=== PATIENT | female | born 1965 | race Caucasian/White ===

== ENCOUNTER 2017-04-18 17:02 | Emergency (ER) | payer MEDICARE, MEDICAID ==
[~2017-04-18] VITALS: Ht 175.3 cm; Wt 122.5 kg
[~2017-04-18 17:02] MED LIST: ALBU17AE3 IH; AMIT100T2 PO; AMIT50TA3 PO; BLAC80CA PO; CEPH500C PO; CIPR-17 PO; CLOT45CR28 VG; CPR500T PO; CYCL10TA9 PO; DICL75TA2 PO; DULO30CA3 PO; FLT05NA16 NSEACH; FLUC100T PO; FURO20TA4 PO; FURO40TA4 PO; GABA-486 PO; GABA-488 PO; GBPN300C; GLIP10TA13 PO; HYDR-757 PO; HYDR1TAB PO; IBUP-30 PO; INSU100I14 SC; INSU100I14 SQ; INSU100I16 SQ; INSU100I5 SC; LEVE1U SQ; LEVO500T78 PO; LIRA0.6P SQ; LISI-596 PO; LISI10TA2; LSNP10T PO; MECL12.579 PO; MELO-195 PO; METF-380 PO; NITR100C3 PO; OMEG1CAP51 PO; PANT40TA PO; PARO20TA4 PO; PHEN100T17 PO; PHEN200T27 PO; POTA10TA36 PO; PREG50C PO; PRV20T PO; RABE20TA PO; RABE20TA27 PO; SULF-222 PO; TRAM50TA2 PO; anti-depressant
--- OUTSIDE RECORDS SUMMARY | 2017-04-18 17:08 | XMS REPORT ---
Author Author ALBIN RENAE Organization [employer] Address Unknown Phone Unavailable Care Team Providers Care President Financial Institution Name Role Phone ALBIN RENAE CP Unavailable Allergies No Known Allergies Problems Problem Type Condition ICD-9 Code Onset Dates Condition Status Problem Diabetes with neurological manifestations, type II or unspecified type , uncontrolled 250.62 Active Problem Dermatophytosis of foot 110.4 Active Problem Insomnia, unspecified 780.52 Active Problem Hypertension 401.9 Active Problem Diabetes with renal manifestations, type II or unspecified type, uncontrolled 250.42 Active Problem Type 2 diabetes mellitus with pressure callus 250.80 Active Problem Dyspepsia and other specified disorders of function of stomach 536.8 Active Problem Other malaise and fatigue 780.79 Active Problem Coronary atherosclerosis of unspecified type of vessel, [place] or graft 414.00 Active Problem Polyneuropathy in diabetes 357.2 Active Problem 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
--- OUTSIDE RECORDS SUMMARY | 2017-04-18 17:08 | XMS REPORT ---
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 Active Problem Polyneuropathy in diabetes 357.2 Active Problem Dyspepsia and other specified disorders of function of stomach 536.8 Active Problem Diabetes with renal manifestations, type II or unspecified type, uncontrolled 250.42 Active Problem Coronary atherosclerosis of unspecified type of vessel, [place] or graft 414.00 Active Problem 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
--- OUTSIDE RECORDS SUMMARY | 2017-04-18 17:08 | XMS REPORT ---
Author Author ALBIN RENAE [facility] eClinicalWorks Address Unknown Phone Unavailable Care Team Providers Care Sole Assessor Name Role Phone ALBIN RENAE CP Unavailable Allergies No Known Allergies Problems Problem Type Condition Code Onset Dates Condition Status Assessment 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 Active Assessment intermission coordinator 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 Active Problem Essential hypertension I10 Active Problem Dyspepsia R10.13 Active Problem shelter 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 Active Problem Anxiety F41.9 Active Problem 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
--- OUTSIDE RECORDS SUMMARY | 2017-04-18 17:08 | XMS REPORT ---
Author Author ALBIN RENAE [facility] eClinicalWorks Address Unknown Phone Unavailable Care Team Providers Care Universal Grinder Tool Name Role Phone ALBIN RENAE CP Unavailable Allergies, Adverse Reactions, Alerts Substance Reaction Event Type Morphine Sulfate Info Not Available Drug Allergy Dilaudid Info Not Available Drug Allergy Aspirin convulsions Drug Allergy Influenza Virus Vaccine hives Drug Allergy Amlodipine 5 Mg Tablet orthostatic hypotension. Non Drug Allergy Metformin 500 Mg Tablet,er Augusto.retention 24 Hr diarrhea Non Drug Allergy Problems Problem Type Condition Code Onset Dates Condition Status Problem Dyspepsia R10.13 Active Problem retirement 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 Active Problem Essential hypertension I10 Active Problem Foot swelling M79.89 Active Problem Stress incontinence in female N39.3 Active Problem Cough R05 Active Problem Skin infection L08.9 Active Problem Allergic rhinitis J30.9 Active Problem Non-healing skin lesion L98.9 Active Problem Type 2 diabetes mellitus with other skin ulcer E11.622 Active Assessment Type 2 diabetes mellitus with other skin ulcer E11.622 Active Assessment Anxiety F41.9 Active Assessment Essential hypertension I10 Active Assessment Cough R05 Active Problem 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 Active Problem Anxiety F41.9 Active Assessment Chronic pain G89.29 Active Problem Chronic pain G89.29 Active Assessment 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 Active Problem CAD (coronary artery disease) I25.10 Active Medications Medication Code System Code Instructions Start Date End Date Status Dosage Cyclobenzaprine HCl [facility] [address]-09 10 mg Orally Three times a day 1 tablet HydrOXYzine HCl [facility] 22421053937 50MG Orally 2 times a day prn TAKE ONE TABLET BY MOUTH TWICE DAILY NEEDED FOR ANXIETY Multi Complete [facility] 45668-[address]37 Orally not defined Lyrica [facility] [address]-49 150 MG Orally Three times a day 1 capsule Actos [facility] [address]-51 30 MG Orally Once a day 1 tablet Glimepiride [facility] 40474896836 4 MG Orally 2 times a day 1 tablet Amitriptyline HCl [facility] [address]-37 50 MG Orally Once a day at night 1 tablet NovoLog Flexpen [facility] [address]-01 100 UNIT/ML Subcutaneous 3 times a day 50 units VESIcare [facility] [address]-54 5 mg Orally Once a day Jun 26, 2016 1 tablet Omeprazole [facility] 21950534972 40 MG TAKE ONE CAPSULE BY MOUTH ONCE DAILY HydrOXYzine HCl [facility] 61612259542 50 MG TAKE ONE TABLET BY MOUTH TWICE DAILY NEEDED FOR ANXIETY Losartan Potassium [facility] [address]-78 25 MG Orally Once a day February 23, 2016 1 tablet Tramadol HCl [facility] [address]-04 50 MG Orally Once a day PRN-must last 28 days 1 tablet as needed Duloxetine HCl [facility] 74119968625 30MG Orally Once a day 1 capsule [place] [facility] [address]-77 31G X 6 MM as directed with insulin Inject Levemir Flexpen [facility] 0 100 UNIT/ML Subcutaneous 2 times a day 85units Cranberry [facility] [address]87 300 MG Orally not defined Fluticasone Propionate [facility] [address]-67 50 MCG/ACT Nasally Once a day 1 spray in each nostril Test strips NDC 0 Test Strips ICD 250.0 3 times a day test blood sugar Procedures Procedure Coding System Code Date CHEST X-RAY CPT-4 59997 February 23, 2016 LAB NOT BILLED [facility] CPT-4 NOBLL February 23, 2016 GLYCATED HEMOGLOBIN TEST CPT-4 49578 February 23, 2016 Office Visit, Est Pt., Level 5 CPT-4 78951 February 23, 2016 [facility] VISIT ESTABLISHED PATIENT CPT-4 G0467 February 23, 2016 VENIPUNCT, ROUTINE* CPT-4 68567 February 23, 2016 Vital Signs Date/Time: February 23, 2016 Cardiac Monitoring Heart Rate 78 bpm Weight 247.0 lbs Height 68 in Blood Pressure Diastolic 78 mmHg Blood Pressure Systolic 136 mmHg Results No Known Results Summary Purpose eClinicalWorks Submission
--- OUTSIDE RECORDS SUMMARY | 2017-04-18 17:08 | XMS REPORT ---
Author Author ALBNI RENAE Organization [employer] Address Unknown Phone Unavailable Care Team Providers Care Oil Field Laborer Name Role Phone ALBIN RENAE CP Unavailable Allergies No Known Allergies Problems Problem Type Condition Code Onset Dates Condition Status Problem Anxiety F41.9 Active Problem 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 Active Problem Allergic rhinitis J30.9 Active Problem [facility] 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 Active Problem Skin infection L08.9 Active Problem CAD (coronary artery disease) I25.10 Active Problem Chronic pain G89.29 Active Problem Essential hypertension I10 Active Problem Dyspepsia R10.13 Active Medications Medication Code System Code Instructions Start Date End Date Status Dosage Levemir Flexpen [facility] 0 100 UNIT/ML Subcutaneous 2 times a day 80units NovoLog Flexpen [facility] [address]-95 100 UNIT/ML Subcutaneous 3 times a day 45-50 units Results No Known Results Summary Purpose eClinicalWorks Submission
--- OUTSIDE RECORDS SUMMARY | 2017-04-18 17:08 | XMS REPORT ---
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
--- OUTSIDE RECORDS SUMMARY | 2017-04-18 17:08 | XMS REPORT ---
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 Active Assessment Allergic rhinitis J30.9 Active Assessment Anxiety F41.9 Active Problem oysterman 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 Active Problem Essential hypertension I10 Active Problem Allergic rhinitis J30.9 Active Problem Chronic pain G89.29 Active Problem Anxiety F41.9 Active Problem Dyspepsia R10.13 Active Problem CAD (coronary artery disease) I25.10 Active Medications Medication Code System Code Instructions Start Date End Date Status Dosage Lyrica [facility] [address]-50 150 MG Orally Three times a day 1 capsule Tramadol HCl [facility] [address]-43 50 MG Orally Once a day PRN-must last 28 days Jun 16, 2015 1 tablet as needed NovoLog Flexpen [facility] [address]-46 100 UNIT/ML Subcutaneous 3 times a day 44 units Fluticasone Propionate [facility] [address]-52 50 MCG/ACT Nasally Once a day Aug 18, 2015 1 spray in each nostril Levemir Flexpen [place] 0 100 UNIT/ML Subcutaneous 2 times a day 67 units Lisinopril [facility] 33209324679 10MG Orally Once a day 1 tablet Amitriptyline HCl [facility] [address]-22 25 MG Orally Once a day at night Jun 1 tablet Glimepiride [facility] [address]-94 4 MG Orally twice per day take 1 tablet Meclizine HCl [facility] 80900960971 12.5MG TAKE ONE TABLET BY MOUTH THREE TIMES DAILY NEEDED. Test strips [facility] 0 Test Strips ICD 250.0 3 times a day May 02, 2015 test blood sugar HydrOXYzine HCl [facility] 27669246429 50MG Orally 2 times a day prn TAKE ONE TABLET BY MOUTH TWICE DAILY NEEDED FOR ANXIETY Omeprazole [facility] [address]-80 40 MG Orally Once a day Apr 14, 2015 1 capsule Duloxetine HCl [facility] 69146675405 30MG Orally Once a day 1 capsule VESIcare [facility] [address]-49 5 MG Orally Once a day 1 tablet Procedures Procedure Coding System Code Date Office Visit, Est Pt., Level 3 CPT-4 16751 Aug 18, 2015 [facility] VISIT ESTABLISHED PATIENT CPT-4 G0467 Aug 18, 2015 Vital Signs Date/Time: Aug 18, 2015 Temperature 97.6 F Weight 233.1 lbs Height 68 in BMI 35.44 Index Blood Pressure Diastolic 78 mmHg Blood Pressure Systolic 124 mmHg Cardiac Monitoring Heart Rate 94 bpm Results No Known Results Summary Purpose eClinicalWorks Submission
--- OUTSIDE RECORDS SUMMARY | 2017-04-18 17:08 | XMS REPORT ---
Author Author ALBIN RENAE [facility] eClinicalWorks Address Unknown Phone Unavailable Care Team Providers Care Digital Content Marketing Manager Name Role Phone ALBIN RENAE CP Unavailable Allergies No Known Allergies Problems Problem Type Condition Code Onset Dates Condition Status Problem Skin infection L08.9 Active Problem Non-healing skin lesion L98.9 Active Problem Type 2 diabetes mellitus with other skin ulcer E11.622 Active Problem Atrial enlargement, left I51.7 Active Problem Left ventricular enlargement I51.7 Active Problem Pulmonary HTN I27.2 Active Problem Foot swelling M79.89 Active Problem Stress incontinence in female N39.3 Active Problem Ulcer of right lower leg, with unspecified severity L97.919 Active Problem Cough R05 Active Problem 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
--- OUTSIDE RECORDS SUMMARY | 2017-04-18 17:09 | XMS REPORT ---
Author Author ALBIN RENAE [facility] eClinicalWorks Address Unknown Phone Unavailable Care Team Providers Care Court Administrator Name Role Phone ALBIN RENAE CP Unavailable [...] Active Problem Chronic pain G89.29 Active Problem termite inspector 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 Active Problem CAD (coronary artery disease) I25.10 Active Problem Allergic rhinitis J30.9 Active Medications No Known Medications Results No Known Results Summary Purpose eClinicalWorks Submission
--- OUTSIDE RECORDS SUMMARY | 2017-04-18 17:09 | XMS REPORT ---
Author Author ALBIN RENAE [facility] eClinicalWorks Address Unknown Phone Unavailable Care Team Providers Care International Recruiter Name Role Phone ALBIN RENAE CP Unavailable Allergies No Known Allergies Problems Problem Type Condition Code Onset Dates Condition Status Problem Anxiety F41.9 Active Problem CAD (coronary artery disease) I25.10 Active Problem Chronic pain G89.29 Active Problem 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 Active Problem Type 2 diabetes mellitus with other skin ulcer E11.622 Active Problem Skin infection L08.9 Active Problem Non-healing skin lesion L98.9 Active Problem Essential hypertension I10 Active Problem Dyspepsia R10.13 Active Problem Allergic rhinitis J30.9 Active Problem assisted 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 Active Medications No Known Medications Results No Known Results Summary Purpose eClinicalWorks Submission
--- OUTSIDE RECORDS SUMMARY | 2017-04-18 17:09 | XMS REPORT ---
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
--- OUTSIDE RECORDS SUMMARY | 2017-04-18 17:09 | XMS REPORT ---
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
--- OUTSIDE RECORDS SUMMARY | 2017-04-18 17:09 | XMS REPORT ---
Author Author ALBIN RENAE Organization [employer]ClinicalWorks Address Unknown Phone Unavailable Care Team Providers Care Financial Secretary Name Role Phone ALBIN RENAE CP Unavailable Allergies No Known Allergies Problems Problem Type Condition ICD-9 Code Onset Dates Condition Status Problem Diabetes with neurological manifestations, type II or unspecified type , uncontrolled 250.62 Active Problem Insomnia, unspecified 780.52 Active Problem Diabetes with other specified manifestations, type II or unspecified type, not stated as uncontrolled 250.80 Active Problem Diabetes with renal manifestations, type II or unspecified type, uncontrolled 250.42 Active Problem Coronary atherosclerosis of unspecified type of vessel, [place] or graft 414.00 Active Problem Hypertension 401.9 Active Problem Other malaise and fatigue 780.79 Active Problem Dermatophytosis of foot 110.4 Active Problem Polyneuropathy in diabetes 357.2 Active Problem Dyspepsia and other specified disorders of function of stomach 536.8 Active Problem 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
--- OUTSIDE RECORDS SUMMARY | 2017-04-18 17:09 | XMS REPORT ---
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
--- OUTSIDE RECORDS SUMMARY | 2017-04-18 17:09 | XMS REPORT ---
Author Author ALBIN RENAE [facility] eClinicalWorks Address Unknown Phone Unavailable Care Team Providers Care Wellhead Pumper Name Role Phone ALBIN RENAE CP Unavailable Allergies, Adverse Reactions, Alerts Substance Reaction Event Type Morphine Sulfate Info Not Available Drug Allergy Dilaudid Info Not Available Drug Allergy Aspirin convulsions Drug Allergy Influenza Virus Vaccine hives Drug Allergy Metformin 500 Mg Tablet,er Augusto.retention 24 Hr diarrhea Non Drug Allergy Amlodipine 5 Mg Tablet orthostatic hypotension. Non Drug Allergy Problems Problem Type Condition Code Onset Dates Condition Status Assessment Left ventricular enlargement I51.7 Active Assessment Atrial enlargement, left I51.7 Active Assessment Hypoxia R09.02 Active Problem [facility] 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 Active Assessment Pulmonary HTN I27.2 Active Problem Allergic rhinitis J30.9 Active Assessment Ulcer of right lower leg, with unspecified severity L97.919 Active Problem Skin infection L08.9 Active Problem Non-healing skin lesion L98.9 Active Problem Type 2 diabetes mellitus with other skin ulcer E11.622 Active Problem Atrial enlargement, left I51.7 Active Problem Left ventricular enlargement I51.7 Active Assessment Chronic pain G89.29 Active Assessment Anxiety F41.9 Active Problem Pulmonary HTN I27.2 Active Assessment Essential hypertension I10 Active Problem Foot swelling M79.89 Active Problem Stress incontinence in female N39.3 Active Problem Ulcer of right lower leg, with unspecified severity L97.919 Active Problem Cough R05 Active Problem 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 Active Problem Anxiety F41.9 Active Assessment Type 2 diabetes mellitus with other skin ulcer E11.622 Active Assessment 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 Active Problem Dyspepsia R10.13 Active Problem Essential hypertension I10 Active Problem Chronic pain G89.29 Active Problem CAD (coronary artery disease) I25.10 Active Medications Medication Code System Code Instructions Start Date End Date Status Dosage Fluticasone Propionate [facility] [address]-99 50 MCG/ACT Nasally Once a day 1 spray in each nostril Multi Complete [facility] [address]151 Orally not defined Cranberry [facility] [address]83-[address]16 300 MG Orally not defined Levemir Flexpen ND 0 100 UNIT/ML Subcutaneous 2 times a day 85units Omeprazole [facility] 17185374878 40 MG TAKE ONE CAPSULE BY MOUTH ONCE DAILY Lyrica [facility] [address]-09 150 MG Orally Three times a day 1 capsule Duloxetine HCl [facility] 18725179274 30MG Orally Once a day 1 capsule VESIcare [facility] [address]-57 5 mg Orally Once a day Jun 26, 2016 1 tablet Pen [place] [facility] [address]-19 31G X 6 MM as directed with insulin Inject [place] [facility] [address]-61 5-325 MG Orally 3 times a day 1 tablet as needed Oxygen NDC 0 2 PRN not defined Amitriptyline HCl [facility] [address]-44 50 MG Orally Once a day at night 1 tablet Cyclobenzaprine HCl [facility] [address]-18 10 mg Orally Three times a day 1 tablet HydrOXYzine HCl [facility] 85912397611 50MG Orally 2 times a day prn TAKE ONE TABLET BY MOUTH TWICE DAILY NEEDED FOR ANXIETY Losartan Potassium [facility] [address]-14 50 MG Orally Once a day 1 tablet Actos [facility] [address]-26 30 MG Orally Once a day 1 tablet Lasix [facility] [address]-26 40 mg Orally twice a day 1 tablet Test strips NDC 0 Test Strips ICD 250.0 3 times a day test blood sugar Glimepiride [facility] 83093975505 4 MG Orally 2 times a day 1 tablet NovoLog Flexpen [facility] [address]-22 100 UNIT/ML Subcutaneous 3 times a day 50 units Procedures Procedure Coding System Code Date MEASURE BLOOD OXYGEN LEVEL CPT-4 91511 Jun 14, 2016 No Charge CPT-4 14550 Jun 14, 2016 GLYCATED HEMOGLOBIN TEST CPT-4 20348 Jun 14, 2016 [facility] VISIT ESTABLISHED PATIENT CPT-4 G0467 Jun 14, 2016 [facility] C[facility]-4 NOBLL Jun 14, 2016 VENIPUNCT, ROUTINE* CPT-4 76290 Jun 14, 2016 Office Visit, Est Pt., Level 5 CPT-4 27291 Jun 14, 2016 Vital Signs Date/Time: Jun 14, 2016 Cardiac Monitoring Heart Rate 90 bpm Weight 252 lbs Height 68 in BMI 38.31 Index Oximetry w/ oxygen:98 % Blood Pressure Diastolic 70 mmHg Blood Pressure Systolic 118 mmHg Results Name Result Date Reference Range Unit Abnormality Flag ROUTINE VENIPUNCTURE A1C (IN HOUSE) ----Exp date 05/11/201820160614 ----Previous A1c 14.0 20160614 ----Lot [id number] ----A1C IN HOUSE 11.6 20160614 4.3 - 5.6 % Summary Purpose eClinicalWorks Submission
--- OUTSIDE RECORDS SUMMARY | 2017-04-18 17:09 | XMS REPORT ---
Author Author ALBIN RENAE [facility] Address [address] [place] [address] Care Team Providers Care Neonatal Icu Coordinator Name Role Phone ALBIN RENAE Unavailable PROBLEMS Type Condition ICD9-CM Code QFA38-FP Code Onset Dates Condition Status SNOMED Code Problem detention 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 Active 764609473 Problem Skin infection L08.9 Active 868405606 Problem Allergic rhinitis J30.9 Active 28123185 Problem Ulcer of right lower leg, with unspecified severity L97.919 Active 462197962 Problem Cough R05 Active 460102143 Problem Non-healing skin lesion L98.9 Active 40277985 Problem Type 2 diabetes mellitus with other skin ulcer E11.622 Active 19923607 Problem Foot swelling M79.89 Active 112523415 Problem Stress incontinence in female N39.3 Active 45080716 Assessment 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 Apr, Active 264325350 Problem Chronic pain G89.29 Active 58532509 Problem CAD (coronary artery disease) I25.10 Active 37478187 Problem 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 Active 43289923 Problem Dyspepsia R10.13 Active 096190144 Problem Anxiety F41.9 Active 52406349 Problem Essential hypertension I10 Active 55849218 ALLERGIES Substance Reaction Event Type Date Status Morphine Sulfate Unknown Drug Allergy Apr, Active Dilaudid Unknown Drug Allergy Apr, Active Aspirin convulsions Drug Allergy Apr, Active Influenza Virus Vaccine hives Drug Allergy Apr, Active Amlodipine 5 Mg Tablet orthostatic hypotension. Non Drug Allergy Apr, Active Metformin 500 Mg Tablet,er Augusto.retention 24 Hr diarrhea Non Drug Allergy Apr, Active SOCIAL HISTORY No smoking Hx information available PLAN OF CARE VITAL SIGNS Height 68 in 2016-04-19 Weight 256.0 lbs 2016-04-19 Heart Rate 90 bpm 2016-04-19 Respiratory Rate 24 2016-04-19 BMI 38.92 kg/m2 2016-04-19 Blood pressure systolic 122 mmHg 2016-04-19 Blood pressure diastolic 70 mmHg 2016-04-19 MEDICATIONS Medication Instructions Dosage Frequency Start Date End Date Duration Status Multi Complete Active Amitriptyline HCl 50 MG Orally Once a day at night 1 tablet Active VESIcare 5 mg Orally Once a day 1 tablet 24h 15 Jun, 2016 30 days Active Cranberry 300 MG Active Fluticasone Propionate 50 MCG/ACT Nasally Once a day 1 spray in each nostril 24h 30 day(s) Active Test strips Test Strips ICD 250.0 3 times a day test blood sugar 8h Active Duloxetine HCl 30MG Orally Once a day 1 capsule 24h Active HydrOXYzine HCl 50 MG TAKE ONE TABLET BY MOUTH TWICE DAILY NEEDED FOR ANXIETY 30 Active Levemir Flexpen 100 UNIT/ML Subcutaneous 2 times a day 85units 12h Active Losartan Potassium 50 MG Orally Once a day 1 tablet 24h 30 day(s) Active Pen [place] 31G X 6 MM Inject Active Glimepiride 4 MG Orally 2 times a day 1 tablet 12h 30 Active Cyclobenzaprine HCl 10 mg Orally Three times a day 1 tablet 8h Active NovoLog Flexpen 100 UNIT/ML Subcutaneous 3 times a day 50 units 8h Active HydrOXYzine HCl 50MG Orally 2 times a day prn TAKE ONE TABLET BY MOUTH TWICE DAILY NEEDED FOR ANXIETY 30 Active [place] 5-325 MG Orally 3 times a day 1 tablet as needed 8h Active Omeprazole 40 MG TAKE ONE CAPSULE BY MOUTH ONCE DAILY 30 Active Lyrica 150 MG Orally Three times a day 1 capsule 8h Active Actos 30 MG Orally Once a day 1 tablet 24h 30 day(s) Active RESULTS Name Result Date Reference Range MICROALBUMIN, URINE (IN HOUSE) 2016-04-19 MICROALBUMIN Lot # [id number] Exp date 03/2017 Clarity cloudy Color yellow ALB 80 CRE 50 A:C (IN HOUSE) >300mg/g Control Control Lot # Exp date PROCEDURES Procedure Date Ordered Related Diagnosis Body Site MICROALBUMIN, SEMIQUANT Apr 19, 2016 [facility] VISIT ESTABLISHED PATIENT Apr 19, 2016 Office Visit, Est Pt., Level 5 Apr 19, 2016 IMMUNIZATIONS No Known Immunizations
--- OUTSIDE RECORDS SUMMARY | 2017-04-18 17:09 | XMS REPORT ---
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
--- OUTSIDE RECORDS SUMMARY | 2017-04-18 17:09 | XMS REPORT ---
Author Author ALBIN RENAE Organization eClinicalWorks Address Unknown Phone Unavailable Care Team Providers Care Credit Risk Management Director Name Role Phone ALBIN RENAE CP Unavailable [...] Coronary atherosclerosis of unspecified type of vessel, [place] or graft 414.00 Active Problem Hypertension 401.9 [...] Start Date End Date Status Dosage Lyrica [facility] [address]-89 75 MG Orally Twice a day-dx: 357.2 January 21, 2015 1 capsule Results No Known Results Summary Purpose eClinicalWorks Submission
--- OUTSIDE RECORDS SUMMARY | 2017-04-18 17:09 | XMS REPORT ---
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 Active Problem Edema 782.3 Active Problem Depressive disorder, not elsewhere classified 311 Active Assessment 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 Active Problem Diabetes with neurological manifestations, type II or unspecified type , uncontrolled 250.62 Active Medications Medication Code System Code Instructions Start Date End Date Status Dosage Lyrica [facility] [address]-33 100 MG Orally Three times a day 1 capsule Levemir Flexpen [facility] [address]-28 100 UNIT/ML Subcutaneous 2 times a day 67 units Results No Known Results Summary Purpose eClinicalWorks Submission
--- OUTSIDE RECORDS SUMMARY | 2017-04-18 17:09 | XMS REPORT ---
Author Author ALBIN RENAE Organization eClinicalWorks Address Unknown Phone Unavailable Care Team Providers Care Getter Filler Name Role Phone ALBIN RENAE CP Unavailable [...] Coronary atherosclerosis of unspecified type of vessel, [place] or graft 414.00 Active Problem Hypertension 401.9 [...] Instructions Start Date End Date Status Dosage HydrOXYzine HCl [facility] 73029273542 50MG Orally 2 times a day prn TAKE ONE TABLET BY MOUTH TWICE DAILY NEEDED FOR ANXIETY Results No Known Results Summary Purpose eClinicalWorks Submission
--- OUTSIDE RECORDS SUMMARY | 2017-04-18 17:10 | XMS REPORT ---
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 Active Problem Edema 782.3 Active Assessment Arthritis M19.90 Active Problem Depressive disorder, not elsewhere classified 311 Active Assessment Neuropathy G62.9 Active Problem Diabetes with neurological manifestations, type II or unspecified type , uncontrolled 250.62 Active Medications Medication Code System Code Instructions Start Date End Date Status Dosage Amitriptyline HCl [facility] [address]-04 25 MG Orally Once a day at night Jun 1 tablet Levemir Flexpen [facility] [address]-14 100 UNIT/ML Subcutaneous 2 times a day 67 units NovoLog Flexpen [facility] [address]-34 100 UNIT/ML Subcutaneous 3 times a day 44 units Omeprazole [facility] [address]-05 40 MG Orally Once a day Apr 14, 2015 1 capsule Tramadol HCl [facility] [address]-26 50 MG Orally Once a day PRN Jun 16, 2015 1 tablet as needed Lisinopril [facility] 20703957798 10MG Orally Once a day 1 tablet Glimepiride [facility] [address]-98 4 MG Orally twice per day take 1 tablet HydrOXYzine HCl [facility] 28905802479 50MG Orally 2 times a day prn TAKE ONE TABLET BY MOUTH TWICE DAILY NEEDED FOR ANXIETY Test strips NDC 0 Test Strips ICD 250.0 3 times a day May 02, 2015 test blood sugar Lyrica [facility] [address]-63 100 MG Orally Three times a day 1 capsule Duloxetine HCl [facility] 12949515433 30MG Orally Once a day 1 capsule Procedures Procedure Coding System Code Date [facility] VISIT ESTABLISHED PATIENT CPT-4 G0467 Jun 16, 2015 Office Visit, Est Pt., Level 4 CPT-4 41943 Jun 16, 2015 [facility] CPT-4 NOBLL Jun 16, 2015 No Charge CPT-4 22010 Jun 16, 2015 Vital Signs Date/Time: Jun 16, 2015 Temperature 97.6 F Weight 226.6 lbs Height 68 in BMI 34.45 Index Blood Pressure Diastolic 62 mmHg Blood Pressure Systolic 90 mmHg Cardiac Monitoring Heart Rate 90 bpm Results No Known Results Summary Purpose eClinicalWorks Submission
--- OUTSIDE RECORDS SUMMARY | 2017-04-18 17:10 | XMS REPORT ---
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
--- OUTSIDE RECORDS SUMMARY | 2017-04-18 17:10 | XMS REPORT ---
Author Author ALBIN RENAE [facility] eClinicalWorks Address Unknown Phone Unavailable Care Team Providers Care Hand Former Helper Name Role Phone ALBIN RENAE CP [...] Condition Code Onset Dates Condition Status Assessment Essential hypertension I10 Active Assessment 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 Active Assessment Dyspepsia R10.13 Active Problem Essential hypertension I10 Active Problem Dyspepsia R10.13 Active Problem assisted 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 Active Problem Anxiety F41.9 Active Problem 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 Active Problem CAD (coronary artery disease) I25.10 Active Problem Chronic pain G89.29 Active Assessment Anxiety F41.9 Active Assessment Chronic pain G89.29 Active Assessment Pain of left lower leg M79.662 Active Assessment CAD (coronary artery disease) I25.10 Active Assessment Dysuria R30.0 Active Assessment assisted 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 Active Medications Medication Code System Code Instructions Start Date End Date Status Dosage Test strips NDC 0 Test Strips ICD 250.0 3 times a day May 02, 2015 test blood sugar Tramadol HCl [facility] [address]-51 50 MG Orally Once a day PRN Jun 16, 2015 1 tablet as needed Levemir Flexpen [place] 0 100 UNIT/ML Subcutaneous 2 times a day 67 units Glimepiride [facility] [address]-05 4 MG Orally twice per day take 1 tablet NovoLog Flexpen [facility] [address]-36 100 UNIT/ML Subcutaneous 3 times a day 44 units Omeprazole [facility] [address]-37 40 MG Orally Once a day Apr 14, 2015 1 capsule HydrOXYzine HCl [facility] 78808992120 50MG Orally 2 times a day prn TAKE ONE TABLET BY MOUTH TWICE DAILY NEEDED FOR ANXIETY Amitriptyline HCl [facility] [address]-60 25 MG Orally Once a day at night Jun 1 tablet Lyrica [facility] [address]-92 100 MG Orally Three times a day 1 capsule Lisinopril [facility] 97537783708 10MG Orally Once a day 1 tablet Duloxetine HCl [facility] 37404707142 30MG Orally Once a day 1 capsule Procedures Procedure Coding System Code Date GLYCATED HEMOGLOBIN TEST CPT-4 54499 Jul 14, 2015 [facility] VISIT ESTABLISHED PATIENT CPT-4 G0467 Jul 14, 2015 URINALYSIS, AUTO, W/O SCOPE CPT-4 95449 Jul 14, 2015 Office Visit, Est Pt., Level 4 CPT-4 04347 Jul 14, 2015 Vital Signs Date/Time: Jul 14, 2015 Temperature 97.0 F Weight 231.9 lbs Height 68 in BMI 35.26 Index Blood Pressure Diastolic 72 mmHg Blood Pressure Systolic 128 mmHg Cardiac Monitoring Heart Rate 92 bpm Results No Known Results Summary Purpose eClinicalWorks Submission
--- OUTSIDE RECORDS SUMMARY | 2017-04-18 17:10 | XMS REPORT ---
Author Author ALBIN RENAE Organization eClinicalWorks Address Unknown Phone Unavailable Care Team Providers Care Electrician Helper Powerhouse Name Role Phone ALBIN RENAE CP Unavailable Allergies No Known Allergies Problems Problem Type Condition Code Onset Dates Condition Status Problem Anxiety F41.9 Active Problem CAD (coronary artery disease) I25.10 Active Problem Chronic pain G89.29 Active Assessment 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 Active Problem 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 Active Problem Type 2 diabetes mellitus with other skin ulcer E11.622 Active Problem Skin infection L08.9 Active Problem Non-healing skin lesion L98.9 Active Problem Essential hypertension I10 Active Problem Dyspepsia R10.13 Active Problem Allergic rhinitis J30.9 Active Problem pediatric sports medicine specialist 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
--- OUTSIDE RECORDS SUMMARY | 2017-04-18 17:10 | XMS REPORT ---
Author Author ALBIN RENAE [facility] eClinicalWorks Address Unknown Phone Unavailable Care Team Providers Care Gift Shop Assistant Name Role Phone ALBIN RENAE CP Unavailable Allergies, Adverse Reactions, Alerts Substance Reaction Event Type Morphine Sulfate Info Not Available Drug Allergy Dilaudid Info Not Available Drug Allergy Aspirin convulsions Drug Allergy Influenza Virus Vaccine hives Drug Allergy Amlodipine 5 Mg Tablet orthostatic hypotension. Non Drug Allergy Metformin 500 Mg Tablet,er Augusto.retention 24 Hr diarrhea Non Drug Allergy Problems Problem Type Condition ICD-9 Code Onset [...] Coronary atherosclerosis of unspecified type of vessel, [place] or graft 414.00 Active Problem Polyneuropathy in diabetes 357.2 Active Assessment Anxiety 300.00 Active Assessment Hypertension 401.9 Active Assessment Type 2 diabetes mellitus with pressure callus 250.80 Active Assessment GERD (gastroesophageal reflux disease) 530.81 Active Assessment Diabetes with renal manifestations, type II or unspecified type, uncontrolled 250.42 Active Problem 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 Active Assessment Polyneuropathy in diabetes 357.2 Active Problem Edema 782.3 Active Assessment Coronary atherosclerosis of unspecified type of vessel, [place] or graft 414.00 Active Problem Depressive disorder, not elsewhere classified 311 Active Medications Medication Code System Code Instructions Start Date End Date Status Dosage HydrOXYzine HCl [facility] 90595979750 50MG Orally 2 times a day prn TAKE ONE TABLET BY MOUTH TWICE DAILY NEEDED FOR ANXIETY Glimepiride [facility] [address]-20 4 MG Orally twice per day take 1 tablet Lisinopril [facility] 34305944817 10MG Orally Once a day 1 tablet Lyrica [facility] [address]-28 100 MG Orally Twice a day 1 capsule Duloxetine HCl [facility] 87345566026 30MG Orally Once a day 1 capsule Levemir Flexpen [facility] [address]-95 100 UNIT/ML Subcutaneous 2 times a day 45 units NovoLog Flexpen [facility] [address]-40 100 UNIT/ML Subcutaneous not defined Omeprazole [facility] [address]-33 40 MG Orally Once a day Apr 14, 2015 1 capsule Procedures Procedure Coding System Code Date Office Visit, Est Pt., Level 4 CPT-4 48532 Apr 14, 2015 Vital Signs Date/Time: Apr 14, 2015 Temperature 97.3 F Weight 233.7 lbs Height 68 in BMI 35.53 Index Blood Pressure Diastolic 70 mmHg Blood Pressure Systolic 126 mmHg Cardiac Monitoring Heart Rate 100 bpm Results No Known Results Summary Purpose eClinicalWorks Submission
--- OUTSIDE RECORDS SUMMARY | 2017-04-18 17:10 | XMS REPORT ---
Author Author ALBIN RENAE Organization [facility] Address [address] [place] [address] Care Team Providers Care Dishing Machine Operator Name Role Phone ALBIN RENAE Unavailable PROBLEMS Type Condition ICD9-CM Code HYY33-[id number] Code Onset Dates Condition Status SNOMED Code Problem Non-healing skin lesion L98.9 Active 32400256 Problem Foot swelling M79.89 Active 950684169 Problem Stress incontinence in female N39.3 Active 25551791 Problem Neuropathy G62.9 Active 067697671 Problem Pulmonary HTN I27.2 Active 65229748 Problem Ulcer of right lower leg, with unspecified severity L97.919 Active 660402547 Problem Cough R05 Active 424695399 Problem Atrial enlargement, left I51.7 Active 90851813050276 Problem Left ventricular enlargement I51.7 Active 290664353 Problem Chronic pain G89.29 Active 63356994 Problem CAD (coronary artery disease) I25.10 Active 83600782 Problem 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 Active 05163115 Problem Anxiety F41.9 Active 94787008 Problem 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 Active 202663421 Problem Allergic rhinitis J30.9 Active 97866435 Problem Dyspepsia R10.13 Active 679535564 Problem Skin infection L08.9 Active 612082837 Problem Essential hypertension I10 Active 41921259 Problem Type 2 diabetes mellitus with other skin ulcer E11.622 Active 24865081 ALLERGIES Unknown Allergies SOCIAL HISTORY No smoking Hx information available PLAN OF CARE VITAL SIGNS MEDICATIONS Medication Instructions Dosage Frequency Start Date End Date Duration Status Lasix 40 mg Orally twice a day 1 tablet 12h 30 days Active Pravastatin Sodium 40 mg Orally Once a day 1 tablet 24h Jun, 30 days Active RESULTS No Results PROCEDURES No Known procedures IMMUNIZATIONS No Known Immunizations
--- OUTSIDE RECORDS SUMMARY | 2017-04-18 17:10 | XMS REPORT ---
Author Author ALBIN RENAE Organization [facility] Address [address] [place] [address] Care Team Providers Care Business Banking Representative Name Role Phone ALBIN RENAE Unavailable PROBLEMS Type Condition ICD9-CM Code UHS19-BC Code Onset Dates Condition Status SNOMED Code Problem Non-healing skin lesion L98.9 Active 06652945 Problem Foot swelling M79.89 Active 002579418 Problem Stress incontinence in female N39.3 Active 43224369 Problem Neuropathy G62.9 Active 877504007 Problem Pulmonary HTN I27.2 Active 49632401 Problem Ulcer of right lower leg, with unspecified severity L97.919 Active 678642444 Problem Cough R05 Active 216394156 Problem Atrial enlargement, left I51.7 Active 47844110113075 Problem Left ventricular enlargement I51.7 Active 968835936 Problem Chronic pain G89.29 Active 01024605 Problem CAD (coronary artery disease) I25.10 Active 91113699 Problem 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 Active 88575493 Problem Anxiety F41.9 Active 56082524 Problem manager 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 Active 779992287 Problem Allergic rhinitis J30.9 Active 47175082 Problem Dyspepsia R10.13 Active 529076391 Problem Skin infection L08.9 Active 757960214 Problem Essential hypertension I10 Active 92599334 Problem Type 2 diabetes mellitus with other skin ulcer E11.622 Active 01018681 ALLERGIES Unknown Allergies SOCIAL HISTORY No smoking [...]
--- OUTSIDE RECORDS SUMMARY | 2017-04-18 17:10 | XMS REPORT ---
Author Author ALBIN RENAE [facility] eClinicalWorks Address Unknown Phone Unavailable Care Team Providers Care Diesel Fitter Mechanic Name Role Phone ALBIN RENAE CP Unavailable [...] Active Problem Allergic rhinitis J30.9 Active Problem retirement 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 Active Medications No Known Medications Results No Known Results Summary Purpose eClinicalWorks Submission
--- OUTSIDE RECORDS SUMMARY | 2017-04-18 17:11 | XMS REPORT ---
Author Author ALBIN RENAE [facility] eClinicalWorks Address Unknown Phone Unavailable Care Team Providers Care Residential Sales Name Role Phone ALBIN RENAE CP Unavailable [...] Active Problem Chronic pain G89.29 Active Problem Type 2 diabetes mellitus with other skin ulcer E11.622 Active Problem Skin infection L08.9 Active Problem Non-healing skin lesion L98.9 Active Problem Essential hypertension I10 Active Problem Dyspepsia R10.13 Active Problem Allergic rhinitis J30.9 Active Problem intermediate 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 Active Assessment Non-healing skin lesion L98.9 Active Assessment Anxiety F41.9 Active Assessment Chronic pain G89.29 Active Assessment Type 2 diabetes mellitus with other skin ulcer E11.622 Active Problem 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 Active Medications Medication Code System Code Instructions Start Date End Date Status Dosage Test strips NDC 0 Test Strips ICD 250.0 3 times a day test blood sugar Fluticasone Propionate [facility] [address]-19 50 MCG/ACT Nasally Once a day 1 spray in each nostril Actos [facility] [address]-97 30 MG Orally Once a day 1 tablet Cranberry [facility] 37345-40535 300 MG Orally not defined Tramadol HCl [facility] [address]-42 50 MG Orally Once a day PRN-must last 28 days 1 tablet as needed Lyrica [facility] [address]-67 150 MG Orally Three times a day 1 capsule HydrOXYzine HCl [facility] 63432217898 50MG Orally 2 times a day prn TAKE ONE TABLET BY MOUTH TWICE DAILY NEEDED FOR ANXIETY Glimepiride [facility] 07577851832 4 MG TAKE ONE TABLET BY MOUTH TWICE DAILY NovoLog Flexpen [facility] [address]-60 100 UNIT/ML Subcutaneous 3 times a day 45-50 units Multi Complete [facility] 39221-23567 Orally not defined Pen [place] [facility] [address]-75 31G X 6 MM as directed with insulin Inject Duloxetine HCl [facility] 62144306302 30MG Orally Once a day 1 capsule Amitriptyline HCl [facility] [address]-93 25 MG Orally Once a day at night 1 tablet VESIcare [facility] [address]-23 5 MG Orally Once a day 1 tablet Levemir Flexpen [facility] 0 100 UNIT/ML Subcutaneous 2 times a day 80units Lisinopril [facility] 97163411672 10MG Orally Once a day 1 tablet Omeprazole [facility] 52239856467 40 MG TAKE ONE CAPSULE BY MOUTH ONCE DAILY Cyclobenzaprine HCl [facility] [address]-20 10 MG Orally Three times a day 1 tablet Procedures Procedure Coding System Code Date Office Visit, Est Pt., Level 4 CPT-4 33529 December 01, 2015 [facility] VISIT ESTABLISHED PATIENT CPT-4 G0467 December 01, 2015 Vital Signs Date/Time: December 01, 2015 Temperature 97.7 F Weight 238.2 lbs Height 68 in BMI 36.21 Index Blood Pressure Diastolic 82 mmHg Blood Pressure Systolic 130 mmHg Cardiac Monitoring Heart Rate 90 bpm Results No Known Results Summary Purpose eClinicalWorks Submission
--- OUTSIDE RECORDS SUMMARY | 2017-04-18 17:11 | XMS REPORT ---
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 Active Problem Cough R05 Active Problem Foot swelling M79.89 Active Problem Ulcer of right lower leg, with unspecified severity L97.919 Active Problem Type 2 diabetes mellitus with other skin ulcer E11.622 Active Problem Skin infection L08.9 Active Problem Stress incontinence in female N39.3 Active Problem Non-healing skin lesion L98.9 Active Problem Anxiety F41.9 Active Problem Chronic pain G89.29 Active Problem CAD (coronary artery disease) I25.10 Active Problem 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 Active Problem Dyspepsia R10.13 Active Medications Medication Code System Code Instructions Start Date End Date Status Dosage [place] [facility] [address]-74 5-325 MG Orally 3 times a day prn must last 28 days 1 tablet as needed Results No Known Results Summary Purpose eClinicalWorks Submission
--- OUTSIDE RECORDS SUMMARY | 2017-04-18 17:11 | XMS REPORT ---
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
--- OUTSIDE RECORDS SUMMARY | 2017-04-18 17:11 | XMS REPORT ---
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
--- OUTSIDE RECORDS SUMMARY | 2017-04-18 17:11 | XMS REPORT ---
Author Author ALBIN RENAE [facility] eClinicalWorks Address Unknown Phone Unavailable Care Team Providers Care Agricultural Economics Teacher Name Role Phone ALBIN RENAE CP Unavailable [...] Active Problem Allergic rhinitis J30.9 Active Problem nursing home 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 Active Problem Cough R05 Active Assessment Essential hypertension I10 Active Problem Foot swelling M79.89 Active Assessment Ulcer of right lower leg, with unspecified severity L97.919 Active Problem Ulcer of right lower leg, with unspecified severity L97.919 Active Problem Type 2 diabetes mellitus with other skin ulcer E11.622 Active Problem Skin infection L08.9 Active Problem Stress incontinence in female N39.3 Active Problem Non-healing skin lesion L98.9 Active Assessment Anxiety F41.9 Active Assessment Chronic pain G89.29 Active Assessment Cough R05 Active Assessment Type 2 diabetes mellitus with other skin ulcer E11.622 Active Problem Anxiety F41.9 Active Problem Chronic pain G89.29 Active Assessment 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 Active Problem CAD (coronary artery disease) I25.10 Active Problem 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 Active Problem Dyspepsia R10.13 Active Medications Medication Code System Code Instructions Start Date End Date Status Dosage HydrOXYzine HCl [facility] 39350053012 50MG Orally 2 times a day prn TAKE ONE TABLET BY MOUTH TWICE DAILY NEEDED FOR ANXIETY [place] [facility] [address]-83 31G X 6 MM as directed with insulin Inject NovoLog Flexpen [facility] [address]-61 100 UNIT/ML Subcutaneous 3 times a day [address] [facility] 23161309574 40 MG TAKE ONE CAPSULE BY MOUTH ONCE DAILY Fluticasone Propionate [facility] [address]-18 50 MCG/ACT Nasally Once a day 1 spray in each nostril Test strips NDC 0 Test Strips ICD 250.0 3 times a day test blood sugar Cranberry [facility] [address]167 300 MG Orally not defined Losartan Potassium [facility] [address]-52 50 MG Orally Once a day February 23, [address] [facility] [address]-35 5-325 MG Orally 2 times a day Mar 22, 2016 1 tablet as needed VESIcare [facility] [address]-97 5 mg Orally Once a day Jun 26, 2016 1 tablet Amitriptyline HCl [facility] [address]-55 50 MG Orally Once a day at night 1 tablet Duloxetine HCl [facility] 77806396637 30MG Orally Once a day [address] [facility] 90316547451 4 MG Orally 2 times a day 1 tablet HydrOXYzine HCl [facility] 29579559919 50 MG TAKE ONE TABLET BY MOUTH TWICE DAILY NEEDED FOR ANXIETY Lyrica [facility] [address]-55 150 MG Orally Three times a day 1 capsule Multi Complete [facility] 56480-[address]84 Orally not defined Levemir Flexpen [place] 0 100 UNIT/ML Subcutaneous 2 times a day 85units Actos [facility] [address]-97 30 MG Orally Once a day 1 tablet Cyclobenzaprine HCl [facility] [address]-58 10 mg Orally Three times a day 1 tablet Procedures Procedure Coding System Code Date Office Visit, Est Pt., Level 4 CPT-4 89567 Mar 22, 2016 [facility] VISIT ESTABLISHED PATIENT CPT-4 G0467 Mar 22, 2016 Vital Signs Date/Time: Mar 22, 2016 Cardiac Monitoring Heart Rate 80 bpm Weight 257.0 lbs Height 68 in BMI 39.07 Index Blood Pressure Diastolic 96 mmHg Blood Pressure Systolic 156 mmHg Results No Known Results Summary Purpose eClinicalWorks Submission
--- OUTSIDE RECORDS SUMMARY | 2017-04-18 17:11 | XMS REPORT ---
Author Author ALBIN RENAE Organization [employer] Address Unknown Phone Unavailable Care Team Providers Care Silo Filler Name Role Phone ALBIN RENAE CP [...] [facility] 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 Active Medications Medication Code System Code Instructions Start Date End Date Status Dosage Levemir Flexpen [facility] 0 100 UNIT/ML Subcutaneous 2 times a day 85units NovoLog Flexpen [facility] [address]-23 100 UNIT/ML Subcutaneous 3 times a day 50 units Results No Known Results Summary Purpose eClinicalWorks Submission
--- OUTSIDE RECORDS SUMMARY | 2017-04-18 17:11 | XMS REPORT ---
Author Author ALBIN RENAE Organization [employer] Address Unknown Phone Unavailable Care Team Providers Care Healthcare Social Worker Name Role Phone ALBIN RENAE CP Unavailable Allergies No Known Allergies Problems Problem Type Condition Code Onset Dates Condition Status Problem Dyspepsia R10.13 Active Problem alf 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 Active Problem [...] E11.42 Active Problem Anxiety F41.9 Active Problem Chronic pain G89.29 Active Problem CAD (coronary artery disease) I25.10 Active Medications Medication Code System Code Instructions Start Date End Date Status Dosage Tramadol HCl [facility] [address]-10 50 MG Orally Once a day PRN-must last 28 days 1 tablet as needed Results No Known Results Summary Purpose eClinicalWorks Submission
--- NOTE | 2017-04-18 19:20 | Diagnostic Imaging Report ---
INDICATION: Patient fell 2 days ago and is having pain to the medial side of the knee. FINDINGS: The alignment is normal. There are mild degenerative changes. There is no fracture or dislocation. The soft tissues are unremarkable. IMPRESSION: Mild degenerative changes, otherwise unremarkable. Dictated by: Dictated on workstation # [id number]
[2017-04-18] MEDS ORDERED: inSUlin (REGULAR) HUMAN 1 UNIT/0.01 ML (CHARGE PER UNIT) SC STA (19:30)
--- NOTE | 2017-04-18 19:32 | ED Lower Extremity ---
General Chief Complaint: General Problems/Pain Stated Complaint: LEFT LEG INJ Nursing Triage Note: Pt reports she has had multiple falls recently due to getting lightheaded when she stands up. Pt reports falling 2 weeks ago and hurting L knee. Pt now c/o L knee pain. Nursing Sepsis Screen: No Definite Risk History of Present Illness Time seen by provider: 18:30 Initial Comments Patient reports left knee pain due to multiple falls over the last month. She reports her neuropathy has made her fall. She sees Dr. Pringle in [place]. She denies any head injuries related to her falls. Pain/Injury Location: left knee Method of Injury: fell Modifying Factors: Improves With Rest Allergies and Home Medications Allergies Coded Allergies: aspirin (Unverified Allergy, Unknown, 03/25/14) influenza virus vacc,specific (Unverified Allergy, Unknown, 07/23/14) morphine (Unverified Allergy, Unknown, 03/25/14) hydromorphone HCl (Unverified Adverse Reaction, Mild, VOMITING, 01/06/11) Home Medications Amitriptyline Hcl 100 Mg Tablet, 100 MG PO DAILY, (Reported) Cephalexin Monohydrate 500 Mg Capsule, 1 EACH PO TID, #30 Ref 0 Prescribed by: LEANN ZIMMERMAN on 03/01/152013 Clotrimazole 45 Gm Cream.appl, 0 VG HS, #1 Ref 0 1 APPLICATORFUL Prescribed by: LEANN ZIMMERMAN on 03/01/152013 Cyclobenzaprine Hcl 10 Mg Tablet, 10 MG PO Q8H PRN for MUSCLE SPASMS, (Reported) Diclofenac Sodium 75 Mg Tablet.dr, 75 MG PO BID PRN for PAIN, (Reported) Duloxetine Hcl 30 Mg Cap, 30 MG PO DAILY, (Reported) Gabapentin 100 Mg Capsule, 100 MG PO DAILY, (Reported) Hydrocodone Bit/Acetaminophen 1 Each Tablet, 1-2 TAB PO Q6H PRN for MILD PAIN, ( Reported) Insulin Aspart 100 Unit/1 Ml Insuln.pen, 50 UNITS SC AC, (Reported) Insulin Aspart 100 Unit/1 Ml Insuln.pen, 50 UNITS SQ AC, #1 Ref 0 Prescribed by: LEANN ZIMMERMAN on 03/01/152013 Insulin Determir 300 Units/3 Ml Soln, 100 UNITS SC BID, (Reported) Insulin Determir 100 U/Ml Insuln.pen, 100 UNIT SQ BID, #1 Ref 0 Prescribed by: LEANN ZIMMERMAN on 03/01/152013 Lisinopril 10 Mg Tab, 10 MG PO DAILY, #30 Ref 0 Prescribed by: DEANDRE CUEVAS on 03/26/14 1153 Phenazopyridine Hcl 200 Mg Tablet, 1 EACH PO TID PRN PRN for PAIN, #30 Ref 0 Prescribed by: LEANN ZIMMERMAN on 06/24/14 0004 Phenazopyridine Hcl 100 Mg Tablet, 1 EACH PO TID PRN PRN for PAIN, #14 Ref 1 Prescribed by: LEANN ZIMMERMAN on 03/01/152013 Pravastatin Sodium 20 Mg Tablet, 1 TAB PO DAILY, #30 Ref 0 Prescribed by: DEANDRE CUEVAS on 03/26/14 1153 Pregabalin 50 Mg Capsule, 50 MG PO TID, (Reported) Rabeprazole Sodium 20 Mg Tablet.dr, 20 MG PO DAILY, (Reported) Constitutional: no symptoms reported, see HPI Musculoskeletal: see HPI, joint pain (left knee) All Other Systems Reviewed Negative Unless Noted: Yes Past Mtjmqri-Lwggrh-Qxgsmr Hx Patient Social History Alcohol Use: Denies Use Recreational Drug Use: No Smoking Status: Current Everyday Smoker Type Used: Cigarettes 2nd Hand Smoke Exposure: Yes Recent Foreign Travel: No Contact w/Someone Who Travel: No Recent Infectious Disease Expo: No Recent Hopitalizations: Yes (2004 ) Physical Abuse: No Sexual Abuse: No Immunizations Up To Date Tetanus Booster (TDap): Less than 5yrs PED Vaccines UTD: No Date of Pneumonia Vaccine: May 12, 2012 Surgeries History of Surgeries: Yes (hysterectomy, gallbladder, appendectomy) Surgeries: Appendectomy, Gallbladder, Hysterectomy Respiratory History of Respiratory Disorde: Yes Respiratory Disorders: Asthma, Pneumonia, Chronic Bronchitis Cardiovascular History of Cardiac Disorders: Yes Cardiac Disorders: Hypertension Neurological History of Neurological Disord: Yes Neurological Disorders: Neuropathy Reproductive System Hx Reproductive Disorders: No (partial hysterectomy of R side. ) Sexually Transmitted Disease: No HIV/AIDS: No Female Reproductive Disorders: Denies Genitourinary Genitourinary Disorders: Kidney Infection, UTI-Chronic Gastrointestinal History of Gastrointestinal Di: Yes (abd pain at times) Gastrointestinal Disorders: Gastroesophageal Reflux, Pancreatitis Musculoskeletal Musculoskeletal Disorders: Arthritis Endocrine History of Endocrine Disorders: Yes Endocrine Disorders: Diabetes, Non-Insulin dep HEENT HEENT Disorders: Tinnitis Loss of Vision: Denies Hearing Impairment: Denies Cancer History of Cancer: No Psychosocial History of Psychiatric Problem: Yes Behavioral Health Disorders: Anxiety, Depression Suicide Risk Score: 0 Blood Transfusions History of Blood Disorders: No Adverse Reaction to a Blood Tr: No Reviewed Nursing Assessment Reviewed/Agree w Nursing PMH: Yes Family Medical History Significant Family History: No Pertinent Family Hx Family Medial History: Alcoholism G8 BROTHER Alzheimer's disease 19 MOTHER Arthritis 19 FATHER 19 MOTHER G8 BROTHER G8 BROTHER G8 BROTHER G8 BROTHER G8 BROTHER G8 SISTER G8 SISTER G8 SISTER G8 SISTER G8 SISTER G8 SISTER Asthma 19 FATHER 19 MOTHER G8 SISTER G8 SISTER Cancer of mouth Cardiovascular disease 19 FATHER 19 MOTHER G8 BROTHER G8 BROTHER G8 SISTER G8 SISTER Completed stroke 19 FATHER G8 SISTER G8 SISTER Dementia G8 BROTHER Diabetes mellitus 19 FATHER 19 MOTHER G8 BROTHER G8 BROTHER G8 BROTHER G8 BROTHER G8 BROTHER G8 SISTER G8 SISTER G8 SISTER G8 SISTER G8 SISTER G8 SISTER Glaucoma 19 MOTHER G8 SISTER G8 SISTER Hypercholesterolemia 19 FATHER 19 MOTHER Hypertension 19 FATHER 19 MOTHER G8 BROTHER G8 BROTHER G8 BROTHER G8 BROTHER G8 BROTHER G8 SISTER G8 SISTER G8 SISTER G8 SISTER G8 SISTER G8 SISTER Myocardial infarction 19 FATHER 19 MOTHER G8 BROTHER G8 BROTHER G8 SISTER G8 SISTER G8 SISTER Osteoporosis G8 SISTER Seizure disorder G8 BROTHER No Family History of: AIDS Abdominal aortic aneurysm [place]'s disease Aphasia Cataracts Colon cancer Congenital disease Congenital heart disease Coronary thrombosis Cystic fibrosis Deafness or hearing loss Drug abuse Dysphasia Fibrocystic disease of breast Gastroenteritis Headache disorder Infertility Kidney disease Neoplasm Parkinson's disease Prostate cancer Psychosocial problem Severe allergy Thyroid disease Tuberculosis Visual disorder Physical Exam Vital Signs Vital Sign - Last 12Hours 04/18/17 17:20 Temp 98.0 Pulse 99 Resp 18 B/P (MAP) 132/69 Pulse Ox 93 O2 Delivery Room Air Capillary Refill : Less Than 3 Seconds General Appearance: WD/WN, no apparent distress HEENT: PERRL/EOMI, normal ENT inspection, TMs normal, pharynx normal Neck: non-tender, full range of motion, supple, normal inspection Cardiovascular: normal peripheral pulses, regular rate, rhythm, no edema Respiratory: chest non-tender, lungs clear, normal breath sounds Gastrointestinal: normal bowel sounds, non tender, soft Knees: left knee normal range of motion, left knee bone tenderness (general lysed), left knee soft tissue tenderness, left knee other (no varus or valgus laxity, negative anterior and posterior drawer.) Ankles: bilateral ankle non-tender, bilateral ankle normal inspection, bilateral ankle normal range of motion, bilateral ankle no evidence of injury Neurologic/Tendon: sensory deficit (bilateral lower extremities) Neurologic/Psychiatric: no motor/sensory deficits, alert, normal mood/affect, oriented x 3 Skin: normal color, warm/dry Lymphatic: no adenopathy Progress/Results/Core Measures Results/Orders Lab Results Laboratory Tests Test 04/18/17 19:19 Range/Units Glucometer 399 H 70-110 MG/DL My Orders Orders - EDWIN ROSENBERG Knee, Left, 3 Views (04/18/17 18:43) Accucheck Stat ONCE (04/18/17 18:48) Insulin (Regular) Human (Humulin R (Per (04/18/17 19:30) Vital Signs/I&O Vital Sign - Last 12Hours 04/18/17 04/18/17 17:20 19:45 Temp 98.0 98.0 Pulse 99 99 Resp 18 18 B/P (MAP) 132/69 Pulse Ox 93 93 O2 Delivery Room Air Blood Pressure Mean: 90 Progress Note : Time: 18:30 Progress Note Initial evaluation discussed with patient recommended x-rays of the left knee and then reevaluation. Discussed importance of her using a walker at all times related to her neuropathy and risk for falls. 1920 Accu-Chek 399. Patient reports she has not had her evening dose of insulin. She reports that her blood sugars have been slightly elevated recently. Regular insulin 10 units subcutaneous. She denies any complaints at this time recommended that she recheck her blood sugar upon of returning home and eat her dinner meal and adjust her evening insulin per blood sugars. Diagnostic Imaging Diagonstic Imaging: Xray Plain Films/CT/US/NM/MRI: knee Comments NAME: MARYANNE ROCK [facility] REC#: [id number] PHYSICIAN: EDWIN ROSENBERG CC: NIALL QUAN MD; EDWIN ROSENBERG Page 1 of 1 RADIOLOGY REPORT VIA [facility]. [place], [place] CC: NIALL QUAN MD; EDWIN ROSENBERG Page 1 of 1 RADIOLOGY REPORT NAME: MARYANNE ROCK [facility] REC#: [id number] PT STATUS: REG ER : 1965 PHYSICIAN: EDWIN ROSENBERG ADMIT DATE: 04/18/17/ER Signed Date of Exam: 04/18/17 KNEE, LEFT, 3 VIEWS INDICATION: Patient fell 2 days ago and is having pain to the medial side of the knee. FINDINGS: The alignment is normal. There are mild degenerative changes. There is no fracture or dislocation. The soft tissues are unremarkable. IMPRESSION: Mild degenerative changes, otherwise unremarkable. Dictated by: Dictated on workstation # [id number] Dict: 04/18/171902 Trans: 04/18/171926 Interpreted by: NIALL QUAN MD Electronically signed by: NIALL QUAN MD 04/18/171926 Reviewed: Reviewed by Me Departure Impression Impression: Primary Impression: Knee pain, left Qualified Codes: M25.562 - Pain in left knee Additional Impressions: Hyperglycemia Fall Qualified Codes: W19.XXXA - Unspecified fall, initial encounter Disposition: 01 HOME, SELF-CARE Condition: Stable Departure-Patient Inst. Decision time for Depature: 18:50 Referrals: NO,LOCAL PHYSICIAN (PCP/Family) Primary Care Physician Patient Instructions: Hyperglycemia, Adult (DC), Knee Pain (DC), Preventing Falls Add. Discharge Instructions: Use walker or cane for stability. Follow-up with primary care provider for continued symptoms. Tylenol 650 mg every 6 hours as needed for pain. Check blood sugar 4 times daily take clogged primary care provider to adjust insulin as needed Return to emergency department for new injuries or concerns. All discharge instructions reviewed with patient and/or family. Voiced understanding. EDWIN ROSENBERG Apr 18, 2017 19:32
[2017-04-18 19:45] VITALS: BP 132/69
== END 2017-04-18 19:45 | disposition home or self-care (01) ==
LOC: EDUNIT# 17:02 → ER 17:04
DX: M25.562 Pain in left knee (principal); E11.65 Type 2 diabetes mellitus with hyperglycemia; I10 Essential (primary) hypertension; K21.9 Gastro-esophageal reflux disease without esophagitis; J45.909 Unspecified asthma, uncomplicated; E11.21 Type 2 diabetes mellitus with diabetic nephropathy; F41.9 Anxiety disorder, unspecified; F32.9 Major depressive disorder, single episode, unspecified; M19.90 Unspecified osteoarthritis, unspecified site; F17.210 Nicotine dependence, cigarettes, uncomplicated; Z90.49 Acquired absence of other specified parts of digestive tract; Z87.19 Personal history of other diseases of the digestive system; Z90.711 Acquired absence of uterus with remaining cervical stump; Z91.81 History of falling; Z79.4 Long term (current) use of insulin; W19.XXXA Unspecified fall, initial encounter
CPT/HCPCS: 73562; 82962; 96372; 99282

== ENCOUNTER 2017-06-25 16:36 | Inpatient (IN) | payer MEDICARE, MEDICAID ==
[~2017-06-25] VITALS: Ht 175.3 cm; Wt 123.5 kg
--- NOTE | 2017-06-25 17:00 | ED Neurological Problem ---
General Chief Complaint: Neuro-Stroke Like Symptoms Stated Complaint: STROKE LIKE SYMPTOMS Source: patient Exam Limitations: no limitations History of Present Illness Time seen by provider: 16:40 Initial Comments Here with 2 days of slurred speech and 2 weeks of right arm weakness. She was in the hospital and worked up for the right arm weakness at [facility]. She was at the [facility] today and apparently the slurred speech was worsening and she felt dizzy. This prompted a call to EMS for stroke concerns. Patient is on blood thinners. No recent falls. Outside the TPA window due to time. Patient is diabetic and states that her blood sugars have been quite high. Timing/Duration: increasing, other (2 days) Severity: moderate Associated Symptoms: confusion, No fever/chills, No loss of consciousness, No muscle spasms, No nausea/vomiting, slurred speech, weakness Allergies and Home Medications Allergies Coded Allergies: aspirin (Unverified Allergy, Unknown, 03/25/14) influenza virus vaccine, specific (Unverified Allergy, Unknown, 07/23/14) morphine (Unverified Allergy, Unknown, 03/25/14) hydromorphone HCl (Unverified Adverse Reaction, Mild, VOMITING, 01/06/11) Home Medications Amitriptyline HCl 50 Mg Tablet, 50 MG PO HS, (Reported) Apixaban 5 Mg Tablet, 5 MG PO BID, (Reported) Clonazepam 0.5 Mg Tablet, 0.5 MG PO TID, (Reported) Cranberry Fruit Concentrate 450 Mg Capsule, 450 MG PO DAILY, (Reported) Duloxetine HCl 30 Mg Capsule.dr, 30 MG PO DAILY, (Reported) Furosemide 40 Mg Tablet, 40 MG PO 0800,1200, (Reported) Insulin Aspart 300 Units/3 Ml Solution, 50 UNITS SQ AC, (Reported) Insulin Aspart 300 Units/3 Ml Solution, 5-15 UNITS SQ AC PRN for CORRECTION FACTOR, (Reported) USES AN EXTRA 5-15 UNITS WITH THE 50 UNITS SCHEDULED DEPENDING ON BS 250-300 +5 UNITS 300-400 +10 UNITS 400 AND ABOVE +15 UNITS Insulin Detemir 100 Unit/1 Ml Insuln.pen, 100 UNIT SQ BID, (Reported) Lidocaine 1 Each Adh..patch, 1 PATCH TD DAILY, (Reported) Losartan Potassium 50 Mg Tablet, 50 MG PO DAILY, (Reported) Multivitamin 1 Each Tablet, 1 TAB PO DAILY, (Reported) [place] 3 Polyunsat Fatty Acids 1,000 Mg Cap, 1,000 MG PO BID, (Reported) Omeprazole 40 Mg Capsule.dr, 40 MG PO DAILY, (Reported) Pregabalin 150 Mg Capsule, 150 MG PO TID, (Reported) Rosuvastatin Calcium 40 Mg Tablet, 40 MG PO HS, (Reported) Sitagliptin Phosphate 100 Mg Tablet, 100 MG PO DAILY, (Reported) Solifenacin Succinate 5 Mg Tablet, 5 MG PO DAILY, (Reported) Tramadol HCl 50 Mg Tablet, 50 MG PO Q6H PRN for PAIN-MODERATE, (Reported) Constitutional: see HPI, No chills, No fever Eyes: No Symptoms Reported, Decreased Acuity Ears, Nose, Mouth, Throat: no symptoms reported Respiratory: no symptoms reported, No short of breath, No wheezing Cardiovascular: No chest pain, No edema Gastrointestinal: no symptoms reported, No diarrhea, No nausea, No vomiting Genitourinary: no symptoms reported Musculoskeletal: no symptoms reported Skin: no symptoms reported Psychiatric/Neurological: See HPI, Denies Headache, Weakness Endocrine: No Symptoms Reported Hematologic/Lymphatic: No Symptoms Reported Past Jfhzmio-Khwycd-Jfvixf Hx Patient Social History Alcohol Use: Denies Use Recreational Drug Use: No Smoking Status: Current Everyday Smoker Type Used: Cigarettes 2nd Hand Smoke Exposure: Yes Recent Hopitalizations: Yes (2004 ) Immunizations Up To Date Tetanus Booster (TDap): Less than 5yrs PED Vaccines UTD: No Date of Pneumonia Vaccine: May 12, 2012 Surgeries History of Surgeries: Yes (hysterectomy, gallbladder, appendectomy) Surgeries: Appendectomy, Gallbladder, Hysterectomy Respiratory History of Respiratory Disorde: Yes Respiratory Disorders: Asthma, Pneumonia, Chronic Bronchitis Cardiovascular History of Cardiac Disorders: Yes Cardiac Disorders: Hypertension Neurological History of Neurological Disord: Yes Neurological Disorders: Neuropathy Reproductive System Hx Reproductive Disorders: No (partial hysterectomy of R side. ) Sexually Transmitted Disease: No HIV/AIDS: No Female Reproductive Disorders: Denies Genitourinary Genitourinary Disorders: Kidney Infection, UTI-Chronic Gastrointestinal History of Gastrointestinal Di: Yes (abd pain at times) Gastrointestinal Disorders: Gastroesophageal Reflux, Pancreatitis Musculoskeletal Musculoskeletal Disorders: Arthritis Endocrine History of Endocrine Disorders: Yes Endocrine Disorders: Diabetes, Non-Insulin dep HEENT HEENT Disorders: Tinnitis Loss of Vision: Denies Hearing Impairment: Denies Cancer History of Cancer: No Psychosocial History of Psychiatric Problem: Yes Behavioral Health Disorders: Anxiety, Depression Blood Transfusions History of Blood Disorders: No Adverse Reaction to a Blood Tr: No Reviewed Nursing Assessment Reviewed/Agree w Nursing PMH: Yes Family Medical History Significant Family History: No Pertinent Family Hx Family Medial History: Alcoholism G8 BROTHER Alzheimer's disease 19 MOTHER Arthritis 19 FATHER 19 MOTHER G8 BROTHER G8 BROTHER G8 BROTHER G8 BROTHER G8 BROTHER G8 SISTER G8 SISTER G8 SISTER G8 SISTER G8 SISTER G8 SISTER Asthma 19 FATHER 19 MOTHER G8 SISTER G8 SISTER Cancer of mouth Cardiovascular disease 19 FATHER 19 MOTHER G8 BROTHER G8 BROTHER G8 SISTER G8 SISTER Completed stroke 19 FATHER G8 SISTER G8 SISTER Dementia G8 BROTHER Diabetes mellitus 19 FATHER 19 MOTHER G8 BROTHER G8 BROTHER G8 BROTHER G8 BROTHER G8 BROTHER G8 SISTER G8 SISTER G8 SISTER G8 SISTER G8 SISTER G8 SISTER Glaucoma 19 MOTHER G8 SISTER G8 SISTER Hypercholesterolemia 19 FATHER 19 MOTHER Hypertension 19 FATHER 19 MOTHER G8 BROTHER G8 BROTHER G8 BROTHER G8 BROTHER G8 BROTHER G8 SISTER G8 SISTER G8 SISTER G8 SISTER G8 SISTER G8 SISTER Myocardial infarction 19 FATHER 19 MOTHER G8 BROTHER G8 BROTHER G8 SISTER G8 SISTER G8 SISTER Osteoporosis G8 SISTER Seizure disorder G8 BROTHER Physical Exam Vital Signs Vital Sign - Last 12Hours 06/25/17 06/25/17 16:36 18:30 Temp 98.3 Pulse 91 Resp 18 B/P (MAP) 151/78 Pulse Ox 94 O2 Delivery Nasal Cannula O2 Flow Rate 2.00 Capillary Refill : General Appearance: WD/WN, no apparent distress HEENT: PERRL/EOMI, pharynx normal Neck: full range of motion, supple Respiratory: lungs clear, normal breath sounds Cardiovascular: regular rate, rhythm, no murmur Peripheral Pulses: 2+ Dorsalis Pedis (R), 2+ Left Dors-Pedis (L), 2+ Radial Pulses (R), 2+ Radial Pulses (L) Gastrointestinal: non tender, soft Back: normal inspection, no CVA tenderness Extremities: pedal edema (bilateral to the mid to mid tibia), other (Lower extremity tenderness throughout the leg bilaterally with edema noted.) Neurologic/Psychiatric: alert, oriented x 3 Crainal Nerves: normal hearing, normal speech, PERRL Coordination/Gait: other (weak throughout) Motor/Sensory: no sensory deficit, weak motor strength RUE, weak motor strength LUE, weak motor strength RLE, weak motor strength LLE Skin: normal color, warm/dry Progress/Results/Core Measures Results/Orders Lab Results Laboratory Tests Test 06/25/17 16:40 06/25/17 16:55 Range/Units White Blood Count 15.0 H 4.3-11.0 10^3/uL Red Blood Count 5.05 4.35-5.85 10^6/uL Hemoglobin 14.4 11.5-16.0 G/DL Hematocrit 44 35-52 % Mean Corpuscular Volume 88 80-99 FL Mean Corpuscular Hemoglobin 29 25-34 PG Mean Corpuscular Hemoglobin Concent 33 32-36 G/DL Red Cell Distribution Width 14.8 H 10.0-14.5 % Platelet Count 247 130-400 10^3/uL Mean Platelet Volume 12.8 H 7.4-10.4 FL Neutrophils (%) (Auto) 70 42-75 % Lymphocytes (%) (Auto) 20 12-44 % Monocytes (%) (Auto) 7 0-12 % Eosinophils (%) (Auto) 3 0-10 % Basophils (%) (Auto) 0 0-10 % Neutrophils # (Auto) 10.5 H 1.8-7.8 X 10^3 Lymphocytes # (Auto) 3.0 1.0-4.0 X 10^3 Monocytes # (Auto) 1.1 H 0.0-1.0 X 10^3 Eosinophils # (Auto) 0.4 H 0.0-0.3 10^3/uL Basophils # (Auto) 0.1 0.0-0.1 10^3/uL Neutrophils % (Manual) 60 % Lymphocytes % (Manual) 32 % Monocytes % (Manual) 5 % Eosinophils % (Manual) 2 % Basophils % (Manual) 1 % Band Neutrophils 0 % Blood Morphology Comment NORMAL Prothrombin Time 14.7 12.2-14.7 SEC INR Comment 1.1 0.8-1.4 Activated Partial Thromboplast Time 33 24-35 SEC D-Dimer 0.30 0.00-0.49 UG/ML Sodium Level 135 135-145 MMOL/L Potassium Level 4.4 3.6-5.0 MMOL/L Chloride Level 95 L 98-107 MMOL/L Carbon Dioxide Level 27 21-32 MMOL/L Anion Gap 13 5-14 MMOL/L Blood Urea Nitrogen 18 7-18 MG/DL Creatinine 0.86 0.60-1.30 MG/DL Estimat Glomerular Filtration Rate > 60 BUN/Creatinine Ratio 21 Glucose Level 304 H 70-105 MG/DL Calcium Level 9.6 8.5-10.1 MG/DL Total Bilirubin 0.3 0.1-1.0 MG/DL Aspartate Amino Transf (AST/SGOT) 30 5-34 U/L Alanine Aminotransferase (ALT/SGPT) 26 0-55 U/L Alkaline Phosphatase 81 40-136 U/L Troponin I < 0.30 <0.30 NG/ML B-Type Natriuretic Peptide < 10.0 <100.0 PG/ML Total Protein 8.0 6.4-8.2 GM/DL Albumin 3.4 3.2-4.5 GM/DL Urine Color YELLOW Urine Clarity CLEAR Urine pH 5 5-9 Urine Specific [place] 1.010 L 1.016-1.022 Urine Protein NEGATIVE NEGATIVE Urine Glucose (UA) 4+ H NEGATIVE Urine Ketones NEGATIVE NEGATIVE Urine Nitrite NEGATIVE NEGATIVE Urine Bilirubin NEGATIVE NEGATIVE Urine Urobilinogen NORMAL NORMAL MG/DL Urine Leukocyte Esterase NEGATIVE NEGATIVE Urine RBC (Auto) NEGATIVE NEGATIVE Urine RBC NONE /HPF Urine WBC 0-2 /HPF Urine Squamous Epithelial Cells RARE /HPF Urine Crystals NONE /LPF Urine Bacteria NONE /HPF Urine Casts NONE /LPF Urine Mucus NEGATIVE /LPF Urine Culture Indicated NO My Orders Orders - DAISY MIRANDA MD Cbc With Automated Diff (06/25/17 16:46) Protime With Inr (06/25/17 16:46) Partial Thromboplastin Time (06/25/17 16:46) Comprehensive Metabolic Panel (06/25/17 16:46) Fibrin Degradation Products (06/25/17 16:46) Troponin I (06/25/17 16:46) Ua Culture If Indicated (06/25/17 16:46) Chest 1 View, Ap/Pa Only (06/25/17 16:46) Catheter(Urinary) Insert & Ass 03,15 (06/25/17 16:46) Ekg Tracing (06/25/17 16:46) Accucheck Stat ONCE (06/25/17 16:46) Saline Lock/Iv-Start (06/25/17 16:46) Vital Signs - Stroke Q15M (06/25/17 16:46) Ct Head Wo-R/O Stroke (06/25/17 16:46) O2 (06/25/17 16:46) Intake & Output 06,14,22 (06/25/17 16:46) Monitor-Rhythm Ecg Trace Only (06/25/17 16:46) Dysphagia Screening Tool (06/25/17 16:46) Manual Differential (06/25/17 16:40) Saline Lock/Iv-Start (06/25/17 17:13) Ns Iv 1000 Ml (Sodium Chloride 0.9%) (06/25/17 17:13) Ns Iv 1000 Ml (Sodium Chloride 0.9%) (06/25/17 18:12) Insulin (Regular) Human (Humulin R (Per (06/25/17 18:17) BNP (06/25/17 18:17) Insulin (Regular) Human (Humulin R (Per (06/25/17 18:10) Furosemide Injection (Lasix Injection) (06/25/17 18:28) Medications Given in ED Vital Signs/I&O Vital Sign - Last 12Hours 06/25/17 06/25/17 16:36 18:30 Temp 98.3 Pulse 91 Resp 18 B/P (MAP) 151/78 Pulse Ox 94 94 O2 Delivery Nasal Cannula O2 Flow Rate 2.00 Progress Note : Progress Note Seen and evaluated on arrival by EMS. IV, labs and EKG and chest x-ray ordered. Bertrand catheter ordered due to immobility. Blood sugars quite high. We will initiate fluid resuscitation. Monitor patient. 1809: Patient improved with the first liter of fluid. She is quite dry appearing. I did consider an additional liter normal saline but chest x-ray shows moderate pulmonary congestion consistent with heart failure. Cardiac silhouette is also quite large. We will hold on second liter of fluid. Insulin 10 units IV given. Patient's speech has improved. Initial stroke scale was 1 due to slurred speech but she would be a 0 now. She has passed her dysphagia screen. Lasix 40 mg IV initiated. We will continue with us at 20 mg IV twice a day. I discussed the case with Dr. SEPULVEDA and he accepts patient for admission, inpatient status. I have discussed the case with Dr. Hamm and he accepts patient for consult. Patient agrees to admission and plan. On O2 at 2 L to keep sats greater than 92 percent. ECG Initial ECG Impression Date: Jun 25, 2017 Initial ECG Impression Time: 17:03 Initial ECG Rate: 90 Initial ECG Rhythm: Normal Sinus Initial ECG Impression: Normal Comment Sinus rhythm with normal axis. No evidence of ST elevation NM. Interpreted by me. Similar to previous of 23 June 2014 except rate slightly improved. Diagnostic Imaging Diagonstic Imaging: CT Plain Films/CT/US/NM/MRI: head Comments NAME: MARYANNE ROCK [facility] REC#: [id number] PT STATUS: REG ER : 1965 PHYSICIAN: DAISY MIRANDA MD ADMIT DATE: 06/25/17/ER Draft Date of Exam:06/25/17 CT HEAD WO-R/O STROKE INDICATION: Stroke, right-sided weakness. COMPARISON: None. FINDINGS: Ventricles are normal in size, shape, and position. There is no midline shift or mass effect. There is no hemorrhage or evidence of acute ischemia. There is no cerebral edema. No obvious central dense vessel sign is seen. The bony calvarium, visualized paranasal sinuses, and mastoids are clear. IMPRESSION: Negative CT head. Dictated on workstation # [id number] Dict: 06/25/171747 Trans: 06/25/171751 [id number] Interpreted by: PRATEEK GARZA Electronically signed by: Diagonstic Imaging: Xray Plain Films/CT/US/NM/MRI: chest Comments [place] NAME: MARYANNE ROCK [facility] REC#: [id number] PT STATUS: REG ER : 1965 PHYSICIAN: DAISY MIRANDA MD ADMIT DATE: 06/25/17/ER Draft Date of Exam:06/25/17 CHEST 1 VIEW, AP/PA ONLY INDICATION: Headache, hyperglycemia. TECHNIQUE: Single view chest 5:14 PM. CORRELATION STUDY: 06/23/2014 FINDINGS: Heart size has increased and there is presence of pulmonary vascular congestion. Findings are changed from prior study. Lung gonzalez overall appear to be generally clear apart from likely mild central pulmonary edema. IMPRESSION: 1. Findings compatible with likely changes of congestive heart failure. Adversely changed since prior study. 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 Referrals: NO,LOCAL PHYSICIAN (PCP/Family) Primary Care Physician DAISY MIRANDA MD Jun 25, 2017 17:00
--- OUTSIDE RECORDS SUMMARY | 2017-06-25 17:03 | XMS REPORT ---
Author Author ALBIN RENAE Organization [facility] Address [address] [place] [address] Care Team Providers Care Director Of Undergraduate Admissions Name Role Phone ALBIN RENAE Unavailable PROBLEMS Type Condition ICD9-CM Code [id number] Code Onset Dates Condition Status SNOMED Code Problem Type 2 diabetes mellitus with other skin ulcer E11.622 Active 20237115 Problem Foot swelling M79.89 Active 121258918 Problem Stress incontinence in female N39.3 Active 90945799 Problem Neuropathy G62.9 Active 537067051 Problem Pulmonary HTN I27.2 Active 10973489 Problem Ulcer of right lower leg, with unspecified severity L97.919 Active 552123757 Problem Cough R05 Active 852210856 Problem Atrial enlargement, left I51.7 Active 03895498222401 Problem Left ventricular enlargement I51.7 Active 470704688 Problem CAD (coronary artery disease) I25.10 Active 83161446 Problem Anxiety F41.9 Active 91668686 Problem 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 Active 35482033 Problem Dyspepsia R10.13 Active 033575338 Problem Essential hypertension I10 Active 27441487 Problem Allergic rhinitis J30.9 Active 84598497 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 Active 771761031 Problem Skin infection L08.9 Active 515616213 Problem Chronic pain G89.29 Active 68523061 Problem Non-healing skin lesion L98.9 Active 93273072 ALLERGIES Unknown Allergies SOCIAL HISTORY No smoking Hx information available PLAN OF CARE VITAL SIGNS MEDICATIONS Medication Instructions Dosage Frequency Start Date End Date Duration Status Lasix 40 mg Orally twice a day-MUST KEEP APPT FOR REFILL 1 tablet Active Amitriptyline HCl 50 mg TAKE ONE TABLET BY MOUTH IN THE EVENING Active Duloxetine HCl 30MG Orally Once a day-MUST KEEP APPT FOR REFILLS 1 capsule Active Pravastatin Sodium 40 mg Orally Once a day-MUST KEEP APPT FOR REFILLS 1 tablet Jun, Active RESULTS No Results PROCEDURES No Known procedures IMMUNIZATIONS No Known Immunizations
--- OUTSIDE RECORDS SUMMARY | 2017-06-25 17:06 | XMS REPORT ---
Author Author ALBIN RENAE Organization [facility] Address [address] [place] [address] Care Team Providers Care Sticker Operator Name Role Phone ALBIN RENAE Unavailable PROBLEMS Type Condition ICD9-CM Code [id number] Code Onset Dates Condition Status SNOMED Code Problem Type 2 diabetes mellitus with other skin ulcer E11.622 Active 80885122 Problem Foot swelling M79.89 Active 619219356 Problem Stress incontinence in female N39.3 Active 22115747 Problem Neuropathy G62.9 Active 815688973 Problem Pulmonary HTN I27.2 Active 96829474 Problem Ulcer of right lower leg, with unspecified severity L97.919 Active 749718038 Problem Cough R05 Active 348697642 Problem Atrial enlargement, left I51.7 Active 12859176823434 Problem Left ventricular enlargement I51.7 Active 567320282 Problem CAD (coronary artery disease) I25.10 Active 45550967 Problem Anxiety F41.9 Active 12432441 Problem 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 Active 54077604 Problem Dyspepsia R10.13 Active 809990617 Problem Essential hypertension I10 Active 19691187 Problem Allergic rhinitis J30.9 Active 32476367 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 Non Drug Allergy December, Active Metformin 500 Mg Tablet,er Augusto.retention 24 Hr diarrhea Non Drug Allergy December, Active SOCIAL HISTORY Never Assessed PLAN OF CARE Activity Details Follow Up regular fu Reason: VITAL SIGNS Height 68 in 2016-12-27 Weight 271 lbs 2016-12-27 Temperature 97.3 degrees Fahrenheit 2016-12-27 Heart Rate 88 bpm 2016-12-27 Respiratory Rate 22 2016-12-27 BMI 41.20 kg/m2 2016-12-27 Blood pressure systolic 124 mmHg 2016-12-27 Blood pressure diastolic 78 mmHg 2016-12-27 MEDICATIONS Medication Instructions Dosage Frequency Start Date End Date Duration Status Actos 30 MG Orally Once a day 1 tablet 24h 30 day(s) Active Test strips Test Strips ICD 250.0 3 times a day test blood sugar 8h Active Fluticasone Propionate 50 MCG/ACT Nasally Once a day 1 spray in each nostril 24h 30 day(s) Active NovoLog Flexpen 100 UNIT/ML Subcutaneous 3 times a day 50 units 8h 90 days Active Lasix 40 mg Orally 2 times a day 1 tablet 12h 30 days Active Levemir Flexpen 100 UNIT/ML Subcutaneous 2 times a day 85units 12h 90 days Active Keflex 500 mg Orally every 12 hrs 2 capsule 12h December, December, 10 day(s) Active Losartan Potassium 50 MG Orally Once a day 1 tablet 24h 30 day(s) Active Multi Complete Active Duloxetine HCl 30MG Orally Once a day 1 capsule 24h Active Oxygen 2 Active Hydrocodone-Acetaminophen 5-325 MG Orally every 6 hrs 1 tablet as needed 6h December, Active Lyrica 150 MG Orally Three times a day 1 capsule 8h Active Lidocaine 4 % Externally Three times a day 1 application to affected area as needed 8h December, Active HydrOXYzine HCl 50MG Orally 2 times a day prn TAKE ONE TABLET BY MOUTH TWICE DAILY NEEDED FOR ANXIETY 30 Active Pravastatin Sodium 40 mg Orally Once a day-MUST KEEP APPT FOR REFILLS 1 tablet Jun, Active Pen Prosperity 31G X 6 MM Inject 90 days Active VESIcare 5 mg TAKE ONE TABLET BY MOUTH ONCE DAILY 30 Active Cranberry 300 MG Active Glimepiride 4 MG Orally 2 times a day 1 tablet 12h 30 Active Omeprazole 40 mg TAKE ONE CAPSULE BY MOUTH ONCE DAILY 30 Active Amitriptyline HCl 50 MG Orally Once a day at night 1 tablet Active Fish Oil 1000 MG Orally twice a day 2 capsules 12h Jun, 30 day( s) Active RESULTS No Results PROCEDURES Procedure Date Ordered Result Body Site [facility] VISIT ESTABLISHED PATIENT December 27, 2016 IMMUNIZATIONS No Known Immunizations MEDICAL (GENERAL) HISTORY Type Description Date Medical History type II diabetes-dx in 1995 Medical History stroke-12/2011-[facility] Medical History cardiovascular disorder-CAD Medical History hyperlipidemia Medical History hypertension Medical History Diabetes with renal manifestations, type II or unspecified type, uncontrolled Medical History Unspecified late effects of cerebrovascular disease due to cerebrovascular disease Medical History Coronary atherosclerosis of unspecified type of vessel, [place] or graft Surgical History partial hysterectomy 1991 Surgical History heart cath 2004, 2011 Hospitalization History [place] 2004 Hospitalization History [facility] for pancreatitis 11/2010 Hospitalization History [facility] for a stroke 12/2011 Hospitalization History staph infection-Shira Colby 05/2016
--- OUTSIDE RECORDS SUMMARY | 2017-06-25 17:07 | XMS REPORT ---
Author Author ALBIN RENAE Organization [facility] Address [address] [place] [address] Care Team Providers Care Biology Lecturer Name Role Phone ALBIN RENAE Unavailable PROBLEMS Type Condition ICD9-CM Code IRB02-DL Code Onset Dates Condition Status SNOMED Code Problem Type 2 diabetes mellitus with other skin ulcer E11.622 Active 66398046 Problem Foot swelling M79.89 Active 053264855 Problem Stress incontinence in female N39.3 Active 53669258 Problem Neuropathy G62.9 Active 259834026 Problem Pulmonary HTN I27.2 Active 34942696 Problem Ulcer of right lower leg, with unspecified severity L97.919 Active 280410614 Problem Cough R05 Active 616351977 Problem Atrial enlargement, left I51.7 Active 88721211857479 Problem Left ventricular enlargement I51.7 Active 585119957 Problem CAD (coronary artery disease) I25.10 Active 07767003 Problem Anxiety F41.9 Active 02992464 Problem 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 Active 19444323 Problem Dyspepsia R10.13 Active 658084230 Problem Essential hypertension I10 Active 01800947 Problem Allergic rhinitis J30.9 Active 83049037 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 Active 431006320 Problem Skin infection L08.9 Active 619255419 Problem Chronic pain G89.29 Active 02957676 Problem Non-healing skin lesion L98.9 Active 24671075 ALLERGIES No Information SOCIAL HISTORY Never Assessed PLAN OF CARE VITAL SIGNS MEDICATIONS Unknown Medications RESULTS No Results PROCEDURES No Known procedures IMMUNIZATIONS No Known Immunizations MEDICAL (GENERAL) HISTORY Type Description Date Medical History type II diabetes-dx in 1995 Medical History stroke-12/2011-[facility] Medical History cardiovascular disorder-CAD Medical History hyperlipidemia Medical History hypertension Medical History Diabetes with renal manifestations, type II or unspecified type, uncontrolled Medical History Unspecified late effects of cerebrovascular disease due to cerebrovascular disease Medical History Coronary atherosclerosis of unspecified type of vessel, unga or graft Surgical History partial hysterectomy 1991 Surgical History heart cath 2004, 2011 Hospitalization History minor [place] 2004 Hospitalization History [facility] for pancreatitis 11/[address] [facility] for a stroke 12/2011 Hospitalization History guih infection-Shira Colby 05/2016
--- OUTSIDE RECORDS SUMMARY | 2017-06-25 17:07 | XMS REPORT ---
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 Active 07773922 Problem Foot swelling M79.89 Active 881268544 Problem Stress incontinence in female N39.3 Active 56117243 Problem Neuropathy G62.9 Active 415640953 Problem Pulmonary HTN I27.2 Active 34061864 Problem Ulcer of right lower leg, with unspecified severity L97.919 Active 278442367 Problem Cough R05 Active 916327751 Problem Atrial enlargement, left I51.7 Active 68290490092179 Problem Left ventricular enlargement I51.7 Active 349124893 Problem CAD (coronary artery disease) I25.10 Active 16474579 Problem Anxiety F41.9 Active 58624853 Problem 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 Active 79933839 Problem Dyspepsia R10.13 Active 257170651 Problem Essential hypertension I10 Active 67034675 Problem Allergic rhinitis J30.9 Active 83638755 Problem long term 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 Active 102811167 Problem Skin infection L08.9 Active 725793508 Problem Chronic pain G89.29 Active 97183358 Problem Non-healing skin lesion L98.9 Active 39290103 ALLERGIES No Information SOCIAL HISTORY Never Assessed PLAN OF CARE VITAL SIGNS MEDICATIONS Medication Instructions Dosage Frequency Start Date End Date Duration Status Losartan Potassium 50 MG Orally Once a day 1 tablet 24h 30 day(s) Active VESIcare 5 mg TAKE ONE TABLET BY MOUTH ONCE DAILY 30 Active Omeprazole 40 mg TAKE ONE CAPSULE BY MOUTH ONCE DAILY 30 Active Actos 30 MG Orally Once a day 1 tablet 24h 30 day(s) Active RESULTS No Results PROCEDURES No Known [...] Coronary atherosclerosis of unspecified type of vessel, [place] or graft Surgical History partial hysterectomy 1991 Surgical History heart cath 2004, 2011 Hospitalization History minor [place] 2004 Hospitalization History [facility] for pancreatitis 11/2010 Hospitalization History [facility] for a stroke 12/2011 Hospitalization History staph infection-Shira Colby 05/2016
[2017-06-25 17:09] LABS: BILIRUBIN,URINE NEGATIVE (NEGATIVE); KETONES,URINE NEGATIVE (NEGATIVE); LEUKOCYTE ESTERASE ,URINE NEGATIVE (NEGATIVE); NITRITE,URINE NEGATIVE (NEGATIVE); PH,URINE 5 (5-9); PROTEIN,URINE NEGATIVE (NEGATIVE); UROBILINOGEN,URINE NORMAL (NORMAL)
--- OUTSIDE RECORDS SUMMARY | 2017-06-25 17:09 | XMS REPORT ---
Author Author ALBIN RENAE Organization [facility] Address [address] [place] [address] Care Team Providers Care Retreader Name Role Phone ALBIN RENAE Unavailable PROBLEMS Type Condition ICD9-CM Code [id number] Code Onset Dates Condition Status SNOMED Code Problem Type 2 diabetes mellitus with other skin ulcer E11.622 Active 05740089 Problem Foot swelling M79.89 Active 984973116 Problem Stress incontinence in female N39.3 Active 41554798 Problem Neuropathy G62.9 Active 525056484 Problem Pulmonary HTN I27.2 Active 41957616 Problem Ulcer of right lower leg, with unspecified severity L97.919 Active 483932359 Problem Cough R05 Active 894317983 Problem Atrial enlargement, left I51.7 Active 24421826134578 Problem Left ventricular enlargement I51.7 Active 663531284 Problem CAD (coronary artery disease) I25.10 Active 70719073 Problem Anxiety F41.9 Active 31616171 Problem 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 Active 74485905 Problem Dyspepsia R10.13 Active 079572865 Problem Essential hypertension I10 Active 79005122 Problem Allergic rhinitis J30.9 Active 10444050 Problem long term 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 Active 089879479 Problem Skin infection L08.9 Active 388025056 Problem Chronic pain G89.29 Active 48995344 Problem Non-healing skin lesion L98.9 Active 33466798 ALLERGIES Substance Reaction Event Type Date Status Morphine Sulfate Unknown Drug Allergy Sep, Active Dilaudid Unknown Drug Allergy Sep, Active Aspirin convulsions Drug Allergy Sep, Active Influenza Virus Vaccine hives Drug Allergy Sep, Active Amlodipine 5 Mg Tablet orthostatic hypotension. Non Drug Allergy Sep, Active Metformin 500 Mg Tablet,er Augusto.retention 24 Hr diarrhea Non Drug Allergy Sep, Active SOCIAL HISTORY Never Assessed PLAN OF CARE Activity Details Follow Up 3 Months Reason:DM/Pain VITAL SIGNS Height 68 in 2016-10-02 Weight 260.3 lbs 2016-10-02 Temperature 98.9 degrees Fahrenheit 2016-10-02 Heart Rate 86 bpm 2016-10-02 Respiratory Rate 22 2016-10-02 BMI 39.57 kg/m2 2016-10-02 Blood pressure systolic 138 mmHg 2016-10-02 Blood pressure diastolic 84 mmHg 2016-10-02 MEDICATIONS Medication Instructions Dosage Frequency Start Date End Date Duration Status Actos 30 MG Orally Once a day 1 tablet 24h 30 Active Fluticasone Propionate 50 MCG/ACT Nasally Once a day 1 spray in each nostril 24h 30 day(s) Active Actos 30 MG Orally Once a day 1 tablet 24h 30 day(s) Active Cyclobenzaprine HCl 10 mg Orally Three times a day 1 tablet 8h Active Losartan Potassium 50 MG Orally Once a day 1 tablet 24h 30 day(s) Active Pravastatin Sodium 40 mg Orally Once a day-MUST KEEP APPT FOR REFILLS 1 tablet Jun, Active Amitriptyline HCl 50 MG Orally Once a day at night 1 tablet Active Fish Oil 1000 MG Orally twice a day 2 capsules 12h Jun, 30 day( s) Active Duloxetine HCl 30MG Orally Once a day 1 capsule 24h Active Duloxetine HCl 30MG Orally Once a day-MUST KEEP APPT FOR REFILLS 1 capsule Active Cyclobenzaprine HCl 10 MG TAKE ONE TABLET BY MOUTH THREE TIMES DAILY 28 Active Omeprazole 40 MG TAKE ONE CAPSULE BY MOUTH ONCE DAILY 30 Active Multi Complete Active HydrOXYzine HCl 50MG Orally 2 times a day prn TAKE ONE TABLET BY MOUTH TWICE DAILY NEEDED FOR ANXIETY 30 Active Pen [place] 31G X 6 MM Inject Active Lyrica 150 MG Orally Three times a day 1 capsule 8h Active Amitriptyline HCl 50 mg TAKE ONE TABLET BY MOUTH IN THE EVENING Active Lasix 40 mg Orally 2 times a day 1 tablet 12h 30 days Active NovoLog Flexpen 100 UNIT/ML Subcutaneous 3 times a day 50 units 8h Active Glimepiride 4 MG Orally 2 times a day 1 tablet 12h 30 Active Azithromycin 250 MG Orally Once a day 2 tablets on the first day, then 1 tablet daily for 4 days 24h Active Test strips Test Strips ICD 250.0 3 times a day test blood sugar 8h Active Glimepiride 4 MG TAKE ONE TABLET BY MOUTH TWICE DAILY 30 Active Oxygen 2 Active Amoxicillin-Pot Clavulanate 875-125 MG Orally every 12 hrs 1 tablet 12h Active HydrOXYzine HCl 50 MG TAKE ONE TABLET BY MOUTH TWICE DAILY NEEDED FOR ANXIETY 30 Active Levemir Flexpen 100 UNIT/ML Subcutaneous 2 times a day 85units 12h Active VESIcare 5 MG TAKE ONE TABLET BY MOUTH ONCE DAILY 30 Active Cranberry 300 MG Active RESULTS Name Result Date Reference Range A1C (IN HOUSE) 2016-10-02 A1C IN HOUSE 11.1 4.3 - 5.6 % Previous A1c 11.6 Lot [id number] Exp date LIPID PANEL 2016-10-02 Cholesterol, Total 212 100-199 Triglycerides 384 0-149 HDL Cholesterol 36 >39 VLDL Cholesterol Ilia 77 5-40 LDL Cholesterol Calc 99 0-99 Comment: CMP 2016-10-02 Glucose, Serum 466 65-99 BUN 12 6-24 Creatinine, Serum 0.75 0.57-1.00 eGFR If NonAfricn Am 91 >59 eGFR If Africn Am 105 >59 BUN/Creatinine Ratio 16 9-23 Sodium, Serum 135 134-144 Potassium, Serum 4.1 3.5-5.2 Chloride, Serum 90 96-106 Carbon Dioxide, Total 25 18-29 Calcium, Serum 9.4 8.7-10.2 Protein, Total, Serum 7.6 6.0-8.5 Albumin, Serum 4.0 3.5-5.5 Globulin, Total 3.6 1.5-4.5 A/G Ratio 1.1 1.1-2.5 Bilirubin, Total 0.3 0.0-1.2 Alkaline Phosphatase, S 76 39-117 AST (SGOT) 21 0-40 ALT (SGPT) 22 0-32 PROCEDURES Procedure Date Ordered Result Body Site GLYCATED HEMOGLOBIN TEST Oct 02, 2016 [facility] Oct [facility], 2016 [facility] ESTABLISHED PATIENT Oct 02, 2016 VENIPUNCT, ROUTINE* Oct 02, 2016 IMMUNIZATIONS No Known Immunizations MEDICAL (GENERAL) [...] Coronary atherosclerosis of unspecified type of vessel, [place] or graft Surgical History partial hysterectomy 1991 Surgical History heart cath 2004, 2011 Hospitalization History minor [place] 2004 Hospitalization History [facility] for pancreatitis 11/[address] [facility] for a stroke 12/2011 Hospitalization History staph infection-Shira Colby 05/2016
[2017-06-25 17:10] LABS: BASOPHILS # (AUTO) 0.1 10^3/uL (0.0-0.1); BASOPHILS % (AUTO) 0 % (0-10); EOSINOPHILS # (AUTO) 0.4 10^3/uL (0.0-0.3); EOSINOPHILS % (AUTO) 3 % (0-10); LYMPHOCYTES % (AUTO) 20 % (12-44); MEAN CORPUSCULAR HEMOGLOBIN 29 PG (25-34); MEAN CORPUSCULAR HGB CONC 33 G/DL (32-36); MEAN CORPUSCULAR VOLUME 88 FL (80-99); MEAN PLATELET VOLUME 12.8 FL (7.4-10.4); MONOCYTES # (AUTO) 1.1 X 10^3 (0.0-1.0); MONOCYTES % (AUTO) 7 % (0-12); NEUTROPHILS # (AUTO) 10.5 X 10^3 (1.8-7.8); NEUTROPHILS % (AUTO) 70 % (42-75); PLATELET COUNT 247 10^3/uL (130-400); RED BLOOD COUNT 5.05 10^6/uL (4.35-5.85); RED CELL DISTRIBUTION WIDTH 14.8 % (10.0-14.5)
--- OUTSIDE RECORDS SUMMARY | 2017-06-25 17:10 | XMS REPORT ---
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 Active 75952365 Problem Foot swelling M79.89 Active 379534119 Problem Stress incontinence in female N39.3 Active 31923779 Problem Neuropathy G62.9 Active 535991105 Problem Pulmonary HTN I27.2 Active 25665417 Problem Ulcer of right lower leg, with unspecified severity L97.919 Active 307198060 Problem Cough R05 Active 777372050 Problem Atrial enlargement, left I51.7 Active 89177676520514 Problem Left ventricular enlargement I51.7 Active 264910532 Problem CAD (coronary artery disease) I25.10 Active 40419577 Problem Anxiety F41.9 Active 51304526 Problem 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 Active 56218048 Problem Dyspepsia R10.13 Active 206334641 Problem Essential hypertension I10 Active 23496873 Problem Allergic rhinitis J30.9 Active 00655808 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 for a stroke 12/2011 Hospitalization History guih infection-Shira Colby 05/2016
[2017-06-25] MEDS ORDERED: NS IV 1000 ML 1,000 ML IV ONE ×2 (17:13→18:12)
[2017-06-25 17:15] LABS: SQUAMOUS EPITHELIAL CELL,UR RARE /HPF; WBC,URINE 0-2 /HPF
--- OUTSIDE RECORDS SUMMARY | 2017-06-25 17:16 | XMS REPORT ---
Author Author ALBIN RENAE Organization [facility] Address [address] [place] [address] Care Team Providers Care Roller Engraver Name Role Phone ALBIN RENAE Unavailable PROBLEMS Type Condition ICD9-CM Code [id number] Code Onset Dates Condition Status SNOMED Code Problem Type 2 diabetes mellitus with other skin ulcer E11.622 Active 36524318 Problem Foot swelling M79.89 Active 898154380 Problem Stress incontinence in female N39.3 Active 29432084 Problem Neuropathy G62.9 Active 600054062 Problem Pulmonary HTN I27.2 Active 89881839 Problem Ulcer of right lower leg, with unspecified severity L97.919 Active 719687899 Problem Cough R05 Active 543348665 Problem Atrial enlargement, left I51.7 Active 29625471999340 Problem Left ventricular enlargement I51.7 Active 399976124 Problem CAD (coronary artery disease) I25.10 Active 38176249 Problem Anxiety F41.9 Active 37109999 Problem 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 Active 89030774 Problem Dyspepsia R10.13 Active 055576195 Problem Essential hypertension I10 Active 91463506 Problem Allergic rhinitis J30.9 Active 29667769 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 Active 788648486 Problem Skin infection L08.9 Active 376200180 Problem Chronic pain G89.29 Active 29815038 Problem Non-healing skin lesion L98.9 Active 42041227 ALLERGIES No Information SOCIAL HISTORY Never Assessed PLAN OF CARE VITAL SIGNS MEDICATIONS Medication Instructions Dosage Frequency Start Date End Date Duration Status Pen [place] 31G X 6 MM Inject 90 days Active NovoLog Flexpen 100 UNIT/ML Subcutaneous 3 times a day 50 units 8h 90 days Active Levemir Flexpen 100 UNIT/ML Subcutaneous 2 times a day 85units 12h 90 days Active RESULTS No Results PROCEDURES No [...] Coronary atherosclerosis of unspecified type of vessel, [place] or graft Surgical History partial hysterectomy 1991 Surgical History heart cath 2004, 2011 Hospitalization History minor [place] 2004 Hospitalization History [facility] for pancreatitis 11/2010 Hospitalization History [facility] for a stroke 12/2011 Hospitalization History staph infection-Shira Colby 05/2016
--- OUTSIDE RECORDS SUMMARY | 2017-06-25 17:19 | XMS REPORT | Continuity of Care Document ---
Author Author [facility] Address Unknown Phone Unavailable Allergies Active Description Code Type Severity Reaction Onset Reported/Identified Relationship to Patient Clinical Status Yes aspirin Drug Allergy N/A N/A 08/30/2010 Yes morphine Drug Allergy N/A N/A 08/30/2010 Yes aspirin Drug Allergy 08/30/2010 Yes morphine Drug Allergy 08/30/2010 Yes hydromorphone HCl [id number] Drug Allergy Mild VOMITING 01/06/2011 Yes Dilaudid Drug Allergy N/A N/A 03/02/2011 Yes Dilaudid Drug Allergy 03/02/2011 Yes Influenza Virus Vaccine Drug Allergy N/A N/A 11/28/2011 Yes Influenza Virus Vaccine Drug Allergy 11/28/2011 Yes amlodipine 5 mg Tablet Drug Allergy N/A N/A 03/12/2012 Yes amlodipine 5 mg Tablet Drug Allergy 03/12/2012 Yes metformin 500 mg tablet,ER myron.retention 24 hr Drug Allergy N/A N/A 12/24/2013 Yes aspirin [id number] Drug Allergy Unknown N/A 03/25/2014 Yes morphine [id number] Drug Allergy Unknown N/A 03/25/2014 Yes FLU VACCINE FLU VACCINE Unknown N/A 07/23/2014 Yes influenza virus vacc,specific [id number] Drug Allergy Unknown N/A 07/23/2014 Yes influenza virus vaccine, specific [id number] Drug Allergy Unknown N/A 07/23/2014 Medications Problems Date Dx Coded Attending Type Code Diagnosis Diagnosed By 08/30/2010 250.02 DIABETES II UNCONTROLLED 08/30/2010 401.1 ESSENTIAL HYPERTENSION BENIGN 08/30/2010 AHSAN CHANG APRN 250.02 DIABETES II UNCONTROLLED 08/30/2010 AHSAN CHANG APRN 401.1 ESSENTIAL HYPERTENSION BENIGN 08/30/2010 MALIK SANTIAGO APRN 250.02 DIABETES II UNCONTROLLED 08/30/2010 MALIK SANTIAGO APRN 401.1 ESSENTIAL HYPERTENSION BENIGN 08/30/2010 BAH DO, COCO K 250.02 DIABETES II UNCONTROLLED 08/30/2010 BAH DO, COCO K 401.1 ESSENTIAL HYPERTENSION BENIGN 08/30/2010 BAH DO, COCO K 250.02 DIABETES II UNCONTROLLED 08/30/2010 BAH DO, COCO K 401.1 ESSENTIAL HYPERTENSION BENIGN 08/30/2010 MADL CORPORATE TRAINER, ALBIN L 250.02 DIABETES II UNCONTROLLED 08/30/2010 MADL CORPORATE TRAINER, ALBIN L 401.1 ESSENTIAL HYPERTENSION BENIGN 08/30/2010 MADL CORPORATE TRAINER, ALBIN L 250.02 DIABETES II UNCONTROLLED 08/30/2010 MADL CORPORATE TRAINER, ALBIN L 401.1 ESSENTIAL HYPERTENSION BENIGN 08/30/2010 BAH DO, COCO K 250.02 DIABETES II UNCONTROLLED 08/30/2010 BAH DO, COCO K 401.1 ESSENTIAL HYPERTENSION BENIGN 08/30/2010 BAH DO, COCO K 250.02 DIABETES II UNCONTROLLED 08/30/2010 BAH DO, COCO K 401.1 ESSENTIAL HYPERTENSION BENIGN 08/30/2010 DEANDRE CUEVAS MD N 250.02 DIABETES II UNCONTROLLED 08/30/2010 DEANDRE CUEVAS MD 401.1 ESSENTIAL HYPERTENSION BENIGN 08/30/2010 BAH DO, COCO K 250.02 DIABETES II UNCONTROLLED 08/30/2010 BAH DO, COCO K 401.1 ESSENTIAL HYPERTENSION BENIGN 08/30/2010 MADL CORPORATE TRAINER, ALBIN L 250.02 DIABETES II UNCONTROLLED 08/30/2010 MADL CORPORATE TRAINER, ALBIN L 401.1 ESSENTIAL HYPERTENSION BENIGN 08/30/2010 BAH DO, COCO K 250.02 DIABETES II UNCONTROLLED 08/30/2010 BAH DO, COCO K 401.1 ESSENTIAL HYPERTENSION BENIGN 08/30/2010 DEANDRE CUEVAS MD N 250.02 DIABETES II UNCONTROLLED 08/30/2010 DEANDRE CUEVAS MD N 401.1 ESSENTIAL HYPERTENSION BENIGN 08/30/2010 MADL CORPORATE TRAINER, ALBIN L 250.02 DIABETES II UNCONTROLLED 08/30/2010 MADL CORPORATE TRAINER, ALBIN L 401.1 ESSENTIAL HYPERTENSION BENIGN 08/30/2010 MADL CORPORATE TRAINER, ALBIN L 250.02 DIABETES II UNCONTROLLED 08/30/2010 MADL CORPORATE TRAINER, ALBIN L 401.1 ESSENTIAL HYPERTENSION BENIGN 08/30/2010 BAH DO, COCO K 250.02 DIABETES II UNCONTROLLED 08/30/2010 BAH DO, COCO K 401.1 ESSENTIAL HYPERTENSION BENIGN 09/18/2010 357.9 NEUROPATHY UNSP 09/18/2010 AHSAN CHANG APRN 357.9 NEUROPATHY UNSP 09/18/2010 MALIK SANTIAGO APRN R 357.9 NEUROPATHY UNSP 09/18/2010 BAH DO, COCO K 357.9 NEUROPATHY UNSP 09/18/2010 BAH DO, COCO K 357.9 NEUROPATHY UNSP 09/18/2010 MADL CORPORATE TRAINER, ALBIN L 357.9 NEUROPATHY UNSP 09/18/2010 MADL CORPORATE TRAINER, ALBIN L 357.9 NEUROPATHY UNSP 09/18/2010 BAH DO, COCO K 357.9 NEUROPATHY UNSP 09/18/2010 BAH DO, COCO K 357.9 NEUROPATHY UNSP 09/18/2010 DEANDRE CUEVAS MD N 357.9 NEUROPATHY UNSP 09/18/2010 BAH DO, COCO K 357.9 NEUROPATHY UNSP 09/18/2010 MADAnnabelle CORPORATE TRAINER, ALBIN L 357.9 NEUROPATHY UNSP 09/18/2010 BAH DO, COCO K 357.9 NEUROPATHY UNSP 09/18/2010 DEANDRE CUEVAS MD N 357.9 NEUROPATHY UNSP 09/18/2010 MADAnnabelle CORPORATE TRAINER, ALBIN L 357.9 NEUROPATHY UNSP 09/18/2010 MADL CORPORATE TRAINER, ALBIN L 357.9 NEUROPATHY UNSP 09/18/2010 BAH DO, COCO K 357.9 NEUROPATHY UNSP 10/02/2010 112.1 CANDIDIASIS VAGINAL 10/02/2010 611.71 MASTODYNIA 10/02/2010 611.72 LUMP OR MASS IN BREAST 10/02/2010 V72.31 KEYBOARDING CLERK EXAM, ROUTINE 10/02/2010 AHSAN CHANG APRN 112.1 CANDIDIASIS VAGINAL 10/02/2010 AHSAN CHANG APRN 611.71 MASTODYNIA 10/02/2010 AHSAN CHANG APRN 611.72 LUMP OR MASS IN BREAST 10/02/2010 AHSAN CHANG APRN V72.31 KEYBOARDING CLERK EXAM, ROUTINE 10/02/2010 MALIK SANTIAGO APRN R 112.1 CANDIDIASIS VAGINAL 10/02/2010 MALIK SANTIAGO APRN R 611.71 MASTODYNIA 10/02/2010 MALIK SANTIAGO APRN R 611.72 LUMP OR MASS IN BREAST 10/02/2010 MALIK SANTIAGO APRN V72.31 KEYBOARDING CLERK EXAM, ROUTINE 10/02/2010 BAH DO, COCO K 112.1 CANDIDIASIS VAGINAL 10/02/2010 BAH DO, COCO K 611.71 MASTODYNIA 10/02/2010 BAH DO, COCO K 611.72 LUMP OR MASS IN BREAST 10/02/2010 BAH DO, COCO K V72.31 KEYBOARDING CLERK EXAM, ROUTINE 10/02/2010 BAH DO, COCO K 112.1 CANDIDIASIS VAGINAL 10/02/2010 BAH DO, COCO K 611.71 MASTODYNIA 10/02/2010 BAH DO, COCO K 611.72 LUMP OR MASS IN BREAST 10/02/2010 BAH DO, COCO K V72.31 KEYBOARDING CLERK EXAM, ROUTINE 10/02/2010 MADL CORPORATE TRAINER, ALBIN L 112.1 CANDIDIASIS VAGINAL 10/02/2010 MADL CORPORATE TRAINER, ALBIN L 611.71 MASTODYNIA 10/02/2010 MADL CORPORATE TRAINER, ALBIN L 611.72 LUMP OR MASS IN BREAST 10/02/2010 MADL CORPORATE TRAINER, ALBIN L V72.31 KEYBOARDING CLERK EXAM, ROUTINE 10/02/2010 MADL CORPORATE TRAINER, ALBIN L 112.1 CANDIDIASIS VAGINAL 10/02/2010 MADL CORPORATE TRAINER, ALBIN L 611.71 MASTODYNIA 10/02/2010 MADL CORPORATE TRAINER, ALBIN L 611.72 LUMP OR MASS IN BREAST 10/02/2010 MADL CORPORATE TRAINER, ALBIN L V72.31 KEYBOARDING CLERK EXAM, ROUTINE 10/02/2010 BAH DO, COCO K 112.1 CANDIDIASIS VAGINAL 10/02/2010 BAH DO, COCO K 611.71 MASTODYNIA 10/02/2010 BAH DO, COCO K 611.72 LUMP OR MASS IN BREAST 10/02/2010 BAH DO, COCO K V72.31 KEYBOARDING CLERK EXAM, ROUTINE 10/02/2010 BAH DO, COCO K 112.1 CANDIDIASIS VAGINAL 10/02/2010 BAH DO, COCO K 611.71 MASTODYNIA 10/02/2010 BAH DO, COCO K 611.72 LUMP OR MASS IN BREAST 10/02/2010 BAH DO, COCO K V72.31 KEYBOARDING CLERK EXAM, ROUTINE 10/02/2010 FAITH MALIN, DEANDRE N 112.1 CANDIDIASIS VAGINAL 10/02/2010 DEANDRE CUEVAS MD N 611.71 MASTODYNIA 10/02/2010 DEANDRE CUEVAS MD 611.72 LUMP OR MASS IN BREAST 10/02/2010 DEANDRE CUEVAS MD V72.31 KEYBOARDING CLERK EXAM, ROUTINE 10/02/2010 BAH DO COCO K 112.1 CANDIDIASIS VAGINAL 10/02/2010 BAH DO COCO K 611.71 MASTODYNIA 10/02/2010 BAH DO, COCO K 611.72 LUMP OR MASS IN BREAST 10/02/2010 BAH DO COCO K V72.31 KEYBOARDING CLERK EXAM, ROUTINE 10/02/2010 MADL CORPORATE TRAINER, ALBIN L 112.1 CANDIDIASIS VAGINAL 10/02/2010 MADL CORPORATE TRAINER, ALBIN L 611.71 MASTODYNIA 10/02/2010 MADL CORPORATE TRAINER, ALBIN L 611.72 LUMP OR MASS IN BREAST 10/02/2010 MADL CORPORATE TRAINER, ALBIN L V72.31 KEYBOARDING CLERK EXAM, ROUTINE 10/02/2010 NIURKA SINGH COCO K 112.1 CANDIDIASIS VAGINAL 10/02/2010 BAH DO COCO K 611.71 MASTODYNIA 10/02/2010 BAH DO, COCO K 611.72 LUMP OR MASS IN BREAST 10/02/2010 BAH DO COCO K V72.31 KEYBOARDING CLERK EXAM, ROUTINE 10/02/2010 DEANDRE CUEVAS MD N 112.1 CANDIDIASIS VAGINAL 10/02/2010 DEANDRE CUEVAS MD N 611.71 MASTODYNIA 10/02/2010 DEANDRE CUEVAS MD N 611.72 LUMP OR MASS IN BREAST 10/02/2010 DEANDRE CUEVAS MD N V72.31 KEYBOARDING CLERK EXAM, ROUTINE 10/02/2010 MADL CORPORATE TRAINER, ALBIN L 112.1 CANDIDIASIS VAGINAL 10/02/2010 MADL CORPORATE TRAINER, ALBIN L 611.71 MASTODYNIA 10/02/2010 MADL CORPORATE TRAINER, ALBIN L 611.72 LUMP OR MASS IN BREAST 10/02/2010 MADL CORPORATE TRAINER, ALBIN L V72.31 KEYBOARDING CLERK EXAM, ROUTINE 10/02/2010 MADL CORPORATE TRAINER, ALBIN L 112.1 CANDIDIASIS VAGINAL 10/02/2010 MADL CORPORATE TRAINER, ALBIN L 611.71 MASTODYNIA 10/02/2010 MADL CORPORATE TRAINER, ALBIN L 611.72 LUMP OR MASS IN BREAST 10/02/2010 MADL CORPORATE TRAINER, ALBIN L V72.31 KEYBOARDING CLERK EXAM, ROUTINE 10/02/2010 BAH DO, COCO K 112.1 CANDIDIASIS VAGINAL 10/02/2010 BAH DO, COCO K 611.71 MASTODYNIA 10/02/2010 BAH DO, COCO K 611.72 LUMP OR MASS IN BREAST 10/02/2010 BAH DO, COCO K V72.31 KEYBOARDING CLERK EXAM, ROUTINE 10/16/2010 250.00 DIABETES MELLITUS 10/16/2010 AHSAN CHANG APRN 250.00 DIABETES MELLITUS 10/16/2010 MALIK SANTIAGO APRN R 250.00 DIABETES MELLITUS 10/16/2010 BAH DO, COCO K 250.00 DIABETES MELLITUS 10/16/2010 BAH DO, COCO K 250.00 DIABETES MELLITUS 10/16/2010 [facility] CORPORATE TRAINER, ALBIN L 250.00 DIABETES MELLITUS 10/16/2010 [facility] CORPORATE TRAINER, ALBIN L 250.00 DIABETES MELLITUS 10/16/2010 BAH DO, COCO K 250.00 DIABETES MELLITUS 10/16/2010 BAH DO, COCO K 250.00 DIABETES MELLITUS 10/16/2010 DEANDRE CUEVAS MD 250.00 DIABETES MELLITUS 10/16/2010 BAH DO, COCO K 250.00 DIABETES MELLITUS 10/16/2010 [facility] CORPORATE TRAINER, ALBIN L 250.00 DIABETES MELLITUS 10/16/2010 BAH DO, COCO K 250.00 DIABETES MELLITUS 10/16/2010 DEANDRE CUEVAS MD 250.00 DIABETES MELLITUS 10/16/2010 [facility] CORPORATE TRAINER, ALBIN L 250.00 DIABETES MELLITUS 10/16/2010 [facility] CORPORATE TRAINER, ALBIN L 250.00 DIABETES MELLITUS 10/16/2010 BAH DO, COCO K 250.00 DIABETES MELLITUS 01/05/2011 786.50 chest pain or discomfort 01/05/2011 AHSAN CHANG APRN 786.50 chest pain or discomfort 01/05/2011 MALIK SANTIAGO APRN R 786.50 chest pain or discomfort 01/05/2011 BAH DO, COCO K 786.50 chest pain or discomfort 01/05/2011 BAH DO, COCO K 786.50 chest pain or discomfort 01/05/2011 MADL CORPORATE TRAINER, ALBIN L 786.50 chest pain or discomfort 01/05/2011 MADL CORPORATE TRAINER, ALBIN L 786.50 chest pain or discomfort 01/05/2011 BAH DO, COCO K 786.50 chest pain or discomfort 01/05/2011 BAH DO, COCO K 786.50 chest pain or discomfort 01/05/2011 DEANDRE CUEVAS MD 786.50 chest pain or discomfort 01/05/2011 BAH DO, COCO K 786.50 chest pain or discomfort 01/05/2011 MADL CORPORATE TRAINER, ALBIN L 786.50 chest pain or discomfort 01/05/2011 BAH DO, COCO K 786.50 chest pain or discomfort 01/05/2011 DEANDRE CUEVAS MD 786.50 chest pain or discomfort 01/05/2011 MADL CORPORATE TRAINER, ALBIN L 786.50 chest pain or discomfort 01/05/2011 MADL CORPORATE TRAINER, ALBIN L 786.50 chest pain or discomfort 01/05/2011 BAH DO, COCO K 786.50 chest pain or discomfort 01/08/2011 Ot 250.60 01/08/2011 Ot 357.2 01/08/2011 Ot 401.9 01/08/2011 Ot 414.01 01/08/2011 Ot 577.0 01/08/2011 Ot 599.0 01/08/2011 Ot 786.50 01/08/2011 Ot E932.3 01/08/2011 Ot V12.2 01/08/2011 Ot V45.82 03/02/2011 599.0 URINARY TRACT INFECTION 03/02/2011 AHSAN CHANG APRN 599.0 URINARY TRACT INFECTION 03/02/2011 MALKI SANTIAGO APRN 599.0 URINARY TRACT INFECTION 03/02/2011 BAH DO, COCO K 599.0 URINARY TRACT INFECTION 03/02/2011 BAH DO, COCO K 599.0 URINARY TRACT INFECTION 03/02/2011 MADL CORPORATE TRAINER, ALBIN L 599.0 URINARY TRACT INFECTION 03/02/2011 MADL CORPORATE TRAINER, ALBIN L 599.0 URINARY TRACT INFECTION 03/02/2011 BAH DO, COCO K 599.0 URINARY TRACT INFECTION 03/02/2011 BAH DO, COCO K 599.0 URINARY TRACT INFECTION 03/02/2011 DEANDRE CUEVAS MD N 599.0 URINARY TRACT INFECTION 03/02/2011 BAH DO, COCO K 599.0 URINARY TRACT INFECTION 03/02/2011 MADL CORPORATE TRAINER, ALBIN L 599.0 URINARY TRACT INFECTION 03/02/2011 BAH DO, COCO K 599.0 URINARY TRACT INFECTION 03/02/2011 DEANDRE CUEVAS MD 599.0 URINARY TRACT INFECTION 03/02/2011 MADL CORPORATE TRAINER, ALBIN L 599.0 URINARY TRACT INFECTION 03/02/2011 MADL CORPORATE TRAINER, ALBIN L 599.0 URINARY TRACT INFECTION 03/02/2011 BAH DO, COCO K 599.0 URINARY TRACT INFECTION 03/28/2011 274.9 GOUT 03/28/2011 AHSAN CHANG APRN 274.9 GOUT 03/28/2011 MALIK SANTIAGO APRN R 274.9 GOUT 03/28/2011 BAH DO, COCO K 274.9 GOUT 03/28/2011 BAH DO, COCO K 274.9 GOUT 03/28/2011 MADL CORPORATE TRAINER, ALBIN L 274.9 GOUT 03/28/2011 MADL CORPORATE TRAINER, ALBIN L 274.9 GOUT 03/28/2011 BAH DO, COCO K 274.9 GOUT 03/28/2011 BAH DO, COCO K 274.9 GOUT 03/28/2011 DEANDRE CUEVAS MD N 274.9 GOUT 03/28/2011 BAH DO, COCO K 274.9 GOUT 03/28/2011 MADL CORPORATE TRAINER, ALBIN L 274.9 GOUT 03/28/2011 BAH DO, COCO K 274.9 GOUT 03/28/2011 DEANDRE CUEVAS MD N 274.9 GOUT 03/28/2011 MADL CORPORATE TRAINER, ALBIN L 274.9 GOUT 03/28/2011 MADL CORPORATE TRAINER, ALBIN L 274.9 GOUT 03/28/2011 BAH DO, COCO K 274.9 GOUT 07/26/2011 272.4 HYPERLIPIDEMIA 07/26/2011 AHSAN CHANG APRN 272.4 HYPERLIPIDEMIA 07/26/2011 MALIK SANTIAGO APRN R 272.4 HYPERLIPIDEMIA 07/26/2011 BAH DO, COCO K 272.4 HYPERLIPIDEMIA 07/26/2011 BAH DO, COCO K 272.4 HYPERLIPIDEMIA 07/26/2011 MADL CORPORATE TRAINER, ALBIN L 272.4 HYPERLIPIDEMIA 07/26/2011 MADL CORPORATE TRAINER, ALBIN L 272.4 HYPERLIPIDEMIA 07/26/2011 BAH DO, COCO K 272.4 HYPERLIPIDEMIA 07/26/2011 BAH DO, COCO K 272.4 HYPERLIPIDEMIA 07/26/2011 DEANDRE CUEVAS MD 272.4 HYPERLIPIDEMIA 07/26/2011 BAH DO, COCO K 272.4 HYPERLIPIDEMIA 07/26/2011 MADL CORPORATE TRAINER, ALBIN L 272.4 HYPERLIPIDEMIA 07/26/2011 BAH DO, COCO K 272.4 HYPERLIPIDEMIA 07/26/2011 DEANDRE CUEVAS MD 272.4 HYPERLIPIDEMIA 07/26/2011 MADL CORPORATE TRAINER, ALBIN L 272.4 HYPERLIPIDEMIA 07/26/2011 MADL CORPORATE TRAINER, ALBIN L 272.4 HYPERLIPIDEMIA 07/26/2011 BAH DO, COCO K 272.4 HYPERLIPIDEMIA 08/15/2011 414.00 CAD 08/15/2011 CHARLENE CORPORATE TRAINERAHSAN [place] 414.00 CAD 08/15/2011 PAMELA CORPORATE TRAINER, MALIK R 414.00 CAD 08/15/2011 BAH DO, COCO K 414.00 CAD 08/15/2011 BAH DO, COCO K 414.00 CAD 08/15/2011 [facility] CORPORATE TRAINER, ALBIN L 414.00 CAD 08/15/2011 [facility] CORPORATE TRAINER, ALBIN L 414.00 CAD 08/15/2011 BAH DO, COCO K 414.00 CAD 08/15/2011 BAH DO, COCO K 414.00 CAD 08/15/2011 DEANDRE CUEVAS MD 414.00 CAD 08/15/2011 BAH DO, COCO K 414.00 CAD 08/15/2011 [facility] CORPORATE TRAINER, ALBIN L 414.00 CAD 08/15/2011 BAH DO, COCO K 414.00 CAD 08/15/2011 DEANDRE CUEVAS MD 414.00 CAD 08/15/2011 [facility] CORPORATE TRAINER, ALBIN L 414.00 CAD 08/15/2011 [facility] CORPORATE TRAINER, ALBIN L 414.00 CAD 08/15/2011 BAH DO, COCO K 414.00 CAD 08/27/2011 Ot 397.0 08/27/2011 Ot 401.9 08/27/2011 Ot 414.01 08/27/2011 Ot 424.0 08/27/2011 Ot 786.50 08/27/2011 Ot V45.82 09/03/2011 250.62 DIABETES W/ NEUROPATHY, TYPE 2 - UNCONTROLLED 09/03/2011 AHSAN CHANG APRN 250.62 DIABETES W/ NEUROPATHY, TYPE 2 - UNCONTROLLED 09/03/2011 MALIK SANTIAGO APRN 250.62 DIABETES W/ NEUROPATHY, TYPE 2 - UNCONTROLLED 09/03/2011 SABRINA BAH DOA K 250.62 DIABETES W/ NEUROPATHY, TYPE 2 - UNCONTROLLED 09/03/2011 NIURKA SINGH COCO K 250.62 DIABETES W/ NEUROPATHY, TYPE 2 - UNCONTROLLED 09/03/2011 ALBIN RENAE APRN L 250.62 DIABETES W/ NEUROPATHY, TYPE 2 - UNCONTROLLED 09/03/2011 AIMEE RENAE APRNA L 250.62 DIABETES W/ NEUROPATHY, TYPE 2 - UNCONTROLLED 09/03/2011 SABRINA BAH DOA K 250.62 DIABETES W/ NEUROPATHY, TYPE 2 - UNCONTROLLED 09/03/2011 SABRINA BAH DOA K 250.62 DIABETES W/ NEUROPATHY, TYPE 2 - UNCONTROLLED 09/03/2011 FAITH MALIN, DEANDRE N 250.62 DIABETES W/ NEUROPATHY, TYPE 2 - UNCONTROLLED 09/03/2011 NIURKA SINGH COCO K 250.62 DIABETES W/ NEUROPATHY, TYPE 2 - UNCONTROLLED 09/03/2011 AIMEE RENAE APRNA L 250.62 DIABETES W/ NEUROPATHY, TYPE 2 - UNCONTROLLED 09/03/2011 SABRINA BAH DOA K 250.62 DIABETES W/ NEUROPATHY, TYPE 2 - UNCONTROLLED 09/03/2011 FAITH MALIN, DEANDRE N 250.62 DIABETES W/ NEUROPATHY, TYPE 2 - UNCONTROLLED 09/03/2011 ALBIN RENAE APRN L 250.62 DIABETES W/ NEUROPATHY, TYPE 2 - UNCONTROLLED 09/03/2011 AIMEE RENAE APRNA L 250.62 DIABETES W/ NEUROPATHY, TYPE 2 - UNCONTROLLED 09/03/2011 SABRINA BAH DOA K 250.62 DIABETES W/ NEUROPATHY, TYPE 2 - UNCONTROLLED 09/12/2011 465.9 Upper Respiratory Infection 09/12/2011 AHSAN CHANG APRN 465.9 Upper Respiratory Infection 09/12/2011 PAMELA CORPORATE TRAINER, MALIK R 465.9 Upper Respiratory Infection 09/12/2011 BAH DO, COCO K 465.9 Upper Respiratory Infection 09/12/2011 BAH DO, COCO K 465.9 Upper Respiratory Infection 09/12/2011 MADL CORPORATE TRAINER, ALBIN L 465.9 Upper Respiratory Infection 09/12/2011 MADL CORPORATE TRAINER, ALBIN L 465.9 Upper Respiratory Infection 09/12/2011 BAH DO, COCO K 465.9 Upper Respiratory Infection 09/12/2011 BAH DO, COCO K 465.9 Upper Respiratory Infection 09/12/2011 DEANDRE CUEVAS MD N 465.9 Upper Respiratory Infection 09/12/2011 BAH DO, COCO K 465.9 Upper Respiratory Infection 09/12/2011 MADL CORPORATE TRAINER, ALBIN L 465.9 Upper Respiratory Infection 09/12/2011 BAH DO, COCO K 465.9 Upper Respiratory Infection 09/12/2011 DEANDRE CUEVAS MD 465.9 Upper Respiratory Infection 09/12/2011 MADL CORPORATE TRAINER, ALBIN L 465.9 Upper Respiratory Infection 09/12/2011 MADL CORPORATE TRAINER, ALBIN L 465.9 Upper Respiratory Infection 09/12/2011 BAH DO, COCO K 465.9 Upper Respiratory Infection 10/04/2011 692.9 Dermatitis Contact Unspecified 10/04/2011 AHSAN CHANG APRN 692.9 Dermatitis Contact Unspecified 10/04/2011 MALIK SANTIAGO APRN R 692.9 Dermatitis Contact Unspecified 10/04/2011 BAH DO, COCO K 692.9 Dermatitis Contact Unspecified 10/04/2011 BAH DO, COCO K 692.9 Dermatitis Contact Unspecified 10/04/2011 MADL CORPORATE TRAINER, ALBIN L 692.9 Dermatitis Contact Unspecified 10/04/2011 MADL CORPORATE TRAINER, ALBIN L 692.9 Dermatitis Contact Unspecified 10/04/2011 BAH DO, COCO K 692.9 Dermatitis Contact Unspecified 10/04/2011 BAH DO, COCO K 692.9 Dermatitis Contact Unspecified 10/04/2011 DEANDRE CUEVAS MD 692.9 Dermatitis Contact Unspecified 10/04/2011 BAH DO, COCO K 692.9 Dermatitis Contact Unspecified 10/04/2011 [facility] CORPORATE TRAINER, ALBIN L 692.9 Dermatitis Contact Unspecified 10/04/2011 BAH DO, COCO K 692.9 Dermatitis Contact Unspecified 10/04/2011 DEANDRE CUEVAS MD 692.9 Dermatitis Contact Unspecified 10/04/2011 MADL CORPORATE TRAINER, ALBIN L 692.9 Dermatitis Contact Unspecified 10/04/2011 MADL CORPORATE TRAINER, ALBIN L 692.9 Dermatitis Contact Unspecified 10/04/2011 BAH DO, COCO K 692.9 Dermatitis Contact Unspecified 10/15/2011 466.0 Acute Bronchitis 10/15/2011 AHSAN CHANG APRN 466.0 Acute Bronchitis 10/15/2011 PAMELA RIVERA, MALIK R 466.0 Acute Bronchitis 10/15/2011 BAH DO, COCO K 466.0 Acute Bronchitis 10/15/2011 BAH DO, COCO K 466.0 Acute Bronchitis 10/15/2011 MADL CORPORATE TRAINER ALBIN L 466.0 Acute Bronchitis 10/15/2011 MADL CORPORATE TRAINER, ALBIN L 466.0 Acute Bronchitis 10/15/2011 BAH DO, COCO K 466.0 Acute Bronchitis 10/15/2011 BAH DO, COCO K 466.0 Acute Bronchitis 10/15/2011 DEANDRE CUEVAS MD N 466.0 Acute Bronchitis 10/15/2011 BAH DO, COCO K 466.0 Acute Bronchitis 10/15/2011 MADL CORPORATE TRAINER, ALBIN L 466.0 Acute Bronchitis 10/15/2011 BAH DO, COCO K 466.0 Acute Bronchitis 10/15/2011 DEANDRE CUEVAS MD N 466.0 Acute Bronchitis 10/15/2011 [employer]AD[employer] CORPORATE TRAINER, ALBIN L 466.0 Acute Bronchitis 10/15/2011 MADL CORPORATE TRAINER, ALBIN L 466.0 Acute Bronchitis 10/15/2011 BAH DO, COCO K 466.0 Acute Bronchitis 11/01/2011 682.7 Cellulitis - Foot 11/01/2011 AHSAN CHANG APRN 682.7 Cellulitis - Foot 11/01/2011 PAMELA CORPORATE TRAINER, MALIK R 682.7 Cellulitis - Foot 11/01/2011 BAH DO, COCO K 682.7 Cellulitis - Foot 11/01/2011 BAH DO, COCO K 682.7 Cellulitis - Foot 11/01/2011 MADL CORPORATE TRAINER, ALBIN L 682.7 Cellulitis - Foot 11/01/2011 MADL CORPORATE TRAINER, ALBIN L 682.7 Cellulitis - Foot 11/01/2011 BAH DO, COCO K 682.7 Cellulitis - Foot 11/01/2011 BAH DO, COCO K 682.7 Cellulitis - Foot 11/01/2011 FAITH MALIN, DEANDRE N 682.7 Cellulitis - Foot 11/01/2011 BHA DO, COCO K 682.7 Cellulitis - Foot 11/01/2011 MADL CORPORATE TRAINER, ALBIN L 682.7 Cellulitis - Foot 11/01/2011 BAH DO, COCO K 682.7 Cellulitis - Foot 11/01/2011 DEANDRE CUEVAS MD N 682.7 Cellulitis - Foot 11/01/2011 MADL CORPORATE TRAINER, ALBIN L 682.7 Cellulitis - Foot 11/01/2011 MADL CORPORATE TRAINER, ALBIN L 682.7 Cellulitis - Foot 11/01/2011 BHA DO, COCO K 682.7 Cellulitis - Foot 11/28/2011 724.2 lower back pain 11/28/2011 V03.82 Need For Vaccination Pneumococcal 11/28/2011 AHSAN CHANG APRN 724.2 lower back pain 11/28/2011 AHSAN CHANG APRN V03.82 Need For Vaccination Pneumococcal 11/28/2011 MALIK SANTIAGO APRN R 724.2 lower back pain 11/28/2011 MALIK SANTIAGO APRN R V03.82 Need For Vaccination Pneumococcal 11/28/2011 SABRINA BAH DOA K 724.2 lower back pain 11/28/2011 BAH DO COCO K V03.82 Need For Vaccination Pneumococcal 11/28/2011 BAH DO, COCO K 724.2 lower back pain 11/28/2011 BAH DO, COCO K V03.82 Need For Vaccination Pneumococcal 11/28/2011 MADAnnabelle CORPORATE TRAINER, ALBIN L 724.2 lower back pain 11/28/2011 MADL CORPORATE TRAINER, ALBIN L V03.82 Need For Vaccination Pneumococcal 11/28/2011 MADAnnabelle CORPORATE TRAINER, ALBIN L 724.2 lower back pain 11/28/2011 MADL CORPORATE TRAINER, ALBIN L V03.82 Need For Vaccination Pneumococcal 11/28/2011 BAH DO, COCO K 724.2 lower back pain 11/28/2011 BAH DO COCO K V03.82 Need For Vaccination Pneumococcal 11/28/2011 BAH DO COCO K 724.2 lower back pain 11/28/2011 BAH DO, COCO K V03.82 Need For Vaccination Pneumococcal 11/28/2011 DEANDRE CUEVAS MD 724.2 lower back pain 11/28/2011 DEANDRE CUEVAS MD V03.82 Need For Vaccination Pneumococcal 11/28/2011 BAH DOSABRINAA K 724.2 lower back pain 11/28/2011 BAH DO COCO K V03.82 Need For Vaccination Pneumococcal 11/28/2011 MADL ALBIN RIVERA 724.2 lower back pain 11/28/2011 CALLIEL AIMEE RIVERAA L V03.82 Need For Vaccination Pneumococcal 11/28/2011 COCO BAH DO K 724.2 lower back pain 11/28/2011 SABRINA BAH DOA K V03.82 Need For Vaccination Pneumococcal 11/28/2011 DEANDRE CUEVAS MD N 724.2 lower back pain 11/28/2011 DEANDRE CUEVAS MD N V03.82 Need For Vaccination Pneumococcal 11/28/2011 MADL CORPORATE TRAINERAIMEE MayberryA L 724.2 lower back pain 11/28/2011 MADL TONY RIVERANYA L V03.82 Need For Vaccination Pneumococcal 11/28/2011 MADL CORPORATE TRAINERAIMEE MayberryA L 724.2 lower back pain 11/28/2011 MADL CORPORATE TRAINER, ALBIN L V03.82 Need For Vaccination Pneumococcal 11/28/2011 SABRINA BAH DOA K 724.2 lower back pain 11/28/2011 SABRINA BAH DOA K V03.82 Need For Vaccination Pneumococcal 01/09/2012 438.9 CVA LATE EFFECTS 01/09/2012 782.3 EDEMA 01/09/2012 AHSAN CHANG APRN 438.9 CVA LATE EFFECTS 01/09/2012 AHSAN CHANG APRN 782.3 EDEMA 01/09/2012 MALIK SANTIAGO APRN 438.9 CVA LATE EFFECTS 01/09/2012 MALIK SANTIAGO APRN R 782.3 EDEMA 01/09/2012 BAH DO, COCO K 438.9 CVA LATE EFFECTS 01/09/2012 BAH DO, COCO K 782.3 EDEMA 01/09/2012 BAH DO, COCO K 438.9 CVA LATE EFFECTS 01/09/2012 BAH DO, COCO K 782.3 EDEMA 01/09/2012 MADL CORPORATE TRAINER, ALBIN L 438.9 CVA LATE EFFECTS 01/09/2012 MADL CORPORATE TRAINER, ALBIN L 782.3 EDEMA 01/09/2012 MADL CORPORATE TRAINER, ALBIN L 438.9 CVA LATE EFFECTS 01/09/2012 MADL CORPORATE TRAINER, ALBIN L 782.3 EDEMA 01/09/2012 BAH DO, COCO K 438.9 CVA LATE EFFECTS 01/09/2012 BAH DO, COCO K 782.3 EDEMA 01/09/2012 BHA DO, COCO K 438.9 CVA LATE EFFECTS 01/09/2012 ABH DO, COCO K 782.3 EDEMA 01/09/2012 DEANDRE CUEVAS MD N 438.9 CVA LATE EFFECTS 01/09/2012 DEANDER CUEVAS MD N 782.3 EDEMA 01/09/2012 BAH DO, COCO K 438.9 CVA LATE EFFECTS 01/09/2012 BAH DO, COCO K 782.3 EDEMA 01/09/2012 MADL CORPORATE TRAINER, ALBIN L 438.9 CVA LATE EFFECTS 01/09/2012 MADL CORPORATE TRAINER, ALBIN L 782.3 EDEMA 01/09/2012 BAH DO, COCO K 438.9 CVA LATE EFFECTS 01/09/2012 BAH DO, COCO K 782.3 EDEMA 01/09/2012 DEANDRE CUEVAS MD N 438.9 CVA LATE EFFECTS 01/09/2012 DEANDRE CUEVAS MD N 782.3 EDEMA 01/09/2012 MADL CORPORATE TRAINER, ALBIN L 438.9 CVA LATE EFFECTS 01/09/2012 MADL CORPORATE TRAINER, ALBIN L 782.3 EDEMA 01/09/2012 MADL CORPORATE TRAINER, ALBIN L 438.9 CVA LATE EFFECTS 01/09/2012 MADL CORPORATE TRAINER, ALBIN L 782.3 EDEMA 01/09/2012 BAH DO, COCO K 438.9 CVA LATE EFFECTS 01/09/2012 NIURKA SINGH COCO K 782.3 EDEMA 02/21/2012 Ot 518.0 PULMONARY COLLAPSE 02/21/2012 Ot 847.0 SPRAIN OF NECK 02/21/2012 Ot 924.11 CONTUSION OF KNEE 02/21/2012 Ot 924.20 CONTUSION OF FOOT 02/21/2012 Ot 959.7 LOWER LEG INJURY NOS 02/21/2012 Ot E000.8 OTHER EXTERNAL CAUSE STATUS 02/21/2012 Ot E849.0 ACCIDENT IN HOME 02/21/2012 Ot E888.9 FALL NOS 02/25/2012 599.0 Urinary Tract Infection Site Not Specified 02/25/2012 845.10 Unspecified Site Of Foot Sprain 02/25/2012 AHSAN CHANG APRN 599.0 Urinary Tract Infection Site Not Specified 02/25/2012 AHSAN CHANG APRN 845.10 Unspecified Site Of Foot Sprain 02/25/2012 MALIK SANTIAGO APRN R 599.0 Urinary Tract Infection Site Not Specified 02/25/2012 AMI SANTIAGO APRNINA R 845.10 Unspecified Site Of Foot Sprain 02/25/2012 BAH DO COCO K 599.0 Urinary Tract Infection Site Not Specified 02/25/2012 NIURKA SINGH COCO K 845.10 Unspecified Site Of Foot Sprain 02/25/2012 BAH DO COCO K 599.0 Urinary Tract Infection Site Not Specified 02/25/2012 BAH DO COCO K 845.10 Unspecified Site Of Foot Sprain 02/25/2012 MADL CORPORATE TRAINER, ALBIN L 599.0 Urinary Tract Infection Site Not Specified 02/25/2012 MADL CORPORATE TRAINER, ALBIN L 845.10 Unspecified Site Of Foot Sprain 02/25/2012 MADL CORPORATE TRAINER, ALBIN L 599.0 Urinary Tract Infection Site Not Specified 02/25/2012 MADL CORPORATE TRAINER, ALBIN L 845.10 Unspecified Site Of Foot Sprain 02/25/2012 BAH DO COCO K 599.0 Urinary Tract Infection Site Not Specified 02/25/2012 BAH DO COCO K 845.10 Unspecified Site Of Foot Sprain 02/25/2012 BAH DO COCO K 599.0 Urinary Tract Infection Site Not Specified 02/25/2012 BAH DO, COCO K 845.10 Unspecified Site Of Foot Sprain 02/25/2012 DEANDRE CUEVAS MD N 599.0 Urinary Tract Infection Site Not Specified 02/25/2012 DEANDRE CUEVAS MD N 845.10 Unspecified Site Of Foot Sprain 02/25/2012 BAH DO, COCO K 599.0 Urinary Tract Infection Site Not Specified 02/25/2012 BAH DO, COCO K 845.10 Unspecified Site Of Foot Sprain 02/25/2012 MADL CORPORATE TRAINER, ALBIN L 599.0 Urinary Tract Infection Site Not Specified 02/25/2012 MADL CORPORATE TRAINER, ALBIN L 845.10 Unspecified Site Of Foot Sprain 02/25/2012 BAH DO, COCO K 599.0 Urinary Tract Infection Site Not Specified 02/25/2012 BAH DO COCO K 845.10 Unspecified Site Of Foot Sprain 02/25/2012 DEANDRE CUEVAS MD N 599.0 Urinary Tract Infection Site Not Specified 02/25/2012 DEANDRE CUEVAS MD N 845.10 Unspecified Site Of Foot Sprain 02/25/2012 MADL CORPORATE TRAINER, ALBIN L 599.0 Urinary Tract Infection Site Not Specified 02/25/2012 MADL CORPORATE TRAINER, ALBIN L 845.10 Unspecified Site Of Foot Sprain 02/25/2012 MADL CORPORATE TRAINER, ALBIN L 599.0 Urinary Tract Infection Site Not Specified 02/25/2012 MADL CORPORATE TRAINER, ALBIN L 845.10 Unspecified Site Of Foot Sprain 02/25/2012 BAH DO, COCO K 599.0 Urinary Tract Infection Site Not Specified 02/25/2012 BAH DO, COCO K 845.10 Unspecified Site Of Foot Sprain 03/12/2012 719.46 KNEE PAIN 03/12/2012 AHSAN CHANG APRN 719.46 KNEE PAIN 03/12/2012 MALIK SANTIAGO APRN 719.46 KNEE PAIN 03/12/2012 BAH DO COCO K 719.46 KNEE PAIN 03/12/2012 BAH DO COCO K 719.46 KNEE PAIN 03/12/2012 MADL CORPORATE TRAINER, ALBIN L 719.46 KNEE PAIN 03/12/2012 MADL CORPORATE TRAINER, ALBIN L 719.46 KNEE PAIN 03/12/2012 BAH DO, COCO K 719.46 KNEE PAIN 03/12/2012 BAH DO, COCO K 719.46 KNEE PAIN 03/12/2012 FAITH MALIN, DEANDRE N 719.46 KNEE PAIN 03/12/2012 BAH DO, COOC K 719.46 KNEE PAIN 03/12/2012 MADL CORPORATE TRAINER, ALBIN L 719.46 KNEE PAIN 03/12/2012 BAH DO, COCO K 719.46 KNEE PAIN 03/12/2012 FAITH MALIN, DEANDRE N 719.46 KNEE PAIN 03/12/2012 MADL CORPORATE TRAINER, ALBIN L 719.46 KNEE PAIN 03/12/2012 MADL CORPORATE TRAINER, ALBIN L 719.46 KNEE PAIN 03/12/2012 BAH DO, COCO K 719.46 KNEE PAIN 04/16/2012 780.2 SYNCOPE AND COLLAPSE 04/16/2012 786.2 COUGH 04/16/2012 AHSAN CHANG APRN 780.2 SYNCOPE AND COLLAPSE 04/16/2012 AHSAN CHANG APRN 786.2 COUGH 04/16/2012 PAMELA CORPORATE TRAINER, MALIK R 780.2 SYNCOPE AND COLLAPSE 04/16/2012 PAMELA CORPORATE TRAINER, MALIK R 786.2 COUGH 04/16/2012 BAH DO, COCO K 780.2 SYNCOPE AND COLLAPSE 04/16/2012 BAH DO, COCO K 786.2 COUGH 04/16/2012 BAH DO, COCO K 780.2 SYNCOPE AND COLLAPSE 04/16/2012 BAH DO, COCO K 786.2 COUGH 04/16/2012 MADL CORPORATE TRAINER, ALBIN L 780.2 SYNCOPE AND COLLAPSE 04/16/2012 MADL CORPORATE TRAINER, ALBIN L 786.2 COUGH 04/16/2012 MADL CORPORATE TRAINER, ALBIN L 780.2 SYNCOPE AND COLLAPSE 04/16/2012 MADL CORPORATE TRAINER, ALBIN L 786.2 COUGH 04/16/2012 BAH DO, COCO K 780.2 SYNCOPE AND COLLAPSE 04/16/2012 BAH DO, COCO K 786.2 COUGH 04/16/2012 BAH DO, COCO K 780.2 SYNCOPE AND COLLAPSE 04/16/2012 BAH DO, COCO K 786.2 COUGH 04/16/2012 DEANDRE CUEVAS MD N 780.2 SYNCOPE AND COLLAPSE 04/16/2012 DEANDRE CUEVAS MD N 786.2 COUGH 04/16/2012 BAH DO, COCO K 780.2 SYNCOPE AND COLLAPSE 04/16/2012 BAH DO, COCO K 786.2 COUGH 04/16/2012 MADL CORPORATE TRAINER, ALBIN L 780.2 SYNCOPE AND COLLAPSE 04/16/2012 MADL CORPORATE TRAINER, ALBIN L 786.2 COUGH 04/16/2012 BAH DO, COCO K 780.2 SYNCOPE AND COLLAPSE 04/16/2012 BAH DO, COCO K 786.2 COUGH 04/16/2012 DEANDRE CUEVAS MD N 780.2 SYNCOPE AND COLLAPSE 04/16/2012 DEANDRE CUEVAS MD N 786.2 COUGH 04/16/2012 MADL CORPORATE TRAINER, ALBIN L 780.2 SYNCOPE AND COLLAPSE 04/16/2012 MADL CORPORATE TRAINER, ALBIN L 786.2 COUGH 04/16/2012 MADL CORPORATE TRAINER, ALBIN L 780.2 SYNCOPE AND COLLAPSE 04/16/2012 MADL CORPORATE TRAINER, ALBIN L 786.2 COUGH 04/16/2012 BAH DO, COCO K 780.2 SYNCOPE AND COLLAPSE 04/16/2012 BAH DO, COCO K 786.2 COUGH 10/01/2013 HONEY SEPULVEDA MD Ot 724.2 LUMBAGO 10/01/2013 HONEY SEPULVEDA MD Ot 923.20 CONTUSION OF HAND(S) 10/01/2013 HONEY SEPULVEDA MD Ot 959.4 HAND INJURY NOS 10/01/2013 HONEY SEPULVEDA MD Ot E000.8 OTHER EXTERNAL CAUSE STATUS 10/01/2013 HONEY SEPULVEDA MD Ot E849.0 ACCIDENT IN HOME 10/01/2013 HONEY SEPULVEDA MD Ot E888.9 FALL NOS 12/03/2013 MALIK SANTIAGO APRN R 311 DEPRESSIVE DISORDER NOT ELSEWHERE CLASSIFIED 12/03/2013 MALIK SANTIAGO APRN 599.0 URINARY TRACT INFECTION SITE NOT SPECIFIED 12/03/2013 MALIK SANTIAGO APRN 789.07 ABDOMINAL PAIN GENERALIZED 12/03/2013 COCO BAH DO K 311 DEPRESSIVE DISORDER NOT ELSEWHERE CLASSIFIED 12/03/2013 BAH DO, COCO K 599.0 URINARY TRACT INFECTION SITE NOT SPECIFIED 12/03/2013 BAH DO, COCO K 789.07 ABDOMINAL PAIN GENERALIZED 12/03/2013 BAH DO, COCO K 311 DEPRESSIVE DISORDER NOT ELSEWHERE CLASSIFIED 12/03/2013 BAH DO, COCO K 599.0 URINARY TRACT INFECTION SITE NOT SPECIFIED 12/03/2013 BAH DO, COCO K 789.07 ABDOMINAL PAIN GENERALIZED 12/03/2013 MADL CORPORATE TRAINER, ALBIN L 311 DEPRESSIVE DISORDER NOT ELSEWHERE CLASSIFIED 12/03/2013 MADL CORPORATE TRAINER, ALBIN L 599.0 URINARY TRACT INFECTION SITE NOT SPECIFIED 12/03/2013 MADL CORPORATE TRAINER, ALBIN L 789.07 ABDOMINAL PAIN GENERALIZED 12/03/2013 MADL CORPORATE TRAINER, ALBIN L 311 DEPRESSIVE DISORDER NOT ELSEWHERE CLASSIFIED 12/03/2013 MADL CORPORATE TRAINER, ALBIN L 599.0 URINARY TRACT INFECTION SITE NOT SPECIFIED 12/03/2013 MADL CORPORATE TRAINER, ALBIN L 789.07 ABDOMINAL PAIN GENERALIZED 12/03/2013 BAH DO, COCO K 311 DEPRESSIVE DISORDER NOT ELSEWHERE CLASSIFIED 12/03/2013 BAH DO, COCO K 599.0 URINARY TRACT INFECTION SITE NOT SPECIFIED 12/03/2013 BAH DO, COCO K 789.07 ABDOMINAL PAIN GENERALIZED 12/03/2013 BAH DO, COCO K 311 DEPRESSIVE DISORDER NOT ELSEWHERE CLASSIFIED 12/03/2013 BAH DO, COCO K 599.0 URINARY TRACT INFECTION SITE NOT SPECIFIED 12/03/2013 BAH DO, COCO K 789.07 ABDOMINAL PAIN GENERALIZED 12/03/2013 DEANDRE CUEVAS MD 311 DEPRESSIVE DISORDER NOT ELSEWHERE CLASSIFIED 12/03/2013 DEANDRE CUEVAS MD 599.0 URINARY TRACT INFECTION SITE NOT SPECIFIED 12/03/2013 DEANDRE CUEVAS MD 789.07 ABDOMINAL PAIN GENERALIZED 12/03/2013 BAH DO, COCO K 311 DEPRESSIVE DISORDER NOT ELSEWHERE CLASSIFIED 12/03/2013 BAH DO, COCO K 599.0 URINARY TRACT INFECTION SITE NOT SPECIFIED 12/03/2013 BAH DO, COCO K 789.07 ABDOMINAL PAIN GENERALIZED 12/03/2013 MADL CORPORATE TRAINER, ALBIN L 311 DEPRESSIVE DISORDER NOT ELSEWHERE CLASSIFIED 12/03/2013 MADL CORPORATE TRAINER, ALBIN L 599.0 URINARY TRACT INFECTION SITE NOT SPECIFIED 12/03/2013 MADL CORPORATE TRAINER, ALBIN L 789.07 ABDOMINAL PAIN GENERALIZED 12/03/2013 BAH DO, COCO K 311 DEPRESSIVE DISORDER NOT ELSEWHERE CLASSIFIED 12/03/2013 BAH DO, COCO K 599.0 URINARY TRACT INFECTION SITE NOT SPECIFIED 12/03/2013 BAH DO, COCO K 789.07 ABDOMINAL PAIN GENERALIZED 12/03/2013 DEANDRE CUEVAS MD 311 DEPRESSIVE DISORDER NOT ELSEWHERE CLASSIFIED 12/03/2013 DEANDRE CUEVAS MD N 599.0 URINARY TRACT INFECTION SITE NOT SPECIFIED 12/03/2013 DEANDRE CUEVAS MD N 789.07 ABDOMINAL PAIN GENERALIZED 12/03/2013 MADL CORPORATE TRAINER, ALBIN L 311 DEPRESSIVE DISORDER NOT ELSEWHERE CLASSIFIED 12/03/2013 MADL CORPORATE TRAINER, ALBIN L 599.0 URINARY TRACT INFECTION SITE NOT SPECIFIED 12/03/2013 MADL CORPORATE TRAINER, ALBIN L 789.07 ABDOMINAL PAIN GENERALIZED 12/03/2013 MADL CORPORATE TRAINER, ALBIN L 311 DEPRESSIVE DISORDER NOT ELSEWHERE CLASSIFIED 12/03/2013 MADL CORPORATE TRAINER, ALBIN L 599.0 URINARY TRACT INFECTION SITE NOT SPECIFIED 12/03/2013 MADL CORPORATE TRAINER, ALBIN L 789.07 ABDOMINAL PAIN GENERALIZED 12/03/2013 BAH DO, COCO K 311 DEPRESSIVE DISORDER NOT ELSEWHERE CLASSIFIED 12/03/2013 BAH DO, COCO K 599.0 URINARY TRACT INFECTION SITE NOT SPECIFIED 12/03/2013 BAH DO, COCO K 789.07 ABDOMINAL PAIN GENERALIZED 01/28/2014 MADL CORPORATE TRAINER, ALBIN L 719.41 PAIN IN JOINT INVOLVING SHOULDER REGION 01/28/2014 MADL CORPORATE TRAINER, ALBIN L 780.52 INSOMNIA UNSPECIFIED 01/28/2014 MADL CORPORATE TRAINER, ALBIN L 788.1 DYSURIA 01/28/2014 MADL CORPORATE TRAINER, ALBIN L 719.41 PAIN IN JOINT INVOLVING SHOULDER REGION 01/28/2014 MADL CORPORATE TRAINER, ALBIN L 780.52 INSOMNIA UNSPECIFIED 01/28/2014 MADL CORPORATE TRAINER, ALBIN L 788.1 DYSURIA 01/28/2014 BAH DO, COCO K 719.41 PAIN IN JOINT INVOLVING SHOULDER REGION 01/28/2014 BAH DO, COCO K 780.52 INSOMNIA UNSPECIFIED 01/28/2014 BAH DO, COCO K 788.1 DYSURIA 01/28/2014 BAH DO, COCO K 719.41 PAIN IN JOINT INVOLVING SHOULDER REGION 01/28/2014 BAH DO, COCO K 780.52 INSOMNIA UNSPECIFIED 01/28/2014 BAH DO, COCO K 788.1 DYSURIA 01/28/2014 DEANDRE CUEVAS MD 719.41 PAIN IN JOINT INVOLVING SHOULDER REGION 01/28/2014 DEANDRE CUEVAS MD 780.52 INSOMNIA UNSPECIFIED 01/28/2014 DEANDRE CUEVAS MD 788.1 DYSURIA 01/28/2014 BAH DO, COCO K 719.41 PAIN IN JOINT INVOLVING SHOULDER REGION 01/28/2014 BAH DO, COCO K 780.52 INSOMNIA UNSPECIFIED 01/28/2014 BAH DO, COCO K 788.1 DYSURIA 01/28/2014 MADL CORPORATE TRAINER, ALBIN L 719.41 PAIN IN JOINT INVOLVING SHOULDER REGION 01/28/2014 MADL CORPORATE TRAINER, ALBIN L 780.52 INSOMNIA UNSPECIFIED 01/28/2014 MADL CORPORATE TRAINER, ALBIN L 788.1 DYSURIA 01/28/2014 BAH DO, COCO K 719.41 PAIN IN JOINT INVOLVING SHOULDER REGION 01/28/2014 BAH DO, COCO K 780.52 INSOMNIA UNSPECIFIED 01/28/2014 BAH DO, COCO K 788.1 DYSURIA 01/28/2014 DEANDRE CUEVAS MD 719.41 PAIN IN JOINT INVOLVING SHOULDER REGION 01/28/2014 DEANDRE CUEVAS MD 780.52 INSOMNIA UNSPECIFIED 01/28/2014 DEANDRE CUEVAS MD 788.1 DYSURIA 01/28/2014 MADL CORPORATE TRAINER, ALBIN L 719.41 PAIN IN JOINT INVOLVING SHOULDER REGION 01/28/2014 MADL CORPORATE TRAINER, ALBIN L 780.52 INSOMNIA UNSPECIFIED 01/28/2014 MADL CORPORATE TRAINER, ALBIN L 788.1 DYSURIA 01/28/2014 MADL CORPORATE TRAINER, ALBIN L 719.41 PAIN IN JOINT INVOLVING SHOULDER REGION 01/28/2014 MADL CORPORATE TRAINER, ALBIN L 780.52 INSOMNIA UNSPECIFIED 01/28/2014 MADL CORPORATE TRAINER, ALBIN L 788.1 DYSURIA 01/28/2014 COCO BAH DO 719.41 PAIN IN JOINT INVOLVING SHOULDER REGION 01/28/2014 COCO BAH DO K 780.52 INSOMNIA UNSPECIFIED 01/28/2014 COCO BAH DO 788.1 DYSURIA 03/26/2014 DEANDRE CUEVAS MD Ot 041.49 OTHER AND UNSPECIFIED ESCHERICHIA COLI [ 03/26/2014 DEANDRE CUEVAS MD Ot 250.02 DIAB MIKEY WO COMPL, TYPE II OR UNSPEC TY 03/26/2014 DEANDRE CUEVAS MD Ot 272.4 HYPERLIPIDEMIA NEC/NOS 03/26/2014 DEANDRE CUEVAS MD Ot 278.00 OBESITY, NOS 03/26/2014 DEANDRE CUEVAS MD Ot 305.1 TOBACCO USE DISORDER 03/26/2014 DEANDRE CUEVAS MD Ot 356.9 IDIO PERIPH NEURPTHY NOS 03/26/2014 DEANDRE CUEVAS MD Ot 401.9 HYPERTENSION NOS 03/26/2014 DEANDRE CUEVAS MD Ot 496 CHR AIRWAY OBSTRUCT NEC 03/26/2014 DEANDRE CUEVAS MD Ot 530.81 ESOPHAGEAL REFLUX 03/26/2014 DEANDRE CUEVAS MD Ot 599.0 URIN TRACT INFECTION NOS 03/26/2014 DEANDRE CUEVAS MD Ot V15.81 HX OF PAST NONCOMPLIANCE 03/26/2014 DEANDRE CUEVAS MD Ot V85.32 BODY MASS INDEX 32.0-32.9, ADULT 05/18/2014 COCO BAH DO 381.01 ACUTE SEROUS OTITIS MEDIA 05/18/2014 ALBIN RENAE APRN 381.01 ACUTE SEROUS OTITIS MEDIA 05/18/2014 COCO BAH DO 381.01 ACUTE SEROUS OTITIS MEDIA 05/18/2014 DEANDRE CUEVAS MD 381.01 ACUTE SEROUS OTITIS MEDIA 05/18/2014 ALBIN RENAE APRN 381.01 ACUTE SEROUS OTITIS MEDIA 05/18/2014 ALBIN RENAE APRN 381.01 ACUTE SEROUS OTITIS MEDIA 05/18/2014 COCO BAH DO K 381.01 ACUTE SEROUS OTITIS MEDIA 05/20/2014 COCO BAH DO K 357.2 DIABETIC PERPHERAL NEUROPATHY 05/20/2014 MADL CORPORATE TRAINER, ALBIN L 357.2 DIABETIC PERPHERAL NEUROPATHY 05/20/2014 COCO BAH DO K 357.2 DIABETIC PERPHERAL NEUROPATHY 05/20/2014 DEANDRE CUEVAS MD 357.2 DIABETIC PERPHERAL NEUROPATHY 05/20/2014 CALLIEL CORPORATE TRAINER, ALBIN L 357.2 DIABETIC PERPHERAL NEUROPATHY 05/20/2014 OC RIVERA, ALBIN L 357.2 DIABETIC PERPHERAL NEUROPATHY 05/20/2014 COCO BAH DO K 357.2 DIABETIC PERPHERAL NEUROPATHY 06/23/2014 Ot 611.72 06/24/2014 LEANN CONTRERAS L Ot 250.00 DIAB MIKEY WO COMPL, TYPE II OR UNSPEC TY 06/24/2014 LEANN CONTRERAS Ot 305.1 TOBACCO USE DISORDER 06/24/2014 LEANN CONTRERAS L Ot 308.1 STRESS REACTION, FUGUE 06/24/2014 LEANN CONTRERAS L Ot 401.9 HYPERTENSION NOS 06/24/2014 LEANN CONTRERAS Ot 599.0 URIN TRACT INFECTION NOS 06/24/2014 LEANN CONTRERAS Ot 780.4 DIZZINESS AND GIDDINESS 06/24/2014 LEANN CONTRERAS L Ot 784.0 HEADACHE 07/01/2014 OC CORPORATE TRAINER, ALBIN L 599.0 URINARY TRACT INFECTION 07/01/2014 OC CORPORATE TRAINER, ALBIN L 729.5 PAIN IN LIMB 07/01/2014 COCO BAH DO K 599.0 URINARY TRACT INFECTION 07/01/2014 COCO BAH DO K 729.5 PAIN IN LIMB 07/01/2014 DEANDRE CEUVAS MD N 599.0 URINARY TRACT INFECTION 07/01/2014 DEANDRE CUEVAS MD 729.5 PAIN IN LIMB 07/01/2014 MADL CORPORATE TRAINER, ALBIN L 599.0 URINARY TRACT INFECTION 07/01/2014 OC CORPORATE TRAINER, ALBIN L 729.5 PAIN IN LIMB 07/01/2014 MADL CORPORATE TRAINER, ALBIN L 599.0 URINARY TRACT INFECTION 07/01/2014 MADL CORPORATE TRAINER, ALBIN L 729.5 PAIN IN LIMB 07/01/2014 SABRINA BAH DOA K 599.0 URINARY TRACT INFECTION 07/01/2014 COCO BAH DO K 729.5 PAIN IN LIMB 07/23/2014 Ot 611.72 07/24/2014 DEANDRE CUEVAS MD Ot 250.62 DIAB W NEURO MANIFEST, TYPE II OR UNSPEC 07/24/2014 DEANDRE CUEVAS MD N Ot 276.1 HYPOSMOLALITY 07/24/2014 DEANDRE CUEVAS MD N Ot 305.1 TOBACCO USE DISORDER 07/24/2014 DEANDRE CUEVAS MD Ot 357.2 NEUROPATHY IN DIABETES 07/24/2014 DEANDRE CUEVAS MD N Ot 250.62 07/24/2014 DEANDRE CUEVAS MD Ot 276.1 07/24/2014 DEANDRE CUEVAS MD Ot 305.1 07/24/2014 DEANDRE CUEVAS MD Ot 357.2 08/26/2014 DEANDRE CUEVAS MD N 536.8 DYSPEPSIA AND OTHER SPECIFIED DISORDERS OF FUNCTION OF STOMACH 08/26/2014 AIMEE RENAE APRNA L 536.8 DYSPEPSIA AND OTHER SPECIFIED DISORDERS OF FUNCTION OF STOMACH 08/26/2014 ROMAN RENAE APRNWNYA L 536.8 DYSPEPSIA AND OTHER SPECIFIED DISORDERS OF FUNCTION OF STOMACH 08/26/2014 COCO BAH DO K 536.8 DYSPEPSIA AND OTHER SPECIFIED DISORDERS OF FUNCTION OF STOMACH 09/30/2014 OC RIVERA ALBIN L 110.4 DERMATOPHYTOSIS OF FOOT 09/30/2014 CALLIEL NICOLE ALBIN L 780.79 OTHER MALAISE AND FATIGUE 09/30/2014 CALLIEL ROMAN RIVERAWNYA L 110.4 DERMATOPHYTOSIS OF FOOT 09/30/2014 MADL NICOLE ALBIN L 780.79 OTHER MALAISE AND FATIGUE 09/30/2014 COCO BAH DO K 110.4 DERMATOPHYTOSIS OF FOOT 09/30/2014 COCO BAH DO K 780.79 OTHER MALAISE AND FATIGUE 10/11/2014 OC RIVERA ALBIN L 250.42 DIABETES W/ NEPHROPATHY, TYPE 2 - UNCONTROLLED 10/11/2014 ROMAN RENAE APRNWNYA L 250.42 DIABETES W/ NEPHROPATHY, TYPE 2 - UNCONTROLLED 10/11/2014 COCO BAH DO K 250.42 DIABETES W/ NEPHROPATHY, TYPE 2 - UNCONTROLLED 10/28/2014 CALLIEAnnabelle CORPORATE TRAINERALBIN [place] L 250.80 DIABETES WITH OTHER SPECIFIED MANIFESTATIONS TYPE II OR UNSPECIFIED TYPE NOT STATED UNCONTROLLED 10/28/2014 CALLIEAnnabelle CORPORATE TRAINERALBIN [place] L 250.80 DIABETES WITH OTHER SPECIFIED MANIFESTATIONS TYPE II OR UNSPECIFIED TYPE NOT STATED UNCONTROLLED 10/28/2014 COCO BAH DO 250.80 DIABETES WITH OTHER SPECIFIED MANIFESTATIONS TYPE II OR UNSPECIFIED TYPE NOT STATED UNCONTROLLED 11/12/2014 Ot 272.4 11/12/2014 Ot 305.1 11/12/2014 Ot 401.9 11/12/2014 Ot 786.50 11/17/2014 ALBIN RENAE APRN 789.00 ABDOMINAL PAIN UNSPECIFIED SITE 11/17/2014 COCO BAH DO 789.00 ABDOMINAL PAIN UNSPECIFIED SITE 12/09/2014 ALBIN RENAE POLLS OR SURVEYS INTERVIEWER Ot 571.8 12/09/2014 ALBIN RENAE POLLS OR SURVEYS INTERVIEWER Ot 592.0 03/01/2015 LEANN CONTRERAS Ot 110.4 DERMATOPHYTOSIS OF FOOT 03/01/2015 LEANN CONTRERAS Ot 250.00 DIAB MIKEY WO COMPL, TYPE II OR UNSPEC TY 03/01/2015 LEANN CONTRERAS Ot 276.50 VOLUME DEPLETION, UNSPECIFIED 03/01/2015 LEANN CONTRERAS Ot 599.0 URIN TRACT INFECTION NOS 03/01/2015 LEANN CONTRERAS Ot 789.07 ABDOMINAL PAIN, GENERALIZED 03/01/2015 LEANN CONTRERAS Ot V15.81 HX OF PAST NONCOMPLIANCE 03/01/2015 LEANN CONTRERAS Ot V58.67 LONG-TERM (CURRENT) USE OF INSULIN 03/01/2015 LEANN CNOTRERAS Ot V58.69 OTH MED,LT,CURRENT USE 04/08/2015 BERT JASON APRN Ot 611.71 07/29/2015 Ot 611.72 07/29/2015 Ot 272.4 07/29/2015 Ot 305.1 07/29/2015 Ot 401.9 07/29/2015 Ot 786.50 07/29/2015 ALBIN RENAE POLLS OR SURVEYS INTERVIEWER Ot 571.8 07/29/2015 OCALBIN POLLS OR SURVEYS INTERVIEWER Ot 592.0 07/29/2015 BERT JASON APRN Ot 611.71 08/18/2015 OCALBIN POLLS OR SURVEYS INTERVIEWER Ot M79.662 08/30/2015 OCALBIN POLLS OR SURVEYS INTERVIEWER Ot M79.662 12/09/2015 MANISHA OLIVIA MD Ot L02.32 FURUNCLE OF BUTTOCK 12/09/2015 MANISHA OLIVIA MD, Ot L97.212 NON-PRESSURE CHRONIC ULCER OF RIGHT CALF 12/09/2015 MANISHA OLIVIA MD Ot L98.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 ULCER OF BUTTOCK [place] 12/20/2015 MANISHA OLIVIA MD, Ot L02.32 FURUNCLE OF BUTTOCK 12/20/2015 MANISHA OLIVIA MD, Ot L97.212 NON-PRESSURE CHRONIC ULCER OF RIGHT CALF 12/20/2015 MANISHA OLIVIA MD, Ot L98.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 ULCER OF BUTTOCK [place] 04/18/2017 Ot 272.4 HYPERLIPIDEMIA NEC/NOS 04/18/2017 Ot 305.1 TOBACCO USE DISORDER 04/18/2017 Ot 401.9 HYPERTENSION NOS 04/18/2017 Ot 786.50 CHEST PAIN NOS 04/18/2017 OCROMANALBIN L POLLS OR SURVEYS INTERVIEWER Ot 571.8 CHRONIC LIVER DIS NEC 04/18/2017 OCALBIN POLLS OR SURVEYS INTERVIEWER Ot 592.0 CALCULUS OF KIDNEY 04/18/2017 BERT JASON APRN Ot 611.71 MASTODYNIA 04/18/2017 OC ALBIN Annabelle POLLS OR SURVEYS INTERVIEWER Ot M79.662 PAIN IN LEFT LOWER LEG 04/18/2017 EDWIN ROSENBERGP Ot E11.21 TYPE 2 DIABETES MELLITUS WITH DIABETIC N 04/18/2017 EDWIN ROSENBERGP Ot E11.65 TYPE 2 DIABETES MELLITUS WITH HYPERGLYCE 04/18/2017 EDWIN ROSENBERGP Ot F17.210 NICOTINE DEPENDENCE, CIGARETTES, UNCOMPL 04/18/2017 EDWIN ROSENBERGP Ot F32.9 MAJOR DEPRESSIVE DISORDER, SINGLE EPISOD 04/18/2017 EDWIN ROSENBERGP Ot F41.9 ANXIETY DISORDER, UNSPECIFIED 04/18/2017 EDWIN ROSENBERGP Ot I10 ESSENTIAL (PRIMARY) HYPERTENSION 04/18/2017 EDWIN ROSENBERGP Ot J45.909 UNSPECIFIED ASTHMA, UNCOMPLICATED 04/18/2017 EDWIN ROSENBERGP Ot K21.9 GASTRO-ESOPHAGEAL REFLUX DISEASE WITHOUT 04/18/2017 EDWIN ROSENBERGP Ot M19.90 UNSPECIFIED OSTEOARTHRITIS, UNSPECIFIED 04/18/2017 EDWIN ROSENBERGP Ot M25.562 PAIN IN LEFT KNEE 04/18/2017 EDWIN ROSENBERGP Ot W19.XXXA UNSPECIFIED FALL, INITIAL ENCOUNTER 04/18/2017 EDWIN ROSENBERGP Ot Z79.4 POLLS OR SURVEYS INTERVIEWER (CURRENT) USE OF INSULIN 04/18/2017 EDWIN ROSENBERGP Ot Z87.19 PERSONAL HISTORY OF OTHER DISEASES OF TH 04/18/2017 EDWIN ROSENBERGP Ot Z90.49 ACQUIRED ABSENCE OF OTHER SPECIFIED PART 04/18/2017 EDWIN ROSENBERGP Ot Z90.711 ACQUIRED ABSENCE OF UTERUS WITH REMAININ 04/18/2017 EDWIN ROSENBERGP Ot Z91.81 HISTORY OF FALLING 04/18/2017 Ot 272.4 HYPERLIPIDEMIA NEC/NOS 04/18/2017 Ot 305.1 TOBACCO USE DISORDER 04/18/2017 Ot 401.9 HYPERTENSION NOS 04/18/2017 Ot 786.50 CHEST PAIN NOS 04/18/2017 MADALBIN Alanis POLLS OR SURVEYS INTERVIEWER Ot 571.8 CHRONIC LIVER DIS NEC 04/18/2017 MADALBIN Alanis POLLS OR SURVEYS INTERVIEWER Ot 592.0 CALCULUS OF KIDNEY 04/18/2017 BERT JASON CORPORATE TRAINER Ot 611.71 MASTODYNIA 04/18/2017 ALBIN RENAE POLLS OR SURVEYS INTERVIEWER Ot M79.662 PAIN IN LEFT LOWER LEG 04/22/2017 EDWIN ROSENBERG POLLS OR SURVEYS INTERVIEWER Ot E11.21 TYPE 2 DIABETES MELLITUS WITH DIABETIC N 04/22/2017 EDWIN ROSENBERG POLLS OR SURVEYS INTERVIEWER Ot E11.65 TYPE 2 DIABETES MELLITUS WITH HYPERGLYCE 04/22/2017 EDWIN ROSENBERG POLLS OR SURVEYS INTERVIEWER Ot F17.210 NICOTINE DEPENDENCE, CIGARETTES, UNCOMPL 04/22/2017 EDWIN ROSENBERG POLLS OR SURVEYS INTERVIEWER Ot F32.9 MAJOR DEPRESSIVE DISORDER, SINGLE EPISOD 04/22/2017 EDWIN ROSENBERG POLLS OR SURVEYS INTERVIEWER Ot F41.9 ANXIETY DISORDER, UNSPECIFIED 04/22/2017 EDWIN ROSENBERGP Ot I10 ESSENTIAL (PRIMARY) HYPERTENSION 04/22/2017 EDWIN ROSENBERGP Ot J45.909 UNSPECIFIED ASTHMA, UNCOMPLICATED 04/22/2017 EDWIN ROSENBERGP Ot K21.9 GASTRO-ESOPHAGEAL REFLUX DISEASE WITHOUT 04/22/2017 CHET EDWIN GAYTAN Ot M19.90 UNSPECIFIED OSTEOARTHRITIS, UNSPECIFIED 04/22/2017 CHETEDWIN POLLS OR SURVEYS INTERVIEWER Ot M25.562 PAIN IN LEFT KNEE 04/22/2017 CHET EDWIN POLLS OR SURVEYS INTERVIEWER Ot W19.XXXA UNSPECIFIED FALL, INITIAL ENCOUNTER 04/22/2017 CHETEDWIN Ot Z79.4 POLLS OR SURVEYS INTERVIEWER (CURRENT) USE OF INSULIN 04/22/2017 CHETEDWIN POLLS OR SURVEYS INTERVIEWER Ot Z87.19 PERSONAL HISTORY OF OTHER DISEASES OF TH 04/22/2017 EDWIN ROSENBERGP Ot Z90.49 ACQUIRED ABSENCE OF OTHER SPECIFIED PART 04/22/2017 CHETEDWIN Aguiar Ot Z90.711 ACQUIRED ABSENCE OF UTERUS WITH REMAININ 04/22/2017 CHETEDWIN POLLS OR SURVEYS INTERVIEWER Ot Z91.81 HISTORY OF FALLING Procedures Code Description [place] [address] ROUTINE VENIPUNCTURE 12/03/2013 75901 UA LONG DIP 12/03 58407 CBC 12/03/2013 [id number] GFR CALC (RESULT ONLY) 12/03/2013 25115 CMP 12/03/2013 04158 A1C (RML) 2013 22597 LIPASE 2013 90687 CULTURE URINE 21203 UA W/ CULTURE IF INDICATED 12/24/2013 88276 CULTURE URINE 45145 ROUTINE VENIPUNCTURE 01/14/2014 96302 MICRO ALBUMIN-IN HOUSE 01/14/2014 2177088 GFR CALC (RESULT ONLY) 01/15/2014 17774 BMP 01/15/2014 00468 MICROALBUMIN 01/2014 01394 XRAY SHOULDER RIGHT COMP 2 VIEWS 01/28/2014 92847 XRAY ELBOW R 2 VIEWS 01/28/2014 89593 UA W/ CULTURE IF INDICATED 01/28/2014 27880 A1C (IN-HOUSE) 01334 EKG, TRACING 93453 OXIMETRY 2013 12235 ROUTINE VENIPUNCTURE 05/18/2014 76765 CBC 05/18/2014 7990493 GFR CALC (RESULT ONLY) 05/18/2014 58103 CMP 05/18/2014 11267 BNP 05/19/2014 34794 ROUTINE VENIPUNCTURE 07/01/2014 40631 XRAY FOOT RIGHT 2 VIEWS 07/01/2014 18343 CULTURE URINE 26433 A1C (IN-HOUSE) 4950 GFR CALC (RESULT ONLY) 07/01/2014 31643 [facility] 07/01/2014 99806 ROUTINE VENIPUNCTURE 08/26/20149371692 GFR CALC (RESULT ONLY) 08/26/2014 22962 [facility] 08/26/[address] ABDOMEN W/O CONTRAST 11/17/2014 Results Test Result Range Capillary blood glucose measurement by glucometer (mass/volume) - 04/18/17 19: 19 Capillary blood glucose measurement by glucometer (mass/volume) 399 mg/dL 70-110 Complete blood count (CBC) with automated white blood cell (WBC) differential - 06/25/17 16:40 Blood leukocytes automated count (number/volume) 15.0 10*3/ uL 4.3-11.0 Blood erythrocytes automated count (number/volume) 5.05 10*6 /uL 4.35-5.85 Venous blood hemoglobin measurement (mass/volume) 14.4 g/dL 11.5-16.0 Blood hematocrit (volume fraction) 44 % 35-52 Automated erythrocyte mean corpuscular volume 88 [foz_us] 80-99 Automated erythrocyte mean corpuscular hemoglobin (mass per erythrocyte) 29 pg 25-34 Automated erythrocyte mean corpuscular hemoglobin concentration measurement ( mass/volume) 33 g/dL 32-36 Automated erythrocyte distribution width ratio 14.8 % 10.0-14.5 Automated blood platelet count (count/volume) 247 10*3/uL 130-400 Automated blood platelet mean volume measurement 12.8 [foz_ us] 7.4-10.4 Automated blood neutrophils/100 leukocytes 70 % 42-75 Automated blood lymphocytes/100 leukocytes 20 % 12-44 Blood monocytes/100 leukocytes 7 % 0-12 Automated blood eosinophils/100 leukocytes 3 % 0-10 Automated blood basophils/100 leukocytes 0 % 0-10 Blood neutrophils automated count (number/volume) 10.5 10*3 1.8-7.8 Blood lymphocytes automated count (number/volume) 3.0 10*3 1.0-4.0 Blood monocytes automated count (number/volume) 1.1 10*3 0.0-1.0 Automated eosinophil count 0.4 10*3/uL 0.0-0.3 Automated blood basophil count (count/volume) 0.1 10*3/uL 0.0-0.1 Encounters ACCT No. Visit Date/Time Discharge Status Pt. Type Provider Facility Loc./Unit Complaint [id number] 11/17/2014 09:22:00 11/17/2014 23: 59:59 CLS Outpatient [facility] [id number] 10/28/2014 09:28:00 10/28/2014 23: 59:59 CLS Outpatient BAH DOCOCO [id number] 10/28/2014 09:28:00 10/28/2014 23: 59:59 CLS Outpatient [facility] [id number] 08/26/2014 14:10:00 08/26/2014 23: 59:59 CLS Outpatient DEANDRE CUEVAS MD [id number] 07/01/2014 15:01:00 07/01/2014 23: 59:59 CLS Outpatient [facility] [id number] 07/01/2014 15:01:00 07/01/2014 23: 59:59 CLS Outpatient COCO BAH DO [id number] 05/18/2014 11:12:00 05/18/2014 23: 59:59 CLS Outpatient COCO BAH DO [id number] 04/21/2014 04:04:00 04/21/2014 23: 59:59 CLS Outpatient DEANDRE CUEVAS MD [id number] 03/30/2014 14:37:00 03/30/2014 23: 59:59 CLS Outpatient COCO BAH DO [id number] 03/01/2014 10:56:00 03/01/2014 23: 59:59 CLS Outpatient [facility] [id number] 03/01/2014 10:56:00 03/01/2014 23: 59:59 CLS Outpatient COCO BAH DO [id number] 01/28/2014 11:10:00 01/28/2014 23: 59:59 CLS Outpatient [facility] [id number] 01/14/2014 14:47:00 01/14/2014 23: 59:59 CLS Outpatient COCO BAH DO [id number] 12/24/2013 10:23:00 12/24/2013 23: 59:59 CLS Outpatient COCO BAH DO [id number] 12/03/2013 10:48:00 12/03/2013 23: 59:59 CLS Outpatient MALIK SANTIAGO APRN Adelfo [id number] 04/30/2012 10:35:00 04/30/2012 23: 59:59 CLS Outpatient [id number] 04/16/2012 17:02:00 04/16/2012 23: 59:59 CLS Outpatient CHARLENE PASTORNAHSAN [id number] 04/18/2017 17:04:00 2016 19:45:00 DIS Emergency EDWIN ROSENBERG POLLS OR SURVEYS INTERVIEWER [facility] ER LEFT LEG INJ [id number] 12/09/2015 09:53:00 2015 15:00:00 DIS Outpatient MANISHA OLIVIA MD [facility] WOUNDCARE [id number] 07/29/2015 08:42:00 2014 23:59:59 CLS Outpatient CALLIEALBIN Alanis POLLS OR SURVEYS INTERVIEWER [facility] RAD PAIN IN LEFT LOWER LEG [id number] 03/23/2015 12:26:00 2014 23:59:59 CLS Outpatient ERENTIRSOBERTTANYA Luu APRN [facility] RAD MASTIDONA [id number] 03/01/2015 16:06:00 2014 20:24:00 DIS Emergency LEANN CONTRERAS [facility] ER ABD/BACK PAIN;HEADACHE [id number] 11/19/2014 12:44:00 2014 23:59:59 CLS Outpatient CALLIEALBIN Alanis POLLS OR SURVEYS INTERVIEWER [facility] RAD ABDOMINAL PAIN [id number] 07/23/2014 15:00:00 2013 11:50:00 DIS Inpatient DEANDRE CUEVAS MD [facility] 4TH UNCONTROLLED DIABETES,CHRONIC HYPONATREMIA [id number] 06/23/2014 21:06:00 2013 00:16:00 DIS Emergency LEANN CONTRERAS [facility] ER HEADACHE [id number] 03/25/2014 02:45:00 2013 14:52:00 DIS Inpatient FAITH MALIN, DEANDRE [place] [facility] CSD PYELONEPHRISTIS,UTI,CHEST PAIN [id number] 10/01/2013 12:41:00 2013 15:11:00 DIS Emergency COCO MALIN, HONEY Esposito [facility] ER FALL/BACK PAIN [id number] 06/25/2017 17:11:00 Document Registration [id number] 10/28/2014 11:16:00 Document Registration [id number] 02/20/2012 23:24:00 Document Registration [id number] 08/27/2011 07:33:00 Document Registration [id number] 01/05/2011 15:15:00 Document Registration [id number] 10/04/2010 10:07:00 Document Registration
[2017-06-25 17:24] LABS: INR 1.1 (0.8-1.4); PROTHROMBIN TIME PATIENT 14.7 SEC (12.2-14.7)
[2017-06-25 17:32] LABS: ALANINE AMINOTRANSFERASE 26 U/L (0-55); ALBUMIN 3.4 GM/DL (3.2-4.5); ANION GAP 13 MMOL/L (5-14); ASPARTATE AMINO TRANSFERASE 30 U/L (5-34); BILIRUBIN,TOTAL 0.3 MG/DL (0.1-1.0); BLOOD UREA NITROGEN 18 MG/DL (7-18); BUN/CREATININE RATIO 21; CALCIUM 9.6 MG/DL (8.5-10.1); CARBON DIOXIDE 27 MMOL/L (21-32); CHLORIDE 95 MMOL/L (98-107); CREATININE SERUM 0.86 MG/DL (0.60-1.30); GFR ESTIMATED > 60; GLUCOSE 304 MG/DL (70-105); POTASSIUM 4.4 MMOL/L (3.6-5.0); SODIUM 135 MMOL/L (135-145)
[2017-06-25 17:35] LABS: BAND NEUTROPHILS 0 %; BASOPHILS % (MANUAL) 1 %; EOSINOPHILS % (MANUAL) 2 %; LYMPHOCYTES % (MANUAL) 32 %; NEUTROPHILS % (MANUAL) 60 %
--- NOTE | 2017-06-25 17:36 | Diagnostic Imaging Report ---
INDICATION: Headache, hyperglycemia. TECHNIQUE: Single view chest 5:14 PM. CORRELATION STUDY: 06/23/2014 FINDINGS: Heart size has increased and there is presence of pulmonary vascular congestion. Findings are changed from prior study. Lung gonzalez overall appear to be generally clear apart from likely mild central pulmonary edema. IMPRESSION: 1. Findings compatible with likely changes of congestive heart failure. Adversely changed since prior study. Dictated by: Dictated on workstation # [id number]
[2017-06-25 17:38] LABS: TROPONIN I < 0.30 NG/ML (<0.30)
--- NOTE | 2017-06-25 17:53 | Diagnostic Imaging Report ---
INDICATION: Stroke, right-sided weakness. COMPARISON: None. FINDINGS: Ventricles are normal in size, shape, and position. There is no midline shift or mass effect. There is no hemorrhage or evidence of acute ischemia. There is no cerebral edema. No obvious central dense vessel sign is seen. The bony calvarium, visualized paranasal sinuses, and mastoids are clear. IMPRESSION: Negative CT head. Dictated by: Dictated on workstation # [id number]
[2017-06-25] MEDS ORDERED: inSUlin (REGULAR) HUMAN 1 UNIT/0.01 ML (CHARGE PER UNIT) ONE (18:10)
[2017-06-25] MEDS ORDERED: inSUlin (REGULAR) HUMAN 1 UNIT/0.01 ML (CHARGE PER UNIT) IV STA (18:17)
[2017-06-25] MEDS ORDERED: FUROSEMIDE 40 MG/4 ML INJ (LASIX) IV STA (18:28)
[2017-06-25 19:30] VITALS: BP 145/63
[2017-06-25] MEDS ORDERED: CATHETER FLUSH 10 ML SYR IV PRN (19:45)
[2017-06-25] MEDS: APIXABAN 5 MG (ELIQUIS) TABLET PO SCH (21:02)
[2017-06-25] MEDS: LOSARTAN 50 MG (COZAAR) TAB PO SCH (21:02)
[2017-06-25] MEDS: NS IV 1000 ML 1,000 ML IV SCH (21:02)
[2017-06-25] MEDS ORDERED: RT-ALBUTEROL/IPRATROPIUM 3 ML (DUONEB) VIAL INH PRN (22:00)
[2017-06-25] MEDS: HYDROcodone/APAP 5 MG/325 MG (LORTAB) TAB PO PRN (22:11)
[2017-06-25] MEDS: CATHETER FLUSH 10 ML SYR IV SCH (22:24)
[2017-06-26] VITALS (7 sets, daily range): BP systolic 115–150; BP diastolic 58–67
[2017-06-26] MEDS ORDERED: inSUlin (REGULAR) HUMAN 1 UNIT/0.01 ML (CHARGE PER UNIT) SC SCH (06:00)
[2017-06-26] MEDS: CATHETER FLUSH 10 ML SYR IV SCH ×3 (06:03→20:55)
[2017-06-26] MEDS: FUROSEMIDE 40 MG/4 ML INJ (LASIX) IV SCH ×2 (06:08→17:08)
[2017-06-26 06:47] LABS: RED BLOOD COUNT 4.87 10^6/uL (4.35-5.85); WHITE BLOOD COUNT 12.8 10^3/uL (4.3-11.0)
[2017-06-26 06:48] LABS: BASOPHILS # (AUTO) 0.1 10^3/uL (0.0-0.1); BASOPHILS % (AUTO) 1 % (0-10); EOSINOPHILS # (AUTO) 0.3 10^3/uL (0.0-0.3); EOSINOPHILS % (AUTO) 3 % (0-10); LYMPHOCYTES # (AUTO) 2.6 X 10^3 (1.0-4.0); LYMPHOCYTES % (AUTO) 20 % (12-44); MEAN CORPUSCULAR HEMOGLOBIN 28 PG (25-34); MEAN CORPUSCULAR HGB CONC 31 G/DL (32-36); MEAN CORPUSCULAR VOLUME 88 FL (80-99); MEAN PLATELET VOLUME 12.7 FL (7.4-10.4); MONOCYTES # (AUTO) 0.9 X 10^3 (0.0-1.0); MONOCYTES % (AUTO) 7 % (0-12); NEUTROPHILS # (AUTO) 8.9 X 10^3 (1.8-7.8); NEUTROPHILS % (AUTO) 70 % (42-75); PLATELET COUNT 230 10^3/uL (130-400); RED CELL DISTRIBUTION WIDTH 14.7 % (10.0-14.5)
[2017-06-26 07:11] LABS: ALANINE AMINOTRANSFERASE 23 U/L (0-55); ALBUMIN 3.2 GM/DL (3.2-4.5); ANION GAP 12 MMOL/L (5-14); ASPARTATE AMINO TRANSFERASE 20 U/L (5-34); BILIRUBIN,TOTAL 0.4 MG/DL (0.1-1.0); BLOOD UREA NITROGEN 16 MG/DL (7-18); BUN/CREATININE RATIO 21; CARBON DIOXIDE 27 MMOL/L (21-32); CHLORIDE 99 MMOL/L (98-107); CREATININE SERUM 0.77 MG/DL (0.60-1.30); GFR ESTIMATED > 60; GLUCOSE 327 MG/DL (70-105); POTASSIUM 3.6 MMOL/L (3.6-5.0); SODIUM 138 MMOL/L (135-145); TOTAL PROTEIN 6.6 GM/DL (6.4-8.2)
[2017-06-26] MEDS: RT-ALBUTEROL/IPRATROPIUM 3 ML (DUONEB) VIAL INH SCH ×4 (07:23→19:09)
[2017-06-26] MEDS: LOSARTAN 50 MG (COZAAR) TAB PO SCH (10:00)
[2017-06-26] MEDS: APIXABAN 5 MG (ELIQUIS) TABLET PO SCH ×2 (10:00→20:20)
[2017-06-26] MEDS ORDERED: OMEP40CA36 PO (10:54)
[2017-06-26] MEDS ORDERED: NF-SOLIF5T PO (10:54)
[2017-06-26] MEDS ORDERED: LIDO700A45 TD (10:54)
[2017-06-26] MEDS ORDERED: FURO40TA4 PO (10:54)
[2017-06-26] MEDS ORDERED: HYDR50TA76 PO (10:54)
[2017-06-26] MEDS ORDERED: LOSA50TA36 PO (10:54)
[2017-06-26] MEDS ORDERED: PREG150C PO (10:54)
[2017-06-26] MEDS ORDERED: AMIT50TA3 PO (10:54)
[2017-06-26] MEDS ORDERED: DULO30CA48 PO (10:54)
[2017-06-26] MEDS ORDERED: TRAM50TA2 PO (10:54)
[2017-06-26] MEDS ORDERED: CYCL10TA9 PO (10:54)
[2017-06-26] MEDS ORDERED: CLON0.5T3 PO (10:54)
[2017-06-26] MEDS ORDERED: ROSU40TA20 PO (10:54)
[2017-06-26] MEDS ORDERED: SITA100T12 PO (10:54)
[2017-06-26] MEDS ORDERED: APIX5TAB PO (10:54)
[2017-06-26] MEDS ORDERED: inSUlin ASPART (NovoLOG) 1 UNIT/0.01 ML (CHARGE PER UNIT) SC SCH (11:00)
[2017-06-26] MEDS ORDERED: INSU100I14 SQ (11:06)
[2017-06-26] MEDS ORDERED: INSU100I29 SQ (11:06)
[2017-06-26] MEDS ORDERED: OMG1KC PO (11:09)
[2017-06-26] MEDS ORDERED: CRAN450C PO (11:09)
[2017-06-26] MEDS ORDERED: MULT-35 PO (11:09)
--- NOTE | 2017-06-26 11:31 | Consultation-Cardiology ---
HPI-Cardiology Cardiology Consultation: Date of Consultation 06/26/17 Date of Admission Attending Physician Kyle Bailey MD Admitting Physician Nicolle,Local Physician Consulting Physician Alan HAMM MD HPI: Time Seen by Provider: 09:30 Chief Complaint: Possible stroke This is a 52-year-old lady with history of diabetes and active smoking. She presents with 2 day history of slurring of speech and weakness. She also complains of shortness of breath but denies any chest pain. Review of Systems-Cardiology Review of Systems Constitutional: No As described under HPI, No no symptoms reported, No chills, No fever, No lightheadedness, No malaise, No tiredness, No weight loss, No weight gain, No other Eyes: No As described under HPI, No no symptoms reported, No blindness, No blurred vision, No contact lenses, No drainage, No decreased acuity, No foreign body sensation, No glasses, No inflammation, No pain, No photophobia, No previous injury, No shadows, No tunnel vision, No other, No vision change Ears/Nose/Throat: No As described under HPI, No no symptoms reported, No chronic hearing loss, No epistaxis, No ear discharge, No ear pain, No loose teeth, No mouth pain, No mouth swelling, No nasal drainage, No nose pain, No recent hearing loss, No throat pain, No throat swelling, No ulcerations, No other Respiratory: shortness of breath Cardiovascular: No no symptoms reported, No As described under HPI, No chest pain, No edema, No irregular heart rate, No lightheadedness, No palpitations, No syncope, No other Gastrointestinal: No no symptoms reported, No As described under HPI, No abdomen distended, No abdominal pain, No blood streaked bowels, No constipation , No diarrhea, No difficulty swallowing, No nausea, No poor appetite, No poor fluid intake, No rectal bleeding, No vomiting, No other, No nausea/vomiting/ diarrhea, No stool coloration changes Genitourinary: No no symptoms reported, No As described under HPI, No burning, No dysuria, No discharge, No frequency, No flank pain, No hematuria, No incontinence, No pain, No urgency, No other, No urine frequency changes, No urine coloration changes Musculoskeletal: No no symptoms reported, No As describe under HPI, No back pain, No gout, No joint pain, No joint swelling, No muscle pain, No muscle stiffness, No neck pain, No other Skin: No no symptoms reported, No As described under HPI, No change in color, No change in hair/nails, No dryness, No lesions, No lumps, No rash, No other, No skin related problems, No ulcerations, No rash on exposed areas, No ulcerations on exposed areas Psychiatric/Neurological: As described under HPI, focal weakness Hematologic: No no symptoms reported, No As described under HPI, No anemia, No blood clots, No easy bleeding, No easy bruising, No swollen glands, No other, No bleeding abnormalities BKA-[id number]-Fjdrhq Hx Patient Social History Alcohol Use: Denies Use Recreational Drug Use: No Smoking Status: Current Everyday Smoker Type Used: Cigarettes 2nd Hand Smoke Exposure: Yes Recent Foreign Travel: No Recent Infectious Disease Expo: No Hospitalization with Isolation: Denies Physical Abuse Screen: No Sexual Abuse: No Immunizations Up To Date Tetanus Booster (TDap): Less than 5yrs Date of Pneumonia Vaccine: May 12, 2012 Past Medical History PMH As described under Assessment. Family Medical History Family History: Alcoholism G8 BROTHER Alzheimer's disease 19 MOTHER Arthritis 19 FATHER 19 MOTHER G8 BROTHER G8 BROTHER G8 BROTHER G8 BROTHER G8 BROTHER G8 SISTER G8 SISTER G8 SISTER G8 SISTER G8 SISTER G8 SISTER Asthma 19 FATHER 19 MOTHER G8 SISTER G8 SISTER Cancer of mouth Cardiovascular disease 19 FATHER 19 MOTHER G8 BROTHER G8 BROTHER G8 SISTER G8 SISTER Completed stroke 19 FATHER G8 SISTER G8 SISTER Dementia G8 BROTHER Diabetes mellitus 19 FATHER 19 MOTHER G8 BROTHER G8 BROTHER G8 BROTHER G8 BROTHER G8 BROTHER G8 SISTER G8 SISTER G8 SISTER G8 SISTER G8 SISTER G8 SISTER Glaucoma 19 MOTHER G8 SISTER G8 SISTER Hypercholesterolemia 19 FATHER 19 MOTHER Hypertension 19 FATHER 19 MOTHER G8 BROTHER G8 BROTHER G8 BROTHER G8 BROTHER G8 BROTHER G8 SISTER G8 SISTER G8 SISTER G8 SISTER G8 SISTER G8 SISTER Myocardial infarction 19 FATHER 19 MOTHER G8 BROTHER G8 BROTHER G8 SISTER G8 SISTER G8 SISTER Osteoporosis G8 SISTER Seizure disorder G8 BROTHER No Family History of: AIDS Abdominal aortic aneurysm Marvel's disease Aphasia Cataracts Colon cancer Congenital disease Congenital heart disease Coronary thrombosis Cystic fibrosis Deafness or hearing loss Drug abuse Dysphasia Fibrocystic disease of breast Gastroenteritis Headache disorder Infertility Kidney disease Neoplasm Parkinson's disease Prostate cancer Psychosocial problem Severe allergy Thyroid disease Tuberculosis Visual disorder Allergies and Home Medications Allergies Coded Allergies: aspirin (Unverified Allergy, Unknown, 03/25/14) influenza virus vaccine, specific (Unverified Allergy, Unknown, 07/23/14) morphine (Unverified Allergy, Unknown, 03/25/14) hydromorphone HCl (Unverified Adverse Reaction, Mild, VOMITING, 01/06/11) Home Medications Amitriptyline HCl 50 Mg Tablet, 50 MG PO HS, (Reported) Apixaban 5 Mg Tablet, 5 MG PO BID, (Reported) Clonazepam 0.5 Mg Tablet, 0.5 MG PO TID, (Reported) Cranberry Fruit Concentrate 450 Mg Capsule, 450 MG PO DAILY, (Reported) Duloxetine HCl 30 Mg Capsule.dr, 30 MG PO DAILY, (Reported) Furosemide 40 Mg Tablet, 40 MG PO 0800,1200, (Reported) Insulin Aspart 300 Units/3 Ml Solution, 50 UNITS SQ AC, (Reported) Insulin Aspart 300 Units/3 Ml Solution, 5-15 UNITS SQ AC PRN for CORRECTION FACTOR, (Reported) USES AN EXTRA 5-15 UNITS WITH THE 50 UNITS SCHEDULED DEPENDING ON BS 250-300 +5 UNITS 300-400 +10 UNITS 400 AND ABOVE +15 UNITS Insulin Detemir 100 Unit/1 Ml Insuln.pen, 100 UNIT SQ BID, (Reported) Lidocaine 1 Each Adh..patch, 1 PATCH TD DAILY, (Reported) Losartan Potassium 50 Mg Tablet, 50 MG PO DAILY, (Reported) Multivitamin 1 Each Tablet, 1 TAB PO DAILY, (Reported) [place] 3 Polyunsat Fatty Acids 1,000 Mg Cap, 1,000 MG PO BID, (Reported) Omeprazole 40 Mg Capsule.dr, 40 MG PO DAILY, (Reported) Pregabalin 150 Mg Capsule, 150 MG PO TID, (Reported) Rosuvastatin Calcium 40 Mg Tablet, 40 MG PO HS, (Reported) Sitagliptin Phosphate 100 Mg Tablet, 100 MG PO DAILY, (Reported) Solifenacin Succinate 5 Mg Tablet, 5 MG PO DAILY, (Reported) Tramadol HCl 50 Mg Tablet, 50 MG PO Q6H PRN for PAIN-MODERATE, (Reported) Physical Exam-Cardiology Physical Exam Vital Signs/I&O Vital Sign - Last 12Hours 06/26/17 06/26/17 06/26/17 06/26/17 00:00 01:00 04:00 07:23 Temp 98.0 97.0 Pulse 91 93 91 Resp 20 20 B/P (MAP) 131/58 115/58 Pulse Ox 92 94 96 O2 Delivery Nasal Cannula Nasal Cannula Nasal Cannula O2 Flow Rate 2.00 2.00 3.00 06/26/17 06/26/17 08:00 11:18 Temp 96.3 Pulse 95 Resp 18 B/P (MAP) 133/62 Pulse Ox 97 93 O2 Delivery Nasal Cannula Nasal Cannula O2 Flow Rate 3.00 3.00 Capillary Refill : Less Than 3 Seconds Constitutional: No appears stated age, No AAO x 3, No apparent distress, No PERRL, No well-developed, No well-nourished, No other HEENT: No PERRL, No normal ENT inspection, No TMs normal, No pharynx normal, No scleral icterus (R), No scleral icterus (L), No pale conjunctivae (R), No pale conjunctivae (L), No photophobia, No TM abnormal (R), No TM abnormal (L), No pharyngeal erythema, No tonsillar exudate, No other, No discharge, No EOMI, No hearing is well preserved, No hard of hearing, No oral hygience is good, No ulceration, No xanthelasmas are seen Neck: No non-tender, No full range of motion, No supple, No normal inspection, No carotid bruit, No limited range of motion, No lymphadenopathy (R), No lymphadenopathy (L), No tender lateral, No tender midline, No thyromegaly, No other, No carotid pulses are 2 + bilaterally, No with good upstrokes Respiratory: No accessory muscle use, No respiratory distress, No chest tender , No chest expansion is symmetric, No chest is bilaterally symmetric, No lungs clear to percussion, No lungs clear to auscultation, No crackles, No rhonchi, No rales, No stridor, No wheezing, No pleural rub, No other Cardiovascular: regular rate-rhythm, S1 and S2 Gastrointestinal: No tender, No soft, No round, No distended, No pulsatile mass , No organomegaly, No guarding, No rebound, No tenderness, No hernia, No mass, No audible bowel sounds, No abnormal bowel sounds, No abdominal bruits, No spleenomegaly, No other Rectal: deferred Extremities: No normal range of motion, No non-tender, No normal inspection, No pedal edema, No calf tenderness, No normal capillary refill, No pelvis stable , No calf tenderness, No inflammation, No pedal edema, No slow capillary refill , No swelling, No other, No abrasion, No clubbing, No cyanosis, No ecchymosis, No laceration, No no lower extremity edema bilateral, No significant edema, No tenderness, No wound Neurologic/Psychiatric: alert, normal mood/affect, oriented x 3 Skin: No normal color, No warm/dry, No cyanosis, No cool, No diaphoresis, No damp, No ecchymosis, No jaundice, No mottled, No pallor, No rash, No tattoos/ piercings, No ulcerations, No rash on exposed areas, No ulcerations on exposed areas, No other Data Review Labs Laboratory Tests 06/25/17 16:40: White Blood Count 15.0H, Red Blood Count 5.05, Hemoglobin 14.4, Hematocrit 44, Mean Corpuscular Volume 88, Mean Corpuscular Hemoglobin 29, Mean Corpuscular Hemoglobin Concent 33, Red Cell Distribution Width 14.8H, Platelet Count 247, Mean Platelet Volume 12.8H, Neutrophils (%) (Auto) 70, Lymphocytes (%) (Auto) 20 , Monocytes (%) (Auto) 7, Eosinophils (%) (Auto) 3, Basophils (%) (Auto) 0, Neutrophils # (Auto) 10.5H, Lymphocytes # (Auto) 3.0, Monocytes # (Auto) 1.1H, Eosinophils # (Auto) 0.4H, Basophils # (Auto) 0.1, Neutrophils % (Manual) 60, Lymphocytes % (Manual) 32, Monocytes % (Manual) 5, Eosinophils % (Manual) 2, Basophils % (Manual) 1, Band Neutrophils 0, Blood Morphology Comment NORMAL, Prothrombin Time 14.7, INR Comment 1.1, Activated Partial Thromboplast Time 33, D-Dimer 0.30, Sodium Level 135, Potassium Level 4.4, Chloride Level 95L, Carbon Dioxide Level 27, Anion Gap 13, Blood Urea Nitrogen 18, Creatinine 0.86, Estimat Glomerular Filtration Rate > 60, BUN/Creatinine Ratio 21, Glucose Level 304H, Calcium Level 9.6, Total Bilirubin 0.3, Aspartate Amino Transf (AST/SGOT) 30, Alanine Aminotransferase (ALT/SGPT) 26, Alkaline Phosphatase 81, Troponin I < 0.30, B-Type Natriuretic Peptide < 10.0, Total Protein 8.0, Albumin 3.4 06/25/17 16:55: Urine Color YELLOW, Urine Clarity CLEAR, Urine pH 5, Urine Specific [place] 1.010L, Urine Protein NEGATIVE, Urine Glucose (UA) 4+H, Urine Ketones NEGATIVE, Urine Nitrite NEGATIVE, Urine Bilirubin NEGATIVE, Urine Urobilinogen NORMAL, Urine Leukocyte Esterase NEGATIVE, Urine RBC (Auto) NEGATIVE, Urine RBC NONE, Urine WBC 0-2, Urine Squamous Epithelial Cells RARE, Urine Crystals NONE, Urine Bacteria NONE, Urine Casts NONE, Urine Mucus NEGATIVE, Urine Culture Indicated NO 06/25/17 20:31: Glucometer 194H 06/25/17 23:30: Glucometer 207H 06/26/17 05:14: Glucometer 288H 06/26/17 05:34: White Blood Count 12.8H, Red Blood Count 4.87, Hemoglobin 13.5, Hematocrit 43, Mean Corpuscular Volume 88, Mean Corpuscular Hemoglobin 28, Mean Corpuscular Hemoglobin Concent 31L, Red Cell Distribution Width 14.7H, Platelet Count 230, Mean Platelet Volume 12.7H, Neutrophils (%) (Auto) 70, Lymphocytes (%) (Auto) 20 , Monocytes (%) (Auto) 7, Eosinophils (%) (Auto) 3, Basophils (%) (Auto) 1, Neutrophils # (Auto) 8.9H, Lymphocytes # (Auto) 2.6, Monocytes # (Auto) 0.9, Eosinophils # (Auto) 0.3, Basophils # (Auto) 0.1, Sodium Level 138, Potassium Level 3.6, Chloride Level 99, Carbon Dioxide Level 27, Anion Gap 12, Blood Urea Nitrogen 16, Creatinine 0.77, Estimat Glomerular Filtration Rate > 60, BUN/ Creatinine Ratio 21, Glucose Level 327H, Hemoglobin A1c 11.0H, Calcium Level 9.0 , Total Bilirubin 0.4, Aspartate Amino Transf (AST/SGOT) 20, Alanine Aminotransferase (ALT/SGPT) 23, Alkaline Phosphatase 76, Troponin I < 0.30, Total Protein 6.6, Albumin 3.2 06/26/17 10:22: Glucometer 366H A/P-Cardiology Assessment/Admission Diagnosis 1. Subacute stroke. 2. Shortness of breath. 3. Diabetes. 4. Active smoking. Plan Will defer treatment of diabetes and subacute stroke to the primary team. Shortness of breath is likely multifactorial. On examination no significant congestive heart failure. BNP on admission was negative therefore unlikely to be significant congestive heart failure. We'll request an echocardiogram. Due to multiple coronary risk factors and shortness of breath, I will recommend pharmacological nuclear stress test tomorrow. Smoking cessation was strongly recommended. Thank you for your consultation. Please call me if you have any questions. Cliff Hamm MD, FACP, FACC, FSCAI, FHRS, CCDS Interventional Cardiology Cardiac Electrophysiology Vascular Medicine and Endovascular Interventions Clinical Quality Measures DVT/VTE Risk/Contraindication: Risk Factor Score Per Nursin RFS Level Per Nursing on Admit: 4+=Very High Alan HAMM MD Jun 26, 2017 11:31
[2017-06-26] MEDS ORDERED: RX-TRAMADOL 50 MG (ULTRAM) TAB PPK#4 PO PRN (11:45)
--- NOTE | 2017-06-26 11:49 | History & Physical-Hospitalist ---
HPI History of Present Illness: HPI/Chief Complaint CC: Slurred speech and right arm weakness HPI: This is a 52 yoWF pt from [facility] who was previously seen at [facility] ER and has had right arm weakness for 2 weeks. She began having slurred speech 2 days before admission to [facility] and was at the [facility] when slurred speech worsened. She became dizzy and EMS was dispatched. Pt was not a TPA candidate and blood sugars have been high. No fever, Vitals stable, WBC down from 15 to 12.8, Hgb 13.5, CMP normal except glucose 327, UA negative except 4+ glucose, CXR possible fluid overload, CT head negative head resident: Pt will have a stress test tomorrow Pt is on sliding scale B Patient Interview: Pt states she has been doing much better. Pt states it was her right leg that she could not move. Pt states that her leg was a little tingly for a few weeks but yesterday she was unable to move her legs. Pt's nephew states he wanted her to come in after her speech started to slur at the [facility]. Pt confirms Dr. Suarez as PCP, pt sees him twice a month. Physical exam stable. Pt is able to move her right leg and toes upon assessment. Pt confirms smoking and denies ETOH usage Pt states she lives with her nephew Pt's nephew states she was going to be set up with an orthopedic surgeon. 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 Cardiology was consulted and this was discussed. Pt confirms seeing Dr. Hamm today Pt was informed that PT will work with her as well Scribed by Joselyn Bethea under the direct supervision of Dr. Urbina. Source: patient, caregiver Exam Limitations: no limitations Date Seen 06/26/17 Time Seen by Provider: 09:30 Attending Physician Kyle Bailey MD PCP No,Local Physician Referring Physician Date of Admission Jun 25, 2017 at 18:32 Home Medications & Allergies Home Medications Reviewed patient Home Medication Reconciliation Form Allergies Allergies Coded Allergies aspirin (Unverified Allergy, Unknown, 03/25/14) influenza virus vaccine, specific (Unverified Allergy, Unknown, 07/23/14) morphine (Unverified Allergy, Unknown, 03/25/14) hydromorphone HCl (Unverified Adverse Reaction, Mild, VOMITING, 01/06/11) Past Orvgjui-Clscpv-Gavwih Hx Patient Social History Marrital Status: (2012) 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) Alcohol Use: Denies Use Recreational Drug Use: No Smoking Status: Current Everyday Smoker Type Used: Cigarettes 2nd Hand Smoke Exposure: Yes Physical Abuse Screen: No Sexual Abuse: No Recent Foreign Travel: No Contact w/other who traveled: No Recent Hopitalizations: Yes (SHINGLES) Recent Infectious Disease Expo: No Immunizations Up To Date Tetanus Booster (TDap): Less than 5yrs Pediatric: No Date of Pneumonia Vaccine: May 12, 2012 Surgeries Yes (hysterectomy, gallbladder, appendectomy) Appendectomy, Gallbladder, Hysterectomy Respiratory Yes COPD, Pneumonia Currently Using CPAP: No Currently Using BIPAP: No Cardiovascular Yes High Cholesterol, Hypertension Neurological Yes Neuropathy Reproductive System Hx Reproductive Disorders: No (partial hysterectomy of R side. ) Sexually Transmitted Disease: No HIV/AIDS: No Female Reproductive Disorders: Denies Genitourinary Yes Kidney Infection, UTI-Chronic Gastrointestinal Yes (abd pain at times) Gastroesophageal Reflux, Pancreatitis Musculoskeletal Arthritis Endocrine History of Endocrine Disorders: Yes Endocrine Disorders: Diabetes, Non-Insulin dep HEENT HEENT Disorders: Tinnitis Loss of Vision: Denies Hearing Impairment: Denies Cancer No Psychosocial History of Psychiatric Problem: Yes Behavioral Health Disorders: Anxiety, Depression Blood Transfusions History of Blood Disorders: No Adverse Reaction to a Blood Tr: No Reviewed Nursing Assessment Reviewed/Agree w Nursing PMH: Yes Family Medical History Significant Family History: No Pertinent Family Hx Family Hx: Alcoholism G8 BROTHER Alzheimer's disease 19 MOTHER Arthritis 19 FATHER 19 MOTHER G8 BROTHER G8 BROTHER G8 BROTHER G8 BROTHER G8 BROTHER G8 SISTER G8 SISTER G8 SISTER G8 SISTER G8 SISTER G8 SISTER Asthma 19 FATHER 19 MOTHER G8 SISTER G8 SISTER Cancer of mouth Cardiovascular disease 19 FATHER 19 MOTHER G8 BROTHER G8 BROTHER G8 SISTER G8 SISTER Completed stroke 19 FATHER G8 SISTER G8 SISTER Dementia G8 BROTHER Diabetes mellitus 19 FATHER 19 MOTHER G8 BROTHER G8 BROTHER G8 BROTHER G8 BROTHER G8 BROTHER G8 SISTER G8 SISTER G8 SISTER G8 SISTER G8 SISTER G8 SISTER Glaucoma 19 MOTHER G8 SISTER G8 SISTER Hypercholesterolemia 19 FATHER 19 MOTHER Hypertension 19 FATHER 19 MOTHER G8 BROTHER G8 BROTHER G8 BROTHER G8 BROTHER G8 BROTHER G8 SISTER G8 SISTER G8 SISTER G8 SISTER G8 SISTER G8 SISTER Myocardial infarction 19 FATHER 19 MOTHER G8 BROTHER G8 BROTHER G8 SISTER G8 SISTER G8 SISTER Osteoporosis G8 SISTER Seizure disorder G8 BROTHER No Family History of: AIDS Abdominal aortic aneurysm [place]'s disease Aphasia Cataracts Colon cancer Congenital disease Congenital heart disease Coronary thrombosis Cystic fibrosis Deafness or hearing loss Drug abuse Dysphasia Fibrocystic disease of breast Gastroenteritis Headache disorder Infertility Kidney disease Neoplasm Parkinson's disease Prostate cancer Psychosocial problem Severe allergy Thyroid disease Tuberculosis Visual disorder Review of Systems Constitutional: see HPI, weakness EENTM: no symptoms reported Respiratory: no symptoms reported Cardiovascular: no symptoms reported Gastrointestinal: no symptoms reported Genitourinary: no symptoms reported Musculoskeletal: joint pain Skin: no symptoms reported Psychiatric/Neurological: Depressed All Other Systems Reviewed Negative Unless Noted: Yes Physical Exam Physical Exam Vital Signs Vital Sign - Last 12Hours 06/25/17 06/25/17 06/25/17 16:36 18:30 21:53 Temp 98.3 Pulse 91 Resp 18 B/P (MAP) 151/78 Pulse Ox 94 O2 Delivery Nasal Cannula O2 Flow Rate 2.00 FiO2 24 Capillary Refill : Less Than 3 Seconds General Appearance: No Apparent Distress, WD/WN, Chronically ill, Obese Eyes: Bilateral Eye Normal Inspection, Bilateral Eye PERRL HEENT: PERRL/EOMI, Normal ENT Inspection, Pharynx Normal Neck: Full Range of Motion, Normal Inspection, Non Tender, Supple, Carotid Bruit Respiratory: Chest Non Tender, Lungs Clear, No Accessory Muscle Use, No Respiratory Distress, Decreased Breath Sounds Cardiovascular: Regular Rate, Rhythm, No Edema, No Gallop, No JVD, No Murmur, Normal Peripheral Pulses Gastrointestinal: Normal Bowel Sounds, No Organomegaly, No Pulsatile Mass, Non Tender, Soft Back: Normal Inspection, No CVA Tenderness, No Vertebral Tenderness Extremity: Normal Capillary Refill, Normal Inspection, Normal Range of Motion, Non Tender, No Calf Tenderness, No Pedal Edema Neurologic/Psychiatric: Alert, Oriented x3, No Motor/Sensory Deficits, Depressed Affect, Motor Weakness (right leg and foot 3/5 strength sensation is intact) Skin: Normal Color, Warm/Dry Lymphatic: No Adenopathy Results Results/Procedures Lab Laboratory Tests 06/25/17 16:40 06/26/17 05:34 Assessment/Plan Admission Diagnosis Assessment: Neurological deficit suspicious for CVA but not a TPA candidate so obtaining MRI brain and consulting PT/OT and IRU Severe COPD and oxygen dependent Continued active smoker Chronic back pain and knee pain Severe and chronic debility Vascular congestion on CXR but nl BNP consulting Cardiology DM OOC Assessment and Plan Plan: Cardiology consult appreciated Echo today due to volume overload on CXR and BNP nl Stress test tomorrow Reconcile home meds PT/OT MRI brain Rehab eval SHANELLE blandon HgA1c check AC/HS Accuchecks Start Levemir home dose Diagnosis/Problems Diagnosis/Problems (1) Neurological deficit due to ischemic stroke Status: Acute Assessment & Plan: Obtain MRI (2) Uncontrolled diabetes mellitus with hyperglycemia Status: Chronic Qualifiers: Qualified Codes: E11.65 - Type 2 diabetes mellitus with hyperglycemia; Z79.4 - halfway (current) use of insulin Clinical Quality Measures DVT/VTE Risk/Contraindication: Risk Factor Score Per Nursin RFS Level Per Nursing on Admit: 4+=Very High DARRELL URBINA DO Jun 26, 2017 11:49
[2017-06-26] MEDS ORDERED: NON-FORMULARY MEDICATION 1 EA EA (Insulin Aspart (Novolog Flexpen) 10 UNITS) SQ PRN (12:00)
[2017-06-26] MEDS ORDERED: FUROSEMIDE 40 MG (LASIX) TAB PO SCH (12:00)
[2017-06-26] MEDS ORDERED: LORazepam INJ 2 MG/ML (ATIVAN) VIAL IVP NR (12:30)
[2017-06-26] MEDS ORDERED: NON-FORMULARY MEDICATION 1 EA EA (Pregabalin (Lyrica) 150 MG) PO SCH (13:00)
[2017-06-26] MEDS: HYDROcodone/APAP 5 MG/325 MG (LORTAB) TAB PO PRN ×2 (14:20→20:19)
[2017-06-26] MEDS ORDERED: inSUlin ASPART (NovoLOG) 1 UNIT/0.01 ML (CHARGE PER UNIT) SC PRN (14:30)
[2017-06-26] MEDS ORDERED: LORazepam INJ 2 MG/ML (ATIVAN) VIAL IVP STA (15:37)
[2017-06-26] MEDS: clonazePAM 0.5 MG (KlonoPIN) TAB PO SCH ×2 (15:37→20:19)
[2017-06-26] MEDS: TROSPIUM 20 MG (SANCTURA) TAB PO SCH (15:37)
[2017-06-26] MEDS: PREGABALIN 75 MG (LYRICA) CAP PO SCH ×2 (15:38→20:19)
[2017-06-26] MEDS ORDERED: INSULIN ASPART 50 UNIT SQ SCH (16:00)
--- NOTE | 2017-06-26 16:12 | Physical Therapy Evaluation ---
PT Evaluation-General Medical Diagnosis Admission Date Jun 25, 2017 at 18:32 Medical Diagnosis: possible CVA Onset Date: Jun 25, 2017 Therapy Diagnosis Therapy Diagnosis: weakness; abn gait Height/Weight Height (Feet): 5 Height (Inches): 9.00 Weight (Pounds): 272 Weight (Ounces): 5.0 Precautions Precautions/Isolations: Standard Precautions Referral Physician: Rasheed Reason for Referral: Evaluation/Treatment Medical History Additional Medical History Neurological deficit suspicious for CVA but not a TPA candidate so obtaining MRI brain and consulting PT/OT and IRU Severe COPD and oxygen dependent Continued active smoker Chronic back pain and knee pain Severe and chronic debility Vascular congestion on CXR but nl BNP consulting Cardiology DM OOC Current History Neurological deficit suspicious for CVA but not a TPA candidate so obtaining MRI brain. Left sided weakness and slurred speech Reviewed History: Yes Social History Home: Single Level Current Living Status: Alone Entry Into Home: Stairs With Railing PT Steps Into Home: 2 Prior/Core FIM Prior Level of Function Functional [place] Measure 0=Not Assessed/NA 4=Minimal Assistance 1=Total Assistance 5=Supervision or Setup 2=Maximal Assistance 6=Modified [place] 3=Moderate Assistance 7=Complete [place] Bed Mobility: 6 Transfers (B,C,W/C) (FIM): 6 Gait: 6 (uses a 4WW) Pt is a community ambulator at [facility]; able to care for herself. PT Evaluation-Current Subjective Pt anxious about pending MRI, fearful due to tight space. "What are they going to find anyway?" Agrees to get out of bed with this therapist. Once standing and after taking a few steps, reports she feels "woozy". Objective Patient Orientation: Person, Place, Time, Situation Problem Solving: Fair ROM/Strength ROM Lower Extremities WFL Strength Lower Extremities Grossly 4-/5 B LE's Integumentary/Posture Integumentary Refer to nursing notes. Bowel Incontinence: Yes Bladder Incontinence: No Posture Rounded shoulders but symmetrical Neuromuscular (Tone, Coordination, Reflexes) functional Sensory Vision: Functional Hearing: Functional Hand Dominance: Right Sensation Right Lower Extremit: Intact Sensation Left Lower Extremity: Intact Transfers Functional [place] Measure 0=Not Assessed/NA 4=Minimal Assistance 1=Total Assistance 5=Supervision or Setup 2=Maximal Assistance 6=Modified [place] 3=Moderate Assistance 7=Complete [place] Transfers (B, C, W/C) (FIM): 4 Supine to/from Sit: 4 Sit to/from Stand: 4 Gait Mode of Locomotion: Walk Anticipated Mode of Locomotion: Walk Gait Assistive Device: FWW Comments/Gait Description Pt stood and took 4-5 steps forward and then began to not feel well. Pulled a chair up behind her and had her sit. No further gait at this time. Balance Sitting Static: Good Sitting Dynamic: Good Standing Static: Fair Standing Dynamic: Fair Assessment/Needs Pt presents with impaired functional mobility and ability to transfer. She was unable to walk any distance due to not feeling well. She does present with impaired mobility and would benefit from skilled PT to address strength, gait and transfer deficits. Her PLOF was community mobility so would beneift from aggressive therapy to return to home. Eval of moderate complexity: lives alone, reports limited family support, hx of left sided weakness for 2 years, exam: LE weakness, assist with transfers; impaired gait and it is evolving as she is still on an acute stay. Rehab Potential: Good PT Residential Goals Residential Goals PT Residential Goals Time Frame: Jul 10, 2017 Transfers (B,C,W/C) (FIM): 6 Gait (FIM): 6 Gait Assistive Device: FWW PT Plan Problem List Problem List: Activity Tolerance, Functional Strength, Safety, Balance, Gait, Transfer, Bed Mobility Treatment/Plan Treatment Plan: Continue Plan of Care Treatment Plan: Bed Mobility, Education, Functional Activity Cait, Functional Strength, Gait, Safety, Therapeutic Exercise, Transfers Treatment Duration: Jul 05, 2017 Frequency: 11 times per week Estimated Hrs Per Day: .5 hour per day Patient and/or Family Agrees t: Yes Safety Risks/Education Patient Education: Transfer Techniques, Safety Issues Teaching Recipient: Patient Teaching Methods: Discussion Response to Teaching: Reinforcement Needed Time/GCodes Time In: 1540 Time Out: 1400 Total Billed Treatment Time: 20 Total Billed Treatment visit EVM 20 TRACY BARBA PT Jun 26, 2017 16:12
[2017-06-26] MEDS: inSUlin ASPART (NovoLOG) 1 UNIT/0.01 ML (CHARGE PER UNIT) SC SCH (17:07)
[2017-06-26] MEDS: OMEGA 3 (FISH OIL) 1000 MG CAP PO SCH (20:19)
[2017-06-26] MEDS ORDERED: inSUlin DETERMIR 1 UNIT/0.01 ML (LEVEMIR) CHARGE PER UNIT SQ SCH (21:00)
[2017-06-26] MEDS: NS IV 1000 ML 1,000 ML IV SCH (21:00)
[2017-06-26] MEDS ORDERED: ROSUVASTATIN 20 MG (CRESTOR) TABLET PO SCH (21:00)
[2017-06-26] MEDS ORDERED: INSULIN DETEMIR 100 UNIT SQ SCH (21:00)
[2017-06-26] MEDS ORDERED: NON-FORMULARY MEDICATION 1 EA EA (Rosuvastatin Calcium 40 MG) PO SCH (21:00)
[2017-06-26] MEDS ORDERED: APIXABAN 5 MG (ELIQUIS) TABLET PO SCH (21:00)
[2017-06-26] MEDS ORDERED: AMITRIPTYLINE 50 MG (ELAVIL) TAB PO SCH (21:00)
[2017-06-26] MEDS: inSUlin DETERMIR 1 UNIT/0.01 ML (LEVEMIR) CHARGE PER UNIT SQ SCH (21:01)
[2017-06-27] MEDS: HYDROcodone/APAP 5 MG/325 MG (LORTAB) TAB PO PRN (00:04)
[2017-06-27 03:54] VITALS: BP 134/71
[2017-06-27] MEDS: FUROSEMIDE 40 MG/4 ML INJ (LASIX) IV SCH (06:08)
[2017-06-27] MEDS: TROSPIUM 20 MG (SANCTURA) TAB PO SCH (06:08)
[2017-06-27] MEDS: inSUlin ASPART (NovoLOG) 1 UNIT/0.01 ML (CHARGE PER UNIT) SC SCH ×2 (06:08→12:22)
[2017-06-27] MEDS: CATHETER FLUSH 10 ML SYR IV SCH (06:08)
[2017-06-27 06:35] LABS: BASOPHILS # (AUTO) 0.1 10^3/uL (0.0-0.1); BASOPHILS % (AUTO) 1 % (0-10); EOSINOPHILS # (AUTO) 0.4 10^3/uL (0.0-0.3); EOSINOPHILS % (AUTO) 3 % (0-10); LYMPHOCYTES # (AUTO) 2.1 X 10^3 (1.0-4.0); LYMPHOCYTES % (AUTO) 17 % (12-44); MEAN CORPUSCULAR HEMOGLOBIN 28 PG (25-34); MEAN CORPUSCULAR HGB CONC 32 G/DL (32-36); MEAN CORPUSCULAR VOLUME 89 FL (80-99); MEAN PLATELET VOLUME 12.1 FL (7.4-10.4); MONOCYTES # (AUTO) 0.9 X 10^3 (0.0-1.0); MONOCYTES % (AUTO) 7 % (0-12); NEUTROPHILS # (AUTO) 8.8 X 10^3 (1.8-7.8); NEUTROPHILS % (AUTO) 72 % (42-75); PLATELET COUNT 219 10^3/uL (130-400); RED BLOOD COUNT 4.59 10^6/uL (4.35-5.85); RED CELL DISTRIBUTION WIDTH 14.6 % (10.0-14.5); WHITE BLOOD COUNT 12.2 10^3/uL (4.3-11.0)
[2017-06-27 06:54] LABS: ALANINE AMINOTRANSFERASE 22 U/L (0-55); ALBUMIN 3.1 GM/DL (3.2-4.5); ANION GAP 10 MMOL/L (5-14); ASPARTATE AMINO TRANSFERASE 18 U/L (5-34); BILIRUBIN,TOTAL 0.4 MG/DL (0.1-1.0); BLOOD UREA NITROGEN 15 MG/DL (7-18); BUN/CREATININE RATIO 22; CALCIUM 9.1 MG/DL (8.5-10.1); CARBON DIOXIDE 28 MMOL/L (21-32); CHLORIDE 102 MMOL/L (98-107); CREATININE SERUM 0.68 MG/DL (0.60-1.30); GFR ESTIMATED > 60; GLUCOSE 285 MG/DL (70-105); POTASSIUM 3.7 MMOL/L (3.6-5.0); SODIUM 140 MMOL/L (135-145); TOTAL PROTEIN 6.8 GM/DL (6.4-8.2)
[2017-06-27] MEDS ORDERED: MULTIVIT W/MINERALS TAB (THERAGRAN M) PO SCH (07:00)
[2017-06-27] MEDS ORDERED: PANTOPRAZOLE 40 MG (PROTONIX) TAB PO SCH (07:00)
--- NOTE | 2017-06-27 07:15 | Pulmonary Consultation ---
History of Present Illness History of Present Illness Date of Consultation 06/27/17 07:10 Time Seen by Provider: 07:11 Date of Admission History of Present Illness 52yo with history of active smoking, asthma, and probable COPD presents secondary to 2 day history of slurred speech and weakness and progressive shortness of breath no chest pain. I am consulted for pulmonary management. CXR is suggestive of CHF however BNP is <10. Pt does have a leukocytosis of 12. Allergies and Home Medications Allergies Coded Allergies: aspirin (Unverified Allergy, Unknown, 03/25/14) influenza virus vaccine, specific (Unverified Allergy, Unknown, 07/23/14) morphine (Unverified Allergy, Unknown, 03/25/14) hydromorphone HCl (Unverified Adverse Reaction, Mild, VOMITING, 01/06/11) Home Medications Amitriptyline HCl 50 Mg Tablet, 50 MG PO HS, (Reported) Apixaban 5 Mg Tablet, 5 MG PO BID, (Reported) Clonazepam 0.5 Mg Tablet, 0.5 MG PO TID, (Reported) Cranberry Fruit Concentrate 450 Mg Capsule, 450 MG PO DAILY, (Reported) Duloxetine HCl 30 Mg Capsule.dr, 30 MG PO DAILY, (Reported) Furosemide 40 Mg Tablet, 40 MG PO 0800,1200, (Reported) Insulin Aspart 300 Units/3 Ml Solution, 50 UNITS SQ AC, (Reported) Insulin Aspart 300 Units/3 Ml Solution, 5-15 UNITS SQ AC PRN for CORRECTION FACTOR, (Reported) USES AN EXTRA 5-15 UNITS WITH THE 50 UNITS SCHEDULED DEPENDING ON BS 250-300 +5 UNITS 300-400 +10 UNITS 400 AND ABOVE +15 UNITS Insulin Detemir 100 Unit/1 Ml Insuln.pen, 100 UNIT SQ BID, (Reported) Lidocaine 1 Each Adh..patch, 1 PATCH TD DAILY, (Reported) Losartan Potassium 50 Mg Tablet, 50 MG PO DAILY, (Reported) Multivitamin 1 Each Tablet, 1 TAB PO DAILY, (Reported) [place] 3 Polyunsat Fatty Acids 1,000 Mg Cap, 1,000 MG PO BID, (Reported) Omeprazole 40 Mg Capsule.dr, 40 MG PO DAILY, (Reported) Pregabalin 150 Mg Capsule, 150 MG PO TID, (Reported) Rosuvastatin Calcium 40 Mg Tablet, 40 MG PO HS, (Reported) Sitagliptin Phosphate 100 Mg Tablet, 100 MG PO DAILY, (Reported) Solifenacin Succinate 5 Mg Tablet, 5 MG PO DAILY, (Reported) Tramadol HCl 50 Mg Tablet, 50 MG PO Q6H PRN for PAIN-MODERATE, (Reported) Past Mtvakhe-Bkgmqp-Xlltrf Hx Patient Social History Alcohol Use: Denies Use Recreational Drug Use: No Smoking Status: Current Everyday Smoker Type Used: Cigarettes 2nd Hand Smoke Exposure: Yes Recent Foreign Travel: No Contact w/Someone Who Travel: No Recent Infectious Disease Expo: No Recent Hopitalizations: Yes (SHINGLES) Physical Abuse: No Sexual Abuse: No Immunizations Up To Date Tetanus Booster (TDap): Less than 5yrs PED Vaccines UTD: No Date of Pneumonia Vaccine: May 12, 2012 Surgeries History of Surgeries: Yes (hysterectomy, gallbladder, appendectomy) Surgeries: Appendectomy, Gallbladder, Hysterectomy Respiratory History of Respiratory Disorde: Yes Respiratory Disorders: Asthma, Pneumonia, Chronic Bronchitis Currently Using CPAP: No Currently Using BIPAP: No Cardiovascular History of Cardiac Disorders: Yes Cardiac Disorders: High Cholesterol, Hypertension Neurological History of Neurological Disord: Yes Neurological Disorders: Neuropathy Reproductive System Hx Reproductive Disorders: No (partial hysterectomy of R side. ) Sexually Transmitted Disease: No HIV/AIDS: No Female Reproductive Disorders: Denies Genitourinary History of Genitourinary Disor: Yes Genitourinary Disorders: Kidney Infection, UTI-Chronic Gastrointestinal History of Gastrointestinal Di: Yes (abd pain at times) Gastrointestinal Disorders: Gastroesophageal Reflux, Pancreatitis Musculoskeletal Musculoskeletal Disorders: Arthritis Endocrine History of Endocrine Disorders: Yes Endocrine Disorders: Diabetes, Non-Insulin dep HEENT HEENT Disorders: Tinnitis Loss of Vision: Denies Hearing Impairment: Denies Cancer History of Cancer: No Psychosocial History of Psychiatric Problem: Yes Behavioral Health Disorders: Anxiety, Depression Suicide Risk Score: 0 Blood Transfusions History of Blood Disorders: No Adverse Reaction to a Blood Tr: No Reviewed Nursing Assessment Reviewed/Agree w Nursing PMH: Yes Family Medical History Significant Family History: No Pertinent Family Hx Family Medial History: Alcoholism G8 BROTHER Alzheimer's disease 19 MOTHER Arthritis 19 FATHER 19 MOTHER G8 BROTHER G8 BROTHER G8 BROTHER G8 BROTHER G8 BROTHER G8 SISTER G8 SISTER G8 SISTER G8 SISTER G8 SISTER G8 SISTER Asthma 19 FATHER 19 MOTHER G8 SISTER G8 SISTER Cancer of mouth Cardiovascular disease 19 FATHER 19 MOTHER G8 BROTHER G8 BROTHER G8 SISTER G8 SISTER Completed stroke 19 FATHER G8 SISTER G8 SISTER Dementia G8 BROTHER Diabetes mellitus 19 FATHER 19 MOTHER G8 BROTHER G8 BROTHER G8 BROTHER G8 BROTHER G8 BROTHER G8 SISTER G8 SISTER G8 SISTER G8 SISTER G8 SISTER G8 SISTER Glaucoma 19 MOTHER G8 SISTER G8 SISTER Hypercholesterolemia 19 FATHER 19 MOTHER Hypertension 19 FATHER 19 MOTHER G8 BROTHER G8 BROTHER G8 BROTHER G8 BROTHER G8 BROTHER G8 SISTER G8 SISTER G8 SISTER G8 SISTER G8 SISTER G8 SISTER Myocardial infarction 19 FATHER 19 MOTHER G8 BROTHER G8 BROTHER G8 SISTER G8 SISTER G8 SISTER Osteoporosis G8 SISTER Seizure disorder G8 BROTHER No Family History of: AIDS Abdominal aortic aneurysm Lole[place]'s disease Aphasia Cataracts Colon cancer Congenital disease Congenital heart disease Coronary thrombosis Cystic fibrosis Deafness or hearing loss Drug abuse Dysphasia Fibrocystic disease of breast Gastroenteritis Headache disorder Infertility Kidney disease Neoplasm Parkinson's disease Prostate cancer Psychosocial problem Severe allergy Thyroid disease Tuberculosis Visual disorder Exam Exam Vital Signs Date Time Temp Pulse Resp B/P (MAP) Pulse Ox O2 Delivery O2 Flow Rate FiO2 06/27/17 03:54 97.1 90 20 134/71 94 Nasal Cannula 3.00 06/27/17 01:00 98 06/26/17 23:24 97.7 88 18 131/62 95 Nasal Cannula 3.00 06/26/17 19:40 98 Nasal Cannula 3.00 06/26/17 19:33 97.5 97 22 150/67 98 Nasal Cannula 3.00 06/26/17 19:10 96 Nasal Cannula 3.00 06/26/17 19:00 97 06/26/17 15:34 98.0 96 22 147/65 92 Nasal Cannula 3.00 06/26/17 12:00 96.8 100 22 130/61 94 Nasal Cannula 3.00 06/26/17 11:18 93 Nasal Cannula 3.00 06/26/17 09:00 Nasal Cannula 3.00 06/26/17 08:00 96.3 95 18 133/62 97 Nasal Cannula 3.00 06/26/17 07:23 96 Nasal Cannula 3.00 General Appearance: No Apparent Distress, WD/WN, Chronically ill, Obese HEENT: PERRL/EOMI, Normal ENT Inspection, Pharynx Normal Neck: Full Range of Motion, Normal Inspection, Non Tender, Supple, Carotid Bruit Respiratory: Chest Non Tender, Lungs Clear, No Accessory Muscle Use, No Respiratory Distress, Decreased Breath Sounds Cardiovascular: Regular Rate, Rhythm, No Edema, No Gallop, No JVD, No Murmur, Normal Peripheral Pulses Capillary Refill: Less Than 3 Seconds Peripheral Pulses: 2+ Dorsalis Pedis (R), 2+ Left Dors-Pedis (L), 2+ Radial Pulses (R), 2+ Radial Pulses (L) Gastrointestinal: non tender, soft Extremity: Normal Capillary Refill, Normal Inspection, Normal Range of Motion, Non Tender, No Calf Tenderness, No Pedal Edema Neurologic/Psychiatric: Alert, Oriented x3, No Motor/Sensory Deficits, Depressed Affect, Motor Weakness (right leg and foot 3/5 strength sensation is intact) Skin: Normal Color, Warm/Dry Lymphatic: No Adenopathy Results Lab Laboratory Tests 06/25/17 16:40 06/26/17 05:34 06/27/17 06:27 Clinical Quality Measures DVT/VTE Risk/Contraindication: Risk Factor Score Per Nursin RFS Level Per Nursing on Admit: 4+=Very High STEFANIE STARKS DO Jun 27, 2017 07:15
[2017-06-27 07:48] VITALS: BP 128/71
[2017-06-27] MEDS: RT-ALBUTEROL/IPRATROPIUM 3 ML (DUONEB) VIAL INH SCH ×2 (08:05→10:23)
[2017-06-27] MEDS ORDERED: NON-FORMULARY MEDICATION 1 EA EA (Omeprazole 40 MG) PO SCH (09:00)
[2017-06-27] MEDS ORDERED: LINAGLIPTIN (TRADJENTA) 5 MG TABLET PO SCH (09:00)
[2017-06-27] MEDS ORDERED: DULoxetine 30 MG (CYMBALTA) CAP PO SCH (09:00)
[2017-06-27] MEDS ORDERED: LIDOCAINE (LIDODERM) 5% PATCH TOP SCH (09:00)
[2017-06-27] MEDS ORDERED: NON-FORMULARY MEDICATION 1 EA EA (Multivitamin (Daily Multiple Vitamin) 1 TAB) PO SCH (09:00)
[2017-06-27] MEDS ORDERED: NON-FORMULARY MEDICATION 1 EA EA (Cranberry Fruit Concentrate (Cranberry) 450 MG) PO SCH (09:00)
[2017-06-27] MEDS ORDERED: NON-FORMULARY MEDICATION 1 EA EA (Sitagliptin Phosphate (Januvia) 100 MG) PO SCH (09:00)
[2017-06-27] MEDS ORDERED: LOSARTAN 50 MG (COZAAR) TAB PO SCH (09:00)
--- NOTE | 2017-06-27 09:49 | Physical Therapy Daily Note ---
PT Daily Note-Current Subjective Patient reports she feels like she is getting better today and reports that she will be getting out the hospital today whether the doctor approves or not. She agrees to PT. Pain Numeric Pain Scale: 0-No Pain Location: No Pain Reported Appearance Patient appears healthy. She is left with nursing in the shower post tx. Mental Status Patient Orientation: Normal For Age Transfers Functional [place] Measure 0=Not Assessed/NA 4=Minimal Assistance 1=Total Assistance 5=Supervision or Setup 2=Maximal Assistance 6=Modified [place] 3=Moderate Assistance 7=Complete IndependenceIRFPAI Quality Coding Scale 6 Independent with activity with or without an assistive device 5 Patient requires set up or clean up by helper. Patient completes activity by themselves 4 Supervision or touching assist (CGA). [place] provide cues , steadying assist 3 The helper provides less than half the effort to complete the activity 2 The helper provides more than half the effort to complete the activity 1 Dependent. The helper does all the effort to complete an activity 7 Patient refused to complete or attempt activity 9 The patient did not perform the activity before the current illness or injury 88 Not attempted due to Medical conditions or safety concerns Transfers (B, C, W/C) (FIM): 5 Sit to/from Stand: 5 Patient performs sit to stand transfer with SBA from PT. Weight Bearing Right Lower Extremity: Right Full Weight Bearing Left Lower Extremity: Left Full Weight Bearing Gait Training Gait (FIM): 2 Distance (FIM): 8=[phone] ft Distance: 100' Gait Level of Assist: 5 Gait Persons Needed: 1 Gait Assistive Device: FWW Patient ambulates with slow reciprocal gait pattern. She is limited by pulmonary function. Exercises Seated Therapy Exercises: Long arc quads Seated Reps: 20 Assessment Current Status: Good Progress Patient ambulated a further distance than she was able to yesterday. She reports pain in her knees possibly due to arthritis, but it is not limiting in functional activity at this point other than pain. PT will progress intervention as she tolerates. PT Entry Tech Goals Entry Tech Goals PT Entry Tech Goals Time Frame: Jul 10, 2017 Transfers (B,C,W/C) (FIM): 6 Gait (FIM): 6 Gait Assistive Device: FWW PT Plan Problem List Problem List: Activity Tolerance, Functional Strength, Safety, Balance, Gait, Transfer Treatment/Plan Treatment Plan: Continue Plan of Care Treatment Plan: Bed Mobility, Education, Functional Activity Cait, Functional Strength, Gait, Safety, Therapeutic Exercise, Transfers Treatment Duration: Jul 05, 2017 Frequency: 11 times per week Estimated Hrs Per Day: .5 hour per day Patient and/or Family Agrees t: Yes Time/GCodes Time In: 842 Time Out: 902 Total Billed Treatment Time: 20 Total Billed Treatment 1 visit FA 20 min ROMAN KELLEY PT Jun 27, 2017 09:49
--- NOTE | 2017-06-27 10:32 | Discharge Summary-Hospitalist ---
Diagnosis/Chief Complaint Date of Admission Jun 25, 2017 at 18:32 Date of Discharge Admission Diagnosis Assessment: Neurological deficit suspicious for CVA but not a TPA candidate so obtaining MRI brain and consulting PT/OT and IRU Severe COPD and oxygen dependent Continued active smoker Chronic back pain and knee pain Severe and chronic debility Vascular congestion on CXR but nl BNP consulting Cardiology DM OOC Discharge Diagnosis Assessment: Neurological deficit suspicious for CVA but not a TPA candidate so was to obtain MRI brain but patient unwilling to obtain even after Ativan given and consulted PT/OT and IRU had accepted the admit but patient refused so going home today with caregiver and walker and PCP appt in 2 weeks Severe COPD and oxygen dependent Continued active smoker Chronic back pain and knee pain Severe and chronic debility Vascular congestion on CXR but nl BNP consulting Cardiology who will perform EST as outpt DM OOC Plan: Cardiology consult appreciated Echo today due to volume overload on CXR and BNP nl Stress test tomorrow Reconcile home meds PT/OT MRI brain Rehab eval DC jamia HgA1c check AC/HS Accuchecks Start Levemir home dose (1) Neurological deficit due to ischemic stroke Status: Acute Assessment & Plan: Obtain MRI (2) Uncontrolled diabetes mellitus with hyperglycemia Status: Chronic Discharge Summary Discharge Physical Examination Allergies: Coded Allergies: aspirin (Unverified Allergy, Unknown, 03/25/14) influenza virus vaccine, specific (Unverified Allergy, Unknown, 07/23/14) morphine (Unverified Allergy, Unknown, 03/25/14) hydromorphone HCl (Unverified Adverse Reaction, Mild, VOMITING, 01/06/11) Vitals & I&Os Vital Signs Date Time Temp Pulse Resp B/P (MAP) Pulse Ox O2 Delivery O2 Flow Rate FiO2 06/27/17 07:48 98.0 94 18 128/71 90 Nasal Cannula 3.00 06/25/17 21:53 24 Hospital Course Notes from 06/27/17 Chart Review: Could not tolerate MRI even after Ativan so will DC No fever Vitals stable WBC remains 12, which appears to be a chronic level for her CMP normal except glucose 285 Dr Hamm will do out pt stress test since pt insisted on going home today Dr. Hamm Review: Dr. Hamm is okay to have the stress test done out-pt Patient Interview: Pt states that she would like to DC Pt denies needing home health since her nephew is at home with her most of the time Pt confirms having BMs Physical exam stable Pt confirms having a walker at home. Pt states that her right leg does hurt when ambulating Pt states she is okay with having the stress test out-pt but does not want it to be on giving and on 07/08/17 she has an appointment at another facility Plan: Advance diet Out-pt stress test Scribed by Joselyn Bethea under the direct supervision of Dr. Urbina. Hospital course: patient had an uneventful hospital course. She refused to have MRI to confirm or disprove CVA causing right leg weakness and garbled speech and refused IRU admit for strengthening. She had a walker at home already and has a caregiver so she was insistent on DC home without HH and will have EST scheduled as an outpt per Dr Li and will have appt with PCP in 2 weeks as scheduled. Smoking cessation counseled. Labs (last 24 hrs) Laboratory Tests 06/26/17 14:57: Troponin I < 0.30 06/26/17 15:59: Glucometer 352H 06/26/17 20:49: Glucometer 287H 06/27/17 05:12: Glucometer 228H 06/27/17 06:27: White Blood Count 12.2H, Red Blood Count 4.59, Hemoglobin 12.9, Hematocrit 41, Mean Corpuscular Volume 89, Mean Corpuscular Hemoglobin 28, Mean Corpuscular Hemoglobin Concent 32, Red Cell Distribution Width 14.6H, Platelet Count 219, Mean Platelet Volume 12.1H, Neutrophils (%) (Auto) 72, Lymphocytes (%) (Auto) 17 , Monocytes (%) (Auto) 7, Eosinophils (%) (Auto) 3, Basophils (%) (Auto) 1, Neutrophils # (Auto) 8.8H, Lymphocytes # (Auto) 2.1, Monocytes # (Auto) 0.9, Eosinophils # (Auto) 0.4H, Basophils # (Auto) 0.1, Sodium Level 140, Potassium Level 3.7, Chloride Level 102, Carbon Dioxide Level 28, Anion Gap 10, Blood Urea Nitrogen 15, Creatinine 0.68, Estimat Glomerular Filtration Rate > 60, BUN/ Creatinine Ratio 22, Glucose Level 285H, Calcium Level 9.1, Total Bilirubin 0.4 , Aspartate Amino Transf (AST/SGOT) 18, Alanine Aminotransferase (ALT/SGPT) 22, Alkaline Phosphatase 71, Total Protein 6.8, Albumin 3.1L Pending Labs Laboratory Tests 06/27/17 05:12: Glucometer 228 06/27/17 06:27: White Blood Count 12.2, Red Blood Count 4.59, Hemoglobin 12.9, Hematocrit 41, Mean Corpuscular Volume 89, Mean Corpuscular Hemoglobin 28, Mean Corpuscular Hemoglobin Concent 32, Red Cell Distribution Width 14.6, Platelet Count 219, Mean Platelet Volume 12.1, Neutrophils (%) (Auto) 72, Lymphocytes (%) (Auto) 17 , Monocytes (%) (Auto) 7, Eosinophils (%) (Auto) 3, Basophils (%) (Auto) 1, Neutrophils # (Auto) 8.8, Lymphocytes # (Auto) 2.1, Monocytes # (Auto) 0.9, Eosinophils # (Auto) 0.4, Basophils # (Auto) 0.1, Sodium Level 140, Potassium Level 3.7, Chloride Level 102, Carbon Dioxide Level 28, Anion Gap 10, Blood Urea Nitrogen 15, Creatinine 0.68, Estimat Glomerular Filtration Rate > 60, BUN/ Creatinine Ratio 22, Glucose Level 285, Calcium Level 9.1, Total Bilirubin 0.4, Aspartate Amino Transf (AST/SGOT) 18, Alanine Aminotransferase (ALT/SGPT) 22, Alkaline Phosphatase 71, Total Protein 6.8, Albumin 3.1 Discharge Home Medications: Active Scripts Active Reported Fish Oil 1,000 mg Capsule ([place] 3 Polyunsat Fatty Acids) 1,000 Mg Cap 1,000 Mg PO BID Daily Multiple Vitamin (Multivitamin) 1 Each Tablet 1 Tab PO DAILY Cranberry (Cranberry Fruit Concentrate) 450 Mg Capsule 450 Mg PO DAILY Novolog Flexpen (Insulin Aspart) 300 Units/3 Ml Solution 5-15 Units SQ AC PRN USES AN EXTRA 5-15 UNITS WITH THE 50 UNITS SCHEDULED DEPENDING ON BS 250-300 +5 UNITS 300-400 +10 UNITS 400 AND ABOVE +15 UNITS Novolog Flexpen (Insulin Aspart) 300 Units/3 Ml Solution 50 Units SQ AC Levemir Flextouch (Insulin Detemir) 100 Unit/1 Ml Insuln.pen 100 Unit SQ BID Vesicare (Solifenacin Succinate) 5 Mg Tablet 5 Mg PO DAILY Omeprazole 40 Mg Capsule.dr 40 Mg PO DAILY Furosemide 40 Mg Tablet 40 Mg PO 0800,1200 Duloxetine HCl 30 Mg Capsule.dr 30 Mg PO DAILY Clonazepam 0.5 Mg Tablet 0.5 Mg PO TID Eliquis (Apixaban) 5 Mg Tablet 5 Mg PO BID Tramadol HCl 50 Mg Tablet 50 Mg PO Q6H PRN Januvia (Sitagliptin Phosphate) 100 Mg Tablet 100 Mg PO DAILY Rosuvastatin Calcium 40 Mg Tablet 40 Mg PO HS Amitriptyline HCl 50 Mg Tablet 50 Mg PO HS Losartan Potassium 50 Mg Tablet 50 Mg PO DAILY Lidocaine 1 Each Adh..patch 1 Patch TD DAILY Lyrica (Pregabalin) 150 Mg Capsule 150 Mg PO TID Instructions to patient/family Please see electronic discharge instructions given to patient. Clinical Quality Measures DVT/VTE Risk/Contraindication: Risk Factor Score Per Nursin RFS Level Per Nursing on Admit: 4+=Very High Problem Qualifiers (1) Uncontrolled diabetes mellitus with hyperglycemia: Diabetes mellitus type: type 2 Diabetes mellitus skilled nursing insulin use: with skilled nursing use Qualified Codes: E11.65 - Type 2 diabetes mellitus with hyperglycemia; Z79.4 - jail (current) use of insulin DARRELL URBINA DO Jun 27, 2017 10:32
[2017-06-27] MEDS: OMEGA 3 (FISH OIL) 1000 MG CAP PO SCH (10:50)
[2017-06-27] MEDS: PREGABALIN 75 MG (LYRICA) CAP PO SCH (10:50)
[2017-06-27] MEDS: clonazePAM 0.5 MG (KlonoPIN) TAB PO SCH (10:50)
[2017-06-27] MEDS: APIXABAN 5 MG (ELIQUIS) TABLET PO SCH (10:51)
[2017-06-27] MEDS: inSUlin DETERMIR 1 UNIT/0.01 ML (LEVEMIR) CHARGE PER UNIT SQ SCH (10:51)
[2017-06-27] MEDS: LOSARTAN 50 MG (COZAAR) TAB PO SCH (10:51)
--- NOTE | 2017-06-27 11:44 | Occupational Ther Daily Note ---
OT Current Status-Daily Note Appearance Patient states she is leaving today. See OT evaluation completed this am. Mental Status/Objective Functional [place] Measure 0=Not Assessed/NA 4=Minimal Assistance 1=Total Assistance 5=Supervision or Setup 2=Maximal Assistance 6=Modified [place] 3=Moderate Assistance 7=Complete [place] ADL-Treatment OT Short Term Goals Short Term Goals 1=Demonstrate adherence to instructed precautions during ADL tasks. 2=Patient will verbalize/demonstrate understanding of assistive devices/ modifications for ADL. 3=Patient will improve strength/tolerance for activity to enable patient to perform ADL's. OT Audio Visual Project Manager Goals Correction Goals 1=Demonstrate adherence to instructed precautions during ADL tasks. 2=Patient will verbalize/demonstrate understanding of assistive devices/ modifications for ADL. 3=Patient will improve strength/tolerance for activity to enable patient to perform ADL's. OT Education/Plan Treatment Plan/Plan of Care Patient would benefit from OT for education, treatment and training to promote independence in ADL's, mobility, safety and/or upper extremity function for ADL' s. Rehab Potential: EVA Trujillo OT Jun 27, 2017 11:44
--- NOTE | 2017-06-27 11:56 | Cardiology Progress Note ---
Cardiology SOAP Progress Note Subjective: improved shortness of breath Objective: I&O/Vital Signs Vital Sign - Last 12Hours 06/27/17 06/27/17 06/27/17 01:00 03:54 07:48 Temp 97.1 98.0 Pulse 98 90 94 Resp 20 18 B/P (MAP) 134/71 128/71 Pulse Ox 94 90 O2 Delivery Nasal Cannula Nasal Cannula O2 Flow Rate 3.00 3.00 Weight (Pounds): 272 Weight (Ounces): 5.0 Weight (Calculated Kilograms): 123.090297 Constitutional: No appears stated age, No AAO x 3, No apparent distress, No PERRL, No well-developed, No well-nourished, No other Respiratory: No accessory muscle use, No respiratory distress, No chest tender , No chest expansion is symmetric, No chest is bilaterally symmetric, No lungs clear to percussion, No lungs clear to auscultation, No crackles, No rhonchi, No rales, No stridor, No wheezing, No pleural rub, No other Cardiovascular: regular rate-rhythm, S1 and S2 Gastrointestional: No tender, No soft, No round, No distended, No pulsatile mass, No organomegaly, No guarding, No rebound, No tenderness, No hernia, No mass, No audible bowel sounds, No abnormal bowel sounds, No abdominal bruits, No spleenomegaly, No other Extremities: No normal range of motion, No non-tender, No normal inspection, No pedal edema, No calf tenderness, No normal capillary refill, No pelvis stable , No calf tenderness, No inflammation, No pedal edema, No slow capillary refill , No swelling, No other, No abrasion, No clubbing, No cyanosis, No ecchymosis, No laceration, No no lower extremity edema bilateral, No significant edema, No tenderness, No wound Neurologic/Psychiatric: alert, normal mood/affect, oriented x 3 Skin: No normal color, No warm/dry, No cyanosis, No cool, No diaphoresis, No damp, No ecchymosis, No jaundice, No mottled, No pallor, No rash, No tattoos/ piercings, No ulcerations, No rash on exposed areas, No ulcerations on exposed areas, No other Results/Procedures: Labs Laboratory Tests 06/26/17 14:57: Troponin I < 0.30 06/26/17 15:59: Glucometer 352H 06/26/17 20:49: Glucometer 287H 06/27/17 05:12: Glucometer 228H 06/27/17 06:27: White Blood Count 12.2H, Red Blood Count 4.59, Hemoglobin 12.9, Hematocrit 41, Mean Corpuscular Volume 89, Mean Corpuscular Hemoglobin 28, Mean Corpuscular Hemoglobin Concent 32, Red Cell Distribution Width 14.6H, Platelet Count 219, Mean Platelet Volume 12.1H, Neutrophils (%) (Auto) 72, Lymphocytes (%) (Auto) 17 , Monocytes (%) (Auto) 7, Eosinophils (%) (Auto) 3, Basophils (%) (Auto) 1, Neutrophils # (Auto) 8.8H, Lymphocytes # (Auto) 2.1, Monocytes # (Auto) 0.9, Eosinophils # (Auto) 0.4H, Basophils # (Auto) 0.1, Sodium Level 140, Potassium Level 3.7, Chloride Level 102, Carbon Dioxide Level 28, Anion Gap 10, Blood Urea Nitrogen 15, Creatinine 0.68, Estimat Glomerular Filtration Rate > 60, BUN/ Creatinine Ratio 22, Glucose Level 285H, Calcium Level 9.1, Total Bilirubin 0.4 , Aspartate Amino Transf (AST/SGOT) 18, Alanine Aminotransferase (ALT/SGPT) 22, Alkaline Phosphatase 71, Total Protein 6.8, Albumin 3.1L A/P: Assessment/Dx: 1. Subacute stroke. 2. Shortness of breath. 3. Diabetes. 4. Active smoking. Plan: Will defer treatment of diabetes and subacute stroke to the primary team. Shortness of breath is likely multifactorial. On examination no significant congestive heart failure. BNP on admission was negative therefore unlikely to be significant congestive heart failure. echocardiogram pending. Due to multiple coronary risk factors and shortness of breath, I will recommend pharmacological nuclear stress test which will be done as an outpatient on Saturday. Smoking cessation was strongly recommended. cardiology follow-up in 2-3 weeks. Thank you for your consultation. Please call me if you have any questions. Cliff Hamm MD, FACP, FACC, FSCAI, FHRS, CCDS Interventional Cardiology Cardiac Electrophysiology Vascular Medicine and Endovascular Interventions Alan HAMM MD Jun 27, 2017 11:56 am
--- NOTE | 2017-06-27 11:57 | Occupational Therapy Eval ---
OT Evaluation-General/PLF Medical Diagnosis Admission Date Jun 25, 2017 at 18:32 Medical Diagnosis: possible CVA Onset Date: Jun 25, 2017 Therapy Diagnosis Therapy Diagnosis: Possible CVA, weakness Height/Weight Height (Feet): 5 Height (Inches): 9.00 Weight (Pounds): 272 Weight (Ounces): 5.0 Precautions Precautions/Isolations: Standard Precautions Safety Interventions: None Weight Bear Status Weight Bearing Restriction: Weight Bearing/Tolerated Referral Physician: Rasheed Referral Reason: Evaluation/Treatment Medical History Pertinent Medical History: Arthritis, COPD, HTN Additional Medical History Numbness hands and feet, smoker, pneumonia, chronic UTI, anxiety, depression, high cholestrol, gallbadder surgery. Current History Patient admitted 06/25/17 following an episode of slurred speech and weakness in the right leg. She reports she had had problems with the slurred speech for several weeks. She is also reporting a history of falling at home. She uses a walker and also has a cane. The nephew, who is present during this visit, voices concern that she is not getting out of the home much. She attributes this to arthritis pain in cooler weather. Social History Home: Single Level Current Living Status: Other Family Entry Into Home: Stairs With Railing Steps Into Home: 2 Steps Inside Home: 0 ADL-Prior Level of Function ADL PLOF Comments She reports independence in all self care and IADL at home. She has a nephew who lives with her and is present most of the time. She uses a walk in shower and is considering a bath bench for home use. No other equipment is in the bathroom. Drive Self: No OT Current Status Subjective "OK come on in, I am eating late because they told me I couldn't have anything to eat until I had this test and now they aren't doing the test, so I am having soup." Appearance Seated at bedside feeding self soup. She handles all utensils appropriately with the dominant left hand. Mental Status/Objective Patient Orientation: Person, Place, Situation Attachments: IV, Oxygen Current Glasses/Contacts: Yes Hearing Aids: No Dentures/Partials: Yes Hand Dominance: Left Upper Extremity ROM WNL Upper Extremity Coordination Intact per observation and report. Upper Extremity Sensation Numbness in the hands and the feet from neuropathy. Upper Extremity Strength WNL ADL-Treatment ADL-Current She reports she is able to shower and to toilet in her bathroom independently. Functional [place] Measure 0=Not Assessed/NA 4=Minimal Assistance 1=Total Assistance 5=Supervision or Setup 2=Maximal Assistance 6=Modified [place] 3=Moderate Assistance 7=Complete IndependenceIRFPAI Quality Coding Scale 6 Independent with activity with or without an assistive device 5 Patient requires set up or clean up by helper. Patient completes activity by themselves 4 Supervision or touching assist (CGA). [place] provide cues , steadying assist 3 The helper provides less than half the effort to complete the activity 2 The helper provides more than half the effort to complete the activity 1 Dependent. The helper does all the effort to complete an activity 7 Patient refused to complete or attempt activity 9 The patient did not perform the activity before the current illness or injury 88 Not attempted due to Medical conditions or safety concerns FIM scores are not done at the time of this initial evaluation. Education OT Patient Education: Use of adapted equipment Teaching Recipient: Patient, Family Teaching Methods: Discussion Response to Teaching: Verbalize Understanding (Discussed the use of a bath bench in the shower as she has history of falling.) OT Short Term Goals Short Term Goals Time Frame: Jun 27, 2017 1=Demonstrate adherence to instructed precautions during ADL tasks. 2=Patient will verbalize/demonstrate understanding of assistive devices/ modifications for ADL. 3=Patient will improve strength/tolerance for activity to enable patient to perform ADL's. No short term goals are established as she is leaving today. OT Reproductive Endocrinologist Goals Assisted Goals Time Frame: Jun 27, 2017 1=Demonstrate adherence to instructed precautions during ADL tasks. 2=Patient will verbalize/demonstrate understanding of assistive devices/ modifications for ADL. 3=Patient will improve strength/tolerance for activity to enable patient to perform ADL's. No alf related to ADL is established due to up coming discharge. OT Education/Plan Discharge Recommendations Plan/Recommendations: Discontinue OT Equpiment Recommendations-D/C: Bath Chair Barriers to Progress None noted Target Placement Return home today. Patient/Family Goals Home with nephew Treatment Plan/Plan of Care Patient would benefit from OT for education, treatment and training to promote independence in ADL's, mobility, safety and/or upper extremity function for ADL' s. Plan of Care: OTHER Comment ADL equipment for safety. Treatment Duration: Jun 27, 2017 Frequency: 1 time per week Estimated Hrs Per Day: .5 hour per day Agreement: Yes Rehab Potential: Good Time/GCodes Start Time: 10:00 Stop Time: 10:30 Total Time Billed (hr/min): 30 Billed Treatment Time Visit, EVA Smith OT Jun 27, 2017 11:57
[2017-06-27] MEDS ORDERED: LIDODERM PATCH REMOVAL TP SCH (21:00)
== END 2017-06-27 12:15 | disposition home or self-care (01) | DRG 66 ==
LOC: EDUNIT# 16:36 → ER 16:37 → 4TH 18:32
PROVIDERS: ADMIT Internal Medicine; ATTEND Internal Medicine
DX: I63.9 Cerebral infarction, unspecified (principal); R47.81 Slurred speech; E11.65 Type 2 diabetes mellitus with hyperglycemia; R42 Dizziness and giddiness; R41.0 Disorientation, unspecified; M62.81 Muscle weakness (generalized); I10 Essential (primary) hypertension; E11.40 Type 2 diabetes mellitus with diabetic neuropathy, unspecified; J44.9 Chronic obstructive pulmonary disease, unspecified; J45.909 Unspecified asthma, uncomplicated; F17.210 Nicotine dependence, cigarettes, uncomplicated; K21.9 Gastro-esophageal reflux disease without esophagitis; M19.91 Primary osteoarthritis, unspecified site; H93.19 Tinnitus, unspecified ear; F41.9 Anxiety disorder, unspecified; F32.9 Major depressive disorder, single episode, unspecified; E78.00 Pure hypercholesterolemia, unspecified; M54.9 Dorsalgia, unspecified; G89.29 Other chronic pain; Z79.01 Long term (current) use of anticoagulants; Z79.4 Long term (current) use of insulin; Z87.440 Personal history of urinary (tract) infections; Z87.19 Personal history of other diseases of the digestive system; Z99.81 Dependence on supplemental oxygen
CPT/HCPCS: 36415; 70450; 71010; 80053; 81000; 82962; 83036; 83880; 84484; 85007; 85025; 85027; 85379; 85610; 85730; 87040; 93005; 93041; 93306; 94640; 94760; 96374; 96375

== ENCOUNTER → 2017-07-01 | Outpatient (CLI) | payer MEDICARE, MEDICAID ==
[~2017-07-01] MED LIST changes: +APIX5TAB PO; +CLON0.5T3 PO; +CRAN450C PO; +DULO30CA48 PO; +HYDR50TA76 PO; +INSU100I29 SQ; +LIDO700A45 TD; +LOSA50TA36 PO; +MULT-35 PO; +NF-SOLIF5T PO; +OMEP40CA36 PO; +OMG1KC PO; +PREG150C PO; +ROSU40TA20 PO; +SITA100T12 PO
== END ==
LOC: CARD 10:30
PROVIDERS: ATTEND Internal Medicine Interventional Cardiology
DX: I50.9 Heart failure, unspecified (principal); Z53.29 Procedure and treatment not carried out because of patient's decision for other reasons

== ENCOUNTER → 2017-10-31 | Outpatient (CLI) | payer MEDICARE, MEDICAID ==
[~2017-10-31] MED LIST changes: +CATHETER FLUSH 10 ML SYR IV PRN; +REGADENOSON 0.4 MG/5 ML SYR (LEXISCAN) IV ONE; -ROSU40TA20 PO; +ROSU40TA21 PO
[2017-10-31 09:07] VITALS: BP 133/78
--- NOTE | 2017-10-31 17:29 | Cardiology Stress Test Report ---
Stress Test Report Type of NM Stress Test: Test Type: LEXISCAN 0.4MG/5ML Date of Procedure/Referring: Date of Procedure: Oct 31, 2017 PCP Alan Hamm MD Admitting Physician Johan Teresa MD Indications: Chest pain Baseline Heart Rate: 101 Baseline Blood Pressure: Blood Pressure Systolic: 133 Blood Pressure Diastolic: 78 Baseline EKG: Baseline EKG: sinus rhythm Summary: The patient was brought to the stress lab after informed consent was taken. Lexiscan stress test was performed according to the protocol. 0.4 mg of IV Lexiscan was given. Low-grade exercise was performed. Baseline EKG showed sinus rhythm at 101 BPM. Blood pressure 133/78 mmHg. Maximum heart rate of 112 bpm and blood pressure 143/76 mmHg. Patient did not complain of any chest pain, no ST-T wave abnormalities or arrhythmias were noted. 10.65 mCi of Myoview was given for rest imaging and 29.7 mCi of Myoview was given for stress imaging. Transient ischemic dilatation score of 1.08. EF 58 percent. A fixed small apical defect was noted. There is a moderate sized intermediate intensity anterior reversible defect noted. SSS 12, SRS 4, SDS 8. Conclusion: Pharmacological stress test is negative for ischemia. Normal LV function with no wall motion abnormalities. Possible apical infarct with alina-infarct ischemia. Coronary angiography is recommended. Alan HAMM MD Oct 31, 2017 5:29 pm
== END ==
LOC: CARD 07:14
PROVIDERS: ATTEND Internal Medicine Interventional Cardiology
DX: R07.9 Chest pain, unspecified (principal); E13.9 Other specified diabetes mellitus without complications; I10 Essential (primary) hypertension; E78.2 Mixed hyperlipidemia; R06.00 Dyspnea, unspecified
CPT/HCPCS: 78452; 93017

== ENCOUNTER → 2017-11-05 | Outpatient (CLI) | payer MEDICARE, MEDICAID ==
[~2017-11-05] MED LIST changes: -CATHETER FLUSH 10 ML SYR IV PRN; +LOSA100T28 PO; +PREG100C PO; -REGADENOSON 0.4 MG/5 ML SYR (LEXISCAN) IV ONE; +RT-ALBUINH IH
== END ==
LOC: CARD 12:43
PROVIDERS: ATTEND Internal Medicine Interventional Cardiology
DX: R07.9 Chest pain, unspecified (principal); E13.9 Other specified diabetes mellitus without complications; I10 Essential (primary) hypertension; E78.2 Mixed hyperlipidemia; R06.00 Dyspnea, unspecified
CPT/HCPCS: 93306

== ENCOUNTER 2017-11-07 08:21 | Day surgery (SDC) | payer MEDICARE, MEDICAID ==
[~2017-11-07] VITALS: Ht 175.3 cm; Wt 123.5 kg
[2017-11-07] VITALS (10 sets, daily range): BP systolic 107–163; BP diastolic 64–91
[~2017-11-07 08:21] MED LIST changes: -LOSA100T28 PO; -PREG100C PO; -RT-ALBUINH IH
[2017-11-07] MEDS ORDERED: HEParin (CATH LAB) 2,000 ML IV ONE (08:29)
[2017-11-07] MEDS ORDERED: NS IV 1000 ML 1,000 ML IV SCH ×2 (08:30→11:11)
[2017-11-07] MEDS ORDERED: LIDOCAINE 1% INJ 50 ML (XYLOCAINE) VIAL ONE (08:31)
[2017-11-07 08:59] LABS: HEMOGLOBIN 14.6 G/DL (11.5-16.0); MEAN PLATELET VOLUME 12.4 FL (7.4-10.4); RED BLOOD COUNT 4.98 10^6/uL (4.35-5.85); RED CELL DISTRIBUTION WIDTH 15.1 % (10.0-14.5); WHITE BLOOD COUNT 13.7 10^3/uL (4.3-11.0)
[2017-11-07] MEDS ORDERED: LOSA100T28 PO (09:20)
[2017-11-07] MEDS ORDERED: FURO40TA4 PO (09:21)
[2017-11-07 09:22] LABS: ALBUMIN 3.6 GM/DL (3.2-4.5); BILIRUBIN,TOTAL 0.5 MG/DL (0.1-1.0); CALCIUM 9.5 MG/DL (8.5-10.1); CREATININE SERUM 0.98 MG/DL (0.60-1.30); TOTAL PROTEIN 7.4 GM/DL (6.4-8.2)
[2017-11-07] MEDS ORDERED: PREG100C PO (09:24)
[2017-11-07] MEDS ORDERED: MIDAZOLAM 5 MG/5 ML (VERSED) VIAL ONE (09:26)
[2017-11-07] MEDS ORDERED: TRAM50TA2 PO (09:26)
[2017-11-07] MEDS ORDERED: fentaNYL INJECTION 100 MCG/2 ML AMP ONE (09:27)
[2017-11-07] MEDS ORDERED: CYCL10TA9 PO (09:27)
[2017-11-07] MEDS ORDERED: HYDR50TA76 PO (09:28)
[2017-11-07] MEDS ORDERED: RT-ALBUINH IH (09:31)
[2017-11-07 09:32] LABS: PROTHROMBIN TIME PATIENT 13.5 SEC (12.2-14.7)
--- NOTE | 2017-11-07 10:34 | Cardiac Procedure Note-CS/ASA ---
Pre-Procedure Note Pre-Op Procedure Note H&P Reviewed The H&P was reviewed, patient examined and no changes noted. Date H&P Reviewed: Nov 07, 2017 Time H&P Reviewed: 10:34 Conscious Sedation Pre-Proced Time Reviewed: 10:34 ASA Class: 3 Airway Mallampati Classification: ([place] appropriate class) I. II. III, IV Lungs Heart ASA score ASA 1: a normal healthy patient ASA 2: a patient with a mild systemic disease (mid diabetes, controlled hypertension, obesity ASA 3: a patient with a severe systemic disease that limits activity (angina , COPD, prior Myocardial infarction) ASA 4: a patient with an incapacitating disease that is a constant threat to life (CHF, renal failure) ASA 5: a moribund patient not expected to survive 24 hrs. (ruptured aneurysm) ASA 6: a declared brain patient whose organs are being harvested. For emergent operations, add the letter E after the classification Grade 1 Sedation Plan: Analgesia, Amnesia, Plan communicated to team members, Discussed options with patient/fam, Discussed risks with patient/fam Note The patient is an appropriate candidate to undergo the planned procedure, sedation, and anesthesia. The patient immediately re-assessed prior to indication. Alan BAILEY MD Nov 07, 2017 10:34 am
[2017-11-07] MEDS ORDERED: PATIENT MAY USE OWN MEDS, ALL PO SCH (11:15)
--- NOTE | 2017-11-07 11:17 | Coronary Angiography Report ---
Coronary Angiography Report DATE OF PROCEDURE: 11/07/17 INDICATION: chest pain, abnormal nuclear stress test. PREOPERATIVE DIAGNOSIS: chest pain, abnormal nuclear stress test. POSTOPERATIVE DIAGNOSIS: patent epicardial coronary arteries. HISTORY: this is 52-year-old lady with history of recurrent chest pain. Nuclear stress test showed evidence of likely apical ischemia.Therefore, the patient was scheduled for coronary angiography. PROCEDURES PERFORMED: 1.Coronary angiography. 2.Left heart catheterization. 3. Aortic arch angiography. COMPLICATIONS: None. SPECIMENS: None. ESTIMATED BLOOD LOSS: 10 mL ANESTHESIA: Conscious sedation ANTICOAGULATION: none CONTRAST: 51 mL. FLUOROSCOPY: 4.1 minutes. FLOUROSCOPY DOSE: 513 mgy. PROCEDURE DETAILS: The patient is a 52 female and was brought to the bottle labeler after informed consent was taken. All the risks and complications were explained in detail; this included the risk of bleeding, vascular damage, stroke , [place] and even . The patient was draped and prepped in the usual sterile fashion. Yamil's test was abnormal therefore Access was gained in the right femoral artery with a 5 Prydeinig sheath. Coronary angiography and left heart catheterization was performed with the JR4, JL4, pigtail catheter. Arch angiography was performed with a pigtail catheter. FINDINGS: 1.Left main: patent. 2.LAD: patent. 3.Left circumflex artery: patent. 4.RCA: patent. 5.Left heart catheterization: aortic pressure 122/75 mmHg. LV pressure 133/8 mmHg. LVEDP 13 mmHg. Normal LV function with no wall motion abnormalities. No gradient across the aortic valve. 6. Aortic arch angiography: No evidence of aneurysm or dissection. Normal proximal segments of great arteries including brachiocephalic artery, left common carotid artery and left subclavian artery. CONCLUSIONS: patent epicardial coronary arteries. Normal LV function with no wall motion abnormalities. Cliff Hamm MD, FACP, FACC, [facility] Interventional Cardiology Alan HAMM MD Nov 07, 2017 11:17 am
--- NOTE | 2017-11-07 11:27 | Discharge Inst-Post CATH ---
Discharge Inst-CATH Post Cardiac Cath D/C Inst Follow Up/Plan Dr Hamm in 2-4 weeks CARDIAC CATH DISCHARGE INSTRUCTIONS *Hold Metformin for 48 hours post heart cath. ACTIVITY * Go Home directly and rest. * Limit activity of the leg (or wrist if it was used) for 7 days including aerobics, swimming, jogging, bicycling, etc. * Restrict stair-climbing for 7 days if possible, if not, climb up with your non -cath leg, then bring together on the same step. * Avoid lifting, pushing, pulling or excessive movement of the affected extremity for 7 days. * Customary sexual activity may be resumed after 2 days-use caution not to use a position that strains or causes pain to the affected extremity. * No driving for 24 hours. * NO SMOKING. * Avoid straining for bowel movements for 7 days. * Gentle walking on level ground is allowed. * Returning to work will depend on the type of procedure and the results. Your doctor will discuss this with you. CALL YOUR DOCTOR FOR ANY OF THE FOLLOWING: *If bleeding from the puncture site occurs- Apply gentle pressure to site with clean cloth and call your doctor or EMS. * If a knot or lump forms under the skin, increases in size, or causes pain. * If bruising appears to be worsening or moving further down your leg instead of disappearing. * Temperature above 101 F. CARE OF YOUR GROIN INCISION; * Bruising or purple discoloration of the skin near the puncture site is common. * You may shower only, no bathtub bathing for 5 days. Be careful to avoid slipping as your leg may feel stiff. * If a closure device was used on your femoral artery, please see the attached guide regarding care of the device and your leg. * REMOVE the dressing from your groin the next day after your procedure in the shower. CARE OF YOUR WRIST INCISION; * Bruising or purple discoloration of the skin near the puncture site is common. * You may shower. * DO NOT submerge wrist. * Remove dressing in 24 hours. Alan HAMM MD Nov 07, 2017 11:27 am
--- NOTE | 2017-11-07 11:30 | Cardiology Discharge Summary ---
Diagnosis/Chief Complaint Date of Admission 11/07/2017 Date of Discharge 11/07/2017 Admission Diagnosis recurrent chest pain, abnormal nuclear stress test Final/Discharge Diagnosis patent epicardial coronary arteries. Chief Complaint/HPI Chief Complaint/HPI this is a 52-year-old lady with history of diabetes and atrial fibrillation. She presented with recurrent chest pain. Stress test was performed which showed evidence of apical ischemia. Coronary angiography was recommended. Discharge Summary Procedures coronary angiography showed patent epicardial coronary arteries. Discharge Physical Examination normal cardiovascular examination. Normal respiratory examination. Hospital Course unremarkable Pending Labs Laboratory Tests 11/07/17 08:52: White Blood Count 13.7, Red Blood Count 4.98, Hemoglobin 14.6, Hematocrit 44, Mean Corpuscular Volume 88, Mean Corpuscular Hemoglobin 29, Mean Corpuscular Hemoglobin Concent 33, Red Cell Distribution Width 15.1, Platelet Count 244, Mean Platelet Volume 12.4, Prothrombin Time 13.5, INR Comment 1.0, Activated Partial Thromboplast Time 27, Sodium Level 134, Potassium Level 4.0, Chloride Level 93, Carbon Dioxide Level 29, Anion Gap 12, Blood Urea Nitrogen 21, Creatinine 0.98, Estimat Glomerular Filtration Rate 59, BUN/Creatinine Ratio 21 , Glucose Level 396, Calcium Level 9.5, Total Bilirubin 0.5, Aspartate Amino Transf (AST/SGOT) 21, Alanine Aminotransferase (ALT/SGPT) 27, Alkaline Phosphatase 90, Total Protein 7.4, Albumin 3.6 Discussion & Recommendations Discussion discharge instructions given to the patient. I'll follow-up in 2-4 weeks. Follow up appt.: Dr. Hamm in 2-4 weeks. Dicharge Diet: ADA Diet Activity as Tolerated: Yes Home Medications Reviewed patient Home Medication Reconciliation performed by pharmacy medication reconciliations tv technician and/or nursing. Patients Allergies have been reviewed. Discharge Home Medications: Reviewed and agree with Discharge Medication list on patient's Discharge Instruction sheet Condition at discharge stable. Instructions to patient/family Dr Hamm in 2-4 weeks Alan HAMM MD Nov 07, 2017 11:30 am
== END 2017-11-07 14:40 | disposition home or self-care (01) ==
LOC: CATH 08:21 → SURG 11:26 → CATH 14:40
PROVIDERS: ATTEND Internal Medicine Interventional Cardiology
DX: R07.9 Chest pain, unspecified (principal); R94.39 Abnormal result of other cardiovascular function study; I25.10 Atherosclerotic heart disease of native coronary artery without angina pectoris; I10 Essential (primary) hypertension; E78.2 Mixed hyperlipidemia; E11.40 Type 2 diabetes mellitus with diabetic neuropathy, unspecified; R06.02 Shortness of breath; J45.909 Unspecified asthma, uncomplicated; M19.91 Primary osteoarthritis, unspecified site; F32.9 Major depressive disorder, single episode, unspecified; F17.210 Nicotine dependence, cigarettes, uncomplicated; E66.01 Morbid (severe) obesity due to excess calories; Z68.41 Body mass index [BMI] 40.0-44.9, adult; Z86.711 Personal history of pulmonary embolism; Z86.73 Personal history of transient ischemic attack (TIA), and cerebral infarction without residual deficits; Z79.01 Long term (current) use of anticoagulants; Z79.4 Long term (current) use of insulin; Z79.899 Other long term (current) drug therapy
CPT/HCPCS: 36221; 36415; 80053; 82962; 85027; 85610; 85730; 87081; 93458

== ENCOUNTER 2018-09-22 15:04 | Inpatient (IN) | payer MEDICARE, MEDICAID ==
[~2018-09-22] VITALS: Ht 175.3 cm; Wt 102.1 kg
[~2018-09-22 15:04] MED LIST changes: +CLON0.5T13 PO; -CLON0.5T3 PO; +LOSA100T57 PO; -LOSA50TA36 PO; +LOSA50TA63 PO; +PREG100C PO; -ROSU40TA21 PO; +ROSU40TA22 PO; +RT-ALBUINH IH
--- OUTSIDE RECORDS SUMMARY | 2018-09-22 15:08 | XMS REPORT | Clinical Summary ---
Author Author [facility] Organization [facility] Address Unknown Phone Unavailable Care Team Providers Care Varnish Filterer Name Role Phone PCP Unavailable Allergies Not on File Current Medications Not on file Active Problems Not on file Social History Tobacco Use Types Packs/Day Years Used Date Never Assessed Sex Assigned at Date Recorded Not on file Last Filed Vital Signs Not on file Plan of Treatment Not on file Results Not on filefrom Last 3 Months
[2018-09-22] MEDS ORDERED: NS IV 1000 ML 1,000 ML ONE (15:11)
--- OUTSIDE RECORDS SUMMARY | 2018-09-22 15:11 | XMS REPORT ---
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 Name Role Phone ALBIN RENAE Unavailable PROBLEMS Type Condition ICD9-CM Code NXI33-CA Code Onset Dates Condition Status SNOMED Code Problem Type 2 diabetes mellitus with other skin ulcer E11.622 Active 82164642 Problem Foot swelling M79.89 Active 671377820 Problem Stress incontinence in female N39.3 Active 82748405 Problem Neuropathy G62.9 Active 695558540 Problem Pulmonary HTN I27.2 Active 47499378 Problem Ulcer of right lower leg, with unspecified severity L97.919 Active 327515596 Problem Cough R05 Active 418408386 Problem Atrial enlargement, left I51.7 Active 11548930533896 Problem Left ventricular enlargement I51.7 Active 865371723 Problem CAD (coronary artery disease) I25.10 Active 01528074 Problem Anxiety F41.9 Active 98851916 Problem 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 Active 68039323 Problem Dyspepsia R10.13 Active 596571210 Problem Essential hypertension I10 Active 64712261 Problem Allergic rhinitis J30.9 Active 84433925 Problem intermediate 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 Active 755448138 Problem Skin infection L08.9 Active 665682340 Problem Chronic pain G89.29 Active 57461500 Problem Non-healing skin lesion L98.9 Active 67130429 ALLERGIES No Information ENCOUNTERS Encounter Location Date Diagnosis [facility] [id number], [place] [address] May, [facility] [id number], [place] [address] Apr, [facility] [id number], [place] [address] 49[address] Apr, Essential hypertension I10 and 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 [facility] [address], [place] [address] Mar, [facility] [id number] [place] [address] 12498- 9930 Feb, Onychomycosis B35.1 ; Neuropathy G62.9 and 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 [facility] [address], [place] [address] Feb, [facility] [id number] [place] [address] 63989- 2908 December, [facility] [id number] [place] [address] 00400- 7244 December, Herpes zoster without complication B02.9 ; Onychia of toe of left foot L03.032 ; Ingrowing toenail with infection L60.0 and 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 [place] [address], [place] [address] December, [facility] [address], [place] [address] Nov, [facility] [address], [place] [address] 4567 Oct, 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 [facility] [address], [place] [address] 4856 Oct, Essential hypertension I10 and 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 [facility] [address], [place] [address] 14[address] Sep, 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 ; Type 2 diabetes mellitus with other skin ulcer E11.622 ; Chronic pain G89.29 ; Anxiety F41.9 ; Essential hypertension I10 ; Hypoxia R09.02 ; Atrial enlargement, left I51.7 and Left ventricular enlargement I51.7 [facility] [address], [place] [address] Sep, [facility] [id number] [place] [address] 51664- 8321 Aug, [facility] [id number] [place] [address] 88379- 4362 Jul, [facility] [id number] [place] [address] 74253- 9732 Jul, [facility] [id number] [place] [address] 01529- 1455 Jul, CAD (coronary artery disease) I25.10 ; Essential hypertension I10 ; Pulmonary HTN I27.2 ; Atrial enlargement, left I51.7 and Left ventricular enlargement I51.7 [facility] [facility] [id number] [place] [address] 60598- 2539 Jun, [facility] [id number] [place] [address] 49398- 4019 Jun, [facility] [id number] [place] [address] 15084- 0256 Jun, [facility] [address], [place] [address] 5216 Jun, [facility] [id number] [place] [address] 73918- 6555 Jun, 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 ; Type 2 diabetes mellitus with other skin ulcer E11.622 ; Chronic pain G89.29 ; Anxiety F41.9 ; Essential hypertension I10 ; Ulcer of right lower leg, with unspecified severity L97.919 ; Pulmonary HTN I27.2 ; Hypoxia R09.02 ; Atrial enlargement, left I51.7 and Left ventricular enlargement I51.7 [facility] [id number] [place] [address] 89431- 0644 May, [facility] [id number] [place] [address] 45874- 6616 08 Apr, 2016 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 ; Type 2 diabetes mellitus with other skin ulcer E11.622 ; Chronic pain G89.29 ; Anxiety F41.9 ; Cough R05 ; Essential hypertension I10 and Ulcer of right lower leg, with unspecified severity L97.[address] [address]- [address] 11 Mar, 2016 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 ; Chronic pain G89.29 ; Anxiety F41.9 ; Type 2 diabetes mellitus with other skin ulcer E11.622 ; Cough R05 ; Essential hypertension I10 and Ulcer of right lower leg, with unspecified severity L97.919 [place] [facility] [id number] [place] [address] 22410- 4889 Feb, [address] [address]- 2523 Feb, 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 ; Chronic pain G89.29 ; Anxiety F41.9 ; Type 2 diabetes mellitus with other skin ulcer E11.622 ; Cough R05 and Essential hypertension I10 [id number] [place] [address] 05988- 5984 Jan, Chronic pain G89.29 ; Anxiety F41.9 and Foot swelling M79.89 [place] [id number] [place] [address] 76408- 5051 December, Chronic pain G89.29 ; Anxiety F41.9 and Stress incontinence in female N39.[address] 7[address]79- 6902 December, [facility] [id number] [place] [address] 37231- 3363 Nov, [address] [address]- 7981 Nov, [facility] [address], [place] [address]- 1651 Nov, [facility] [id number] [place] [address] 37358- 6569 Nov, Chronic pain G89.29 ; Anxiety F41.9 ; Non-healing skin lesion L98.9 and Type 2 diabetes mellitus with other skin ulcer E11.622 [facility] [id number] [place] [address] 06666- 4543 Nov, 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 [facility] [address] [place] [address] 58157- 6276 Nov, [facility] [id number] [place] [address] 13567- 5401 Nov, [facility] [id number] [place] [address] 49745- 2240 Nov, [facility] [id number] [place] [address] 78164- 5011 Nov, [facility] [id number] [place] [address] 09947- 2099 Nov, 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 [facility] [address] [place] [address] 26220- 7131 Oct, 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 ; Essential hypertension I10 ; Chronic pain G89.29 ; Anxiety F41.9 and Skin infection L08.9 [facility] [address], [place] [address]- 6738 Oct, [facility] [id number] [place] [address] 87526- 5095 Sep, [facility] [address], [place] [address]- 3679 Sep, 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 ; Chronic pain G89.29 ; Anxiety F41.9 and Allergic rhinitis J30.9 [place] [address] [address]- 1146 Aug, 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 ; Chronic pain G89.29 ; Anxiety F41.9 and Allergic rhinitis J30.[address] 8[address]01- 4965 Jul, [place] [address] 17882- 6507 Jul, 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 ; Dyspepsia R10.13 ; Essential hypertension I10 ; intermediate 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 ; CAD (coronary artery disease) I25.10 ; Chronic pain G89.29 ; Anxiety F41.9 ; Dysuria R30.0 and Pain of left lower leg M79.662 [place] [address] 08320- 8362 Jul, [place] [address] 45982- 0724 Jun, 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 and intermediate 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 [place] [address] 89767- 7652 Jun, [place] [address] 56877- 7349 Jun, Neuropathy G62.9 ; Arthritis M19.90 ; Leg cramps R25.2 and Anxiety F41.9 [place] [address] 04505- 4184 May, [place] [address] 12798- 5642 May, [place] [address] 97767- 6853 May, 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 [facility] [address], [place] [address]- 8088 May, [facility] [address], [place] [address]- 9479 29 Apr, 2015 [facility] [address], [place] [address]- 9962 Apr, [facility] [id number] [place] [address] 75992- 4695 17 Apr, 2015 [facility] [id number] [place] [address] 04865- 9886 14 Apr, 2015 [facility] [id number] [place] [address] 52774- 8378 Apr, [facility] [id number] [place] [address] 00204- 8958 Apr, [facility] [address], [place] [address]- 4288 Apr, Diabetes with renal manifestations, type II or unspecified type, uncontrolled 250.42 ; Coronary atherosclerosis of unspecified type of vessel, [place] or graft 414.00 ; Polyneuropathy in diabetes 357.2 ; Hypertension 401.9 ; Anxiety 300.00 ; GERD (gastroesophageal reflux disease) 530.81 and Type 2 diabetes mellitus with pressure callus 250.80 [facility] [address], [place] [address]- 1576 Mar, [facility] [address], [place] [address]- 8397 Mar, [facility] [id number] [place] [address] 04461- 6161 Mar, [facility] [address], [place] [address]- 1721 Mar, [facility] [address], [place] [address]- 7673 Mar, Diabetes with renal manifestations, type II or unspecified type, uncontrolled 250.42 ; Coronary atherosclerosis of unspecified type of vessel, [place] or graft 414.00 ; Polyneuropathy in diabetes 357.2 ; Hypertension 401.9 and Anxiety 300.00 [facility] [id number], [place] [address]- 5264 Mar, Routine gynecological examination V72.31 ; Breast cancer screening V76.10 ; Recurrent urinary tract infection 599.0 ; Mastodynia 611.71 and Tobacco abuse 305.1 [facility] [id number] [place] [address] 28808- 3260 Feb, [facility] [id number] [place] [address] 12126- 2217 Jan, [facility] [id number] [place] [address] 06949- 6293 Jan, [facility] [id number] [place] [address] 55759- 2944 Jan, [facility] [id number] [place] [address] 97387- 6757 Jan, [facility] [id number] [place] [address] 73025- 0515 December, [facility] [id number] [place] [address] 47506- 4185 December, [facility] [id number] [place] [address] 87198- 8727 Nov, [facility] [id number] [place] [address] 14025- 4518 Nov, [facility] [id number] [place] [address] 13543- 8014 Nov, [facility] [id number] [place] [address] 19991450- 8705 Oct, [facility] [id number] [place] [address] 04803- 7583 19 Oct, 2014 [facility] [place] [facility] [address] [id number] [place] [address]- 6863 16 Oct, 2014 [facility] [place] [facility] [address] [id number] [place] [address]- 5380 16 Oct, 2014 [facility] [place] [facility] [address] [id number] [place] [address]- 6216 16 Oct, 2014 [facility] [place] [facility] [address] [id number] [place] [address]- 7888 16 Oct, 2014 [facility] [place] [facility] [address] [id number] [place] [address]- 3940 16 Oct, 2014 [facility] [place] [facility] [address] [id number] [place] [address]- 0489 16 Oct, 2014 [facility] [place] [facility] [address] [id number] [place] [address]- 5376 16 Oct, 2014 [facility] [place] [facility] [address] [id number] [place] [address]- 3463 16 Oct, 2014 [facility] [place] [facility] [address] [id number] [place] [address]- 0567 16 Oct, 2014 [facility] [place] [facility] [address] [id number] [place] [address]- 9420 16 Oct, 2014 [facility] [place] [facility] [address] [id number] [place] [address]- 9120 04 Oct, 2014 [facility] [place] [facility] [address] [id number] [address]- 1548 04 Oct, 2014 [facility] [place] [facility] [address] [id number] [place] [address]- 8032 03 Oct, 2014 [facility] [place] [facility] [address] [id number] [place] [address]- 8162 03 Oct, 2014 [facility] [place] [facility] [address] [id number] [place] [address]- 3289 02 Oct, 2014 [facility] [place] [facility] [address] [facility] [id number] [place] [address]- 6781 Oct, [facility] [place] [facility] [address] [id number] [place] [address]- 5031 Sep, 2014 [facility] [place] [facility] [address] [facility] [id number] [place] [address]- 2546 Sep, 2014 [facility] [place] [facility] [address] [facility] [id number] [place] [address]- 8371 Sep, 2014 [facility] [place] [facility] [address] [facility] [id number] [place] [address]- 4172 Sep, 2014 [facility] [place] [facility] [address] [facility] [id number] [place] [address]- 7592 Sep, 2014 [facility] [place] [facility] [id number] [place] [address]- 2320 Sep, 2014 [facility] [place] [facility] [id number] [place] [address]- 8015 Sep, 2014 [facility] [place] [facility] [address] [facility] [id number] [place] [address]- 4960 Sep, 2014 [facility] [place] [facility] [id number] [place] [address]- 7833 Sep, 2014 [facility] [place] [facility] [id number], [place] [address]- 8554 Sep, 2014 [facility] [place] [facility] [address] [facility] [id number], [place] [address]- 2548 Sep, 2014 [facility] [place] [facility] [address] [facility] [id number] [place] [address]- 6749 Sep, 2014 [facility] [place] [facility] [address] [facility] [id number], [place] [address]- 5988 Sep, 2014 [facility] [place] [facility] [address] [facility] [id number], [place] [address]- 2784 Sep, 2014 [facility] [place] [facility] [id number], [place] [address]- 8131 Sep, [facility] [address] [id number] [place] [address]- 8668 Aug, [facility] [place] [facility] [address] [id number] [place] [address]- 5009 Aug, [facility] [place] [facility] [address] [id number] [place] [address]- 7556 Aug, [facility] [place] [facility] [address] [id number] [place] [address]- 6386 Aug, [facility] [place] [facility] [address] [id number] [place] [address]- 7154 Aug, [facility] [place] [facility] [address] [id number] [place] [address]- 4036 Aug, [facility] [address] [id number] [place] [address]- 4912 Aug, [facility] [place] [facility] [address] [id number] [place] [address]- 8317 Aug, [facility] [place] [facility] [address] [id number] [place] [address]- 3136 Aug, [facility] [place] [facility] [address] [id number] [place] [address]- 4471 Aug, [facility] [place] [facility] [address] [id number] [place] [address]- 6994 Aug, [facility] [place] [facility] [address] [id number], [place] [address]- 1973 Aug, [facility] [place] [facility] [address] [id number] [place] [address]- 4980 Aug, [facility] [place] [facility] [address] [id number] [place] [address]- 6992 Jul, [facility] [place] [facility] [address] [id number] [place] [address]- 8474 Jul, [facility] [place] [facility] [address] [id number] [place] [address]- 2297 Jul, [facility] [place] [facility] [address] [id number] [place] [address]- 3336 Jul, [facility] [place] [facility] [address] [id number] [place] [address]- 7096 Jul, [facility] [place] [facility] [address] [id number] [place] [address]- 5765 Jul, [facility] [place] [facility] [address] [id number] [place] [address]- 7660 Jul, [facility] [place] [facility] [address] [id number] [place] [address]- 0790 Jul, [facility] [place] [facility] [address] [id number] [place] [address]- 4575 Jun, [facility] [place] [facility] [address] [id number] [place] [address]- 8809 Jun, [facility] [place] [facility] [address] [id number] [place] [address]- 3451 Jun, [facility] [place] [facility] [address] [id number] [place] [address]- 1167 Jun, [facility] [place] [facility] [address] [id number] [place] [address]- 8722 Jun, [facility] [place] [facility] [address] [id number] [place] [address]- 5154 Jun, [facility] [place] [facility] [address] [id number] [place] [address]- 0152 Jun, [facility] [place] [facility] [address] [id number] [place] [address]- 6399 Jun, [facility] [place] [facility] [address] [id number] [place] [address]- 7129 Jun, [facility] [place] [facility] [address] [id number] [place] [address]- 1382 Jun, [facility] [place] [facility] [address] [id number] [place] [address]- 2827 Jun, [facility] [place] [facility] [address] [id number] [place] [address]- 5463 14 Jun, 2014 [facility] [place] [facility] [address] [id number] [place] [address]- 6854 Jun, [facility] [place] [facility] [address] [id number] [place] [address]- 3645 Jun, [facility] [place] [facility] [address] [id number] [place] [address]- 6390 Jun, [facility] [place] [facility] [address] [id number] [place] [address]- 7433 Jun, [facility] [place] [facility] [address] [id number] [place] [address]- 6814 May, [facility] [place] [facility] [address] [id number], [place] [address]- 3820 May, [facility] [place] [facility] [address] [id number], [place] [address]- 3304 May, [facility] [place] [facility] [address] [id number], [place] [address]- 3923 May, [facility] [place] [facility] [address] [id number], [place] [address]- 6356 May, [facility] [place] [facility] [address] [id number], [place] [address]- 4604 May, [facility] [place] [facility] [address] [id number], [place] [address]- 5529 May, [facility] [place] [facility] [address] [id number], [place] [address]- 0305 May, [facility] [place] [facility] [address] [id number], [place] [address]- 6089 May, [facility] [place] [facility] [address] [id number] [place] [address]- 6310 Apr, [facility] [place] [facility] [address] [id number] [place] [address]- 1665 Apr, [facility] [place] [facility] [address] [id number] [place] [address]- 94[address] Apr, [facility] [place] [facility] [address] [id number] [place] [address] Apr, [facility] [place] [facility] [address] [id number] [place] [address] Mar, [facility] [place] [facility] [address] [id number] [place] [address] Mar, [facility] [place] [facility] [address] [id number] [place] [address] Mar, [facility] [place] [facility] [address] [id number] [place] [address] Mar, [facility] [place] [facility] [address] [id number] [place] [address] Feb, [facility] [place] [facility] [address] [id number] [place] [address] Feb, [facility] [place] [facility] [address] [id number] [place] [address] Jan, [facility] [place] [facility] [address] [id number] [place] [address] Jan, [facility] [place] [facility] [address] [id number] [place] [address] Jan, [facility] [place] [facility] [address] [id number] [place] [address] Jan, [facility] [place] [facility] [address] [id number] [place] [address] Jan, [facility] [place] [facility] [address] [id number] [place] [address] Jan, [facility] [place] [facility] [address] [id number] [place] [address] Jan, [facility] [place] [facility] [address] [id number] [place] [address] Jan, [facility] [place] [facility] [address] [id number] [place] [address] Jan, [facility] [place] [facility] [address] [id number] [place] [address] Jan, [facility] [place] [facility] [address] [id number] [place] [address] Jan, [facility] [place] [facility] [address] [id number] [place] [address] Jan, [facility] [place] [facility] [address] [id number] [place] [address] Jan, [facility] [place] [facility] [address] [id number] [place] [address] December, [facility] [place] [facility] [address] [id number] [place] [address] December, [facility] [place] [facility] [address] [id number] [place] [address] December, [facility] [place] [facility] [address] [id number] [place] [address] December, [facility] [place] [facility] [address] [id number] [place] [address] December, [facility] [place] [facility] [address] [id number] [place] [address] Nov, [facility] [place] [facility] [address] [id number] [place] [address] Nov, [facility] [place] [facility] [address] [id number] [place] [address] Nov, [facility] [place] [facility] [address] [id number] [place] [address] Nov, [facility] [place] [facility] [address] [id number] [place] [address] Nov, [facility] [place] [facility] [address] [id number] [place] [address] Nov, [facility] [place] [facility] [address] [id number] [place] [address] Nov, [facility] [place] [facility] [address] [id number] [place] [address] Nov, [facility] [place] [facility] [address] [id number] [place] [address] Nov, [facility] [place] [facility] [address] [id number] [place] [address] Nov, [facility] [place] [facility] [address] [id number] [place] [address] Jun, [facility] [place] [facility] [address] [id number] [place] [address] Jun, [facility] [place] [facility] [address] [id number] [place] [address] May, [facility] [place] [facility] [address] [id number] [place] [address] May, [facility] [place] [facility] [address] [id number], [place] [address] May, [facility] [place] [facility] [address] [id number], [place] [address] May, [facility] [place] [facility] [address] [id number] [place] [address] May, [facility] [place] [facility] [address] [id number] [place] [address] May, [facility] [place] [facility] [address] [id number] [place] [address] May, [facility] [place] [facility] [address] [id number] [place] [address] May, [facility] [address] [id number] [place] [address] May, [facility] [address] [id number] [place] [address]76 25 Apr, 2011 [facility] [address] [id number] [place] [address] 1186 25 Apr, 2011 [facility] [address] [id number] [place] [address]66 25 Apr, 2011 [facility] [address] [id number] [place] [address] 21 Apr, 2012 [facility] [address] [id number] [place] [address] 9032 20 Apr, 2012 [facility] [address] [id number] [place] [address]609 19 Apr, 2012 [facility] [place] [facility] [address] [id number] [place] [address] 05 Apr, 2012 [facility] [place] [facility] [address] [id number] [place] [address] 8[address] 04 Apr, 2012 [facility] [place] [facility] [address] [id number] [place] [address] 28 Mar, 2012 [facility] [place] [facility] [address] [id number] [place] [address] 27 Mar, 2012 [facility] [address] [id number] [place] [address] 2548 16 Mar, 2012 [facility] [address] [id number] [place] [address]136 14 Mar, 2012 [facility] [address] [id number] [place] [address]284 Mar, [facility] [address] [place] [id number] Mar [facility] [place] [facility] [address] [id number] [place] [address] Mar, [facility] [place] [facility] [address] [id number] [place] [address] Feb, [facility] [place] [facility] [address] [id number] [place] [address] 2546 Feb, [facility] [place] [facility] [address] [id number] [place] [address] 2546 Feb, [facility] [place] [facility] [address] [id number] [place] [address] 2547 Feb, [facility] [place] [facility] [address] [id number] [place] [address] 7026 Feb, [facility] [place] [facility] [address] [id number] [place] [address] 279[address] Feb, [facility] [place] [facility] [address] [id number] [place] [address] 2868 Jan, [facility] [place] [facility] [address] [id number] [place] [address]447 Jan, [facility] [place] [facility] [address] [id number] [place] [address] Jan, [facility] [place] [facility] [address] [id number] [place] [address] 1588 Jan, [facility] [place] [facility] [address] [id number] [place] [address] 0791 Jan, [facility] [place] [facility] [address] [id number] [place] [address] 2543 Jan, [facility] [place] [facility] [address] [id number] [place] [address] 7229 Jan, [facility] [place] [facility] [address] [id number] [place] [address] December, [facility] [place] [facility] [address] [id number] [place] [address] 6627 December, [facility] [address] [id number] [place] [address] 70[address] December, [facility] [place] [facility] [address] [id number] [place] [address] 5491 Nov, [facility] [place] [facility] [address] [id number] [place] [address] 5342 Nov, [facility] [place] [facility] [address] [id number] [place] [address] 8357 Nov, [facility] [place] [facility] [address] [id number] [place] [address] 0064 Nov, [facility] [place] [facility] [address] [id number] [place] [address] 8562 Nov, [facility] [place] [facility] [address] [id number] [place] [address] 3579 Nov, [facility] [place] [facility] [address] [id number] [place] [address] 5585 Nov, [facility] [place] [facility] [address] [id number] [place] [address] 2034 Nov, [facility] [place] [facility] [address] [id number] [place] [address] 5899 Oct, [facility] [place] [facility] [address] [id number], [place] [address] Oct, [facility] [place] [facility] [address] [id number], [place] [address] Oct, [facility] [place] [facility] [address] [id number] [place] [address] 3848 Oct, [facility] [place] [facility] [address] [id number] [place] [address] 1496 Sep, [facility] [place] [facility] [address] [facility] [id number] [place] [address] 2546 Sep, [facility] [place] [facility] [address] [id number] [place] [address] 2581 Sep, [facility] [address] [id number] [place] [address] 7844 Aug, [facility] [place] [facility] [address] [id number] [place] [address] 5224 Aug, [facility] [address] [id number] [place] [address]- 9084 Aug, [facility] [address] [id number] [place] [address]- 7746 Aug, [facility] [id number] [place] [address], [place] [address]- [address]808 15 Jul, 2011 [facility] [address] [id number] [place] [address] 8995 15 Jul, 2011 [facility] [address] [id number] [place] [address]- 0899 15 Jul, 2011 [facility] [address] [id number] [place] [address] 6431 30 Jun, 2011 [facility] [address] [id number] [place] [address]- 2526 22 Jun, 2011 [facility] [address] [facility] [id number] [place] [address]- 6952 15 Jun, 2011 [facility] [place] [facility] [address] [id number] [place] [address]- 6261 14 Jun, 2011 [facility] [place] [facility] [address] [id number] [place] [address]- 9768 14 Jun, 2011 [facility] [place] [facility] [address] [id number] [place] [address]- 9403 14 Jun, 2011 [facility] [place] [facility] [address] [id number] [place] [address]- 3909 31 May, 2011 [facility] [place] [facility] [address] [id number] [place] [address]- 7952 May, [facility] [address] [facility] [id number] [place] [address] 3346 May, [facility] [address] [facility] [id number], [place] [address]- [address]46 Apr, [facility] [address] [facility] [id number], [place] [address]- [address]46 Mar, [facility] [address] [facility] [id number], [place] [address] Aug, IMMUNIZATIONS No Known Immunizations SOCIAL HISTORY Never Assessed REASON FOR VISIT Refill request PLAN OF CARE VITAL SIGNS MEDICATIONS Unknown Medications RESULTS No Results PROCEDURES No Known procedures INSTRUCTIONS MEDICATIONS ADMINISTERED No Known Medications MEDICAL (GENERAL) HISTORY Type Description Date Medical History type II diabetes-dx in 1995 Medical History stroke-12/2011-[facility] Medical History cardiovascular disorder-CAD Medical History hyperlipidemia Medical History hypertension Medical History Diabetes with renal manifestations, type II or unspecified type, uncontrolled Medical History 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
--- OUTSIDE RECORDS SUMMARY | 2018-09-22 15:11 | XMS REPORT ---
Author Author ALBIN RENAE Organization [facility] Address [address] [place] [address] Care Team Providers Care Maintenance Parts Technician Name Role Phone ALBIN RENAE Unavailable PROBLEMS Type Condition ICD9-CM Code PAR66-TL Code Onset Dates Condition Status SNOMED Code Problem Type 2 diabetes mellitus with other skin ulcer E11.622 Active 23641015 Problem Foot swelling M79.89 Active 922167316 Problem Stress incontinence in female N39.3 Active 80690502 Problem Neuropathy G62.9 Active 857214166 Problem Pulmonary HTN I27.2 Active 48479368 Problem Ulcer of right lower leg, with unspecified severity L97.919 Active 148757426 Problem Cough R05 Active 480531454 Problem Atrial enlargement, left I51.7 Active [id number] Problem Left ventricular enlargement I51.7 Active 067215152 Problem CAD (coronary artery disease) I25.10 Active 38633053 Problem Anxiety F41.9 Active 78093229 Problem 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 Active 24253052 Problem Dyspepsia R10.13 Active 200050065 Problem Essential hypertension I10 Active 53915028 Problem Allergic rhinitis J30.9 Active 99796653 Problem [facility] 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 Active 828385342 Problem Skin infection L08.9 Active 894131293 Problem Chronic pain G89.29 Active 60652398 Problem Non-healing skin lesion L98.9 Active 52356606 ALLERGIES No Information ENCOUNTERS Encounter Location Date Diagnosis [facility] [id number], [place] [address] May, [facility] [id number], [place] [address] Apr, [facility] [id number], [place] [address] 1497 Apr, Essential hypertension I10 and 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 [facility] [address], [place] [address] Mar, [facility] [id number] [place] [address] 55675- 7390 Feb, Onychomycosis B35.1 ; Neuropathy G62.9 and 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 [facility] [address], [place] [address] 59[address] Feb, [facility] [id number] [place] [address] 88199- 6469 December, [facility] [id number] [place] [address] 55005- 9233 December, Herpes zoster without complication B02.9 ; Onychia of toe of left foot L03.032 ; Ingrowing toenail with infection L60.0 and 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 [address] [place] [address], [place] [address] December, [facility] [address], [place] [address] Nov, [facility] [address], [place] [address] 0638 Oct, 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 [facility] [address], [place] [address] Oct, Essential hypertension I10 and 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 [facility] [address], [place] [address] 4872 Sep, 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 ; Type 2 diabetes mellitus with other skin ulcer E11.622 ; Chronic pain G89.29 ; Anxiety F41.9 ; Essential hypertension I10 ; Hypoxia R09.02 ; Atrial enlargement, left I51.7 and Left ventricular enlargement I51.7 [facility] [address], [place] [address] 5294 Sep, [facility] [id number] [place] [address] 88675- 7138 Aug, [facility] [id number] [place] [address] 72484- 5443 Jul, [facility] [id number] [place] [address] 23568- 5667 Jul, [facility] [id number] [place] [address] 05506- 3193 Jul, CAD (coronary artery disease) I25.10 ; Essential hypertension I10 ; Pulmonary HTN I27.2 ; Atrial enlargement, left I51.7 and Left ventricular enlargement I51.7 [place] [id number] [place] [address] 57185- 0267 Jun, [facility] [id number] [place] [address] 82607- 8146 Jun, [facility] [id number] [place] [address] 71340- 7700 Jun, [facility] [address], [place] [address]- 3267 Jun, [facility] [id number] [place] [address] 75540- 0427 Jun, 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 ; Type 2 diabetes mellitus with other skin ulcer E11.622 ; Chronic pain G89.29 ; Anxiety F41.9 ; Essential hypertension I10 ; Ulcer of right lower leg, with unspecified severity L97.919 ; Pulmonary HTN I27.2 ; Hypoxia R09.02 ; Atrial enlargement, left I51.7 and Left ventricular enlargement I51.7 [facility] [id number] [place] [address] 42120- 4696 May, [place] [id number] [place] [address] 75199- 1871 08 Apr, 2016 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 ; Type 2 diabetes mellitus with other skin ulcer E11.622 ; Chronic pain G89.29 ; Anxiety F41.9 ; Cough R05 ; Essential hypertension I10 and Ulcer of right lower leg, with unspecified severity L97.[address] [address]- 4106 11 Mar, 2016 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 ; Chronic pain G89.29 ; Anxiety F41.9 ; Type 2 diabetes mellitus with other skin ulcer E11.622 ; Cough R05 ; Essential hypertension I10 and Ulcer of right lower leg, with unspecified severity L97.919 [place] [id number] [place] [address] 20462- 5534 Feb, [address] 46570- 1873 Feb, 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 ; Chronic pain G89.29 ; Anxiety F41.9 ; Type 2 diabetes mellitus with other skin ulcer E11.622 ; Cough R05 and Essential hypertension I10 [id number] [place] [address] 78252- 8419 Jan, Chronic pain G89.29 ; Anxiety F41.9 and Foot swelling M79.89 [place] [id number] [place] [address] 33787- 8455 December, Chronic pain G89.29 ; Anxiety F41.9 and Stress incontinence in female N39.[address] 80940- 5711 December, [place] [id number] [place] [address] 71756- 6251 Nov, [address] 28501- 6767 Nov, [facility] [address], [place] [address]- 4423 Nov, [facility] [id number] [place] [address] 36570- 7346 Nov, Chronic pain G89.29 ; Anxiety F41.9 ; Non-healing skin lesion L98.9 and Type 2 diabetes mellitus with other skin ulcer E11.622 [facility] [id number] [place] [address] 73484- 5411 Nov, 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 [facility] [address] [place] [address] 46822- 3292 Nov, [facility] [id number] [place] [address] 29638- 1574 Nov, [facility] [id number] [place] [address] 84567- 0370 Nov, [facility] [id number] [place] [address] 83444- 4139 Nov, [facility] [id number] [place] [address] 29113- 5228 Nov, 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 [facility] [address] [place] [address] 12330- 7597 Oct, 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 ; Essential hypertension I10 ; Chronic pain G89.29 ; Anxiety F41.9 and Skin infection L08.9 [facility] [address], [place] [address]- 0866 Oct, [facility] [id number] [place] [address] 38633- 5332 Sep, [facility] [address], [place] [address]- 7502 Sep, 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 ; Chronic pain G89.29 ; Anxiety F41.9 and Allergic rhinitis J30.9 [address] [address] [address]27- 9461 Aug, 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 ; Chronic pain G89.29 ; Anxiety F41.9 and Allergic rhinitis J30.[address] 12842- 9492 Jul, [address] [address] 03074- 9184 Jul, 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 ; Dyspepsia R10.13 ; Essential hypertension I10 ; [facility] 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 ; CAD (coronary artery disease) I25.10 ; Chronic pain G89.29 ; Anxiety F41.9 ; Dysuria R30.0 and Pain of left lower leg M79.662 [address] [address] 24197- 1793 Jul, [place] [address] 87383- 1258 Jun, 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 and [facility] 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 [address] [address] 67795- 7882 Jun, [address] [address] 42771- 2846 Jun, Neuropathy G62.9 ; Arthritis M19.90 ; Leg cramps R25.2 and Anxiety F41.9 [address] [address] 78583- 1214 May, [place] [address] 95322- 5043 May, [place] [address] 64029- 7564 May, 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 [facility] [address], [place] [address]- 8272 May, [facility] [address], [place] [address]- 1901 29 Apr, 2015 [facility] [address], [place] [address]- 4965 Apr, [facility] [id number] [place] [address] 71731- 3472 17 Apr, 2015 [facility] [id number] [place] [address] 70630- 8371 14 Apr, 2015 [facility] [id number] [place] [address] 81747- 0460 Apr, [facility] [id number] [place] [address] 11836- 5750 Apr, [facility] [address], [place] [address]- 8644 Apr, Diabetes with renal manifestations, type II or unspecified type, uncontrolled 250.42 ; Coronary atherosclerosis of unspecified type of vessel, little traverse or graft 414.00 ; Polyneuropathy in diabetes 357.2 ; Hypertension 401.9 ; Anxiety 300.00 ; GERD (gastroesophageal reflux disease) 530.81 and Type 2 diabetes mellitus with pressure callus 250.80 [facility] [address], [place] [address]- 4399 Mar, [facility] [address], [place] [address]- 4963 Mar, [facility] [id number] [place] [address] 09000- 7944 Mar, [facility] [address], [place] [address]- 0470 Mar, [facility] [address], [place] [address]- 2054 Mar, Diabetes with renal manifestations, type II or unspecified type, uncontrolled 250.42 ; Coronary atherosclerosis of unspecified type of vessel, little traverse or graft 414.00 ; Polyneuropathy in diabetes 357.2 ; Hypertension 401.9 and Anxiety 300.00 [facility] [address], [place] [address]- 0432 Mar, Routine gynecological examination V72.31 ; Breast cancer screening V76.10 ; Recurrent urinary tract infection 599.0 ; Mastodynia 611.71 and Tobacco abuse 305.1 [facility] [id number] [place] [address] 65688- 7122 Feb, [facility] [id number] [place] [address] 42086- 1584 Jan, [facility] [id number] [place] [address] 44175- 7188 Jan, [facility] [id number] [place] [address] 78979- 4789 Jan, [facility] [id number] [place] [address] 00846- 2672 Jan, [facility] [id number] [place] [address] 49164- 0887 December, [facility] [id number] [place] [address] 38088- 1111 December, [facility] [id number] [place] [address] 86817- 4424 Nov, [facility] [id number] [place] [address] 94423- 6485 Nov, [facility] [id number] [place] [address] 14902- 1847 Nov, [facility] [id number] [place] [address] 34920701- 9571 Oct, [facility] [id number] [place] [address] 98010- 6438 19 Oct, 2014 [facility] [place] [facility] [address] [id number] [place] [address]- 5259 16 Oct, 2014 [facility] [place] [facility] [address] [id number] [place] [address]- 3658 16 Oct, 2014 [facility] [place] [facility] [address] [id number] [place] [address]- 5981 16 Oct, 2014 [facility] [place] [facility] [address] [id number] [place] [address]- 6730 16 Oct, 2014 [facility] [place] [facility] [address] [id number] [place] [address]- 5945 16 Oct, 2014 [facility] [place] [facility] [address] [id number] [place] [address]- 4176 16 Oct, 2014 [facility] [place] [facility] [address] [id number] [place] [address]- 5950 16 Oct, 2014 [facility] [place] [facility] [address] [id number] [place] [address]- 6863 16 Oct, 2014 [facility] [place] [facility] [address] [id number] [place] [address]- 3874 16 Oct, 2014 [facility] [place] [facility] [address] [id number] [place] [address]- 6460 16 Oct, 2014 [facility] [place] [facility] [address] [id number] [place] [address]- 8100 04 Oct, 2014 [facility] [place] [facility] [address] [id number], [place] [address]- 4105 04 Oct, 2014 [facility] [place] [facility] [address] [id number] [place] [address]- 8987 03 Oct, 2014 [facility] [place] [facility] [address] [id number] [place] [address]- 5020 03 Oct, 2014 [facility] [place] [facility] [address] [id number] [place] [address]- 4123 02 Oct, 2014 [facility] [place] [facility] [address] [facility] [id number] [place] [address]- 5589 Oct, [facility] [place] [facility] [address] [id number] [place] [address]- 2955 Sep, 2014 [facility] [place] [facility] [address] [facility] [id number] [place] [address]- 2546 Sep, 2014 [facility] [place] [facility] [address] [facility] [id number] [place] [address]- 1015 Sep, 2014 [facility] [place] [facility] [address] [facility] [id number] [place] [address]- 2341 Sep, 2014 [facility] [place] [facility] [address] [facility] [id number] [place] [address]- 7234 Sep, 2014 [facility] [place] [facility] [id number] [address]- 0763 Sep, 2014 [facility] [place] [facility] [id number] [address]- 1386 Sep, 2014 [facility] [place] [facility] [address] [facility] [id number] [place] [address]- 6572 Sep, 2014 [facility] [place] [facility] [id number] [address]- 2811 Sep, 2014 [facility] [place] [facility] [id number], [place] [address]- 6069 Sep, 2014 [facility] [place] [facility] [address] [facility] [id number], [place] [address]- 2547 Sep, 2014 [facility] [place] [facility] [address] [facility] [id number] [place] [address]- 7712 Sep, 2014 [facility] [place] [facility] [address] [facility] [id number], [place] [address]- 7890 Sep, 2014 [facility] [place] [facility] [address] [facility] [id number], [place] [address]- 3502 Sep, 2014 [facility] [place] [facility] [id number], [place] [address]- 7780 Sep, [facility] [address] [id number] [place] [address]- 8618 Aug, [facility] [place] [facility] [address] [id number] [place] [address]- 9155 Aug, [facility] [place] [facility] [address] [id number] [place] [address]- 9459 Aug, [facility] [place] [facility] [address] [id number] [place] [address]- 2349 Aug, [facility] [place] [facility] [address] [id number] [place] [address]- 4255 Aug, [facility] [place] [facility] [address] [id number] [place] [address]- 6248 Aug, [facility] [address] [id number] [place] [address]- 9268 Aug, [facility] [place] [facility] [address] [id number] [place] [address]- 7578 Aug, [facility] [place] [facility] [address] [id number] [place] [address]- 5869 Aug, [facility] [place] [facility] [address] [id number] [place] [address]- 9100 Aug, [facility] [place] [facility] [address] [id number] [place] [address]- 8785 Aug, [facility] [place] [facility] [address] [id number], [place] [address]- 1075 Aug, [facility] [place] [facility] [address] [id number] [place] [address]- 1076 Aug, [facility] [place] [facility] [address] [id number] [place] [address]- 4398 Jul, [facility] [place] [facility] [address] [id number] [place] [address]- 4162 Jul, [facility] [place] [facility] [address] [id number] [place] [address]- 8269 Jul, [facility] [place] [facility] [address] [id number] [place] [address]- 7396 Jul, [facility] [place] [facility] [address] [id number] [place] [address]- 0976 Jul, [facility] [place] [facility] [address] [id number] [place] [address]- 3755 Jul, [facility] [place] [facility] [address] [id number] [place] [address]- 3875 Jul, [facility] [place] [facility] [address] [id number] [place] [address]- 0901 Jul, [facility] [place] [facility] [address] [id number] [place] [address]- 4823 Jun, [facility] [place] [facility] [address] [id number] [place] [address]- 2759 Jun, [facility] [place] [facility] [address] [id number] [place] [address]- 7870 Jun, [facility] [place] [facility] [address] [id number] [place] [address]- 0710 Jun, [facility] [place] [facility] [address] [id number] [place] [address]- 9476 Jun, [facility] [place] [facility] [address] [id number] [place] [address]- 5997 Jun, [facility] [place] [facility] [address] [id number] [place] [address]- 0957 Jun, [facility] [place] [facility] [address] [id number] [place] [address]- 8841 Jun, [facility] [place] [facility] [address] [id number] [place] [address]- 7769 Jun, [facility] [place] [facility] [address] [id number] [place] [address]- 8078 Jun, [facility] [place] [facility] [address] [id number] [place] [address]- 8440 Jun, [facility] [place] [facility] [address] [id number] [place] [address]- 8568 14 Jun, 2014 [facility] [place] [facility] [address] [id number] [place] [address]- 2424 Jun, [facility] [place] [facility] [address] [id number] [place] [address]- 6843 Jun, [facility] [place] [facility] [address] [id number] [place] [address]- 0503 Jun, [facility] [place] [facility] [address] [id number] [place] [address]- 1895 Jun, [facility] [place] [facility] [address] [id number] [place] [address]- 7549 May, [facility] [place] [facility] [address] [id number], [place] [address]- 1934 May, [facility] [place] [facility] [address] [id number], [place] [address]- 3502 May, [facility] [place] [facility] [address] [id number], [place] [address]- 2281 May, [facility] [place] [facility] [address] [id number], [place] [address]- 8634 May, [facility] [place] [facility] [address] [id number], [place] [address]- 5378 May, [facility] [place] [facility] [address] [id number], [place] [address]- 7005 May, [facility] [place] [facility] [address] [id number], [place] [address]- 9361 May, [facility] [place] [facility] [address] [id number], [place] [address]- 4981 May, [facility] [place] [facility] [address] [id number] [place] [address]- 7619 Apr, [facility] [place] [facility] [address] [id number] [place] [address]- 6061 Apr, [facility] [place] [facility] [address] [id number] [place] [address]- 3593 Apr, [facility] [place] [facility] [address] [id number] [place] [address]- 5386 Apr, [facility] [place] [facility] [address] [id number] [place] [address] Mar, [facility] [place] [facility] [address] [id number] [place] [address] Mar, [facility] [place] [facility] [address] [id number] [place] [address] Mar, [facility] [place] [facility] [address] [id number] [place] [address] Mar, [facility] [place] [facility] [address] [id number] [place] [address] Feb, [facility] [place] [facility] [address] [id number] [place] [address] Feb, [facility] [place] [facility] [address] [id number] [place] [address] Jan, [facility] [place] [facility] [address] [id number] [place] [address]- [address] Jan, [facility] [place] [facility] [address] [id number] [place] [address] Jan, [facility] [place] [facility] [address] [id number] [place] [address] Jan, [facility] [place] [facility] [address] [id number] [place] [address]- [address] Jan, [facility] [place] [facility] [address] [id number] [place] [address]- [address] Jan, [facility] [place] [facility] [address] [id number] [place] [address]- [address] Jan, [facility] [place] [facility] [address] [id number] [place] [address]- [address] Jan, [facility] [place] [facility] [address] [id number] [place] [address]- [address] Jan, [facility] [place] [facility] [address] [id number] [place] [address]- 7984 Jan, [facility] [place] [facility] [address] [id number] [place] [address]- [address] Jan, [facility] [place] [facility] [address] [id number] [place] [address]- [address] Jan, [facility] [place] [facility] [address] [id number] [place] [address]- [address] Jan, [facility] [place] [facility] [address] [id number] [place] [address]- [address] December, [facility] [place] [facility] [address] [id number] [place] [address]- [address] December, [facility] [place] [facility] [address] [id number] [place] [address]- [address] December, [facility] [place] [facility] [address] [id number] [place] [address]- [address] December, [facility] [place] [facility] [address] [id number] [place] [address]- [address] December, [facility] [place] [facility] [address] [id number] [place] [address]- [address] Nov, [facility] [place] [facility] [address] [id number] [place] [address]- [address] Nov, [facility] [place] [facility] [address] [id number] [place] [address]- [address] Nov, [facility] [place] [facility] [address] [id number] [place] [address]- [address] Nov, [facility] [place] [facility] [address] [id number] [place] [address]- [address] Nov, [facility] [place] [facility] [address] [id number] [place] [address]- [address] Nov, [facility] [place] [facility] [address] [id number] [place] [address]- [address] Nov, [facility] [place] [facility] [address] [id number] [place] [address] Nov, [facility] [place] [facility] [address] [id number] [place] [address]- [address] Nov, [facility] [place] [facility] [address] [id number] [place] [address]- [address] Nov, [facility] [place] [facility] [address] [id number] [place] [address]- [address] Jun, [facility] [place] [facility] [address] [id number] [place] [address]- [address] Jun, [facility] [place] [facility] [address] [id number] [place] [address]- [address] May, [facility] [place] [facility] [address] [id number] [place] [address]- [address] May, [facility] [place] [facility] [address] [id number], [place] [address]- [address] May, [facility] [place] [facility] [address] [id number], [place] [address] May, [facility] [place] [facility] [address] [id number] [place] [address]- [address] May, [facility] [place] [facility] [address] [id number] [place] [address]- [address] May, [facility] [place] [facility] [address] [id number] [place] [address]- 79[address] May, [facility] [place] [facility] [address] [id number] [place] [address] May, [facility] [address] [id number] [place] [address] May, [facility] [address] [id number] [place] [address] 25 Apr, 2011 [facility] [address] [id number] [place] [address] 25 Apr, 2011 [facility] [address] [id number] [place] [address] 25 Apr, 2011 [facility] [address] [id number] [place] [address] 21 Apr, 2012 [facility] [address] [id number] [place] [address] 20 Apr, 2012 [facility] [address] [id number] [place] [address] 19 Apr, 2012 [facility] [address] [id number] [place] [address] 05 Apr, 2012 [facility] [address] [id number] [place] [address] 04 Apr, 2012 [facility] [address] [id number] [place] [address] 28 Mar, 2012 [facility] [address] [id number] [place] [address] 27 Mar, 2012 [facility] [address] [id number] [place] [address] 16 Mar, 2012 [facility] [address] [id number] [place] [address] 14 Mar, 2012 [facility] [address] [id number] [place] [address] Mar, [facility] [address] [place] [id number] Mar [facility] [place] [facility] [address] [id number] [place] [address] Mar, [facility] [place] [facility] [address] [id number] [place] [address] Feb, [facility] [place] [facility] [address] [id number] [place] [address] Feb, [facility] [place] [facility] [address] [id number] [place] [address] 2546 Feb, [facility] [place] [facility] [address] [id number] [place] [address] Feb, [facility] [place] [facility] [address] [id number] [place] [address] Feb, [facility] [place] [facility] [address] [id number] [place] [address] Feb, [facility] [place] [facility] [address] [id number] [place] [address] 113[address] Jan, [facility] [place] [facility] [address] [id number] [place] [address] Jan, [facility] [place] [facility] [address] [id number] [place] [address] Jan, [facility] [place] [facility] [address] [id number] [place] [address] 49[address] Jan, [facility] [place] [facility] [address] [id number] [place] [address] Jan, [facility] [place] [facility] [address] [id number] [place] [address] Jan, [facility] [place] [facility] [address] [id number] [place] [address] Jan, [facility] [place] [facility] [address] [id number] [place] [address] December, [facility] [place] [facility] [address] [id number] [place] [address] December, [facility] [address] [id number] [place] [address] December, [facility] [place] [facility] [address] [id number] [place] [address] Nov, [facility] [place] [facility] [address] [id number] [place] [address] 45[address] Nov, [facility] [place] [facility] [address] [id number] [place] [address] Nov, [facility] [place] [facility] [address] [id number] [place] [address] Nov, [facility] [place] [facility] [address] [id number] [place] [address] Nov, [facility] [place] [facility] [address] [id number] [place] [address] Nov, [facility] [place] [facility] [address] [id number] [place] [address] Nov, [facility] [place] [facility] [address] [id number] [place] [address] Nov, [facility] [place] [facility] [address] [id number] [place] [address] Oct, [facility] [place] [facility] [address] [id number], [place] [address] Oct, [facility] [place] [facility] [address] [id number], [place] [address] Oct, [facility] [place] [facility] [address] [id number] [place] [address] Oct, [facility] [place] [facility] [address] [id number] [place] [address] Sep, [facility] [place] [facility] [address] [facility] [id number] [place] [address]- [address] Sep, [facility] [place] [facility] [address] [id number] [place] [address] Sep, [facility] [address] [id number] [place] [address] Aug, [facility] [place] [facility] [address] [id number] [place] [address]- 45[address] Aug, [facility] [address] [id number] [place] [address] Aug, [facility] [address] [id number] [place] [address] 160[address] Aug, [facility] [address] [id number] [place] [address], [place] [address]- [address] 15 Jul, 2011 [facility] [address] [id number] [place] [address]- 3826 15 Jul, 2011 [facility] [address] [id number] [place] [address]- 2434 15 Jul, 2011 [facility] [address] [id number] [place] [address] 1161 30 Jun, 2011 [facility] [address] [id number] [place] [address]- 6718 22 Jun, 2011 [facility] [address] [facility] [id number] [place] [address] 9295 15 Jun, 2011 [facility] [place] [facility] [address] [id number] [place] [address] 5[address] 14 Jun, 2011 [facility] [place] [facility] [address] [id number] [place] [address]- 0901 14 Jun, 2011 [facility] [place] [facility] [address] [id number] [place] [address]- 8888 14 Jun, 2011 [facility] [place] [facility] [address] [id number] [place] [address]- 2064 31 May, 2011 [facility] [place] [facility] [address] [id number] [place] [address] May, [facility] [address] [facility] [id number] [place] [address] May, [facility] [address] [facility] [id number], [place] [address] Apr, [facility] [address] [facility] [id number], [place] [address] Mar, [facility] [address] [facility] [id number], [place] [address] Aug, IMMUNIZATIONS No Known Immunizations SOCIAL HISTORY Never Assessed REASON FOR VISIT Refill request PLAN OF CARE VITAL SIGNS MEDICATIONS Unknown Medications RESULTS No Results PROCEDURES No Known procedures INSTRUCTIONS MEDICATIONS ADMINISTERED No Known Medications MEDICAL (GENERAL) HISTORY Type Description Date Medical History type II diabetes-dx in 1995 Medical History stroke-12/2011-[facility] Medical History cardiovascular disorder-CAD Medical History hyperlipidemia Medical History hypertension Medical History Diabetes with renal manifestations, type II or unspecified type, uncontrolled Medical History 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
--- OUTSIDE RECORDS SUMMARY | 2018-09-22 15:12 | XMS REPORT ---
Author Author ALBIN RENAE Organization 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 Name Role Phone ALBIN RENEA Unavailable PROBLEMS Type Condition ICD9-CM Code LYC68-WM Code Onset Dates Condition Status SNOMED Code Problem Type 2 diabetes mellitus with other skin ulcer E11.622 Active 29926357 Problem Foot swelling M79.89 Active 491781715 Problem Stress incontinence in female N39.3 Active 22369846 Problem Neuropathy G62.9 Active 506419217 Problem Pulmonary HTN I27.2 Active 83560659 Problem Ulcer of right lower leg, with unspecified severity L97.919 Active 514884243 Problem Cough R05 Active 319721386 Problem Atrial enlargement, left I51.7 Active [id number] Problem Left ventricular enlargement I51.7 Active 618898664 Problem CAD (coronary artery disease) I25.10 Active 07721282 Problem Anxiety F41.9 Active 14016641 Problem 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 Active 28941302 Problem Dyspepsia R10.13 Active 939973818 Problem Essential hypertension I10 Active 56376628 Problem Allergic rhinitis J30.9 Active 96955491 Problem long-term 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 Active 150117267 Problem Skin infection L08.9 Active 947276428 Problem Chronic pain G89.29 Active 35834324 Problem Non-healing skin lesion L98.9 Active 36628959 ALLERGIES No Information ENCOUNTERS Encounter Location Date Diagnosis [facility] [id number] [address] May, [facility] [id number] [address] Apr, [facility] [id number] [address] Apr, Essential hypertension I10 and 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 [facility] [address] [address] Mar, [facility] [id number] [place] [address]01- 6173 Feb, Onychomycosis B35.1 ; Neuropathy G62.9 and 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 [facility] [address] [address] Feb, [facility] [id number] [place] [address] 41803- 6831 December, [facility] [id number] [place] [address] 31064- 2920 December, Herpes zoster without complication B02.9 ; Onychia of toe of left foot L03.032 ; Ingrowing toenail with infection L60.0 and 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 [address], [place] [address] December, [facility] [address], [place] [address] Nov, [facility] [address] [address]- 8169 Oct, 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 [facility] [address] [address] 36[address] Oct, Essential hypertension I10 and 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 [facility] [address], [place] [address] 5060 Sep, 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 ; Type 2 diabetes mellitus with other skin ulcer E11.622 ; Chronic pain G89.29 ; Anxiety F41.9 ; Essential hypertension I10 ; Hypoxia R09.02 ; Atrial enlargement, left I51.7 and Left ventricular enlargement I51.7 [facility] [address] [address] Sep, [facility] [id number] [place] [address] 30408- 1999 Aug, [facility] [id number] [place] [address] 45810- 9389 Jul, [facility] [id number] [place] [address] 25170- 6056 Jul, [facility] [id number] [place] [address] 26030- 0133 Jul, CAD (coronary artery disease) I25.10 ; Essential hypertension I10 ; Pulmonary HTN I27.2 ; Atrial enlargement, left I51.7 and Left ventricular enlargement I51.7 [address] [id number] [place] [address] 15558- 2188 Jun, [facility] [id number] [place] [address] 58215- 0287 Jun, [facility] [id number] [place] [address] 64669- 9826 Jun, [facility] [address] [address] Jun, [facility] [id number] [place] [address] 58391- 3821 Jun, 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 ; Type 2 diabetes mellitus with other skin ulcer E11.622 ; Chronic pain G89.29 ; Anxiety F41.9 ; Essential hypertension I10 ; Ulcer of right lower leg, with unspecified severity L97.919 ; Pulmonary HTN I27.2 ; Hypoxia R09.02 ; Atrial enlargement, left I51.7 and Left ventricular enlargement I51.7 [facility] [id number] [place] [address] 66427- 9532 May, [address] [id number] [place] [address] 11398- 6926 08 Apr, 2016 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 ; Type 2 diabetes mellitus with other skin ulcer E11.622 ; Chronic pain G89.29 ; Anxiety F41.9 ; Cough R05 ; Essential hypertension I10 and Ulcer of right lower leg, with unspecified severity L97.[address] [address]- [address] 11 Mar, 2016 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 ; Chronic pain G89.29 ; Anxiety F41.9 ; Type 2 diabetes mellitus with other skin ulcer E11.622 ; Cough R05 ; Essential hypertension I10 and Ulcer of right lower leg, with unspecified severity L97.919 [address] [id number] [place] [address] 70754- 7838 Feb, [address] [address]- 1632 Feb, 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 ; Chronic pain G89.29 ; Anxiety F41.9 ; Type 2 diabetes mellitus with other skin ulcer E11.622 ; Cough R05 and Essential hypertension I10 [id number] [place] [address] 73418- 0894 Jan, Chronic pain G89.29 ; Anxiety F41.9 and Foot swelling M79.89 [id number] [place] [address] 01032- 8692 December, Chronic pain G89.29 ; Anxiety F41.9 and Stress incontinence in female N39.[address] 0[address]- 9028 December, [address] [id number] [place] [address] 88065- 6971 Nov, [address] [address]22- [address]265 Nov, [facility] [address], [place] [address]- 6819 Nov, [facility] [id number] [place] [address] 32798- 1237 Nov, Chronic pain G89.29 ; Anxiety F41.9 ; Non-healing skin lesion L98.9 and Type 2 diabetes mellitus with other skin ulcer E11.622 [facility] [id number] [place] [address] 20250- 2207 Nov, 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 [facility] [id number] [place] [address] 27536- 6781 Nov, [facility] [id number] [place] [address] 34723- 2497 Nov, [facility] [id number] [place] [address] 78851- 9923 Nov, [facility] [id number] [place] [address] 44894- 6730 Nov, [facility] [id number] [place] [address] 90148- 1156 Nov, 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 [facility] [id number] [place] [address] 92822- 0972 Oct, 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 ; Essential hypertension I10 ; Chronic pain G89.29 ; Anxiety F41.9 [address] Skin infection [address].9 [facility] [address] [address]906 Oct, [facility] [id number] [place] [address] 28417- 1328 Sep, [facility] [address], [place] [address]- 8288 Sep, 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 ; Chronic pain G89.29 ; Anxiety F41.9 and Allergic rhinitis J30.9 [address] [address] [address]- 4508 Aug, 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 ; Chronic pain G89.29 ; Anxiety F41.9 and Allergic rhinitis J30.[address] 23595- 7886 Jul, [address] [address] 33717- 7308 Jul, 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 ; Dyspepsia R10.13 ; Essential hypertension I10 ; long-term 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 ; CAD (coronary artery disease) I25.10 ; Chronic pain G89.29 ; Anxiety F41.9 ; Dysuria R30.0 and Pain of left lower leg M79.662 [address] [address] [address] 27702- 5247 Jul, [address] [address] 21858- 1524 Jun, 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 and long-term 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 [address] 84451- 9628 Jun, [address] [address] 43204- 8323 Jun, Neuropathy G62.9 ; Arthritis M19.90 ; Leg cramps R25.2 and Anxiety F41.9 [address] [address] [address] 69709- 4184 May, [address] [address] 57378- 4711 May, [address] [address] 69618- 4158 May, 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 [facility] [address] [address]- 1716 May, [facility] [address], [place] [address]- 2431 29 Apr, 2015 [facility] [address] [address]- 1003 Apr, [facility] [id number] [place] [address] 47167- 5126 17 Apr, 2015 [facility] [id number] [place] [address] 60367- 0875 14 Apr, 2015 [facility] [id number] [place] [address] 74954- 5177 Apr, [facility] [id number] [place] [address] 96614- 0632 Apr, [facility] [address] [address]- 8690 Apr, Diabetes with renal manifestations, type II or unspecified type, uncontrolled 250.42 ; Coronary atherosclerosis of unspecified type of vessel, [place] or graft 414.00 ; Polyneuropathy in diabetes 357.2 ; Hypertension 401.9 ; Anxiety 300.00 ; GERD (gastroesophageal reflux disease) 530.81 and Type 2 diabetes mellitus with pressure callus 250.80 [facility] [address], [place] [address]- 6696 Mar, [facility] [address], [place] [address]- 5991 Mar, [facility] [id number] [place] [address] 73295- 1989 Mar, [facility] [address] [address]- 1828 Mar, [facility] [address], [place] [address]- 3136 Mar, Diabetes with renal manifestations, type II or unspecified type, uncontrolled 250.42 ; Coronary atherosclerosis of unspecified type of vessel, [place] or graft 414.00 ; Polyneuropathy in diabetes 357.2 ; Hypertension 401.[address] [facility] [address] [address]- 6591 Mar, Routine gynecological examination V72.31 ; Breast cancer screening V76.10 ; Recurrent urinary tract infection 599.0 ; Mastodynia 611.71 [address] Tobacco abuse [address].1 [facility] [id number] [place] [address] 63161- 5447 Feb, [facility] [id number] [place] [address] 39644- 1620 Jan, [facility] [id number] [place] [address] 57525- 3684 Jan, [facility] [id number] [place] [address] 33860- 2506 Jan, [facility] [id number] [place] [address] 04329- 7350 Jan, [facility] [id number] [place] [address] 94902- 4682 December, [facility] [id number] [place] [address] 14794- 3876 December, [facility] [id number] [place] [address] 37204- 8541 Nov, [facility] [id number] [place] [address] 94153- 7197 Nov, [facility] [id number] [place] [address] 08144- 2475 Nov, [facility] [id number] [place] [address] 36385655- 5032 Oct, [facility] [id number] [place] [address] 16310- 4009 19 Oct, 2014 [facility] [place] [facility] [address] [id number] [place] [address]- 0023 16 Oct, 2014 [facility] [place] [facility] [address] [id number] [place] [address]- 1244 16 Oct, 2014 [facility] [place] [facility] [address] [id number] [place] [address]- 6959 16 Oct, 2014 [facility] [place] [facility] [address] [id number] [place] [address]- 6771 16 Oct, 2014 [facility] [place] [facility] [address] [id number] [place] [address]- 8857 16 Oct, 2014 [facility] [place] [facility] [address] [id number] [place] [address]- 0467 16 Oct, 2014 [facility] [place] [facility] [address] [id number] [place] [address]- 3035 16 Oct, 2014 [facility] [place] [facility] [address] [id number] [place] [address]- 1062 16 Oct, 2014 [facility] [place] [facility] [address] [id number] [place] [address]- 6955 16 Oct, 2014 [facility] [place] [facility] [address] [id number] [place] [address]- 0937 16 Oct, 2014 [facility] [place] [facility] [address] [id number] [place] [address]- 3668 04 Oct, 2014 [facility] [place] [facility] [address] [id number] [address]- 0037 04 Oct, 2014 [facility] [place] [facility] [address] [id number] [place] [address]- 7886 03 Oct, 2014 [facility] [place] [facility] [address] [id number] [place] [address]- 5229 03 Oct, 2014 [facility] [place] [facility] [address] [id number] [place] [address]- 4573 02 Oct, 2014 [facility] [place] [facility] [address] [facility] [id number] [place] [address]- 0953 Oct, [facility] [place] [facility] [address] [id number] [place] [address]- 1629 Sep, 2014 [facility] [place] [facility] [address] [facility] [id number] [place] [address]- 2546 Sep, 2014 [facility] [place] [facility] [address] [facility] [id number] [place] [address]- 8763 Sep, 2014 [facility] [place] [facility] [address] [facility] [id number] [place] [address]- 1966 Sep, 2014 [facility] [place] [facility] [address] [facility] [id number] [place] [address]- 8361 Sep, 2014 [facility] [place] [facility] [id number] [place] [address]- 7432 Sep, 2014 [facility] [place] [facility] [id number] [place] [address]- 2243 Sep, 2014 [facility] [place] [facility] [address] [facility] [id number] [place] [address]- 5331 Sep, 2014 [facility] [place] [facility] [id number] [place] [address]- 0811 Sep, 2014 [facility] [place] [facility] [id number] [address]- 9720 Sep, 2014 [facility] [place] [facility] [address] [facility] [id number] [address]- 254 Sep, 2014 [facility] [place] [facility] [address] [facility] [id number] [place] [address]- 8207 Sep, 2014 [facility] [place] [facility] [address] [facility] [id number] [address]- 0342 Sep, 2014 [facility] [place] [facility] [address] [facility] [id number] [address]- 9841 Sep, 2014 [facility] [place] [facility] [id number] [address]- 9418 Sep, [facility] [address] [id number] [place] [address]- 3921 Aug, [facility] [place] [facility] [address] [id number] [place] [address]- 9116 Aug, [facility] [place] [facility] [address] [id number] [place] [address]- 2833 Aug, [facility] [place] [facility] [address] [id number] [place] [address]- 7537 Aug, [facility] [place] [facility] [address] [id number] [place] [address]- 7621 Aug, [facility] [place] [facility] [address] [id number] [place] [address]- 2004 Aug, [facility] [address] [id number] [place] [address]- 3998 Aug, [facility] [place] [facility] [address] [id number] [place] [address]- 4334 Aug, [facility] [place] [facility] [address] [id number] [place] [address]- 2715 Aug, [facility] [place] [facility] [address] [id number] [place] [address]- 3605 Aug, [facility] [place] [facility] [address] [id number] [place] [address]- 6780 Aug, [facility] [place] [facility] [address] [id number] [address]- 0957 Aug, [facility] [place] [facility] [address] [id number] [place] [address]- 6327 Aug, [facility] [place] [facility] [address] [id number] [place] [address]- 1356 Jul, [facility] [place] [facility] [address] [id number] [place] [address]- 5830 Jul, [facility] [place] [facility] [address] [id number] [place] [address]- 7670 Jul, [facility] [place] [facility] [address] [id number] [place] [address]- 4576 Jul, [facility] [place] [facility] [address] [id number] [place] [address]- 2026 Jul, [facility] [place] [facility] [address] [id number] [place] [address]- 6287 Jul, [facility] [place] [facility] [address] [id number] [place] [address]- 1114 Jul, [facility] [place] [facility] [address] [id number] [place] [address]- 7400 Jul, [facility] [place] [facility] [address] [id number] [place] [address]- 8112 Jun, [facility] [place] [facility] [address] [id number] [place] [address]- 4700 Jun, [facility] [place] [facility] [address] [id number] [place] [address]- 5469 Jun, [facility] [place] [facility] [address] [id number] [place] [address]- 2012 Jun, [facility] [place] [facility] [address] [id number] [place] [address]- 1968 Jun, [facility] [place] [facility] [address] [id number] [place] [address]- 9814 Jun, [facility] [place] [facility] [address] [id number] [place] [address]- 5719 Jun, [facility] [place] [facility] [address] [id number] [place] [address]- 1943 Jun, [facility] [place] [facility] [address] [id number] [place] [address]- 1470 Jun, [facility] [place] [facility] [address] [id number] [place] [address]- 1014 Jun, [facility] [place] [facility] [address] [id number] [place] [address]- 7644 Jun, [facility] [place] [facility] [address] [id number] [place] [address]- 5237 14 Jun, 2014 [facility] [place] [facility] [address] [id number] [place] [address]- 9761 Jun, [facility] [place] [facility] [address] [id number] [place] [address]- 2401 Jun, [facility] [place] [facility] [address] [id number] [place] [address] Jun, [facility] [place] [facility] [address] [id number] [place] [address] Jun, [facility] [place] [facility] [address] [id number] [place] [address] May, [facility] [place] [facility] [address] [id number] [address] May, [facility] [place] [facility] [address] [id number], [place] [address] May, [facility] [place] [facility] [address] [id number][place] [address] May, [facility] [place] [facility] [address] [id number][place] [address] May, [facility] [place] [facility] [address] [id number][place] [address] May, [facility] [place] [facility] [address] [id number][place] [address] May, [facility] [place] [facility] [address] [id number][place] [address] May, [facility] [place] [facility] [address] [id number][place] [address] May, [facility] [place] [facility] [address] [id number] [place] [address] Apr, [facility] [place] [facility] [address] [id number] [place] [address] Apr, [facility] [place] [facility] [address] [id number] [place] [address] Apr, [facility] [place] [facility] [address] [id number] [place] [address] Apr, [facility] [place] [facility] [address] [id number] [place] [address] Mar, [facility] [place] [facility] [address] [id number] [place] [address] Mar, [facility] [place] [facility] [address] [id number] [place] [address] Mar, [facility] [place] [facility] [address] [id number] [place] [address] Mar, [facility] [place] [facility] [address] [id number] [place] [address] Feb, [facility] [place] [facility] [address] [id number] [place] [address] Feb, [facility] [place] [facility] [address] [id number] [place] [address] Jan, [facility] [place] [facility] [address] [id number] [place] [address] Jan, [facility] [place] [facility] [address] [id number] [place] [address] Jan, [facility] [place] [facility] [address] [id number] [place] [address] Jan, [facility] [place] [facility] [address] [id number] [place] [address] Jan, [facility] [place] [facility] [address] [id number] [place] [address] Jan, [facility] [place] [facility] [address] [id number] [place] [address] Jan, [facility] [place] [facility] [address] [id number] [place] [address] Jan, [facility] [place] [facility] [address] [id number] [place] [address] Jan, [facility] [place] [facility] [address] [id number] [place] [address] Jan, [facility] [place] [facility] [address] [id number] [place] [address] Jan, [facility] [place] [facility] [address] [id number] [place] [address] Jan, [facility] [place] [facility] [address] [id number] [place] [address] Jan, [facility] [place] [facility] [address] [id number] [place] [address] December, [facility] [place] [facility] [address] [id number] [place] [address] December, [facility] [place] [facility] [address] [id number] [place] [address] December, [facility] [place] [facility] [address] [id number] [place] [address] December, [facility] [place] [facility] [address] [id number] [place] [address] December, [facility] [place] [facility] [address] [id number] [place] [address] Nov, [facility] [place] [facility] [address] [id number] [place] [address] Nov, [facility] [place] [facility] [address] [id number] [place] [address] Nov, [facility] [place] [facility] [address] [id number] [place] [address] Nov, [facility] [place] [facility] [address] [id number] [place] [address] Nov, [facility] [place] [facility] [address] [id number] [place] [address] Nov, [facility] [place] [facility] [address] [id number] [place] [address] Nov, [facility] [place] [facility] [address] [id number] [place] [address] Nov, [facility] [place] [facility] [address] [id number] [place] [address] Nov, [facility] [place] [facility] [address] [id number] [place] [address] Nov, [facility] [place] [facility] [address] [id number] [place] [address] Jun, [facility] [place] [facility] [address] [id number] [place] [address] Jun, [facility] [place] [facility] [address] [id number] [place] [address] May, [facility] [place] [facility] [address] [id number] [place] [address] May, [facility] [place] [facility] [address] [id number] [address] May, [facility] [place] [facility] [address] [id number] [address] May, [facility] [place] [facility] [address] [id number] [place] [address] May, [facility] [place] [facility] [address] [id number] [place] [address] May, [facility] [place] [facility] [address] [id number] [place] [address] May, [facility] [place] [facility] [address] [id number] [place] [address] May, [facility] [address] [id number] [place] [address] May, [facility] [address] [id number] [place] [address] 25 Apr, 2011 [facility] [address] [id number] [place] [address] 25 Apr, 2011 [facility] [address] [id number] [place] [address] 25 Apr, 2011 [facility] [address] [id number] [place] [address] 21 Apr, 2012 [facility] [address] [id number] [place] [address] 20 Apr, 2012 [facility] [address] [id number] [place] [address]37 19 Apr, 2012 [facility] [address] [id number] [place] [address] 05 Apr, 2012 [facility] [address] [id number] [place] [address] 04 Apr, 2012 [facility] [address] [id number] [place] [address] 28 Mar, 2012 [facility] [address] [id number] [place] [address]99 27 Mar, 2012 [facility] [address] [id number] [place] [address] 2549 16 Mar, 2012 [facility] [address] [id number] [place] [address] 14 Mar, 2012 [facility] [address] [id number] [place] [address] Mar, [facility] [address] [place] [id number] Mar [facility] [place] [facility] [address] [id number] [place] [address] Mar, [facility] [place] [facility] [address] [id number] [place] [address] Feb, [facility] [place] [facility] [address] [id number] [place] [address] 2546 Feb, [facility] [place] [facility] [address] [id number] [place] [address] 2546 Feb, [facility] [place] [facility] [address] [id number] [place] [address] 2542 Feb, [facility] [place] [facility] [address] [id number] [place] [address] Feb, [facility] [place] [facility] [address] [id number] [place] [address] Feb, [facility] [place] [facility] [address] [id number] [place] [address] Jan, [facility] [place] [facility] [address] [id number] [place] [address] 67[address] Jan, [facility] [place] [facility] [address] [id number] [place] [address] Jan, [facility] [place] [facility] [address] [id number] [place] [address] 6311 Jan, [facility] [place] [facility] [address] [id number] [place] [address] 6240 Jan, [facility] [place] [facility] [address] [id number] [place] [address] 2542 Jan, [facility] [place] [facility] [address] [id number] [place] [address] Jan, [facility] [place] [facility] [address] [id number] [place] [address] December, [facility] [place] [facility] [address] [id number] [place] [address] December, [facility] [address] [id number] [place] [address] 8499 December, [facility] [place] [facility] [address] [id number] [place] [address]187 Nov, [facility] [place] [facility] [address] [id number] [place] [address] 9562 Nov, [facility] [place] [facility] [address] [id number] [place] [address] 6454 Nov, [facility] [place] [facility] [address] [id number] [place] [address] 5608 Nov, [facility] [place] [facility] [address] [id number] [place] [address]- 8824 Nov, [facility] [place] [facility] [address] [id number] [place] [address]- 3047 Nov, [facility] [place] [facility] [address] [id number] [place] [address]- 5945 Nov, [facility] [place] [facility] [address] [id number] [place] [address]- 6655 Nov, [facility] [place] [facility] [address] [id number] [place] [address]- 4911 Oct, [facility] [place] [facility] [address] [id number] [address]69 Oct, [facility] [place] [facility] [address] [id number][place] [address] Oct, [facility] [place] [facility] [address] [id number] [place] [address]- 5684 Oct, [facility] [place] [facility] [address] [id number] [place] [address]- 265[address] Sep, [facility] [place] [facility] [address] [facility] [id number] [place] [address]- 2546 Sep, [facility] [place] [facility] [address] [id number] [place] [address]- 4123 Sep, [facility] [address] [id number] [place] [address]- 8223 Aug, [facility] [place] [facility] [address] [id number] [place] [address]- 2703 Aug, [facility] [address] [id number] [place] [address]- 6662 Aug, [facility] [address] [id number] [place] [address]- 8812 Aug, [facility] [address] [id number] [place] [address], [place] [address]- 228[address] 15 Jul, 2011 [facility] [address] [id number] [place] [address]- 9213 15 Jul, 2011 [facility] [address] [id number] [place] [address]- 3414 15 Jul, 2011 [facility] [address] [id number] [place] [address]- 2321 30 Jun, 2011 [facility] [address] [id number] [place] [address]- 1783 22 Jun, 2011 [facility] [address] [facility] [id number] [place] [address]- 8204 15 Jun, 2011 [facility] [place] [facility] [address] [id number] [place] [address]- 6099 14 Jun, 2011 [facility] [place] [facility] [address] [id number] [place] [address]- 4268 14 Jun, 2011 [facility] [place] [facility] [address] [id number] [place] [address]- 8110 14 Jun, 2011 [facility] [place] [facility] [address] [id number] [place] [address]- 7372 31 May, 2011 [facility] [place] [facility] [address] [id number] [place] [address] May, [facility] [address] [facility] [id number] [address] May, [facility] [address] [facility] [id number] [address] Apr, [facility] [address] [facility] [id number] [address] Mar, [facility] [address] [facility] [id number][place] [address]46 Aug, IMMUNIZATIONS No Known Immunizations SOCIAL HISTORY Never Assessed REASON FOR VISIT Controlled Med Refill PLAN OF CARE VITAL SIGNS MEDICATIONS Medication Instructions Dosage Frequency Start Date End Date Duration Status Losartan Potassium 50 mg Orally Once a day 1 tablet 24h 30 day(s) Active Lyrica 150 MG Orally Three times a day 1 capsule 8h Active RESULTS No Results PROCEDURES No Known [...] Coronary atherosclerosis of unspecified type of vessel, [place] or graft Surgical History partial hysterectomy 1991 Surgical History heart cath 2004, 2011 Hospitalization History minor MD 2004 Hospitalization History [facility] pancreatitis 11/2010 Hospitalization History [place] [facility] for a stroke 12/2011 Hospitalization History staph infection-Shira Colby 05/2016
[2018-09-22] MEDS ORDERED: NS IV 1000 ML 1,000 ML IV SCH (15:15)
[2018-09-22] MEDS ORDERED: NS IV 500 ML 500 ML IV ONE (15:15)
--- OUTSIDE RECORDS SUMMARY | 2018-09-22 15:16 | XMS REPORT | Continuity of Care Document ---
Author Author [facility] Address Unknown Phone Unavailable Allergies Active Description Code Type Severity Reaction Onset Reported/Identified Relationship to Patient Clinical Status Yes aspirin Drug Allergy N/A N/A 08/30/2010 Yes morphine Drug Allergy N/A N/A 08/30/2010 Yes aspirin Drug Allergy 08/30/2010 Yes morphine Drug Allergy 08/30/2010 Yes hydromorphone HCl [id number] Drug Allergy Mild VOMITING 01/06/2011 Yes Dilaudid Drug Allergy N/A N/A 03/02/2011 Yes Dilaudid Drug Allergy 03/02/2011 Yes Influenza Virus Vaccine Drug Allergy N/A N/A 11/28/2011 Yes Influenza Virus Vaccine Drug Allergy 11/28/2011 Yes amlodipine 5 mg Tablet Drug Allergy N/A N/A 03/12/2012 Yes amlodipine 5 mg Tablet Drug Allergy 03/12/2012 Yes metformin 500 mg tablet,ER myron.retention 24 hr Drug Allergy N/A N/A Yes aspirin [id number] Drug Allergy Unknown N/A 03/25/2014 Yes morphine [id number] Drug Allergy Unknown N/A 03/25/2014 Yes FLU VACCINE FLU VACCINE Unknown N/A 07/23/2014 Yes influenza virus vacc,specific [id number] Drug Allergy Unknown N/A 2013 Yes influenza virus vaccine, specific [id number] Drug Allergy Unknown N/A 07/23 Medications There is no data. Problems Date Dx Coded Attending Type Code [...] K 401.1 ESSENTIAL HYPERTENSION BENIGN 08/30/2010 MADL CYBER INCIDENT RESPONDER, ALBIN L 250.02 DIABETES II UNCONTROLLED 08/30/2010 MADL CYBER INCIDENT RESPONDER, ALBIN L 401.1 ESSENTIAL HYPERTENSION BENIGN 08/30/2010 MADL CYBER INCIDENT RESPONDER, ALBIN L 250.02 DIABETES II UNCONTROLLED 08/30/2010 MADL CYBER INCIDENT RESPONDER, ALBIN L 401.1 ESSENTIAL HYPERTENSION BENIGN 08/30/2010 BAH DO, COCO K 250.02 DIABETES II UNCONTROLLED 08/30/2010 BAH DO, COCO K 401.1 ESSENTIAL HYPERTENSION BENIGN 08/30/2010 BAH DO, COCO K 250.02 DIABETES II UNCONTROLLED 08/30/2010 BAH DO, COCO K 401.1 ESSENTIAL HYPERTENSION BENIGN 08/30/2010 DEANDRE CUEVAS MD N 250.02 DIABETES II UNCONTROLLED 08/30/2010 FAITH MALIN, DEANDRE N 401.1 ESSENTIAL HYPERTENSION BENIGN 08/30/2010 BAH DO, COCO K 250.02 DIABETES II UNCONTROLLED 08/30/2010 BAH DO, COCO K 401.1 ESSENTIAL HYPERTENSION BENIGN 08/30/2010 MADL CYBER INCIDENT RESPONDER, ALBIN L 250.02 DIABETES II UNCONTROLLED 08/30/2010 MADL CYBER INCIDENT RESPONDER, ALBIN L 401.1 ESSENTIAL HYPERTENSION BENIGN 08/30/2010 BAH DO, COCO K 250.02 DIABETES II UNCONTROLLED 08/30/2010 BAH DO, COCO K 401.1 ESSENTIAL HYPERTENSION BENIGN 08/30/2010 DEANDRE CUEVAS MD N 250.02 DIABETES II UNCONTROLLED 08/30/2010 DEANDRE CEUVAS MD N 401.1 ESSENTIAL HYPERTENSION BENIGN 08/30/2010 MADL CYBER INCIDENT RESPONDER, ALBIN L 250.02 DIABETES II UNCONTROLLED 08/30/2010 MADL CYBER INCIDENT RESPONDER, ALBIN L 401.1 ESSENTIAL HYPERTENSION BENIGN 08/30/2010 MADL CYBER INCIDENT RESPONDER, ALBIN L 250.02 DIABETES II UNCONTROLLED 08/30/2010 MADL CYBER INCIDENT RESPONDER, ALBIN L 401.1 ESSENTIAL HYPERTENSION BENIGN 08/30/2010 BAH DO, COCO K 250.02 DIABETES II UNCONTROLLED 08/30/2010 BAH DO, COCO K 401.1 ESSENTIAL HYPERTENSION BENIGN 09/18/2010 357.9 NEUROPATHY UNSP 09/18/2010 AHSAN CHANG APRN 357.9 NEUROPATHY UNSP 09/18/2010 MALIK SANTIAGO APRN R 357.9 NEUROPATHY UNSP 09/18/2010 BAH DO, COCO K 357.9 NEUROPATHY UNSP 09/18/2010 BAH DO, COCO K 357.9 NEUROPATHY UNSP 09/18/2010 MADL NICOLE, ALBIN L 357.9 NEUROPATHY UNSP 09/18/2010 MADL CYBER INCIDENT RESPONDER, ALBIN L 357.9 NEUROPATHY UNSP 09/18/2010 BAH DO, COCO K 357.9 NEUROPATHY UNSP 09/18/2010 BAH DO, COCO K 357.9 NEUROPATHY UNSP 09/18/2010 DEANDER CUEVAS MD N 357.9 NEUROPATHY UNSP 09/18/2010 BAH DO, COCO K 357.9 NEUROPATHY UNSP 09/18/2010 OC RIVERA, ALBIN L 357.9 NEUROPATHY UNSP 09/18/2010 BAH DO, COCO K 357.9 NEUROPATHY UNSP 09/18/2010 DEANDRE CUEVAS MD N 357.9 NEUROPATHY UNSP 09/18/2010 OC CYBER INCIDENT RESPONDER, ALBIN L 357.9 NEUROPATHY UNSP 09/18/2010 MADL NICOLE, ALBIN L 357.9 NEUROPATHY UNSP 09/18/2010 BAH DO, COCO K 357.9 NEUROPATHY UNSP 10/02/2010 112.1 CANDIDIASIS VAGINAL 10/02/2010 611.71 MASTODYNIA 10/02/2010 611.72 LUMP OR MASS IN BREAST 10/02/2010 V72.31 RECREATIONAL THERAPIST EXAM, ROUTINE 10/02/2010 AHSAN CHANG APRN 112.1 CANDIDIASIS VAGINAL 10/02/2010 AHSAN CHANG APRN 611.71 MASTODYNIA 10/02/2010 AHSAN CHANG APRN 611.72 LUMP OR MASS IN BREAST 10/02/2010 AHSAN CHANG APRN V72.31 RECREATIONAL THERAPIST EXAM, ROUTINE 10/02/2010 MALIK SANTIAGO APRN R 112.1 CANDIDIASIS VAGINAL 10/02/2010 MALIK SANTIAGO APRN R 611.71 MASTODYNIA 10/02/2010 MALIK SANTIAGO APRN R 611.72 LUMP OR MASS IN BREAST 10/02/2010 PAMELA PASTORN, MALIK R V72.31 RECREATIONAL THERAPIST EXAM, ROUTINE 10/02/2010 BAH DO, COCO K 112.1 CANDIDIASIS VAGINAL 10/02/2010 BAH DO, COCO K 611.71 MASTODYNIA 10/02/2010 BAH DO, COCO K 611.72 LUMP OR MASS IN BREAST 10/02/2010 BAH DO, COCO K V72.31 RECREATIONAL THERAPIST EXAM, ROUTINE 10/02/2010 BAH DO, COCO K 112.1 CANDIDIASIS VAGINAL 10/02/2010 BAH DO, COCO K 611.71 MASTODYNIA 10/02/2010 BAH DO, COCO K 611.72 LUMP OR MASS IN BREAST 10/02/2010 BAH DO, COCO K V72.31 RECREATIONAL THERAPIST EXAM, ROUTINE 10/02/2010 MADL CYBER INCIDENT RESPONDER, ALBIN L 112.1 CANDIDIASIS VAGINAL 10/02/2010 MADL CYBER INCIDENT RESPONDER, ALBIN L 611.71 MASTODYNIA 10/02/2010 MADL CYBER INCIDENT RESPONDER, ALBIN L 611.72 LUMP OR MASS IN BREAST 10/02/2010 MADL CYBER INCIDENT RESPONDER, ALBIN L V72.31 RECREATIONAL THERAPIST EXAM, ROUTINE 10/02/2010 MADL CYBER INCIDENT RESPONDER, ALBIN L 112.1 CANDIDIASIS VAGINAL 10/02/2010 MADL CYBER INCIDENT RESPONDER, ALBIN L 611.71 MASTODYNIA 10/02/2010 MADL CYBER INCIDENT RESPONDER, ALBIN L 611.72 LUMP OR MASS IN BREAST 10/02/2010 MADL CYBER INCIDENT RESPONDER, ALBIN L V72.31 RECREATIONAL THERAPIST EXAM, ROUTINE 10/02/2010 BAH DO, COCO K 112.1 CANDIDIASIS VAGINAL 10/02/2010 BAH DO, COCO K 611.71 MASTODYNIA 10/02/2010 BAH DO, COCO K 611.72 LUMP OR MASS IN BREAST 10/02/2010 BAH DO, COCO K V72.31 RECREATIONAL THERAPIST EXAM, ROUTINE 10/02/2010 BAH DO, COCO K 112.1 CANDIDIASIS VAGINAL 10/02/2010 BAH DO, COCO K 611.71 MASTODYNIA 10/02/2010 BAH DO, COCO K 611.72 LUMP OR MASS IN BREAST 10/02/2010 BAH DO, COCO K V72.31 RECREATIONAL THERAPIST EXAM, ROUTINE 10/02/2010 DEANDRE CUEVAS MD N 112.1 CANDIDIASIS VAGINAL 10/02/2010 DEANDRE CUEVAS MD N 611.71 MASTODYNIA 10/02/2010 DEANDRE CUEVAS MD 611.72 LUMP OR MASS IN BREAST 10/02/2010 DEANDRE CUEVAS MD V72.31 RECREATIONAL THERAPIST EXAM, ROUTINE 10/02/2010 BAH DO, COCO K 112.1 CANDIDIASIS VAGINAL 10/02/2010 BAH DO COCO K 611.71 MASTODYNIA 10/02/2010 BAH DO, COCO K 611.72 LUMP OR MASS IN BREAST 10/02/2010 BAH DO COCO K V72.31 RECREATIONAL THERAPIST EXAM, ROUTINE 10/02/2010 MADL CYBER INCIDENT RESPONDER, ALBIN L 112.1 CANDIDIASIS VAGINAL 10/02/2010 MADL CYBER INCIDENT RESPONDER, ALBIN L 611.71 MASTODYNIA 10/02/2010 MADL CYBER INCIDENT RESPONDER, ALBIN L 611.72 LUMP OR MASS IN BREAST 10/02/2010 MADL CYBER INCIDENT RESPONDER, ALBIN L V72.31 RECREATIONAL THERAPIST EXAM, ROUTINE 10/02/2010 BAH DO, COCO K 112.1 CANDIDIASIS VAGINAL 10/02/2010 BAH DO, COCO K 611.71 MASTODYNIA 10/02/2010 BAH DO, COCO K 611.72 LUMP OR MASS IN BREAST 10/02/2010 BAH DO COCO K V72.31 RECREATIONAL THERAPIST EXAM, ROUTINE 10/02/2010 DEANDRE CUEVAS MD N 112.1 CANDIDIASIS VAGINAL 10/02/2010 DEANDRE CUEVAS MD N 611.71 MASTODYNIA 10/02/2010 DEANDRE CUEVAS MD N 611.72 LUMP OR MASS IN BREAST 10/02/2010 DEANDRE CUEVAS MD N V72.31 RECREATIONAL THERAPIST EXAM, ROUTINE 10/02/2010 MADL CYBER INCIDENT RESPONDER, ALBIN L 112.1 CANDIDIASIS VAGINAL 10/02/2010 MADL CYBER INCIDENT RESPONDER, ALBIN L 611.71 MASTODYNIA 10/02/2010 MADL CYBER INCIDENT RESPONDER, ALBIN L 611.72 LUMP OR MASS IN BREAST 10/02/2010 MADL CYBER INCIDENT RESPONDER, ALBIN L V72.31 RECREATIONAL THERAPIST EXAM, ROUTINE 10/02/2010 MADL CYBER INCIDENT RESPONDER, ALBIN L 112.1 CANDIDIASIS VAGINAL 10/02/2010 MADL CYBER INCIDENT RESPONDER, ALBIN L 611.71 MASTODYNIA 10/02/2010 MADL CYBER INCIDENT RESPONDER, ALBIN L 611.72 LUMP OR MASS IN BREAST 10/02/2010 MADL CYBER INCIDENT RESPONDER, ALBIN L V72.31 RECREATIONAL THERAPIST EXAM, ROUTINE 10/02/2010 BAH DO, COCO K 112.1 CANDIDIASIS VAGINAL 10/02/2010 BAH DO, COCO K 611.71 MASTODYNIA 10/02/2010 BAH DO, COCO K 611.72 LUMP OR MASS IN BREAST 10/02/2010 BAH DO, COCO K V72.31 RECREATIONAL THERAPIST EXAM, ROUTINE 10/16/2010 250.00 DIABETES MELLITUS 10/16/2010 AHSAN CHANG APRN 250.00 DIABETES MELLITUS 10/16/2010 MALIK SANTIAGO APRN 250.00 DIABETES MELLITUS 10/16/2010 BAH DO, COCO K 250.00 DIABETES MELLITUS 10/16/2010 BAH DO, COCO K 250.00 DIABETES MELLITUS 10/16/2010 MAD CYBER INCIDENT RESPONDER, ALBIN L 250.00 DIABETES MELLITUS 10/16/2010 MAD CYBER INCIDENT RESPONDER, ALBIN L 250.00 DIABETES MELLITUS 10/16/2010 BAH DO, COCO K 250.00 DIABETES MELLITUS 10/16/2010 BAH DO, COCO K 250.00 DIABETES MELLITUS 10/16/2010 FAITH MALIN, DEANDRE N 250.00 DIABETES MELLITUS 10/16/2010 BAH DO, COCO K 250.00 DIABETES MELLITUS 10/16/2010 MADL CYBER INCIDENT RESPONDER, ALBIN L 250.00 DIABETES MELLITUS 10/16/2010 BAH DO, COCO K 250.00 DIABETES MELLITUS 10/16/2010 FAITH MALIN, DEANDRE N 250.00 DIABETES MELLITUS 10/16/2010 MAD CYBER INCIDENT RESPONDER, ALBIN L 250.00 DIABETES MELLITUS 10/16/2010 MADL CYBER INCIDENT RESPONDER, ALBIN L 250.00 DIABETES MELLITUS 10/16/2010 BAH DO, COCO K 250.00 DIABETES MELLITUS 01/05/2011 786.50 chest pain or discomfort 01/05/2011 AHSAN CHANG APRN 786.50 chest pain or discomfort 01/05/2011 MALIK SANTIAGO APRN 786.50 chest pain or discomfort 01/05/2011 BAH DO, COCO K 786.50 chest pain or discomfort 01/05/2011 BAH DO, COCO K 786.50 chest pain or discomfort 01/05/2011 MADL CYBER INCIDENT RESPONDER, ALBIN L 786.50 chest pain or discomfort 01/05/2011 MADL CYBER INCIDENT RESPONDER, ALBIN L 786.50 chest pain or discomfort 01/05/2011 BAH DO, COCO K 786.50 chest pain or discomfort 01/05/2011 BAH DO, COCO K 786.50 chest pain or discomfort 01/05/2011 DEANDRE CUEVAS MD 786.50 chest pain or discomfort 01/05/2011 BAH DO, COCO K 786.50 chest pain or discomfort 01/05/2011 MADL CYBER INCIDENT RESPONDER, ALBIN L 786.50 chest pain or discomfort 01/05/2011 BHA DO, COCO K 786.50 chest pain or discomfort 01/05/2011 DEANDRE CUEVAS MD 786.50 chest pain or discomfort 01/05/2011 MADL CYBER INCIDENT RESPONDER, ALBIN L 786.50 chest pain or discomfort 01/05/2011 MADL CYBER INCIDENT RESPONDER, ALBIN L 786.50 chest pain or discomfort 01/05/2011 BAH DO, COCO K 786.50 chest pain or discomfort 01/08/2011 Ot 250.60 01/08/2011 Ot 357.2 01/08/2011 Ot 401.9 01/08/2011 Ot 414.01 01/08/2011 Ot 577.0 01/08/2011 Ot 599.0 01/08/2011 Ot 786.50 01/08/2011 Ot E932.3 01/08/2011 Ot V12.2 01/08/2011 Ot V45.82 03/02/2011 599.0 URINARY TRACT INFECTION 03/02/2011 AHSAN CHANG APRN 599.0 URINARY TRACT INFECTION 03/02/2011 MALIK SANTIAGO APRN 599.0 URINARY TRACT INFECTION 03/02/2011 BAH DO, COCO K 599.0 URINARY TRACT INFECTION 03/02/2011 BAH DO, COCO K 599.0 URINARY TRACT INFECTION 03/02/2011 MADL CYBER INCIDENT RESPONDER, ALBIN L 599.0 URINARY TRACT INFECTION 03/02/2011 MADL CYBER INCIDENT RESPONDER, ALBIN L 599.0 URINARY TRACT INFECTION 03/02/2011 BAH DO, COCO K 599.0 URINARY TRACT INFECTION 03/02/2011 BAH DO, COCO K 599.0 URINARY TRACT INFECTION 03/02/2011 DEANDRE CUEVAS MD 599.0 URINARY TRACT INFECTION 03/02/2011 BAH DO, COCO K 599.0 URINARY TRACT INFECTION 03/02/2011 MADL CYBER INCIDENT RESPONDER, ALBIN L 599.0 URINARY TRACT INFECTION 03/02/2011 BAH DO, COCO K 599.0 URINARY TRACT INFECTION 03/02/2011 DEANDRE CUEVAS MD 599.0 URINARY TRACT INFECTION 03/02/2011 MADL CYBER INCIDENT RESPONDER, ALBIN L 599.0 URINARY TRACT INFECTION 03/02/2011 MADL CYBER INCIDENT RESPONDER, ALBIN L 599.0 URINARY TRACT INFECTION 03/02/2011 BAH DO, COCO K 599.0 URINARY TRACT INFECTION 03/28/2011 274.9 GOUT 03/28/2011 AHSAN CHANG APRN 274.9 GOUT 03/28/2011 MALIK SANTIAGO APRN R 274.9 GOUT 03/28/2011 BAH DO, COCO K 274.9 GOUT 03/28/2011 BAH DO, COCO K 274.9 GOUT 03/28/2011 MADL CYBER INCIDENT RESPONDER, ALBIN L 274.9 GOUT 03/28/2011 MADL CYBER INCIDENT RESPONDER, ALBIN L 274.9 GOUT 03/28/2011 BAH DO, COCO K 274.9 GOUT 03/28/2011 BAH DO, COCO K 274.9 GOUT 03/28/2011 DEANDRE CUEVAS MD N 274.9 GOUT 03/28/2011 BAH DO, COCO K 274.9 GOUT 03/28/2011 MADL CYBER INCIDENT RESPONDER, ALBIN L 274.9 GOUT 03/28/2011 BAH DO, COCO K 274.9 GOUT 03/28/2011 DEANDRE CUEVAS MD N 274.9 GOUT 03/28/2011 MADL CYBER INCIDENT RESPONDER, ALBIN L 274.9 GOUT 03/28/2011 MADL CYBER INCIDENT RESPONDER, ALBIN L 274.9 GOUT 03/28/2011 BAH DO, COCO K 274.9 GOUT 07/26/2011 272.4 HYPERLIPIDEMIA 07/26/2011 AHSAN CHANG APRN 272.4 HYPERLIPIDEMIA 07/26/2011 MALIK SANTIAGO APRN R 272.4 HYPERLIPIDEMIA 07/26/2011 BAH DO, COCO K 272.4 HYPERLIPIDEMIA 07/26/2011 BAH DO, COCO K 272.4 HYPERLIPIDEMIA 07/26/2011 MADL CYBER INCIDENT RESPONDER, ALBIN L 272.4 HYPERLIPIDEMIA 07/26/2011 MADL CYBER INCIDENT RESPONDER, ALBIN L 272.4 HYPERLIPIDEMIA 07/26/2011 BAH DO, COCO K 272.4 HYPERLIPIDEMIA 07/26/2011 BAH DO, COCO K 272.4 HYPERLIPIDEMIA 07/26/2011 DEANDRE CUEVAS MD 272.4 HYPERLIPIDEMIA 07/26/2011 BAH DO, COCO K 272.4 HYPERLIPIDEMIA 07/26/2011 MADL CYBER INCIDENT RESPONDER, ALBIN L 272.4 HYPERLIPIDEMIA 07/26/2011 BAH DO, COCO K 272.4 HYPERLIPIDEMIA 07/26/2011 DEANDRE CUEVAS MD 272.4 HYPERLIPIDEMIA 07/26/2011 MADL CYBER INCIDENT RESPONDER, ALBIN L 272.4 HYPERLIPIDEMIA 07/26/2011 MADL CYBER INCIDENT RESPONDER, ALBIN L 272.4 HYPERLIPIDEMIA 07/26/2011 BAH DO, COCO K 272.4 HYPERLIPIDEMIA 08/15/2011 414.00 CAD 08/15/2011 CHARLENE CYBER INCIDENT RESPONDERAHSAN [place] T 414.00 CAD 08/15/2011 PAMELA CYBER INCIDENT RESPONDERMALIK [place] R 414.00 CAD 08/15/2011 BAH DO, COCO K 414.00 CAD 08/15/2011 BAH DO, COCO K 414.00 CAD 08/15/2011 [facility] [place] CYBER INCIDENT RESPONDER, ALBIN L 414.00 CAD 08/15/2011 MADL CYBER INCIDENT RESPONDER, ALBIN L 414.00 CAD 08/15/2011 BAH DO, COCO K 414.00 CAD 08/15/2011 BAH DO, COCO K 414.00 CAD 08/15/2011 DEANDRE CUEVAS MD 414.00 CAD 08/15/2011 BAH DO, COCO K 414.00 CAD 08/15/2011 MADL CYBER INCIDENT RESPONDER, ALBIN L 414.00 CAD 08/15/2011 BAH DO, COCO K 414.00 CAD 08/15/2011 DEANDRE CUEVAS MD 414.00 CAD 08/15/2011 MADL CYBER INCIDENT RESPONDER, ALBIN L 414.00 CAD 08/15/2011 MADL CYBER INCIDENT RESPONDER, ALBIN L 414.00 CAD 08/15/2011 BAH DO, [...] W/ NEUROPATHY, TYPE 2 - UNCONTROLLED 09/03/2011 COCO BAH DO K 250.62 DIABETES W/ NEUROPATHY, TYPE 2 [...] APRN 465.9 Upper Respiratory Infection 09/12/2011 PAMELA CYBER INCIDENT RESPONDER, MALIK R 465.9 Upper Respiratory Infection 09/12/2011 BAH DO, COCO K 465.9 Upper Respiratory Infection 09/12/2011 BAH DO, COCO K 465.9 Upper Respiratory Infection 09/12/2011 MADL CYBER INCIDENT RESPONDER, ALBIN L 465.9 Upper Respiratory Infection 09/12/2011 MADL CYBER INCIDENT RESPONDER, ALBIN L 465.9 Upper Respiratory Infection 09/12/2011 BAH DO, COCO K 465.9 Upper Respiratory Infection 09/12/2011 BAH DO, COCO K 465.9 Upper Respiratory Infection 09/12/2011 DEANDRE CUEVAS MD 465.9 Upper Respiratory Infection 09/12/2011 BAH DO, COCO K 465.9 Upper Respiratory Infection 09/12/2011 MADL CYBER INCIDENT RESPONDER, ALBIN L 465.9 Upper Respiratory Infection 09/12/2011 BAH DO, COCO K 465.9 Upper Respiratory Infection 09/12/2011 DEANDRE CUEVAS MD 465.9 Upper Respiratory Infection 09/12/2011 MADL CYBER INCIDENT RESPONDER, ALBIN L 465.9 Upper Respiratory Infection 09/12/2011 MADL CYBER INCIDENT RESPONDER, ALBIN L 465.9 Upper Respiratory Infection 09/12/2011 BAH DO, CCOO K 465.9 Upper Respiratory Infection 10/04/2011 692.9 Dermatitis Contact Unspecified 10/04/2011 AHSAN CHANG APRN 692.9 Dermatitis Contact Unspecified 10/04/2011 AMI SANTIAGO APRNINA R 692.9 Dermatitis Contact Unspecified 10/04/2011 BAH DO, COCO K 692.9 Dermatitis Contact Unspecified 10/04/2011 ABH DO, COCO K 692.9 Dermatitis Contact Unspecified 10/04/2011 OC CYBER INCIDENT RESPONDER, ALBIN L 692.9 Dermatitis Contact Unspecified 10/04/2011 MADL CYBER INCIDENT RESPONDER, ALBIN L 692.9 Dermatitis Contact Unspecified 10/04/2011 BAH DO, COCO K 692.9 Dermatitis Contact Unspecified 10/04/2011 BAH DO, COCO K 692.9 Dermatitis Contact Unspecified 10/04/2011 DEANDRE CUEVAS MD 692.9 Dermatitis Contact Unspecified 10/04/2011 BAH DO, COCO K 692.9 Dermatitis Contact Unspecified 10/04/2011 OC RIVERA ALBIN L 692.9 Dermatitis Contact Unspecified 10/04/2011 BAH DO, COCO K 692.9 Dermatitis Contact Unspecified 10/04/2011 DEANDRE CUEVAS MD 692.9 Dermatitis Contact Unspecified 10/04/2011 MADL CYBER INCIDENT RESPONDER, ALBIN L 692.9 Dermatitis Contact Unspecified 10/04/2011 MADL CYBER INCIDENT RESPONDER, ALBIN L 692.9 Dermatitis Contact Unspecified 10/04/2011 BAH DO, COCO K 692.9 Dermatitis Contact Unspecified 10/15/2011 466.0 Acute Bronchitis 10/15/2011 AHSAN CHANG APRN 466.0 Acute Bronchitis 10/15/2011 PAMELA CYBER INCIDENT RESPONDER, MALIK R 466.0 Acute Bronchitis 10/15/2011 BAH DO, COCO K 466.0 Acute Bronchitis 10/15/2011 BAH DO, COCO K 466.0 Acute Bronchitis 10/15/2011 MADL CYBER INCIDENT RESPONDER, ALBIN L 466.0 Acute Bronchitis 10/15/2011 MADL CYBER INCIDENT RESPONDER, ALBIN L 466.0 Acute Bronchitis 10/15/2011 BAH DO, COCO K 466.0 Acute Bronchitis 10/15/2011 BAH DO, COCO K 466.0 Acute Bronchitis 10/15/2011 DEANDRE CUEVAS MD N 466.0 Acute Bronchitis 10/15/2011 BAH DO, COCO K 466.0 Acute Bronchitis 10/15/2011 MADL CYBER INCIDENT RESPONDER, ALBIN L 466.0 Acute Bronchitis 10/15/2011 BAH DO, COCO K 466.0 Acute Bronchitis 10/15/2011 DEANDRE CUEVAS MD N 466.0 Acute Bronchitis 10/15/2011 MADL CYBER INCIDENT RESPONDER, ALBIN L 466.0 Acute Bronchitis 10/15/2011 MADL CYBER INCIDENT RESPONDER, ALBIN L 466.0 Acute Bronchitis 10/15/2011 BAH DO, COCO K 466.0 Acute Bronchitis 11/01/2011 682.7 Cellulitis - Foot 11/01/2011 AHSAN CHANG APRN 682.7 Cellulitis - Foot 11/01/2011 PAMELA CYBER INCIDENT RESPONDER, MALIK R 682.7 Cellulitis - Foot 11/01/2011 BAH DO, COCO K 682.7 Cellulitis - Foot 11/01/2011 BAH DO, COCO K 682.7 Cellulitis - Foot 11/01/2011 MADL CYBER INCIDENT RESPONDER, ALBIN L 682.7 Cellulitis - Foot 11/01/2011 MADL CYBER INCIDENT RESPONDER, ALBIN L 682.7 Cellulitis - Foot 11/01/2011 BAH DO, COCO K 682.7 Cellulitis - Foot 11/01/2011 BAH DO, COCO K 682.7 Cellulitis - Foot 11/01/2011 DEANDRE CUEVAS MD N 682.7 Cellulitis - Foot 11/01/2011 BAH DO, COCO K 682.7 Cellulitis - Foot 11/01/2011 MADL CYBER INCIDENT RESPONDER, ALBIN L 682.7 Cellulitis - Foot 11/01/2011 BAH DO, COCO K 682.7 Cellulitis - Foot 11/01/2011 DEANDRE CUEVAS MD N 682.7 Cellulitis - Foot 11/01/2011 MADL CYBER INCIDENT RESPONDER, ALBIN L 682.7 Cellulitis - Foot 11/01/2011 MADL CYBER INCIDENT RESPONDER, ALBIN L 682.7 Cellulitis - Foot 11/01/2011 BAH DO, COCO K 682.7 Cellulitis - Foot 11/28/2011 724.2 lower back pain 11/28/2011 V03.82 Need For Vaccination Pneumococcal 11/28/2011 AHSAN CHANG APRN 724.2 lower back pain 11/28/2011 AHSAN CHANG APRN V03.82 Need For Vaccination Pneumococcal 11/28/2011 MALIK SANTIAGO APRN R 724.2 lower back pain 11/28/2011 AMI SANTIAGO APRNINA R V03.82 Need For Vaccination Pneumococcal 11/28/2011 BAH DOSABRINAA K 724.2 lower back pain 11/28/2011 BAH DO, COCO K V03.82 Need For Vaccination Pneumococcal 11/28/2011 BAH DO, COCO K 724.2 lower back pain 11/28/2011 BAH DO, COCO K V03.82 Need For Vaccination Pneumococcal 11/28/2011 MADL CYBER INCIDENT RESPONDER, ALBIN L 724.2 lower back pain 11/28/2011 MADL CYBER INCIDENT RESPONDER, ALBIN L V03.82 Need For Vaccination Pneumococcal 11/28/2011 MADL CYBER INCIDENT RESPONDER, ALBIN L 724.2 lower back pain 11/28/2011 MADL CYBER INCIDENT RESPONDER, ALBIN L V03.82 Need For Vaccination Pneumococcal [...] N V03.82 Need For Vaccination Pneumococcal 11/28/2011 BAH DOSABRINAA K 724.2 lower back pain 11/28/2011 BAH DO COCO K V03.82 Need For Vaccination Pneumococcal 11/28/2011 MADL CYBER INCIDENT RESPONDERALBIN [place] 724.2 lower back pain 11/28/2011 MADL AIMEE RIVERAA L V03.82 Need For Vaccination Pneumococcal 11/28/2011 BAH SABRINA SINGHA K 724.2 lower back pain 11/28/2011 BAH DO COCO K V03.82 Need For Vaccination Pneumococcal 11/28/2011 DEANDRE CUEVAS MD N 724.2 lower back pain 11/28/2011 DEANDRE CUEVAS MD N V03.82 Need For Vaccination Pneumococcal 11/28/2011 MADL CYBER INCIDENT RESPONDERAIMEE [place] L 724.2 lower back pain 11/28/2011 MADL CYBER INCIDENT RESPONDERAIMEE [place] L V03.82 Need For Vaccination Pneumococcal 11/28/2011 MADL CYBER INCIDENT RESPONDERAIMEE [place] L 724.2 lower back pain 11/28/2011 MADL CYBER INCIDENT RESPONDER, ALBIN L V03.82 Need For Vaccination Pneumococcal 11/28/2011 BAH DOSABRINAA K 724.2 lower back pain 11/28/2011 BAH SABRINA SINGHA K V03.82 Need For Vaccination Pneumococcal 01/09/2012 438.9 CVA LATE EFFECTS 01/09/2012 782.3 EDEMA 01/09/2012 AHSAN CHANG APRN 438.9 CVA LATE EFFECTS 01/09/2012 AHSAN CHANG APRN 782.3 EDEMA 01/09/2012 MALIK SANTIAGO APRN 438.9 CVA LATE EFFECTS 01/09/2012 PAMELA CYBER INCIDENT RESPONDER, MALIK R 782.3 EDEMA 01/09/2012 BAH DO, COCO K 438.9 CVA LATE EFFECTS 01/09/2012 BAH DO, COCO K 782.3 EDEMA 01/09/2012 BAH DO, COCO K 438.9 CVA LATE EFFECTS 01/09/2012 BAH DO, COCO K 782.3 EDEMA 01/09/2012 MADL CYBER INCIDENT RESPONDER, ALBIN L 438.9 CVA LATE EFFECTS 01/09/2012 MADL CYBER INCIDENT RESPONDER, ALBIN L 782.3 EDEMA 01/09/2012 MADL CYBER INCIDENT RESPONDER, ALBIN L 438.9 CVA LATE EFFECTS 01/09/2012 MADL CYBER INCIDENT RESPONDER, ALBIN L 782.3 EDEMA 01/09/2012 BAH DO, COCO K 438.9 CVA LATE EFFECTS 01/09/2012 BAH DO, COCO K 782.3 EDEMA 01/09/2012 BAH DO, COCO K 438.9 CVA LATE EFFECTS 01/09/2012 BAH DO, COCO K 782.3 EDEMA 01/09/2012 DEANDRE CUEVAS MD N 438.9 CVA LATE EFFECTS 01/09/2012 DEANDRE CUEVAS MD N 782.3 EDEMA 01/09/2012 BAH DO, COCO K 438.9 CVA LATE EFFECTS 01/09/2012 BAH DO, COCO K 782.3 EDEMA 01/09/2012 MADL CYBER INCIDENT RESPONDER, ALBIN L 438.9 CVA LATE EFFECTS 01/09/2012 MADL CYBER INCIDENT RESPONDER, ALBIN L 782.3 EDEMA 01/09/2012 BAH DO, COCO K 438.9 CVA LATE EFFECTS 01/09/2012 BAH DO, COCO K 782.3 EDEMA 01/09/2012 DEANDRE CUEVAS MD N 438.9 CVA LATE EFFECTS 01/09/2012 DEANDRE CUEVAS MD N 782.3 EDEMA 01/09/2012 MADL CYBER INCIDENT RESPONDER, ALBIN L 438.9 CVA LATE EFFECTS 01/09/2012 MADL CYBER INCIDENT RESPONDER, ALBIN L 782.3 EDEMA 01/09/2012 MADL CYBER INCIDENT RESPONDER, ALBIN L 438.9 CVA LATE EFFECTS 01/09/2012 MADL CYBER INCIDENT RESPONDER, ALBIN L 782.3 EDEMA 01/09/2012 BAH DO, [...] 845.10 Unspecified Site Of Foot Sprain 02/25/2012 AMI SANTIAGO APRNINA R 599.0 Urinary Tract Infection Site Not [...] Unspecified Site Of Foot Sprain 02/25/2012 MADL CYBER INCIDENT RESPONDER, ALBIN L 599.0 Urinary Tract Infection Site Not Specified 02/25/2012 MADL CYBER INCIDENT RESPONDER, ALBIN L 845.10 Unspecified Site Of Foot Sprain 02/25/2012 MADL CYBER INCIDENT RESPONDER, ALBIN L 599.0 Urinary Tract Infection Site Not Specified 02/25/2012 MADL CYBER INCIDENT RESPONDER, ALBIN L 845.10 Unspecified Site Of Foot [...] Unspecified Site Of Foot Sprain 02/25/2012 MADL CYBER INCIDENT RESPONDER, ALBIN L 599.0 Urinary Tract Infection Site Not Specified 02/25/2012 MADL CYBER INCIDENT RESPONDER, ALBIN L 845.10 Unspecified Site Of Foot Sprain 02/25/2012 BAH DO, COCO K 599.0 Urinary Tract Infection Site Not Specified 02/25/2012 BAH DO COCO K 845.10 Unspecified Site Of Foot Sprain 02/25/2012 DEANDRE CUEVAS MD N 599.0 Urinary Tract Infection Site Not Specified 02/25/2012 DEANDRE CUEVAS MD N 845.10 Unspecified Site Of Foot Sprain 02/25/2012 MADL CYBER INCIDENT RESPONDER, ALBIN L 599.0 Urinary Tract Infection Site Not Specified 02/25/2012 MADL CYBER INCIDENT RESPONDER, ALBIN L 845.10 Unspecified Site Of Foot Sprain 02/25/2012 MADL CYBER INCIDENT RESPONDER, ALBIN L 599.0 Urinary Tract Infection Site Not Specified 02/25/2012 MADL CYBER INCIDENT RESPONDER, ALBIN L 845.10 Unspecified Site Of Foot [...] COCO K 719.46 KNEE PAIN 03/12/2012 MADL CYBER INCIDENT RESPONDER, ALBIN L 719.46 KNEE PAIN 03/12/2012 MADL CYBER INCIDENT RESPONDER, ALBIN L 719.46 KNEE PAIN 03/12/2012 BAH DO, COCO K 719.46 KNEE PAIN 03/12/2012 BAH DO, COCO K 719.46 KNEE PAIN 03/12/2012 DEANDRE CUEVAS MD N 719.46 KNEE PAIN 03/12/2012 BAH DO, COCO K 719.46 KNEE PAIN 03/12/2012 MADL CYBER INCIDENT RESPONDER, ALBIN L 719.46 KNEE PAIN 03/12/2012 BAH DO, COCO K 719.46 KNEE PAIN 03/12/2012 DEANDRE CUEVAS MD N 719.46 KNEE PAIN 03/12/2012 MADL CYBER INCIDENT RESPONDER, ALBIN L 719.46 KNEE PAIN 03/12/2012 MADL CYBER INCIDENT RESPONDER, ALBIN L 719.46 KNEE PAIN 03/12/2012 BAH DO, COCO K 719.46 KNEE PAIN 04/16/2012 780.2 SYNCOPE AND COLLAPSE 04/16/2012 786.2 COUGH 04/16/2012 CHARLENE RIEVRA, AHSAN T 780.2 SYNCOPE AND COLLAPSE 04/16/2012 AHSAN CHANG APRN 786.2 COUGH 04/16/2012 PAMELA CYBER INCIDENT RESPONDER, MALIK R 780.2 SYNCOPE AND COLLAPSE 04/16/2012 PAMELA CYBER INCIDENT RESPONDER, MALIK R 786.2 COUGH 04/16/2012 BAH DO, COCO K 780.2 SYNCOPE AND COLLAPSE 04/16/2012 BAH DO, COCO K 786.2 COUGH 04/16/2012 BAH DO, COCO K 780.2 SYNCOPE AND COLLAPSE 04/16/2012 BAH DO, COCO K 786.2 COUGH 04/16/2012 MADL CYBER INCIDENT RESPONDER, ALBIN L 780.2 SYNCOPE AND COLLAPSE 04/16/2012 MADL CYBER INCIDENT RESPONDER, ALBIN L 786.2 COUGH 04/16/2012 MADL CYBER INCIDENT RESPONDER, ALBIN L 780.2 SYNCOPE AND COLLAPSE 04/16/2012 MADL CYBER INCIDENT RESPONDER, ALBIN L 786.2 COUGH 04/16/2012 BAH DO, COCO K 780.2 SYNCOPE AND COLLAPSE 04/16/2012 BAH DO, COCO K 786.2 COUGH 04/16/2012 BAH DO, COCO K 780.2 SYNCOPE AND COLLAPSE 04/16/2012 BAH DO, COCO K 786.2 COUGH 04/16/2012 FAITH MALIN, DEANDRE N 780.2 SYNCOPE AND COLLAPSE 04/16/2012 DEANDRE CUEVAS MD N 786.2 COUGH 04/16/2012 BAH DO, COCO K 780.2 SYNCOPE AND COLLAPSE 04/16/2012 BAH DO, COCO K 786.2 COUGH 04/16/2012 MADL CYBER INCIDENT RESPONDER, ALBIN L 780.2 SYNCOPE AND COLLAPSE 04/16/2012 MADL CYBER INCIDENT RESPONDER, ALBIN L 786.2 COUGH 04/16/2012 BAH DO, COCO K 780.2 SYNCOPE AND COLLAPSE 04/16/2012 BAH DO, COCO K 786.2 COUGH 04/16/2012 DEANDRE CUEVAS MD N 780.2 SYNCOPE AND COLLAPSE 04/16/2012 DEANDRE CUEVAS MD N 786.2 COUGH 04/16/2012 MADL CYBER INCIDENT RESPONDER, ALBIN L 780.2 SYNCOPE AND COLLAPSE 04/16/2012 MADL CYBER INCIDENT RESPONDER, ALBIN L 786.2 COUGH 04/16/2012 MADL CYBER INCIDENT RESPONDER, ALBIN L 780.2 SYNCOPE AND COLLAPSE 04/16/2012 MADL CYBER INCIDENT RESPONDER, ALBIN L 786.2 COUGH 04/16/2012 BAH DO, COCO K 780.2 SYNCOPE AND COLLAPSE 04/16/2012 BAH , COCO K 786.2 COUGH 10/01/2013 HONEY SEPULVEDA MD Ot 724.2 LUMBAGO 10/01/2013 HONEY ESPULVEDA MD Ot 923.20 CONTUSION OF HAND(S) 10/01/2013 [...] SITE NOT SPECIFIED 12/03/2013 MALIK SANTIAGO APRN R 789.07 ABDOMINAL PAIN GENERALIZED 12/03/2013 COCO BAH DO 311 DEPRESSIVE DISORDER NOT ELSEWHERE CLASSIFIED 12/03/2013 BAH DO, COCO K 599.0 URINARY TRACT INFECTION SITE NOT SPECIFIED 12/03/2013 BAH DO, COCO K 789.07 ABDOMINAL PAIN GENERALIZED 12/03/2013 BAH DO, COCO K 311 DEPRESSIVE DISORDER NOT ELSEWHERE CLASSIFIED 12/03/2013 BAH DO, COCO K 599.0 URINARY TRACT INFECTION SITE NOT SPECIFIED 12/03/2013 BAH DO, COCO K 789.07 ABDOMINAL PAIN GENERALIZED 12/03/2013 MADL CYBER INCIDENT RESPONDER, ALBIN L 311 DEPRESSIVE DISORDER NOT ELSEWHERE CLASSIFIED 12/03/2013 MADL CYBER INCIDENT RESPONDER, ALBIN L 599.0 URINARY TRACT INFECTION SITE NOT SPECIFIED 12/03/2013 MADL CYBER INCIDENT RESPONDER, ALBIN L 789.07 ABDOMINAL PAIN GENERALIZED 12/03/2013 MADL CYBER INCIDENT RESPONDER, ALBIN L 311 DEPRESSIVE DISORDER NOT ELSEWHERE CLASSIFIED 12/03/2013 MADL CYBER INCIDENT RESPONDER, ALBIN L 599.0 URINARY TRACT INFECTION SITE NOT SPECIFIED 12/03/2013 MADL CYBER INCIDENT RESPONDER, ALBIN L 789.07 ABDOMINAL PAIN GENERALIZED 12/03/2013 [...] K 789.07 ABDOMINAL PAIN GENERALIZED 12/03/2013 MADL CYBER INCIDENT RESPONDER, ALBIN L 311 DEPRESSIVE DISORDER NOT ELSEWHERE CLASSIFIED 12/03/2013 MADL CYBER INCIDENT RESPONDER, ALBIN L 599.0 URINARY TRACT INFECTION SITE NOT SPECIFIED 12/03/2013 MADL CYBER INCIDENT RESPONDER, ALBIN L 789.07 ABDOMINAL PAIN GENERALIZED 12/03/2013 [...] N 789.07 ABDOMINAL PAIN GENERALIZED 12/03/2013 MADL CYBER INCIDENT RESPONDER, ALBIN L 311 DEPRESSIVE DISORDER NOT ELSEWHERE CLASSIFIED 12/03/2013 MADL CYBER INCIDENT RESPONDER, ALBIN L 599.0 URINARY TRACT INFECTION SITE NOT SPECIFIED 12/03/2013 MADL CYBER INCIDENT RESPONDER, ALBIN L 789.07 ABDOMINAL PAIN GENERALIZED 12/03/2013 MADL CYBER INCIDENT RESPONDER, ALBIN L 311 DEPRESSIVE DISORDER NOT ELSEWHERE CLASSIFIED 12/03/2013 MADL CYBER INCIDENT RESPONDER, ALBIN L 599.0 URINARY TRACT INFECTION SITE NOT SPECIFIED 12/03/2013 MADL CYBER INCIDENT RESPONDER, ALBIN L 789.07 ABDOMINAL PAIN GENERALIZED 12/03/2013 BAH DO, COCO K 311 DEPRESSIVE DISORDER NOT ELSEWHERE CLASSIFIED 12/03/2013 BAH DO, COCO K 599.0 URINARY TRACT INFECTION SITE NOT SPECIFIED 12/03/2013 BAH DO, COCO K 789.07 ABDOMINAL PAIN GENERALIZED 01/28/2014 MADL CYBER INCIDENT RESPONDER, ALBIN L 719.41 PAIN IN JOINT INVOLVING SHOULDER REGION 01/28/2014 MADL CYBER INCIDENT RESPONDER, ALBIN L 780.52 INSOMNIA UNSPECIFIED 01/28/2014 MADL CYBER INCIDENT RESPONDER, ALBIN L 788.1 DYSURIA 01/28/2014 MADL CYBER INCIDENT RESPONDER, ALBIN L 719.41 PAIN IN JOINT INVOLVING SHOULDER REGION 01/28/2014 MADL CYBER INCIDENT RESPONDER, ALBIN L 780.52 INSOMNIA UNSPECIFIED 01/28/2014 MADL CYBER INCIDENT RESPONDER, ALBIN L 788.1 DYSURIA 01/28/2014 BAH DO, [...] DO, COCO K 788.1 DYSURIA 01/28/2014 MADL CYBER INCIDENT RESPONDER, ALBIN L 719.41 PAIN IN JOINT INVOLVING SHOULDER REGION 01/28/2014 MADL CYBER INCIDENT RESPONDER, ALBIN L 780.52 INSOMNIA UNSPECIFIED 01/28/2014 MADL CYBER INCIDENT RESPONDER, ALBIN L 788.1 DYSURIA 01/28/2014 BAH DO, COCO K 719.41 PAIN IN JOINT INVOLVING SHOULDER REGION 01/28/2014 BAH DO, COCO K 780.52 INSOMNIA UNSPECIFIED 01/28/2014 BAH DO, COCO K 788.1 DYSURIA 01/28/2014 DEANDRE CUEVAS MD 719.41 PAIN IN JOINT INVOLVING SHOULDER REGION 01/28/2014 DEANDRE CUEVAS MD 780.52 INSOMNIA UNSPECIFIED 01/28/2014 DEANDRE CUEVAS MD 788.1 DYSURIA 01/28/2014 MADL CYBER INCIDENT RESPONDER, ALBIN L 719.41 PAIN IN JOINT INVOLVING SHOULDER REGION 01/28/2014 MADL CYBER INCIDENT RESPONDER, ALBIN L 780.52 INSOMNIA UNSPECIFIED 01/28/2014 MADL CYBER INCIDENT RESPONDER, ALBIN L 788.1 DYSURIA 01/28/2014 MADL CYBER INCIDENT RESPONDER, ALBIN L 719.41 PAIN IN JOINT INVOLVING SHOULDER REGION 01/28/2014 MADL CYBER INCIDENT RESPONDER, ALBIN L 780.52 INSOMNIA UNSPECIFIED 01/28/2014 MADL CYBER INCIDENT RESPONDER, ALBIN L 788.1 DYSURIA 01/28/2014 COCO BAH DO 719.41 PAIN IN JOINT INVOLVING SHOULDER REGION 01/28/2014 COCO BAH DO K 780.52 INSOMNIA UNSPECIFIED 01/28/2014 COCO BAH DO K 788.1 DYSURIA 03/26/2014 DEANDRE CUEVAS MD Ot [...] DO 381.01 ACUTE SEROUS OTITIS MEDIA 05/18/2014 MADL ALBIN RIVERA L 381.01 ACUTE SEROUS OTITIS MEDIA 05/18/2014 COCO BAH DO 381.01 ACUTE SEROUS OTITIS MEDIA 05/18/2014 DEANDRE CUEVAS MD 381.01 ACUTE SEROUS OTITIS MEDIA 05/18/2014 MADL ALBIN RIVERA L 381.01 ACUTE SEROUS OTITIS MEDIA 05/18/2014 MADL ALBIN RIVERA L 381.01 ACUTE SEROUS OTITIS MEDIA 05/18/2014 COCO BAH DO K 381.01 ACUTE SEROUS OTITIS MEDIA 05/20/2014 COCO BAH DO 357.2 DIABETIC PERPHERAL NEUROPATHY 05/20/2014 OC RIVERA, ALBIN L 357.2 DIABETIC PERPHERAL NEUROPATHY 05/20/2014 COCO BAH DO K 357.2 DIABETIC PERPHERAL NEUROPATHY 05/20/2014 DEANDRE CUEVAS MD 357.2 DIABETIC PERPHERAL NEUROPATHY 05/20/2014 CALLIEL CYBER INCIDENT RESPONDER, ALBIN L 357.2 DIABETIC PERPHERAL NEUROPATHY 05/20/2014 OC CYBER INCIDENT RESPONDER, ALBIN L 357.2 DIABETIC PERPHERAL NEUROPATHY 05/20/2014 [...] URIN TRACT INFECTION NOS 06/24/2014 LEANN CONTRERAS L Ot 780.4 DIZZINESS AND GIDDINESS 06/24/2014 LEANN CONTRERAS L Ot 784.0 HEADACHE 07/01/2014 OC RIVERA, ALBIN L 599.0 URINARY TRACT INFECTION 07/01/2014 MADAnnabelle RIVERA, ALBIN L 729.5 PAIN IN LIMB 07/01/2014 COCO BAH DO K 599.0 URINARY TRACT INFECTION 07/01/2014 COCO BAH DO K 729.5 PAIN IN LIMB 07/01/2014 DEANDRE CUEVAS MD N 599.0 URINARY TRACT INFECTION 07/01/2014 DEANDRE CUEVAS MD 729.5 PAIN IN LIMB 07/01/2014 MADL CYBER INCIDENT RESPONDER, ALBIN L 599.0 URINARY TRACT INFECTION 07/01/2014 MADAnnabelle CYBER INCIDENT RESPONDER, ALBIN L 729.5 PAIN IN LIMB 07/01/2014 MADL CYBER INCIDENT RESPONDER, ALBIN L 599.0 URINARY TRACT INFECTION 07/01/2014 MADL CYBER INCIDENT RESPONDER, ALBIN L 729.5 PAIN IN LIMB 07/01/2014 SABRINA BAH DOA K 599.0 URINARY TRACT INFECTION 07/01/2014 COCO BAH DO 729.5 PAIN IN LIMB 07/23/2014 Ot 611.72 07/24/2014 DEANDRE CUEVAS MD Ot 250.62 DIAB W NEURO MANIFEST, TYPE II OR UNSPEC 07/24/2014 DEANDRE CUEVAS MD N Ot 276.1 HYPOSMOLALITY 07/24/2014 DEANDRE CUEVAS MD N Ot 305.1 TOBACCO USE DISORDER 07/24/2014 DEANDRE CUEVAS MD N Ot 357.2 NEUROPATHY IN DIABETES 07/24/2014 DEANDRE CUEVAS MD N Ot 250.62 07/24/2014 DEANDRE CUEVAS MD N Ot 276.1 07/24/2014 DEANDRE CUEVAS MD Ot 305.1 07/24/2014 DEANDRE CUEVAS MD N Ot 357.2 08/26/2014 DEANDRE CUEVAS MD N 536.8 DYSPEPSIA AND OTHER SPECIFIED DISORDERS OF FUNCTION OF STOMACH 08/26/2014 ROMAN RENAE APRNWNYA L 536.8 DYSPEPSIA AND OTHER SPECIFIED DISORDERS OF FUNCTION OF STOMACH 08/26/2014 OC RIVERA, ALBIN L 536.8 DYSPEPSIA AND OTHER SPECIFIED DISORDERS OF FUNCTION OF STOMACH 08/26/2014 COCO BAH DO K 536.8 DYSPEPSIA AND OTHER SPECIFIED DISORDERS OF FUNCTION OF STOMACH 09/30/2014 MADAnnabelle RIVERA, ALBIN L 110.4 DERMATOPHYTOSIS OF FOOT 09/30/2014 CALLIEL CYBER INCIDENT RESPONDER, ALBIN L 780.79 OTHER MALAISE AND FATIGUE 09/30/2014 MADL CYBER INCIDENT RESPONDER, ALBIN L 110.4 DERMATOPHYTOSIS OF FOOT 09/30/2014 MADL CYBER INCIDENT RESPONDER, ALBIN L 780.79 OTHER MALAISE AND FATIGUE 09/30/2014 SABRINA BAH DOA K 110.4 DERMATOPHYTOSIS OF FOOT 09/30/2014 COCO BAH DO K 780.79 OTHER MALAISE AND FATIGUE 10/11/2014 CALLIEL NICOEL ALBIN L 250.42 DIABETES W/ NEPHROPATHY, TYPE 2 - UNCONTROLLED 10/11/2014 MADL CYBER INCIDENT RESPONDER, ALBIN L 250.42 DIABETES W/ NEPHROPATHY, TYPE 2 - UNCONTROLLED 10/11/2014 OCCO BAH DO 250.42 DIABETES W/ NEPHROPATHY, TYPE 2 - UNCONTROLLED 10/28/2014 ALBIN RENAE APRN 250.80 DIABETES WITH OTHER SPECIFIED MANIFESTATIONS TYPE II OR UNSPECIFIED TYPE NOT STATED UNCONTROLLED 10/28/2014 ALBIN RENAE APRN 250.80 DIABETES WITH OTHER SPECIFIED MANIFESTATIONS TYPE [...] ABDOMINAL PAIN UNSPECIFIED SITE 12/09/2014 ALBIN RENAE MACHINIST MATE Ot 571.8 12/09/2014 ALBIN RENAE MACHINIST MATE Ot 592.0 03/01/2015 LEANN CONTRERAS Ot 110.4 [...] LONG-TERM (CURRENT) USE OF INSULIN 03/01/2015 LEANN CONTRERAS Ot V58.69 OTH MED,LT,CURRENT USE 04/08/2015 BERT JASON APRN Ot 611.71 07/29/2015 Ot 611.72 07/29/2015 Ot 272.4 07/29/2015 Ot 305.1 07/29/2015 Ot 401.9 07/29/2015 Ot 786.50 07/29/2015 ALBIN RENAE MACHINIST MATE Ot 571.8 07/29/2015 CALLIEALBIN Alanis MACHINIST MATE Ot 592.0 07/29/2015 BERT JASON APRN Ot 611.71 08/18/2015 OCALBIN MACHINIST MATE Ot M79.662 08/30/2015 OCALBIN MACHINIST MATE Ot M79.662 12/09/2015 MANISHA OLIVIA MD Ot L02.32 FURUNCLE OF BUTTOCK 12/09/2015 MANISHA OLIVIA MD Ot L97.212 NON-PRESSURE CHRONIC ULCER OF RIGHT CALF 12/09/2015 MANISHA OLIVIA MD Ot L98.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 ULCER OF BUTTOCK [place] 12/20/2015 MANISHA OLIVIA MD, Ot L02.32 FURUNCLE OF BUTTOCK 12/20/2015 MANISHA OLIVIA MD Ot L97.212 NON-PRESSURE CHRONIC ULCER OF RIGHT CALF 12/20/2015 MANISHA OLIVIA MD Ot L98.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 ULCER OF BUTTOCK [place] 04/18/2017 Ot 272.4 HYPERLIPIDEMIA NEC/NOS 04/18/2017 Ot 305.1 TOBACCO USE DISORDER 04/18/2017 Ot 401.9 HYPERTENSION NOS 04/18/2017 Ot 786.50 CHEST PAIN NOS 04/18/2017 COALBIN MACHINIST MATE Ot 571.8 CHRONIC LIVER DIS NEC 04/18/2017 OCALBIN MACHINIST MATE Ot 592.0 CALCULUS OF KIDNEY 04/18/2017 BERT JASON APRN Ot 611.71 MASTODYNIA 04/18/2017 OCALBIN MACHINIST MATE Ot M79.662 PAIN IN LEFT LOWER LEG 04/18/2017 EDWIN ROSENBERG Ot E11.21 TYPE 2 DIABETES MELLITUS WITH DIABETIC N 04/18/2017 EDWIN ROSENBERGP Ot E11.65 TYPE 2 DIABETES MELLITUS WITH HYPERGLYCE 04/18/2017 EDWIN ROSENBERGP Ot F17.210 NICOTINE DEPENDENCE, CIGARETTES, UNCOMPL 04/18/2017 EDWIN ROSENBERGP Ot F32.9 MAJOR DEPRESSIVE DISORDER, SINGLE EPISOD 04/18/2017 EDWIN ROSENBERGP Ot F41.9 ANXIETY DISORDER, UNSPECIFIED 04/18/2017 EDWIN ROSENBERGP Ot I10 ESSENTIAL (PRIMARY) HYPERTENSION 04/18/2017 CHETEDWIN AguiarP Ot J45.909 UNSPECIFIED ASTHMA, UNCOMPLICATED 04/18/2017 CHETEDWIN AguiarP Ot K21.9 GASTRO-ESOPHAGEAL REFLUX DISEASE WITHOUT 04/18/2017 EDWIN ROSENBERGP Ot M19.90 UNSPECIFIED OSTEOARTHRITIS, UNSPECIFIED 04/18/2017 CHETEDWIN AguiarP Ot M25.562 PAIN IN LEFT KNEE 04/18/2017 CHETEDWIN AguiarP Ot W19.XXXA UNSPECIFIED FALL, INITIAL ENCOUNTER 04/18/2017 EDWIN ROSENBERGP Ot Z79.4 MCC (CURRENT) USE OF INSULIN 04/18/2017 CHETEDWIN AguiarP Ot Z87.19 PERSONAL HISTORY OF OTHER DISEASES [...] 786.50 CHEST PAIN NOS 04/18/2017 MADALBIN Alanis MACHINIST MATE Ot 571.8 CHRONIC LIVER DIS NEC 04/18/2017 ALBIN RENAE MACHINIST MATE Ot 592.0 CALCULUS OF KIDNEY 04/18/2017 ERENBERT A CYBER INCIDENT RESPONDER Ot 611.71 MASTODYNIA 04/18/2017 ALBIN RENAE MACHINIST MATE Ot M79.662 PAIN IN LEFT LOWER LEG 04/22/2017 EDWIN ROSENBERGP Ot E11.21 TYPE 2 DIABETES MELLITUS WITH DIABETIC N 04/22/2017 EDWIN ROSENBERG MACHINIST MATE Ot E11.65 TYPE 2 DIABETES MELLITUS WITH HYPERGLYCE 04/22/2017 EDWIN ROSENBERG MACHINIST MATE Ot F17.210 NICOTINE DEPENDENCE, CIGARETTES, UNCOMPL 04/22/2017 EDWIN ROSENBERG MACHINIST MATE Ot F32.9 MAJOR DEPRESSIVE DISORDER, SINGLE EPISOD 04/22/2017 EDWIN ROSENBERG MACHINIST MATE Ot F41.9 ANXIETY DISORDER, UNSPECIFIED 04/22/2017 EDWIN ROSENBERGP Ot I10 ESSENTIAL (PRIMARY) HYPERTENSION 04/22/2017 CHETEDWIN Aguiar Ot J45.909 UNSPECIFIED ASTHMA, UNCOMPLICATED 04/22/2017 CHETEDWIN Aguiar Ot K21.9 GASTRO-ESOPHAGEAL REFLUX DISEASE WITHOUT 04/22/2017 CHETEDWIN Aguiar Ot M19.90 UNSPECIFIED OSTEOARTHRITIS, UNSPECIFIED 04/22/2017 CHETEDWIN Ot M25.562 PAIN IN LEFT KNEE 04/22/2017 CHETEDWIN Ot W19.XXXA UNSPECIFIED FALL, INITIAL ENCOUNTER 04/22/2017 CHETEDWIN Aguiar Ot Z79.4 EAR SPECIALIST (CURRENT) USE OF INSULIN 04/22/2017 CHETEDWIN Ot Z87.19 PERSONAL HISTORY OF OTHER DISEASES OF TH 04/22/2017 CHET EDWIN MACHINIST MATE Ot Z90.49 ACQUIRED ABSENCE OF OTHER SPECIFIED PART 04/22/2017 CHETEDWIN Aguiar Ot Z90.711 ACQUIRED ABSENCE OF UTERUS WITH REMAININ 04/22/2017 CHETEDWIN Aguiar Ot Z91.81 HISTORY OF FALLING 06/26/2017 HONEY SEPULVEDA MD Ot E11.40 TYPE 2 DIABETES MELLITUS WITH DIABETIC N 06/26/2017 HONEY SEPULVEDA MD Ot E11.65 TYPE 2 DIABETES MELLITUS WITH HYPERGLYCE 06/26/2017 HONEY SEPULVEDA MD Ot F17.210 NICOTINE DEPENDENCE, CIGARETTES, UNCOMPL 06/26/2017 HONEY SEPULVEDA MD Ot F32.9 MAJOR DEPRESSIVE DISORDER, SINGLE EPISOD 06/26/2017 HONEY SEPULVEDA MD Ot F41.9 ANXIETY DISORDER, UNSPECIFIED 06/26/2017 HONEY SEPULVEDA MD Ot H93.19 TINNITUS, UNSPECIFIED EAR 06/26/2017 HONEY SEPULVEDA MD Ot I11.0 HYPERTENSIVE HEART DISEASE WITH HEART FA 06/26/2017 HONEY SEPULVEDA MD, Ot I50.9 HEART FAILURE, UNSPECIFIED 06/26/2017 HONEY SEPULVEDA MD, Ot J45.909 UNSPECIFIED ASTHMA, UNCOMPLICATED 06/26/2017 HONEY SEPULVEDA MD, Ot K21.9 GASTRO-ESOPHAGEAL REFLUX DISEASE WITHOUT 06/26/2017 HONEY SEPULVEDA MD Ot M19.91 PRIMARY OSTEOARTHRITIS, UNSPECIFIED SITE 06/26/2017 HONEY SEPULVEDA MD Ot M62.81 MUSCLE WEAKNESS (GENERALIZED) 06/26/2017 HONEY SEPULVEDA MD, Ot R40.0 SOMNOLENCE 06/26/2017 HONEY SEPULVEDA MD Ot R41.0 DISORIENTATION, UNSPECIFIED 06/26/2017 HONEY SEPULVEDA MD, Ot R42 DIZZINESS AND GIDDINESS 06/26/2017 HONEY SEPULVEDA MD Ot R47.81 SLURRED SPEECH 06/26/2017 HONEY SEPULVEDA MD Ot Z79.01 EAR SPECIALIST (CURRENT) USE OF ANTICOAGULANT 06/26/2017 HONEY SEPULVEDA MD Ot Z79.4 MCC (CURRENT) USE OF INSULIN 06/26/2017 HONEY SEPULVEDA MD, Ot Z87.19 PERSONAL HISTORY OF OTHER DISEASES OF TH 06/26/2017 HONEY SEPULVEDA MD, Ot Z87.440 PERSONAL HISTORY OF URINARY (TRACT) INFE 06/26/2017 HONEY SEPULVEDA MD Ot E11.40 TYPE 2 DIABETES MELLITUS WITH DIABETIC N 06/26/2017 HONEY SEPULVEDA MD Ot E11.65 TYPE 2 DIABETES MELLITUS WITH HYPERGLYCE 06/26/2017 HONEY SEPULVEDA MD Ot F17.210 NICOTINE DEPENDENCE, CIGARETTES, UNCOMPL 06/26/2017 HONEY SEPULVEDA MD Ot F32.9 MAJOR DEPRESSIVE DISORDER, SINGLE EPISOD 06/26/2017 HONEY SEPULVEDA MD Ot F41.9 ANXIETY DISORDER, UNSPECIFIED 06/26/2017 HONEY SEPULVEDA MD Ot H93.19 TINNITUS, UNSPECIFIED EAR 06/26/2017 HONEY SEPULVEDA MD Ot I11.0 HYPERTENSIVE HEART DISEASE WITH HEART FA 06/26/2017 HONEY SEPULVEDA MD Ot I50.9 HEART FAILURE, UNSPECIFIED 06/26/2017 HONEY SEPULVEDA MD Ot J45.909 UNSPECIFIED ASTHMA, UNCOMPLICATED 06/26/2017 HONEY SEPULVEDA MD Ot K21.9 GASTRO-ESOPHAGEAL REFLUX DISEASE WITHOUT 06/26/2017 HONEY SEPULVEDA MD Ot M19.91 PRIMARY OSTEOARTHRITIS, UNSPECIFIED SITE 06/26/2017 HONEY SEPULVEDA MD Ot M62.81 MUSCLE WEAKNESS (GENERALIZED) 06/26/2017 HONEY SEPULVEDA MD Ot R40.0 SOMNOLENCE 06/26/2017 HONEY SEPULVEDA MD Ot R41.0 DISORIENTATION, UNSPECIFIED 06/26/2017 HONEY SEPULVEDA MD, Ot R42 DIZZINESS AND GIDDINESS 06/26/2017 HONEY SEPULVEDA MD Ot R47.81 SLURRED SPEECH 06/26/2017 HONEY SEPULVEDA MD, Ot Z79.01 MCC (CURRENT) USE OF ANTICOAGULANT 06/26/2017 HONEY SEPULVEDA MD Ot Z79.4 MCC (CURRENT) USE OF INSULIN 06/26/2017 HONEY SEPULVEDA MD Ot Z87.19 PERSONAL HISTORY OF OTHER DISEASES OF TH 06/26/2017 HONEY SEPULVEDA MD Ot Z87.440 PERSONAL HISTORY OF URINARY (TRACT) INFE 06/26/2017 HONEY SEPULVEDA MD Ot E11.40 TYPE 2 DIABETES MELLITUS WITH DIABETIC N 06/26/2017 HONEY SEPULVEDA MD Ot E11.65 TYPE 2 DIABETES MELLITUS WITH HYPERGLYCE 06/26/2017 HONEY SEPULVEDA MD Ot F17.210 NICOTINE DEPENDENCE, CIGARETTES, UNCOMPL 06/26/2017 HONEY SEPULVEDA MD Ot F32.9 MAJOR DEPRESSIVE DISORDER, SINGLE EPISOD 06/26/2017 HONEY SEPULVEDA MD Ot F41.9 ANXIETY DISORDER, UNSPECIFIED 06/26/2017 HONEY SEPULVEDA MD Ot H93.19 TINNITUS, UNSPECIFIED EAR 06/26/2017 HONEY SEPULVEDA MD Ot I11.0 HYPERTENSIVE HEART DISEASE WITH HEART FA 06/26/2017 HONEY SEPULVEDA MD Ot I50.9 HEART FAILURE, UNSPECIFIED 06/26/2017 HONEY SEPULVEDA MD Ot J45.909 UNSPECIFIED ASTHMA, UNCOMPLICATED 06/26/2017 HONEY SEPULVEDA MD Ot K21.9 GASTRO-ESOPHAGEAL REFLUX DISEASE WITHOUT 06/26/2017 HONEY SEPULVEDA MD Ot M19.91 PRIMARY OSTEOARTHRITIS, UNSPECIFIED SITE 06/26/2017 HONEY SEPULVEDA MD Ot M62.81 MUSCLE WEAKNESS (GENERALIZED) 06/26/2017 HONEY SEPULVEDA MD Ot R40.0 SOMNOLENCE 06/26/2017 HONEY SEPULVEDA MD Ot R41.0 DISORIENTATION, UNSPECIFIED 06/26/2017 HONEY SEPULVEDA MD Ot R42 DIZZINESS AND GIDDINESS 06/26/2017 HONEY SEPULVEDA MD Ot R47.81 SLURRED SPEECH 06/26/2017 HONEY SEPULVEDA MD Ot Z79.01 MCC (CURRENT) USE OF ANTICOAGULANT 06/26/2017 HONEY SEPULVEDA MD, Ot Z79.4 MCC (CURRENT) USE OF INSULIN 06/26/2017 HONEY SEPULVEDA MD, Ot Z87.19 PERSONAL HISTORY OF OTHER DISEASES OF TH 06/26/2017 HONEY SEPULVEDA MD, Ot Z87.440 PERSONAL HISTORY OF URINARY (TRACT) INFE 06/27/2017 HONEY SEPULVEDA MD, Ot E11.40 TYPE 2 DIABETES MELLITUS WITH DIABETIC N 06/27/2017 HONEY SEPULVEDA MD, Ot E11.65 TYPE 2 DIABETES MELLITUS WITH HYPERGLYCE 06/27/2017 HONEY SEPULVEDA MD, Ot F17.210 NICOTINE DEPENDENCE, CIGARETTES, UNCOMPL 06/27/2017 HONEY SEPULVEDA MD, Ot F32.9 MAJOR DEPRESSIVE DISORDER, SINGLE EPISOD 06/27/2017 HONEY SEPULVEDA MD, Ot F41.9 ANXIETY DISORDER, UNSPECIFIED 06/27/2017 HONEY SEPULVEDA MD, Ot H93.19 TINNITUS, UNSPECIFIED EAR 06/27/2017 HONEY SEPULVEDA MD, Ot I11.0 HYPERTENSIVE HEART DISEASE WITH HEART FA 06/27/2017 HONEY SEPULVEDA MD, Ot I50.9 HEART FAILURE, UNSPECIFIED 06/27/2017 HONEY SEPULVEDA MD, Ot J45.909 UNSPECIFIED ASTHMA, UNCOMPLICATED 06/27/2017 HONEY SEPULVEDA MD, Ot K21.9 GASTRO-ESOPHAGEAL REFLUX DISEASE WITHOUT 06/27/2017 HONEY SEPULVEDA MD Ot M19.91 PRIMARY OSTEOARTHRITIS, UNSPECIFIED SITE 06/27/2017 HONEY SEPULVEDA MD Ot M62.81 MUSCLE WEAKNESS (GENERALIZED) 06/27/2017 HONEY SEPULVEDA MD, Ot R40.0 SOMNOLENCE 06/27/2017 HONEY SEPULVEDA MD, Ot R41.0 DISORIENTATION, UNSPECIFIED 06/27/2017 HONEY SEPULVEDA MD, Ot R42 DIZZINESS AND GIDDINESS 06/27/2017 HONEY SEPULVEDA MD, Ot R47.81 SLURRED SPEECH 06/27/2017 HONEY SEPULVEDA MD, Ot Z79.01 EAR SPECIALIST (CURRENT) USE OF ANTICOAGULANT 06/27/2017 HONEY SEPULVEDA MD, Ot Z79.4 MCC (CURRENT) USE OF INSULIN 06/27/2017 HONEY SEPULVEDA MD, Ot Z87.19 PERSONAL HISTORY OF OTHER DISEASES OF TH 06/27/2017 HONEY SEPULVEDA MD, Ot Z87.440 PERSONAL HISTORY OF URINARY (TRACT) INFE 06/27/2017 HONEY SEPULVEDA MD, Ot E11.40 TYPE 2 DIABETES MELLITUS WITH DIABETIC N 06/27/2017 HONEY SEPULVEDA MD, Ot E11.65 TYPE 2 DIABETES MELLITUS WITH HYPERGLYCE 06/27/2017 HONEY SEPULVEDA MD Ot E78.00 PURE HYPERCHOLESTEROLEMIA, UNSPECIFIED 06/27/2017 HONEY SEPULVEDA MD Ot F17.210 NICOTINE DEPENDENCE, CIGARETTES, UNCOMPL 06/27/2017 HONEY SEPULVEDA MD Ot F32.9 MAJOR DEPRESSIVE DISORDER, SINGLE EPISOD 06/27/2017 HONEY SEPULVEDA MD, Ot F41.9 ANXIETY DISORDER, UNSPECIFIED 06/27/2017 HONEY SEPULVEDA MD Ot G89.29 OTHER CHRONIC PAIN 06/27/2017 HONEY SEPULVEDA MD, Ot H93.19 TINNITUS, UNSPECIFIED EAR 06/27/2017 HONEY SEPULVEDA MD Ot I10 ESSENTIAL (PRIMARY) HYPERTENSION 06/27/2017 HONEY SEPULVEDA MD Ot I63.9 CEREBRAL INFARCTION, UNSPECIFIED 06/27/2017 HONEY SEPULVEDA MD, Ot J44.9 CHRONIC OBSTRUCTIVE PULMONARY DISEASE, U 06/27/2017 HONEY SEPULVEDA MD Ot J45.909 UNSPECIFIED ASTHMA, UNCOMPLICATED 06/27/2017 HONEY SEPULVEDA MD Ot K21.9 GASTRO-ESOPHAGEAL REFLUX DISEASE WITHOUT 06/27/2017 HONEY SEPULVEDA MD Ot M19.91 PRIMARY OSTEOARTHRITIS, UNSPECIFIED SITE 06/27/2017 HONEY SEPULVEDA MD Ot M54.9 DORSALGIA, UNSPECIFIED 06/27/2017 HONEY SEPULVEDA MD Ot M62.81 MUSCLE WEAKNESS (GENERALIZED) 06/27/2017 HONEY SEPULVEDA MD Ot R41.0 DISORIENTATION, UNSPECIFIED 06/27/2017 HONEY SEPULVEDA MD Ot R42 DIZZINESS AND GIDDINESS 06/27/2017 HONEY SEPULVEDA MD Ot R47.81 SLURRED SPEECH 06/27/2017 HONEY SEPULVEDA MD Ot Z79.01 MCC (CURRENT) USE OF ANTICOAGULANT 06/27/2017 HONEY SEPULVEDA MD Ot Z79.4 MCC (CURRENT) USE OF INSULIN 06/27/2017 HONEY SEPULVEDA MD, Ot Z87.19 PERSONAL HISTORY OF OTHER DISEASES OF TH 06/27/2017 HONEY SEPULVEDA MD Ot Z87.440 PERSONAL HISTORY OF URINARY (TRACT) INFE 06/27/2017 HONEY SEPULVEDA MD Ot Z99.81 DEPENDENCE ON SUPPLEMENTAL OXYGEN 07/02/2017 Alan BAILEY MD Ot I50.9 HEART FAILURE, UNSPECIFIED 07/02/2017 Alan BAILEY MD Ot Z53.29 PROC/TRTMT NOT CRD OUT BEC PT DECISION F 11/01/2017 Alan BAILEY MD Ot E13.9 OTHER SPECIFIED DIABETES MELLITUS WITHOU 11/01/2017 Alan BAILEY MD Ot E78.2 MIXED HYPERLIPIDEMIA 11/01/2017 lAan BAILEY MD Ot I10 ESSENTIAL (PRIMARY) HYPERTENSION 11/01/2017 Alan BAILEY MD Ot R06.00 DYSPNEA, UNSPECIFIED 11/01/2017 Alan BAILEY MD Ot R07.9 CHEST PAIN, UNSPECIFIED 11/05/2017 Ot 272.4 HYPERLIPIDEMIA NEC/NOS 11/05/2017 Ot 305.1 TOBACCO USE DISORDER 11/05/2017 Ot 401.9 HYPERTENSION NOS 11/05/2017 Ot 786.50 CHEST PAIN NOS 11/05/2017 MADL, ALBIN L MACHINIST MATE Ot 571.8 CHRONIC LIVER DIS NEC 11/05/2017 MADL, ALBIN L MACHINIST MATE Ot 592.0 CALCULUS OF KIDNEY 11/05/2017 BERT JASON CYBER INCIDENT RESPONDER Ot 611.71 MASTODYNIA 11/05/2017 MADL, ALBIN L MACHINIST MATE Ot M79.662 PAIN IN LEFT LOWER LEG 11/05/2017 Alan BAILEY MD Ot I50.9 HEART FAILURE, UNSPECIFIED 11/05/2017 Alan BAILEY MD Ot Z53.29 PROC/TRTMT NOT CRD OUT BEC PT DECISION F 11/05/2017 Alan BAILEY MD Ot E13.9 OTHER SPECIFIED DIABETES MELLITUS WITHOU 11/05/2017 Alan BAILEY MD Ot E78.2 MIXED HYPERLIPIDEMIA 11/05/2017 Alan BAILEY MD Ot I10 ESSENTIAL (PRIMARY) HYPERTENSION 11/05/2017 Alan BAILEY MD Ot R06.00 DYSPNEA, UNSPECIFIED 11/05/2017 Alan BAILEY MD Ot R07.9 CHEST PAIN, UNSPECIFIED 11/06/2017 Alan BAILEY MD Ot E13.9 OTHER SPECIFIED DIABETES MELLITUS WITHOU 11/06/2017 Alan BAILEY MD Ot E78.2 MIXED HYPERLIPIDEMIA 11/06/2017 Alan BAIELY MD Ot I10 ESSENTIAL (PRIMARY) HYPERTENSION 11/06/2017 Alan BAILEY MD Ot R06.00 DYSPNEA, UNSPECIFIED 11/06/2017 Alan BAILYE MD Ot R07.9 CHEST PAIN, UNSPECIFIED 11/07/2017 Alan BAILEY MD Ot E11.40 TYPE 2 DIABETES MELLITUS WITH DIABETIC N 11/07/2017 Alan BAILEY MD Ot E66.01 MORBID (SEVERE) OBESITY DUE TO EXCESS CA 11/07/2017 Alan BAILEY MD Ot E78.2 MIXED HYPERLIPIDEMIA 11/07/2017 Alan BAILEY MD Ot F17.210 NICOTINE DEPENDENCE, CIGARETTES, UNCOMPL 11/07/2017 Alan BAILEY MD Ot F32.9 MAJOR DEPRESSIVE DISORDER, SINGLE EPISOD 11/07/2017 Alan BAILEY MD Ot I10 ESSENTIAL (PRIMARY) HYPERTENSION 11/07/2017 Alan BAILEY MD Ot I25.10 ATHSCL HEART DISEASE OF [place] CORONARY 11/07/2017 Alan BAILEY MD Ot J45.909 UNSPECIFIED ASTHMA, UNCOMPLICATED 11/07/2017 Alan BAILEY MD Ot M19.91 PRIMARY OSTEOARTHRITIS, UNSPECIFIED SITE 11/07/2017 Alan BAILEY MD Ot R06.02 SHORTNESS OF BREATH 11/07/2017 Alan BAILEY MD Ot R07.9 CHEST PAIN, UNSPECIFIED 11/07/2017 Alan BAILEY MD Ot R94.39 ABNORMAL RESULT OF OTHER CARDIOVASCULAR 11/07/2017 Alan BAILEY MD Ot Z68.41 BODY MASS INDEX (BMI) 40.0-44.9, ADULT 11/07/2017 Alan BAILEY MD, Ot Z79.01 MCC (CURRENT) USE OF ANTICOAGULANT 11/07/2017 Alan BAILEY MD, Ot Z79.4 EAR SPECIALIST (CURRENT) USE OF INSULIN 11/07/2017 Alan BAILEY MD, Ot Z79.899 OTHER MCC (CURRENT) DRUG THERAPY 11/07/2017 Alan BAILEY MD, Ot Z86.711 PERSONAL HISTORY OF PULMONARY EMBOLISM 11/07/2017 Alan BAILEY MD, Ot Z86.73 PRSNL HX OF TIA (TIA), AND CEREB INFRC W 11/08/2017 Alan BAILEY MD Ot E11.40 TYPE 2 DIABETES MELLITUS WITH DIABETIC N 11/08/2017 Alan BAILEY MD, Ot E66.01 MORBID (SEVERE) OBESITY DUE TO EXCESS CA 11/08/2017 Alan BAILEY MD Ot E78.2 MIXED HYPERLIPIDEMIA 11/08/2017 Alan BAILEY MD Ot F17.210 NICOTINE DEPENDENCE, CIGARETTES, UNCOMPL 11/08/2017 Alan BAILEY MD, Ot F32.9 MAJOR DEPRESSIVE DISORDER, SINGLE EPISOD 11/08/2017 Alan BAILEY MD Ot I10 ESSENTIAL (PRIMARY) HYPERTENSION 11/08/2017 Alan BAILEY MD, Ot I25.10 ATHSCL HEART DISEASE OF [place] CORONARY 11/08/2017 Alan BAILEY MD, Ot J45.909 UNSPECIFIED ASTHMA, UNCOMPLICATED 11/08/2017 Alan BAILEY MD Ot M19.91 PRIMARY OSTEOARTHRITIS, UNSPECIFIED SITE 11/08/2017 Alan BAILEY MD Ot R06.02 SHORTNESS OF BREATH 11/08/2017 Alan BAILEY MD Ot R07.9 CHEST PAIN, UNSPECIFIED 11/08/2017 Alan BAILEY MD Ot R94.39 ABNORMAL RESULT OF OTHER CARDIOVASCULAR 11/08/2017 Alan BAILEY MD, Ot Z68.41 BODY MASS INDEX (BMI) 40.0-44.9, ADULT 11/08/2017 Alan BAILEY MD, Ot Z79.01 EAR SPECIALIST (CURRENT) USE OF ANTICOAGULANT 11/08/2017 Alan BAILEY MD, Ot Z79.4 EAR SPECIALIST (CURRENT) USE OF INSULIN 11/08/2017 Alan BAILEY MD, Ot Z79.899 OTHER EAR SPECIALIST (CURRENT) DRUG THERAPY 11/08/2017 Alan BAILEY MD, Ot Z86.711 PERSONAL HISTORY OF PULMONARY EMBOLISM 11/08/2017 Alan BAILEY MD, Ot Z86.73 PRSNL HX OF TIA (TIA), AND CEREB INFRC W 11/29/2017 Alan BAILEY MD, Ot E13.9 OTHER SPECIFIED DIABETES MELLITUS WITHOU 11/29/2017 Alan BAILEY MD, Ot E78.2 MIXED HYPERLIPIDEMIA 11/29/2017 Alan BAILEY MD, Ot I10 ESSENTIAL (PRIMARY) HYPERTENSION 11/29/2017 Alan BAILEY MD, Ot R06.00 DYSPNEA, UNSPECIFIED 11/29/2017 Alan BAILEY MD, Ot R07.9 CHEST PAIN, UNSPECIFIED Procedures Code Description [place] [address] ROUTINE VENIPUNCTURE 12/03/2013 58092 UA LONG DIP 12/03/2013 38130 CBC 12/03/2013 0450688 GFR CALC (RESULT ONLY) 12/03/2013 83675 CMP 12/03/2013 38150 A1C (RML) 12/03/2013 66417 LIPASE 12/03/2013 57288 CULTURE URINE 12/06/2013 11495 UA W/ CULTURE IF INDICATED 12/24/2013 05151 CULTURE URINE 12/29/2013 24475 ROUTINE VENIPUNCTURE 01/14/2014 75372 MICRO ALBUMIN-IN HOUSE 01/14/2014 2946392 GFR CALC (RESULT ONLY) 01/15/2014 37264 BMP 01/15/2014 90124 MICROALBUMIN 01/15/2014 10121 XRAY SHOULDER RIGHT COMP 2 VIEWS 01/28/2014 97687 XRAY ELBOW R 2 VIEWS 01/28/2014 11926 UA W/ CULTURE IF INDICATED 01/28/2014 93357 A1C (IN-HOUSE) 03/01/2014 87969 EKG, TRACING 03/30/2014 89785 OXIMETRY 03/30/2014 56620 ROUTINE VENIPUNCTURE 05/18/2014 19888 CBC 05/18/2014 [id number] GFR CALC (RESULT ONLY) 05/18/2014 66342 CMP 05/18/2014 33695 BNP 05/19/2014 51382 ROUTINE VENIPUNCTURE 07/01/2014 27865 XRAY FOOT RIGHT 2 VIEWS 07/01/2014 49456 CULTURE URINE 07/01/2014 22292 A1C (IN-HOUSE) 07/01/2014 1229878 GFR CALC (RESULT ONLY) 07/01/2014 07352 CMP 07/01/2014 37568 ROUTINE VENIPUNCTURE 08/26/2014 2010192 GFR CALC (RESULT ONLY) 08/26/2014 28867 CMP 08/26/[address] ABDOMEN W/O CONTRAST 11/17/2014 Results Test Result Range Capillary blood glucose measurement by glucometer (mass/volume) - 04/18/17 19: 19 Capillary blood glucose measurement by glucometer (mass/volume) 399 mg/dL 70-110 Complete blood count (CBC) with automated white blood cell (WBC) differential - 06/25/17 16:40 Blood leukocytes automated count (number/volume) 15.0 10*3/uL 4.3-11.0 Blood erythrocytes automated count (number/volume) 5.05 10*6/uL 4.35-5.85 Venous blood hemoglobin measurement (mass/volume) 14.4 [...] Automated blood platelet mean volume measurement 12.8 [foz_us] 7.4-10.4 Automated blood neutrophils/100 leukocytes 70 % [...] blood basophil count (count/volume) 0.1 10*3/uL 0.0-0.1 PT panel in platelet poor plasma by coagulation assay - 06/25/17 16:40 Prothrombin time (PT) in platelet poor plasma by coagulation assay 14.7 s 12.2-14.7 INR in platelet poor plasma or blood by coagulation assay 1.1 0.8-1.4 Activated partial thromboplastin time (aPTT) in platelet poor plasma bycoagulation assay - 06/25/17 16:40 Activated partial thromboplastin time (aPTT) in platelet poor plasma bycoagulation assay 33 s 24-35 Fibrin D-dimer FEU measurement in platelet poor plasma (mass/volume) - 16:40 Fibrin D-dimer FEU measurement in platelet poor plasma (mass/volume) 0.30 ug/mL 0.00-0.49 Comprehensive metabolic panel - 06/25/17 16:40 Serum or plasma sodium measurement (moles/volume) 135 mmol/L 135-145 Serum or plasma potassium measurement (moles/volume) 4.4 mmol/L 3.6-5.0 Serum or plasma chloride measurement (moles/volume) 95 mmol/L 98-107 Carbon dioxide 27 mmol/L 21-32 Serum or plasma anion gap determination (moles/volume) 13 mmol/L 5-14 Serum or plasma urea nitrogen measurement (mass/volume) 18 mg/dL 7-18 Serum or plasma creatinine measurement (mass/volume) 0.86 mg/dL 0.60-1.30 Serum or plasma urea nitrogen/creatinine mass ratio 21 NRG Serum or plasma creatinine measurement with calculation of estimated glomerular filtration rate > NRG Serum or plasma glucose measurement (mass/volume) 304 mg/dL 70-105 Serum or plasma calcium measurement (mass/volume) 9.6 mg/dL 8.5-10.1 Serum or plasma total bilirubin measurement (mass/volume) 0.3 mg/dL 0.1-1.0 Serum or plasma alkaline phosphatase measurement (enzymatic activity/volume) 81 U/L 40-136 Serum or plasma aspartate aminotransferase measurement (enzymatic activity/ volume) 30 U/L 5-34 Serum or plasma alanine aminotransferase measurement (enzymatic activity/volume ) 26 U/L 0-55 Serum or plasma protein measurement (mass/volume) 8.0 g/dL 6.4-8.2 Serum or plasma albumin measurement (mass/volume) 3.4 g/dL 3.2-4.5 Blood manual differential performed detection - 06/25/17 16:40 Blood monocytes/100 leukocytes 5 % NRG Manual blood segmented neutrophils/100 leukocytes 60 % NRG Blood band neutrophils/100 leukocytes 0 % NRG Manual blood lymphocytes/100 leukocytes 32 % NRG Manual eosinophils/100 leukocytes in nose 2 % NRG Manual blood basophils/100 leukocytes 1 % NRG Blood erythrocyte morphology finding identification NORMAL NRG Serum or plasma troponin i.cardiac measurement (mass/volume) - 06/25/17 16:40 Serum or plasma troponin i.cardiac measurement (mass/volume) < ng/ mL <0.30 Serum or plasma lithium measurement (moles/volume) - 06/25/17 16:40 BNP level < pg/mL <100.0 Complete urinalysis with reflex to culture - 06/25/17 16:55 Urine color determination YELLOW NRG Urine clarity determination CLEAR NRG Urine pH measurement by test strip 5 5-9 Specific gravity of urine by test strip 1.010 1.016- 1.022 Urine protein assay by test strip, semi-quantitative NEGATIVE NEGATIVE Urine glucose detection by automated test strip 4+ NEGATIVE Erythrocytes detection in urine sediment by light microscopy NEGATIVE NEGATIVE Urine ketones detection by automated test strip NEGATIVE NEGATIVE Urine nitrite detection by test strip NEGATIVE NEGATIVE Urine total bilirubin detection by test strip NEGATIVE NEGATIVE Urine urobilinogen measurement by automated test strip (mass/volume) NORMAL NORMAL Urine leukocyte esterase detection by dipstick NEGATIVE NEGATIVE Automated urine sediment erythrocyte count by microscopy (number/high power field) NONE NRG Automated urine sediment leukocyte count by microscopy (number/high power field ) [HPF] NRG Bacteria detection in urine sediment by light microscopy NONE NRG Squamous epithelial cells detection in urine sediment by light microscopy RARE NRG Crystals detection in urine sediment by light microscopy NONE NRG Casts detection in urine sediment by light microscopy NONE NRG Mucus detection in urine sediment by light microscopy NEGATIVE NRG Complete urinalysis with reflex to culture NO NRG Capillary blood glucose measurement by glucometer (mass/volume) - 06/25/17 20: 31 Capillary blood glucose measurement by glucometer (mass/volume) 194 mg/dL 70-110 Capillary blood glucose measurement by glucometer (mass/volume) - 06/25/17 23: 30 Capillary blood glucose measurement by glucometer (mass/volume) 207 mg/dL 70-110 Capillary blood glucose measurement by glucometer (mass/volume) - 06/26/17 05: 14 Capillary blood glucose measurement by glucometer (mass/volume) 288 mg/dL 70-110 Complete blood count (CBC) with automated white blood cell (WBC) differential - 06/26/17 05:34 Blood leukocytes automated count (number/volume) 12.8 10*3/uL 4.3-11.0 Blood erythrocytes automated count (number/volume) 4.87 10*6/uL 4.35-5.85 Venous blood hemoglobin measurement (mass/volume) 13.5 g/dL 11.5-16.0 Blood hematocrit (volume fraction) 43 % 35-52 Automated erythrocyte mean corpuscular volume 88 [foz_us] 80-99 Automated erythrocyte mean corpuscular hemoglobin (mass per erythrocyte) 28 pg 25-34 Automated erythrocyte mean corpuscular hemoglobin concentration measurement ( mass/volume) 31 g/dL 32-36 Automated erythrocyte distribution width ratio 14.7 % 10.0-14.5 Automated blood platelet count (count/volume) 230 10*3/uL 130-400 Automated blood platelet mean volume measurement 12.7 [foz_us] 7.4-10.4 Automated blood neutrophils/100 leukocytes 70 % 42-75 Automated blood lymphocytes/100 leukocytes 20 % 12-44 Blood monocytes/100 leukocytes 7 % 0-12 Automated blood eosinophils/100 leukocytes 3 % 0-10 Automated blood basophils/100 leukocytes 1 % 0-10 Blood neutrophils automated count (number/volume) 8.9 10*3 1.8-7.8 Blood lymphocytes automated count (number/volume) 2.6 10*3 1.0-4.0 Blood monocytes automated count (number/volume) 0.9 10*3 0.0-1.0 Automated eosinophil count 0.3 10*3/uL 0.0-0.3 Automated blood basophil count (count/volume) 0.1 10*3/uL 0.0-0.1 Comprehensive metabolic panel - 06/26/17 05:34 Serum or plasma sodium measurement (moles/volume) 138 mmol/L 135-145 Serum or plasma potassium measurement (moles/volume) 3.6 mmol/L 3.6-5.0 Serum or plasma chloride measurement (moles/volume) 99 mmol/L 98-107 Carbon dioxide 27 mmol/L 21-32 Serum or plasma anion gap determination (moles/volume) 12 mmol/L 5-14 Serum or plasma urea nitrogen measurement (mass/volume) 16 mg/dL 7-18 Serum or plasma creatinine measurement (mass/volume) 0.77 mg/dL 0.60-1.30 Serum or plasma urea nitrogen/creatinine mass ratio 21 NRG Serum or plasma creatinine measurement with calculation of estimated glomerular filtration rate > NRG Serum or plasma glucose measurement (mass/volume) 327 mg/dL 70-105 Serum or plasma calcium measurement (mass/volume) 9.0 mg/dL 8.5-10.1 Serum or plasma total bilirubin measurement (mass/volume) 0.4 mg/dL 0.1-1.0 Serum or plasma alkaline phosphatase measurement (enzymatic activity/volume) 76 U/L 40-136 Serum or plasma aspartate aminotransferase measurement (enzymatic activity/ volume) 20 U/L 5-34 Serum or plasma alanine aminotransferase measurement (enzymatic activity/volume ) 23 U/L 0-55 Serum or plasma protein measurement (mass/volume) 6.6 g/dL 6.4-8.2 Serum or plasma albumin measurement (mass/volume) 3.2 g/dL 3.2-4.5 Serum or plasma troponin i.cardiac measurement (mass/volume) - 06/26/17 05:34 Serum or plasma troponin i.cardiac measurement (mass/volume) < ng/ mL <0.30 Hemoglobin A1c - 06/26/17 05:34 Hemoglobin A1c 11.0 % 4.5-6.2 Capillary blood glucose measurement by glucometer (mass/volume) - 06/26/17 10: 22 Capillary blood glucose measurement by glucometer (mass/volume) 366 mg/dL 70-110 Serum or plasma troponin i.cardiac measurement (mass/volume) - 06/26/17 14:57 Serum or plasma troponin i.cardiac measurement (mass/volume) < ng/ mL <0.30 Capillary blood glucose measurement by glucometer (mass/volume) - 06/26/17 15: 59 Capillary blood glucose measurement by glucometer (mass/volume) 352 mg/dL 70-110 Capillary blood glucose measurement by glucometer (mass/volume) - 06/26/17 20: 49 Capillary blood glucose measurement by glucometer (mass/volume) 287 mg/dL 70-110 Capillary blood glucose measurement by glucometer (mass/volume) - 06/27/17 05: 12 Capillary blood glucose measurement by glucometer (mass/volume) 228 mg/dL 70-110 Complete blood count (CBC) with automated white blood cell (WBC) differential - 06/27/17 06:27 Blood leukocytes automated count (number/volume) 12.2 10*3/uL 4.3-11.0 Blood erythrocytes automated count (number/volume) 4.59 10*6/uL 4.35-5.85 Venous blood hemoglobin measurement (mass/volume) 12.9 g/dL 11.5-16.0 Blood hematocrit (volume fraction) 41 % 35-52 Automated erythrocyte mean corpuscular volume 89 [foz_us] 80-99 Automated erythrocyte mean corpuscular hemoglobin (mass per erythrocyte) 28 pg 25-34 Automated erythrocyte mean corpuscular hemoglobin concentration measurement ( mass/volume) 32 g/dL 32-36 Automated erythrocyte distribution width ratio 14.6 % 10.0-14.5 Automated blood platelet count (count/volume) 219 10*3/uL 130-400 Automated blood platelet mean volume measurement 12.1 [foz_us] 7.4-10.4 Automated blood neutrophils/100 leukocytes 72 % 42-75 Automated blood lymphocytes/100 leukocytes 17 % 12-44 Blood monocytes/100 leukocytes 7 % 0-12 Automated blood eosinophils/100 leukocytes 3 % 0-10 Automated blood basophils/100 leukocytes 1 % 0-10 Blood neutrophils automated count (number/volume) 8.8 10*3 1.8-7.8 Blood lymphocytes automated count (number/volume) 2.1 10*3 1.0-4.0 Blood monocytes automated count (number/volume) 0.9 10*3 0.0-1.0 Automated eosinophil count 0.4 10*3/uL 0.0-0.3 Automated blood basophil count (count/volume) 0.1 10*3/uL 0.0-0.1 Comprehensive metabolic panel - 06/27/17 06:27 Serum or plasma sodium measurement (moles/volume) 140 mmol/L 135-145 Serum or plasma potassium measurement (moles/volume) 3.7 mmol/L 3.6-5.0 Serum or plasma chloride measurement (moles/volume) 102 mmol/L 98-107 Carbon dioxide 28 mmol/L 21-32 Serum or plasma anion gap determination (moles/volume) 10 mmol/L 5-14 Serum or plasma urea nitrogen measurement (mass/volume) 15 mg/dL 7-18 Serum or plasma creatinine measurement (mass/volume) 0.68 mg/dL 0.60-1.30 Serum or plasma urea nitrogen/creatinine mass ratio 22 NRG Serum or plasma creatinine measurement with calculation of estimated glomerular filtration rate > NRG Serum or plasma glucose measurement (mass/volume) 285 mg/dL 70-105 Serum or plasma calcium measurement (mass/volume) 9.1 mg/dL 8.5-10.1 Serum or plasma total bilirubin measurement (mass/volume) 0.4 mg/dL 0.1-1.0 Serum or plasma alkaline phosphatase measurement (enzymatic activity/volume) 71 U/L 40-136 Serum or plasma aspartate aminotransferase measurement (enzymatic activity/ volume) 18 U/L 5-34 Serum or plasma alanine aminotransferase measurement (enzymatic activity/volume ) 22 U/L 0-55 Serum or plasma protein measurement (mass/volume) 6.8 g/dL 6.4-8.2 Serum or plasma albumin measurement (mass/volume) 3.1 g/dL 3.2-4.5 Bacterial blood culture - 06/27/17 09:15 Bacterial blood culture [facility] Bacterial blood culture - 06/27/17 09:23 Bacterial blood culture [facility] Automated blood complete blood count (hemogram) panel - 11/07/17 08:52 Blood leukocytes automated count (number/volume) 13.7 10*3/uL 4.3-11.0 Blood erythrocytes automated count (number/volume) 4.98 10*6/uL 4.35-5.85 Venous blood hemoglobin measurement (mass/volume) 14.6 g/dL 11.5-16.0 Blood hematocrit (volume fraction) 44 % 35-52 Automated erythrocyte mean corpuscular volume 88 [foz_us] 80-99 Automated erythrocyte mean corpuscular hemoglobin (mass per erythrocyte) 29 pg 25-34 Automated erythrocyte mean corpuscular hemoglobin concentration measurement ( mass/volume) 33 g/dL 32-36 Automated erythrocyte distribution width ratio 15.1 % 10.0-14.5 Automated blood platelet count (count/volume) 244 10*3/uL 130-400 Automated blood platelet mean volume measurement 12.4 [foz_us] 7.4-10.4 Comprehensive metabolic panel - 11/07/17 08:52 Serum or plasma sodium measurement (moles/volume) 134 mmol/L 135-145 Serum or plasma potassium measurement (moles/volume) 4.0 mmol/L 3.6-5.0 Serum or plasma chloride measurement (moles/volume) 93 mmol/L 98-107 Carbon dioxide 29 mmol/L 21-32 Serum or plasma anion gap determination (moles/volume) 12 mmol/L 5-14 Serum or plasma urea nitrogen measurement (mass/volume) 21 mg/dL 7-18 Serum or plasma creatinine measurement (mass/volume) 0.98 mg/dL 0.60-1.30 Serum or plasma urea nitrogen/creatinine mass ratio 21 NRG Serum or plasma creatinine measurement with calculation of estimated glomerular filtration rate 59 NRG Serum or plasma glucose measurement (mass/volume) 396 mg/dL 70-105 Serum or plasma calcium measurement (mass/volume) 9.5 mg/dL 8.5-10.1 Serum or plasma total bilirubin measurement (mass/volume) 0.5 mg/dL 0.1-1.0 Serum or plasma alkaline phosphatase measurement (enzymatic activity/volume) 90 U/L 40-136 Serum or plasma aspartate aminotransferase measurement (enzymatic activity/ volume) 21 U/L 5-34 Serum or plasma alanine aminotransferase measurement (enzymatic activity/volume ) 27 U/L 0-55 Serum or plasma protein measurement (mass/volume) 7.4 g/dL 6.4-8.2 Serum or plasma albumin measurement (mass/volume) 3.6 g/dL 3.2-4.5 PT panel in platelet poor plasma by coagulation assay - 11/07/17 08:52 Prothrombin time (PT) in platelet poor plasma by coagulation assay 13.5 s 12.2-14.7 INR in platelet poor plasma or blood by coagulation assay 1.0 0.8-1.4 Activated partial thromboplastin time (aPTT) in platelet poor plasma bycoagulation assay - 11/07/17 08:52 Activated partial thromboplastin time (aPTT) in platelet poor plasma bycoagulation assay 27 s 24-35 Methicillin resistant Staphylococcus aureus (MRSA) screening culture - 08:52 MRSA SCREEN RESULT MRSA ISOLATED NRG Capillary blood glucose measurement by glucometer (mass/volume) - 11/07/17 12: 07 Capillary blood glucose measurement by glucometer (mass/volume) 330 mg/dL 70-110 Encounters ACCT No. Visit Date/Time Discharge Status Pt. Type Provider Facility Loc./Unit Complaint [id number] 11/17/2014 09:22:00 11/17/2014 23:59:59 CLS Outpatient ALBIN RENAE APRN [id number] 10/28/2014 09:28:00 10/28/2014 23:59:59 CLS Outpatient COCO BAH DO [id number] 10/28/2014 09:28:00 10/28/2014 23:59:59 CLS Outpatient ALBIN RENAE APRN [id number] 08/26/2014 14:10:00 08/26/2014 23:59:59 CLS Outpatient DEANDRE CUEVAS MD [id number] 07/01/2014 15:01:00 07/01/2014 23:59:59 CLS Outpatient ALBIN RENAE APRN [id number] 07/01/2014 15:01:00 07/01/2014 23:59:59 CLS Outpatient COCO BAH DO [id number] 05/18/2014 11:12:00 05/18/2014 23:59:59 CLS Outpatient COCO BAH DO [id number] 04/21/2014 04:04:00 04/21/2014 23:59:59 CLS Outpatient DEANDRE CUEVAS MD [id number] 03/30/2014 14:37:00 03/30/2014 23:59:59 CLS Outpatient COCO BAH DO [id number] 03/01/2014 10:56:00 03/01/2014 23:59:59 CLS Outpatient CALLIEL ALBIN RIVERA [id number] 03/01/2014 10:56:00 03/01/2014 23:59:59 CLS Outpatient COCO BAH DO [id number] 01/28/2014 11:10:00 01/28/2014 23:59:59 CLS Outpatient ALBIN RENAE APRN [id number] 01/14/2014 14:47:00 01/14/2014 23:59:59 CLS Outpatient COCO BAH DO [id number] 12/24/2013 10:23:00 12/24/2013 23:59:59 CLS Outpatient COCO BAH DO [id number] 12/03/2013 10:48:00 12/03/2013 23:59:59 CLS Outpatient MALIK SANTIAGO APRN Adelfo [id number] 04/30/2012 10:35:00 04/30/2012 23:59:59 CLS Outpatient [id number] 04/16/2012 17:02:00 04/16/2012 23:59:59 CLS Outpatient AHSAN CHANG APRN [id number] 11/07/2017 08:21:00 11/07/2017 14:40:00 DIS Outpatient Alan BAILEY MD [facility] CATH ABN STRESS TEST [id number] 11/05/2017 12:43:00 11/05/2017 23:59:59 CLS Outpatient Alan BAILEY MD [facility] CARD R07.9 CHEST PAIN [id number] 10/31/2017 07:14:00 10/31/2017 23:59:59 CLS Outpatient Alan BAILEY MD [facility] CARD R07.9 CHEST PAIN [id number] 07/11/2017 08:00:00 07/11/2017 23:59:59 CLS Preadmit Alan BAILEY MD [facility] CARD CHF [id number] 07/01/2017 10:30:00 07/01/2017 23:59:59 CLS Outpatient Alan BAILEY MD [facility] CARD CHF [id number] 06/25/2017 18:32:00 06/27/2017 12:15:00 DIS Inpatient HONEY SEPULVEDA MD [facility] 4TH HEART FAILURE, UNCONTROLLED HYPERGLYCEMIA,AMS [id number] 04/18/2017 17:04:00 04/18/2017 19:45:00 DIS Emergency CHET, EDWIN MACHINIST MATE [facility] ER LEFT LEG INJ [id number] 12/09/2015 09:53:00 12/09/2015 15:00:00 DIS Outpatient MANISHA OLIVIA MD [facility] WOUNDCARE [id number] 07/29/2015 08:42:00 07/29/2015 23:59:59 CLS Outpatient ALBIN RENAE MACHINIST MATE [facility] RAD PAIN IN LEFT LOWER LEG [id number] 03/23/2015 12:26:00 03/23/2015 23:59:59 CLS Outpatient BERT JASON [employer] RESPONDER [facility] RAD MASTIDONA [id number] 03/01/2015 16:06:00 03/01/2015 20:24:00 DIS Emergency LEANN CONTRERAS [facility] ER ABD/BACK PAIN; HEADACHE [id number] 11/19/2014 12:44:00 11/19/2014 23:59:59 CLS Outpatient OC ALBIN Alanis MACHINIST MATE [facility] RAD ABDOMINAL PAIN [id number] 07/23/2014 15:00:00 07/24/2014 11:50:00 DIS Inpatient DEANDRE CUEVAS MD [facility] 4TH UNCONTROLLED DIABETES, CHRONIC HYPONATREMIA [id number] 06/23/2014 21:06:00 06/24/2014 00:16:00 DIS Emergency LEANN CONTRERAS [facility] ER HEADACHE [id number] 03/25/2014 02:45:00 03/26/2014 14:52:00 DIS Inpatient DEANDRE CUEVAS MD [facility] CSD PYELONEPHRISTIS,UTI, CHEST PAIN [id number] 10/01/2013 12:41:00 10/01/2013 15:11:00 DIS Emergency HONEY SEPULVEDA MD [facility] ER FALL/BACK PAIN [id number] 10/28/2014 11:16:00 Document Registration [id number] 02/20/2012 23:24:00 Document Registration [id number] 08/27/2011 07:33:00 Document Registration [id number] 01/05/2011 15:15:00 Document Registration [id number] 10/04/2010 10:07:00 Document Registration [id number] 03/23/2015 12:27:07 ACT Document Registration
--- NOTE | 2018-09-22 15:20 | ED GI ---
General Chief Complaint: Abdominal/GI Problems Stated Complaint: DEHYDRATION/N/V Nursing Triage Note: Patient has been sick x 1 week with nausea and vomiting. States she has not urinated today. Is complaining of a headache. Was supposed to see her doctor today and was so weak that she fell trying to get ready to go and called EMS. Sepsis Screen: Possible Sepsis Risk Source of Information: Patient, EMS Exam Limitations: No Limitations History of Present Illness Date Seen by Provider: Sep 22, 2018 Time Seen by Provider: 15:02 Initial Comments The patient presents to the ER by EMS from [facility] with chief complaint of nausea vomiting and diarrhea for one week. She went to the store and got some wahz-qkr-tyqvmol medications which were helping but then the last 2 days has gotten worse again. She's feeling dehydrated and having dizzy spells whenever she stands up. She had plans to go see Dr. SORIANO today her primary care provider but she just could not get out of the chair and walk so she called an ambulance instead. She doesn't history of high blood pressure, high cholesterol, diabetes with a blood sugar of 180 per EMS. She's not having any pain in her chest that she is having some epigastric and abdominal discomfort. She has a history of pancreatitis. She does not drink alcohol. Allergies and Home Medications Allergies Coded Allergies: aspirin (Unverified Allergy, Unknown, 03/25/14) influenza virus vaccine, specific (Unverified Allergy, Unknown, 07/23/14) morphine (Unverified Allergy, Unknown, 03/25/14) hydromorphone HCl (Unverified Adverse Reaction, Mild, VOMITING, 01/06/11) Home Medications Albuterol Sulfate 1 Puff Puff, 2 PUFF IH QID PRN for SHORTNESS OF BREATH, ( Reported) 1 PUFF = 90 MCG Amitriptyline HCl 50 Mg Tablet, 50 MG PO HS, (Reported) Amlodipine Besylate 2.5 Mg Tablet, 2.5 MG PO DAILY, (Reported) Apixaban 5 Mg Tablet, 5 MG PO BID, (Reported) Clonazepam 0.5 Mg Tablet, 0.5 MG PO TID, (Reported) Cranberry Fruit Concentrate 450 Mg Capsule, 450 MG PO DAILY, (Reported) Cyclobenzaprine HCl 10 Mg Tablet, 10 MG PO TID PRN for SPASMS, (Reported) Cyclobenzaprine HCl 10 Mg Tablet, 10 MG PO TID, (Reported) Dapagliflozin Propanediol 10 Mg Tablet, 10 MG PO DAILY, (Reported) Duloxetine HCl 30 Mg Capsule.dr, 30 MG PO DAILY, (Reported) Furosemide 40 Mg Tablet, 40 MG PO BID, (Reported) Hydroxyzine HCl 50 Mg Tablet, 50 MG PO BID, (Reported) Insulin Aspart 300 Units/3 Ml Solution, 50 UNITS SQ AC, (Reported) Insulin Detemir 100 Unit/1 Ml Insuln.pen, 100 UNIT SQ BID, (Reported) Losartan Potassium 100 Mg Tablet, 100 MG PO DAILY, (Reported) Multivitamin 1 Each Tablet, 1 TAB PO DAILY, (Reported) Ida 3 Polyunsat Fatty Acids 1,000 Mg Cap, 1,000 MG PO BID, (Reported) Omeprazole 40 Mg Capsule.dr, 40 MG PO DAILY, (Reported) Potassium Chloride 20 Meq Tablet.er, 20 MEQ PO DAILY, (Reported) Pregabalin 100 Mg Capsule, 150 MG PO BID, (Reported) Rosuvastatin Calcium 40 Mg Tablet, 40 MG PO HS, (Reported) Sitagliptin Phosphate 100 Mg Tablet, 100 MG PO DAILY, (Reported) Sitagliptin Phosphate 100 Mg Tablet, 100 MG PO DAILY, (Reported) Solifenacin Succinate 5 Mg Tablet, 5 MG PO DAILY, (Reported) Tramadol HCl 50 Mg Tablet, 100 MG PO Q6H PRN for PAIN-MODERATE, (Reported) Zolpidem Tartrate 5 Mg Tablet, 5 MG PO DAILY, (Reported) Patient Home Medication List Home Medication List Reviewed: Yes Review of Systems Review of Systems Constitutional: No chills, No diaphoresis EENTM: No Blurred Vision, No Double Vision Respiratory: Denies Cough, Denies Shortness of Air Cardiovascular: Denies Chest Pain, Denies Edema Gastrointestinal: Denies Abdomen Distended; Abdominal Pain (epigastric); Denies Constipated; Diarrhea, Nausea, Poor Appetite, Poor Fluid Intake; Denies Rectal Bleeding; Vomiting Genitourinary: Denies Burning, Denies Discharge, Denies Drainage Musculoskeletal: No back pain, No joint pain Skin: No pruritus, No rash Psychiatric/Neurological: Headache; Denies Numbness, Denies Paresthesia Past Mdfipqi-Hhpgmm-Dhrdfp Hx Patient Social History Alcohol Use: Denies Use Recreational Drug Use: No Smoking Status: Current Everyday Smoker Type Used: Cigarettes 2nd Hand Smoke Exposure: Yes Recent Foreign Travel: No Contact w/Someone Who Travel: No Recent Infectious Disease Expo: No Recent Hopitalizations: Yes (SHINGLES) Immunizations Up To Date Tetanus Booster (TDap): Less than 5yrs PED Vaccines UTD: No Date of Pneumonia Vaccine: May 12, 2012 Past Medical History Surgeries: Yes (hysterectomy, gallbladder, appendectomy) Appendectomy, Gallbladder, Hysterectomy Respiratory: Yes Asthma, Pneumonia, Chronic Bronchitis Currently Using CPAP: No Currently Using BIPAP: No Cardiac: Yes High Cholesterol, Hypertension Neurological: Yes Neuropathy Reproductive Disorders: No (partial hysterectomy of R side. ) Female Reproductive Disorders: Denies Sexually Transmitted Disease: No HIV/AIDS: No Genitourinary: Yes Kidney Infection, UTI-Chronic Gastrointestinal: Yes (abd pain at times) Gastroesophageal Reflux, Pancreatitis Arthritis Endocrine: Yes Diabetes, Non-Insulin dep Tinnitis Loss of Vision: Denies Hearing Impairment: Denies Cancer: No Psychosocial: Yes Anxiety, Depression Blood Disorders: No Adverse Reaction/Blood Tranf: No Family Medical History Alcoholism G8 BROTHER Alzheimer's disease 19 MOTHER Arthritis 19 FATHER 19 MOTHER G8 BROTHER G8 BROTHER G8 BROTHER G8 BROTHER G8 BROTHER G8 SISTER G8 SISTER G8 SISTER G8 SISTER G8 SISTER G8 SISTER Asthma 19 FATHER 19 MOTHER G8 SISTER G8 SISTER Cancer of mouth Cardiovascular disease 19 FATHER 19 MOTHER G8 BROTHER G8 BROTHER G8 SISTER G8 SISTER Completed stroke 19 FATHER G8 SISTER G8 SISTER Dementia G8 BROTHER Diabetes mellitus 19 FATHER 19 MOTHER G8 BROTHER G8 BROTHER G8 BROTHER G8 BROTHER G8 BROTHER G8 SISTER G8 SISTER G8 SISTER G8 SISTER G8 SISTER G8 SISTER Glaucoma 19 MOTHER G8 SISTER G8 SISTER Hypercholesterolemia 19 FATHER 19 MOTHER Hypertension 19 FATHER 19 MOTHER G8 BROTHER G8 BROTHER G8 BROTHER G8 BROTHER G8 BROTHER G8 SISTER G8 SISTER G8 SISTER G8 SISTER G8 SISTER G8 SISTER Myocardial infarction 19 FATHER 19 MOTHER G8 BROTHER G8 BROTHER G8 SISTER G8 SISTER G8 SISTER Osteoporosis G8 SISTER Seizure disorder G8 BROTHER No Family History of: AIDS Abdominal aortic aneurysm Maxwell's disease Aphasia Cataracts Colon cancer Congenital disease Congenital heart disease Coronary thrombosis Cystic fibrosis Deafness or hearing loss Drug abuse Dysphasia Fibrocystic disease of breast Gastroenteritis Headache disorder Infertility Kidney disease Neoplasm Parkinson's disease Prostate cancer Psychosocial problem Severe allergy Thyroid disease Tuberculosis Visual disorder No Pertinent Family Hx Physical Exam Vital Signs Vital Signs - First Documented 09/22/18 15:10 Temp 98.1 Pulse 100 Resp 21 B/P (MAP) 111/65 (80) Pulse Ox 99 O2 Flow Rate 3.00 Capillary Refill : Less Than 3 Seconds Height/Weight/BMI Height: 5'9.00" Weight: 235lbs. 5.0oz. [id number]; 40.2 BMI Method:Stated General Appearance: WD/WN, mild distress HEENT: PERRL/EOMI, normal ENT inspection, TMs normal, pharynx normal ( oropharynx is mildly dry) Neck: non-tender, full range of motion, supple, normal inspection Respiratory: chest non-tender, lungs clear, normal breath sounds, no respiratory distress, no accessory muscle use Cardiovascular: normal peripheral pulses, regular rate, rhythm, no JVD, no murmur Peripheral Pulses: 2+ Radial Pulses (R), 2+ Radial Pulses (L) Gastrointestinal: normal bowel sounds, soft, no organomegaly, tenderness ( epigastric region), other (negative for McBurney's point tenderness, Painter's sign psoas sign or other mesenteric signs) Extremities: non-tender, normal inspection, normal capillary refill Neurologic/Psychiatric: 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, no motor/sensory deficits, alert, normal mood/affect, oriented x 3 Skin: normal color, warm/dry, other (decreased turgor pressure) Focused Exam Lactate Level 09/22/18 15:10: Lactic Acid Level 1.60 Lactic Acid Level Laboratory Tests Test 09/22/18 15:10 Lactic Acid Level 1.60 MMOL/L (0.50-2.00) Progress/Results/Core Measures Results/Orders Lab Results Laboratory Tests Test 09/22/18 15:10 09/22/18 15:26 09/22/18 17:02 Range/Units White Blood Count 13.6 H 4.3-11.0 10^3/uL Red Blood Count 4.95 4.35-5.85 10^6/uL Hemoglobin 14.7 11.5-16.0 G/DL Hematocrit 42 35-52 % Mean Corpuscular Volume 86 80-99 FL Mean Corpuscular Hemoglobin 30 25-34 PG Mean Corpuscular Hemoglobin Concent 35 32-36 G/DL Red Cell Distribution Width 14.6 H 10.0-14.5 % Platelet Count 331 130-400 10^3/uL Mean Platelet Volume 12.4 H 7.4-10.4 FL Neutrophils (%) (Auto) 68 42-75 % Lymphocytes (%) (Auto) 20 12-44 % Monocytes (%) (Auto) 10 0-12 % Eosinophils (%) (Auto) 2 0-10 % Basophils (%) (Auto) 1 0-10 % Neutrophils # (Auto) 9.3 H 1.8-7.8 X 10^3 Lymphocytes # (Auto) 2.8 1.0-4.0 X 10^3 Monocytes # (Auto) 1.3 H 0.0-1.0 X 10^3 Eosinophils # (Auto) 0.2 0.0-0.3 10^3/uL Basophils # (Auto) 0.1 0.0-0.1 10^3/uL Sodium Level 137 135-145 MMOL/L Potassium Level 4.0 3.6-5.0 MMOL/L Chloride Level 98 98-107 MMOL/L Carbon Dioxide Level 23 21-32 MMOL/L Anion Gap 16 H 5-14 MMOL/L Blood Urea Nitrogen 17 7-18 MG/DL Creatinine 1.04 0.60-1.30 MG/DL Estimat Glomerular Filtration Rate 55 BUN/Creatinine Ratio 16 Glucose Level 263 H 70-105 MG/DL Lactic Acid Level 1.60 0.50-2.00 MMOL/L Calcium Level 10.1 8.5-10.1 MG/DL Corrected Calcium 10.6 H 8.5-10.1 MG/DL Total Bilirubin 0.2 0.1-1.0 MG/DL Aspartate Amino Transf (AST/SGOT) 25 5-34 U/L Alanine Aminotransferase (ALT/SGPT) 18 0-55 U/L Alkaline Phosphatase 82 40-136 U/L Total Protein 7.7 6.4-8.2 GM/DL Albumin 3.4 3.2-4.5 GM/DL Lipase 30 8-78 U/L Glucometer 283 H 70-110 MG/DL Urine Color YELLOW Urine Clarity SLIGHTLY CLOUDY Urine pH 5 5-9 Urine Specific Le[place]on 1.015 L 1.016-1.022 Urine Protein 2+ H NEGATIVE Urine Glucose (UA) 4+ H NEGATIVE Urine Ketones 2+ H NEGATIVE Urine Nitrite NEGATIVE NEGATIVE Urine Bilirubin NEGATIVE NEGATIVE Urine Urobilinogen NORMAL NORMAL MG/DL Urine Leukocyte Esterase 3+ H NEGATIVE Urine RBC (Auto) 3+ H NEGATIVE Urine RBC 2-5 H /HPF Urine WBC TNTC H /HPF Urine Squamous Epithelial Cells 2-5 /HPF Urine Crystals NONE /LPF Urine Bacteria LARGE H /HPF Urine Casts NONE /LPF Urine Mucus NEGATIVE /LPF Urine Yeast MODERATE H /HPF Urine Culture Indicated YES Micro Results Microbiology 09/22/18 Influenza Types A,B Antigen ([place]) - Final, Complete My Orders Orders - FEMI BRUMFIELD Saline Lock/Iv-Start (09/22/18 15:15) Ns Iv 500 Ml (Sodium Chloride 0.9%) (09/22/18 15:15) Ns Iv 1000 Ml (Sodium Chloride 0.9%) (09/22/18 15:15) Accucheck Stat ONCE (09/22/18 15:15) Influenza A And B Antigens (09/22/18 15:33) Blood Culture (09/22/18 15:33) Lactic Acid Analyzer (09/22/18 15:33) Ketorolac Injection (Toradol Injection) (09/22/18 15:45) Medications Given in ED Current Medications Medications Dose Ordered Sig/Jose Armando Route Start Time Stop Time Status Last Admin Dose Admin Ketorolac Tromethamine 30 mg ONCE ONCE IVP 09/22/18 15:45 09/22/18 15:46 DC 09/22/18 15:41 30 MG Sodium Chloride 500 ml @ 0 mls/hr Q0M ONCE IV 09/22/18 15:15 09/22/18 15:19 DC 09/22/18 15:41 999 MLS/HR Vital Signs/I&O 09/22/18 09/22/18 15:10 16:08 Temp 98.1 98.1 Pulse 100 100 Resp 21 21 B/P (MAP) 111/65 (80) 111/65 Pulse Ox 99 99 O2 Flow Rate 3.00 3.00 Blood Pressure Mean: 80 Progress Progress Note : Time: 15:38 Progress Note Based on an adjusted ideal body weight of 163 pounds we have initiated a 20 cc/ kg fluid bolus of 1500 cc. Patient does appear to be dehydrated may have some viral gastroenteritis. Not coughing or having any respiratory complaints that she has insisted on being tested for influenza which is reasonable. She did not get a flu shot this year. No fever. No tachycardia but her heart rate is in the 90s. If she has a significant elevated white count she would qualify for sepsis so we went ahead and captured some blood cultures and lactate. We will do a fluid bolus, Toradol for her headache and lipase and she's having some epigastric tenderness with history of pancreatitis. We'll obtain urinalysis as well. Departure Communication (Admissions) Time/Spoke to Admitting Phy: 17:35 Discussed lab findings with Dr. brennan and she agrees to admit the patient for sepsis and UTI. Elizabeth is agreeable. Impression Primary Impression: UTI (urinary tract infection) Qualified Codes: N30.01 - Acute cystitis with hematuria Additional Impressions: Sepsis Qualified Codes: A41.9 - Sepsis, unspecified organism Gastroenteritis and colitis, viral Disposition: ADMITTED INPATIENT Condition: Improved Admissions Decision to Admit Reason: Admit from ER (General) Decision to Admit/Date: Sep 22, 2018 Time/Decision to Admit Time: 17:28 Departure-Patient Inst. Referrals: RIGOBERTO LYNCH MD (PCP/Family) Primary Care Physician Copy Copies To 1: CABRERA SORIANO TITUS J Sep 22, 2018 15:20
[2018-09-22 15:26] LABS: BASOPHILS # (AUTO) 0.1 10^3/uL (0.0-0.1); BASOPHILS % (AUTO) 1 % (0-10); EOSINOPHILS # (AUTO) 0.2 10^3/uL (0.0-0.3); EOSINOPHILS % (AUTO) 2 % (0-10); HEMATOCRIT 42 % (35-52); HEMOGLOBIN 14.7 G/DL (11.5-16.0); LYMPHOCYTES # (AUTO) 2.8 X 10^3 (1.0-4.0); LYMPHOCYTES % (AUTO) 20 % (12-44); MEAN CORPUSCULAR HEMOGLOBIN 30 PG (25-34); MEAN CORPUSCULAR HGB CONC 35 G/DL (32-36); MEAN CORPUSCULAR VOLUME 86 FL (80-99); MEAN PLATELET VOLUME 12.4 FL (7.4-10.4); MONOCYTES # (AUTO) 1.3 X 10^3 (0.0-1.0); MONOCYTES % (AUTO) 10 % (0-12); NEUTROPHILS # (AUTO) 9.3 X 10^3 (1.8-7.8); NEUTROPHILS % (AUTO) 68 % (42-75); PLATELET COUNT 331 10^3/uL (130-400); RED CELL DISTRIBUTION WIDTH 14.6 % (10.0-14.5); WHITE BLOOD COUNT 13.6 10^3/uL (4.3-11.0)
[2018-09-22] MEDS ORDERED: KETOROLAC 30 MG/ML VIAL IVP ONE (15:45)
[2018-09-22 15:47] LABS: ALBUMIN 3.4 GM/DL (3.2-4.5); BILIRUBIN,TOTAL 0.2 MG/DL (0.1-1.0); CALCIUM 10.1 MG/DL (8.5-10.1); CREATININE SERUM 1.04 MG/DL (0.60-1.30); TOTAL PROTEIN 7.7 GM/DL (6.4-8.2)
[2018-09-22] MEDS ORDERED: POTA-51 PO (16:28)
[2018-09-22] MEDS ORDERED: SITA100T12 PO (16:28)
[2018-09-22] MEDS ORDERED: ZOLP5TAB PO (16:28)
[2018-09-22] MEDS ORDERED: CYCL10TA9 PO (16:28)
[2018-09-22] MEDS ORDERED: AMLO2.5T4 PO (16:28)
[2018-09-22] MEDS ORDERED: DAPA10TA PO (16:28)
[2018-09-22 17:12] LABS: BILIRUBIN,URINE NEGATIVE (NEGATIVE); CLARITY,URINE SLIGHTLY CLOUDY; COLOR,URINE YELLOW; GLUCOSE, URINE (UA) 4+ (NEGATIVE); KETONES,URINE 2+ (NEGATIVE); LEUKOCYTE ESTERASE ,URINE 3+ (NEGATIVE); NITRITE,URINE NEGATIVE (NEGATIVE); PH,URINE 5 (5-9); PROTEIN,URINE 2+ (NEGATIVE); UROBILINOGEN,URINE NORMAL (NORMAL)
[2018-09-22 17:22] LABS: BACTERIA,URINE LARGE /HPF; WBC,URINE TNTC /HPF; YEAST,URINE MODERATE /HPF
[2018-09-22] MEDS ORDERED: cefTRIAXone FOR IV USE 1,000 MG in WATER (STERILE) FOR INJECTION 10 ML IV ONE (18:00)
[2018-09-22] MEDS ORDERED: clonazePAM 0.5 MG (KlonoPIN) TAB PO PRN (19:00)
[2018-09-22] MEDS ORDERED: LOPERAMIDE 2 MG (IMODIUM) CAP PO PRN (19:00)
[2018-09-22] MEDS ORDERED: ZOLPIDEM 5 MG (AMBIEN) TAB PO PRN (19:00)
[2018-09-22] MEDS ORDERED: ONDANSETRON 4 MG/2 ML (SDV) Z0FRAN IV PRN (19:00)
[2018-09-22] MEDS: ACETAMINOPHEN 500 MG TAB (TYLENOL) PO PRN (20:47)
[2018-09-22] MEDS: 1/2 NS W/KCL 20 MEQ/L 1,000 ML IV SCH (20:47)
--- NOTE | 2018-09-22 21:30 | NUR ---
MARYANNE ROCK admitted to room 428-1, with an admitting diagnosis of UTI, on 09/22/18 from ED via , accompanied by STAFF.MARYANNE ROCK introduced to surroundings, call light, bed controls, phone, TV, temperature control, lights, meal times, smoking policy, visitor policy, side rail policy, bathrooms and showers. Patient Rights given to patient in the handbook. MARYANNE ROCK verbalizes understanding that [facility] is not responsible for the loss or damage to any personal effects or valuables that are kept in the patients possession during their hospitalization. PLANS OF CARE DISCUSSED AND PT VERBALIZED UNDERSTANDING. MARYANNE ROCK verbalizes understanding of Interdisciplinary Patient Education. Patient and/or family were informed about the Rapid Response Team and its purpose.
[2018-09-22] MEDS: inSUlin ASPART (NovoLOG) 1 UNIT/0.01 ML (CHARGE PER UNIT) SC SCH (21:34)
[2018-09-22] MEDS: inSUlin DETERMIR 1 UNIT/0.01 ML (LEVEMIR) CHARGE PER UNIT SQ SCH (21:34)
[2018-09-22] MEDS: AMITRIPTYLINE 50 MG (ELAVIL) TAB PO SCH (21:35)
[2018-09-22] MEDS: PREGABALIN 75 MG (LYRICA) CAP PO SCH (21:35)
[2018-09-22] MEDS: ROSUVASTATIN 20 MG (CRESTOR) TABLET PO SCH (21:35)
[2018-09-22] MEDS: APIXABAN 5 MG (ELIQUIS) TABLET PO SCH (21:35)
[2018-09-22 21:55] VITALS: BP 124/63
[2018-09-22] MEDS ORDERED: RT-ALBUTEROL SULF 2.5 MG/3 ML PRE-MIX VIAL INH PRN (22:15)
[2018-09-23] VITALS (7 sets, daily range): BP systolic 132–178; BP diastolic 64–89
[2018-09-23] MEDS: KETOROLAC 15 MG/ML VIAL IV PRN ×2 (00:32→08:06)
[2018-09-23] MEDS: 1/2 NS W/KCL 20 MEQ/L 1,000 ML IV SCH ×4 (02:18→20:21)
[2018-09-23 05:28] LABS: BASOPHILS # (AUTO) 0.1 10^3/uL (0.0-0.1); BASOPHILS % (AUTO) 1 % (0-10); EOSINOPHILS # (AUTO) 0.3 10^3/uL (0.0-0.3); EOSINOPHILS % (AUTO) 2 % (0-10); HEMATOCRIT 37 % (35-52); HEMOGLOBIN 12.2 G/DL (11.5-16.0); LYMPHOCYTES # (AUTO) 3.8 X 10^3 (1.0-4.0); LYMPHOCYTES % (AUTO) 32 % (12-44); MEAN CORPUSCULAR HEMOGLOBIN 29 PG (25-34); MEAN CORPUSCULAR HGB CONC 33 G/DL (32-36); MEAN CORPUSCULAR VOLUME 88 FL (80-99); MEAN PLATELET VOLUME 12.2 FL (7.4-10.4); MONOCYTES # (AUTO) 1.1 X 10^3 (0.0-1.0); MONOCYTES % (AUTO) 10 % (0-12); NEUTROPHILS # (AUTO) 6.7 X 10^3 (1.8-7.8); NEUTROPHILS % (AUTO) 56 % (42-75); PLATELET COUNT 259 10^3/uL (130-400); RED CELL DISTRIBUTION WIDTH 14.1 % (10.0-14.5)
[2018-09-23 05:45] LABS: CALCIUM 9.1 MG/DL (8.5-10.1); CREATININE SERUM 0.98 MG/DL (0.60-1.30); POTASSIUM 3.5 MMOL/L (3.6-5.0)
[2018-09-23] MEDS: inSUlin ASPART (NovoLOG) 1 UNIT/0.01 ML (CHARGE PER UNIT) SC SCH ×7 (05:58→20:26)
[2018-09-23] MEDS: PANTOPRAZOLE 40 MG (PROTONIX) TAB PO SCH (05:59)
[2018-09-23] MEDS ORDERED: PREG150C PO (09:06)
[2018-09-23] MEDS ORDERED: CRAN1CAP7 PO (09:06)
[2018-09-23] MEDS ORDERED: HYDR-3812 PO (09:06)
[2018-09-23] MEDS ORDERED: ZOLP5TAB7 PO (09:06)
[2018-09-23] MEDS ORDERED: FLUT16SP22 NS (09:06)
[2018-09-23] MEDS ORDERED: MULT1TAB69 PO (09:06)
--- NOTE | 2018-09-23 09:10 | NUR ---
SPOKE WITH THE PATIENT ABOUT HER MEDICATIONS. SHE HAD MOST OF HER BOTTLES WITH AND WE WENT OVER THEM WELL COMPARING WITH THE EXT MED HX. IN ADDITION TO WHAT SHE HAS BROUGHT IN WITH HER SHE TAKES: [employer] DAILY FISH OIL HS FLONASE PRN PROAIR PRN LEVEMIR NOVOLOG
--- NOTE | 2018-09-23 10:10 | History & Physical-Hospitalist ---
History of Present Illness HPI/Chief Complaint Pt is a 53yoCF with a PMH of IDDMII, HTN, perpipheral neuropathy, depression and anxiety, COPD, and history of PE who presented to the ER with a 1 week history of nausea, vomiting, and diarrhea. She states that she started to feel ill around 1 week ago and was supposed to see her doctor yesterday but when she went to stand up she got dizzy and had to sit back down. She called her niece to help her get to her appointment but her niece was unable to get her up so EMS was called and brought her to the ER for evaluation. She states she has felt similarly when she has had a UTI before and thought that may be what is going on. This morning she states she is feeling better and has had no diarrhea. She also expresses concern about her safety living at home alone due to her multiple medical problems. Source: patient Date Seen 09/23/18 Time Seen by a Provider: 10:34 Attending Physician Mayra Valdes MD PCP Johan Teresa MD Referring Physician Date of Admission Sep 22, 2018 at 17:40 Home Medications & Allergies Home Medications Reviewed patient Home Medication Reconciliation performed by pharmacy medication reconciliations fiber technician and/or nursing. Patients Allergies have been reviewed. Allergies Allergies Coded Allergies aspirin (Unverified Allergy, Unknown, 03/25/14) influenza virus vaccine, specific (Unverified Allergy, Unknown, 07/23/14) morphine (Unverified Allergy, Unknown, 03/25/14) hydromorphone HCl (Unverified Adverse Reaction, Mild, VOMITING, 01/06/11) Past Skcfcbt-Uyddvb-Baheqj Hx Past Med/Social Hx: Reviewed Nursing Past Med/Soc Hx Patient Social History Marrital Status: Alcohol Use: Denies Use Recreational Drug Use: No Smoking Status: Current Everyday Smoker Cigaretts per day: 10 Type Used: Cigarettes 2nd Hand Smoke Exposure: Yes Recent Foreign Travel: No Contact w/other who traveled: No Recent Hopitalizations: Yes (SHINGLES) Recent Infectious Disease Expo: No Immunizations Up To Date Tetanus Booster (TDap): Unknown Pediatric: No Date of Pneumonia Vaccine: May 12, 2012 Past Medical History Surgeries: Appendectomy, Gallbladder, Hysterectomy Respiratory: COPD, Pneumonia Currently Using CPAP: No Currently Using BIPAP: No Cardiac: High Cholesterol, Hypertension Neurological: Neuropathy Reproductive: No (partial hysterectomy of R side. ) Sexually Transmitted Disease: No HIV/AIDS: No Female Reproductive Disorders: Denies Genitourinary: Kidney Infection, UTI-Chronic Gastrointestinal: Gastroesophageal Reflux, Pancreatitis Musculoskeletal: Arthritis Endocrine: Diabetes, Insulin dep HEENT: Tinnitis Loss of Vision: Denies Hearing Impairment: Denies Psychosocial: Anxiety, Depression History of Blood Disorders: No Adverse Reaction to Blood Carlson: No Family History Reviewed Nursing Family Hx Alcoholism G8 BROTHER Alzheimer's disease 19 MOTHER Arthritis 19 FATHER 19 MOTHER G8 BROTHER G8 BROTHER G8 BROTHER G8 BROTHER G8 BROTHER G8 SISTER G8 SISTER G8 SISTER G8 SISTER G8 SISTER G8 SISTER Asthma 19 FATHER 19 MOTHER G8 SISTER G8 SISTER Cancer of mouth Cardiovascular disease 19 FATHER 19 MOTHER G8 BROTHER G8 BROTHER G8 SISTER G8 SISTER Completed stroke 19 FATHER G8 SISTER G8 SISTER Dementia G8 BROTHER Diabetes mellitus 19 FATHER 19 MOTHER G8 BROTHER G8 BROTHER G8 BROTHER G8 BROTHER G8 BROTHER G8 SISTER G8 SISTER G8 SISTER G8 SISTER G8 SISTER G8 SISTER Glaucoma 19 MOTHER G8 SISTER G8 SISTER Hypercholesterolemia 19 FATHER 19 MOTHER Hypertension 19 FATHER 19 MOTHER G8 BROTHER G8 BROTHER G8 BROTHER G8 BROTHER G8 BROTHER G8 SISTER G8 SISTER G8 SISTER G8 SISTER G8 SISTER G8 SISTER Myocardial infarction 19 FATHER 19 MOTHER G8 BROTHER G8 BROTHER G8 SISTER G8 SISTER G8 SISTER Osteoporosis G8 SISTER Seizure disorder G8 BROTHER No Family History of: AIDS Abdominal aortic aneurysm Rochester's disease Aphasia Cataracts Colon cancer Congenital disease Congenital heart disease Coronary thrombosis Cystic fibrosis Deafness or hearing loss Drug abuse Dysphasia Fibrocystic disease of breast Gastroenteritis Headache disorder Infertility Kidney disease Neoplasm Parkinson's disease Prostate cancer Psychosocial problem Severe allergy Thyroid disease Tuberculosis Visual disorder Review of Systems Constitutional: dizziness Respiratory: No cough, No short of breath Cardiovascular: No chest pain Gastrointestinal: abdominal pain, diarrhea; No melena; nausea, vomiting Genitourinary: No dysuria; frequency Psychiatric/Neurological: Anxiety, Depressed, Numbness (chronic) All Other Systems Reviewed Negative Unless Noted: Yes (Negative excepted noted.) Physical Exam Physical Exam Vital Signs Vital Signs - First Documented 09/22/18 09/22/18 15:10 21:55 Temp 98.1 Pulse 100 Resp 21 B/P (MAP) 111/65 (80) Pulse Ox 99 O2 Delivery Nasal Cannula O2 Flow Rate 3.00 Capillary Refill : Less Than 3 Seconds Height, Weight, BMI Height: 5'9.00" Weight: 225lbs. 3.0oz. 102.155118rk; 33.3 BMI Method:Stated General Appearance: No Apparent Distress, Obese HEENT: PERRL/EOMI, Moist Mucous Membranes; No Scleral Icterus (L), No Scleral Icterus (R) Neck: Non Tender, Supple Respiratory: Lungs Clear, No Respiratory Distress Cardiovascular: Regular Rate, Rhythm, No Murmur Gastrointestinal: Normal Bowel Sounds, Non Tender, Soft Extremity: Normal Capillary Refill, No Calf Tenderness Neurologic/Psychiatric: Alert, Oriented x3, No Motor/Sensory Deficits, Normal Mood/Affect Skin: Normal Color, Warm/Dry Results Results/Procedures Labs Laboratory Tests 09/22/18 15:10 09/23/18 05:05 Patient resulted labs reviewed. Assessment/Plan Admission Diagnosis Sepsis Admission Status: Inpatient Order (span 2 midnights) Reason for Inpatient Admission: Needs IV abx, await cultures, will take more than 2 midnights to stabilize for DC Diagnosis/Problems Diagnosis/Problems (1) Sepsis Status: Acute Assessment & Plan: From UTI Await culture Does not meet severe sepsis criteria Continue Rocephin Qualifiers: Sepsis type: sepsis due to unspecified organism Qualified Codes: A41.9 - Sepsis, unspecified organism (2) UTI (urinary tract infection) Status: Acute Assessment & Plan: Rocephin as above Qualifiers: Urinary tract infection type: acute cystitis Hematuria presence: with hematuria Qualified Codes: N30.01 - Acute cystitis with hematuria (3) Gastroenteritis and colitis, viral Status: Acute Assessment & Plan: Resolving Continue IVF and supportive care (4) Insulin dependent diabetes mellitus Status: Chronic Assessment & Plan: Continue home insulin SSI (5) Essential (primary) hypertension Status: Chronic Assessment & Plan: Elevated this AM Resume home meds (6) COPD (chronic obstructive pulmonary disease) Status: Chronic Assessment & Plan: Continue home inhalers MAT protocol Qualifiers: COPD type: unspecified COPD Qualified Codes: J44.9 - Chronic obstructive pulmonary disease, unspecified Clinical Quality Measures DVT/VTE Risk/Contraindication: Risk Factor Score Per Nursin RFS Level Per Nursing on Admit: 2=Moderate BRIGIDA,MAYRA M MD Sep 23, 2018 10:10
[2018-09-23] MEDS: PREGABALIN 75 MG (LYRICA) CAP PO SCH ×2 (10:16→20:20)
[2018-09-23] MEDS: APIXABAN 5 MG (ELIQUIS) TABLET PO SCH ×2 (10:16→20:21)
[2018-09-23] MEDS: DULoxetine 30 MG (CYMBALTA) CAP PO SCH (10:16)
[2018-09-23] MEDS: inSUlin DETERMIR 1 UNIT/0.01 ML (LEVEMIR) CHARGE PER UNIT SQ SCH ×2 (10:17→20:32)
[2018-09-23] MEDS ORDERED: FLUTICASONE NASAL SPRAY (FLONASE) 16 GM BTL NS PRN (11:00)
[2018-09-23] MEDS ORDERED: RT-ALBUTEROL SULF 2.5 MG/3 ML PRE-MIX VIAL IH PRN (11:00)
--- NOTE | 2018-09-23 12:16 | NUR ---
CM/SS met with the patient for discharge planning. DR had expressed concerns of depression and patient reporting loss of family. Patient discussed that in 2004 she lost her son and dad. Then on 09/25 lost her and in October her mother. Patient became tearful while talking about these losses. Patient also discussed that it is hard on her as she has a son that will not speak to her. She stated that she has four living children. She had been in MH Counseling previously and does feel that having someone to talk to would benefit her. Called [facility] and appointment was scheduled for 09/30 at 9am for MH intake. 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 and that if she were to need transportation then her Medical Card has transportation services available also. Will continue to follow in EMR.
[2018-09-23] MEDS: amLODIPine 2.5MG (NORVASC) TAB PO SCH (12:23)
[2018-09-23] MEDS: KCL 20 MEQ TAB (K-DUR) PO SCH (14:14)
[2018-09-23] MEDS: CYCLOBENZAPRINE 10 MG (FLEXERIL) TAB PO SCH ×2 (14:14→20:21)
[2018-09-23] MEDS: FUROSEMIDE 40 MG (LASIX) TAB PO SCH (17:16)
[2018-09-23] MEDS: cefTRIAXone 1,000 MG/SWFI 10 ML IV PUSH IV SCH ×2 (17:44)
[2018-09-23] MEDS: ACETAMINOPHEN 500 MG TAB (TYLENOL) PO PRN (18:09)
[2018-09-23] MEDS: hydrOXYzine (ATARAX) 10 MG TAB PO SCH (20:20)
[2018-09-23] MEDS: ROSUVASTATIN 20 MG (CRESTOR) TABLET PO SCH (20:21)
[2018-09-23] MEDS: HYDROcodone/APAP 5 MG/325 MG (LORTAB) TAB PO SCH (20:21)
[2018-09-23] MEDS: AMITRIPTYLINE 50 MG (ELAVIL) TAB PO SCH (20:21)
[2018-09-23] MEDS ORDERED: NON-FORMULARY MEDICATION 1 EA EA (Hydroxyzine HCl 50 MG) PO SCH (21:00)
[2018-09-23] MEDS ORDERED: NON-FORMULARY MEDICATION 1 EA EA (Hydrocodone/Acetaminophen (Hydrocodone-Acetamin 5-325 mg PO SCH (21:00)
[2018-09-24] MEDS: 1/2 NS W/KCL 20 MEQ/L 1,000 ML IV SCH ×5 (02:15→20:00)
[2018-09-24 03:33] VITALS: BP 167/77
[2018-09-24] MEDS: TROSPIUM 20 MG (SANCTURA) TAB PO SCH ×2 (06:07→15:24)
[2018-09-24] MEDS: inSUlin ASPART (NovoLOG) 1 UNIT/0.01 ML (CHARGE PER UNIT) SC SCH ×7 (06:08→21:01)
[2018-09-24] MEDS: KCL 20 MEQ TAB (K-DUR) PO SCH (06:08)
[2018-09-24] MEDS: FUROSEMIDE 40 MG (LASIX) TAB PO SCH ×2 (06:08→17:19)
[2018-09-24] MEDS: PANTOPRAZOLE 40 MG (PROTONIX) TAB PO SCH (06:08)
[2018-09-24 07:37] VITALS: BP 120/60
[2018-09-24] MEDS: PREGABALIN 75 MG (LYRICA) CAP PO SCH ×2 (08:07→21:00)
[2018-09-24] MEDS: inSUlin DETERMIR 1 UNIT/0.01 ML (LEVEMIR) CHARGE PER UNIT SQ SCH ×2 (08:07→21:01)
[2018-09-24] MEDS: hydrOXYzine (ATARAX) 10 MG TAB PO SCH ×2 (08:07→21:00)
[2018-09-24] MEDS: LOSARTAN 100 MG (COZAAR) TABLET PO SCH (08:07)
[2018-09-24] MEDS: DULoxetine 30 MG (CYMBALTA) CAP PO SCH (08:07)
[2018-09-24] MEDS: APIXABAN 5 MG (ELIQUIS) TABLET PO SCH ×2 (08:07→21:01)
[2018-09-24] MEDS: CYCLOBENZAPRINE 10 MG (FLEXERIL) TAB PO SCH ×3 (08:07→21:00)
[2018-09-24] MEDS ORDERED: NON-FORMULARY MEDICATION 1 EA EA (Potassium Chloride 20 MEQ) PO SCH (09:00)
[2018-09-24] MEDS ORDERED: SOLIFENACIN 5 MG TAB (VESICARE) NON-FORMULARY PO SCH (09:00)
--- NOTE | 2018-09-24 10:44 | Progress Note-Hospitalist ---
Subjective HPI/CC On Admission Date Seen by Provider: Sep 24, 2018 Time Seen by Provider: 10:38 Pt is a 53yoCF with a PMH of IDDMII, HTN, perpipheral neuropathy, depression and anxiety, COPD, and history of PE who presented to the ER with a 1 week history of nausea, vomiting, and diarrhea. She states that she started to feel ill around 1 week ago and was supposed to see her doctor yesterday but when she went to stand up she got dizzy and had to sit back down. She called her niece to help her get to her appointment but her niece was unable to get her up so EMS was called and brought her to the ER for evaluation. She states she has felt similarly when she has had a UTI before and thought that may be what is going on. This morning she states she is feeling better and has had no diarrhea. She also expresses concern about her safety living at home alone due to her multiple medical problems. Subjective/Events-last exam Pt reports feeling much better. Up in chair. Complaints of possible knot in her left breast. Denies pain to me but stated had some pain to nurse. Focused Exam Lactate Level 09/22/18 15:10: Lactic Acid Level 1.60 Objective Exam Vital Signs Vital Signs Date Time Temp Pulse Resp B/P (MAP) Pulse Ox O2 Delivery O2 Flow Rate FiO2 09/24/18 07:37 97.2 95 18 120/60 (80) 98 09/24/18 07:34 Nasal Cannula 3.00 Capillary Refill : Less Than 3 Seconds General Appearance: No Apparent Distress, Obese HEENT: No Scleral Icterus (L), No Scleral Icterus (R) Respiratory: Lungs Clear, No Respiratory Distress Cardiovascular: Regular Rate, Rhythm, No Murmur Gastrointestinal: Normal Bowel Sounds, Non Tender, Soft Neurologic/Psychiatric: Alert, Oriented x3 Skin: Normal Color, Warm/Dry Comments left breast exam revealed no skin changes, no discharge, no palpable masses, no tenderness Results/Procedures Lab Patient resulted labs reviewed. Assessment/Plan Assessment and Plan Assess & Plan/Chief Complaint Sepsis Diagnosis/Problems Diagnosis/Problems (1) Sepsis Status: Acute Assessment & Plan: From UTI Urine growing GNR, blood cultures NGTD Continue Rocephin, await sensitivities Qualifiers: Sepsis type: sepsis due to unspecified organism Qualified Codes: A41.9 - Sepsis, unspecified organism (2) UTI (urinary tract infection) Status: Acute Assessment & Plan: Rocephin as above Qualifiers: Urinary tract infection type: acute cystitis Hematuria presence: with hematuria Qualified Codes: N30.01 - Acute cystitis with hematuria (3) Gastroenteritis and colitis, viral Status: Acute Assessment & Plan: Resolved (4) Insulin dependent diabetes mellitus Status: Chronic Assessment & Plan: Continue home insulin SSI (5) Essential (primary) hypertension Status: Chronic Assessment & Plan: Improved with home meds (6) COPD (chronic obstructive pulmonary disease) Status: Chronic Assessment & Plan: Continue home inhalers MAT protocol Qualifiers: COPD type: unspecified COPD Qualified Codes: J44.9 - Chronic obstructive pulmonary disease, unspecified (7) Lump of breast, left Assessment & Plan: Subjective lump Non palplable on my exam Recommended close follow up with PCP for mammogram or diagnostic usg Clinical Quality Measures DVT/VTE Risk/Contraindication: Risk Factor Score Per Nursin RFS Level Per Nursing on Admit: 2=Moderate SUHAS ALLRED MD Sep 24, 2018 10:44
--- NOTE | 2018-09-24 11:43 | Physical Therapy Evaluation ---
PT Evaluation-General Medical Diagnosis Admission Date Sep 22, 2018 at 17:40 Medical Diagnosis: Sepsis, UTI Onset Date: Sep 22, 2018 Therapy Diagnosis Therapy Diagnosis: weakness, decreased mobility Height/Weight Height (Feet): 5 Height (Inches): 9.00 Weight (Pounds): 225 Weight (Ounces): 3.0 Precautions Precautions/Isolations: Standard Precautions Weight Bear Status Right Lower Extremity: Right Weight Bearing/Tolerated Left Lower Extremity: Left Weight Bearing/Tolerated Referral Physician: Dr. Valdse Reason for Referral: Evaluation/Treatment Medical History Pertinent Medical History: Arthritis, COPD, DM, GERD, HTN, Neuropathy, Smoking Additional Medical History Surgeries: Appendectomy, Gallbladder, Hysterectomy Respiratory: COPD, Pneumonia Currently Using CPAP: No Currently Using BIPAP: No Cardiac: High Cholesterol, Hypertension Neurological: Neuropathy Reproductive: No (partial hysterectomy of R side. ) Sexually Transmitted Disease: No HIV/AIDS: No Female Reproductive Disorders: Denies Genitourinary: Kidney Infection, UTI-Chronic Gastrointestinal: Gastroesophageal Reflux, Pancreatitis Musculoskeletal: Arthritis Endocrine: Diabetes, Insulin dep HEENT: Tinnitis Loss of Vision: Denies Hearing Impairment: Denies Psychosocial: Anxiety, Depression History of Blood Disorders: No Adverse Reaction to Blood [place]: No Current History Pt to ER by EMS with c/o nausea and vomiting for 1 week with a fall. Reviewed History: Yes Social History Home: Single Level Current Living Status: Alone Entry Into Home: Stairs With Railing PT Steps Into Home: 2 Prior/Core FIM Prior Level of Function Therapy Code Descriptions/Definitions Functional [place] Measure: 0=Not Assessed/NA 4=Minimal Assistance 1=Total Assistance 5=Supervision or Setup 2=Maximal Assistance 6=Modified [place] 3=Moderate Assistance 7=Complete [place] Therapy Quality Codes: 6 Independent with activity with or without an assistive device 5 Patient requires set up or clean up by helper. Patient completes activity by themselves 4 Supervision or touching assist (CGA). [place] provide cues , steadying assist 3 The helper provides less than half the effort to complete the activity 2 The helper provides more than half the effort to complete the activity 1 Dependent. The helper does all the effort to complete an activity 7 Patient refused to complete or attempt activity 9 The patient did not perform the activity before the current illness or injury 88 Not attempted due to Medical conditions or safety concerns Functional Abilities and Goals: Independent: Patient completed the activities by him/herself, with or without an assistive device, with no assistance from a helper. Needed Some Help: Patient needed partial assistance from another person to complete activities. Dependent: A helper completed the activities for the patient. Unknown: Not Applicable: Bed Mobility: 7 Transfers (B,C,W/C) (FIM): 7 Gait: 6 Stairs: 6 Indoor Mobility (Ambulation): Independent Stairs: Independent Prior Devices Use: Walker Prior Device Use: 4WW PT Evaluation-Current Subjective Pt return from restroom using no AD and agrees to PT. Pain Numeric Pain Scale: 8 Location: Right Location Body Site: Knee Pt/Family Goals Pt to return home. Objective Patient Orientation: Person, Situation ROM/Strength ROM Lower Extremities WNL Strength Lower Extremities Gross motor bilateral 3+/5 pt reports weakness is due to neuropathy pain. Integumentary/Posture Bowel Incontinence: No Bladder Incontinence: No Neuromuscular (Tone, Coordination, Reflexes) NT Sensory Hearing: Functional Sensation Right Lower Extremit: Impaired Sensation Left Lower Extremity: Impaired Transfers Therapy Code Descriptions/Definitions Functional [place] Measure: 0=Not Assessed/NA 4=Minimal Assistance 1=Total Assistance 5=Supervision or Setup 2=Maximal Assistance 6=Modified [place] 3=Moderate Assistance 7=Complete [place] Transfers (B, C, W/C) (FIM): 6 Scootin Sit to/from Stand: 6 Gait Mode of Locomotion: Walk Anticipated Mode of Locomotion: Walk Gait (FIM): 4 Distance (FIM): 3=150 ft Distance: 300' Gait Level of Assist: 4 Gait Persons Needed: 1 Gait Assistive Device: FWW Balance Sitting Static: Good Sitting Dynamic: Good Standing Static: Good Standing Dynamic: Good Assessment/Needs Pt was able to perform transfer from recliner to FWW mod indep. Pt able to amb with FWW and CGA for safety 300'. Pt returned to room, is in recliner, and has all needs met. PT to increase activity as pt can tolerate. Rehab Potential: Fair Post Rehab Potential-Barriers: co-morbidities, smoking PT Short Term Goals Short Term Goals Time Frame: Oct 01, 2018 Transfers (B,C,W/C) (FIM): 7 Gait (FIM): 6 Distance (FIM): 3=150 ft Gait Distance Comment: 500' Gait Level of Assist: 6 Gait Assistive Device: FWW PT Plan Problem List Problem List: Activity Tolerance, Functional Strength, Safety, Balance, Gait, Transfer, Bed Mobility, ROM Treatment/Plan Treatment Plan: Continue Plan of Care Treatment Plan: Bed Mobility, Education, Functional Activity Cait, Functional Strength, Gait, Safety, Therapeutic Exercise, Transfers Treatment Duration: Oct 01, 2018 Frequency: 6 times per week Estimated Hrs Per Day: .25 hour per day (15-30') Patient and/or Family Agrees t: Yes Safety Risks/Education Patient Education: Gait Training, Transfer Techniques, Correct Positioning, Safety Issues Teaching Recipient: Patient Teaching Methods: Demonstration, Discussion Response to Teaching: Reinforcement Needed Discharge Recommendations Plan Patient will perform bed mobility and transfer training, balance and endurance training, functional strengthening, stair training, gait training, and education to improve functional mobility and independence at home. Therapy D/C Recommendations: Home w/ Family Support, Home Independently Time/GCodes Time In: 1115 Time Out: 1132 Total Billed Treatment Time: 17 Total Billed Treatment 1 visit EVlowC 17 min KELLY DEVRIES PT Sep 24, 2018 11:43
[2018-09-24] MEDS: amLODIPine 2.5MG (NORVASC) TAB PO SCH (11:45)
[2018-09-24 15:07] VITALS: BP 106/53
[2018-09-24] MEDS: cefTRIAXone 1,000 MG/SWFI 10 ML IV PUSH IV SCH ×2 (17:19)
[2018-09-24] MEDS: HYDROcodone/APAP 5 MG/325 MG (LORTAB) TAB PO SCH (21:00)
[2018-09-24] MEDS: ROSUVASTATIN 20 MG (CRESTOR) TABLET PO SCH (21:00)
[2018-09-24] MEDS: AMITRIPTYLINE 50 MG (ELAVIL) TAB PO SCH (21:01)
[2018-09-25] VITALS: BP 138/75
[2018-09-25 04:00] VITALS: BP 139/67
[2018-09-25] MEDS: 1/2 NS W/KCL 20 MEQ/L 1,000 ML IV SCH ×2 (05:30→11:22)
[2018-09-25] MEDS: inSUlin ASPART (NovoLOG) 1 UNIT/0.01 ML (CHARGE PER UNIT) SC SCH ×4 (06:26→11:21)
[2018-09-25] MEDS: KCL 20 MEQ TAB (K-DUR) PO SCH (06:27)
[2018-09-25] MEDS: PANTOPRAZOLE 40 MG (PROTONIX) TAB PO SCH (06:27)
[2018-09-25] MEDS: FUROSEMIDE 40 MG (LASIX) TAB PO SCH (06:27)
[2018-09-25 08:00] VITALS: BP 112/75
[2018-09-25] MEDS: hydrOXYzine (ATARAX) 10 MG TAB PO SCH (08:03)
[2018-09-25] MEDS: inSUlin DETERMIR 1 UNIT/0.01 ML (LEVEMIR) CHARGE PER UNIT SQ SCH (08:03)
[2018-09-25] MEDS: TROSPIUM 20 MG (SANCTURA) TAB PO SCH (08:03)
[2018-09-25] MEDS: PREGABALIN 75 MG (LYRICA) CAP PO SCH (08:03)
[2018-09-25] MEDS: DULoxetine 30 MG (CYMBALTA) CAP PO SCH (08:03)
[2018-09-25] MEDS: APIXABAN 5 MG (ELIQUIS) TABLET PO SCH (08:04)
[2018-09-25] MEDS: LOSARTAN 100 MG (COZAAR) TABLET PO SCH (08:04)
[2018-09-25] MEDS: CYCLOBENZAPRINE 10 MG (FLEXERIL) TAB PO SCH ×2 (08:04→12:25)
--- NOTE | 2018-09-25 10:28 | Physical Therapy Daily Note ---
PT Daily Note-Current Subjective Agrees to PT. Reports she feels blue today because on this date 5 years ago, she buried her . Also mentions she is sad as none of her family has visited her since she has been here. Pain Numeric Pain Scale: 3 Location: No Pain Reported, Left Location Body Site: Foot Pain Description: Pressure Comment: Pain with WB but able to continue to walk Mental Status Patient Orientation: Person, Place, Time, Situation Transfers Therapy Code Descriptions/Definitions Functional [place] Measure: 0=Not Assessed/NA 4=Minimal Assistance 1=Total Assistance 5=Supervision or Setup 2=Maximal Assistance 6=Modified [place] 3=Moderate Assistance 7=Complete [place] Therapy Quality Codes: 6 Independent with activity with or without an assistive device 5 Patient requires set up or clean up by helper. Patient completes activity by themselves 4 Supervision or touching assist (CGA). [place] provide cues , steadying assist 3 The helper provides less than half the effort to complete the activity 2 The helper provides more than half the effort to complete the activity 1 Dependent. The helper does all the effort to complete an activity 7 Patient refused to complete or attempt activity 9 The patient did not perform the activity before the current illness or injury 88 Not attempted due to Medical conditions or safety concerns Pt reports she has been up ad nisha in her room and able to get to and from the bathroom on her own. Pt able to transfer sit to stand without assist. Weight Bearing Right Lower Extremity: Right Weight Bearing/Tolerated Left Lower Extremity: Left Weight Bearing/Tolerated Gait Training Gait (FIM): 7 Distance (FIM): 3=150 ft Distance: 200 ft Gait Assistive Device: None wide OMARI but steady and without LOB. Safe to walk on her own. Educated pt to walk frequently to maintain her strength and mobility while in the hospital. Treatments Gait training and education on safety with mobiltiy. Assessment Current Status: Excellent Progress Pt safe with transfers and gait; skilled PT is not indicated at this time. She is safe to walk without assist at this time. PT Short Term Goals Short Term Goals Time Frame: Oct 01, 2018 Transfers (B,C,W/C) (FIM): 7 (met) Gait (FIM): 6 (met) Distance (FIM): 3=150 ft Gait Distance Comment: 500' Gait Level of Assist: 6 Gait Assistive Device: FWW PT Plan Treatment/Plan Treatment Plan: Discontinue PT, goals met Treatment Plan: Bed Mobility, Education, Functional Activity Cait, Functional Strength, Gait, Safety, Therapeutic Exercise, Transfers Treatment Duration: Oct 01, 2018 Frequency: 6 times per week Estimated Hrs Per Day: .25 hour per day (15-30') Patient and/or Family Agrees t: Yes Safety Risks/Education Patient Education: Gait Training, Transfer Techniques, Safety Issues Teaching Recipient: Patient Teaching Methods: Discussion Response to Teaching: Verbalize Understanding, Return Demonstration Discharge Recommendations Plan DC PT; skilled intervention not indicated at this time. If her situation changes, please reconsult. Time/GCodes Time In: 1005 Time Out: 1017 Total Billed Treatment Time: 12 Total Billed Treatment visit GT 12 TRACY BARBA PT Sep 25, 2018 10:28
[2018-09-25] MEDS: amLODIPine 2.5MG (NORVASC) TAB PO SCH (11:22)
--- NOTE | 2018-09-25 12:48 | Discharge Inst-Simple/Standard ---
Discharge Inst-Standard Discharge Medications New, Converted or Re-Newed RX: Transmitted to Pharmacy Patient Instructions/Follow Up Plan of Care/Instructions/FU: Please continue to take your medications as written, even if you start to feel better. Activity as Tolerated: Yes Discharge Diet: ADA Diet Return to The Hospital For: Fever, shortness of breath, chest pain, confusion, weakness, if you feel you are getting worse. SUHAS ALLRED MD Sep 25, 2018 12:48
[2018-09-25] MEDS ORDERED: AMOX-358 PO (12:53)
[2018-09-25] MEDS ORDERED: NITR-65 PO (12:57)
--- NOTE | 2018-09-25 14:29 | NUR ---
CM/SS spoke with the patient after RNing stated she had questions about paperwork. Patient had DPOA and declaration on treatment paperwork that she was given by [facility]. Discussed how papers can be filled out and the process, she plans to read the information and then will have notary later if decides wants to fill it out.
--- NOTE | 2018-09-25 15:47 | Discharge Summary-Hospitalist ---
Diagnosis/Chief Complaint Date of Admission Sep 22, 2018 at 17:40 Date of Discharge Discharge Date: Sep 25, 2018 Admission Diagnosis Sepsis Discharge Diagnosis (1) Sepsis Status: Acute Assessment & Plan: From UTI Urine culture grew ESBl klebsiella (2) UTI (urinary tract infection) Status: Acute (3) Gastroenteritis and colitis, viral Status: Acute Assessment & Plan: Resolved (4) Insulin dependent diabetes mellitus Status: Chronic Assessment & Plan: Continue home insulin SSI (5) Essential (primary) hypertension Status: Chronic Assessment & Plan: Improved with home meds (6) COPD (chronic obstructive pulmonary disease) Status: Chronic Assessment & Plan: Continue home inhalers MAT protocol (7) Lump of breast, left Assessment & Plan: Subjective lump Non palplable on my exam Recommended close follow up with PCP for mammogram or diagnostic usg Discharge Summary Discharge Physical Exam Allergies: Coded Allergies: influenza virus vaccine, specific (Unverified Allergy, Intermediate, rash , 09/23/18) aspirin (Unverified Allergy, Unknown, convulsions, 09/23/18) metformin (Verified Adverse Reaction, Intermediate, joint pain, 09/23/18) hydromorphone HCl (Unverified Adverse Reaction, Mild, VOMITING, 01/06/11) Vitals & I&Os Vital Signs Date Time Temp Pulse Resp B/P (MAP) Pulse Ox O2 Delivery O2 Flow Rate FiO2 09/25/18 14:30 09/25/18 08:51 88 95 21 09/25/18 08:51 Room Air 09/25/18 08:00 98.0 18 09/24/18 08:00 3.00 General Appearance: No Apparent Distress, Obese HEENT: No Scleral Icterus (L), No Scleral Icterus (R) Respiratory: Lungs Clear, No Respiratory Distress Cardiovascular: Regular Rate, Rhythm, No Murmur Gastrointestinal: Normal Bowel Sounds, Non Tender, Soft Skin: Normal Color, Warm/Dry Neurologic/Psychiatric: Alert, Oriented x3 Hospital Course Pt was admitted to the hospital for treatment of sepsis caused by UTI. She has a long history of recurrent UTIs and thus was kept in the hospital until sensitivities were available. Her urine culture was positive for ESBL Klebsiella sensitive to macrobid. Blood cultures were negative. She was discharged home on Macrobid to complete course. Return precautions were discussed and she was comfortable with plan to DC home. She is to follow up with her PCP to follow up this hospital stay. Labs (last 24 hrs) Microbiology 09/22/18 Blood Culture - Preliminary, Resulted No growth 09/22/18 Influenza Types A,B Antigen ([place]) - Final, Complete 09/22/18 Urine Culture - Final, Complete Klebsiella pneumoniae Patient resulted labs reviewed. Pending Labs Discussion & Recommendations Discharge Planning: >30 minutes discharge planning She did complain of subjective left breast mass. Breast exam was unremarkable. She was informed of the importance of following up with her PCP for mammography and she verbalized understanding. Discharge Home Medications: Active Scripts Active Macrobid 100 mg Capsule (Nitrofurantoin Monohyd/M-Cryst) 100 Mg Capsule 1 Tab PO BID Reported Fluticasone Propionate 16 Gm [place].susp 2 Sprays NS DAILY PRN Hydrocodone-Acetamin 5-325 mg (Hydrocodone/Acetaminophen) 1 Each Tablet 1 Tab PO HS Lyrica (Pregabalin) 150 Mg Capsule 150 Mg PO TID Zolpidem Tartrate 5 Mg Tablet 5 Mg PO HS Multivitamins (Multivitamin) 1 Each Tablet 1 Tab PO DAILY Cranberry Plus Vitamin C Sftgl (Cranberry Conc/Ascorbic Acid) 1 Each Capsule 1 Cap PO HS Potassium Chloride 20 Meq Tablet.er 20 Meq PO DAILY Januvia (Sitagliptin Phosphate) 100 Mg Tablet 100 Mg PO DAILY Farxiga (Dapagliflozin Propanediol) 10 Mg Tablet 10 Mg PO DAILY Amlodipine Besylate 2.5 Mg Tablet 2.5 Mg PO 1200 LAST FILLED #90 10-17-18 Proair Hfa (Albuterol Sulfate) 1 Puff Puff 2 Puff IH QID PRN Hydroxyzine HCl 50 Mg Tablet 50 Mg PO BID Cyclobenzaprine HCl 10 Mg Tablet 10 Mg PO TID Tramadol HCl 50 Mg Tablet 100 Mg PO QID PRN TAKES 2 (50MG) TABLETS Furosemide 40 Mg Tablet 40 Mg PO BID Losartan Potassium 100 Mg Tablet 100 Mg PO DAILY Fish Oil 1,000 mg Capsule ([place] 3 Polyunsat Fatty Acids) 1,000 Mg Cap 1,000 Mg PO HS Novolog Flexpen (Insulin Aspart) 300 Units/3 Ml Solution 50 Units SQ TIDAC Levemir Flextouch (Insulin Detemir) 100 Unit/1 Ml Insuln.pen 100 Unit SQ BID Vesicare (Solifenacin Succinate) 5 Mg Tablet 5 Mg PO DAILY Omeprazole 40 Mg Capsule.dr 40 Mg PO DAILY Duloxetine HCl 30 Mg Capsule.dr 30 Mg PO HS Eliquis (Apixaban) 5 Mg Tablet 5 Mg PO BID Rosuvastatin Calcium 40 Mg Tablet 40 Mg PO DAILY Amitriptyline HCl 50 Mg Tablet 50 Mg PO HS Instructions to patient/family Please see electronic discharge instructions given to patient. Clinical Quality Measures DVT/VTE Risk/Contraindication: Risk Factor Score Per Nursin RFS Level Per Nursing on Admit: 2=Moderate Copy Copies To 1: CABRERA SORIANO DO Problem Qualifiers (1) Sepsis: Sepsis type: sepsis due to unspecified organism Qualified Codes: A41.9 - Sepsis, unspecified organism (2) UTI (urinary tract infection): Urinary tract infection type: acute cystitis Hematuria presence: with hematuria Qualified Codes: N30.01 - Acute cystitis with hematuria (3) COPD (chronic obstructive pulmonary disease): COPD type: unspecified COPD Qualified Codes: J44.9 - Chronic obstructive pulmonary disease, unspecified SUHAS ALLRED MD Sep 25, 2018 15:47
== END 2018-09-25 15:00 | disposition home or self-care (01) | DRG 872 ==
LOC: EDUNIT# 15:04 → ER 15:05 → 4TH 17:40
PROVIDERS: ADMIT Family Medicine; ATTEND Family Medicine
DX: A41.9 Sepsis, unspecified organism (principal); N30.01 Acute cystitis with hematuria; A08.4 Viral intestinal infection, unspecified; E11.42 Type 2 diabetes mellitus with diabetic polyneuropathy; I10 Essential (primary) hypertension; J44.9 Chronic obstructive pulmonary disease, unspecified; F41.9 Anxiety disorder, unspecified; F32.9 Major depressive disorder, single episode, unspecified; F17.210 Nicotine dependence, cigarettes, uncomplicated; E78.00 Pure hypercholesterolemia, unspecified; K21.9 Gastro-esophageal reflux disease without esophagitis; H93.19 Tinnitus, unspecified ear; M19.91 Primary osteoarthritis, unspecified site; N63.20 Unspecified lump in the left breast, unspecified quadrant; Z79.4 Long term (current) use of insulin; Z87.19 Personal history of other diseases of the digestive system; Z86.19 Personal history of other infectious and parasitic diseases; Z79.01 Long term (current) use of anticoagulants; Z86.711 Personal history of pulmonary embolism
CPT/HCPCS: 36415; 80048; 80053; 81000; 82962; 83605; 83690; 85025; 87040; 87077; 87088; 87186; 87804; 94760

== ENCOUNTER 2018-10-26 22:56 | Observation (INO) | payer MEDICARE, MEDICAID ==
[~2018-10-26] VITALS: Ht 175.3 cm; Wt 106.6 kg
[~2018-10-26 22:56] MED LIST changes: +AMLO2.5T4 PO; +AMOX-358 PO; +CRAN1CAP7 PO; +DAPA10TA PO; +FLUT16SP22 NS; +HYDR-3812 PO; +MULT1TAB69 PO; +NITR-65 PO; +POTA-51 PO; +ZOLP5TAB PO; +ZOLP5TAB7 PO
--- OUTSIDE RECORDS SUMMARY | 2018-10-26 23:05 | XMS REPORT | Clinical Summary ---
Author Author [facility] Organization [facility] Address Unknown Phone Unavailable Care Team Providers Care Senior Applications Developer Name Role Phone PCP Unavailable Allergies Not [...]
--- OUTSIDE RECORDS SUMMARY | 2018-10-26 23:12 | XMS REPORT | Continuity of Care Document ---
Author Author [facility] Address Unknown Phone Unavailable Allergies Active Description Code Type Severity Reaction Onset Reported/Identified Relationship to Patient Clinical Status Yes aspirin Drug Allergy N/A N/A 08/30/2010 Yes morphine Drug Allergy N/A N/A 08/30/2010 Yes aspirin Drug Allergy 08/30/2010 Yes morphine Drug Allergy 08/30/2010 Yes hydromorphone HCl [id number] Drug Allergy Mild VOMITING 01/06/2011 Yes Dilaudid [...] hr Drug Allergy N/A N/A Yes aspirin [id number] Drug Allergy Unknown N/A 03/25/2014 Yes morphine [id number] Drug Allergy Unknown N/A 03/25/2014 Yes FLU VACCINE FLU VACCINE Unknown N/A 07/23/2014 Yes influenza virus vacc,specific [id number] Drug Allergy Unknown N/A 2013 Yes influenza virus vaccine, specific [id number] Drug Allergy Unknown N/A 07/23 Yes influenza virus vaccine, specific [id number] Drug Allergy Moderate rash 07/2019 Yes metformin [id number] Drug Allergy Moderate joint pain 09/23/2018 Yes aspirin [id number] Drug Allergy Unknown convulsions 09/23/2018 Medications There is no data. Problems Date Dx Coded Attending Type Code Diagnosis Diagnosed By 08/30/2010 250.02 DIABETES II UNCONTROLLED 08/30/2010 401.1 ESSENTIAL HYPERTENSION BENIGN 08/30/2010 AHSAN CHANG APRN 250.02 DIABETES II UNCONTROLLED 08/30/2010 AHSAN CHANG APRN 401.1 ESSENTIAL HYPERTENSION BENIGN 08/30/2010 PAMELA LOG FEEDER, MALIK R 250.02 DIABETES II UNCONTROLLED 08/30/2010 PAMELA LOG FEEDER, MALIK R 401.1 ESSENTIAL HYPERTENSION BENIGN 08/30/2010 BAH DO, COCO K 250.02 DIABETES II UNCONTROLLED 08/30/2010 BAH DO, COCO K 401.1 ESSENTIAL HYPERTENSION BENIGN 08/30/2010 BAH DO, COCO K 250.02 DIABETES II UNCONTROLLED 08/30/2010 BAH DO, COCO K 401.1 ESSENTIAL HYPERTENSION BENIGN 08/30/2010 MADL LOG FEEDER, ALBIN L 250.02 DIABETES II UNCONTROLLED 08/30/2010 MADL LOG FEEDER, ALBIN L 401.1 ESSENTIAL HYPERTENSION BENIGN 08/30/2010 MADL LOG FEEDER, ALBIN L 250.02 DIABETES II UNCONTROLLED 08/30/2010 MADL LOG FEEDER, ALBIN L 401.1 ESSENTIAL HYPERTENSION BENIGN 08/30/2010 BAH DO, COCO K 250.02 DIABETES II UNCONTROLLED 08/30/2010 BAH DO, COCO K 401.1 ESSENTIAL HYPERTENSION BENIGN 08/30/2010 BAH DO, COCO K 250.02 DIABETES II UNCONTROLLED 08/30/2010 BAH DO, COCO K 401.1 ESSENTIAL HYPERTENSION BENIGN 08/30/2010 DEANDRE CUEVAS MD N 250.02 DIABETES II UNCONTROLLED 08/30/2010 DEANDRE CUEVAS MD N 401.1 ESSENTIAL HYPERTENSION BENIGN 08/30/2010 BAH DO, COCO K 250.02 DIABETES II UNCONTROLLED 08/30/2010 BAH DO, COCO K 401.1 ESSENTIAL HYPERTENSION BENIGN 08/30/2010 MADL LOG FEEDER, ALBIN L 250.02 DIABETES II UNCONTROLLED 08/30/2010 MADL LOG FEEDER, ALBIN L 401.1 ESSENTIAL HYPERTENSION BENIGN 08/30/2010 BAH DO, COCO K 250.02 DIABETES II UNCONTROLLED 08/30/2010 BAH DO, COCO K 401.1 ESSENTIAL HYPERTENSION BENIGN 08/30/2010 DEANDRE CUEVAS MD N 250.02 DIABETES II UNCONTROLLED 08/30/2010 DEANDRE CUEVAS MD N 401.1 ESSENTIAL HYPERTENSION BENIGN 08/30/2010 MADL LOG FEEDER, ALBIN L 250.02 DIABETES II UNCONTROLLED 08/30/2010 MADL LOG FEEDER, ALBIN L 401.1 ESSENTIAL HYPERTENSION BENIGN 08/30/2010 MADL LOG FEEDER, ALBIN L 250.02 DIABETES II UNCONTROLLED 08/30/2010 MADL LOG FEEDER, ABLIN L 401.1 ESSENTIAL HYPERTENSION BENIGN 08/30/2010 BAH DO, COCO K 250.02 DIABETES II UNCONTROLLED 08/30/2010 BAH DO, COCO K 401.1 ESSENTIAL HYPERTENSION BENIGN 09/18/2010 357.9 NEUROPATHY UNSP 09/18/2010 AHSAN CHANG APRN 357.9 NEUROPATHY UNSP 09/18/2010 MALIK SANTIAGO APRN 357.9 NEUROPATHY UNSP 09/18/2010 BAH DO, COCO K 357.9 NEUROPATHY UNSP 09/18/2010 BAH DO, COCO K 357.9 NEUROPATHY UNSP 09/18/2010 MADL LOG FEEDER, ALBIN L 357.9 NEUROPATHY UNSP 09/18/2010 MADL LOG FEEDER, ALBIN L 357.9 NEUROPATHY UNSP 09/18/2010 BAH DO, COCO K 357.9 NEUROPATHY UNSP 09/18/2010 BAH DO, COCO K 357.9 NEUROPATHY UNSP 09/18/2010 DEANDRE CUEVAS MD N 357.9 NEUROPATHY UNSP 09/18/2010 BAH DO, COCO K 357.9 NEUROPATHY UNSP 09/18/2010 MADL LOG FEEDER, ALBIN L 357.9 NEUROPATHY UNSP 09/18/2010 BAH DO, COCO K 357.9 NEUROPATHY UNSP 09/18/2010 DEANDRE CUEVAS MD N 357.9 NEUROPATHY UNSP 09/18/2010 [facility] LOG FEEDER, ALBIN L 357.9 NEUROPATHY UNSP 09/18/2010 [facility] LOG FEEDER, ALBIN L 357.9 NEUROPATHY UNSP 09/18/2010 BAH DO, COCO K 357.9 NEUROPATHY UNSP 10/02/2010 112.1 CANDIDIASIS VAGINAL 10/02/2010 611.71 MASTODYNIA 10/02/2010 611.72 LUMP OR MASS IN BREAST 10/02/2010 V72.31 HEMODIALYSIS CHARGE NURSE EXAM, ROUTINE 10/02/2010 AHSAN CHANG APRN 112.1 CANDIDIASIS VAGINAL 10/02/2010 AHSAN CHANG APRN 611.71 MASTODYNIA 10/02/2010 AHSAN CHANG APRN 611.72 LUMP OR MASS IN BREAST 10/02/2010 AHSAN CHANG APRN V72.31 HEMODIALYSIS CHARGE NURSE EXAM, ROUTINE 10/02/2010 PAMELA LOG FEEDER, MALIK R 112.1 CANDIDIASIS VAGINAL 10/02/2010 PAMELA LOG FEEDER, MALIK R 611.71 MASTODYNIA 10/02/2010 PAMELA LOG FEEDER, MALIK R 611.72 LUMP OR MASS IN BREAST 10/02/2010 PAMELA LOG FEEDER, MALIK R V72.31 HEMODIALYSIS CHARGE NURSE EXAM, ROUTINE 10/02/2010 BAH DO, COCO K 112.1 CANDIDIASIS VAGINAL 10/02/2010 BAH DO, COCO K 611.71 MASTODYNIA 10/02/2010 BAH DO, COCO K 611.72 LUMP OR MASS IN BREAST 10/02/2010 BAH DO, COCO K V72.31 HEMODIALYSIS CHARGE NURSE EXAM, ROUTINE 10/02/2010 BAH DO, COCO K 112.1 CANDIDIASIS VAGINAL 10/02/2010 BAH DO, COCO K 611.71 MASTODYNIA 10/02/2010 BAH DO, COCO K 611.72 LUMP OR MASS IN BREAST 10/02/2010 BAH DO, COCO K V72.31 HEMODIALYSIS CHARGE NURSE EXAM, ROUTINE 10/02/2010 MADL LOG FEEDER, ALBIN L 112.1 CANDIDIASIS VAGINAL 10/02/2010 MADL LOG FEEDER, ALBIN L 611.71 MASTODYNIA 10/02/2010 MADL LOG FEEDER, ALBIN L 611.72 LUMP OR MASS IN BREAST 10/02/2010 MADL LOG FEEDER, ALBIN L V72.31 HEMODIALYSIS CHARGE NURSE EXAM, ROUTINE 10/02/2010 MADL LOG FEEDER, ALBIN L 112.1 CANDIDIASIS VAGINAL 10/02/2010 MADL LOG FEEDER, ALBIN L 611.71 MASTODYNIA 10/02/2010 MADL LOG FEEDER, ALBIN L 611.72 LUMP OR MASS IN BREAST 10/02/2010 MADL LOG FEEDER, ALBIN L V72.31 HEMODIALYSIS CHARGE NURSE EXAM, ROUTINE 10/02/2010 BAH DO, COCO K 112.1 CANDIDIASIS VAGINAL 10/02/2010 BAH DO, COCO K 611.71 MASTODYNIA 10/02/2010 BAH DO, COCO K 611.72 LUMP OR MASS IN BREAST 10/02/2010 BAH DO, COCO K V72.31 HEMODIALYSIS CHARGE NURSE EXAM, ROUTINE 10/02/2010 BAH DO, COCO K 112.1 CANDIDIASIS VAGINAL 10/02/2010 BAH DO, COCO K 611.71 MASTODYNIA 10/02/2010 BAH DO COCO K 611.72 LUMP OR MASS IN BREAST 10/02/2010 NIURKA SINGH COCO K V72.31 HEMODIALYSIS CHARGE NURSE EXAM, ROUTINE 10/02/2010 DEANDRE CUEVAS MD N 112.1 CANDIDIASIS VAGINAL 10/02/2010 DEANDRE CUEVAS MD 611.71 MASTODYNIA 10/02/2010 DEANDRE CUEVAS MD 611.72 LUMP OR MASS IN BREAST 10/02/2010 DEANDRE CUEVAS MD V72.31 HEMODIALYSIS CHARGE NURSE EXAM, ROUTINE 10/02/2010 NIURKA SINGH COCO K 112.1 CANDIDIASIS VAGINAL 10/02/2010 BAH DO COCO K 611.71 MASTODYNIA 10/02/2010 BAH DO COCO K 611.72 LUMP OR MASS IN BREAST 10/02/2010 NIURKA SINGH COCO K V72.31 HEMODIALYSIS CHARGE NURSE EXAM, ROUTINE 10/02/2010 MADL LOG FEEDER, ALBIN L 112.1 CANDIDIASIS VAGINAL 10/02/2010 MADL LOG FEEDER, ALBIN L 611.71 MASTODYNIA 10/02/2010 MADL LOG FEEDER, ALBIN L 611.72 LUMP OR MASS IN BREAST 10/02/2010 MADL LOG FEEDER, ALBIN L V72.31 HEMODIALYSIS CHARGE NURSE EXAM, ROUTINE 10/02/2010 NIURKA SINGH COCO K 112.1 CANDIDIASIS VAGINAL 10/02/2010 BAH DO COCO K 611.71 MASTODYNIA 10/02/2010 BAH DO COCO K 611.72 LUMP OR MASS IN BREAST 10/02/2010 SABRINA BAH DOA K V72.31 HEMODIALYSIS CHARGE NURSE EXAM, ROUTINE 10/02/2010 DEANDRE CUEVAS MD N 112.1 CANDIDIASIS VAGINAL 10/02/2010 DEANDRE CUEVAS MD N 611.71 MASTODYNIA 10/02/2010 DEANDRE CUEVAS MD N 611.72 LUMP OR MASS IN BREAST 10/02/2010 DEANDRE CUEVAS MD V72.31 HEMODIALYSIS CHARGE NURSE EXAM, ROUTINE 10/02/2010 MADL LOG FEEDER, ALBIN L 112.1 CANDIDIASIS VAGINAL 10/02/2010 MADL LOG FEEDER, ALBIN L 611.71 MASTODYNIA 10/02/2010 MADL LOG FEEDER, ALBIN L 611.72 LUMP OR MASS IN BREAST 10/02/2010 MADL LOG FEEDER, ALBIN L V72.31 HEMODIALYSIS CHARGE NURSE EXAM, ROUTINE 10/02/2010 MADL LOG FEEDER, ALBIN L 112.1 CANDIDIASIS VAGINAL 10/02/2010 MADL LOG FEEDER, ALBIN L 611.71 MASTODYNIA 10/02/2010 MADL LOG FEEDER, ALBIN L 611.72 LUMP OR MASS IN BREAST 10/02/2010 MADL LOG FEEDER, ALBIN L V72.31 HEMODIALYSIS CHARGE NURSE EXAM, ROUTINE 10/02/2010 BAH DO, COCO K 112.1 CANDIDIASIS VAGINAL 10/02/2010 BAH DO, COCO K 611.71 MASTODYNIA 10/02/2010 BAH DO, COCO K 611.72 LUMP OR MASS IN BREAST 10/02/2010 BAH DO, COCO K V72.31 HEMODIALYSIS CHARGE NURSE EXAM, ROUTINE 10/16/2010 250.00 DIABETES MELLITUS 10/16/2010 AHSAN CHANG APRN 250.00 DIABETES MELLITUS 10/16/2010 MALIK SANTIAGO APRN 250.00 DIABETES MELLITUS 10/16/2010 BAH DO, COCO K 250.00 DIABETES MELLITUS 10/16/2010 BAH DO, COCO K 250.00 DIABETES MELLITUS 10/16/2010 [facility] LOG FEEDER, ALBIN L 250.00 DIABETES MELLITUS 10/16/2010 [facility] LOG FEEDER, ALBIN L 250.00 DIABETES MELLITUS 10/16/2010 BAH DO, COCO K 250.00 DIABETES MELLITUS 10/16/2010 BAH DO, COCO K 250.00 DIABETES MELLITUS 10/16/2010 DEANDRE CUEVAS MD 250.00 DIABETES MELLITUS 10/16/2010 BAH DO, COCO K 250.00 DIABETES MELLITUS 10/16/2010 [facility] ALBIN L 250.00 DIABETES MELLITUS 10/16/2010 BAH DO, COCO K 250.00 DIABETES MELLITUS 10/16/2010 DEANDRE CUEVAS MD 250.00 DIABETES MELLITUS 10/16/2010 MAD LOG FEEDER, ALBIN L 250.00 DIABETES MELLITUS 10/16/2010 [facility] LOG FEEDER, ALBIN L 250.00 DIABETES MELLITUS 10/16/2010 BAH DO, COCO K 250.00 DIABETES MELLITUS 01/05/2011 786.50 chest pain or discomfort 01/05/2011 AHSAN CHANG APRN 786.50 chest pain or discomfort 01/05/2011 PAMELA LOG FEEDER, MALIK R 786.50 chest pain or discomfort 01/05/2011 BAH DO, COCO K 786.50 chest pain or discomfort 01/05/2011 BAH DO, COCO K 786.50 chest pain or discomfort 01/05/2011 MADL LOG FEEDER, ALBIN L 786.50 chest pain or discomfort 01/05/2011 MADL LOG FEEDER, ALBIN L 786.50 chest pain or discomfort 01/05/2011 BAH DO, COCO K 786.50 chest pain or discomfort 01/05/2011 BAH DO, COCO K 786.50 chest pain or discomfort 01/05/2011 DEANDRE CUEVAS MD 786.50 chest pain or discomfort 01/05/2011 BAH DO, COCO K 786.50 chest pain or discomfort 01/05/2011 MADL LOG FEEDER, ALBIN L 786.50 chest pain or discomfort 01/05/2011 BAH DO, COCO K 786.50 chest pain or discomfort 01/05/2011 DEANDRE CUEVAS MD 786.50 chest pain or discomfort 01/05/2011 MADL LOG FEEDER, ALBIN L 786.50 chest pain or discomfort 01/05/2011 MADL LOG FEEDER, ALBIN L 786.50 chest pain or discomfort [...] URINARY TRACT INFECTION 03/02/2011 MALIK SANTIAGO APRN R 599.0 URINARY TRACT INFECTION 03/02/2011 BAH DO, COCO K 599.0 URINARY TRACT INFECTION 03/02/2011 BAH DO, COCO K 599.0 URINARY TRACT INFECTION 03/02/2011 MADL LOG FEEDER, ALBIN L 599.0 URINARY TRACT INFECTION 03/02/2011 MADL LOG FEEDER, ALBIN L 599.0 URINARY TRACT INFECTION 03/02/2011 BAH DO, COCO K 599.0 URINARY TRACT INFECTION 03/02/2011 BAH DO, COCO K 599.0 URINARY TRACT INFECTION 03/02/2011 DEANDRE CUEVAS MD 599.0 URINARY TRACT INFECTION 03/02/2011 BAH DO, COCO K 599.0 URINARY TRACT INFECTION 03/02/2011 MADL LOG FEEDER, ALBIN L 599.0 URINARY TRACT INFECTION 03/02/2011 BAH DO, COCO K 599.0 URINARY TRACT INFECTION 03/02/2011 DEANDRE CUEVAS MD 599.0 URINARY TRACT INFECTION 03/02/2011 MADL LOG FEEDER, ALBIN L 599.0 URINARY TRACT INFECTION 03/02/2011 MADL LOG FEEDER, ALBIN L 599.0 URINARY TRACT INFECTION 03/02/2011 BAH DO, COCO K 599.0 URINARY TRACT INFECTION 03/28/2011 274.9 GOUT 03/28/2011 CHARLENE LOG FEEDER AHSAN T 274.9 GOUT 03/28/2011 PAMELA LOG FEEDER MALIK R 274.9 GOUT 03/28/2011 BAH DO, COCO K 274.9 GOUT 03/28/2011 BAH DO, COCO K 274.9 GOUT 03/28/2011 MADL LOG FEEDER, ALBIN L 274.9 GOUT 03/28/2011 MADL LOG FEEDER, ALBIN L 274.9 GOUT 03/28/2011 BAH DO, COCO K 274.9 GOUT 03/28/2011 BAH DO, COCO K 274.9 GOUT 03/28/2011 DEANDRE CUEVAS MD N 274.9 GOUT 03/28/2011 BAH DO, COCO K 274.9 GOUT 03/28/2011 MADL LOG FEEDER, ALBIN L 274.9 GOUT 03/28/2011 BAH DO, COCO K 274.9 GOUT 03/28/2011 DEANDRE CUEVAS MD N 274.9 GOUT 03/28/2011 MADL LOG FEEDER, ALBIN L 274.9 GOUT 03/28/2011 MADL LOG FEEDER, ALBIN L 274.9 GOUT 03/28/2011 BAH DO, COCO K 274.9 GOUT 07/26/2011 272.4 HYPERLIPIDEMIA 07/26/2011 AHSAN CHANG APRN 272.4 HYPERLIPIDEMIA 07/26/2011 MALIK SANTIAGO APRN R 272.4 HYPERLIPIDEMIA 07/26/2011 BAH DO, COCO K 272.4 HYPERLIPIDEMIA 07/26/2011 BAH DO, COCO K 272.4 HYPERLIPIDEMIA 07/26/2011 MADL LOG FEEDER, ALBIN L 272.4 HYPERLIPIDEMIA 07/26/2011 MADL LOG FEEDER, ALBIN L 272.4 HYPERLIPIDEMIA 07/26/2011 BAH DO, COCO K 272.4 HYPERLIPIDEMIA 07/26/2011 BAH DO, COCO K 272.4 HYPERLIPIDEMIA 07/26/2011 DEANDRE CUEVAS MD 272.4 HYPERLIPIDEMIA 07/26/2011 BAH DO, COCO K 272.4 HYPERLIPIDEMIA 07/26/2011 MADL LOG FEEDER, ALBIN L 272.4 HYPERLIPIDEMIA 07/26/2011 BAH DO, COCO K 272.4 HYPERLIPIDEMIA 07/26/2011 DEANDRE CUEVAS MD 272.4 HYPERLIPIDEMIA 07/26/2011 MADL LOG FEEDER, ALBIN L 272.4 HYPERLIPIDEMIA 07/26/2011 MADL LOG FEEDER, ALBIN L 272.4 HYPERLIPIDEMIA 07/26/2011 BAH DO, COCO K 272.4 HYPERLIPIDEMIA 08/15/2011 414.00 CAD 08/15/2011 AHSAN CHANG APRN 414.00 CAD 08/15/2011 MALIK SANTIAGO APRN R 414.00 CAD 08/15/2011 BAH DO, COCO K 414.00 CAD 08/15/2011 BAH DO, COCO K 414.00 CAD 08/15/2011 [facility] LOG FEEDER, ALBIN L 414.00 CAD 08/15/2011 MADL LOG FEEDER, ALBIN L 414.00 CAD 08/15/2011 BAH DO, COCO K 414.00 CAD 08/15/2011 BAH DO, COCO K 414.00 CAD 08/15/2011 DEANDRE CUEVAS MD 414.00 CAD 08/15/2011 BAH DO, COCO K 414.00 CAD 08/15/2011 MADL LOG FEEDER, ALBIN L 414.00 CAD 08/15/2011 BAH DO, COCO K 414.00 CAD 08/15/2011 DEANDRE CUEVAS MD 414.00 CAD 08/15/2011 MADL LOG FEEDER, ALBIN L 414.00 CAD 08/15/2011 OC LOG FEEDER, ALBIN L 414.00 CAD 08/15/2011 COCO BAH DO K 414.00 CAD 08/27/2011 Ot 397.0 08/27/2011 Ot 401.9 08/27/2011 Ot 414.01 08/27/2011 Ot 424.0 08/27/2011 Ot 786.50 08/27/2011 Ot V45.82 09/03/2011 250.62 DIABETES W/ NEUROPATHY, TYPE 2 - UNCONTROLLED 09/03/2011 CHARLENE LOG FEEDER, AHSAN Greer 250.62 DIABETES W/ NEUROPATHY, TYPE 2 - UNCONTROLLED 09/03/2011 PAMELA LOG FEEDER, MALIK Emanuel 250.62 DIABETES W/ NEUROPATHY, TYPE 2 - UNCONTROLLED 09/03/2011 SABRINA BAH DOA K 250.62 DIABETES W/ NEUROPATHY, TYPE 2 - UNCONTROLLED 09/03/2011 SABRINA ABH DOA K 250.62 DIABETES W/ NEUROPATHY, TYPE 2 - UNCONTROLLED 09/03/2011 [facility] ALBIN L 250.62 DIABETES W/ NEUROPATHY, TYPE 2 - UNCONTROLLED 09/03/2011 OC LOG FEEDER, ALIBN L 250.62 DIABETES W/ NEUROPATHY, TYPE 2 - UNCONTROLLED 09/03/2011 SABRINA BAH DOA K 250.62 DIABETES W/ NEUROPATHY, TYPE 2 - UNCONTROLLED 09/03/2011 SABRINA BAH DOA K 250.62 DIABETES W/ NEUROPATHY, TYPE 2 - UNCONTROLLED 09/03/2011 FAITH MALIN, DEANDRE [place] 250.62 DIABETES W/ NEUROPATHY, TYPE 2 - UNCONTROLLED 09/03/2011 SABRINA BAH DOA K 250.62 DIABETES W/ NEUROPATHY, TYPE 2 - UNCONTROLLED 09/03/2011 OC LOG FEEDER, ALBIN L 250.62 DIABETES W/ NEUROPATHY, TYPE 2 - UNCONTROLLED 09/03/2011 NIURKA SINGH COCO K 250.62 DIABETES W/ NEUROPATHY, TYPE 2 - UNCONTROLLED 09/03/2011 FAITH MALIN, DEANDRE [place] 250.62 DIABETES W/ NEUROPATHY, TYPE 2 - UNCONTROLLED 09/03/2011 OC LOG FEEDER, ALBIN L 250.62 DIABETES W/ NEUROPATHY, TYPE 2 - UNCONTROLLED 09/03/2011 OC LOG FEEDER, ALIBN L 250.62 DIABETES W/ NEUROPATHY, TYPE 2 - UNCONTROLLED 09/03/2011 BAH DO, COCO K 250.62 DIABETES W/ NEUROPATHY, TYPE 2 - UNCONTROLLED 09/12/2011 465.9 Upper Respiratory Infection 09/12/2011 AHSAN CHANG APRN 465.9 Upper Respiratory Infection 09/12/2011 MALIK SANTIAGO APRN R 465.9 Upper Respiratory Infection 09/12/2011 BAH DO, COCO K 465.9 Upper Respiratory Infection 09/12/2011 BAH DO, COCO K 465.9 Upper Respiratory Infection 09/12/2011 MADL LOG FEEDER, ALBIN L 465.9 Upper Respiratory Infection 09/12/2011 MADL LOG FEEDER, ALBIN L 465.9 Upper Respiratory Infection 09/12/2011 BAH DO, COCO K 465.9 Upper Respiratory Infection 09/12/2011 BAH DO, COCO K 465.9 Upper Respiratory Infection 09/12/2011 DEANDRE CUEVAS MD N 465.9 Upper Respiratory Infection 09/12/2011 BAH DO, COCO K 465.9 Upper Respiratory Infection 09/12/2011 MADAnnabelle LOG FEEDER, ALBIN L 465.9 Upper Respiratory Infection 09/12/2011 BAH DO, COCO K 465.9 Upper Respiratory Infection 09/12/2011 DEANDRE CUEVAS MD 465.9 Upper Respiratory Infection 09/12/2011 MADAnnabelle LOG FEEDER, ALBIN L 465.9 Upper Respiratory Infection 09/12/2011 MADL LOG FEEDER, ALBIN L 465.9 Upper Respiratory Infection 09/12/2011 BAH DO, COCO K 465.9 Upper Respiratory Infection 10/04/2011 692.9 Dermatitis Contact Unspecified 10/04/2011 AHSAN CHANG APRN 692.9 Dermatitis Contact Unspecified 10/04/2011 MALIK SANTIAGO APRN R 692.9 Dermatitis Contact Unspecified 10/04/2011 BAH DO, COCO K 692.9 Dermatitis Contact Unspecified 10/04/2011 BAH DO, COCO K 692.9 Dermatitis Contact Unspecified 10/04/2011 OC LOG FEEDER, ALBIN L 692.9 Dermatitis Contact Unspecified 10/04/2011 MADL LOG FEEDER ALBIN L 692.9 Dermatitis Contact Unspecified 10/04/2011 BAH DO, COCO K 692.9 Dermatitis Contact Unspecified 10/04/2011 BAH DO, COCO K 692.9 Dermatitis Contact Unspecified 10/04/2011 DEANDRE CUEVAS MD 692.9 Dermatitis Contact Unspecified 10/04/2011 BAH DO, COCO K 692.9 Dermatitis Contact Unspecified 10/04/2011 MADL LOG FEEDER, ALBIN L 692.9 Dermatitis Contact Unspecified 10/04/2011 BAH DO, COCO K 692.9 Dermatitis Contact Unspecified 10/04/2011 DEANDRE CUEVAS MD 692.9 Dermatitis Contact Unspecified 10/04/2011 MADL LOG FEEDER, ALBIN L 692.9 Dermatitis Contact Unspecified 10/04/2011 MADL LOG FEEDER, ALBIN L 692.9 Dermatitis Contact Unspecified 10/04/2011 BAH DO, COCO K 692.9 Dermatitis Contact Unspecified 10/15/2011 466.0 Acute Bronchitis 10/15/2011 ASHAN CHANG APRN 466.0 Acute Bronchitis 10/15/2011 MALIK SANTIAGO APRN R 466.0 Acute Bronchitis 10/15/2011 BAH DO, COCO K 466.0 Acute Bronchitis 10/15/2011 BAH DO, COCO K 466.0 Acute Bronchitis 10/15/2011 MADL LOG FEEDER, ALBIN L 466.0 Acute Bronchitis 10/15/2011 MADL LOG FEEDER, ALBIN L 466.0 Acute Bronchitis 10/15/2011 BAH DO, COCO K 466.0 Acute Bronchitis 10/15/2011 BAH DO, COCO K 466.0 Acute Bronchitis 10/15/2011 DEANDRE CUEVAS MD N 466.0 Acute Bronchitis 10/15/2011 BAH DO, COCO K 466.0 Acute Bronchitis 10/15/2011 MADL LOG FEEDER, ALBIN L 466.0 Acute Bronchitis 10/15/2011 BAH DO, COCO K 466.0 Acute Bronchitis 10/15/2011 DEANDRE CUEVAS MD N 466.0 Acute Bronchitis 10/15/2011 MADL LOG FEEDER, ALBIN L 466.0 Acute Bronchitis 10/15/2011 MADL LOG FEEDER, ALBIN L 466.0 Acute Bronchitis 10/15/2011 BAH DO, COCO K 466.0 Acute Bronchitis 11/01/2011 682.7 Cellulitis - Foot 11/01/2011 AHSAN CHANG APRN 682.7 Cellulitis - Foot 11/01/2011 PAMELA LOG FEEDER, MALIK R 682.7 Cellulitis - Foot 11/01/2011 BAH DO, COCO K 682.7 Cellulitis - Foot 11/01/2011 BAH DO, COCO K 682.7 Cellulitis - Foot 11/01/2011 MADL LOG FEEDER, ALBIN L 682.7 Cellulitis - Foot 11/01/2011 MADL LOG FEEDER, ALBIN L 682.7 Cellulitis - Foot 11/01/2011 BAH DO, COCO K 682.7 Cellulitis - Foot 11/01/2011 BAH DO, COCO K 682.7 Cellulitis - Foot 11/01/2011 DEANDRE CUEVAS MD N 682.7 Cellulitis - Foot 11/01/2011 BAH DO, COCO K 682.7 Cellulitis - Foot 11/01/2011 MADL LOG FEEDER, ALBIN L 682.7 Cellulitis - Foot 11/01/2011 BAH DO, COCO K 682.7 Cellulitis - Foot 11/01/2011 DEANDRE CUEVAS MD N 682.7 Cellulitis - Foot 11/01/2011 MADL LOG FEEDER, ALBIN L 682.7 Cellulitis - Foot 11/01/2011 MADL LOG FEEDER, ALBIN L 682.7 Cellulitis - Foot 11/01/2011 [...] K 724.2 lower back pain 11/28/2011 BAH DOSABRINAA K V03.82 Need For Vaccination Pneumococcal 11/28/2011 BAH DO, COCO K 724.2 lower back pain 11/28/2011 BAH DO COCO K V03.82 Need For Vaccination Pneumococcal 11/28/2011 MADAnnabelle RIVERA, ALBIN L 724.2 lower back pain 11/28/2011 MADL LOG FEEDER, ALBIN L V03.82 Need For Vaccination Pneumococcal 11/28/2011 MADL LOG FEEDER, ALBIN L 724.2 lower back pain 11/28/2011 MADL LOG FEEDER, ALBIN L V03.82 Need For Vaccination Pneumococcal 11/28/2011 BAH SABRINA SINGHA K 724.2 lower back pain 11/28/2011 BAH SABRINA SINGHA K V03.82 Need For Vaccination Pneumococcal 11/28/2011 BAH SABRINA SINGHA K 724.2 lower back pain 11/28/2011 BAH DO COCO K V03.82 Need For Vaccination Pneumococcal 11/28/2011 DEANDRE CUEVAS MD 724.2 lower back pain 11/28/2011 DEANDRE CUEVAS MD V03.82 Need For Vaccination Pneumococcal 11/28/2011 BAH DOSABRINAA K 724.2 lower back pain 11/28/2011 SABRINA BAH DOA K V03.82 Need For Vaccination Pneumococcal 11/28/2011 MADL LOG FEEDER, ALBIN L 724.2 lower back pain 11/28/2011 MADL LOG FEEDER ALBIN L V03.82 Need For Vaccination Pneumococcal 11/28/2011 SABRINA BAH DOA K 724.2 lower back pain 11/28/2011 SABRINA BAH DOA K V03.82 Need For Vaccination Pneumococcal 11/28/2011 DEANDRE CUEVAS MD N 724.2 lower back pain 11/28/2011 DEANDRE CUEVAS MD V03.82 Need For Vaccination Pneumococcal 11/28/2011 MADL LOG FEEDER, ALBIN L 724.2 lower back pain 11/28/2011 MADL LOG FEEDER, ALBIN L V03.82 Need For Vaccination Pneumococcal 11/28/2011 MADL LOG FEEDER, ALBIN L 724.2 lower back pain 11/28/2011 MADL LOG FEEDER, ALBIN L V03.82 Need For Vaccination Pneumococcal 11/28/2011 SABRINA BAH DOA K 724.2 lower back pain 11/28/2011 SABRINA BAH DOA K V03.82 Need For Vaccination Pneumococcal 01/09/2012 438.9 CVA LATE EFFECTS 01/09/2012 782.3 EDEMA 01/09/2012 CHARLENE LOG FEEDER, AHSAN T 438.9 CVA LATE EFFECTS 01/09/2012 CHARLENE LOG FEEDERAHSAN [place] T 782.3 EDEMA 01/09/2012 PAMELA LOG FEEDER, MALIK R 438.9 CVA LATE EFFECTS 01/09/2012 PAMELA LOG FEEDER, MALIK R 782.3 EDEMA 01/09/2012 BAH DO, COCO K 438.9 CVA LATE EFFECTS 01/09/2012 BAH DO, COCO K 782.3 EDEMA 01/09/2012 BAH DO, COCO K 438.9 CVA LATE EFFECTS 01/09/2012 BAH DO, COCO K 782.3 EDEMA 01/09/2012 MADL LOG FEEDER, ALBIN L 438.9 CVA LATE EFFECTS 01/09/2012 MADL LOG FEEDER, ALBIN L 782.3 EDEMA 01/09/2012 MADL LOG FEEDER, ALBIN L 438.9 CVA LATE EFFECTS 01/09/2012 MADL LOG FEEDER, ALBIN L 782.3 EDEMA 01/09/2012 BAH DO, [...] DO, COCO K 782.3 EDEMA 01/09/2012 MADL LOG FEEDER, ALBIN L 438.9 CVA LATE EFFECTS 01/09/2012 MADL LOG FEEDER, ALBIN L 782.3 EDEMA 01/09/2012 BAH DO, COCO K 438.9 CVA LATE EFFECTS 01/09/2012 BAH DO, COCO K 782.3 EDEMA 01/09/2012 DEANDRE CUEVAS MD N 438.9 CVA LATE EFFECTS 01/09/2012 DEANDRE CUEVAS MD N 782.3 EDEMA 01/09/2012 MADL LOG FEEDER, ALBIN L 438.9 CVA LATE EFFECTS 01/09/2012 MADL LOG FEEDER, ALBIN L 782.3 EDEMA 01/09/2012 MADL LOG FEEDER, ALBIN L 438.9 CVA LATE EFFECTS 01/09/2012 MADL LOG FEEDER, ALBIN L 782.3 EDEMA 01/09/2012 BAH DO, COCO K 438.9 CVA LATE EFFECTS 01/09/2012 BAH DO, COCO K 782.3 EDEMA 02/21/2012 Ot 518.0 [...] Urinary Tract Infection Site Not Specified 02/25/2012 MALIK SANTIAGO APRN R 845.10 Unspecified Site Of Foot Sprain 02/25/2012 SABRINA BAH DOA K 599.0 Urinary Tract Infection Site Not Specified 02/25/2012 SABRINA BAH DOA K 845.10 Unspecified Site Of Foot Sprain 02/25/2012 BAH DO COCO K 599.0 Urinary Tract Infection Site Not Specified 02/25/2012 BAH DO COCO K 845.10 Unspecified Site Of Foot Sprain 02/25/2012 MADL LOG FEEDER, ALBIN L 599.0 Urinary Tract Infection Site Not Specified 02/25/2012 MADL LOG FEEDERTONYALBIN L 845.10 Unspecified Site Of Foot Sprain 02/25/2012 MADL LOG FEEDER, ALBIN L 599.0 Urinary Tract Infection Site Not Specified 02/25/2012 MADL LOG FEEDER, ALBIN L 845.10 Unspecified Site Of Foot [...] Unspecified Site Of Foot Sprain 02/25/2012 MADL LOG FEEDER, ALBIN L 599.0 Urinary Tract Infection Site Not Specified 02/25/2012 MADL LOG FEEDER, ALBIN L 845.10 Unspecified Site Of Foot Sprain 02/25/2012 BAH DO, COCO K 599.0 Urinary Tract Infection Site Not Specified 02/25/2012 BAH DO, COCO K 845.10 Unspecified Site Of Foot Sprain 02/25/2012 DEANDRE CUEVAS MD N 599.0 Urinary Tract Infection Site Not Specified 02/25/2012 DEANDRE CUEVAS MD N 845.10 Unspecified Site Of Foot Sprain 02/25/2012 MADL LOG FEEDER, ALBIN L 599.0 Urinary Tract Infection Site Not Specified 02/25/2012 MADL LOG FEEDER, ALBIN L 845.10 Unspecified Site Of Foot Sprain 02/25/2012 MADL LOG FEEDER, ALBIN L 599.0 Urinary Tract Infection Site Not Specified 02/25/2012 MADL LOG FEEDER, ALBIN L 845.10 Unspecified Site Of Foot Sprain 02/25/2012 BAH DO, COCO K 599.0 Urinary Tract Infection Site Not Specified 02/25/2012 BAH DO, COCO K 845.10 Unspecified Site Of Foot Sprain 03/12/2012 719.46 KNEE PAIN 03/12/2012 AHSAN CHANG APRN 719.46 KNEE PAIN 03/12/2012 PAMELA LOG FEEDER, MALIK R 719.46 KNEE PAIN 03/12/2012 BAH DO, COCO K 719.46 KNEE PAIN 03/12/2012 BAH DO, COCO K 719.46 KNEE PAIN 03/12/2012 MADL LOG FEEDER, ALBIN L 719.46 KNEE PAIN 03/12/2012 MADL LOG FEEDER, ALBIN L 719.46 KNEE PAIN 03/12/2012 BAH DO, COCO K 719.46 KNEE PAIN 03/12/2012 BAH DO, COCO K 719.46 KNEE PAIN 03/12/2012 FAITH MALIN, DEANDRE N 719.46 KNEE PAIN 03/12/2012 BAH DO, COCO K 719.46 KNEE PAIN 03/12/2012 MADL LOG FEEDER, ALBIN L 719.46 KNEE PAIN 03/12/2012 BAH DO, COCO K 719.46 KNEE PAIN 03/12/2012 FAITH MALIN, DEANDRE N 719.46 KNEE PAIN 03/12/2012 MADL LOG FEEDER, ALBIN L 719.46 KNEE PAIN 03/12/2012 MADL LOG FEEDER, ALBIN L 719.46 KNEE PAIN 03/12/2012 BAH DO, COCO K 719.46 KNEE PAIN 04/16/2012 780.2 SYNCOPE AND COLLAPSE 04/16/2012 786.2 COUGH 04/16/2012 AHSAN CHANG APRN 780.2 SYNCOPE AND COLLAPSE 04/16/2012 AHSAN CHANG APRN 786.2 COUGH 04/16/2012 AMI SANTIAGO APRNINA R 780.2 SYNCOPE AND COLLAPSE 04/16/2012 PAMELA RIVERA MALIK R 786.2 COUGH 04/16/2012 BAH DO, CCOO K 780.2 SYNCOPE AND COLLAPSE 04/16/2012 BAH DO, COCO K 786.2 COUGH 04/16/2012 BAH DO, COCO K 780.2 SYNCOPE AND COLLAPSE 04/16/2012 BAH DO, COCO K 786.2 COUGH 04/16/2012 MADL LOG FEEDER, ALBIN L 780.2 SYNCOPE AND COLLAPSE 04/16/2012 MADL LOG FEEDER, ALBIN L 786.2 COUGH 04/16/2012 MADL LOG FEEDER, ALBIN L 780.2 SYNCOPE AND COLLAPSE 04/16/2012 MADL LOG FEEDER, ALBIN L 786.2 COUGH 04/16/2012 BAH DO, COCO K 780.2 SYNCOPE AND COLLAPSE 04/16/2012 BAH DO, COCO K 786.2 COUGH 04/16/2012 BAH DO, COCO K 780.2 SYNCOPE AND COLLAPSE 04/16/2012 BAH DO, COCO K 786.2 COUGH 04/16/2012 DEANDRE CUEVAS MD 780.2 SYNCOPE AND COLLAPSE 04/16/2012 DEANDRE CUEVAS MD N 786.2 COUGH 04/16/2012 BAH DO, COCO K 780.2 SYNCOPE AND COLLAPSE 04/16/2012 BAH DO, COCO K 786.2 COUGH 04/16/2012 MADL LOG FEEDER, ALBIN L 780.2 SYNCOPE AND COLLAPSE 04/16/2012 MADL LOG FEEDER, ALBIN L 786.2 COUGH 04/16/2012 BAH DO, COCO K 780.2 SYNCOPE AND COLLAPSE 04/16/2012 BAH DO, COCO K 786.2 COUGH 04/16/2012 DEANDRE CUEVAS MD N 780.2 SYNCOPE AND COLLAPSE 04/16/2012 DEANDRE CUEVAS MD N 786.2 COUGH 04/16/2012 MADL LOG FEEDER, ALBIN L 780.2 SYNCOPE AND COLLAPSE 04/16/2012 MADL LOG FEEDER, ALBIN L 786.2 COUGH 04/16/2012 MADL LOG FEEDER, ALBIN L 780.2 SYNCOPE AND COLLAPSE 04/16/2012 MADL LOG FEEDER, ALBIN L 786.2 COUGH 04/16/2012 BAH DO, [...] E888.9 FALL NOS 12/03/2013 MALIK SANTIAGO APRN 311 DEPRESSIVE DISORDER NOT ELSEWHERE CLASSIFIED 12/03/2013 PAMELA LOG FEEDER, MALIK R 599.0 URINARY TRACT INFECTION SITE NOT SPECIFIED 12/03/2013 PAMELA LOG FEEDER, MALIK R 789.07 ABDOMINAL PAIN GENERALIZED 12/03/2013 BAH DO, [...] K 789.07 ABDOMINAL PAIN GENERALIZED 12/03/2013 MADL LOG FEEDER, ALBIN L 311 DEPRESSIVE DISORDER NOT ELSEWHERE CLASSIFIED 12/03/2013 MADL LOG FEEDER, ALBIN L 599.0 URINARY TRACT INFECTION SITE NOT SPECIFIED 12/03/2013 MADL LOG FEEDER, ALBIN L 789.07 ABDOMINAL PAIN GENERALIZED 12/03/2013 MADL LOG FEEDER, ALBIN L 311 DEPRESSIVE DISORDER NOT ELSEWHERE CLASSIFIED 12/03/2013 MADL LOG FEEDER, ALBIN L 599.0 URINARY TRACT INFECTION SITE NOT SPECIFIED 12/03/2013 MADL LOG FEEDER, ALBIN L 789.07 ABDOMINAL PAIN GENERALIZED 12/03/2013 [...] K 789.07 ABDOMINAL PAIN GENERALIZED 12/03/2013 MADL LOG FEEDER, ALBIN L 311 DEPRESSIVE DISORDER NOT ELSEWHERE CLASSIFIED 12/03/2013 MADL LOG FEEDER, ALBIN L 599.0 URINARY TRACT INFECTION SITE NOT SPECIFIED 12/03/2013 MADL LOG FEEDER, ALBIN L 789.07 ABDOMINAL PAIN GENERALIZED 12/03/2013 [...] N 789.07 ABDOMINAL PAIN GENERALIZED 12/03/2013 MADL LOG FEEDER, ALBIN L 311 DEPRESSIVE DISORDER NOT ELSEWHERE CLASSIFIED 12/03/2013 MADL LOG FEEDER, ALBIN L 599.0 URINARY TRACT INFECTION SITE NOT SPECIFIED 12/03/2013 MADL LOG FEEDER, ALBIN L 789.07 ABDOMINAL PAIN GENERALIZED 12/03/2013 MADL LOG FEEDER, ALBIN L 311 DEPRESSIVE DISORDER NOT ELSEWHERE CLASSIFIED 12/03/2013 MADL LOG FEEDER, ALBIN L 599.0 URINARY TRACT INFECTION SITE NOT SPECIFIED 12/03/2013 MADL LOG FEEDER, ALBIN L 789.07 ABDOMINAL PAIN GENERALIZED 12/03/2013 BAH DO, COCO K 311 DEPRESSIVE DISORDER NOT ELSEWHERE CLASSIFIED 12/03/2013 BAH DO, COCO K 599.0 URINARY TRACT INFECTION SITE NOT SPECIFIED 12/03/2013 BAH DO, COCO K 789.07 ABDOMINAL PAIN GENERALIZED 01/28/2014 MADL LOG FEEDER, ALBIN L 719.41 PAIN IN JOINT INVOLVING SHOULDER REGION 01/28/2014 MADL LOG FEEDER, ALBIN L 780.52 INSOMNIA UNSPECIFIED 01/28/2014 MADL LOG FEEDER, ALBIN L 788.1 DYSURIA 01/28/2014 MADL LOG FEEDER, ALBIN L 719.41 PAIN IN JOINT INVOLVING SHOULDER REGION 01/28/2014 MADL LOG FEEDER, ALBIN L 780.52 INSOMNIA UNSPECIFIED 01/28/2014 MADL LOG FEEDER, ALBIN L 788.1 DYSURIA 01/28/2014 BAH DO, [...] DO, COCO K 788.1 DYSURIA 01/28/2014 MADL LOG FEEDER, ALBIN L 719.41 PAIN IN JOINT INVOLVING SHOULDER REGION 01/28/2014 MADL LOG FEEDER, ALBIN L 780.52 INSOMNIA UNSPECIFIED 01/28/2014 MADL LOG FEEDER, ALBIN L 788.1 DYSURIA 01/28/2014 BAH DO, COCO K 719.41 PAIN IN JOINT INVOLVING SHOULDER REGION 01/28/2014 BAH DO, COCO K 780.52 INSOMNIA UNSPECIFIED 01/28/2014 BAH DO, COCO K 788.1 DYSURIA 01/28/2014 DEANDRE CUEVAS MD 719.41 PAIN IN JOINT INVOLVING SHOULDER REGION 01/28/2014 DEANDRE CUEVAS MD 780.52 INSOMNIA UNSPECIFIED 01/28/2014 DEANDRE CUEVAS MD N 788.1 DYSURIA 01/28/2014 MADL LOG FEEDER, ALBIN L 719.41 PAIN IN JOINT INVOLVING SHOULDER REGION 01/28/2014 MADL LOG FEEDER, ALBIN L 780.52 INSOMNIA UNSPECIFIED 01/28/2014 MADL LOG FEEDER, ALBIN L 788.1 DYSURIA 01/28/2014 ALBIN RENAE APRN L 719.41 PAIN IN JOINT INVOLVING SHOULDER REGION 01/28/2014 AIMEE RENAE APRNA L 780.52 INSOMNIA UNSPECIFIED 01/28/2014 MADAnnabelle LOG FEEDERAIMEE MayberryA L 788.1 DYSURIA 01/28/2014 SABRINA BAH DOA K 719.41 PAIN IN JOINT INVOLVING SHOULDER REGION 01/28/2014 SABRINA BAH DOA K 780.52 INSOMNIA UNSPECIFIED 01/28/2014 SABRINA BAH DOA K 788.1 DYSURIA 03/26/2014 DEANDRE CUEVAS MD [...] INDEX 32.0-32.9, ADULT 05/18/2014 COCO BAH DO K 381.01 ACUTE SEROUS OTITIS MEDIA 05/18/2014 ALBIN RENAE APRN L 381.01 ACUTE SEROUS OTITIS MEDIA 05/18/2014 COCO BAH DO K 381.01 ACUTE SEROUS OTITIS MEDIA 05/18/2014 DEANDRE CUEVAS MD 381.01 ACUTE SEROUS OTITIS MEDIA 05/18/2014 ALBIN RENAE APRN L 381.01 ACUTE SEROUS OTITIS MEDIA 05/18/2014 MADL LOG FEEDER, ALBIN L 381.01 ACUTE SEROUS OTITIS MEDIA 05/18/2014 NIURKA SINGH COCO K 381.01 ACUTE SEROUS OTITIS MEDIA 05/20/2014 NIURKA SINGH COCO K 357.2 DIABETIC PERPHERAL NEUROPATHY 05/20/2014 MADAnnabelle LOG FEEDER, ALBIN L 357.2 DIABETIC PERPHERAL NEUROPATHY 05/20/2014 NIURKA SINGH COCO K 357.2 DIABETIC PERPHERAL NEUROPATHY 05/20/2014 DEANDRE CUEVAS MD 357.2 DIABETIC PERPHERAL NEUROPATHY 05/20/2014 MADL LOG FEEDER, ALBIN L 357.2 DIABETIC PERPHERAL NEUROPATHY 05/20/2014 MADL LOG FEEDER, ALBIN L 357.2 DIABETIC PERPHERAL NEUROPATHY 05/20/2014 SABRINA BAH DOA K 357.2 DIABETIC PERPHERAL NEUROPATHY 06/23/2014 Ot 611.72 06/24/2014 LEANN CONTRERAS Ot 250.00 DIAB MIKEY WO COMPL, TYPE II OR UNSPEC TY 06/24/2014 LEANN CONTRERAS Ot 305.1 TOBACCO USE DISORDER 06/24/2014 LEANN CONTRERAS Ot 308.1 STRESS REACTION, FUGUE 06/24/2014 LEANN CONTRERAS Ot 401.9 HYPERTENSION NOS 06/24/2014 LEANN CONTRERAS Ot 599.0 URIN TRACT INFECTION NOS 06/24/2014 LEANN CONTRERAS Ot 780.4 DIZZINESS AND GIDDINESS 06/24/2014 LEANN CONTRERAS Ot 784.0 HEADACHE 07/01/2014 OC RIVERA, ALBIN L 599.0 URINARY TRACT INFECTION 07/01/2014 MADAnnabelle RIVERA, ALBIN L 729.5 PAIN IN LIMB 07/01/2014 SABRINA BAH DOA K 599.0 URINARY TRACT INFECTION 07/01/2014 SABRINA BAH DOA K 729.5 PAIN IN LIMB 07/01/2014 DEANDRE CUEVAS MD 599.0 URINARY TRACT INFECTION 07/01/2014 DEANDRE CUEVAS MD 729.5 PAIN IN LIMB 07/01/2014 MADAnnabelle LOG FEEDER, ALBIN L 599.0 URINARY TRACT INFECTION 07/01/2014 ROMAN RENAE APRNWNYA L 729.5 PAIN IN LIMB 07/01/2014 MADL LOG FEEDER, ALBIN L 599.0 URINARY TRACT INFECTION 07/01/2014 MADL LOG FEEDER, ALBIN L 729.5 PAIN IN LIMB 07/01/2014 BAH DO, COCO K 599.0 URINARY TRACT INFECTION 07/01/2014 BAH DO, COCO K 729.5 PAIN IN LIMB 07/23/2014 Ot 611.72 07/24/2014 DEANDRE CUEVAS MD N Ot 250.62 DIAB W NEURO MANIFEST, TYPE II OR UNSPEC 07/24/2014 FAITH MALIN DEANDRE N Ot 276.1 HYPOSMOLALITY 07/24/2014 DEANDRE CUEVAS MD N Ot 305.1 TOBACCO USE DISORDER 07/24/2014 DEANDRE CUEVAS MD N Ot 357.2 NEUROPATHY IN DIABETES 07/24/2014 DEANDRE CUEVAS MD N Ot 250.62 07/24/2014 DEANDRE CUEVAS MD N Ot 276.1 07/24/2014 DEANDRE CUEVAS MD N Ot 305.1 07/24/2014 DEANDRE CUEVAS MD N Ot 357.2 08/26/2014 DEANDRE CUEVAS MD N 536.8 DYSPEPSIA AND OTHER SPECIFIED DISORDERS OF FUNCTION OF STOMACH 08/26/2014 ROMAN RENAE APRNWNYA L 536.8 DYSPEPSIA AND OTHER SPECIFIED DISORDERS OF FUNCTION OF STOMACH 08/26/2014 CALLIEL NICOLE ALBIN L 536.8 DYSPEPSIA AND OTHER SPECIFIED DISORDERS OF FUNCTION OF STOMACH 08/26/2014 NIURKA SINGH COCO K 536.8 DYSPEPSIA AND OTHER SPECIFIED DISORDERS OF FUNCTION OF STOMACH 09/30/2014 MADL NICOLE ALBIN L 110.4 DERMATOPHYTOSIS OF FOOT 09/30/2014 MADL LOG FEEDER, ALBIN L 780.79 OTHER MALAISE AND FATIGUE 09/30/2014 MADL LOG FEEDER, ALBIN L 110.4 DERMATOPHYTOSIS OF FOOT 09/30/2014 MADL LOG FEEDER, ALBIN L 780.79 OTHER MALAISE AND FATIGUE 09/30/2014 BAH DO, COCO K 110.4 DERMATOPHYTOSIS OF FOOT 09/30/2014 BAH DO, COCO K 780.79 OTHER MALAISE AND FATIGUE 10/11/2014 MADAnnabelle RIVERA ALBIN L 250.42 DIABETES W/ NEPHROPATHY, TYPE 2 - UNCONTROLLED 10/11/2014 OC PASTORN, ALBIN L 250.42 DIABETES W/ NEPHROPATHY, TYPE 2 - UNCONTROLLED 10/11/2014 COCO BAH DO 250.42 DIABETES W/ NEPHROPATHY, TYPE 2 - UNCONTROLLED 10/28/2014 OC PASTORN, ALBIN L 250.80 DIABETES WITH OTHER SPECIFIED MANIFESTATIONS TYPE II OR UNSPECIFIED TYPE NOT STATED UNCONTROLLED 10/28/2014 CALLIEAnnabelle LOG FEEDER, ALBIN L 250.80 DIABETES WITH OTHER SPECIFIED MANIFESTATIONS TYPE II OR UNSPECIFIED TYPE NOT STATED UNCONTROLLED 10/28/2014 COCO BAH DO 250.80 DIABETES WITH OTHER SPECIFIED MANIFESTATIONS TYPE II OR UNSPECIFIED TYPE NOT STATED UNCONTROLLED 11/12/2014 Ot 272.4 11/12/2014 Ot 305.1 11/12/2014 Ot 401.9 11/12/2014 Ot 786.50 11/17/2014 CALLIEALBIN Alanis APRN L 789.00 ABDOMINAL PAIN UNSPECIFIED SITE 11/17/2014 COCO BAH DO 789.00 ABDOMINAL PAIN UNSPECIFIED SITE 12/09/2014 AIMEE RENAEA L RESEARCH ANTHROPOLOGIST Ot 571.8 12/09/2014 OC ALBIN L RESEARCH ANTHROPOLOGIST Ot 592.0 03/01/2015 LEANN CONTRERAS Ot 110.4 [...] 401.9 07/29/2015 Ot 786.50 07/29/2015 ALBIN RENAE RESEARCH ANTHROPOLOGIST Ot 571.8 07/29/2015 ALBIN RENAE RESEARCH ANTHROPOLOGIST Ot 592.0 07/29/2015 BERT JASON APRN Ot 611.71 08/18/2015 ALBIN RENAE RESEARCH ANTHROPOLOGIST Ot M79.662 08/30/2015 ALBIN RENAE RESEARCH ANTHROPOLOGIST Ot M79.662 12/09/2015 MANISHA OLIVIA MD Ot L02.32 FURUNCLE OF BUTTOCK 12/09/2015 MANISHA OLIVIA MD Ot L97.212 NON-PRESSURE CHRONIC ULCER OF RIGHT CALF 12/09/2015 MANISHA OLIVIA MD Ot L98.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 ULCER OF BUTTOCK [place] 12/20/2015 MANISHA OLIVIA MD Ot L02.32 FURUNCLE OF BUTTOCK 12/20/2015 MANISHA OLIVIA MD Ot L97.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-PRESSURE CHRONIC ULCER OF RIGHT CALF 12/20/2015 MANISHA OLIVIA MD Ot L98.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 ULCER OF BUTTOCK [place] 04/18/2017 Ot 272.4 HYPERLIPIDEMIA NEC/NOS 04/18/2017 Ot 305.1 TOBACCO USE DISORDER 04/18/2017 Ot 401.9 HYPERTENSION NOS 04/18/2017 Ot 786.50 CHEST PAIN NOS 04/18/2017 ALBIN RENAE RESEARCH ANTHROPOLOGIST Ot 571.8 CHRONIC LIVER DIS NEC 04/18/2017 ALBIN RENAE RESEARCH ANTHROPOLOGIST Ot 592.0 CALCULUS OF KIDNEY 04/18/2017 BERT JASON APRN Ot 611.71 MASTODYNIA 04/18/2017 ALBIN RENAE RESEARCH ANTHROPOLOGIST Ot M79.662 PAIN IN LEFT LOWER LEG 04/18/2017 EDWIN ROSENBERG Ot E11.21 TYPE 2 DIABETES MELLITUS WITH DIABETIC N 04/18/2017 EDWIN ROSENBERG Ot E11.65 TYPE 2 DIABETES MELLITUS WITH HYPERGLYCE 04/18/2017 EDWIN ROSENBERG Ot F17.210 NICOTINE DEPENDENCE, CIGARETTES, UNCOMPL 04/18/2017 CHET, EDWIN RESEARCH ANTHROPOLOGIST Ot F32.9 MAJOR DEPRESSIVE DISORDER, SINGLE EPISOD 04/18/2017 CHET, EDWIN RESEARCH ANTHROPOLOGIST Ot F41.9 ANXIETY DISORDER, UNSPECIFIED 04/18/2017 EDWIN ROSENBEGR RESEARCH ANTHROPOLOGIST Ot I10 ESSENTIAL (PRIMARY) HYPERTENSION 04/18/2017 CHET EDWIN RESEARCH ANTHROPOLOGIST Ot J45.909 UNSPECIFIED ASTHMA, UNCOMPLICATED 04/18/2017 CHET, EDWIN RESEARCH ANTHROPOLOGIST Ot K21.9 GASTRO-ESOPHAGEAL REFLUX DISEASE WITHOUT 04/18/2017 CHET, EDWIN RESEARCH ANTHROPOLOGIST Ot M19.90 UNSPECIFIED OSTEOARTHRITIS, UNSPECIFIED 04/18/2017 CHET, EDWIN RESEARCH ANTHROPOLOGIST Ot M25.562 PAIN IN LEFT KNEE 04/18/2017 EDWIN ROSENBERG RESEARCH ANTHROPOLOGIST Ot W19.XXXA UNSPECIFIED FALL, INITIAL ENCOUNTER 04/18/2017 EDWIN ROSENBERGP Ot Z79.4 BUSINESS AGENT (CURRENT) USE OF INSULIN 04/18/2017 EDWIN ROSENBERG RESEARCH ANTHROPOLOGIST Ot Z87.19 PERSONAL HISTORY OF OTHER DISEASES OF TH 04/18/2017 EDWIN ROSENBERG RESEARCH ANTHROPOLOGIST Ot Z90.49 ACQUIRED ABSENCE OF OTHER SPECIFIED PART 04/18/2017 EDWIN ROSENBERG RESEARCH ANTHROPOLOGIST Ot Z90.711 ACQUIRED ABSENCE OF UTERUS WITH REMAININ 04/18/2017 EDWIN ROSENBERG RESEARCH ANTHROPOLOGIST Ot Z91.81 HISTORY OF FALLING 04/18/2017 Ot 272.4 HYPERLIPIDEMIA NEC/NOS 04/18/2017 Ot 305.1 TOBACCO USE DISORDER 04/18/2017 Ot 401.9 HYPERTENSION NOS 04/18/2017 Ot 786.50 CHEST PAIN NOS 04/18/2017 MADLALBIN RESEARCH ANTHROPOLOGIST Ot 571.8 CHRONIC LIVER DIS NEC 04/18/2017 MADALBIN Alanis RESEARCH ANTHROPOLOGIST Ot 592.0 CALCULUS OF KIDNEY 04/18/2017 BERT JASON APRN Ot 611.71 MASTODYNIA 04/18/2017 MADALBIN Alanis RESEARCH ANTHROPOLOGIST Ot M79.662 PAIN IN LEFT LOWER LEG 04/22/2017 EDWIN ROSENBERG RESEARCH ANTHROPOLOGIST Ot E11.21 TYPE 2 DIABETES MELLITUS WITH DIABETIC N 04/22/2017 CHET EDWIN RESEARCH ANTHROPOLOGIST Ot E11.65 TYPE 2 DIABETES MELLITUS WITH HYPERGLYCE 04/22/2017 CHET EDWIN RESEARCH ANTHROPOLOGIST Ot F17.210 NICOTINE DEPENDENCE, CIGARETTES, UNCOMPL 04/22/2017 EDWIN ROSENBERG RESEARCH ANTHROPOLOGIST Ot F32.9 MAJOR DEPRESSIVE DISORDER, SINGLE EPISOD 04/22/2017 EDWIN ROSENBERGP Ot F41.9 ANXIETY DISORDER, UNSPECIFIED 04/22/2017 EDWIN ROSENBERGP Ot I10 ESSENTIAL (PRIMARY) HYPERTENSION 04/22/2017 EDWIN ROSENBERGP Ot J45.909 UNSPECIFIED ASTHMA, UNCOMPLICATED 04/22/2017 EDWIN ROSENBERGP Ot K21.9 GASTRO-ESOPHAGEAL REFLUX DISEASE WITHOUT 04/22/2017 CHETEDWINP Ot M19.90 UNSPECIFIED OSTEOARTHRITIS, UNSPECIFIED 04/22/2017 CHET EDWIN AMBROSIOP Ot M25.562 PAIN IN LEFT KNEE 04/22/2017 EDWIN ROSENBERGP Ot W19.XXXA UNSPECIFIED FALL, INITIAL ENCOUNTER 04/22/2017 CHETEDWIN RESEARCH ANTHROPOLOGIST Ot Z79.4 NURSING HOME (CURRENT) USE OF INSULIN 04/22/2017 CHETEDWIN RESEARCH ANTHROPOLOGIST Ot Z87.19 PERSONAL HISTORY OF OTHER DISEASES OF TH 04/22/2017 CHET EDWIN AMBROSIOP Ot Z90.49 ACQUIRED ABSENCE OF OTHER SPECIFIED PART 04/22/2017 CHETEDWIN Aguiar RESEARCH ANTHROPOLOGIST Ot Z90.711 ACQUIRED ABSENCE OF UTERUS WITH REMAININ 04/22/2017 CHET, EDWIN AMBROSIOP Ot Z91.81 HISTORY OF FALLING 06/26/2017 HONEY [...] GASTRO-ESOPHAGEAL REFLUX DISEASE WITHOUT 06/26/2017 HONEY SEPULVEDA MD, Ot M19.91 PRIMARY OSTEOARTHRITIS, UNSPECIFIED SITE 06/26/2017 HONEY SEPULVEDA MD, Ot M62.81 MUSCLE WEAKNESS (GENERALIZED) 06/26/2017 HONEY SEPULVEDA MD Ot R40.0 SOMNOLENCE 06/26/2017 HONEY SEPULVEDA MD Ot R41.0 DISORIENTATION, UNSPECIFIED 06/26/2017 HONEY SEPULVEDA MD Ot R42 DIZZINESS AND GIDDINESS 06/26/2017 HONEY SEPULVEDA MD Ot R47.81 SLURRED SPEECH 06/26/2017 HONEY SEPULVEDA MD, Ot Z79.01 NURSING HOME (CURRENT) USE OF ANTICOAGULANT 06/26/2017 HONEY SEPULVEDA MD, Ot Z79.4 NURSING HOME (CURRENT) USE OF INSULIN 06/26/2017 HONEY SEPULVEDA [...] Ot M62.81 MUSCLE WEAKNESS (GENERALIZED) 06/26/2017 HONEY SEPULVDEA MD, Ot R40.0 SOMNOLENCE 06/26/2017 HONEY SEPULVEDA MD, Ot R41.0 DISORIENTATION, UNSPECIFIED 06/26/2017 HONEY SEPULVEDA MD Ot R42 DIZZINESS AND GIDDINESS 06/26/2017 HONEY SEPULVEDA MD Ot R47.81 SLURRED SPEECH 06/26/2017 HONEY SEPULVEDA MD, Ot Z79.01 NURSING HOME (CURRENT) USE OF ANTICOAGULANT 06/26/2017 HONEY SEPULVEDA MD Ot Z79.4 BUSINESS AGENT (CURRENT) USE OF INSULIN 06/26/2017 HONEY SEPULVEDA [...] SPEECH 06/26/2017 HONEY SEPULVEDA MD Ot Z79.01 NURSING HOME (CURRENT) USE OF ANTICOAGULANT 06/26/2017 HONEY SEPULVEDA MD Ot Z79.4 BUSINESS AGENT (CURRENT) USE OF INSULIN 06/26/2017 HONEY SEPULVEDA MD, Ot Z87.19 PERSONAL HISTORY OF OTHER DISEASES OF TH 06/26/2017 HONEY SEPULVEDA MD Ot Z87.440 PERSONAL HISTORY OF URINARY (TRACT) INFE 06/27/2017 HONEY SEPULVEDA MD Ot E11.40 TYPE 2 DIABETES MELLITUS WITH DIABETIC N 06/27/2017 HONEY SEPULVEDA MD, Ot E11.65 TYPE 2 DIABETES MELLITUS WITH HYPERGLYCE 06/27/2017 HONEY SEPULVEDA MD Ot F17.210 NICOTINE DEPENDENCE, CIGARETTES, UNCOMPL 06/27/2017 HONEY SEPULVEDA MD Ot F32.9 MAJOR DEPRESSIVE DISORDER, SINGLE EPISOD 06/27/2017 HONEY SEPULVEDA MD Ot F41.9 ANXIETY DISORDER, UNSPECIFIED 06/27/2017 HONEY SEPULVEDA MD Ot H93.19 TINNITUS, UNSPECIFIED EAR 06/27/2017 HONEY SEPULVEDA MD Ot I11.0 HYPERTENSIVE HEART DISEASE WITH HEART FA 06/27/2017 HONEY SEPULVEDA MD Ot I50.9 HEART FAILURE, UNSPECIFIED 06/27/2017 HONEY SEPULVEDA MD Ot J45.909 UNSPECIFIED ASTHMA, UNCOMPLICATED 06/27/2017 HONEY SEPULVEDA MD Ot K21.9 GASTRO-ESOPHAGEAL REFLUX DISEASE WITHOUT 06/27/2017 HONEY SEPULVEDA MD Ot M19.91 PRIMARY OSTEOARTHRITIS, UNSPECIFIED SITE 06/27/2017 HONEY SEPULVEDA MD Ot M62.81 MUSCLE WEAKNESS (GENERALIZED) 06/27/2017 HONEY SEPULVEDA MD Ot R40.0 SOMNOLENCE 06/27/2017 HONEY SEPULVEDA MD Ot R41.0 DISORIENTATION, UNSPECIFIED 06/27/2017 HONEY SEPULVEDA MD Ot R42 DIZZINESS AND GIDDINESS 06/27/2017 HONEY SEPULVEDA MD Ot R47.81 SLURRED SPEECH 06/27/2017 HONEY SEPULVEDA MD, Ot Z79.01 BUSINESS AGENT (CURRENT) USE OF ANTICOAGULANT 06/27/2017 HONEY SEPULVEDA MD, Ot Z79.4 BUSINESS AGENT (CURRENT) USE OF INSULIN 06/27/2017 HONEY SEPULVEDA MD, Ot Z87.19 PERSONAL HISTORY OF OTHER DISEASES OF TH 06/27/2017 HONEY SEPULVEDA MD Ot Z87.440 PERSONAL HISTORY OF URINARY (TRACT) INFE 06/27/2017 HONEY SEPULVEDA MD Ot E11.40 TYPE 2 DIABETES MELLITUS WITH DIABETIC N 06/27/2017 HONEY SEPULVEDA MD, Ot E11.65 TYPE 2 DIABETES MELLITUS WITH HYPERGLYCE 06/27/2017 HONEY SEPULVEDA MD Ot E78.00 PURE HYPERCHOLESTEROLEMIA, UNSPECIFIED 06/27/2017 HONEY SEPULVEDA MD Ot F17.210 NICOTINE DEPENDENCE, CIGARETTES, UNCOMPL 06/27/2017 HONEY SEPULVEDA MD Ot F32.9 MAJOR DEPRESSIVE DISORDER, SINGLE EPISOD 06/27/2017 HONEY SEPULVEDA MD Ot F41.9 ANXIETY DISORDER, UNSPECIFIED 06/27/2017 HONEY SEPULVEDA MD Ot G89.29 OTHER CHRONIC PAIN 06/27/2017 HONEY SEPULVEDA MD Ot H93.19 TINNITUS, UNSPECIFIED EAR 06/27/2017 HONEY SEPULVEDA MD Ot I10 ESSENTIAL (PRIMARY) HYPERTENSION 06/27/2017 HONEY SEPULVEDA MD Ot I63.9 CEREBRAL INFARCTION, UNSPECIFIED 06/27/2017 HONEY SEPULVEDA MD Ot J44.9 CHRONIC OBSTRUCTIVE PULMONARY DISEASE, U 06/27/2017 HONEY SEPULVEDA MD Ot J45.909 UNSPECIFIED ASTHMA, UNCOMPLICATED 06/27/2017 HONEY SEPULVEDA MD Ot K21.9 GASTRO-ESOPHAGEAL REFLUX DISEASE WITHOUT 06/27/2017 HONEY SEPULVEDA MD Ot M19.91 PRIMARY OSTEOARTHRITIS, UNSPECIFIED SITE 06/27/2017 HONEY SEPULVEDA MD, Ot M54.9 DORSALGIA, UNSPECIFIED 06/27/2017 HONEY SEPULVEDA MD Ot M62.81 MUSCLE WEAKNESS (GENERALIZED) 06/27/2017 HONEY SEPULVEDA MD Ot R41.0 DISORIENTATION, UNSPECIFIED 06/27/2017 HONEY SEPULVEDA MD Ot R42 DIZZINESS AND GIDDINESS 06/27/2017 HONEY SEPULVEDA MD Ot R47.81 SLURRED SPEECH 06/27/2017 HONEY SEPULVEDA MD Ot Z79.01 BUSINESS AGENT (CURRENT) USE OF ANTICOAGULANT 06/27/2017 HONEY SEPULVEDA MD Ot Z79.4 NURSING HOME (CURRENT) USE OF INSULIN 06/27/2017 HONEY SEPULVEDA MD Ot Z87.19 PERSONAL HISTORY OF OTHER DISEASES OF TH 06/27/2017 HONEY SEPULVEDA MD, Ot Z87.440 PERSONAL HISTORY OF URINARY (TRACT) INFE 06/27/2017 HONEY SEPULVEDA MD Ot Z99.81 DEPENDENCE ON SUPPLEMENTAL OXYGEN 07/02/2017 Alan BAILEY MD Ot I50.9 HEART FAILURE, UNSPECIFIED 07/02/2017 Alan BAILEY MD, Ot Z53.29 PROC/TRTMT NOT CRD OUT BEC PT DECISION F 11/01/2017 Alan BAILEY MD Ot E13.9 OTHER SPECIFIED DIABETES MELLITUS WITHOU 11/01/2017 Alan BAILEY MD Ot E78.2 MIXED HYPERLIPIDEMIA 11/01/2017 Alan BAILEY MD Ot I10 ESSENTIAL (PRIMARY) HYPERTENSION 11/01/2017 Alan BAILEY MD Ot R06.00 DYSPNEA, UNSPECIFIED 11/01/2017 Alan BAILEY MD Ot R07.9 CHEST PAIN, UNSPECIFIED 11/05/2017 Ot 272.4 HYPERLIPIDEMIA NEC/NOS 11/05/2017 Ot 305.1 TOBACCO USE DISORDER 11/05/2017 Ot 401.9 HYPERTENSION NOS 11/05/2017 Ot 786.50 CHEST PAIN NOS 11/05/2017 MADL, ALBIN L RESEARCH ANTHROPOLOGIST Ot 571.8 CHRONIC LIVER DIS NEC 11/05/2017 MADL, ALBIN L RESEARCH ANTHROPOLOGIST Ot 592.0 CALCULUS OF KIDNEY 11/05/2017 BERT JASON APRN Ot 611.71 MASTODYNIA 11/05/2017 MADL, ALBIN L RESEARCH ANTHROPOLOGIST Ot M79.662 PAIN IN LEFT LOWER LEG 11/05/2017 Alan BAILEY MD Ot I50.9 HEART FAILURE, UNSPECIFIED 11/05/2017 Alan BAILEY MD, Ot Z53.29 PROC/TRTMT NOT CRD OUT BEC [...] MD Ot E78.2 MIXED HYPERLIPIDEMIA 11/06/2017 Alan BAILEY MD Ot I10 ESSENTIAL (PRIMARY) HYPERTENSION 11/06/2017 Alan BAILEY MD Ot R06.00 DYSPNEA, UNSPECIFIED 11/06/2017 Alan BAILEY MD Ot R07.9 CHEST PAIN, [...] MD Ot I25.10 ATHSCL HEART DISEASE OF [place] CORONARY 11/07/2017 Alan BAILEY MD Ot J45.909 UNSPECIFIED ASTHMA, UNCOMPLICATED 11/07/2017 Alan BAILEY MD Ot M19.91 PRIMARY OSTEOARTHRITIS, UNSPECIFIED SITE 11/07/2017 Alan BAILEY MD Ot R06.02 SHORTNESS OF BREATH 11/07/2017 Alan BAILEY MD Ot R07.9 CHEST PAIN, UNSPECIFIED 11/07/2017 Alan BAILEY MD, Ot R94.39 ABNORMAL RESULT OF OTHER CARDIOVASCULAR 11/07/2017 Alan BAILEY MD, Ot Z68.41 BODY MASS INDEX (BMI) 40.0-44.9, ADULT 11/07/2017 Alan BAILEY MD Ot Z79.01 NURSING HOME (CURRENT) USE OF ANTICOAGULANT 11/07/2017 Alan BAILEY MD, Ot Z79.4 NURSING HOME (CURRENT) USE OF INSULIN 11/07/2017 Alan BAILEY MD, Ot Z79.899 OTHER NURSING HOME (CURRENT) DRUG THERAPY 11/07/2017 Alan BAILEY MD, Ot Z86.711 PERSONAL HISTORY OF PULMONARY EMBOLISM 11/07/2017 Alan BAILEY MD, Ot Z86.73 PRSNL HX OF TIA (TIA), AND CEREB INFRC W 11/08/2017 Alan BAILEY MD Ot E11.40 TYPE 2 DIABETES MELLITUS WITH DIABETIC N 11/08/2017 Alan BAILEY MD Ot E66.01 MORBID (SEVERE) OBESITY DUE TO EXCESS CA 11/08/2017 Alan BAILEY MD Ot E78.2 MIXED HYPERLIPIDEMIA 11/08/2017 Alan BAILEY MD Ot F17.210 NICOTINE DEPENDENCE, CIGARETTES, UNCOMPL 11/08/2017 Alan BAILEY MD Ot F32.9 MAJOR DEPRESSIVE DISORDER, SINGLE EPISOD 11/08/2017 Alan BAILEY MD Ot I10 ESSENTIAL (PRIMARY) HYPERTENSION 11/08/2017 Alan BAILEY MD, Ot I25.10 ATHSCL HEART DISEASE OF [place] CORONARY 11/08/2017 Alan BAILEY MD Ot J45.909 UNSPECIFIED ASTHMA, UNCOMPLICATED 11/08/2017 Alan BAILEY MD Ot M19.91 PRIMARY OSTEOARTHRITIS, UNSPECIFIED SITE 11/08/2017 Alan BAILEY MD Ot R06.02 SHORTNESS OF BREATH 11/08/2017 Alan BAILEY MD Ot R07.9 CHEST PAIN, UNSPECIFIED 11/08/2017 Alan BAILEY MD Ot R94.39 ABNORMAL RESULT OF OTHER CARDIOVASCULAR 11/08/2017 Alan BAILEY MD Ot Z68.41 BODY MASS INDEX (BMI) 40.0-44.9, ADULT 11/08/2017 Alan BAILEY MD Ot Z79.01 NURSING HOME (CURRENT) USE OF ANTICOAGULANT 11/08/2017 Alan BAILEY MD Ot Z79.4 BUSINESS AGENT (CURRENT) USE OF INSULIN 11/08/2017 Alan BAILEY MD, Ot Z79.899 OTHER NURSING HOME (CURRENT) DRUG THERAPY 11/08/2017 Alan BAILEY MD, Ot Z86.711 PERSONAL HISTORY OF PULMONARY EMBOLISM 11/08/2017 Alan BAILEY MD, Ot Z86.73 PRSNL HX OF TIA (TIA), AND CEREB INFRC W 11/29/2017 Alan BAILEY MD Ot E13.9 OTHER SPECIFIED DIABETES MELLITUS WITHOU 11/29/2017 Alan BAILEY MD Ot E78.2 MIXED HYPERLIPIDEMIA 11/29/2017 Alan BAILEY MD Ot I10 ESSENTIAL (PRIMARY) HYPERTENSION 11/29/2017 Alan BAILEY MD Ot R06.00 DYSPNEA, UNSPECIFIED 11/29/2017 Alan BAILEY MD Ot R07.9 CHEST PAIN, UNSPECIFIED 09/22/2018 Ot 272.4 HYPERLIPIDEMIA NEC/NOS 09/22/2018 Ot 305.1 TOBACCO USE DISORDER 09/22/2018 Ot 401.9 HYPERTENSION NOS 09/22/2018 Ot 786.50 CHEST PAIN NOS 09/22/2018 MADLAIMEEA L RESEARCH ANTHROPOLOGIST Ot 571.8 CHRONIC LIVER DIS NEC 09/22/2018 AIMEE RENAEA L RESEARCH ANTHROPOLOGIST Ot 592.0 CALCULUS OF KIDNEY 09/22/2018 BERT JASON APRN Ot 611.71 MASTODYNIA 09/22/2018 AIMEE RENAEA L RESEARCH ANTHROPOLOGIST Ot M79.662 PAIN IN LEFT LOWER LEG 09/22/2018 Alan BAILEY MD Ot I50.9 HEART FAILURE, UNSPECIFIED 09/22/2018 Alan BAILEY MD Ot Z53.29 PROC/TRTMT NOT CRD OUT BEC PT DECISION F 09/22/2018 Alan BAILEY MD Ot E13.9 OTHER SPECIFIED DIABETES MELLITUS WITHOU 09/22/2018 Alan BAILEY MD Ot E78.2 MIXED HYPERLIPIDEMIA 09/22/2018 Alan BAILEY MD Ot I10 ESSENTIAL (PRIMARY) HYPERTENSION 09/22/2018 Alan BAILEY MD Ot R06.00 DYSPNEA, UNSPECIFIED 09/22/2018 Alan BAILEY MD Ot R07.9 CHEST PAIN, UNSPECIFIED 09/22/2018 Alan BAILEY MD Ot E13.9 OTHER SPECIFIED DIABETES MELLITUS WITHOU 09/22/2018 Alan BAILEY MD Ot E78.2 MIXED HYPERLIPIDEMIA 09/22/2018 Alan BAILEY MD Ot I10 ESSENTIAL (PRIMARY) HYPERTENSION 09/22/2018 Alan BAILEY MD Ot R06.00 DYSPNEA, UNSPECIFIED 09/22/2018 Alan BAILEY MD Ot R07.9 CHEST PAIN, UNSPECIFIED 09/25/2018 SUHAS ALLRED MD Ot A08.4 VIRAL INTESTINAL INFECTION, UNSPECIFIED 09/25/2018 SUHAS ALLRED MD Ot A41.9 SEPSIS, UNSPECIFIED ORGANISM 09/25/2018 SUHAS ALLRED MD Ot E11.42 TYPE 2 DIABETES MELLITUS WITH DIABETIC P 09/25/2018 SUHAS ALLRED MD Ot E78.00 PURE HYPERCHOLESTEROLEMIA, UNSPECIFIED 09/25/2018 SUHAS ALLRED MD Ot F17.210 NICOTINE DEPENDENCE, CIGARETTES, UNCOMPL 09/25/2018 SUHAS ALLRED MD Ot F32.9 MAJOR DEPRESSIVE DISORDER, SINGLE EPISOD 09/25/2018 SUHAS ALLRED MD Ot F41.9 ANXIETY DISORDER, UNSPECIFIED 09/25/2018 SUHAS ALLRED MD Ot H93.19 TINNITUS, UNSPECIFIED EAR 09/25/2018 SUHAS ALLRED MD Ot I10 ESSENTIAL (PRIMARY) HYPERTENSION 09/25/2018 SUHAS ALLRED MD, Ot J44.9 CHRONIC OBSTRUCTIVE PULMONARY DISEASE, U 09/25/2018 SUHAS ALLRED MD, Ot K21.9 GASTRO-ESOPHAGEAL REFLUX DISEASE WITHOUT 09/25/2018 SUHAS ALLRED MD, Ot M19.91 PRIMARY OSTEOARTHRITIS, UNSPECIFIED SITE 09/25/2018 SUHAS ALLRED MD, Ot N30.01 ACUTE CYSTITIS WITH HEMATURIA 09/25/2018 SUHAS ALLRED MD, Ot N63.20 UNSPECIFIED LUMP IN THE LEFT BREAST, UNS 09/25/2018 SUHAS ALLRED MD, Ot Z79.01 BUSINESS AGENT (CURRENT) USE OF ANTICOAGULANT 09/25/2018 SUHAS ALLRED MD, Ot Z79.4 BUSINESS AGENT (CURRENT) USE OF INSULIN 09/25/2018 SUHAS ALLRED MD, Ot Z86.19 PERSONAL HISTORY OF OTHER INFECTIOUS AND 09/25/2018 SUHAS ALLRED MD, Ot Z86.711 PERSONAL HISTORY OF PULMONARY EMBOLISM 09/25/2018 SUHAS ALLRED MD, Ot Z87.19 PERSONAL HISTORY OF OTHER DISEASES OF TH Procedures Code [place] [address] ROUTINE VENIPUNCTURE 12/03/2013 85436 UA LONG DIP 12/03/2013 00223 CBC 12/03/2013 3713784 GFR CALC (RESULT ONLY) 12/03/2013 50576 CMP 12/03/2013 38450 A1C (RML) 12/03/2013 81850 LIPASE 12/03/2013 85845 CULTURE URINE 12/06/2013 74408 UA W/ CULTURE IF INDICATED 12/24/2013 11733 CULTURE URINE 12/29/2013 52765 ROUTINE VENIPUNCTURE 01/14/2014 12324 MICRO ALBUMIN-IN HOUSE 01/14/2014 4166662 GFR CALC (RESULT ONLY) 01/15/2014 36258 BMP 01/15/2014 54000 MICROALBUMIN 01/15/2014 89863 XRAY SHOULDER RIGHT COMP 2 VIEWS 01/28/2014 43370 XRAY ELBOW R 2 VIEWS 01/28/2014 84451 UA W/ CULTURE IF INDICATED 01/28/2014 72288 A1C (IN-HOUSE) 03/01/2014 56350 EKG, TRACING 03/30/2014 86478 OXIMETRY 03/30/2014 10243 ROUTINE VENIPUNCTURE 05/18/2014 65790 CBC 05/18/20145612052 GFR CALC (RESULT ONLY) 05/18/2014 67263 CMP 05/18/2014 18711 BNP 05/19/2014 46226 ROUTINE VENIPUNCTURE 07/01/2014 90240 XRAY FOOT RIGHT 2 VIEWS 07/01/2014 62843 CULTURE URINE 07/01/2014 01949 A1C (IN-HOUSE) 07/01/20148190503 GFR CALC (RESULT ONLY) 07/01/2014 68497 [facility] 07/01/2014 43475 ROUTINE VENIPUNCTURE 08/26/20145585457 GFR CALC (RESULT ONLY) 08/26/2014 13195 [facility] 08/26/[address] ABDOMEN W/O CONTRAST 11/17/2014 Results Test [...] culture - 06/27/17 09:15 Bacterial blood culture [facility] Bacterial blood culture - 06/27/17 09:23 Bacterial blood culture [facility] Automated blood complete blood count (hemogram) panel [...] measurement by glucometer (mass/volume) 330 mg/dL 70-110 Complete blood count (CBC) with automated white blood cell (WBC) differential - 09/22/18 15:10 Blood leukocytes automated count (number/volume) 13.6 10*3/uL 4.3-11.0 Blood erythrocytes automated count (number/volume) 4.95 10*6/uL 4.35-5.85 Venous blood hemoglobin measurement (mass/volume) 14.7 g/dL 11.5-16.0 Blood hematocrit (volume fraction) 42 % 35-52 Automated erythrocyte mean corpuscular volume 86 [foz_us] 80-99 Automated erythrocyte mean corpuscular hemoglobin (mass per erythrocyte) 30 pg 25-34 Automated erythrocyte mean corpuscular hemoglobin concentration measurement ( mass/volume) 35 g/dL 32-36 Automated erythrocyte distribution width ratio 14.6 % 10.0-14.5 Automated blood platelet count (count/volume) 331 10*3/uL 130-400 Automated blood platelet mean volume measurement 12.4 [foz_us] 7.4-10.4 Automated blood neutrophils/100 leukocytes 68 % 42-75 Automated blood lymphocytes/100 leukocytes 20 % 12-44 Blood monocytes/100 leukocytes 10 % 0-12 Automated blood eosinophils/100 leukocytes 2 % 0-10 Automated blood basophils/100 leukocytes 1 % 0-10 Blood neutrophils automated count (number/volume) 9.3 10*3 1.8-7.8 Blood lymphocytes automated count (number/volume) 2.8 10*3 1.0-4.0 Blood monocytes automated count (number/volume) 1.3 10*3 0.0-1.0 Automated eosinophil count 0.2 10*3/uL 0.0-0.3 Automated blood basophil count (count/volume) 0.1 10*3/uL 0.0-0.1 Blood lactic acid measurement (moles/volume) - 09/22/18 15:10 Blood lactic acid measurement (moles/volume) 1.60 mmol/L 0.50-2.00 Comprehensive metabolic panel - 09/22/18 15:10 Serum or plasma sodium measurement (moles/volume) 137 mmol/L 135-145 Serum or plasma potassium measurement (moles/volume) 4.0 mmol/L 3.6-5.0 Serum or plasma chloride measurement (moles/volume) 98 mmol/L 98-107 Carbon dioxide 23 mmol/L 21-32 Serum or plasma anion gap determination (moles/volume) 16 mmol/L 5-14 Serum or plasma urea nitrogen measurement (mass/volume) 17 mg/dL 7-18 Serum or plasma creatinine measurement (mass/volume) 1.04 mg/dL 0.60-1.30 Serum or plasma urea nitrogen/creatinine mass ratio 16 NRG Serum or plasma creatinine measurement with calculation of estimated glomerular filtration rate 55 NRG Serum or plasma glucose measurement (mass/volume) 263 mg/dL 70-105 Serum or plasma calcium measurement (mass/volume) 10.1 mg/dL 8.5-10.1 Serum or plasma total bilirubin measurement (mass/volume) 0.2 mg/dL 0.1-1.0 Serum or plasma alkaline phosphatase measurement (enzymatic activity/volume) 82 U/L 40-136 Serum or plasma aspartate aminotransferase measurement (enzymatic activity/ volume) 25 U/L 5-34 Serum or plasma alanine aminotransferase measurement (enzymatic activity/volume ) 18 U/L 0-55 Serum or plasma protein measurement (mass/volume) 7.7 g/dL 6.4-8.2 Serum or plasma albumin measurement (mass/volume) 3.4 g/dL 3.2-4.5 CALCIUM CORRECTED 10.6 mg/dL 8.5-10.1 Lipase - 09/22/18 15:10 Lipase 30 U/L 8-78 Bacterial blood culture - 09/22/18 15:10 Bacterial blood culture NG [facility] Capillary blood glucose measurement by glucometer (mass/volume) - 09/22/18 15: 26 Capillary blood glucose measurement by glucometer (mass/volume) 283 mg/dL 70-110 Influenza virus A and B antigen detection - 09/22/18 15:44 FLU RESULT NEGATIVE FOR INFLUENZA A AND B ANTIGENS BY IA [facility] Bacterial blood culture - 09/22/18 15:55 Bacterial blood culture NG [facility] Complete urinalysis with reflex to culture - 09/22/18 17:02 Urine color determination YELLOW NRG Urine clarity determination SLIGHTLY CLOUDY NR Urine pH measurement by test strip 5 5-9 Specific gravity of urine by test strip 1.015 1.016- 1.022 Urine protein assay by test strip, semi-quantitative 2+ NEGATIVE Urine glucose detection by automated test strip 4+ NEGATIVE Erythrocytes detection in urine sediment by light microscopy 3+ NEGATIVE Urine ketones detection by automated test strip 2+ NEGATIVE Urine nitrite detection by test strip NEGATIVE NEGATIVE Urine total bilirubin detection by test strip NEGATIVE NEGATIVE Urine urobilinogen measurement by automated test strip (mass/volume) NORMAL NORMAL Urine leukocyte esterase detection by dipstick 3+ NEGATIVE Automated urine sediment erythrocyte count by microscopy (number/high power field) [HPF] NRG Automated urine sediment leukocyte count by microscopy (number/high power field ) TNTC NRG Bacteria detection in urine sediment by light microscopy LARGE NRG Squamous epithelial cells detection in urine sediment by light microscopy 2-5 NRG Crystals detection in urine sediment by light microscopy NONE NRG Casts detection in urine sediment by light microscopy NONE NRG Mucus detection in urine sediment by light microscopy NEGATIVE NRG Complete urinalysis with reflex to culture YES NRG Yeast detection in urine sediment by light microscopy MODERATE NRG Bacterial urine culture - 09/22/18 17:02 Bacterial urine culture [id number] NRG COLONY COUNT >100,000/ML NR FTX;REPORTABLE SUSCEPTIBILITY REPORTED 09-25-17 19 NR FREE TEXT ENTRY 2 RESISTANT ORGANISM/CONTACT PRECAUTIONS NR FREE TEXT ENTRY 3 ESBL/MDRO ORGANISM NR RML Sensitivity Panel - 09/22/18 17:02 Gentamicin susceptibility test by minimum inhibitory concentration < = NRG Trimethoprim/sulfamethoxazole susceptibility test by minimum inhibitoryconcentration > NRG Levofloxacin susceptibility test by minimum inhibitory concentration > NRG Tetracycline susceptibility test by minimum inhibitory concentration <= NRG Ampicillin susceptibility test by minimum inhibitory concentration > NRG Cefazolin susceptibility test by minimum inhibitory concentration > NRG Ceftriaxone susceptibility test by minimum inhibitory concentration > NRG Piperacillin/tazobactam susceptibility test by minimum inhibitory concentration = NRG Ciprofloxacin susceptibility test by minimum inhibitory concentration > NRG Meropenem susceptibility test by minimum inhibitory concentration < = NRG Nitrofurantoin susceptibility test by minimum inhibitory concentration 32 NRG Amikacin susceptibility test by minimum inhibitory concentration <= NRG Ertapenem susceptibility test by minimum inhibitory concentration S NRG Amoxicillin and clavulanate potassium susc RENO R NRG Imipenem susceptibility test by minimum inhibitory concentration <= NRG Capillary blood glucose measurement by glucometer (mass/volume) - 09/22/18 21: 09 Capillary blood glucose measurement by glucometer (mass/volume) 305 mg/dL 70-110 Complete blood count (CBC) with automated white blood cell (WBC) differential - 09/23/18 05:05 Blood leukocytes automated count (number/volume) 12.0 10*3/uL 4.3-11.0 Blood erythrocytes automated count (number/volume) 4.21 10*6/uL 4.35-5.85 Venous blood hemoglobin measurement (mass/volume) 12.2 g/dL 11.5-16.0 Blood hematocrit (volume fraction) 37 % 35-52 Automated erythrocyte mean corpuscular volume 88 [foz_us] 80-99 Automated erythrocyte mean corpuscular hemoglobin (mass per erythrocyte) 29 pg 25-34 Automated erythrocyte mean corpuscular hemoglobin concentration measurement ( mass/volume) 33 g/dL 32-36 Automated erythrocyte distribution width ratio 14.1 % 10.0-14.5 Automated blood platelet count (count/volume) 259 10*3/uL 130-400 Automated blood platelet mean volume measurement 12.2 [foz_us] 7.4-10.4 Automated blood neutrophils/100 leukocytes 56 % 42-75 Automated blood lymphocytes/100 leukocytes 32 % 12-44 Blood monocytes/100 leukocytes 10 % 0-12 Automated blood eosinophils/100 leukocytes 2 % 0-10 Automated blood basophils/100 leukocytes 1 % 0-10 Blood neutrophils automated count (number/volume) 6.7 10*3 1.8-7.8 Blood lymphocytes automated count (number/volume) 3.8 10*3 1.0-4.0 Blood monocytes automated count (number/volume) 1.1 10*3 0.0-1.0 Automated eosinophil count 0.3 10*3/uL 0.0-0.3 Automated blood basophil count (count/volume) 0.1 10*3/uL 0.0-0.1 Whole blood basic metabolic panel - 09/23/18 05:05 Serum or plasma sodium measurement (moles/volume) 135 mmol/L 135-145 Serum or plasma potassium measurement (moles/volume) 3.5 mmol/L 3.6-5.0 Serum or plasma chloride measurement (moles/volume) 103 mmol/L 98-107 Carbon dioxide 19 mmol/L 21-32 Serum or plasma anion gap determination (moles/volume) 13 mmol/L 5-14 Serum or plasma urea nitrogen measurement (mass/volume) 23 mg/dL 7-18 Serum or plasma creatinine measurement (mass/volume) 0.98 mg/dL 0.60-1.30 Serum or plasma urea nitrogen/creatinine mass ratio 23 NRG Serum or plasma creatinine measurement with calculation of estimated glomerular filtration rate 59 NRG Serum or plasma glucose measurement (mass/volume) 264 mg/dL 70-105 Serum or plasma calcium measurement (mass/volume) 9.1 mg/dL 8.5-10.1 Capillary blood glucose measurement by glucometer (mass/volume) - 09/23/18 05: 13 Capillary blood glucose measurement by glucometer (mass/volume) 244 mg/dL 70-110 Capillary blood glucose measurement by glucometer (mass/volume) - 09/23/18 11: 02 Capillary blood glucose measurement by glucometer (mass/volume) 90 mg/dL 70-110 Capillary blood glucose measurement by glucometer (mass/volume) - 09/23/18 15: 56 Capillary blood glucose measurement by glucometer (mass/volume) 180 mg/dL 70-110 Capillary blood glucose measurement by glucometer (mass/volume) - 09/23/18 20: 25 Capillary blood glucose measurement by glucometer (mass/volume) 174 mg/dL 70-110 Capillary blood glucose measurement by glucometer (mass/volume) - 09/24/18 04: 44 Capillary blood glucose measurement by glucometer (mass/volume) 252 mg/dL 70-110 Capillary blood glucose measurement by glucometer (mass/volume) - 09/24/18 11: 38 Capillary blood glucose measurement by glucometer (mass/volume) 248 mg/dL 70-110 Capillary blood glucose measurement by glucometer (mass/volume) - 09/24/18 15: 10 Capillary blood glucose measurement by glucometer (mass/volume) 212 mg/dL 70-110 Capillary blood glucose measurement by glucometer (mass/volume) - 09/24/18 20: 38 Capillary blood glucose measurement by glucometer (mass/volume) 257 mg/dL 70-110 Capillary blood glucose measurement by glucometer (mass/volume) - 09/25/18 06: 12 Capillary blood glucose measurement by glucometer (mass/volume) 311 mg/dL 70-110 Capillary blood glucose measurement by glucometer (mass/volume) - 09/25/18 11: 12 Capillary blood glucose measurement by glucometer (mass/volume) 269 mg/dL 70-110 Encounters ACCT No. Visit Date/Time Discharge Status Pt. Type Provider Facility Loc./Unit Complaint [id number] 11/17/2014 09:22:00 11/17/2014 23:59:59 CLS Outpatient MADL LOG FEEDER, ALBIN L [id number] 10/28/2014 09:28:00 10/28/2014 23:59:59 CLS Outpatient BAH DOSABRINAA K [id number] 10/28/2014 09:28:00 10/28/2014 23:59:59 CLS Outpatient MADL LOG FEEDER, ALBIN L [id number] 08/26/2014 14:10:00 08/26/2014 23:59:59 CLS Outpatient DEANDRE CUEVAS MD [id number] 07/01/2014 15:01:00 07/01/2014 23:59:59 CLS Outpatient MADL LOG FEEDER, ALBIN L [id number] 07/01/2014 15:01:00 07/01/2014 23:59:59 CLS Outpatient BAH DOSABRINAA K [id number] 05/18/2014 11:12:00 05/18/2014 23:59:59 CLS Outpatient BAH DOSABRINAA K [id number] 04/21/2014 04:04:00 04/21/2014 23:59:59 CLS Outpatient DEANDRE CUEVAS MD [id number] 03/30/2014 14:37:00 03/30/2014 23:59:59 CLS Outpatient BAH DOSABRINAA Cate [id number] 03/01/2014 10:56:00 03/01/2014 23:59:59 CLS Outpatient MADL LOG FEEDER, ALBIN L [id number] 03/01/2014 10:56:00 03/01/2014 23:59:59 CLS Outpatient BAH DO COCO K [id number] 01/28/2014 11:10:00 01/28/2014 23:59:59 CLS Outpatient MADL LOG FEEDER, ALBIN L [id number] 01/14/2014 14:47:00 01/14/2014 23:59:59 CLS Outpatient BAH DOSABRINAA Cate [id number] 12/24/2013 10:23:00 12/24/2013 23:59:59 CLS Outpatient BAH DO COCO K [id number] 12/03/2013 10:48:00 12/03/2013 23:59:59 CLS Outpatient PAMELA AMI RIVERAROSANA Emanuel [id number] 04/30/2012 10:35:00 04/30/2012 23:59:59 CLS Outpatient [id number] 04/16/2012 17:02:00 04/16/2012 23:59:59 CLS Outpatient AHSAN CHANG APRN [id number] 09/22/2018 17:40:00 09/25/2018 15:00:00 DIS Inpatient SUHAS ALLRED MD [facility] 4TH UTI,SEPSIS,GASTORENTRITIS ,COLITIS [id number] 11/07/2017 08:21:00 11/07/2017 14:40:00 DIS Outpatient Alan BAILEY MD [facility] ABN STRESS TEST [id number] 11/05/2017 12:43:00 11/05/2017 23:59:59 CLS Outpatient Alan BAILEY MD [facility] CARD R07.9 CHEST PAIN [id number] 10/31/2017 07:14:00 10/31/2017 23:59:59 CLS Outpatient Alan BAILEY MD [facility] CARD R07.9 CHEST PAIN [id number] 07/11/2017 08:00:00 07/11/2017 23:59:59 CLS Preadmit Alan BAILEY MD [facility] CARD CHF [id number] 07/01/2017 10:30:00 07/01/2017 23:59:59 CLS Outpatient Alan BAILEY MD [facility] CARD CHF [id number] 06/25/2017 18:32:00 06/27/2017 12:15:00 DIS Inpatient HONEY SEPULVEDA MD [facility] 4TH HEART FAILURE, UNCONTROLLED HYPERGLYCEMIA,AMS [id number] 04/18/2017 17:04:00 04/18/2017 19:45:00 DIS Emergency CHETEDWIN Aguiar RESEARCH ANTHROPOLOGIST [facility] ER LEFT LEG INJ [id number] 12/09/2015 09:53:00 12/09/2015 15:00:00 DIS Outpatient MANISHA OLIVIA MD [facility] WOUNDCARE [id number] 07/29/2015 08:42:00 07/29/2015 23:59:59 CLS Outpatient ALBIN RENAE RESEARCH ANTHROPOLOGIST [facility] RAD PAIN IN LEFT LOWER LEG [id number] 03/23/2015 12:26:00 03/23/2015 23:59:59 CLS Outpatient BERT JASON APRN [facility] RAD MASTIDONA [id number] 03/01/2015 16:06:00 03/01/2015 20:24:00 DIS Emergency LEANN CONTRERAS [facility] ER ABD/BACK PAIN; HEADACHE [id number] 11/19/2014 12:44:00 11/19/2014 23:59:59 CLS Outpatient OC ALBIN Alanis RESEARCH ANTHROPOLOGIST [facility] RAD ABDOMINAL PAIN [id number] 07/23/2014 15:00:00 07/24/2014 11:50:00 DIS Inpatient DEANDRE CUEVAS MD [facility] 4TH UNCONTROLLED DIABETES, CHRONIC HYPONATREMIA [id number] 06/23/2014 21:06:00 06/24/2014 00:16:00 DIS Emergency LEANN CONTRERAS [facility] ER HEADACHE [id number] 03/25/2014 02:45:00 03/26/2014 14:52:00 DIS Inpatient DEANDRE CUEVAS MD [facility] CSD PYELONEPHRISTIS,UTI, CHEST PAIN [id number] 10/01/2013 12:41:00 10/01/2013 15:11:00 DIS Emergency HONEY SEPULVEDA MD [facility] ER FALL/BACK PAIN [id number] 10/28/2014 11:16:00 Document Registration [id number] 02/20/2012 23:24:00 Document Registration [id number] 08/27/2011 07:33:00 Document Registration [id number] 01/05/2011 15:15:00 Document Registration [id number] 10/04/2010 10:07:00 Document Registration [id number] 03/23/2015 12:27:07 ACT Document Registration
--- NOTE | 2018-10-26 23:23 | ED General ---
General Chief Complaint: Dizziness/Syncope Stated Complaint: SYNCOPE Nursing Triage Note: pt states dizziness with falls since yesterday, has recently been treated for staff infection receiving antibiotic injections in dr office. Nursing Sepsis Screen: No Definite Risk Source of Information: Patient, EMS Exam Limitations: No Limitations History of Present Illness Date Seen by Provider: Oct 26, 2018 Time Seen by Provider: 23:19 Initial Comments Patient has been very lightheaded and dizzy since yesterday. She has fallen a few times (no injury). She denies nausea or vomiting. She complains of aching all over. Symptoms are worse with any movement. They're slightly better when she doesn't remain still. Symptoms were so severe tonight she had called the ambulance. She is uncertain if she actually lost consciousness. She denies chest pain or shortness of air. Has a history of poorly controlled diabetes. She was recently hospitalized for urosepsis. Allergies and Home Medications Allergies Coded Allergies: influenza virus vaccine, specific (Unverified Allergy, Intermediate, rash , 09/23/18) aspirin (Unverified Allergy, Unknown, convulsions, 09/23/18) metformin (Verified Adverse Reaction, Intermediate, joint pain, 09/23/18) hydromorphone HCl (Unverified Adverse Reaction, Mild, VOMITING, 01/06/11) Home Medications Albuterol Sulfate 1 Puff Puff, 2 PUFF IH QID PRN for SHORTNESS OF BREATH, ( Reported) Amitriptyline HCl 50 Mg Tablet, 50 MG PO HS, (Reported) Amlodipine Besylate 2.5 Mg Tablet, 2.5 MG PO 1200, (Reported) LAST FILLED #90 05-28-18 Apixaban 5 Mg Tablet, 5 MG PO BID, (Reported) Cranberry Conc/Ascorbic Acid 1 Each Capsule, 1 CAP PO HS, (Reported) Cyclobenzaprine HCl 10 Mg Tablet, 10 MG PO TID, (Reported) Dapagliflozin Propanediol 10 Mg Tablet, 10 MG PO DAILY, (Reported) Duloxetine HCl 30 Mg Capsule.dr, 30 MG PO HS, (Reported) Fluticasone Propionate 16 Gm [place].susp, 2 SPRAYS NS DAILY PRN for CONGESTION, ( Reported) Furosemide 40 Mg Tablet, 40 MG PO BID, (Reported) Hydrocodone/Acetaminophen 1 Each Tablet, 1 TAB PO HS, (Reported) Hydroxyzine HCl 50 Mg Tablet, 50 MG PO BID, (Reported) Insulin Aspart 300 Units/3 Ml Solution, 50 UNITS SQ TIDAC, (Reported) Insulin Detemir 100 Unit/1 Ml Insuln.pen, 100 UNIT SQ BID, (Reported) Losartan Potassium 100 Mg Tablet, 100 MG PO DAILY, (Reported) Multivitamin 1 Each Tablet, 1 TAB PO DAILY, (Reported) Nitrofurantoin Monohyd/M-Cryst 100 Mg Capsule, 1 TAB PO BID Prescribed by: SUHAS VALDES on 09/25/18 1257 [place] 3 Polyunsat Fatty Acids 1,000 Mg Cap, 1,000 MG PO HS, (Reported) Omeprazole 40 Mg Capsule.dr, 40 MG PO DAILY, (Reported) Potassium Chloride 20 Meq Tablet.er, 20 MEQ PO DAILY, (Reported) Pregabalin 150 Mg Capsule, 150 MG PO TID, (Reported) Rosuvastatin Calcium 40 Mg Tablet, 40 MG PO DAILY, (Reported) Sitagliptin Phosphate 100 Mg Tablet, 100 MG PO DAILY, (Reported) Solifenacin Succinate 5 Mg Tablet, 5 MG PO DAILY, (Reported) Tramadol HCl 50 Mg Tablet, 100 MG PO QID PRN for PAIN-MODERATE, (Reported) TAKES 2 (50MG) TABLETS Zolpidem Tartrate 5 Mg Tablet, 5 MG PO HS, (Reported) Patient Home Medication List Home Medication List Reviewed: Yes Review of Systems Review of Systems Constitutional: dizziness; No fever; malaise, weakness EENTM: blurred vision Respiratory: no symptoms reported Cardiovascular: No chest pain Gastrointestinal: No abdominal pain Skin: no symptoms reported Psychiatric/Neurological: Headache; Denies Numbness; Weakness Hematologic/Lymphatic: No Symptoms Reported All Other Systems Reviewed Negative Unless Noted: Yes Past Ihbkolt-Milnld-Zgeywh Hx Patient Social History Alcohol Use: Denies Use Recreational Drug Use: No Smoking Status: Current Someday Smoker Type Used: Cigarettes 2nd Hand Smoke Exposure: No Recent Foreign Travel: No Contact w/Someone Who Travel: No Recent Infectious Disease Expo: No Recent Hopitalizations: No Physical Abuse: No Sexual Abuse: No Mistreated: No Fear: No Immunizations Up To Date Tetanus Booster (TDap): Unknown PED Vaccines UTD: No Date of Pneumonia Vaccine: May 12, 2012 Seasonal Allergies Seasonal Allergies: No Past Medical History Surgeries: Yes Appendectomy, Gallbladder, Hysterectomy Respiratory: Yes COPD Currently Using CPAP: No Currently Using BIPAP: No Cardiac: No High Cholesterol, Hypertension Neurological: No Neuropathy Reproductive Disorders: No (partial hysterectomy of R side. ) Female Reproductive Disorders: Denies Sexually Transmitted Disease: No HIV/AIDS: No Genitourinary: No Kidney Infection, UTI-Chronic Gastrointestinal: No Gastroesophageal Reflux, Pancreatitis Musculoskeletal: No Arthritis Endocrine: No Diabetes, Insulin dep HEENT: No Tinnitis Loss of Vision: Denies Hearing Impairment: Denies Cancer: No Psychosocial: Yes Anxiety, Depression Integumentary: No Blood Disorders: No Adverse Reaction/Blood Tranf: No Family Medical History Alcoholism G8 BROTHER Alzheimer's disease 19 MOTHER Arthritis 19 FATHER 19 MOTHER G8 BROTHER G8 BROTHER G8 BROTHER G8 BROTHER G8 BROTHER G8 SISTER G8 SISTER G8 SISTER G8 SISTER G8 SISTER G8 SISTER Asthma 19 FATHER 19 MOTHER G8 SISTER G8 SISTER Cancer of mouth Cardiovascular disease 19 FATHER 19 MOTHER G8 BROTHER G8 BROTHER G8 SISTER G8 SISTER Completed stroke 19 FATHER G8 SISTER G8 SISTER Dementia G8 BROTHER Diabetes mellitus 19 FATHER 19 MOTHER G8 BROTHER G8 BROTHER G8 BROTHER G8 BROTHER G8 BROTHER G8 SISTER G8 SISTER G8 SISTER G8 SISTER G8 SISTER G8 SISTER Glaucoma 19 MOTHER G8 SISTER G8 SISTER Hypercholesterolemia 19 FATHER 19 MOTHER Hypertension 19 FATHER 19 MOTHER G8 BROTHER G8 BROTHER G8 BROTHER G8 BROTHER G8 BROTHER G8 SISTER G8 SISTER G8 SISTER G8 SISTER G8 SISTER G8 SISTER Myocardial infarction 19 FATHER 19 MOTHER G8 BROTHER G8 BROTHER G8 SISTER G8 SISTER G8 SISTER Osteoporosis G8 SISTER Seizure disorder G8 BROTHER No Family History of: AIDS Abdominal aortic aneurysm [place]'s disease Aphasia Cataracts Colon cancer Congenital disease Congenital heart disease Coronary thrombosis Cystic fibrosis Deafness or hearing loss Drug abuse Dysphasia Fibrocystic disease of breast Gastroenteritis Headache disorder Infertility Kidney disease Neoplasm Parkinson's disease Prostate cancer Psychosocial problem Severe allergy Thyroid disease Tuberculosis Visual disorder Physical Exam Vital Signs Vital Signs - First Documented 10/26/18 23:01 Temp 97.7 Pulse 84 Resp 18 B/P (MAP) 96/50 (65) Pulse Ox 96 O2 Delivery Room Air Capillary Refill : Less Than 3 Seconds Height, Weight, BMI Height: 5'9.00" Weight: 235lbs. 3.0oz. 106.793921ps; 33.3 BMI Method:Stated General Appearance: WD/WN, Mild Distress Eyes: Bilateral Eye Normal Inspection, Bilateral Eye PERRL, Bilateral Eye EOMI HEENT: PERRL/EOMI, Pharynx Normal Neck: Supple Respiratory: No Respiratory Distress, Decreased Breath Sounds Cardiovascular: Regular Rate, Rhythm, No Edema Gastrointestinal: Non Tender, Soft Extremity: Normal Inspection, Normal Range of Motion, Non Tender, No Calf Tenderness Neurologic/Psychiatric: Alert, Oriented x3, No Motor/Sensory Deficits Skin: Normal Color, Warm/Dry Focused Exam Lactate Level 10/26/18 23:27: Lactic Acid Level 1.66 Lactic Acid Level Laboratory Tests Test 10/26/18 23:27 Lactic Acid Level 1.66 MMOL/L (0.50-2.00) Progress/Results/Core Measures Suspected Sepsis Recent Fever Within 48 Hours: No Infection Criteria Present: None New/Unexplained Altered Menta: No Sepsis Screen: No Definite Risk SIRS Temperature:97.7 Pulse: 84 Respiratory Rate: 18 Laboratory Tests 10/26/18 23:27: White Blood Count 13.8H Blood Pressure 96 /50 Mean: 65 10/26/18 23:27: Lactic Acid Level 1.66 Laboratory Tests 10/26/18 23:27: Creatinine 0.99, Platelet Count 340, Total Bilirubin 0.2 Results/Orders Lab Results Laboratory Tests Test 10/26/18 23:27 Range/Units White Blood Count 13.8 H 4.3-11.0 10^3/uL Red Blood Count 4.33 L 4.35-5.85 10^6/uL Hemoglobin 12.4 11.5-16.0 G/DL Hematocrit 38 35-52 % Mean Corpuscular Volume 88 80-99 FL Mean Corpuscular Hemoglobin 29 25-34 PG Mean Corpuscular Hemoglobin Concent 33 32-36 G/DL Red Cell Distribution Width 13.7 10.0-14.5 % Platelet Count 340 130-400 10^3/uL Mean Platelet Volume 11.5 H 7.4-10.4 FL Neutrophils (%) (Auto) 64 42-75 % Lymphocytes (%) (Auto) 26 12-44 % Monocytes (%) (Auto) 8 0-12 % Eosinophils (%) (Auto) 1 0-10 % Basophils (%) (Auto) 1 0-10 % Neutrophils # (Auto) 8.9 H 1.8-7.8 X 10^3 Lymphocytes # (Auto) 3.5 1.0-4.0 X 10^3 Monocytes # (Auto) 1.1 H 0.0-1.0 X 10^3 Eosinophils # (Auto) 0.2 0.0-0.3 10^3/uL Basophils # (Auto) 0.1 0.0-0.1 10^3/uL Sodium Level 131 L 135-145 MMOL/L Potassium Level 3.9 3.6-5.0 MMOL/L Chloride Level 90 L 98-107 MMOL/L Carbon Dioxide Level 25 21-32 MMOL/L Anion Gap 16 H 5-14 MMOL/L Blood Urea Nitrogen 41 H 7-18 MG/DL Creatinine 0.99 0.60-1.30 MG/DL Estimat Glomerular Filtration Rate 58 BUN/Creatinine Ratio 41 Glucose Level 174 H 70-105 MG/DL Lactic Acid Level 1.66 0.50-2.00 MMOL/L Calcium Level 9.8 8.5-10.1 MG/DL Corrected Calcium 10.5 H 8.5-10.1 MG/DL Magnesium Level 2.4 1.8-2.4 MG/DL Total Bilirubin 0.2 0.1-1.0 MG/DL Aspartate Amino Transf (AST/SGOT) 13 5-34 U/L Alanine Aminotransferase (ALT/SGPT) 14 0-55 U/L Alkaline Phosphatase 91 40-136 U/L Troponin T 8 <=10 NG/L Total Protein 7.3 6.4-8.2 GM/DL Albumin 3.1 L 3.2-4.5 GM/DL Lipase 46 8-78 U/L My Orders Orders - DEBO MABRY MD Cbc With Automated Diff (10/26/18 23:05) Comprehensive Metabolic Panel (10/26/18 23:05) Lactic Acid Analyzer (10/26/18 23:05) Magnesium (10/26/18 23:05) Ua Culture If Indicated (10/26/18 23:05) Troponin T (10/26/18 23:05) Lipase (10/26/18 23:05) Ekg Tracing (10/26/18 23:05) Ct Head Wo (10/26/18 23:13) Chest 1 View Ap/Pa Only (10/26/18 23:13) Meclizine Tablet (Antivert Tablet) (10/27/18 00:15) Ns Iv 1000 Ml (Sodium Chloride 0.9%) (10/27/18 00:15) Scopolamine Patch (Transderm-Scop Patch) (10/27/18 00:45) Medications Given in ED Current Medications Medications Dose Ordered Sig/Jose Armando Route Start Time Stop Time Status Last Admin Dose Admin Meclizine HCl 25 mg ONCE ONCE PO 10/27/18 00:15 10/27/18 00:16 DC 10/27/18 00:19 25 MG Vital Signs/I&O 10/26/18 23:01 Temp 97.7 Pulse 84 Resp 18 B/P (MAP) 96/50 (65) Pulse Ox 96 O2 Delivery Room Air Capillary Refill : Less Than 3 Seconds Blood Pressure Mean: 65 Progress Note : Time: 00:43 Progress Note Patient was barely able to sit up and use the bathroom after antvert. She was still very dizzy. I don't believe she will be able to go home because she is such a fall risk. We will need inpatient hospitalization. I spoke with Dr. Valdes who accepted transfer to [facility] ECG Initial ECG Impression Date: Oct 26, 2018 Initial ECG Impression Time: 23:23 Initial ECG Rate: 83 Initial ECG Rhythm: Normal Sinus Initial ECG Intervals: Normal Initial ECG Impression: Nonspecific Changes Departure Communication (Admissions) Time/Spoke to Admitting Phy: 00:[address] Valdes who will admit to [facility] Impression Primary Impression: Vertigo Additional Impressions: Falls Dehydration Disposition: ADMITTED INPATIENT Condition: Stable Admissions Decision to Admit Reason: Admit from ER (General) Decision to Admit/Date: Oct 27, 2018 Time/Decision to Admit Time: 00:46 Departure-Patient Inst. Referrals: RIGOBERTO LYNCH MD (PCP/Family) Primary Care Physician DEBO MABRY MD Oct 26, 2018 23:23
[2018-10-26 23:45] LABS: BASOPHILS # (AUTO) 0.1 10^3/uL (0.0-0.1); BASOPHILS % (AUTO) 1 % (0-10); EOSINOPHILS # (AUTO) 0.2 10^3/uL (0.0-0.3); EOSINOPHILS % (AUTO) 1 % (0-10); HEMATOCRIT 38 % (35-52); HEMOGLOBIN 12.4 G/DL (11.5-16.0); LYMPHOCYTES # (AUTO) 3.5 X 10^3 (1.0-4.0); LYMPHOCYTES % (AUTO) 26 % (12-44); MEAN CORPUSCULAR HEMOGLOBIN 29 PG (25-34); MEAN CORPUSCULAR HGB CONC 33 G/DL (32-36); MEAN CORPUSCULAR VOLUME 88 FL (80-99); MEAN PLATELET VOLUME 11.5 FL (7.4-10.4); MONOCYTES # (AUTO) 1.1 X 10^3 (0.0-1.0); MONOCYTES % (AUTO) 8 % (0-12); NEUTROPHILS # (AUTO) 8.9 X 10^3 (1.8-7.8); NEUTROPHILS % (AUTO) 64 % (42-75); PLATELET COUNT 340 10^3/uL (130-400); RED CELL DISTRIBUTION WIDTH 13.7 % (10.0-14.5); WHITE BLOOD COUNT 13.8 10^3/uL (4.3-11.0)
[2018-10-27] VITALS (9 sets, daily range): BP systolic 108–147; BP diastolic 55–83
[2018-10-27] LABS: ALBUMIN 3.1 GM/DL (3.2-4.5); BILIRUBIN,TOTAL 0.2 MG/DL (0.1-1.0); CALCIUM 9.8 MG/DL (8.5-10.1); CREATININE SERUM 0.99 MG/DL (0.60-1.30); MAGNESIUM 2.4 MG/DL (1.8-2.4); POTASSIUM 3.9 MMOL/L (3.6-5.0); TOTAL PROTEIN 7.3 GM/DL (6.4-8.2)
[2018-10-27] MEDS ORDERED: NS IV 1000 ML 1,000 ML IV SCH (00:15)
[2018-10-27] MEDS ORDERED: MECLIZINE 25 MG (ANTIVERT) TAB PO ONE (00:15)
[2018-10-27] MEDS ORDERED: SCOPOLAMINE 1.5 MG (TRANSDERM-SCOP) PATCH TD ONE (00:45)
--- NOTE | 2018-10-27 07:04 | Diagnostic Imaging Report ---
INDICATION: Dizziness and falls. Single AP view of the chest is obtained with comparison made study of 06/25/2017. FINDINGS: Overall heart size and pulmonary vascularity are within normal limits. There is mild blunting of left costophrenic sulcus which could be due to pleural thickening. No pneumothorax is identified. IMPRESSION: Probable mild left pleural thickening in the basilar region without other evidence of acute abnormality or adverse change. Dictated by: Dictated on workstation # [id number]
--- NOTE | 2018-10-27 07:04 | Diagnostic Imaging Report ---
PROCEDURE: CT head without contrast. TECHNIQUE: Multiple contiguous axial images were obtained through the brain without the use of intravenous contrast. INDICATION: Dizziness and recurrent falls. Comparison is made to study of 06/25/2017. CT HEAD: Multiple contiguous axial CT images of the head were obtained. FINDINGS: Ventricles and sulci are within normal limits for size. There is no intracranial hemorrhage identified. There is no abnormal mass effect or shift of midline structures. IMPRESSION: Unremarkable CT of the head. Dictated by: Dictated on workstation # [id number]
[2018-10-27] MEDS: ACETAMINOPHEN 325 MG TABLET PO PRN ×2 (07:35→15:09)
[2018-10-27] MEDS: NS IV 1000 ML 1,000 ML IV SCH ×2 (09:56→20:05)
[2018-10-27] MEDS: inSUlin ASPART (NovoLOG) 1 UNIT/0.01 ML (CHARGE PER UNIT) SC SCH ×3 (11:31→22:04)
[2018-10-27] MEDS ORDERED: CLIN300C11 PO (11:44)
[2018-10-27] MEDS ORDERED: FLUC40SU2 PO (12:01)
--- NOTE | 2018-10-27 12:01 | NUR ---
SPOKE WITH THE PATIENT ABOUT HER MEDICATIONS. SHE STATES NOTHING HAS CHANGED WITH HER MAINTENANCE MEDS SINCE HER LAST VISIT HOWEVER SHE HAS BEEN PRESCRIBED SOME ANTIBIOTICS RECENTLY. 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 I DID NOT ADD THEM TO THE MED REC AT THIS TIME. SHE FILLED A 2 DAY SUPPLY OF THE FLUCONAZOLE ON THE AND MAEGAN HAD TO ORDER THE REMAINING SUPPLY IN FOR HER, THAT IS STILL READY AT THE PHARMACY, SHE HAS NOT PICKED UP THE REST OF IT YET. I DID ADD THIS TO THE MED REC SINCE SHE DID START IT. SHE FILLED MUPIROCIN CREAM RECENTLY FOR HER NOSE INFECTION BUT SHE STATES SHE HAS BEEN TOLD THAT IS CLEARED UP AND SHE IS NOT CURRENTLY USING IT.
--- NOTE | 2018-10-27 14:15 | NUR ---
Pastoral care visit, pt shared her reason for being admitted and also verbalized her concern that health issues will not be believed. I offered support and listening.
--- NOTE | 2018-10-27 16:17 | History & Physical-Hospitalist ---
History of Present Illness Source: patient Date Seen 10/27/18 Time Seen by a Provider: 16:12 Attending Physician Mayra Valdes MD PCP Johan Teresa MD Referring Physician The patient is a 53-year-old white female who presented to the [facility] emergency room last night with complaints of vertigo and a fall precipitated by this. She was in preparation to be discharged when she told Dr. Man the ER physician that she lived alone and feared her ability to maintain herself alone. He then arrange for her to be admitted here at [facility]. She reports that she is now much less unstable but Date of Admission Oct 27, 2018 at 01:32 Home Medications & Allergies Home Medications Reviewed patient Home Medication Reconciliation performed by pharmacy medication reconciliations two way radio technician and/or nursing. Patients Allergies have been reviewed. Allergies Allergies Coded Allergies influenza virus vaccine, specific (Unverified Allergy, Intermediate, rash, 07/30) aspirin (Unverified Allergy, Unknown, convulsions, 09/23/18) metformin (Verified Adverse Reaction, Intermediate, joint pain, 09/23/18) hydromorphone HCl (Unverified Adverse Reaction, Mild, VOMITING, 01/06/11) Past Kkdtcec-Hotynu-Ttinsg Hx Patient Social History Alcohol Use: Denies Use Recreational Drug Use: No Smoking Status: Current Someday Smoker Type Used: Cigarettes 2nd Hand Smoke Exposure: No Physical Abuse Screen: No Sexual Abuse: No Recent Foreign Travel: No Contact w/other who traveled: No Recent Hopitalizations: No Recent Infectious Disease Expo: No Immunizations Up To Date Tetanus Booster (TDap): Unknown Pediatric: No Date of Pneumonia Vaccine: May 12, 2012 Seasonal Allergies Seasonal Allergies: No Past Medical History Surgeries: Appendectomy, Gallbladder, Hysterectomy Respiratory: COPD, Pneumonia Currently Using CPAP: No Currently Using BIPAP: No Cardiac: High Cholesterol, Hypertension Neurological: Neuropathy : No Reproductive: No (partial hysterectomy of R side. ) Sexually Transmitted Disease: No HIV/AIDS: No Female Reproductive Disorders: Denies Genitourinary: Kidney Infection, UTI-Chronic Gastrointestinal: Gastroesophageal Reflux, Pancreatitis, Chronic Diarrhea Musculoskeletal: Arthritis Endocrine: Diabetes, Insulin dep Are Your Blood Sugars Over 250: Yes HEENT: Tinnitis Loss of Vision: Bilateral Hearing Impairment: Denies Psychosocial: Anxiety, Depression History of Blood Disorders: No Adverse Reaction to Blood Carlson: No Family History Alcoholism G8 BROTHER Alzheimer's disease 19 MOTHER Arthritis 19 FATHER 19 MOTHER G8 BROTHER G8 BROTHER G8 BROTHER G8 BROTHER G8 BROTHER G8 SISTER G8 SISTER G8 SISTER G8 SISTER G8 SISTER G8 SISTER Asthma 19 FATHER 19 MOTHER G8 SISTER G8 SISTER Cancer of mouth Cardiovascular disease 19 FATHER 19 MOTHER G8 BROTHER G8 BROTHER G8 SISTER G8 SISTER Completed stroke 19 FATHER G8 SISTER G8 SISTER Dementia G8 BROTHER Diabetes mellitus 19 FATHER 19 MOTHER G8 BROTHER G8 BROTHER G8 BROTHER G8 BROTHER G8 BROTHER G8 SISTER G8 SISTER G8 SISTER G8 SISTER G8 SISTER G8 SISTER Glaucoma 19 MOTHER G8 SISTER G8 SISTER Hypercholesterolemia 19 FATHER 19 MOTHER Hypertension 19 FATHER 19 MOTHER G8 BROTHER G8 BROTHER G8 BROTHER G8 BROTHER G8 BROTHER G8 SISTER G8 SISTER G8 SISTER G8 SISTER G8 SISTER G8 SISTER Myocardial infarction 19 FATHER 19 MOTHER G8 BROTHER G8 BROTHER G8 SISTER G8 SISTER G8 SISTER Osteoporosis G8 SISTER Seizure disorder G8 BROTHER No Family History of: AIDS Abdominal aortic aneurysm Marvel's disease Aphasia Cataracts Colon cancer Congenital disease Congenital heart disease Coronary thrombosis Cystic fibrosis Deafness or hearing loss Drug abuse Dysphasia Fibrocystic disease of breast Gastroenteritis Headache disorder Infertility Kidney disease Neoplasm Parkinson's disease Prostate cancer Psychosocial problem Severe allergy Thyroid disease Tuberculosis Visual disorder Review of Systems Constitutional: see HPI EENTM: blurred vision Respiratory: no symptoms reported Cardiovascular: no symptoms reported Gastrointestinal: no symptoms reported Genitourinary: no symptoms reported Musculoskeletal: other Skin: no symptoms reported Psychiatric/Neurological: No Symptoms Reported Physical Exam Physical Exam Vital Signs Vital Signs - First Documented 10/26/18 23:01 Temp 97.7 Pulse 84 Resp 18 B/P (MAP) 96/50 (65) Pulse Ox 96 O2 Delivery Room Air Capillary Refill : Less Than 3 Seconds Height, Weight, BMI Height: 5'9.00" Weight: 235lbs. 0.0oz. 106.994895nl; 34.7 BMI Method:Stated General Appearance: Mild Distress, Other (long list of complaints) HEENT: Normal ENT Inspection, Other (and no nystagmus to ocular range of motion.) Neck: Full Range of Motion, Normal Inspection, Non Tender Respiratory: Chest Non Tender, Lungs Clear, Normal Breath Sounds, No Accessory Muscle Use, No Respiratory Distress Cardiovascular: Regular Rate, Rhythm, No Edema, No Gallop, No JVD, No Murmur, Normal Peripheral Pulses Gastrointestinal: Normal Bowel Sounds, No Organomegaly Back: Normal Inspection Extremity: Normal Capillary Refill, Normal Inspection, Normal Range of Motion, Non Tender, No Calf Tenderness, No Pedal Edema Neurologic/Psychiatric: Alert, Oriented x3, No Motor/Sensory Deficits, Normal Mood/Affect Skin: Normal Color, Warm/Dry Lymphatic: No Adenopathy Results Results/Procedures Labs Laboratory Tests 10/26/18 23:27 Patient resulted labs reviewed. Assessment/Plan Admission Diagnosis Admission Status: Observation Assessment and Plan Vertigo. 2.fall at home. Plan: Meclizine and observation Clinical Quality Measures DVT/VTE Risk/Contraindication: Risk Factor Score Per Nursin RFS Level Per Nursing on Admit: 3=High HONEY SEPULVEDA MD Oct 27, 2018 16:17
[2018-10-27] MEDS ORDERED: MECL-106 PO (16:20)
[2018-10-28] MEDS: NS IV 1000 ML 1,000 ML IV SCH ×2 (02:33→06:21)
[2018-10-28 04:15] VITALS: BP 137/64
[2018-10-28] MEDS: inSUlin ASPART (NovoLOG) 1 UNIT/0.01 ML (CHARGE PER UNIT) SC SCH (05:22)
[2018-10-28 08:00] VITALS: BP 135/63
--- NOTE | 2018-10-28 10:16 | Progress Note-Hospitalist ---
Progress Note Progress Notes/Assess & Plan Date Seen 10/28/18 Time Seen by Provider: 10:14 Assessment & Plan The patient has arranged transportation for this morning. She also feels much better with less pain this morning. Physical exam: There is no SCOWLING today. Lungs are clear to auscultation. CV is regular. Impression: Vertigo resolved. Plan: Discharge see discharge sequence for medications and activities Focused Exam Lactate Level 10/26/18 23:27: Lactic Acid Level 1.66 HONEY SEPULVEDA MD Oct 28, 2018 10:16
--- NOTE | 2018-10-28 10:20 | Discharge Inst-Simple/Standard ---
Discharge Inst-Standard Discharge Medications New, Converted or Re-Newed RX: Transmitted to Pharmacy Patient Instructions/Follow Up Plan of Care/Instructions/FU: Resume usual activities and medications. Take meclizine for dizziness 3 times daily for the next couple of days. You may then taper it off as tolerated. Activity as Tolerated: Yes Discharge Diet: No Restrictions HONEY SEPULVEDA MD Oct 28, 2018 10:20
[2018-10-30] MEDS ORDERED: SCOPOLAMINE 1.5 MG (TRANSDERM-SCOP) PATCH TOP SCH
== END 2018-10-28 12:10 | disposition home or self-care (01) ==
LOC: EDUNIT# 22:56 → ER FS 23:01 → 4TH 10-27 01:32
PROVIDERS: ADMIT Family Medicine; ATTEND Family Medicine
DX: R42 Dizziness and giddiness (principal); J44.9 Chronic obstructive pulmonary disease, unspecified; E86.0 Dehydration; E78.00 Pure hypercholesterolemia, unspecified; I10 Essential (primary) hypertension; E11.40 Type 2 diabetes mellitus with diabetic neuropathy, unspecified; K21.9 Gastro-esophageal reflux disease without esophagitis; K52.9 Noninfective gastroenteritis and colitis, unspecified; M19.91 Primary osteoarthritis, unspecified site; F41.9 Anxiety disorder, unspecified; F32.9 Major depressive disorder, single episode, unspecified; F17.210 Nicotine dependence, cigarettes, uncomplicated; Z91.81 History of falling; Z79.4 Long term (current) use of insulin
CPT/HCPCS: 36415; 70450; 71045; 80053; 82962; 83605; 83690; 83735; 84484; 85025; 93005; 96360; G0378

== ENCOUNTER 2018-12-18 12:43 | Emergency (ER) | payer MEDICARE, MEDICAID ==
[~2018-12-18] VITALS: Ht 175.3 cm; Wt 115.2 kg
[~2018-12-18 12:43] MED LIST changes: +CLIN300C11 PO; +FLUC40SU2 PO; +MECL-106 PO
[2018-12-18] MEDS ORDERED: LIDOCAINE 1% INJ 20 ML 20 ML VIAL ONE (12:48)
--- NOTE | 2018-12-18 12:56 | ED Fall/Injury ---
General Stated Complaint: LT TOE LAC Source: patient Exam Limitations: no limitations History of Present Illness Date Seen by Provider: December 18, 2018 Time Seen by Provider: 12:42 Initial Comments The patient presents to ER by private conveyance with chief complaint that just prior to arrival she had a fall and hyperextended her fifth digit of the left foot causing a small laceration and some bleeding. She is on Eliquis for history of pulmonary embolisms and clotting disorder. She says she did not pass out but she did get dizzy just prior to the fall. She began getting dizzy ever since she started taking the antibiotics for her ear infection. This happened the last time she had an ear infection and use this antibiotic all of she did not fall just dizziness. She does not have a history of vertigo or dizziness. She is diabetic and she is up-to-date on her tetanus vaccine. While she did not lose consciousness she did strike the back of her head and has a small knot there that is tender. Allergies and Home Medications Allergies Coded Allergies: influenza virus vaccine, specific (Unverified Allergy, Intermediate, rash , 09/23/18) aspirin (Unverified Allergy, Unknown, convulsions, 09/23/18) metformin (Verified Adverse Reaction, Intermediate, joint pain, 09/23/18) hydromorphone HCl (Unverified Adverse Reaction, Mild, VOMITING, 01/06/11) Home Medications Albuterol Sulfate 1 Puff Puff, 2 PUFF IH QID PRN for SHORTNESS OF BREATH, ( Reported) Amitriptyline HCl 50 Mg Tablet, 50 MG PO HS, (Reported) Amlodipine Besylate 2.5 Mg Tablet, 2.5 MG PO 1200, (Reported) Apixaban 5 Mg Tablet, 5 MG PO BID, (Reported) Cranberry Conc/Ascorbic Acid 1 Each Capsule, 1 CAP PO HS, (Reported) Cyclobenzaprine HCl 10 Mg Tablet, 10 MG PO TID, (Reported) Dapagliflozin Propanediol 10 Mg Tablet, 10 MG PO DAILY, (Reported) Duloxetine HCl 30 Mg Capsule.dr, 30 MG PO HS, (Reported) Fluconazole 40 Mg/1 Ml Susp.recon, 5 ML PO QID, (Reported) 11 DAY SUPPLY FILLED 10-23-18 Fluticasone Propionate 16 Gm [place].susp, 2 SPRAYS NS DAILY PRN for CONGESTION, ( Reported) Furosemide 40 Mg Tablet, 40 MG PO BID, (Reported) Hydrocodone/Acetaminophen 1 Each Tablet, 1 TAB PO HS, (Reported) Hydroxyzine HCl 50 Mg Tablet, 50 MG PO BID, (Reported) Insulin Aspart 300 Units/3 Ml Solution, 50 UNITS SQ TIDAC, (Reported) Insulin Detemir 100 Unit/1 Ml Insuln.pen, 100 UNIT SQ BID, (Reported) Losartan Potassium 100 Mg Tablet, 100 MG PO DAILY, (Reported) Meclizine HCl 25 Mg Tablet, 25 MG PO 3 TIMES A DAY Prescribed by: HONEY SEPULVEDA on 10/27/18 1620 Multivitamin 1 Each Tablet, 1 TAB PO DAILY, (Reported) [place] 3 Polyunsat Fatty Acids 1,000 Mg Cap, 1,000 MG PO HS, (Reported) Omeprazole 40 Mg Capsule.dr, 40 MG PO DAILY, (Reported) Potassium Chloride 20 Meq Tablet.er, 20 MEQ PO DAILY, (Reported) Pregabalin 150 Mg Capsule, 150 MG PO TID, (Reported) Rosuvastatin Calcium 40 Mg Tablet, 40 MG PO DAILY, (Reported) Sitagliptin Phosphate 100 Mg Tablet, 100 MG PO DAILY, (Reported) Solifenacin Succinate 5 Mg Tablet, 5 MG PO DAILY, (Reported) Sulfamethoxazole/Trimethoprim 1 Each Tablet, 1 EACH PO BID Prescribed by: FEMI BRUMFIELD on 12/18/18 1331 Tramadol HCl 50 Mg Tablet, 100 MG PO QID PRN for PAIN-MODERATE, (Reported) TAKES 2 (50MG) TABLETS Zolpidem Tartrate 5 Mg Tablet, 5 MG PO HS, (Reported) Patient Home Medication List Home Medication List Reviewed: Yes Review of Systems Review of Systems Constitutional: No chills, No diaphoresis Eyes: Denies Blindness, Denies Blurred Vision Ears, Nose, Mouth, Throat: denies ear pain, denies ear discharge Respiratory: No cough, No short of breath Cardiovascular: No chest pain, No edema Gastrointestinal: No diarrhea, No nausea Genitourinary: No discharge, No dysuria Past Tfhijgw-Rpvtgd-Tulnlc Hx Patient Social History Alcohol Use: Denies Use Recreational Drug Use: No Smoking Status: Current Everyday Smoker Type Used: Cigarettes 2nd Hand Smoke Exposure: No Recent Hopitalizations: No Immunizations Up To Date Tetanus Booster (TDap): Unknown PED Vaccines UTD: No Date of Pneumonia Vaccine: May 12, 2012 Seasonal Allergies Seasonal Allergies: No Past Medical History Surgeries: Yes Appendectomy, Gallbladder, Hysterectomy Respiratory: Yes COPD Currently Using CPAP: No Currently Using BIPAP: No Cardiac: Yes High Cholesterol, Hypertension Neurological: No Neuropathy Reproductive Disorders: No (partial hysterectomy of R side. ) Female Reproductive Disorders: Denies Sexually Transmitted Disease: No HIV/AIDS: No Genitourinary: No Kidney Infection, UTI-Chronic Gastrointestinal: Yes Gastroesophageal Reflux, Pancreatitis, Chronic Diarrhea Musculoskeletal: No Arthritis Endocrine: No Diabetes, Insulin dep HEENT: No Tinnitis Loss of Vision: Bilateral Hearing Impairment: Denies Cancer: No Psychosocial: Yes Anxiety, Depression Integumentary: No Blood Disorders: No Adverse Reaction/Blood Tranf: No Family Medical History Alcoholism G8 BROTHER Alzheimer's disease 19 MOTHER Arthritis 19 FATHER 19 MOTHER G8 BROTHER G8 BROTHER G8 BROTHER G8 BROTHER G8 BROTHER G8 SISTER G8 SISTER G8 SISTER G8 SISTER G8 SISTER G8 SISTER Asthma 19 FATHER 19 MOTHER G8 SISTER G8 SISTER Cancer of mouth Cardiovascular disease 19 FATHER 19 MOTHER G8 BROTHER G8 BROTHER G8 SISTER G8 SISTER Completed stroke 19 FATHER G8 SISTER G8 SISTER Dementia G8 BROTHER Diabetes mellitus 19 FATHER 19 MOTHER G8 BROTHER G8 BROTHER G8 BROTHER G8 BROTHER G8 BROTHER G8 SISTER G8 SISTER G8 SISTER G8 SISTER G8 SISTER G8 SISTER Glaucoma 19 MOTHER G8 SISTER G8 SISTER Hypercholesterolemia 19 FATHER 19 MOTHER Hypertension 19 FATHER 19 MOTHER G8 BROTHER G8 BROTHER G8 BROTHER G8 BROTHER G8 BROTHER G8 SISTER G8 SISTER G8 SISTER G8 SISTER G8 SISTER G8 SISTER Myocardial infarction 19 FATHER 19 MOTHER G8 BROTHER G8 BROTHER G8 SISTER G8 SISTER G8 SISTER Osteoporosis G8 SISTER Seizure disorder G8 BROTHER No Family History of: AIDS Abdominal aortic aneurysm [place]'s disease Aphasia Cataracts Colon cancer Congenital disease Congenital heart disease Coronary thrombosis Cystic fibrosis Deafness or hearing loss Drug abuse Dysphasia Fibrocystic disease of breast Gastroenteritis Headache disorder Infertility Kidney disease Neoplasm Parkinson's disease Prostate cancer Psychosocial problem Severe allergy Thyroid disease Tuberculosis Visual disorder Physical Exam Vital Signs Vital Signs - First Documented 12/18/18 12:44 Temp 96.9 Pulse 92 Resp 20 B/P (MAP) 122/59 (80) Pulse Ox 97 O2 Delivery Room Air Capillary Refill : Height, Weight, BMI Height: 5'9.00" Weight: 235lbs. 0.0oz. 106.423102nz; 34.7 BMI Method:Stated General Appearance: WD/WN, no apparent distress, obese HEENT: PERRL/EOMI, normal ENT inspection, pharynx normal, other (negative for raccoon eyes or Wells sign) Neck: non-tender, full range of motion, normal inspection Cardiovascular: normal peripheral pulses, regular rate, rhythm Respiratory: no respiratory distress, no accessory muscle use Peripheral Pulses: 2+ Dorsalis Pedis (R), 2+ Left Dors-Pedis (L) Extremities: normal range of motion (all 5 digits move appropriately), normal capillary refill, other (2 and half centimeter laceration at the dorsal base of the left foot fifth digit) Neurologic/Psychiatric: no motor/sensory deficits, alert, normal mood/affect, oriented x 3 Skin: normal color, warm/dry Tereza Coma Score Best Eye Response: (4) Open Spontaneously Best Verbal Response: (5) Oriented Best Motor Response: (6) Obeys Commands Tereza Total: 15 Procedures/Interventions Wound Location: Lower Extremities Other Wound Location Left foot fifth toe dorsal side Wound Length (cm): 2.5 Wound's Depth, Shape: linear, sub Q Wound Explored: no foreign body removed Irrigated w/ Saline (ccs): 200 Betadine Prep?: Yes (and chlorhexidine) Anesthesia: 1% Lidocaine Volume Anesthetic (ccs): 3 Wound Debrided: minimal Suture: Ethlion (nylon) Suture Size: 4-0 Number of Sutures: 5 Progress Patient's foot and wound were thoroughly cleaned using chlorhexidine and sterile saline. We then put in a digital block at the base of the fifth digit left foot. The patient was already fairly numb from her peripheral neuropathy. We then explored the wound flushed it and gently debrided using cotton gauze but we did not get any dirt out of the wound itself. We then reapproximated the skin edges using 5 simple interrupted sutures of 4-0 nylon. Wound was hemostatic , cleaned dry and dressed. Patient tolerated the procedure well. Progress/Results/Core Measures Results/Orders Lab Results Laboratory Tests Test 12/18/18 13:01 Range/Units Glucometer 349 H 70-110 MG/DL My Orders Orders - FEMI BRUMFIELD Sulfamethoxazole/Trimet Ds Tab (Bactrim (12/18/18 13:00) Lidocaine 1% Inj 20 Ml (Xylocaine 1% Inj (12/18/18 13:00) Lidocaine 1% Inj 20 Ml (Xylocaine 1% Inj (12/18/18 12:48) Accucheck Stat ONCE (12/18/18 12:56) Ct Head/Cervical Spine Wo (12/18/18 12:56) Toe(S) (12/18/18 13:22) Medications Given in ED Current Medications Medications Dose Ordered Sig/Jose Armando Route Start Time Stop Time Status Last Admin Dose Admin Lidocaine HCl 20 ml ONCE ONCE INJ 12/18/18 13:00 12/18/18 13:01 DC 12/18/18 13:02 20 ML Trimethoprim/ Sulfamethoxazole 1 ea ONCE ONCE PO 12/18/18 13:00 12/18/18 13:01 DC 12/18/18 12:59 1 EA Vital Signs/I&O 12/18/18 12:44 Temp 96.9 Pulse 92 Resp 20 B/P (MAP) 122/59 (80) Pulse Ox 97 O2 Delivery Room Air Progress Progress Note : Time: 12:55 Progress Note Bactrim, CT of the head and Accu-Chek. Plan to stitch her toe back together and heal by primary intent after we thoroughly clean it. Patient blood sugar is 349. We explained to her that is probably elevated because of her ear infection. She has declined to continue her ear antibiotics but her ears are much improved. Plan to Put her on Bactrim and have her follow- up with primary care. We have demonstrated appropriate wound cleaning and return precautions. Diagnostic Imaging Diagonstic Imaging: CT (c/o) Plain Films/CT/US/NM/MRI: c-spine, head Comments No acute calvarial fracture nor C-spine fracture, subluxation or misalignment. No intracranial hemorrhage, mass effect, tumor or midline shift. Reviewed: Reviewed by Me Diagonstic Imaging: Xray Plain Films/CT/US/NM/MRI: other (toes) Comments No acute osseous fracture. Reviewed: Reviewed by Me Departure Impression Primary Impression: Fall Qualified Codes: W19.XXXA - Unspecified fall, initial encounter Additional Impressions: Laceration of toe of left foot without damage to nail Qualified Codes: S91.115A - Laceration without foreign body of left lesser toe (s) without damage to nail, initial encounter Traumatic hematoma of occiput Qualified Codes: S00.83XA - Contusion of other part of head, initial encounter Disposition: 01 HOME, SELF-CARE Condition: Improved Departure-Patient Inst. Decision time for Depature: 13:47 Patient Instructions: Laceration Repair With Stitches (DC) Add. Discharge Instructions: The sutures will need to come out in about 10 days. Follow-up with primary care or you may return to the ER to have them removed. Keep the wound clean with soap and water and dried thoroughly and then replaced the dressing at least daily or as often as it becomes soiled. Do not use peroxide alcohol or iodine to clean the wound. Regular soap and water is sufficient. cold rolling supervisor the Bactrim and take one tablet twice a day for the next 5 days. If you notice redness swelling discharge or fever then you should be seen by a physician that day. Tylenol and/or Motrin as necessary for pain. Elevate the foot above the level of your heart if you have swelling. You may machine pecan picker some probiotics and take one capsule twice a day while you're on antibiotics to reduce the risk of diarrhea associated with antibiotics in general. Your blood sugars may be very high because of your ear infection. Remember to use your insulin when you get home. Scripts Sulfamethoxazole/Trimethoprim (Bactrim Ds Tablet) 1 Each Tablet 1 EACH PO BID for 5 Days, #10 TAB 0 Refills Prov: FEMI BRUMFIELD 12/18/18 FEMI BRUMFIELD December 18, 2018 12:56
[2018-12-18] MEDS ORDERED: LIDOCAINE 1% INJ 20 ML 20 ML VIAL INJ ONE (13:00)
[2018-12-18] MEDS ORDERED: TRIM/SULFAMETH 160/800 (SEPTRA DS) TAB PO ONE (13:00)
[2018-12-18] MEDS ORDERED: SULF1TAB35 PO (13:31)
--- NOTE | 2018-12-18 13:48 | Diagnostic Imaging Report ---
PROCEDURE: CT head and CT cervical spine without contrast. TECHNIQUE: Multiple contiguous axial images were obtained through the brain and cervical spine without the use of intravenous contrast. Sagittal and coronal reformations through the cervical spine were then performed. Auto Exposure Controls were utilized during the CT exam to meet ALARA standards for radiation dose reduction. INDICATION: Dizziness and recent fall. COMPARISON: Correlation is made with prior head CT from 10/26/2018. CT HEAD: The ventricles and sulci are within normal limits. No sulcal effacement or midline shift is identified. No acute intra-axial or extra-axial hemorrhage is detected. Cisterns are patent. Visualized paranasal sinuses are clear. IMPRESSION: No acute intracranial process is detected. CT CERVICAL SPINE: There is straightening of the normal cervical lordotic curvature. Minimal retrolisthesis of C5 on C6 is noted. No fractures are seen. The prevertebral tissues are within normal limits. The odontoid is intact. IMPRESSION: No acute bony abnormality is detected. Dictated by: Dictated on workstation # [id number]
[2018-12-18 14:01] VITALS: BP 96/36
--- NOTE | 2018-12-18 14:22 | Diagnostic Imaging Report ---
INDICATION: Fall, pain. COMPARISON: February 21, 2012. TECHNIQUE: Three radiographs of the left toes dated December 18, 2018. FINDINGS: Mild cortical irregularity is identified associated with the lateral base of the second digit proximal phalanx. No additional fracture. No dislocation. Lisfranc joint is well aligned. Mild scattered degenerative changes. No suspicious radiopaque foreign body. IMPRESSION: Mild cortical irregularity involving the lateral base of the second digit proximal phalanx. Although this may be degenerative in nature, a nondisplaced fracture may be present. Recommend correlation for focal pain involving the base of the second toe. No additional fracture, mild scattered degenerative changes. Report given to Dr. Brennan at 2:21 p.m. 12/18/2018/cb Dictated by: Dictated on workstation # [id number]
[2018-12-22] MEDS ORDERED: TIOT4MIS2 INH (10:13)
[2018-12-22] MEDS ORDERED: AMOX-358 PO (13:34)
== END 2018-12-18 14:01 | disposition home or self-care (01) ==
LOC: EDUNIT# 12:43 → ER FS 12:44
DX: S91.115A Laceration without foreign body of left lesser toe(s) without damage to nail, initial encounter (principal); S00.03XA Contusion of scalp, initial encounter; E78.00 Pure hypercholesterolemia, unspecified; I10 Essential (primary) hypertension; J44.9 Chronic obstructive pulmonary disease, unspecified; E11.40 Type 2 diabetes mellitus with diabetic neuropathy, unspecified; K21.9 Gastro-esophageal reflux disease without esophagitis; F41.9 Anxiety disorder, unspecified; F32.9 Major depressive disorder, single episode, unspecified; D68.9 Coagulation defect, unspecified; R40.2142 Coma scale, eyes open, spontaneous, at arrival to emergency department; R40.2252 Coma scale, best verbal response, oriented, at arrival to emergency department; R40.2362 Coma scale, best motor response, obeys commands, at arrival to emergency department; F17.210 Nicotine dependence, cigarettes, uncomplicated; Z90.49 Acquired absence of other specified parts of digestive tract; Z87.19 Personal history of other diseases of the digestive system; Z82.49 Family history of ischemic heart disease and other diseases of the circulatory system; Z80.0 Family history of malignant neoplasm of digestive organs; Z87.440 Personal history of urinary (tract) infections; Z90.710 Acquired absence of both cervix and uterus; Z88.7 Allergy status to serum and vaccine; Z88.6 Allergy status to analgesic agent; Z88.8 Allergy status to other drugs, medicaments and biological substances; Z79.51 Long term (current) use of inhaled steroids; Z79.4 Long term (current) use of insulin; Z79.01 Long term (current) use of anticoagulants; Z86.711 Personal history of pulmonary embolism; W19.XXXA Unspecified fall, initial encounter; X50.1XXA Overexertion from prolonged static or awkward postures, initial encounter
CPT/HCPCS: 12001; 64450; 70450; 72125; 73660; 82962

== ENCOUNTER 2018-12-21 17:22 | Inpatient (IN) | payer MEDICARE, MEDICAID | END 2018-12-22 14:15 | disposition home or self-care (01) | LOC: ER 17:22 → ICU 20:59 ==

== ENCOUNTER → 2019-01-26 | Outpatient (CLI) | payer MEDICARE, MEDICAID ==
[~2019-01-26] MED LIST changes: +SULF1TAB35 PO; +TIOT4MIS2 INH
--- NOTE | 2019-01-26 16:50 | Diagnostic Imaging Report ---
INDICATION: Cough and wheezing. COMPARISON: 12/21/2018. FINDINGS: Bibasilar interstitial opacities have not changed. No pleural effusion or pneumothorax. Unchanged cardiomegaly. IMPRESSION: Stable exam since 12/21/2018 with cardiomegaly and basilar interstitial opacities. This may relate to chronic areas of scar or interstitial pulmonary edema in the acute setting. Dictated by: Dictated on workstation # [id number]
== END ==
LOC: RAD FS 16:27
PROVIDERS: ATTEND Nurse Practitioner Family
DX: I51.7 Cardiomegaly (principal); R05 Cough; R06.2 Wheezing
CPT/HCPCS: 71046

== ENCOUNTER 2019-03-03 10:36 | Emergency (ER) | payer MEDICARE, MEDICAID ==
[~2019-03-03] VITALS: Ht 175.3 cm; Wt 114.8 kg
--- OUTSIDE RECORDS SUMMARY | 2019-03-03 10:41 | XMS REPORT | Clinical Summary ---
Author Author [facility] Organization [facility] Address Unknown Phone Unavailable Care Team Providers Care Flow Manager Name Role Phone PCP Unavailable Allergies Not on File Medications Not on file Active Problems Not on file Social History Date Tobacco Use Types Packs/Day Years Used Never Assessed Sex Assigned at Date Recorded Not on file Industry Job Start Date Occupation Not on file Not on file Not on file Travel End Travel History Travel Start No recent travel history available. Last Filed Vital Signs Not on file Plan of Treatment Not on file Results Not on filefrom Last 3 Months
--- OUTSIDE RECORDS SUMMARY | 2019-03-03 10:42 | XMS REPORT | Encounter Summary ---
Author Author [facility] Organization [facility] Address Unknown Phone Unavailable Care Team Providers Care Riverboat Captain Name Role Phone PCP Unavailable Encounter Details Care Team Description Date Type Department Osvaldo Rao MD [address] [place] [address] [phone] Manolo Tamayo MD [address] [place] [address] [phone] Syncope and collapse 08/24/2013 [facility] Encounter [address] [place] [address] Social History Date Tobacco Use Types Packs/Day Years Used Never Assessed Sex Assigned at Date Recorded Not on file Industry Job Start Date Occupation Not on file Not on file Not on file Travel End Travel History Travel Start No recent travel history available. documented as of this encounter Discharge Summaries * Osvaldo Rao MD - 10/08/2013 3:34 PM TRUCK CRANE OPERATOR REPORT Name: MARYANNE ROCK Date of : 1965 Attending Physician: Osvaldo Rao MD Date of Admission: 08/24/2013 Date of Discharge: 08/24/2013 DISCHARGE DIAGNOSES: 1. Syncope. 2. Uncontrolled type 2 diabetes mellitus. 3. History of noncompliance with medical therapy. 4. Hypertension. 5. Weight loss reported per patient. 6. Dyslipidemia. 7. Asthma. HOSPITAL COURSE: The patient is a 48-year-old female who was admitted following a witnessed episode of syncope that probably lasted for about 1-2 minutes and then resolved. The patient did report some subjective weakness on the left side, but also states that she probably has had that for a couple of days. The patient is a very poor historian and has not been able to provide accurate information. She reports having some upper respiratory symptoms over the past 3-4 days and some hoarseness of voice. She stopped taking insulin a few months ago as she could not afford it. She has also been under a tremendous amount of emotional stress lately as her is in critical condition in ICU. She had some chest discomfort at the time of presentation, which has completely resolved. A CT scan of her head done in the emergency department did not reveal any acute abnormality. CT angiogram of her head and neck with perfusion study were also within normal limits. A venous duplex study of both lower extremities does not show any deep venous thrombosis. Influenza antigen was negative. We also performed MRI of head, which does not show any evidence of acute stroke or any acute neurological event. Her echocardiogram is within normal limits with normal LV function and no significant valvular abnormalities. Her left ventricular ejection fraction is 60%. Her TSH is 1.16, which is normal. Her lipid profile shows total cholesterol of 167, triglycerides of 477, HDL of 24 and total cholesterol to HDL ratio of 7. The patient was strongly counseled about the importance of following a diet as well as compliance with medical treatment. The patient's syncope was likely related to stress and possibly some hypovolemia from inadequate oral intake and being on a loop diuretic, which I will discontinue at this point. I have advised the patient to seek a primary care physician and pursue aggressive treatment of all her medical conditions. Please attach discharge medication list to this dictation. DISCHARGE MEDICATIONS: Electronically generated summary for 1. ALBUTEROL INHL 90 mcg Every 6 hours PRN Take 2 puffs as needed for shortness of breath 2. AMITRIPTYLINE ORAL 75 mg Bedtime 3. CYCLOBENZAPRINE ORAL 10 mg 3 times per day PRN 4. FLONASE NASL 2 spray Daily 5. GABAPENTIN ORAL 300 mg 2 times per day 6. GLIPIZIDE ORAL 5 mg 2 times per day 7. MELOXICAM ORAL 15 mg Daily 8. METFORMIN ORAL 1000 mg Take twice a day with meals 9. NYSTATIN TOP 2 times per day Apply to affected area 10. OMEGA-3 FISH OIL ORAL 1000 mg 2 times per day 11. PANTOPRAZOLE ORAL 40 mg Daily 12. PAXIL ORAL 20 mg Daily 13. PRAVASTATIN ORAL 20 mg Bedtime Osvaldo Rao MD [id number] K CRANE OPERATOR documented in this encounter H&P Notes * Osvaldo Rao MD - 10/08/2013 3:34 PM TRUCK CRANE OPERATOR REPORT Name: MARYANNE ROCK Date of : 1965 Attending Physician: Date of Admission: 08/24/2013 01:23:00 PRIMARY CARE PHYSICIAN: Shira Davenport in [place]. CHIEF COMPLAINT: Left-sided weakness, possible syncopal event. HISTORY OF PRESENT ILLNESS: Mrs. Rock is a 48-year-old female who is left-handed, who presented to [facility] Emergency Department after she had a possible syncopal event while visiting her who is currently hospitalized in the ICU with a grave illness. The patient reports that she and her and grandson all became sick the same time on Saturday. She began getting hoarse. She had a cough, nasal discharge and right ear pain. She was diagnosed with an upper respiratory infection and started on antibiotics. She has not felt well since Saturday. She reports she did have fever for a few days; however, this resolved. For the last 2 days she reports left arm and leg weakness that has been there for several days. She notes that she has chronic numbness and tingling in both her feet and hands. She reports she chronically her balance is off; however, has been worse for the last day. She also notes that she had an episode of nausea and vomiting on Saturday as well as diarrhea when her illness began on Saturday only. She was going to the bathroom yesterday evening. She urinated and when she got up from the toilet and washed her hands she did not feel well. She was walking back into the room when she told a family member that she did not feel well. They helped her sit down in a chair and that is the last thing she remembers until she was in the emergency department. She was told that she had a syncopal event. She reports that she was lightheaded. She also reports a pressure in her chest as well as slight shortness of breath. Additionally, the patient reports she has intermittent dizzy spells, for years. She has been having chest pain with walking and activity that is relieved with rest over the last week. She also has chronic dyspnea on exertion and lower extremity edema for the last 8-9 months. In the ER she was found to have an NIH of 7. She was admitted on the stroke pathway. She underwent a CT scan of her head which did not show any acute abnormality. She underwent a CT head and perfusion, CT angiogram neck, are currently pending. There was some concern if she might already have a pontine stroke on the perfusion studies. She is going for MRI today. She reports that she has history of a TIA in the past; however, no prior history of stroke. REVIEW OF SYSTEMS: Patient reports that she has lost 68 pounds in the last 4 months secondary to severe stress. She falls frequently and admits to 3 falls in the last 6 months. She attributes the falls to her neuropathy. She denies any problems with her vision. She has had a weak voice for the last 2 months and hoarseness over the last several days. She admits to a chronic cough with green sputum over the last 2 months. She denies any abdominal pain. There has been no heartburn. She reports occasional dysuria and her urine is frequently dark. She also has urinary frequency. She has chronic left shoulder and arm pain. She has significant depression and anxiety and has been under many stressful events most recently. All else negative in 11-point review of systems. PAST MEDICAL HISTORY: Includes: 1. Insulin-dependent type 2 diabetes mellitus, poorly controlled with complications of peripheral neuropathy. 2. Dyslipidemia. 3. Hypertension. 4. Depression. 5. History of TIA in 2012. 6. Rheumatoid arthritis. 7. Asthma. 8. Noncompliance. 9. CAD. No prior history of CO or heart failure. 10. Recent EGD that she reports is normal. PAST SURGICAL HISTORY: Includes: 1. Cholecystectomy and appendectomy in 1980. 2. Partial hysterectomy with left ovary and tube removal in 1991 for nonmalignant reasons. 3. Left heart catheterization in 2004, seen at [facility]. At that time, she was told she had a small occluded artery. ALLERGIES: INCLUDE PENICILLIN CAUSES NAUSEA AND VOMITING. MORPHINE: RASH, NAUSEA AND VOMITING. DILAUDID: RASH, NAUSEA AND VOMITING. ASPIRIN: SEIZURES. PERCODAN CAUSED HIVES. HOME MEDICATIONS: Include: 1. Albuterol 1 inhalation every 6 hours as needed. 2. Amitriptyline 150 mg q.p.m. 3. Cyclobenzaprine 10 mg 3 times per day. 4. Flonase 2 sprays daily. 5. Gabapentin 300 twice daily. 6. Glipizide 10 mg twice daily. 7. Hydrocodone/acetaminophen 10/325 two times per day as needed. 8. Lasix 20 mg 2 tablets in the morning, 1 in the afternoon. 9. Meloxicam 15 mg daily. 10. Metformin 1000 mg twice daily. 11. [place]-3 fish oil 1000 mg daily. 12. Pantoprazole 40 mg daily. 13. Paxil 20 mg daily. 14. Pravastatin 20 mg at bedtime. The patient notably is supposed to be taking Levemir 120 units twice daily subcutaneously as well as lispro 80 mg with meals and Victoza 1.8 mg daily. However, she has not been taking these 3 shots secondary to financial concerns for the last 8 months. SOCIAL HISTORY: , had 6 boys, one is from an accident. Lists her son Kurtis Rock as her surrogate decision-maker. She wants to be a full code. She has an advanced directive. She is disabled from her diabetes. Denies any alcohol or drugs. Continues to smoke 6 cigarettes a day for the last 34 years. 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 FAMILY HISTORY: Mother living, 84, history of Alzheimer's, stroke and CAD. Father at 84 from complications of diabetes. Six sisters, 5 brothers, all alive. Multiple medical problems amongst her siblings including diabetes, stroke, CAD, breast cancer. One son with hypertension. PHYSICAL EXAMINATION: VITAL SIGNS: Temperature 97.4, pulse 91, respiratory rate 18, blood pressure 133/73, 99% on room air. GENERAL: Lying in bed. She is a morbidly obese female who does not appear to be in acute distress. She does have a hoarse voice. However, she is not dysarthric or aphasic. She is alert and oriented x4. HEENT: Head is atraumatic, normocephalic. Sclerae icteric. Oropharynx, nasal passages are clear. NECK: Supple. LUNGS: Clear to auscultation. CARDIOVASCULAR: Regular rate and rhythm. ABDOMEN: Soft, nontender, bowel sounds present. EXTREMITIES: With trace edema. NEUROLOGIC: Alert and oriented x4, 4-/5 weakness in the left upper extremity, 3 to 4/5 weakness in the left lower extremity. Cranial nerves grossly intact. Gait not assessed as the patient could barely resist gravity lifting her left leg off the bed. MOOD: Cooperative and pleasant, at times tearful when discussing her 's illness. LABORATORY VALUES: Sodium 137, potassium 3.9, chloride 100, CO2 22, BUN 18, creatinine 0.6, glucose 248. ALT 48, AST 34, total protein 8.2, total bilirubin 0.6, alkaline phosphatase 66. White count 12.54, hemoglobin 13.5, hematocrit 39, platelets 310. Influenza A and B negative. INR 1.0. PT 12, fibrinogen 439. UDS positive for TCAs and opiates. Alcohol level less than 10. Troponin 0.01. Magnesium 1.5. Urine: Greater than 1000 glucose. EKG: Sinus tachycardia with flat T waves in aVL, V1, V2. CT head perfusion, CT angiogram neck pending ASSESSMENT: This is a 48-year-old female. 1. Left hemiparesis, rule out acute cerebrovascular accident. History of aspirin allergy. History of prior transient ischemic attacks. 2. Questionable syncopal event secondary to stress versus stroke versus less likely cardiovascular event. 3. Chest pain x1 week, appears exertional, history of coronary artery disease, rule out acute coronary syndrome. First troponin negative 4. Type 2 diabetes mellitus, uncontrolled, noncompliant. No insulin for the last 8 months. Hemoglobin A1c pending 5. Dyslipidemia, on pravastatin, acid profile pending. 6. Hypertension, off antihypertensives for 3 months secondary normal blood pressure. 7. Weight loss secondary to stress versus hyperglycemia versus other underlying disease. 8. Recent upper respiratory infection. 9. Peripheral neuropathy. 10. Diarrhea, resolved 11. Hoarseness. PLAN: 1. Stroke pathway. MRI pending, echocardiogram, neurological evaluation, hemoglobin A1c fasting profile pending, modification of risk factors. 2. Troponins x3. 3. Venous Doppler for lower extremities to rule out DVT. 4. Will place the patient on lower doses of insulin. She has passed her swallow. Will start a 75 g carbohydrate consistent diet. Await for A1c results and titrate up insulin as needed. 5. Currently on pravastatin. Fasting lipid profile pending. Will follow up on the results. 6. The patient may need antihypertensives. Will observe blood pressure for now. 7. Full code. 8. SCDs. Osvaldo Rao MD Dictated By: Crystal Aparicio RN, ANP [id number] CC: K CRANE OPERATOR documented in this encounter Consult Notes * Jovita Najera MD - 10/08/2013 3:34 PM TRUCK CRANE OPERATOR REPORT Name: MARYANNE ROCK Date of : 1965 Attending Physician: Date of Admission: 08/24/2013 Wildlife Control Operator: Jovita Najera MD Date of Consultation: 08/24/2013 REASON FOR CONSULTATION: This is for left hemiparesis. HISTORY OF PRESENT ILLNESS: This is a 48-year-old left-handed female with diabetes and known peripheral neuropathy. She is basically here visiting her who is apparently on life support and CVICU on [facility] with possible flu or H1N1. The patient saw him, she became weak. She sat down in the waiting room. She felt a little better. She went back in the room. She became generally weak again. She went to the bathroom and apparently fell backwards into her gcngaqhu-rf-zog. She seemed a little bit confused and was repeating herself. There is a question of whether she passed out or almost passed out. She was lowered to the floor by a family member. There was no seizure activity seen. She complained of some left-sided pain. The thought her speech was a little slurred. Apparently, she has had an examination; for some nurses where she seemed a little weak on the left and for other people she seemed to have no focal weakness. MEDECATIONS: Her home meds include amitriptyline, cyclobenzaprine, Flonase, gabapentin 300 b.i.d., glipizide, hydrocodone, omega-3 fish oil, pantoprazole, Paxil, pravastatin, Victoza, metformin, meloxicam, Lasix insulin. ALLERGIES: TO DILAUDID, PENICILLIN, FLU VACCINE, ASPIRIN, MORPHINE, AND PERCODAN. We have added Plavix since she has been here. PAST SURGICAL HISTORY: Cholecystectomy, appendectomy, partial hysterectomy, left ovary removal. PAST MEDICAL HISTORY: Asthma, CAD, hypertension, diabetes, dyslipidemia. Apparently, she has been diagnosed with TIAs in the past. I did not ask her about these to see if these were truly focal deficit. She has diabetic neuropathy. SOCIAL HISTORY: She is , lives with her . They live in the [facility]. She smokes 6 cigarettes per day. She has been smoking for 34 years. She does not use illicit substances or alcohol. FAMILY HISTORY: Mother had diabetes, strokes, CAD and breast cancer. LABORATORY DATA: I reviewed the MRI of the brain. This is a normal study to my eye. The official radiology read is pending. CT angiogram of the head and neck and CT perfusion shows no enlarged vessels, stenosis, occlusion or perfusion deficit. INR 1. Sodium 137, potassium 3.9, chloride 100, BUN 18, CO2 22, creatinine 0.6, glucose 248. Hemoglobin 13.5, hematocrit 39, white count 12.54, platelets 310. LDL is unable to be calculated, HDL 24, triglycerides 477, cholesterol 167. She has TCA and opiates in her urine. REVIEW OF SYSTEMS: She has exercise intolerance. She feels wobbly. She feels weak. She has right elbow pain. She has a cough. She is hoarse. She has sputum production. She says there is some greenish sputum. She has generalized weakness and headache, no chest pain, no palpitations, no change in skin lesions. No hallucinations. PHYSICAL EXAMINATION: VITAL SIGNS: Temperature 98, heart rate 93, respiratory rate 18, blood pressure 138/69, saturating 96% on room air. GENERAL: This is an overweight female in no acute distress. HEENT: She is normocephalic and atraumatic. Sclerae are anicteric. Conjunctivae are clear. Oropharynx shows very poor dentition. NECK: Supple without lymphadenopathy. HEART: Rhythm is regular with no murmur, rub or gallop. LUNGS: Clear to auscultation anteriorly. They are markedly diminished at the bases. She has no carotid bruits. ABDOMEN: Nondistended with normoactive bowel sounds. EXTREMITIES: Show no clubbing, cyanosis, or edema. NEUROLOGIC: She is awake and alert. Speech is fluent and appropriate. Pupils are equal, round, and reactive to light. Visual gonzalez are full. Extraocular movements are intact. Her face has symmetric movement. Tongue is midline. Palate elevates well. Her motor strength for me is 5/5 throughout. She has no pronator drift. She did give way a little bit in the left lower extremity, but again I think this was all give way weakness and not true loss of power. Deep tendon reflexes are symmetric. Toes are downgoing. She reported decreased sensation to light touch for the nurse on the left. For me, she reported equal sensation. Iumewb-kegk-ztlvpz shows no dysmetria nor ataxia. Toes are downgoing. I did not assess her ambulation. Rapid alternating movements are normal in both hands. Teyrqy-nnmx-ryinxe testing is normal in both hands. IMPRESSION: This is a 48-year-old female who had generalized weakness and basically went down with weakness twice upon seeing her acutely ill on life support in the ICU. I do not think that this is a neurovascular event, I would not call this a transient ischemic attack. I do not think this was stroke like either. The MRI ruled out stroke. I think that this is probably more of a non physiological stress related response. She admits to me, that she is sleep deprived. She has not been sleeping well. She has not been eating like she should. She has a lot of psychosocial stressors, mainly in the form of having custody of her grandchild as well as her again being acutely ill on life support in the ICU. I reviewed the echocardiogram report. This was a normal study. Her A1c is pending. She has several vascular risk factors. I would maximize her statin and consider addition of fish oil. This can all be done as an outpatient. She needs to be eating a low cholesterol, low-fat diet. She does not know what her hemoglobin A1c runs at home but thinks that her doctor at [place] checks it. She and her family tell me that her diabetic control was good. Certainly, I do not have a hemoglobin A1c, but her glucose was elevated when checked. She can certainly due diabetic education as an outpatient if her hemoglobin A1c comes back greater than 6.5. She has an allergy to aspirin listed and, therefore I agree with the addition of the antiplatelet therapy, Plavix. She just has not had a full evaluation by the rehabilitation team, but without a focal deficit for me and normal strength testing as well as the fact that she clearly did not have a stroke, I think that this is not necessary. The patient is requesting to be discharged and is frightened to leave against medical advice. I would let her be discharged and follow up with her primary care physician back home. Certainly, they can request laboratories, including a fasting lipid profile and the hemoglobin A1c and this can be managed as an outpatient. Thanks for the consult. Jovita Najera MD [id number] CC: K CRANE OPERATOR documented in this encounter Plan of Treatment Not on filedocumented as of this encounter Procedures Comments Procedure Name Priority Date/Time Associated Diagnosis ECHO TRANSTHORACIC Routine 08/24/2013 2:29 PM TRUCK CRANE OPERATOR GLUCOSE POC Routine 08/24/2013 11:47 AM TRUCK CRANE OPERATOR MRI HEAD WO CONTRAST Routine 08/24/2013 10:20 AM TRUCK CRANE OPERATOR TROPONIN Routine 08/24/2013 10:00 AM TRUCK CRANE OPERATOR THYROID STIMULATING Routine 08/24/2013 HORMONE 10:00 AM TRUCK CRANE OPERATOR US VENOUS DUPLEX LOWER Routine 08/24/2013 EXTREMITY BILAT 8:12 AM TRUCK CRANE OPERATOR GLUCOSE POC Routine 08/24/2013 7:47 AM TRUCK CRANE OPERATOR GLUCOSE POC Routine 08/24/2013 5:57 AM TRUCK CRANE OPERATOR ARTERIAL BLOOD GAS Routine 08/24/2013 1:40 AM TRUCK CRANE OPERATOR LIPID PANEL Routine 08/24/2013 1:15 AM TRUCK CRANE OPERATOR ALCOHOL SERUM Routine 08/24/2013 1:[address] ANGIO NECK Routine 08/24/2013 1:[address] CT ANGIO HEAD AND Routine 08/24/2013 PERFUSION P 12:59 AM TRUCK CRANE OPERATOR XR CHEST SINGLE VIEW Routine 08/24/2013 FRONTAL 12:58 AM TRUCK CRANE OPERATOR URINE NITRITE Routine 08/24/2013 12:30 AM TRUCK CRANE OPERATOR URINALYSIS (INCLUDES Routine 08/24/2013 MICROSCOPIC REVIEW, IF 12:30 AM TRUCK CRANE OPERATOR INDICATED) TOXICOLOGY SCREENING Routine 08/24/2013 PANEL 12:30 AM TRUCK CRANE OPERATOR INFLUENZA AB ANTIGEN Routine 08/24/2013 12:10 AM TRUCK CRANE OPERATOR TROPONIN Routine 08/24/2013 12:09 AM TRUCK CRANE OPERATOR PROTEIN TOTAL SERUM Routine 08/24/2013 12:09 AM TRUCK CRANE OPERATOR MAGNESIUM Routine 08/24/2013 12:09 AM TRUCK CRANE OPERATOR HEMOGLOBIN A1C Routine 08/24/2013 12:09 AM TRUCK CRANE OPERATOR COMPLETE BLOOD COUNT Routine 08/24/2013 12:09 AM TRUCK CRANE OPERATOR COAGULATION SCREEN Routine 08/24/2013 12:09 AM TRUCK CRANE OPERATOR BILIRUBIN TOTAL Routine 08/24/2013 12:09 AM TRUCK CRANE OPERATOR BASIC METABOLIC PANEL Routine 08/24/2013 12:09 AM TRUCK CRANE OPERATOR ASPARTATE Routine 08/24/2013 AMINOTRANSFERASE 12:09 AM TRUCK CRANE OPERATOR ALKALINE PHOSPHATASE Routine 08/24/2013 12:09 AM TRUCK CRANE OPERATOR ALBUMIN Routine 08/24/2013 12:09 AM TRUCK CRANE OPERATOR ALANINE AMINOTRANSFERASE Routine 08/24/2013 12:09 [address] HEAD WO CONTRAST Routine 08/23/2013 11:20 PM TRUCK CRANE OPERATOR documented in this encounter Results * ECHO TRANSTHORACIC (08/24/2013 2:29 PM TRUCK CRANE OPERATOR) Specimen Narrative Performed At [facility] RAD ECHOCARDIOGRAM REPORT [facility] Name: MARYANNE ROCK Date: 08/24/2013 14:29 Chart #: [id number] : 1965 Location: [facility] KEVEN Sono: tbinmoy Age: 48 Gender: F Referring: OSVALDO RAO Room #: NA14-1 Fellow: Indication:CVA Procedure: [id number] Complete Echo 2D/Colorflow/Doppler BP: 138 / 69 HR: 90 Ht: 67 Wt: 237 BSA: 2.3 2D ECHO MEASUREMENTS LV Diastolic Diameter Bas4.5 cm3.6-5.4LVPW Diastolic Thickness 1.3 cm0.6-1.1 LV Systolic Diameter Base3.1 cm2.3-4.0Aorta at Sinuses Diameter3 cm2.1-3.5 LA Systolic Diameter LX3.6 cm2.3-3.8Ascending Aorta Diameter 3.2 cm2.1-3.4 IVS Diastolic Thickness0.98 cm 0.6-1.1 WALL SEGMENT ANALYSIS: ROUTINE LVSI : 1%FM : 100 LAD: 1LCX : 1RCA : 1 FINDINGS LV Ejection Fraction: 60 Normal left ventricular systolic function, with an estimated ejection fraction of 60%. Normal wall thickness. Normal wall motion. Normal left ventricular dimensions. Normal right ventricular size and systolic function. Normal right and left atrial size. Mild diastolic dysfunction - normal LA pressure with mild abnormality in LV relaxation. Normal aortic valve without regurgitation. Mildly thickened mitral valve leaflets with mild regurgitation. Normal pulmonic valve with trivial regurgitation. Normal tricuspid valve with trivial regurgitation.Unable to accurately estimate pulmonary artery pressure. No pericardial effusion. IVC is not well visualized. Normal ascending aorta dimensions. No obvious intracardiac masses or thrombi. No evidence for right to left shunting, following an injection of agitated saline. CONCLUSIONS: 1. Normal left ventricular systolic function, with an estimated ejection fraction of 60%. 2. No significant valvular abnormalities. Chelsi Dior M.D.PhD. (Electronically Signed) Final Date: 24 August 2013 15:02 Procedure Note Interface, Rad Conversion - 10/20/2013 10:03 AM CDT RESULT ECHOCARDIOGRAM REPORT [facility] Name: MARYANNE ROCK Date: 08/24/2013 14:29 Chart #: [id number] : 1965 Location: [facility] Sono: tbinmoy Age: 48 Gender: F Referring: OSVALDO RAO Room #: NA14-1 Fellow: Indication:CVA Procedure: [id number] Complete Echo 2D/Colorflow/Doppler BP: 138 / 69 HR: 90 Ht: 67 Wt: 237 BSA: 2.3 2D ECHO MEASUREMENTS LV Diastolic Diameter Bas 4.5 cm 3.6-5.4 LVPW Diastolic Thickness 1.3 cm 0.6-1.1 LV Systolic Diameter Base 3.1 cm 2.3-4.0 Aorta at Sinuses Diameter 3 cm 2.1-3.5 LA Systolic Diameter LX 3.6 cm 2.3-3.8 Ascending Aorta Diameter 3.2 cm 2.1-3.4 IVS Diastolic Thickness 0.98 cm 0.6-1.1 WALL SEGMENT ANALYSIS: ROUTINE LVSI : 1 %FM : 100 LAD : 1 LCX : 1 RCA : 1 FINDINGS LV Ejection Fraction: 60 Normal left ventricular systolic function, with an estimated ejection fraction of 60%. Normal wall thickness. Normal wall motion. Normal left ventricular dimensions. Normal right ventricular size and systolic function. Normal right and left atrial size. Mild diastolic dysfunction - normal LA pressure with mild abnormality in LV relaxation. Normal aortic valve without regurgitation. Mildly thickened mitral valve leaflets with mild regurgitation. Normal pulmonic valve with trivial regurgitation. Normal tricuspid valve with trivial regurgitation. Unable to accurately estimate pulmonary artery pressure. No pericardial effusion. IVC is not well visualized. Normal ascending aorta dimensions. No obvious intracardiac masses or thrombi. No evidence for right to left shunting, following an injection of agitated saline. CONCLUSIONS: 1. Normal left ventricular systolic function, with an estimated ejection fraction of 60%. 2. No significant valvular abnormalities. Chelsi Dior M.D. PhD. (Electronically Signed) Final Date: 24 August 2013 15:02 Performing Organization Address [facility] Phone Number [facility]ARDI[facility] [place] RAD [address] [facility] [address] * GLUCOSE POC (08/24/2013 11:47 AM TRUCK CRANE OPERATOR) Only the most recent of 3 results within the time period is included. Glucose POC 235 (H) 70 - 100 MG/DL HLAB Specimen Blood Performing Organization Address City/[facility]/Zipcode Phone Number [address] [place] [address] HLAB [address] [place] [address] * MRI Head wo contrast (08/24/2013 10:20 AM TRUCK CRANE OPERATOR) Specimen Narrative Performed At [facility] Patient:MARYANNE ROCK Phone #:[place] Rec#:[id number] Sex:F :1965Corp#: [id number] Location: [facility] NA14 01 Check-in#: [id number] Procedure Requested: [id number] MRI HEAD WO CONTRAST Reason For Exam: ics Exam Ordered:08/24/2013 0800 Exam Date/Time:08/24/2013 1050 Check-in Date/Time:08/24/2013 1523 Attendin HOSPITALIST, PHYSICIAN "" Requestin ANTIONETTE VELASCO Referrin BLANCA, TOMMY GUIDRY Primary Care: BLANCA, FAMILY MRI HEAD WO CONTRAST Aug 24, 2013 10:59:32 AM Indication: Dizziness of central origin and weakness. Comparison: Same day CT of the head with perfusion. Technique:Multiplanar multipulse sequence imaging of the brain was performed without contrast. Findings: No areas of restricted diffusion to suggest acute stroke.No intra or extra-axial mass or hemorrhage is identified. There is no midline shift. The peng-white matter junction is normal. Ventricles are of normal size, shape, and morphology.The basilar cisterns are patent. The paranasal sinuses are normal. The mastoid air cells are clear.The globes and orbits are intact. No extracalvarial soft tissue abnormality. Normal flow voids are seen in the intracranial arterial and venous structures indicating patency. Impression: No acute abnormalities of the brain per nonenhanced MRI. READING SITE: [facility]. ATTESTATION STATEMENT: The Staff Radiologist has personally reviewed the images and dictated, reviewed, or edited the final report. Signed (Authenticated, Released) Date-Time: 08/24/2013 1556 Elementary Ell Teacher- VINH LANG, Staff Radiologist Dictated By- JOHNSON WATERS, Resident Staff Physician- VINH LANG, Staff Radiologist Authenticated By- VINH LANG, Staff Radiologist Procedure Note Interface, Rad Conversion - 10/09/2013 9:07 AM TRUCK CRANE OPERATOR REPORT Patient: MARYANNE ROCK Phone #: [place] Rec#: [id number] Sex: F : 1965 [facility]#: [id number] Location: [place] [address] Check-in#: [id number] Procedure Requested: [id number] MRI HEAD WO CONTRAST Reason For Exam: ics Exam Ordered: 08/24/2013 0800 Exam Date/Time: 08/24/2013 1050 Check-in Date/Time: 08/24/2013 1523 Attendin HOSPITALIST, PHYSICIAN "" Requestin ANTIONETTE VELASCO Referrin BLANCA, REFERRING Primary Care: BLANCA, FAMILY MRI HEAD WO CONTRAST Aug 24, 2013 10:59:32 AM Indication: Dizziness of central origin and weakness. Comparison: Same day CT of the head with perfusion. Technique: Multiplanar multipulse sequence imaging of the brain was performed without contrast. Findings: No areas of restricted diffusion to suggest acute stroke. No intra or extra-axial mass or hemorrhage is identified. There is no midline shift. The peng-white matter junction is normal. Ventricles are of normal size, shape, and morphology. The basilar cisterns are patent. The paranasal sinuses are normal. The mastoid air cells are clear. The globes and orbits are intact. No extracalvarial soft tissue abnormality. Normal flow voids are seen in the intracranial arterial and venous structures indicating patency. Impression: No acute abnormalities of the brain per nonenhanced MRI. READING SITE: [facility]. ATTESTATION STATEMENT: The Staff Radiologist has personally reviewed the images and dictated, reviewed, or edited the final report. Signed (Authenticated, Released) Date-Time: 08/24/2013 1556 Elementary Ell Teacher- VINH ANDERSON M.D., Staff Radiologist Dictated By- JOHNSON ASH M.D., Resident Staff Physician- VINH ANDERSON M.D., Staff Radiologist Authenticated By- VINH ANDERSON M.D., Staff Radiologist Performing Organization Address [facility] [place] Phone Number YESSI * Troponin (08/24/2013 10:00 AM TRUCK CRANE OPERATOR) Only the most recent of 2 results within the time period is included. Troponin <0.01 0.00 - 0.03 NG/ML HLAB Comment: Troponin ValueInterpretation 0.00 - 0.03 Healthy 0.04 - 0.12 Increased Cardiac Risk >0.12M yocardial Infarction Troponin may not become elevated until 6 to 8 hours after onset of symptoms. Specimen Blood Performing Organization Address [facility] Hospitalconh Phone Number [facility] [address] [place] [address] HLAB [address] [place] [address] * Thyroid Stimulating Hormone (08/24/2013 10:00 AM TRUCK CRANE OPERATOR) Thyroid 1.16 0.47 - 4.68 UIU/ML [facility]AB Stimulating Hormone Specimen Blood Performing Organization Address [facility] Phone Number [address] [place] [address] HLAB [address] [place] [address] * US Venous Duplex Lower Extremity bilat (08/24/2013 8:12 AM TRUCK CRANE OPERATOR) Specimen Narrative Performed At REPORT YESSI Patient:MARYANNE ROCK Phone #:[place] Rec#:[id number] Sex:F :1965Corp#: [id number] Location: [place] [address] Check-in#: [id number] Procedure Requested: [id number] US VENOUS DUPLEX BILAT LOWER EXT Reason For Exam: LIMB PAIN Exam Ordered:08/24/2013 0758 Exam Date/Time:08/24/2013 0842 Check-in Date/Time:08/24/2013 1138 Attendin HOSPITALIST, PHYSICIAN "" Requestin OSVALDO RAO Referrin BLANCA, REFERRING Primary Care: BLANCA, FAMILY DR SUNG VENOUS DUPLEX BILAT LOWER EXT Aug 24, 2013 08:42:41 AM Clinical Indication: LIMB PAIN Comparison: None. Technique: Ultrasound duplex examination of the bilateral lower extremity venous system was performed. Findings: All visualized segments of the common femoral, greater saphenous, superficial femoral, profunda femoris, popliteal vein are patent with good compressibility and augmentation. The calf veins are patent. Impression: No bilateral lower extremity DVT. READING SITE: [facility] ATTESTATION STATEMENT: The Staff Radiologist has personally reviewed the images and dictated, reviewed, or edited the final report. Signed (Authenticated, Released) Date-Time: 08/26/2013 1314 Elementary Ell Teacher- DIONTE VILCHIS, Staff Radiologist Dictated By- JACKIE TORRES, Resident Staff Physician- DIONTE VILCHIS, Staff Radiologist Authenticated By- DIONTE VILCHIS, Staff Radiologist Procedure Note Interface, Rad Conversion - 10/09/2013 9:04 AM TRUCK CRANE OPERATOR REPORT Patient: MARYANNE ROCK Phone #: [place] Rec#: [id number] Sex: F : 1965 [place]#: [id number] Location: [place] [address] Check-in#: [id number] Procedure Requested: [id number] US VENOUS DUPLEX BILAT LOWER EXT Reason For Exam: LIMB PAIN Exam Ordered: 08/24/2013 0758 Exam Date/Time: 08/24/2013 0842 Check-in Date/Time: 08/24/2013 1138 Attendin HOSPITALIST, PHYSICIAN "" Requestin OSVALDO RAO Referrin BLANCA, REFERRING Primary Care: BLANCA, FAMILY DR SUNG VENOUS DUPLEX BILAT LOWER EXT Aug 24, 2013 08:42:41 AM Clinical Indication: LIMB PAIN Comparison: None. Technique: Ultrasound duplex examination of the bilateral lower extremity venous system was performed. Findings: All visualized segments of the common femoral, greater saphenous, superficial femoral, profunda femoris, popliteal vein are patent with good compressibility and augmentation. The calf veins are patent. Impression: No bilateral lower extremity DVT. READING SITE: [facility] ATTESTATION STATEMENT: The Staff Radiologist has personally reviewed the images and dictated, reviewed, or edited the final report. Signed (Authenticated, Released) Date-Time: 08/26/2013 1314 Elementary Ell Teacher- DIONTE GARRETT M.D., Staff Radiologist Dictated By- JACKIE REEDER M.D., Resident Staff Physician- DIONTE GARRETT M.D., Staff Radiologist Authenticated By- DIONTE GARRETT M.D., Staff Radiologist Performing Organization Address [facility] [place] Phone Number MCKESSON * Arterial Blood Gas (08/24/2013 1:40 AM TRUCK CRANE OPERATOR) pH Arterial 7.37 7.36 - 7.44 UNITS HLAB pCO2 Arterial 39 35 - 45 MM HG HLAB PO2 Arterial 83 80 - 100 MM HG HLAB Base Excess -2.0 -3.0 - 3.0 MEQ/L HLAB Bicarbonate 22.4 19.0 - 29.0 MEQ/L HLAB Patient Temp 37.0 C HLAB Celsius Sample Site Radial right HLAB Device RA HLAB Mode SV HLAB Specimen Arterial Performing Organization Address [facility] [place] Phone Number [address] [place] [address] HLAB [address] [place] [address] * Alcohol Serum (08/24/2013 1:15 AM TRUCK CRANE OPERATOR) Alcohol Serum <10 0 - 9 MG/DL [facility] Specimen Blood Performing Organization Address [facility] [place] Phone Number [address] [place] [address] HLAB [address] [place] [address] * Lipid Panel (08/24/2013 1:15 AM TRUCK CRANE OPERATOR) Cholesterol 167 100 - 200 MG/DL HLAB Triglycerides 477 (H) 0 - 150 MG/DL HLAB HDL Cholesterol 24 (L) 40 - 110 MG/DL HLAB LDL Cholesterol Not CalcComment: Unable to 0 - 99 MG/DL HLAB calculate LDL due to Triglycerides > 400 mg/dl Cholesterol/HDL 7.0 (H) 0.0 - 4.5 HLAB Ratio Non-HDL 143 (H) 0 - 130 MG/DL HLAB Cholesterol Specimen Blood Performing Organization Address City/State/Zipcode Phone Number [address] [place] [address] HLAB [address] [place] [address] * CT Angio Neck (08/24/2013 1:00 AM TRUCK CRANE OPERATOR) Specimen Narrative [facility] Patient:MARYANNE ROCK Phone #:[place] Rec#:[id number] Sex:F :1965Corp#: [id number] Location: [place] [address] Check-in#: [id number] Procedure Requested: [id number] CT ANGIO NECK Reason For Exam: SYNCOPE Exam Ordered:08/24/2013 0047 Exam Date/Time:08/24/2013 0120 Check-in Date/Time:08/24/2013 1244 Attendin HOSPITALIST, PHYSICIAN "" Requestin ANTIONETTE VELASCO Referrin BLANCA, REFERRING Primary Care: BLANCA, FAMILY CT ANGIO NECK Aug 24, 2013 01:20:00 AM Indication:SYNCOPE Comparison:None. Technique:Multiple axial tomographic images of the head and neck were obtained without contrast.CT angiogram of neck was obtained with bolus injection of 75 mL of Omnipaque 350.The images were sent to workstation and 3D volume rendering was performed. Findings: The carotid and vertebral origins appear intact.Both carotid bifurcations show mild atherosclerotic plaque but no stenosis.Both carotid and vertebral demonstrate normal course in the neck.There is 0% stenosis of the bilateral ICAs based on NASCET criteria. The parotid, submandibular, and thyroid glands are normal. No cervical lymphadenopathy. The lung apices show biapical subpleural focal fibrosis. Dental disease seen. IMPRESSION: Normal CTA of the neck with no carotid or vertebral disease seen. ATTESTATION STATEMENT: The Staff Radiologist has personally reviewed the images and dictated, reviewed, or edited the final report. READING SITE: [facility] Signed (Authenticated, Released) Date-Time: 08/24/2013 1559 Elementary Ell Teacher- AHSAN IGLESIAS, Staff Radiologist Dictated By- CARMENZA RAY, Resident Staff Physician- AHSAN IGLESIAS, Staff Radiologist Authenticated By- AHSAN IGLESIAS, Staff Radiologist Procedure Note Interface, Rad Conversion - 10/09/2013 9:07 AM TRUCK CRANE OPERATOR REPORT Patient: MARYANNE ROCK Phone #: [place] Rec#: [id number] Sex: F : 1965 [place]#: [id number] Location: [place] [address] Check-in#: [id number] Procedure Requested: [id number] CT ANGIO NECK Reason For Exam: SYNCOPE Exam Ordered: 08/24/2013 0047 Exam Date/Time: 08/24/2013 0120 Check-in Date/Time: 08/24/2013 1244 Attendin HOSPITALIST, PHYSICIAN "" Requestin ANTIONETTE VELASCO Referrin BLANCA, TOMMY GUIDRY Primary Care: BLANCA, FAMILY CT ANGIO NECK Aug 24, 2013 01:20:00 AM Indication: SYNCOPE Comparison: None. Technique: Multiple axial tomographic images of the head and neck were obtained without contrast. CT angiogram of neck was obtained with bolus injection of 75 mL of Omnipaque 350. The images were sent to workstation and 3D volume rendering was performed. Findings: The carotid and vertebral origins appear intact. Both carotid bifurcations show mild atherosclerotic plaque but no stenosis. Both carotid and vertebral demonstrate normal course in the neck. There is 0% stenosis of the bilateral ICAs based on NASCET criteria. The parotid, submandibular, and thyroid glands are normal. No cervical lymphadenopathy. The lung apices show biapical subpleural focal fibrosis. Dental disease seen. IMPRESSION: Normal CTA of the neck with no carotid or vertebral disease seen. ATTESTATION STATEMENT: The Staff Radiologist has personally reviewed the images and dictated, reviewed, or edited the final report. READING SITE: [facility] Signed (Authenticated, Released) Date-Time: 08/24/2013 5970 [address] Ell Teacher- AHSAN AMADO M.D., Staff Radiologist Dictated By- CARMENZA VELA M.D., Resident Staff Physician- AHSAN AMDAO M.D., Staff Radiologist Authenticated By- AHSAN AMADO M.D., Staff Radiologist Performing Organization Address City/State/Zipcode Phone Number YESSI * CT Angio Head and Perfusion P (08/24/2013 12:59 AM TRUCK CRANE OPERATOR) Specimen Narrative Performed At REPORT YESSI Patient:MARYANNE ROCK Phone #:[place] Rec#:[id number] Sex:F :1965Corp#: [id number] Location: [place] [address] Check-in#: [id number] Procedure Requested: [id number] CT ANGIO HEAD W WO AND PERFUS W P Reason For Exam: LEFT FACE, ARM, AND LEG PARALYSIS Exam Ordered:08/24/2013 0046 Exam Date/Time:08/24/2013 0119 Check-in Date/Time:08/24/2013 1249 Attendin HOSPITALIST, PHYSICIAN "" Requestin ANTIONETTE VELASCO Referrin TOMMY RIOS DR Primary Care: BLANCA, FAMILY CT ANGIO HEAD AND PERFUSION DATE:Aug 24, 2013 12:47:00 AM INDICATION: LEFT FACE, ARM, AND LEG PARALYSIS. COMPARISON: None. TECHNIQUE: CT Head (without contrast), CT Angiogram and CT Perfusion Head (with contrast) were performed. Multiple axial tomographic images of the head were obtained without contrast.CT angiogram of head was obtained with bolus injection of 75 mL of Omnipaque 350.The images were sent to workstation and 3D volume rendering was performed.Axial slices for perfusion were selected and CT perfusion head was performed with bolus injection of 40 mL of Omnipaque 350.The images were sent to workstation and mean transit time (MTT), cerebral blood flow (CBF), and cerebral blood volume (CBV) were calculated. FINDINGS: Examination is mildly limited secondary to patient motion and streak artifact, particularly near the skull base. There is no midline shift. No intra or extra-axial mass or hemorrhage is identified. Question small focus of left pontine low-attenuation (series 2, image #10). Otherwise, the peng-white matter differentiation is normal. The ventricles are normal in size, shape and location. No soft tissue abnormality seen. Visible sinuses and orbits are normal. The CTA angiogram shows normal filling of both distal ICAs, anterior and middle cerebral artery branches. The basilar and posterior cerebral arteries are normal. No arterial occlusion is identified. No aneurysm is seen. The CT perfusion shows normal and symmetrical mean transit time (MTT), cerebral blood flow (CBF) and cerebral blood volume (CBV). IMPRESSION: CT HEAD: Small focus of left pontine low-attenuation which is more likely due to artifact from adjacent bone but difficult to exclude acute pontine infarct. Further evaluation with an MRI brain can be obtained. CT ANGIOGRAM: Normal CT angiogram of head. CT PERFUSION: Normal CT perfusion of head. The above results were verbally communicated to the code neuro nurse by Dr. Hutchison at 1:24 a.m. on 08/24/2013. ATTESTATION STATEMENT: The Staff Radiologist has personally reviewed the images and dictated, reviewed, or edited the final report. Signed (Authenticated, Released) Date-Time: 08/24/2013 1559 Elementary Ell Teacher- AHSAN IGLESIAS, Staff Radiologist Dictated By- CARMENZA RAY, Resident Staff Physician- AHSAN IGLESIAS, Staff Radiologist Authenticated By- AHSAN IGLESIAS, Staff Radiologist Procedure Note Interface, Rad Conversion - 10/09/2013 9:07 AM TRUCK CRANE OPERATOR REPORT Patient: MARYANNE ROCK Phone #: Med Rec#: [id number] Sex: F : 1965 [place]#: [id number] Location: [place] [address] 01 Check-in#: [id number] Procedure Requested: [id number] CT ANGIO HEAD W WO AND PERFUS W P Reason For Exam: LEFT FACE, ARM, AND LEG PARALYSIS Exam Ordered: 08/24/2013 0046 Exam Date/Time: 08/24/2013 0119 Check-in Date/Time: 08/24/2013 1249 Attendin HOSPITALIST, PHYSICIAN "" Requestin ANTIONETTE VELASCO Referrin BLANCA, REFERRING Primary Care: BLANCA, FAMILY CT ANGIO HEAD AND PERFUSION DATE: Aug 24, 2013 12:47:00 AM INDICATION: LEFT FACE, ARM, AND LEG PARALYSIS. COMPARISON: None. TECHNIQUE: CT Head (without contrast), CT Angiogram and CT Perfusion Head (with contrast) were performed. Multiple axial tomographic images of the head were obtained without contrast. CT angiogram of head was obtained with bolus injection of 75 mL of Omnipaque 350. The images were sent to workstation and 3D volume rendering was performed. Axial slices for perfusion were selected and CT perfusion head was performed with bolus injection of 40 mL of Omnipaque 350. The images were sent to workstation and mean transit time (MTT), cerebral blood flow (CBF), and cerebral blood volume (CBV) were calculated. FINDINGS: Examination is mildly limited secondary to patient motion and streak artifact, particularly near the skull base. There is no midline shift. No intra or extra-axial mass or hemorrhage is identified. Question small focus of left pontine low-attenuation (series 2, image #10). Otherwise, the peng-white matter differentiation is normal. The ventricles are normal in size, shape and location. No soft tissue abnormality seen. Visible sinuses and orbits are normal. The CTA angiogram shows normal filling of both distal ICAs, anterior and middle cerebral artery branches. The basilar and posterior cerebral arteries are normal. No arterial occlusion is identified. No aneurysm is seen. The CT perfusion shows normal and symmetrical mean transit time (MTT), cerebral blood flow (CBF) and cerebral blood volume (CBV). IMPRESSION: CT HEAD: Small focus of left pontine low-attenuation which is more likely due to artifact from adjacent bone but difficult to exclude acute pontine infarct. Further evaluation with an MRI brain can be obtained. CT ANGIOGRAM: Normal CT angiogram of head. CT PERFUSION: Normal CT perfusion of head. The above results were verbally communicated to the code neuro nurse by Dr. Hutchison at 1:24 a.m. on 08/24/2013. ATTESTATION STATEMENT: The Staff Radiologist has personally reviewed the images and dictated, reviewed, or edited the final report. Signed (Authenticated, Released) Date-Time: 08/24/2013 1559 [address] Ell Teacher- AHSAN AMADO M.D., Staff Radiologist Dictated By- CARMENZA VELA M.D., Resident Staff Physician- AHSAN AMADO M.D., Staff Radiologist Authenticated By- AHSAN AMADO M.D., Staff Radiologist Performing Organization Address City/State/[facility] Phone Number YESSI * XR Chest single view frontal (08/24/2013 12:58 AM TRUCK CRANE OPERATOR) Specimen Narrative Performed At REPORT YESSI Patient:MARYANNE ROCK Phone #:[place] Rec#:[id number] Sex:F :1965Corp#: [id number] Location: [place] [address] 01 Check-in#: [id number] Procedure Requested: [id number] DX CHEST SINGLE VIEW Reason For Exam: COUGH Exam Ordered:08/24/2013 0047 Exam Date/Time:08/24/2013 0108 Check-in Date/Time:08/24/2013 0807 Attendin HOSPITALIST, PHYSICIAN "" Requestin ANTIONETTE VELASCO Referrin BLANCA, REFERRING Primary Care: BLANCA, FAMILY DR BOYD CHEST SINGLE VIEW INDICATION: COUGH. COMPARISON STUDY: None. FINDINGS: Lungs: The lung volume is normal. No focal airspace disease. Normal pulmonary vasculature. Pleura: No pleural effusion or pneumothorax. Heart and Mediastinum: The cardiomediastinal silhouette and great vessels are stable. Bones: Osseous structures are intact. IMPRESSION:No acute cardiopulmonary process. ATTESTATION STATEMENT: The Staff Radiologist has personally reviewed the images and dictated, reviewed, or edited the final report. READING SITE: [facility]. Signed (Authenticated, Released) Date-Time: 08/24/2013 1319 Elementary Ell Teacher- YOVANI AGUILAR, Staff Radiologist Dictated By- CARMENZA RAY, Resident Staff Physician- YOVANI AGUILAR, Staff Radiologist Authenticated By- YOVANI AGUILAR, Staff Radiologist Procedure Note Interface, Rad Conversion - 10/09/2013 9:08 AM TRUCK CRANE OPERATOR REPORT Patient: MARYANNE ROCK Phone #: [place] Rec#: [id number] Sex: F : 1965 [place]#: [id number] Location: [place] [address] Check-in#: [id number] Procedure Requested: [id number] DX CHEST SINGLE VIEW Reason For Exam: COUGH Exam Ordered: 08/24/2013 0047 Exam Date/Time: 08/24/2013 0108 Check-in Date/Time: 08/24/2013 0807 Attendin HOSPITALIST, PHYSICIAN "" Requestin ANTIONETTE VELASCO Referrin NO, REFERRING Primary Care: BLANCA, FAMILY DR BOYD CHEST SINGLE VIEW INDICATION: COUGH. COMPARISON STUDY: None. FINDINGS: Lungs: The lung volume is normal. No focal airspace disease. Normal pulmonary vasculature. Pleura: No pleural effusion or pneumothorax. Heart and Mediastinum: The cardiomediastinal silhouette and great vessels are stable. Bones: Osseous structures are intact. IMPRESSION: No acute cardiopulmonary process. ATTESTATION STATEMENT: The Staff Radiologist has personally reviewed the images and dictated, reviewed, or edited the final report. READING SITE: [facility]. Signed (Authenticated, Released) Date-Time: 08/24/2013 1319 Elementary Ell Teacher- YOVANI SEO M.D., Staff Radiologist Dictated By- CARMENZA VELA M.D., Resident Staff Physician- YOVANI SEO M.D., Staff Radiologist Authenticated By- YOVANI SEO M.D., Staff Radiologist Performing Organization Address [facility] [place] Phone Number MCKESSON * Urinalysis (08/24/2013 12:30 AM TRUCK CRANE OPERATOR) Pathologist [facility] Appearance, Yellow HL[facility] Urine Specific 1.021 1.001 - 1.030 HLAB [place], UA PH Urine 5.5 5.0 - 8.0 HLAB Hemoglobin Negative Negative [facility] Urine Leukocyte Negative Negative HLAB Esterase Bilirubin Urine Negative Negative HLAB Glucose Urine >=1000 (A) Negative MG/DL [facility] Ketones Urine Negative Negative MG/DL [facility] Protein Urine Negative Negative MG/DL [facility] Qual Urobilinogen Negative Negative EU/DL [facility] Urine Specimen Urine Performing Organization Address [facility] [place] Phone Number [facility] [address] [place] [address] [facility] [address] [place] [address] * Urine Nitrite (08/24/2013 12:30 AM TRUCK CRANE OPERATOR) [facility] Nitrite Urine Negative Negative [facility] Specimen Urine Performing Organization Address [facility] [place] Phone Number [facility] [address] [place] [address] [facility] [address] [place] [address] * Toxicology Screening Panel (08/24/2013 12:30 AM TRUCK CRANE OPERATOR) [facility] Amphetamines Not Detected Not Detected [facility] Urine Comment: Due to a brick siding applicator recall, we are temporarily unable to test for acetaminophen and methadone; methamphetamine is included in the amphetamine result line. Barbiturates Not Detected Not Detected [facility] Urine Benzodiazepines Not Detected Not Detected [facility] Urine Cocaine Urine Not Detected Not Detected [facility] Opiates Urine Present (A) Not Detected [facility] Phencyclidine Not Detected Not Detected [facility] Urine Tetrahydrocanna Not Detected Not Detected [facility] binol Urine Tricyclic Present (A) Not Detected [facility] Antidepressants Comment: Toxicology cutoff values: Assay Cutoff value Assay Cutoff value Acetaminophen5 ug/mL Methadone 300 ng/mL [id number] ng/mL Opiates 300 ng/mL Dcichwvstuorvelh3593 ng/mL Phencyclidine 25 ng/mL Barbiturates 300 ng/mL THC 50 ng/mL Cdvkhopqisqxsyz634 ng/mL Tricyclic Orrjmicztsogwsf1349 ng/mL Cocaine 300 ng/mL This drug screen provides presumptive results for medical purposes only. False positive results may occur. Physicians should order confirmatory testing on this sample if the results are considered clinically significant. Specimen Urine Performing [facility] [place] Phone Number R [address] [place] [address] [facility] [address] [place] [address] * Influenza AB Antigen (08/24/2013 12:10 AM TRUCK CRANE OPERATOR) [facility] Influenza A Negative Negative [facility] Antigen Influenza B Negative Negative [facility] Antigen Specimen Specimen Performing [facility] [place] Phone Number [facility] [address] [place] [address] [facility] [address] [place] [address] * Complete Blood Count (08/24/2013 12:09 AM TRUCK CRANE OPERATOR) [facility] WBC 12.54 (H) 4.00 - 11.00 TH/UL [facility] RBC 4.42 4.00 - 5.00 MIL/UL [facility] Hemoglobin 13.5 12.0 - 15.0 G/DL [facility] Hematocrit 39 36 - 45 % [facility] MCV 89 80 - 99 FL [facility] MCH 31 27 - 34 PG [facility] MCHC 34 32 - 36 % [facility] RDW 13.2 9.0 - 14.5 % [facility] Platelet Count 310 140 - 400 TH/UL [facility] MPV 12.5 (H) 9.4 - 12.3 FL [facility] Nucleated RBCs 0 0 - 0 /100 [facility] Specimen Blood Performing [facility] [place] Phone Number R [address] [place] [address] [facility] [address] [place] [address] * Basic Metabolic Panel (08/24/2013 12:09 AM TRUCK CRANE OPERATOR) Sodium 137 133 - 147 MEQ/L [facility] Potassium 3.9 3.5 - 5.3 MEQ/L [facility] Chloride 100 96 - 112 MEQ/L [facility] Carbon Dioxide 22Comment: Carbon Dioxide 20 - 32 MEQ/L [facility] reference interval changed 08/19/13. Anion Gap 15 5 - 17 [facility] Creatinine 0.6 0.4 - 1.1 MG/DL [facility] Blood Urea 18 7 - 26 MG/DL [facility] Nitrogen Glucose 248 (H) 70 - 100 MG/DL [facility] Calcium 9.2Comment: Calcium reference 8.4 - 10.5 MG/DL [facility] interval changed 07/29/2013. eGFR Female AA 127 [facility] Comment: Chronic Kidney Disease less than 60 mL/min/1.73 sq.m Kidney failure less than 15 mL/min/1.73 sq.m eGFR Female 106 [facility] Non-AA Comment: Chronic Kidney Disease less than 60 mL/min/1.73 sq.m Kidney failure less than 15 mL/min/1.73 sq.m Specimen Blood Performing Organization Address [facility] Phone Number [facility] [address] [place] [address] [facility] [address] [place] [address] * Magnesium (08/24/2013 12:09 AM TRUCK CRANE OPERATOR) Magnesium 1.5 1.4 - 2.7 MG/DL [facility] Specimen Blood Performing Organization Address [facility] Phone Number [facility] [address] [place] [address] [facility] [address] [place] [address] * Coagulation Screen (08/24/2013 12:09 AM TRUCK CRANE OPERATOR) Protime 12.8 11.7 - 14.3 SEC [facility] INR 1.0 0.9 - 1.1 [facility] APTT 27 22 - 34 SEC [facility] Fibrinogen 439 (H) 146 - 390 MG/DL [facility] Assay Specimen Blood Performing Organization Address [facility] Phone Number [facility] [address] [place] [address] [facility] [address] [place] [address] * Alanine Aminotransferase (08/24/2013 12:09 AM TRUCK CRANE OPERATOR) Alanine 48 13 - 69 IU/L [facility] Aminotransferas e Specimen Blood Performing Organization Address [facility] Phone Number [facility] [address] [place] [address] [facility] [address] [place] [address] * Albumin (08/24/2013 12:09 AM TRUCK CRANE OPERATOR) Albumin 4.1 3.5 - 5.0 G/DL [facility] Specimen Blood Performing Organization Address [facility] Phone Number [facility] [address] [place] [address] [facility] [address] [place] [address] * Bilirubin Total (08/24/2013 12:09 AM TRUCK CRANE OPERATOR) Bilirubin Total 0.6 0.2 - 1.3 MG/DL [facility] Specimen Blood Performing Organization Address [facility] [place] Phone Number RL [address] [place] [address] [facility] [address] [place] [address] * Alkaline Phosphatase (08/24/2013 12:09 AM TRUCK CRANE OPERATOR) Alkaline 66 42 - 140 IU/L [facility] Phosphatase Specimen Blood Performing Organization Address [facility] Phone Number [facility] [address] [place] [address] [facility] [address] [place] [address] * Aspartate Aminotransferase (08/24/2013 12:09 AM TRUCK CRANE OPERATOR) Aspartate 34 15 - 46 IU/L [facility] Aminotransferas e Specimen Blood Performing Organization Address [facility] [place] Phone Number RL [address] [place] [address] [facility] [address] [place] [address] * Protein Total Serum (08/24/2013 12:09 AM TRUCK CRANE OPERATOR) Protein Total 8.2 6.0 - 8.2 G/DL [facility] Serum Specimen Blood Performing Organization Address [facility] [place] Phone Number RL [address] [place] [address] [facility] [address] [place] [address] * Hemoglobin A1C (08/24/2013 12:09 AM TRUCK CRANE OPERATOR) HEMOGLOBIN A1C 11.5 (H) 4.0 - 5.6 % [facility] Comment: Non-diabetic 4.0 - 5.6 % Prediabetes 5.7 - 6.4 % Diabetes >=6.5 % Specimen Blood Performing Organization Address City/State/Zipcode Phone Number [facility] [address] [place] [address] [facility] [address] [place] [address] * CT Head wo contrast (08/23/2013 11:20 PM TRUCK CRANE OPERATOR) Specimen Narrative Performed At [facility] Patient:MARYANNE ROCK Phone #:[place] Rec#:[id number] Sex:F :1965Corp#: [id number] Location: [place] [address] Check-in#: [id number] Procedure Requested: [id number] CT HEAD WO CONTRAST Reason For Exam: DECREASED LEVEL OF CONSCIOUSNESS Exam Ordered:08/23/2013 231 Exam Date/Time:08/23/2013 233 Check-in Date/Time:08/24/2013 1151 Attendin HOSPITALIST, PHYSICIAN "" Requestin ANTIONETTE VELASCO Referrin BLANCA, REFERRING Primary Care: BLANCA, FAMILY CT of the head w/o contrast: Aug 23, 2013 11:21:16 PM Clinical Indication: Decreased level of consciousness. Comparison: None 5 mm axial tomographic images were obtained to the head without contrast. These were viewed on brain and bone windows. Findings: Evaluation is mildly limited by motion artifact, particularly on slices 21 through 24. Mild generalized cerebral volume loss. There is no midline shift. No intra or extra-axial mass or hemorrhage is identified. The peng-white matter junction is normal. The ventricles are normal in size shape and location. No soft tissue abnormality seen. Visible sinuses and orbits are normal. No osseous destructive lesion. Impression: No acute intracranial process per unenhanced CT ATTESTATION STATEMENT: The Staff Radiologist has personally reviewed the images and dictated, reviewed, or edited the final report. READING SITE: [facility] Signed (Authenticated, Released) Date-Time: 08/24/2013 47[address] Teacher- AHSAN IGLESIAS, Staff Radiologist Dictated By- CARMENZA RAY, Resident Staff Physician- AHSAN IGLESIAS, Staff Radiologist Authenticated By- AHSAN IGLESIAS, Staff Radiologist Procedure Note Interface, Rad Conversion - 10/09/2013 9:07 AM TRUCK CRANE OPERATOR REPORT Patient: MARYANNE ROCK Phone #: [place] Rec#: [id number] Sex: F : 1965 [place]#: [id number] Location: [place] [address] Check-in#: [id number] Procedure Requested: [id number] CT HEAD WO CONTRAST Reason For Exam: DECREASED LEVEL OF CONSCIOUSNESS Exam Ordered: 08/23/2013 2316 Exam Date/Time: 08/23/20132329 Check-in Date/Time: 08/24/2013 1151 Attendin HOSPITALIST, PHYSICIAN "" Requestin ANTIONETTE VELASCO Referrin BLANCA, TOMMY GUIDRY Primary Care: BLANCA, FAMILY CT of the head w/o contrast: Aug 23, 2013 11:21:16 PM Clinical Indication: Decreased level of consciousness. Comparison: None 5 mm axial tomographic images were obtained to the head without contrast. These were viewed on brain and bone windows. Findings: Evaluation is mildly limited by motion artifact, particularly on slices 21 through 24. Mild generalized cerebral volume loss. There is no midline shift. No intra or extra-axial mass or hemorrhage is identified. The peng-white matter junction is normal. The ventricles are normal in size shape and location. No soft tissue abnormality seen. Visible sinuses and orbits are normal. No osseous destructive lesion. Impression: No acute intracranial process per unenhanced CT ATTESTATION STATEMENT: The Staff Radiologist has personally reviewed the images and dictated, reviewed, or edited the final report. READING SITE: [facility] Signed (Authenticated, Released) Date-Time: 08/24/2013 [address] Teacher- AHSAN AMADO M.D., Staff Radiologist Dictated By- CARMENZA SAETTELE M.D., Resident Staff Physician- AHSAN AMADO M.D., Staff Radiologist Authenticated By- AHSAN AMADO M.D., Staff Radiologist Performing Organization Address [facility]/State/[facility] [place] Phone Number [id number] documented in this encounter Visit Diagnoses Diagnosis Syncope and collapse documented in this encounter
--- OUTSIDE RECORDS SUMMARY | 2019-03-03 10:43 | XMS REPORT ---
Author Author [facility] Address [address] [place] [address] Care Team Providers Care Sap Technical Architect Name Role Phone [facility] Unavailable PROBLEMS Type Condition ICD9-CM Code VMZ95-TL Code Onset Dates Condition Status SNOMED Code Problem Chronic pain G89.29 Active 00688650 Problem Dyspepsia R10.13 Active 060861671 Problem Allergic rhinitis J30.9 Active 59230662 Problem Essential hypertension I10 Active 36608514 Problem Type 2 diabetes mellitus with other skin ulcer E11.622 Active 70248001 Problem Skin infection L08.9 Active 677907023 Problem Stress incontinence in female N39.3 Active 66050494 Problem 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 Active 45635623 Problem Non-healing skin lesion L98.9 Active 72024836 Problem Ulcer of right lower leg, with unspecified severity L97.919 Active 794249037 Problem Left ventricular enlargement I51.7 Active 893893120 Problem Atrial enlargement, left I51.7 Active 59001142079996 Problem Urinary incontinence R32 Active 802880984 Problem Cough R05 Active 679007200 Problem Anxiety F41.9 Active 77665365 Problem Moderate episode of recurrent major depressive disorder F33.1 Active 477265383 Problem Foot swelling M79.89 Active 174864026 Problem CAD (coronary artery disease) I25.10 Active 78273227 Problem alf 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 Active 583091603 Problem Pulmonary HTN I27.2 Active 74940399 Problem Neuropathy G62.9 Active 389229900 Problem Mixed hyperlipidemia E78.2 Active 091270986 Problem Type 2 diabetes mellitus with other circulatory complications E11.59 Active 53575226 ALLERGIES No Information ENCOUNTERS Encounter Location Date Diagnosis [address] [address] Feb, Essential hypertension I10 [address] [place] [address] Feb, 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 [facility] [place] [address] [address] Feb, Type 2 diabetes mellitus with other circulatory complications E11.59 [facility] [place] [address] [address] Feb, [facility] [place] [address] [address] Feb, Moderate episode of recurrent major depressive disorder F33.1 [facility] [place] [address] [address] Feb, Wheezing R06.2 and Cough R05 [facility] [place] [address] [address] Jan, 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 [facility] [place] [address] [address] Jan, [facility] [place] [address] [address] Jan, Wheezing R06.2 and Cough R05 [facility] [place] [address] [address] Jan, Cough R05 ; Bronchitis J40 ; Wheezing R06.2 ; Unspecified superficial injury of left lesser toe(s), subsequent encounter S90.935D and Type 2 diabetes mellitus with other circulatory complications E11.59 [facility] [place] [address] [address] Jan, [facility] [place] [address] [address] December, [facility] [place] [address] [address] December, [facility] [place] [address] [address] December, Encounter for removal of sutures Z48.02 [facility] [place] [address] [address] December, 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 [address] December, [address] [address] December, Infection of toe L08.[address] [address] December, [facility] [address] [address] December, 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 ; 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[address] [address] Nov, Breast lump N63.[address] [address] Nov, [address] [address] Nov, Mixed hyperlipidemia E78.2 ; Essential hypertension I10 and 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 [address] Nov, Essential hypertension I10 ; Breast cancer screening Z12.31 ; alf 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 ; Mixed hyperlipidemia E78.2 ; Dysuria R30.0 and Type 2 diabetes mellitus with other circulatory complications E11.59 [facility] [address] [address] 06 May, 2017 [facility] [address] [address] 13 Apr, 2017 [facility] [address] [address] 11 Apr, 2017 Essential hypertension I10 and 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 [facility] [address] [address] Mar, [facility] [id number] [address] Feb, Onychomycosis B35.1 ; Neuropathy G62.9 and 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 [facility] [address] [address] Feb, [facility] [address] [address] December, [facility] [address] [address] December, Herpes zoster without complication B02.9 ; Onychia of toe of left foot L03.032 ; Ingrowing toenail with infection L60.0 and 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 [facility] [address] [address] December, [facility] [address] [place] [id number] [address] Nov, [facility] [address] [address] Oct, 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 [facility] [id number] [address] Oct, Essential hypertension I10 and 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 [facility] [address] [place] [address] Sep, 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 ; Type 2 diabetes mellitus with other skin ulcer E11.622 ; Chronic pain G89.29 ; Anxiety F41.9 ; Essential hypertension I10 ; Hypoxia R09.02 ; Atrial enlargement, left I51.7 and Left ventricular enlargement I51.7 [place] [id number] [place] [address] Sep, [facility] [id number] [place] [address] Aug, [place] [id number] [place] [address] Jul, [place] [id number] [place] [address] Jul, [place] [id number] [place] [address] Jul, CAD (coronary artery disease) I25.10 ; Essential hypertension I10 ; Pulmonary HTN I27.2 ; Atrial enlargement, left I51.7 and Left ventricular enlargement I51.7 [place] [id number] [place] [address] 14 Jun, 2016 [place] [id number] [place] [address] Jun, [place] [id number] [place] [address] Jun, [place] [id number] [place] [address] Jun, [facility] [id number] [place] [address] Jun, 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 ; Type 2 diabetes mellitus with other skin ulcer E11.622 ; Chronic pain G89.29 ; Anxiety F41.9 ; Essential hypertension I10 ; Ulcer of right lower leg, with unspecified severity L97.919 ; Pulmonary HTN I27.2 ; Hypoxia R09.02 ; Atrial enlargement, left I51.7 and Left ventricular enlargement I51.7 [place] [address] [address] May, [place] [id number] [place] [address] 08 Apr, 2016 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 ; Type 2 diabetes mellitus with other skin ulcer E11.622 ; Chronic pain G89.29 ; Anxiety F41.9 ; Cough R05 ; Essential hypertension I10 and Ulcer of right lower leg, with unspecified severity L97.919 [place] [id number] [place] [address] Mar, 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 ; Chronic pain G89.29 ; Anxiety F41.9 ; Type 2 diabetes mellitus with other skin ulcer E11.622 ; Cough R05 ; Essential hypertension I10 and Ulcer of right lower leg, with unspecified severity L97.919 [place] [id number] [place] [address] Feb, [place] [id number] [place] [address] Feb, 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 ; Chronic pain G89.29 ; Anxiety F41.9 ; Type 2 diabetes mellitus with other skin ulcer E11.622 ; Cough R05 and Essential hypertension I10 [place] [id number] [place] [address] Jan, Chronic pain G89.29 ; Anxiety F41.9 and Foot swelling M79.89 [place] [id number] [place] [address] December, Chronic pain G89.29 ; Anxiety F41.9 and Stress incontinence in female N39.3 [place] [address] [address] December, [facility] [id number] [place] [address] Nov, [facility] [id number] [place] [address] Nov, [facility] [id number] [place] [address] Nov, [facility] [id number] [place] [address] Nov, Chronic pain G89.29 ; Anxiety F41.9 ; Non-healing skin lesion L98.9 and Type 2 diabetes mellitus with other skin ulcer E11.622 [facility] [id number] [place] [address] Nov, 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 [facility] [id number] [address] Nov, [facility] [id number] [place] [address] Nov, [facility] [id number] [place] [address] Nov, [facility] [address] [place] [address] Nov, [facility] [address] [place] [address] Nov, 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 [facility] [id number] [place] [address] Oct, 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 ; Essential hypertension I10 ; Chronic pain G89.29 ; Anxiety F41.9 and Skin infection L08.9 [facility] [id number] [place] [address] Oct, [place] [address] [place] [address] Sep, [place] [id number] [place] [address] Sep, 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 ; Chronic pain G89.29 ; Anxiety F41.9 and Allergic rhinitis J30.9 [place] [id number] [place] [address] Aug, 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 ; Chronic pain G89.29 ; Anxiety F41.9 and Allergic rhinitis J30.9 [place] [id number] [place] [address] Jul, [place] [id number] [place] [address] Jul, 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 ; Dyspepsia R10.13 ; Essential hypertension I10 ; alf 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 ; CAD (coronary artery disease) I25.10 ; Chronic pain G89.29 ; Anxiety F41.9 ; Dysuria R30.0 and Pain of left lower leg M79.662 [place] [id number] [place] [address] Jul, [place] [id number] [place] [address] Jun, 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 and 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 [place] [address] [address] Jun, [place] [id number] [place] [address] Jun, Neuropathy G62.9 ; Arthritis M19.90 ; Leg cramps R25.2 and Anxiety F41.9 [place] [address] [address] May, [facility] [id number] [place] [address] May, [facility] [address] [address] 15 May, 2015 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 [facility] [id number] [place] [address] May, [facility] [id number] [place] [address] 29 Apr, 2015 [facility] [id number] [place] [address] 21 Apr, 2015 [facility] [id number] [place] [address] 17 Apr, 2015 [facility] [id number] [place] [address] 14 Apr, 2015 [facility] [address] [place] [address] 10 Apr, 2015 [facility] [address] [address] Apr, [facility] [address] [address] 03 Apr, 2015 Diabetes with renal manifestations, type II or unspecified type, uncontrolled 250.42 ; Coronary atherosclerosis of unspecified type of vessel, [place] or graft 414.00 ; Polyneuropathy in diabetes 357.2 ; Hypertension 401.9 ; Anxiety 300.00 ; GERD (gastroesophageal reflux disease) 530.81 and Type 2 diabetes mellitus with pressure callus 250.80 [facility] [address], [place] [address] Mar, [facility] [address] [address] Mar, [facility] [address], [place] [address] Mar, [facility] [id number] [place] [address] Mar, [facility] [id number] [place] [address] Mar, Diabetes with renal manifestations, type II or unspecified type, uncontrolled 250.42 ; Coronary atherosclerosis of unspecified type of vessel, [place] or graft 414.00 ; Polyneuropathy in diabetes 357.2 ; Hypertension 401.9 and Anxiety 300.00 [facility] [id number] [place] [address] Mar, Routine gynecological examination V72.31 ; Breast cancer screening V76.10 ; Recurrent urinary tract infection 599.0 ; Mastodynia 611.71 and Tobacco abuse 305.1 [facility] [id number] [place] [address] Feb, [facility] [id number] [place] [address] Jan, [facility] [id number] [place] [address] Jan, [facility] [id number] [place] [address] Jan, [facility] [id number] [place] [address] Jan, [facility] [address] [place] [address] December, [facility] [id number] [place] [address] December, [facility] [id number] [place] [address] Nov, [facility] [id number] [place] [address] Nov, [facility] [place] [facility] [address] [id number] [place] [address] 13 Nov, 2014 [facility] [place] [facility] [address] [id number] [place] [address] 19 Oct, 2014 [facility] [place] [facility] [address] [id number] [place] [address] 19 Oct, 2014 [facility] [place] [facility] [address] [id number] [place] [address] 16 Oct, 2014 [facility] [place] [facility] [address] [id number] [place] [address] 16 Oct, 2014 [facility] [place] [facility] [address] [id number] [place] [address] 16 Oct, 2014 [facility] [place] [facility] [address] [id number] [place] [address] 16 Oct, 2014 [facility] [place] [facility] [address] [id number] [place] [address] 16 Oct, 2014 [facility] [place] [facility] [address] [id number] [place] [address] 16 Oct, 2014 [facility] [place] [facility] [address] [id number] [place] [address] 16 Oct, 2014 [facility] [place] [facility] [address] [id number] [place] [address] 16 Oct, 2014 [facility] [place] [facility] [address] [id number] [place] [address] 16 Oct, 2014 [facility] [place] [facility] [address] [id number] [place] [address] 16 Oct, 2014 [facility] [place] [facility] [address] [id number] [place] [address] 04 Oct, 2014 [facility] [place] [facility] [address] [id number] [place] [address] 04 Oct, 2014 [facility] [place] [facility] [address] [id number] [place] [address] Oct, 2014 [facility] [place] [facility] [address] [id number] [place] [address] Oct, 2014 [facility] [place] [facility] [address] [id number] [place] [address] Oct, 2014 [facility] [place] [facility] [address] [facility] [id number] [place] [address] Oct, 2014 [facility] [place] [facility] [address] [id number] [place] [address] Sep, 2014 [facility] [place] [facility] [address] [id number] [place] [address] Sep, 2014 [facility] [place] [facility] [address] [facility] [id number] [place] [address] Sep, 2014 [facility] [place] [facility] [address] [facility] [id number] [place] [address] Sep, 2014 [facility] [place] [facility] [address] [facility] [id number] [place] [address] Sep, 2014 [facility] [place] [facility] [address] [facility] [id number] [place] [address] Sep, 2014 [facility] [place] [facility] [address] [facility] [id number] [place] [address] Sep, 2014 [facility] [place] [facility] [address] [facility] [id number] [place] [address] Sep, 2014 [facility] [place] [facility] [address] [facility] [id number] [place] [address] 17 Sep, 2014 [facility] [place] [facility] [address] [facility] [id number] [place] [address] 17 Sep, 2014 [facility] [place] [facility] [address] [facility] [id number] [place] [address] 05 Sep, 2014 [facility] [place] [facility] [address] [facility] [id number] [place] [address] Sep, [facility] [place] [facility] [address] [id number] [place] [address] Sep, [facility] [place] [facility] [address] [id number] [place] [address] Sep, [facility] [place] [facility] [address] [id number] [place] [address] Sep, [facility] [place] [facility] [address] [id number] [place] [address] Aug, [facility] [place] [facility] [address] [id number] [place] [address] Aug, [facility] [place] [facility] [address] [id number] [place] [address] Aug, [facility] [place] [facility] [address] [id number] [place] [address] Aug, [facility] [place] [facility] [address] [id number] [place] [address] Aug, [facility] [place] [facility] [address] [id number] [place] [address] Aug, [facility] [place] [facility] [address] [id number] [place] [address] Aug, [facility] [place] [facility] [address] [id number] [address] Aug, [facility] [place] [facility] [address] [id number] [address] Aug, [facility] [place] [facility] [address] [id number] [place] [address] Aug, [facility] [place] [facility] [address] [id number] [place] [address] Aug, [facility] [place] [facility] [address] [id number] [place] [address] Aug, [facility] [place] [facility] [address] [id number] [place] [address] Aug, [facility] [address] [id number] [place] [address] Jul, [facility] [place] [facility] [address] [id number] [place] [address] Jul, [facility] [place] [facility] [address] [id number] [place] [address] Jul, [facility] [place] [facility] [address] [id number] [place] [address] Jul, [facility] [place] [facility] [address] [id number] [place] [address] Jul, [facility] [place] [facility] [address] [id number] [place] [address] Jul, [facility] [place] [facility] [address] [id number] [place] [address] Jul, [facility] [place] [facility] [address] [id number] [place] [address] Jul, [facility] [place] [facility] [address] [id number] [place] [address] Jun, [facility] [place] [facility] [address] [id number] [place] [address] Jun, [facility] [place] [facility] [address] [id number] [place] [address] Jun, [facility] [place] [facility] [address] [id number] [place] [address] Jun, [facility] [place] [facility] [address] [id number] [place] [address] Jun, [facility] [place] [facility] [address] [id number] [place] [address] Jun, [facility] [place] [facility] [address] [id number] [place] [address] Jun, [facility] [place] [facility] [address] [id number] [place] [address] Jun, [facility] [place] [facility] [address] [id number] [place] [address] Jun, [facility] [place] [facility] [address] [id number] [place] [address] Jun, [facility] [place] [facility] [address] [id number] [place] [address] Jun, [facility] [place] [facility] [address] [id number] [place] [address] Jun, [facility] [place] [facility] [address] [id number] [place] [address] Jun, [facility] [place] [facility] [address] [id number] [place] [address] Jun, [facility] [place] [facility] [address] [id number] [place] [address] Jun, [facility] [place] [facility] [address] [id number] [place] [address] Jun, [facility] [place] [facility] [address] [id number] [place] [address] May, [facility] [place] [facility] [address] [id number] [place] [address] May, [facility] [place] [facility] [address] [id number] [address] May, [facility] [place] [facility] [address] [id number] [place] [address] May, [facility] [place] [facility] [address] [id number], [place] [address] May, [facility] [place] [facility] [address] [id number][place] [address] May, [facility] [facility] [address] [id number] [address] May, [facility] [place] [facility] [address] [id number] [place] [address] May, [facility] [place] [facility] [address] [id number] [place] [address] May, [facility] [place] [facility] [address] [id number] [place] [address] Apr, [facility] [place] [facility] [address] [id number] [place] [address] Apr, [facility] [place] [facility] [address] [id number] [place] [address] Apr, [facility] [place] [facility] [address] [id number] [place] [address] Apr, [facility] [place] [facility] [address] [id number] [place] [address] Mar, [facility] [place] [address] [id number] [place] [address] Mar, [facility] [place] [facility] [address] [id number] [place] [address] Mar, [facility] [place] [facility] [address] [id number] [place] [address] Mar, [facility] [place] [address] [id number] [place] [address] Feb, [facility] [place] [facility] [address] [id number] [place] [address] Feb, [facility] [place] [facility] [address] [id number] [place] [address] Jan, [facility] [place] [address] [id number] [place] [address] Jan, [facility] [place] [address] [id number] [place] [address] Jan, [facility] [place] [address] [id number] [place] [address] Jan, [facility] [place] [address] [id number] [place] [address] Jan, [facility] [place] [facility] [address] [id number] [place] [address] Jan, [facility] [place] [facility] [address] [id number] [place] [address] Jan, [facility] [place] [address] [id number] [place] [address] Jan, [facility] [place] [address] [id number] [place] [address] Jan, [facility] [address] [id number] [place] [address] Jan, [facility] [address] [id number] [place] [address] Jan, [facility] [address] [id number] [place] [address] Jan, [facility] [address] [id number] [place] [address] Jan, [facility] [address] [id number] [place] [address] December, [facility] [address] [id number] [place] [address] December, [facility] [address] [id number] [place] [address] December, [facility] [place] [address] [id number] [place] [address] December, [facility] [address] [id number] [place] [address] December, [facility] [facility] [address] [id number] [place] [address] Nov, [facility] [place] [facility] [address] [id number] [place] [address] Nov, [facility] [address] [id number] [place] [address] Nov, [facility] [place] [address] [id number] [place] [address] Nov, [facility] [address] [id number] [place] [address] Nov, [facility] [address] [id number] [place] [address] Nov, [facility] [place] [facility] [address] [id number] [place] [address] Nov, [facility] [facility] [address] [id number] [place] [address] Nov, [facility] [address] [id number] [place] [address] Nov, [facility] [address] [id number] [place] [address] Nov, [facility] [address] [id number][place] [address] Jun, [facility] [address] [id number][place] [address] Jun, [facility] [address] [id number], [place] [address] May, [facility] [address] [id number] [place] [address] May, [facility] [address] [id number] [place] [address] May, [facility] [address] [id number] [place] [address] May, [facility] [address] [id number] [place] [address] May, [facility] [address] [id number] [place] [address] May, [facility] [address] [id number] [place] [address] May, [facility] [address] [id number] [place] [address] May, [facility] [address] [id number] [place] [address] May, [facility] [address] [id number] [place] [address] 25 Apr, 2012 [facility] [address] [id number] [place] [address] 25 Apr, 2011 [facility] [address] [id number] [place] [address] 25 Apr, 2011 [facility] [address] [id number] [place] [address] 21 Apr, 2011 [facility] [address] [id number] [place] [address] 20 Apr, 2012 [facility] [address] [facility] [id number] [place] [address] 19 Apr, 2011 [facility] [address] [id number] [place] [address] 05 Sep, 2011 [facility] [address] [id number] [place] [address] 04 Apr, 2012 [facility] [address] [id number] [place] [address] 28 Mar, 2012 [facility] [address] [id number] [place] [address] 27 Mar, 2012 [facility] [address] [facility] [id number] [place] [address] 16 Mar, 2012 [facility] [address] [id number] [place] [address] Mar, [facility] [address] [id number] [place] [address] Mar, [facility] [address] [facility] [id number] Mar, [facility] [address] [id number] [place] [address] Mar, [facility] [address] [id number] [place] [address] Feb, [facility] [address] [id number] [place] [address] Feb, [facility] [address] [id number] [place] [address] Feb, [facility] [address] [id number] [place] [address] Feb, [facility] [address] [id number] [place] [address] Feb, [facility] [address] [id number] [place] [address] Feb, [facility] [address] [id number] [place] [address] Jan, [facility] [address] [id number] [place] [address] Jan, [facility] [address] [id number] [place] [address] Jan, [facility] [address] [id number] [place] [address] Jan, [facility] [address] [id number] [place] [address] Jan, [facility] [address] [id number] [place] [address] Jan, [facility] [address] [id number] [place] [address] Jan, [facility] [address] [id number] [place] [address] December, [facility] [address] [id number] [place] [address] December, [facility] [address] [id number] [place] [address] December, [facility] [address] [id number] [place] [address] Nov, [facility] [address] [id number] [place] [address] Nov, [facility] [address] [id number] [place] [address] Nov, [facility] [address] [id number] [place] [address] Nov, [facility] [address] [id number] [place] [address] Nov, [facility] [address] [id number] [place] [address] 18 Nov, 2011 [facility] [address] [id number] [place] [address] 17 Nov, 2011 [facility] [address] [id number] [place] [address] 13 Nov, 2011 [facility] [address] [id number] [place] [address] Oct, [facility] [address] [id number] [place] [address] Oct, [facility] [address] [id number] [place] [address] 05 Oct, 2011 [facility] [address] [id number], [place] [address] Oct, [facility] [address] [id number] [place] [address] Sep, [facility] [address] [id number] [place] [address] Sep, [facility] [address] [id number] [place] [address] Sep, [facility] [address] [id number] [place] [address] Aug, [facility] [address] [id number] [place] [address] Aug, [facility] [address] [id number] [place] [address] Aug, [facility] [address] [facility] [id number] [place] [address] Aug, [facility] [address] [id number] [place] [address] Jul, [facility] [address] [id number] [place] [address] Jul, [facility] [address] [facility] [id number] [place] [address] Jul, [facility] [address] [id number] [place] [address] 30 Jun, 2011 [facility] [address] [id number] [place] [address] Jun, [facility] [address] [id number] [place] [address] 15 Jun, 2011 [facility] [address] [id number] [place] [address] 14 Jun, 2011 [facility] [address] [facility] [id number] [place] [address] 14 Jun, 2011 [facility] [address] [facility] [id number], [place] [address] Jun, [facility] [address] [id number] [address] May, [facility] [address] [id number] [address] May, [facility] [address] [facility] [id number], [place] [address] May, [facility] [address] [facility] [id number], [place] [address] Apr, [facility] [address] [id number] [address] Mar, [facility] [address] [facility] [id number], [place] [address] Aug, IMMUNIZATIONS No Known Immunizations SOCIAL HISTORY Never Assessed REASON FOR VISIT PLAN OF CARE VITAL SIGNS MEDICATIONS Unknown Medications RESULTS No Results PROCEDURES No Known procedures INSTRUCTIONS MEDICATIONS ADMINISTERED No Known Medications MEDICAL (GENERAL) HISTORY Type Description Date Medical History type II diabetes-dx in 1995 Medical History stroke-12/2011-[facility] History cardiovascular disorder-CAD Medical History hyperlipidemia Medical History hypertension Medical History Diabetes with renal manifestations, type II or unspecified type, uncontrolled Medical History 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 Discharged 06/27/17 06/25/17
--- OUTSIDE RECORDS SUMMARY | 2019-03-03 10:44 | XMS REPORT ---
Author Author ALBIN RENAE [facility] Address [address] [place] [address] Care Team Providers Care A P Manager Name Role Phone ALBIN RENAE Unavailable PROBLEMS Type Condition ICD9-CM Code WOR30-AO Code Onset Dates Condition Status SNOMED Code Problem Chronic pain G89.29 Active 55453818 Problem Dyspepsia R10.13 Active 511252389 Problem Allergic rhinitis J30.9 Active 72599511 Problem Essential hypertension I10 Active 38167251 Problem Type 2 diabetes mellitus with other skin ulcer E11.622 Active 05304979 Problem Skin infection L08.9 Active 414049358 Problem Stress incontinence in female N39.3 Active 18722346 Problem 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 Active 91369695 Problem Non-healing skin lesion L98.9 Active 08085982 Problem Ulcer of right lower leg, with unspecified severity L97.919 Active 126483923 Problem Left ventricular enlargement I51.7 Active 085964440 Problem Atrial enlargement, left I51.7 Active 69405133640026 Problem Urinary incontinence R32 Active 795593363 Problem Cough R05 Active 068667763 Problem Anxiety F41.9 Active 20265255 Problem Moderate episode of recurrent major depressive disorder F33.1 Active 344499471 Problem Foot swelling M79.89 Active 386113303 Problem CAD (coronary artery disease) I25.10 Active 59432363 Problem FDC 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 Active 416368395 Problem Pulmonary HTN I27.2 Active 48089454 Problem Neuropathy G62.9 Active 802642287 Problem Mixed hyperlipidemia E78.2 Active 852578881 Problem Type 2 diabetes mellitus with other circulatory complications E11.59 Active 30126866 ALLERGIES No Information ENCOUNTERS Encounter Location Date Diagnosis [address] [address] Feb, Essential hypertension I10 [address] [place] [address] Feb, 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 [facility] [address] [address] Feb, Type 2 diabetes mellitus with other circulatory complications E11.59 [facility] [address] [place] [address] Feb, [facility] [place] [address] [address] Feb, Moderate episode of recurrent major depressive disorder F33.1 [facility] [place] [address] [place] [address] Feb, Wheezing R06.2 and Cough R05 [facility] [place] [address] [address] Jan, 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 [facility] [place] [address] [place] [address] Jan, [facility] [place] [address] [address] Jan, Wheezing R06.2 and Cough R05 [facility] [place] [address] [address] Jan, Cough R05 ; Bronchitis J40 ; Wheezing R06.2 ; Unspecified superficial injury of left lesser toe(s), subsequent encounter S90.935D and Type 2 diabetes mellitus with other circulatory complications E11.59 [facility] [place] [address] [address] Jan, [facility] [place] [address] [address] December, [facility] [place] [address] [address] December, [facility] [place] [address] [address] December, Encounter for removal of sutures Z48.02 [facility] [place] [address] [address] December, 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 [facility] [address] [address] December, [address] [address] December, Infection of toe L08.[address] [address] December, [facility] [place] [address] [address] December, 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 ; 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 ; Urinary incontinence R32 and Type 2 diabetes mellitus with other circulatory complications E11.59 [facility] [place] [address], [place] [address] December, Essential hypertension I10 ; Type 2 diabetes mellitus with other circulatory complications E11.59 and Dizziness R42 [place] [address] [address] December, Dizziness R42 ; Essential hypertension I10 and Type 2 diabetes mellitus with other circulatory complications E11.[address] [address] Nov, Breast lump N63.[address] [address] Nov, Breast lump N63.[address] [address] Nov, Breast lump N63.[address] [address] Nov, [address] [address] Nov, Mixed hyperlipidemia E78.2 ; Essential hypertension I10 and [facility]DC 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 [address] Nov, Essential hypertension I10 ; Breast cancer screening Z12.31 ; [facility]DC 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 ; Mixed hyperlipidemia E78.2 ; Dysuria R30.0 and Type 2 diabetes mellitus with other circulatory complications E11.59 [facility] [place] [id number], [place] [address] 06 May, 2017 [facility] [place] [address] [address] 13 Apr, 2017 [facility] [place] [id number] [address] 11 Apr, 2017 Essential hypertension I10 and 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 [facility] [place] [address], [place] [address] Mar, [place] [address] [place] [address] Feb, Onychomycosis B35.1 ; Neuropathy G62.9 and 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 [place] [address], [place] [address] Feb, [facility] [place] [address], [place] [address] December, [facility] [place] [address], [place] [address] December, Herpes zoster without complication B02.9 ; Onychia of toe of left foot L03.032 ; Ingrowing toenail with infection L60.0 and 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 [facility] [place] [id number], [place] [address] December, [facility] [place] [id number] [address] Nov, [facility] [place] [address], [place] [address] Oct, 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 [facility] [place] [id number], [place] [address] Oct, Essential hypertension I10 and 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 [facility] [place] [id number] [place] [address] Sep, 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 ; Type 2 diabetes mellitus with other skin ulcer E11.622 ; Chronic pain G89.29 ; Anxiety F41.9 ; Essential hypertension I10 ; Hypoxia R09.02 ; Atrial enlargement, left I51.7 and Left ventricular enlargement I51.7 [place] [id number] [place] [address] Sep, [facility] [place] [id number] [place] [address] Aug, [place] [id number] [place] [address] Jul, [place] [id number] [place] [address] Jul, [facility] [place] [id number] [place] [address] Jul, CAD (coronary artery disease) I25.10 ; Essential hypertension I10 ; Pulmonary HTN I27.2 ; Atrial enlargement, left I51.7 and Left ventricular enlargement I51.7 [place] [id number] [place] [address] Jun, [facility] [place] [id number] [place] [address] Jun, [facility] [place] [address] [place] [address] Jun, [place] [id number] [place] [address] Jun, [facility] [place] [id number] [place] [address] Jun, 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 ; Type 2 diabetes mellitus with other skin ulcer E11.622 ; Chronic pain G89.29 ; Anxiety F41.9 ; Essential hypertension I10 ; Ulcer of right lower leg, with unspecified severity L97.919 ; Pulmonary HTN I27.2 ; Hypoxia R09.02 ; Atrial enlargement, left I51.7 and Left ventricular enlargement I51.7 [place] [id number] [place] [address] May, [place] [address] [address] 08 Apr, 2016 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 ; Type 2 diabetes mellitus with other skin ulcer E11.622 ; Chronic pain G89.29 ; Anxiety F41.9 ; Cough R05 ; Essential hypertension I10 and Ulcer of right lower leg, with unspecified severity L97.919 [place] [id number] [place] [address] Mar, 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 ; Chronic pain G89.29 ; Anxiety F41.9 ; Type 2 diabetes mellitus with other skin ulcer E11.622 ; Cough R05 ; Essential hypertension I10 and Ulcer of right lower leg, with unspecified severity L97.919 [place] [id number] [place] [address] Feb, [place] [id number] [place] [address] Feb, 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 ; Chronic pain G89.29 ; Anxiety F41.9 ; Type 2 diabetes mellitus with other skin ulcer E11.622 ; Cough R05 and Essential hypertension I10 [place] [id number] [place] [address] Jan, Chronic pain G89.29 ; Anxiety F41.9 and Foot swelling M79.89 [place] [id number] [place] [address] December, Chronic pain G89.29 ; Anxiety F41.9 and Stress incontinence in female N39.3 [facility] [place] [address], [place] [address] December, [facility] [place] [id number] [place] [address] Nov, [facility] [place] [id number] [place] [address] Nov, [facility] [place] [id number] [place] [address] Nov, [facility] [place] [id number] [place] [address] Nov, Chronic pain G89.29 ; Anxiety F41.9 ; Non-healing skin lesion L98.9 and Type 2 diabetes mellitus with other skin ulcer E11.622 [facility] [place] [id number] [place] [address] Nov, 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 [facility] [place] [address] [place] [address] Nov, [facility] [place] [id number] [place] [address] Nov, [facility] [place] [address] [place] [address] Nov, [facility] [place] [address], [place] [address] Nov, [facility] [place] [address] [place] [address] Nov, 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 [facility] [place] [id number] [place] [address] Oct, 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 ; Essential hypertension I10 ; Chronic pain G89.29 ; Anxiety F41.9 and Skin infection L08.9 [facility] [place] [id number] [place] [address] 10 Oct, 2015 [place] [id number] [place] [address] Sep, [place] [address] [address] Sep, 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 ; Chronic pain G89.29 ; Anxiety F41.9 and Allergic rhinitis J30.9 [place] [address] [address] Aug, 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 ; Chronic pain G89.29 ; Anxiety F41.9 and Allergic rhinitis J30.9 [place] [id number] [place] [address] Jul, [place] [address] [address] Jul, 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 ; Dyspepsia R10.13 ; Essential hypertension I10 ; 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 ; CAD (coronary artery disease) I25.10 ; Chronic pain G89.29 ; Anxiety F41.9 ; Dysuria R30.0 and Pain of left lower leg M79.662 [place] [id number] [place] [address] Jul, [place] [id number] [place] [address] Jun, 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 and 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 [place] [address] [address] Jun, [place] [id number] [place] [address] Jun, Neuropathy G62.9 ; Arthritis M19.90 ; Leg cramps R25.2 and Anxiety F41.9 [facility] [place] [id number] [place] [address] May, [facility], [place] [id number] [place] [address] May, [facility], [place] [id number] [place] [address] May, 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 [facility] [place] [address] [address] May, [facility] [place] [id number] [place] [address] 29 Apr, 2015 [facility] [place] [id number] [place] [address] 21 Apr, 2015 [facility] [place] [address] [address] 17 Apr, 2015 [facility] [place] [id number] [place] [address] 14 Apr, 2015 [facility], [place] [id number] [place] [address] Apr, [facility], [place] [id number] [place] [address] Apr, [facility], [place] [id number] [place] [address] Apr, Diabetes with renal manifestations, type II or unspecified type, uncontrolled 250.42 ; Coronary atherosclerosis of unspecified type of vessel, wrangell or graft 414.00 ; Polyneuropathy in diabetes 357.2 ; Hypertension 401.9 ; Anxiety 300.00 ; GERD (gastroesophageal reflux disease) 530.81 and Type 2 diabetes mellitus with pressure callus 250.80 [facility] [place] [id number] [place] [address] Mar, [facility], [place] [id number] [place] [address] Mar, [facility], [place] [address], [place] [address] Mar, [facility] [place] [id number] [place] [address] Mar, [facility], [place] [id number] [place] [address] Mar, Diabetes with renal manifestations, type II or unspecified type, uncontrolled 250.42 ; Coronary atherosclerosis of unspecified type of vessel, wrangell or graft 414.00 ; Polyneuropathy in diabetes 357.2 ; Hypertension 401.9 and Anxiety 300.00 [facility] [place] [id number] [place] [address] Mar, Routine gynecological examination V72.31 ; Breast cancer screening V76.10 ; Recurrent urinary tract infection 599.0 ; Mastodynia 611.71 and Tobacco abuse 305.1 [facility] [place] [id number] [place] [address] Feb, [facility] [place] [id number] [place] [address] Jan, [facility] [place] [id number] [place] [address] Jan, [facility], [place] [id number] [place] [address] Jan, [facility], [place] [id number] [place] [address] Jan, [facility] [place] [address] [place] [address] December, [facility] [place] [id number] [place] [address] December, [facility] [place] [address] [place] [address] Nov, [facility] [place] [id number] [place] [address] 14 Nov, 2014 [facility] [place] [facility] [address] [id number] [place] [address] 13 Nov, 2014 [facility] [place] [facility] [address] [id number] [place] [address] 19 Oct, 2014 [facility] [place] [facility] [address] [id number] [place] [address] 19 Oct, 2014 [facility] [place] [facility] [address] [id number] [place] [address] 16 Oct, 2014 [facility] [place] [facility] [address] [id number] [place] [address] 16 Oct, 2014 [facility] [place] [facility] [address] [id number] [place] [address] 16 Oct, 2014 [facility] [place] [facility] [address] [id number] [place] [address] 16 Oct, 2014 [facility] [place] [facility] [address] [id number] [place] [address] 16 Oct, 2014 [facility] [place] [facility] [address] [id number] [place] [address] 16 Oct, 2014 [facility] [place] [facility] [address] [id number] [place] [address] 16 Oct, 2014 [facility] [place] [facility] [address] [id number] [place] [address] 16 Oct, 2014 [facility] [place] [facility] [address] [id number] [address] 16 Oct, 2014 [facility] [place] [facility] [address] [id number] [place] [address] 16 Oct, 2014 [facility] [place] [facility] [address] [id number] [place] [address] 04 Oct, 2014 [facility] [place] [facility] [address] [id number] [place] [address] 04 Oct, 2014 [facility] [place] [facility] [address] [id number] [place] [address] Oct, 2014 [facility] [place] [facility] [address] [id number] [place] [address] Oct, 2014 [facility] [place] [facility] [address] [facility] [id number] [place] [address] Oct, 2014 [facility] [place] [facility] [address] [facility] [id number] [place] [address] Oct, 2014 [facility] [place] [facility] [address] [id number] [place] [address] Sep, 2014 [facility] [place] [facility] [address] [id number] [place] [address] Sep, 2014 [facility] [place] [facility] [address] [facility] [id number] [place] [address] Sep, 2014 [facility] [place] [facility] [address] [facility] [id number] [place] [address] Sep, 2014 [facility] [place] [facility] [address] [facility] [id number] [place] [address] Sep, 2014 [facility] [place] [facility] [address] [facility] [id number] [place] [address] Sep, 2014 [facility] [place] [facility] [address] [facility] [id number] [place] [address] Sep, 2014 [facility] [place] [facility] [address] [facility] [id number] [place] [address] Sep, 2014 [facility] [place] [facility] [address] [facility] [id number] [place] [address] 17 Sep, 2014 [facility] [place] [facility] [address] [facility] [id number] [place] [address] Sep, 2014 [facility] [place] [facility] [address] [facility] [id number] [place] [address] 05 Sep, 2014 [facility] [place] [facility] [address] [facility] [id number] [place] [address] Sep, [facility] [place] [facility] [address] [id number] [place] [address] Sep, [facility] [place] [facility] [address] [id number] [place] [address] Sep, [facility] [place] [facility] [address] [id number] [place] [address] Sep, [facility] [place] [facility] [address] [id number] [place] [address] Aug, [facility] [place] [facility] [address] [id number] [place] [address] Aug, [facility] [place] [facility] [address] [id number] [place] [address] Aug, [facility] [place] [facility] [address] [id number] [place] [address] Aug, [facility] [place] [facility] [address] [id number] [place] [address] Aug, [facility] [place] [facility] [address] [id number] [place] [address] Aug, [facility] [place] [facility] [address] [id number] [place] [address] Aug, [facility] [place] [facility] [address] [id number], [place] [address] Aug, [facility] [place] [facility] [address] [id number], [place] [address] Aug, [facility] [place] [facility] [address] [id number], [place] [address] Aug, [facility] [place] [facility] [address] [id number], [place] [address] Aug, [facility] [place] [facility] [address] [id number] [place] [address] Aug, [facility] [place] [facility] [address] [id number] [place] [address] Aug, [facility] [place] [facility] [address] [id number] [place] [address] Jul, [facility] [place] [facility] [address] [id number] [place] [address] Jul, [facility] [place] [facility] [address] [id number] [place] [address] Jul, [facility] [place] [facility] [address] [id number] [place] [address] Jul, [facility] [place] [facility] [address] [id number] [place] [address] Jul, [facility] [place] [facility] [address] [id number] [place] [address] Jul, [facility] [place] [facility] [address] [id number] [place] [address] Jul, [facility] [place] [facility] [address] [id number] [place] [address] Jul, [facility] [place] [facility] [address] [id number] [place] [address] Jun, [facility] [place] [facility] [address] [id number] [place] [address] Jun, [facility] [place] [facility] [address] [id number] [place] [address] Jun, [facility] [place] [facility] [address] [id number] [place] [address] Jun, [facility] [place] [facility] [address] [id number] [place] [address] Jun, [facility] [facility] [address] [id number] [place] [address] Jun, [facility] [place] [facility] [address] [id number] [place] [address] Jun, [facility] [place] [facility] [address] [id number] [place] [address] Jun, [facility] [place] [facility] [address] [id number] [place] [address] Jun, [facility] [place] [facility] [address] [id number] [place] [address] Jun, [facility] [place] [facility] [address] [id number] [place] [address] Jun, [facility] [place] [facility] [address] [id number] [place] [address] Jun, [facility] [place] [facility] [address] [id number] [place] [address] Jun, [facility] [place] [facility] [address] [id number] [place] [address] Jun, [facility] [place] [facility] [address] [id number], [place] [address] Jun, [facility] [place] [facility] [address] [id number] [place] [address] Jun, [facility] [place] [facility] [address] [id number], [place] [address] May, [facility] [place] [facility] [address] [id number], [place] [address] May, [facility] [facility] [address] [id number], [place] [address] May, [facility] [place] [facility] [address] [id number] [place] [address] May, [facility] [place] [facility] [address] [id number], [place] [address] May, [facility] [place] [facility] [address] [id number], [place] [address] May, [facility] [place] [facility] [address] [id number] [place] [address] 08 May, 2014 [facility] [place] [facility] [address] [id number] [place] [address] May, [facility] [place] [facility] [address] [id number] [place] [address] May, [facility] [place] [facility] [address] [id number] [place] [address] Apr, [facility] [address] [id number] [place] [address] Apr, [facility] [address] [id number] [place] [address] Apr, [facility] [place] [facility] [address] [id number] [place] [address] Apr, [facility] [facility] [address] [id number] [place] [address] Mar, [facility] [place] [facility] [address] [id number] [place] [address] Mar, [facility] [facility] [address] [id number] [place] [address] Mar, [facility] [address] [id number] [place] [address] Mar, [facility] [place] [facility] [address] [id number] [place] [address] Feb, [facility] [address] [id number] [place] [address] Feb, [facility] [address] [id number] [place] [address] Jan, [facility] [address] [id number] [place] [address] Jan, [facility] [address] [id number] [place] [address] Jan, [facility] [address] [id number] [place] [address] Jan, [facility] [address] [id number] [place] [address] Jan, [facility] [address] [id number] [place] [address] Jan, [facility] [address] [id number] [place] [address] Jan, [facility] [address] [id number] [place] [address] Jan, [facility] [address] [id number] [place] [address] Jan, [facility] [address] [id number] [place] [address] Jan, [facility] [address] [id number] [place] [address] Jan, [facility] [address] [id number] [place] [address] Jan, [facility] [address] [id number] [place] [address] Jan, [facility] [address] [id number] [place] [address] December, [facility] [address] [id number] [place] [address] December, [facility] [address] [id number] [place] [address] December, [facility] [address] [id number] [place] [address] December, [facility] [address] [id number] [place] [address] December, [facility] [address] [id number] [place] [address] Nov, [facility] [address] [id number] [place] [address] Nov, [facility] [address] [id number] [place] [address] Nov, [facility] [address] [id number] [place] [address] Nov, [facility] [address] [id number] [place] [address] Nov, [facility] [address] [id number] [place] [address] Nov, [facility] [address] [id number] [place] [address] Nov, [facility] [address] [id number] [place] [address] Nov, [facility] [address] [id number] [place] [address] Nov, [facility] [address] [id number] [place] [address] Nov, [facility] [address] [id number] [place] [address] Jun, [facility] [address] [id number], [place] [address] Jun, [facility] [address] [id number], [place] [address] May, [facility] [address] [id number] [place] [address] May, [facility] [address] [id number] [place] [address] May, [facility] [address] [id number] [place] [address] May, [facility] [address] [id number] [place] [address] May, [facility] [address] [id number] [place] [address] May, [facility] [address] [id number] [place] [address] May, [facility] [address] [id number] [place] [address] May, [facility] [address] [id number] [place] [address] May, [facility] [address] [id number] [place] [address] 25 Apr, 2012 [facility] [address] [id number] [place] [address] 25 Apr, 2011 [facility] [address] [id number] [place] [address] 25 Apr, 2012 [facility] [address] [id number] [place] [address] 21 Apr, 2012 [facility] [address] [id number] [place] [address] 20 Apr, 2012 [facility] [address] [id number] [place] [address] 19 Apr, 2012 [facility] [address] [id number] [place] [address] 05 Apr, 2012 [facility] [address] [id number] [place] [address] 04 Apr, 2012 [facility] [address] [id number] [place] [address] 28 Mar, 2012 [facility] [address] [id number] [place] [address] 27 Mar, 2012 [facility] [address] [id number] [place] [address] Mar, [facility] [address] [id number] [place] [address] Mar, [facility] [address] [id number] [place] [address] Mar, [facility] 1 [facility] [place] [facility] [id number] Mar, [facility] [address] [id number] [place] [address] Mar, [facility] [address] [id number] [place] [address] Feb, [facility] [address] [id number] [place] [address] Feb, [facility] [address] [id number] [place] [address] Feb, [facility] [address] [id number] [place] [address] Feb, [facility] [address] [id number] [place] [address] Feb, [facility] [address] [id number] [place] [address] Feb, [facility] [address] [id number] [place] [address] Jan, [facility] [address] [id number] [place] [address] Jan, [facility] [address] [id number] [place] [address] Jan, [facility] [address] [id number] [place] [address] Jan, [facility] [address] [id number] [place] [address] Jan, [facility] [address] [id number] [place] [address] Jan, [facility] [address] [id number] [place] [address] Jan, [facility] [address] [id number] [place] [address] December, [facility] [address] [id number] [place] [address] December, [facility] [address] [id number] [place] [address] December, [facility] [address] [id number] [place] [address] Nov, [facility] [facility] [address] [id number] [place] [address] Nov, [facility] [address] [id number] [place] [address] Nov, [facility] [address] [id number] [place] [address] Nov, [facility] [facility] [address] [id number] [place] [address] Nov, [facility] [facility] [address] [id number] [place] [address] Nov, [facility] [facility] [address] [id number] [place] [address] 17 Nov, 2011 [facility] [facility] [address] [id number] [place] [address] Nov, [facility] [facility] [address] [id number] [place] [address] Oct, [facility] [facility] [address] [id number] [place] [address] Oct, [facility] [place] [facility] [address] [id number] [place] [address] Oct, [facility] [address] [id number] [place] [address] Oct, [facility] [place] [facility] [address] [id number] [place] [address] Sep, [facility] [facility] [address] [id number] [place] [address] Sep, [facility] [facility] [address] [id number] [place] [address] Sep, [facility] [address] [id number] [place] [address] Aug, [facility] [facility] [address] [id number] [place] [address] Aug, [facility] [address] [id number] [place] [address] Aug, [facility] [facility] [address] [id number] [place] [address] Aug, [facility] [facility] [address] [id number] [place] [address] Jul, [facility] [place] [facility] [address] [id number] [place] [address] Jul, [facility] [place] [facility] [address] [id number] [place] [address] 15 Jul, 2011 [facility] [facility] [address] [id number] [place] [address] 30 Jun, 2011 [facility] [place] [facility] [address] [id number] [place] [address] 22 Jun, 2011 [facility] [place] [facility] [address] [id number] [place] [address] 15 Jun, 2011 [facility] [place] [facility] [address] [id number] [place] [address] 14 Jun, 2011 [facility] [place] [facility] [address] [id number] [place] [address] Jun, [facility] [place] [address] [facility] [id number], [place] [address] Jun, [facility] [place] [address] [id number], [place] [address] May, [facility] [place] [address] [id number], [place] [address] May, [facility] [place] [id number], [place] [address] May, [facility] [place] [address] [id number], [place] [address] Apr, [facility] [place] [address] [id number], [place] [address] Mar, [facility] [place] [address] [id number], [place] [address] Aug, IMMUNIZATIONS No Known Immunizations SOCIAL HISTORY Never Assessed REASON FOR VISIT PLAN OF CARE VITAL SIGNS MEDICATIONS Unknown Medications RESULTS No Results PROCEDURES No Known procedures INSTRUCTIONS MEDICATIONS ADMINISTERED No Known Medications MEDICAL (GENERAL) HISTORY Type Description Date Medical History type II diabetes-dx in 1995 Medical History stroke-12/2011-[facility] Medical History cardiovascular disorder-CAD Medical History hyperlipidemia Medical History hypertension Medical History Diabetes with renal manifestations, type II or unspecified type, uncontrolled Medical History Unspecified late effects of cerebrovascular disease due to cerebrovascular disease Medical History Coronary atherosclerosis of unspecified type of vessel, wrangell or graft Surgical History partial hysterectomy 1991 Surgical History heart cath 2004, 2011 Hospitalization History [place] 2004 Hospitalization History [facility] for pancreatitis 11/2010 Hospitalization History [facility] for a stroke 12/2011 Hospitalization History guih infection-Shira Colby 05/2016 Hospitalization History [facility]- Heart failure, uncontrolled Hyperglycemia. Discharged 06/27/17 06/25/17
--- OUTSIDE RECORDS SUMMARY | 2019-03-03 10:45 | XMS REPORT ---
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 Name Role Phone ALBIN RENAE Unavailable PROBLEMS Type Condition ICD9-CM Code RHM93-MQ Code Onset Dates Condition Status SNOMED Code Problem Chronic pain G89.29 Active 54069773 Problem Dyspepsia R10.13 Active 672582265 Problem Allergic rhinitis J30.9 Active 88079230 Problem Essential hypertension I10 Active 80134155 Problem Type 2 diabetes mellitus with other skin ulcer E11.622 Active 94423496 Problem Skin infection L08.9 Active 879625800 Problem Stress incontinence in female N39.3 Active 70836206 Problem 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 Active 86080875 Problem Non-healing skin lesion L98.9 Active 29973495 Problem Ulcer of right lower leg, with unspecified severity L97.919 Active 688663632 Problem Left ventricular enlargement I51.7 Active 300595681 Problem Atrial enlargement, left I51.7 Active 16078843080710 Problem Urinary incontinence R32 Active 957843669 Problem Cough R05 Active 182282579 Problem Anxiety F41.9 Active 26447752 Problem Moderate episode of recurrent major depressive disorder F33.1 Active 039813039 Problem Foot swelling M79.89 Active 287770272 Problem CAD (coronary artery disease) I25.10 Active 42623251 Problem nursing home 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 Active 943328476 Problem Pulmonary HTN I27.2 Active 91866370 Problem Neuropathy G62.9 Active 294587972 Problem Mixed hyperlipidemia E78.2 Active 854621720 Problem Type 2 diabetes mellitus with other circulatory complications E11.59 Active 59676882 ALLERGIES No Information ENCOUNTERS Encounter Location Date Diagnosis [address] [address] Feb, 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 [facility] [address] [place] [address] Feb, Type 2 diabetes mellitus with other circulatory complications E11.59 [facility] [address] [place] [address] Feb, [facility] [address] [address] Feb, Moderate episode of recurrent major depressive disorder F33.1 [facility] [address] [address] Feb, Wheezing R06.2 and Cough R05 [facility] [address] [address] Jan, 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 [facility] [address] [address] Jan, [facility] [address] [address] Jan, Wheezing R06.2 and Cough R05 [facility] [address] [address] Jan, Cough R05 ; Bronchitis J40 ; Wheezing R06.2 ; Unspecified superficial injury of left lesser toe(s), subsequent encounter S90.935D and Type 2 diabetes mellitus with other circulatory complications E11.59 [facility] [address] [address] Jan, [facility] [address] [address] December, [facility] [address] [address] December, [facility] [address] [address] December, Encounter for removal of sutures Z48.02 [facility] [address] [address] December, 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 [facility] [address] [address] December, [facility] [place] [address] [address] December, Infection of toe L08.[address] [address] December, [place] [address], [place] [address] December, 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 ; manager 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 ; Urinary incontinence R32 and Type 2 diabetes mellitus with other circulatory complications E11.59 [place] [address], [place] [address] December, Essential hypertension I10 ; Type 2 diabetes mellitus with other circulatory complications E11.59 and Dizziness R42 [place] [id number] [place] [address] December, Dizziness R42 ; Essential hypertension I10 and Type 2 diabetes mellitus with other circulatory complications E11.[address] [address] Nov, Breast lump N63.[address] [address] Nov, Breast lump N63.[address] [address] Nov, Breast lump N63.[address] [address] Nov, [address] [address] Nov, Mixed hyperlipidemia E78.2 ; Essential hypertension I10 and manager 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 [address] Nov, Essential hypertension I10 ; Breast cancer screening Z12.31 ; nursing home 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 ; Mixed hyperlipidemia E78.2 ; Dysuria R30.0 and Type 2 diabetes mellitus with other circulatory complications E11.59 [place] [address], [place] [address] May, [facility] [address], [place] [address] Apr, [facility] [address], [place] [address] Apr, Essential hypertension I10 and 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 [facility] [address], [place] [address] Mar, [facility] [address] [place] [id number] [place] [address] Feb, Onychomycosis B35.1 ; Neuropathy G62.9 and 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 [facility] [address], [place] [address] Feb, [place] [address], [place] [address] December, [facility] [address], [place] [address] December, Herpes zoster without complication B02.9 ; Onychia of toe of left foot L03.032 ; Ingrowing toenail with infection L60.0 and 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 [facility] [address], [place] [address] December, [facility] [address], [place] [address] Nov, [facility] [address] [place] [id number] [address] Oct, 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 [facility] [address], [place] [address] Oct, Essential hypertension I10 and 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 [facility] [address], [place] [address] Sep, 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 ; Type 2 diabetes mellitus with other skin ulcer E11.622 ; Chronic pain G89.29 ; Anxiety F41.9 ; Essential hypertension I10 ; Hypoxia R09.02 ; Atrial enlargement, left I51.7 and Left ventricular enlargement I51.7 [facility] [address], [place] [address] Sep, [facility] [address] [place] [id number] [place] [address] Aug, [facility] [address] [place] [id number] [place] [address] Jul, [facility] [address] [place] [id number] [place] [address] Jul, [facility] [address] [place] [id number] [place] [address] Jul, CAD (coronary artery disease) I25.10 ; Essential hypertension I10 ; Pulmonary HTN I27.2 ; Atrial enlargement, left I51.7 and Left ventricular enlargement I51.7 [facility] [address] [place] [id number] [place] [address] Jun, [facility] [address], [place] [address] Jun, [facility] [address], [place] [address] Jun, [facility] [address], [place] [address] Jun, [facility] [address] [place] [id number] [place] [address] Jun, 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 ; Type 2 diabetes mellitus with other skin ulcer E11.622 ; Chronic pain G89.29 ; Anxiety F41.9 ; Essential hypertension I10 ; Ulcer of right lower leg, with unspecified severity L97.919 ; Pulmonary HTN I27.2 ; Hypoxia R09.02 ; Atrial enlargement, left I51.7 and Left ventricular enlargement I51.7 [place] [address] [place] [id number] [place] [address] May, [place] [address] [place] [id number] [place] [address] 08 Apr, 2016 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 ; Type 2 diabetes mellitus with other skin ulcer E11.622 ; Chronic pain G89.29 ; Anxiety F41.9 ; Cough R05 ; Essential hypertension I10 and Ulcer of right lower leg, with unspecified severity L97.919 [place] [address] [place] [id number] [place] [address] Mar, 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 ; Chronic pain G89.29 ; Anxiety F41.9 ; Type 2 diabetes mellitus with other skin ulcer E11.622 ; Cough R05 ; Essential hypertension I10 and Ulcer of right lower leg, with unspecified severity L97.919 [place] [address] [place] [id number] [place] [address] Feb, [place] [address] [place] [id number] [place] [address] Feb, 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 ; Chronic pain G89.29 ; Anxiety F41.9 ; Type 2 diabetes mellitus with other skin ulcer E11.622 ; Cough R05 and Essential hypertension I10 [place] [address] [place] [id number] [place] [address] Jan, Chronic pain G89.29 ; Anxiety F41.9 and Foot swelling M79.89 [place] [address] [place] [id number] [place] [address] December, Chronic pain G89.29 ; Anxiety F41.9 and Stress incontinence in female N39.3 [place] [id number] [place] [address] December, [facility] [address], [place] [address] Nov, [facility] [address] [place] [id number] [place] [address] Nov, [facility] [address], [place] [address] Nov, [facility] [address] [place] [id number] [place] [address] Nov, Chronic pain G89.29 ; Anxiety F41.9 ; Non-healing skin lesion L98.9 and Type 2 diabetes mellitus with other skin ulcer E11.622 [facility] [address] [place] [id number] [place] [address] Nov, 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 [facility] [address] [place] [id number] [place] [address] Nov, [facility] [id number] [place] [address] Nov, [facility] [address] [place] [address] Nov, [facility] [address], [place] [address] Nov, [facility] [address], [place] [address] Nov, 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 [facility] [address], [place] [address] Oct, 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 ; Essential hypertension I10 ; Chronic pain G89.29 ; Anxiety F41.9 and Skin infection L08.9 [facility] [address], [place] [address] Oct, [facility] [address] [address] Sep, [place] [address] [address] Sep, 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 ; Chronic pain G89.29 ; Anxiety F41.9 and Allergic rhinitis J30.9 [place] [address] [address] Aug, 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 ; Chronic pain G89.29 ; Anxiety F41.9 and Allergic rhinitis J30.9 [place] [address] [address] Jul, [place] [address] [address] Jul, 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 ; Dyspepsia R10.13 ; Essential hypertension I10 ; manager 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 ; CAD (coronary artery disease) I25.10 ; Chronic pain G89.29 ; Anxiety F41.9 ; Dysuria R30.0 and Pain of left lower leg M79.662 [place] [address] [address] Jul, [place] [address] [address] Jun, 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 and manager 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 [place] [address] [address] Jun, [place] [address] [address] Jun, Neuropathy G62.9 ; Arthritis M19.90 ; Leg cramps R25.2 and Anxiety F41.9 [place] [address] [address] May, [facility] [address], [place] [address] May, [facility] [address] [place] [id number] [place] [address] May, 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 [facility] [address] [place] [id number] [place] [address] May, [facility] [address] [place] [id number] [place] [address] 29 Apr, 2015 [facility] [address] [place] [id number] [place] [address] Apr, [facility] [address] [place] [id number] [place] [address] 17 Apr, 2015 [facility] [address] [place] [id number] [place] [address] 14 Apr, 2015 [facility] [address] [place] [id number] [place] [address] Apr, [facility] [address] [place] [id number] [place] [address] Apr, [facility] [address] [place] [address] Apr, Diabetes with renal manifestations, type II or unspecified type, uncontrolled 250.42 ; Coronary atherosclerosis of unspecified type of vessel, [place] or graft 414.00 ; Polyneuropathy in diabetes 357.2 ; Hypertension 401.9 ; Anxiety 300.00 ; GERD (gastroesophageal reflux disease) 530.81 and Type 2 diabetes mellitus with pressure callus 250.80 [facility] [address] [place] [id number] [place] [address] Mar, [facility] [address] [place] [id number] [place] [address] Mar, [facility] [address] [place] [id number] [place] [address] Mar, [facility] [address], [place] [address] Mar, [facility] [address] [place] [id number] [place] [address] Mar, Diabetes with renal manifestations, type II or unspecified type, uncontrolled 250.42 ; Coronary atherosclerosis of unspecified type of vessel, [place] or graft 414.00 ; Polyneuropathy in diabetes 357.2 ; Hypertension 401.9 and Anxiety 300.00 [facility] [address] [place] [id number] [place] [address] Mar, Routine gynecological examination V72.31 ; Breast cancer screening V76.10 ; Recurrent urinary tract infection 599.0 ; Mastodynia 611.71 and Tobacco abuse 305.1 [facility] [address] [place] [id number] [place] [address] Feb, [facility] [address] [place] [id number] [place] [address] Jan, [facility] [address] [place] [id number] [place] [address] Jan, [facility] [address] [place] [id number] [place] [address] Jan, [facility] [address] [place] [id number] [place] [address] Jan, [facility] [address] [place] [address] December, [facility] [address] [place] [address] December, [facility] [address] [place] [id number] [place] [address] Nov, [facility] [id number] [place] [address] Nov, [facility] [address] [place] [id number] [place] [address] 13 Nov, 2014 [facility] [place] [facility] [address] [id number] [place] [address] 19 Oct, 2014 [facility] [place] [facility] [address] [id number] [place] [address] 19 Oct, 2014 [facility] [place] [facility] [address] [id number] [place] [address] 16 Oct, 2014 [facility] [place] [facility] [address] [id number] [place] [address] 16 Oct, 2014 [facility] [place] [facility] [address] [id number] [place] [address] 16 Oct, 2014 [facility] [place] [facility] [address] [id number] [place] [address] 16 Oct, 2014 [facility] [place] [facility] [address] [id number] [place] [address] 16 Oct, 2014 [facility] [place] [facility] [address] [id number] [place] [address] 16 Oct, 2014 [facility] [place] [facility] [address] [id number] [place] [address] 16 Oct, 2014 [facility] [place] [facility] [address] [id number] [place] [address] 16 Oct, 2014 [facility] [place] [facility] [address] [id number] [place] [address] 16 Oct, 2014 [facility] [place] [facility] [address] [id number], [place] [address] 16 Oct, 2014 [facility] [place] [facility] [address] [id number] [place] [address] 04 Oct, 2014 [facility] [place] [facility] [address] [id number] [place] [address] 04 Oct, 2014 [facility] [place] [facility] [address] [id number] [place] [address] 03 Oct, 2014 [facility] [place] [facility] [address] [facility] [id number] [place] [address] Oct, 2014 [facility] [place] [facility] [address] [id number] [place] [address] Oct, 2014 [facility] [place] [facility] [address] [facility] [id number] [place] [address] Oct, 2014 [facility] [place] [facility] [address] [facility] [id number] [place] [address] Sep, 2014 [facility] [place] [facility] [address] [facility] [id number] [place] [address] Sep, 2014 [facility] [place] [facility] [address] [facility] [id number] [place] [address] Sep, 2014 [facility] [place] [facility] [address] [facility] [id number] [place] [address] Sep, 2014 [facility] [place] [facility] [address] [facility] [id number] [place] [address] Sep, 2014 [facility] [place] [facility] [address] [facility] [id number] [place] [address] Sep, 2014 [facility] [place] [facility] [address] [facility] [id number] [place] [address] Sep, 2014 [facility] [place] [facility] [address] [facility] [id number] [place] [address] Sep, 2014 [facility] [place] [facility] [address] [facility] [id number], [place] [address] Sep, 2014 [facility] [place] [facility] [address] [facility] [id number] [place] [address] Sep, 2014 [facility] [place] [facility] [address] [facility] [id number] [place] [address] Sep, 2014 [facility] [place] [facility] [address] [facility] [id number] [place] [address] Sep, 2014 [facility] [place] [facility] [address] [facility] [id number], [place] [address] Sep, [facility] [place] [facility] [address] [id number] [place] [address] Sep, [facility] [place] [facility] [address] [id number] [place] [address] Sep, [facility] [place] [facility] [address] [id number] [place] [address] Aug, [facility] [place] [facility] [address] [id number] [place] [address] Aug, [facility] [place] [facility] [address] [id number] [place] [address] Aug, [facility] [place] [facility] [address] [id number] [place] [address] Aug, [facility] [place] [facility] [address] [id number], [place] [address] Aug, [facility] [place] [facility] [address] [id number] [place] [address] Aug, [facility] [place] [facility] [address] [id number] [place] [address] Aug, [facility] [place] [facility] [address] [id number] [place] [address] Aug, [facility] [place] [facility] [address] [id number], [place] [address] Aug, [facility] [place] [facility] [address] [id number], [place] [address] Aug, [facility] [place] [facility] [address] [id number], [place] [address] Aug, [facility] [place] [facility] [address] [id number], [place] [address] Aug, [facility] [place] [facility] [address] [id number], [place] [address] Aug, [facility] [place] [facility] [address] [id number] [place] [address] Jul, [facility] [place] [facility] [address] [id number] [place] [address] Jul, [facility] [place] [facility] [address] [id number] [place] [address] Jul, [facility] [place] [facility] [address] [id number] [place] [address] Jul, [facility] [place] [facility] [address] [id number] [place] [address] Jul, [facility] [place] [facility] [address] [id number] [place] [address] Jul, [facility] [place] [facility] [address] [id number] [place] [address] Jul, [facility] [place] [facility] [address] [id number] [place] [address] Jul, [facility] [place] [facility] [address] [id number] [place] [address] Jun, [facility] [place] [facility] [address] [id number] [place] [address] Jun, [facility] [place] [facility] [address] [id number] [place] [address] Jun, [facility] [place] [facility] [address] [id number] [place] [address] Jun, [facility] [place] [facility] [address] [id number] [place] [address] Jun, [facility] [place] [facility] [address] [id number] [place] [address] Jun, [facility] [place] [facility] [address] [id number] [place] [address] Jun, [facility] [place] [facility] [address] [id number] [place] [address] Jun, [facility] [place] [facility] [address] [id number] [place] [address] Jun, [facility] [place] [facility] [address] [id number] [place] [address] Jun, [facility] [place] [facility] [address] [id number] [place] [address] Jun, [facility] [place] [facility] [address] [id number] [place] [address] Jun, [facility] [place] [facility] [address] [id number] [place] [address] Jun, [facility] [place] [facility] [address] [id number] [place] [address] Jun, [facility] [place] [facility] [address] [id number] [place] [address] Jun, [facility] [place] [facility] [address] [id number] [place] [address] Jun, [facility] [place] [facility] [address] [id number] [place] [address] May, [facility] [place] [facility] [address] [id number] [place] [address] May, [facility] [place] [facility] [address] [id number], [place] [address] May, [facility] [place] [facility] [address] [id number], [place] [address] May, [facility] [place] [facility] [address] [id number], [place] [address] May, [facility] [place] [facility] [address] [id number], [place] [address] May, [facility] [place] [facility] [address] [id number], [place] [address] May, [facility] [place] [facility] [address] [id number] [place] [address] May, [facility] [place] [facility] [address] [id number] [place] [address] May, [facility] [place] [facility] [address] [id number] [place] [address] Apr, [facility] [place] [facility] [address] [id number] [place] [address] Apr, [facility] [facility] [address] [id number] [place] [address] Apr, [facility] [place] [facility] [address] [id number] [place] [address] Apr, [facility] [place] [facility] [address] [id number] [place] [address] Mar, [facility] [place] [facility] [address] [id number] [place] [address] Mar, [facility] [place] [facility] [address] [id number] [place] [address] Mar, [facility] [place] [facility] [address] [id number] [place] [address] Mar, [facility] [place] [facility] [address] [id number] [place] [address] Feb, [facility] [place] [facility] [address] [id number] [place] [address] Feb, [facility] [place] [facility] [address] [id number] [place] [address] Jan, [facility] [place] [facility] [address] [id number] [place] [address] Jan, [facility] [place] [facility] [address] [id number] [place] [address] Jan, [facility] [place] [facility] [address] [id number] [place] [address] Jan, [facility] [place] [facility] [address] [id number] [place] [address] Jan, [facility] [place] [facility] [address] [id number] [place] [address] Jan, [facility] [place] [facility] [address] [id number] [place] [address] Jan, [facility] [place] [facility] [address] [id number] [place] [address] Jan, [facility] [place] [facility] [address] [id number] [place] [address] Jan, [facility] [place] [facility] [address] [id number] [place] [address] Jan, [facility] [place] [facility] [address] [id number] [place] [address] Jan, [facility] [place] [facility] [address] [id number] [place] [address] Jan, [facility] [place] [address] [id number] [place] [address] Jan, [facility] [place] [facility] [address] [id number] [place] [address] December, [facility] [address] [id number] [place] [address] December, [facility] [address] [id number] [place] [address] December, [facility] [place] [facility] [address] [id number] [place] [address] December, [facility] [address] [id number] [place] [address] December, [facility] [address] [id number] [place] [address] Nov, [facility] [address] [id number] [place] [address] Nov, [facility] [address] [id number] [place] [address] Nov, [facility] [place] [facility] [address] [id number] [place] [address] Nov, [facility] [place] [facility] [address] [id number] [place] [address] Nov, [facility] [address] [id number] [place] [address] Nov, [facility] [address] [id number] [place] [address] Nov, [facility] [address] [id number] [place] [address] Nov, [facility] [address] [id number] [place] [address] Nov, [facility] [address] [id number] [place] [address] Nov, [facility] [address] [id number] [place] [address] Jun, [facility] [address] [id number] [place] [address] Jun, [facility] [address] [id number] [place] [address] May, [facility] [address] [id number] [place] [address] May, [facility] [address] [id number] [place] [address] May, [facility] [address] [id number] [place] [address] May, [facility] [address] [id number] [place] [address] May, [facility] [address] [id number] [place] [address] 12 May, 2012 [facility] [address] [id number] [place] [address] May, [facility] [address] [id number] [place] [address] May, [facility] [address] [id number] [place] [address] May, [facility] [address] [id number] [place] [address] 25 Apr, 2011 [facility] [address] [id number] [place] [address] 25 Apr, 2011 [facility] [address] [id number] [place] [address] 25 Apr, 2011 [facility] [address] [id number] [place] [address] 21 Apr, 2011 [facility] [address] [id number] [place] [address] 20 Apr, 2011 [facility] [address] [id number] [place] [address] 19 Apr, 2011 [facility] [address] [id number] [place] [address] 05 Apr, 2012 [facility] [address] [id number] [place] [address] 04 Apr, 2012 [facility] [address] [id number] [place] [address] 28 Mar, 2012 [facility] [address] [id number] [place] [address] 27 Mar, 2012 [facility] [address] [id number] [place] [address] 16 Mar, 2012 [facility] [address] [id number] [place] [address] Mar, [facility] [address] [id number] [place] [address] Mar, [facility] [address] [place] [id number] Mar, [facility] [address] [id number] [place] [address] Mar, [facility] [address] [id number] [place] [address] Feb, [facility] [address] [id number] [place] [address] Feb, [facility] [address] [id number] [place] [address] Feb, [facility] [address] [id number] [place] [address] Feb, [facility] [address] [id number] [place] [address] Feb, [facility] [address] [id number] [place] [address] Feb, [facility] [address] [id number] [place] [address] Jan, [facility] [address] [id number] [place] [address] Jan, [facility] [address] [id number] [place] [address] Jan, [facility] [address] [id number] [place] [address] Jan, [facility] [address] [id number] [place] [address] Jan, [facility] [address] [id number] [place] [address] Jan, [facility] [address] [id number] [place] [address] Jan, [facility] [address] [id number] [place] [address] December, [facility] [address] [id number] [place] [address] December, [facility] [address] [id number] [place] [address] December, [facility] [address] [id number] [place] [address] Nov, [facility] [address] [id number] [place] [address] Nov, [facility] [address] [id number] [place] [address] Nov, [facility] [address] [id number] [place] [address] Nov, [facility] [address] [id number] [place] [address] Nov, [facility] [address] [id number] [place] [address] 18 Nov, 2011 [facility] [address] [id number] [place] [address] Nov, [facility] [address] [id number] [place] [address] Nov, [facility] [address] [id number], [place] [address] Oct, [facility] [address] [id number] [place] [address] Oct, [facility] [address] [id number] [place] [address] Oct, [facility] [address] [id number] [place] [address] Oct, [facility] [address] [id number] [place] [address] Sep, [facility] [address] [id number] [place] [address] Sep, [facility] [address] [id number] [place] [address] Sep, [facility] [address] [id number] [place] [address] Aug, [facility] [address] [id number] [place] [address] Aug, [facility] [address] [id number] [place] [address] Aug, [facility] [address] [id number] [place] [address] Aug, [facility] [address] [id number] [place] [address] Jul, [facility] [address] [id number] [place] [address] 15 Jul, 2011 [facility] [address] [id number] [place] [address] Jul, [facility] [address] [id number] [place] [address] 30 Jun, 2011 [facility] [address] [id number] [place] [address] 22 Jun, 2011 [facility] [address] [id number] [place] [address] 15 Jun, 2011 [facility] [address] [id number] [place] [address] 14 Jun, 2011 [facility] [address] [id number] [place] [address] 14 Jun, 2011 [facility] [address] [id number] [place] [address] Jun, [facility] [address] [facility] [id number], [place] [address] May, [facility] [address] [id number], [place] [address] May, [facility] [address] [facility] [id number], [place] [address] May, [facility] [address] [id number], [place] [address] Apr, [facility] [address] [facility] [id number], [place] [address] Mar, [facility] [address] [facility] [id number], [place] [address] Aug, IMMUNIZATIONS No Known Immunizations SOCIAL HISTORY [...] Coronary atherosclerosis of unspecified type of vessel, [place] or graft Surgical History partial hysterectomy 1991 Surgical History heart cath 2004, 2011 Hospitalization History [place] 2004 Hospitalization History [facility] for pancreatitis 11/2010 Hospitalization History [place] for a stroke 12/2011 Hospitalization History [facility] 05/2016 Hospitalization History [facility]- Heart failure, uncontrolled Hyperglycemia. Discharged 06/27/17 06/25/17
--- OUTSIDE RECORDS SUMMARY | 2019-03-03 10:46 | XMS REPORT ---
Author Author ALBIN RENAE Organization [facility] Address [address] [place] [address] Care Team Providers Care Supervisor Telephone Information Name Role Phone ALBIN RENAE Unavailable PROBLEMS Type Condition ICD9-CM Code DDE28-OE Code Onset Dates Condition Status SNOMED Code Problem Chronic pain G89.29 Active 19687884 Problem Dyspepsia R10.13 Active 866532212 Problem Allergic rhinitis J30.9 Active 38135606 Problem Essential hypertension I10 Active 08053489 Problem Type 2 diabetes mellitus with other skin ulcer E11.622 Active 29302743 Problem Skin infection L08.9 Active 202417491 Problem Stress incontinence in female N39.3 Active 18837744 Problem 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 Active 25664902 Problem Non-healing skin lesion L98.9 Active 28545118 Problem Ulcer of right lower leg, with unspecified severity L97.919 Active 325316391 Problem Left ventricular enlargement I51.7 Active 528565201 Problem Atrial enlargement, left I51.7 Active 31860776263601 Problem Urinary incontinence R32 Active 107819025 Problem Cough R05 Active 155605603 Problem Anxiety F41.9 Active 60700372 Problem Moderate episode of recurrent major depressive disorder F33.1 Active 952444021 Problem Foot swelling M79.89 Active 810182385 Problem CAD (coronary artery disease) I25.10 Active 91873513 Problem care home 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 Active 035596411 Problem Pulmonary HTN I27.2 Active 06749821 Problem Neuropathy G62.9 Active 876780441 Problem Mixed hyperlipidemia E78.2 Active 012612410 Problem Type 2 diabetes mellitus with other circulatory complications E11.59 Active 46517393 ALLERGIES No Information ENCOUNTERS Encounter Location Date Diagnosis [address] [address] Feb, [address] [place] [address] Feb, [facility] [address] [address] Feb, Moderate episode of recurrent major depressive disorder F33.1 [facility] [address] [address] Feb, Wheezing R06.2 and Cough R05 [facility] [address] [address] Jan, 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 [facility] [address] [place] [address] Jan, [facility] [address] [address] Jan, Wheezing R06.2 and Cough R05 [facility] [address] [address] Jan, Cough R05 ; Bronchitis J40 ; Wheezing R06.2 ; Unspecified superficial injury of left lesser toe(s), subsequent encounter S90.935D and Type 2 diabetes mellitus with other circulatory complications E11.59 [facility] [address] [address] Jan, [facility] [address] [address] December, [facility] [place] [address] [address] December, [facility] [address] [address] December, Encounter for removal of sutures Z48.02 [facility] [address] [address] December, 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 [facility] [address] [address] December, [facility] [place] [address] [address] December, Infection of toe L08.9 [facility] [address] [address] December, [place] [address] [address] December, 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 ; 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 ; Urinary incontinence R32 and Type 2 diabetes mellitus with other circulatory complications E11.59 [place] [address] [address] December, Essential hypertension I10 ; Type 2 diabetes mellitus with other circulatory complications E11.59 and Dizziness R42 [place] [address] [address] December, Dizziness R42 ; Essential hypertension I10 and Type 2 diabetes mellitus with other circulatory complications E11.[address] [address] Nov, Breast lump N63.[address] [address] Nov, Breast lump N63.[address] [address] Nov, Breast lump N63.[address] [address] Nov, [address] [address] Nov, Mixed hyperlipidemia E78.2 ; Essential hypertension I10 and care home 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 [address] Nov, Essential hypertension I10 ; Breast cancer screening Z12.31 ; 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 ; Mixed hyperlipidemia E78.2 ; Dysuria R30.0 and Type 2 diabetes mellitus with other circulatory complications E11.59 [place] [address] [address] May, [place] [address] [address] Apr, [place] [address] [address] Apr, Essential hypertension I10 and 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 [facility] [address] [address] Mar, [facility] [address] [place] [address] Feb, Onychomycosis B35.1 ; Neuropathy G62.9 and 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 [facility] [address] [address] Feb, [facility] [address] [place] [id number] [place] [address] December, [facility] [address] [place] [address] [id number] [place] [address] December, Herpes zoster without complication B02.9 ; Onychia of toe of left foot L03.032 ; Ingrowing toenail with infection L60.0 and 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 [facility] [address] [address] December, [facility] [address] [address] Nov, [facility] [address] [address] Oct, 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 [facility] [address] [address] Oct, Essential hypertension I10 and 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 [facility] [address] [address] Sep, 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 ; Type 2 diabetes mellitus with other skin ulcer E11.622 ; Chronic pain G89.29 ; Anxiety F41.9 ; Essential hypertension I10 ; Hypoxia R09.02 ; Atrial enlargement, left I51.7 and Left ventricular enlargement I51.7 [place] [address] [place] [id number] [place] [address] Sep, [facility] [address] [place] [id number] [place] [address] Aug, [place] [address] [place] [id number] [place] [address] Jul, [facility] [address] [place] [id number] [place] [address] Jul, [place] [address] [place] [id number] [place] [address] Jul, CAD (coronary artery disease) I25.10 ; Essential hypertension I10 ; Pulmonary HTN I27.2 ; Atrial enlargement, left I51.7 and Left ventricular enlargement I51.7 [place] [address] [place] [id number] [place] [address] Jun, [place] [address] [place] [id number] [place] [address] Jun, [place] [address] [place] [id number] [place] [address] Jun, [place] [address] [place] [id number] [place] [address] Jun, [place] [address] [place] [id number] [place] [address] Jun, 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 ; Type 2 diabetes mellitus with other skin ulcer E11.622 ; Chronic pain G89.29 ; Anxiety F41.9 ; Essential hypertension I10 ; Ulcer of right lower leg, with unspecified severity L97.919 ; Pulmonary HTN I27.2 ; Hypoxia R09.02 ; Atrial enlargement, left I51.7 and Left ventricular enlargement I51.7 [place] [address] [place] [id number] [place] [address] May, [place] [address] [place] [id number] [place] [address] 08 Apr, 2016 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 ; Type 2 diabetes mellitus with other skin ulcer E11.622 ; Chronic pain G89.29 ; Anxiety F41.9 ; Cough R05 ; Essential hypertension I10 and Ulcer of right lower leg, with unspecified severity L97.919 [place] [address] [place] [place] [id number] [place] [address] Mar, 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 ; Chronic pain G89.29 ; Anxiety F41.9 ; Type 2 diabetes mellitus with other skin ulcer E11.622 ; Cough R05 ; Essential hypertension I10 and Ulcer of right lower leg, with unspecified severity L97.919 [place] [address] [place] [id number] [place] [address] Feb, [place] [address] [place] [id number] [place] [address] Feb, 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 ; Chronic pain G89.29 ; Anxiety F41.9 ; Type 2 diabetes mellitus with other skin ulcer E11.622 ; Cough R05 and Essential hypertension I10 [place] [address] [place] [id number] [place] [address] Jan, Chronic pain G89.29 ; Anxiety F41.9 and Foot swelling M79.89 [place] [address] [place] [id number] [place] [address] December, Chronic pain G89.29 ; Anxiety F41.9 and Stress incontinence in female N39.3 [place] [id number] [place] [address] December, [place] [address] [place] [id number] [place] [address] Nov, [address] [place] [address] Nov, [facility] [id number] [place] [address] Nov, [facility] [address] [place] [id number] [place] [address] Nov, Chronic pain G89.29 ; Anxiety F41.9 ; Non-healing skin lesion L98.9 and Type 2 diabetes mellitus with other skin ulcer E11.622 [facility] [address] [place] [id number] [place] [address] Nov, 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 [facility] [address] [place] [id number] [place] [address] Nov, [facility] [address] [place] [address] [id number] [place] [address] Nov, [facility] [address] [place] [id number] [place] [address] Nov, [facility] [address] [id number] [place] [address] Nov, [facility] [address] [place] [id number] [place] [address] Nov, 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 [facility] [address] [place] [id number] [place] [address] Oct, 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 ; Essential hypertension I10 ; Chronic pain G89.29 ; Anxiety F41.9 and Skin infection L08.9 [facility] [address] [place] [id number] [place] [address] Oct, [facility] [address] [place] [id number] [place] [address] Sep, [facility] [address] [place] [id number] [place] [address] Sep, 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 ; Chronic pain G89.29 ; Anxiety F41.9 and Allergic rhinitis J30.9 [place] [address] [address] Aug, 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 ; Chronic pain G89.29 ; Anxiety F41.9 and Allergic rhinitis J30.9 [place] [address] [address] Jul, [place] [address] [address] Jul, 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 ; Dyspepsia R10.13 ; Essential hypertension I10 ; 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 ; CAD (coronary artery disease) I25.10 ; Chronic pain G89.29 ; Anxiety F41.9 ; Dysuria R30.0 and Pain of left lower leg M79.662 [place] [address] [address] Jul, [place] [address] [address] Jun, 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 and care home 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 [place] [address] [address] Jun, [place] [address] [address] Jun, Neuropathy G62.9 ; Arthritis M19.90 ; Leg cramps R25.2 and Anxiety F41.9 [place] [address] [address] May, [place] [address] [address] May, [place] [address] [place] [address] May, 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 [facility] [address] [place] [id number] [place] [address] May, [facility] [address] [place] [id number] [place] [address] 29 Apr, 2015 [facility] [address] [address] Apr, [facility] [address] [place] [id number] [place] [address] 17 Apr, 2015 [facility] [address] [place] [id number] [place] [address] 14 Apr, 2015 [facility] [address] [place] [id number] [place] [address] Apr, [facility] [address] [place] [id number] [place] [address] Apr, [facility] [address] [place] [id number] [place] [address] Apr, Diabetes with renal manifestations, type II or unspecified type, uncontrolled 250.42 ; Coronary atherosclerosis of unspecified type of vessel, big [place] or graft 414.00 ; Polyneuropathy in diabetes 357.2 ; Hypertension 401.9 ; Anxiety 300.00 ; GERD (gastroesophageal reflux disease) 530.81 and Type 2 diabetes mellitus with pressure callus 250.80 [facility] [address] [place] [id number] [place] [address] Mar, [facility] [address] [place] [id number] [place] [address] Mar, [facility] [address] [place] [id number] [place] [address] Mar, [facility] [address] [place] [id number] [place] [address] Mar, [facility] [address] [address] Mar, Diabetes with renal manifestations, type II or unspecified type, uncontrolled 250.42 ; Coronary atherosclerosis of unspecified type of vessel, [place] or graft 414.00 ; Polyneuropathy in diabetes 357.2 ; Hypertension 401.9 and Anxiety 300.00 [facility] [address] [address] Mar, Routine gynecological examination V72.31 ; Breast cancer screening V76.10 ; Recurrent urinary tract infection 599.0 ; Mastodynia 611.71 and Tobacco abuse 305.1 [facility] [address] [place] [id number] [place] [address] Feb, [facility] [address] [id number] [place] [address] Jan, [facility] [address] [place] [id number] [place] [address] Jan, [facility] [address] [id number] [place] [address] Jan, [facility] [address] [place] [address] Jan, [facility] [address] [address] December, [facility] [address] [address] December, [facility] [address] [id number] [place] [address] Nov, [facility] [address] [address] Nov, [facility] [address] [place] [address] Nov, [facility] [address] [address] Oct, [facility] [address] [place] [id number] [address] 19 Oct, 2014 [facility] [place] [facility] [address] [id number] [place] [address] 16 Oct, 2014 [facility] [place] [facility] [address] [id number] [place] [address] 16 Oct, 2014 [facility] [place] [facility] [address] [id number] [place] [address] 16 Oct, 2014 [facility] [place] [facility] [address] [id number] [place] [address] 16 Oct, 2014 [facility] [place] [facility] [address] [id number] [place] [address] 16 Oct, 2014 [facility] [place] [facility] [address] [id number] [place] [address] 16 Oct, 2014 [facility] [place] [facility] [address] [id number] [place] [address] 16 Oct, 2014 [facility] [place] [facility] [address] [id number] [place] [address] 16 Oct, 2014 [facility] [place] [facility] [address] [id number] [place] [address] 16 Oct, 2014 [facility] [place] [facility] [address] [id number] [place] [address] 16 Oct, 2014 [facility] [place] [facility] [address] [id number] [place] [address] 04 Oct, 2014 [facility] [place] [facility] [address] [id number] [place] [address] 04 Oct, 2014 [facility] [place] [facility] [address] [id number] [place] [address] 03 Oct, 2014 [facility] [place] [facility] [address] [id number] [place] [address] 03 Oct, 2014 [facility] [place] [facility] [address] [id number] [place] [address] Oct, 2014 [facility] [place] [facility] [address] [facility] [id number] [place] [address] Oct, [facility] [place] [facility] [address] [facility] [id number] [place] [address] Sep, 2014 [facility] [place] [facility] [address] [facility] [id number] [place] [address] Sep, 2014 [facility] [place] [facility] [address] [facility] [id number] [place] [address] Sep, 2014 [facility] [place] [facility] [address] [facility] [id number] [place] [address] Sep, 2014 [facility] [place] [facility] [address] [facility] [id number] [place] [address] Sep, 2014 [facility] [place] [facility] [address] [facility] [id number] [place] [address] Sep, 2014 [facility] [place] [facility] [address] [facility] [id number] [place] [address] Sep, 2014 [facility] [place] [facility] [address] [facility] [id number] [place] [address] Sep, 2014 [facility] [place] [facility] [address] [facility] [id number] [place] [address] Sep, 2014 [facility] [place] [facility] [address] [facility] [id number] [place] [address] Sep, 2014 [facility] [place] [facility] [address] [facility] [id number] [place] [address] Sep, 2014 [facility] [place] [facility] [address] [facility] [id number] [place] [address] Sep, 2014 [facility] [place] [facility] [address] [facility] [id number] [place] [address] Sep, 2014 [facility] [place] [facility] [address] [address] Sep, 2014 [facility] [place] [facility] [address] [id number] [place] [address] Sep, [facility] [place] [facility] [address] [id number] [place] [address] Aug, [facility] [place] [facility] [address] [id number] [place] [address] Aug, [facility] [place] [facility] [address] [id number] [place] [address] Aug, [facility] [place] [facility] [address] [id number] [place] [address] Aug, [facility] [place] [facility] [address] [id number] [place] [address] Aug, [facility] [place] [facility] [address] [id number] [place] [address] Aug, [facility] [place] [facility] [address] [id number] [place] [address] Aug, [facility] [place] [facility] [address] [id number] [place] [address] Aug, [facility] [place] [facility] [address] [id number] [place] [address] Aug, [facility] [place] [facility] [address] [id number] [place] [address] Aug, [facility] [place] [facility] [address] [id number] [place] [address] Aug, [facility] [place] [facility] [address] [id number] [place] [address] Aug, [facility] [place] [facility] [address] [id number] [place] [address] Aug, [facility] [place] [facility] [address] [id number] [place] [address] Jul, [facility] [place] [facility] [address] [id number] [place] [address] Jul, [facility] [place] [facility] [address] [id number] [place] [address] Jul, [facility] [place] [facility] [address] [id number] [place] [address] Jul, [facility] [place] [facility] [address] [id number] [place] [address] Jul, [facility] [place] [facility] [address] [id number] [place] [address] Jul, [facility] [place] [facility] [address] [id number] [place] [address] Jul, [facility] [place] [facility] [address] [id number] [place] [address] Jul, [facility] [place] [facility] [address] [id number] [place] [address] Jun, [facility] [place] [facility] [address] [id number] [place] [address] Jun, [facility] [place] [facility] [address] [id number] [place] [address] Jun, [facility] [place] [facility] [address] [id number] [place] [address] Jun, [facility] [place] [facility] [address] [id number] [place] [address] Jun, [facility] [place] [facility] [address] [id number] [place] [address] Jun, [facility] [place] [facility] [address] [id number] [place] [address] Jun, [facility] [place] [facility] [address] [id number] [place] [address] Jun, [facility] [place] [facility] [address] [id number] [place] [address] Jun, [facility] [place] [facility] [address] [id number] [place] [address] 20 Jun, 2014 [facility] [place] [facility] [address] [id number] [place] [address] 14 Jun, 2014 [facility] [place] [facility] [address] [id number] [place] [address] 14 Jun, 2014 [facility] [place] [facility] [address] [id number] [place] [address] Jun, [facility] [place] [facility] [address] [id number] [place] [address] Jun, [facility] [place] [facility] [address] [id number] [place] [address] Jun, [facility] [place] [facility] [address] [id number] [place] [address] Jun, [facility] [place] [facility] [address] [id number] [place] [address] May, [facility] [place] [facility] [address] [id number] [place] [address] May, [facility] [place] [facility] [address] [id number] [place] [address] May, [facility] [place] [facility] [address] [id number] [place] [address] May, [facility] [place] [facility] [address] [id number] [place] [address] May, [facility] [place] [facility] [address] [id number] [place] [address] May, [facility] [place] [facility] [address] [id number] [place] [address] May, [facility] [place] [facility] [address] [id number] [place] [address] May, [facility] [place] [facility] [address] [id number] [place] [address] May, [facility] [place] [facility] [address] [id number] [place] [address] Apr, [facility] [place] [facility] [address] [id number] [place] [address] Apr, [facility] [place] [facility] [address] [id number] [place] [address] Apr, [facility] [place] [facility] [address] [id number] [place] [address] Apr, [facility] [place] [facility] [address] [id number] [place] [address] Mar, [facility] [place] [facility] [address] [id number] [place] [address] Mar, [facility] [place] [facility] [address] [id number] [place] [address] Mar, [facility] [place] [facility] [address] [id number] [place] [address] Mar, [facility] [place] [facility] [address] [id number] [place] [address] Feb, [facility] [place] [facility] [address] [id number] [place] [address] Feb, [facility] [place] [facility] [address] [id number] [place] [address] Jan, [facility] [place] [facility] [address] [id number] [place] [address] Jan, [facility] [place] [facility] [address] [id number] [place] [address] Jan, [facility] [place] [facility] [address] [id number] [place] [address] Jan, [facility] [place] [facility] [address] [id number] [place] [address] Jan, [facility] [place] [facility] [address] [id number] [place] [address] Jan, [facility] [place] [facility] [address] [id number] [place] [address] Jan, [facility] [place] [facility] [address] [id number] [place] [address] Jan, [facility] [place] [facility] [address] [id number] [place] [address] Jan, [facility] [place] [facility] [address] [id number] [place] [address] Jan, [facility] [place] [facility] [address] [id number] [place] [address] Jan, [facility] [place] [facility] [address] [id number] [place] [address] Jan, [facility] [place] [facility] [address] [id number] [place] [address] Jan, [facility] [place] [facility] [address] [id number] [place] [address] December, [facility] [place] [facility] [address] [id number] [place] [address] December, [facility] [place] [facility] [address] [id number] [place] [address] December, [facility] [place] [facility] [address] [id number] [place] [address] December, [facility] [place] [facility] [address] [id number] [place] [address] December, [facility] [place] [facility] [address] [id number] [place] [address] Nov, [facility] [place] [facility] [address] [id number] [place] [address] Nov, [facility] [place] [facility] [address] [id number] [place] [address] Nov, [facility] [place] [facility] [address] [id number] [place] [address] Nov, [facility] [place] [facility] [address] [id number] [place] [address] Nov, [facility] [place] [facility] [address] [id number] [place] [address] Nov, [facility] [place] [facility] [address] [id number] [place] [address] Nov, [facility] [place] [facility] [address] [id number] [place] [address] Nov, [facility] [place] [facility] [address] [id number] [place] [address] Nov, [facility] [place] [facility] [address] [id number] [place] [address] Nov, [facility] [place] [facility] [address] [id number] [place] [address] Jun, [facility] [place] [facility] [address] [id number] [place] [address] Jun, [facility] [place] [facility] [address] [id number] [place] [address] May, [facility] [place] [facility] [address] [id number] [place] [address] May, [facility] [place] [facility] [address] [id number] [place] [address] May, [facility] [place] [facility] [address] [id number] [place] [address] May, [facility] [place] [facility] [address] [id number] [place] [address] May, [facility] [place] [facility] [address] [id number] [place] [address] May, [facility] [place] [facility] [address] [id number] [place] [address] May, [facility] [address] [id number] [place] [address] May, [facility] [address] [id number] [place] [address] May, [facility] [address] [id number] [place] [address] Apr, [facility] [place] [facility] [address] [id number] [place] [address] Apr, [facility] [address] [id number] [place] [address] 25 Apr, 2012 [facility] [address] [id number] [place] [address] Apr, [facility] [address] [id number] [place] [address] 20 Apr, 2012 [facility] [address] [id number] [place] [address] 19 Apr, 2012 [facility] [address] [id number] [place] [address] 05 Apr, 2012 [facility] [address] [id number] [place] [address] 04 Apr, 2012 [facility] [address] [id number] [place] [address] Mar, [facility] [place] [facility] [address] [id number] [place] [address] Mar, [facility] [address] [id number] [place] [address] 16 Mar, 2012 [facility] [address] [id number] [place] [address] 14 Mar, 2012 [facility] [address] [facility] [id number] [place] [address] 07 Mar, 2012 [facility] [address] [place] [id number] Mar, [facility] [place] [facility] [address] [id number] [place] [address] Mar, [facility] [place] [facility] [address] [id number] [place] [address] Feb, [facility] [place] [facility] [address] [id number] [place] [address] Feb, [facility] [place] [facility] [address] [id number] [place] [address] Feb, [facility] [place] [facility] [address] [id number] [place] [address] Feb, [facility] [place] [facility] [address] [id number] [place] [address] Feb, [facility] [place] [facility] [address] [id number] [place] [address] Feb, [facility] [place] [facility] [address] [id number] [place] [address] Jan, [facility] [place] [facility] [address] [id number] [place] [address] Jan, [facility] [place] [facility] [address] [id number] [place] [address] Jan, [facility] [place] [facility] [address] [id number] [place] [address] Jan, [facility] [place] [facility] [address] [id number] [place] [address] Jan, [facility] [place] [facility] [address] [id number] [place] [address] Jan, [facility] [place] [facility] [address] [id number] [place] [address] Jan, [facility] [place] [facility] [address] [id number] [place] [address] December, [facility] [place] [facility] [address] [id number] [place] [address] December, [facility] [address] [id number] [place] [address] December, [facility] [address] [id number] [place] [address] 30 Nov, 2011 [facility] [address] [id number] [place] [address] 26 Nov, 2011 [facility] [address] [id number] [place] [address] Nov, [facility] [address] [id number] [place] [address] Nov, [facility] [address] [id number] [place] [address] Nov, [facility] [address] [id number] [place] [address] 18 Nov, 2011 [facility] [address] [id number] [place] [address] 17 Nov, 2011 [facility] [address] [id number] [place] [address] Nov, [facility] [address] [id number] [place] [address] Oct, [facility] [address] [id number] [place] [address] Oct, [facility] [address] [id number] [place] [address] Oct, [facility] [address] [id number] [place] [address] Oct, [facility] [address] [id number] [place] [address] Sep, [facility] [address] [id number] [place] [address] Sep, [facility] [place] [facility] [address] [id number] [place] [address] Sep, [facility] [place] [facility] [address] [id number] [place] [address] Aug, [facility] [place] [facility] [address] [id number] [place] [address] Aug, [facility] [place] [facility] [address] [id number] [place] [address] Aug, [facility] [place] [facility] [address] [id number] [place] [address] Aug, [facility] [place] [facility] [address] [id number] [place] [address] Jul, [facility] [place] [facility] [address] [id number] [place] [address] 15 Jul, 2011 [facility] [place] [facility] [address] [id number] [place] [address] 15 Jul, 2011 [facility] [place] [facility] [address] [id number] [place] [address] 30 Jun, 2011 [facility] [place] [facility] [address] [id number] [place] [address] 22 Jun, 2011 [facility] [place] [facility] [address] [id number] [place] [address] 15 Jun, 2011 [facility] [place] [facility] [address] [id number] [place] [address] 14 Jun, 2011 [facility] [place] [facility] [address] [id number] [place] [address] 14 Jun, 2011 [facility] [place] [facility] [address] [id number] [place] [address] 14 Jun, 2011 [facility] [place] [facility] [address] [id number] [place] [address] 31 May, 2011 [facility] [place] [facility] [address] [id number] [place] [address] May, [facility] [address] [facility] [id number] [place] [address] May, [facility] [address] [facility] [id number] [place] [address] Apr, [facility] [address] [facility] [id number] [place] [address] Mar, [facility] [address] [facility] [id number] [place] [address] Aug, IMMUNIZATIONS No Known Immunizations SOCIAL HISTORY Never Assessed REASON FOR VISIT PLAN OF CARE VITAL SIGNS MEDICATIONS Unknown Medications RESULTS No Results PROCEDURES No Known procedures INSTRUCTIONS MEDICATIONS ADMINISTERED No Known Medications MEDICAL (GENERAL) HISTORY Type Description Date Medical History type II diabetes-dx in 1995 Medical History stroke-12/2011-[facility] Medical History cardiovascular disorder-CAD Medical History hyperlipidemia Medical History hypertension Medical History Diabetes with renal manifestations, type II or unspecified type, uncontrolled Medical History Unspecified late effects of cerebrovascular disease due to cerebrovascular disease Medical History Coronary atherosclerosis of unspecified type of vessel, [place] or graft Surgical History partial hysterectomy 1991 Surgical History heart cath 2004, 2011 Hospitalization History [place] 2004 Hospitalization History [facility] for pancreatitis 11/2010 Hospitalization History [facility] for a stroke 12/2011 Hospitalization History guih infection-Shira Colby 05/2016 Hospitalization History [facility]- Heart failure, uncontrolled Hyperglycemia. Discharged 06/27/17 06/25/17
--- OUTSIDE RECORDS SUMMARY | 2019-03-03 10:47 | XMS REPORT ---
Author Author ALBIN RENAE Organization [facility] Address [address] [place] [address] Care Team Providers Care Is Support Analyst Name Role Phone ALBIN RENAE Unavailable PROBLEMS Type Condition ICD9-CM Code ACH67-NG Code Onset Dates Condition Status SNOMED Code Problem Chronic pain G89.29 Active 11491277 Problem Dyspepsia R10.13 Active 081119831 Problem Allergic rhinitis J30.9 Active 17558588 Problem Essential hypertension I10 Active 89069617 Problem Type 2 diabetes mellitus with other skin ulcer E11.622 Active 89007714 Problem Skin infection L08.9 Active 826293619 Problem Stress incontinence in female N39.3 Active 89256930 Problem 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 Active 74990408 Problem Non-healing skin lesion L98.9 Active 03073892 Problem Ulcer of right lower leg, with unspecified severity L97.919 Active 202892328 Problem Left ventricular enlargement I51.7 Active 105219779 Problem Atrial enlargement, left I51.7 Active 89693035840476 Problem Urinary incontinence R32 Active 175778876 Problem Cough R05 Active 605204147 Problem Anxiety F41.9 Active 02116740 Problem Moderate episode of recurrent major depressive disorder F33.1 Active 899747269 Problem Foot swelling M79.89 Active 155145137 Problem CAD (coronary artery disease) I25.10 Active 87909828 Problem FCI 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 Active 040900401 Problem Pulmonary HTN I27.2 Active 49476310 Problem Neuropathy G62.9 Active 498161288 Problem Mixed hyperlipidemia E78.2 Active 027681271 Problem Type 2 diabetes mellitus with other circulatory complications E11.59 Active 76385726 ALLERGIES No Information ENCOUNTERS Encounter Location Date Diagnosis [address] [address] Feb, Moderate episode of recurrent major depressive disorder F33.1 [facility] [address] [address] Feb, Wheezing R06.2 and Cough R05 [address] [address] Jan, 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 [address] Jan, [address] [address] Jan, Wheezing R06.2 and Cough R05 [address] [address] Jan, Cough R05 ; Bronchitis J40 ; Wheezing R06.2 ; Unspecified superficial injury of left lesser toe(s), subsequent encounter S90.935D and Type 2 diabetes mellitus with other circulatory complications E11.[address] [address] Jan, [address] [address] December, [address] [address] December, [address] [address] December, Encounter for removal of sutures Z48.[address] [address] December, 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 [address] December, [address] [address] December, Infection of toe L08.[address] [address] December, [facility] [address] 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 ; Urinary incontinence R32 and Type 2 diabetes mellitus with other circulatory complications E11.59 [facility] [address], [place] [address] December, Essential hypertension I10 ; Type 2 diabetes mellitus with other circulatory complications E11.59 and Dizziness R42 [facility] [address], [place] [address] December, Dizziness R42 ; Essential hypertension I10 and Type 2 diabetes mellitus with other circulatory complications E11.[address] [address] Nov, Breast lump N63.[address] [address] Nov, Breast lump N63.[address] [address] Nov, Breast lump N63.[address] [address] Nov, [address] [address] Nov, Mixed hyperlipidemia E78.2 ; Essential hypertension I10 and FCI 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 [address] Nov, Essential hypertension I10 ; Breast cancer screening Z12.31 ; FCI 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 ; Mixed hyperlipidemia E78.2 ; Dysuria R30.0 and Type 2 diabetes mellitus with other circulatory complications E11.59 [facility] [place] [id number], [place] [address] May, [facility] [address], [place] [address] Apr, [facility] [address], [place] [address] Apr, Essential hypertension I10 and 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 [facility] [address], [place] [address] Mar, [facility] [id number] [place] [address] Feb, Onychomycosis B35.1 ; Neuropathy G62.9 and 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 [facility] [id number] [place] [address] Feb, [facility] [id number] [place] [address] December, [facility] [id number] [place] [address] December, Herpes zoster without complication B02.9 ; Onychia of toe of left foot L03.032 ; Ingrowing toenail with infection L60.0 and 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 [facility] [id number] [place] [address] December, [facility] [id number] [place] [address] Nov, [facility] [id number] [place] [address] Oct, 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 [facility] [id number] [place] [address] Oct, Essential hypertension I10 and 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 [facility] [address] [place] [address] Sep, 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 ; Type 2 diabetes mellitus with other skin ulcer E11.622 ; Chronic pain G89.29 ; Anxiety F41.9 ; Essential hypertension I10 ; Hypoxia R09.02 ; Atrial enlargement, left I51.7 and Left ventricular enlargement I51.7 [facility] [id number] [place] [address] Sep, [facility] [address], [place] [address] Aug, [facility] [address] [place] [address] Jul, [facility] [id number] [place] [address] Jul, [facility] [id number] [place] [address] Jul, CAD (coronary artery disease) I25.10 ; Essential hypertension I10 ; Pulmonary HTN I27.2 ; Atrial enlargement, left I51.7 and Left ventricular enlargement I51.7 [facility] [id number] [place] [address] Jun, [facility] [id number] [place] [address] Jun, [facility] [id number] [place] [address] Jun, [facility] [id number] [place] [address] Jun, [facility] [address], [place] [address] Jun, 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 ; Type 2 diabetes mellitus with other skin ulcer E11.622 ; Chronic pain G89.29 ; Anxiety F41.9 ; Essential hypertension I10 ; Ulcer of right lower leg, with unspecified severity L97.919 ; Pulmonary HTN I27.2 ; Hypoxia R09.02 ; Atrial enlargement, left I51.7 and Left ventricular enlargement I51.7 [facility] [address], [place] [address] May, [facility] [address], [place] [address] Apr, 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 ; Type 2 diabetes mellitus with other skin ulcer E11.622 ; Chronic pain G89.29 ; Anxiety F41.9 ; Cough R05 ; Essential hypertension I10 and Ulcer of right lower leg, with unspecified severity L97.919 [place] [id number] [place] [address] Mar, 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 ; Chronic pain G89.29 ; Anxiety F41.9 ; Type 2 diabetes mellitus with other skin ulcer E11.622 ; Cough R05 ; Essential hypertension I10 and Ulcer of right lower leg, with unspecified severity L97.919 [facility] [place] [id number] [place] [address] Feb, [facility] [id number] [place] [address] Feb, 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 ; Chronic pain G89.29 ; Anxiety F41.9 ; Type 2 diabetes mellitus with other skin ulcer E11.622 ; Cough R05 and Essential hypertension I10 [facility] [place] [id number] [place] [address] Jan, Chronic pain G89.29 ; Anxiety F41.9 and Foot swelling M79.89 [facility] [id number] [place] [address] December, Chronic pain G89.29 ; Anxiety F41.9 and Stress incontinence in female N39.3 [facility] [id number] [place] [address] December, [facility] [id number] [place] [address] Nov, [facility] [id number] [place] [address] Nov, [facility] [id number] [place] [address] Nov, [place] [address] [place] [address] Nov, Chronic pain G89.29 ; Anxiety F41.9 ; Non-healing skin lesion L98.9 and Type 2 diabetes mellitus with other skin ulcer E11.622 [facility] [id number] [place] [address] Nov, 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 [facility] [id number] [place] [address] Nov, [facility] [id number] [place] [address] Nov, [facility] [id number] [place] [address] Nov, [facility] [id number] [place] [address] Nov, [facility] [id number] [place] [address] Nov, 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 [facility] [id number] [place] [address] Oct, 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 ; Essential hypertension I10 ; Chronic pain G89.29 ; Anxiety F41.9 and Skin infection L08.9 [facility] [id number] [place] [address] Oct, [facility] [id number] [place] [address] Sep, [facility] [id number] [place] [address] Sep, 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 ; Chronic pain G89.29 ; Anxiety F41.9 and Allergic rhinitis J30.9 [facility] [id number] [place] [address] Aug, Diabetic polyneuropathy associated with type 2 diabetes mellitus E11.42 ; Chronic pain G89.29 ; Anxiety F41.9 and Allergic rhinitis J30.9 [facility] [place] [id number] [place] [address] Jul, [facility] [address] [address] Jul, Diabetic polyneuropathy associated with type 2 diabetes mellitus E11.42 ; Dyspepsia R10.13 ; Essential hypertension I10 ; 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 ; CAD (coronary artery disease) I25.10 ; Chronic pain G89.29 ; Anxiety F41.9 ; Dysuria R30.0 and Pain of left lower leg M79.662 [place] [address] [address] Jul, [facility] [address] [address] Jun, Diabetic polyneuropathy associated with type 2 diabetes mellitus E11.42 and 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 [facility] [address] [address] Jun, [facility] [place] [address] [address] Jun, Neuropathy G62.9 ; Arthritis M19.90 ; Leg cramps R25.2 and Anxiety F41.9 [facility] [place] [id number] [place] [address] May, [facility] [place] [address] [address] May, [facility] [address] [address] May, Diabetic polyneuropathy associated with type 2 diabetes mellitus E11.42 [facility] [address] [address] May, [facility] [id number], [place] [address] Apr, [facility] [address], [place] [address] Apr, [facility] [address], [place] [address] Apr, [facility] [address] [place] [address] 14 Apr, 2015 [facility] [address], [place] [address] Apr, [facility] [address], [place] [address] Apr, [facility] [address], [place] [address] Apr, Diabetes with renal manifestations, type II or unspecified type, uncontrolled 250.42 ; Coronary atherosclerosis of unspecified type of vessel, skull valley or graft 414.00 ; Polyneuropathy in diabetes 357.2 ; Hypertension 401.9 ; Anxiety 300.00 ; GERD (gastroesophageal reflux disease) 530.81 and Type 2 diabetes mellitus with pressure callus 250.80 [facility] [address], [place] [address] Mar, [facility] [address], [place] [address] Mar, [facility] [address], [place] [address] Mar, [facility] [address], [place] [address] Mar, [facility] [address], [place] [address] Mar, Diabetes with renal manifestations, type II or unspecified type, uncontrolled 250.42 ; Coronary atherosclerosis of unspecified type of vessel, skull valley or graft 414.00 ; Polyneuropathy in diabetes 357.2 ; Hypertension 401.9 and Anxiety 300.00 [facility] [address], [place] [address] 05 Mar, 2015 Routine gynecological examination V72.31 ; Breast cancer screening V76.10 ; Recurrent urinary tract infection 599.0 ; Mastodynia 611.71 and Tobacco abuse 305.1 [facility] [id number] [place] [address] Feb, [facility] [id number] [place] [address] Jan, [facility] [id number] [place] [address] Jan, [facility] [id number] [place] [address] Jan, [facility] [id number] [place] [address] Jan, [facility] [id number] [place] [address] December, [facility] [id number] [place] [address] December, [facility] [id number], [place] [address] Nov, [facility] [id number] [place] [address] 14 Nov, 2014 [facility] [address], [place] [address] Nov, [facility] [id number] [place] [address] Oct, [facility] [id number], [place] [address] Oct, [facility] [id number] [place] [address] 16 Oct, 2014 [facility] [place] [facility] [address] [id number] [place] [address] 16 Oct, 2014 [facility] [place] [facility] [address] [id number] [place] [address] 16 Oct, 2014 [facility] [place] [facility] [address] [id number] [place] [address] 16 Oct, 2014 [facility] [place] [facility] [address] [id number] [place] [address] 16 Oct, 2014 [facility] [place] [facility] [address] [id number] [place] [address] 16 Oct, 2014 [facility] [place] [facility] [address] [id number] [place] [address] 16 Oct, 2014 [facility] [place] [facility] [address] [id number] [place] [address] 16 Oct, 2014 [facility] [place] [facility] [address] [id number] [place] [address] 16 Oct, 2014 [facility] [place] [facility] [address] [id number] [place] [address] Oct, 2014 [facility] [place] [facility] [address] [id number] [place] [address] 04 Oct, 2014 [facility] [place] [facility] [address] [id number] [place] [address] 04 Oct, 2014 [facility] [place] [facility] [address] [id number] [place] [address] Oct, 2014 [facility] [place] [facility] [address] [id number] [place] [address] Oct, 2014 [facility] [place] [facility] [address] [id number] [place] [address] Oct, 2014 [facility] [place] [facility] [address] [id number] [place] [address] Oct, 2014 [facility] [place] [facility] [address] [id number] [place] [address] Sep, 2014 [facility] [place] [facility] [address] [id number] [place] [address] Sep, 2014 [facility] [place] [facility] [address] [facility] [id number] [place] [address] 20 Sep, 2014 [facility] [place] [facility] [address] [facility] [id number] [place] [address] Sep, 2014 [facility] [place] [facility] [address] [facility] [id number] [place] [address] Sep, 2014 [facility] [place] [facility] [address] [facility] [id number] [place] [address] Sep, 2014 [facility] [place] [facility] [id number] [place] [address] Sep, 2014 [facility] [place] [facility] [id number] [place] [address] Sep, 2014 [facility] [place] [facility] [address] [facility] [id number] [place] [address] 17 Sep, 2014 [facility] [place] [facility] [id number] [place] [address] 17 Sep, 2014 [facility] [place] [facility] [id number] [place] [address] Sep, 2014 [facility] [place] [facility] [address] [facility] [id number] [place] [address] Sep, 2014 [facility] [place] [facility] [address] [facility] [id number] [place] [address] 05 Sep, 2014 [facility] [place] [facility] [address] [facility] [id number] [place] [address] Sep, 2014 [facility] [place] [facility] [address] [facility] [id number], [place] [address] 02 Sep, 2014 [facility] [place] [facility] [id number], [place] [address] Aug, [facility] [place] [facility] [address] [id number] [place] [address] Aug, [facility] [place] [facility] [address] [id number] [place] [address] Aug, [facility] [place] [facility] [address] [id number] [place] [address] Aug, [facility] [place] [facility] [address] [id number] [place] [address] Aug, [facility] [place] [facility] [address] [id number] [place] [address] Aug, [facility] [place] [facility] [address] [id number] [place] [address] Aug, [facility] [place] [facility] [address] [id number] [place] [address] Aug, [facility] [place] [facility] [address] [id number] [place] [address] Aug, [facility] [place] [facility] [address] [id number] [place] [address] Aug, [facility] [place] [facility] [address] [id number] [place] [address] Aug, [facility] [place] [facility] [address] [id number] [place] [address] Aug, [facility] [place] [facility] [address] [id number], [place] [address] Aug, [facility] [place] [facility] [address] [id number] [place] [address] Jul, [facility] [place] [facility] [address] [id number] [place] [address] Jul, [facility] [place] [facility] [address] [id number] [place] [address] Jul, [facility] [place] [facility] [address] [id number] [place] [address] Jul, [facility] [place] [facility] [address] [id number] [place] [address] Jul, [facility] [place] [facility] [address] [id number] [place] [address] Jul, [facility] [place] [facility] [address] [id number] [place] [address] Jul, [facility] [place] [facility] [address] [id number] [place] [address] Jul, [facility] [place] [facility] [address] [id number] [place] [address] Jun, [facility] [place] [facility] [address] [id number] [place] [address] Jun, [facility] [place] [facility] [address] [id number] [place] [address] Jun, [facility] [place] [facility] [address] [id number] [place] [address] Jun, [facility] [place] [facility] [address] [id number] [place] [address] Jun, [facility] [place] [facility] [address] [id number] [place] [address] Jun, [facility] [place] [facility] [address] [id number] [place] [address] Jun, [facility] [place] [facility] [address] [id number] [place] [address] Jun, [facility] [place] [facility] [address] [id number] [place] [address] Jun, [facility] [place] [facility] [address] [id number] [place] [address] Jun, [facility] [place] [facility] [address] [id number] [place] [address] Jun, [facility] [place] [facility] [address] [id number] [place] [address] 14 Jun, 2014 [facility] [place] [facility] [address] [id number] [place] [address] 13 Jun, 2014 [facility] [place] [facility] [address] [id number] [place] [address] Jun, [facility] [place] [facility] [address] [id number] [place] [address] Jun, [facility] [place] [facility] [address] [id number] [place] [address] Jun, [facility] [place] [facility] [address] [id number] [place] [address] May, [facility] [place] [facility] [address] [id number] [place] [address] May, [facility] [place] [facility] [address] [id number] [place] [address] May, [facility] [place] [facility] [address] [id number] [place] [address] May, [facility] [place] [facility] [address] [id number] [place] [address] May, [facility] [place] [facility] [address] [id number], [place] [address] May, [facility] [place] [facility] [address] [id number], [place] [address] May, [facility] [place] [facility] [address] [id number], [place] [address] May, [facility] [place] [facility] [address] [id number], [place] [address] May, [facility] [place] [facility] [address] [id number], [place] [address] Apr, [facility] [place] [facility] [address] [id number], [place] [address] Apr, [facility] [place] [facility] [address] [id number] [place] [address] Apr, [facility] [place] [facility] [address] [id number] [place] [address] Apr, [facility] [place] [facility] [address] [id number] [place] [address] Mar, [facility] [place] [facility] [address] [id number] [place] [address] Mar, [facility] [place] [facility] [address] [id number] [place] [address] Mar, [facility] [place] [facility] [address] [address] [id number] [place] [address] Mar, [facility] [place] [facility] [address] [id number] [place] [address] Feb, [facility] [place] [facility] [address] [id number] [place] [address] Feb, [facility] [place] [facility] [address] [id number] [place] [address] Jan, [facility] [place] [facility] [address] [id number] [place] [address] Jan, [facility] [place] [facility] [address] [id number] [place] [address] Jan, [facility] [place] [facility] [address] [id number] [place] [address] Jan, [facility] [place] [facility] [address] [id number] [place] [address] Jan, [facility] [place] [facility] [address] [id number] [place] [address] Jan, [facility] [place] [facility] [address] [id number] [place] [address] Jan, [facility] [place] [facility] [address] [id number] [place] [address] Jan, [facility] [place] [facility] [address] [id number] [place] [address] Jan, [facility] [place] [facility] [address] [id number] [place] [address] Jan, [facility] [place] [facility] [address] [id number] [place] [address] Jan, [facility] [place] [facility] [address] [id number] [place] [address] Jan, [facility] [place] [facility] [address] [id number] [place] [address] Jan, [facility] [place] [facility] [address] [id number] [place] [address] December, [facility] [place] [facility] [address] [id number] [place] [address] December, [facility] [place] [facility] [address] [id number] [place] [address] December, [facility] [place] [facility] [address] [id number] [place] [address] December, [facility] [place] [facility] [address] [id number] [place] [address] December, [facility] [place] [facility] [address] [id number] [place] [address] Nov, [facility] [place] [facility] [address] [id number] [place] [address] Nov, [facility] [place] [facility] [address] [id number] [place] [address] Nov, [facility] [place] [facility] [address] [id number] [place] [address] Nov, [facility] [place] [facility] [address] [id number] [place] [address] Nov, [facility] [place] [facility] [address] [id number] [place] [address] Nov, [facility] [place] [facility] [address] [id number] [place] [address] Nov, [facility] [place] [facility] [address] [id number] [place] [address] Nov, [facility] [place] [facility] [address] [id number] [place] [address] Nov, [facility] [place] [facility] [address] [id number] [place] [address] Nov, [facility] [place] [facility] [address] [id number] [place] [address] Jun, [facility] [place] [facility] [address] [id number] [place] [address] Jun, [facility] [place] [facility] [address] [id number], [place] [address] May, [facility] [place] [facility] [address] [id number] [place] [address] May, [facility] [place] [facility] [address] [id number], [place] [address] May, [facility] [place] [facility] [address] [id number], [place] [address] May, [facility] [place] [facility] [address] [id number], [place] [address] May, [facility] [place] [facility] [address] [id number] [place] [address] May, [facility] [place] [facility] [address] [id number], [place] [address] May, [facility] [place] [facility] [address] [id number] [place] [address] May, [facility] [place] [facility] [address] [id number] [place] [address] May, [facility] [address] [id number] [place] [address] 25 Apr, 2011 [facility] [address] [id number] [place] [address] 25 Apr, 2011 [facility] [address] [id number] [place] [address] 25 Apr, 2011 [facility] [address] [id number] [place] [address] 21 Apr, 2011 [facility] [address] [id number] [place] [address] 20 Apr, 2011 [facility] [address] [id number] [place] [address] 19 Apr, 2011 [facility] [address] [id number] [place] [address] 05 Apr, 2011 [facility] [address] [id number] [place] [address] 04 Apr, 2012 [facility] [address] [id number] [place] [address] 28 Mar, 2012 [facility] [address] [id number] [place] [address] 27 Mar, 2012 [facility] [address] [id number] [place] [address] 16 Mar, 2012 [facility] [address] [id number] [place] [address] 14 Mar, 2012 [facility] [address] [id number] [place] [address] Mar, [address] [id number] Mar, [facility] [address] [id number] [place] [address] Mar, [facility] [address] [id number] [place] [address] 31 Feb, 2012 [facility] [address] [id number] [place] [address] Feb, [facility] [place] [facility] [address] [id number] [place] [address] 16 Feb, 2012 [facility] [address] [id number] [place] [address] Feb, [facility] [address] [id number] [place] [address] Feb, [facility] [address] [id number] [place] [address] Feb, [facility] [address] [id number] [place] [address] Jan, [facility] [address] [id number] [place] [address] Jan, [facility] [address] [id number] [place] [address] Jan, [facility] [place] [facility] [address] [id number] [place] [address] Jan, [facility] [address] [id number] [place] [address] Jan, [facility] [place] [facility] [address] [id number] [place] [address] Jan, [facility] [place] [facility] [address] [id number] [place] [address] Jan, [facility] [place] [facility] [address] [id number] [place] [address] December, [facility] [place] [facility] [address] [id number] [place] [address] December, [facility] [place] [facility] [address] [id number] [place] [address] December, [facility] [place] [facility] [address] [id number] [place] [address] 30 Nov, 2011 [facility] [place] [facility] [address] [id number] [place] [address] Nov, [facility] [place] [facility] [address] [id number] [place] [address] Nov, [facility] [place] [facility] [address] [id number] [place] [address] Nov, [facility] [place] [facility] [address] [id number] [place] [address] Nov, [facility] [place] [facility] [address] [id number] [place] [address] Nov, [facility] [place] [facility] [address] [id number] [place] [address] Nov, [facility] [place] [facility] [address] [id number] [place] [address] Nov, [facility] [place] [facility] [address] [id number] [place] [address] Oct, [facility] [place] [facility] [address] [id number] [place] [address] Oct, [facility] [place] [facility] [address] [id number] [place] [address] Oct, [facility] [place] [facility] [address] [id number] [place] [address] Oct, [facility] [place] [facility] [address] [id number] [place] [address] Sep, [facility] [place] [facility] [address] [id number] [place] [address] Sep, [facility] [place] [facility] [address] [id number] [place] [address] Sep, [facility] [place] [facility] [address] [id number] [place] [address] Aug, [facility] [place] [facility] [address] [id number] [place] [address] Aug, [facility] [place] [facility] [address] [id number] [place] [address] Aug, [facility] [place] [facility] [address] [id number] [place] [address] Aug, [facility] [place] [facility] [address] [id number] [place] [address] 15 Jul, 2011 [facility] [place] [facility] [address] [id number] [place] [address] 15 Jul, 2011 [facility] [place] [facility] [address] [id number] [place] [address] 15 Jul, 2011 [facility] [place] [facility] [address] [id number] [place] [address] 30 Jun, 2011 [facility] [place] [facility] [address] [id number] [place] [address] 22 Jun, 2011 [facility] [place] [facility] [address] [id number] [place] [address] 15 Jun, 2011 [facility] [place] [facility] [address] [id number] [place] [address] 14 Jun, 2011 [facility] [place] [facility] [address] [id number] [place] [address] 14 Jun, 2011 [facility] [place] [facility] [address] [id number], [place] [address] 14 Jun, 2011 [facility] [place] [facility] [address] [id number] [place] [address] 31 May, 2011 [facility] [place] [facility] [address] [id number] [place] [address] 31 May, 2011 [facility] [place] [facility] [address] [id number], [place] [address] 28 May, 2011 [facility] [place] [facility] [address] [facility] [id number] [place] [address] Apr, [facility] [address] [facility] [id number] [place] [address] Mar, [facility] [address] 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 Discharged 06/27/17 06/25/17
--- OUTSIDE RECORDS SUMMARY | 2019-03-03 10:48 | XMS REPORT ---
Author Author ALBIN RENAE Organization [facility] Address [address] [place] [address] Care Team Providers Care Glass Artist Name Role Phone ALBIN RENAE Unavailable PROBLEMS Type Condition ICD9-CM Code RVB09-DS Code Onset Dates Condition Status SNOMED Code Problem Chronic pain G89.29 Active 88103335 Problem Dyspepsia R10.13 Active 515250292 Problem Allergic rhinitis J30.9 Active 34648661 Problem Essential hypertension I10 Active 31005011 Problem Type 2 diabetes mellitus with other skin ulcer E11.622 Active 83370742 Problem Skin infection L08.9 Active 522207874 Problem Stress incontinence in female N39.3 Active 86644587 Problem Diabetic polyneuropathy associated with type 2 diabetes mellitus E11.42 Active 19778284 Problem Non-healing skin lesion L98.9 Active 27528816 Problem Ulcer of right lower leg, with unspecified severity L97.919 Active 938975751 Problem Left ventricular enlargement I51.7 Active 141772719 Problem Atrial enlargement, left I51.7 Active 65930813038895 Problem Urinary incontinence R32 Active 219424663 Problem Cough R05 Active 068108829 Problem Anxiety F41.9 Active 00347563 Problem Moderate episode of recurrent major depressive disorder F33.1 Active 850454681 Problem Foot swelling M79.89 Active 475488388 Problem CAD (coronary artery disease) I25.10 Active 97122618 Problem assisted 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 Active 699164884 Problem Pulmonary HTN I27.2 Active 01016310 Problem Neuropathy G62.9 Active 181890003 Problem Mixed hyperlipidemia E78.2 Active 381798701 Problem Type 2 diabetes mellitus with other circulatory complications E11.59 Active 07466848 ALLERGIES No Information ENCOUNTERS Encounter Location Date Diagnosis [address] [address] Feb, Moderate episode of recurrent major depressive disorder F33.1 [facility] [address] [address] Feb, Wheezing R06.2 and Cough R05 [address] [address] Jan, Diabetic polyneuropathy associated with type 2 diabetes mellitus E11.[address] [address] Jan, [address] [address] Jan, Wheezing R06.2 and Cough R05 [address] [address] Jan, Cough R05 ; Bronchitis J40 ; Wheezing R06.2 ; Unspecified superficial injury of left lesser toe(s), subsequent encounter S90.935D and Type 2 diabetes mellitus with other circulatory complications E11.[address] [address] Jan, [address] [address] December, [address] [address] December, [address] [address] December, Encounter for removal of sutures Z48.[address] [address] December, Diabetic polyneuropathy associated with type 2 diabetes mellitus E11.[address] [address] December, [address] [address] December, Infection of toe L08.[address] [address] December, [facility] [address] [facility] [id number] [place] [address] December, Diabetic polyneuropathy associated with type 2 diabetes mellitus E11.42 ; 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 ; Urinary incontinence R32 and Type 2 diabetes mellitus with other circulatory complications E11.59 [facility] [address] [address] December, Essential hypertension I10 ; Type 2 diabetes mellitus with other circulatory complications E11.59 and Dizziness R42 [facility] [address] [address] December, Dizziness R42 ; Essential hypertension I10 and Type 2 diabetes mellitus with other circulatory complications E11.[address] [address] Nov, Breast lump N63.[address] [address] Nov, Breast lump N63.[address] [address] Nov, Breast lump N63.[address] [address] Nov, [address] [address] Nov, Mixed hyperlipidemia E78.2 ; Essential hypertension I10 and assisted 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 [address] Nov, Essential hypertension I10 ; Breast cancer screening Z12.31 ; assisted 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 ; Mixed hyperlipidemia E78.2 ; Dysuria R30.0 and Type 2 diabetes mellitus with other circulatory complications E11.59 [facility] [id number] [address] May, [facility] [address] [address] Apr, [facility] [address] [address] Apr, Essential hypertension I10 and Diabetic polyneuropathy associated with type 2 diabetes mellitus E11.42 [facility] [address] [address] Mar, [facility] [id number] [place] [address] Feb, Onychomycosis B35.1 ; Neuropathy G62.9 and Diabetic polyneuropathy associated with type 2 diabetes mellitus E11.42 [facility] [id number] [place] [address] Feb, [facility] [id number] [place] [address] December, [facility] [id number] [place] [address] December, Herpes zoster without complication B02.9 ; Onychia of toe of left foot L03.032 ; Ingrowing toenail with infection L60.0 and Diabetic polyneuropathy associated with type 2 diabetes mellitus E11.42 [facility] [id number] [place] [address] December, [facility] [id number] [place] [address] Nov, [facility] [id number] [place] [address] Oct, Diabetic polyneuropathy associated with type 2 diabetes mellitus E11.42 [facility] [id number] [place] [address] Oct, Essential hypertension I10 and Diabetic polyneuropathy associated with type 2 diabetes mellitus E11.42 [facility] [address] [place] [address] Sep, Diabetic polyneuropathy associated with type 2 diabetes mellitus E11.42 ; Type 2 diabetes mellitus with other skin ulcer E11.622 ; Chronic pain G89.29 ; Anxiety F41.9 ; Essential hypertension I10 ; Hypoxia R09.02 ; Atrial enlargement, left I51.7 and Left ventricular enlargement I51.7 [facility] [id number] [place] [address] Sep, [facility] [address] [address] Aug, [facility] [address] [place] [address] Jul, [facility] [id number] [place] [address] Jul, [facility] [id number] [place] [address] Jul, CAD (coronary artery disease) I25.10 ; Essential hypertension I10 ; Pulmonary HTN I27.2 ; Atrial enlargement, left I51.7 and Left ventricular enlargement I51.7 [facility] [id number] [place] [address] Jun, [facility] [id number] [place] [address] Jun, [facility] [id number] [place] [address] Jun, [facility] [id number] [place] [address] Jun, [facility] [address] [address] Jun, Diabetic polyneuropathy associated with type 2 diabetes mellitus E11.42 ; Type 2 diabetes mellitus with other skin ulcer E11.622 ; Chronic pain G89.29 ; Anxiety F41.9 ; Essential hypertension I10 ; Ulcer of right lower leg, with unspecified severity L97.919 ; Pulmonary HTN I27.2 ; Hypoxia R09.02 ; Atrial enlargement, left I51.7 and Left ventricular enlargement I51.7 [facility] [address] [address] May, [facility] [address] [address] Apr, Diabetic polyneuropathy associated with type 2 diabetes mellitus E11.42 ; Type 2 diabetes mellitus with other skin ulcer E11.622 ; Chronic pain G89.29 ; Anxiety F41.9 ; Cough R05 ; Essential hypertension I10 and Ulcer of right lower leg, with unspecified severity L97.919 [place] [id number] [place] [address] Mar, Diabetic polyneuropathy associated with type 2 diabetes mellitus E11.42 ; Chronic pain G89.29 ; Anxiety F41.9 ; Type 2 diabetes mellitus with other skin ulcer E11.622 ; Cough R05 ; Essential hypertension I10 and Ulcer of right lower leg, with unspecified severity L97.919 [facility] [id number] [place] [address] Feb, [facility] [id number] [place] [address] Feb, Diabetic polyneuropathy associated with type 2 diabetes mellitus E11.42 ; Chronic pain G89.29 ; Anxiety F41.9 ; Type 2 diabetes mellitus with other skin ulcer E11.622 ; Cough R05 and Essential hypertension I10 [facility] [id number] [place] [address] Jan, Chronic pain G89.29 ; Anxiety F41.9 and Foot swelling M79.89 [facility] [id number] [place] [address] December, Chronic pain G89.29 ; Anxiety F41.9 and Stress incontinence in female N39.3 [facility] [id number] [place] [address] December, [facility] [id number] [place] [address] Nov, [facility] [id number] [place] [address] Nov, [facility] [id number] [place] [address] Nov, [place] [address] [place] [address] Nov, Chronic pain G89.29 ; Anxiety F41.9 ; Non-healing skin lesion L98.9 and Type 2 diabetes mellitus with other skin ulcer E11.622 [facility] [id number] [place] [address] Nov, Diabetic polyneuropathy associated with type 2 diabetes mellitus E11.42 [facility] [id number] [place] [address] Nov, [facility] [id number] [place] [address] Nov, [facility] [id number] [place] [address] Nov, [facility] [id number] [place] [address] Nov, [facility] [id number] [place] [address] Nov, Diabetic polyneuropathy associated with type 2 diabetes mellitus E11.42 [facility] [id number] [place] [address] Oct, Diabetic polyneuropathy associated with type 2 diabetes mellitus E11.42 ; Essential hypertension I10 ; Chronic pain G89.29 ; Anxiety F41.9 and Skin infection L08.9 [facility] [id number] [place] [address] Oct, [facility] [id number] [place] [address] Sep, [facility] [id number] [place] [address] Sep, Diabetic polyneuropathy associated with type 2 diabetes mellitus E11.42 ; Chronic pain G89.29 ; Anxiety F41.9 and Allergic rhinitis J30.9 [facility] [id number] [place] [address] Aug, Diabetic polyneuropathy associated with type 2 diabetes mellitus E11.42 ; Chronic pain G89.29 ; Anxiety F41.9 and Allergic rhinitis J30.9 [facility] [facility] [id number] [place] [address] Jul, [place] [facility] [address] [address] Jul, Diabetic polyneuropathy associated with type 2 diabetes mellitus E11.42 ; Dyspepsia R10.13 ; Essential hypertension I10 ; 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 ; CAD (coronary artery disease) I25.10 ; Chronic pain G89.29 ; Anxiety F41.9 ; Dysuria R30.0 and Pain of left lower leg M79.662 [place] [facility] [address] [address] Jul, [place] [facility] [address] [address] Jun, Diabetic polyneuropathy associated with type 2 diabetes mellitus E11.42 and 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 [facility] [facility] [address] [address] Jun, [place] [facility] [address] [address] Jun, Neuropathy G62.9 ; Arthritis M19.90 ; Leg cramps R25.2 and Anxiety F41.9 [facility] [id number] [place] [address] May, [place] [address] [address] May, [place] [facility] [address] [address] May, Diabetic polyneuropathy associated with type 2 diabetes mellitus E11.42 [place] [facility] [address] [address] May, [facility] [id number] [address] Apr, [facility] [address] [address] Apr, [facility] [address] [address] Apr, [facility] [address] [place] [address] 14 Apr, 2015 [facility] [address] [address] Apr, [facility] [address] [address] Apr, [facility] [address] [address] Apr, Diabetes with renal manifestations, type II or unspecified type, uncontrolled 250.42 ; Coronary atherosclerosis of unspecified type of vessel, [place] or graft 414.00 ; Polyneuropathy in diabetes 357.2 ; Hypertension 401.9 ; Anxiety 300.00 ; GERD (gastroesophageal reflux disease) 530.81 and Type 2 diabetes mellitus with pressure callus 250.80 [facility] [address] [address] Mar, [facility] [address] [address] Mar, [facility] [address] [address] Mar, [facility] [address] [address] Mar, [facility] [address] [address] Mar, Diabetes with renal manifestations, type II or unspecified type, uncontrolled 250.42 ; Coronary atherosclerosis of unspecified type of vessel, [place] or graft 414.00 ; Polyneuropathy in diabetes 357.2 ; Hypertension 401.9 and Anxiety 300.00 [facility] [address] [address] 05 Mar, 2015 Routine gynecological examination V72.31 ; Breast cancer screening V76.10 ; Recurrent urinary tract infection 599.0 ; Mastodynia 611.71 and Tobacco abuse 305.1 [facility] [id number] [place] [address] Feb, [facility] [id number] [place] [address] Jan, [facility] [id number] [place] [address] Jan, [facility] [id number] [place] [address] Jan, [facility] [id number] [place] [address] Jan, [facility] [id number] [place] [address] December, [facility] [id number] [place] [address] December, [facility] [id number] [address] Nov, [facility] [id number] [place] [address] 14 Nov, 2014 [facility] [address] [address] Nov, [facility] [id number] [place] [address] Oct, [facility] [id number] [address] Oct, [facility] [id number] [place] [address] 16 Oct, 2014 [facility] [place] [facility] [address] [id number] [place] [address] 16 Oct, 2014 [facility] [place] [facility] [address] [id number] [place] [address] 16 Oct, 2014 [facility] [place] [facility] [address] [id number] [place] [address] 16 Oct, 2014 [facility] [place] [facility] [address] [id number] [place] [address] 16 Oct, 2014 [facility] [place] [facility] [address] [id number] [place] [address] 16 Oct, 2014 [facility] [place] [facility] [address] [id number] [place] [address] 16 Oct, 2014 [facility] [place] [facility] [address] [id number] [place] [address] 16 Oct, 2014 [facility] [place] [facility] [address] [id number] [place] [address] 16 Oct, 2014 [facility] [place] [facility] [address] [id number] [place] [address] Oct, 2014 [facility] [place] [facility] [address] [id number] [place] [address] 04 Oct, 2014 [facility] [place] [facility] [address] [id number] [place] [address] 04 Oct, 2014 [facility] [place] [facility] [address] [id number] [place] [address] Oct, 2014 [facility] [place] [facility] [address] [id number] [place] [address] Oct, 2014 [facility] [place] [facility] [address] [id number] [place] [address] Oct, 2014 [facility] [place] [facility] [address] [id number] [place] [address] Oct, 2014 [facility] [place] [facility] [address] [id number] [place] [address] Sep, 2014 [facility] [place] [facility] [address] [id number] [place] [address] Sep, 2014 [facility] [place] [facility] [address] [facility] [id number] [place] [address] 20 Sep, 2014 [facility] [place] [facility] [address] [facility] [id number] [place] [address] Sep, 2014 [facility] [place] [facility] [address] [facility] [id number] [place] [address] Sep, 2014 [facility] [place] [facility] [address] [facility] [id number] [place] [address] Sep, 2014 [facility] [place] [facility] [id number] [place] [address] Sep, 2014 [facility] [place] [facility] [id number] [place] [address] Sep, 2014 [facility] [place] [facility] [address] [facility] [id number] [place] [address] 17 Sep, 2014 [facility] [place] [facility] [id number] [place] [address] 17 Sep, 2014 [facility] [place] [facility] [id number] [place] [address] Sep, 2014 [facility] [place] [facility] [address] [facility] [id number] [place] [address] Sep, 2014 [facility] [place] [facility] [address] [facility] [id number] [place] [address] 05 Sep, 2014 [facility] [place] [facility] [address] [facility] [id number] [place] [address] Sep, 2014 [facility] [place] [facility] [address] [facility] [id number] [address] 02 Sep, 2014 [facility] [place] [facility] [id number] [address] Aug, [facility] [place] [facility] [address] [id number] [place] [address] Aug, [facility] [place] [facility] [address] [id number] [place] [address] Aug, [facility] [place] [facility] [address] [id number] [place] [address] Aug, [facility] [place] [facility] [address] [id number] [place] [address] Aug, [facility] [place] [facility] [address] [id number] [place] [address] Aug, [facility] [place] [facility] [address] [id number] [place] [address] Aug, [facility] [place] [facility] [address] [id number] [place] [address] Aug, [facility] [place] [facility] [address] [id number] [place] [address] Aug, [facility] [place] [facility] [address] [id number] [place] [address] Aug, [facility] [place] [facility] [address] [id number] [place] [address] Aug, [facility] [place] [facility] [address] [id number] [place] [address] Aug, [facility] [place] [facility] [address] [id number] [address] Aug, [facility] [place] [facility] [address] [id number] [place] [address] Jul, [facility] [place] [facility] [address] [id number] [place] [address] Jul, [facility] [place] [facility] [address] [id number] [place] [address] Jul, [facility] [place] [facility] [address] [id number] [place] [address] Jul, [facility] [place] [facility] [address] [id number] [place] [address] Jul, [facility] [place] [facility] [address] [id number] [place] [address] Jul, [facility] [place] [facility] [address] [id number] [place] [address] Jul, [facility] [place] [facility] [address] [id number] [place] [address] Jul, [facility] [place] [facility] [address] [id number] [place] [address] Jun, [facility] [place] [facility] [address] [id number] [place] [address] Jun, [facility] [place] [facility] [address] [id number] [place] [address] Jun, [facility] [place] [facility] [address] [id number] [place] [address] Jun, [facility] [place] [facility] [address] [id number] [place] [address] Jun, [facility] [place] [facility] [address] [id number] [place] [address] Jun, [facility] [place] [facility] [address] [id number] [place] [address] Jun, [facility] [place] [facility] [address] [id number] [place] [address] Jun, [facility] [place] [facility] [address] [id number] [place] [address] Jun, [facility] [place] [facility] [address] [id number] [place] [address] Jun, [facility] [place] [facility] [address] [id number] [place] [address] Jun, [facility] [place] [facility] [address] [id number] [place] [address] 14 Jun, 2014 [facility] [place] [facility] [address] [id number] [place] [address] 13 Jun, 2014 [facility] [place] [facility] [address] [id number] [place] [address] Jun, [facility] [place] [facility] [address] [id number] [place] [address] Jun, [facility] [place] [facility] [address] [id number] [place] [address] Jun, [facility] [place] [facility] [address] [id number] [place] [address] May, [facility] [place] [facility] [address] [id number] [place] [address] May, [facility] [place] [facility] [address] [id number] [place] [address] May, [facility] [place] [facility] [address] [id number] [place] [address] May, [facility] [place] [facility] [address] [id number] [place] [address] May, [facility] [place] [facility] [address] [id number] [address] May, [facility] [place] [facility] [address] [id number] [place] [address] May, [facility] [place] [facility] [address] [id number] [place] [address] May, [facility] [place] [facility] [address] [id number] [place] [address] May, [facility] [place] [facility] [address] [id number] [place] [address] Apr, [facility] [place] [facility] [address] [id number] [place] [address] Apr, [facility] [place] [facility] [address] [id number] [place] [address] Apr, [facility] [place] [facility] [address] [id number] [place] [address] Apr, [facility] [place] [facility] [address] [id number] [place] [address] Mar, [facility] [place] [facility] [address] [id number] [place] [address] Mar, [facility] [place] [facility] [address] [id number] [place] [address] Mar, [facility] [place] [facility] [address] [id number] [place] [address] Mar, [facility] [place] [facility] [address] [id number] [place] [address] Feb, [facility] [place] [facility] [address] [id number] [place] [address] Feb, [facility] [place] [facility] [address] [id number] [place] [address] Jan, [facility] [place] [facility] [address] [id number] [place] [address] Jan, [facility] [place] [facility] [address] [id number] [place] [address] Jan, [facility] [place] [facility] [address] [id number] [place] [address] Jan, [facility] [place] [facility] [address] [id number] [place] [address] Jan, [facility] [facility] [address] [id number] [place] [address] Jan, [facility] [place] [facility] [address] [id number] [place] [address] Jan, [facility] [place] [facility] [address] [id number] [place] [address] Jan, [facility] [place] [facility] [address] [id number] [place] [address] Jan, [facility] [place] [facility] [address] [id number] [place] [address] Jan, [facility] [place] [facility] [address] [id number] [place] [address] Jan, [facility] [place] [facility] [address] [id number] [place] [address] Jan, [facility] [place] [facility] [address] [id number] [place] [address] Jan, [facility] [address] [id number] [place] [address] December, [facility] [facility] [address] [id number] [place] [address] December, [facility] [facility] [address] [id number] [place] [address] December, [facility] [address] [id number] [place] [address] December, [facility] [address] [id number] [place] [address] December, [facility] [facility] [address] [id number] [place] [address] Nov, [facility] [place] [facility] [address] [id number] [place] [address] Nov, [facility] [place] [facility] [address] [id number] [place] [address] Nov, [facility] [address] [id number] [place] [address] Nov, [facility] [place] [facility] [address] [id number] [place] [address] Nov, [facility] [place] [facility] [address] [id number] [place] [address] Nov, [facility] [place] [address] [id number] [place] [address] Nov, [facility] [address] [id number] [place] [address] Nov, [facility] [place] [address] [id number] [place] [address] Nov, [facility] [address] [id number] [place] [address] Nov, [facility] [address] [id number] [place] [address] Jun, [facility] [address] [id number] [place] [address] Jun, [facility] [address] [id number] [place] [address] May, [facility] [address] [id number] [place] [address] May, [facility] [address] [id number] [place] [address] May, [facility] [address] [id number] [place] [address] May, [facility] [address] [id number] [place] [address] May, [facility] [address] [id number] [place] [address] May, [facility] [address] [id number] [place] [address] May, [facility] [address] [id number] [place] [address] May, [facility] [address] [id number] [place] [address] May, [facility] [address] [id number] [place] [address] 25 Apr, 2011 [facility] [address] [id number] [place] [address] 25 Apr, 2011 [facility] [address] [id number] [place] [address] 25 Apr, 2011 [facility] [address] [id number] [place] [address] 21 Apr, 2011 [facility] [address] [id number] [place] [address] 20 Apr, 2011 [facility] [address] [id number] [place] [address] 19 Apr, 2011 [facility] [address] [id number] [place] [address] 05 Apr, 2011 [facility] [address] [id number] [place] [address] 04 Apr, 2012 [facility] [address] [id number] [place] [address] 28 Mar, 2012 [facility] [address] [id number] [place] [address] 27 Mar, 2012 [facility] [address] [id number] [place] [address] 16 Mar, 2012 [facility] [address] [id number] [place] [address] 14 Mar, 2012 [facility] [address] [id number] [place] [address] Mar, [address] [id number] Mar, [facility] [address] [id number] [place] [address] Mar, [facility] [address] [id number] [place] [address] 31 Feb, 2012 [facility] [address] [id number] [place] [address] Feb, [facility] [address] [id number] [place] [address] 16 Feb, 2012 [facility] [address] [id number] [place] [address] Feb, [facility] [address] [id number] [place] [address] Feb, [facility] [address] [id number] [place] [address] Feb, [facility] [address] [id number] [place] [address] Jan, [facility] [address] [id number] [place] [address] Jan, [facility] [address] [id number] [place] [address] Jan, [facility] [address] [id number] [place] [address] Jan, [facility] [address] [id number] [place] [address] Jan, [facility] [address] [id number] [place] [address] Jan, [facility] [address] [id number] [place] [address] Jan, [facility] [address] [id number] [place] [address] December, [facility] [address] [id number] [place] [address] December, [facility] [address] [id number] [place] [address] December, [facility] [address] [id number] [place] [address] 30 Nov, 2011 [facility] [address] [id number] [place] [address] Nov, [facility] [address] [id number] [place] [address] Nov, [facility] [address] [id number] [place] [address] Nov, [facility] [address] [id number] [place] [address] Nov, [facility] [address] [id number] [place] [address] Nov, [facility] [address] [id number] [place] [address] Nov, [facility] [address] [id number] [place] [address] Nov, [facility] [address] [id number] [place] [address] Oct, [facility] [address] [id number] [place] [address] Oct, [facility] [address] [id number] [place] [address] Oct, [facility] [address] [id number] [place] [address] Oct, [facility] [address] [id number] [place] [address] Sep, [facility] [address] [id number] [place] [address] Sep, [facility] [address] [id number] [place] [address] Sep, [facility] [address] [id number] [place] [address] Aug, [facility] [address] [id number] [place] [address] Aug, [facility] [address] [id number] [place] [address] Aug, [facility] [address] [id number] [place] [address] Aug, [facility] [address] [id number] [place] [address] 15 Jul, 2011 [facility] [address] [id number] [place] [address] 15 Jul, 2011 [facility] [address] [id number] [place] [address] 15 Jul, 2011 [facility] [address] [id number] [place] [address] 30 Jun, 2011 [facility] [address] [id number] [place] [address] 22 Jun, 2011 [facility] [address] [id number] [place] [address] 15 Jun, 2011 [facility] [address] [id number] [place] [address] 14 Jun, 2011 [facility] [address] [id number] [place] [address] 14 Jun, 2011 [facility] [address] [id number] [place] [address] 14 Jun, 2011 [facility] [address] [id number] [place] [address] 31 May, 2011 [facility] [address] [id number] [place] [address] 31 May, 2011 [facility] [address] [id number] [place] [address] 28 May, 2011 [facility] [address] [facility] [id number] [place] [address] Apr, [facility] [address] [facility] [id number] [place] [address] Mar, [facility] [address] [facility] [id number] [place] [address] Aug, IMMUNIZATIONS No Known Immunizations SOCIAL HISTORY [...] Coronary atherosclerosis of unspecified type of vessel, [place] or graft Surgical History partial hysterectomy 1991 Surgical History heart cath 2004, 2011 Hospitalization History minor [place] 2004 Hospitalization History [facility] for pancreatitis 11/2010 [facility]ization History [facility] for [facility] 12/2011 Hospitalization 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 Discharged 06/27/17 06/25/17
--- OUTSIDE RECORDS SUMMARY | 2019-03-03 10:49 | XMS REPORT ---
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 Name Role Phone ALBIN RENAE Unavailable PROBLEMS Type Condition ICD9-CM Code XQO45-VE Code Onset Dates Condition Status SNOMED Code Problem Chronic pain G89.29 Active 08161282 Problem Dyspepsia R10.13 Active 259293982 Problem Allergic rhinitis J30.9 Active 49345719 Problem Essential hypertension I10 Active 30866847 Problem Type 2 diabetes mellitus with other skin ulcer E11.622 Active 22864926 Problem Skin infection L08.9 Active 023002866 Problem Stress incontinence in female N39.3 Active 73450015 Problem Diabetic polyneuropathy associated with type 2 diabetes mellitus E11.42 Active 53486794 Problem Non-healing skin lesion L98.9 Active 41638597 Problem Ulcer of right lower leg, with unspecified severity L97.919 Active 973711314 Problem Left ventricular enlargement I51.7 Active 859018899 Problem Atrial enlargement, left I51.7 Active 09517971266672 Problem Urinary incontinence R32 Active 738045731 Problem Cough R05 Active 415902989 Problem Anxiety F41.9 Active 50026870 Problem Moderate episode of recurrent major depressive disorder F33.1 Active 936744564 Problem Foot swelling M79.89 Active 094140030 Problem CAD (coronary artery disease) I25.10 Active 48411248 Problem USP 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 Active 242521392 Problem Pulmonary HTN I27.2 Active 37917677 Problem Neuropathy G62.9 Active 961264358 Problem Mixed hyperlipidemia E78.2 Active 835137776 Problem Type 2 diabetes mellitus with other circulatory complications E11.59 Active 43560523 ALLERGIES No Information ENCOUNTERS Encounter Location Date Diagnosis [address] [address] Feb, Moderate episode of recurrent major depressive disorder F33.1 [facility] [address] [address] Feb, Wheezing R06.2 and Cough R05 [address] [address] Jan, Diabetic polyneuropathy associated with type 2 diabetes mellitus E11.[address] [address] Jan, [address] [address] Jan, Wheezing R06.2 and Cough R05 [address] [address] Jan, Cough R05 ; Bronchitis J40 ; Wheezing R06.2 ; Unspecified superficial injury of left lesser toe(s), subsequent encounter S90.935D and Type 2 diabetes mellitus with other circulatory complications E11.[address] [address] Jan, [address] [address] December, [address] [address] December, [address] [address] December, Encounter for removal of sutures Z48.[address] [address] December, Diabetic polyneuropathy associated with type 2 diabetes mellitus E11.[address] [address] December, [address] [address] December, Infection of toe L08.[address] [address] December, [facility] [address] [facility] [id number] [place] [address] December, Diabetic polyneuropathy associated with type 2 diabetes mellitus E11.42 ; 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 ; Urinary incontinence R32 and Type 2 diabetes mellitus with other circulatory complications E11.59 [facility] [address] [address] December, Essential hypertension I10 ; Type 2 diabetes mellitus with other circulatory complications E11.59 and Dizziness R42 [facility] [address] [address] December, Dizziness R42 ; Essential hypertension I10 and Type 2 diabetes mellitus with other circulatory complications E11.[address] [address] Nov, Breast lump N63.[address] [address] Nov, Breast lump N63.[address] [address] Nov, Breast lump N63.[address] [address] Nov, [address] [address] Nov, Mixed hyperlipidemia E78.2 ; Essential hypertension I10 and USP 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 [address] Nov, Essential hypertension I10 ; Breast cancer screening Z12.31 ; USP 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 ; Mixed hyperlipidemia E78.2 ; Dysuria R30.0 and Type 2 diabetes mellitus with other circulatory complications E11.59 [facility] [id number] [address] May, [facility] [facility] [address] [address] Apr, [place] [facility] [address] [address] Apr, Essential hypertension I10 and Diabetic polyneuropathy associated with type 2 diabetes mellitus E11.42 [facility] [address] [address] Mar, [facility] [facility] [id number] [place] [address] Feb, Onychomycosis B35.1 ; Neuropathy G62.9 and Diabetic polyneuropathy associated with type 2 diabetes mellitus E11.42 [facility] [id number] [place] [address] Feb, [facility] [facility] [id number] [place] [address] December, [facility] [facility] [id number] [place] [address] December, Herpes zoster without complication B02.9 ; Onychia of toe of left foot L03.032 ; Ingrowing toenail with infection L60.0 and Diabetic polyneuropathy associated with type 2 diabetes mellitus E11.42 [facility] [facility] [id number] [place] [address] December, [facility] [facility] [id number] [place] [address] Nov, [facility] [facility] [id number] [place] [address] Oct, Diabetic polyneuropathy associated with type 2 diabetes mellitus E11.42 [facility] [id number] [place] [address] Oct, Essential hypertension I10 and Diabetic polyneuropathy associated with type 2 diabetes mellitus E11.42 [facility] [facility] [id number] [place] [address] Sep, Diabetic polyneuropathy associated with type 2 diabetes mellitus E11.42 ; Type 2 diabetes mellitus with other skin ulcer E11.622 ; Chronic pain G89.29 ; Anxiety F41.9 ; Essential hypertension I10 ; Hypoxia R09.02 ; Atrial enlargement, left I51.7 and Left ventricular enlargement I51.7 [facility] [facility] [id number] [place] [address] Sep, [facility] [address] [address] Aug, [facility] [id number] [place] [address] Jul, [facility] [id number] [place] [address] Jul, [facility] [id number] [place] [address] Jul, CAD (coronary artery disease) I25.10 ; Essential hypertension I10 ; Pulmonary HTN I27.2 ; Atrial enlargement, left I51.7 and Left ventricular enlargement I51.7 [facility] [id number] [place] [address] Jun, [facility] [id number] [place] [address] Jun, [facility] [id number] [place] [address] Jun, [facility] [id number] [place] [address] Jun, [facility] [address] [address] Jun, Diabetic polyneuropathy associated with type 2 diabetes mellitus E11.42 ; Type 2 diabetes mellitus with other skin ulcer E11.622 ; Chronic pain G89.29 ; Anxiety F41.9 ; Essential hypertension I10 ; Ulcer of right lower leg, with unspecified severity L97.919 ; Pulmonary HTN I27.2 ; Hypoxia R09.02 ; Atrial enlargement, left I51.7 and Left ventricular enlargement I51.7 [facility] [address] [address] May, [facility] [address] [address] Apr, Diabetic polyneuropathy associated with type 2 diabetes mellitus E11.42 ; Type 2 diabetes mellitus with other skin ulcer E11.622 ; Chronic pain G89.29 ; Anxiety F41.9 ; Cough R05 ; Essential hypertension I10 and Ulcer of right lower leg, with unspecified severity L97.919 [place] [id number] [place] [address] Mar, Diabetic polyneuropathy associated with type 2 diabetes mellitus E11.42 ; Chronic pain G89.29 ; Anxiety F41.9 ; Type 2 diabetes mellitus with other skin ulcer E11.622 ; Cough R05 ; Essential hypertension I10 and Ulcer of right lower leg, with unspecified severity L97.919 [place] [id number] [place] [address] Feb, [place] [id number] [place] [address] Feb, Diabetic polyneuropathy associated with type 2 diabetes mellitus E11.42 ; Chronic pain G89.29 ; Anxiety F41.9 ; Type 2 diabetes mellitus with other skin ulcer E11.622 ; Cough R05 and Essential hypertension I10 [facility] [facility] [id number] [place] [address] Jan, Chronic pain G89.29 ; Anxiety F41.9 and Foot swelling M79.89 [facility] [id number] [place] [address] December, Chronic pain G89.29 ; Anxiety F41.9 and Stress incontinence in female N39.3 [facility] [id number] [place] [address] December, [place] [id number] [place] [address] Nov, [place] [facility] [id number] [place] [address] Nov, [place] [id number] [place] [address] Nov, [place] [id number] [place] [address] Nov, Chronic pain G89.29 ; Anxiety F41.9 ; Non-healing skin lesion L98.9 and Type 2 diabetes mellitus with other skin ulcer E11.622 [facility] [id number] [place] [address] Nov, Diabetic polyneuropathy associated with type 2 diabetes mellitus E11.42 [facility] [id number] [place] [address] Nov, [facility] [id number] [place] [address] Nov, [facility] [id number] [place] [address] Nov, [facility] [id number] [place] [address] Nov, [facility] [id number] [place] [address] Nov, Diabetic polyneuropathy associated with type 2 diabetes mellitus E11.42 [facility] [id number] [place] [address] Oct, Diabetic polyneuropathy associated with type 2 diabetes mellitus E11.42 ; Essential hypertension I10 ; Chronic pain G89.29 ; Anxiety F41.9 and Skin infection L08.9 [facility] [id number] [place] [address] Oct, [facility] [id number] [place] [address] Sep, [facility] [id number] [place] [address] Sep, Diabetic polyneuropathy associated with type 2 diabetes mellitus E11.42 ; Chronic pain G89.29 ; Anxiety F41.9 and Allergic rhinitis J30.9 [facility] [id number] [place] [address] Aug, Diabetic polyneuropathy associated with type 2 diabetes mellitus E11.42 ; Chronic pain G89.29 ; Anxiety F41.9 and Allergic rhinitis J30.9 [place] [id number] [place] [address] Jul, [place] [address] [address] Jul, Diabetic polyneuropathy associated with type 2 diabetes mellitus E11.42 ; Dyspepsia R10.13 ; Essential hypertension I10 ; 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 ; CAD (coronary artery disease) I25.10 ; Chronic pain G89.29 ; Anxiety F41.9 ; Dysuria R30.0 and Pain of left lower leg M79.662 [place] [address] [address] Jul, [place] [address] [address] Jun, Diabetic polyneuropathy associated with type 2 diabetes mellitus E11.42 and 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 [place] [address] [address] Jun, [place] [address] [address] Jun, Neuropathy G62.9 ; Arthritis M19.90 ; Leg cramps R25.2 and Anxiety F41.9 [place] [id number] [place] [address] May, [place] [address] [address] May, [place] [address] [address] May, Diabetic polyneuropathy associated with type 2 diabetes mellitus E11.42 [place] [address] [address] May, [facility] [id number] [address] Apr, [facility] [address] [address] Apr, [facility] [address] [address] Apr, [facility] [id number] [place] [address] 14 Apr, 2015 [facility] [address] [address] Apr, [facility] [address] [address] Apr, [facility] [address] [address] Apr, Diabetes with renal manifestations, type II or unspecified type, uncontrolled 250.42 ; Coronary atherosclerosis of unspecified type of vessel, [place] or graft 414.00 ; Polyneuropathy in diabetes 357.2 ; Hypertension 401.9 ; Anxiety 300.00 ; GERD (gastroesophageal reflux disease) 530.81 and Type 2 diabetes mellitus with pressure callus 250.80 [facility] [address] [address] Mar, [facility] [address] [address] Mar, [facility] [address] [address] Mar, [facility] [address] [address] Mar, [facility] [address] [address] Mar, Diabetes with renal manifestations, type II or unspecified type, uncontrolled 250.42 ; Coronary atherosclerosis of unspecified type of vessel, [place] or graft 414.00 ; Polyneuropathy in diabetes 357.2 ; Hypertension 401.9 and Anxiety 300.00 [facility] [address] [address] 05 Mar, 2015 Routine gynecological examination V72.31 ; Breast cancer screening V76.10 ; Recurrent urinary tract infection 599.0 ; Mastodynia 611.71 and Tobacco abuse 305.1 [facility] [id number] [place] [address] Feb, [facility] [id number] [place] [address] Jan, [facility] [id number] [place] [address] Jan, [facility] [id number] [place] [address] Jan, [facility] [id number] [place] [address] Jan, [facility] [id number] [place] [address] December, [facility] [id number] [place] [address] December, [facility] [id number] [address] Nov, [facility] [id number] [place] [address] 14 Nov, 2014 [facility] [address] [address] Nov, [facility] [id number] [place] [address] Oct, [facility] [id number] [address] Oct, [facility] [id number] [place] [address] 16 Oct, 2014 [facility] [place] [facility] [address] [id number] [place] [address] 16 Oct, 2014 [facility] [place] [facility] [address] [id number] [place] [address] 16 Oct, 2014 [facility] [place] [facility] [address] [id number] [place] [address] 16 Oct, 2014 [facility] [place] [facility] [address] [id number] [place] [address] 16 Oct, 2014 [facility] [place] [facility] [address] [id number] [place] [address] 16 Oct, 2014 [facility] [place] [facility] [address] [id number] [place] [address] 16 Oct, 2014 [facility] [place] [facility] [address] [id number] [place] [address] 16 Oct, 2014 [facility] [place] [facility] [address] [id number] [place] [address] 16 Oct, 2014 [facility] [place] [facility] [address] [id number] [place] [address] Oct, 2014 [facility] [place] [facility] [address] [id number] [place] [address] 04 Oct, 2014 [facility] [place] [facility] [address] [id number] [place] [address] 04 Oct, 2014 [facility] [place] [facility] [address] [id number] [place] [address] Oct, 2014 [facility] [place] [facility] [address] [id number] [place] [address] Oct, 2014 [facility] [place] [facility] [address] [id number] [place] [address] Oct, 2014 [facility] [place] [facility] [address] [id number] [place] [address] Oct, 2014 [facility] [place] [facility] [address] [id number] [place] [address] Sep, 2014 [facility] [place] [facility] [address] [id number] [place] [address] Sep, 2014 [facility] [place] [facility] [address] [facility] [id number] [place] [address] 20 Sep, 2014 [facility] [place] [facility] [address] [facility] [id number] [place] [address] Sep, 2014 [facility] [place] [facility] [address] [facility] [id number] [place] [address] Sep, 2014 [facility] [place] [facility] [address] [facility] [id number] [place] [address] Sep, 2014 [facility] [place] [facility] [id number] [address] Sep, 2014 [facility] [place] [facility] [id number] [place] [address] Sep, 2014 [facility] [place] [facility] [address] [facility] [id number] [place] [address] 17 Sep, 2014 [facility] [place] [facility] [id number] [address] 17 Sep, 2014 [facility] [place] [facility] [id number] [address] Sep, 2014 [facility] [place] [facility] [address] [facility] [id number] [place] [address] Sep, 2014 [facility] [place] [facility] [address] [facility] [id number] [place] [address] 05 Sep, 2014 [facility] [place] [facility] [address] [facility] [id number] [place] [address] Sep, 2014 [facility] [place] [facility] [address] [facility] [id number] [address] 02 Sep, 2014 [facility] [place] [facility] [id number] [address] Aug, [facility] [place] [facility] [address] [id number] [place] [address] Aug, [facility] [place] [facility] [address] [id number] [place] [address] Aug, [facility] [place] [facility] [address] [id number] [place] [address] Aug, [facility] [place] [facility] [address] [id number] [place] [address] Aug, [facility] [place] [facility] [address] [id number] [place] [address] Aug, [facility] [place] [facility] [address] [id number] [place] [address] Aug, [facility] [place] [facility] [address] [id number] [place] [address] Aug, [facility] [place] [facility] [address] [id number] [place] [address] Aug, [facility] [place] [facility] [address] [id number] [place] [address] Aug, [facility] [place] [facility] [address] [id number] [place] [address] Aug, [facility] [place] [facility] [address] [id number] [place] [address] Aug, [facility] [place] [facility] [address] [id number] [address] Aug, [facility] [place] [facility] [address] [id number] [place] [address] Jul, [facility] [place] [facility] [address] [id number] [place] [address] Jul, [facility] [place] [facility] [address] [id number] [place] [address] Jul, [facility] [place] [facility] [address] [id number] [place] [address] Jul, [facility] [place] [facility] [address] [id number] [place] [address] Jul, [facility] [place] [facility] [address] [id number] [place] [address] Jul, [facility] [place] [facility] [address] [id number] [place] [address] Jul, [facility] [place] [facility] [address] [id number] [place] [address] Jul, [facility] [place] [facility] [address] [id number] [place] [address] Jun, [facility] [place] [facility] [address] [id number] [place] [address] Jun, [facility] [place] [facility] [address] [id number] [place] [address] Jun, [facility] [place] [facility] [address] [id number] [place] [address] Jun, [facility] [place] [facility] [address] [id number] [place] [address] Jun, [facility] [place] [facility] [address] [id number] [place] [address] Jun, [facility] [place] [facility] [address] [id number] [place] [address] Jun, [facility] [place] [facility] [address] [id number] [place] [address] Jun, [facility] [place] [facility] [address] [id number] [place] [address] Jun, [facility] [place] [facility] [address] [id number] [place] [address] Jun, [facility] [place] [facility] [address] [id number] [place] [address] Jun, [facility] [place] [facility] [address] [id number] [place] [address] 14 Jun, 2014 [facility] [place] [facility] [address] [id number] [place] [address] 13 Jun, 2014 [facility] [place] [facility] [address] [id number] [place] [address] Jun, [facility] [place] [facility] [address] [id number] [place] [address] Jun, [facility] [place] [facility] [address] [id number] [place] [address] Jun, [facility] [place] [facility] [address] [id number] [place] [address] May, [facility] [place] [facility] [address] [id number] [place] [address] May, [facility] [place] [facility] [address] [id number] [place] [address] May, [facility] [place] [facility] [address] [id number] [place] [address] May, [facility] [place] [facility] [address] [id number] [place] [address] May, [facility] [place] [facility] [address] [id number], [place] [address] May, [facility] [place] [facility] [address] [id number] [address] May, [facility] [place] [facility] [address] [id number] [address] May, [facility] [place] [facility] [address] [id number], [place] [address] May, [facility] [place] [facility] [address] [id number], [place] [address] Apr, [facility] [place] [facility] [address] [id number], [place] [address] Apr, [facility] [place] [facility] [address] [id number] [place] [address] Apr, [facility] [place] [facility] [address] [id number] [place] [address] Apr, [facility] [place] [facility] [address] [id number] [place] [address] Mar, [facility] [place] [facility] [address] [id number] [place] [address] Mar, [facility] [place] [facility] [address] [id number] [place] [address] Mar, [facility] [place] [facility] [address] [id number] [place] [address] Mar, [facility] [place] [facility] [address] [id number] [place] [address] Feb, [facility] [place] [facility] [address] [id number] [place] [address] Feb, [facility] [place] [facility] [address] [id number] [place] [address] Jan, [facility] [place] [facility] [address] [id number] [place] [address] Jan, [facility] [place] [facility] [address] [id number] [place] [address] Jan, [facility] [place] [facility] [address] [id number] [place] [address] Jan, [facility] [place] [facility] [address] [id number] [place] [address] Jan, [facility] [place] [facility] [address] [id number] [place] [address] Jan, [facility] [place] [facility] [address] [id number] [place] [address] Jan, [facility] [place] [facility] [address] [id number] [place] [address] Jan, [facility] [place] [facility] [address] [id number] [place] [address] Jan, [facility] [place] [facility] [address] [id number] [place] [address] Jan, [facility] [place] [facility] [address] [id number] [place] [address] Jan, [facility] [place] [facility] [address] [id number] [place] [address] Jan, [facility] [place] [facility] [address] [id number] [place] [address] Jan, [facility] [place] [facility] [address] [id number] [place] [address] December, [facility] [place] [facility] [address] [id number] [place] [address] December, [facility] [place] [facility] [address] [id number] [place] [address] December, [facility] [place] [facility] [address] [id number] [place] [address] December, [facility] [place] [facility] [address] [id number] [place] [address] December, [facility] [place] [facility] [address] [id number] [place] [address] Nov, [facility] [place] [facility] [address] [id number] [place] [address] Nov, [facility] [place] [facility] [address] [id number] [place] [address] Nov, [facility] [place] [facility] [address] [id number] [place] [address] Nov, [facility] [place] [facility] [address] [id number] [place] [address] Nov, [facility] [place] [facility] [address] [id number] [place] [address] Nov, [facility] [place] [facility] [address] [id number] [place] [address] Nov, [facility] [place] [facility] [address] [id number] [place] [address] Nov, [facility] [place] [facility] [address] [id number] [place] [address] Nov, [facility] [place] [facility] [address] [id number] [place] [address] Nov, [facility] [place] [facility] [address] [id number] [place] [address] Jun, [facility] [place] [facility] [address] [id number] [place] [address] Jun, [facility] [place] [facility] [address] [id number] [address] May, [facility] [place] [facility] [address] [id number] [place] [address] May, [facility] [place] [facility] [address] [id number], [place] [address] May, [facility] [place] [facility] [address] [id number], [place] [address] May, [facility] [place] [facility] [address] [id number], [place] [address] May, [facility] [place] [facility] [address] [id number] [place] [address] May, [facility] [place] [facility] [address] [id number], [place] [address] May, [facility] [place] [facility] [address] [id number] [place] [address] May, [facility] [place] [facility] [address] [id number] [place] [address] May, [facility] [address] [id number] [place] [address] 25 Apr, 2011 [facility] [address] [id number] [place] [address] 25 Apr, 2011 [facility] [address] [id number] [place] [address] 25 Apr, 2011 [facility] [address] [id number] [place] [address] 21 Apr, 2011 [facility] [address] [id number] [place] [address] 20 Apr, 2011 [facility] [address] [id number] [place] [address] 19 Apr, 2011 [facility] [address] [id number] [place] [address] 05 Apr, 2011 [facility] [address] [id number] [place] [address] 04 Apr, 2012 [facility] [address] [id number] [place] [address] 28 Mar, 2012 [facility] [address] [id number] [place] [address] 27 Mar, 2012 [facility] [address] [id number] [place] [address] 16 Mar, 2012 [facility] [address] [id number] [place] [address] 14 Mar, 2012 [facility] [address] [id number] [place] [address] Mar, [address] [id number] Mar, [facility] [address] [id number] [place] [address] Mar, [facility] [address] [id number] [place] [address] 31 Feb, 2012 [facility] [address] [id number] [place] [address] Feb, [facility] [place] [facility] [address] [id number] [place] [address] 16 Feb, 2012 [facility] [address] [id number] [place] [address] Feb, [facility] [address] [id number] [place] [address] Feb, [facility] [address] [id number] [place] [address] Feb, [facility] [address] [id number] [place] [address] Jan, [facility] [address] [id number] [place] [address] Jan, [facility] [address] [id number] [place] [address] Jan, [facility] [place] [facility] [address] [id number] [place] [address] Jan, [facility] [address] [id number] [place] [address] Jan, [facility] [place] [facility] [address] [id number] [place] [address] Jan, [facility] [place] [facility] [address] [id number] [place] [address] Jan, [facility] [place] [facility] [address] [id number] [place] [address] December, [facility] [place] [facility] [address] [id number] [place] [address] December, [facility] [place] [facility] [address] [id number] [place] [address] December, [facility] [place] [facility] [address] [id number] [place] [address] 30 Nov, 2011 [facility] [place] [facility] [address] [id number] [place] [address] Nov, [facility] [place] [facility] [address] [id number] [place] [address] Nov, [facility] [place] [facility] [address] [id number] [place] [address] Nov, [facility] [place] [facility] [address] [id number] [place] [address] Nov, [facility] [place] [facility] [address] [id number] [place] [address] Nov, [facility] [place] [facility] [address] [id number] [place] [address] Nov, [facility] [place] [facility] [address] [id number] [place] [address] Nov, [facility] [place] [facility] [address] [id number] [place] [address] Oct, [facility] [place] [facility] [address] [id number] [place] [address] Oct, [facility] [place] [facility] [address] [id number] [place] [address] Oct, [facility] [place] [facility] [address] [id number] [place] [address] Oct, [facility] [place] [facility] [address] [id number] [place] [address] Sep, [facility] [place] [facility] [address] [id number] [place] [address] Sep, [facility] [place] [facility] [address] [id number] [place] [address] Sep, [facility] [place] [facility] [address] [id number] [place] [address] Aug, [facility] [place] [facility] [address] [id number] [place] [address] Aug, [facility] [place] [facility] [address] [id number] [place] [address] Aug, [facility] [place] [facility] [address] [id number] [place] [address] Aug, [facility] [place] [facility] [address] [id number] [place] [address] 15 Jul, 2011 [facility] [place] [facility] [address] [id number] [place] [address] 15 Jul, 2011 [facility] [place] [facility] [address] [id number] [place] [address] 15 Jul, 2011 [facility] [place] [facility] [address] [id number] [place] [address] 30 Jun, 2011 [facility] [place] [facility] [address] [id number] [place] [address] 22 Jun, 2011 [facility] [place] [facility] [address] [id number] [place] [address] 15 Jun, 2011 [facility] [place] [facility] [address] [id number] [place] [address] 14 Jun, 2011 [facility] [place] [facility] [address] [id number] [place] [address] 14 Jun, 2011 [facility] [place] [facility] [address] [id number], [place] [address] 14 Jun, 2011 [facility] [place] [facility] [address] [id number] [place] [address] 31 May, 2011 [facility] [place] [facility] [address] [id number] [place] [address] 31 May, 2011 [facility] [place] [facility] [address] [id number], [place] [address] 28 May, 2011 [facility] [place] [facility] [address] [facility] [id number] [place] [address] Apr, [facility] [address] [facility] [id number] [place] [address] Mar, [facility] [address] [facility] [id number] [place] [address] Aug, IMMUNIZATIONS No Known Immunizations SOCIAL HISTORY [...] Coronary atherosclerosis of unspecified type of vessel, [place] or graft Surgical History partial hysterectomy 1991 Surgical History heart cath 2004, 2011 Hospitalization History minor [place] 2004 Hospitalization History [facility] [place] for pancreatitis 11/2010 [facility]ization History [facility] for a [facility] 12/2011 Hospitalization 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 Discharged 06/27/17 06/25/17
--- OUTSIDE RECORDS SUMMARY | 2019-03-03 10:50 | XMS REPORT ---
Author Author ALBIN RENAE Organization [facility] Address [address] [place] [address] Care Team Providers Care Social Media Strategist Name Role Phone ALBIN RENAE Unavailable PROBLEMS Type Condition ICD9-CM Code HJL90-LS Code Onset Dates Condition Status SNOMED Code Problem Chronic pain G89.29 Active 89921962 Problem Dyspepsia R10.13 Active 173280598 Problem Allergic rhinitis J30.9 Active 91820433 Problem Essential hypertension I10 Active 35038430 Problem Type 2 diabetes mellitus with other skin ulcer E11.622 Active 54915739 Problem Skin infection L08.9 Active 214084043 Problem Stress incontinence in female N39.3 Active 28711251 Problem Diabetic polyneuropathy associated with type 2 diabetes mellitus E11.42 Active 69171379 Problem Non-healing skin lesion L98.9 Active 24372661 Problem Ulcer of right lower leg, with unspecified severity L97.919 Active 803753905 Problem Left ventricular enlargement I51.7 Active 564187558 Problem Atrial enlargement, left I51.7 Active 66858348386404 Problem Urinary incontinence R32 Active 108755682 Problem Cough R05 Active 319592537 Problem Anxiety F41.9 Active 24258452 Problem Moderate episode of recurrent major depressive disorder F33.1 Active 576328887 Problem Foot swelling M79.89 Active 434235136 Problem CAD (coronary artery disease) I25.10 Active 79917617 Problem penitentiary 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 Active 197593087 Problem Pulmonary HTN I27.2 Active 91939624 Problem Neuropathy G62.9 Active 035013642 Problem Mixed hyperlipidemia E78.2 Active 340503486 Problem Type 2 diabetes mellitus with other circulatory complications E11.59 Active 14199079 ALLERGIES No Information ENCOUNTERS Encounter Location Date Diagnosis [address] [address] Feb, Moderate episode of recurrent major depressive disorder F33.1 [facility] [address] [address] Feb, Wheezing R06.2 and Cough R05 [address] [address] Jan, Diabetic polyneuropathy associated with type 2 diabetes mellitus E11.[address] [address] Jan, [address] [address] Jan, Wheezing R06.2 and Cough R05 [address] [address] Jan, Cough R05 ; Bronchitis J40 ; Wheezing R06.2 ; Unspecified superficial injury of left lesser toe(s), subsequent encounter S90.935D and Type 2 diabetes mellitus with other circulatory complications E11.[address] [address] Jan, [address] [address] December, [address] [address] December, [address] [address] December, Encounter for removal of sutures Z48.[address] [address] December, Diabetic polyneuropathy associated with type 2 diabetes mellitus E11.[address] [address] December, [address] [address] December, Infection of toe L08.[address] [address] December, [facility] [address] [facility] [id number] [place] [address] December, Diabetic polyneuropathy associated with type 2 diabetes mellitus E11.42 ; 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 ; Urinary incontinence R32 and Type 2 diabetes mellitus with other circulatory complications E11.59 [facility] [address], [place] [address] December, Essential hypertension I10 ; Type 2 diabetes mellitus with other circulatory complications E11.59 and Dizziness R42 [facility] [address], [place] [address] December, Dizziness R42 ; Essential hypertension I10 and Type 2 diabetes mellitus with other circulatory complications E11.[address] [address] Nov, Breast lump N63.[address] [address] Nov, Breast lump N63.[address] [address] Nov, Breast lump N63.[address] [address] Nov, [address] [address] Nov, Mixed hyperlipidemia E78.2 ; Essential hypertension I10 and penitentiary 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 [address] Nov, Essential hypertension I10 ; Breast cancer screening Z12.31 ; penitentiary 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 ; Mixed hyperlipidemia E78.2 ; Dysuria R30.0 and Type 2 diabetes mellitus with other circulatory complications E11.59 [facility] [id number] [address] May, [facility] [address], [place] [address] Apr, [facility] [address] [address] Apr, Essential hypertension I10 and Diabetic polyneuropathy associated with type 2 diabetes mellitus E11.42 [facility] [address], [place] [address] Mar, [facility] [address] [place] [id number] [place] [address] Feb, Onychomycosis B35.1 ; Neuropathy G62.9 and Diabetic polyneuropathy associated with type 2 diabetes mellitus E11.42 [facility] [id number] [place] [address] Feb, [facility] [id number] [place] [address] December, [facility] [id number] [place] [address] December, Herpes zoster without complication B02.9 ; Onychia of toe of left foot L03.032 ; Ingrowing toenail with infection L60.0 and Diabetic polyneuropathy associated with type 2 diabetes mellitus E11.42 [facility] [id number] [place] [address] December, [facility] [id number] [place] [address] Nov, [facility] [id number] [place] [address] Oct, Diabetic polyneuropathy associated with type 2 diabetes mellitus E11.42 [facility] [id number] [place] [address] Oct, Essential hypertension I10 and Diabetic polyneuropathy associated with type 2 diabetes mellitus E11.42 [facility] [address] [place] [address] Sep, Diabetic polyneuropathy associated with type 2 diabetes mellitus E11.42 ; Type 2 diabetes mellitus with other skin ulcer E11.622 ; Chronic pain G89.29 ; Anxiety F41.9 ; Essential hypertension I10 ; Hypoxia R09.02 ; Atrial enlargement, left I51.7 and Left ventricular enlargement I51.7 [facility] [id number] [place] [address] Sep, [facility] [address], [place] [address] Aug, [facility] [address] [place] [address] Jul, [facility] [id number] [place] [address] Jul, [facility] [id number] [place] [address] Jul, CAD (coronary artery disease) I25.10 ; Essential hypertension I10 ; Pulmonary HTN I27.2 ; Atrial enlargement, left I51.7 and Left ventricular enlargement I51.7 [facility] [id number] [place] [address] Jun, [facility] [id number] [place] [address] Jun, [facility] [id number] [place] [address] Jun, [facility] [id number] [place] [address] Jun, [facility] [address], [place] [address] Jun, Diabetic polyneuropathy associated with type 2 diabetes mellitus E11.42 ; Type 2 diabetes mellitus with other skin ulcer E11.622 ; Chronic pain G89.29 ; Anxiety F41.9 ; Essential hypertension I10 ; Ulcer of right lower leg, with unspecified severity L97.919 ; Pulmonary HTN I27.2 ; Hypoxia R09.02 ; Atrial enlargement, left I51.7 and Left ventricular enlargement I51.7 [facility] [address], [place] [address] May, [facility] [address], [place] [address] Apr, Diabetic polyneuropathy associated with type 2 diabetes mellitus E11.42 ; Type 2 diabetes mellitus with other skin ulcer E11.622 ; Chronic pain G89.29 ; Anxiety F41.9 ; Cough R05 ; Essential hypertension I10 and Ulcer of right lower leg, with unspecified severity L97.919 [facility] [facility] [id number] [place] [address] Mar, Diabetic polyneuropathy associated with type 2 diabetes mellitus E11.42 ; Chronic pain G89.29 ; Anxiety F41.9 ; Type 2 diabetes mellitus with other skin ulcer E11.622 ; Cough R05 ; Essential hypertension I10 and Ulcer of right lower leg, with unspecified severity L97.919 [facility] [id number] [place] [address] Feb, [facility] [id number] [place] [address] Feb, Diabetic polyneuropathy associated with type 2 diabetes mellitus E11.42 ; Chronic pain G89.29 ; Anxiety F41.9 ; Type 2 diabetes mellitus with other skin ulcer E11.622 ; Cough R05 and Essential hypertension I10 [facility] [id number] [place] [address] Jan, Chronic pain G89.29 ; Anxiety F41.9 and Foot swelling M79.89 [facility] [id number] [place] [address] December, Chronic pain G89.29 ; Anxiety F41.9 and Stress incontinence in female N39.3 [facility] [id number] [place] [address] December, [facility] [id number] [place] [address] Nov, [facility] [id number] [place] [address] Nov, [facility] [id number] [place] [address] Nov, [place] [address] [place] [address] Nov, Chronic pain G89.29 ; Anxiety F41.9 ; Non-healing skin lesion L98.9 and Type 2 diabetes mellitus with other skin ulcer E11.622 [facility] [id number] [place] [address] Nov, Diabetic polyneuropathy associated with type 2 diabetes mellitus E11.42 [facility] [id number] [place] [address] Nov, [facility] [id number] [place] [address] Nov, [facility] [id number] [place] [address] Nov, [facility] [id number] [place] [address] Nov, [facility] [id number] [place] [address] Nov, Diabetic polyneuropathy associated with type 2 diabetes mellitus E11.42 [facility] [id number] [place] [address] Oct, Diabetic polyneuropathy associated with type 2 diabetes mellitus E11.42 ; Essential hypertension I10 ; Chronic pain G89.29 ; Anxiety F41.9 and Skin infection L08.9 [facility] [id number] [place] [address] Oct, [facility] [id number] [place] [address] Sep, [facility] [id number] [place] [address] Sep, Diabetic polyneuropathy associated with type 2 diabetes mellitus E11.42 ; Chronic pain G89.29 ; Anxiety F41.9 and Allergic rhinitis J30.9 [facility] [id number] [place] [address] Aug, Diabetic polyneuropathy associated with type 2 diabetes mellitus E11.42 ; Chronic pain G89.29 ; Anxiety F41.9 and Allergic rhinitis J30.9 [facility] [id number] [place] [address] Jul, [facility] [address] [address] Jul, Diabetic polyneuropathy associated with type 2 diabetes mellitus E11.42 ; Dyspepsia R10.13 ; Essential hypertension I10 ; 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 ; CAD (coronary artery disease) I25.10 ; Chronic pain G89.29 ; Anxiety F41.9 ; Dysuria R30.0 and Pain of left lower leg M79.662 [facility] [address] [address] Jul, [facility] [address] [address] Jun, Diabetic polyneuropathy associated with type 2 diabetes mellitus E11.42 and 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 [facility] [address] [address] Jun, [facility] [address] [address] Jun, Neuropathy G62.9 ; Arthritis M19.90 ; Leg cramps R25.2 and Anxiety F41.9 [facility] [id number] [place] [address] May, [facility] [address] [address] May, [facility] [address] [address] May, Diabetic polyneuropathy associated with type 2 diabetes mellitus E11.42 [facility] [address] [address] May, [facility] [id number], [place] [address] Apr, [facility] [address], [place] [address] Apr, [facility] [address], [place] [address] Apr, [facility] [address] [place] [address] 14 Apr, 2015 [facility] [address], [place] [address] Apr, [facility] [address], [place] [address] Apr, [facility] [address], [place] [address] Apr, Diabetes with renal manifestations, type II or unspecified type, uncontrolled 250.42 ; Coronary atherosclerosis of unspecified type of vessel, gakona or graft 414.00 ; Polyneuropathy in diabetes 357.2 ; Hypertension 401.9 ; Anxiety 300.00 ; GERD (gastroesophageal reflux disease) 530.81 and Type 2 diabetes mellitus with pressure callus 250.80 [facility] [address], [place] [address] Mar, [facility] [address], [place] [address] Mar, [facility] [address], [place] [address] Mar, [facility] [address], [place] [address] Mar, [facility] [address], [place] [address] Mar, Diabetes with renal manifestations, type II or unspecified type, uncontrolled 250.42 ; Coronary atherosclerosis of unspecified type of vessel, gakona or graft 414.00 ; Polyneuropathy in diabetes 357.2 ; Hypertension 401.9 and Anxiety 300.00 [facility] [address], [place] [address] 05 Mar, 2015 Routine gynecological examination V72.31 ; Breast cancer screening V76.10 ; Recurrent urinary tract infection 599.0 ; Mastodynia 611.71 and Tobacco abuse 305.1 [facility] [id number] [place] [address] Feb, [facility] [id number] [place] [address] Jan, [facility] [id number] [place] [address] Jan, [facility] [id number] [place] [address] Jan, [facility] [id number] [place] [address] Jan, [facility] [id number] [place] [address] December, [facility] [id number] [place] [address] December, [facility] [id number] [address] Nov, [facility] [id number] [place] [address] 14 Nov, 2014 [facility] [address], [place] [address] Nov, [facility] [id number] [place] [address] Oct, [facility] [id number] [address] Oct, [facility] [id number] [place] [address] 16 Oct, 2014 [facility] [place] [facility] [address] [id number] [place] [address] 16 Oct, 2014 [facility] [place] [facility] [address] [id number] [place] [address] 16 Oct, 2014 [facility] [place] [facility] [address] [id number] [place] [address] 16 Oct, 2014 [facility] [place] [facility] [address] [id number] [place] [address] 16 Oct, 2014 [facility] [place] [facility] [address] [id number] [place] [address] 16 Oct, 2014 [facility] [place] [facility] [address] [id number] [place] [address] 16 Oct, 2014 [facility] [place] [facility] [address] [id number] [place] [address] 16 Oct, 2014 [facility] [place] [facility] [address] [id number] [place] [address] 16 Oct, 2014 [facility] [place] [facility] [address] [id number] [place] [address] Oct, 2014 [facility] [place] [facility] [address] [id number] [place] [address] 04 Oct, 2014 [facility] [place] [facility] [address] [id number] [place] [address] 04 Oct, 2014 [facility] [place] [facility] [address] [id number] [place] [address] Oct, 2014 [facility] [place] [facility] [address] [id number] [place] [address] Oct, 2014 [facility] [place] [facility] [address] [id number] [place] [address] Oct, 2014 [facility] [place] [facility] [address] [id number] [place] [address] Oct, 2014 [facility] [place] [facility] [address] [id number] [place] [address] Sep, 2014 [facility] [place] [facility] [address] [id number] [place] [address] Sep, 2014 [facility] [place] [facility] [address] [facility] [id number] [place] [address] 20 Sep, 2014 [facility] [place] [facility] [address] [facility] [id number] [place] [address] Sep, 2014 [facility] [place] [facility] [address] [facility] [id number] [place] [address] Sep, 2014 [facility] [place] [facility] [address] [facility] [id number] [place] [address] Sep, 2014 [facility] [place] [facility] [id number] [place] [address] Sep, 2014 [facility] [place] [facility] [id number] [place] [address] Sep, 2014 [facility] [place] [facility] [address] [facility] [id number] [place] [address] 17 Sep, 2014 [facility] [place] [facility] [id number] [place] [address] 17 Sep, 2014 [facility] [place] [facility] [id number] [place] [address] Sep, 2014 [facility] [place] [facility] [address] [facility] [id number] [place] [address] Sep, 2014 [facility] [place] [facility] [address] [facility] [id number] [place] [address] 05 Sep, 2014 [facility] [place] [facility] [address] [facility] [id number] [place] [address] Sep, 2014 [facility] [place] [facility] [address] [facility] [id number] [address] 02 Sep, 2014 [facility] [place] [facility] [id number] [address] Aug, [facility] [place] [facility] [address] [id number] [place] [address] Aug, [facility] [place] [facility] [address] [id number] [place] [address] Aug, [facility] [place] [facility] [address] [id number] [place] [address] Aug, [facility] [place] [facility] [address] [id number] [place] [address] Aug, [facility] [place] [facility] [address] [id number] [place] [address] Aug, [facility] [place] [facility] [address] [id number] [place] [address] Aug, [facility] [place] [facility] [address] [id number] [place] [address] Aug, [facility] [place] [facility] [address] [id number] [place] [address] Aug, [facility] [place] [facility] [address] [id number] [place] [address] Aug, [facility] [place] [facility] [address] [id number] [place] [address] Aug, [facility] [place] [facility] [address] [id number] [place] [address] Aug, [facility] [place] [facility] [address] [id number] [address] Aug, [facility] [place] [facility] [address] [id number] [place] [address] Jul, [facility] [place] [facility] [address] [id number] [place] [address] Jul, [facility] [place] [facility] [address] [id number] [place] [address] Jul, [facility] [place] [facility] [address] [id number] [place] [address] Jul, [facility] [place] [facility] [address] [id number] [place] [address] Jul, [facility] [place] [facility] [address] [id number] [place] [address] Jul, [facility] [place] [facility] [address] [id number] [place] [address] Jul, [facility] [place] [facility] [address] [id number] [place] [address] Jul, [facility] [place] [facility] [address] [id number] [place] [address] Jun, [facility] [place] [facility] [address] [id number] [place] [address] Jun, [facility] [place] [facility] [address] [id number] [place] [address] Jun, [facility] [place] [facility] [address] [id number] [place] [address] Jun, [facility] [place] [facility] [address] [id number] [place] [address] Jun, [facility] [place] [facility] [address] [id number] [place] [address] Jun, [facility] [place] [facility] [address] [id number] [place] [address] Jun, [facility] [place] [facility] [address] [id number] [place] [address] Jun, [facility] [place] [facility] [address] [id number] [place] [address] Jun, [facility] [place] [facility] [address] [id number] [place] [address] Jun, [facility] [place] [facility] [address] [id number] [place] [address] Jun, [facility] [place] [facility] [address] [id number] [place] [address] 14 Jun, 2014 [facility] [place] [facility] [address] [id number] [place] [address] 13 Jun, 2014 [facility] [place] [facility] [address] [id number] [place] [address] Jun, [facility] [place] [facility] [address] [id number] [place] [address] Jun, [facility] [place] [facility] [address] [id number] [place] [address] Jun, [facility] [place] [facility] [address] [id number] [place] [address] May, [facility] [place] [facility] [address] [id number] [place] [address] May, [facility] [place] [facility] [address] [id number] [place] [address] May, [facility] [place] [facility] [address] [id number] [place] [address] May, [facility] [place] [facility] [address] [id number] [place] [address] May, [facility] [place] [facility] [address] [id number], [place] [address] May, [facility] [place] [facility] [address] [id number], [place] [address] May, [facility] [place] [facility] [address] [id number], [place] [address] May, [facility] [place] [facility] [address] [id number], [place] [address] May, [facility] [place] [facility] [address] [id number], [place] [address] Apr, [facility] [place] [facility] [address] [id number], [place] [address] Apr, [facility] [place] [facility] [address] [id number] [place] [address] Apr, [facility] [place] [facility] [address] [id number] [place] [address] Apr, [facility] [place] [facility] [address] [id number] [place] [address] Mar, [facility] [place] [facility] [address] [id number] [place] [address] Mar, [facility] [place] [facility] [address] [id number] [place] [address] Mar, [facility] [place] [facility] [address] [id number] [place] [address] Mar, [facility] [place] [facility] [address] [address] [id number] [place] [address] Feb, [facility] [place] [facility] [address] [id number] [place] [address] Feb, [facility] [place] [facility] [address] [id number] [place] [address] Jan, [facility] [place] [facility] [address] [id number] [place] [address] Jan, [facility] [place] [facility] [address] [id number] [place] [address] Jan, [facility] [place] [facility] [address] [id number] [place] [address] Jan, [facility] [place] [facility] [address] [id number] [place] [address] Jan, [facility] [place] [facility] [address] [id number] [place] [address] Jan, [facility] [place] [facility] [address] [id number] [place] [address] Jan, [facility] [place] [facility] [address] [id number] [place] [address] Jan, [facility] [place] [facility] [address] [id number] [place] [address] Jan, [facility] [place] [facility] [address] [id number] [place] [address] Jan, [facility] [place] [facility] [address] [id number] [place] [address] Jan, [facility] [place] [facility] [address] [id number] [place] [address] Jan, [facility] [place] [facility] [address] [id number] [place] [address] Jan, [facility] [place] [facility] [address] [id number] [place] [address] December, [facility] [place] [facility] [address] [id number] [place] [address] December, [facility] [place] [facility] [address] [id number] [place] [address] December, [facility] [place] [facility] [address] [id number] [place] [address] December, [facility] [place] [facility] [address] [id number] [place] [address] December, [facility] [place] [facility] [address] [id number] [place] [address] Nov, [facility] [place] [facility] [address] [id number] [place] [address] Nov, [facility] [place] [facility] [address] [id number] [place] [address] Nov, [facility] [place] [facility] [address] [id number] [place] [address] Nov, [facility] [place] [facility] [address] [id number] [place] [address] Nov, [facility] [place] [facility] [address] [id number] [place] [address] Nov, [facility] [place] [facility] [address] [id number] [place] [address] Nov, [facility] [place] [facility] [address] [id number] [place] [address] Nov, [facility] [place] [facility] [address] [id number] [place] [address] Nov, [facility] [place] [facility] [address] [id number] [place] [address] Nov, [facility] [place] [facility] [address] [id number] [place] [address] Jun, [facility] [place] [facility] [address] [id number] [place] [address] Jun, [facility] [place] [facility] [address] [id number], [place] [address] May, [facility] [place] [facility] [address] [id number] [place] [address] May, [facility] [place] [facility] [address] [id number], [place] [address] May, [facility] [place] [facility] [address] [id number], [place] [address] May, [facility] [place] [facility] [address] [id number], [place] [address] May, [facility] [place] [facility] [address] [id number] [place] [address] May, [facility] [place] [facility] [address] [id number], [place] [address] May, [facility] [place] [facility] [address] [id number] [place] [address] May, [facility] [place] [facility] [address] [id number] [place] [address] May, [facility] [address] [id number] [place] [address] 25 Apr, 2011 [facility] [address] [id number] [place] [address] 25 Apr, 2011 [facility] [address] [id number] [place] [address] 25 Apr, 2011 [facility] [address] [id number] [place] [address] 21 Apr, 2011 [facility] [address] [id number] [place] [address] 20 Apr, 2011 [facility] [address] [id number] [place] [address] 19 Apr, 2011 [facility] [address] [id number] [place] [address] 05 Apr, 2011 [facility] [address] [id number] [place] [address] 04 Apr, 2012 [facility] [address] [id number] [place] [address] 28 Mar, 2012 [facility] [address] [id number] [place] [address] 27 Mar, 2012 [facility] [address] [id number] [place] [address] 16 Mar, 2012 [facility] [address] [id number] [place] [address] 14 Mar, 2012 [facility] [address] [id number] [place] [address] Mar, [address] [id number] Mar, [facility] [address] [id number] [place] [address] Mar, [facility] [address] [id number] [place] [address] 31 Feb, 2012 [facility] [address] [id number] [place] [address] Feb, [facility] [place] [facility] [address] [id number] [place] [address] 16 Feb, 2012 [facility] [address] [id number] [place] [address] Feb, [facility] [address] [id number] [place] [address] Feb, [facility] [address] [id number] [place] [address] Feb, [facility] [address] [id number] [place] [address] Jan, [facility] [address] [id number] [place] [address] Jan, [facility] [address] [id number] [place] [address] Jan, [facility] [place] [facility] [address] [id number] [place] [address] Jan, [facility] [address] [id number] [place] [address] Jan, [facility] [place] [facility] [address] [id number] [place] [address] Jan, [facility] [place] [facility] [address] [id number] [place] [address] Jan, [facility] [place] [facility] [address] [id number] [place] [address] December, [facility] [place] [facility] [address] [id number] [place] [address] December, [facility] [place] [facility] [address] [id number] [place] [address] December, [facility] [place] [facility] [address] [id number] [place] [address] 30 Nov, 2011 [facility] [place] [facility] [address] [id number] [place] [address] Nov, [facility] [place] [facility] [address] [id number] [place] [address] Nov, [facility] [place] [facility] [address] [id number] [place] [address] Nov, [facility] [place] [facility] [address] [id number] [place] [address] Nov, [facility] [place] [facility] [address] [id number] [place] [address] Nov, [facility] [place] [facility] [address] [id number] [place] [address] Nov, [facility] [place] [facility] [address] [id number] [place] [address] Nov, [facility] [place] [facility] [address] [id number] [place] [address] Oct, [facility] [place] [facility] [address] [id number] [place] [address] Oct, [facility] [place] [facility] [address] [id number] [place] [address] Oct, [facility] [place] [facility] [address] [id number] [place] [address] Oct, [facility] [place] [facility] [address] [id number] [place] [address] Sep, [facility] [place] [facility] [address] [id number] [place] [address] Sep, [facility] [place] [facility] [address] [id number] [place] [address] Sep, [facility] [place] [facility] [address] [id number] [place] [address] Aug, [facility] [place] [facility] [address] [id number] [place] [address] Aug, [facility] [place] [facility] [address] [id number] [place] [address] Aug, [facility] [place] [facility] [address] [id number] [place] [address] Aug, [facility] [place] [facility] [address] [id number] [place] [address] 15 Jul, 2011 [facility] [place] [facility] [address] [id number] [place] [address] 15 Jul, 2011 [facility] [place] [facility] [address] [id number] [place] [address] 15 Jul, 2011 [facility] [place] [facility] [address] [id number] [place] [address] 30 Jun, 2011 [facility] [place] [facility] [address] [id number] [place] [address] 22 Jun, 2011 [facility] [place] [facility] [address] [id number] [place] [address] 15 Jun, 2011 [facility] [place] [facility] [address] [id number] [place] [address] 14 Jun, 2011 [facility] [place] [facility] [address] [id number] [place] [address] 14 Jun, 2011 [facility] [place] [facility] [address] [id number], [place] [address] 14 Jun, 2011 [facility] [place] [facility] [address] [id number] [place] [address] 31 May, 2011 [facility] [place] [facility] [address] [id number] [place] [address] 31 May, 2011 [facility] [place] [facility] [address] [id number], [place] [address] 28 May, 2011 [facility] [place] [facility] [address] [facility] [id number] [place] [address] Apr, [facility] [address] [facility] [id number] [place] [address] Mar, [facility] [address] [facility] [id number] [place] [address] Aug, IMMUNIZATIONS No Known Immunizations SOCIAL HISTORY [...] Coronary atherosclerosis of unspecified type of vessel, [place] or graft Surgical History partial hysterectomy 1991 Surgical History heart cath 2004, 2011 Hospitalization History minor [place] 2004 Hospitalization History [facility] for pancreatitis 11/2010 [facility]ization History [facility] for [facility] 12/2011 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 Discharged 06/27/17 06/25/17
--- OUTSIDE RECORDS SUMMARY | 2019-03-03 10:50 | XMS REPORT ---
Author Author ALBIN RENAE Organization [facility] Address [address] [place] [address] Care Team Providers Care Hotel Manager Name Role Phone ALBIN RENAE Unavailable PROBLEMS Type Condition ICD9-CM Code NGF97-QO Code Onset Dates Condition Status SNOMED Code Problem Chronic pain G89.29 Active 31262419 Problem Dyspepsia R10.13 Active 477407837 Problem Allergic rhinitis J30.9 Active 62028451 Problem Essential hypertension I10 Active 51662563 Problem Type 2 diabetes mellitus with other skin ulcer E11.622 Active 49900166 Problem Skin infection L08.9 Active 400472016 Problem Stress incontinence in female N39.3 Active 57752633 Problem Diabetic polyneuropathy associated with type 2 diabetes mellitus E11.42 Active 52613609 Problem Non-healing skin lesion L98.9 Active 32546380 Problem Ulcer of right lower leg, with unspecified severity L97.919 Active 415260283 Problem Left ventricular enlargement I51.7 Active 845342010 Problem Atrial enlargement, left I51.7 Active 57514311854302 Problem Urinary incontinence R32 Active 014246554 Problem Cough R05 Active 154560350 Problem Anxiety F41.9 Active 26074560 Problem Moderate episode of recurrent major depressive disorder F33.1 Active 585963493 Problem Foot swelling M79.89 Active 764775402 Problem CAD (coronary artery disease) I25.10 Active 15104659 Problem retirement 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 Active 017585022 Problem Pulmonary HTN I27.2 Active 81593231 Problem Neuropathy G62.9 Active 898171503 Problem Mixed hyperlipidemia E78.2 Active 462960871 Problem Type 2 diabetes mellitus with other circulatory complications E11.59 Active 13030423 ALLERGIES No Information ENCOUNTERS Encounter Location Date Diagnosis [address] [address] Feb, Moderate episode of recurrent major depressive disorder F33.1 [facility] [address] [address] Feb, Wheezing R06.2 and Cough R05 [address] [address] Jan, Diabetic polyneuropathy associated with type 2 diabetes mellitus E11.[address] [address] Jan, [address] [address] Jan, Wheezing R06.2 and Cough R05 [address] [address] Jan, Cough R05 ; Bronchitis J40 ; Wheezing R06.2 ; Unspecified superficial injury of left lesser toe(s), subsequent encounter S90.935D and Type 2 diabetes mellitus with other circulatory complications E11.[address] [address] Jan, [address] [address] December, [address] [address] December, [address] [address] December, Encounter for removal of sutures Z48.[address] [address] December, Diabetic polyneuropathy associated with type 2 diabetes mellitus E11.[address] [address] December, [address] [address] December, Infection of toe L08.[address] [address] December, [facility] [address] 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 ; Urinary incontinence R32 and Type 2 diabetes mellitus with other circulatory complications E11.59 [facility] [address] [address] December, Essential hypertension I10 ; Type 2 diabetes mellitus with other circulatory complications E11.59 and Dizziness R42 [facility] [address], [place] [address] December, Dizziness R42 ; Essential hypertension I10 and Type 2 diabetes mellitus with other circulatory complications E11.[address] [address] Nov, Breast lump N63.[address] [address] Nov, Breast lump N63.[address] [address] Nov, Breast lump N63.[address] [address] Nov, [address] [address] Nov, Mixed hyperlipidemia E78.2 ; Essential hypertension I10 and retirement 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 [address] Nov, Essential hypertension I10 ; Breast cancer screening Z12.31 ; retirement 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 ; Mixed hyperlipidemia E78.2 ; Dysuria R30.0 and Type 2 diabetes mellitus with other circulatory complications E11.59 [facility] [id number] [address] May, [facility] [address], [place] [address] Apr, [facility] [address], [place] [address] Apr, Essential hypertension I10 and Diabetic polyneuropathy associated with type 2 diabetes mellitus E11.42 [facility] [address], [place] [address] Mar, [facility] [id number] [place] [address] Feb, Onychomycosis B35.1 ; Neuropathy G62.9 and Diabetic polyneuropathy associated with type 2 diabetes mellitus E11.42 [facility] [id number] [place] [address] Feb, [facility] [id number] [place] [address] December, [facility] [id number] [place] [address] December, Herpes zoster without complication B02.9 ; Onychia of toe of left foot L03.032 ; Ingrowing toenail with infection L60.0 and Diabetic polyneuropathy associated with type 2 diabetes mellitus E11.42 [facility] [id number] [place] [address] December, [facility] [id number] [place] [address] Nov, [facility] [id number] [place] [address] Oct, Diabetic polyneuropathy associated with type 2 diabetes mellitus E11.42 [facility] [id number] [place] [address] Oct, Essential hypertension I10 and Diabetic polyneuropathy associated with type 2 diabetes mellitus E11.42 [facility] [address] [place] [address] Sep, Diabetic polyneuropathy associated with type 2 diabetes mellitus E11.42 ; Type 2 diabetes mellitus with other skin ulcer E11.622 ; Chronic pain G89.29 ; Anxiety F41.9 ; Essential hypertension I10 ; Hypoxia R09.02 ; Atrial enlargement, left I51.7 and Left ventricular enlargement I51.7 [facility] [id number] [place] [address] Sep, [facility] [address], [place] [address] Aug, [facility] [id number] [place] [address] Jul, [facility] [id number] [place] [address] Jul, [facility] [id number] [place] [address] Jul, CAD (coronary artery disease) I25.10 ; Essential hypertension I10 ; Pulmonary HTN I27.2 ; Atrial enlargement, left I51.7 and Left ventricular enlargement I51.7 [facility] [id number] [place] [address] Jun, [facility] [id number] [place] [address] Jun, [facility] [id number] [place] [address] Jun, [facility] [id number] [place] [address] Jun, [facility] [address], [place] [address] Jun, Diabetic polyneuropathy associated with type 2 diabetes mellitus E11.42 ; Type 2 diabetes mellitus with other skin ulcer E11.622 ; Chronic pain G89.29 ; Anxiety F41.9 ; Essential hypertension I10 ; Ulcer of right lower leg, with unspecified severity L97.919 ; Pulmonary HTN I27.2 ; Hypoxia R09.02 ; Atrial enlargement, left I51.7 and Left ventricular enlargement I51.7 [facility] [address], [place] [address] May, [facility] [address], [place] [address] Apr, Diabetic polyneuropathy associated with type 2 diabetes mellitus E11.42 ; Type 2 diabetes mellitus with other skin ulcer E11.622 ; Chronic pain G89.29 ; Anxiety F41.9 ; Cough R05 ; Essential hypertension I10 and Ulcer of right lower leg, with unspecified severity L97.9[address] [facility] [id number] [place] [address] Mar, Diabetic polyneuropathy associated with type 2 diabetes mellitus E11.42 ; Chronic pain G89.29 ; Anxiety F41.9 ; Type 2 diabetes mellitus with other skin ulcer E11.622 ; Cough R05 ; Essential hypertension I10 and Ulcer of right lower leg, with unspecified severity L97.919 [facility] [id number] [place] [address] Feb, [facility] [id number] [place] [address] Feb, Diabetic polyneuropathy associated with type 2 diabetes mellitus E11.42 ; Chronic pain G89.29 ; Anxiety F41.9 ; Type 2 diabetes mellitus with other skin ulcer E11.622 ; Cough R05 and Essential hypertension I10 [facility] [id number] [place] [address] Jan, Chronic pain G89.29 ; Anxiety F41.9 and Foot swelling M79.89 [facility] [id number] [place] [address] December, Chronic pain G89.29 ; Anxiety F41.9 and Stress incontinence in female N39.3 [facility] [id number] [place] [address] December, [facility] [id number] [place] [address] Nov, [facility] [id number] [place] [address] Nov, [facility] [id number] [place] [address] Nov, [facility] [address] [place] [address] Nov, Chronic pain G89.29 ; Anxiety F41.9 ; Non-healing skin lesion L98.9 and Type 2 diabetes mellitus with other skin ulcer E11.622 [facility] [id number] [place] [address] Nov, Diabetic polyneuropathy associated with type 2 diabetes mellitus E11.42 [facility] [id number] [place] [address] Nov, [facility] [id number] [place] [address] Nov, [facility] [id number] [place] [address] Nov, [facility] [id number] [place] [address] Nov, [facility] [id number] [place] [address] Nov, Diabetic polyneuropathy associated with type 2 diabetes mellitus E11.42 [facility] [id number] [place] [address] Oct, Diabetic polyneuropathy associated with type 2 diabetes mellitus E11.42 ; Essential hypertension I10 ; Chronic pain G89.29 ; Anxiety F41.9 and Skin infection L08.9 [facility] [id number] [place] [address] Oct, [facility] [id number] [place] [address] Sep, [facility] [id number] [place] [address] Sep, Diabetic polyneuropathy associated with type 2 diabetes mellitus E11.42 ; Chronic pain G89.29 ; Anxiety F41.9 and Allergic rhinitis J30.9 [facility] [id number] [place] [address] Aug, Diabetic polyneuropathy associated with type 2 diabetes mellitus E11.42 ; Chronic pain G89.29 ; Anxiety F41.9 and Allergic rhinitis J30.9 [facility] [id number] [place] [address] Jul, [facility] [address] [address] Jul, Diabetic polyneuropathy associated with type 2 diabetes mellitus E11.42 ; Dyspepsia R10.13 ; Essential hypertension I10 ; 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 ; CAD (coronary artery disease) I25.10 ; Chronic pain G89.29 ; Anxiety F41.9 ; Dysuria R30.0 and Pain of left lower leg M79.662 [facility] [address] [address] Jul, [facility] [address] [address] Jun, Diabetic polyneuropathy associated with type 2 diabetes mellitus E11.42 and 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 [facility] [address] [address] Jun, [facility] [address] [address] Jun, Neuropathy G62.9 ; Arthritis M19.90 ; Leg cramps R25.2 and Anxiety F41.9 [facility] [id number] [place] [address] May, [facility] [address] [address] May, [facility] [address] [address] May, Diabetic polyneuropathy associated with type 2 diabetes mellitus E11.42 [facility] [address] [address] May, [facility] [id number] [address] Apr, [facility] [address], [place] [address] Apr, [facility] [address], [place] [address] Apr, [facility] [address] [place] [address] 14 Apr, 2015 [facility] [address], [place] [address] Apr, [facility] [address], [place] [address] Apr, [facility] [address], [place] [address] Apr, Diabetes with renal manifestations, type II or unspecified type, uncontrolled 250.42 ; Coronary atherosclerosis of unspecified type of vessel, [place] or graft 414.00 ; Polyneuropathy in diabetes 357.2 ; Hypertension 401.9 ; Anxiety 300.00 ; GERD (gastroesophageal reflux disease) 530.81 and Type 2 diabetes mellitus with pressure callus 250.80 [facility] [address], [place] [address] Mar, [facility] [address], [place] [address] Mar, [facility] [address], [place] [address] Mar, [facility] [address], [place] [address] Mar, [facility] [address], [place] [address] Mar, Diabetes with renal manifestations, type II or unspecified type, uncontrolled 250.42 ; Coronary atherosclerosis of unspecified type of vessel, [place] or graft 414.00 ; Polyneuropathy in diabetes 357.2 ; Hypertension 401.9 and Anxiety 300.00 [facility] [address], [place] [address] 05 Mar, 2015 Routine gynecological examination V72.31 ; Breast cancer screening V76.10 ; Recurrent urinary tract infection 599.0 ; Mastodynia 611.71 and Tobacco abuse 305.1 [facility] [id number] [place] [address] Feb, [facility] [id number] [place] [address] Jan, [facility] [id number] [place] [address] Jan, [facility] [id number] [place] [address] Jan, [facility] [id number] [place] [address] Jan, [facility] [id number] [place] [address] December, [facility] [id number] [place] [address] December, [facility] [id number] [address] Nov, [facility] [id number] [place] [address] 14 Nov, 2014 [facility] [address], [place] [address] Nov, [facility] [id number] [place] [address] Oct, [facility] [id number] [address] Oct, [facility] [id number] [place] [address] 16 Oct, 2014 [facility] [place] [facility] [address] [id number] [place] [address] 16 Oct, 2014 [facility] [place] [facility] [address] [id number] [place] [address] 16 Oct, 2014 [facility] [place] [facility] [address] [id number] [place] [address] 16 Oct, 2014 [facility] [place] [facility] [address] [id number] [place] [address] 16 Oct, 2014 [facility] [place] [facility] [address] [id number] [place] [address] 16 Oct, 2014 [facility] [place] [facility] [address] [id number] [place] [address] 16 Oct, 2014 [facility] [place] [facility] [address] [id number] [place] [address] 16 Oct, 2014 [facility] [place] [facility] [address] [id number] [place] [address] 16 Oct, 2014 [facility] [place] [facility] [address] [id number] [place] [address] Oct, 2014 [facility] [place] [facility] [address] [id number] [place] [address] 04 Oct, 2014 [facility] [place] [facility] [address] [id number] [place] [address] 04 Oct, 2014 [facility] [place] [facility] [address] [id number] [place] [address] Oct, 2014 [facility] [place] [facility] [address] [id number] [place] [address] Oct, 2014 [facility] [place] [facility] [address] [id number] [place] [address] Oct, 2014 [facility] [place] [facility] [address] [id number] [place] [address] Oct, 2014 [facility] [place] [facility] [address] [id number] [place] [address] Sep, 2014 [facility] [place] [facility] [address] [id number] [place] [address] Sep, 2014 [facility] [place] [facility] [address] [facility] [id number] [place] [address] 20 Sep, 2014 [facility] [place] [facility] [address] [facility] [id number] [place] [address] Sep, 2014 [facility] [place] [facility] [address] [facility] [id number] [place] [address] Sep, 2014 [facility] [place] [facility] [address] [facility] [id number] [place] [address] Sep, 2014 [facility] [place] [facility] [id number] [place] [address] Sep, 2014 [facility] [place] [facility] [id number] [place] [address] Sep, 2014 [facility] [place] [facility] [address] [facility] [id number] [place] [address] 17 Sep, 2014 [facility] [place] [facility] [id number] [place] [address] 17 Sep, 2014 [facility] [place] [facility] [id number] [place] [address] Sep, 2014 [facility] [place] [facility] [address] [facility] [id number] [place] [address] Sep, 2014 [facility] [place] [facility] [address] [id number] [place] [address] 05 Sep, 2014 [facility] [place] [facility] [address] [facility] [id number] [place] [address] Sep, 2014 [facility] [place] [facility] [address] [facility] [id number] [address] 02 Sep, 2014 [facility] [place] [facility] [id number], [place] [address] Aug, [facility] [place] [facility] [address] [id number] [place] [address] Aug, [facility] [place] [facility] [address] [id number] [place] [address] Aug, [facility] [place] [facility] [address] [id number] [place] [address] Aug, [facility] [place] [facility] [address] [id number] [place] [address] Aug, [facility] [place] [facility] [address] [id number] [place] [address] Aug, [facility] [place] [facility] [address] [id number] [place] [address] Aug, [facility] [place] [facility] [address] [id number] [place] [address] Aug, [facility] [place] [facility] [address] [id number] [place] [address] Aug, [facility] [place] [facility] [address] [id number] [place] [address] Aug, [facility] [place] [facility] [address] [id number] [place] [address] Aug, [facility] [place] [facility] [address] [id number] [place] [address] Aug, [facility] [place] [facility] [address] [id number] [address] Aug, [facility] [place] [facility] [address] [id number] [place] [address] Jul, [facility] [place] [facility] [address] [id number] [place] [address] Jul, [facility] [place] [facility] [address] [id number] [place] [address] Jul, [facility] [place] [facility] [address] [id number] [place] [address] Jul, [facility] [place] [facility] [address] [id number] [place] [address] Jul, [facility] [place] [facility] [address] [id number] [place] [address] Jul, [facility] [place] [facility] [address] [id number] [place] [address] Jul, [facility] [place] [facility] [address] [id number] [place] [address] Jul, [facility] [place] [facility] [address] [id number] [place] [address] Jun, [facility] [place] [facility] [address] [id number] [place] [address] Jun, [facility] [place] [facility] [address] [id number] [place] [address] Jun, [facility] [place] [facility] [address] [id number] [place] [address] Jun, [facility] [place] [facility] [address] [id number] [place] [address] Jun, [facility] [place] [facility] [address] [id number] [place] [address] Jun, [facility] [place] [facility] [address] [id number] [place] [address] Jun, [facility] [place] [facility] [address] [id number] [place] [address] Jun, [facility] [place] [facility] [address] [id number] [place] [address] Jun, [facility] [place] [facility] [address] [id number] [place] [address] Jun, [facility] [place] [facility] [address] [id number] [place] [address] Jun, [facility] [place] [facility] [address] [id number] [place] [address] 14 Jun, 2014 [facility] [place] [facility] [address] [id number] [place] [address] 13 Jun, 2014 [facility] [place] [facility] [address] [id number] [place] [address] Jun, [facility] [place] [facility] [address] [id number] [place] [address] Jun, [facility] [place] [facility] [address] [id number] [place] [address] Jun, [facility] [place] [facility] [address] [id number] [place] [address] May, [facility] [place] [facility] [address] [id number] [place] [address] May, [facility] [place] [facility] [address] [id number] [place] [address] May, [facility] [place] [facility] [address] [id number] [place] [address] May, [facility] [place] [facility] [address] [id number] [place] [address] May, [facility] [place] [facility] [address] [id number], [place] [address] May, [facility] [place] [facility] [address] [id number], [place] [address] May, [facility] [place] [facility] [address] [id number], [place] [address] May, [facility] [place] [facility] [address] [id number], [place] [address] May, [facility] [place] [facility] [address] [id number], [place] [address] Apr, [facility] [place] [facility] [address] [id number], [place] [address] Apr, [facility] [place] [facility] [address] [id number] [place] [address] Apr, [facility] [place] [facility] [address] [id number] [place] [address] Apr, [facility] [place] [facility] [address] [id number] [place] [address] Mar, [facility] [place] [facility] [address] [id number] [place] [address] Mar, [facility] [place] [facility] [address] [id number] [place] [address] Mar, [facility] [place] [facility] [address] [id number] [place] [address] Mar, [facility] [place] [facility] [address] [id number] [place] [address] Feb, [facility] [place] [facility] [address] [id number] [place] [address] Feb, [facility] [place] [facility] [address] [id number] [place] [address] Jan, [facility] [place] [facility] [address] [id number] [place] [address] Jan, [facility] [place] [facility] [address] [id number] [place] [address] Jan, [facility] [place] [facility] [address] [id number] [place] [address] Jan, [facility] [place] [facility] [address] [id number] [place] [address] Jan, [facility] [place] [facility] [address] [id number] [place] [address] Jan, [facility] [place] [facility] [address] [id number] [place] [address] Jan, [facility] [place] [facility] [address] [id number] [place] [address] Jan, [facility] [place] [facility] [address] [id number] [place] [address] Jan, [facility] [place] [facility] [address] [id number] [place] [address] Jan, [facility] [place] [facility] [address] [id number] [place] [address] Jan, [facility] [place] [facility] [address] [id number] [place] [address] Jan, [facility] [place] [facility] [address] [id number] [place] [address] Jan, [facility] [place] [facility] [address] [id number] [place] [address] December, [facility] [place] [facility] [address] [id number] [place] [address] December, [facility] [place] [facility] [address] [id number] [place] [address] December, [facility] [place] [facility] [address] [id number] [place] [address] December, [facility] [place] [facility] [address] [id number] [place] [address] December, [facility] [place] [facility] [address] [id number] [place] [address] Nov, [facility] [place] [facility] [address] [id number] [place] [address] Nov, [facility] [place] [facility] [address] [id number] [place] [address] Nov, [facility] [place] [facility] [address] [id number] [place] [address] Nov, [facility] [place] [facility] [address] [id number] [place] [address] Nov, [facility] [place] [facility] [address] [id number] [place] [address] Nov, [facility] [place] [facility] [address] [id number] [place] [address] Nov, [facility] [place] [facility] [address] [id number] [place] [address] Nov, [facility] [place] [facility] [address] [id number] [place] [address] Nov, [facility] [place] [facility] [address] [id number] [place] [address] Nov, [facility] [place] [facility] [address] [id number] [place] [address] Jun, [facility] [place] [facility] [address] [id number] [place] [address] Jun, [facility] [place] [facility] [address] [id number], [place] [address] May, [facility] [place] [facility] [address] [id number] [place] [address] May, [facility] [place] [facility] [address] [id number], [place] [address] May, [facility] [place] [facility] [address] [id number], [place] [address] May, [facility] [place] [facility] [address] [id number], [place] [address] May, [facility] [place] [facility] [address] [id number] [place] [address] May, [facility] [place] [facility] [address] [id number], [place] [address] May, [facility] [place] [facility] [address] [id number] [place] [address] May, [facility] [place] [facility] [address] [id number] [place] [address] May, [facility] [address] [id number] [place] [address] 25 Apr, 2011 [facility] [address] [id number] [place] [address] 25 Apr, 2011 [facility] [address] [id number] [place] [address] 25 Apr, 2011 [facility] [address] [id number] [place] [address] 21 Apr, 2011 [facility] [address] [id number] [place] [address] 20 Apr, 2011 [facility] [address] [id number] [place] [address] 19 Apr, 2011 [facility] [address] [id number] [place] [address] 05 Apr, 2011 [facility] [address] [id number] [place] [address] 04 Apr, 2012 [facility] [address] [id number] [place] [address] 28 Mar, 2012 [facility] [address] [id number] [place] [address] 27 Mar, 2012 [facility] [address] [id number] [place] [address] 16 Mar, 2012 [facility] [address] [id number] [place] [address] 14 Mar, 2012 [facility] [address] [id number] [place] [address] Mar, [address] [id number] Mar, [facility] [address] [id number] [place] [address] Mar, [facility] [address] [id number] [place] [address] 31 Feb, 2012 [facility] [address] [id number] [place] [address] Feb, [facility] [place] [facility] [address] [id number] [place] [address] 16 Feb, 2012 [facility] [address] [id number] [place] [address] Feb, [facility] [address] [id number] [place] [address] Feb, [facility] [address] [id number] [place] [address] Feb, [facility] [address] [id number] [place] [address] Jan, [facility] [address] [id number] [place] [address] Jan, [facility] [address] [id number] [place] [address] Jan, [facility] [place] [facility] [address] [id number] [place] [address] Jan, [facility] [address] [id number] [place] [address] Jan, [facility] [place] [facility] [address] [id number] [place] [address] Jan, [facility] [place] [facility] [address] [id number] [place] [address] Jan, [facility] [place] [facility] [address] [id number] [place] [address] December, [facility] [place] [facility] [address] [id number] [place] [address] December, [facility] [place] [facility] [address] [id number] [place] [address] December, [facility] [place] [facility] [address] [id number] [place] [address] 30 Nov, 2011 [facility] [place] [facility] [address] [id number] [place] [address] Nov, [facility] [place] [facility] [address] [id number] [place] [address] Nov, [facility] [place] [facility] [address] [id number] [place] [address] Nov, [facility] [place] [facility] [address] [id number] [place] [address] Nov, [facility] [place] [facility] [address] [id number] [place] [address] Nov, [facility] [place] [facility] [address] [id number] [place] [address] Nov, [facility] [place] [facility] [address] [id number] [place] [address] Nov, [facility] [place] [facility] [address] [id number] [place] [address] Oct, [facility] [place] [facility] [address] [id number] [place] [address] Oct, [facility] [place] [facility] [address] [id number] [place] [address] Oct, [facility] [place] [facility] [address] [id number] [place] [address] Oct, [facility] [place] [facility] [address] [id number] [place] [address] Sep, [facility] [place] [facility] [address] [id number] [place] [address] Sep, [facility] [place] [facility] [address] [id number] [place] [address] Sep, [facility] [place] [facility] [address] [id number] [place] [address] Aug, [facility] [place] [facility] [address] [id number] [place] [address] Aug, [facility] [place] [facility] [address] [id number] [place] [address] Aug, [facility] [place] [facility] [address] [id number] [place] [address] Aug, [facility] [place] [facility] [address] [id number] [place] [address] 15 Jul, 2011 [facility] [place] [facility] [address] [id number] [place] [address] 15 Jul, 2011 [facility] [place] [facility] [address] [id number] [place] [address] 15 Jul, 2011 [facility] [place] [facility] [address] [id number] [place] [address] 30 Jun, 2011 [facility] [place] [facility] [address] [id number] [place] [address] 22 Jun, 2011 [facility] [place] [facility] [address] [id number] [place] [address] 15 Jun, 2011 [facility] [place] [facility] [address] [id number] [place] [address] 14 Jun, 2011 [facility] [place] [facility] [address] [id number] [place] [address] 14 Jun, 2011 [facility] [place] [facility] [address] [id number], [place] [address] 14 Jun, 2011 [facility] [place] [facility] [address] [id number] [place] [address] 31 May, 2011 [facility] [place] [facility] [address] [id number] [place] [address] 31 May, 2011 [facility] [place] [facility] [address] [id number], [place] [address] 28 May, 2011 [facility] [place] [facility] [address] [facility] [id number] [place] [address] Apr, [facility] [address] [id number] [place] [address] Mar, [facility] 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 Discharged 06/27/17 06/25/17
--- OUTSIDE RECORDS SUMMARY | 2019-03-03 10:51 | XMS REPORT ---
Author Author FAITH DEANDRE Organization [facility] Address [address] [place] [address] Care Team Providers Care Claims Director Name Role Phone FAITHDIAZDEANDRE Unavailable PROBLEMS Type Condition ICD9-CM Code ELH56-LJ Code Onset Dates Condition Status SNOMED Code Problem Dyspepsia R10.13 Active 632958453 Problem group home 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 Active 435729717 Problem Essential hypertension I10 Active 16614984 Problem Chronic pain G89.29 Active 46935103 Problem Skin infection L08.9 Active 590140448 Problem Allergic rhinitis J30.9 Active 65863443 Problem Non-healing skin lesion L98.9 Active 05445814 Problem Type 2 diabetes mellitus with other skin ulcer E11.622 Active 71262825 Problem Cough R05 Active 383160495 Problem Ulcer of right lower leg, with unspecified severity L97.919 Active 200081090 Problem Left ventricular enlargement I51.7 Active 470569841 Problem Type 2 diabetes mellitus with other circulatory complications E11.59 Active 49504426 Problem Foot swelling M79.89 Active 037283719 Problem CAD (coronary artery disease) I25.10 Active 24221368 Problem Urinary incontinence R32 Active 402278781 Problem Stress incontinence in female N39.3 Active 97833695 Problem Diabetic polyneuropathy associated with type 2 diabetes mellitus E11.42 Active 71673188 Problem Anxiety F41.9 Active 00013352 Problem Atrial enlargement, left I51.7 Active 79766188871692 Problem Pulmonary HTN I27.2 Active 47599151 Problem Neuropathy G62.9 Active 751043243 Problem Mixed hyperlipidemia E78.2 Active 902280000 ALLERGIES No Information ENCOUNTERS Encounter Location Date Diagnosis [address] [address] Feb, Wheezing R06.2 and Cough R05 [address] [address] Jan, Diabetic polyneuropathy associated with type 2 diabetes mellitus E11.42 [facility] [address] [place] [address] Jan, [facility] [address] [address] Jan, Wheezing R06.2 and Cough R05 [facility] [address] [address] Jan, Cough R05 ; Bronchitis J40 ; Wheezing R06.2 ; Unspecified superficial injury of left lesser toe(s), subsequent encounter S90.935D and Type 2 diabetes mellitus with other circulatory complications E11.59 [facility] [place] [address] [address] Jan, [facility] [address] [address] December, [facility] [place] [address] [address] December, [address] [address] December, Encounter for removal of sutures Z48.02 [facility] [place] [address] [address] December, Diabetic polyneuropathy associated with type 2 diabetes mellitus E11.42 [facility] [address] [address] December, [address] [address] December, Infection of toe L08.9 [facility] [place] [address] [address] December, [facility] [address] [facility] [id number] [address] December, Diabetic polyneuropathy associated with type 2 diabetes mellitus E11.42 ; group home 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 ; Urinary incontinence R32 and Type 2 diabetes mellitus with other circulatory complications E11.59 [facility] [address] [facility] [id number], [place] [address] December, Essential hypertension I10 ; Type 2 diabetes mellitus with other circulatory complications E11.59 and Dizziness R42 [place] [address], [place] [address] December, Dizziness R42 ; Essential hypertension I10 and Type 2 diabetes mellitus with other circulatory complications E11.[address] [address] Nov, Breast lump N63.[address] [address] Nov, Breast lump N63.[address] [address] Nov, Breast lump N63.[address] [address] Nov, [address] [address] Nov, Mixed hyperlipidemia E78.2 ; Essential hypertension I10 and group home 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 [address] Nov, Essential hypertension I10 ; Breast cancer screening Z12.31 ; 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 ; Mixed hyperlipidemia E78.2 ; Dysuria R30.0 and Type 2 diabetes mellitus with other circulatory complications E11.59 [place] [address], [place] [address] May, [place] [address], [place] [address] Apr, [place] [address], [place] [address] Apr, Essential hypertension I10 and Diabetic polyneuropathy associated with type 2 diabetes mellitus E11.42 [place] [address], [place] [address] Mar, [place] [address], [place] [address] Feb, Onychomycosis B35.1 ; Neuropathy G62.9 and Diabetic polyneuropathy associated with type 2 diabetes mellitus E11.42 [place] [address] [place] [id number] [address] Feb, [facility] [address] [place] [id number] [place] [address] December, [facility] [address] [place] [address] [id number] [place] [address] December, Herpes zoster without complication B02.9 ; Onychia of toe of left foot L03.032 ; Ingrowing toenail with infection L60.0 and Diabetic polyneuropathy associated with type 2 diabetes mellitus E11.42 [place] [address] [place] [id number] [place] [address] December, [place] [address] [place] [id number] [place] [address] Nov, [place] [address] [place] [id number] [place] [address] Oct, Diabetic polyneuropathy associated with type 2 diabetes mellitus E11.42 [place] [address] [place] [id number] [place] [address] Oct, Essential hypertension I10 and Diabetic polyneuropathy associated with type 2 diabetes mellitus E11.42 [place] [address], [place] [address] Sep, Diabetic polyneuropathy associated with type 2 diabetes mellitus E11.42 ; Type 2 diabetes mellitus with other skin ulcer E11.622 ; Chronic pain G89.29 ; Anxiety F41.9 ; Essential hypertension I10 ; Hypoxia R09.02 ; Atrial enlargement, left I51.7 and Left ventricular enlargement I51.7 [place] [address] [place] [id number] [place] [address] Sep, [facility] [address] [id number], [place] [address] Aug, [place] [address] [place] [address] Jul, [facility] [address] [place] [address] Jul, [facility] [address], [place] [address] Jul, CAD (coronary artery disease) I25.10 ; Essential hypertension I10 ; Pulmonary HTN I27.2 ; Atrial enlargement, left I51.7 and Left ventricular enlargement I51.7 [facility] [address], [place] [address] Jun, [facility] [address] [place] [id number] [place] [address] Jun, [facility] [address] [place] [id number] [place] [address] Jun, [facility] [address] [place] [id number] [place] [address] Jun, [facility] [address], [place] [address] Jun, Diabetic polyneuropathy associated with type 2 diabetes mellitus E11.42 ; Type 2 diabetes mellitus with other skin ulcer E11.622 ; Chronic pain G89.29 ; Anxiety F41.9 ; Essential hypertension I10 ; Ulcer of right lower leg, with unspecified severity L97.919 ; Pulmonary HTN I27.2 ; Hypoxia R09.02 ; Atrial enlargement, left I51.7 and Left ventricular enlargement I51.7 [facility] [address], [place] [address] May, [facility] [address] [place] [address] Apr, Diabetic polyneuropathy associated with type 2 diabetes mellitus E11.42 ; Type 2 diabetes mellitus with other skin ulcer E11.622 ; Chronic pain G89.29 ; Anxiety F41.9 ; Cough R05 ; Essential hypertension I10 and Ulcer of right lower leg, with unspecified severity L97.919 [place] [address] [place] [id number] [place] [address] 11 Mar, 2016 Diabetic polyneuropathy associated with type 2 diabetes mellitus E11.42 ; Chronic pain G89.29 ; Anxiety F41.9 ; Type 2 diabetes mellitus with other skin ulcer E11.622 ; Cough R05 ; Essential hypertension I10 and Ulcer of right lower leg, with unspecified severity L97.919 [place] [address] [place] [id number] [place] [address] 20 Feb, 2016 [place] [address] [place] [id number] [place] [address] 14 Feb, 2016 Diabetic polyneuropathy associated with type 2 diabetes mellitus E11.42 ; Chronic pain G89.29 ; Anxiety F41.9 ; Type 2 diabetes mellitus with other skin ulcer E11.622 ; Cough R05 and Essential hypertension I10 [place] [address] [place] [id number] [place] [address] Jan, Chronic pain G89.29 ; Anxiety F41.9 and Foot swelling M79.89 [place] [address] [place] [id number] [place] [address] December, Chronic pain G89.29 ; Anxiety F41.9 and Stress incontinence in female N39.3 [place] [address] [place] [id number] [place] [address] December, [place] [address] [place] [id number] [place] [address] Nov, [place] [address] [place] [id number] [place] [address] Nov, [place] [address] [place] [id number] [place] [address] Nov, [place] [address] [place] [id number] [place] [address] Nov, Chronic pain G89.29 ; Anxiety F41.9 ; Non-healing skin lesion L98.9 and Type 2 diabetes mellitus with other skin ulcer E11.622 [facility] [address], [place] [address] Nov, Diabetic polyneuropathy associated with type 2 diabetes mellitus E11.42 [facility] [address], [place] [address] Nov, [place] [address] [place] [id number] [place] [address] Nov, [facility] [address] [place] [id number] [place] [address] Nov, [place] [address] [place] [id number] [place] [address] Nov, [place] [address] [place] [id number] [place] [address] Nov, Diabetic polyneuropathy associated with type 2 diabetes mellitus E11.42 [place] [address] [place] [id number] [place] [address] Oct, Diabetic polyneuropathy associated with type 2 diabetes mellitus E11.42 ; Essential hypertension I10 ; Chronic pain G89.29 ; Anxiety F41.9 and Skin infection L08.9 [place] [address] [place] [id number] [place] [address] Oct, [place] [address] [place] [address] Sep, [place] [address] [place] [id number] [place] [address] Sep, Diabetic polyneuropathy associated with type 2 diabetes mellitus E11.42 ; Chronic pain G89.29 ; Anxiety F41.9 and Allergic rhinitis J30.9 [place] [address] [place] [address] Aug, Diabetic polyneuropathy associated with type 2 diabetes mellitus E11.42 ; Chronic pain G89.29 ; Anxiety F41.9 and Allergic rhinitis J30.9 [place] [address] [place] [id number] [place] [address] Jul, [place] [address] [address] Jul, Diabetic polyneuropathy associated with type 2 diabetes mellitus E11.42 ; Dyspepsia R10.13 ; Essential hypertension I10 ; 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 ; CAD (coronary artery disease) I25.10 ; Chronic pain G89.29 ; Anxiety F41.9 ; Dysuria R30.0 and Pain of left lower leg M79.662 [place] [address] [address] Jul, [place] [address] [address] Jun, Diabetic polyneuropathy associated with type 2 diabetes mellitus E11.42 and group home 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 [place] [address] [address] Jun, [place] [address] [address] Jun, Neuropathy G62.9 ; Arthritis M19.90 ; Leg cramps R25.2 and Anxiety F41.9 [place] [address] [place] [id number] [place] [address] May, [place] [address] [address] May, [place] [address] [place] [id number] [place] [address] May, Diabetic polyneuropathy associated with type 2 diabetes mellitus E11.42 [place] [address] [address] May, [place] [address] [address] Apr, [place] [address] [place] [address] Apr, [facility] [address], [place] [address] 17 Apr, 2015 [facility] [address] [place] [address] 14 Apr, 2015 [facility] [address] [place] [address] Apr, [facility] [address] [place] [id number] [place] [address] Apr, [facility] [address] [place] [id number] [place] [address] Apr, Diabetes with renal manifestations, type II or unspecified type, uncontrolled 250.42 ; Coronary atherosclerosis of unspecified type of vessel, [place] or graft 414.00 ; Polyneuropathy in diabetes 357.2 ; Hypertension 401.9 ; Anxiety 300.00 ; GERD (gastroesophageal reflux disease) 530.81 and Type 2 diabetes mellitus with pressure callus 250.80 [facility] [address] [place] [address] Mar, [facility] [address] [place] [id number] [place] [address] Mar, [facility] [address], [place] [address] Mar, [facility] [address] [place] [id number] [place] [address] Mar, [facility] [address] [place] [address] Mar, Diabetes with renal manifestations, type II or unspecified type, uncontrolled 250.42 ; Coronary atherosclerosis of unspecified type of vessel, [place] or graft 414.00 ; Polyneuropathy in diabetes 357.2 ; Hypertension 401.9 and Anxiety 300.00 [facility] [address], [place] [address] Mar, Routine gynecological examination V72.31 ; Breast cancer screening V76.10 ; Recurrent urinary tract infection 599.0 ; Mastodynia 611.71 and Tobacco abuse 305.1 [facility] [address], [place] [address] Feb, [facility] [address], [place] [address] Jan, [facility] [address] [place] [id number] [place] [address] Jan, [facility] [address] [facility] [id number] [address] Jan, [facility] [address] [place] [id number] [place] [address], [place] [address] Jan, [facility] [address] [address] [address] December, [facility] [address] [place] [id number] [place] [address] December, [facility] [address], [place] [address] Nov, [facility] [address], [place] [address] Nov, [facility] [address], [place] [address] Nov, [facility] [address], [place] [address] Oct, [facility] [address] [place] [id number], [place] [address] Oct, [facility] [address], [place] [address] 16 Oct, 2014 [facility] [address] [id number], [place] [address] 16 Oct, 2014 [facility] [address], [place] [address] 16 Oct, 2014 [facility] [place] [facility] [address] [id number] [place] [address] 16 Oct, 2014 [facility] [place] [facility] [address] [id number] [place] [address] Oct, [facility] [place] [facility] [address] [id number] [place] [address] Oct, [facility] [place] [facility] [address] [id number] [place] [address] Oct, [facility] [place] [facility] [address] [id number] [place] [address] Oct, [facility] [place] [facility] [address] [id number] [place] [address] Oct, [facility] [place] [facility] [address] [id number] [place] [address] Oct, [facility] [place] [facility] [address] [id number] [place] [address] Oct, [facility] [place] [facility] [address] [id number] [place] [address] Oct, [facility] [place] [facility] [address] [id number] [place] [address] Oct, [facility] [place] [facility] [address] [id number] [place] [address] Oct, [facility] [place] [facility] [address] [id number] [place] [address] Oct, [facility] [place] [facility] [address] [id number] [place] [address] Oct, [facility] [place] [facility] [address] [id number] [place] [address] Sep, [facility] [place] [facility] [address] [id number] [place] [address] Sep, [facility] [place] [facility] [address] [id number] [place] [address] Sep, 2014 [facility] [place] [facility] [address] [id number] [place] [address] Sep, 2014 [facility] [place] [facility] [address] [id number] [place] [address] Sep, 2014 [facility] [place] [facility] [address] [id number] [place] [address] Sep, 2014 [facility] [place] [facility] [address] [id number] [place] [address] Sep, 2014 [facility] [place] [facility] [address] [id number] [place] [address] Sep, 2014 [facility] [place] [facility] [address] [facility] [id number] [place] [address] Sep, 2014 [facility] [place] [facility] [address] [facility] [id number] [place] [address] Sep, 2014 [facility] [place] [facility] [address] [facility] [id number] [place] [address] Sep, 2014 [facility] [place] [facility] [address] [facility] [id number] [place] [address] Sep, 2014 [facility] [place] [facility] [address] [facility] [id number] [place] [address] Sep, 2014 [facility] [place] [facility] [address] [facility] [id number] [address] Sep, 2014 [facility] [place] [facility] [address] [facility] [id number] [place] [address] Sep, 2014 [facility] [place] [facility] [address] [id number] [place] [address] Aug, [facility] [place] [facility] [address] [facility] [id number] [place] [address] Aug, [facility] [place] [facility] [address] [id number] [place] [address] Aug, [facility] [place] [facility] [address] [id number] [place] [address] Aug, [facility] [place] [facility] [address] [id number] [place] [address] Aug, [facility] [place] [facility] [address] [id number] [place] [address] Aug, [facility] [place] [facility] [address] [id number] [place] [address] Aug, [facility] [place] [facility] [address] [id number] [place] [address] Aug, [facility] [place] [facility] [address] [id number] [place] [address] Aug, [facility] [place] [facility] [address] [id number] [place] [address] Aug, [facility] [place] [facility] [address] [id number] [place] [address] Aug, [facility] [place] [facility] [address] [id number] [place] [address] Aug, [facility] [place] [facility] [address] [id number] [place] [address] Aug, [facility] [place] [facility] [address] [id number] [place] [address] Jul, [facility] [place] [facility] [address] [id number] [place] [address] Jul, [facility] [place] [facility] [address] [id number] [place] [address] Jul, [facility] [place] [facility] [address] [id number] [place] [address] Jul, [facility] [place] [facility] [address] [id number] [place] [address] Jul, [facility] [place] [facility] [address] [id number] [place] [address] Jul, [facility] [place] [facility] [address] [id number] [place] [address] Jul, [facility] [place] [facility] [address] [id number] [place] [address] Jul, [facility] [place] [facility] [address] [id number] [place] [address] Jun, [facility] [place] [facility] [address] [id number] [place] [address] Jun, [facility] [place] [facility] [address] [id number] [place] [address] Jun, [facility] [place] [facility] [address] [id number] [place] [address] Jun, [facility] [place] [facility] [address] [id number] [place] [address] Jun, [facility] [place] [facility] [address] [id number] [place] [address] Jun, [facility] [place] [facility] [address] [id number] [place] [address] Jun, [facility] [place] [facility] [address] [id number] [place] [address] Jun, [facility] [place] [facility] [address] [id number] [place] [address] Jun, [facility] [place] [facility] [address] [id number] [place] [address] Jun, [facility] [place] [facility] [address] [id number] [place] [address] Jun, [facility] [place] [facility] [address] [id number] [place] [address] Jun, [facility] [place] [facility] [address] [id number] [place] [address] Jun, [facility] [place] [facility] [address] [id number] [place] [address] Jun, [facility] [place] [facility] [address] [id number] [place] [address] Jun, [facility] [place] [facility] [address] [id number] [place] [address] Jun, [facility] [place] [facility] [address] [id number] [place] [address] May, [facility] [place] [facility] [address] [id number] [place] [address] May, [facility] [place] [facility] [address] [id number] [place] [address] May, [facility] [place] [facility] [address] [id number] [place] [address] May, [facility] [place] [facility] [address] [id number] [place] [address] May, [facility] [place] [facility] [address] [id number] [place] [address] May, [facility] [place] [facility] [address] [id number] [place] [address] May, [facility] [place] [facility] [address] [id number], [place] [address] May, [facility] [place] [facility] [address] [id number], [place] [address] May, [facility] [place] [facility] [address] [id number] [place] [address] Apr, [facility] [place] [facility] [address] [id number] [place] [address] Apr, [facility] [place] [facility] [address] [id number] [place] [address] Apr, [facility] [place] [facility] [address] [id number] [place] [address] Apr, [facility] [place] [facility] [address] [id number] [place] [address] Mar, [facility] [place] [facility] [address] [id number] [place] [address] Mar, [facility] [place] [facility] [address] [id number] [place] [address] Mar, [facility] [place] [facility] [address] [id number] [place] [address] Mar, [facility] [place] [facility] [address] [address] [id number] [place] [address] Feb, [facility] [place] [facility] [address] [id number] [place] [address] Feb, [facility] [place] [facility] [address] [id number] [place] [address] Jan, [facility] [place] [facility] [address] [id number] [place] [address] Jan, [facility] [place] [facility] [address] [id number] [place] [address] Jan, [facility] [place] [facility] [address] [id number] [place] [address] Jan, [facility] [place] [facility] [address] [id number] [place] [address] Jan, [facility] [place] [facility] [address] [id number] [place] [address] Jan, [facility] [place] [facility] [address] [id number] [place] [address] Jan, [facility] [place] [facility] [address] [id number] [place] [address] Jan, [facility] [place] [facility] [address] [id number] [place] [address] Jan, [facility] [place] [facility] [address] [id number] [place] [address] Jan, [facility] [place] [facility] [address] [id number] [place] [address] Jan, [facility] [place] [facility] [address] [id number] [place] [address] Jan, [facility] [place] [facility] [address] [id number] [place] [address] Jan, [facility] [place] [facility] [address] [id number] [place] [address] December, [facility] [place] [facility] [address] [id number] [place] [address] December, [facility] [place] [facility] [address] [id number] [place] [address] December, [facility] [place] [facility] [address] [id number] [place] [address] December, [facility] [place] [facility] [address] [id number] [place] [address] December, [facility] [place] [facility] [address] [id number] [place] [address] Nov, [facility] [place] [facility] [address] [id number] [place] [address] Nov, [facility] [place] [facility] [address] [id number] [place] [address] Nov, [facility] [place] [facility] [address] [id number] [place] [address] Nov, [facility] [place] [facility] [address] [id number] [place] [address] Nov, [facility] [place] [facility] [address] [id number] [place] [address] Nov, [facility] [place] [facility] [address] [id number], [place] [address] Nov, [facility] [place] [facility] [address] [id number] [place] [address] Nov, [facility] [place] [facility] [address] [id number] [place] [address] Nov, [facility] [place] [facility] [address] [id number] [place] [address] Nov, [facility] [place] [facility] [address] [id number] [place] [address] Jun, [facility] [place] [facility] [address] [id number] [place] [address] Jun, [facility] [place] [facility] [address] [id number] [place] [address] May, [facility] [place] [facility] [address] [id number] [place] [address] May, [facility] [place] [facility] [address] [id number] [place] [address] May, [facility] [place] [facility] [address] [id number] [place] [address] May, [facility] [place] [facility] [address] [facility] [id number], [place] [address] May, [facility] [place] [facility] [address] [id number], [place] [address] May, [facility] [place] [facility] [address] [id number], [place] [address] May, [facility] [place] [facility] [address] [id number], [place] [address] May, [facility] [place] [facility] [address] [facility] [id number], [place] [address] May, [facility] [place] [facility] [address] [id number] [place] [address] Apr, [facility] [place] [facility] [address] [id number] [place] [address] 25 Apr, 2011 [facility] [address] [id number] [place] [address] 25 Apr, 2011 [facility] [address] [id number] [place] [address] 21 Apr, 2011 [facility] [address] [id number] [place] [address] 20 Apr, 2011 [facility] [address] [id number] [place] [address] 19 Apr, 2011 [facility] [address] [id number] [place] [address] 05 Apr, 2011 [facility] [address] [id number] [place] [address] 04 Apr, 2012 [facility] [address] [id number] [place] [address] 28 Mar, 2012 [facility] [address] [id number] [place] [address] Mar, [facility] [address] [id number] [place] [address] 16 Mar, 2012 [facility] [address] [id number] [place] [address] 14 Mar, 2012 [facility] [address] [id number] [place] [address] Mar, [facility] [address] [place] [id number] Mar, [facility] [address] [id number] [place] [address] Mar, [facility] [address] [id number] [place] [address] Feb, [facility] [address] [id number] [place] [address] Feb, [facility] [place] [facility] [address] [id number] [place] [address] 16 Feb, 2012 [facility] [place] [facility] [address] [id number] [place] [address] Feb, [facility] [place] [facility] [address] [id number] [place] [address] Feb, [facility] [place] [facility] [address] [id number] [place] [address] Feb, [facility] [place] [facility] [address] [id number] [place] [address] Jan, [facility] [place] [facility] [address] [id number] [place] [address] Jan, [facility] [place] [facility] [address] [id number] [place] [address] Jan, [facility] [place] [facility] [address] [id number] [place] [address] Jan, [facility] [place] [facility] [address] [id number] [place] [address] Jan, [facility] [place] [facility] [address] [id number] [place] [address] Jan, [facility] [place] [facility] [address] [id number] [place] [address] Jan, [facility] [place] [facility] [address] [id number] [place] [address] December, [facility] [place] [facility] [address] [id number] [place] [address] December, [facility] [place] [facility] [address] [id number] [place] [address] December, [facility] [place] [facility] [address] [id number] [place] [address] Nov, [facility] [place] [facility] [address] [id number] [place] [address] Nov, [facility] [place] [facility] [address] [id number] [place] [address] Nov, [facility] [place] [facility] [address] [id number] [place] [address] Nov, [facility] [place] [facility] [address] [id number] [place] [address] Nov, [facility] [place] [facility] [address] [id number] [place] [address] 18 Nov, 2011 [facility] [place] [facility] [address] [id number] [place] [address] Nov, [facility] [place] [facility] [address] [id number] [place] [address] Nov, [facility] [place] [facility] [address] [id number] [place] [address] Oct, [facility] [place] [facility] [address] [id number] [place] [address] Oct, [facility] [place] [facility] [address] [id number] [place] [address] Oct, [facility] [place] [facility] [address] [id number] [place] [address] Oct, [facility] [place] [facility] [address] [id number] [place] [address] Sep, [facility] [place] [facility] [address] [id number] [place] [address] Sep, [facility] [place] [facility] [address] [id number] [place] [address] Sep, [facility] [place] [facility] [address] [id number] [place] [address] Aug, [facility] [place] [facility] [address] [id number] [place] [address] Aug, [facility] [place] [facility] [address] [id number] [place] [address] Aug, [facility] [address] [id number] [place] [address] Aug, [facility] [place] [facility] [address] [id number] [place] [address] 15 Jul, 2011 [facility] [place] [facility] [address] [id number] [place] [address] 15 Jul, 2011 [facility] [place] [facility] [address] [id number] [place] [address] 15 Jul, 2011 [facility] [place] [facility] [address] [id number] [place] [address] 30 Jun, 2011 [facility] [place] [facility] [address] [id number] [place] [address] 22 Jun, 2011 [facility] [place] [facility] [address] [id number] [place] [address] 15 Jun, 2011 [facility] [place] [facility] [address] [id number] [place] [address] 14 Jun, 2011 [facility] [place] [facility] [address] [id number] [place] [address] 14 Jun, 2011 [facility] [place] [facility] [address] [id number] [place] [address] 14 Jun, 2011 [facility] [place] [facility] [address] [id number] [place] [address] 31 May, 2011 [facility] [place] [facility] [address] [id number] [place] [address] 31 May, 2011 [facility] [place] [facility] [address] [id number] [place] [address] 28 May, 2011 [facility] [place] [facility] [address] [id number] [place] [address] Apr, [facility] [place] [facility] [address] [id number] [place] [address] Mar, [facility] [address] [facility] [id number] [place] [address] Aug, IMMUNIZATIONS No Known Immunizations SOCIAL HISTORY [...] Coronary atherosclerosis of unspecified type of vessel, [place] or graft Surgical History partial hysterectomy 1991 Surgical History heart cath 2004, 2011 Hospitalization History minor [place] 2004 Hospitalization History [facility] for pancreatitis 11/2010 [facility]ization History [facility] 12/2011 Hospitalization History guih infection-Shira Colby 05/[address] [facility]- Heart failure, uncontrolled Hyperglycemia. Discharged 06/27/17 06/25/17
--- OUTSIDE RECORDS SUMMARY | 2019-03-03 10:52 | XMS REPORT ---
Author Author COC[facility] B[facility] Address [address] [place] [address] Care Team Providers Care Senior Qa Analyst Name Role Phone C[facility]O BAH Unavailable PROBLEMS Type Condition ICD9-CM Code QZU19-VR Code Onset Dates Condition Status SNOMED Code Problem Dyspepsia R10.13 Active 442005979 Problem half-way 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 Active 755164720 Problem Essential hypertension I10 Active 46109005 Problem Chronic pain G89.29 Active 77996126 Problem Skin infection L08.9 Active 593928271 Problem Allergic rhinitis J30.9 Active 76847943 Problem Non-healing skin lesion L98.9 Active 39769178 Problem Type 2 diabetes mellitus with other skin ulcer E11.622 Active 44501091 Problem Cough R05 Active 758979454 Problem Ulcer of right lower leg, with unspecified severity L97.919 Active 580629698 Problem Left ventricular enlargement I51.7 Active 857230862 Problem Type 2 diabetes mellitus with other circulatory complications E11.59 Active 59010853 Problem Foot swelling M79.89 Active 362526010 Problem CAD (coronary artery disease) I25.10 Active 19835595 Problem Urinary incontinence R32 Active 741103151 Problem Stress incontinence in female N39.3 Active 44960360 Problem Diabetic polyneuropathy associated with type 2 diabetes mellitus E11.42 Active 89030408 Problem Anxiety F41.9 Active 35777677 Problem Atrial enlargement, left I51.7 Active 32761233605457 Problem Pulmonary HTN I27.2 Active 56311189 Problem Neuropathy G62.9 Active 737960127 Problem Mixed hyperlipidemia E78.2 Active 409250904 ALLERGIES No Information ENCOUNTERS Encounter Location Date Diagnosis [address] [address] Feb, Wheezing R06.2 and Cough R05 [address] [address] Jan, Diabetic polyneuropathy associated with type 2 diabetes mellitus E11.42 [facility] [address] [address] Jan, [facility] [address] [address] Jan, Wheezing R06.2 and Cough R05 [facility] [address] [address] Jan, Cough R05 ; Bronchitis J40 ; Wheezing R06.2 ; Unspecified superficial injury of left lesser toe(s), subsequent encounter S90.935D and Type 2 diabetes mellitus with other circulatory complications E11.59 [facility] [address] [address] Jan, [facility] [address] [address] December, [facility] [address] [address] December, [address] [address] December, Encounter for removal of sutures Z48.02 [facility] [address] [address] December, Diabetic polyneuropathy associated with type 2 diabetes mellitus E11.42 [facility] [address] [address] December, [address] [address] December, Infection of toe L08.9 [facility] [address] [address] December, [facility] [address] [facility] [id number] [address] December, Diabetic polyneuropathy associated with type 2 diabetes mellitus E11.42 ; half-way 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 ; Urinary incontinence R32 and Type 2 diabetes mellitus with other circulatory complications E11.59 [facility] [address] [facility] [id number] [place] [address] December, Essential hypertension I10 ; Type 2 diabetes mellitus with other circulatory complications E11.59 and Dizziness R42 [place] [id number] [address] December, Dizziness R42 ; Essential hypertension I10 and Type 2 diabetes mellitus with other circulatory complications E11.[address] [address] Nov, Breast lump N63.[address] [address] Nov, Breast lump N63.[address] [address] Nov, Breast lump N63.[address] [address] Nov, [address] [address] Nov, Mixed hyperlipidemia E78.2 ; Essential hypertension I10 and 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 [address] Nov, Essential hypertension I10 ; Breast cancer screening Z12.31 ; half-way 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 ; Mixed hyperlipidemia E78.2 ; Dysuria R30.0 and Type 2 diabetes mellitus with other circulatory complications E11.59 [place] [address] [address] May, [place] [address] [address] Apr, [place] [address] [address] Apr, Essential hypertension I10 and Diabetic polyneuropathy associated with type 2 diabetes mellitus E11.42 [place] [address] [address] Mar, [place] [address] [address] Feb, Onychomycosis B35.1 ; Neuropathy G62.9 and Diabetic polyneuropathy associated with type 2 diabetes mellitus E11.42 [facility] [address] [place] [id number] [address] Feb, [facility] [address] [place] [id number] [place] [address] December, [facility] [address] [place] [id number] [place] [address] December, Herpes zoster without complication B02.9 ; Onychia of toe of left foot L03.032 ; Ingrowing toenail with infection L60.0 and Diabetic polyneuropathy associated with type 2 diabetes mellitus E11.42 [place] [address] [place] [id number] [place] [address] December, [place] [address] [place] [id number] [place] [address] Nov, [facility] [address] [place] [address] [id number] [place] [address] Oct, Diabetic polyneuropathy associated with type 2 diabetes mellitus E11.42 [place] [address] [place] [id number] [place] [address] Oct, Essential hypertension I10 and Diabetic polyneuropathy associated with type 2 diabetes mellitus E11.42 [place] [address] [place] [address] [place] [address] Sep, Diabetic polyneuropathy associated with type 2 diabetes mellitus E11.42 ; Type 2 diabetes mellitus with other skin ulcer E11.622 ; Chronic pain G89.29 ; Anxiety F41.9 ; Essential hypertension I10 ; Hypoxia R09.02 ; Atrial enlargement, left I51.7 and Left ventricular enlargement I51.7 [place] [address] [place] [id number] [place] [address] Sep, [facility] [address] [place] [address] [id number] [place] [address] Aug, [facility] [address] [id number] [address] Jul, [facility] [address] [place] [address] [id number] [place] [address] Jul, [facility] [address] [place] [address] Jul, CAD (coronary artery disease) I25.10 ; Essential hypertension I10 ; Pulmonary HTN I27.2 ; Atrial enlargement, left I51.7 and Left ventricular enlargement I51.7 [facility] [address] [place] [id number] [place] [address] Jun, [facility] [address] [place] [address] [id number] [place] [address] Jun, [facility] [address] [place] [id number] [place] [address] Jun, [place] [address] [place] [id number] [place] [address] Jun, [facility] [address] [place] [address] Jun, Diabetic polyneuropathy associated with type 2 [...] I51.7 [facility] [address] [address] May, [facility] [address] [place] [address] Apr, Diabetic polyneuropathy associated with type 2 diabetes mellitus E11.42 ; Type 2 diabetes mellitus with other skin ulcer E11.622 ; Chronic pain G89.29 ; Anxiety F41.9 ; Cough R05 ; Essential hypertension I10 and Ulcer of right lower leg, with unspecified severity L97.919 [place] [address] [place] [address] [place] [address] 11 Mar, 2016 Diabetic polyneuropathy associated with type 2 diabetes mellitus E11.42 ; Chronic pain G89.29 ; Anxiety F41.9 ; Type 2 diabetes mellitus with other skin ulcer E11.622 ; Cough R05 ; Essential hypertension I10 and Ulcer of right lower leg, with unspecified severity L97.919 [place] [address] [place] [address] [place] [address] 20 Feb, 2016 [place] [address] [place] [address] [place] [address] 14 Feb, 2016 Diabetic polyneuropathy associated with type 2 diabetes mellitus E11.42 ; Chronic pain G89.29 ; Anxiety F41.9 ; Type 2 diabetes mellitus with other skin ulcer E11.622 ; Cough R05 and Essential hypertension I10 [place] [address] [place] [id number] [place] [address] Jan, Chronic pain G89.29 ; Anxiety F41.9 and Foot swelling M79.89 [place] [address] [place] [address] [place] [address] December, Chronic pain G89.29 ; Anxiety F41.9 and Stress incontinence in female N39.3 [place] [address] [place] [address] [place] [address] December, [place] [address] [place] [address] [place] [address] Nov, [place] [address] [place] [address] [place] [address] Nov, [place] [address] [place] [address] [place] [address] Nov, [place] [address] [place] [address] [place] [address] Nov, Chronic pain G89.29 ; Anxiety F41.9 ; Non-healing skin lesion L98.9 and Type 2 diabetes mellitus with other skin ulcer E11.622 [facility] [address] [address] Nov, Diabetic polyneuropathy associated with type 2 diabetes mellitus E11.42 [facility] [address] [address] Nov, [facility] [address] [place] [address] Nov, [facility] [address] [place] [address] Nov, [facility] [address] [place] [address] Nov, [facility] [address] [place] [address] Nov, Diabetic polyneuropathy associated with type 2 diabetes mellitus E11.42 [place] [address] [place] [address] Oct, Diabetic polyneuropathy associated with type 2 diabetes mellitus E11.42 ; Essential hypertension I10 ; Chronic pain G89.29 ; Anxiety F41.9 and Skin infection L08.9 [place] [address] [address] Oct, [facility] [address] [address] Sep, [facility] [address] [address] Sep, Diabetic polyneuropathy associated with type 2 diabetes mellitus E11.42 ; Chronic pain G89.29 ; Anxiety F41.9 and Allergic rhinitis J30.9 [place] [address] [address] Aug, Diabetic polyneuropathy associated with type 2 diabetes mellitus E11.42 ; Chronic pain G89.29 ; Anxiety F41.9 and Allergic rhinitis J30.9 [place] [address] [place] [address] [place] [address] Jul, [place] [address] [address] Jul, Diabetic polyneuropathy associated with type 2 diabetes mellitus E11.42 ; Dyspepsia R10.13 ; Essential hypertension I10 ; 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 ; CAD (coronary artery disease) I25.10 ; Chronic pain G89.29 ; Anxiety F41.9 ; Dysuria R30.0 and Pain of left lower leg M79.662 [place] [address] [address] Jul, [place] [address] [address] Jun, Diabetic polyneuropathy associated with type 2 diabetes mellitus E11.42 and 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 [place] [address] [address] Jun, [place] [address] [address] Jun, Neuropathy G62.9 ; Arthritis M19.90 ; Leg cramps R25.2 and Anxiety F41.9 [place] [address] [place] [address] [place] [address] May, [place] [address] [place] [address] [place] [address] May, [place] [address] [place] [address] [place] [address] May, Diabetic polyneuropathy associated with type 2 diabetes mellitus E11.42 [place] [address] [address] May, [place] [address] [place] [address] [place] [address] Apr, [place] [address] [place] [address] Apr, [facility] [address] [address] [id number] [place] [address] Apr, [facility] [address] [place] [address] 14 Apr, 2015 [facility] [address] [address] [id number] [place] [address] Apr, [facility] [address] [place] [address] [place] [address] Apr, [facility] [address] [place] [address] [place] [address] Apr, Diabetes with renal manifestations, type II or unspecified type, uncontrolled 250.42 ; Coronary atherosclerosis of unspecified type of vessel, [place] or graft 414.00 ; Polyneuropathy in diabetes 357.2 ; Hypertension 401.9 ; Anxiety 300.00 ; GERD (gastroesophageal reflux disease) 530.81 and Type 2 diabetes mellitus with pressure callus 250.80 [facility] [address] [place] [address] [place] [address] Mar, [facility] [address] [place] [address] [place] [address] Mar, [facility] [address] [place] [address] [place] [address] Mar, [facility] [address] [place] [id number] [place] [address] Mar, [facility] [address] [place] [address] Mar, Diabetes with renal manifestations, type II or unspecified type, uncontrolled 250.42 ; Coronary atherosclerosis of unspecified type of vessel, [place] or graft 414.00 ; Polyneuropathy in diabetes 357.2 ; Hypertension 401.9 and Anxiety 300.00 [facility] [address] [place] [address] Mar, Routine gynecological examination V72.31 ; Breast cancer screening V76.10 ; Recurrent urinary tract infection 599.0 ; Mastodynia 611.71 and Tobacco abuse 305.1 [facility] [address] [facility] [id number] [place] [address] Feb, [facility] [address] [facility] [id number] [address] Jan, [facility] [address] [facility] [id number] [place] [address] Jan, [facility] [address] [facility] [id number] [place] [address] Jan, [facility] [address] [place] [address] Jan, [facility] [address] [address] December, [facility] [address] [place] [address] December, [facility] [address] [place] [id number] [address] Nov, [facility] [address] [address] Nov, [facility] [address] [place] [id number] [address] Nov, [facility] [address] [address] Oct, [facility] [address] [facility] [id number] [place] [address] Oct, [facility] [address] [address] 16 Oct, 2014 [facility] [address] [facility] [id number] [place] [address] 16 Oct, 2014 [facility] [address] [id number] [address] 16 Oct, 2014 [facility] [place] [facility] [address] [id number] [place] [address] 16 Oct, 2014 [facility] [place] [facility] [address] [id number] [place] [address] 16 Oct, 2014 [facility] [place] [facility] [address] [id number] [place] [address] Oct, [facility] [place] [facility] [address] [id number] [place] [address] Oct, [facility] [place] [facility] [address] [id number] [place] [address] Oct, [facility] [place] [facility] [address] [id number] [place] [address] Oct, [facility] [place] [facility] [address] [id number] [place] [address] Oct, [facility] [place] [facility] [address] [id number] [place] [address] Oct, [facility] [place] [facility] [address] [id number] [place] [address] Oct, [facility] [place] [facility] [address] [id number] [place] [address] Oct, [facility] [place] [facility] [address] [id number] [place] [address] Oct, [facility] [place] [facility] [address] [id number] [place] [address] Oct, [facility] [place] [facility] [address] [id number] [place] [address] Oct, [facility] [place] [facility] [address] [id number] [place] [address] Sep, [facility] [place] [facility] [address] [id number] [place] [address] Sep, [facility] [place] [facility] [address] [id number] [place] [address] Sep, 2014 [facility] [place] [facility] [address] [id number] [place] [address] Sep, 2014 [facility] [place] [facility] [address] [id number] [place] [address] Sep, 2014 [facility] [place] [facility] [address] [facility] [id number] [place] [address] Sep, 2014 [facility] [place] [facility] [address] [id number] [place] [address] Sep, 2014 [facility] [place] [facility] [address] [id number] [place] [address] Sep, 2014 [facility] [place] [facility] [address] [facility] [id number] [place] [address] Sep, 2014 [facility] [place] [facility] [address] [facility] [id number] [place] [address] Sep, 2014 [facility] [place] [facility] [address] [facility] [id number] [place] [address] Sep, 2014 [facility] [place] [facility] [address] [place] [address] [id number] [place] [address] Sep, 2014 [facility] [place] [facility] [address] [id number] [address] Sep, 2014 [facility] [place] [facility] [address] [facility] [id number] [place] [address] Sep, 2014 [facility] [place] [facility] [address] [facility] [id number] [place] [address] Sep, 2014 [facility] [place] [facility] [address] [facility] [id number] [place] [address] Aug, [facility] [place] [facility] [address] [facility] [id number] [place] [address] Aug, [facility] [place] [facility] [address] [facility] [id number] [place] [address] Aug, [facility] [address] [id number] [place] [address] Aug, [facility] [place] [facility] [address] [id number] [place] [address] Aug, [facility] [place] [facility] [address] [id number] [place] [address] Aug, [facility] [place] [facility] [address] [id number] [place] [address] Aug, [facility] [place] [facility] [address] [id number] [place] [address] Aug, [facility] [place] [facility] [address] [id number] [place] [address] Aug, [facility] [address] [id number] [place] [address] Aug, [facility] [place] [facility] [address] [id number] [place] [address] Aug, [facility] [place] [facility] [address] [id number] [place] [address] Aug, [facility] [place] [facility] [address] [id number] [place] [address] Aug, [facility] [place] [facility] [address] [id number] [place] [address] Jul, [facility] [place] [facility] [address] [id number] [place] [address] Jul, [facility] [place] [facility] [address] [id number] [place] [address] Jul, [facility] [place] [facility] [address] [id number] [place] [address] Jul, [facility] [place] [facility] [address] [id number] [place] [address] Jul, [facility] [place] [facility] [address] [id number] [place] [address] Jul, [facility] [place] [facility] [address] [id number] [place] [address] Jul, [facility] [place] [facility] [address] [id number] [place] [address] Jul, [facility] [place] [facility] [address] [id number] [place] [address] Jun, [facility] [place] [facility] [address] [id number] [place] [address] Jun, [facility] [place] [facility] [address] [id number] [place] [address] Jun, [facility] [place] [facility] [address] [id number] [place] [address] Jun, [facility] [place] [facility] [address] [id number] [place] [address] Jun, [facility] [place] [facility] [address] [id number] [place] [address] Jun, [facility] [place] [facility] [address] [id number] [place] [address] Jun, [facility] [place] [facility] [address] [id number] [place] [address] Jun, [facility] [place] [facility] [address] [id number] [place] [address] Jun, [facility] [place] [facility] [address] [id number] [place] [address] Jun, [facility] [place] [facility] [address] [id number] [place] [address] Jun, [facility] [place] [facility] [address] [id number] [place] [address] Jun, [facility] [place] [facility] [address] [id number] [place] [address] Jun, [facility] [place] [facility] [address] [id number] [place] [address] Jun, [facility] [place] [facility] [address] [id number] [place] [address] Jun, [facility] [place] [facility] [address] [id number] [place] [address] Jun, [facility] [place] [facility] [address] [id number] [place] [address] May, [facility] [place] [facility] [address] [id number] [place] [address] May, [facility] [place] [facility] [address] [id number] [place] [address] May, [facility] [place] [facility] [address] [id number] [place] [address] May, [facility] [place] [facility] [address] [id number] [place] [address] May, [facility] [place] [facility] [address] [id number] [place] [address] May, [facility] [place] [facility] [address] [id number] [place] [address] May, [facility] [place] [facility] [address] [id number] [place] [address] May, [facility] [place] [facility] [address] [id number] [place] [address] May, [facility] [place] [facility] [address] [id number] [place] [address] Apr, [facility] [place] [facility] [address] [id number] [place] [address] Apr, [facility] [place] [facility] [address] [id number] [place] [address] Apr, [facility] [place] [facility] [address] [id number] [place] [address] Apr, [facility] [place] [facility] [address] [id number] [place] [address] Mar, [facility] [place] [facility] [address] [id number] [place] [address] Mar, [facility] [place] [facility] [address] [id number] [place] [address] Mar, [facility] [place] [facility] [address] [id number] [place] [address] Mar, [facility] [place] [facility] [address] [id number] [place] [address] Feb, [facility] [place] [facility] [address] [id number] [place] [address] Feb, [facility] [place] [facility] [address] [id number] [place] [address] Jan, [facility] [place] [facility] [address] [id number] [place] [address] Jan, [facility] [place] [facility] [address] [id number] [place] [address] Jan, [facility] [place] [facility] [address] [id number] [place] [address] Jan, [facility] [place] [facility] [address] [id number] [place] [address] Jan, [facility] [place] [facility] [address] [id number] [place] [address] Jan, [facility] [place] [facility] [address] [id number] [place] [address] Jan, [facility] [place] [facility] [address] [id number] [place] [address] Jan, [facility] [place] [facility] [address] [id number] [place] [address] Jan, [facility] [place] [facility] [address] [id number] [place] [address] Jan, [facility] [place] [facility] [address] [id number] [place] [address] Jan, [facility] [place] [facility] [address] [id number] [place] [address] Jan, [facility] [place] [facility] [address] [id number] [place] [address] Jan, [facility] [place] [facility] [address] [id number] [place] [address] December, [facility] [place] [facility] [address] [id number] [place] [address] December, [facility] [place] [facility] [address] [id number] [place] [address] December, [facility] [place] [facility] [address] [id number] [place] [address] December, [facility] [place] [facility] [address] [id number] [place] [address] December, [facility] [place] [facility] [address] [id number] [place] [address] Nov, [facility] [place] [facility] [address] [id number] [place] [address] Nov, [facility] [place] [facility] [address] [id number] [place] [address] Nov, [facility] [place] [facility] [address] [id number] [place] [address] Nov, [facility] [place] [facility] [address] [id number] [place] [address] Nov, [facility] [place] [facility] [address] [id number] [place] [address] Nov, [facility] [place] [facility] [address] [id number] [place] [address] Nov, [facility] [place] [facility] [address] [id number] [place] [address] Nov, [facility] [place] [facility] [address] [id number] [place] [address] Nov, [facility] [place] [facility] [address] [id number] [place] [address] Nov, [facility] [place] [facility] [address] [id number] [place] [address] Jun, [facility] [place] [facility] [address] [id number] [place] [address] Jun, [facility] [place] [facility] [address] [id number] [place] [address] May, [facility] [place] [facility] [address] [id number] [place] [address] May, [facility] [place] [facility] [address] [id number] [place] [address] May, [facility] [place] [facility] [address] [id number] [place] [address] May, [facility] [place] [facility] [address] [id number] [place] [address] May, [facility] [place] [facility] [address] [id number] [address] May, [facility] [place] [facility] [address] [id number] [place] [address] May, [facility] [place] [facility] [address] [id number] [place] [address] May, [facility] [place] [facility] [address] [id number] [place] [address] May, [facility] [place] [facility] [address] [id number] [place] [address] Apr, [facility] [place] [facility] [address] [id number] [place] [address] 25 Apr, 2011 [facility] [address] [id number] [place] [address] 25 Apr, 2011 [facility] [address] [id number] [place] [address] 21 Apr, 2011 [facility] [address] [id number] [place] [address] 20 Apr, 2011 [facility] [address] [id number] [place] [address] 19 Apr, 2011 [facility] [address] [id number] [place] [address] 05 Apr, 2012 [facility] [address] [id number] [place] [address] 04 Apr, 2012 [facility] [address] [id number] [place] [address] 28 Mar, 2012 [facility] [address] [id number] [place] [address] Mar, [facility] [address] [id number] [place] [address] 16 Mar, 2012 [facility] [address] [id number] [place] [address] 14 Mar, 2012 [facility] [address] [id number] [place] [address] Mar, [facility] [address] [place] [id number] Mar, [facility] [address] [id number] [place] [address] Mar, [facility] [address] [id number] [place] [address] Feb, [facility] [address] [id number] [place] [address] Feb, [facility] [place] [facility] [address] [id number] [place] [address] 16 Feb, 2012 [facility] [place] [facility] [address] [id number] [place] [address] Feb, [facility] [place] [facility] [address] [id number] [place] [address] Feb, [facility] [place] [facility] [address] [id number] [place] [address] Feb, [facility] [place] [facility] [address] [id number] [place] [address] Jan, [facility] [place] [facility] [address] [id number] [place] [address] Jan, [facility] [place] [facility] [address] [id number] [place] [address] Jan, [facility] [place] [facility] [address] [id number] [place] [address] Jan, [facility] [place] [facility] [address] [id number] [place] [address] Jan, [facility] [place] [facility] [address] [id number] [place] [address] Jan, [facility] [place] [facility] [address] [id number] [place] [address] Jan, [facility] [place] [facility] [address] [id number] [place] [address] December, [facility] [place] [facility] [address] [id number] [place] [address] December, [facility] [place] [facility] [address] [id number] [place] [address] December, [facility] [place] [facility] [address] [id number] [place] [address] Nov, [facility] [place] [facility] [address] [id number] [place] [address] Nov, [facility] [place] [facility] [address] [id number] [place] [address] Nov, [facility] [place] [facility] [address] [id number] [place] [address] Nov, [facility] [place] [facility] [address] [id number] [place] [address] Nov, [facility] [place] [facility] [address] [id number] [place] [address] 18 Nov, 2011 [facility] [place] [facility] [address] [id number] [place] [address] 17 Nov, 2011 [facility] [place] [facility] [address] [id number] [place] [address] Nov, [facility] [place] [facility] [address] [id number] [place] [address] Oct, [facility] [place] [facility] [address] [id number] [place] [address] Oct, [facility] [place] [facility] [address] [id number] [place] [address] Oct, [facility] [place] [facility] [address] [id number] [place] [address] Oct, [facility] [place] [facility] [address] [id number] [place] [address] Sep, [facility] [place] [facility] [address] [id number] [place] [address] Sep, [facility] [place] [facility] [address] [id number] [place] [address] Sep, [facility] [place] [facility] [address] [id number] [place] [address] Aug, [facility] [place] [facility] [address] [id number] [place] [address] Aug, [facility] [place] [facility] [address] [id number] [place] [address] Aug, [facility] [address] [id number] [place] [address] Aug, [facility] [address] [id number] [place] [address] 15 Jul, 2011 [facility] [address] [id number] [place] [address] 15 Jul, 2011 [facility] [place] [facility] [address] [id number] [place] [address] 15 Jul, 2011 [facility] [address] [id number] [place] [address], [place] [address] 30 Jun, 2011 [facility] [address] [id number] [place] [address] Jun, [facility] [address] [id number] [place] [address] 15 Jun, 2011 [facility] [address] [id number] [place] [address] 14 Jun, 2011 [facility] [place] [facility] [address] [id number] [place] [address] 14 Jun, 2011 [facility] [address] [id number] [place] [address] 14 Jun, 2011 [facility] [place] [facility] [address] [id number] [place] [address] May, [facility] [place] [facility] [address] [id number] [place] [address] May, [facility] [place] [facility] [address] [id number] [place] [address] 28 May, 2011 [facility] [place] [facility] [address] [id number] [place] [address] Apr, [facility] [place] [facility] [address] [id number] [place] [address] Mar, [facility] [address] [facility] [id number] [place] [address] Aug, IMMUNIZATIONS No Known Immunizations SOCIAL HISTORY Never Assessed REASON FOR VISIT PLAN OF CARE VITAL SIGNS MEDICATIONS Unknown Medications RESULTS No Results PROCEDURES No Known procedures INSTRUCTIONS MEDICATIONS ADMINISTERED No Known Medications MEDICAL (GENERAL) HISTORY Type Description Date Medical History type II diabetes-dx in 1995 Medical History stroke-12/2011-[facility] Medical History cardiovascular disorder-CAD Medical History hyperlipidemia Medical History hypertension Medical History Diabetes with renal manifestations, type II or unspecified type, uncontrolled Medical History 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 Discharged 06/27/17 06/25/17
--- OUTSIDE RECORDS SUMMARY | 2019-03-03 10:53 | XMS REPORT ---
Author Author ALBIN RENAE Organization [facility] Address [address] [place] [address] Care Team Providers Care Real Estate Closing Coordinator Name Role Phone ALBIN RENAE Unavailable PROBLEMS Type Condition ICD9-CM Code ITN78-XH Code Onset Dates Condition Status SNOMED Code Problem Dyspepsia R10.13 Active 153152639 Problem alf 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 Active 468440729 Problem Essential hypertension I10 Active 05613764 Problem Chronic pain G89.29 Active 96671599 Problem Skin infection L08.9 Active 820219367 Problem Allergic rhinitis J30.9 Active 01719001 Problem Non-healing skin lesion L98.9 Active 12045884 Problem Type 2 diabetes mellitus with other skin ulcer E11.622 Active 42508711 Problem Cough R05 Active 752062632 Problem Ulcer of right lower leg, with unspecified severity L97.919 Active 959935558 Problem Left ventricular enlargement I51.7 Active 810384902 Problem Type 2 diabetes mellitus with other circulatory complications E11.59 Active 38144459 Problem Foot swelling M79.89 Active 970526988 Problem CAD (coronary artery disease) I25.10 Active 19361545 Problem Urinary incontinence R32 Active 194032863 Problem Stress incontinence in female N39.3 Active 71968529 Problem Diabetic polyneuropathy associated with type 2 diabetes mellitus E11.42 Active 21910960 Problem Anxiety F41.9 Active 43899922 Problem Atrial enlargement, left I51.7 Active 40957149252297 Problem Pulmonary HTN I27.2 Active 85531743 Problem Neuropathy G62.9 Active 206986743 Problem Mixed hyperlipidemia E78.2 Active 185561839 ALLERGIES No Information ENCOUNTERS Encounter Location Date Diagnosis [address] [address] Feb, Wheezing R06.2 and Cough R05 [address] [address] Jan, Diabetic polyneuropathy associated with type 2 diabetes mellitus E11.42 [facility] [address] [address] Jan, [facility] [place] [address] [address] Jan, Wheezing R06.2 and Cough R05 [facility] [place] [address] [address] Jan, Cough R05 ; Bronchitis J40 ; Wheezing R06.2 ; Unspecified superficial injury of left lesser toe(s), subsequent encounter S90.935D and Type 2 diabetes mellitus with other circulatory complications E11.59 [facility] [place] [address] [address] Jan, [facility] [place] [address] [address] December, [facility] [place] [address] [address] December, [facility] [place] [address] [address] December, Encounter for removal of sutures Z48.02 [facility] [place] [address] [address] December, Diabetic polyneuropathy associated with type 2 diabetes mellitus E11.42 [facility] [place] [address] [address] December, [facility] [place] [address] [address] December, Infection of toe L08.9 [facility] [place] [address] [address] December, [facility] [address] [facility] [id number] [address] December, Diabetic polyneuropathy associated with type 2 diabetes mellitus E11.42 ; alf 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 ; Urinary incontinence R32 and Type 2 diabetes mellitus with other circulatory complications E11.59 [facility] [address] [facility] [id number] [place] [address] December, Essential hypertension I10 ; Type 2 diabetes mellitus with other circulatory complications E11.59 and Dizziness R42 [place] [address] [address] December, Dizziness R42 ; Essential hypertension I10 and Type 2 diabetes mellitus with other circulatory complications E11.[address] [address] Nov, Breast lump N63.[address] [address] Nov, Breast lump N63.[address] [address] Nov, Breast lump N63.[address] [address] Nov, [address] [address] Nov, Mixed hyperlipidemia E78.2 ; 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 [address] Nov, Essential hypertension I10 ; Breast cancer screening Z12.31 ; 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 ; Mixed hyperlipidemia E78.2 ; Dysuria R30.0 and Type 2 diabetes mellitus with other circulatory complications E11.59 [place] [address] [address] May, [place] [address] [address] Apr, [place] [address] [address] Apr, Essential hypertension I10 and Diabetic polyneuropathy associated with type 2 diabetes mellitus E11.42 [place] [address] [address] Mar, [place] [address] [address] Feb, Onychomycosis B35.1 ; Neuropathy G62.9 and Diabetic polyneuropathy associated with type 2 diabetes mellitus E11.42 [place] [address] [address] Feb, [facility] [address] [place] [id number] [place] [address] December, [place] [address] [place] [id number] [place] [address] December, Herpes zoster without complication B02.9 ; Onychia of toe of left foot L03.032 ; Ingrowing toenail with infection L60.0 and Diabetic polyneuropathy associated with type 2 diabetes mellitus E11.42 [place] [address] [place] [id number] [place] [address] December, [place] [id number] [place] [address] Nov, [place] [address] [place] [id number] [place] [address] Oct, Diabetic polyneuropathy associated with type 2 diabetes mellitus E11.42 [place] [address] [place] [address] Oct, Essential hypertension I10 and Diabetic polyneuropathy associated with type 2 diabetes mellitus E11.42 [place] [address] [address] Sep, Diabetic polyneuropathy associated with type 2 diabetes mellitus E11.42 ; Type 2 diabetes mellitus with other skin ulcer E11.622 ; Chronic pain G89.29 ; Anxiety F41.9 ; Essential hypertension I10 ; Hypoxia R09.02 ; Atrial enlargement, left I51.7 and Left ventricular enlargement I51.7 [place] [address] [address] Sep, [place] [address] [address] Aug, [place] [address] [place] [id number] [address] Jul, [facility] [address] [place] [address] Jul, [facility] [address] [place] [address] Jul, CAD (coronary artery disease) I25.10 ; Essential hypertension I10 ; Pulmonary HTN I27.2 ; Atrial enlargement, left I51.7 and Left ventricular enlargement I51.7 [place] [address] [address] Jun, [place] [address] [place] [id number] [place] [address] Jun, [place] [address] [place] [id number] [place] [address] Jun, [place] [address] [place] [id number] [place] [address] Jun, [facility] [address] [address] Jun, Diabetic polyneuropathy associated with type 2 diabetes mellitus E11.42 ; Type 2 diabetes mellitus with other skin ulcer E11.622 ; Chronic pain G89.29 ; Anxiety F41.9 ; Essential hypertension I10 ; Ulcer of right lower leg, with unspecified severity L97.919 ; Pulmonary HTN I27.2 ; Hypoxia R09.02 ; Atrial enlargement, left I51.7 and Left ventricular enlargement I51.7 [place] [address] [address] May, [facility] [address] [place] [address] Apr, Diabetic polyneuropathy associated with type 2 diabetes mellitus E11.42 ; Type 2 diabetes mellitus with other skin ulcer E11.622 ; Chronic pain G89.29 ; Anxiety F41.9 ; Cough R05 ; Essential hypertension I10 and Ulcer of right lower leg, with unspecified severity L97.919 [facility] [address] [place] [id number] [place] [address] 11 Mar, 2016 Diabetic polyneuropathy associated with type 2 diabetes mellitus E11.42 ; Chronic pain G89.29 ; Anxiety F41.9 ; Type 2 diabetes mellitus with other skin ulcer E11.622 ; Cough R05 ; Essential hypertension I10 and Ulcer of right lower leg, with unspecified severity L97.919 [facility] [address] [place] [id number] [place] [address] 20 Feb, 2016 [place] [address] [place] [id number] [place] [address] 14 Feb, 2016 Diabetic polyneuropathy associated with type 2 diabetes mellitus E11.42 ; Chronic pain G89.29 ; Anxiety F41.9 ; Type 2 diabetes mellitus with other skin ulcer E11.622 ; Cough R05 and Essential hypertension I10 [place] [address] [place] [id number] [place] [address] 16 Jan, 2016 Chronic pain G89.29 ; Anxiety F41.9 and Foot swelling M79.89 [place] [address] [place] [id number] [place] [address] December, Chronic pain G89.29 ; Anxiety F41.9 and Stress incontinence in female N39.3 [place] [address] [place] [id number] [place] [address] December, [facility] [address] [id number] [place] [address] Nov, [place] [address] [id number] [place] [address] Nov, [facility] [address] [address] [id number] [place] [address] Nov, [facility] [address] [address] [id number] [place] [address] Nov, Chronic pain G89.29 ; Anxiety F41.9 ; Non-healing skin lesion L98.9 and Type 2 diabetes mellitus with other skin ulcer E11.622 [facility] [address] [address] Nov, Diabetic polyneuropathy associated with type 2 diabetes mellitus E11.42 [facility] [address] [id number] [place] [address] Nov, [place] [address] [id number] [place] [address] Nov, [facility] [address] [address] [id number] [place] [address] Nov, [place] [address] [id number] [place] [address] Nov, [place] [address] [place] [id number] [place] [address] Nov, Diabetic polyneuropathy associated with type 2 diabetes mellitus E11.42 [place] [address] [place] [id number] [place] [address] Oct, Diabetic polyneuropathy associated with type 2 diabetes mellitus E11.42 ; Essential hypertension I10 ; Chronic pain G89.29 ; Anxiety F41.9 and Skin infection L08.9 [place] [address] [place] [address] Oct, [place] [address] [place] [id number] [place] [address] Sep, [place] [address] [place] [id number] [place] [address] Sep, Diabetic polyneuropathy associated with type 2 diabetes mellitus E11.42 ; Chronic pain G89.29 ; Anxiety F41.9 and Allergic rhinitis J30.9 [place] [address] [place] [address] Aug, Diabetic polyneuropathy associated with type 2 diabetes mellitus E11.42 ; Chronic pain G89.29 ; Anxiety F41.9 and Allergic rhinitis J30.9 [place] [address] [place] [id number] [place] [address] Jul, [place] [address] [address] Jul, Diabetic polyneuropathy associated with type 2 diabetes mellitus E11.42 ; Dyspepsia R10.13 ; Essential hypertension I10 ; alf 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 ; CAD (coronary artery disease) I25.10 ; Chronic pain G89.29 ; Anxiety F41.9 ; Dysuria R30.0 and Pain of left lower leg M79.662 [place] [address] [address] Jul, [place] [address] [address] Jun, Diabetic polyneuropathy associated with type 2 diabetes mellitus E11.42 and alf 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 [place] [address] [address] Jun, [place] [address] [address] Jun, Neuropathy G62.9 ; Arthritis M19.90 ; Leg cramps R25.2 and Anxiety F41.9 [place] [address] [place] [id number] [place] [address] May, [place] [address] [place] [id number] [place] [address] May, [place] [address] [place] [id number] [place] [address] May, Diabetic polyneuropathy associated with type 2 diabetes mellitus E11.42 [place] [address] [address] May, [place] [address] [place] [id number] [place] [address] Apr, [place] [address] [place] [address] [address] Apr, [facility] [address] [place] [address] Apr, [facility] [address] [place] [address] 14 Apr, 2015 [facility] [address] [place] [address] Apr, [facility] [address] [place] [id number] [place] [address] Apr, [facility] [address] [place] [id number] [place] [address] Apr, Diabetes with renal manifestations, type II or unspecified type, uncontrolled 250.42 ; Coronary atherosclerosis of unspecified type of vessel, [place] or graft 414.00 ; Polyneuropathy in diabetes 357.2 ; Hypertension 401.9 ; Anxiety 300.00 ; GERD (gastroesophageal reflux disease) 530.81 and Type 2 diabetes mellitus with pressure callus 250.80 [facility] [address] [address] Mar, [facility] [address] [place] [id number] [place] [address] Mar, [facility] [address] [address] Mar, [facility] [address] [place] [address] Mar, [facility] [address] [place] [address] Mar, Diabetes with renal manifestations, type II or unspecified type, uncontrolled 250.42 ; Coronary atherosclerosis of unspecified type of vessel, [place] or graft 414.00 ; Polyneuropathy in diabetes 357.2 ; Hypertension 401.9 and Anxiety 300.00 [facility] [address] [place] [address] Mar, Routine gynecological examination V72.31 ; Breast cancer screening V76.10 ; Recurrent urinary tract infection 599.0 ; Mastodynia 611.71 and Tobacco abuse 305.1 [facility] [address] [address] Feb, [facility] [address] [id number] [address] Jan, [facility] [address] [place] [id number] [place] [address] Jan, [facility] [address] [facility] [id number] [address] Jan, [facility] [address] [address] Jan, [facility] [address] [address] December, [facility] [address] [place] [address] December, [facility] [address] [address] Nov, [facility] [address] [address] Nov, [facility] [address] [address] Nov, [facility] [address] [address] Oct, [facility] [address] [id number] [address] Oct, [facility] [address] [address] Oct, [facility] [address] [id number] [address] Oct, [facility] [address] [address] Oct, [facility] [place] [facility] [address] [id number] [place] [address] Oct, [facility] [place] [facility] [address] [id number] [place] [address] Oct, [facility] [place] [facility] [address] [id number] [place] [address] Oct, [facility] [place] [facility] [address] [id number] [place] [address] Oct, [facility] [place] [facility] [address] [id number] [place] [address] Oct, [facility] [place] [facility] [address] [id number] [place] [address] Oct, [facility] [place] [facility] [address] [id number] [place] [address] Oct, [facility] [place] [facility] [address] [id number] [place] [address] Oct, [facility] [place] [facility] [address] [id number] [place] [address] Oct, [facility] [place] [facility] [address] [id number] [place] [address] Oct, [facility] [place] [facility] [address] [id number] [place] [address] Oct, [facility] [place] [facility] [address] [id number] [place] [address] Oct, [facility] [place] [facility] [address] [id number] [place] [address] Oct, [facility] [place] [facility] [address] [id number] [place] [address] Sep, [facility] [place] [facility] [address] [id number] [place] [address] Sep, [facility] [place] [facility] [address] [id number] [place] [address] Sep, 2014 [facility] [place] [facility] [address] [id number] [place] [address] Sep, 2014 [facility] [place] [facility] [address] [id number] [place] [address] Sep, 2014 [facility] [place] [facility] [address] [id number] [place] [address] Sep, 2014 [facility] [place] [facility] [address] [id number] [place] [address] Sep, 2014 [facility] [place] [facility] [address] [id number] [place] [address] Sep, 2014 [facility] [place] [facility] [address] [facility] [id number] [place] [address] Sep, 2014 [facility] [place] [facility] [address] [facility] [id number] [place] [address] Sep, 2014 [facility] [place] [facility] [address] [facility] [id number] [place] [address] Sep, 2014 [facility] [place] [facility] [address] [facility] [id number] [place] [address] Sep, 2014 [facility] [place] [facility] [address] [facility] [id number] [place] [address] Sep, 2014 [facility] [place] [facility] [address] [facility] [id number] [place] [address] Sep, 2014 [facility] [place] [facility] [address] [facility] [id number] [place] [address] Sep, 2014 [facility] [place] [facility] [address] [facility] [id number] [place] [address] Aug, [facility] [place] [facility] [address] [facility] [id number] [place] [address] Aug, [facility] [place] [facility] [address] [id number] [place] [address] Aug, [facility] [place] [facility] [address] [id number] [place] [address] Aug, [facility] [place] [facility] [address] [id number] [place] [address] Aug, [facility] [place] [facility] [address] [id number] [place] [address] Aug, [facility] [place] [facility] [address] [id number] [place] [address] Aug, [facility] [place] [facility] [address] [id number] [place] [address] Aug, [facility] [place] [facility] [address] [id number] [place] [address] Aug, [facility] [place] [facility] [address] [id number] [place] [address] Aug, [facility] [place] [facility] [address] [id number] [place] [address] Aug, [facility] [place] [facility] [address] [id number] [place] [address] Aug, [facility] [place] [facility] [address] [id number] [place] [address] Aug, [facility] [place] [facility] [address] [id number] [place] [address] Jul, [facility] [place] [facility] [address] [id number] [place] [address] Jul, [facility] [place] [facility] [address] [id number] [place] [address] 30 Jul, 2014 [facility] [place] [facility] [address] [id number] [place] [address] 30 Jul, 2014 [facility] [place] [facility] [address] [id number] [place] [address] Jul, [facility] [place] [facility] [address] [id number] [place] [address] Jul, [facility] [place] [facility] [address] [id number] [place] [address] Jul, [facility] [place] [facility] [address] [id number] [place] [address] Jul, [facility] [place] [facility] [address] [id number] [place] [address] Jun, [facility] [place] [facility] [address] [id number] [place] [address] Jun, [facility] [place] [facility] [address] [id number] [place] [address] Jun, [facility] [place] [facility] [address] [id number] [place] [address] Jun, [facility] [place] [facility] [address] [id number] [place] [address] Jun, [facility] [place] [facility] [address] [id number] [place] [address] Jun, [facility] [place] [facility] [address] [id number] [place] [address] Jun, [facility] [place] [facility] [address] [id number] [place] [address] Jun, [facility] [place] [facility] [address] [id number] [place] [address] Jun, [facility] [place] [facility] [address] [id number] [place] [address] Jun, [facility] [place] [facility] [address] [id number] [place] [address] Jun, [facility] [place] [facility] [address] [id number] [place] [address] Jun, [facility] [place] [facility] [address] [id number] [place] [address] Jun, [facility] [place] [facility] [address] [id number] [place] [address] Jun, [facility] [place] [facility] [address] [id number] [place] [address] Jun, [facility] [place] [facility] [address] [id number] [place] [address] Jun, [facility] [place] [facility] [address] [id number] [place] [address] May, [facility] [place] [facility] [address] [id number] [place] [address] May, [facility] [place] [facility] [address] [id number] [place] [address] May, [facility] [place] [facility] [address] [id number] [place] [address] May, [facility] [place] [facility] [address] [id number] [place] [address] May, [facility] [place] [facility] [address] [id number] [place] [address] May, [facility] [place] [facility] [address] [id number] [place] [address] May, [facility] [place] [facility] [address] [id number] [place] [address] May, [facility] [place] [facility] [address] [id number] [place] [address] May, [facility] [place] [facility] [address] [id number] [place] [address] Apr, [facility] [place] [facility] [address] [id number] [place] [address] Apr, [facility] [place] [facility] [address] [id number] [place] [address] Apr, [facility] [place] [facility] [address] [id number] [place] [address] Apr, [facility] [place] [facility] [address] [id number] [place] [address] Mar, [facility] [place] [facility] [address] [id number] [place] [address] Mar, [facility] [place] [facility] [address] [id number] [place] [address] Mar, [facility] [place] [facility] [address] [id number] [place] [address] Mar, [facility] [place] [facility] [address] [id number] [place] [address] Feb, [facility] [place] [facility] [address] [id number] [place] [address] Feb, [facility] [facility] [address] [id number] [place] [address] Jan, [facility] [place] [facility] [address] [id number] [place] [address] Jan, [facility] [place] [facility] [address] [id number] [place] [address] Jan, [facility] [place] [facility] [address] [id number] [place] [address] Jan, [facility] [place] [facility] [address] [id number] [place] [address] Jan, [facility] [place] [facility] [address] [id number] [place] [address] Jan, [facility] [place] [facility] [address] [id number] [place] [address] Jan, [facility] [place] [facility] [address] [id number] [place] [address] Jan, [facility] [place] [facility] [address] [id number] [place] [address] Jan, [facility] [place] [facility] [address] [id number] [place] [address] Jan, [facility] [place] [facility] [address] [id number] [place] [address] Jan, [facility] [place] [facility] [address] [id number] [place] [address] Jan, [facility] [place] [facility] [address] [id number] [place] [address] Jan, [facility] [place] [facility] [address] [id number] [place] [address] December, [facility] [place] [facility] [address] [id number] [place] [address] December, [facility] [place] [facility] [address] [id number] [place] [address] December, [facility] [place] [facility] [address] [id number] [place] [address] December, [facility] [place] [facility] [address] [id number] [place] [address] December, [facility] [place] [facility] [address] [id number] [place] [address] Nov, [facility] [place] [facility] [address] [id number] [place] [address] Nov, [facility] [place] [facility] [address] [id number] [place] [address] Nov, [facility] [place] [facility] [address] [id number] [place] [address] Nov, [facility] [address] [id number] [place] [address] Nov, [facility] [place] [facility] [address] [id number] [place] [address] Nov, [facility] [place] [facility] [address] [id number] [place] [address] Nov, [facility] [place] [facility] [address] [id number] [place] [address] Nov, [facility] [address] [facility] [id number] [place] [address] Nov, [facility] [facility] [address] [facility] [id number] [place] [address] Nov, [facility] [place] [facility] [address] [id number] [place] [address] Jun, [facility] [facility] [address] [facility] [id number] [place] [address], [place] [address] Jun, [facility] [address] [facility] [id number] [place] [address] May, [facility] [address] [facility] [id number] [place] [address] May, [facility] [address] [facility] [id number] [place] [address] May, [facility] [address] [facility] [id number] [place] [address] May, [facility] [facility] [address] [facility] [id number] [place] [address] May, [facility] [address] [facility] [id number] [place] [address] May, [facility] [address] [facility] [id number] [place] [address] May, [facility] [address] [facility] [id number] [place] [address] May, [facility] [address] [facility] [id number] [place] [address] May, [facility] [address] [facility] [id number] [place] [address] Apr, [facility] [address] [id number] [place] [address] 25 Apr, 2011 [facility] [address] [id number] [place] [address] 25 Apr, 2011 [facility] [address] [id number] [place] [address] 21 Apr, 2011 [facility] [address] [id number] [place] [address] 20 Apr, 2011 [facility] [address] [id number] [place] [address] 19 Apr, 2011 [facility] [address] [id number] [place] [address] 05 Apr, 2011 [facility] [address] [id number] [place] [address] 04 Apr, 2012 [facility] [address] [id number] [place] [address] 28 Mar, 2012 [facility] [address] [id number] [place] [address] Mar, [facility] [address] [id number] [place] [address] 16 Mar, 2012 [facility] [address] [id number] [place] [address] Mar, [facility] [address] [id number] [place] [address] Mar, [facility] [address] [place] [id number] Mar, [facility] [address] [id number] [place] [address] Mar, [facility] [address] [id number] [place] [address] Feb, [facility] [address] [id number] [place] [address] Feb, [facility] [address] [id number] [place] [address] 16 Feb, 2012 [facility] [address] [id number] [place] [address] Feb, [facility] [address] [id number] [place] [address] Feb, [facility] [address] [id number] [place] [address] Feb, [facility] [address] [id number] [place] [address] Jan, [facility] [address] [id number] [place] [address] Jan, [facility] [address] [id number] [place] [address] Jan, [facility] [address] [id number] [place] [address] Jan, [facility] [address] [id number] [place] [address] Jan, [facility] [address] [id number] [place] [address] Jan, [facility] [address] [id number] [place] [address] Jan, [facility] [address] [id number] [place] [address] December, [facility] [address] [id number] [place] [address] December, [facility] [address] [id number] [place] [address] December, [facility] [address] [id number] [place] [address] Nov, [facility] [address] [id number] [place] [address] Nov, [facility] [address] [id number] [place] [address] Nov, [facility] [address] [id number] [place] [address] Nov, [facility] [address] [id number] [place] [address] Nov, [facility] [address] [id number] [place] [address] Nov, [facility] [address] [id number] [place] [address] Nov, [facility] [address] [id number] [place] [address] Nov, [facility] [address] [id number] [place] [address] Oct, [facility] [address] [id number] [place] [address] Oct, [facility] [address] [id number] [place] [address] Oct, [facility] [address] [id number] [place] [address] Oct, [facility] [address] [id number] [place] [address] Sep, [facility] [address] [id number] [place] [address] Sep, [facility] [address] [id number] [place] [address] Sep, [facility] [address] [id number] [place] [address] Aug, [facility] [address] [id number] [place] [address] Aug, [facility] [address] [id number] [place] [address] Aug, [facility] [address] [id number] [place] [address] Aug, [facility] [address] [id number] [place] [address] 15 Jul, 2011 [facility] [address] [id number] [place] [address] 15 Jul, 2011 [facility] [address] [id number] [place] [address] 15 Jul, 2011 [facility] [address] [id number] [place] [address] 30 Jun, 2011 [facility] [address] [id number] [place] [address] 22 Jun, 2011 [facility] [address] [id number] [place] [address] 15 Jun, 2011 [facility] [address] [id number] [place] [address] 14 Jun, 2011 [facility] [address] [id number] [place] [address] 14 Jun, 2011 [facility] [address] [id number] [place] [address] 14 Jun, 2011 [facility] [address] [id number] [place] [address] 31 May, 2011 [facility] [address] [id number] [place] [address] 31 May, 2011 [facility] [address] [id number] [place] [address] 28 May, 2011 [facility] [address] [id number] [place] [address] Apr, [facility] [facility] [address] [id number] [place] [address] Mar, [facility] [address] [facility] [id number] [place] [address] Aug, IMMUNIZATIONS No Known Immunizations SOCIAL HISTORY Never Assessed REASON FOR VISIT PLAN OF CARE VITAL SIGNS Height 68 in 2014-10-28 Weight 240.2 lbs 2014-10-28 Temperature 98.6 degrees Fahrenheit 2014-10-28 Heart Rate 108 bpm 2014-10-28 Respiratory Rate 20 2014-10-28 Blood pressure systolic 168 mmHg 2014-10-28 Blood pressure diastolic 88 mmHg 2014-10-28 MEDICATIONS Unknown Medications RESULTS No Results PROCEDURES Procedure Date Ordered Result Body Site GLUCOSE BLOOD TEST October 28, 2014 INSTRUCTIONS MEDICATIONS ADMINISTERED No Known Medications MEDICAL (GENERAL) HISTORY Type Description Date Medical History type II diabetes-dx in 1995 Medical History stroke-12/2011-[place] Medical History cardiovascular disorder-CAD Medical History hyperlipidemia Medical History hypertension Medical History Diabetes with renal manifestations, type II or unspecified type, uncontrolled Medical History 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 Discharged 06/27/17 06/25/17
--- OUTSIDE RECORDS SUMMARY | 2019-03-03 10:53 | XMS REPORT ---
Author Author [facility]OC[facility] Address [address] [place] [address] Care Team Providers Care Reading Professor Name Role Phone C[facility] Unavailable PROBLEMS Type Condition ICD9-CM Code YQF04-LT Code Onset Dates Condition Status SNOMED Code Problem Dyspepsia R10.13 Active 158902991 Problem FPC 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 Active 828657316 Problem Essential hypertension I10 Active 02880642 Problem Chronic pain G89.29 Active 87532437 Problem Skin infection L08.9 Active 704049677 Problem Allergic rhinitis J30.9 Active 03349805 Problem Non-healing skin lesion L98.9 Active 37870316 Problem Type 2 diabetes mellitus with other skin ulcer E11.622 Active 73625204 Problem Cough R05 Active 991519228 Problem Ulcer of right lower leg, with unspecified severity L97.919 Active 618556704 Problem Left ventricular enlargement I51.7 Active 501006416 Problem Type 2 diabetes mellitus with other circulatory complications E11.59 Active 54595468 Problem Foot swelling M79.89 Active 269161145 Problem CAD (coronary artery disease) I25.10 Active 41930169 Problem Urinary incontinence R32 Active 032185807 Problem Stress incontinence in female N39.3 Active 41381512 Problem Diabetic polyneuropathy associated with type 2 diabetes mellitus E11.42 Active 69847832 Problem Anxiety F41.9 Active 18713789 Problem Atrial enlargement, left I51.7 Active 10300932249508 Problem Pulmonary HTN I27.2 Active 33118191 Problem Neuropathy G62.9 Active 693146220 Problem Mixed hyperlipidemia E78.2 Active 488067486 ALLERGIES No Information ENCOUNTERS Encounter Location Date Diagnosis [address] [address] Feb, Wheezing R06.2 and Cough R05 [address] [address] Jan, Diabetic polyneuropathy associated with type 2 diabetes mellitus E11.42 [facility] [place] [address] [address] Jan, [facility] [address] [address] Jan, Wheezing R06.2 and Cough R05 [facility] [address] [address] Jan, Cough R05 ; Bronchitis J40 ; Wheezing R06.2 ; Unspecified superficial injury of left lesser toe(s), subsequent encounter S90.935D and Type 2 diabetes mellitus with other circulatory complications E11.59 [facility] [place] [address] [address] Jan, [facility] [place] [address] [address] December, [facility] [place] [address] [address] December, [address] [address] December, Encounter for removal of sutures Z48.02 [facility] [place] [address] [address] December, Diabetic polyneuropathy associated with type 2 diabetes mellitus E11.42 [facility] [address] [address] December, [address] [address] December, Infection of toe L08.9 [facility] [place] [address] [address] December, [facility] [address] [facility] [id number], [place] [address] December, Diabetic polyneuropathy associated with type 2 diabetes mellitus E11.42 ; FPC 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 ; Urinary incontinence R32 and Type 2 diabetes mellitus with other circulatory complications E11.59 [facility] [address] [facility] [id number], [place] [address] December, Essential hypertension I10 ; Type 2 diabetes mellitus with other circulatory complications E11.59 and Dizziness R42 [place] [address], [place] [address] December, Dizziness R42 ; Essential hypertension I10 and Type 2 diabetes mellitus with other circulatory complications E11.[address] [address] Nov, Breast lump N63.[address] [address] Nov, Breast lump N63.[address] [address] Nov, Breast lump N63.[address] [address] Nov, [address] [address] Nov, Mixed hyperlipidemia E78.2 ; Essential hypertension I10 and terminal carman 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 [address] Nov, Essential hypertension I10 ; Breast cancer screening Z12.31 ; FPC 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 ; Mixed hyperlipidemia E78.2 ; Dysuria R30.0 and Type 2 diabetes mellitus with other circulatory complications E11.59 [place] [address], [place] [address] May, [place] [address], [place] [address] Apr, [place] [address], [place] [address] Apr, Essential hypertension I10 and Diabetic polyneuropathy associated with type 2 diabetes mellitus E11.42 [place] [address], [place] [address] Mar, [place] [address], [place] [address] Feb, Onychomycosis B35.1 ; Neuropathy G62.9 and Diabetic polyneuropathy associated with type 2 diabetes mellitus E11.42 [facility] [address] [id number] [address] Feb, [facility] [address] [id number] [place] [address] December, [facility] [address] [place] [id number] [place] [address] December, Herpes zoster without complication B02.9 ; Onychia of toe of left foot L03.032 ; Ingrowing toenail with infection L60.0 and Diabetic polyneuropathy associated with type 2 diabetes mellitus E11.42 [place] [address] [place] [id number] [place] [address] December, [place] [address] [place] [id number] [place] [address] Nov, [facility] [id number] [place] [address] Oct, Diabetic polyneuropathy associated with type 2 diabetes mellitus E11.42 [place] [address] [place] [address] [id number] [place] [address] Oct, Essential hypertension I10 and Diabetic polyneuropathy associated with type 2 diabetes mellitus E11.42 [place] [address] [place] [id number] [place] [address] Sep, Diabetic polyneuropathy associated with type 2 diabetes mellitus E11.42 ; Type 2 diabetes mellitus with other skin ulcer E11.622 ; Chronic pain G89.29 ; Anxiety F41.9 ; Essential hypertension I10 ; Hypoxia R09.02 ; Atrial enlargement, left I51.7 and Left ventricular enlargement I51.7 [place] [address] [place] [id number] [place] [address] Sep, [facility] [id number] [place] [address] Aug, [facility] [address] [id number], [place] [address] Jul, [facility] [address] [id number] [place] [address] Jul, [facility] [address] [place] [address] Jul, CAD (coronary artery disease) I25.10 ; Essential hypertension I10 ; Pulmonary HTN I27.2 ; Atrial enlargement, left I51.7 and Left ventricular enlargement I51.7 [facility] [address] [place] [id number] [place] [address] Jun, [facility] [address] [place] [id number] [place] [address] Jun, [facility] [address] [id number] [place] [address] Jun, [place] [address] [place] [id number] [place] [address] Jun, [facility] [address] [place] [address] Jun, Diabetic polyneuropathy associated with type 2 diabetes mellitus E11.42 ; Type 2 diabetes mellitus with other skin ulcer E11.622 ; Chronic pain G89.29 ; Anxiety F41.9 ; Essential hypertension I10 ; Ulcer of right lower leg, with unspecified severity L97.919 ; Pulmonary HTN I27.2 ; Hypoxia R09.02 ; Atrial enlargement, left I51.7 and Left ventricular enlargement I51.7 [facility] [address], [place] [address] May, [facility] [address] [place] [address] Apr, Diabetic polyneuropathy associated with type 2 diabetes mellitus E11.42 ; Type 2 diabetes mellitus with other skin ulcer E11.622 ; Chronic pain G89.29 ; Anxiety F41.9 ; Cough R05 ; Essential hypertension I10 and Ulcer of right lower leg, with unspecified severity L97.919 [place] [address] [place] [address] [id number] [place] [address] 11 Mar, 2016 Diabetic polyneuropathy associated with type 2 diabetes mellitus E11.42 ; Chronic pain G89.29 ; Anxiety F41.9 ; Type 2 diabetes mellitus with other skin ulcer E11.622 ; Cough R05 ; Essential hypertension I10 and Ulcer of right lower leg, with unspecified severity L97.919 [place] [address] [place] [address] [id number] [place] [address] 20 Feb, 2016 [place] [address] [place] [address] [id number] [place] [address] 14 Feb, 2016 Diabetic polyneuropathy associated with type 2 diabetes mellitus E11.42 ; Chronic pain G89.29 ; Anxiety F41.9 ; Type 2 diabetes mellitus with other skin ulcer E11.622 ; Cough R05 and Essential hypertension I10 [place] [address] [place] [id number] [place] [address] Jan, Chronic pain G89.29 ; Anxiety F41.9 and Foot swelling M79.89 [place] [address] [place] [address] [id number] [place] [address] December, Chronic pain G89.29 ; Anxiety F41.9 and Stress incontinence in female N39.3 [place] [address] [place] [id number] [place] [address] December, [place] [address] [place] [address] [id number] [place] [address] Nov, [place] [address] [address] [id number] [place] [address] Nov, [place] [address] [place] [address] [id number] [place] [address] Nov, [place] [address] [place] [address] [id number] [place] [address] Nov, Chronic pain G89.29 ; Anxiety F41.9 ; Non-healing skin lesion L98.9 and Type 2 diabetes mellitus with other skin ulcer E11.622 [facility] [address], [place] [address] Nov, Diabetic polyneuropathy associated with type 2 diabetes mellitus E11.42 [facility] [address], [place] [address] Nov, [facility] [address] [place] [address] Nov, [facility] [address] [place] [address] Nov, [facility] [address] [place] [address] Nov, [facility] [address] [place] [address] Nov, Diabetic polyneuropathy associated with type 2 diabetes mellitus E11.42 [place] [address] [place] [address] Oct, Diabetic polyneuropathy associated with type 2 diabetes mellitus E11.42 ; Essential hypertension I10 ; Chronic pain G89.29 ; Anxiety F41.9 and Skin infection L08.9 [place] [address], [place] [address] Oct, [facility] [address], [place] [address] Sep, [facility] [address], [place] [address] Sep, Diabetic polyneuropathy associated with type 2 diabetes mellitus E11.42 ; Chronic pain G89.29 ; Anxiety F41.9 and Allergic rhinitis J30.9 [place] [address], [place] [address] Aug, Diabetic polyneuropathy associated with type 2 diabetes mellitus E11.42 ; Chronic pain G89.29 ; Anxiety F41.9 and Allergic rhinitis J30.9 [place] [address] [place] [id number] [place] [address] Jul, [place] [address] [address] Jul, Diabetic polyneuropathy associated with type 2 diabetes mellitus E11.42 ; Dyspepsia R10.13 ; Essential hypertension I10 ; terminal carman 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 ; CAD (coronary artery disease) I25.10 ; Chronic pain G89.29 ; Anxiety F41.9 ; Dysuria R30.0 and Pain of left lower leg M79.662 [place] [address] [address] Jul, [place] [address] [address] Jun, Diabetic polyneuropathy associated with type 2 diabetes mellitus E11.42 and terminal carman 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 [place] [address] [address] Jun, [place] [address] [address] Jun, Neuropathy G62.9 ; Arthritis M19.90 ; Leg cramps R25.2 and Anxiety F41.9 [place] [address] [place] [id number] [place] [address] May, [place] [address] [place] [address] [id number] [place] [address] May, [place] [address] [place] [address] [id number] [place] [address] May, Diabetic polyneuropathy associated with type 2 diabetes mellitus E11.42 [place] [address] [address] May, [place] [address] [place] [address] [id number] [place] [address] Apr, [place] [address] [place] [address] Apr, [facility] [address] [place] [id number] [place] [address] Apr, [facility] [address] [place] [address] 14 Apr, 2015 [facility] [address] [place] [id number] [place] [address] Apr, [facility] [address] [place] [id number] [place] [address] Apr, [facility] [address] [place] [id number] [place] [address] Apr, Diabetes with renal manifestations, type II or unspecified type, uncontrolled 250.42 ; Coronary atherosclerosis of unspecified type of vessel, [place] or graft 414.00 ; Polyneuropathy in diabetes 357.2 ; Hypertension 401.9 ; Anxiety 300.00 ; GERD (gastroesophageal reflux disease) 530.81 and Type 2 diabetes mellitus with pressure callus 250.80 [facility] [address] [place] [id number] [place] [address] Mar, [facility] [address] [place] [id number] [place] [address] Mar, [facility] [address] [place] [id number] [place] [address] Mar, [facility] [id number] [place] [address] Mar, [facility] [address] [place] [address] Mar, Diabetes with renal manifestations, type II or unspecified type, uncontrolled 250.42 ; Coronary atherosclerosis of unspecified type of vessel, [place]ag[place] or graft 414.00 ; Polyneuropathy in diabetes 357.2 ; Hypertension 401.9 and Anxiety 300.00 [facility] [address] [place] [address] Mar, Routine gynecological examination V72.31 ; Breast cancer screening V76.10 ; Recurrent urinary tract infection 599.0 ; Mastodynia 611.71 and Tobacco abuse 305.1 [facility] [address] [facility] [id number], [place] [address] Feb, [facility] [address] [facility] [id number], [place] [address] Jan, [facility] [address] [facility] [id number], [place] [address] Jan, [facility] [address] [facility] [id number] [place] [address] Jan, [facility] [address] [place] [address] Jan, [facility] [address], [place] [address] December, [facility] [address] [place] [address] December, [facility] [address] [place] [id number], [place] [address] Nov, [facility] [address], [place] [address] Nov, [facility] [address] [place] [id number], [place] [address] Nov, [facility] [address], [place] [address] Oct, [facility] [address] [facility] [id number], [place] [address] Oct, [facility] [address], [place] [address] 16 Oct, 2014 [facility] [address] [facility] [id number], [place] [address] 16 Oct, 2014 [facility] [address] [id number], [place] [address] 16 Oct, 2014 [facility] [place] [facility] [address] [id number] [place] [address] 16 Oct, 2014 [facility] [place] [facility] [address] [id number] [place] [address] 16 Oct, 2014 [facility] [place] [facility] [address] [id number] [place] [address] Oct, [facility] [place] [facility] [address] [id number] [place] [address] Oct, [facility] [place] [facility] [address] [id number] [place] [address] Oct, [facility] [place] [facility] [address] [id number] [place] [address] Oct, [facility] [place] [facility] [address] [id number] [place] [address] Oct, [facility] [place] [facility] [address] [id number] [place] [address] Oct, [facility] [place] [facility] [address] [id number] [place] [address] Oct, [facility] [place] [facility] [address] [id number] [place] [address] Oct, [facility] [place] [facility] [address] [id number], [place] [address] Oct, [facility] [place] [facility] [address] [id number], [place] [address] Oct, [facility] [place] [facility] [address] [id number] [place] [address] Oct, [facility] [place] [facility] [address] [id number] [place] [address] Sep, [facility] [place] [facility] [address] [id number] [place] [address] Sep, [facility] [place] [facility] [address] [id number] [place] [address] Sep, 2014 [facility] [place] [facility] [address] [id number] [place] [address] Sep, 2014 [facility] [place] [facility] [address] [id number] [place] [address] Sep, 2014 [facility] [place] [facility] [address] [facility] [id number] [place] [address] Sep, 2014 [facility] [place] [facility] [address] [id number] [place] [address] Sep, 2014 [facility] [place] [facility] [address] [id number] [place] [address] Sep, 2014 [facility] [place] [facility] [address] [facility] [id number] [place] [address] Sep, 2014 [facility] [place] [facility] [address] [facility] [id number] [place] [address] Sep, 2014 [facility] [place] [facility] [address] [facility] [id number] [place] [address] Sep, 2014 [facility] [place] [facility] [address] [place] [id number] [address] Sep, 2014 [facility] [place] [facility] [id number], [place] [address] Sep, 2014 [facility] [place] [facility] [address] [facility] [id number], [place] [address] Sep, 2014 [facility] [place] [facility] [address] [facility] [id number] [place] [address] Sep, 2014 [facility] [place] [facility] [address] [facility] [id number], [place] [address] Aug, [facility] [place] [facility] [address] [facility] [id number], [place] [address] Aug, [facility] [place] [facility] [address] [facility] [id number], [place] [address] Aug, [facility] [address] [id number] [place] [address] Aug, [facility] [place] [facility] [address] [id number] [place] [address] Aug, [facility] [place] [facility] [address] [id number] [place] [address] Aug, [facility] [place] [facility] [address] [id number] [place] [address] Aug, [facility] [place] [facility] [address] [id number] [place] [address] Aug, [facility] [place] [facility] [address] [id number] [place] [address] Aug, [facility] [address] [id number] [place] [address] Aug, [facility] [place] [facility] [address] [id number] [place] [address] Aug, [facility] [place] [facility] [address] [id number] [place] [address] Aug, [facility] [place] [facility] [address] [id number] [place] [address] Aug, [facility] [place] [facility] [address] [id number] [place] [address] Jul, [facility] [place] [facility] [address] [id number], [place] [address] Jul, [facility] [place] [facility] [address] [id number] [place] [address] Jul, [facility] [place] [facility] [address] [id number] [place] [address] Jul, [facility] [place] [facility] [address] [id number] [place] [address] Jul, [facility] [place] [facility] [address] [id number] [place] [address] Jul, [facility] [place] [facility] [address] [id number] [place] [address] Jul, [facility] [place] [facility] [address] [id number] [place] [address] Jul, [facility] [place] [facility] [address] [id number] [place] [address] Jun, [facility] [place] [facility] [address] [id number] [place] [address] Jun, [facility] [place] [facility] [address] [id number] [place] [address] Jun, [facility] [place] [facility] [address] [id number] [place] [address] Jun, [facility] [place] [facility] [address] [id number] [place] [address] Jun, [facility] [place] [facility] [address] [id number] [place] [address] Jun, [facility] [place] [facility] [address] [id number] [place] [address] Jun, [facility] [place] [facility] [address] [id number] [place] [address] Jun, [facility] [place] [facility] [address] [id number] [place] [address] Jun, [facility] [place] [facility] [address] [id number] [place] [address] Jun, [facility] [place] [facility] [address] [id number] [place] [address] Jun, [facility] [place] [facility] [address] [id number] [place] [address] Jun, [facility] [place] [facility] [address] [id number] [place] [address] Jun, [facility] [place] [facility] [address] [id number] [place] [address] Jun, [facility] [place] [facility] [address] [id number] [place] [address] Jun, [facility] [place] [facility] [address] [id number] [place] [address] Jun, [facility] [place] [facility] [address] [id number] [place] [address] May, [facility] [place] [facility] [address] [id number] [place] [address] May, [facility] [place] [facility] [address] [id number] [place] [address] May, [facility] [place] [facility] [address] [id number] [place] [address] May, [facility] [place] [facility] [address] [id number], [place] [address] May, [facility] [place] [facility] [address] [id number] [place] [address] May, [facility] [place] [facility] [address] [id number], [place] [address] May, [facility] [place] [facility] [address] [id number], [place] [address] May, [facility] [place] [facility] [address] [id number], [place] [address] May, [facility] [place] [facility] [address] [id number] [place] [address] Apr, [facility] [place] [facility] [address] [id number], [place] [address] Apr, [facility] [place] [facility] [address] [id number], [place] [address] Apr, [facility] [place] [facility] [address] [id number] [place] [address] Apr, [facility] [place] [facility] [address] [id number] [place] [address] Mar, [facility] [place] [facility] [address] [id number] [place] [address] Mar, [facility] [place] [facility] [address] [id number] [place] [address] Mar, [facility] [place] [facility] [address] [id number] [place] [address] Mar, [facility] [place] [facility] [address] [id number] [place] [address] Feb, [facility] [place] [facility] [address] [id number] [place] [address] Feb, [facility] [place] [facility] [address] [id number] [place] [address] Jan, [facility] [place] [facility] [address] [id number] [place] [address] Jan, [facility] [place] [facility] [address] [id number] [place] [address] Jan, [facility] [place] [facility] [address] [id number] [place] [address] Jan, [facility] [place] [facility] [address] [id number] [place] [address] Jan, [facility] [place] [facility] [address] [id number] [place] [address] Jan, [facility] [place] [facility] [address] [id number] [place] [address] Jan, [facility] [place] [facility] [address] [id number] [place] [address] Jan, [facility] [place] [facility] [address] [id number] [place] [address] Jan, [facility] [place] [facility] [address] [id number] [place] [address] Jan, [facility] [place] [facility] [address] [id number] [place] [address] Jan, [facility] [place] [facility] [address] [id number] [place] [address] Jan, [facility] [place] [facility] [address] [id number] [place] [address] Jan, [facility] [place] [facility] [address] [id number] [place] [address] December, [facility] [place] [facility] [address] [id number] [place] [address] December, [facility] [place] [facility] [address] [id number] [place] [address] December, [facility] [place] [facility] [address] [id number] [place] [address] December, [facility] [place] [facility] [address] [id number] [place] [address] December, [facility] [place] [facility] [address] [id number] [place] [address] Nov, [facility] [place] [facility] [address] [id number] [place] [address] Nov, [facility] [place] [facility] [address] [id number] [place] [address] Nov, [facility] [place] [facility] [address] [id number] [place] [address] Nov, [facility] [place] [facility] [address] [id number] [place] [address] Nov, [facility] [place] [facility] [address] [id number] [place] [address] Nov, [facility] [place] [facility] [address] [id number] [place] [address] Nov, [facility] [place] [facility] [address] [id number] [place] [address] Nov, [facility] [place] [facility] [address] [id number] [place] [address] Nov, [facility] [place] [facility] [address] [id number] [place] [address] Nov, [facility] [place] [facility] [address] [id number] [place] [address] Jun, [facility] [place] [facility] [address] [id number] [place] [address] Jun, [facility] [place] [facility] [address] [id number] [place] [address] May, [facility] [place] [facility] [address] [id number] [place] [address] May, [facility] [place] [facility] [address] [id number] [place] [address] May, [facility] [place] [facility] [address] [id number] [place] [address] May, [facility] [place] [facility] [address] [id number] [place] [address] May, [facility] [place] [facility] [address] [id number], [place] [address] May, [facility] [place] [facility] [address] [id number], [place] [address] May, [facility] [place] [facility] [address] [id number] [place] [address] May, [facility] [place] [facility] [address] [id number] [place] [address] May, [facility] [place] [facility] [address] [id number] [place] [address] Apr, [facility] [place] [facility] [address] [id number] [place] [address] 25 Apr, 2011 [facility] [address] [id number] [place] [address] 25 Apr, 2011 [facility] [address] [id number] [place] [address] 21 Apr, 2011 [facility] [address] [id number] [place] [address] 20 Apr, 2011 [facility] [address] [id number] [place] [address] 19 Apr, 2011 [facility] [address] [id number] [place] [address] 05 Apr, 2012 [facility] [address] [id number] [place] [address] 04 Apr, 2012 [facility] [address] [id number] [place] [address] 28 Mar, 2012 [facility] [address] [id number] [place] [address] Mar, [facility] [address] [id number] [place] [address] 16 Mar, 2012 [facility] [address] [id number] [place] [address] 14 Mar, 2012 [facility] [address] [id number] [place] [address] Mar, [facility] [address] [place] [id number] Mar, [facility] [address] [id number] [place] [address] Mar, [facility] [address] [id number] [place] [address] Feb, [facility] [address] [id number] [place] [address] Feb, [facility] [place] [facility] [address] [id number] [place] [address] 16 Feb, 2012 [facility] [place] [facility] [address] [id number] [place] [address] Feb, [facility] [place] [facility] [address] [id number] [place] [address] Feb, [facility] [place] [facility] [address] [id number] [place] [address] Feb, [facility] [place] [facility] [address] [id number] [place] [address] Jan, [facility] [place] [facility] [address] [id number] [place] [address] Jan, [facility] [place] [facility] [address] [id number] [place] [address] Jan, [facility] [place] [facility] [address] [id number] [place] [address] Jan, [facility] [place] [facility] [address] [id number] [place] [address] Jan, [facility] [place] [facility] [address] [id number] [place] [address] Jan, [facility] [place] [facility] [address] [id number] [place] [address] Jan, [facility] [place] [facility] [address] [id number] [place] [address] December, [facility] [place] [facility] [address] [id number] [place] [address] December, [facility] [place] [facility] [address] [id number] [place] [address] December, [facility] [place] [facility] [address] [id number] [place] [address] Nov, [facility] [place] [facility] [address] [id number] [place] [address] Nov, [facility] [place] [facility] [address] [id number] [place] [address] Nov, [facility] [place] [facility] [address] [id number] [place] [address] Nov, [facility] [place] [facility] [address] [id number] [place] [address] Nov, [facility] [place] [facility] [address] [id number] [place] [address] 18 Nov, 2011 [facility] [place] [facility] [address] [id number] [place] [address] 17 Nov, 2011 [facility] [place] [facility] [address] [id number] [place] [address] Nov, [facility] [place] [facility] [address] [id number] [place] [address] Oct, [facility] [place] [facility] [address] [id number] [place] [address] Oct, [facility] [place] [facility] [address] [id number] [place] [address] Oct, [facility] [place] [facility] [address] [id number] [place] [address] Oct, [facility] [place] [facility] [address] [id number] [place] [address] Sep, [facility] [place] [facility] [address] [id number] [place] [address] Sep, [facility] [place] [facility] [address] [id number] [place] [address] Sep, [facility] [place] [facility] [address] [id number] [place] [address] Aug, [facility] [place] [facility] [address] [id number] [place] [address] Aug, [facility] [place] [facility] [address] [id number] [place] [address] Aug, [facility] [address] [id number] [place] [address] Aug, [facility] [address] [id number] [place] [address] 15 Jul, 2011 [facility] [address] [id number] [place] [address] 15 Jul, 2011 [facility] [place] [facility] [address] [id number] [place] [address] 15 Jul, 2011 [facility] [address] [id number] [place] [address], [place] [address] 30 Jun, 2011 [facility] [address] [id number] [place] [address] Jun, [facility] [address] [id number] [place] [address] 15 Jun, 2011 [facility] [address] [id number] [place] [address] 14 Jun, 2011 [facility] [place] [facility] [address] [id number] [place] [address] 14 Jun, 2011 [facility] [address] [id number] [place] [address] 14 Jun, 2011 [facility] [place] [facility] [address] [id number] [place] [address] May, [facility] [place] [facility] [address] [id number] [place] [address] May, [facility] [place] [facility] [address] [id number] [place] [address] 28 May, 2011 [facility] [place] [facility] [address] [id number] [place] [address] Apr, [facility] [place] [facility] [address] [id number] [place] [address] Mar, [facility] [address] [facility] [id number] [place] [address] Aug, IMMUNIZATIONS No Known Immunizations SOCIAL HISTORY Never Assessed REASON FOR VISIT PLAN OF CARE VITAL SIGNS MEDICATIONS Unknown Medications RESULTS No Results PROCEDURES No Known procedures INSTRUCTIONS MEDICATIONS ADMINISTERED No Known Medications MEDICAL (GENERAL) HISTORY Type Description Date Medical History type II diabetes-dx in 1995 Medical History stroke-12/2011-[facility] Medical History cardiovascular disorder-CAD Medical History hyperlipidemia Medical History hypertension Medical History Diabetes with renal manifestations, type II or unspecified type, uncontrolled Medical History 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 Discharged 06/27/17 06/25/17
--- OUTSIDE RECORDS SUMMARY | 2019-03-03 10:54 | XMS REPORT ---
Author Author ALBIN RENAE Organization [facility] [place] Address [address] [place] [address] Care Team Providers Care C Winforms Developer Name Role Phone ALBIN RENAE Unavailable PROBLEMS Type Condition ICD9-CM Code RBZ65-NJ Code Onset Dates Condition Status SNOMED Code Problem Dyspepsia R10.13 Active 543385289 Problem half-way 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 Active 436897626 Problem Essential hypertension I10 Active 37550026 Problem Chronic pain G89.29 Active 22428604 Problem Skin infection L08.9 Active 885202132 Problem Allergic rhinitis J30.9 Active 83426012 Problem Non-healing skin lesion L98.9 Active 76337338 Problem Type 2 diabetes mellitus with other skin ulcer E11.622 Active 58246832 Problem Cough R05 Active 987071789 Problem Ulcer of right lower leg, with unspecified severity L97.919 Active 030000842 Problem Left ventricular enlargement I51.7 Active 546580262 Problem Type 2 diabetes mellitus with other circulatory complications E11.59 Active 03261222 Problem Foot swelling M79.89 Active 625718165 Problem CAD (coronary artery disease) I25.10 Active 15749161 Problem Urinary incontinence R32 Active 401923297 Problem Stress incontinence in female N39.3 Active 01184971 Problem Diabetic polyneuropathy associated with type 2 diabetes mellitus E11.42 Active 48348083 Problem Anxiety F41.9 Active 84566796 Problem Atrial enlargement, left I51.7 Active 80687187163997 Problem Pulmonary HTN I27.2 Active 89028432 Problem Neuropathy G62.9 Active 317960620 Problem Mixed hyperlipidemia E78.2 Active 723575515 ALLERGIES No Information ENCOUNTERS Encounter Location Date Diagnosis [address] [address] Jan, Diabetic polyneuropathy associated with type 2 diabetes mellitus E11.[address] [address] [facility], [facility] [address] [address] Jan, Wheezing R06.2 and Cough R05 [facility] [place] [address] [address] 10 Jan, 2019 Cough R05 ; Bronchitis J40 ; Wheezing R06.2 ; Unspecified superficial injury of left lesser toe(s), subsequent encounter S90.935D and Type 2 diabetes mellitus with other circulatory complications E11.59 [facility] [place] [address] [address] Jan, [facility] [place] [address] [address] December, [facility] [place] [address] [address] December, [address] [address] December, Encounter for removal of sutures Z48.02 [facility] [place] [address] [address] December, Diabetic polyneuropathy associated with type 2 diabetes mellitus E11.42 [facility] [place] [address] [address] December, [address] [address] December, Infection of toe L08.[address] [address] December, [place] [address] [place] [address] December, Diabetic polyneuropathy associated with type 2 diabetes mellitus E11.42 ; meterman 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 ; Urinary incontinence R32 and Type 2 diabetes mellitus with other circulatory complications E11.59 [place] [address] [place] [address] December, Essential hypertension I10 ; Type 2 diabetes mellitus with other circulatory complications E11.59 and Dizziness R42 [place] [address] [place] [address] December, Dizziness R42 ; Essential hypertension I10 and Type 2 diabetes mellitus with other circulatory complications E11.[address] [address] Nov, Breast lump N63.[address] [address] Nov, Breast lump N63.[address] [address] Nov, Breast lump N63.[address] [address] Nov, [address] [address] Nov, Mixed hyperlipidemia E78.2 ; Essential hypertension I10 and meterman 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 [address] Nov, Essential hypertension I10 ; Breast cancer screening Z12.31 ; meterman 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 ; Mixed hyperlipidemia E78.2 ; Dysuria R30.0 and Type 2 diabetes mellitus with other circulatory complications E11.59 [place] [address] [address] May, [place] [address] [address] Apr, [place] [address] [address] Apr, Essential hypertension I10 and Diabetic polyneuropathy associated with type 2 diabetes mellitus E11.42 [place] [address] [address] Mar, [place] [address] [place] [id number] [place] [address] Feb, Onychomycosis B35.1 ; Neuropathy G62.9 and Diabetic polyneuropathy associated with type 2 diabetes mellitus E11.42 [place] [address] [place] [address] [address] Feb, [facility] [place] [address] [address] December, [facility] [place] [address] [place] [id number] [address] December, Herpes zoster without complication B02.9 ; Onychia of toe of left foot L03.032 ; Ingrowing toenail with infection L60.0 and Diabetic polyneuropathy associated with type 2 diabetes mellitus E11.42 [facility] [place] [address], [place] [address] December, [place] [address] [place] [id number] [place] [address] Nov, [place] [address] [place] [id number] [place] [address] Oct, Diabetic polyneuropathy associated with type 2 diabetes mellitus E11.42 [place] [address] [address] Oct, Essential hypertension I10 and Diabetic polyneuropathy associated with type 2 diabetes mellitus E11.42 [place] [address] [place] [address] Sep, Diabetic polyneuropathy associated with type 2 diabetes mellitus E11.42 ; Type 2 diabetes mellitus with other skin ulcer E11.622 ; Chronic pain G89.29 ; Anxiety F41.9 ; Essential hypertension I10 ; Hypoxia R09.02 ; Atrial enlargement, left I51.7 and Left ventricular enlargement I51.7 [facility] [place] [address] [address] Sep, [facility] [place] [address] [place] [id number] [place] [address] Aug, [facility] [place] [address] [address] Jul, [place] [address] [place] [address] [address] Jul, [facility] [place] [address] [place] [id number] [place] [address] Jul, CAD (coronary artery disease) I25.10 ; Essential hypertension I10 ; Pulmonary HTN I27.2 ; Atrial enlargement, left I51.7 and Left ventricular enlargement I51.7 [place] [address] [place] [id number] [place] [address] Jun, [facility] [place] [address] [place] [id number] [place] [address] Jun, [place] [address] [place] [id number] [place] [address] Jun, [place] [address] [place] [id number] [place] [address] Jun, [place] [address] [place] [id number] [place] [address] Jun, Diabetic polyneuropathy associated with type 2 diabetes mellitus E11.42 ; Type 2 diabetes mellitus with other skin ulcer E11.622 ; Chronic pain G89.29 ; Anxiety F41.9 ; Essential hypertension I10 ; Ulcer of right lower leg, with unspecified severity L97.919 ; Pulmonary HTN I27.2 ; Hypoxia R09.02 ; Atrial enlargement, left I51.7 and Left ventricular enlargement I51.7 [place] [address] [address] May, [place] [address], [place] [address] Apr, Diabetic polyneuropathy associated with type 2 diabetes mellitus E11.42 ; Type 2 diabetes mellitus with other skin ulcer E11.622 ; Chronic pain G89.29 ; Anxiety F41.9 ; Cough R05 ; Essential hypertension I10 and Ulcer of right lower leg, with unspecified severity L97.919 [place] [address] [address] Mar, Diabetic polyneuropathy associated with type 2 diabetes mellitus E11.42 ; Chronic pain G89.29 ; Anxiety F41.9 ; Type 2 diabetes mellitus with other skin ulcer E11.622 ; Cough R05 ; Essential hypertension I10 and Ulcer of right lower leg, with unspecified severity L97.919 [place] [address] [place] [id number] [place] [address] Feb, [place] [address] [address] Feb, Diabetic polyneuropathy associated with type 2 diabetes mellitus E11.42 ; Chronic pain G89.29 ; Anxiety F41.9 ; Type 2 diabetes mellitus with other skin ulcer E11.622 ; Cough R05 and Essential hypertension I10 [place] [address] [address] Jan, Chronic pain G89.29 ; Anxiety F41.9 and Foot swelling M79.89 [place] [address] [address] December, Chronic pain G89.29 ; Anxiety F41.9 and Stress incontinence in female N39.3 [place] [address] [address] December, [place] [address] [place] [id number] [place] [address] Nov, [place] [address] [place] [id number] [place] [address] Nov, [place] [address] [place] [id number] [place] [address] Nov, [place] [address] [address] Nov, Chronic pain G89.29 ; Anxiety F41.9 ; Non-healing skin lesion L98.9 and Type 2 diabetes mellitus with other skin ulcer E11.622 [place] [address] [address] Nov, Diabetic polyneuropathy associated with type 2 diabetes mellitus E11.42 [facility] [place] [address], [place] [address] Nov, [facility] [place] [address], [place] [address] Nov, [facility] [place] [address], [place] [address] Nov, [facility] [place] [address] [place] [id number] [place] [address] Nov, [facility] [place] [address] [place] [id number] [place] [address] Nov, Diabetic polyneuropathy associated with type 2 diabetes mellitus E11.42 [facility] [place] [address] [place] [address] Oct, Diabetic polyneuropathy associated with type 2 diabetes mellitus E11.42 ; Essential hypertension I10 ; Chronic pain G89.29 ; Anxiety F41.9 and Skin infection L08.9 [facility] [place] [address], [place] [address] Oct, [facility] [place] [address] [place] [address] Sep, [facility] [place] [address], [place] [address] Sep, Diabetic polyneuropathy associated with type 2 diabetes mellitus E11.42 ; Chronic pain G89.29 ; Anxiety F41.9 and Allergic rhinitis J30.9 [facility] [place] [address], [place] [address] Aug, Diabetic polyneuropathy associated with type 2 diabetes mellitus E11.42 ; Chronic pain G89.29 ; Anxiety F41.9 and Allergic rhinitis J30.9 [facility] [place] [address], [place] [address] Jul, [facility] [place] [address] [place] [id number] [place] [address] Jul, Diabetic polyneuropathy associated with type 2 diabetes mellitus E11.42 ; Dyspepsia R10.13 ; Essential hypertension I10 ; meterman 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 ; CAD (coronary artery disease) I25.10 ; Chronic pain G89.29 ; Anxiety F41.9 ; Dysuria R30.0 and Pain of left lower leg M79.662 [place] [address] [address] Jul, [place] [address] [address] Jun, Diabetic polyneuropathy associated with type 2 diabetes mellitus E11.42 and meterman 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 [place] [address] [address] Jun, [address] [address] Jun, Neuropathy G62.9 ; Arthritis M19.90 ; Leg cramps R25.2 and Anxiety F41.9 [place] [address] [address] May, [place] [address] [address] May, [place] [address] [address] May, Diabetic polyneuropathy associated with type 2 diabetes mellitus E11.42 [place] [address] [address] May, [place] [address] [address] Apr, [place] [address] [address] Apr, [address] [place] [address] 17 Apr, 2015 [facility] [place] [address] [place] [id number] [place] [address] 14 Apr, 2015 [facility] [place] [address] [place] [id number] [place] [address] Apr, [facility] [place] [address] [place] [id number] [place] [address] Apr, [facility] [place] [address] [place] [id number] [place] [address] Apr, Diabetes with renal manifestations, type II or unspecified type, uncontrolled 250.42 ; Coronary atherosclerosis of unspecified type of vessel, ione or graft 414.00 ; Polyneuropathy in diabetes 357.2 ; Hypertension 401.9 ; Anxiety 300.00 ; GERD (gastroesophageal reflux disease) 530.81 and Type 2 diabetes mellitus with pressure callus 250.80 [place] [address] [place] [id number] [place] [address] Mar, [facility] [place] [address] [place] [id number] [place] [address] Mar, [facility] [place] [address] [place] [id number] [place] [address] Mar, [facility] [place] [address] [place] [id number] [place] [address] Mar, [place] [address] [place] [id number] [place] [address] Mar, Diabetes with renal manifestations, type II or unspecified type, uncontrolled 250.42 ; Coronary atherosclerosis of unspecified type of vessel, ione or graft 414.00 ; Polyneuropathy in diabetes 357.2 ; Hypertension 401.9 and Anxiety 300.00 [facility] [place] [address] [place] [id number] [place] [address] Mar, Routine gynecological examination V72.31 ; Breast cancer screening V76.10 ; Recurrent urinary tract infection 599.0 ; Mastodynia 611.71 and Tobacco abuse 305.[address] [place] [address] [id number] [place] [address] Feb, [facility] [place] [facility] [address] [id number] [place] [address] Jan, [facility] [place] [facility] [address] [id number] [place] [address] Jan, [facility] [place] [facility] [address] [id number] [place] [address] Jan, [facility] [place] [facility] [address] [id number] [place] [address] Jan, [facility] [place] [facility] [address] [id number] [place] [address] December, [facility] [place] [facility] [address] [id number] [place] [address] December, [facility] [place] [facility] [address] [id number] [place] [address] Nov, [facility] [place] [facility] [address] [id number] [place] [address] Nov, [facility] [place] [facility] [address] [id number] [place] [address] Nov, [facility] [place] [facility] [address] [id number] [place] [address] Oct, [facility] [place] [facility] [address] [id number] [place] [address] 19 Oct, 2014 [facility] [place] [facility] [address] [id number] [place] [address] 16 Oct, 2014 [facility] [place] [facility] [address] [id number] [place] [address] 16 Oct, 2014 [facility] [place] [facility] [address] [id number] [place] [address] 16 Oct, 2014 [facility] [place] [facility] [address] [id number] [place] [address] 16 Oct, 2014 [facility] [place] [facility] [address] [id number] [place] [address] 16 Oct, 2014 [facility] [place] [facility] [address] [id number] [place] [address] 16 Oct, 2014 [facility] [place] [facility] [address] [id number] [place] [address] Oct, [facility] [place] [facility] [address] [id number] [place] [address] Oct, [facility] [place] [facility] [address] [id number] [place] [address] Oct, [facility] [place] [facility] [address] [id number] [place] [address] Oct, [facility] [place] [facility] [address] [id number] [place] [address] Oct, [facility] [place] [facility] [address] [id number] [place] [address] Oct, [facility] [place] [facility] [address] [id number] [place] [address] Oct, [facility] [place] [facility] [address] [id number] [place] [address] Oct, [facility] [place] [facility] [address] [id number] [place] [address] Oct, [facility] [place] [facility] [address] [id number] [place] [address] Oct, [facility] [place] [facility] [address] [id number] [place] [address] Sep, [facility] [place] [facility] [address] [id number] [place] [address] Sep, [facility] [place] [facility] [address] [id number] [place] [address] Sep, [facility] [place] [facility] [address] [id number] [place] [address] Sep, 2014 [facility] [place] [facility] [address] [id number] [place] [address] Sep, 2014 [facility] [place] [facility] [address] [id number] [place] [address] Sep, 2014 [facility] [place] [facility] [address] [id number] [place] [address] Sep, 2014 [facility] [place] [facility] [address] [id number] [place] [address] Sep, 2014 [facility] [place] [facility] [address] [id number] [place] [address] Sep, 2014 [facility] [place] [facility] [address] [facility] [id number] [place] [address] Sep, 2014 [facility] [place] [facility] [address] [id number] [place] [address] Sep, 2014 [facility] [place] [facility] [address] [id number] [place] [address] Sep, 2014 [facility] [place] [facility] [address] [facility] [id number] [place] [address] Sep, 2014 [facility] [place] [facility] [address] [facility] [id number] [place] [address] Sep, 2014 [facility] [place] [facility] [address] [facility] [id number] [place] [address] Sep, 2014 [facility] [place] [facility] [address] [id number] [place] [address] Aug, [facility] [place] [facility] [address] [id number] [place] [address] Aug, [facility] [place] [facility] [address] [facility] [id number] [place] [address] Aug, [facility] [place] [facility] [address] [facility] [id number] [place] [address] Aug, [facility] [address] [id number] [place] [address] Aug, [facility] [place] [facility] [address] [id number] [place] [address] Aug, [facility] [place] [facility] [address] [id number] [place] [address] Aug, [facility] [place] [facility] [address] [id number] [place] [address] Aug, [facility] [place] [facility] [address] [id number] [place] [address] Aug, [facility] [place] [facility] [address] [id number] [place] [address] Aug, [facility] [address] [id number] [place] [address] Aug, [facility] [place] [facility] [address] [id number] [place] [address] Aug, [facility] [place] [facility] [address] [id number] [place] [address] Aug, [facility] [place] [facility] [address] [id number] [place] [address] Jul, [facility] [place] [facility] [address] [id number] [place] [address] Jul, [facility] [place] [facility] [address] [id number] [place] [address] 30 Jul, 2014 [facility] [place] [facility] [address] [id number] [place] [address] Jul, [facility] [place] [facility] [address] [id number] [place] [address] Jul, [facility] [place] [facility] [address] [id number] [place] [address] Jul, [facility] [place] [facility] [address] [id number] [place] [address] Jul, [facility] [place] [facility] [address] [id number] [place] [address] Jul, [facility] [place] [facility] [address] [id number] [place] [address] Jun, [facility] [place] [facility] [address] [id number] [place] [address] Jun, [facility] [place] [facility] [address] [id number] [place] [address] Jun, [facility] [place] [facility] [address] [id number] [place] [address] Jun, [facility] [place] [facility] [address] [id number] [place] [address] Jun, [facility] [place] [facility] [address] [id number] [place] [address] Jun, [facility] [place] [facility] [address] [id number] [place] [address] Jun, [facility] [place] [facility] [address] [id number] [place] [address] Jun, [facility] [place] [facility] [address] [id number] [place] [address] Jun, [facility] [place] [facility] [address] [id number] [place] [address] Jun, [facility] [place] [facility] [address] [id number] [place] [address] Jun, [facility] [place] [facility] [address] [id number] [place] [address] 14 Jun, 2014 [facility] [place] [facility] [address] [id number] [place] [address] 13 Jun, 2014 [facility] [place] [facility] [address] [id number] [place] [address] Jun, [facility] [place] [facility] [address] [id number] [place] [address] Jun, [facility] [place] [facility] [address] [id number] [place] [address] Jun, [facility] [place] [facility] [address] [id number] [place] [address] May, [facility] [place] [facility] [address] [id number] [place] [address] May, [facility] [place] [facility] [address] [id number] [place] [address] May, [facility] [place] [facility] [address] [id number] [place] [address] May, [facility] [place] [facility] [address] [id number] [place] [address] May, [facility] [place] [facility] [address] [id number], [place] [address] May, [facility] [place] [facility] [address] [id number], [place] [address] May, [facility] [place] [facility] [address] [id number], [place] [address] May, [facility] [place] [facility] [address] [id number], [place] [address] May, [facility] [place] [facility] [address] [id number], [place] [address] Apr, [facility] [place] [facility] [address] [id number] [place] [address] Apr, [facility] [place] [facility] [address] [id number], [place] [address] Apr, [facility] [place] [facility] [address] [id number], [place] [address] Apr, [facility] [place] [facility] [address] [id number] [place] [address] Mar, [facility] [place] [facility] [address] [id number] [place] [address] Mar, [facility] [place] [facility] [address] [id number] [place] [address] Mar, [facility] [place] [facility] [address] [id number] [place] [address] Mar, [facility] [place] [facility] [address] [id number] [place] [address] Feb, [facility] [place] [facility] [address] [id number] [place] [address] Feb, [facility] [place] [facility] [address] [id number] [place] [address] Jan, [facility] [place] [facility] [address] [id number] [place] [address] Jan, [facility] [place] [facility] [address] [id number] [place] [address] Jan, [facility] [place] [facility] [address] [id number] [place] [address] Jan, [facility] [place] [facility] [address] [id number] [place] [address] Jan, [facility] [place] [facility] [address] [id number] [place] [address] Jan, [facility] [place] [facility] [address] [id number] [place] [address] Jan, [facility] [place] [facility] [address] [id number] [place] [address] Jan, [facility] [place] [facility] [address] [id number] [place] [address] Jan, [facility] [place] [facility] [address] [id number] [place] [address] Jan, [facility] [place] [facility] [address] [id number] [place] [address] Jan, [facility] [place] [facility] [address] [id number] [place] [address] Jan, [facility] [place] [facility] [address] [id number] [place] [address] Jan, [facility] [place] [facility] [address] [id number] [place] [address] December, [facility] [place] [facility] [address] [id number] [place] [address] December, [facility] [place] [facility] [address] [id number] [place] [address] December, [facility] [place] [facility] [address] [id number] [place] [address] December, [facility] [place] [facility] [address] [id number] [place] [address] December, [facility] [place] [facility] [address] [id number] [place] [address] Nov, [facility] [place] [facility] [address] [id number] [place] [address] Nov, [facility] [place] [facility] [address] [id number] [place] [address] Nov, [facility] [place] [facility] [address] [id number] [place] [address] Nov, [facility] [place] [facility] [address] [id number] [place] [address] Nov, [facility] [place] [facility] [address] [id number] [place] [address] Nov, [facility] [place] [facility] [address] [id number] [place] [address] Nov, [facility] [place] [facility] [address] [id number], [place] [address] Nov, [facility] [place] [facility] [address] [id number] [place] [address] Nov, [facility] [place] [facility] [address] [id number] [place] [address] Nov, [facility] [place] [facility] [address] [id number] [place] [address] Jun, [facility] [place] [facility] [address] [id number] [place] [address] Jun, [facility] [place] [facility] [address] [id number] [place] [address] May, [facility] [place] [facility] [address] [id number] [place] [address] May, [facility] [place] [facility] [address] [id number] [place] [address] May, [facility] [place] [facility] [address] [id number] [place] [address] May, [facility] [place] [facility] [address] [id number] [place] [address] May, [facility] [place] [facility] [address] [id number] [place] [address] May, [facility] [place] [facility] [address] [id number], [place] [address] May, [facility] [place] [facility] [address] [id number], [place] [address] May, [facility] [place] [facility] [address] [id number] [place] [address] May, [facility] [place] [facility] [address] [id number] [place] [address] Apr, [facility] [place] [facility] [address] [id number] [place] [address] Apr, [facility] [place] [facility] [address] [id number] [place] [address] 25 Apr, 2011 [facility] [address] [id number] [place] [address] 21 Apr, 2012 [facility] [address] [id number] [place] [address] 20 Apr, 2012 [facility] [address] [id number] [place] [address] 19 Apr, 2012 [facility] [address] [id number] [place] [address] 05 Apr, 2012 [facility] [address] [id number] [place] [address] 04 Apr, 2012 [facility] [address] [id number] [place] [address] Mar, [facility] [address] [id number] [place] [address] Mar, [facility] [address] [id number] [place] [address] Mar, [facility] [address] [id number] [place] [address] Mar, [facility] [address] [id number] [place] [address] Mar, [address] [id number] Mar, [facility] [address] [id number] [place] [address] Mar, [facility] [address] [id number] [place] [address] Feb, [facility] [address] [id number] [place] [address] Feb, [facility] [address] [id number] [place] [address] Feb, [facility] [place] [facility] [address] [id number] [place] [address] Feb, [facility] [place] [facility] [address] [id number] [place] [address] Feb, [facility] [place] [facility] [address] [id number] [place] [address] Feb, [facility] [place] [facility] [address] [id number] [place] [address] Jan, [facility] [place] [facility] [address] [id number] [place] [address] Jan, [facility] [place] [facility] [address] [id number] [place] [address] Jan, [facility] [place] [facility] [address] [id number] [place] [address] Jan, [facility] [place] [facility] [address] [id number] [place] [address] Jan, [facility] [place] [facility] [address] [id number] [place] [address] Jan, [facility] [place] [facility] [address] [id number] [place] [address] Jan, [facility] [place] [facility] [address] [id number] [place] [address] December, [facility] [place] [facility] [address] [id number] [place] [address] December, [facility] [place] [facility] [address] [id number] [place] [address] December, [facility] [place] [facility] [address] [id number] [place] [address] Nov, [facility] [place] [facility] [address] [id number] [place] [address] Nov, [facility] [place] [facility] [address] [id number] [place] [address] Nov, [facility] [place] [facility] [address] [id number] [place] [address] Nov, [facility] [place] [facility] [address] [id number] [place] [address] Nov, [facility] [place] [facility] [address] [id number] [place] [address] 18 Nov, 2011 [facility] [place] [facility] [address] [id number] [place] [address] 17 Nov, 2011 [facility] [place] [facility] [address] [id number] [place] [address] Nov, [facility] [place] [facility] [address] [id number] [place] [address] Oct, [facility] [place] [facility] [address] [id number] [place] [address] Oct, [facility] [place] [facility] [address] [id number] [place] [address] Oct, [facility] [place] [facility] [address] [id number] [place] [address] Oct, [facility] [place] [facility] [address] [id number] [place] [address] Sep, [facility] [place] [facility] [address] [id number] [place] [address] Sep, [facility] [place] [facility] [address] [id number] [place] [address] Sep, [facility] [place] [facility] [address] [id number] [place] [address] Aug, [facility] [place] [facility] [address] [id number] [place] [address] Aug, [facility] [place] [facility] [address] [id number] [place] [address] Aug, [facility] [place] [facility] [address] [id number] [place] [address] 04 Aug, 2011 [facility] [address] [id number] [place] [address] 15 Jul, 2011 [facility] [address] [id number] [place] [address] 15 Jul, 2011 [facility] [address] [id number] [place] [address] 15 Jul, 2011 [facility] [address] [id number] [place] [address] 30 Jun, 2011 [facility] [address] [id number] [place] [address], [place] [address] 22 Jun, 2011 [facility] [address] [id number] [place] [address] 15 Jun, 2011 [facility] [address] [facility] [id number] [place] [address] 14 Jun, 2011 [facility] [address] [id number] [place] [address] 14 Jun, 2011 [facility] [address] [facility] [id number] [place] [address] 14 Jun, 2011 [facility] [address] [facility] [id number] [place] [address] May, [facility] [address] [id number] [place] [address] 31 May, 2011 [facility] [address] [id number] [place] [address] May, [facility] [address] [id number] [place] [address] Apr, [facility] [address] [id number] [place] [address] Mar, [facility] [address] [id number] [place] [address] Aug, IMMUNIZATIONS No Known Immunizations SOCIAL HISTORY Never Assessed REASON FOR VISIT PLAN OF CARE VITAL SIGNS MEDICATIONS Unknown Medications RESULTS No Results PROCEDURES No Known procedures INSTRUCTIONS MEDICATIONS ADMINISTERED No Known Medications MEDICAL (GENERAL) HISTORY Type Description Date Medical History type II diabetes-dx in 1995 Medical History stroke-12/2011-[place] Medical History cardiovascular disorder-CAD Medical History hyperlipidemia Medical History hypertension Medical History Diabetes with renal manifestations, type II or unspecified type, uncontrolled Medical History 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 Discharged 06/27/17 06/25/17
--- OUTSIDE RECORDS SUMMARY | 2019-03-03 10:55 | XMS REPORT ---
Author Author ALBIN RENAE Organization [facility] Address [address] [place] [address] Care Team Providers Care Housekeeping Associate Name Role Phone ALBIN RENAE Unavailable PROBLEMS Type Condition ICD9-CM Code KJX99-MM Code Onset Dates Condition Status SNOMED Code Problem Dyspepsia R10.13 Active 540380881 Problem detention 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 Active 455468798 Problem Essential hypertension I10 Active 31927612 Problem Chronic pain G89.29 Active 30581437 Problem Skin infection L08.9 Active 333903324 Problem Allergic rhinitis J30.9 Active 90246479 Problem Non-healing skin lesion L98.9 Active 64046112 Problem Type 2 diabetes mellitus with other skin ulcer E11.622 Active 73774532 Problem Cough R05 Active 091116804 Problem Ulcer of right lower leg, with unspecified severity L97.919 Active 396367210 Problem Left ventricular enlargement I51.7 Active 414920096 Problem Type 2 diabetes mellitus with other circulatory complications E11.59 Active 74971682 Problem Foot swelling M79.89 Active 756190154 Problem CAD (coronary artery disease) I25.10 Active 66073793 Problem Urinary incontinence R32 Active 433098023 Problem Stress incontinence in female N39.3 Active 35957162 Problem Diabetic polyneuropathy associated with type 2 diabetes mellitus E11.42 Active 87425080 Problem Anxiety F41.9 Active 48290461 Problem Atrial enlargement, left I51.7 Active 28645777739028 Problem Pulmonary HTN I27.2 Active 14404600 Problem Neuropathy G62.9 Active 035423142 Problem Mixed hyperlipidemia E78.2 Active 900875218 ALLERGIES No Information ENCOUNTERS Encounter Location Date Diagnosis [address] [address] Jan, Diabetic polyneuropathy associated with type 2 diabetes mellitus E11.[address] [address] [facility] [address] [address] Jan, Wheezing R06.2 and Cough R05 [facility] [address] [address] 10 Jan, 2019 Cough R05 ; Bronchitis J40 ; Wheezing R06.2 ; Unspecified superficial injury of left lesser toe(s), subsequent encounter S90.935D and Type 2 diabetes mellitus with other circulatory complications E11.59 [facility] [place] [address] [address] Jan, [facility] [place] [address] [address] December, [facility] [place] [address] [address] December, [address] [address] December, Encounter for removal of sutures Z48.02 [facility] [place] [address] [address] December, Diabetic polyneuropathy associated with type 2 diabetes mellitus E11.42 [facility] [place] [address] [address] December, [address] [address] December, Infection of toe L08.[address] [address] December, [place] [address] [place] [address] December, Diabetic polyneuropathy associated with type 2 diabetes mellitus E11.42 ; 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 ; Urinary incontinence R32 and Type 2 diabetes mellitus with other circulatory complications E11.59 [place] [address] [place] [address] December, Essential hypertension I10 ; Type 2 diabetes mellitus with other circulatory complications E11.59 and Dizziness R42 [place] [address] [place] [address] December, Dizziness R42 ; Essential hypertension I10 and Type 2 diabetes mellitus with other circulatory complications E11.[address] [address] Nov, Breast lump N63.[address] [address] Nov, Breast lump N63.[address] [address] Nov, Breast lump N63.[address] [address] Nov, [address] [address] Nov, Mixed hyperlipidemia E78.2 ; Essential hypertension I10 and 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 [address] Nov, Essential hypertension I10 ; Breast cancer screening Z12.31 ; 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 ; Mixed hyperlipidemia E78.2 ; Dysuria R30.0 and Type 2 diabetes mellitus with other circulatory complications E11.59 [place] [address] [address] May, [place] [address] [address] Apr, [place] [address] [address] Apr, Essential hypertension I10 and Diabetic polyneuropathy associated with type 2 diabetes mellitus E11.42 [place] [address] [address] Mar, [place] [address] [place] [id number] [place] [address] Feb, Onychomycosis B35.1 ; Neuropathy G62.9 and Diabetic polyneuropathy associated with type 2 diabetes mellitus E11.42 [place] [address] [place] [address] [address] Feb, [facility] [address] [address] December, [facility] [address] [place] [address] [address] December, Herpes zoster without complication B02.9 ; Onychia of toe of left foot L03.032 ; Ingrowing toenail with infection L60.0 and Diabetic polyneuropathy associated with type 2 diabetes mellitus E11.42 [facility] [address] [address] December, [place] [address] [place] [id number] [place] [address] Nov, [place] [address] [place] [id number] [place] [address] Oct, Diabetic polyneuropathy associated with type 2 diabetes mellitus E11.42 [place] [address] [address] Oct, Essential hypertension I10 and Diabetic polyneuropathy associated with type 2 diabetes mellitus E11.42 [place] [address] [place] [address] Sep, Diabetic polyneuropathy associated with type 2 diabetes mellitus E11.42 ; Type 2 diabetes mellitus with other skin ulcer E11.622 ; Chronic pain G89.29 ; Anxiety F41.9 ; Essential hypertension I10 ; Hypoxia R09.02 ; Atrial enlargement, left I51.7 and Left ventricular enlargement I51.7 [facility] [address] [address] Sep, [facility] [address] [place] [id number] [place] [address] Aug, [facility] [address] [address] Jul, [place] [address] [place] [address] [address] Jul, [facility] [address] [place] [id number] [place] [address] Jul, CAD (coronary artery disease) I25.10 ; Essential hypertension I10 ; Pulmonary HTN I27.2 ; Atrial enlargement, left I51.7 and Left ventricular enlargement I51.7 [place] [address] [place] [id number] [place] [address] Jun, [facility] [address] [place] [id number] [place] [address] Jun, [place] [address] [place] [id number] [place] [address] Jun, [place] [address] [place] [id number] [place] [address] Jun, [place] [address] [place] [id number] [place] [address] Jun, Diabetic polyneuropathy associated with type 2 diabetes mellitus E11.42 ; Type 2 diabetes mellitus with other skin ulcer E11.622 ; Chronic pain G89.29 ; Anxiety F41.9 ; Essential hypertension I10 ; Ulcer of right lower leg, with unspecified severity L97.919 ; Pulmonary HTN I27.2 ; Hypoxia R09.02 ; Atrial enlargement, left I51.7 and Left ventricular enlargement I51.7 [place] [address] [address] May, [place] [address] [address] Apr, Diabetic polyneuropathy associated with type 2 diabetes mellitus E11.42 ; Type 2 diabetes mellitus with other skin ulcer E11.622 ; Chronic pain G89.29 ; Anxiety F41.9 ; Cough R05 ; Essential hypertension I10 and Ulcer of right lower leg, with unspecified severity L97.919 [place] [address] [address] Mar, Diabetic polyneuropathy associated with type 2 diabetes mellitus E11.42 ; Chronic pain G89.29 ; Anxiety F41.9 ; Type 2 diabetes mellitus with other skin ulcer E11.622 ; Cough R05 ; Essential hypertension I10 and Ulcer of right lower leg, with unspecified severity L97.919 [place] [address] [place] [id number] [place] [address] Feb, [place] [address] [address] Feb, Diabetic polyneuropathy associated with type 2 diabetes mellitus E11.42 ; Chronic pain G89.29 ; Anxiety F41.9 ; Type 2 diabetes mellitus with other skin ulcer E11.622 ; Cough R05 and Essential hypertension I10 [place] [address] [address] Jan, Chronic pain G89.29 ; Anxiety F41.9 and Foot swelling M79.89 [place] [address] [address] December, Chronic pain G89.29 ; Anxiety F41.9 and Stress incontinence in female N39.3 [place] [address] [address] December, [place] [address] [place] [id number] [place] [address] Nov, [place] [address] [place] [id number] [place] [address] Nov, [place] [address] [place] [id number] [place] [address] Nov, [place] [address] [address] Nov, Chronic pain G89.29 ; Anxiety F41.9 ; Non-healing skin lesion L98.9 and Type 2 diabetes mellitus with other skin ulcer E11.622 [place] [address] [address] Nov, Diabetic polyneuropathy associated with type 2 diabetes mellitus E11.42 [facility] [address] [address] Nov, [facility] [address] [address] Nov, [facility] [address], [place] [address] Nov, [facility] [address] [place] [id number] [place] [address] Nov, [facility] [address] [place] [id number] [place] [address] Nov, Diabetic polyneuropathy associated with type 2 diabetes mellitus E11.42 [facility] [address] [place] [address] Oct, Diabetic polyneuropathy associated with type 2 diabetes mellitus E11.42 ; Essential hypertension I10 ; Chronic pain G89.29 ; Anxiety F41.9 and Skin infection L08.9 [facility] [address] [address] Oct, [facility] [address] [place] [address] Sep, [facility] [address] [address] Sep, Diabetic polyneuropathy associated with type 2 diabetes mellitus E11.42 ; Chronic pain G89.29 ; Anxiety F41.9 and Allergic rhinitis J30.9 [facility] [address] [address] Aug, Diabetic polyneuropathy associated with type 2 diabetes mellitus E11.42 ; Chronic pain G89.29 ; Anxiety F41.9 and Allergic rhinitis J30.9 [facility] [address] [address] Jul, [facility] [address] [place] [id number] [place] [address] Jul, Diabetic polyneuropathy associated with type 2 diabetes mellitus E11.42 ; Dyspepsia R10.13 ; Essential hypertension I10 ; 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 ; CAD (coronary artery disease) I25.10 ; Chronic pain G89.29 ; Anxiety F41.9 ; Dysuria R30.0 and Pain of left lower leg M79.662 [place] [address] [address] Jul, [place] [address] [address] Jun, Diabetic polyneuropathy associated with type 2 diabetes mellitus E11.42 and 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 [place] [address] [address] Jun, [address] [address] Jun, Neuropathy G62.9 ; Arthritis M19.90 ; Leg cramps R25.2 and Anxiety F41.9 [place] [address] [address] May, [place] [address] [address] May, [place] [address] [address] May, Diabetic polyneuropathy associated with type 2 diabetes mellitus E11.42 [place] [address] [address] May, [place] [address] [address] Apr, [place] [address] [address] Apr, [address] [place] [address] 17 Apr, 2015 [facility] [address] [place] [id number] [place] [address] 14 Apr, 2015 [facility] [address] [place] [id number] [place] [address] Apr, [facility] [address] [place] [id number] [place] [address] Apr, [facility] [address] [place] [id number] [place] [address] Apr, Diabetes with renal manifestations, type II or unspecified type, uncontrolled 250.42 ; Coronary atherosclerosis of unspecified type of vessel, [place] or graft 414.00 ; Polyneuropathy in diabetes 357.2 ; Hypertension 401.9 ; Anxiety 300.00 ; GERD (gastroesophageal reflux disease) 530.81 and Type 2 diabetes mellitus with pressure callus 250.80 [place] [address] [place] [id number] [place] [address] Mar, [facility] [address] [place] [id number] [place] [address] Mar, [facility] [address] [place] [id number] [place] [address] Mar, [facility] [address] [place] [id number] [place] [address] Mar, [place] [address] [place] [id number] [place] [address] Mar, Diabetes with renal manifestations, type II or unspecified type, uncontrolled 250.42 ; Coronary atherosclerosis of unspecified type of vessel, [place] or graft 414.00 ; Polyneuropathy in diabetes 357.2 ; Hypertension 401.9 and Anxiety 300.00 [facility] [address] [place] [id number] [place] [address] Mar, Routine gynecological examination V72.31 ; Breast cancer screening V76.10 ; Recurrent urinary tract infection 599.0 ; Mastodynia 611.71 and Tobacco abuse 305.1 [place] [address] [id number] [place] [address] Feb, [facility] [place] [facility] [address] [id number] [place] [address] Jan, [facility] [place] [facility] [address] [id number] [place] [address] Jan, [facility] [place] [facility] [address] [id number] [place] [address] Jan, [facility] [place] [facility] [address] [id number] [place] [address] Jan, [facility] [place] [facility] [address] [id number] [place] [address] December, [facility] [place] [facility] [address] [id number] [place] [address] December, [facility] [place] [facility] [address] [id number] [place] [address] Nov, [facility] [place] [facility] [address] [id number] [place] [address] Nov, [facility] [place] [facility] [address] [id number] [place] [address] Nov, [facility] [place] [facility] [address] [id number] [place] [address] Oct, [facility] [place] [facility] [address] [id number] [place] [address] 19 Oct, 2014 [facility] [place] [facility] [address] [id number] [place] [address] 16 Oct, 2014 [facility] [place] [facility] [address] [id number] [place] [address] 16 Oct, 2014 [facility] [place] [facility] [address] [id number] [place] [address] 16 Oct, 2014 [facility] [place] [facility] [address] [id number] [place] [address] 16 Oct, 2014 [facility] [place] [facility] [address] [id number] [place] [address] 16 Oct, 2014 [facility] [place] [facility] [address] [id number] [place] [address] 16 Oct, 2014 [facility] [place] [facility] [address] [id number] [place] [address] Oct, [facility] [place] [facility] [address] [id number] [place] [address] Oct, [facility] [place] [facility] [address] [id number] [place] [address] Oct, [facility] [place] [facility] [address] [id number] [place] [address] Oct, [facility] [place] [facility] [address] [id number] [place] [address] Oct, [facility] [place] [facility] [address] [id number] [place] [address] Oct, [facility] [place] [facility] [address] [id number] [place] [address] Oct, [facility] [place] [facility] [address] [id number] [place] [address] Oct, [facility] [place] [facility] [address] [id number] [place] [address] Oct, [facility] [place] [facility] [address] [id number] [place] [address] Oct, [facility] [place] [facility] [address] [id number] [place] [address] Sep, [facility] [place] [facility] [address] [id number] [place] [address] Sep, [facility] [place] [facility] [address] [id number] [place] [address] Sep, [facility] [place] [facility] [address] [id number] [place] [address] Sep, 2014 [facility] [place] [facility] [address] [id number] [place] [address] Sep, 2014 [facility] [place] [facility] [address] [id number] [place] [address] Sep, 2014 [facility] [place] [facility] [address] [id number] [place] [address] Sep, 2014 [facility] [place] [facility] [address] [id number] [place] [address] Sep, 2014 [facility] [place] [facility] [address] [id number] [place] [address] Sep, 2014 [facility] [place] [facility] [address] [facility] [id number] [place] [address] Sep, 2014 [facility] [place] [facility] [address] [id number] [place] [address] Sep, 2014 [facility] [place] [facility] [address] [id number] [place] [address] Sep, 2014 [facility] [place] [facility] [address] [facility] [id number] [place] [address] Sep, 2014 [facility] [place] [facility] [address] [facility] [id number] [place] [address] Sep, 2014 [facility] [place] [facility] [address] [facility] [id number] [place] [address] Sep, 2014 [facility] [place] [facility] [address] [id number] [place] [address] Aug, [facility] [place] [facility] [address] [id number] [place] [address] Aug, [facility] [place] [facility] [address] [facility] [id number] [place] [address] Aug, [facility] [place] [facility] [address] [facility] [id number] [place] [address] Aug, [facility] [address] [id number] [place] [address] Aug, [facility] [place] [facility] [address] [id number] [place] [address] Aug, [facility] [place] [facility] [address] [id number] [place] [address] Aug, [facility] [place] [facility] [address] [id number] [place] [address] Aug, [facility] [place] [facility] [address] [id number] [place] [address] Aug, [facility] [place] [facility] [address] [id number] [place] [address] Aug, [facility] [address] [id number] [place] [address] Aug, [facility] [place] [facility] [address] [id number] [place] [address] Aug, [facility] [place] [facility] [address] [id number] [place] [address] Aug, [facility] [place] [facility] [address] [id number] [place] [address] Jul, [facility] [place] [facility] [address] [id number] [place] [address] Jul, [facility] [place] [facility] [address] [id number] [place] [address] 30 Jul, 2014 [facility] [place] [facility] [address] [id number] [place] [address] Jul, [facility] [place] [facility] [address] [id number] [place] [address] Jul, [facility] [place] [facility] [address] [id number] [place] [address] Jul, [facility] [place] [facility] [address] [id number] [place] [address] Jul, [facility] [place] [facility] [address] [id number] [place] [address] Jul, [facility] [place] [facility] [address] [id number] [place] [address] Jun, [facility] [place] [facility] [address] [id number] [place] [address] Jun, [facility] [place] [facility] [address] [id number] [place] [address] Jun, [facility] [place] [facility] [address] [id number] [place] [address] Jun, [facility] [place] [facility] [address] [id number] [place] [address] Jun, [facility] [place] [facility] [address] [id number] [place] [address] Jun, [facility] [place] [facility] [address] [id number] [place] [address] Jun, [facility] [place] [facility] [address] [id number] [place] [address] Jun, [facility] [place] [facility] [address] [id number] [place] [address] Jun, [facility] [place] [facility] [address] [id number] [place] [address] Jun, [facility] [place] [facility] [address] [id number] [place] [address] Jun, [facility] [place] [facility] [address] [id number] [place] [address] 14 Jun, 2014 [facility] [place] [facility] [address] [id number] [place] [address] 13 Jun, 2014 [facility] [place] [facility] [address] [id number] [place] [address] Jun, [facility] [place] [facility] [address] [id number] [place] [address] Jun, [facility] [place] [facility] [address] [id number] [place] [address] Jun, [facility] [place] [facility] [address] [id number] [place] [address] May, [facility] [place] [facility] [address] [id number] [place] [address] May, [facility] [place] [facility] [address] [id number] [place] [address] May, [facility] [place] [facility] [address] [id number] [place] [address] May, [facility] [place] [facility] [address] [id number] [place] [address] May, [facility] [place] [facility] [address] [id number], [place] [address] May, [facility] [place] [facility] [address] [id number], [place] [address] May, [facility] [place] [facility] [address] [id number], [place] [address] May, [facility] [place] [facility] [address] [id number], [place] [address] May, [facility] [place] [facility] [address] [id number], [place] [address] Apr, [facility] [place] [facility] [address] [id number] [place] [address] Apr, [facility] [place] [facility] [address] [id number], [place] [address] Apr, [facility] [place] [facility] [address] [id number], [place] [address] Apr, [facility] [place] [facility] [address] [id number] [place] [address] Mar, [facility] [place] [facility] [address] [id number] [place] [address] Mar, [facility] [place] [facility] [address] [id number] [place] [address] Mar, [facility] [place] [facility] [address] [id number] [place] [address] Mar, [facility] [place] [facility] [address] [id number] [place] [address] Feb, [facility] [place] [facility] [address] [id number] [place] [address] Feb, [facility] [place] [facility] [address] [id number] [place] [address] Jan, [facility] [place] [facility] [address] [id number] [place] [address] Jan, [facility] [place] [facility] [address] [id number] [place] [address] Jan, [facility] [place] [facility] [address] [id number] [place] [address] Jan, [facility] [place] [facility] [address] [id number] [place] [address] Jan, [facility] [place] [facility] [address] [id number] [place] [address] Jan, [facility] [place] [facility] [address] [id number] [place] [address] Jan, [facility] [place] [facility] [address] [id number] [place] [address] Jan, [facility] [place] [facility] [address] [id number] [place] [address] Jan, [facility] [place] [facility] [address] [address] [id number] [place] [address] Jan, [facility] [place] [facility] [address] [id number] [place] [address] Jan, [facility] [place] [facility] [address] [id number] [place] [address] Jan, [facility] [place] [facility] [address] [id number] [place] [address] Jan, [facility] [place] [facility] [address] [id number] [place] [address] December, [facility] [place] [facility] [address] [id number] [place] [address] December, [facility] [place] [facility] [address] [id number] [place] [address] December, [facility] [place] [facility] [address] [id number] [place] [address] December, [facility] [place] [facility] [address] [id number] [place] [address] December, [facility] [place] [facility] [address] [id number] [place] [address] Nov, [facility] [place] [facility] [address] [id number] [place] [address] Nov, [facility] [place] [facility] [address] [id number] [place] [address] Nov, [facility] [place] [facility] [address] [id number] [place] [address] Nov, [facility] [place] [facility] [address] [id number] [place] [address] Nov, [facility] [place] [facility] [address] [id number] [place] [address] Nov, [facility] [place] [facility] [address] [id number] [place] [address] Nov, [facility] [place] [facility] [address] [id number], [place] [address] Nov, [facility] [place] [facility] [address] [id number] [place] [address] Nov, [facility] [place] [facility] [address] [id number] [place] [address] Nov, [facility] [place] [facility] [address] [id number] [place] [address] Jun, [facility] [place] [facility] [address] [id number] [place] [address] Jun, [facility] [place] [facility] [address] [id number] [place] [address] May, [facility] [place] [facility] [address] [id number] [place] [address] May, [facility] [place] [facility] [address] [id number] [place] [address] May, [facility] [place] [facility] [address] [id number] [place] [address] May, [facility] [place] [facility] [address] [id number] [place] [address] May, [facility] [place] [facility] [address] [id number] [place] [address] May, [facility] [place] [facility] [address] [id number], [place] [address] May, [facility] [place] [facility] [address] [id number], [place] [address] May, [facility] [place] [facility] [address] [id number] [place] [address] May, [facility] [place] [facility] [address] [id number] [place] [address] Apr, [facility] [place] [facility] [address] [id number] [place] [address] Apr, [facility] [place] [facility] [address] [id number] [place] [address] 25 Apr, 2011 [facility] [address] [id number] [place] [address] 21 Apr, 2012 [facility] [address] [id number] [place] [address] 20 Apr, 2012 [facility] [address] [id number] [place] [address] 19 Apr, 2012 [facility] [address] [id number] [place] [address] 05 Apr, 2012 [facility] [address] [id number] [place] [address] 04 Apr, 2012 [facility] [address] [id number] [place] [address] Mar, [facility] [address] [id number] [place] [address] Mar, [facility] [address] [id number] [place] [address] Mar, [facility] [address] [id number] [place] [address] Mar, [facility] [address] [id number] [place] [address] Mar, [address] [id number] Mar, [facility] [address] [id number] [place] [address] Mar, [facility] [address] [id number] [place] [address] Feb, [facility] [address] [id number] [place] [address] Feb, [facility] [address] [id number] [place] [address] Feb, [facility] [place] [facility] [address] [id number] [place] [address] Feb, [facility] [place] [facility] [address] [id number] [place] [address] Feb, [facility] [place] [facility] [address] [id number] [place] [address] Feb, [facility] [place] [facility] [address] [id number] [place] [address] Jan, [facility] [place] [facility] [address] [id number] [place] [address] Jan, [facility] [place] [facility] [address] [id number] [place] [address] Jan, [facility] [place] [facility] [address] [id number] [place] [address] Jan, [facility] [place] [facility] [address] [id number] [place] [address] Jan, [facility] [place] [facility] [address] [id number] [place] [address] Jan, [facility] [place] [facility] [address] [id number] [place] [address] Jan, [facility] [place] [facility] [address] [id number] [place] [address] December, [facility] [place] [facility] [address] [id number] [place] [address] December, [facility] [place] [facility] [address] [id number] [place] [address] December, [facility] [place] [facility] [address] [id number] [place] [address] Nov, [facility] [place] [facility] [address] [id number] [place] [address] Nov, [facility] [place] [facility] [address] [id number] [place] [address] Nov, [facility] [place] [facility] [address] [id number] [place] [address] Nov, [facility] [place] [facility] [address] [id number] [place] [address] Nov, [facility] [place] [facility] [address] [id number] [place] [address] 18 Nov, 2011 [facility] [place] [facility] [address] [id number] [place] [address] 17 Nov, 2011 [facility] [place] [facility] [address] [id number] [place] [address] Nov, [facility] [place] [facility] [address] [id number] [place] [address] Oct, [facility] [place] [facility] [address] [id number] [place] [address] Oct, [facility] [place] [facility] [address] [id number] [place] [address] Oct, [facility] [place] [facility] [address] [id number] [place] [address] Oct, [facility] [place] [facility] [address] [id number] [place] [address] Sep, [facility] [place] [facility] [address] [id number] [place] [address] Sep, [facility] [place] [facility] [address] [id number] [place] [address] Sep, [facility] [place] [facility] [address] [id number] [place] [address] Aug, [facility] [place] [facility] [address] [id number] [place] [address] Aug, [facility] [place] [facility] [address] [id number] [place] [address] Aug, [facility] [place] [facility] [address] [id number] [place] [address] 04 Aug, 2011 [facility] [address] [id number] [place] [address] 15 Jul, 2011 [facility] [address] [id number] [place] [address] 15 Jul, 2011 [facility] [address] [id number] [place] [address] 15 Jul, 2011 [facility] [address] [id number] [place] [address] 30 Jun, 2011 [facility] [address] [id number] [place] [address], [place] [address] 22 Jun, 2011 [facility] [address] [id number] [place] [address] 15 Jun, 2011 [facility] [address] [facility] [id number] [place] [address] 14 Jun, 2011 [facility] [address] [id number] [place] [address] 14 Jun, 2011 [facility] [address] [facility] [id number] [place] [address] 14 Jun, 2011 [facility] [address] [facility] [id number] [place] [address] May, [facility] [address] [id number] [place] [address] 31 May, 2011 [facility] [address] [id number] [place] [address] May, [facility] [address] [id number] [place] [address] Apr, [facility] [address] [id number] [place] [address] Mar, [facility] [address] [id number] [place] [address] Aug, IMMUNIZATIONS No Known Immunizations SOCIAL HISTORY Never Assessed REASON FOR VISIT PLAN OF CARE VITAL SIGNS Height 68 in 2014-09-30 Weight 241.9 lbs 2014-09-30 Temperature 97.9 degrees Fahrenheit 2014-09-30 Heart Rate 120 bpm 2014-09-30 Respiratory Rate 20 2014-09-30 Blood pressure systolic 164 mmHg 2014-09-30 Blood pressure diastolic 94 mmHg 2014-09-30 MEDICATIONS Unknown Medications RESULTS No Results PROCEDURES Procedure Date Ordered Result Body Site COMPLETE CBC W/AUTO DIFF WBC Sep 30, 2014 URINE CULTURE/COLONY COUNT Sep 30, 2014 GLYCATED HEMOGLOBIN TEST Sep 30, 2014 MICROALBUMIN, QUANTITATIVE Sep 30, 2014 URINALYSIS, AUTO W/SCOPE Sep 30, 2014 COMPREHEN METABOLIC PANEL Sep 30, 2014 VENIPUNCT, ROUTINE* Sep 30, 2014 INSTRUCTIONS MEDICATIONS ADMINISTERED No Known Medications [...] Coronary atherosclerosis of unspecified type of vessel, [place] or graft Surgical History partial hysterectomy 1991 Surgical History heart cath 2004, 2011 Hospitalization History minor [place] 2004 Hospitalization History [facility] for pancreatitis 11/2010 Hospitalization History [facility] for a stroke 12/2011 Hospitalization History gui infection-Shira Colby 05/2016 Hospitalization History [facility]- Heart failure, uncontrolled Hyperglycemia. Discharged 06/27/17 06/25/17
--- OUTSIDE RECORDS SUMMARY | 2019-03-03 10:56 | XMS REPORT ---
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 Name Role Phone ALBIN RENAE Unavailable PROBLEMS Type Condition ICD9-CM Code [id number] Code Onset Dates Condition Status SNOMED Code Problem Dyspepsia R10.13 Active 620867539 Problem intermediate 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 Active 068843296 Problem Essential hypertension I10 Active 52497480 Problem Chronic pain G89.29 Active 11886670 Problem Skin infection L08.9 Active 656089999 Problem Allergic rhinitis J30.9 Active 15831392 Problem Non-healing skin lesion L98.9 Active 35968962 Problem Type 2 diabetes mellitus with other skin ulcer E11.622 Active 92282187 Problem Cough R05 Active 770600644 Problem Ulcer of right lower leg, with unspecified severity L97.919 Active 378803666 Problem Left ventricular enlargement I51.7 Active 817028182 Problem Type 2 diabetes mellitus with other circulatory complications E11.59 Active 57706516 Problem Foot swelling M79.89 Active 099416560 Problem CAD (coronary artery disease) I25.10 Active 32046676 Problem Urinary incontinence R32 Active 575069652 Problem Stress incontinence in female N39.3 Active 91453974 Problem Diabetic polyneuropathy associated with type 2 diabetes mellitus E11.42 Active 96099993 Problem Anxiety F41.9 Active 23510188 Problem Atrial enlargement, left I51.7 Active 46738785381284 Problem Pulmonary HTN I27.2 Active 18638154 Problem Neuropathy G62.9 Active 599391665 Problem Mixed hyperlipidemia E78.2 Active 078464716 ALLERGIES No Information ENCOUNTERS Encounter Location Date Diagnosis [address] [address] Jan, Diabetic polyneuropathy associated with type 2 diabetes mellitus E11.[address] [address] [facility] [address] [address] Jan, Wheezing R06.2 and Cough R05 [facility] [address] [address] 10 Jan, 2019 Cough R05 ; Bronchitis J40 ; Wheezing R06.2 ; Unspecified superficial injury of left lesser toe(s), subsequent encounter S90.935D and Type 2 diabetes mellitus with other circulatory complications E11.59 [facility] [address] [address] Jan, [facility] [address] [address] December, [facility] [place] [address] [address] December, [address] [address] December, Encounter for removal of sutures Z48.02 [facility] [place] [address] [address] December, Diabetic polyneuropathy associated with type 2 diabetes mellitus E11.42 [facility] [place] [address] [address] December, [address] [address] December, Infection of toe L08.[address] [address] December, [place] [address] [place] [address] December, Diabetic polyneuropathy associated with type 2 diabetes mellitus E11.42 ; intermission coordinator 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 ; Urinary incontinence R32 and Type 2 diabetes mellitus with other circulatory complications E11.59 [place] [address] [place] [address] December, Essential hypertension I10 ; Type 2 diabetes mellitus with other circulatory complications E11.59 and Dizziness R42 [place] [address] [place] [address] December, Dizziness R42 ; Essential hypertension I10 and Type 2 diabetes mellitus with other circulatory complications E11.[address] [address] Nov, Breast lump N63.[address] [address] Nov, Breast lump N63.[address] [address] Nov, Breast lump N63.[address] [address] Nov, [address] [address] Nov, Mixed hyperlipidemia E78.2 ; Essential hypertension I10 and intermission coordinator 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 [address] Nov, Essential hypertension I10 ; Breast cancer screening Z12.31 ; intermission coordinator 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 ; Mixed hyperlipidemia E78.2 ; Dysuria R30.0 and Type 2 diabetes mellitus with other circulatory complications E11.59 [place] [address] [address] May, [place] [address] [place] [address] Apr, [place] [address] [place] [address] Apr, Essential hypertension I10 and Diabetic polyneuropathy associated with type 2 diabetes mellitus E11.42 [place] [address] [place] [address] Mar, [place] [address] [place] [id number] [place] [address] Feb, Onychomycosis B35.1 ; Neuropathy G62.9 and Diabetic polyneuropathy associated with type 2 diabetes mellitus E11.42 [place] [address] [place] [address] [address] Feb, [facility] [address] [place] [address] December, [facility] [address] [place] [address] [address] [address] December, Herpes zoster without complication B02.9 ; Onychia of toe of left foot L03.032 ; Ingrowing toenail with infection L60.0 and Diabetic polyneuropathy associated with type 2 diabetes mellitus E11.42 [facility] [address], [place] [address] December, [place] [address] [place] [id number] [place] [address] Nov, [place] [address] [place] [id number] [place] [address] Oct, Diabetic polyneuropathy associated with type 2 diabetes mellitus E11.42 [place] [address], [place] [address] Oct, Essential hypertension I10 and Diabetic polyneuropathy associated with type 2 diabetes mellitus E11.42 [place] [address] [place] [address] Sep, Diabetic polyneuropathy associated with type 2 diabetes mellitus E11.42 ; Type 2 diabetes mellitus with other skin ulcer E11.622 ; Chronic pain G89.29 ; Anxiety F41.9 ; Essential hypertension I10 ; Hypoxia R09.02 ; Atrial enlargement, left I51.7 and Left ventricular enlargement I51.7 [facility] [address], [place] [address] Sep, [facility] [address] [place] [id number] [place] [address] Aug, [facility] [address], [place] [address] Jul, [place] [address] [place] [address] Jul, [facility] [address] [place] [id number] [place] [address] Jul, CAD (coronary artery disease) I25.10 ; Essential hypertension I10 ; Pulmonary HTN I27.2 ; Atrial enlargement, left I51.7 and Left ventricular enlargement I51.7 [place] [address] [place] [id number] [place] [address] Jun, [facility] [address] [place] [id number] [place] [address] Jun, [place] [address] [place] [id number] [place] [address] Jun, [place] [address] [place] [id number] [place] [address] Jun, [place] [address] [place] [id number] [place] [address] Jun, Diabetic polyneuropathy associated with type 2 diabetes mellitus E11.42 ; Type 2 diabetes mellitus with other skin ulcer E11.622 ; Chronic pain G89.29 ; Anxiety F41.9 ; Essential hypertension I10 ; Ulcer of right lower leg, with unspecified severity L97.919 ; Pulmonary HTN I27.2 ; Hypoxia R09.02 ; Atrial enlargement, left I51.7 and Left ventricular enlargement I51.7 [place] [address], [place] [address] May, [place] [address], [place] [address] Apr, Diabetic polyneuropathy associated with type 2 diabetes mellitus E11.42 ; Type 2 diabetes mellitus with other skin ulcer E11.622 ; Chronic pain G89.29 ; Anxiety F41.9 ; Cough R05 ; Essential hypertension I10 and Ulcer of right lower leg, with unspecified severity L97.919 [place] [address], [place] [address] Mar, Diabetic polyneuropathy associated with type 2 diabetes mellitus E11.42 ; Chronic pain G89.29 ; Anxiety F41.9 ; Type 2 diabetes mellitus with other skin ulcer E11.622 ; Cough R05 ; Essential hypertension I10 and Ulcer of right lower leg, with unspecified severity L97.919 [place] [address] [place] [id number] [place] [address] Feb, [place] [address] [address] Feb, Diabetic polyneuropathy associated with type 2 diabetes mellitus E11.42 ; Chronic pain G89.29 ; Anxiety F41.9 ; Type 2 diabetes mellitus with other skin ulcer E11.622 ; Cough R05 and Essential hypertension I10 [place] [address] [address] Jan, Chronic pain G89.29 ; Anxiety F41.9 and Foot swelling M79.89 [place] [address] [address] December, Chronic pain G89.29 ; Anxiety F41.9 and Stress incontinence in female N39.3 [place] [address] [address] December, [place] [address] [place] [id number] [place] [address] Nov, [place] [address] [place] [id number] [place] [address] Nov, [place] [address] [place] [id number] [place] [address] Nov, [place] [address] [address] Nov, Chronic pain G89.29 ; Anxiety F41.9 ; Non-healing skin lesion L98.9 and Type 2 diabetes mellitus with other skin ulcer E11.622 [place] [address] [address] Nov, Diabetic polyneuropathy associated with type 2 diabetes mellitus E11.42 [facility] [address], [place] [address] Nov, [facility] [address], [place] [address] Nov, [facility] [address], [place] [address] Nov, [facility] [address] [place] [id number] [place] [address] Nov, [facility] [address] [place] [id number] [place] [address] Nov, Diabetic polyneuropathy associated with type 2 diabetes mellitus E11.42 [facility] [address] [place] [address] Oct, Diabetic polyneuropathy associated with type 2 diabetes mellitus E11.42 ; Essential hypertension I10 ; Chronic pain G89.29 ; Anxiety F41.9 and Skin infection L08.9 [facility] [address], [place] [address] Oct, [facility] [address] [place] [address] Sep, [facility] [address], [place] [address] Sep, Diabetic polyneuropathy associated with type 2 diabetes mellitus E11.42 ; Chronic pain G89.29 ; Anxiety F41.9 and Allergic rhinitis J30.9 [facility] [address], [place] [address] Aug, Diabetic polyneuropathy associated with type 2 diabetes mellitus E11.42 ; Chronic pain G89.29 ; Anxiety F41.9 and Allergic rhinitis J30.9 [facility] [address], [place] [address] Jul, [facility] [address] [place] [id number] [place] [address] Jul, Diabetic polyneuropathy associated with type 2 diabetes mellitus E11.42 ; Dyspepsia R10.13 ; Essential hypertension I10 ; intermission coordinator 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 ; CAD (coronary artery disease) I25.10 ; Chronic pain G89.29 ; Anxiety F41.9 ; Dysuria R30.0 and Pain of left lower leg M79.662 [place] [address] [address] Jul, [place] [address] [address] Jun, Diabetic polyneuropathy associated with type 2 diabetes mellitus E11.42 and intermission coordinator 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 [place] [address] [address] Jun, [address] [address] Jun, Neuropathy G62.9 ; Arthritis M19.90 ; Leg cramps R25.2 and Anxiety F41.9 [place] [address] [address] May, [place] [address] [address] May, [place] [address] [address] May, Diabetic polyneuropathy associated with type 2 diabetes mellitus E11.42 [place] [address] [address] May, [place] [address] [address] Apr, [place] [address] [address] Apr, [address] [place] [address] 17 Apr, 2015 [facility] [address] [place] [id number] [place] [address] 14 Apr, 2015 [facility] [address] [place] [id number] [place] [address] Apr, [facility] [address] [place] [id number] [place] [address] Apr, [facility] [address] [place] [id number] [place] [address] Apr, Diabetes with renal manifestations, type II or unspecified type, uncontrolled 250.42 ; Coronary atherosclerosis of unspecified type of vessel, qagan tayagungin or graft 414.00 ; Polyneuropathy in diabetes 357.2 ; Hypertension 401.9 ; Anxiety 300.00 ; GERD (gastroesophageal reflux disease) 530.81 and Type 2 diabetes mellitus with pressure callus 250.80 [place] [address] [place] [id number] [place] [address] Mar, [facility] [address] [place] [id number] [place] [address] Mar, [facility] [address] [place] [id number] [place] [address] Mar, [facility] [address] [place] [id number] [place] [address] Mar, [place] [address] [place] [id number] [place] [address] Mar, Diabetes with renal manifestations, type II or unspecified type, uncontrolled 250.42 ; Coronary atherosclerosis of unspecified type of vessel, qagan tayagungin or graft 414.00 ; Polyneuropathy in diabetes 357.2 ; Hypertension 401.9 and Anxiety 300.00 [facility] [address] [place] [id number] [place] [address] Mar, Routine gynecological examination V72.31 ; Breast cancer screening V76.10 ; Recurrent urinary tract infection 599.0 ; Mastodynia 611.71 and Tobacco abuse 305.1 [place] [address] [id number] [place] [address] Feb, [facility] [place] [facility] [address] [id number] [place] [address] Jan, [facility] [place] [facility] [address] [id number] [place] [address] Jan, [facility] [place] [facility] [address] [id number] [place] [address] Jan, [facility] [place] [facility] [address] [id number] [place] [address] Jan, [facility] [place] [facility] [address] [id number] [place] [address] December, [facility] [place] [facility] [address] [id number] [place] [address] December, [facility] [place] [facility] [address] [id number] [place] [address] Nov, [facility] [place] [facility] [address] [id number] [place] [address] Nov, [facility] [place] [facility] [address] [id number] [place] [address] Nov, [facility] [place] [facility] [address] [id number] [place] [address] Oct, [facility] [place] [facility] [address] [id number] [place] [address] 19 Oct, 2014 [facility] [place] [facility] [address] [id number] [place] [address] 16 Oct, 2014 [facility] [place] [facility] [address] [id number] [place] [address] 16 Oct, 2014 [facility] [place] [facility] [address] [id number] [place] [address] 16 Oct, 2014 [facility] [place] [facility] [address] [id number] [place] [address] 16 Oct, 2014 [facility] [place] [facility] [address] [id number] [place] [address] 16 Oct, 2014 [facility] [place] [facility] [address] [id number] [place] [address] 16 Oct, 2014 [facility] [place] [facility] [address] [id number] [place] [address] Oct, [facility] [place] [facility] [address] [id number] [place] [address] Oct, [facility] [place] [facility] [address] [id number] [place] [address] Oct, [facility] [place] [facility] [address] [id number] [place] [address] Oct, [facility] [place] [facility] [address] [id number] [place] [address] Oct, [facility] [place] [facility] [address] [id number] [place] [address] Oct, [facility] [place] [facility] [address] [id number] [place] [address] Oct, [facility] [place] [facility] [address] [id number] [place] [address] Oct, [facility] [place] [facility] [address] [id number] [place] [address] Oct, [facility] [place] [facility] [address] [id number] [place] [address] Oct, [facility] [place] [facility] [address] [id number] [place] [address] Sep, [facility] [place] [facility] [address] [id number] [place] [address] Sep, [facility] [place] [facility] [address] [id number] [place] [address] Sep, [facility] [place] [facility] [address] [id number] [place] [address] Sep, 2014 [facility] [place] [facility] [address] [id number] [place] [address] Sep, 2014 [facility] [place] [facility] [address] [id number] [place] [address] Sep, 2014 [facility] [place] [facility] [address] [id number] [place] [address] Sep, 2014 [facility] [place] [facility] [address] [id number] [place] [address] Sep, 2014 [facility] [place] [facility] [address] [id number] [place] [address] Sep, 2014 [facility] [place] [facility] [address] [facility] [id number] [place] [address] Sep, 2014 [facility] [place] [facility] [address] [id number] [place] [address] Sep, 2014 [facility] [place] [facility] [address] [id number] [place] [address] Sep, 2014 [facility] [place] [facility] [address] [facility] [id number] [place] [address] Sep, 2014 [facility] [place] [facility] [address] [facility] [id number] [place] [address] Sep, 2014 [facility] [place] [facility] [address] [facility] [id number] [place] [address] Sep, 2014 [facility] [place] [facility] [address] [id number] [place] [address] Aug, [facility] [place] [facility] [address] [id number] [place] [address] Aug, [facility] [place] [facility] [address] [facility] [id number] [place] [address] Aug, [facility] [place] [facility] [address] [facility] [id number] [place] [address] Aug, [facility] [address] [id number] [place] [address] Aug, [facility] [place] [facility] [address] [id number] [place] [address] Aug, [facility] [place] [facility] [address] [id number] [place] [address] Aug, [facility] [place] [facility] [address] [id number] [place] [address] Aug, [facility] [place] [facility] [address] [id number] [place] [address] Aug, [facility] [place] [facility] [address] [id number] [place] [address] Aug, [facility] [address] [id number] [place] [address] Aug, [facility] [place] [facility] [address] [id number] [place] [address] Aug, [facility] [place] [facility] [address] [id number] [place] [address] Aug, [facility] [place] [facility] [address] [id number] [place] [address] Jul, [facility] [place] [facility] [address] [id number] [place] [address] Jul, [facility] [place] [facility] [address] [id number] [place] [address] 30 Jul, 2014 [facility] [place] [facility] [address] [id number] [place] [address] Jul, [facility] [place] [facility] [address] [id number] [place] [address] Jul, [facility] [place] [facility] [address] [id number] [place] [address] Jul, [facility] [place] [facility] [address] [id number] [place] [address] Jul, [facility] [place] [facility] [address] [id number] [place] [address] Jul, [facility] [place] [facility] [address] [id number] [place] [address] Jun, [facility] [place] [facility] [address] [id number] [place] [address] Jun, [facility] [place] [facility] [address] [id number] [place] [address] Jun, [facility] [place] [facility] [address] [id number] [place] [address] Jun, [facility] [place] [facility] [address] [id number] [place] [address] Jun, [facility] [place] [facility] [address] [id number] [place] [address] Jun, [facility] [place] [facility] [address] [id number] [place] [address] Jun, [facility] [place] [facility] [address] [id number] [place] [address] Jun, [facility] [place] [facility] [address] [id number] [place] [address] Jun, [facility] [place] [facility] [address] [id number] [place] [address] Jun, [facility] [place] [facility] [address] [id number] [place] [address] Jun, [facility] [place] [facility] [address] [id number] [place] [address] 14 Jun, 2014 [facility] [place] [facility] [address] [id number] [place] [address] 13 Jun, 2014 [facility] [place] [facility] [address] [id number] [place] [address] Jun, [facility] [place] [facility] [address] [id number] [place] [address] Jun, [facility] [place] [facility] [address] [id number] [place] [address] Jun, [facility] [place] [facility] [address] [id number] [place] [address] May, [facility] [place] [facility] [address] [id number] [place] [address] May, [facility] [place] [facility] [address] [id number] [place] [address] May, [facility] [place] [facility] [address] [id number] [place] [address] May, [facility] [place] [facility] [address] [id number] [place] [address] May, [facility] [place] [facility] [address] [id number], [place] [address] May, [facility] [place] [facility] [address] [id number], [place] [address] May, [facility] [place] [facility] [address] [id number], [place] [address] May, [facility] [place] [facility] [address] [id number], [place] [address] May, [facility] [place] [facility] [address] [id number], [place] [address] Apr, [facility] [place] [facility] [address] [id number] [place] [address] Apr, [facility] [place] [facility] [address] [id number], [place] [address] Apr, [facility] [place] [facility] [address] [id number], [place] [address] Apr, [facility] [place] [facility] [address] [id number] [place] [address] Mar, [facility] [place] [facility] [address] [id number] [place] [address] Mar, [facility] [place] [facility] [address] [id number] [place] [address] Mar, [facility] [place] [facility] [address] [id number] [place] [address] Mar, [facility] [place] [facility] [address] [id number] [place] [address] Feb, [facility] [place] [facility] [address] [id number] [place] [address] Feb, [facility] [place] [facility] [address] [id number] [place] [address] Jan, [facility] [place] [facility] [address] [id number] [place] [address] Jan, [facility] [place] [facility] [address] [id number] [place] [address] Jan, [facility] [place] [facility] [address] [id number] [place] [address] Jan, [facility] [place] [facility] [address] [id number] [place] [address] Jan, [facility] [place] [facility] [address] [id number] [place] [address] Jan, [facility] [place] [facility] [address] [id number] [place] [address] Jan, [facility] [place] [facility] [address] [id number] [place] [address] Jan, [facility] [place] [facility] [address] [id number] [place] [address] Jan, [facility] [place] [facility] [address] [id number] [place] [address] Jan, [facility] [place] [facility] [address] [id number] [place] [address] Jan, [facility] [place] [facility] [address] [id number] [place] [address] Jan, [facility] [place] [facility] [address] [id number] [place] [address] Jan, [facility] [place] [facility] [address] [id number] [place] [address] December, [facility] [place] [facility] [address] [id number] [place] [address] December, [facility] [place] [facility] [address] [id number] [place] [address] December, [facility] [place] [facility] [address] [id number] [place] [address] December, [facility] [place] [facility] [address] [id number] [place] [address] December, [facility] [place] [facility] [address] [id number] [place] [address] Nov, [facility] [place] [facility] [address] [id number] [place] [address] Nov, [facility] [place] [facility] [address] [id number] [place] [address] Nov, [facility] [place] [facility] [address] [id number] [place] [address] Nov, [facility] [place] [facility] [address] [id number] [place] [address] Nov, [facility] [place] [facility] [address] [id number] [place] [address] Nov, [facility] [place] [facility] [address] [id number] [place] [address] Nov, [facility] [place] [facility] [address] [id number], [place] [address] Nov, [facility] [place] [facility] [address] [id number] [place] [address] Nov, [facility] [place] [facility] [address] [id number] [place] [address] Nov, [facility] [place] [facility] [address] [id number] [place] [address] Jun, [facility] [place] [facility] [address] [id number] [place] [address] Jun, [facility] [place] [facility] [address] [id number] [place] [address] May, [facility] [place] [facility] [address] [id number] [place] [address] May, [facility] [place] [facility] [address] [id number] [place] [address] May, [facility] [place] [facility] [address] [id number] [place] [address] May, [facility] [place] [facility] [address] [id number] [place] [address] May, [facility] [place] [facility] [address] [id number] [place] [address] May, [facility] [place] [facility] [address] [id number], [place] [address] May, [facility] [place] [facility] [address] [id number], [place] [address] May, [facility] [place] [facility] [address] [id number] [place] [address] May, [facility] [place] [facility] [address] [id number] [place] [address] Apr, [facility] [place] [facility] [address] [id number] [place] [address] Apr, [facility] [place] [facility] [address] [id number] [place] [address] 25 Apr, 2011 [facility] [address] [id number] [place] [address] 21 Apr, 2012 [facility] [address] [id number] [place] [address] 20 Apr, 2012 [facility] [address] [id number] [place] [address] 19 Apr, 2012 [facility] [address] [id number] [place] [address] 05 Apr, 2012 [facility] [address] [id number] [place] [address] 04 Apr, 2012 [facility] [address] [id number] [place] [address] Mar, [facility] [address] [id number] [place] [address] Mar, [facility] [address] [id number] [place] [address] Mar, [facility] [address] [id number] [place] [address] Mar, [facility] [address] [id number] [place] [address] Mar, [address] [id number] Mar, [facility] [address] [id number] [place] [address] Mar, [facility] [address] [id number] [place] [address] Feb, [facility] [address] [id number] [place] [address] Feb, [facility] [address] [id number] [place] [address] Feb, [facility] [place] [facility] [address] [id number] [place] [address] Feb, [facility] [place] [facility] [address] [id number] [place] [address] Feb, [facility] [place] [facility] [address] [id number] [place] [address] Feb, [facility] [place] [facility] [address] [id number] [place] [address] Jan, [facility] [place] [facility] [address] [id number] [place] [address] Jan, [facility] [place] [facility] [address] [id number] [place] [address] Jan, [facility] [place] [facility] [address] [id number] [place] [address] Jan, [facility] [place] [facility] [address] [id number] [place] [address] Jan, [facility] [place] [facility] [address] [id number] [place] [address] Jan, [facility] [place] [facility] [address] [id number] [place] [address] Jan, [facility] [place] [facility] [address] [id number] [place] [address] December, [facility] [place] [facility] [address] [id number] [place] [address] December, [facility] [place] [facility] [address] [id number] [place] [address] December, [facility] [place] [facility] [address] [id number] [place] [address] Nov, [facility] [place] [facility] [address] [id number] [place] [address] Nov, [facility] [place] [facility] [address] [id number] [place] [address] Nov, [facility] [place] [facility] [address] [id number] [place] [address] Nov, [facility] [place] [facility] [address] [id number] [place] [address] Nov, [facility] [place] [facility] [address] [id number] [place] [address] 18 Nov, 2011 [facility] [place] [facility] [address] [id number] [place] [address] 17 Nov, 2011 [facility] [place] [facility] [address] [id number] [place] [address] Nov, [facility] [place] [facility] [address] [id number] [place] [address] Oct, [facility] [place] [facility] [address] [id number] [place] [address] Oct, [facility] [place] [facility] [address] [id number] [place] [address] Oct, [facility] [place] [facility] [address] [id number] [place] [address] Oct, [facility] [place] [facility] [address] [id number] [place] [address] Sep, [facility] [place] [facility] [address] [id number] [place] [address] Sep, [facility] [place] [facility] [address] [id number] [place] [address] Sep, [facility] [place] [facility] [address] [id number] [place] [address] Aug, [facility] [place] [facility] [address] [id number] [place] [address] Aug, [facility] [place] [facility] [address] [id number] [place] [address] Aug, [facility] [place] [facility] [address] [id number] [place] [address] 04 Aug, 2011 [facility] [address] [id number] [place] [address] 15 Jul, 2011 [facility] [address] [id number] [place] [address] 15 Jul, 2011 [facility] [address] [id number] [place] [address] 15 Jul, 2011 [facility] [address] [id number] [place] [address] 30 Jun, 2011 [facility] [address] [id number] [place] [address], [place] [address] 22 Jun, 2011 [facility] [address] [id number] [place] [address] 15 Jun, 2011 [facility] [address] [facility] [id number] [place] [address] 14 Jun, 2011 [facility] [address] [id number] [place] [address] 14 Jun, 2011 [facility] [address] [facility] [id number] [place] [address] 14 Jun, 2011 [facility] [address] [facility] [id number] [place] [address] May, [facility] [address] [id number] [place] [address] 31 May, 2011 [facility] [address] [id number] [place] [address] May, [facility] [address] [id number] [place] [address] Apr, [facility] [address] [id number] [place] [address] Mar, [facility] [address] [id number] [place] [address] Aug, IMMUNIZATIONS No Known Immunizations SOCIAL HISTORY Never Assessed REASON FOR VISIT PLAN OF CARE VITAL SIGNS Height 68 in 2014-08-26 Weight 227.79 lbs 2014-08-26 Temperature 98.8 degrees Fahrenheit 2014-08-26 Heart Rate 100 bpm 2014-08-26 Respiratory Rate 20 2014-08-26 Blood pressure systolic 148 mmHg 2014-08-26 Blood pressure diastolic 86 mmHg 2014-08-26 MEDICATIONS Unknown Medications RESULTS No Results PROCEDURES Procedure Date Ordered Result Body Site COMPREHEN METABOLIC PANEL Aug 26, 2014 VENIPUNCT, ROUTINE* Aug 26, 2014 INSTRUCTIONS MEDICATIONS ADMINISTERED No Known Medications MEDICAL (GENERAL) HISTORY Type Description Date Medical History type II diabetes-dx in 1995 Medical History stroke-12/2011-[facility] Medical History cardiovascular disorder-CAD Medical History hyperlipidemia Medical History hypertension Medical History Diabetes with renal manifestations, type II or unspecified type, uncontrolled Medical History 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- Heart failure, uncontrolled Hyperglycemia. Discharged 06/27/17 06/25/17
--- OUTSIDE RECORDS SUMMARY | 2019-03-03 10:57 | XMS REPORT ---
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 Active 508553638 Problem Essential hypertension I10 Active 72809357 Problem Chronic pain G89.29 Active 06573737 Problem Skin infection L08.9 Active 062171816 Problem Allergic rhinitis J30.9 Active 27367158 Problem Non-healing skin lesion L98.9 Active 25956374 Problem Type 2 diabetes mellitus with other skin ulcer E11.622 Active 39260537 Problem Cough R05 Active 416652275 Problem Ulcer of right lower leg, with unspecified severity L97.919 Active 388590426 Problem Left ventricular enlargement I51.7 Active 389818990 Problem Type 2 diabetes mellitus with other circulatory complications E11.59 Active 15854788 Problem Foot swelling M79.89 Active 960015551 Problem CAD (coronary artery disease) I25.10 Active 65387175 Problem Urinary incontinence R32 Active 206794308 Problem Stress incontinence in female N39.3 Active 07598862 Problem Diabetic polyneuropathy associated with type 2 diabetes mellitus E11.42 Active 57106577 Problem Anxiety F41.9 Active 78173485 Problem Atrial enlargement, left I51.7 Active 43858538036303 Problem Pulmonary HTN I27.2 Active 84176990 Problem Neuropathy G62.9 Active 158827785 Problem Mixed hyperlipidemia E78.2 Active 863805499 ALLERGIES Substance Reaction Event Type Date Status Influenza Virus Vaccine Unknown Drug Allergy Nov, Active Amlodipine 5 Mg Tablet orthostatic hypotension. Non Drug Allergy Nov, Active Metformin 500 Mg Tablet,er Augusto.retention 24 Hr Unknown Non Drug Allergy Nov, Active ENCOUNTERS Encounter Location Date Diagnosis [address] [address] Jan, Diabetic polyneuropathy associated with type 2 diabetes mellitus E11.42 [facility] [address] [place] [address] Jan, [facility] [place] [address] [address] Jan, Wheezing R06.2 and Cough R05 [facility] [place] [address] [address] 10 Jan, 2019 Cough R05 ; Bronchitis J40 ; Wheezing R06.2 ; Unspecified superficial injury of left lesser toe(s), subsequent encounter S90.935D and Type 2 diabetes mellitus with other circulatory complications E11.59 [facility] [place] [address] [address] Jan, [facility] [place] [address] [address] December, [facility] [place] [address] [address] December, [facility] [place] [address] [address] December, Encounter for removal of sutures Z48.02 [facility] [place] [address] [place] [address] December, Diabetic polyneuropathy associated with type 2 diabetes mellitus E11.42 [facility] [place] [address] [address] December, [facility] [place] [address] [address] December, Infection of toe L08.9 [facility] [place] [address] [address] December, [facility] [address] [facility] [id number] [address] December, Diabetic polyneuropathy associated with type 2 diabetes mellitus E11.42 ; USP 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 ; Urinary incontinence R32 and Type 2 diabetes mellitus with other circulatory complications E11.59 [facility] [address] [facility] [id number] [address] December, Essential hypertension I10 ; Type 2 diabetes mellitus with other circulatory complications E11.59 and Dizziness R42 [place] [address] [address] December, Dizziness R42 ; Essential hypertension I10 and Type 2 diabetes mellitus with other circulatory complications E11.[address] [address] Nov, Breast lump N63.[address] [address] Nov, Breast lump N63.[address] [address] Nov, Breast lump N63.[address] [address] Nov, [address] [address] Nov, Mixed hyperlipidemia E78.2 ; Essential hypertension I10 and USP 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 [address] Nov, Essential hypertension I10 ; Breast cancer screening Z12.31 ; 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 ; Mixed hyperlipidemia E78.2 ; Dysuria R30.0 and Type 2 diabetes mellitus with other circulatory complications E11.59 [place] [address] [address] May, [place] [address] [address] Apr, [place] [address] [place] [id number] [address] Apr, Essential hypertension I10 and Diabetic polyneuropathy associated with type 2 diabetes mellitus E11.42 [place] [address] [address] Mar, [place] [address] [address] Feb, Onychomycosis B35.1 ; Neuropathy G62.9 and Diabetic polyneuropathy associated with type 2 diabetes mellitus E11.42 [facility] [address] [address] Feb, [facility] [address] [place] [id number] [place] [address] December, [facility] [address] [place] [id number] [place] [address] December, Herpes zoster without complication B02.9 ; Onychia of toe of left foot L03.032 ; Ingrowing toenail with infection L60.0 and Diabetic polyneuropathy associated with type 2 diabetes mellitus E11.42 [place] [address] [place] [id number] [place] [address] December, [place] [address] [place] [id number] [place] [address] Nov, [facility] [address] [place] [id number] [place] [address] Oct, Diabetic polyneuropathy associated with type 2 diabetes mellitus E11.42 [place] [address] [place] [address] Oct, Essential hypertension I10 and Diabetic polyneuropathy associated with type 2 diabetes mellitus E11.42 [place] [address] [place] [id number] [place] [address] Sep, Diabetic polyneuropathy associated with type 2 diabetes mellitus E11.42 ; Type 2 diabetes mellitus with other skin ulcer E11.622 ; Chronic pain G89.29 ; Anxiety F41.9 ; Essential hypertension I10 ; Hypoxia R09.02 ; Atrial enlargement, left I51.7 and Left ventricular enlargement I51.7 [facility] [address] [address] Sep, [facility] [address] [place] [id number] [address] Aug, [facility] [address] [place] [id number] [place] [address] Jul, [facility] [address] [address] Jul, [place] [address] [place] [id number] [place] [address] Jul, CAD (coronary artery disease) I25.10 ; Essential hypertension I10 ; Pulmonary HTN I27.2 ; Atrial enlargement, left I51.7 and Left ventricular enlargement I51.7 [place] [address] [place] [id number] [address] Jun, [place] [address] [place] [id number] [place] [address] Jun, [place] [address] [place] [id number] [place] [address] Jun, [place] [address] [place] [address] Jun, [place] [address] [address] Jun, Diabetic polyneuropathy associated with type 2 diabetes mellitus E11.42 ; Type 2 diabetes mellitus with other skin ulcer E11.622 ; Chronic pain G89.29 ; Anxiety F41.9 ; Essential hypertension I10 ; Ulcer of right lower leg, with unspecified severity L97.919 ; Pulmonary HTN I27.2 ; Hypoxia R09.02 ; Atrial enlargement, left I51.7 and Left ventricular enlargement I51.7 [place] [address] [address] May, [facility] [address] [address] Apr, Diabetic polyneuropathy associated with type 2 diabetes mellitus E11.42 ; Type 2 diabetes mellitus with other skin ulcer E11.622 ; Chronic pain G89.29 ; Anxiety F41.9 ; Cough R05 ; Essential hypertension I10 and Ulcer of right lower leg, with unspecified severity L97.919 [place] [address] [place] [id number] [place] [address] Mar, Diabetic polyneuropathy associated with type 2 diabetes mellitus E11.42 ; Chronic pain G89.29 ; Anxiety F41.9 ; Type 2 diabetes mellitus with other skin ulcer E11.622 ; Cough R05 ; Essential hypertension I10 and Ulcer of right lower leg, with unspecified severity L97.919 [place] [address] [place] [id number] [place] [address] Feb, [place] [address] [place] [id number] [place] [address] Feb, Diabetic polyneuropathy associated with type 2 diabetes mellitus E11.42 ; Chronic pain G89.29 ; Anxiety F41.9 ; Type 2 diabetes mellitus with other skin ulcer E11.622 ; Cough R05 and Essential hypertension I10 [place] [address] [place] [id number] [place] [address] Jan, Chronic pain G89.29 ; Anxiety F41.9 and Foot swelling M79.89 [place] [address] [place] [id number] [place] [address] December, Chronic pain G89.29 ; Anxiety F41.9 and Stress incontinence in female N39.3 [place] [address] [place] [id number] [place] [address] December, [place] [address] [place] [id number] [place] [address] Nov, [place] [address] [place] [id number] [place] [address] Nov, [place] [address] [place] [id number] [place] [address] Nov, [place] [address] [place] [id number] [place] [address] Nov, Chronic pain G89.29 ; Anxiety F41.9 ; Non-healing skin lesion L98.9 and Type 2 diabetes mellitus with other skin ulcer E11.622 [place] [address] [address] Nov, Diabetic polyneuropathy associated with type 2 diabetes mellitus E11.42 [facility] [address] [place] [address] Nov, [facility] [address] [place] [address] Nov, [facility] [address] [place] [id number] [place] [address] Nov, [facility] [address] [place] [address] Nov, [facility] [address] [place] [id number] [place] [address] Nov, Diabetic polyneuropathy associated with type 2 diabetes mellitus E11.42 [place] [address] [place] [id number] [place] [address] Oct, Diabetic polyneuropathy associated with type 2 diabetes mellitus E11.42 ; Essential hypertension I10 ; Chronic pain G89.29 ; Anxiety F41.9 and Skin infection L08.9 [place] [address] [place] [address] Oct, [facility] [address] [place] [address] Sep, [facility] [address] [place] [address] Sep, Diabetic polyneuropathy associated with type 2 diabetes mellitus E11.42 ; Chronic pain G89.29 ; Anxiety F41.9 and Allergic rhinitis J30.9 [facility] [address] [place] [address] Aug, Diabetic polyneuropathy associated with type 2 diabetes mellitus E11.42 ; Chronic pain G89.29 ; Anxiety F41.9 and Allergic rhinitis J30.9 [facility] [address] [place] [address] Jul, [place] [address] [place] [id number] [place] [address] Jul, Diabetic polyneuropathy associated with type 2 diabetes mellitus E11.42 ; Dyspepsia R10.13 ; Essential hypertension I10 ; USP 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 ; CAD (coronary artery disease) I25.10 ; Chronic pain G89.29 ; Anxiety F41.9 ; Dysuria R30.0 and Pain of left lower leg M79.662 [place] [address] [place] [id number] [place] [address] Jul, [place] [id number] [place] [address] Jun, Diabetic polyneuropathy associated with type 2 diabetes mellitus E11.42 and 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 [place] [id number] [place] [address] Jun, [place] [id number] [place] [address] Jun, Neuropathy G62.9 ; Arthritis M19.90 ; Leg cramps R25.2 and Anxiety F41.9 [place] [id number] [place] [address] May, [place] [id number] [place] [address] May, [place] [id number] [place] [address] May, Diabetic polyneuropathy associated with type 2 diabetes mellitus E11.42 [place] [id number] [place] [address] May, [place] [address] [place] [id number] [place] [address] Apr, [place] [id number] [place] [address] Apr, [facility] [address] [address] Apr, [facility] [address] [place] [address] Apr, [facility] [address] [place] [address] Apr, [facility] [address] [place] [id number] [place] [address] Apr, [facility] [address] [place] [address] Apr, Diabetes with renal manifestations, type II or unspecified type, uncontrolled 250.42 ; Coronary atherosclerosis of unspecified type of vessel, [place] or graft 414.00 ; Polyneuropathy in diabetes 357.2 ; Hypertension 401.9 ; Anxiety 300.00 ; GERD (gastroesophageal reflux disease) 530.81 and Type 2 diabetes mellitus with pressure callus 250.80 [facility] [address] [address] Mar, [facility] [address] [place] [id number] [place] [address] Mar, [facility] [address] [address] Mar, [place] [address] [address] Mar, [facility] [address] [address] Mar, Diabetes with renal manifestations, type II or unspecified type, uncontrolled 250.42 ; Coronary atherosclerosis of unspecified type of vessel, [place] or graft 414.00 ; Polyneuropathy in diabetes 357.2 ; Hypertension 401.9 and Anxiety 300.00 [facility] [address] [address] Mar, Routine gynecological examination V72.31 ; Breast cancer screening V76.10 ; Recurrent urinary tract infection 599.0 ; Mastodynia 611.71 and Tobacco abuse 305.1 [facility] [address] [facility] [id number] [address] Feb, [facility] [address] [facility] [id number] [address] Jan, [facility] [address] [facility] [id number] [address] Jan, [facility] [address] [facility] [id number] [address] Jan, [facility] [address] [facility] [id number] [address] Jan, [facility] [address] [facility] [id number] [address] December, [facility] [address] [address] December, [facility] [address] [facility] [id number] [address] Nov, [facility] [address] [place] [id number] [address] Nov, [facility] [id number] [address] Nov, [facility] [address] [id number] [address] Oct, [facility] [address] [facility] [id number] [address] 19 Oct, 2014 [facility] [address] [facility] [id number] [address] 16 Oct, 2014 [facility] [address] [facility] [id number] [address] 16 Oct, 2014 [facility] [address] [id number] [address] 16 Oct, 2014 [facility] [place] [facility] [address] [id number] [place] [address] 16 Oct, 2014 [facility] [place] [facility] [address] [id number] [place] [address] Oct, [facility] [place] [facility] [address] [id number] [place] [address] Oct, [facility] [place] [facility] [address] [id number] [place] [address] Oct, [facility] [place] [facility] [address] [id number] [place] [address] Oct, [facility] [place] [facility] [address] [id number] [place] [address] Oct, [facility] [place] [facility] [address] [id number] [place] [address] Oct, [facility] [place] [facility] [address] [id number] [place] [address] Oct, [facility] [place] [facility] [address] [id number] [place] [address] Oct, [facility] [place] [facility] [address] [id number] [place] [address] Oct, [facility] [place] [facility] [address] [id number] [place] [address] Oct, [facility] [place] [facility] [address] [id number] [place] [address] Oct, [facility] [place] [facility] [address] [id number] [place] [address] Oct, [facility] [place] [facility] [address] [id number] [place] [address] Sep, [facility] [place] [facility] [address] [id number] [place] [address] Sep, [facility] [place] [facility] [address] [id number] [place] [address] Sep, 2014 [facility] [place] [facility] [address] [id number] [place] [address] Sep, 2014 [facility] [place] [facility] [address] [id number] [place] [address] Sep, 2014 [facility] [place] [facility] [address] [facility] [id number] [place] [address] Sep, 2014 [facility] [place] [facility] [address] [id number] [place] [address] Sep, 2014 [facility] [place] [facility] [address] [id number] [place] [address] Sep, 2014 [facility] [place] [facility] [address] [facility] [id number] [place] [address] Sep, 2014 [facility] [place] [facility] [address] [facility] [id number] [place] [address] Sep, 2014 [facility] [place] [facility] [address] [facility] [id number] [place] [address] Sep, 2014 [facility] [place] [facility] [address] [facility] [id number] [place] [address] Sep, 2014 [facility] [place] [facility] [address] [facility] [id number] [place] [address] Sep, 2014 [facility] [place] [facility] [address] [facility] [id number] [place] [address] Sep, 2014 [facility] [place] [facility] [address] [facility] [id number] [place] [address] Sep, 2014 [facility] [place] [facility] [address] [facility] [id number] [place] [address] Aug, [facility] [place] [facility] [address] [facility] [id number] [place] [address] Aug, [facility] [place] [facility] [address] [facility] [id number] [place] [address] Aug, [facility] [place] [facility] [address] [id number] [place] [address] Aug, [facility] [place] [facility] [address] [id number] [place] [address] Aug, [facility] [place] [facility] [address] [id number] [place] [address] Aug, [facility] [place] [facility] [address] [id number] [place] [address] Aug, [facility] [place] [facility] [address] [id number] [place] [address] Aug, [facility] [place] [facility] [address] [id number] [place] [address] Aug, [facility] [place] [facility] [address] [id number] [place] [address] Aug, [facility] [place] [facility] [address] [id number] [place] [address] Aug, [facility] [place] [facility] [address] [id number] [place] [address] Aug, [facility] [place] [facility] [address] [id number] [place] [address] Aug, [facility] [place] [facility] [address] [id number] [place] [address] Jul, [facility] [place] [facility] [address] [id number] [address] Jul, [facility] [place] [facility] [address] [id number] [place] [address] 30 Jul, 2014 [facility] [place] [facility] [address] [id number] [place] [address] 30 Jul, 2014 [facility] [place] [facility] [address] [id number] [place] [address] Jul, [facility] [place] [facility] [address] [id number] [place] [address] Jul, [facility] [place] [facility] [address] [id number] [place] [address] Jul, [facility] [place] [facility] [address] [id number] [place] [address] Jul, [facility] [place] [facility] [address] [id number] [place] [address] Jun, [facility] [place] [facility] [address] [id number] [place] [address] Jun, [facility] [place] [facility] [address] [id number] [place] [address] Jun, [facility] [place] [facility] [address] [id number] [place] [address] Jun, [facility] [place] [facility] [address] [id number] [place] [address] Jun, [facility] [place] [facility] [address] [id number] [place] [address] Jun, [facility] [place] [facility] [address] [id number] [place] [address] Jun, [facility] [place] [facility] [address] [id number] [place] [address] Jun, [facility] [place] [facility] [address] [id number] [place] [address] Jun, [facility] [place] [facility] [address] [id number] [place] [address] Jun, [facility] [place] [facility] [address] [id number] [place] [address] Jun, [facility] [place] [facility] [address] [id number] [place] [address] Jun, [facility] [place] [facility] [address] [id number] [address] Jun, [facility] [place] [facility] [address] [id number] [place] [address] Jun, [facility] [place] [facility] [address] [id number] [place] [address] Jun, [facility] [place] [facility] [address] [id number] [place] [address] Jun, [facility] [place] [facility] [address] [id number] [place] [address] May, [facility] [place] [facility] [address] [id number] [place] [address] May, [facility] [place] [facility] [address] [id number] [place] [address] May, [facility] [place] [facility] [address] [id number] [place] [address] May, [facility] [place] [facility] [address] [id number] [place] [address] May, [facility] [place] [facility] [address] [id number] [place] [address] May, [facility] [place] [facility] [address] [id number] [place] [address] May, [facility] [place] [facility] [address] [id number] [place] [address] May, [facility] [place] [facility] [address] [id number] [place] [address] May, [facility] [place] [facility] [address] [id number] [place] [address] Apr, [facility] [place] [facility] [address] [id number] [place] [address] Apr, [facility] [place] [facility] [address] [id number] [place] [address] Apr, [facility] [place] [facility] [address] [id number] [place] [address] Apr, [facility] [place] [facility] [address] [address] [id number] [place] [address] Mar, [facility] [place] [facility] [address] [id number] [place] [address] Mar, [facility] [place] [facility] [address] [id number] [place] [address] Mar, [facility] [place] [facility] [address] [id number] [place] [address] Mar, [facility] [place] [facility] [address] [id number] [place] [address] Feb, [facility] [place] [facility] [address] [id number] [place] [address] Feb, [facility] [place] [facility] [address] [id number] [place] [address] Jan, [facility] [place] [facility] [address] [id number] [place] [address] Jan, [facility] [place] [facility] [address] [id number] [place] [address] Jan, [facility] [place] [facility] [address] [id number] [place] [address] Jan, [facility] [place] [facility] [address] [id number] [address] Jan, [facility] [place] [facility] [address] [id number] [place] [address] Jan, [facility] [place] [facility] [address] [id number] [place] [address] Jan, [facility] [place] [facility] [address] [id number] [place] [address] Jan, [facility] [place] [facility] [address] [id number] [place] [address] Jan, [facility] [place] [facility] [address] [id number] [place] [address] Jan, [facility] [address] [id number] [place] [address] Jan, [facility] [place] [facility] [address] [id number] [place] [address] Jan, [facility] [address] [id number] [place] [address] Jan, [facility] [place] [facility] [address] [id number] [place] [address] December, [facility] [address] [id number] [place] [address] December, [facility] [address] [id number] [place] [address] December, [facility] [place] [facility] [address] [id number] [place] [address] December, [facility] [address] [id number] [place] [address] December, [facility] [place] [facility] [address] [id number] [place] [address] Nov, [facility] [address] [id number] [place] [address] Nov, [facility] [place] [facility] [address] [id number] [place] [address] Nov, [facility] [place] [facility] [address] [id number] [place] [address] Nov, [facility] [place] [facility] [address] [id number] [place] [address] Nov, [facility] [place] [facility] [address] [id number] [place] [address] Nov, [facility] [place] [facility] [address] [id number] [place] [address] Nov, [facility] [place] [facility] [address] [id number] [place] [address] Nov, [facility] [place] [facility] [address] [id number] [place] [address] Nov, [facility] [place] [facility] [address] [id number] [place] [address] Nov, [facility] [place] [facility] [address] [id number] [place] [address] Jun, [facility] [place] [facility] [address] [id number] [place] [address] Jun, [facility] [place] [facility] [address] [id number] [place] [address] May, [facility] [place] [facility] [address] [id number] [place] [address] May, [facility] [place] [facility] [address] [id number] [place] [address] May, [facility] [place] [facility] [address] [id number] [place] [address] May, [facility] [place] [facility] [address] [id number] [place] [address] May, [facility] [place] [facility] [address] [facility] [id number] [place] [address] May, [facility] [place] [facility] [address] [id number] [place] [address] May, [facility] [place] [facility] [address] [id number] [place] [address] May, [facility] [place] [facility] [address] [id number] [place] [address] May, [facility] [place] [facility] [address] [facility] [id number] [place] [address] Apr, [facility] [place] [facility] [address] [id number] [place] [address] 25 Apr, 2012 [facility] [address] [id number] [place] [address] 25 Apr, 2012 [facility] [address] [id number] [place] [address] 21 Apr, 2012 [facility] [address] [id number] [place] [address] 20 Apr, 2012 [facility] [address] [id number] [place] [address] 19 Apr, 2012 [facility] [address] [id number] [place] [address] 05 Apr, 2012 [facility] [address] [id number] [place] [address] 04 Apr, 2012 [facility] [address] [id number] [place] [address] 28 Mar, 2012 [facility] [address] [id number] [place] [address] Mar, [facility] [address] [id number] [place] [address] 16 Mar, 2012 [facility] [address] [id number] [place] [address] 14 Mar, 2012 [facility] [address] [id number] [place] [address] Mar, [address] [id number] Mar, [facility] [address] [id number] [place] [address] Mar, [facility] [address] [id number] [place] [address] Feb, [facility] [address] [id number] [place] [address] Feb, [facility] [address] [id number] [place] [address] 16 Feb, 2012 [facility] [place] [facility] [address] [id number] [place] [address] Feb, [facility] [place] [facility] [address] [id number] [place] [address] Feb, [facility] [place] [facility] [address] [id number] [place] [address] Feb, [facility] [place] [facility] [address] [id number] [place] [address] Jan, [facility] [place] [facility] [address] [id number] [place] [address] Jan, [facility] [place] [facility] [address] [id number] [place] [address] Jan, [facility] [place] [facility] [address] [id number] [place] [address] Jan, [facility] [place] [facility] [address] [id number] [place] [address] Jan, [facility] [place] [facility] [address] [id number] [place] [address] Jan, [facility] [place] [facility] [address] [id number] [place] [address] Jan, [facility] [place] [facility] [address] [id number] [place] [address] December, [facility] [place] [facility] [address] [id number] [place] [address] December, [facility] [place] [facility] [address] [id number] [place] [address] December, [facility] [place] [facility] [address] [id number] [place] [address] Nov, [facility] [place] [facility] [address] [id number] [place] [address] Nov, [facility] [place] [facility] [address] [id number] [place] [address] Nov, [facility] [place] [facility] [address] [id number] [place] [address] Nov, [facility] [place] [facility] [address] [id number] [place] [address] Nov, [facility] [place] [facility] [address] [id number] [place] [address] 18 Nov, 2011 [facility] [place] [facility] [address] [id number] [place] [address] 17 Nov, 2011 [facility] [place] [facility] [address] [id number] [place] [address] Nov, [facility] [place] [facility] [address] [id number] [place] [address] Oct, [facility] [place] [facility] [address] [id number] [place] [address] Oct, [facility] [place] [facility] [address] [id number] [place] [address] Oct, [facility] [place] [facility] [address] [id number] [place] [address] Oct, [facility] [place] [facility] [address] [id number] [place] [address] Sep, [facility] [place] [facility] [address] [id number] [place] [address] Sep, [facility] [place] [facility] [address] [id number] [place] [address] Sep, [facility] [place] [facility] [address] [id number] [place] [address] Aug, [facility] [place] [facility] [address] [id number] [place] [address] Aug, [facility] [place] [facility] [address] [id number] [place] [address] Aug, [facility] [place] [facility] [address] [id number] [place] [address] Aug, [facility] [place] [facility] [address] [id number] [place] [address] 15 Jul, 2011 [facility] [place] [facility] [address] [id number] [place] [address] 15 Jul, 2011 [facility] [place] [facility] [address] [id number] [place] [address] 15 Jul, 2011 [facility] [place] [facility] [address] [id number] [place] [address] 30 Jun, 2011 [facility] [place] [facility] [address] [id number] [place] [address] 22 Jun, 2011 [facility] [place] [facility] [address] [id number] [place] [address] 15 Jun, 2011 [facility] [place] [facility] [address] [id number] [place] [address] 14 Jun, 2011 [facility] [place] [facility] [address] [id number] [place] [address] 14 Jun, 2011 [facility] [place] [facility] [address] [id number] [place] [address] 14 Jun, 2011 [facility] [place] [facility] [address] [id number] [place] [address] 31 May, 2011 [facility] [place] [facility] [address] [id number] [place] [address] 31 May, 2011 [facility] [place] [facility] [address] [id number] [place] [address] 28 May, 2011 [facility] [place] [facility] [address] [id number] [place] [address] 12 Apr, 2011 [facility] [place] [facility] [address] [id number] [place] [address] 17 Mar, 2011 [facility] [place] [facility] [address] [facility] [id number] [place] [address] Aug, IMMUNIZATIONS No Known Immunizations SOCIAL HISTORY Never Assessed REASON FOR VISIT [facility] VITAL SIGNS MEDICATIONS Medication Instructions Dosage Frequency Start Date End Date Duration Status ProAir HFA 90 mcg/actuation inhale 2 puffs by inhalation route every 4-6 hours as needed Aug, Active Levemir 100 unit/mL inject 100 units by Subcutaneous route 2 times per day Jan, Active Victoza 0.6 mg/0.1 mL (18 mg/3 mL) 1.8 mg by Subcutaneous route 1 time per day Feb, Active Omnicef 300 mg 2 capsule by Oral route 1 time per day for 10 day(s) Oct, Active Bactrim DS 800-160 mg 1 tablet by Oral route 2 times per day for 7 day(s) Jun, Active Glimepiride 4 mg take 1 tablet by Oral route 2 times per day Aug, Active cyclobenzaprine 10 mg 1 tablet 1 time per day PRN KEEP SCHEDULED APPT Oct, Active Lyrica 50 mg 1 capsule by Oral route 3 times per day 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) Aug, Active NovoLog 100 unit/mL inject 50 Units by Subcutaneous route 3 times per day before meals Jan, Active amitriptyline 100 mg 1 tablet by Oral route 1 time per day Oct, Active Aciphex 20 mg 1 tablet by Oral route 1 time per day Aug, Active Keflex 500 mg 1 capsule by Oral route 4 times per day for 7 days Oct, Active Amoxicillin 500 mg take 1 capsule (500 mg) by oral route 3 times per day for 14 days Sep, Active phenazopyridine 200 mg 1 tablet by Oral route 3 times per day PRN Aug, Active Cipro 500 mg 1 tablet by Oral route every 12 hours for 10 day(s) December, Active RESULTS No Results PROCEDURES No Known procedures INSTRUCTIONS MEDICATIONS ADMINISTERED No Known Medications MEDICAL (GENERAL) HISTORY Type Description Date Medical History type II diabetes-dx in 1995 Medical History stroke-12/2011-[facility] Medical History cardiovascular disorder-CAD Medical History hyperlipidemia Medical History hypertension Medical History Diabetes with renal manifestations, type II or unspecified type, uncontrolled Medical History 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 Discharged 06/27/17 06/25/17
--- OUTSIDE RECORDS SUMMARY | 2019-03-03 10:58 | XMS REPORT ---
Author Author Migration, Doctor Organization [facility] Address Unknown Phone Unavailable Care Team Providers Care Foundation Assistant Name Role Phone Migration, Doctor Unavailable Unavailable PROBLEMS Type Condition ICD9-CM Code ZZI32-RS Code Onset Dates Condition Status SNOMED Code Problem Chronic pain G89.29 Active 82769929 Problem CAD (coronary artery disease) I25.10 Active 73938973 Problem Dyspepsia R10.13 Active 341920435 Problem Essential hypertension I10 Active 45956955 Problem Skin infection L08.9 Active 340305132 Problem Allergic rhinitis J30.9 Active 63072415 Problem Type 2 diabetes mellitus with other skin ulcer E11.622 Active 95622370 Problem Non-healing skin lesion L98.9 Active 77682001 Problem Cough R05 Active 078984419 Problem Ulcer of right lower leg, with unspecified severity L97.919 Active 029221874 Problem Left ventricular enlargement I51.7 Active 155227821 Problem Type 2 diabetes mellitus with other circulatory complications E11.59 Active 71237111 Problem Foot swelling M79.89 Active 968302103 Problem retirement 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 Active 998746150 Problem Urinary incontinence R32 Active 136706503 Problem Stress incontinence in female N39.3 Active 56357880 Problem Diabetic polyneuropathy associated with type 2 diabetes mellitus E11.42 Active 03361392 Problem Anxiety F41.9 Active 95767850 Problem Atrial enlargement, left I51.7 Active 11156026764648 Problem Pulmonary HTN I27.2 Active 31301991 Problem Neuropathy G62.9 Active 844873751 Problem Mixed hyperlipidemia E78.2 Active 168386655 ALLERGIES No Information ENCOUNTERS Encounter Location Date Diagnosis [address] [address] December, [address] [address] December, Encounter for removal of sutures Z48.[address] [address] December, Diabetic polyneuropathy associated with type 2 diabetes mellitus E11.[address] [address] December, [address] [address] December, Infection of toe L08.[address] [address] December, [address] [address] December, [facility] [address] [facility] [id number] [address] December, Diabetic polyneuropathy associated with type 2 diabetes mellitus E11.42 ; retirement 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 ; Urinary incontinence R32 and Type 2 diabetes mellitus with other circulatory complications E11.59 [facility] [address], [place] [address] December, Essential hypertension I10 ; Type 2 diabetes mellitus with other circulatory complications E11.59 and Dizziness R42 [facility] [address], [place] [address] December, Dizziness R42 ; Essential hypertension I10 and Type 2 diabetes mellitus with other circulatory complications E11.[address] [address] Nov, Breast lump N63.[address] [address] Nov, Breast lump N63.[address] [address] Nov, Breast lump N63.[address] [address] Nov, [address] [address] Nov, Mixed hyperlipidemia E78.2 ; Essential hypertension I10 and retirement 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 [address] Nov, Essential hypertension I10 ; Breast cancer screening Z12.31 ; 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 ; Mixed hyperlipidemia E78.2 ; Dysuria R30.0 and Type 2 diabetes mellitus with other circulatory complications E11.59 [facility] [address], [place] [address] May, [place] [id number] [place] [address] Apr, [facility] [id number] [place] [address] Apr, Essential hypertension I10 and Diabetic polyneuropathy associated with type 2 diabetes mellitus E11.42 [place] [id number] [place] [address] Mar, [place] [id number] [place] [address] Feb, Onychomycosis B35.1 ; Neuropathy G62.9 and Diabetic polyneuropathy associated with type 2 diabetes mellitus E11.42 [place] [address], [place] [address] Feb, [place] [id number] [place] [address] December, [place] [address], [place] [address] December, Herpes zoster without complication B02.9 ; Onychia of toe of left foot L03.032 ; Ingrowing toenail with infection L60.0 and Diabetic polyneuropathy associated with type 2 diabetes mellitus E11.42 [place] [address], [place] [address] December, [place] [address], [place] [address] Nov, [place] [address], [place] [address] Oct, Diabetic polyneuropathy associated with type 2 diabetes mellitus E11.42 [facility] [address], [place] [address] Oct, Essential hypertension I10 and Diabetic polyneuropathy associated with type 2 diabetes mellitus E11.42 [facility] [address], [place] [address] Sep, Diabetic polyneuropathy associated with type 2 diabetes mellitus E11.42 ; Type 2 diabetes mellitus with other skin ulcer E11.622 ; Chronic pain G89.29 ; Anxiety F41.9 ; Essential hypertension I10 ; Hypoxia R09.02 ; Atrial enlargement, left I51.7 and Left ventricular enlargement I51.7 [facility] [id number] [place] [address] Sep, [facility] [id number] [place] [address] Aug, [facility] [id number] [place] [address] Jul, [facility] [id number] [place] [address] Jul, [facility] [id number] [place] [address] Jul, CAD (coronary artery disease) I25.10 ; Essential hypertension I10 ; Pulmonary HTN I27.2 ; Atrial enlargement, left I51.7 and Left ventricular enlargement I51.7 [facility] [address], [place] [address] Jun, [facility] [address], [place] [address] Jun, [facility] [id number] [place] [address] Jun, [facility] [address], [place] [address] Jun, [facility] [id number] [place] [address] Jun, Diabetic polyneuropathy associated with type 2 diabetes mellitus E11.42 ; Type 2 diabetes mellitus with other skin ulcer E11.622 ; Chronic pain G89.29 ; Anxiety F41.9 ; Essential hypertension I10 ; Ulcer of right lower leg, with unspecified severity L97.919 ; Pulmonary HTN I27.2 ; Hypoxia R09.02 ; Atrial enlargement, left I51.7 and Left ventricular enlargement I51.7 [place] [id number] [place] [address] May, [place] [id number] [place] [address] Apr, Diabetic polyneuropathy associated with type 2 diabetes mellitus E11.42 ; Type 2 diabetes mellitus with other skin ulcer E11.622 ; Chronic pain G89.29 ; Anxiety F41.9 ; Cough R05 ; Essential hypertension I10 and Ulcer of right lower leg, with unspecified severity L97.919 [place] [id number] [place] [address] Mar, Diabetic polyneuropathy associated with type 2 diabetes mellitus E11.42 ; Chronic pain G89.29 ; Anxiety F41.9 ; Type 2 diabetes mellitus with other skin ulcer E11.622 ; Cough R05 ; Essential hypertension I10 and Ulcer of right lower leg, with unspecified severity L97.919 [place] [address] [place] [address] Feb, [place] [id number] [place] [address] Feb, Diabetic polyneuropathy associated with type 2 diabetes mellitus E11.42 ; Chronic pain G89.29 ; Anxiety F41.9 ; Type 2 diabetes mellitus with other skin ulcer E11.622 ; Cough R05 and Essential hypertension I10 [place] [id number] [place] [address] Jan, Chronic pain G89.29 ; Anxiety F41.9 and Foot swelling M79.89 [facility] [address], [place] [address] December, Chronic pain G89.29 ; Anxiety F41.9 and Stress incontinence in female N39.3 [facility] [address], [place] [address] December, [facility] [id number] [place] [address] Nov, [facility] [id number] [place] [address] Nov, [facility] [id number] [place] [address] Nov, [facility] [address] [place] [address] Nov, Chronic pain G89.29 ; Anxiety F41.9 ; Non-healing skin lesion L98.9 and Type 2 diabetes mellitus with other skin ulcer E11.622 [facility] [address], [place] [address] Nov, Diabetic polyneuropathy associated with type 2 diabetes mellitus E11.42 [facility] [address], [place] [address] Nov, [facility] [address], [place] [address] Nov, [facility] [address], [place] [address] Nov, [facility] [address], [place] [address] Nov, [facility] [address], [place] [address] Nov, Diabetic polyneuropathy associated with type 2 diabetes mellitus E11.42 [facility] [address], [place] [address] Oct, Diabetic polyneuropathy associated with type 2 diabetes mellitus E11.42 ; Essential hypertension I10 ; Chronic pain G89.29 ; Anxiety F41.9 and Skin infection L08.9 [place] [id number] [place] [address] Oct, [place] [id number] [place] [address] Sep, [place] [address] [address] Sep, Diabetic polyneuropathy associated with type 2 diabetes mellitus E11.42 ; Chronic pain G89.29 ; Anxiety F41.9 and Allergic rhinitis J30.9 [place] [address] [address] Aug, Diabetic polyneuropathy associated with type 2 diabetes mellitus E11.42 ; Chronic pain G89.29 ; Anxiety F41.9 and Allergic rhinitis J30.9 [place] [id number] [place] [address] Jul, [place] [address] [address] Jul, Diabetic polyneuropathy associated with type 2 diabetes mellitus E11.42 ; Dyspepsia R10.13 ; Essential hypertension I10 ; retirement 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 ; CAD (coronary artery disease) I25.10 ; Chronic pain G89.29 ; Anxiety F41.9 ; Dysuria R30.0 and Pain of left lower leg M79.662 [place] [id number] [place] [address] Jul, [place] [address] [address] Jun, Diabetic polyneuropathy associated with type 2 diabetes mellitus E11.42 and 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 [place] [id number] [place] [address] Jun, [place] [id number] [address] Jun, Neuropathy G62.9 ; Arthritis M19.90 ; Leg cramps R25.2 and Anxiety F41.9 [facility] [id number] [address] May, [facility] [id number] [place] [address] May, [facility] [id number] [place] [address] May, Diabetic polyneuropathy associated with type 2 diabetes mellitus E11.42 [place] [id number] [place] [address] May, [facility] [id number] [place] [address] 29 Apr, 2015 [facility] [id number] [place] [address] Apr, [facility] [id number] [place] [address] 17 Apr, 2015 [facility] [id number] [place] [address] 14 Apr, 2015 [facility] [id number] [place] [address] Apr, [facility] [id number] [place] [address] Apr, [facility] [id number] [place] [address] Apr, Diabetes with renal manifestations, type II or unspecified type, uncontrolled 250.42 ; Coronary atherosclerosis of unspecified type of vessel, ak chin or graft 414.00 ; Polyneuropathy in diabetes 357.2 ; Hypertension 401.9 ; Anxiety 300.00 ; GERD (gastroesophageal reflux disease) 530.81 and Type 2 diabetes mellitus with pressure callus 250.80 [facility] [id number], [place] [address] Mar, [facility] [id number] [place] [address] Mar, [facility] [address], [place] [address] Mar, [facility] [id number] [place] [address] Mar, [facility] [id number] [place] [address] Mar, Diabetes with renal manifestations, type II or unspecified type, uncontrolled 250.42 ; Coronary atherosclerosis of unspecified type of vessel, ak chin or graft 414.00 ; Polyneuropathy in diabetes 357.2 ; Hypertension 401.9 and Anxiety 300.00 [facility] [address] [place] [address] Mar, Routine gynecological examination V72.31 ; Breast cancer screening V76.10 ; Recurrent urinary tract infection 599.0 ; Mastodynia 611.71 and Tobacco abuse 305.1 [facility] [address], [place] [address] Feb, [facility] [address], [place] [address] Jan, [facility] [address], [place] [address] Jan, [facility] [address], [place] [address] Jan, [facility] [id number] [place] [address] Jan, [facility] [id number] [place] [address] December, [facility] [address], [place] [address] December, [facility] [address] [facility] [id number] [place] [address] 28 Nov, 2014 [facility] [place] [facility] [address] [id number] [place] [address] 14 Nov, 2014 [facility] [place] [facility] [address] [id number] [place] [address] 13 Nov, 2014 [facility] [place] [facility] [address] [id number] [place] [address] 19 Oct, 2014 [facility] [place] [facility] [address] [id number] [place] [address] 19 Oct, 2014 [facility] [place] [facility] [address] [id number] [place] [address] 16 Oct, 2014 [facility] [place] [facility] [address] [id number] [place] [address] 16 Oct, 2014 [facility] [place] [facility] [address] [id number] [place] [address] 16 Oct, 2014 [facility] [place] [facility] [address] [id number] [place] [address] 16 Oct, 2014 [facility] [place] [facility] [address] [id number] [place] [address] 16 Oct, 2014 [facility] [place] [facility] [address] [id number] [place] [address] 16 Oct, 2014 [facility] [place] [facility] [address] [id number] [place] [address] 16 Oct, 2014 [facility] [place] [facility] [address] [id number] [place] [address] 16 Oct, 2014 [facility] [place] [facility] [address] [id number] [place] [address] 16 Oct, 2014 [facility] [place] [facility] [address] [id number] [place] [address] 16 Oct, 2014 [facility] [place] [facility] [address] [id number] [place] [address] Oct, [facility] [place] [facility] [address] [id number] [place] [address] 04 Oct, 2014 [facility] [place] [facility] [address] [id number] [place] [address] Oct, [facility] [place] [facility] [address] [facility] [id number] [place] [address] Oct, [facility] [place] [facility] [address] [facility] [id number] [place] [address] Oct, [facility] [place] [facility] [address] [id number] [place] [address] Oct, [facility] [place] [facility] [address] [facility] [id number] [place] [address] Sep, 2014 [facility] [place] [facility] [address] [facility] [id number] [place] [address] Sep, [facility] [place] [facility] [address] [facility] [id number] [place] [address] Sep, 2014 [facility] [place] [facility] [address] [facility] [id number] [place] [address] Sep, 2014 [facility] [place] [facility] [address] [facility] [id number] [place] [address] Sep, 2014 [facility] [place] [facility] [address] [facility] [id number] [place] [address] Sep, 2014 [facility] [place] [facility] [address] [facility] [id number] [place] [address] Sep, 2014 [facility] [place] [facility] [address] [facility] [id number] [place] [address] Sep, 2014 [facility] [place] [facility] [address] [facility] [id number] [place] [address] Sep, 2014 [facility] [place] [facility] [address] [facility] [id number] [place] [address] Sep, 2014 [facility] [place] [facility] [address] [id number] [place] [address] Sep, [facility] [place] [facility] [address] [id number] [place] [address] Sep, [facility] [place] [facility] [address] [id number] [place] [address] Sep, 2014 [facility] [place] [facility] [address] [id number] [place] [address] Sep, [facility] [place] [facility] [address] [id number] [place] [address] Sep, [facility] [place] [facility] [address] [id number] [place] [address] Aug, [facility] [place] [facility] [address] [id number] [place] [address] Aug, [facility] [place] [facility] [address] [id number] [place] [address] Aug, [facility] [place] [facility] [address] [id number] [place] [address] Aug, [facility] [place] [facility] [address] [id number] [place] [address] Aug, [facility] [place] [facility] [address] [id number] [place] [address] Aug, [facility] [place] [facility] [address] [id number], [place] [address] Aug, [facility] [place] [facility] [address] [id number] [place] [address] Aug, [facility] [place] [facility] [address] [id number] [place] [address] Aug, [facility] [place] [facility] [address] [id number] [place] [address] Aug, [facility] [place] [facility] [address] [id number], [place] [address] Aug, [facility] [place] [facility] [address] [id number] [place] [address] Aug, [facility] [place] [facility] [address] [id number] [place] [address] Aug, [facility] [place] [facility] [address] [id number] [place] [address] Jul, [facility] [place] [facility] [address] [id number] [place] [address] Jul, [facility] [place] [facility] [address] [id number] [place] [address] Jul, [facility] [place] [facility] [address] [id number] [place] [address] Jul, [facility] [place] [facility] [address] [id number] [place] [address] Jul, [facility] [place] [facility] [address] [id number] [place] [address] Jul, [facility] [place] [facility] [address] [id number] [place] [address] Jul, [facility] [place] [facility] [address] [id number] [place] [address] Jul, [facility] [place] [facility] [address] [id number] [place] [address] Jun, [facility] [place] [facility] [address] [id number] [place] [address] Jun, [facility] [place] [facility] [address] [id number] [place] [address] Jun, [facility] [place] [facility] [address] [id number] [place] [address] Jun, [facility] [place] [facility] [address] [id number] [place] [address] Jun, [facility] [place] [facility] [address] [id number] [place] [address] Jun, [facility] [place] [facility] [address] [id number] [place] [address] Jun, [facility] [place] [facility] [address] [id number] [place] [address] Jun, [facility] [place] [facility] [address] [id number] [place] [address] Jun, [facility] [place] [facility] [address] [id number] [place] [address] Jun, [facility] [place] [facility] [address] [id number] [place] [address] Jun, [facility] [place] [facility] [address] [id number] [place] [address] Jun, [facility] [place] [facility] [address] [id number] [place] [address] Jun, [facility] [place] [facility] [address] [id number] [place] [address] Jun, [facility] [place] [facility] [address] [id number] [place] [address] Jun, [facility] [place] [facility] [address] [id number] [place] [address] Jun, [facility] [place] [facility] [address] [id number] [place] [address] May, [facility] [place] [facility] [address] [id number] [place] [address] May, [facility] [place] [facility] [address] [id number] [place] [address] May, [facility] [place] [facility] [address] [id number] [place] [address] May, [facility] [place] [facility] [address] [id number] [place] [address] May, [facility] [place] [facility] [address] [id number] [place] [address] May, [facility] [place] [facility] [address] [id number] [place] [address] May, [facility] [place] [facility] [address] [id number] [place] [address] May, [facility] [place] [facility] [address] [id number] [place] [address] May, [facility] [place] [facility] [address] [id number] [place] [address] Apr, [facility] [place] [facility] [address] [id number] [place] [address] Apr, [facility] [place] [facility] [address] [id number] [place] [address] Apr, [facility] [place] [facility] [address] [id number] [place] [address] Apr, [facility] [place] [facility] [address] [id number] [place] [address] Mar, [facility] [place] [facility] [address] [id number] [place] [address] Mar, [facility] [place] [facility] [address] [id number] [place] [address] Mar, [facility] [place] [facility] [address] [id number] [place] [address] Mar, [facility] [place] [facility] [address] [id number] [place] [address] Feb, [facility] [place] [facility] [address] [id number] [place] [address] Feb, [facility] [place] [facility] [address] [id number] [place] [address] Jan, [facility] [place] [facility] [address] [id number] [place] [address] Jan, [facility] [place] [facility] [address] [id number] [place] [address] Jan, [facility] [place] [facility] [address] [id number] [place] [address] Jan, [facility] [place] [facility] [address] [id number] [place] [address] Jan, [facility] [place] [facility] [address] [id number] [place] [address] Jan, [facility] [place] [facility] [address] [id number] [place] [address] Jan, [facility] [place] [facility] [address] [id number] [place] [address] Jan, [facility] [place] [facility] [address] [id number] [place] [address] Jan, [facility] [place] [facility] [address] [id number] [place] [address] Jan, [facility] [place] [facility] [address] [id number] [place] [address] Jan, [facility] [place] [facility] [address] [id number] [place] [address] Jan, [facility] [place] [facility] [address] [id number] [place] [address] Jan, [facility] [place] [facility] [address] [id number], [place] [address] December, [facility] [place] [facility] [address] [id number] [place] [address] December, [facility] [place] [facility] [address] [id number] [place] [address] December, [facility] [place] [facility] [address] [id number] [place] [address] December, [facility] [place] [facility] [address] [id number] [place] [address] December, [facility] [place] [facility] [address] [id number] [place] [address] Nov, [facility] [place] [facility] [address] [id number] [place] [address] Nov, [facility] [place] [facility] [address] [id number] [place] [address] Nov, [facility] [place] [facility] [address] [id number] [place] [address] Nov, [facility] [place] [facility] [address] [id number] [place] [address] Nov, [facility] [place] [facility] [address] [id number] [place] [address] Nov, [facility] [place] [facility] [address] [id number] [place] [address] Nov, [facility] [place] [facility] [address] [id number] [place] [address] Nov, [facility] [place] [facility] [address] [id number] [place] [address] Nov, [facility] [place] [facility] [address] [id number] [place] [address] Nov, [facility] [place] [facility] [address] [id number] [place] [address] Jun, [facility] [place] [facility] [address] [id number] [place] [address] Jun, [facility] [place] [facility] [address] [id number] [place] [address] May, [facility] [place] [facility] [address] [id number] [place] [address] May, [facility] [place] [facility] [address] [id number] [place] [address] May, 2012 [facility] [place] [facility] [address] [id number] [place] [address] 16 May, 2012 [facility] [place] [facility] [address] [id number] [place] [address] May, [facility] [place] [facility] [address] [id number] [place] [address] May, [facility] [place] [facility] [address] [id number] [place] [address] May, [facility] [place] [facility] [address] [id number] [place] [address] May, [facility] [place] [facility] [address] [id number] [place] [address] May, [facility] [place] [facility] [address] [id number] [place] [address] 25 Apr, 2012 [facility] [place] [facility] [address] [id number], [place] [address] 25 Apr, 2012 [facility] [place] [facility] [address] [id number] [place] [address] 25 Apr, 2012 [facility] [place] [facility] [address] [id number] [place] [address] 21 Apr, 2012 [facility] [place] [facility] [address] [id number], [place] [address] 20 Apr, 2011 [facility] [place] [facility] [address] [id number], [place] [address] 19 Sep, 2011 [facility] [place] [facility] [address] [id number] [place] [address] 05 Sep2011 [facility] [place] [facility] [address] [facility] [id number], [place] [address] 04 Apr, 2012 [facility] [place] [facility] [address] [id number], [place] [address] Mar, [facility] [place] [facility] [address] [id number] [place] [address] Mar, [facility] [address] [id number] [place] [address] Mar, [facility] [address] [id number] [place] [address] Mar, [facility] [address] [id number] [place] [address] Mar, [facility] [address] [place] [id number] Mar, [facility] [address] [id number] [place] [address] Mar, [facility] [address] [id number] [place] [address] Feb, [facility] [address] [id number] [place] [address] Feb, [facility] [address] [id number] [place] [address] Feb, [facility] [address] [id number] [place] [address] Feb, [facility] [address] [id number] [place] [address] Feb, [facility] [address] [id number] [place] [address] Feb, [facility] [place] [facility] [address] [id number] [place] [address] Jan, [facility] [place] [facility] [address] [id number] [place] [address] Jan, [facility] [place] [facility] [address] [id number] [place] [address] Jan, [facility] [place] [facility] [address] [id number] [place] [address] Jan, [facility] [place] [facility] [address] [id number] [place] [address] Jan, [facility] [address] [id number] [place] [address] Jan, [facility] [address] [id number] [place] [address] Jan, [facility] [address] [id number] [place] [address] December, [facility] [address] [id number] [place] [address] December, [facility] [address] [id number] [place] [address] December, [facility] [address] [id number] [place] [address] Nov, [facility] [address] [id number] [place] [address] Nov, [facility] [address] [id number] [place] [address] Nov, [facility] [address] [id number] [place] [address] Nov, [facility] [address] [id number] [place] [address] Nov, [facility] [address] [id number] [place] [address] 18 Nov, 2011 [facility] [address] [id number] [place] [address] 17 Nov, 2011 [facility] [place] [facility] [address] [id number] [place] [address] 13 Nov, 2011 [facility] [place] [facility] [address] [id number] [place] [address] Oct, [facility] [place] [facility] [address] [id number] [place] [address] Oct, [facility] [address] [id number] [place] [address] Oct, [facility] [place] [facility] [address] [id number] [place] [address] Oct, [facility] [place] [facility] [address] [id number] [place] [address] Sep, [facility] [place] [facility] [address] [id number] [place] [address] Sep, [facility] [place] [facility] [address] [id number] [place] [address] Sep, [facility] [place] [facility] [address] [id number] [place] [address] Aug, [facility] [place] [facility] [address] [id number] [place] [address] Aug, [facility] [place] [facility] [address] [id number] [place] [address] Aug, [facility] [place] [facility] [address] [id number] [place] [address] Aug, [facility] [place] [facility] [address] [id number] [place] [address] Jul, [facility] [place] [facility] [address] [id number] [place] [address] Jul, [facility] [place] [facility] [address] [id number] [place] [address] Jul, [facility] [place] [facility] [address] [id number] [place] [address] Jun, [facility] [place] [facility] [address] [id number] [place] [address] Jun, [facility] [place] [facility] [address] [id number] [place] [address] Jun, [facility] [place] [facility] [address] [facility] [id number], [place] [address] 14 Jun, 2011 [facility] [address] [id number], [place] [address] Jun, [facility] [address] [id number], [place] [address] Jun, [facility] [address] [id number], [place] [address] May, [facility] [id number], [place] [address] May, [facility] [id number], [place] [address] May, [facility] [address] [id number], [place] [address] Apr, [facility] [address] [id number], [place] [address] Mar, [facility] [address] [facility] [id number], [place] [address] Aug, IMMUNIZATIONS No Known Immunizations SOCIAL HISTORY Never Assessed REASON FOR VISIT [facility] PLAN OF CARE VITAL SIGNS MEDICATIONS Unknown [...] Coronary atherosclerosis of unspecified type of vessel, ak chin or graft Surgical History partial hysterectomy 1991 Surgical History heart cath 2004, 2011 Hospitalization History [place] 2004 Hospitalization History [facility] for pancreatitis 11/2010 Hospitalization History [facility] for a stroke 12/2011 Hospitalization History staph infection-Shira Colby 05/2016 Hospitalization History [facility]- Heart failure, uncontrolled Hyperglycemia. Discharged 06/27/17 06/25/17
--- NOTE | 2019-03-03 11:09 | ED Neurological Problem ---
General Chief Complaint: Neuro-Stroke Like Symptoms Stated Complaint: STROKE-LIKE SYMPTOMS Source: patient, EMS, RN notes reviewed, old records Exam Limitations: no limitations History of Present Illness Date Seen by Provider: Mar 03, 2019 Time Seen by Provider: 11:08 Initial Comments Patient presents c/ c/o headache since yesterday and generalized weakness of her extremities since she woke up this AM. Has extensive PMH. Has had these symptoms previously. Refers to her symptoms as spells and then as mini-strokes. Rates her KOHLI @ 05/21. States she feels her speech is affected. Describes her extremity weakness as heaviness. Timing/Duration: 24 hours Severity: severe (KOHLI (05/21)) Associated Symptoms: denies symptoms (x/ as noted. ), weakness (extremities) Allergies and Home Medications Allergies Coded Allergies: sulfamethoxazole (Verified Allergy, Severe, JOIN[place] HURT, 12/21/18) trimethoprim (Verified Allergy, Severe, JOINTS HURT, 12/21/18) influenza virus vaccine, specific (Unverified Allergy, Intermediate, rash, 09/23/18) aspirin (Unverified Allergy, Unknown, convulsions, 09/23/18) metformin (Verified Adverse Reaction, Intermediate, joint pain, 09/23/18) hydromorphone HCl (Unverified Adverse Reaction, Mild, VOMITING, 01/06/11) Home Medications Albuterol Sulfate 1 Puff Puff, 2 PUFF IH QID PRN for SHORTNESS OF BREATH, (Reported) Amitriptyline HCl 50 Mg Tablet, 50 MG PO HS, (Reported) Amoxicillin/Potassium Clav 1 Each Tablet, 1 EACH PO BID Prescribed by: SHAUNA CHAUDHARI on 12/22/18 1334 Apixaban 5 Mg Tablet, 5 MG PO BID, (Reported) Cefuroxime Axetil 250 Mg Tablet, 250 MG PO BID Prescribed by: AHSAN BAEZ on 03/03/19 1341 Cranberry Conc/Ascorbic Acid 1 Each Capsule, 1 CAP PO HS, (Reported) Cyclobenzaprine HCl 10 Mg Tablet, 10 MG PO TID, (Reported) Dapagliflozin Propanediol 10 Mg Tablet, 10 MG PO DAILY, (Reported) Duloxetine HCl 30 Mg Capsule.dr, 30 MG PO HS, (Reported) Fluticasone Propionate 16 Gm [place].susp, 2 SPRAYS NS DAILY PRN for CONGESTION, (Reported) Furosemide 40 Mg Tablet, 40 MG PO DAILY, (Reported) Hydroxyzine HCl 50 Mg Tablet, 50 MG PO BID, (Reported) Insulin Aspart 300 Units/3 Ml Solution, 50 UNITS SQ TIDAC, (Reported) Insulin Detemir 100 Unit/1 Ml Insuln.pen, 100 UNIT SQ BID, (Reported) Losartan Potassium 100 Mg Tablet, 100 MG PO DAILY, (Reported) Multivitamin 1 Each Tablet, 1 TAB PO DAILY, (Reported) Blackwell 3 Polyunsat Fatty Acids 1,000 Mg Cap, 1,000 MG PO HS, (Reported) Omeprazole 40 Mg Capsule.dr, 40 MG PO DAILY, (Reported) Potassium Chloride 20 Meq Tablet.er, 20 MEQ PO DAILY, (Reported) Pregabalin 150 Mg Capsule, 150 MG PO TID, (Reported) Rosuvastatin Calcium 40 Mg Tablet, 40 MG PO DAILY, (Reported) Sitagliptin Phosphate 100 Mg Tablet, 100 MG PO DAILY, (Reported) Solifenacin Succinate 5 Mg Tablet, 5 MG PO DAILY, (Reported) Tiotropium [place] 4 Gm Mist.inhal, 2 PUFF INH DAILY, (Reported) Tramadol HCl 50 Mg Tablet, 100 MG PO QID PRN for PAIN-MODERATE, (Reported) TAKES 2 (50MG) TABLETS Patient Home Medication List Home Medication List Reviewed: Yes Review of Systems Review of Systems Constitutional: see HPI, weakness (generalize BUE/BLE) Psychiatric/Neurological: See HPI, Headache, Weakness (generalize BUE/BLE) All Other Systems Reviewed Negative Unless Noted: Yes (Negative excepted noted.) Past Lpptdyp-Zkjufv-Lonnag Hx Patient Social History Type Used: Cigarettes 2nd Hand Smoke Exposure: No Recent Hopitalizations: No Immunizations Up To Date Tetanus Booster (TDap): Unknown PED Vaccines UTD: No Date of Pneumonia Vaccine: May 12, 2012 Seasonal Allergies Seasonal Allergies: No Past Medical History Surgeries: Yes Appendectomy, Gallbladder, Hysterectomy Respiratory: Yes COPD Currently Using CPAP: No Currently Using BIPAP: No Cardiac: Yes High Cholesterol, Hypertension Neurological: Yes Neuropathy Reproductive Disorders: No (partial hysterectomy of R side. ) Female Reproductive Disorders: Denies Sexually Transmitted Disease: No HIV/AIDS: No Genitourinary: Yes Kidney Infection, UTI-Chronic Gastrointestinal: Yes Gastroesophageal Reflux, Pancreatitis, Chronic Diarrhea Musculoskeletal: Yes Arthritis Endocrine: Yes Diabetes, Insulin dep HEENT: Yes Tinnitis Loss of Vision: Bilateral Hearing Impairment: Denies Cancer: No Psychosocial: Yes Anxiety, Depression Integumentary: No Blood Disorders: No Adverse Reaction/Blood Tranf: No Family Medical History Alcoholism G8 BROTHER Alzheimer's disease 19 MOTHER Arthritis 19 FATHER 19 MOTHER G8 BROTHER G8 BROTHER G8 BROTHER G8 BROTHER G8 BROTHER G8 SISTER G8 SISTER G8 SISTER G8 SISTER G8 SISTER G8 SISTER Asthma 19 FATHER 19 MOTHER G8 SISTER G8 SISTER Cancer of mouth Cardiovascular disease 19 FATHER 19 MOTHER G8 BROTHER G8 BROTHER G8 SISTER G8 SISTER Completed stroke 19 FATHER G8 SISTER G8 SISTER Dementia G8 BROTHER Diabetes mellitus 19 FATHER 19 MOTHER G8 BROTHER G8 BROTHER G8 BROTHER G8 BROTHER G8 BROTHER G8 SISTER G8 SISTER G8 SISTER G8 SISTER G8 SISTER G8 SISTER Glaucoma 19 MOTHER G8 SISTER G8 SISTER Hypercholesterolemia 19 FATHER 19 MOTHER Hypertension 19 FATHER 19 MOTHER G8 BROTHER G8 BROTHER G8 BROTHER G8 BROTHER G8 BROTHER G8 SISTER G8 SISTER G8 SISTER G8 SISTER G8 SISTER G8 SISTER Myocardial infarction 19 FATHER 19 MOTHER G8 BROTHER G8 BROTHER G8 SISTER G8 SISTER G8 SISTER Osteoporosis G8 SISTER Seizure disorder G8 BROTHER No Family History of: AIDS Abdominal aortic aneurysm [place]'s disease Aphasia Cataracts Colon cancer Congenital disease Congenital heart disease Coronary thrombosis Cystic fibrosis Deafness or hearing loss Drug abuse Dysphasia Fibrocystic disease of breast Gastroenteritis Headache disorder Infertility Kidney disease Neoplasm Parkinson's disease Prostate cancer Psychosocial problem Severe allergy Thyroid disease Tuberculosis Visual disorder Physical Exam Vital Signs Vital Signs - First Documented 03/03/19 10:38 Temp 98.6 Pulse 90 Resp 15 B/P (MAP) 117/61 (79) Pulse Ox 92 O2 Delivery Room Air Capillary Refill : Height, Weight, BMI Height: 5'9.00" Weight: 250lbs. 1.0oz. 113.715399oi; 36.8 BMI Method:Stated General Appearance: WD/WN, no apparent distress, obese HEENT: normal ENT inspection Neck: normal inspection Respiratory: no respiratory distress Cardiovascular: regular rate, rhythm Neurologic/Psychiatric: no motor/sensory deficits, alert, oriented x 3, depressed affect (tearful @ times) Crainal Nerves: normal hearing, normal speech, PERRL Coordination/Gait: normal finger to nose, normal gait Motor/Sensory: no pronator drift, negative Babinski's sign Skin: warm/dry Procedures/Interventions Suture Size: 4-0 Progress/Results/Core Measures Results/Orders Lab Results Laboratory Tests Test 03/03/19 10:37 03/03/19 10:42 03/03/19 11:27 03/03/19 11:34 Range/Units Lab Scanned Report Referred Lab Report [id number] White Blood Count 12.7 H 4.3-11.0 10^3/uL Red Blood Count 4.39 4.35-5.85 10^6/uL Hemoglobin 12.6 11.5-16.0 G/DL Hematocrit 39 35-52 % Mean Corpuscular Volume 90 80-99 FL Mean Corpuscular Hemoglobin 29 25-34 PG Mean Corpuscular Hemoglobin Concent 32 32-36 G/DL Red Cell Distribution Width 14.9 H 10.0-14.5 % Platelet Count 263 130-400 10^3/uL Mean Platelet Volume 12.5 H 7.4-10.4 FL Neutrophils (%) (Auto) 66 42-75 % Lymphocytes (%) (Auto) 23 12-44 % Monocytes (%) (Auto) 8 0-12 % Eosinophils (%) (Auto) 2 0-10 % Basophils (%) (Auto) 1 0-10 % Neutrophils # (Auto) 8.4 H 1.8-7.8 X 10^3 Lymphocytes # (Auto) 3.0 1.0-4.0 X 10^3 Monocytes # (Auto) 1.0 0.0-1.0 X 10^3 Eosinophils # (Auto) 0.2 0.0-0.3 10^3/uL Basophils # (Auto) 0.1 0.0-0.1 10^3/uL Prothrombin Time 14.9 H 12.2-14.7 SEC INR Comment 1.1 0.8-1.4 Activated Partial Thromboplast Time 29 24-35 SEC D-Dimer 0.24 0.00-0.49 UG/ML Sodium Level 138 135-145 MMOL/L Potassium Level 4.3 3.6-5.0 MMOL/L Chloride Level 96 L 98-107 MMOL/L Carbon Dioxide Level 26 21-32 MMOL/L Anion Gap 16 H 5-14 MMOL/L Blood Urea Nitrogen 19 H 7-18 MG/DL Creatinine 0.69 0.60-1.30 MG/DL Estimat Glomerular Filtration Rate > 60 BUN/Creatinine Ratio 28 Glucose Level 354 H 70-105 MG/DL Calcium Level 9.4 8.5-10.1 MG/DL Corrected Calcium 10.0 8.5-10.1 MG/DL Magnesium Level 1.8 1.8-2.4 MG/DL Total Bilirubin 0.2 0.1-1.0 MG/DL Aspartate Amino Transf (AST/SGOT) 20 5-34 U/L Alanine Aminotransferase (ALT/SGPT) 24 0-55 U/L Alkaline Phosphatase 65 40-136 U/L Troponin I < 0.30 <0.30 NG/ML Total Protein 6.9 6.4-8.2 GM/DL Albumin 3.3 3.2-4.5 GM/DL Glucometer 324 H 70-110 MG/DL Urine Color PALE YELLOW Urine Clarity CLOUDY Urine pH 5.5 5-9 Urine Specific [place] <=1.005 1.016-1.022 Urine Protein NEGATIVE NEGATIVE Urine Glucose (UA) 3+ H NEGATIVE Urine Ketones NEGATIVE NEGATIVE Urine Nitrite NEGATIVE NEGATIVE Urine Bilirubin NEGATIVE NEGATIVE Urine Urobilinogen 0.2 NORMAL MG/DL Urine Leukocyte Esterase 2+ H NEGATIVE Urine RBC (Auto) 1+ H NEGATIVE Urine RBC RARE /HPF Urine WBC TNTC H /HPF Urine Squamous Epithelial Cells 5-10 /HPF Urine Crystals NONE /LPF Urine Bacteria TRACE /HPF Urine Casts NONE /LPF Urine Mucus NONE /LPF Urine Culture Indicated YES Micro Results Microbiology 03/03/19 Urine Culture - Final, Complete Escherichia coli Klebsiella pneumoniae My Orders Orders - AHSAN BAEZ DO Cbc With Automated Diff (03/03/19 11:05) Protime With Inr (03/03/19 11:05) Partial Thromboplastin Time (03/03/19 11:05) Comprehensive Metabolic Panel (03/03/19 11:05) Troponin I (03/03/19 11:05) Ua Culture If Indicated (03/03/19 11:05) Chest 1 View Ap/Pa Only (03/03/19 11:05) Ekg Tracing (03/03/19 11:05) Accucheck Stat ONCE (03/03/19 11:05) Ed Iv/Invasive Line Start (03/03/19 11:05) Vital Signs Stroke Patient Q15M (03/03/19 11:05) Ct Head Wo-R/O Stroke (03/03/19 11:05) O2 (03/03/19 11:05) Monitor-Rhythm Ecg Trace Only (03/03/19 11:05) Dysphagia Screening Tool (03/03/19 11:05) Magnesium (03/03/19 11:22) Ct Angio Head/Neck (03/03/19 11:43) Urine Culture (03/03/19 11:34) Fibrin Degradation Products (03/03/19 11:56) Iohexol Injection (Omnipaque 350 Mg/Ml 1 (03/03/19 12:30) Received Contrast (Hold Metformin- Contr (03/03/19 12:30) Ns (Ivpb) (Sodium Chloride 0.9% Ivpb Bag (03/03/19 12:30) Ceftriaxone For Iv Use (Rocephin For I (03/03/19 13:45) Iv Push Derrick Boat Captain Ed (03/03/19 ) Medications Given in ED Vital Signs/I&O 03/03/19 03/03/19 10:38 13:49 Temp 98.6 98.6 Pulse 90 86 Resp 15 18 B/P (MAP) 117/61 (79) 98/48 (65) Pulse Ox 92 90 O2 Delivery Room Air Room Air Progress Progress Note : Progress Note Patient much improved @ discharge Diagnostic Imaging Diagonstic Imaging: Xray, CT Plain Films/CT/US/NM/MRI: chest (nothing acute), head (nothinig acute), other (head/neck angio- nothinig acute) Departure Impression Primary Impression: Weakness generalized Additional Impressions: UTI (urinary tract infection) Hyperglycemia without ketosis Disposition: 01 HOME, SELF-CARE Condition: Improved Departure-Patient Inst. Decision time for Depature: 13:40 Referrals: [facility] (PCP) Primary Care Physician TOBY SMALLS APRN (Family) Primary Care Physician Patient Instructions: Urinary Tract Infections in Adults, Generalized Weakness (DC), Hyperglycemia, Adult (DC) Scripts Cefuroxime Axetil (Cefuroxime) 250 Mg Tablet 250 MG PO BID for UTI for 10 Days, #20 TAB 0 Refills Prov: AHSAN BAEZ DO 03/03/19 AHSAN BAEZ DO Mar 03, 2019 11:09
[2019-03-03 11:18] LABS: HEMATOCRIT 39 % (35-52); HEMOGLOBIN 12.6 G/DL (11.5-16.0); MEAN CORPUSCULAR HEMOGLOBIN 29 PG (25-34); MEAN CORPUSCULAR HGB CONC 32 G/DL (32-36); MEAN CORPUSCULAR VOLUME 90 FL (80-99); MEAN PLATELET VOLUME 12.5 FL (7.4-10.4); PLATELET COUNT 263 10^3/uL (130-400); RED CELL DISTRIBUTION WIDTH 14.9 % (10.0-14.5); WHITE BLOOD COUNT 12.7 10^3/uL (4.3-11.0)
[2019-03-03 11:19] LABS: BASOPHILS # (AUTO) 0.1 10^3/uL (0.0-0.1); BASOPHILS % (AUTO) 1 % (0-10); EOSINOPHILS # (AUTO) 0.2 10^3/uL (0.0-0.3); EOSINOPHILS % (AUTO) 2 % (0-10); LYMPHOCYTES % (AUTO) 23 % (12-44); MONOCYTES % (AUTO) 8 % (0-12); NEUTROPHILS # (AUTO) 8.4 X 10^3 (1.8-7.8); NEUTROPHILS % (AUTO) 66 % (42-75)
[2019-03-03 11:24] LABS: INR 1.1 (0.8-1.4); PROTHROMBIN TIME PATIENT 14.9 SEC (12.2-14.7)
--- NOTE | 2019-03-03 11:24 | Diagnostic Imaging Report ---
INDICATION: Generalized weakness. Speech difficulties TECHNIQUE: Routine non contrast-enhanced axial images were obtained from the skull base to the vertex. Auto Exposure Controls were utilized during the CT exam to meet ALARA standards for radiation dose reduction COMPARISON: 12/18/2018 FINDINGS: The ventricles and cortical sulci are diffusely prominent, compatible with age-related volume loss. There are confluent areas of abnormal, low attenuation in the periventricular white matter. This is consistent with chronic small vessel ischemic changes. There is no midline shift or mass-effect. No acute intra-axial hemorrhage is seen. There are no abnormal areas of increased or decreased density to suggest acute hemorrhage or edema. No extra-axial masses or collections are present. The bony calvarium is intact. The visualized paranasal sinuses are unremarkable. The mastoid air cells are clear. IMPRESSION: 1. No acute intracranial abnormality. No CT evidence of mass, acute infarct or intracranial hemorrhage. 2. Small vessel ischemic changes in the periventricular and subcortical white matter; likely chronic. Results are discussed with the patient's ER nurse by Dr. Pruitt at 1120 hours on 03/03/2019. Dictated by: Dictated on workstation # [id number]
[2019-03-03 11:33] LABS: BUN/CREATININE RATIO 28; CARBON DIOXIDE 26 MMOL/L (21-32); CHLORIDE 96 MMOL/L (98-107); CREATININE SERUM 0.69 MG/DL (0.60-1.30); GFR ESTIMATED > 60; GLUCOSE 354 MG/DL (70-105); POTASSIUM 4.3 MMOL/L (3.6-5.0); SODIUM 138 MMOL/L (135-145)
[2019-03-03 11:34] LABS: ALANINE AMINOTRANSFERASE 24 U/L (0-55); ALKALINE PHOSPHATASE 65 U/L (40-136); BILIRUBIN,TOTAL 0.2 MG/DL (0.1-1.0); CALCIUM 9.4 MG/DL (8.5-10.1)
--- NOTE | 2019-03-03 11:34 | Diagnostic Imaging Report ---
CLINICAL INDICATION: Patient stroke like symptoms. Patient just does not fell right. EXAM: Portable chest x-ray upright view. COMPARISONS: Chest x-ray dated 01/26/2019. FINDINGS: Lungs/pleura: Stable mild discoid atelectasis or scarring in the right upper lung field. There is interval mild bibasilar atelectasis. Otherwise, lungs are clear. There is no pneumothorax. There is no pleural effusion. Mediastinum: Unremarkable. Pulmonary vasculature: Unremarkable. Heart: Unremarkable. Bones/extrathoracic soft tissue: There are small degenerative spurs involving the thoracic spine IMPRESSION: 1: There is interval mild bibasilar atelectasis. Otherwise, there is no radiographic evidence of acute cardiopulmonary process. 2: Stable mild discoid atelectasis or scarring in the right upper lobe. Dictated by: Dictated on workstation # [id number]
[2019-03-03 11:35] LABS: ALBUMIN 3.3 GM/DL (3.2-4.5); TOTAL PROTEIN 6.9 GM/DL (6.4-8.2)
[2019-03-03 11:45] LABS: BILIRUBIN,URINE NEGATIVE (NEGATIVE); CLARITY,URINE CLOUDY; COLOR,URINE PALE YELLOW; GLUCOSE, URINE (UA) 3+ (NEGATIVE); KETONES,URINE NEGATIVE (NEGATIVE); LEUKOCYTE ESTERASE ,URINE 2+ (NEGATIVE); NITRITE,URINE NEGATIVE (NEGATIVE); PH,URINE 5.5 (5-9); PROTEIN,URINE NEGATIVE (NEGATIVE); UROBILINOGEN,URINE 0.2 MG/DL (NORMAL)
[2019-03-03 11:46] LABS: BACTERIA,URINE TRACE /HPF; RBC,URINE RARE /HPF; WBC,URINE TNTC /HPF
[2019-03-03] MEDS ORDERED: IOHEXOL 350 MG/ML 100 ML (OMNIPAQUE 350) VIAL IV ONE (12:30)
[2019-03-03] MEDS ORDERED: NS 100 ML (IVPB) BAG IV ONE (12:30)
[2019-03-03] MEDS ORDERED: HOLD METFORMIN - RECEIVED CONTRAST 20 ML VIAL IV SCH (12:30)
--- NOTE | 2019-03-03 13:26 | Diagnostic Imaging Report ---
PROCEDURE: CT angiography of the head and CT angiography of the neck with and without contrast. TECHNIQUE: Contiguous noncontrast images were obtained from the skull base through the vertex. After intravenous contrast administration, helical CT angiography of the neck was performed. Source data was reformatted into 3D MIP projections. Delayed post contrast acquisition was also obtained. Auto Exposure Controls were utilized during the CT exam to meet ALARA standards for radiation dose reduction. INDICATION: Possible stroke. Patient "not feeling well." FINDINGS: CT angio neck: The vertebral arteries are patent and codominant. Branching pattern of the great vessels is unremarkable. The common carotids bilaterally are patent. On the right, the carotid bifurcation shows mixed soft and hard plaque extending into the proximal ICA stenosis of less than 50% present. On the left, more substantial mixed soft and hard plaque at the bulb and bifurcation is present extending into the proximal left ICA but also without hemodynamically significant degree of stenosis. No segmental occlusion. CT angio head: There are calcified plaques, non stenosing, eccentrically at the cavernous segments of the carotids. The A1 segments, the ACOM, and the anterior cerebral arteries are patent. Bilateral middle cerebral arteries and their primary branches are patent. The intrathecal vertebral arteries, the basilar, the PICAs, and the geological specialist are patent. There is no aneurysm, branch occlusion, vascular malformation, or other significant abnormality. IMPRESSION: 1. The carotid bulb and bifurcation plaques are without formation of hemodynamically significant stenosis, somewhat greater left than right, with widely patent posterior circulation. 2. CT angio head: Non stenosing cavernous segmental carotid calcified plaques. No large vessel occlusion, thrombus, aneurysm, or acute-appearing abnormalities. Dictated by: Dictated on workstation # [id number]
[2019-03-03] MEDS ORDERED: CEFU250T80 PO (13:41)
[2019-03-03] MEDS ORDERED: cefTRIAXone FOR IV USE 1,000 MG in WATER (STERILE) FOR INJECTION 10 ML IV ONE (13:45)
[2019-03-03 13:49] VITALS: BP 98/48
== END 2019-03-03 13:59 | disposition home or self-care (01) ==
LOC: EDUNIT# 10:36 → ER FS 10:37
DX: N39.0 Urinary tract infection, site not specified (principal); R53.1 Weakness; E11.65 Type 2 diabetes mellitus with hyperglycemia; J44.9 Chronic obstructive pulmonary disease, unspecified; I10 Essential (primary) hypertension; E78.00 Pure hypercholesterolemia, unspecified; E11.40 Type 2 diabetes mellitus with diabetic neuropathy, unspecified; K21.9 Gastro-esophageal reflux disease without esophagitis; F41.9 Anxiety disorder, unspecified; F32.9 Major depressive disorder, single episode, unspecified; Z87.440 Personal history of urinary (tract) infections; Z90.711 Acquired absence of uterus with remaining cervical stump; Z90.49 Acquired absence of other specified parts of digestive tract; Z88.2 Allergy status to sulfonamides; Z88.1 Allergy status to other antibiotic agents; Z88.7 Allergy status to serum and vaccine; Z88.5 Allergy status to narcotic agent; Z88.8 Allergy status to other drugs, medicaments and biological substances; Z79.51 Long term (current) use of inhaled steroids; Z79.4 Long term (current) use of insulin; Z82.49 Family history of ischemic heart disease and other diseases of the circulatory system
CPT/HCPCS: 36415; 70450; 70496; 70498; 71045; 80053; 81000; 82962; 83735; 84484; 85025; 85379; 85610; 85730; 87077; 87088; 87184; 87186; 93005; 93041; 96374

== ENCOUNTER 2019-06-17 11:18 | Emergency (ER) | payer MEDICARE, MEDICAID ==
[~2019-06-17] VITALS: Ht 175.2 cm; Wt 118.2 kg
[~2019-06-17 11:18] MED LIST changes: +CEFU250T80 PO; -DULO30CA48 PO; +DULO30CA49 PO; -ROSU40TA22 PO; +ROSU40TA23 PO
[2019-06-17] MEDS ORDERED: NS IV 1000 ML 1,000 ML IV SCH (12:00)
--- NOTE | 2019-06-17 12:00 | ED General ---
General Stated Complaint: FALL; LETHARGY Source of Information: Patient Exam Limitations: No Limitations History of Present Illness Date Seen by Provider: Jun 17, 2019 Time Seen by Provider: 11:56 Initial Comments Presents from primary care provider's office with complaint that she hasn't been feeling well since yesterday. States she got out of the bed yesterday morning and fell to the ground and has been feeling weak since then. Seen by PCP and noted low blood pressure so sent to the ER. Patient denies chest pain or shortness of air. Does complain that she's had a cough for several days. Denies fever or chills or swelling of extremities. Allergies and Home Medications Allergies Coded Allergies: sulfamethoxazole (Verified Allergy, Severe, JOINTS HURT, 12/21/18) trimethoprim (Verified Allergy, Severe, JOINTS HURT, 12/21/18) influenza virus vaccine, specific (Unverified Allergy, Intermediate, rash, 09/23/18) aspirin (Unverified Allergy, Unknown, convulsions, 09/23/18) metformin (Verified Adverse Reaction, Intermediate, joint pain, 09/23/18) hydromorphone HCl (Unverified Adverse Reaction, Mild, VOMITING, 01/06/11) Home Medications Albuterol Sulfate 1 Puff Puff, 2 PUFF IH QID PRN for SHORTNESS OF BREATH, (Reported) Amitriptyline HCl 50 Mg Tablet, 50 MG PO HS, (Reported) Amoxicillin/Potassium Clav 1 Each Tablet, 1 EACH PO BID Prescribed by: SHAUNA CHAUDHARI on 12/22/18 1334 Apixaban 5 Mg Tablet, 5 MG PO BID, (Reported) Cefuroxime Axetil 250 Mg Tablet, 250 MG PO BID Prescribed by: AHSAN BAEZ on 03/03/19 1341 Cranberry Conc/Ascorbic Acid 1 Each Capsule, 1 CAP PO HS, (Reported) Cyclobenzaprine HCl 10 Mg Tablet, 10 MG PO TID, (Reported) Dapagliflozin Propanediol 10 Mg Tablet, 10 MG PO DAILY, (Reported) Duloxetine HCl 30 Mg Capsule.dr, 30 MG PO HS, (Reported) Fluticasone Propionate 16 Gm [place].susp, 2 SPRAYS NS DAILY PRN for CONGESTION, ( Reported) Furosemide 40 Mg Tablet, 40 MG PO DAILY, (Reported) Hydroxyzine HCl 50 Mg Tablet, 50 MG PO BID, (Reported) Insulin Aspart 300 Units/3 Ml Solution, 50 UNITS SQ TIDAC, (Reported) Insulin Detemir 100 Unit/1 Ml Insuln.pen, 100 UNIT SQ BID, (Reported) Losartan Potassium 100 Mg Tablet, 100 MG PO DAILY, (Reported) Multivitamin 1 Each Tablet, 1 TAB PO DAILY, (Reported) [place] 3 Polyunsat Fatty Acids 1,000 Mg Cap, 1,000 MG PO HS, (Reported) Omeprazole 40 Mg Capsule.dr, 40 MG PO DAILY, (Reported) Potassium Chloride 20 Meq Tablet.er, 20 MEQ PO DAILY, (Reported) Pregabalin 150 Mg Capsule, 150 MG PO TID, (Reported) Rosuvastatin Calcium 40 Mg Tablet, 40 MG PO DAILY, (Reported) Sitagliptin Phosphate 100 Mg Tablet, 100 MG PO DAILY, (Reported) Solifenacin Succinate 5 Mg Tablet, 5 MG PO DAILY, (Reported) Tiotropium [place] 4 Gm [place].inhal, 2 PUFF INH DAILY, (Reported) Tramadol HCl 50 Mg Tablet, 100 MG PO QID PRN for PAIN-MODERATE, (Reported) TAKES 2 (50MG) TABLETS Patient Home Medication List Home Medication List Reviewed: Yes Review of Systems Review of Systems Constitutional: see HPI; No fever; malaise, weakness EENTM: no symptoms reported Respiratory: cough; No orthopnea, No phlegm, No short of breath, No wheezing Cardiovascular: No chest pain, No palpitations, No syncope Gastrointestinal: No abdominal pain, No loss of appetite, No nausea, No vomiting Skin: No change in color, No rash Psychiatric/Neurological: Denies Headache, Denies Numbness, Denies Paresthesia, Denies Tremors; Weakness Past Rsdannb-Cinsdr-Enjeib Hx Past Med/Social Hx: Reviewed Nursing Past Med/Soc Hx Patient Social History Type Used: Cigarettes 2nd Hand Smoke Exposure: No Recent Foreign Travel: No Recent Hopitalizations: No Immunizations Up To Date Tetanus Booster (TDap): Unknown PED Vaccines UTD: No Date of Pneumonia Vaccine: May 12, 2012 Seasonal Allergies Seasonal Allergies: No Past Medical History Surgeries: Yes Appendectomy, Gallbladder, Hysterectomy Respiratory: Yes COPD Currently Using CPAP: No Currently Using BIPAP: No Cardiac: Yes High Cholesterol, Hypertension Neurological: Yes Neuropathy Reproductive Disorders: No (partial hysterectomy of R side. ) Female Reproductive Disorders: Denies Sexually Transmitted Disease: No HIV/AIDS: No Genitourinary: Yes Kidney Infection, UTI-Chronic Gastrointestinal: Yes Gastroesophageal Reflux, Pancreatitis, Chronic Diarrhea Musculoskeletal: Yes Arthritis Endocrine: Yes Diabetes, Insulin dep HEENT: Yes Tinnitis Loss of Vision: Bilateral Hearing Impairment: Denies Cancer: No Psychosocial: Yes Anxiety, Depression Integumentary: No Blood Disorders: No Adverse Reaction/Blood Tranf: No Family Medical History Alcoholism G8 BROTHER Alzheimer's disease 19 MOTHER Arthritis 19 FATHER 19 MOTHER G8 BROTHER G8 BROTHER G8 BROTHER G8 BROTHER G8 BROTHER G8 SISTER G8 SISTER G8 SISTER G8 SISTER G8 SISTER G8 SISTER Asthma 19 FATHER 19 MOTHER G8 SISTER G8 SISTER Cancer of mouth Cardiovascular disease 19 FATHER 19 MOTHER G8 BROTHER G8 BROTHER G8 SISTER G8 SISTER Completed stroke 19 FATHER G8 SISTER G8 SISTER Dementia G8 BROTHER Diabetes mellitus 19 FATHER 19 MOTHER G8 BROTHER G8 BROTHER G8 BROTHER G8 BROTHER G8 BROTHER G8 SISTER G8 SISTER G8 SISTER G8 SISTER G8 SISTER G8 SISTER Glaucoma 19 MOTHER G8 SISTER G8 SISTER Hypercholesterolemia 19 FATHER 19 MOTHER Hypertension 19 FATHER 19 MOTHER G8 BROTHER G8 BROTHER G8 BROTHER G8 BROTHER G8 BROTHER G8 SISTER G8 SISTER G8 SISTER G8 SISTER G8 SISTER G8 SISTER Myocardial infarction 19 FATHER 19 MOTHER G8 BROTHER G8 BROTHER G8 SISTER G8 SISTER G8 SISTER Osteoporosis G8 SISTER Seizure disorder G8 BROTHER No Family History of: AIDS Abdominal aortic aneurysm [place]'s disease Aphasia Cataracts Colon cancer Congenital disease Congenital heart disease Coronary thrombosis Cystic fibrosis Deafness or hearing loss Drug abuse Dysphasia Fibrocystic disease of breast Gastroenteritis Headache disorder Infertility Kidney disease Neoplasm Parkinson's disease Prostate cancer Psychosocial problem Severe allergy Thyroid disease Tuberculosis Visual disorder Physical Exam Vital Signs Vital Signs - First Documented Capillary Refill : Height, Weight, BMI Height: 5'9.00" Weight: 253lbs. 1.0oz. 114.207745gk; 36.8 BMI Method:Stated General Appearance: No Apparent Distress, Other (obeses) HEENT: PERRL/EOMI, TMs Normal Neck: Full Range of Motion, Normal Inspection, Non Tender, Supple Respiratory: Chest Non Tender, Lungs Clear, Normal Breath Sounds Cardiovascular: Regular Rate, Rhythm, No Edema, No JVD, Normal Peripheral Pulses Gastrointestinal: Normal Bowel Sounds, Non Tender, Soft Back: Normal Inspection, No CVA Tenderness Extremity: Normal Capillary Refill, Non Tender, No Calf Tenderness Neurologic/Psychiatric: Alert, Oriented x3, No Motor/Sensory Deficits Focused Exam Lactate Level 06/17/19 12:00: Lactic Acid Level 1.72 Lactic Acid Level Laboratory Tests Test 06/17/19 12:00 Lactic Acid Level 1.72 MMOL/L (0.50-2.00) Procedures/Interventions Suture Size: 4-0 Progress/Results/Core Measures Suspected Sepsis SIRS Temperature: Pulse: Respiratory Rate: Laboratory Tests 06/17/19 12:00: White Blood Count 12.9H Blood Pressure / Mean: 06/17/19 12:00: Lactic Acid Level 1.72 Laboratory Tests 06/17/19 12:00: Creatinine 1.01, Platelet Count 234, Total Bilirubin 0.2 Results/Orders Lab Results Laboratory Tests Test 06/17/19 12:00 06/17/19 14:00 Range/Units White Blood Count 12.9 H 4.3-11.0 10^3/uL Red Blood Count 4.81 4.35-5.85 10^6/uL Hemoglobin 13.8 11.5-16.0 G/DL Hematocrit 43 35-52 % Mean Corpuscular Volume 89 80-99 FL Mean Corpuscular Hemoglobin 29 25-34 PG Mean Corpuscular Hemoglobin Concent 32 32-36 G/DL Red Cell Distribution Width 14.3 10.0-14.5 % Platelet Count 234 130-400 10^3/uL Mean Platelet Volume 12.4 H 7.4-10.4 FL Neutrophils (%) (Auto) 66 42-75 % Lymphocytes (%) (Auto) 25 12-44 % Monocytes (%) (Auto) 6 0-12 % Eosinophils (%) (Auto) 2 0-10 % Basophils (%) (Auto) 1 0-10 % Neutrophils # (Auto) 8.6 H 1.8-7.8 X 10^3 Lymphocytes # (Auto) 3.3 1.0-4.0 X 10^3 Monocytes # (Auto) 0.8 0.0-1.0 X 10^3 Eosinophils # (Auto) 0.2 0.0-0.3 10^3/uL Basophils # (Auto) 0.1 0.0-0.1 10^3/uL Sodium Level 132 L 135-145 MMOL/L Potassium Level 5.2 H 3.6-5.0 MMOL/L Chloride Level 91 L 98-107 MMOL/L Carbon Dioxide Level 28 21-32 MMOL/L Anion Gap 13 5-14 MMOL/L Blood Urea Nitrogen 44 H 7-18 MG/DL Creatinine 1.01 0.60-1.30 MG/DL Estimat Glomerular Filtration Rate 57 BUN/Creatinine Ratio 44 Glucose Level 328 H 70-105 MG/DL Lactic Acid Level 1.72 0.50-2.00 MMOL/L Calcium Level 9.9 8.5-10.1 MG/DL Corrected Calcium 10.2 H 8.5-10.1 MG/DL Total Bilirubin 0.2 0.1-1.0 MG/DL Aspartate Amino Transf (AST/SGOT) 16 5-34 U/L Alanine Aminotransferase (ALT/SGPT) 24 0-55 U/L Alkaline Phosphatase 94 40-136 U/L Total Protein 7.5 6.4-8.2 GM/DL Albumin 3.6 3.2-4.5 GM/DL My Orders Orders - RAYMONSTFACUNDO BERNARDO DO Ed Iv/Invasive Line Start (06/17/19 11:54) Orthostatic Vital Signs (Adult (06/17/19 11:54) Cbc With Automated Diff (06/17/19 11:54) Comprehensive Metabolic Panel (06/17/19 11:54) Lactic Acid Analyzer (06/17/19 11:54) Urinalysis (06/17/19 11:54) Chest Pa/Lat (2 View) (06/17/19 11:54) Ns Iv 1000 Ml (Sodium Chloride 0.9%) (06/17/19 12:00) Levofloxacin 750 Mg/150 Ml Iv (Levaquin (06/17/19 12:45) Blood Culture (06/17/19 12:47) Blood Culture (06/17/19 12:50) Medications Given in ED Current Medications Medications Dose Ordered Sig/Jose Armando Route Start Time Stop Time Status Last Admin Dose Admin Levofloxacin/ Dextrose 150 ml @ 100 mls/hr ONCE ONCE IV 06/17/19 12:45 06/17/19 14:14 06/17/19 13:05 100 MLS/HR Vital Signs/I&O 06/17/19 06/17/19 06/17/19 11:55 11:55 12:44 Temp 36.8 36.8 Pulse 96 96 88 96 96 Resp 13 13 B/P (MAP) 124/56 (78) 124/56 (78) 138/68 (91) 104/68 (80) 76/47 (57) Pulse Ox 94 97 O2 Delivery Room Air Room Air Capillary Refill : Progress Note : Time: 14:15 Progress Note feeling much better after fluids, "ready to go home" Doubt pneumonia, but RAD suspects atelectasis vs infiltrate and rec 14 day repeat CXR. Empiric coverage w Levaquin started. Departure Impression Primary Impression: Pneumonia Qualified Codes: J18.9 - Pneumonia, unspecified organism Additional Impression: Dehydration Disposition: 01 HOME, SELF-CARE Condition: Improved Departure-Patient Inst. Decision time for Depature: 14:00 Referrals: GEOVANNI AQUINO MD (PCP) Primary Care Physician TOBY SMALLS APRN (Family) Primary Care Physician Patient Instructions: Pneumonia in Adults, Dehydration, Adult (DC) Scripts Levofloxacin (Levofloxacin) 750 Mg Tablet 750 MG PO DAILY, #7 TAB Prov: FACUNDO CHO DO 06/17/19 FACUNDO CHO DO Jun 17, 2019 12:00 POS
[2019-06-17 12:08] LABS: HEMATOCRIT 43 % (35-52); HEMOGLOBIN 13.8 G/DL (11.5-16.0); LYMPHOCYTES % (AUTO) 25 % (12-44); MEAN CORPUSCULAR HEMOGLOBIN 29 PG (25-34); MEAN CORPUSCULAR HGB CONC 32 G/DL (32-36); MEAN CORPUSCULAR VOLUME 89 FL (80-99); MEAN PLATELET VOLUME 12.4 FL (7.4-10.4); NEUTROPHILS % (AUTO) 66 % (42-75); PLATELET COUNT 234 10^3/uL (130-400); RED CELL DISTRIBUTION WIDTH 14.3 % (10.0-14.5); WHITE BLOOD COUNT 12.9 10^3/uL (4.3-11.0)
[2019-06-17 12:09] LABS: BASOPHILS # (AUTO) 0.1 10^3/uL (0.0-0.1); BASOPHILS % (AUTO) 1 % (0-10); EOSINOPHILS # (AUTO) 0.2 10^3/uL (0.0-0.3); EOSINOPHILS % (AUTO) 2 % (0-10); LYMPHOCYTES # (AUTO) 3.3 X 10^3 (1.0-4.0); MONOCYTES # (AUTO) 0.8 X 10^3 (0.0-1.0); MONOCYTES % (AUTO) 6 % (0-12); NEUTROPHILS # (AUTO) 8.6 X 10^3 (1.8-7.8)
--- NOTE | 2019-06-17 12:21 | Diagnostic Imaging Report ---
INDICATION: Cough and congestion. COMPARISON: 03/03/2019. TECHNIQUE: 2 radiographs of the chest dated 06/17/2019. FINDINGS: The cardiac silhouette is within normal limits in size. No significant pulmonary vascular congestion. The left lung is clear. Mild right basilar opacities are present, slightly increased since the prior examination. Scarring within the right midlung. No significant pleural effusion. No pneumothorax. Mild scattered osseous degenerative changes without acute osseous abnormality. IMPRESSION: Mild right basilar infiltrate and/or atelectasis. Recommend follow-up radiographs 10-14 days after appropriate therapy to ensure resolution. Dictated by: Dictated on workstation # [id number]
[2019-06-17 12:34] LABS: ALBUMIN 3.6 GM/DL (3.2-4.5); BILIRUBIN,TOTAL 0.2 MG/DL (0.1-1.0); CALCIUM 9.9 MG/DL (8.5-10.1); CREATININE SERUM 1.01 MG/DL (0.60-1.30); POTASSIUM 5.2 MMOL/L (3.6-5.0); TOTAL PROTEIN 7.5 GM/DL (6.4-8.2)
[2019-06-17 12:44] VITALS: BP_SYST 104; BP_SYST 138; BP_SYST 76; BP_DIAS 47; BP_DIAS 68
[2019-06-17] MEDS ORDERED: LEVOFLOXACIN 750 MG/150 ML IV 150 ML IV ONE (12:45)
--- NOTE | 2019-06-17 12:45 | NUR ---
was notified about orthostatic vital signs at this time.
[2019-06-17 14:16] LABS: CLARITY,URINE CLOUDY; COLOR,URINE YELLOW
[2019-06-17 14:17] LABS: BACTERIA,URINE MODERATE /HPF; BILIRUBIN,URINE NEGATIVE (NEGATIVE); GLUCOSE, URINE (UA) 3+ (NEGATIVE); KETONES,URINE NEGATIVE (NEGATIVE); LEUKOCYTE ESTERASE ,URINE 2+ (NEGATIVE); NITRITE,URINE POSITIVE (NEGATIVE); PROTEIN,URINE NEGATIVE (NEGATIVE); WBC,URINE TNTC /HPF
[2019-06-17] MEDS ORDERED: LEVO750T39 PO (14:18)
[2019-06-17 14:40] VITALS: BP 117/93
== END 2019-06-17 14:40 | disposition home or self-care (01) ==
LOC: EDUNIT# 11:18 → ER FS 11:19
DX: J18.9 Pneumonia, unspecified organism (principal); E86.0 Dehydration; I10 Essential (primary) hypertension; E11.40 Type 2 diabetes mellitus with diabetic neuropathy, unspecified; E78.00 Pure hypercholesterolemia, unspecified; J44.9 Chronic obstructive pulmonary disease, unspecified; F41.9 Anxiety disorder, unspecified; F32.9 Major depressive disorder, single episode, unspecified; K21.9 Gastro-esophageal reflux disease without esophagitis; Z87.440 Personal history of urinary (tract) infections; Z90.49 Acquired absence of other specified parts of digestive tract; Z90.710 Acquired absence of both cervix and uterus; Z79.01 Long term (current) use of anticoagulants; Z79.51 Long term (current) use of inhaled steroids; Z79.4 Long term (current) use of insulin; Z88.2 Allergy status to sulfonamides; Z88.1 Allergy status to other antibiotic agents; Z88.7 Allergy status to serum and vaccine; Z88.6 Allergy status to analgesic agent; Z88.8 Allergy status to other drugs, medicaments and biological substances; Z82.49 Family history of ischemic heart disease and other diseases of the circulatory system; Z80.8 Family history of malignant neoplasm of other organs or systems; W19.XXXA Unspecified fall, initial encounter
CPT/HCPCS: 36415; 71046; 80053; 81000; 83605; 85025; 87040; 87077; 87088; 87186

== ENCOUNTER 2019-07-14 12:10 | Inpatient (IN) | payer MEDICARE, MEDICAID ==
[~2019-07-14] VITALS: Ht 175.2 cm; Wt 119.0 kg
[2019-07-14] VITALS (7 sets, daily range): BP systolic 138–185; BP diastolic 71–109
[~2019-07-14 12:10] MED LIST changes: -CLON0.5T13 PO; +CLON0.5T4 PO; +LEVO750T39 PO; +OMEP40CA27 PO; -OMEP40CA36 PO; +TRM50T PO
[2019-07-14] MEDS ORDERED: LACTATED RINGERS 1,000 ML IV ONE ×3 (12:19→15:25)
[2019-07-14 13:37] LABS: BILIRUBIN,URINE NEGATIVE (NEGATIVE); CLARITY,URINE CLOUDY; COLOR,URINE YELLOW; GLUCOSE, URINE (UA) 3+ (NEGATIVE); KETONES,URINE NEGATIVE (NEGATIVE); NITRITE,URINE POSITIVE (NEGATIVE); PROTEIN,URINE NEGATIVE (NEGATIVE)
[2019-07-14 13:38] LABS: BACTERIA,URINE LARGE /HPF; LEUKOCYTE ESTERASE ,URINE 2+ (NEGATIVE); RBC,URINE 0-2 /HPF; WBC,URINE >100 /HPF
[2019-07-14 14:02] LABS: CREATININE SERUM 1.16 MG/DL (0.60-1.30); POTASSIUM 4.1 MMOL/L (3.6-5.0)
[2019-07-14 14:03] LABS: ALBUMIN 3.6 GM/DL (3.2-4.5); BILIRUBIN,TOTAL 0.2 MG/DL (0.1-1.0); CALCIUM 9.6 MG/DL (8.5-10.1); MAGNESIUM 2.3 MG/DL (1.6-2.4); TOTAL PROTEIN 7.8 GM/DL (6.4-8.2)
[2019-07-14 14:04] LABS: BASOPHILS % (AUTO) 1 % (0-10); EOSINOPHILS # (AUTO) 0.2 10^3/uL (0.0-0.3); EOSINOPHILS % (AUTO) 2 % (0-10); HEMATOCRIT 42 % (35-52); HEMOGLOBIN 13.4 G/DL (11.5-16.0); LYMPHOCYTES # (AUTO) 3.1 X 10^3 (1.0-4.0); LYMPHOCYTES % (AUTO) 26 % (12-44); MEAN CORPUSCULAR HEMOGLOBIN 28 PG (25-34); MEAN CORPUSCULAR HGB CONC 32 G/DL (32-36); MEAN CORPUSCULAR VOLUME 89 FL (80-99); MEAN PLATELET VOLUME 11.8 FL (7.4-10.4); MONOCYTES # (AUTO) 0.6 X 10^3 (0.0-1.0); MONOCYTES % (AUTO) 5 % (0-12); NEUTROPHILS # (AUTO) 7.9 X 10^3 (1.8-7.8); NEUTROPHILS % (AUTO) 66 % (42-75); PLATELET COUNT 347 10^3/uL (130-400); RED CELL DISTRIBUTION WIDTH 14.4 % (10.0-14.5); WHITE BLOOD COUNT 11.9 10^3/uL (4.3-11.0)
[2019-07-14 14:05] LABS: BASOPHILS # (AUTO) 0.1 10^3/uL (0.0-0.1)
--- NOTE | 2019-07-14 14:19 | ED General ---
General Chief Complaint: Cardiac/General Problems Stated Complaint: LOW BP; HYPERGLYCEMIA Nursing Triage Note: Patient presents to the ED with c/o low blood pressure. She was sent to the ED by her home health nurse. She states that she just hasn't felt great for the past few weeks. Reports that everytime she eats her stomach gets very tight and she experiences a lot of pain. She states she is supposed to have an ultrasound at the [facility] clinic. Nursing Sepsis Screen: No Definite Risk Source of Information: Patient Exam Limitations: No Limitations History of Present Illness Date Seen by Provider: Jul 14, 2019 Time Seen by Provider: 13:05 Initial Comments Here with report of feeling weak with low blood pressure and high blood sugar. This is apparently per patient's home health nurse. She arrives with normal blood pressure and heart rate of blood sugar greater than 400. She apparently is taking insulin at home. Complains of allover abdominal pain was going to get an ultrasound at 2 PM today [facility]. Denies nausea or vomiting. She did have normal bowel movement yesterday and has had a urination today. She is still passing gas. 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 She follows with Dr. Aquino. Timing/Duration: 12-24 Hours, Other (abdominal pain is 2 weeks) Severity: Moderate Associated Systoms: No Chest Pain, No Cough, No Fever/Chills; Malaise; No N ausea/Vomiting, No Shortness of Air; Weakness Allergies and Home Medications Allergies Coded Allergies: sulfamethoxazole (Verified Allergy, Severe, JOINTS HURT, 12/21/18) trimethoprim (Verified Allergy, Severe, JOINTS HURT, 12/21/18) influenza virus vaccine, specific (Unverified Allergy, Intermediate, rash, 09/23/18) aspirin (Unverified Allergy, Unknown, convulsions, 09/23/18) metformin (Verified Adverse Reaction, Intermediate, joint pain, 09/23/18) hydromorphone HCl (Unverified Adverse Reaction, Mild, VOMITING, 01/06/11) Home Medications Albuterol Sulfate 1 Puff Puff, 2 PUFF IH QID PRN for SHORTNESS OF BREATH, (Reported) Amitriptyline HCl 50 Mg Tablet, 50 MG PO HS, (Reported) Amoxicillin/Potassium Clav 1 Each Tablet, 1 EACH PO BID Prescribed by: SHAUNA CHAUDHARI on 12/22/18 1334 Apixaban 5 Mg Tablet, 5 MG PO BID, (Reported) Cefuroxime Axetil 250 Mg Tablet, 250 MG PO BID Prescribed by: AHSAN BAEZ on 03/03/19 1341 Cranberry Conc/Ascorbic Acid 1 Each Capsule, 1 CAP PO HS, (Reported) Cyclobenzaprine HCl 10 Mg Tablet, 10 MG PO TID, (Reported) Dapagliflozin Propanediol 10 Mg Tablet, 10 MG PO DAILY, (Reported) Duloxetine HCl 30 Mg Capsule.dr, 30 MG PO HS, (Reported) Fluticasone Propionate 16 Gm Rudyard.susp, 2 SPRAYS NS DAILY PRN for CONGESTION, (Reported) Furosemide 40 Mg Tablet, 40 MG PO DAILY, (Reported) Hydroxyzine HCl 50 Mg Tablet, 50 MG PO BID, (Reported) Insulin Aspart 300 Units/3 Ml Solution, 50 UNITS SQ TIDAC, (Reported) Insulin Detemir 100 Unit/1 Ml Insuln.pen, 100 UNIT SQ BID, (Reported) Levofloxacin 750 Mg Tablet, 750 MG PO DAILY Prescribed by: FACUNDO CHO on 06/17/19 1418 Losartan Potassium 100 Mg Tablet, 100 MG PO DAILY, (Reported) Multivitamin 1 Each Tablet, 1 TAB PO DAILY, (Reported) [place] 3 Polyunsat Fatty Acids 1,000 Mg Cap, 1,000 MG PO HS, (Reported) Omeprazole 40 Mg Capsule.dr, 40 MG PO DAILY, (Reported) Potassium Chloride 20 Meq Tablet.er, 20 MEQ PO DAILY, (Reported) Pregabalin 150 Mg Capsule, 150 MG PO TID, (Reported) Rosuvastatin Calcium 40 Mg Tablet, 40 MG PO DAILY, (Reported) Sitagliptin Phosphate 100 Mg Tablet, 100 MG PO DAILY, (Reported) Solifenacin Succinate 5 Mg Tablet, 5 MG PO DAILY, (Reported) Tiotropium [place] 4 Gm Mist.inhal, 2 PUFF INH DAILY, (Reported) Tramadol HCl 50 Mg Tablet, 100 MG PO QID PRN for PAIN-MODERATE, (Reported) TAKES 2 (50MG) TABLETS Patient Home Medication List Home Medication List Reviewed: Yes Review of Systems Review of Systems Constitutional: see HPI; No chills, No fever EENTM: blurred vision; No nose congestion, No throat pain Respiratory: cough; No short of breath Cardiovascular: No chest pain, No edema Gastrointestinal: abdominal pain; No diarrhea, No nausea, No vomiting Genitourinary: decreased output; No dysuria Musculoskeletal: muscle weakness; No neck pain Skin: No change in color, No lesions All Other Systems Reviewed Negative Unless Noted: Yes Past Wmbstqx-Byvwzn-Ymnabr Hx Past Med/Social Hx: Reviewed Nursing Past Med/Soc Hx Patient Social History Alcohol Use: Denies Use Recreational Drug Use: No Smoking Status: Current Everyday Smoker Type Used: Cigarettes 2nd Hand Smoke Exposure: No Recent Foreign Travel: No Contact w/Someone Who Travel: No Recent Infectious Disease Expo: No Recent Hopitalizations: No Physical Abuse: No Sexual Abuse: No Mistreated: No Fear: No Immunizations Up To Date Tetanus Booster (TDap): Unknown PED Vaccines UTD: No Date of Pneumonia Vaccine: May 12, 2012 Seasonal Allergies Seasonal Allergies: No Past Medical History Surgeries: Yes Appendectomy, Gallbladder, Hysterectomy Respiratory: Yes COPD Currently Using CPAP: No Currently Using BIPAP: No Cardiac: Yes High Cholesterol, Hypertension Neurological: Yes Neuropathy Reproductive Disorders: No (partial hysterectomy of R side. ) Female Reproductive Disorders: Denies Sexually Transmitted Disease: No HIV/AIDS: No Genitourinary: Yes Kidney Infection, UTI-Chronic Gastrointestinal: Yes Gastroesophageal Reflux, Pancreatitis, Chronic Diarrhea Musculoskeletal: Yes Arthritis Endocrine: Yes Diabetes, Insulin dep HEENT: Yes Tinnitis Loss of Vision: Bilateral Hearing Impairment: Denies Cancer: No Psychosocial: Yes Anxiety, Depression Integumentary: No Blood Disorders: No Adverse Reaction/Blood Tranf: No Family Medical History Reviewed Nursing Family Hx Alcoholism G8 BROTHER Alzheimer's disease 19 MOTHER Arthritis 19 FATHER 19 MOTHER G8 BROTHER G8 BROTHER G8 BROTHER G8 BROTHER G8 BROTHER G8 SISTER G8 SISTER G8 SISTER G8 SISTER G8 SISTER G8 SISTER Asthma 19 FATHER 19 MOTHER G8 SISTER G8 SISTER Cancer of mouth Cardiovascular disease 19 FATHER 19 MOTHER G8 BROTHER G8 BROTHER G8 SISTER G8 SISTER Completed stroke 19 FATHER G8 SISTER G8 SISTER Dementia G8 BROTHER Diabetes mellitus 19 FATHER 19 MOTHER G8 BROTHER G8 BROTHER G8 BROTHER G8 BROTHER G8 BROTHER G8 SISTER G8 SISTER G8 SISTER G8 SISTER G8 SISTER G8 SISTER Glaucoma 19 MOTHER G8 SISTER G8 SISTER Hypercholesterolemia 19 FATHER 19 MOTHER Hypertension 19 FATHER 19 MOTHER G8 BROTHER G8 BROTHER G8 BROTHER G8 BROTHER G8 BROTHER G8 SISTER G8 SISTER G8 SISTER G8 SISTER G8 SISTER G8 SISTER Myocardial infarction 19 FATHER 19 MOTHER G8 BROTHER G8 BROTHER G8 SISTER G8 SISTER G8 SISTER Osteoporosis G8 SISTER Seizure disorder G8 BROTHER No Family History of: AIDS Abdominal aortic aneurysm Gonzales's disease Aphasia Cataracts Colon cancer Congenital disease Congenital heart disease Coronary thrombosis Cystic fibrosis Deafness or hearing loss Drug abuse Dysphasia Fibrocystic disease of breast Gastroenteritis Headache disorder Infertility Kidney disease Neoplasm Parkinson's disease Prostate cancer Psychosocial problem Severe allergy Thyroid disease Tuberculosis Visual disorder Physical Exam Vital Signs Vital Signs - First Documented 07/14/19 12:14 Temp 36.2 Pulse 87 Resp 16 B/P (MAP) 137/63 (87) Pulse Ox 93 O2 Delivery Room Air Capillary Refill : Less Than 3 Seconds Height, Weight, BMI Height: 5'9.00" Weight: 253lbs. 1.0oz. 114.223974se; 38.00 BMI Method:Stated General Appearance: Mild Distress, Obese HEENT: PERRL/EOMI, Pharynx Normal Neck: Non Tender, Supple Respiratory: Lungs Clear, Normal Breath Sounds Cardiovascular: Regular Rate, Rhythm, No Murmur Gastrointestinal: No Guarding; Tenderness (diffuse mildly greatest in the lower suprapubic region. Difficult exam due to obesity) Back: Normal Inspection, No CVA Tenderness, No Vertebral Tenderness Extremity: Normal Range of Motion, Non Tender Neurologic/Psychiatric: Alert, Oriented x3 Skin: Normal Color, Warm/Dry Focused Exam Lactate Level 07/14/19 12:20: Lactic Acid Level 2.59*H Lactic Acid Level Laboratory Tests Test 07/14/19 12:20 Lactic Acid Level 2.59 MMOL/L (0.50-2.00) *H Procedures/Interventions Suture Size: 4-0 Progress/Results/Core Measures Suspected Sepsis Recent Fever Within 48 Hours: No Infection Criteria Present: Suspected New Infection New/Unexplained Altered Menta: No Sepsis Screen: No Definite Risk SIRS Temperature: Pulse: 87 Respiratory Rate: 16 Laboratory Tests 07/14/19 12:20: White Blood Count 11.9H Blood Pressure 137 /63 Mean: 87 07/14/19 12:20: Lactic Acid Level 2.59*H Laboratory Tests 07/14/19 12:20: Creatinine 1.16, Platelet Count 347, Total Bilirubin 0.2 Results/Orders Lab Results Laboratory Tests Test 07/14/19 12:20 07/14/19 13:05 Range/Units White Blood Count 11.9 H 4.3-11.0 10^3/uL Red Blood Count 4.71 4.35-5.85 10^6/uL Hemoglobin 13.4 11.5-16.0 G/DL Hematocrit 42 35-52 % Mean Corpuscular Volume 89 80-99 FL Mean Corpuscular Hemoglobin 28 25-34 PG Mean Corpuscular Hemoglobin Concent 32 32-36 G/DL Red Cell Distribution Width 14.4 10.0-14.5 % Platelet Count 347 130-400 10^3/uL Mean Platelet Volume 11.8 H 7.4-10.4 FL Neutrophils (%) (Auto) 66 42-75 % Lymphocytes (%) (Auto) 26 12-44 % Monocytes (%) (Auto) 5 0-12 % Eosinophils (%) (Auto) 2 0-10 % Basophils (%) (Auto) 1 0-10 % Neutrophils # (Auto) 7.9 H 1.8-7.8 X 10^3 Lymphocytes # (Auto) 3.1 1.0-4.0 X 10^3 Monocytes # (Auto) 0.6 0.0-1.0 X 10^3 Eosinophils # (Auto) 0.2 0.0-0.3 10^3/uL Basophils # (Auto) 0.1 0.0-0.1 10^3/uL Sodium Level 136 135-145 MMOL/L Potassium Level 4.1 3.6-5.0 MMOL/L Chloride Level 96 L 98-107 MMOL/L Carbon Dioxide Level 26 21-32 MMOL/L Anion Gap 14 5-14 MMOL/L Blood Urea Nitrogen 27 H 7-18 MG/DL Creatinine 1.16 0.60-1.30 MG/DL Estimat Glomerular Filtration Rate 48 BUN/Creatinine Ratio 23 Glucose Level 340 H 70-105 MG/DL Lactic Acid Level 2.59 *H 0.50-2.00 MMOL/L Calcium Level 9.6 8.5-10.1 MG/DL Corrected Calcium 9.9 8.5-10.1 MG/DL Magnesium Level 2.3 1.6-2.4 MG/DL Total Bilirubin 0.2 0.1-1.0 MG/DL Aspartate Amino Transf (AST/SGOT) 30 5-34 U/L Alanine Aminotransferase (ALT/SGPT) 28 0-55 U/L Alkaline Phosphatase 145 H 40-136 U/L Total Protein 7.8 6.4-8.2 GM/DL Albumin 3.6 3.2-4.5 GM/DL Amylase Level 50 25-125 U/L Lipase 65 8-78 U/L Urine Color YELLOW Urine Clarity CLOUDY Urine pH 6.0 5-9 Urine Specific [place] <=1.005 1.016-1.022 Urine Protein NEGATIVE NEGATIVE Urine Glucose (UA) 3+ H NEGATIVE Urine Ketones NEGATIVE NEGATIVE Urine Nitrite POSITIVE H NEGATIVE Urine Bilirubin NEGATIVE NEGATIVE Urine Urobilinogen 0.2 < = 1.0 MG/DL Urine Leukocyte Esterase 2+ H NEGATIVE Urine RBC (Auto) 1+ H NEGATIVE Urine RBC 0-2 /HPF Urine WBC >100 H /HPF Urine Squamous Epithelial Cells 5-10 /HPF Urine Crystals NONE /LPF Urine Bacteria LARGE H /HPF Urine Casts NONE /LPF Urine Mucus NEGATIVE /LPF Urine Culture Indicated YES My Orders Orders - DAISY MIRANDA MD Cbc With Automated Diff (07/14/19 12:19) Comprehensive Metabolic Panel (07/14/19 12:19) Hs C Reactive Protein (07/14/19 12:19) Drug Screen Stat (Urine) (07/14/19 12:19) Magnesium (07/14/19 12:19) Ua Culture If Indicated (07/14/19 12:19) Ed Iv/Invasive Line Start (07/14/19 12:19) Lactated Ringers (Lr 1000 Ml Iv Solution (07/14/19 12:19) Amylase (07/14/19 12:35) Lipase (07/14/19 12:35) Urine Culture (07/14/19 13:05) Lactic Acid Analyzer (07/14/19 13:50) Blood Culture (07/14/19 13:50) Lactated Ringers (Lr 1000 Ml Iv Solution (07/14/19 14:19) Chest 1 View Ap/Pa Only (07/14/19 14:19) Meropenem (Merrem 500 Mg) (07/14/19 14:30) Medications Given in ED Current Medications Medications Dose Ordered Sig/Jose Armando Route Start Time Stop Time Status Last Admin Dose Admin Lactated Ringer's 1,000 ml @ 0 mls/hr Q0M ONCE IV 12/3/19 12:19 07/14/19 12:21 DC 07/14/19 12:27 1,000 MLS/HR Vital Signs/I&O 07/14/19 12:14 Temp 36.2 Pulse 87 Resp 16 B/P (MAP) 137/63 (87) Pulse Ox 93 O2 Delivery Room Air Capillary Refill : Less Than 3 Seconds Blood Pressure Mean: 87 POS Progress Note : Progress Note Seen and evaluated. IV, labs, UA, LR 1 L bolus ordered. Check a blood sugar shows that she is in the 350 range on her home unit. Monitor patient. UA is grossly positive. Rule out blood cultures and lactic acid as well as chest x- ray. 1420: Reviewed her records indicates patient is historically infected with multidrug resistant organism in the urine only sensitive to meropenem. We will initiate meropenem 500 mg IV. Patient's lactic acid is elevated at greater than 2.5. 1422: I discussed the case with Dr. Iqbal. Patient's blood pressure has been greater than 90 systolic and greater than 65 mat throughout the stay but she is borderline. We will initiate second liter of LR and patient will be admitted to the ICU initially. Patient does not require high-volume fluid resuscitation by sepsis protocol but I do believe she is dehydrated due to her uncontrolled diabetes and would benefit from aggressive hydration. After this fluid is complete we will initiate third liter of LR which will exceed the 30 mL/kg bolus for ideal body weight as her BMI is greater than 30. Findings concerns discussed with patient and she agrees to admission. Departure Communication (Admissions) Time/Spoke to Admitting Phy: 14:22 Impression Primary Impression: Severe sepsis Additional Impression: Urinary tract infection Qualified Codes: N30.00 - Acute cystitis without hematuria Disposition: ADMITTED INPATIENT Condition: Stable Admissions Decision to Admit Reason: Admit from ER (General) Decision to Admit/Date: Jul 14, 2019 Time/Decision to Admit Time: 14:22 Departure-Patient Inst. Referrals: GEOVANNI AQUINO MD (PCP) Primary Care Physician TOBY SMALLS APRN (Family) Primary Care Physician DAISY MIRANDA MD Jul 14, 2019 14:18 POS
[2019-07-14 14:27] LABS: AMPHETAMINE SCREEN, URINE NEGATIVE (NEGATIVE); BARBITURATE SCREEN URINE NEGATIVE (NEGATIVE); BENZODIAZEPINES SCREEN URINE NEGATIVE (NEGATIVE); CANNABINOID SCREEN, URINE NEGATIVE (NEGATIVE); COCAINE SCREEN URINE NEGATIVE (NEGATIVE); METHADONE STAT NEGATIVE (NEGATIVE); METHAMPHETAMINE SCREEN URINE S NEGATIVE (NEGATIVE); OPIATE SCREEN URINE NEGATIVE (NEGATIVE); OXYCODONE STAT NEGATIVE (NEGATIVE); PROPOXYPHENE STAT NEGATIVE (NEGATIVE); TRICYCLIC ANTIDEPRESSANTS SCRE POSITIVE (NEGATIVE)
[2019-07-14] MEDS ORDERED: MEROPENEM 500 MG in WATER (STERILE) FOR INJECTION 10 ML IV ONE (14:30)
--- NOTE | 2019-07-14 14:42 | Diagnostic Imaging Report ---
INDICATION: Cough and congestion. Comparison with 06/17/2019. FINDINGS: Portable chest show the lungs to be well aerated. There is no air-trapping. Heart is not enlarged. There is no pulmonary edema or hilar adenopathy. No pneumothorax or pleural effusion. No bony abnormalities. IMPRESSION: Normal portable chest. Dictated by: Dictated on workstation # [id number]
--- NOTE | 2019-07-14 16:35 | NUR ---
MARYANNE ROCK admitted to room CU9-1, with an admitting diagnosis of sepsis, on 07/14/19 from [place] via cart, accompanied by staff.MARYANNE ROCK introduced to surroundings, call light, bed controls, phone, TV, temperature control, lights, meal times, smoking policy, visitor policy, side rail policy, bathrooms and showers. Patient Rights given to patient in the handbook. MARYANNE ROCK verbalizes understanding that [facility] is not responsible for the loss or damage to any personal effects or valuables that are kept in the patients posession during their hospitalization. The following Patient Care Plans were discussed with the pt: Discharge Planning. MARYANNE ROCK verbalizes understanding of Interdisciplinary Patient Education. Patient and/or family were informed about the Rapid Response Team and its purpose.
[2019-07-14] MEDS: NOREPINEPHRINE 4 MG in NS (IVPB) 250 ML IV SCH ×2 (17:40→23:31)
[2019-07-14] MEDS ORDERED: LACTATED RINGERS 1,000 ML IV SCH (17:40)
[2019-07-14] MEDS: VASOPRESSIN INJECTION 20 UNIT in NORMAL SALINE 100 ML IV SCH (17:40)
[2019-07-14] MEDS ORDERED: ONDANSETRON 4 MG/2 ML (SDV) Z0FRAN IV PRN (17:45)
[2019-07-14] MEDS ORDERED: EPINEPHrine 1 MG INJECTION 2 MG in NS (IVPB) 250 ML IV SCH (17:45)
[2019-07-14] MEDS ORDERED: MAGNESIUM 1 GM/D5W 100 ML IVPB IV SCH (18:00)
[2019-07-14] MEDS ORDERED: IBUPROFEN TABLET 200 MG TAB PO PRN (18:00)
[2019-07-14] MEDS ORDERED: CATHETER FLUSH 10 ML SYR IV PRN (18:00)
[2019-07-14] MEDS: LACTATED RINGERS 1,000 ML IV SCH (18:01)
--- NOTE | 2019-07-14 18:24 | NUR ---
Pt has own implanted monitor on left upper arm to check glucose. Ok'd with Dr. Iqbal to use pt's glucometer.
[2019-07-14] MEDS: inSUlin ASPART (NovoLOG) 1 UNIT/0.01 ML (CHARGE PER UNIT) SC SCH (20:52)
--- NOTE | 2019-07-14 21:30 | NUR ---
THIS RN CONTACTED DR. URBINA AT THIS TIME IN REGARDS TO C/O PAIN IN LEGS D/T NEUROPATHY EXPLAINED BY PT. ORDERS RECEIVED AT THIS TIME.
--- NOTE | 2019-07-14 21:33 | History & Physical-Hospitalist ---
History of Present Illness HPI/Chief Complaint Chief complaint: Sepsis due to UTI with ESBL history History of present illness: This is a 54-year-old white female clinic patient of Dr. Burnham at [facility] who presented to the [place] ER with fever and chills found to have a UTI with sepsis and slight hypotension with a history of ESBL so she was pancultured given IV fluids and supportive care and placed on meropenem empirically. Currently she is reporting abdominal pain and urinary retention we will bladder scanner and if needed will insert Bertrand catheter. Patient denies any other significant complaints. Source: patient, RN/MD, old records Exam Limitations: no limitations Date Seen 07/14/19 Time Seen by a Provider: 18:20 Attending Physician Kendra Urbina Katrina M MD Referring Physician Date of Admission Jul 14, 2019 at 15:04 Home Medications & Allergies Home Medications Reviewed patient Home Medication Reconciliation performed by pharmacy medication reconciliations ct technician and/or nursing. Patients Allergies have been reviewed. Allergies Allergies Coded Allergies sulfamethoxazole (Verified Allergy, Severe, JOINTS HURT, 12/21/18) trimethoprim (Verified Allergy, Severe, JOINTS HURT, 12/21/18) influenza virus vaccine, specific (Unverified Allergy, Intermediate, rash, 09/23/18) aspirin (Unverified Allergy, Unknown, convulsions, 09/23/18) metformin (Verified Adverse Reaction, Intermediate, joint pain, 09/23/18) hydromorphone HCl (Unverified Adverse Reaction, Mild, VOMITING, 01/06/11) Past Bdgxplz-Okjfra-Cdsltp Hx Past Med/Social Hx: Reviewed Nursing Past Med/Soc Hx, Reviewed and Corrections made Patient Social History Marrital Status: single Employed/Student: unemployed Alcohol Use: Denies Use Recreational Drug Use: No Smoking Status: Current Everyday Smoker Type Used: Cigarettes 2nd Hand Smoke Exposure: No Recent Foreign Travel: No Contact w/other who traveled: No Recent Hopitalizations: No Recent Infectious Disease Expo: No Immunizations Up To Date Tetanus Booster (TDap): Unknown Pediatric: No Date of Pneumonia Vaccine: May 12, 2012 Seasonal Allergies Seasonal Allergies: No Past Medical History Surgeries: Appendectomy, Gallbladder, Hysterectomy Respiratory: COPD, Pneumonia Currently Using CPAP: No Currently Using BIPAP: No Cardiac: High Cholesterol, Hypertension Neurological: Neuropathy Reproductive: No (partial hysterectomy of R side. ) Sexually Transmitted Disease: No HIV/AIDS: No Female Reproductive Disorders: Denies Genitourinary: Kidney Infection, UTI-Chronic Gastrointestinal: Gastroesophageal Reflux, Pancreatitis, Chronic Diarrhea Musculoskeletal: Arthritis Endocrine: Diabetes, Insulin dep HEENT: Tinnitis Loss of Vision: Bilateral Hearing Impairment: Denies Psychosocial: Anxiety, Depression History of Blood Disorders: No Adverse Reaction to Blood Carlson: No Family History Reviewed Nursing Family Hx Alcoholism G8 BROTHER Alzheimer's disease 19 MOTHER Arthritis 19 FATHER 19 MOTHER G8 BROTHER G8 BROTHER G8 BROTHER G8 BROTHER G8 BROTHER G8 SISTER G8 SISTER G8 SISTER G8 SISTER G8 SISTER G8 SISTER Asthma 19 FATHER 19 MOTHER G8 SISTER G8 SISTER Cancer of mouth Cardiovascular disease 19 FATHER 19 MOTHER G8 BROTHER G8 BROTHER G8 SISTER G8 SISTER Completed stroke 19 FATHER G8 SISTER G8 SISTER Dementia G8 BROTHER Diabetes mellitus 19 FATHER 19 MOTHER G8 BROTHER G8 BROTHER G8 BROTHER G8 BROTHER G8 BROTHER G8 SISTER G8 SISTER G8 SISTER G8 SISTER G8 SISTER G8 SISTER Glaucoma 19 MOTHER G8 SISTER G8 SISTER Hypercholesterolemia 19 FATHER 19 MOTHER Hypertension 19 FATHER 19 MOTHER G8 BROTHER G8 BROTHER G8 BROTHER G8 BROTHER G8 BROTHER G8 SISTER G8 SISTER G8 SISTER G8 SISTER G8 SISTER G8 SISTER Myocardial infarction 19 FATHER 19 MOTHER G8 BROTHER G8 BROTHER G8 SISTER G8 SISTER G8 SISTER Osteoporosis G8 SISTER Seizure disorder G8 BROTHER No Family History of: AIDS Abdominal aortic aneurysm Marvel's disease Aphasia Cataracts Colon cancer Congenital disease Congenital heart disease Coronary thrombosis Cystic fibrosis Deafness or hearing loss Drug abuse Dysphasia Fibrocystic disease of breast Gastroenteritis Headache disorder Infertility Kidney disease Neoplasm Parkinson's disease Prostate cancer Psychosocial problem Severe allergy Thyroid disease Tuberculosis Visual disorder Review of Systems Constitutional: see HPI, fever, malaise, weakness Gastrointestinal: abdominal pain, loss of appetite, nausea Genitourinary: decreased output, hesitancy Physical Exam Physical Exam Vital Signs Vital Signs - First Documented 07/14/19 12:14 Temp 36.2 Pulse 87 Resp 16 B/P (MAP) 137/63 (87) Pulse Ox 93 O2 Delivery Room Air Capillary Refill : Less Than 3 Seconds Height, Weight, BMI Height: 5'9.00" Weight: 253lbs. 1.0oz. 114.333572qt; 38.00 BMI Method:Stated General Appearance: WD/WN, Chronically ill, Mild Distress, Obese Eyes: Right Eye Normal Inspection, Right Eye PERRL HEENT: PERRL/EOMI, Normal ENT Inspection, Pharynx Normal, Moist Mucous Membranes Neck: Full Range of Motion, Normal Inspection, Non Tender Respiratory: Chest Non Tender, Lungs Clear, Normal Breath Sounds, No Accessory Muscle Use, No Respiratory Distress Cardiovascular: Regular Rate, Rhythm, No Edema, No Gallop, No JVD, No Murmur, Normal Peripheral Pulses Gastrointestinal: Normal Bowel Sounds, No Organomegaly, No Pulsatile Mass, Non Tender, Soft Back: Normal Inspection, No CVA Tenderness, No Vertebral Tenderness Extremity: Normal Capillary Refill, Normal Inspection, Normal Range of Motion, Non Tender, No Calf Tenderness, No Pedal Edema Neurologic/Psychiatric: Alert, Oriented x3, No Motor/Sensory Deficits, Normal Mood/Affect Skin: Normal Color, Warm/Dry Lymphatic: No Adenopathy Results Results/Procedures Labs Laboratory Tests 07/14/19 12:20 Patient resulted labs reviewed. 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
[2019-07-14] MEDS: MEROPENEM 500 MG/SWFI 10 ML IV PUSH IV SCH ×2 (23:31)
[2019-07-15] VITALS (12 sets, daily range): BP systolic 121–174; BP diastolic 65–96
[2019-07-15] MEDS: VASOPRESSIN INJECTION 20 UNIT in NORMAL SALINE 100 ML IV SCH (01:58)
[2019-07-15 04:11] LABS: BASOPHILS # (AUTO) 0.1 10^3/uL (0.0-0.1); BASOPHILS % (AUTO) 1 % (0-10); EOSINOPHILS # (AUTO) 0.2 10^3/uL (0.0-0.3); EOSINOPHILS % (AUTO) 2 % (0-10); HEMATOCRIT 37 % (35-52); HEMOGLOBIN 11.7 G/DL (11.5-16.0); LYMPHOCYTES # (AUTO) 2.6 X 10^3 (1.0-4.0); LYMPHOCYTES % (AUTO) 22 % (12-44); MEAN CORPUSCULAR HEMOGLOBIN 28 PG (25-34); MEAN CORPUSCULAR HGB CONC 32 G/DL (32-36); MEAN CORPUSCULAR VOLUME 89 FL (80-99); MEAN PLATELET VOLUME 11.5 FL (7.4-10.4); MONOCYTES % (AUTO) 8 % (0-12); NEUTROPHILS # (AUTO) 8.2 X 10^3 (1.8-7.8); NEUTROPHILS % (AUTO) 68 % (42-75); PLATELET COUNT 268 10^3/uL (130-400); RED CELL DISTRIBUTION WIDTH 14.6 % (10.0-14.5); WHITE BLOOD COUNT 12.1 10^3/uL (4.3-11.0)
[2019-07-15 04:35] LABS: ALBUMIN 3.1 GM/DL (3.2-4.5); BILIRUBIN,TOTAL 0.3 MG/DL (0.1-1.0); CALCIUM 8.8 MG/DL (8.5-10.1); CREATININE SERUM 0.98 MG/DL (0.60-1.30); MAGNESIUM 2.1 MG/DL (1.6-2.4); PHOSPHORUS 4.4 MG/DL (2.3-4.7); POTASSIUM 4.1 MMOL/L (3.6-5.0); TOTAL PROTEIN 6.5 GM/DL (6.4-8.2)
[2019-07-15] MEDS: NOREPINEPHRINE 4 MG in NS (IVPB) 250 ML IV SCH (04:41)
[2019-07-15] MEDS: inSUlin ASPART (NovoLOG) 1 UNIT/0.01 ML (CHARGE PER UNIT) SC SCH ×5 (05:02→21:11)
[2019-07-15] MEDS: MEROPENEM 500 MG/SWFI 10 ML IV PUSH IV SCH ×6 (05:02→19:56)
--- NOTE | 2019-07-15 05:38 | Pulmonary Consultation ---
History of Present Illness History of Present Illness Date Seen by Provider: Jul 15, 2019 Time Seen by Provider: 05:33 Date of Admission History of Present Illness 54yo presented as directed admit from [facility] ED secondary to fever, and chills. Pt was found to have UTI and sepsis. Pt does have hx of ESBL in urine. I am consulted for pulmonary/ICU management. Allergies and Home Medications Allergies Coded Allergies: sulfamethoxazole (Verified Allergy, Severe, JOINTS HURT, 12/21/18) trimethoprim (Verified Allergy, Severe, JOINTS HURT, 12/21/18) influenza virus vaccine, specific (Unverified Allergy, Intermediate, rash, 09/23/18) aspirin (Unverified Allergy, Unknown, convulsions, 09/23/18) metformin (Verified Adverse Reaction, Intermediate, joint pain, 09/23/18) hydromorphone HCl (Unverified Adverse Reaction, Mild, VOMITING, 01/06/11) Home Medications Albuterol Sulfate 1 Puff Puff, 2 PUFF IH QID PRN for SHORTNESS OF BREATH, (Reported) Amitriptyline HCl 50 Mg Tablet, 50 MG PO HS, (Reported) Apixaban 5 Mg Tablet, 5 MG PO BID, (Reported) Cyclobenzaprine HCl 10 Mg Tablet, 10 MG PO TID, (Reported) Dapagliflozin Propanediol 10 Mg Tablet, 10 MG PO DAILY, (Reported) Duloxetine HCl 60 Mg Capsule.dr, 60 MG PO DAILY, (Reported) Fluticasone Propionate 16 Gm [place].susp, 2 SPRAYS NS DAILY PRN for CONGESTION, (Reported) Fosfomycin Tromethamine 3 Gm Pack, 3 GM PO Q48H Start on 07/20/19 (first dose given in Hospital) MIX WITH 4 OUNCES OF COLD WATER Prescribed by: DARRELL URBINA on 07/17/19 1151 Furosemide 40 Mg Tablet, 40 MG PO BID, (Reported) Glucagon,Human Recombinant 1 Mg/Kit Soln, SC UD PRN for HYPOGLYCEMIA, (Reported) Hydroxyzine HCl 50 Mg Tablet, 50 MG PO BID PRN for ANXIETY, (Reported) Insulin Aspart 300 Units/3 Ml Solution, 50 UNITS SQ TIDAC, (Reported) Insulin Detemir 100 Unit/1 Ml Insuln.pen, 80 UNIT SQ BID, (Reported) Losartan Potassium 25 Mg Tablet, 25 MG PO DAILY, (Reported) Melatonin 10 Mg Tablet, 10 MG PO HS PRN for SLEEP, (Reported) Meloxicam 15 Mg Tablet, 15 MG PO DAILY, (Reported) Walker 3 Polyunsat Fatty Acids 1,000 Mg Cap, 1,000 MG PO HS, (Reported) Pantoprazole Sodium 40 Mg Tablet.dr, 40 MG PO DAILY Prescribed by: TAMANNA CORONADO on 07/27/19 1506 Potassium Chloride 20 Meq Tab.er.prt, 20 MEQ PO DAILY, (Reported) Pregabalin 150 Mg Capsule, 150 MG PO TID, (Reported) Rosuvastatin Calcium 40 Mg Tablet, 40 MG PO DAILY, (Reported) Sitagliptin Phosphate 100 Mg Tablet, 100 MG PO DAILY, (Reported) Solifenacin Succinate 5 Mg Tablet, 5 MG PO DAILY, (Reported) Sumatriptan Succinate 50 Mg Tablet, 50 MG PO UD PRN for MIGRAINE, (Reported) TAKE 1 TAB AT ONSET OF MIGRAINE, IF SYMPTOMS PERSIST AFTER 2 HOURS TAKE AN ADDITIONAL TABLET Tiotropium [place] 4 Gm Mist.inhal, 2 PUFF INH DAILY, (Reported) LAST FILLED #1 04-23-19 Zolpidem Tartrate 5 Mg Tablet, 5 MG PO HS PRN for SLEEP, (Reported) Past Kxrjipj-Aghjwn-Wmndil Hx Past Med/Social Hx: Reviewed Nursing Past Med/Soc Hx, Reviewed and Corrections made Patient Social History Alcohol Use: Denies Use Recreational Drug Use: No Smoking Status: Current Everyday Smoker Type Used: Cigarettes 2nd Hand Smoke Exposure: No Recent Foreign Travel: No Contact w/Someone Who Travel: No Recent Infectious Disease Expo: No Recent Hopitalizations: No Physical Abuse: No Sexual Abuse: No Mistreated: No Fear: No Immunizations Up To Date Tetanus Booster (TDap): Unknown PED Vaccines UTD: No Date of Pneumonia Vaccine: May 12, 2012 Seasonal Allergies Seasonal Allergies: No Past Medical History Surgeries: Yes Appendectomy, Gallbladder, Hysterectomy Respiratory: Yes COPD Currently Using CPAP: No Currently Using BIPAP: No Cardiac: Yes High Cholesterol, Hypertension Neurological: Yes Neuropathy Reproductive Disorders: No (partial hysterectomy of R side. ) Female Reproductive Disorders: Denies Sexually Transmitted Disease: No HIV/AIDS: No Genitourinary: Yes Kidney Infection, UTI-Chronic Gastrointestinal: Yes Gastroesophageal Reflux, Pancreatitis, Chronic Diarrhea Musculoskeletal: Yes Arthritis Endocrine: Yes Diabetes, Insulin dep HEENT: Yes Tinnitis Loss of Vision: Bilateral Hearing Impairment: Denies Cancer: No Psychosocial: Yes Anxiety, Depression Integumentary: No Blood Disorders: No Adverse Reaction/Blood Tranf: No Family Medical History Reviewed Nursing Family Hx Alcoholism G8 BROTHER Alzheimer's disease 19 MOTHER Arthritis 19 FATHER 19 MOTHER G8 BROTHER G8 BROTHER G8 BROTHER G8 BROTHER G8 BROTHER G8 SISTER G8 SISTER G8 SISTER G8 SISTER G8 SISTER G8 SISTER Asthma 19 FATHER 19 MOTHER G8 SISTER G8 SISTER Cancer of mouth Cardiovascular disease 19 FATHER 19 MOTHER G8 BROTHER G8 BROTHER G8 SISTER G8 SISTER Completed stroke 19 FATHER G8 SISTER G8 SISTER Dementia G8 BROTHER Diabetes mellitus 19 FATHER 19 MOTHER G8 BROTHER G8 BROTHER G8 BROTHER G8 BROTHER G8 BROTHER G8 SISTER G8 SISTER G8 SISTER G8 SISTER G8 SISTER G8 SISTER Glaucoma 19 MOTHER G8 SISTER G8 SISTER Hypercholesterolemia 19 FATHER 19 MOTHER Hypertension 19 FATHER 19 MOTHER G8 BROTHER G8 BROTHER G8 BROTHER G8 BROTHER G8 BROTHER G8 SISTER G8 SISTER G8 SISTER G8 SISTER G8 SISTER G8 SISTER Myocardial infarction 19 FATHER 19 MOTHER G8 BROTHER G8 BROTHER G8 SISTER G8 SISTER G8 SISTER Osteoporosis G8 SISTER Seizure disorder G8 BROTHER No Family History of: AIDS Abdominal aortic aneurysm [place]'s disease Aphasia Cataracts Colon cancer Congenital disease Congenital heart disease Coronary thrombosis Cystic fibrosis Deafness or hearing loss Drug abuse Dysphasia Fibrocystic disease of breast Gastroenteritis Headache disorder Infertility Kidney disease Neoplasm Parkinson's disease Prostate cancer Psychosocial problem Severe allergy Thyroid disease Tuberculosis Visual disorder Review of Systems Time Seen by Provider: 13:24 Sepsis Event Evaluation Height, Weight, BMI Height: 5'9.00" Weight: 253lbs. 1.0oz. 114.890739gx; 38.00 BMI Method:Stated Exam Exam Vital Signs Date Time Temp Pulse Resp B/P (MAP) Pulse Ox O2 Delivery O2 Flow Rate FiO2 07/15/19 01:00 84 07/15/19 01:00 84 133/65 (87) 93 Nasal Cannula 2.00 07/15/19 00:00 94 Nasal Cannula 2.00 07/15/19 00:00 84 121/72 (88) 96 Nasal Cannula 2.00 07/14/19 23:34 Nasal Cannula 2.00 07/14/19 23:00 86 138/71 (93) 92 Room Air 07/14/19 22:00 85 157/85 (109) 93 Room Air 07/14/19 21:00 87 164/95 (118) 95 Room Air 07/14/19 20:20 36.0 07/14/19 20:00 85 175/105 (128) 95 Room Air 07/14/19 20:00 96 Room Air 07/14/19 19:00 92 07/14/19 19:00 91 185/109 (134) 94 Room Air 07/14/19 18:00 90 176/97 (123) 97 Room Air 07/14/19 17:00 87 16 178/94 (122) 96 Room Air 07/14/19 16:53 90 07/14/19 16:00 36.2 89 16 159/80 93 Room Air 07/14/19 12:14 36.2 87 16 137/63 (87) 93 Room Air I & O 07/15/19 07:00 Intake Total 4180 ml Output Total 700 ml Balance 3480 ml Height & Weight Height: 5'9.00" Weight: 253lbs. 1.0oz. 114.265674wa; 38.00 BMI Method:Stated General Appearance: WD/WN, Chronically ill, Mild Distress, Obese HEENT: PERRL/EOMI, Normal ENT Inspection, Pharynx Normal, Moist Mucous Membranes Neck: Full Range of Motion, Normal Inspection, Non Tender Respiratory: Chest Non Tender, Lungs Clear, Normal Breath Sounds, No Accessory Muscle Use, No Respiratory Distress Cardiovascular: Regular Rate, Rhythm, No Edema, No Gallop, No JVD, No Murmur, Normal Peripheral Pulses Capillary Refill: Less Than 3 Seconds Extremity: Normal Capillary Refill, Normal Inspection, Normal Range of Motion, Non Tender, No Calf Tenderness, No Pedal Edema Neurologic/Psychiatric: Alert, Oriented x3, No Motor/Sensory Deficits, Normal Mood/Affect Skin: Normal Color, Warm/Dry Lymphatic: No Adenopathy Results Lab Laboratory Tests 07/14/19 12:20 07/15/19 03:40 Assessment/Plan Assessment/Plan Severe Sepsis with UTI -Merrem -Marsh cultures pending IDDM Neuropathy RLS Chronic pain STEFANIE STARKS DO Jul 15, 2019 05:38
[2019-07-15] MEDS ORDERED: POTASSIUM CL 10MEQ/50ML IVPB 50 ML IV SCH (06:00)
[2019-07-15] MEDS ORDERED: MAGNESIUM 1 GM/100 ML IVPB 100 ML IV SCH (06:00)
[2019-07-15] MEDS ORDERED: KCL 20 MEQ TAB (K-DUR) PO SCH (06:00)
[2019-07-15] MEDS: LACTATED RINGERS 1,000 ML IV SCH ×3 (06:57→23:47)
[2019-07-15] MEDS: PREGABALIN 150 MG (LYRICA) CAPSULE PO SCH ×3 (08:31→20:37)
--- NOTE | 2019-07-15 08:46 | Progress Note - Hospitalist ---
REHAN VELASCO,MED STUDENT 07/15/19 0846: Subjective HPI/CC On Admission Date Seen by Provider: Jul 15, 2019 Time Seen by Provider: 07:54 Chief complaint: Sepsis due to UTI with ESBL history History of present illness: This is a 54-year-old white female clinic patient of Dr. Burnham at [facility] who presented to the [place] ER with fever and chills found to have a UTI with sepsis and slight hypotension with a history of ESBL so she was pancultured given IV fluids and supportive care and placed on meropenem empirically. Currently she is reporting abdominal pain and urinary retention we will bladder scanner and if needed will insert Bertrand catheter. Patient denies any other significant complaints. Subjective/Events-last exam Pt had bladder scan last night but did not require Bertrand Her urinary symptoms have improved Urine cultures still pending, empiric treatment with meropenem Her only complaints at this time are abdominal pain and constipation She has a family history of colon cancer in both parents Her last colonoscopy was 3 years ago but she states that she is supposed to have one every year Lactic acid level now normal at 1.45 Focused Exam Lactate Level 07/14/19 12:20: Lactic Acid Level 2.59*H 07/14/19 14:30: Lactic Acid Level 2.02*H 07/15/19 05:55: Lactic Acid Level 1.45 Lactic Acid Level Objective Exam Vital Signs Vital Signs Date Time Temp Pulse Resp B/P (MAP) Pulse Ox O2 Delivery O2 Flow Rate FiO2 07/15/19 08:50 36.2 85 20 174/96 (122) 95 Room Air 07/15/19 06:00 2.00 Capillary Refill : Less Than 3 Seconds General Appearance: No Apparent Distress, WD/WN HEENT: PERRL/EOMI, Pharynx Normal Neck: Full Range of Motion, Non Tender, Supple Respiratory: Chest Non Tender, Lungs Clear, Normal Breath Sounds, No Accessory Muscle Use, No Respiratory Distress Cardiovascular: Regular Rate, Rhythm, No Edema, No Murmur Gastrointestinal: Soft; No Distended; Tenderness (mildly tender in epigastric and suprapubic regions) Extremity: Non Tender, No Pedal Edema Neurologic/Psychiatric: Alert, No Motor/Sensory Deficits, Normal Mood/Affect Skin: Normal Color, Warm/Dry Lymphatic: No Adenopathy Results/Procedures Lab Laboratory Tests 07/14/19 12:20 07/15/19 03:40 Patient resulted labs reviewed. Assessment/Plan Assessment and Plan Assess & Plan/Chief Complaint Assessment: Sepsis severe UTI ESBL presumed Neuropathy RLS Chronic pain Constipation Plan: Continue IVF Meropenem Awaiting final culture results Consult general surgery for chronic constipation and family history of colon cancer, consider colonoscopy Clinical Quality Measures DVT/VTE Risk/Contraindication: Risk Factor Score Per Nursin RFS Level Per Nursing on Admit: 4+=Very High KENDRA URBINA DO 07/15/192033: Subjective Subjective/Events-last exam Had a large BM today, complete evacuation and feels much better Will consult Dr. Person for abdominal pain Has a long standing history of cancer in the family of colon and esophageal Pt wants to eat but that will be up to Dr. 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 I reviewed and verified all information documented by the medical student and made modifications to such information, when appropriate. I personally performed the physical exam and medical decision making. Kendra Urbina, Jul 15, 2019,20:34 REHAN VELASCO,MED STUDENT Jul 15, 2019 08:46 KENDRA CHURCH DO Jul 15, 2019 20:34 POS
--- NOTE | 2019-07-15 08:55 | NUR ---
Report given to KATHRYN Abreu on 4th floor.
[2019-07-15] MEDS ORDERED: MELO15TA39 PO (10:10)
[2019-07-15] MEDS ORDERED: DULA0.75 SC (10:10)
[2019-07-15] MEDS ORDERED: SOLI5TAB7 PO (10:10)
[2019-07-15] MEDS ORDERED: GLUC1KIT SC (10:10)
[2019-07-15] MEDS ORDERED: MELA10TA2 PO (10:10)
[2019-07-15] MEDS ORDERED: DULO60CA59 PO (10:10)
[2019-07-15] MEDS ORDERED: ZOLP5TAB7 PO (10:10)
[2019-07-15] MEDS ORDERED: LOSA25TA41 PO (10:10)
[2019-07-15] MEDS ORDERED: SUMA50TA2 PO (10:10)
[2019-07-15] MEDS ORDERED: POTA20TA15 PO (10:10)
--- NOTE | 2019-07-15 10:18 | NUR ---
SPOKE WITH THE PATIENT ABOUT HER MEDICATIONS. SHE STATES [facility] SETS UP ALL OF HER MEDICATIONS FOR HER IN A PILL PROGRESS MAN, THE LIST THAT IS ON HER CHART FROM [facility] SHOULD BE UP TO DATE. I VERIFIED WITH HER THAT SHE DOES HER OWN INSULIN AND INHALERS AND SHE VERIFIED THE UNITS SHE USES. I COMPARED THE LIST FROM HOME HEALTH TO THE EXT MED HX. THE LIST FROM [facility] HAS TRULICITY 0.75MG WEEKLY AND IT HAS BEEN FILLED RECENTLY, HOWEVER WHEN I ASKED THE PATIENT WHAT DAY OF THE WEEK SHE DOES THAT SHE STATES IT HAS BEEN DISCONTINUED FOR NOW SINCE LAST SATURDAY. I REMOVED IT FROM THE MED REC AT THIS TIME. THE LIST FROM [facility] SHOWS LOSARTAN 100MG DAILY, HOWEVER THE EXT MED HX SHOWS THAT THE DOSE HAS BEEN FILLED DIFFERENTLY MULTIPLE TIMES. THE PATIENT VERIFY THE DOSE IS NOW 25MG WHICH IS THE MOST RECENTLY FILLED STRENGTH, I UPDATED THE MED REC WITH THAT DOSE. 07-06-19 LOSARTAN 25MG #90 SERINA 04-23-19 LOSARTAN 50MG #30 SERINA 01-27-19 LOSARTAN 100MG #90 RUTH IN ADDITION TO THE LIST FROM [facility] THE PHARMACY HAS FILLED IMITREX UD PRN RECENTLY, I ADDED IT TO THE MED REC. ZOLPIDEM IS LISTED PRN IT HAS NOT BEEN FILLED SINCE 01-19-19 #30. SPIRIVA HAS NOT BEEN FILLED SINCE 04-23-19 - PATIENT STATES SHE DOES DO 2 PUFFS DAILY, I NOTED THE PAST DUE FILL DATE ON THE MED REC. ALBUTEROL INHALER IS LISTED ON THE LIST FROM [facility] 1 PUFF DAILY, IT HAS NOT BEEN FILLED ACCORDING TO THE EXT MED HX SINCE 01-01-19 - I LEFT IT ON MED REC PRN. CYCLOBENZAPRINE IS LISTED ON THE LIST FROM [facility] 15MG TID, HOWEVER IT DOES NOT COME IN 15MG TABS AND THE PHARMACY FILLED 10MG TABS #90 FOR 30 DAYS. I UPDATED THE MED REC TO 10MG TID. OTC MEDS: MELATONIN 10MG HS PRN FISH OIL HS
--- NOTE | 2019-07-15 14:14 | CONSULTATION REPORT ---
DATE OF SERVICE: 07/15/2019 ATTENDING PRIMARY CARE PHYSICIAN: Dr. Ariana Burnham. ADMITTING PHYSICIAN: Kendra Iqbal DO HISTORY OF PRESENT ILLNESS: The patient is a 54-year-old female who has a history of recurrent urinary tract infections and has also had urosepsis. She presented to [facility] with the same type of symptoms with hypertension and she has a known history of ESBL so that the patient was cultured and started on meropenem empirically. She was then admitted to the hospital. Since being admitted, she has improved. She did have a slight decrease in hemoglobin, however, this is most likely dilutional. Her last colonoscopy was approximately 3 years ago and she believes this to be normal. She does have a strong family history of colon cancer with both her mother and father both having the disease. She does not report any red blood per rectum nor any dark tarry stools. She does have a history of constipation. PAST MEDICAL HISTORY: Recurrent urinary tract infection with history of ESBL and urosepsis. Gastroesophageal reflux disease, history of chronic pancreatitis, insulin-dependent diabetes, tinnitus, anxiety, depression, COPD, pneumonia, neuropathy, hypercholesterolemia, hypertension. PAST SURGICAL HISTORY: Appendectomy, cholecystectomy and hysterectomy. ALLERGIES: BACTRIM, INFLUENZA VACCINE, ASPIRIN, METFORMIN, HYDROCODONE. MEDICATIONS: Albuterol 2 puffs q.i.d. p.r.n., amitriptyline 50 mg daily, Eliquis 5 mg b.i.d., cyclobenzaprine 10 mg t.i.d., Farxiga 10 mg daily, duloxetine 60 mg daily, fluticasone propionate 16 grams spray p.r.n., furosemide 40 mg b.i.d., hydroxyzine 50 mg b.i.d. p.r.n., NovoLog insulin sliding scale, insulin detemir 180 units b.i.d., losartan 25 mg daily, melatonin 10 mg daily, meloxicam 15 mg daily, omeprazole 40 mg daily, potassium chloride 20 mEq daily, pregabalin 150 mg daily, rosuvastatin 40 mg daily, sitagliptin 100 mg daily, solifenacin 5 mg daily, sumatriptan 50 mg daily, tiotropium bromide 2 puffs daily, zolpidem 5 mg daily. SOCIAL HISTORY: Positive smoke 40 pack years. Negative alcohol. FAMILY HISTORY: Brother and sister, diabetes, hypertension, myocardial infarction. Father, myocardial infarction. VITAL SIGNS: Temperature 36.0, blood pressure 174/96, pulse 88, respirations 20, pulse ox 97% on room air. REVIEW OF SYSTEMS: Well-nourished female, currently in no acute distress. She is not experiencing any shortness of breath or difficulty breathing. No chest pain, palpitations, diaphoresis. No nausea, vomiting with intermittent episodes of constipation. No lolly red blood per rectum nor any dark tarry stools. No fever, chills, no recent inadvertent weight loss. All other review of systems negative. PHYSICAL EXAMINATION: CHEST: Scattered rales and decreased breath sounds bilaterally. HEART: Regular, no murmurs. EXTREMITIES: +1/3 bilateral lower extremity edema, negative Homans sign. HEENT: No scleral icterus. NECK: No cervical lymphadenopathy. ABDOMEN: Soft, nontender, nondistended. SKIN: Warm, dry. LABORATORY DATA: WBC 12.1, hemoglobin 11.7, hematocrit 37, platelets 268. BUN 20, creatinine 0.98. Liver function enzymes are normal. Urinalysis 3+ glucose, positive nitrite, 2+ leukocyte esterase, large amount of bacteria, greater than 100 urine wbc's. ASSESSMENT AND PLAN: A 54-year-old female admitted for recurrent urinary tract infection as well as urosepsis and history of ESBL resistant urinary tract infections. She is currently stable; however, she will need a colonoscopy most likely as an outpatient. She does have a strong family history of colon cancer with both of her biologic parents having the disease. It is unsure if she has had any previous polyps. We now have her information and when she is discharged, she does need to call the office to schedule a colonoscopy within the next few weeks. Job ID: [id number] DocumentID: [id number] Dictated Date: 07/15/2019 13:51:31 Inspection Manager Date: 07/15/2019 14:13:35 Dictated By: TAMANNA CORONADO MD
[2019-07-15] MEDS ORDERED: NON-FORMULARY MEDICATION 1 EA EA (Zolpidem Tartrate 5 MG) PO PRN (14:45)
[2019-07-15] MEDS ORDERED: SUMAtriptan 50 MG (IMITREX) TAB PO PRN (14:45)
[2019-07-15] MEDS ORDERED: NON-FORMULARY MEDICATION 1 EA EA (Hydroxyzine HCl 50 MG) PO PRN (14:45)
[2019-07-15] MEDS ORDERED: RT-ALBUTEROL SULF 2.5 MG/3 ML PRE-MIX VIAL IH PRN (14:45)
[2019-07-15] MEDS ORDERED: NON-FORMULARY MEDICATION 1 EA EA (Melatonin 10 MG) PO PRN (14:45)
[2019-07-15] MEDS ORDERED: FLUTICASONE NASAL SPRAY (FLONASE) 16 GM BTL NS PRN (14:45)
[2019-07-15] MEDS ORDERED: MELATONIN 3 MG TABLET PO PRN (15:00)
[2019-07-15] MEDS ORDERED: ZOLPIDEM 5 MG (AMBIEN) TAB PO PRN (15:00)
[2019-07-15] MEDS ORDERED: hydrOXYzine (VISTARIL/ATARAX) 25 MG capsule/tablet PO PRN (15:15)
[2019-07-15] MEDS ORDERED: inSUlin ASPART (NovoLOG) 1 UNIT/0.01 ML (CHARGE PER UNIT) SC SCH ×2 (16:00)
[2019-07-15] MEDS ORDERED: INSULIN ASPART 50 UNIT SQ SCH (16:00)
[2019-07-15] MEDS: FUROSEMIDE 40 MG (LASIX) TAB PO SCH (16:05)
[2019-07-15] MEDS: ENOXAPARIN 40 MG/0.4 ML (LOVENOX) SYR SC SCH (16:05)
[2019-07-15] MEDS: TROSPIUM 20 MG (SANCTURA) TAB PO SCH (16:06)
--- NOTE | 2019-07-15 20:00 | NUR ---
PT RATING PAIN AT 10 TO ABDOMEN AND HIPS. SHE HAD NO ORDERS FOR MEDICATION FOR SEVERE PAIN. DR URBINA ORDERED FENTANYL 50 MCG IVP Q 4 HR PRN SEVERE PAIN 8-10. SHE ALSO ORDERED TO NOT ADMIN ANY OTHER PRN NARCOTIC TONIGHT.
[2019-07-15] MEDS ORDERED: fentaNYL INJECTION 100 MCG/2 ML AMP ONE (20:09)
[2019-07-15] MEDS: fentaNYL INJECTION 100 MCG/2 ML AMP IVP PRN (20:13)
[2019-07-15] MEDS: AMITRIPTYLINE 50 MG (ELAVIL) TAB PO SCH (20:37)
[2019-07-15] MEDS: CYCLOBENZAPRINE 10 MG (FLEXERIL) TAB PO SCH (20:37)
[2019-07-15] MEDS: OMEGA 3 (FISH OIL) 1000 MG CAP PO SCH (20:37)
[2019-07-15] MEDS ORDERED: INSULIN DETEMIR 80 UNIT SQ SCH (21:00)
[2019-07-16] VITALS: BP 133/70
[2019-07-16] MEDS: MEROPENEM 500 MG/SWFI 10 ML IV PUSH IV SCH ×8 (02:39→18:37)
[2019-07-16 04:42] VITALS: BP 134/68
[2019-07-16] MEDS: FUROSEMIDE 40 MG (LASIX) TAB PO SCH ×2 (06:23→17:06)
[2019-07-16] MEDS: KCL 20 MEQ TAB (K-DUR) PO SCH (06:23)
[2019-07-16] MEDS: TROSPIUM 20 MG (SANCTURA) TAB PO SCH ×2 (06:23→17:01)
[2019-07-16] MEDS: fentaNYL INJECTION 100 MCG/2 ML AMP IVP PRN (06:24)
[2019-07-16] MEDS: inSUlin ASPART (NovoLOG) 1 UNIT/0.01 ML (CHARGE PER UNIT) SC SCH ×7 (06:33→22:09)
[2019-07-16 06:39] LABS: BASOPHILS % (AUTO) 0 % (0-10); EOSINOPHILS # (AUTO) 0.2 10^3/uL (0.0-0.3); EOSINOPHILS % (AUTO) 3 % (0-10); HEMATOCRIT 38 % (35-52); HEMOGLOBIN 11.9 G/DL (11.5-16.0); LYMPHOCYTES # (AUTO) 2.7 X 10^3 (1.0-4.0); LYMPHOCYTES % (AUTO) 30 % (12-44); MEAN CORPUSCULAR HEMOGLOBIN 28 PG (25-34); MEAN CORPUSCULAR HGB CONC 31 G/DL (32-36); MEAN CORPUSCULAR VOLUME 90 FL (80-99); MONOCYTES # (AUTO) 0.8 X 10^3 (0.0-1.0); MONOCYTES % (AUTO) 9 % (0-12); NEUTROPHILS # (AUTO) 5.2 X 10^3 (1.8-7.8); NEUTROPHILS % (AUTO) 58 % (42-75); PLATELET COUNT 257 10^3/uL (130-400); RED CELL DISTRIBUTION WIDTH 14.6 % (10.0-14.5); WHITE BLOOD COUNT 8.9 10^3/uL (4.3-11.0)
--- NOTE | 2019-07-16 06:42 | Pulmonary Progress Note ---
Subjective Time Seen by a Provider: 06:42 Subjective/Events-last exam Pt appears to be doing better. Sepsis Event Evaluation Height, Weight, BMI Height: 5'9.00" Weight: 253lbs. 1.0oz. 114.863701vb; 38.00 BMI Method:Stated Focused Exam Lactate Level 07/14/19 12:20: Lactic Acid Level 2.59*H 07/14/19 14:30: Lactic Acid Level 2.02*H 07/15/19 05:55: Lactic Acid Level 1.45 Exam Exam Vital Signs Date Time Temp Pulse Resp B/P (MAP) Pulse Ox O2 Delivery O2 Flow Rate FiO2 07/16/19 06:31 36.4 20 96 Room Air 07/16/19 04:42 134/68 (90) 07/16/19 00:00 36.2 82 18 133/70 (91) 92 Room Air 07/15/19 20:49 36.6 84 18 164/78 (106) 94 Room Air 07/15/19 20:00 Room Air 07/15/19 19:10 Room Air 07/15/19 16:09 36.4 87 20 158/88 (111) 95 Room Air 07/15/19 12:00 36.0 88 20 174/96 (122) 97 Room Air 07/15/19 12:00 Room Air 07/15/19 08:50 36.2 85 20 174/96 (122) 95 Room Air 07/15/19 08:00 88 16 149/87 (107) 93 Room Air 07/15/19 07:49 Room Air 07/15/19 06:49 81 I & O 07/16/19 07:00 Intake Total 3988 ml Balance 3988 ml Height & Weight Height: 5'9.00" Weight: 253lbs. 1.0oz. 114.552630xq; 38.00 BMI Method:Stated General Appearance: No Apparent Distress, WD/WN, Chronically ill, Obese HEENT: PERRL/EOMI, Pharynx Normal Neck: Full Range of Motion, Non Tender, Supple Respiratory: Lungs Clear Cardiovascular: Regular Rate, Rhythm Capillary Refill: Less Than 3 Seconds Extremity: Non Tender, No Pedal Edema Neurologic/Psychiatric: Alert, Oriented x3, No Motor/Sensory Deficits, Normal Mood/Affect Skin: Normal Color, Warm/Dry Lymphatic: No Adenopathy Results Lab Laboratory Tests 12/3/19 12:20 07/15/19 03:40 Assessment/Plan Assessment/Plan Severe Sepsis with UTI with Klebsiella - improving -Merrem currently -CXR is improving IDDM Neuropathy RLS Chronic pain Pt appears to be doing much better and is on RA. I am going to sign off please call with any questions. STEFANIE STARKS DO Jul 16, 2019 06:42 POS
[2019-07-16 07:10] LABS: ALBUMIN 3.3 GM/DL (3.2-4.5); BILIRUBIN,TOTAL 0.3 MG/DL (0.1-1.0); CALCIUM 9.4 MG/DL (8.5-10.1); CREATININE SERUM 0.97 MG/DL (0.60-1.30); POTASSIUM 3.9 MMOL/L (3.6-5.0); TOTAL PROTEIN 6.8 GM/DL (6.4-8.2)
[2019-07-16 08:00] VITALS: BP 145/84
[2019-07-16] MEDS ORDERED: NON-FORMULARY MEDICATION 1 EA EA (Sitagliptin Phosphate (Januvia) 100 MG) PO SCH (09:00)
[2019-07-16] MEDS ORDERED: NON-FORMULARY MEDICATION 1 EA EA (Tiotropium Bromide (Spiriva Respimat 2.5MCG/ACTUATION) 2 INH SCH (09:00)
[2019-07-16] MEDS ORDERED: NON-FORMULARY MEDICATION 1 EA EA (Meloxicam 15 MG) PO SCH (09:00)
[2019-07-16] MEDS ORDERED: NON-FORMULARY MEDICATION 1 EA EA (Dapagliflozin Propanediol (Farxiga) 10 MG) PO SCH (09:00)
[2019-07-16] MEDS ORDERED: PANTOPRAZOLE 40 MG (PROTONIX) TAB PO SCH ×2 (09:00→21:00)
[2019-07-16] MEDS ORDERED: NON-FORMULARY MEDICATION 1 EA EA (Duloxetine HCl 60 MG) PO SCH (09:00)
[2019-07-16] MEDS ORDERED: NON-FORMULARY MEDICATION 1 EA EA (Omeprazole 40 MG) PO SCH (09:00)
[2019-07-16] MEDS ORDERED: NON-FORMULARY MEDICATION 1 EA EA (Rosuvastatin Calcium 40 MG) PO SCH (09:00)
[2019-07-16] MEDS ORDERED: NON-FORMULARY MEDICATION 1 EA EA (Losartan Potassium 25 MG) PO SCH (09:00)
[2019-07-16] MEDS: UMECLIDINIUM BROMIDE (INCRUSE ELLIPTA) 7'S IH SCH (09:20)
[2019-07-16] MEDS: PREGABALIN 150 MG (LYRICA) CAPSULE PO SCH ×3 (09:31→20:14)
[2019-07-16] MEDS: DULoxetine 30 MG (CYMBALTA) CAP PO SCH (09:32)
[2019-07-16] MEDS: LOSARTAN 25 MG (COZAAR) TAB PO SCH (09:32)
[2019-07-16] MEDS: MELOXICAM 7.5 MG (MOBIC) TABLET PO SCH (09:32)
[2019-07-16] MEDS: CYCLOBENZAPRINE 10 MG (FLEXERIL) TAB PO SCH ×3 (09:32→20:13)
[2019-07-16] MEDS: LINAGLIPTIN (TRADJENTA) 5 MG TABLET PO SCH (09:32)
--- NOTE | 2019-07-16 10:43 | Progress Note - Hospitalist ---
REHAN VELASCO,MED STUDENT 07/16/19 1043: Subjective HPI/CC On Admission Date Seen by Provider: Jul 16, 2019 Time Seen by Provider: 08:02 Chief complaint: Sepsis due to UTI with ESBL history History of present illness: This is a 54-year-old white female clinic patient of Dr. Burnham at [facility] who presented to the [facility] with fever and chills found to have a UTI with sepsis and slight hypotension with a history of ESBL so she was pancultured given IV fluids and supportive care and placed on meropenem empirically. Currently she is reporting abdominal pain and urinary retention we will bladder scanner and if needed will insert Bertrand catheter. Patient denies any other significant complaints. Subjective/Events-last exam Patient feeling better today Abdominal pain and dysuria improving Dr. Person planning on colonoscopy outpatient Advanced to general diet, patient tolerating well Lactic acid normalized HbA1c of 10.8, average blood glucose is 263 Focused Exam Lactate Level 07/14/19 12:20: Lactic Acid Level 2.59*H 07/14/19 14:30: Lactic Acid Level 2.02*H 07/15/19 05:55: Lactic Acid Level 1.45 Objective Exam Vital Signs Vital Signs Date Time Temp Pulse Resp B/P (MAP) Pulse Ox O2 Delivery O2 Flow Rate FiO2 07/16/19 09:17 95 Room Air 07/16/19 08:00 2.00 07/16/19 08:00 36.7 84 20 145/84 (104) Capillary Refill : Less Than 3 Seconds General Appearance: No Apparent Distress, WD/WN HEENT: PERRL/EOMI, Pharynx Normal Neck: Full Range of Motion, Non Tender, Supple Respiratory: Chest Non Tender, Lungs Clear, Normal Breath Sounds, No Accessory Muscle Use, No Respiratory Distress Cardiovascular: Regular Rate, Rhythm, No Murmur Gastrointestinal: Non Tender, Soft Extremity: Non Tender, No Calf Tenderness, No Pedal Edema Neurologic/Psychiatric: Alert, No Motor/Sensory Deficits, Normal Mood/Affect Skin: Normal Color, Warm/Dry Lymphatic: No Adenopathy Results/Procedures Lab Laboratory Tests 07/16/19 05:36 Patient resulted labs reviewed. Assessment/Plan Assessment and Plan Assess & Plan/Chief Complaint Assessment: Sepsis severe UTI ESBL presumed Neuropathy RLS Chronic pain Constipation Plan: Continue IVF Meropenem Awaiting final culture sensitivity results Colonoscopy outpatient Add Miralax BID and Metamucil Clinical Quality Measures DVT/VTE Risk/Contraindication: Risk Factor Score Per Nursin RFS Level Per Nursing on Admit: 4+=Very High KENDRA URBINA DO 07/16/199: Subjective Subjective/Events-last exam Awaiting urine culture, it is Klebsiella, will await final since that likely will be ESBL. Colonoscopy will be performed as an outpatient after she has completed antibiotic treatment. Fiber is recommended so will initiate Metamucil and MiraLax BID. Heplock IV fluid. May need swing bed. Review of Systems General: Fatigue Objective Exam General Appearance: No Apparent Distress, WD/WN Respiratory: Lungs Clear Cardiovascular: Regular Rate, Rhythm Diagnosis/Problems Diagnosis/Problems (1) Urinary tract infection Status: Acute Qualifiers: Qualified Codes: N30.00 - Acute cystitis without hematuria (2) ESBL (extended spectrum beta-lactamase) producing bacteria infection Supervisory-Addendum Brief Verification & Attestation Participated in pt care: history, MDM, physical Personally performed: exam, history, MDM, supervision of care Care discussed with: Medical Student Procedures: n/a Results interpretation: Verified all documentation Verification and Attestation of Medical Student E/M Service A medical student performed and documented this service in my presence. I reviewed and verified all information documented by the medical student and made modifications to such information, when appropriate. I personally performed the physical exam and medical decision making. Kendra Urbina, Jul 16, 2019,22:09 REHAN VELASCO,MED STUDENT Jul 16, 2019 10:43 KENDRA CHURCH DO Jul 16, 2019 22:09 POS
--- NOTE | 2019-07-16 11:07 | NUR ---
Swing Bed Note: Order to evaluate for swing bed received. Visited with Moustapha leblanc she indicates that she is up ad nisha in her room et that she walks with her daughter to the cafeteria on 1st floor. She reports that she is not having any difficulties at this time with her ADL's et reports that she is feeling much better since being here and receiving the needed abx. She will need to continue with abx et an oral option is being explored to see if it will meet her needs. Patient does not meet criteria for swing bed at this time. Notified ordering physician et primary care nurse of findings.
[2019-07-16 12:00] VITALS: BP 168/84
--- NOTE | 2019-07-16 14:00 | NUR ---
Pastoral care visit.
[2019-07-16] MEDS: ENOXAPARIN 40 MG/0.4 ML (LOVENOX) SYR SC SCH (15:22)
[2019-07-16 16:07] VITALS: BP 145/75
[2019-07-16] MEDS ORDERED: CALCIUM CARBONATE 500 MG (TUMS) TAB.CHEW PO PRN (17:00)
[2019-07-16] MEDS: LACTATED RINGERS 1,000 ML IV SCH (17:59)
[2019-07-16 19:37] VITALS: BP 139/67
[2019-07-16] MEDS: OMEGA 3 (FISH OIL) 1000 MG CAP PO SCH (20:12)
[2019-07-16] MEDS: AMITRIPTYLINE 50 MG (ELAVIL) TAB PO SCH (20:12)
[2019-07-16] MEDS: POLYETHYLENE GLYCOL 17 GM (MIRALAX) PACK PO SCH (20:18)
[2019-07-16] MEDS ORDERED: ROSUVASTATIN 20 MG (CRESTOR) TABLET PO SCH (21:00)
[2019-07-17] VITALS: BP 111/57
[2019-07-17] MEDS: MEROPENEM 500 MG/SWFI 10 ML IV PUSH IV SCH ×4 (00:54→05:29)
[2019-07-17 04:00] VITALS: BP 149/73
[2019-07-17] MEDS: TROSPIUM 20 MG (SANCTURA) TAB PO SCH (05:29)
[2019-07-17] MEDS: KCL 20 MEQ TAB (K-DUR) PO SCH (05:29)
[2019-07-17] MEDS: FUROSEMIDE 40 MG (LASIX) TAB PO SCH (05:29)
[2019-07-17] MEDS: inSUlin ASPART (NovoLOG) 1 UNIT/0.01 ML (CHARGE PER UNIT) SC SCH ×4 (05:36→11:28)
[2019-07-17 05:39] LABS: BASOPHILS # (AUTO) 0.1 10^3/uL (0.0-0.1); BASOPHILS % (AUTO) 1 % (0-10); EOSINOPHILS # (AUTO) 0.3 10^3/uL (0.0-0.3); EOSINOPHILS % (AUTO) 2 % (0-10); HEMATOCRIT 39 % (35-52); HEMOGLOBIN 12.3 G/DL (11.5-16.0); LYMPHOCYTES # (AUTO) 3.3 X 10^3 (1.0-4.0); LYMPHOCYTES % (AUTO) 28 % (12-44); MEAN CORPUSCULAR HEMOGLOBIN 28 PG (25-34); MEAN CORPUSCULAR HGB CONC 32 G/DL (32-36); MEAN CORPUSCULAR VOLUME 89 FL (80-99); MONOCYTES % (AUTO) 8 % (0-12); NEUTROPHILS # (AUTO) 7.3 X 10^3 (1.8-7.8); NEUTROPHILS % (AUTO) 62 % (42-75); PLATELET COUNT 275 10^3/uL (130-400); RED CELL DISTRIBUTION WIDTH 14.4 % (10.0-14.5); WHITE BLOOD COUNT 11.9 10^3/uL (4.3-11.0)
[2019-07-17 06:14] LABS: ALBUMIN 3.3 GM/DL (3.2-4.5); BILIRUBIN,TOTAL 0.2 MG/DL (0.1-1.0); CALCIUM 9.8 MG/DL (8.5-10.1); CREATININE SERUM 1.23 MG/DL (0.60-1.30); POTASSIUM 4.5 MMOL/L (3.6-5.0); TOTAL PROTEIN 7.1 GM/DL (6.4-8.2)
[2019-07-17] MEDS: LACTATED RINGERS 1,000 ML IV SCH (07:54)
[2019-07-17 08:00] VITALS: BP 120/59
[2019-07-17] MEDS: MELOXICAM 7.5 MG (MOBIC) TABLET PO SCH (08:00)
[2019-07-17] MEDS: PREGABALIN 150 MG (LYRICA) CAPSULE PO SCH (08:00)
[2019-07-17] MEDS: LINAGLIPTIN (TRADJENTA) 5 MG TABLET PO SCH (08:00)
[2019-07-17] MEDS: DULoxetine 30 MG (CYMBALTA) CAP PO SCH (08:00)
[2019-07-17] MEDS: LOSARTAN 25 MG (COZAAR) TAB PO SCH (08:00)
[2019-07-17] MEDS: CYCLOBENZAPRINE 10 MG (FLEXERIL) TAB PO SCH (08:00)
[2019-07-17] MEDS: POLYETHYLENE GLYCOL 17 GM (MIRALAX) PACK PO SCH (08:32)
[2019-07-17] MEDS ORDERED: PSYLLIUM POWDER (METAMUCIL) 5.8 GM PACKET PO SCH (09:00)
[2019-07-17] MEDS: UMECLIDINIUM BROMIDE (INCRUSE ELLIPTA) 7'S IH SCH (09:43)
--- NOTE | 2019-07-17 10:07 | NUR ---
CM/SS Visited pt based on needs for Discharge [facility] Plan: Pt to be discharged to home. Recommend with home care to be resumed - Pt reports being on [facility] for medication management and teaching. DME: No needs at this time Pt is sitting in bed on cell phone. She reports being ready to leave today. Pt reports being really sick when she came to hospital but is feeling better. Educated on medication and taking all of medications as directed. Pt verbalizes understanding. Pt reports being on medicaid now and being able to utilize some of the additional benefits in August 2019. Pt mood is good, and pt reports she really likes her Home Care nurse Sharri. Pt encouraged to follow doctors orders with medication and follow up. Pt verbalizes understanding.
[2019-07-17 11:15] VITALS: BP 161/84
--- NOTE | 2019-07-17 11:21 | NUR ---
Blood sugar is 488 per facility blood glucose monitor. Patient has her own that reports blood sugar is 410. Notified Dr. Iqbal
[2019-07-17] MEDS ORDERED: FOSFOMYCIN 3 GM PACK (MONUROL) PO NR (11:45)
[2019-07-17] MEDS ORDERED: NF-FOSFPKT PO (11:51)
--- NOTE | 2019-07-17 12:53 | Discharge Summary ---
REHAN VELASCO,MED STUDENT 07/17/19 1253: Diagnosis/Chief Complaint Date of Admission Jul 14, 2019 at 15:04 Date of Discharge 07/17/19 Discharge Date: Jul 17, 2019 Discharge Time: 12:43 Admission Diagnosis Assessment: Sepsis severe UTI ESBL presumed Neuropathy RLS Chronic pain Plan: IVF Bladder scan Meropenem Primary Care Valeri Hernández Certified Procedural Coder Discharge Diagnosis Sepsis resolved UTI ESBL Neuropathy RLS Chronic pain Poorly controlled type II diabetes mellitus (1) Urinary tract infection Status: Acute (2) ESBL (extended spectrum beta-lactamase) producing bacteria infection Discharge Summary Procedures/Consulations Pulmonology General Surgery Discharge Physical Exam Allergies: Coded Allergies: sulfamethoxazole (Verified Allergy, Severe, JOINTS HURT, 12/21/18) trimethoprim (Verified Allergy, Severe, JOINTS HURT, 12/21/18) influenza virus vaccine, specific (Unverified Allergy, Intermediate, rash, 09/23/18) aspirin (Unverified Allergy, Unknown, convulsions, 09/23/18) metformin (Verified Adverse Reaction, Intermediate, joint pain, 09/23/18) hydromorphone HCl (Unverified Adverse Reaction, Mild, VOMITING, 01/06/11) Vitals & I&Os Vital Signs Date Time Temp Pulse Resp B/P (MAP) Pulse Ox O2 Delivery O2 Flow Rate FiO2 07/17/19 11:15 36.6 89 18 161/84 (109) 95 Room Air 07/16/19 20:00 2.00 General Appearance: No Apparent Distress, WD/WN HEENT: PERRL/EOMI, Pharynx Normal Respiratory: Chest Non Tender, Normal Breath Sounds, No Accessory Muscle Use, No Respiratory Distress, Wheezing (mild wheezing bilaterally ) Cardiovascular: Regular Rate, Rhythm, No Edema, No Murmur Gastrointestinal: Non Tender, Soft; No Distended Extremity: Non Tender, No Pedal Edema Skin: Normal Color, Warm/Dry Neurologic/Psychiatric: Alert, No Motor/Sensory Deficits, Normal Mood/Affect Hospital Course Was the Problem List Reviewed?: Yes Patient is a 54 y/o female who presented to the ED on 07/14/19 with hypotension and low blood pressure. UA was grossly positive and she has a history of ESBL only sensitive to meropenem. She was admitted with a diagnosis of UTI presumed ESBL and severe sepsis and IV meropenem was started empirically. Pulmonology was consulted for management of COPD. General surgery consulted for abdominal pain and family history of colon cancer, and an outpatient colonoscopy is planned. Labs improving, respiratory status stable, and patient is feeling better. She would like to go home. Patient will be discharged with oral fosfomycin and [facility] health residential care for assistance at home. Labs (last 24 hrs) Laboratory Tests 07/17/19 04:45: White Blood Count 11.9H, Red Blood Count 4.33L, Hemoglobin 12.3, Hematocrit 39, Mean Corpuscular Volume 89, Mean Corpuscular Hemoglobin 28, Mean Corpuscular Hemoglobin Concent 32, Red Cell Distribution Width 14.4, Platelet Count 275, Mean Platelet Volume 12.0H, Neutrophils (%) (Auto) 62, Lymphocytes (%) (Auto) 28, Monocytes (%) (Auto) 8, Eosinophils (%) (Auto) 2, Basophils (%) (Auto) 1, Neutrophils # (Auto) 7.3, Lymphocytes # (Auto) 3.3, Monocytes # (Auto) 1.0, Eosinophils # (Auto) 0.3, Basophils # (Auto) 0.1, Sodium Level 136, Potassium Level 4.5, Chloride Level 98, Carbon Dioxide Level 24, Anion Gap 14, Blood Urea Nitrogen 19H, Creatinine 1.23, Estimat Glomerular Filtration Rate 45, BUN/Creatinine Ratio 15, Glucose Level 292H, Calcium Level 9.8, Corrected Calcium 10.4H, Total Bilirubin 0.2, Aspartate Amino Transf (AST/SGOT) 21, Alanine Aminotransferase (ALT/SGPT) 25, Alkaline Phosphatase 131, Total Protein 7.1, Albumin 3.3 07/17/19 11:17: Glucometer 488*H Microbiology 07/14/19 Blood Culture - Preliminary, Resulted No growth 07/14/19 Urine Culture - Preliminary, Resulted Klebsiella pneumoniae Klebsiella pneumoniae#2 Patient resulted labs reviewed. Pending Labs Laboratory Tests 07/17/19 04:45: White Blood Count 11.9, Red Blood Count 4.33, Hemoglobin 12.3, Hematocrit 39, Mean Corpuscular Volume 89, Mean Corpuscular Hemoglobin 28, Mean Corpuscular Hemoglobin Concent 32, Red Cell Distribution Width 14.4, Platelet Count 275, Mean Platelet Volume 12.0, Neutrophils (%) (Auto) 62, Lymphocytes (%) (Auto) 28, Monocytes (%) (Auto) 8, Eosinophils (%) (Auto) 2, Basophils (%) (Auto) 1, Neutrophils # (Auto) 7.3, Lymphocytes # (Auto) 3.3, Monocytes # (Auto) 1.0, Eosinophils # (Auto) 0.3, Basophils # (Auto) 0.1, Sodium Level 136, Potassium Level 4.5, Chloride Level 98, Carbon Dioxide Level 24, Anion Gap 14, Blood Urea Nitrogen 19, Creatinine 1.23, Estimat Glomerular Filtration Rate 45, BUN/Creatinine Ratio 15, Glucose Level 292, Calcium Level 9.8, Corrected Calcium 10.4, Total Bilirubin 0.2, Aspartate Amino Transf (AST/SGOT) 21, Alanine Aminotransferase (ALT/SGPT) 25, Alkaline Phosphatase 131, Total Protein 7.1, Albumin 3.3 07/17/19 11:17: Glucometer 488 Discharge Home Medications: Active Scripts Active Monurol (Fosfomycin Tromethamine) 3 Gm Pack 3 Gm PO Q48H Start on 07/20/19 (first dose given in Hospital) MIX WITH 4 OUNCES OF COLD WATER Reported Zolpidem Tartrate 5 Mg Tablet 5 Mg PO HS PRN Melatonin 10 Mg Tablet 10 Mg PO HS PRN Glucagon Emergency Kit (Glucagon,Human Recombinant) 1 Mg/Kit Soln SC UD PRN Meloxicam 15 Mg Tablet 15 Mg PO DAILY Solifenacin Succinate 5 Mg Tablet 5 Mg PO DAILY Potassium Chloride 20 Meq Tab.er.prt 20 Meq PO DAILY Sumatriptan Succinate 50 Mg Tablet 50 Mg PO UD PRN TAKE 1 TAB AT ONSET OF MIGRAINE, IF SYMPTOMS PERSIST AFTER 2 HOURS TAKE AN ADDITIONAL TABLET Duloxetine HCl 60 Mg Capsule.dr 60 Mg PO DAILY Losartan Potassium 25 Mg Tablet 25 Mg PO DAILY Spiriva Respimat 2.5MCG/ACTUATION (Tiotropium [place]) 4 Gm Mist.inhal 2 Puff INH DAILY LAST FILLED #1 04-23-19 Fluticasone Propionate 16 Gm [place].susp 2 Sprays NS DAILY PRN Lyrica (Pregabalin) 150 Mg Capsule 150 Mg PO TID Januvia (Sitagliptin Phosphate) 100 Mg Tablet 100 Mg PO DAILY Farxiga (Dapagliflozin Propanediol) 10 Mg Tablet 10 Mg PO DAILY Proair Hfa (Albuterol Sulfate) 1 Puff Puff 2 Puff IH QID PRN Hydroxyzine HCl 50 Mg Tablet 50 Mg PO BID PRN Cyclobenzaprine HCl 10 Mg Tablet 10 Mg PO TID Furosemide 40 Mg Tablet 40 Mg PO BID Fish Oil 1,000 mg Capsule ([place] 3 Polyunsat Fatty Acids) 1,000 Mg Cap 1,000 Mg PO HS Novolog Flexpen (Insulin Aspart) 300 Units/3 Ml Solution 50 Units SQ TIDAC Levemir Flextouch (Insulin Detemir) 100 Unit/1 Ml Insuln.pen 80 Unit SQ BID Omeprazole 40 Mg Capsule.dr 40 Mg PO DAILY Eliquis (Apixaban) 5 Mg Tablet 5 Mg PO BID Rosuvastatin Calcium 40 Mg Tablet 40 Mg PO DAILY Amitriptyline HCl 50 Mg Tablet 50 Mg PO HS Instructions to patient/family Please see electronic discharge instructions given to patient. Clinical Quality Measures DVT/VTE Risk/Contraindication: Risk Factor Score Per Nursin RFS Level Per Nursing on Admit: 4+=Very High KENDRA URBINA DO 07/18/19 0937: Discharge Summary Discharge Physical Exam Allergies: Coded Allergies: sulfamethoxazole (Verified Allergy, Severe, JOINTS HURT, 12/21/18) trimethoprim (Verified Allergy, Severe, JOINTS HURT, 12/21/18) influenza virus vaccine, specific (Unverified Allergy, Intermediate, rash, 09/23/18) aspirin (Unverified Allergy, Unknown, convulsions, 09/23/18) metformin (Verified Adverse Reaction, Intermediate, joint pain, 09/23/18) hydromorphone HCl (Unverified Adverse Reaction, Mild, VOMITING, 01/06/11) General Appearance: No Apparent Distress, WD/WN Respiratory: Chest Non Tender Cardiovascular: Regular Rate, Rhythm Neurologic/Psychiatric: Alert, Oriented x3, No Motor/Sensory Deficits, Normal Mood/Affect Hospital Course Was the Problem List Reviewed?: Yes Hospital course: Pt had an uneventful hospital course for four days, she was placed on IV antibiotics of Meropenem due to ESBL history, and was placed in the ICU for severe sepsis. She did require aggressive IV fluids and overall did very well but abdominal pain prompted consultation with Dr. Person and she will undergo an outpatient colonoscopy and EGD and she was recommended to take regular bowel regimen to prevent constipation. Discussion & Recommendations Discharge Planning: <30 minutes discharge planning Supervisory-Addendum Brief Verification & Attestation Participated in pt care: history, MDM, physical Personally performed: exam, history, MDM, supervision of care Care discussed with: Medical Student Procedures: n/a Results interpretation: Verified all documentation Verification and Attestation of Medical Student E/M Service A medical student performed and documented this service in my presence. I reviewed and verified all information documented by the medical student and made modifications to such information, when appropriate. I personally performed the physical exam and medical decision making. Kendra Urbina, Jul 18, 2019,09:38 Problem Qualifiers (1) Urinary tract infection: Urinary tract infection type: acute cystitis Hematuria presence: without hematuria Qualified Codes: N30.00 - Acute cystitis without hematuria REHAN VELASCO,MED LOUIE Jul 17, 2019 12:53 KENDRA CHURCH DO Jul 18, 2019 09:37 POS
[2019-07-27] MEDS ORDERED: PANT40TA2 PO (15:06)
[2019-09-11] MEDS ORDERED: NITR-68 PO (11:16)
[2019-09-11] MEDS ORDERED: FLUT12AE4 IH (11:16)
[2019-09-11] MEDS ORDERED: SENN-20 PO (11:16)
== END 2019-07-17 13:24 | disposition home health service (06) | DRG 872 ==
LOC: ER FS 12:11 → ICU 15:04 → 4TH 07-15 08:45
PROVIDERS: ADMIT Internal Medicine; ATTEND Internal Medicine
DX: A41.9 Sepsis, unspecified organism (principal); K86.1 Other chronic pancreatitis; N39.0 Urinary tract infection, site not specified; Z16.12 Extended spectrum beta lactamase (ESBL) resistance; F17.210 Nicotine dependence, cigarettes, uncomplicated; E78.00 Pure hypercholesterolemia, unspecified; I10 Essential (primary) hypertension; R65.20 Severe sepsis without septic shock; J44.9 Chronic obstructive pulmonary disease, unspecified; E11.40 Type 2 diabetes mellitus with diabetic neuropathy, unspecified; F41.9 Anxiety disorder, unspecified; K21.9 Gastro-esophageal reflux disease without esophagitis; K52.9 Noninfective gastroenteritis and colitis, unspecified; M19.90 Unspecified osteoarthritis, unspecified site; H54.3 Unqualified visual loss, both eyes; G25.81 Restless legs syndrome; G89.29 Other chronic pain; H93.19 Tinnitus, unspecified ear; B96.1 Klebsiella pneumoniae [K. pneumoniae] as the cause of diseases classified elsewhere; F32.9 Major depressive disorder, single episode, unspecified; Z79.4 Long term (current) use of insulin; Z87.440 Personal history of urinary (tract) infections; Z90.710 Acquired absence of both cervix and uterus
CPT/HCPCS: 36415; 71045; 80053; 80306; 81000; 82150; 82962; 83036; 83605; 83690; 83735; 84100; 85025; 86141; 87040; 87077; 87088; 87184; 87186; 94640; 94760; 96361; 96374

== ENCOUNTER 2019-07-23 14:40 | Outpatient (CLI) | payer MEDICARE, MEDICAID ==
[~2019-07-23] VITALS: Ht 175.3 cm; Wt 120.9 kg
[~2019-07-23 14:40] MED LIST changes: +CLON0.5T13 PO; -CLON0.5T4 PO; +DULA0.75 SC; +DULO60CA59 PO; +GLUC1KIT SC; +LOSA25TA41 PO; +MELA10TA2 PO; +MELO15TA39 PO; +NF-FOSFPKT PO; -OMEP40CA27 PO; +OMEP40CA36 PO; +POTA20TA15 PO; +SOLI5TAB7 PO; +SUMA50TA2 PO; -TRM50T PO
[2019-07-27] MEDS ORDERED: PANT40TA2 PO (15:06)
== END 2019-07-23 16:00 ==
LOC: PREOP 14:40
PROVIDERS: ATTEND Surgery
DX: Z01.818 Encounter for other preprocedural examination (principal)

== ENCOUNTER 2019-09-07 11:29 | Inpatient (IN) | payer MEDICARE, MEDICAID ==
[~2019-09-07] VITALS: Ht 175.2 cm; Wt 122.1 kg
[2019-09-07] VITALS (9 sets, daily range): BP systolic 117–148; BP diastolic 66–80
[~2019-09-07 11:29] MED LIST changes: -CLON0.5T13 PO; +CLON0.5T4 PO; +OMEP40CA27 PO; -OMEP40CA36 PO; +PANT40TA2 PO; +TRM50T PO
--- NOTE | 2019-09-07 11:37 | ED Dyspnea ---
General Stated Complaint: SOB Source of Information: Patient, EMS Exam Limitations: No Limitations History of Present Illness Date Seen by Provider: Sep 07, 2019 Time Seen by Provider: 11:30 Initial Comments Patient presents via EMS with complaint of shortness of air increasing over the past 5 days. Past of using her inhalers patient states she hasn't been able to find him because her medications were "moved around". Also ask about using oxygen and patient says she only uses it at night, not during the day. Denies any chest pain, but is having chest tightness with wheezes and cough. Similar symptoms in the past. Allergies and Home Medications Allergies Coded Allergies: sulfamethoxazole (Verified Allergy, Severe, JOINTS HURT, 12/21/18) trimethoprim (Verified Allergy, Severe, JOINTS HURT, 12/21/18) influenza virus vaccine, specific (Unverified Allergy, Intermediate, rash, 09/23/18) aspirin (Unverified Allergy, Unknown, convulsions, 09/23/18) metformin (Verified Adverse Reaction, Intermediate, joint pain, 09/23/18) hydromorphone HCl (Unverified Adverse Reaction, Mild, VOMITING, 01/06/11) Home Medications Albuterol Sulfate 1 Puff Puff, 2 PUFF IH QID PRN for SHORTNESS OF BREATH, (Reported) Amitriptyline HCl 50 Mg Tablet, 50 MG PO HS, (Reported) Apixaban 5 Mg Tablet, 5 MG PO BID, (Reported) Cyclobenzaprine HCl 10 Mg Tablet, 10 MG PO TID, (Reported) Dapagliflozin Propanediol 10 Mg Tablet, 10 MG PO DAILY, (Reported) Duloxetine HCl 60 Mg Capsule.dr, 60 MG PO DAILY, (Reported) Fluticasone Propionate 16 Gm [place].susp, 2 SPRAYS NS DAILY PRN for CONGESTION, (Reported) Fosfomycin Tromethamine 3 Gm Pack, 3 GM PO Q48H Start on 07/20/19 (first dose given in Hospital) MIX WITH 4 OUNCES OF COLD WATER Prescribed by: DARRELL URBINA on 07/17/19 1151 Furosemide 40 Mg Tablet, 40 MG PO BID, (Reported) Glucagon,Human Recombinant 1 Mg/Kit Soln, SC UD PRN for HYPOGLYCEMIA, (Reported) Hydroxyzine HCl 50 Mg Tablet, 50 MG PO BID PRN for ANXIETY, (Reported) Insulin Aspart 300 Units/3 Ml Solution, 50 UNITS SQ TIDAC, (Reported) Insulin Detemir 100 Unit/1 Ml Insuln.pen, 80 UNIT SQ BID, (Reported) Losartan Potassium 25 Mg Tablet, 25 MG PO DAILY, (Reported) Melatonin 10 Mg Tablet, 10 MG PO HS PRN for SLEEP, (Reported) Meloxicam 15 Mg Tablet, 15 MG PO DAILY, (Reported) [place] 3 Polyunsat Fatty Acids 1,000 Mg Cap, 1,000 MG PO HS, (Reported) Pantoprazole Sodium 40 Mg Tablet.dr, 40 MG PO DAILY Prescribed by: TAMANNA CORONADO on 07/27/19 1506 Potassium Chloride 20 Meq Tab.er.prt, 20 MEQ PO DAILY, (Reported) Pregabalin 150 Mg Capsule, 150 MG PO TID, (Reported) Rosuvastatin Calcium 40 Mg Tablet, 40 MG PO DAILY, (Reported) Sitagliptin Phosphate 100 Mg Tablet, 100 MG PO DAILY, (Reported) Solifenacin Succinate 5 Mg Tablet, 5 MG PO DAILY, (Reported) Sumatriptan Succinate 50 Mg Tablet, 50 MG PO UD PRN for MIGRAINE, (Reported) TAKE 1 TAB AT ONSET OF MIGRAINE, IF SYMPTOMS PERSIST AFTER 2 HOURS TAKE AN ADDITIONAL TABLET Tiotropium [place] 4 Gm Mist.inhal, 2 PUFF INH DAILY, (Reported) LAST FILLED #1 04-23-19 Zolpidem Tartrate 5 Mg Tablet, 5 MG PO HS PRN for SLEEP, (Reported) Patient Home Medication List Home Medication List Reviewed: Yes Review of Systems Review of Systems Constitutional: see HPI, chills; No diaphoresis; malaise EENTM: see HPI, no symptoms reported Respiratory: see HPI, cough, short of breath, wheezing Cardiovascular: no symptoms reported, see HPI; No chest pain Gastrointestinal: No abdominal pain, No diarrhea, No loss of appetite, No vomiting Genitourinary: no symptoms reported Musculoskeletal: no symptoms reported Skin: No change in color, No rash Past Ovnujuu-Aizelt-Neimjd Hx Past Med/Social Hx: Reviewed Nursing Past Med/Soc Hx Patient Social History Type Used: Cigarettes 2nd Hand Smoke Exposure: No Recent Foreign Travel: Yes Recent Hopitalizations: No Immunizations Up To Date Tetanus Booster (TDap): Unknown PED Vaccines UTD: No Date of Pneumonia Vaccine: May 12, 2012 Seasonal Allergies Seasonal Allergies: No Past Medical History Surgeries: Yes Appendectomy, Gallbladder, Hysterectomy Respiratory: Yes COPD Currently Using CPAP: No Currently Using BIPAP: No Cardiac: Yes High Cholesterol, Hypertension Neurological: Yes Neuropathy Reproductive Disorders: No (partial hysterectomy of R side. ) Female Reproductive Disorders: Denies Sexually Transmitted Disease: No HIV/AIDS: No Genitourinary: Yes Kidney Infection, UTI-Chronic Gastrointestinal: Yes Gastroesophageal Reflux, Pancreatitis, Chronic Diarrhea Musculoskeletal: Yes Arthritis Endocrine: Yes Diabetes, Insulin dep HEENT: Yes Tinnitis Loss of Vision: Bilateral Hearing Impairment: Denies Cancer: No Psychosocial: Yes Anxiety, Depression Integumentary: No Blood Disorders: No Adverse Reaction/Blood Tranf: No Family Medical History Alcoholism G8 BROTHER Alzheimer's disease 19 MOTHER Arthritis 19 FATHER 19 MOTHER G8 BROTHER G8 BROTHER G8 BROTHER G8 BROTHER G8 BROTHER G8 SISTER G8 SISTER G8 SISTER G8 SISTER G8 SISTER G8 SISTER Asthma 19 FATHER 19 MOTHER G8 SISTER G8 SISTER Cancer of mouth Cardiovascular disease 19 FATHER 19 MOTHER G8 BROTHER G8 BROTHER G8 SISTER G8 SISTER Completed stroke 19 FATHER G8 SISTER G8 SISTER Dementia G8 BROTHER Diabetes mellitus 19 FATHER 19 MOTHER G8 BROTHER G8 BROTHER G8 BROTHER G8 BROTHER G8 BROTHER G8 SISTER G8 SISTER G8 SISTER G8 SISTER G8 SISTER G8 SISTER Glaucoma 19 MOTHER G8 SISTER G8 SISTER Hypercholesterolemia 19 FATHER 19 MOTHER Hypertension 19 FATHER 19 MOTHER G8 BROTHER G8 BROTHER G8 BROTHER G8 BROTHER G8 BROTHER G8 SISTER G8 SISTER G8 SISTER G8 SISTER G8 SISTER G8 SISTER Myocardial infarction 19 FATHER 19 MOTHER G8 BROTHER G8 BROTHER G8 SISTER G8 SISTER G8 SISTER Osteoporosis G8 SISTER Seizure disorder G8 BROTHER No Family History of: AIDS Abdominal aortic aneurysm Marvel's disease Aphasia Cataracts Colon cancer Congenital disease Congenital heart disease Coronary thrombosis Cystic fibrosis Deafness or hearing loss Drug abuse Dysphasia Fibrocystic disease of breast Gastroenteritis Headache disorder Infertility Kidney disease Neoplasm Parkinson's disease Prostate cancer Psychosocial problem Severe allergy Thyroid disease Tuberculosis Visual disorder Physical Exam Vital Signs Vital Signs - First Documented 09/07/19 11:30 Temp 36.5 Pulse 88 Resp 20 B/P (MAP) 120/69 (86) Pulse Ox 95 O2 Delivery Nasal Cannula O2 Flow Rate 4.00 Capillary Refill : Height, Weight, BMI Height: 5'9.00" Weight: 253lbs. 1.0oz. 114.218743kt; 39.34 BMI Method:Stated General Appearance: No Apparent Distress, WD/WN HEENT: PERRL/EOMI, TMs Normal, Normal ENT Inspection, Pharynx Normal Neck: Normal Inspection, Non Tender, Supple Respiratory: Chest Non Tender, No Accessory Muscle Use, No Respiratory Distress, Other (diffuse expiratory rhonchi and wheezes) Cardiovascular: Regular Rate, Rhythm, No Edema, No JVD Gastrointestinal: Normal Bowel Sounds, Non Tender, Soft; No Distended, No Guarding Extremity: Normal Capillary Refill, Normal Inspection, Non Tender, No Calf Tenderness Neurologic/Psychiatric: Alert, Oriented x3, No Motor/Sensory Deficits, Normal Mood/Affect Skin: Normal Color, Warm/Dry Focused Exam Lactate Level 09/07/19 11:39: Lactic Acid Level 1.41 Lactic Acid Level Laboratory Tests Test 09/07/19 11:39 Lactic Acid Level 1.41 MMOL/L (0.50-2.00) Procedures/Interventions Suture Size: 4-0 Progress/Results/Core Measures Results/Orders Lab Results Laboratory Tests Test 09/07/19 11:39 09/07/19 11:55 09/07/19 12:25 Range/Units White Blood Count 10.0 4.3-11.0 10^3/uL Red Blood Count 4.27 L 4.35-5.85 10^6/uL Hemoglobin 12.2 11.5-16.0 G/DL Hematocrit 38 35-52 % Mean Corpuscular Volume 89 80-99 FL Mean Corpuscular Hemoglobin 29 25-34 PG Mean Corpuscular Hemoglobin Concent 32 32-36 G/DL Red Cell Distribution Width 16.1 H 10.0-14.5 % Platelet Count 191 130-400 10^3/uL Mean Platelet Volume 12.7 H 7.4-10.4 FL Neutrophils (%) (Auto) 71 42-75 % Lymphocytes (%) (Auto) 20 12-44 % Monocytes (%) (Auto) 8 0-12 % Eosinophils (%) (Auto) 0 0-10 % Basophils (%) (Auto) 0 0-10 % Neutrophils # (Auto) 7.1 1.8-7.8 X 10^3 Lymphocytes # (Auto) 2.0 1.0-4.0 X 10^3 Monocytes # (Auto) 0.8 0.0-1.0 X 10^3 Eosinophils # (Auto) 0.0 0.0-0.3 10^3/uL Basophils # (Auto) 0.0 0.0-0.1 10^3/uL Sodium Level 133 L 135-145 MMOL/L Potassium Level 4.2 3.6-5.0 MMOL/L Chloride Level 95 L 98-107 MMOL/L Carbon Dioxide Level 23 21-32 MMOL/L Anion Gap 15 H 5-14 MMOL/L Blood Urea Nitrogen 30 H 7-18 MG/DL Creatinine 0.87 0.60-1.30 MG/DL Estimat Glomerular Filtration Rate > 60 BUN/Creatinine Ratio 34 Glucose Level 302 H 70-105 MG/DL Lactic Acid Level 1.41 0.50-2.00 MMOL/L Calcium Level 9.0 8.5-10.1 MG/DL Corrected Calcium 9.5 8.5-10.1 MG/DL Total Bilirubin 0.2 0.1-1.0 MG/DL Aspartate Amino Transf (AST/SGOT) 15 5-34 U/L Alanine Aminotransferase (ALT/SGPT) 25 0-55 U/L Alkaline Phosphatase 118 40-136 U/L Pro-B-Type Natriuretic Peptide 871.8 H <75.0 PG/ML Total Protein 7.4 6.4-8.2 GM/DL Albumin 3.4 3.2-4.5 GM/DL Troponin I < 0.30 <0.30 NG/ML Urine Color YELLOW Urine Clarity CLEAR Urine pH 5.5 5-9 Urine Specific [place] 1.010 L 1.016-1.022 Urine Protein NEGATIVE NEGATIVE Urine Glucose (UA) 3+ H NEGATIVE Urine Ketones NEGATIVE NEGATIVE Urine Nitrite NEGATIVE NEGATIVE Urine Bilirubin NEGATIVE NEGATIVE Urine Urobilinogen 0.2 < = 1.0 MG/DL Urine Leukocyte Esterase 1+ H NEGATIVE Urine RBC (Auto) 2+ H NEGATIVE Urine RBC 5-10 H /HPF Urine WBC TNTC H /HPF Urine Squamous Epithelial Cells 2-5 /HPF Urine Crystals NONE /LPF Urine Bacteria FEW H /HPF Urine Casts NONE /LPF Urine Mucus NEGATIVE /LPF Urine Culture Indicated YES My Orders Orders - FACUNDO CHO DO Ed Iv/Invasive Line Start (09/07/19 11:31) Chest 1 View Ap/Pa Only (09/07/19 11:31) Cbc With Automated Diff (09/07/19 11:31) Blood Culture (09/07/19 11:31) Comprehensive Metabolic Panel (09/07/19 11:31) Lactic Acid Analyzer (09/07/19 11:31) Urinalysis (09/07/19 11:31) Methylprednisolone Sod Succ (Solu-Medrol (09/07/19 11:45) Albuterol/Ipra Inhalation Soln (Duoneb I (09/07/19 11:45) Svn Small Volume Nebulizer (09/07/19 11:31) Probnp Fs (09/07/19 12:21) Furosemide Injection (Lasix Injection) (09/07/19 12:30) Troponin I Fs (09/07/19 12:30) Urine Culture (09/07/19 12:25) Piperacillin/Tazobactam (Bulk) (Zosyn In (09/07/19 13:30) Arterial Blood Gas (09/07/19 13:50) Influenza A And B Antigens (09/07/19 13:22) Piperacillin Sodium/Tazobactam (Zosyn Vi (09/07/19 13:45) Medications Given in ED Current Medications Medications Dose Ordered Sig/Jose Armando Route Start Time Stop Time Status Last Admin Dose Admin Albuterol/ Ipratropium 3 ml ONCE ONCE INH 09/07/19 11:45 09/07/19 11:46 DC 09/07/19 11:55 3 ML Furosemide 20 mg ONCE ONCE IVP 09/07/19 12:30 09/07/19 12:38 DC 09/07/19 12:46 20 MG Methylprednisolone Sodium Succinate 125 mg ONCE ONCE IVP 09/07/19 11:45 09/07/19 11:46 DC 09/07/19 11:55 125 MG Piperacillin Sod/ Tazobactam Sod 4.5 gm/Sodium Chloride 120 ml @ 240 mls/hr ONCE ONCE IV 09/07/19 13:30 09/07/19 13:59 DC 09/07/19 14:02 240 MLS/HR Vital Signs/I&O 09/07/19 11:30 Temp 36.5 Pulse 88 Resp 20 B/P (MAP) 120/69 (86) Pulse Ox 95 O2 Delivery Nasal Cannula O2 Flow Rate 4.00 Progress Progress Note : Time: 12:21 Progress Note REview of CXR as follows: MPRESSION: 1. Progressive predominantly perihilar mixed interstitial and airspace disease with increased heart size and vessel caliber pattern raises the question of failure and edema. Superimposition of pneumonia in the appropriate scenario could not be excluded. 2. No pleural fluid or pneumothorax. Dictated on workstation # [id number] Dict: 09/07/19 1202 Trans: 09/07/19 1204 [id number] Interpreted by: MITCHELL MYERS Electronically signed by: Departure Communication (Admissions) Time/Spoke to Admitting Phy: 13:29 Discussed HPI and PMHx as well as today's labs and CXR results. Dr Urbina accepts for full admission @ 1329hrs. Impression Primary Impression: CHF (congestive heart failure) Qualified Codes: I50.9 - Heart failure, unspecified Additional Impressions: UTI (urinary tract infection) Qualified Codes: N30.00 - Acute cystitis without hematuria Influenza B Disposition: ADMITTED INPATIENT Condition: Improved Admissions Decision to Admit Reason: Admit from ER (General) Decision to Admit/Date: Sep 07, 2019 Time/Decision to Admit Time: 12:23 Departure-Patient Inst. Referrals: RAFA RAMOS MD (PCP) Primary Care Physician TOBY SMALLS APRN (Family) Primary Care Physician FACUNDO CHO DO Sep 07, 2019 11:37
[2019-09-07 11:45] LABS: HEMATOCRIT 38 % (35-52); HEMOGLOBIN 12.2 G/DL (11.5-16.0); MEAN CORPUSCULAR HEMOGLOBIN 29 PG (25-34)
[2019-09-07] MEDS ORDERED: RT-ALBUTEROL/IPRATROPIUM 3 ML (DUONEB) VIAL INH ONE (11:45)
[2019-09-07] MEDS ORDERED: methylPREDNISolone 125 MG (Solu-MEDROL) VIAL IVP ONE (11:45)
[2019-09-07 11:46] LABS: BASOPHILS % (AUTO) 0 % (0-10); EOSINOPHILS % (AUTO) 0 % (0-10); LYMPHOCYTES % (AUTO) 20 % (12-44); MEAN CORPUSCULAR HGB CONC 32 G/DL (32-36); MEAN CORPUSCULAR VOLUME 89 FL (80-99); MEAN PLATELET VOLUME 12.7 FL (7.4-10.4); MONOCYTES # (AUTO) 0.8 X 10^3 (0.0-1.0); MONOCYTES % (AUTO) 8 % (0-12); NEUTROPHILS # (AUTO) 7.1 X 10^3 (1.8-7.8); NEUTROPHILS % (AUTO) 71 % (42-75); PLATELET COUNT 191 10^3/uL (130-400); RED CELL DISTRIBUTION WIDTH 16.1 % (10.0-14.5)
--- NOTE | 2019-09-07 12:05 | Diagnostic Imaging Report ---
INDICATION: Wheezing, cough, pain. COMPARISON: 07/14/2019. FINDINGS: Five-lobe mixed interstitial and airspace opacities with a predominant perihilar distribution have worsened. Heart size has increased. There is some increased central vascular congestion. IMPRESSION: 1. Progressive predominantly perihilar mixed interstitial and airspace disease with increased heart size and vessel caliber pattern raises the question of failure and edema. Superimposition of pneumonia in the appropriate scenario could not be excluded. 2. No pleural fluid or pneumothorax. Dictated by: Dictated on workstation # [id number]
[2019-09-07 12:06] LABS: ALANINE AMINOTRANSFERASE 25 U/L (0-55); ALBUMIN 3.4 GM/DL (3.2-4.5); ALKALINE PHOSPHATASE 118 U/L (40-136); BILIRUBIN,TOTAL 0.2 MG/DL (0.1-1.0); BUN/CREATININE RATIO 34; CARBON DIOXIDE 23 MMOL/L (21-32); CHLORIDE 95 MMOL/L (98-107); CREATININE SERUM 0.87 MG/DL (0.60-1.30); GFR ESTIMATED > 60; GLUCOSE 302 MG/DL (70-105); POTASSIUM 4.2 MMOL/L (3.6-5.0); SODIUM 133 MMOL/L (135-145); TOTAL PROTEIN 7.4 GM/DL (6.4-8.2)
[2019-09-07] MEDS ORDERED: FUROSEMIDE 40 MG/4 ML INJ (LASIX) IVP ONE (12:30)
[2019-09-07 12:36] LABS: BACTERIA,URINE FEW /HPF; BILIRUBIN,URINE NEGATIVE (NEGATIVE); CLARITY,URINE CLEAR; COLOR,URINE YELLOW; GLUCOSE, URINE (UA) 3+ (NEGATIVE); KETONES,URINE NEGATIVE (NEGATIVE); LEUKOCYTE ESTERASE ,URINE 1+ (NEGATIVE); NITRITE,URINE NEGATIVE (NEGATIVE); PH,URINE 5.5 (5-9); PROTEIN,URINE NEGATIVE (NEGATIVE); WBC,URINE TNTC /HPF
[2019-09-07] MEDS ORDERED: PIPERACILLIN/TAZOBACTAM (BULK) 4.5 GM in NS (IVPB) 100 ML IV ONE (13:30)
[2019-09-07] MEDS ORDERED: PIPERACILLIN/TAZO 4.5 GM VIAL (ZOSYN) IV ONE (13:45)
[2019-09-07] MEDS ORDERED: NS (IVPB) 100 ML ONE (13:46)
[2019-09-07 14:14] LABS: ABG BASE EXCESS 0.1 MMOL/L (-2.5-2.5); ABG OXYGEN SATURATION 87 % (94-100); ABG PCO2 49 MMHG (35-45); ABG PH 7.34 (7.37-7.43); ABG PO2 57 MMHG (79-93); ABG TCO2 27.9 MMOL/L (21.0-31.0)
[2019-09-07 14:15] LABS: ALLENS TEST YES-POS; INSPIRED O2 3L; PATIENT TEMP 36.5; VENTILATOR NO
[2019-09-07] MEDS ORDERED: ACETAMINOPHEN 500 MG TAB (TYLENOL) PO PRN (14:30)
[2019-09-07] MEDS ORDERED: ONDANSETRON 4 MG (ZOFRAN) ORAL DISSOLVE TAB PO PRN (14:30)
[2019-09-07] MEDS ORDERED: ONDANSETRON 4 MG/2 ML (SDV) Z0FRAN IVP PRN (14:30)
[2019-09-07] MEDS ORDERED: diphenhydrAMINE 25 MG TAB (BENADRYL) PO PRN (14:30)
[2019-09-07] MEDS ORDERED: ALPRAZolam 0.25 MG (XANAX) TAB PO PRN (14:30)
[2019-09-07] MEDS ORDERED: MELATONIN 3 MG TABLET PO PRN (14:30)
[2019-09-07] MEDS ORDERED: DOCUSATE SODIUM 100 MG (COLACE) CAP PO PRN (14:30)
[2019-09-07] MEDS ORDERED: LOPERAMIDE 2 MG (IMODIUM) TABLET PO PRN (14:30)
[2019-09-07] MEDS ORDERED: CALCIUM CARBONATE 500 MG (TUMS) TAB.CHEW PO PRN (14:30)
[2019-09-07] MEDS ORDERED: ENOXAPARIN 40 MG/0.4 ML (LOVENOX) SYR SC SCH (14:30)
--- NOTE | 2019-09-07 15:34 | Consultation-Cardiology ---
HPI-Cardiology Cardiology Consultation: Date of Consultation 09/07/19 Date of Admission Attending Physician Kendra Urbina DO Admitting Physician Tj Solorio MD Consulting Physician Alan HAMM MD HPI: Time Seen by a Provider: 15:34 Chief Complaint: Shortness of breath This is a 54-year-old lady with morbid obesity, diabetes, paroxysmal atrial fibrillation on Eliquis, previous history of active smoking, who has been having flulike symptoms for the last few days. However she presented with acute worsening of shortness of breath to [facility]. She was found to be significantly hypoxic and wheezing. She complains of cough and shortness of breath. No significant chest pain. She denies active smoking. No significant pertinent family history. Review of Systems-Cardiology Review of Systems Constitutional: As described under HPI; No As described under HPI, No no symptoms reported, No chills, No fever, No lightheadedness Eyes: No As described under HPI, No no symptoms reported, No blindness, No blurred vision, No contact lenses, No drainage, No decreased acuity, No foreign body sensation, No pain, No vision change Ears/Nose/Throat: No As described under HPI, No no symptoms reported, No chronic hearing loss, No ear discharge, No ear pain, No nasal drainage, No ulcerations Respiratory: No no symptoms reported; As described under HPI; No As described under HPI, No cough; orthopnea; No shortness of breath, No SOB with excertion Cardiovascular: No no symptoms reported; As described under HPI; No As described under HPI, No chest pain, No edema, No irregular heart rate, No lightheadedness, No palpitations Gastrointestinal: No no symptoms reported, No As described under HPI, No abdomen distended, No abdominal pain, No blood streaked bowels, No constipation, No diarrhea, No nausea, No vomiting, No stool coloration changes Genitourinary: No As described under HPI, No burning, No dysuria, No discharge, No frequency, No flank pain, No hematuria, No urgency : Yes : No Skin: No rash, No skin related problems, No ulcerations Psychiatric/Neurological: No anxiety, No depression, No seizure, No focal weakness, No syncope Hematologic: No bleeding abnormalities [id number]-[id number]-Pmfczt Hx Patient Social History Alcohol Use: Denies Use Recreational Drug Use: No Smoking Status: Current Everyday Smoker Type Used: Cigarettes 2nd Hand Smoke Exposure: No Recent Foreign Travel: No Recent Infectious Disease Expo: No Immunizations Up To Date Tetanus Booster (TDap): Unknown Date of Pneumonia Vaccine: May 12, 2012 Past Medical History PMH As described under Assessment. Family Medical History Family History: Alcoholism G8 BROTHER Alzheimer's disease 19 MOTHER Arthritis 19 FATHER 19 MOTHER G8 BROTHER G8 BROTHER G8 BROTHER G8 BROTHER G8 BROTHER G8 SISTER G8 SISTER G8 SISTER G8 SISTER G8 SISTER G8 SISTER Asthma 19 FATHER 19 MOTHER G8 SISTER G8 SISTER Cancer of mouth Cardiovascular disease 19 FATHER 19 MOTHER G8 BROTHER G8 BROTHER G8 SISTER G8 SISTER Completed stroke 19 FATHER G8 SISTER G8 SISTER Dementia G8 BROTHER Diabetes mellitus 19 FATHER 19 MOTHER G8 BROTHER G8 BROTHER G8 BROTHER G8 BROTHER G8 BROTHER G8 SISTER G8 SISTER G8 SISTER G8 SISTER G8 SISTER G8 SISTER Glaucoma 19 MOTHER G8 SISTER G8 SISTER Hypercholesterolemia 19 FATHER 19 MOTHER Hypertension 19 FATHER 19 MOTHER G8 BROTHER G8 BROTHER G8 BROTHER G8 BROTHER G8 BROTHER G8 SISTER G8 SISTER G8 SISTER G8 SISTER G8 SISTER G8 SISTER Myocardial infarction 19 FATHER 19 MOTHER G8 BROTHER G8 BROTHER G8 SISTER G8 SISTER G8 SISTER Osteoporosis G8 SISTER Seizure disorder G8 BROTHER No Family History of: AIDS Abdominal aortic aneurysm [place]'s disease Aphasia Cataracts Colon cancer Congenital disease Congenital heart disease Coronary thrombosis Cystic fibrosis Deafness or hearing loss Drug abuse Dysphasia Fibrocystic disease of breast Gastroenteritis Headache disorder Infertility Kidney disease Neoplasm Parkinson's disease Prostate cancer Psychosocial problem Severe allergy Thyroid disease Tuberculosis Visual disorder Allergies and Home Medications Allergies Coded Allergies: sulfamethoxazole (Verified Allergy, Severe, JOINTS HURT, 12/21/18) trimethoprim (Verified Allergy, Severe, JOINTS HURT, 12/21/18) influenza virus vaccine, specific (Unverified Allergy, Intermediate, rash, 09/23/18) aspirin (Unverified Allergy, Unknown, convulsions, 09/23/18) metformin (Verified Adverse Reaction, Intermediate, joint pain, 09/23/18) hydromorphone HCl (Unverified Adverse Reaction, Mild, VOMITING, 01/06/11) Home Medications Albuterol Sulfate 1 Puff Puff, 2 PUFF IH QID PRN for SHORTNESS OF BREATH, (Reported) Amitriptyline HCl 50 Mg Tablet, 50 MG PO HS, (Reported) Apixaban 5 Mg Tablet, 5 MG PO BID, (Reported) Cyclobenzaprine HCl 10 Mg Tablet, 10 MG PO TID, (Reported) Dapagliflozin Propanediol 10 Mg Tablet, 10 MG PO DAILY, (Reported) Duloxetine HCl 60 Mg Capsule.dr, 60 MG PO DAILY, (Reported) Fluticasone Propionate 16 Gm [place].susp, 2 SPRAYS NS DAILY PRN for CONGESTION, (Reported) Fosfomycin Tromethamine 3 Gm Pack, 3 GM PO Q48H Start on 07/20/19 (first dose given in Hospital) MIX WITH 4 OUNCES OF COLD WATER Prescribed by: KENDRA URBINA on 07/17/19 1151 Furosemide 40 Mg Tablet, 40 MG PO BID, (Reported) Glucagon,Human Recombinant 1 Mg/Kit Soln, SC UD PRN for HYPOGLYCEMIA, (Reported) Hydroxyzine HCl 50 Mg Tablet, 50 MG PO BID PRN for ANXIETY, (Reported) Insulin Aspart 300 Units/3 Ml Solution, 50 UNITS SQ TIDAC, (Reported) Insulin Detemir 100 Unit/1 Ml Insuln.pen, 80 UNIT SQ BID, (Reported) Losartan Potassium 25 Mg Tablet, 25 MG PO DAILY, (Reported) Melatonin 10 Mg Tablet, 10 MG PO HS PRN for SLEEP, (Reported) Meloxicam 15 Mg Tablet, 15 MG PO DAILY, (Reported) [place] 3 Polyunsat Fatty Acids 1,000 Mg Cap, 1,000 MG PO HS, (Reported) Pantoprazole Sodium 40 Mg Tablet.dr, 40 MG PO DAILY Prescribed by: TAMANNA CORONADO on 07/27/19 1506 Potassium Chloride 20 Meq Tab.er.prt, 20 MEQ PO DAILY, (Reported) Pregabalin 150 Mg Capsule, 150 MG PO TID, (Reported) Rosuvastatin Calcium 40 Mg Tablet, 40 MG PO DAILY, (Reported) Sitagliptin Phosphate 100 Mg Tablet, 100 MG PO DAILY, (Reported) Solifenacin Succinate 5 Mg Tablet, 5 MG PO DAILY, (Reported) Sumatriptan Succinate 50 Mg Tablet, 50 MG PO UD PRN for MIGRAINE, (Reported) TAKE 1 TAB AT ONSET OF MIGRAINE, IF SYMPTOMS PERSIST AFTER 2 HOURS TAKE AN ADDITIONAL TABLET Tiotropium [place] 4 Gm Mist.inhal, 2 PUFF INH DAILY, (Reported) LAST FILLED #1 04-23-19 Zolpidem Tartrate 5 Mg Tablet, 5 MG PO HS PRN for SLEEP, (Reported) Patient Home Medication List Home Medication List Reviewed: Yes Physical Exam-Cardiology Physical Exam Vital Signs/I&O 09/07/19 09/07/19 09/07/19 11:30 14:30 15:18 Temp 36.5 36.5 Pulse 88 93 93 Resp 20 20 B/P (MAP) 120/69 (86) 115/67 (86) Pulse Ox 95 92 O2 Delivery Nasal Cannula O2 Flow Rate 4.00 3.00 Capillary Refill : Less Than 3 Seconds Constitutional: appears stated age, AAO x 3, apparent distress, well-developed, well-nourished HEENT: PERRL; No discharge; hearing is well preserved, oral hygience is good; No ulceration, No xanthelasmas are seen Neck: No carotid bruit; carotid pulses are 2 + bilaterally Respiratory: chest is bilaterally symmetric, other (course breath sounds bilaterally.) Cardiovascular: regular rate-rhythm, tachycardia, S1 and S2 Gastrointestinal: soft, distended, audible bowel sounds; No spleenomegaly Rectal: deferred Extremities: normal range of motion, non-tender, normal inspection, pedal edema; No clubbing, No cyanosis, No significant edema Neurologic/Psychiatric: no motor/sensory deficits, alert, normal mood/affect, oriented x 3, power is 5/5 both on sides Skin: normal color, warm/dry; No rash, No ulcerations Data Review Labs Laboratory Tests 09/07/19 11:39: White Blood Count 10.0, Red Blood Count 4.27L, Hemoglobin 12.2, Hematocrit 38, Mean Corpuscular Volume 89, Mean Corpuscular Hemoglobin 29, Mean Corpuscular Hemoglobin Concent 32, Red Cell Distribution Width 16.1H, Platelet Count 191, Mean Platelet Volume 12.7H, Neutrophils (%) (Auto) 71, Lymphocytes (%) (Auto) 20, Monocytes (%) (Auto) 8, Eosinophils (%) (Auto) 0, Basophils (%) (Auto) 0, Neutrophils # (Auto) 7.1, Lymphocytes # (Auto) 2.0, Monocytes # (Auto) 0.8, Eosinophils # (Auto) 0.0, Basophils # (Auto) 0.0, Sodium Level 133L, Potassium Level 4.2, Chloride Level 95L, Carbon Dioxide Level 23, Anion Gap 15H, Blood Urea Nitrogen 30H, Creatinine 0.87, Estimat Glomerular Filtration Rate > 60, BUN/Creatinine Ratio 34, Glucose Level 302H, Lactic Acid Level 1.41, Calcium Level 9.0, Corrected Calcium 9.5, Total Bilirubin 0.2, Aspartate Amino Transf (AST/SGOT) 15, Alanine Aminotransferase (ALT/SGPT) 25, Alkaline Phosphatase 118, Pro-B-Type Natriuretic Peptide 871.8H, Total Protein 7.4, Albumin 3.4 09/07/19 11:55: Troponin I < 0.30 09/07/19 12:25: Urine Color YELLOW, Urine Clarity CLEAR, Urine pH 5.5, Urine Specific [place] 1.010L, Urine Protein NEGATIVE, Urine Glucose (UA) 3+H, Urine Ketones NEGATIVE, Urine Nitrite NEGATIVE, Urine Bilirubin NEGATIVE, Urine Urobilinogen 0.2, Urine Leukocyte Esterase 1+H, Urine RBC (Auto) 2+H, Urine RBC 5-10H, Urine WBC TNTCH, Urine Squamous Epithelial Cells 2-5, Urine Crystals NONE, Urine Bacteria FEWH, Urine Casts NONE, Urine Mucus NEGATIVE, Urine Culture Indicated YES 09/07/19 13:53: Blood Gas Puncture Site RT RAD, Blood Gas Patient Temperature 36.5, Arterial Blood pH 7.34*L, Arterial Blood Partial Pressure CO2 49H, Arterial Blood Partial Pressure O2 57L, Arterial Blood HCO3 26, Arterial Blood Total CO2 27.9, Arterial Blood Oxygen Saturation 87L, Arterial Blood Base Excess 0.1, Yamil Test YES-POS, Blood Gas Ventilator Setting NO, Blood Gas Inspired Oxygen 3L Microbiology 09/07/19 Influenza Types A,B Antigen ([place]) - Final, Complete ECG Impression ECG Initial ECG Rhythm: S.Tach A/P-Cardiology Assessment/Admission Diagnosis Acute respiratory failure, Acute influenza, Acute congestive heart failure, Paroxysmal atrial fibrillation, Diabetes, Morbid obesity, Hyponatremia, Hypertension, Hyperlipidemia Plan Acute respiratory failure, likely multifactorial. Acute influenza, pneumonia, acute congestive heart failure. Defer to the primary team. Acute influenza, for to the primary team. Acute congestive heart failure, elevated BNP. However due to sepsis I would avoid Lasix for now. Echocardiogram. Paroxysmal atrial fibrillation, on Eliquis. Currently sinus tachycardia. Diabetes, continue outpatient medical therapy. Defer to the primary team. Morbid obesity, Hyponatremia, could be secondary to congestive heart failure. Hypertension, continue outpatient medical therapy. Hyperlipidemia, continue statin therapy. Thank you for your consultation. Please call me if you have any questions. Cliff Hamm MD, FACP, FACC, FSCAI, FHRS, CCDS Interventional Cardiology Cardiac Electrophysiology Vascular Medicine and Endovascular Interventions Alan HAMM MD Sep 07, 2019 15:34
[2019-09-07] MEDS ORDERED: CATHETER FLUSH 10 ML SYR IV PRN (15:45)
[2019-09-07] MEDS ORDERED: DULA0.75 SC (15:55)
[2019-09-07] MEDS ORDERED: OMEP40CA27 PO (15:55)
--- NOTE | 2019-09-07 16:12 | NUR ---
PATIENT STATES SHE IS UNSURE OF HER MEDICATIONS BUT SHE BROUGHT IN HER LIST FROM [facility]. THERE ARE SOME CORRECTIONS HAND WRITTEN ON THIS LIST. I COMPARED THE LIST FROM HOME [facility] WITH THE EXT MED HX. PATIENT WAS USING [facility] HOWEVER HAS RECENTLY SWITCHED TO [facility]. SHE STATES SHE HAS NOT FILLED MANY AT [facility] YET SHE HAS NOT RAN OUT OF HER SUPPLY THAT WAS FILLED AT [facility]. HOME HEALTH MED LIST HAS THE ZOLPIDEM MARKED OUT, IT HAS NOT BEEN FILLED SINCE JANUARY FOR 30 TABS- I REMOVED IT FROM THE MED REC AT THIS TIME. PATIENT STATES HER TRULICITY HAS BEEN RESTARTED, SHE USES IT ON SATURDAY. IN ADDITION TO THE LIST FROM [facility] SHE USES MELATONIN OTC AND IMITREX AND GLUCAGON PRN. FLEXERIL IS STILL ON THE LIST 15MG TID, IT IS FILLED 10MG TID AND THAT IS HOW I LEFT IT ON THE MED REC. LOSARTAN IS STILL ON THE INTEGRITY LIST 100MG DAILY HOWEVER 25MG WAS THE MOST RECENTLY FILLED STRENGTH. LAST TIME THE PATIENT WAS HERE SHE VERIFIED 25MG WAS THE CURRENT DOSE. SEE PREVIOUS ADMISSIONS NOTES FOR MORE DETAILS. SEVERAL OF THE CHANGES NOTED PREVIOUSLY REMAIN THE SAME FOR THIS VISIT.
--- NOTE | 2019-09-07 16:19 | History & Physical-Hospitalist ---
[facility] 09/07/19 1619: History of Present Illness HPI/Chief Complaint CC: Shortness of breath and Cough HPI: Moustapha is a 54 year old Female in mild distress with history of recurrent UTI, COPD, Asthma, Dyspnea on exertion, pancreatitis, GERD, CHF, Diabetes, HTN, Depression and anxiety that presented to the [place] ED after her nurse that sees her weekly to prepare her meds called an ambulance. Patient said she was feeling short of breath and was coughing a lot and was not feeling well. Nasal swab was positive for Influenza B and CXR shows possible heart failure, edema and pneumonia. Patient uses oxygen at night. Patient complains of headaches and blurry vision, difficultly breathing, chest pain that she attributes to her c ough, chronic constipation and diarrhea, painful urination and generalized muscle pain/weakness. Patient says she experiences chills at night. She denies night sweats, nausea, vomiting, blood in stool or urine, difficulty speaking or changes in hearing. Patient had a bowel movement yesterday in the morning. Abdomen is soft and there is tenderness in the suprapubic region. During my visit, patient became tearful when asked about her depression, she says her family does not see her and she lives alone. Patient denies smoking or recreational drugs but admits to smoking 3-4 cigarettes per day. Source: patient Date Seen 09/07/19 Time Seen by a Provider: 03:30 Attending Physician Kendra Iqbal Pankaj K MD Referring Physician Date of Admission Sep 07, 2019 at 13:50 Home Medications & Allergies Home Medications Reviewed patient Home Medication Reconciliation performed by pharmacy medication reconciliations donor center technician and/or nursing. Patients Allergies have been reviewed. Allergies Allergies Coded Allergies sulfamethoxazole (Verified Allergy, Severe, JOINTS HURT, 12/21/18) trimethoprim (Verified Allergy, Severe, JOINTS HURT, 12/21/18) influenza virus vaccine, specific (Unverified Allergy, Intermediate, rash, 09/23/18) aspirin (Unverified Allergy, Unknown, convulsions, 09/23/18) metformin (Verified Adverse Reaction, Intermediate, joint pain, 09/23/18) hydromorphone HCl (Unverified Adverse Reaction, Mild, VOMITING, 01/06/11) Past Xpqrcip-Rglbqw-Qgmbrf Hx Past Med/Social Hx: Reviewed Nursing Past Med/Soc Hx Patient Social History Alcohol Use: Denies Use Recreational Drug Use: No Smoking Status: Current Everyday Smoker (3-4 Cig per day) Type Used: Cigarettes 2nd Hand Smoke Exposure: No Recent Foreign Travel: No Contact w/other who traveled: No Recent Hopitalizations: No Recent Infectious Disease Expo: No Immunizations Up To Date Tetanus Booster (TDap): Unknown Pediatric: No Date of Pneumonia Vaccine: May 12, 2012 Seasonal Allergies Seasonal Allergies: No Past Medical History Surgeries: Appendectomy, Gallbladder, Hysterectomy Respiratory: Asthma, COPD, Pneumonia Currently Using CPAP: No Currently Using BIPAP: No Cardiac: High Cholesterol, Hypertension Neurological: Neuropathy Reproductive: No (partial hysterectomy of R side. ) Sexually Transmitted Disease: No HIV/AIDS: No Female Reproductive Disorders: Denies Genitourinary: Kidney Infection, UTI-Chronic Gastrointestinal: Gastroesophageal Reflux, Pancreatitis, Chronic Diarrhea Musculoskeletal: Arthritis Endocrine: Diabetes, Insulin dep HEENT: Tinnitis Loss of Vision: Bilateral Hearing Impairment: Denies Psychosocial: Anxiety, Depression History of Blood Disorders: No Adverse Reaction to Blood Carlson: No Family History Alcoholism G8 BROTHER Alzheimer's disease 19 MOTHER Arthritis 19 FATHER 19 MOTHER G8 BROTHER G8 BROTHER G8 BROTHER G8 BROTHER G8 BROTHER G8 SISTER G8 SISTER G8 SISTER G8 SISTER G8 SISTER G8 SISTER Asthma 19 FATHER 19 MOTHER G8 SISTER G8 SISTER Cancer of mouth Cardiovascular disease 19 FATHER 19 MOTHER G8 BROTHER G8 BROTHER G8 SISTER G8 SISTER Completed stroke 19 FATHER G8 SISTER G8 SISTER Dementia G8 BROTHER Diabetes mellitus 19 FATHER 19 MOTHER G8 BROTHER G8 BROTHER G8 BROTHER G8 BROTHER G8 BROTHER G8 SISTER G8 SISTER G8 SISTER G8 SISTER G8 SISTER G8 SISTER Glaucoma 19 MOTHER G8 SISTER G8 SISTER Hypercholesterolemia 19 FATHER 19 MOTHER Hypertension 19 FATHER 19 MOTHER G8 BROTHER G8 BROTHER G8 BROTHER G8 BROTHER G8 BROTHER G8 SISTER G8 SISTER G8 SISTER G8 SISTER G8 SISTER G8 SISTER Myocardial infarction 19 FATHER 19 MOTHER G8 BROTHER G8 BROTHER G8 SISTER G8 SISTER G8 SISTER Osteoporosis G8 SISTER Seizure disorder G8 BROTHER No Family History of: AIDS Abdominal aortic aneurysm Marvel's disease Aphasia Cataracts Colon cancer Congenital disease Congenital heart disease Coronary thrombosis Cystic fibrosis Deafness or hearing loss Drug abuse Dysphasia Fibrocystic disease of breast Gastroenteritis Headache disorder Infertility Kidney disease Neoplasm Parkinson's disease Prostate cancer Psychosocial problem Severe allergy Thyroid disease Tuberculosis Visual disorder Cancer (Father had skin cancer) Review of Systems Constitutional: chills EENTM: blurred vision Respiratory: cough, dyspnea on exertion, short of breath Cardiovascular: no symptoms reported Gastrointestinal: abdominal pain, constipation, diarrhea, heartburn; No nausea, No vomiting Genitourinary: dysuria; No hematuria Musculoskeletal: muscle pain Skin: no symptoms reported Psychiatric/Neurological: Anxiety, Depressed Physical Exam Physical Exam Vital Signs Vital Signs - First Documented 09/07/19 11:30 Temp 36.5 Pulse 88 Resp 20 B/P (MAP) 120/69 (86) Pulse Ox 95 O2 Delivery Nasal Cannula O2 Flow Rate 4.00 Capillary Refill : Less Than 3 Seconds Height, Weight, BMI Height: 5'9.00" Weight: 253lbs. 1.0oz. 114.144123ow; 39.00 BMI Method:Stated General Appearance: WD/WN, Mild Distress, Obese Neck: Tender Lateral Respiratory: Chest Non Tender, No Accessory Muscle Use, Rhonci, Wheezing Cardiovascular: Regular Rate, Rhythm, No Edema, No Murmur Gastrointestinal: Normal Bowel Sounds, Tenderness (Suprapubic) Rectal: Deferred Neurologic/Psychiatric: Alert, Oriented x3 Skin: Normal Color, Warm/Dry Results Results/Procedures Labs Laboratory Tests 09/07/19 11:39 Patient resulted labs reviewed. Assessment/Plan Assessment and Plan Assessment Acute problems Influenza B UTI Acute Respiratory Failure CHF Exacerbation Elevated BNP CXR findings of edema, HF or pneumonia Respiratory Acidosis Hyponatremia Asessment Chronic Problems COPD Asthma PAF - she is currently in Sinus Tach Hx of pancreatitis GERD s/p EGD/Colonoscopy 1 month ago Anxiety Depression Morbid Obesity HTN Poor social support Plan Oseltamivir, Vancomycin, Zosyn Home meds for depression and anxiety Cardiology Consult Respiratory Consult DVT Prophylaxis Diabetes diet smoking cessation Social work consult Clinical Quality Measures DVT/VTE Risk/Contraindication: Risk Factor Score Per Nursin RFS Level Per Nursing on Admit: 4+=Very High KENDRA IQBAL DO 09/07/194: History of Present Illness HPI/Chief Complaint CC: Dyspnea with cough HPI: This is a 54yoWF clinic patient of [facility] who is known to me from prior admit who has h/o severe COPD who presented to [place] ER with cough and wheezing and was found to have volume overload and hypoxia and dx with influenza so she was placed on Tamiflu, steroids, Lasix IV and abx for infiltrates on CXR. Past Sfiupbx-Chumar-Chsqfx Hx Past Med/Social Hx: Reviewed Nursing Past Med/Soc Hx, Reviewed and Corrections made Patient Social History Marrital Status: single Employed/Student: unemployed Alcohol Use: Denies Use Smoking Status: Current Everyday Smoker (3-4 Cig per day) Past Medical History Respiratory: Asthma, COPD, Emphysema, Pneumonia Cardiac: Cardiomyopathy, Chronic Edema/Swelling, High Cholesterol, Hypertension Family History Alcoholism G8 BROTHER Alzheimer's disease 19 MOTHER Arthritis 19 FATHER 19 MOTHER G8 BROTHER G8 BROTHER G8 BROTHER G8 BROTHER G8 BROTHER G8 SISTER G8 SISTER G8 SISTER G8 SISTER G8 SISTER G8 SISTER Asthma 19 FATHER 19 MOTHER G8 SISTER G8 SISTER Cancer of mouth Cardiovascular disease 19 FATHER 19 MOTHER G8 BROTHER G8 BROTHER G8 SISTER G8 SISTER Completed stroke 19 FATHER G8 SISTER G8 SISTER Dementia G8 BROTHER Diabetes mellitus 19 FATHER 19 MOTHER G8 BROTHER G8 BROTHER G8 BROTHER G8 BROTHER G8 BROTHER G8 SISTER G8 SISTER G8 SISTER G8 SISTER G8 SISTER G8 SISTER Glaucoma 19 MOTHER G8 SISTER G8 SISTER Hypercholesterolemia 19 FATHER 19 MOTHER Hypertension 19 FATHER 19 MOTHER G8 BROTHER G8 BROTHER G8 BROTHER G8 BROTHER G8 BROTHER G8 SISTER G8 SISTER G8 SISTER G8 SISTER G8 SISTER G8 SISTER Myocardial infarction 19 FATHER 19 MOTHER G8 BROTHER G8 BROTHER G8 SISTER G8 SISTER G8 SISTER Osteoporosis G8 SISTER Seizure disorder G8 BROTHER No Family History of: AIDS Abdominal aortic aneurysm Marvel's disease Aphasia Cataracts Colon cancer Congenital disease Congenital heart disease Coronary thrombosis Cystic fibrosis Deafness or hearing loss Drug abuse Dysphasia Fibrocystic disease of breast Gastroenteritis Headache disorder Infertility Kidney disease Neoplasm Parkinson's disease Prostate cancer Psychosocial problem Severe allergy Thyroid disease Tuberculosis Visual disorder Review of Systems Constitutional: see HPI Respiratory: cough, dyspnea on exertion, short of breath, wheezing Physical Exam Physical Exam General Appearance: Anxious, Chronically ill, Mild Distress Respiratory: Accessory Muscle Use, Crackles, Decreased Breath Sounds, Rhonci, Wheezing Cardiovascular: Regular Rate, Rhythm Assessment/Plan Admission Diagnosis Assessment: Influenza B PNA AECHF AECOPD HTN OAC Smoker DM Plan: Tamiflu Abx IV Lasix Monitor oxygen Admission Status: Inpatient Order (span 2 midnights) Reason for Inpatient Admission: AECOPD with flu and PNA and CHF Diagnosis/Problems Diagnosis/Problems (1) Influenza B Status: Acute (2) CHF (congestive heart failure) Status: Acute Qualifiers: Heart failure type: unspecified Heart failure chronicity: acute Qualified Codes: I50.9 - Heart failure, unspecified (3) UTI (urinary tract infection) Status: Acute Qualifiers: Urinary tract infection type: acute cystitis Hematuria presence: without hematuria Qualified Codes: N30.00 - Acute cystitis without hematuria (4) GERD (gastroesophageal reflux disease) (5) 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 I reviewed and verified all information documented by the medical student and made modifications to such information, when appropriate. I personally performed the physical exam and medical decision making. Kendra Iqbal, Sep 07, 2019,21:04 [facility] Sep 07, 2019 16:19 KENDRA IQBAL DO Sep 07, 2019 21:04
[2019-09-07] MEDS ORDERED: RT-ALBUTEROL/IPRATROPIUM 3 ML (DUONEB) VIAL INH PRN (17:30)
[2019-09-07] MEDS: FUROSEMIDE 40 MG/4 ML INJ (LASIX) IVP SCH (17:44)
[2019-09-07] MEDS: methylPREDNISolone 125 MG (Solu-MEDROL) VIAL IVP SCH ×2 (17:45→23:07)
[2019-09-07] MEDS: RT-ALBUTEROL/IPRATROPIUM 3 ML (DUONEB) VIAL INH SCH ×2 (18:05→21:01)
[2019-09-07] MEDS: SENNA W/DOCUSATE (SENOKOT S) TABLET PO SCH (19:42)
[2019-09-07] MEDS: inSUlin ASPART (NovoLOG) 1 UNIT/0.01 ML (CHARGE PER UNIT) SC SCH (19:42)
[2019-09-07] MEDS: PIPERACILLIN/TAZOBACTAM (BULK) 4.5 GM in NS (IVPB) 100 ML IV SCH (19:43)
[2019-09-07] MEDS ORDERED: guaiFENesin/CODEINE (ROBITUSSIN AC) 10ML UDC PO PRN (21:00)
[2019-09-07] MEDS ORDERED: SUMAtriptan 50 MG (IMITREX) TAB PO PRN (21:00)
[2019-09-07] MEDS ORDERED: INSULIN DETEMIR 80 UNIT SQ SCH (21:00)
[2019-09-07] MEDS: PREGABALIN 150 MG (LYRICA) CAPSULE PO SCH (21:14)
[2019-09-07] MEDS: APIXABAN 5 MG (ELIQUIS) TABLET PO SCH (21:15)
[2019-09-07] MEDS: AMITRIPTYLINE 50 MG (ELAVIL) TAB PO SCH (21:15)
[2019-09-07] MEDS: CYCLOBENZAPRINE 10 MG (FLEXERIL) TAB PO SCH (21:15)
[2019-09-07] MEDS: CATHETER FLUSH 10 ML SYR IV SCH (21:16)
[2019-09-07] MEDS: HYDROcodone/APAP 5 MG/325 MG (LORTAB) TAB PO PRN (21:32)
[2019-09-08] VITALS (24 sets, daily range): BP systolic 104–158; BP diastolic 58–92
[2019-09-08] MEDS: RT-ALBUTEROL/IPRATROPIUM 3 ML (DUONEB) VIAL INH SCH ×6 (01:46→21:48)
[2019-09-08] MEDS: PIPERACILLIN/TAZOBACTAM (BULK) 4.5 GM in NS (IVPB) 100 ML IV SCH ×3 (03:41→20:25)
[2019-09-08 03:56] LABS: BASOPHILS % (AUTO) 0 % (0-10); EOSINOPHILS % (AUTO) 0 % (0-10); HEMATOCRIT 37 % (35-52); HEMOGLOBIN 12.1 G/DL (11.5-16.0); LYMPHOCYTES # (AUTO) 1.1 X 10^3 (1.0-4.0); LYMPHOCYTES % (AUTO) 9 % (12-44); MEAN CORPUSCULAR HEMOGLOBIN 29 PG (25-34); MEAN CORPUSCULAR HGB CONC 33 G/DL (32-36); MEAN CORPUSCULAR VOLUME 87 FL (80-99); MONOCYTES # (AUTO) 0.6 X 10^3 (0.0-1.0); MONOCYTES % (AUTO) 5 % (0-12); NEUTROPHILS # (AUTO) 10.2 X 10^3 (1.8-7.8); NEUTROPHILS % (AUTO) 86 % (42-75); PLATELET COUNT 201 10^3/uL (130-400); RED CELL DISTRIBUTION WIDTH 15.7 % (10.0-14.5); WHITE BLOOD COUNT 11.8 10^3/uL (4.3-11.0)
[2019-09-08 04:20] LABS: ALBUMIN 3.4 GM/DL (3.2-4.5); BILIRUBIN,TOTAL 0.2 MG/DL (0.1-1.0); CALCIUM 8.9 MG/DL (8.5-10.1); CREATININE SERUM 1.23 MG/DL (0.60-1.30); POTASSIUM 4.3 MMOL/L (3.6-5.0); TOTAL PROTEIN 7.3 GM/DL (6.4-8.2)
--- NOTE | 2019-09-08 04:38 | Pulmonary Consultation ---
History of Present Illness History of Present Illness Date Seen by Provider: Sep 07, 2019 Time Seen by Provider: 16:30 Date of Admission History of Present Illness 54yo with hx of morbid obesity, DM, Afib treated with Eliquis presented to ED secondary to worsening SOB and body aches. Pt has found to have progressive hypoxia, and wheezing. Pt continues to complain of cough and SOB. I am Consulted for pulmonary management. Allergies and Home Medications Allergies Coded Allergies: sulfamethoxazole (Verified Allergy, Severe, JOINTS HURT, 12/21/18) trimethoprim (Verified Allergy, Severe, JOINTS HURT, 12/21/18) influenza virus vaccine, specific (Unverified Allergy, Intermediate, rash, 09/23/18) aspirin (Unverified Allergy, Unknown, convulsions, 09/23/18) metformin (Verified Adverse Reaction, Intermediate, joint pain, 09/23/18) hydromorphone HCl (Unverified Adverse Reaction, Mild, VOMITING, 01/06/11) Home Medications Albuterol Sulfate 1 Puff Puff, 2 PUFF IH QID PRN for SHORTNESS OF BREATH, (Reported) Amitriptyline HCl 50 Mg Tablet, 50 MG PO HS, (Reported) Apixaban 5 Mg Tablet, 5 MG PO BID, (Reported) Cyclobenzaprine HCl 10 Mg Tablet, 10 MG PO TID, (Reported) Dapagliflozin Propanediol 10 Mg Tablet, 10 MG PO DAILY, (Reported) Dulaglutide 0.75 Mg/0.5 Ml Pen.injctr, 0.75 MG SC Tu, (Reported) Duloxetine HCl 60 Mg Capsule.dr, 60 MG PO DAILY, (Reported) Fluticasone Propionate 16 Gm [place].susp, 2 SPRAYS NS DAILY PRN for CONGESTION, (Reported) Fluticasone/Salmeterol 12 Gm Hfa.aer.ad, 0 PUFF IH BID@20 Prescribed by: DARRELL URBINA on 09/11/19 1116 Furosemide 40 Mg Tablet, 40 MG PO BID, (Reported) Glucagon,Human Recombinant 1 Mg/Kit Soln, SC UD PRN for HYPOGLYCEMIA, (Reported) Hydroxyzine HCl 50 Mg Tablet, 50 MG PO BID PRN for ANXIETY, (Reported) Insulin Aspart 300 Units/3 Ml Solution, 50 UNITS SQ TIDAC, (Reported) Insulin Detemir 100 Unit/1 Ml Insuln.pen, 80 UNIT SQ BID, (Reported) LAST FILLED #48 06-22-19 Losartan Potassium 25 Mg Tablet, 25 MG PO DAILY, (Reported) Melatonin 10 Mg Tablet, 10 MG PO HS PRN for SLEEP, (Reported) Meloxicam 15 Mg Tablet, 15 MG PO DAILY, (Reported) Nitrofurantoin Macrocrystal 100 Mg Capsule, 100 MG PO BID Prescribed by: DARRELL URBINA on 09/11/19 1116 [place] 3 Polyunsat Fatty Acids 1,000 Mg Cap, 1,000 MG PO HS, (Reported) Omeprazole 40 Mg Capsule.dr, 40 MG PO DAILY, (Reported) Potassium Chloride 20 Meq Tab.er.prt, 20 MEQ PO DAILY, (Reported) Pregabalin 150 Mg Capsule, 150 MG PO TID, (Reported) Rosuvastatin Calcium 40 Mg Tablet, 40 MG PO DAILY, (Reported) Sennosides/Docusate Sodium 1 Each Tablet, 1 EACH PO BID Prescribed by: DARRELL URBINA on 09/11/19 1116 Sitagliptin Phosphate 100 Mg Tablet, 100 MG PO DAILY, (Reported) Solifenacin Succinate 5 Mg Tablet, 5 MG PO DAILY, (Reported) Sumatriptan Succinate 50 Mg Tablet, 50 MG PO UD PRN for MIGRAINE, (Reported) TAKE 1 TAB AT ONSET OF MIGRAINE, IF SYMPTOMS PERSIST AFTER 2 HOURS TAKE AN ADDITIONAL TABLET Tiotropium [place] 4 Gm Mist.inhal, 2 PUFF INH DAILY, (Reported) Past Rrkdjhs-Sgoltz-Funqyx Hx Past Med/Social Hx: Reviewed Nursing Past Med/Soc Hx, Reviewed and Corrections made Patient Social History Alcohol Use: Denies Use Recreational Drug Use: No Smoking Status: Current Everyday Smoker (3-4 Cig per day) Type Used: Cigarettes 2nd Hand Smoke Exposure: No Recent Foreign Travel: No Contact w/Someone Who Travel: No Recent Infectious Disease Expo: No Recent Hopitalizations: No Physical Abuse: No Sexual Abuse: No Mistreated: No Fear: No Immunizations Up To Date Tetanus Booster (TDap): Unknown PED Vaccines UTD: No Date of Pneumonia Vaccine: May 12, 2012 Seasonal Allergies Seasonal Allergies: No Past Medical History Surgeries: Yes Appendectomy, Gallbladder, Hysterectomy Respiratory: Yes COPD Currently Using CPAP: No Currently Using BIPAP: No Cardiac: Yes Cardiomyopathy, Chronic Edema/Swelling, High Cholesterol, Hypertension Neurological: Yes Neuropathy Reproductive Disorders: No (partial hysterectomy of R side. ) Female Reproductive Disorders: Denies Sexually Transmitted Disease: No HIV/AIDS: No Genitourinary: Yes Kidney Infection, UTI-Chronic Gastrointestinal: Yes Gastroesophageal Reflux, Pancreatitis, Chronic Diarrhea Musculoskeletal: Yes Arthritis Endocrine: Yes Diabetes, Insulin dep HEENT: Yes Tinnitis Loss of Vision: Bilateral Hearing Impairment: Denies Cancer: No Psychosocial: Yes Anxiety, Depression Integumentary: No Blood Disorders: No Adverse Reaction/Blood Tranf: No Family Medical History Alcoholism G8 BROTHER Alzheimer's disease 19 MOTHER Arthritis 19 FATHER 19 MOTHER G8 BROTHER G8 BROTHER G8 BROTHER G8 BROTHER G8 BROTHER G8 SISTER G8 SISTER G8 SISTER G8 SISTER G8 SISTER G8 SISTER Asthma 19 FATHER 19 MOTHER G8 SISTER G8 SISTER Cancer of mouth Cardiovascular disease 19 FATHER 19 MOTHER G8 BROTHER G8 BROTHER G8 SISTER G8 SISTER Completed stroke 19 FATHER G8 SISTER G8 SISTER Dementia G8 BROTHER Diabetes mellitus 19 FATHER 19 MOTHER G8 BROTHER G8 BROTHER G8 BROTHER G8 BROTHER G8 BROTHER G8 SISTER G8 SISTER G8 SISTER G8 SISTER G8 SISTER G8 SISTER Glaucoma 19 MOTHER G8 SISTER G8 SISTER Hypercholesterolemia 19 FATHER 19 MOTHER Hypertension 19 FATHER 19 MOTHER G8 BROTHER G8 BROTHER G8 BROTHER G8 BROTHER G8 BROTHER G8 SISTER G8 SISTER G8 SISTER G8 SISTER G8 SISTER G8 SISTER Myocardial infarction 19 FATHER 19 MOTHER G8 BROTHER G8 BROTHER G8 SISTER G8 SISTER G8 SISTER Osteoporosis G8 SISTER Seizure disorder G8 BROTHER No Family History of: AIDS Abdominal aortic aneurysm Marvel's disease Aphasia Cataracts Colon cancer Congenital disease Congenital heart disease Coronary thrombosis Cystic fibrosis Deafness or hearing loss Drug abuse Dysphasia Fibrocystic disease of breast Gastroenteritis Headache disorder Infertility Kidney disease Neoplasm Parkinson's disease Prostate cancer Psychosocial problem Severe allergy Thyroid disease Tuberculosis Visual disorder Cancer (Father had skin cancer) Review of Systems Time Seen by Provider: 16:00 Constitutional: Fever, Chills, Sweats, Weakness, Malaise, Other Eyes: No: Pain, Vision change, Conjunctivae inflammation, Eyelid inflammation, Other, Redness ENT: Nose congestion; No: Ear pain, Ear discharge, Nose pain, Nose discharge, Mouth pain, Mouth swelling, Throat pain, Throat swelling, Other Respiratory: Cough, Shortness of breath, SOB with excertion, Wheezing; No: Hemoptysis Cardiovascular: Palpitations, Paroxysmal Noc. Dyspnea Sepsis Event Evaluation Height, Weight, BMI Height: 5'9.00" Weight: 253lbs. 1.0oz. 114.952484yy; 39.00 BMI Method:Stated Exam Exam Vital Signs Date Time Temp Pulse Resp B/P (MAP) Pulse Ox O2 Delivery O2 Flow Rate FiO2 09/08/19 04:00 Nasal Cannula 3.00 09/08/19 03:00 83 22 124/64 (84) 94 Nasal Cannula 2.00 09/08/19 02:00 84 11 121/73 (89) 96 Nasal Cannula 2.00 09/08/19 01:47 94 Nasal Cannula 3.00 09/08/19 01:00 81 09/08/19 01:00 81 16 119/64 (82) 93 Nasal Cannula 2.00 09/08/19 00:00 83 21 117/71 (86) 93 Nasal Cannula 2.00 09/08/19 00:00 Nasal Cannula 3.00 09/07/19 23:00 85 14 117/66 (83) 94 Nasal Cannula 2.00 09/07/19 22:00 92 14 130/72 (91) 94 Nasal Cannula 2.00 09/07/19 21:01 95 Nasal Cannula 3.00 09/07/19 21:00 93 33 118/75 (89) 94 Nasal Cannula 2.00 09/07/19 20:00 Nasal Cannula 3.00 09/07/19 20:00 95 26 141/76 (97) 94 Nasal Cannula 2.00 09/07/19 19:30 36.6 09/07/19 19:30 36.6 09/07/19 19:00 100 09/07/19 19:00 100 27 148/74 (98) 95 Nasal Cannula 2.00 09/07/19 18:05 96 Nasal Cannula 3.00 09/07/19 17:23 36.5 88 95 36 09/07/19 17:03 92 Nasal Cannula 3.00 09/07/19 17:00 89 22 145/80 (101) 92 Nasal Cannula 2.00 09/07/19 16:00 36.7 89 22 122/71 (88) 92 Nasal Cannula 2.00 09/07/19 16:00 92 Nasal Cannula 3.00 09/07/19 15:30 89 7 122/71 (88) 94 Nasal Cannula 2.00 09/07/19 15:18 93 09/07/19 14:30 36.5 93 20 115/67 (86) 92 3.00 09/07/19 11:30 36.5 88 20 120/69 (86) 95 Nasal Cannula 4.00 I & O 09/08/19 07:00 Intake Total 1375 ml Output Total 4500 ml Balance -3125 ml Height & Weight Height: 5'9.00" Weight: 253lbs. 1.0oz. 114.694523dy; 39.00 BMI Method:Stated General Appearance: Anxious, Chronically ill, Mild Distress HEENT: PERRL/EOMI, TMs Normal, Normal ENT Inspection, Pharynx Normal Neck: Tender Lateral Respiratory: Accessory Muscle Use, Crackles, Decreased Breath Sounds, Rhonci, Wheezing Cardiovascular: Regular Rate, Rhythm Capillary Refill: Less Than 3 Seconds Extremity: Normal Capillary Refill, Normal Inspection, Non Tender, No Calf Tenderness Neurologic/Psychiatric: Alert, Oriented x3 Skin: Normal Color, Warm/Dry Results Lab Laboratory Tests 09/07/19 11:39 09/08/19 03:00 Assessment/Plan Assessment/Plan Acute respiratory failure -BiPAP PRN -Monitor Morbid obesity Influenza B -Tamiflu CHFAE -Lasix Hyponatremia -Monitor STEFANIE STARKS DO Sep 08, 2019 04:38
--- NOTE | 2019-09-08 04:42 | Pulmonary Progress Note ---
Subjective Date Seen by a Provider: Sep 08, 2019 Time Seen by a Provider: 06:29 Subjective/Events-last exam Pt complains of persistent SOB and cough. Sepsis Event Evaluation Height, Weight, BMI Height: 5'9.00" Weight: 253lbs. 1.0oz. 114.579316qa; 39.00 BMI Method:Stated Focused Exam Lactate Level 09/07/19 11:39: Lactic Acid Level 1.41 Exam Exam Vital Signs Date Time Temp Pulse Resp B/P (MAP) Pulse Ox O2 Delivery O2 Flow Rate FiO2 09/08/19 04:00 Nasal Cannula 3.00 09/08/19 03:00 83 22 124/64 (84) 94 Nasal Cannula 2.00 09/08/19 02:00 84 11 121/73 (89) 96 Nasal Cannula 2.00 09/08/19 01:47 94 Nasal Cannula 3.00 09/08/19 01:00 81 09/08/19 01:00 81 16 119/64 (82) 93 Nasal Cannula 2.00 09/08/19 00:00 83 21 117/71 (86) 93 Nasal Cannula 2.00 09/08/19 00:00 Nasal Cannula 3.00 09/07/19 23:00 85 14 117/66 (83) 94 Nasal Cannula 2.00 09/07/19 22:00 92 14 130/72 (91) 94 Nasal Cannula 2.00 09/07/19 21:01 95 Nasal Cannula 3.00 09/07/19 21:00 93 33 118/75 (89) 94 Nasal Cannula 2.00 09/07/19 20:00 Nasal Cannula 3.00 09/07/19 20:00 95 26 141/76 (97) 94 Nasal Cannula 2.00 09/07/19 19:30 36.6 09/07/19 19:30 36.6 09/07/19 19:00 100 09/07/19 19:00 100 27 148/74 (98) 95 Nasal Cannula 2.00 09/07/19 18:05 96 Nasal Cannula 3.00 09/07/19 17:23 36.5 88 95 36 09/07/19 17:03 92 Nasal Cannula 3.00 09/07/19 17:00 89 22 145/80 (101) 92 Nasal Cannula 2.00 09/07/19 16:00 36.7 89 22 122/71 (88) 92 Nasal Cannula 2.00 09/07/19 16:00 92 Nasal Cannula 3.00 09/07/19 15:30 89 7 122/71 (88) 94 Nasal Cannula 2.00 09/07/19 15:18 93 09/07/19 14:30 36.5 93 20 115/67 (86) 92 3.00 09/07/19 11:30 36.5 88 20 120/69 (86) 95 Nasal Cannula 4.00 I & O 09/08/19 07:00 Intake Total 1375 ml Output Total 4500 ml Balance -3125 ml Height & Weight Height: 5'9.00" Weight: 253lbs. 1.0oz. 114.494638nu; 39.00 BMI Method:Stated General Appearance: Anxious, Chronically ill, Mild Distress HEENT: PERRL/EOMI, TMs Normal, Normal ENT Inspection, Pharynx Normal Neck: Tender Lateral Respiratory: Accessory Muscle Use, Crackles, Decreased Breath Sounds, Rhonci, Wheezing Cardiovascular: Regular Rate, Rhythm Capillary Refill: Less Than 3 Seconds Extremity: Normal Capillary Refill, Normal Inspection, Non Tender, No Calf Tenderness Neurologic/Psychiatric: Alert, Oriented x3 Skin: Normal Color, Warm/Dry Results Lab Laboratory Tests 09/07/19 11:39 09/08/19 03:00 Assessment/Plan Assessment/Plan Acute on chronic respiratory failure Morbid obesity Influenza B -Tamiflu -Pt did not have her influenza vaccination this year COPDAE -Pt does have oxygen at home -Continue Solumedrol -Duonebs Q4 -Add mucinex Atelectasis -Add IS -Increase activity Current smoker -Education CHFAE -Lasix Hyponatremia -Monitor STEFANIE STARKS DO Sep 08, 2019 04:42
[2019-09-08 05:29] LABS: PHOSPHORUS 4.3 MG/DL (2.3-4.7)
[2019-09-08] MEDS ORDERED: INSULIN ASPART 50 UNIT SQ SCH (06:00)
[2019-09-08] MEDS: methylPREDNISolone 125 MG (Solu-MEDROL) VIAL IVP SCH ×4 (06:19→23:56)
[2019-09-08] MEDS: TROSPIUM 20 MG (SANCTURA) TAB PO SCH ×2 (06:19→15:52)
[2019-09-08] MEDS: inSUlin ASPART (NovoLOG) 1 UNIT/0.01 ML (CHARGE PER UNIT) SC SCH ×6 (06:19→20:26)
[2019-09-08] MEDS: CATHETER FLUSH 10 ML SYR IV SCH ×3 (06:20→23:57)
[2019-09-08] MEDS: FUROSEMIDE 40 MG/4 ML INJ (LASIX) IVP SCH ×2 (06:22→15:51)
[2019-09-08] MEDS ORDERED: RT-BUDESONIDE NEBS 0.5 MG/2ML (PULMICORT) AMP ONE (06:51)
[2019-09-08] MEDS: RT-BUDESONIDE NEBS 0.5 MG/2ML (PULMICORT) AMP INH SCH ×2 (07:00→18:56)
--- NOTE | 2019-09-08 07:19 | Diagnostic Imaging Report ---
INDICATION: Shortness of breath COMPARISON: 09/07/2019 TECHNIQUE: Single radiograph chest dated 09/08/2019 FINDINGS: Cardiac silhouette is stable. Central pulmonary vascular congestion appears slightly improved. Bilateral mixed interstitial and airspace opacities are again identified, though improved since the prior examination. No new focal pulmonary opacity. No pleural effusion. No pneumothorax. Osseous structures are stable. IMPRESSION: Improved though persisting bilateral mixed interstitial and airspace opacities. Improved though persisting minimal central pulmonary vascular congestion. Dictated by: Dictated on workstation # [id number]
[2019-09-08] MEDS ORDERED: RT-ADVAIR HFA 115/21 MCG PER PUFF IH SCH (08:00)
[2019-09-08] MEDS ORDERED: SOLIFENACIN 5 MG TAB (VESICARE) NON-FORMULARY PO SCH (09:00)
[2019-09-08] MEDS ORDERED: NON-FORMULARY MEDICATION 1 EA EA (Dapagliflozin Propanediol (Farxiga) 10 MG) PO SCH (09:00)
[2019-09-08] MEDS: PANTOPRAZOLE 40 MG (PROTONIX) TAB PO SCH (09:22)
[2019-09-08] MEDS: PREGABALIN 150 MG (LYRICA) CAPSULE PO SCH ×3 (09:22→20:26)
[2019-09-08] MEDS: DULoxetine 30 MG (CYMBALTA) CAP PO SCH (09:24)
[2019-09-08] MEDS: APIXABAN 5 MG (ELIQUIS) TABLET PO SCH ×2 (09:24→20:26)
[2019-09-08] MEDS: CYCLOBENZAPRINE 10 MG (FLEXERIL) TAB PO SCH ×3 (09:24→20:26)
[2019-09-08] MEDS: guaiFENesin (MUCINEX) 600 MG TAB PO SCH ×2 (09:24→20:26)
[2019-09-08] MEDS: OSELTAMIVIR 75 MG (TAMIFLU) CAPSULE PO SCH ×2 (09:35→20:26)
[2019-09-08] MEDS: LOSARTAN 25 MG (COZAAR) TAB PO SCH (09:35)
[2019-09-08] MEDS: KCL 20 MEQ TAB (K-DUR) PO SCH (09:35)
[2019-09-08] MEDS: SENNA W/DOCUSATE (SENOKOT S) TABLET PO SCH ×2 (09:37→20:27)
--- NOTE | 2019-09-08 09:37 | Physical Therapy Evaluation ---
PT Evaluation-General Medical Diagnosis Admission Date Sep 07, 2019 at 13:50 Medical Diagnosis: CHF Excerbation / UTI Onset Date: Sep 07, 2019 Therapy Diagnosis Therapy Diagnosis: Debility/Deconditioning Height/Weight Height (Feet): 5 Height (Inches): 9.00 Weight (Pounds): 253 Weight (Ounces): 1.0 Precautions Precautions/Isolations: Droplet Isolation, Fall Prevention, Standard Prec autions Referral Physician: Rasheed Reason for Referral: Evaluation/Treatment Medical History Pertinent Medical History: Arthritis, COPD, DM, GERD, HTN, Neuropathy, Smoking Additional Medical History Pancreatitis, Depression. Current History EMS secondary to SOA Reviewed History: Yes Social History Home: Single Level Current Living Status: Alone Prior Prior Level of Function SCALE: Activities may be completed with or without assistive devices. 5-Qndahznurp-fhmdgeg completes the activity by him/herself with no assistance from a helper. 5-Set-up or Clean-up Assistance-helper sets up or cleans up; patient completes activity. [place] assists only prior to or following the activity. 4-Supervision or Touching Assistance-helper provides verbal cues and/or touch ing/steadying and/or contact guard assistance as patient completes activity. Assistance may be provided throughout the activity or intermittently. 3-Partial/Moderate Assistance-helper does LESS THAN HALF the effort. [place] lifts, holds or supports trunk or limbs, but provides less than half the effort. 2-Substantial/Maximal Assistance-helper does MORE THAN HALF the effort. [place] lifts or holds trunk or limbs and provides more than half the effort. 8-Xrvhhijhd-eqisii does ALL the effort. Patient does none of the effort to complete the activity. Or, the assistance of 2 or more helpers is required for the patient to complete the activity. If activity was not attempted, code reason: 7-Patient Refused. 9-Not Applicable-not attempted and the patient did not perform the activity before the current illness, exacerbation or injury. 10-Not Attempted due to Environmental Limitations-(lack of equipment, weather restraints, etc.). 88-Not Attempted due to Medical Conditions or Safety Concerns. Bed Mobility: 6 Transfers (B,C,W/C): 6 Gait: 6 Indoor Mobility (Ambulation): Independent Prior Devices Use: Walker (4WW) PT Evaluation-Current Subjective Patient agreeable to therapy. Patient states that she believes she has had a bowel movement while in bed and needs to be cleaned up and sit on the commode. Patient reports having a dull achy pain all over her body. Pain Numeric Pain Scale: 10-Worst Possible Pain Location Body Site: Generalized Pain Description: Ache, Dull Objective Patient Orientation: Person, Place, Time, Situation Attachments: Oxygen, Polar Pack, IV ROM/Strength ROM Lower Extremities WFL BLE Strength Lower Extremities WFL BLE Integumentary/Posture Integumentary See nursing notes. Bowel Incontinence: Yes Bladder Incontinence: Bertrand Cath Neuromuscular (Tone, Coordination, Reflexes) Grossly intact. Sensory Vision: Functional Hearing: Functional Sensation Right Lower Extremit: Intact Sensation Left Lower Extremity: Intact Transfers Roll Left to Right (QC): 6 Lying to Sitting/Side of Bed(Q: 6 Sit to Stand (QC): 6 Toilet Transfer: 3 Patient stated she was dizzy during toilet transfer and started to panic, needed assist to get sat on the toilet. Patient DEP for toileting hygiene. Gait Does the Patient Walk?: No and Walking Goal IS indicated Wheelchair Training Does the Pt Use a Wheelchair?: No Balance Sitting Static: Good Sitting Dynamic: Good Standing Static: Fair Standing Dynamic: Fair Assessment/Needs Patient is limiting what she is willing to do based on her pain level. Patient stated being dizzy during transfer and panicked. Due to panic patient needed assistance to complete toilet transfer. Patient appeared to be able to complete the transfer until she panicked. Nursing notified of patient remaining on commode for BM. Patient appears to be self limiting. Rehab Potential: Fair PT Jail Goals Jail Goals PT Jail Goals Time Frame: Sep 15, 2019 Roll Left & Right (QC): 6 Sit to Lying (QC): 6 Lying-Sitting on Side/Bed(QC): 6 Sit to Stand (QC): 6 Chair/Fat-tr-Tbxjy Xfer(QC): 6 Toilet Transfer (QC): 6 Walk 10 feet (QC): 6 Walk 50ft with 2 Turns (QC): 6 Walk 150 ft (QC): 6 PT Plan Problem List Problem List: Activity Tolerance, Functional Strength, Safety, Balance, Gait, Transfer Treatment/Plan Treatment Plan: Continue Plan of Care Treatment Plan: Education, Functional Activity Cait, Functional Strength, Gait, Safety, Therapeutic Exercise, Transfers Treatment Duration: Sep 15, 2019 Frequency: 6 times per week Estimated Hrs Per Day: .25 hour per day Patient and/or Family Agrees t: Yes Safety Risks/Education Patient Education: Transfer Techniques Teaching Recipient: Patient Teaching Methods: Discussion Response to Teaching: Reinforcement Needed Time/GCodes Time In: 817 Time Out: 834 Total Billed Treatment Time: 17 Total Billed Treatment 1 visit EVL (17 minutes) ROMAN KELLEY PT Sep 08, 2019 09:37
[2019-09-08] MEDS: ADVAIR HFA 115/21 MCG INHALER 8 GM IH SCH ×2 (10:26→18:57)
[2019-09-08 10:44] LABS: ABG BASE EXCESS 4.8 MMOL/L (-2.5-2.5); ABG OXYGEN SATURATION 94 % (94-100); ABG PCO2 42 MMHG (35-45); ABG PH 7.45 (7.37-7.43); ABG PO2 70 MMHG (79-93); ABG TCO2 30.2 MMOL/L (21.0-31.0)
[2019-09-08 10:45] LABS: ALLENS TEST YES-POS; INSPIRED O2 3; PATIENT TEMP 36.3; VENTILATOR NO
[2019-09-08] MEDS ORDERED: hydrOXYzine (VISTARIL/ATARAX) 25 MG capsule/tablet PO PRN (10:45)
--- NOTE | 2019-09-08 10:52 | Progress Note - Hospitalist ---
[facility] 09/08/19 1052: Subjective HPI/CC On Admission Date Seen by Provider: Sep 08, 2019 Time Seen by Provider: 08:05 CC: Dyspnea with cough HPI: This is a 54yoWF clinic patient of [facility] who is known to me from prior admit who has h/o severe COPD who presented to [facility] ER with cough and wheezing and was found to have volume overload and hypoxia and dx with influenza so she was placed on Tamiflu, steroids, Lasix IV and abx for infiltrates on CXR. Subjective/Events-last exam Patients headache, respiration, and chest pain when coughing has improved. Patient is having some suprapubic abdominal pain. She reports she had a bowel movement yesterday. No family is at bedside. Cardiology and respiratory are following Focused Exam Lactate Level 09/07/19 11:39: Lactic Acid Level 1.41 Objective Exam Vital Signs Vital Signs Date Time Temp Pulse Resp B/P (MAP) Pulse Ox O2 Delivery O2 Flow Rate FiO2 09/08/19 10:00 103 23 157/77 (103) 96 Nasal Cannula 2.00 09/07/19 19:30 36.6 09/07/19 17:23 36 Capillary Refill : Less Than 3 Seconds General Appearance: No Apparent Distress, WD/WN Respiratory: No Accessory Muscle Use, Crackles, Rhonci Cardiovascular: Regular Rate, Rhythm, No Edema, No Murmur Gastrointestinal: Normal Bowel Sounds, Soft, Tenderness (suprapubic region) Rectal: Deferred Neurologic/Psychiatric: Alert Skin: Normal Color, Warm/Dry Results/Procedures Lab Laboratory Tests 09/07/19 11:39 09/08/19 03:00 Patient resulted labs reviewed. Assessment/Plan Assessment and Plan Assess & Plan/Chief Complaint Assessment Acute problems Influenza B UTI Acute Respiratory Failure CHF Exacerbation Elevated BNP CXR findings of edema, HF or pneumonia Respiratory Acidosis Hyponatremia Asessment Chronic Problems COPD Asthma PAF - she is currently in Sinus Tach Hx of pancreatitis GERD s/p EGD/Colonoscopy 1 month ago Anxiety Depression Morbid Obesity HTN Poor social support Plan Oseltamivir, Vancomycin, Zosyn MRSA screen Home meds for depression and anxiety Cardiology Consult Respiratory Consult DVT Prophylaxis Diabetes diet smoking cessation Social work consult Clinical Quality Measures DVT/VTE Risk/Contraindication: Risk Factor Score Per Nursin RFS Level Per Nursing on Admit: 4+=Very High KENDRA URBINA DO 09/08/191952: Subjective Subjective/Events-last exam Improved cough Bowels moved Abdominal pain due to the UTI Not transferring to the floor today because of her fragile lung status due to her CHF and COPD and influenza Review of Systems General: Fatigue Pulmonary: Dyspnea, Cough Objective Exam General Appearance: No Apparent Distress, WD/WN, Anxious, Chronically ill Respiratory: No Accessory Muscle Use, No Respiratory Distress, Crackles, Rales, Rhonci Assessment/Plan Assessment and Plan Assess & Plan/Chief Complaint 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 Diagnosis/Problems Diagnosis/Problems (1) Influenza B Status: Acute (2) CHF (congestive heart failure) Status: Acute Qualifiers: Qualified Codes: I50.9 - Heart failure, unspecified (3) 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 I reviewed and verified all information documented by the medical student and made modifications to such information, when appropriate. I personally performed the physical exam and medical decision making. Kendra Urbina, Sep 08, 2019,19:53 [facility] Sep 08, 2019 10:52 KENDRA URBINA DO Sep 08, 2019 19:53
[2019-09-08] MEDS: MELOXICAM 7.5 MG (MOBIC) TABLET PO SCH (10:55)
[2019-09-08] MEDS: LINAGLIPTIN (TRADJENTA) 5 MG TABLET PO SCH (10:55)
[2019-09-08] MEDS: FLUTICASONE NASAL SPRAY (FLONASE) 16 GM BTL NS PRN (17:51)
[2019-09-08] MEDS: AMITRIPTYLINE 50 MG (ELAVIL) TAB PO SCH (20:26)
[2019-09-08] MEDS: HYDROcodone/APAP 5 MG/325 MG (LORTAB) TAB PO PRN (20:27)
--- NOTE | 2019-09-08 20:59 | Cardiology Progress Note ---
Cardiology SOAP Progress Note Subjective: Improved shortness of breath Objective: I&O/Vital Signs 09/08/19 09/08/19 09/08/19 09/08/19 09:00 10:00 10:25 10:34 Pulse 96 103 Resp 14 23 B/P (MAP) 126/68 (87) 157/77 (103) Pulse Ox 94 96 93 O2 Delivery Nasal Cannula Nasal Cannula Nasal Cannula O2 Flow Rate 2.00 2.00 4.00 3.00 09/08/19 09/08/19 09/08/19 09/08/19 10:45 11:00 11:50 12:00 Temp 36.5 Pulse 94 98 Resp 19 17 B/P (MAP) 130/79 (96) 138/71 (93) Pulse Ox 94 95 O2 Delivery Nasal Cannula Nasal Cannula Nasal Cannula O2 Flow Rate 3.00 3.00 3.00 09/08/19 09/08/19 09/08/19 09/08/19 12:00 13:00 13:00 14:00 Pulse 93 96 98 Resp 11 18 B/P (MAP) 104/85 (91) 144/78 (100) Pulse Ox 93 95 O2 Delivery Nasal Cannula Nasal Cannula Nasal Cannula O2 Flow Rate 3.00 3.00 3.00 09/08/19 09/08/19 09/08/19 09/08/19 14:49 15:00 15:43 16:00 Temp 36.8 Pulse 101 Resp 16 B/P (MAP) 125/67 (86) Pulse Ox 93 92 O2 Delivery Nasal Cannula Nasal Cannula Nasal Cannula O2 Flow Rate 3.00 3.00 3.00 09/08/19 09/08/19 09/08/19 09/08/19 16:00 17:00 18:00 18:52 Pulse 95 98 90 Resp 21 40 15 B/P (MAP) 127/67 (87) 121/64 (83) 115/58 (77) Pulse Ox 94 93 91 98 O2 Delivery Nasal Cannula Nasal Cannula Nasal Cannula Nasal Cannula O2 Flow Rate 3.00 3.00 3.00 3.00 09/08/19 19:03 Pulse Ox 98 O2 Delivery Nasal Cannula O2 Flow Rate 3.00 09/08/19 00:00 Intake Total 1375 ml Output Total 4500 ml Balance -3125 ml Weight (Pounds): 253 Weight (Ounces): 1.0 Weight (Calculated Kilograms): 114.683281 Constitutional: appears stated age, AAO x 3, well-developed, well-nourished Respiratory: chest is bilaterally symmetric, other (course breath sounds bilaterally.) Cardiovascular: regular rate-rhythm, tachycardia, S1 and S2 Gastrointestional: soft, distended, audible bowel sounds; No spleenomegaly Extremities: normal range of motion, non-tender, normal inspection, pedal edema; No clubbing, No cyanosis, No significant edema Neurologic/Psychiatric: no motor/sensory deficits, alert, normal mood/affect, oriented x 3, power is 5/5 both on sides Skin: normal color, warm/dry; No rash, No ulcerations Results/Procedures: Labs Laboratory Tests 09/08/19 03:00: White Blood Count 11.8H, Red Blood Count 4.25L, Hemoglobin 12.1, Hematocrit 37, Mean Corpuscular Volume 87, Mean Corpuscular Hemoglobin 29, Mean Corpuscular Hemoglobin Concent 33, Red Cell Distribution Width 15.7H, Platelet Count 201, Mean Platelet Volume 13.0H, Neutrophils (%) (Auto) 86H, Lymphocytes (%) (Auto) 9L, Monocytes (%) (Auto) 5, Eosinophils (%) (Auto) 0, Basophils (%) (Auto) 0, Neutrophils # (Auto) 10.2H, Lymphocytes # (Auto) 1.1, Monocytes # (Auto) 0.6, Eosinophils # (Auto) 0.0, Basophils # (Auto) 0.0, Sodium Level 134L, Potassium Level 4.3, Chloride Level 96L, Carbon Dioxide Level 21, Anion Gap 17H, Blood Urea Nitrogen 32H, Creatinine 1.23, Estimat Glomerular Filtration Rate 45, BUN/Creatinine Ratio 26, Glucose Level 388H, Calcium Level 8.9, Corrected Calcium 9.4, Phosphorus Level 4.3, Magnesium Level 2.0, Total Bilirubin 0.2, Aspartate Amino Transf (AST/SGOT) 15, Alanine Aminotransferase (ALT/SGPT) 27, Alkaline Phosphatase 106, B-Type Natriuretic Peptide 49.1, Total Protein 7.3, A lbumin 3.4 09/08/19 10:37: Blood Gas Puncture Site L BRACHIAL, Blood Gas Patient Temperature 36.3, Arterial Blood pH 7.45H, Arterial Blood Partial Pressure CO2 42, Arterial Blood Partial Pressure O2 70L, Arterial Blood HCO3 29H, Arterial Blood Total CO2 30.2, Arterial Blood Oxygen Saturation 94, Arterial Blood Base Excess 4.8H, Yamil Test YES-POS, Blood Gas Ventilator Setting NO, Blood Gas Inspired Oxygen 3 09/08/19 11:08: Glucometer 437*H Microbiology 09/07/19 Influenza Types A,B Antigen ([place]) - Final, Complete 09/07/19 Urine Culture - Preliminary, Resulted Escherichia coli Klebsiella pneumoniae 09/07/19 Blood Culture - Preliminary, Resulted No growth A/P: Assessment/Dx: Acute respiratory failure, Acute influenza, Acute congestive heart failure, Paroxysmal atrial fibrillation, Diabetes, Morbid obesity, Hyponatremia, Hypertension, Hyperlipidemia Plan: Acute respiratory failure, likely multifactorial. Acute influenza, pneumonia, acute congestive heart failure. Defer to the primary team. Acute influenza, for to the primary team. Acute congestive heart failure, elevated BNP. However due to sepsis I would avoid Lasix for now. Echocardiogram. Paroxysmal atrial fibrillation, on Eliquis. Currently sinus tachycardia. Diabetes, continue outpatient medical therapy. Defer to the primary team. Morbid obesity, Hyponatremia, could be secondary to congestive heart failure. Hypertension, continue outpatient medical therapy. Hyperlipidemia, continue statin therapy. Thank you for your consultation. Please call me if you have any questions. Cliff Hamm MD, FACP, FACC, FSCAI, FHRS, CCDS Interventional Cardiology Cardiac Electrophysiology Vascular Medicine and Endovascular Interventions Focused Exam Lactate Level 09/07/19 11:39: Lactic Acid Level 1.41 Alan HAMM MD Sep 08, 2019 20:59
[2019-09-08] MEDS ORDERED: MELATONIN 3 MG TABLET PO PRN (21:00)
[2019-09-09] VITALS (12 sets, daily range): BP systolic 115–162; BP diastolic 61–86
[2019-09-09] MEDS: RT-ALBUTEROL/IPRATROPIUM 3 ML (DUONEB) VIAL INH SCH ×6 (02:45→23:08)
[2019-09-09 04:54] LABS: BASOPHILS % (AUTO) 0 % (0-10); EOSINOPHILS % (AUTO) 0 % (0-10); HEMATOCRIT 37 % (35-52); LYMPHOCYTES % (AUTO) 6 % (12-44); MEAN CORPUSCULAR HEMOGLOBIN 28 PG (25-34); MEAN CORPUSCULAR HGB CONC 33 G/DL (32-36); MEAN CORPUSCULAR VOLUME 86 FL (80-99); MEAN PLATELET VOLUME 12.1 FL (7.4-10.4); MONOCYTES # (AUTO) 0.8 X 10^3 (0.0-1.0); MONOCYTES % (AUTO) 5 % (0-12); NEUTROPHILS # (AUTO) 15.2 X 10^3 (1.8-7.8); NEUTROPHILS % (AUTO) 89 % (42-75); PLATELET COUNT 247 10^3/uL (130-400); RED CELL DISTRIBUTION WIDTH 15.8 % (10.0-14.5)
[2019-09-09] MEDS: PIPERACILLIN/TAZOBACTAM (BULK) 4.5 GM in NS (IVPB) 100 ML IV SCH ×3 (05:09→22:10)
[2019-09-09 05:17] LABS: BAND NEUTROPHILS 3 %; LYMPHOCYTES % (MANUAL) 3 %; MONOCYTES % (MANUAL) 3 %; NEUTROPHILS % (MANUAL) 91 %
[2019-09-09 05:18] LABS: CALCIUM 9.1 MG/DL (8.5-10.1); CREATININE SERUM 1.12 MG/DL (0.60-1.30); MAGNESIUM 2.2 MG/DL (1.6-2.4); PHOSPHORUS 3.5 MG/DL (2.3-4.7); POTASSIUM 4.3 MMOL/L (3.6-5.0); RBC MORPH NORMAL
[2019-09-09] MEDS: KCL 20 MEQ TAB (K-DUR) PO SCH ×2 (05:27→08:27)
[2019-09-09] MEDS: MAGNESIUM 1 GM/100 ML IVPB 100 ML IV SCH (05:27)
[2019-09-09] MEDS: POTASSIUM CL 10MEQ/50ML IVPB 50 ML IV SCH (05:27)
[2019-09-09] MEDS ORDERED: methylPREDNISolone 125 MG (Solu-MEDROL) VIAL ONE (06:00)
--- NOTE | 2019-09-09 06:00 | Pulmonary Progress Note ---
Subjective Time Seen by a Provider: 10:25 Subjective/Events-last exam No complications noted. Sepsis Event Evaluation Height, Weight, BMI Height: 5'9.00" Weight: 253lbs. 1.0oz. 114.910984ch; 39.00 BMI Method:Stated Focused Exam Lactate Level 09/07/19 11:39: Lactic Acid Level 1.41 Exam Exam Vital Signs Date Time Temp Pulse Resp B/P (MAP) Pulse Ox O2 Delivery O2 Flow Rate FiO2 09/09/19 05:00 84 25 115/76 (89) 94 Nasal Cannula 3.00 09/09/19 04:00 Nasal Cannula 3.00 09/09/19 04:00 82 19 117/64 (81) 93 Nasal Cannula 3.00 09/09/19 03:00 90 20 150/72 (98) 93 Nasal Cannula 3.00 09/09/19 02:48 95 Nasal Cannula 3.00 09/09/19 02:00 86 19 118/61 (80) 88 Nasal Cannula 3.00 09/09/19 01:00 86 22 162/80 (107) 95 Nasal Cannula 3.00 09/09/19 01:00 86 09/09/19 00:00 Nasal Cannula 3.00 09/09/19 00:00 95 14 137/65 (89) 94 Nasal Cannula 3.00 09/08/19 23:00 92 20 123/59 (80) 90 Nasal Cannula 3.00 09/08/19 22:00 94 17 109/64 (79) 94 Nasal Cannula 3.00 09/08/19 21:49 95 Nasal Cannula 3.00 09/08/19 21:00 91 23 149/92 (111) 93 Nasal Cannula 3.00 09/08/19 20:00 Nasal Cannula 3.00 09/08/19 20:00 95 27 121/64 (83) 93 Nasal Cannula 3.00 09/08/19 19:03 98 Nasal Cannula 3.00 09/08/19 19:00 101 30 158/74 (102) 98 Nasal Cannula 3.00 09/08/19 19:00 101 09/08/19 18:52 98 Nasal Cannula 3.00 09/08/19 18:00 90 15 115/58 (77) 91 Nasal Cannula 3.00 09/08/19 17:00 98 40 121/64 (83) 93 Nasal Cannula 3.00 09/08/19 16:00 95 21 127/67 (87) 94 Nasal Cannula 3.00 09/08/19 16:00 Nasal Cannula 3.00 09/08/19 15:43 36.8 09/08/19 15:00 101 16 125/67 (86) 92 Nasal Cannula 3.00 09/08/19 14:49 93 Nasal Cannula 3.00 09/08/19 14:00 98 18 144/78 (100) 95 Nasal Cannula 3.00 09/08/19 13:00 96 09/08/19 13:00 93 11 104/85 (91) 93 Nasal Cannula 3.00 09/08/19 12:00 Nasal Cannula 3.00 09/08/19 12:00 98 17 138/71 (93) 95 Nasal Cannula 3.00 09/08/19 11:50 36.5 09/08/19 11:00 94 19 130/79 (96) 94 Nasal Cannula 3.00 09/08/19 10:45 Nasal Cannula 3.00 09/08/19 10:34 3.00 09/08/19 10:25 93 Nasal Cannula 4.00 09/08/19 10:00 103 23 157/77 (103) 96 Nasal Cannula 2.00 09/08/19 09:00 96 14 126/68 (87) 94 Nasal Cannula 2.00 09/08/19 08:00 Nasal Cannula 3.00 09/08/19 08:00 36.2 09/08/19 08:00 94 23 147/79 (101) 93 Nasal Cannula 2.00 09/08/19 07:00 86 09/08/19 07:00 85 16 143/61 (88) 94 Nasal Cannula 2.00 09/08/19 06:58 94 Nasal Cannula 3.00 09/08/19 06:00 85 9 146/80 (102) 95 Nasal Cannula 2.00 I & O 09/09/19 07:00 Intake Total 2000 ml Output Total 7000 ml Balance -5000 ml Height & Weight Height: 5'9.00" Weight: 253lbs. 1.0oz. 114.343119ol; 39.00 BMI Method:Stated General Appearance: No Apparent Distress, WD/WN, Anxious, Chronically ill HEENT: PERRL/EOMI, TMs Normal, Normal ENT Inspection, Pharynx Normal Neck: Tender Lateral Respiratory: No Accessory Muscle Use, No Respiratory Distress, Crackles, Rales, Rhonci Cardiovascular: Regular Rate, Rhythm, No Edema, No Murmur Capillary Refill: Less Than 3 Seconds Extremity: Normal Capillary Refill, Normal Inspection, Non Tender, No Calf Tenderness Neurologic/Psychiatric: Alert Skin: Normal Color, Warm/Dry Results Lab Laboratory Tests 09/07/19 11:39 09/08/19 03:00 09/09/19 04:40 Assessment/Plan Assessment/Plan Acute on chronic respiratory failure Morbid obesity Influenza B -Tamiflu -Pt did not have her influenza vaccination this year COPDAE -Pt does have oxygen at home -Continue Solumedrol -Duonebs Q4 -Add mucinex Atelectasis -Add IS -Increase activity Current smoker -Education CHFAE -Lasix Hyponatremia -Monitor STEFANIE STARKS DO Sep 09, 2019 06:00
[2019-09-09] MEDS: CATHETER FLUSH 10 ML SYR IV SCH ×3 (06:06→22:10)
[2019-09-09] MEDS: TROSPIUM 20 MG (SANCTURA) TAB PO SCH ×2 (06:06→16:52)
[2019-09-09] MEDS: inSUlin ASPART (NovoLOG) 1 UNIT/0.01 ML (CHARGE PER UNIT) SC SCH ×7 (06:06→21:39)
[2019-09-09] MEDS: methylPREDNISolone 125 MG (Solu-MEDROL) VIAL IVP SCH ×3 (06:06→18:45)
[2019-09-09] MEDS: FUROSEMIDE 40 MG/4 ML INJ (LASIX) IVP SCH ×2 (06:07→16:52)
--- NOTE | 2019-09-09 07:56 | Diagnostic Imaging Report ---
EXAMINATION: Chest 1 view HISTORY: Shortness of breath COMPARISON: 09/08/2019 FINDINGS: There has been an increase in the now moderate pulmonary edema. No pleural effusion is seen. No pneumothorax. Heart size is normal. IMPRESSION: 1. Increase in the moderate pulmonary edema. Dictated by: Dictated on workstation # [id number]
[2019-09-09] MEDS: PREGABALIN 150 MG (LYRICA) CAPSULE PO SCH ×3 (08:26→21:39)
[2019-09-09] MEDS: LOSARTAN 25 MG (COZAAR) TAB PO SCH (08:27)
[2019-09-09] MEDS: OSELTAMIVIR 75 MG (TAMIFLU) CAPSULE PO SCH ×2 (08:27→21:39)
[2019-09-09] MEDS: MELOXICAM 7.5 MG (MOBIC) TABLET PO SCH (08:27)
[2019-09-09] MEDS: DULoxetine 30 MG (CYMBALTA) CAP PO SCH (08:27)
[2019-09-09] MEDS: APIXABAN 5 MG (ELIQUIS) TABLET PO SCH ×2 (08:27→22:10)
[2019-09-09] MEDS: SENNA W/DOCUSATE (SENOKOT S) TABLET PO SCH ×2 (08:27→21:39)
[2019-09-09] MEDS: PANTOPRAZOLE 40 MG (PROTONIX) TAB PO SCH (08:28)
[2019-09-09] MEDS: CYCLOBENZAPRINE 10 MG (FLEXERIL) TAB PO SCH ×3 (08:28→21:39)
[2019-09-09] MEDS: MAGIC MOUTHWASH (ADULT) PO SCH ×16 (08:28→21:40)
[2019-09-09] MEDS: guaiFENesin (MUCINEX) 600 MG TAB PO SCH ×2 (08:29→21:39)
[2019-09-09] MEDS: LINAGLIPTIN (TRADJENTA) 5 MG TABLET PO SCH (08:37)
[2019-09-09] MEDS ORDERED: MAGIC MOUTHWASH, ADULT 155 ML BOTTLE PO SCH (09:00)
--- NOTE | 2019-09-09 09:47 | Physical Therapy Daily Note ---
PT Daily Note-Current Subjective Patient in bed pre tx, agrees reluctantly to PT, is anxious about getting up, has pain in right leg from knee down 10/10 per patient report. Appearance Patient in recliner at bedside post tx with nurse call, phone, tray, all needs met. Mental Status Patient Orientation: Person, Place, Situation Attachments: Oxygen, Bertrand Catheter, IV Transfers SCALE: Activities may be completed with or without assistive devices. 9-Edguhgfqqt-ehenzqz completes the activity by him/herself with no assistance from a helper. 5-Set-up or Clean-up Assistance-helper sets up or cleans up; patient completes activity. [place] assists only prior to or following the activity. 4-Supervision or Touching Assistance-helper provides verbal cues and/or touching/steadying and/or contact guard assistance as patient completes activity. Assistance may be provided throughout the activity or intermittently. 3-Partial/Moderate Assistance-helper does LESS THAN HALF the effort. [place] lifts, holds or supports trunk or limbs, but provides less than half the effort. 2-Substantial/Maximal Assistance-helper does MORE THAN HALF the effort. [place] lifts or holds trunk or limbs and provides more than half the effort. 8-Brstayazf-gbfayv does ALL the effort. Patient does none of the effort to complete the activity. Or, the assistance of 2 or more helpers is required for the patient to complete the activity. If activity was not attempted, code reason: 7-Patient Refused. 9-Not Applicable-not attempted and the patient did not perform the activity before the current illness, exacerbation or injury. 10-Not Attempted due to Environmental Limitations-(lack of equipment, weather restraints, etc.). 88-Not Attempted due to Medical Conditions or Safety Concerns. Roll Left & Right (QC): 6 Lying to Sitting/Side of Bed(Q: 3 Sit to Stand (QC): 3 Chair/Tvl-ki-Clepv Xfer(QC): 4 Min assist for supine to sit and sit to stand but CGA for transfer, cues for hand placement and positioning. Gait Training Distance: 3' Gait Persons Needed: 1 Gait Assistive Device: FWW CGA Exercises Seated Therapy Exercises: Ankle pumps, Long arc quads Seated Reps: 20 Treatments bed mobility and transfers, ambulation, LE exercise Assessment Current Status: Fair Progress improved transfers and general mobility. O2 91% pre tx, 91% after transfer to recliner. PT Fci Goals Fci Goals PT Medication Specialist Goals Time Frame: Sep 15, 2019 Roll Left & Right (QC): 6 Sit to Lying (QC): 6 Lying-Sitting on Side/Bed(QC): 6 Sit to Stand (QC): 6 Chair/Pea-lq-Bdfxl Xfer(QC): 6 Toilet Transfer (QC): 6 Walk 10 feet (QC): 6 Walk 50ft with 2 Turns (QC): 6 Walk 150 ft (QC): 6 PT Plan Problem List Problem List: Activity Tolerance, Functional Strength, Safety, Balance, Gait, Transfer Treatment/Plan Treatment Plan: Continue Plan of Care Treatment Plan: Education, Functional Activity Cait, Functional Strength, Gait, Safety, Therapeutic Exercise, Transfers Treatment Duration: Sep 15, 2019 Frequency: 6 times per week Estimated Hrs Per Day: .25 hour per day Patient and/or Family Agrees t: Yes Safety Risks/Education Patient Education: Gait Training, Transfer Techniques, Correct Positioning, Safety Issues Teaching Recipient: Patient Teaching Methods: Demonstration, Discussion Response to Teaching: Reinforcement Needed Time/GCodes Time In: 919 Time Out: 935 Total Billed Treatment Time: 16 Total Billed Treatment 1 visit FA KELLY MORSE PT Sep 09, 2019 09:47
[2019-09-09] MEDS: UMECLIDINIUM BROMIDE (INCRUSE ELLIPTA) 7'S IH SCH (10:35)
[2019-09-09] MEDS: RT-BUDESONIDE NEBS 0.5 MG/2ML (PULMICORT) AMP INH SCH ×2 (10:35→19:14)
[2019-09-09] MEDS: ADVAIR HFA 115/21 MCG INHALER 8 GM IH SCH ×2 (10:35→23:09)
--- NOTE | 2019-09-09 10:51 | Progress Note - Hospitalist ---
IAM CABRERA [facility] 09/09/19 1051: Subjective HPI/CC On Admission Date Seen by Provider: Sep 09, 2019 Time Seen by Provider: 08:30 CC: Dyspnea with cough HPI: This is a 54yoWF clinic patient of [facility] who is known to me from prior admit who has h/o severe COPD who presented to [facility] ER with cough and wheezing and was found to have volume overload and hypoxia and dx with influenza so she was placed on Tamiflu, steroids, Lasix IV and abx for infiltrates on CXR. Subjective/Events-last exam Patient is doing much better today. She is laying comfortably in bed watching tv when I arrived. Lung sounds have improved dramatically. She will be moving down to the 4th floor today Patient denies chest pain. Has no new complaints at this time. She had a bowel movement yesterday without issue. She had eaten breakfast earlier this morning and tolerated that without any nausea or vomiting. Continue to monitor for respiratory improvement. Focused Exam Lactate Level 09/07/19 11:39: Lactic Acid Level 1.41 Objective Exam Vital Signs Vital Signs Date Time Temp Pulse Resp B/P (MAP) Pulse Ox O2 Delivery O2 Flow Rate FiO2 09/09/19 10:36 95 Nasal Cannula 3.00 09/09/19 08:00 36.3 09/09/19 06:45 90 09/09/19 06:00 135/75 (95) 09/09/19 05:00 25 09/07/19 17:23 36 Capillary Refill : Less Than 3 Seconds General Appearance: No Apparent Distress, WD/WN Respiratory: Chest Non Tender, No Accessory Muscle Use, Wheezing Cardiovascular: Regular Rate, Rhythm, No Edema, No Gallop, No Murmur Gastrointestinal: Normal Bowel Sounds, No Pulsatile Mass, Soft, Tenderness ( improvement of tenderness in suprapubic region) Rectal: Deferred Back: Normal Inspection Neurologic/Psychiatric: Alert Skin: Normal Color, Warm/Dry Results/Procedures Lab Laboratory Tests 09/09/19 04:40 Patient resulted labs reviewed. Assessment/Plan Assessment and Plan Assess & Plan/Chief Complaint Assessment Acute problems Influenza B UTI Acute Respiratory Failure CHF Exacerbation Elevated BNP CXR findings of edema, HF or pneumonia Respiratory Acidosis - resolved Hyponatremia - resolved Asessment Chronic Problems COPD Asthma PAF - she is currently in Sinus Tach Hx of pancreatitis GERD s/p EGD/Colonoscopy 1 month ago Anxiety Depression Morbid Obesity HTN Poor social support Plan Continue Abx Move to 4th floor for medical management PT/OT MRSA screen Home meds for depression and anxiety Respiratory and cardiology are following DVT Prophylaxis Diabetes diet smoking cessation Social work consult Clinical Quality Measures DVT/VTE Risk/Contraindication: Risk Factor Score Per Nursin RFS Level Per Nursing on Admit: 4+=Very High KENDRA URBINA DO 09/09/192110: Subjective Subjective/Events-last exam Pt transferring to fourth floor. White count now 17 from steroids. Cough is much improved. Overall much improved. Will discontinue catheter soon and get out of bed with PT and OT. Review of Systems General: Fatigue Pulmonary: Cough Objective Exam General Appearance: No Apparent Distress, WD/WN Respiratory: No Accessory Muscle Use, No Respiratory Distress, Decreased Breath Sounds Assessment/Plan Assessment and Plan Assess & Plan/Chief Complaint Transfer to 4th Doing better Supervisory-Addendum Brief Verification & Attestation Participated in pt care: history, MDM, physical Personally performed: exam, history, MDM, supervision of care Care discussed with: Medical Student Procedures: n/a Results interpretation: Verified all documentation Verification and Attestation of Medical Student E/M Service A medical student performed and documented this service in my presence. I reviewed and verified all information documented by the medical student and made modifications to such information, when appropriate. I personally performed the physical exam and medical decision making. Kendra Urbina, Sep 09, 2019,21:10 IAM CABRERA STUD Sep 09, 2019 10:51 KENDRA URBINA DO Sep 09, 2019 21:11
[2019-09-09] MEDS: HYDROcodone/APAP 5 MG/325 MG (LORTAB) TAB PO PRN (10:56)
--- NOTE | 2019-09-09 13:06 | Cardiology Progress Note ---
Cardiology SOAP Progress Note Subjective: Improved shortness of breath. Objective: I&O/Vital Signs 09/09/19 09/09/19 09/09/19 09/09/19 03:00 04:00 04:00 05:00 Pulse 90 82 84 Resp 20 19 25 B/P (MAP) 150/72 (98) 117/64 (81) 115/76 (89) Pulse Ox 93 93 94 O2 Delivery Nasal Cannula Nasal Cannula Nasal Cannula Nasal Cannula O2 Flow Rate 3.00 3.00 3.00 3.00 09/09/19 09/09/19 09/09/19 09/09/19 06:00 06:45 08:00 08:00 Pulse 86 90 93 Resp 28 B/P (MAP) 135/75 (95) 139/86 (103) Pulse Ox 97 93 89 O2 Delivery Nasal Cannula Nasal Cannula Nasal Cannula O2 Flow Rate 3.00 3.00 3.00 09/09/19 09/09/19 09/09/19 09/09/19 08:00 10:36 11:58 12:00 Temp 36.3 35.8 Pulse 91 B/P (MAP) 138/86 (103) Pulse Ox 95 93 O2 Delivery Nasal Cannula Nasal Cannula O2 Flow Rate 3.00 3.00 09/09/19 09/09/19 12:00 14:02 Pulse Ox 93 93 O2 Delivery Nasal Cannula Nasal Cannula O2 Flow Rate 3.00 3.00 09/08/19 23:59 Intake Total 1650 ml Output Total 5425 ml Balance -3775 ml Weight (Pounds): 253 Weight (Ounces): 1.0 Weight (Calculated Kilograms): 114.522619 Constitutional: appears stated age, AAO x 3, well-developed, well-nourished Respiratory: chest is bilaterally symmetric, other (course breath sounds bilaterally.) Cardiovascular: regular rate-rhythm, tachycardia, S1 and S2 Gastrointestional: soft, distended, audible bowel sounds; No spleenomegaly Extremities: normal range of motion, non-tender, normal inspection, pedal edema; No clubbing, No cyanosis, No significant edema Neurologic/Psychiatric: no motor/sensory deficits, alert, normal mood/affect, oriented x 3, power is 5/5 both on sides Skin: normal color, warm/dry; No rash, No ulcerations Results/Procedures: Labs Laboratory Tests 09/09/19 04:40: White Blood Count 17.0H, Red Blood Count 4.26L, Hemoglobin 12.0, Hematocrit 37, Mean Corpuscular Volume 86, Mean Corpuscular Hemoglobin 28, Mean Corpuscular Hemoglobin Concent 33, Red Cell Distribution Width 15.8H, Platelet Count 247, Mean Platelet Volume 12.1H, Neutrophils (%) (Auto) 89H, Lymphocytes (%) (Auto) 6L, Monocytes (%) (Auto) 5, Eosinophils (%) (Auto) 0, Basophils (%) (Auto) 0, Neutrophils # (Auto) 15.2H, Lymphocytes # (Auto) 1.0, Monocytes # (Auto) 0.8, Eosinophils # (Auto) 0.0, Basophils # (Auto) 0.0, Neutrophils % (Manual) 91, Lymphocytes % (Manual) 3, Monocytes % (Manual) 3, Band Neutrophils 3, Blood Morphology Comment NORMAL, Sodium Level 135, Potassium Level 4.3, Chloride Level 95L, Carbon Dioxide Level 26, Anion Gap 14, Blood Urea Nitrogen 37H, Creatinine 1.12, Estimat Glomerular Filtration Rate 50, BUN/Creatinine Ratio 33, Glucose Level 314H, Calcium Level 9.1, Phosphorus Level 3.5, Magnesium Level 2.2 09/09/19 11:24: Glucometer 479*H Microbiology 09/07/19 Influenza Types A,B Antigen ([place]) - Final, Complete 09/07/19 Urine Culture - Preliminary, Resulted Escherichia coli Klebsiella pneumoniae 09/07/19 Blood Culture - Preliminary, Resulted No growth A/P: Assessment/Dx: Acute respiratory failure, Acute influenza, Acute congestive heart failure, Paroxysmal atrial fibrillation, Diabetes, Morbid obesity, Hyponatremia, Hypertension, Hyperlipidemia Plan: Acute respiratory failure, likely multifactorial. Acute influenza, pneumonia, acute congestive heart failure. Defer to the primary team. Acute influenza, for to the primary team. Acute congestive heart failure, elevated BNP. However due to sepsis I would avoid Lasix for now. Echocardiogram. Paroxysmal atrial fibrillation, on Eliquis. Currently sinus tachycardia. Diabetes, continue outpatient medical therapy. Defer to the primary team. Morbid obesity, Hyponatremia, could be secondary to congestive heart failure. Hypertension, continue outpatient medical therapy. Hyperlipidemia, continue statin therapy. Thank you for your consultation. Please call me if you have any questions. Cliff Hamm MD, FACP, FACC, FSCAI, FHRS, CCDS Interventional Cardiology Cardiac Electrophysiology Vascular Medicine and Endovascular Interventions Focused Exam Lactate Level 09/07/19 11:39: Lactic Acid Level 1.41 Alan HAMM MD Sep 09, 2019 13:06
--- NOTE | 2019-09-09 14:13 | Occupational Therapy Eval ---
OT Evaluation-General/PLF Medical Diagnosis Admission Date Sep 07, 2019 at 13:50 Medical Diagnosis: Influenza B Onset Date: Sep 07, 2019 Therapy Diagnosis Therapy Diagnosis: Weakness, Decreased ADL skills Height/Weight Height (Feet): 5 Height (Inches): 9.00 Weight (Pounds): 253 Weight (Ounces): 1.0 Precautions Precautions/Isolations: Droplet Isolation, Fall Prevention, Standard Pre cautions Safety Interventions: None Weight Bear Status Weight Bearing Restriction: Weight Bearing/Tolerated Referral Physician: Rasheed Referral Reason: Activity Tolerance, Self Care, Evaluation/Treatment, Strengthening/ROM Medical History Pertinent Medical History: Arthritis, COPD, DM, GERD, HTN, Neuropathy, Smoking Current History Pt. in hospital from weakness from influenza B and CHF exacerbation. Reviewed History: Yes Social History Home: Single Level Current Living Status: Alone Entry Into Home: Level Entry ADL-Prior Level of Function SCALE: Activities may be completed with or without assistive devices. 7-Yyfhzynxze-cbdeesi completes the activity by him/herself with no assistance from a helper. 5-Set-up or Clean-up Assistance-helper sets up or cleans up; patient completes activity. [place] assists only prior to or following the activity. 4-Supervision or Touching Assistance-helper provides verbal cues and/or touching/steadying and/or contact guard assistance as patient completes activity. Assistance may be provided throughout the activity or intermittently. 3-Partial/Moderate Assistance-helper does LESS THAN HALF the effort. [place] lifts, holds or supports trunk or limbs, but provides less than half the effort. 2-Substantial/Maximal Assistance-helper does MORE THAN HALF the effort. [place] lifts or holds trunk or limbs and provides more than half the effort. 5-Xnwgqljvo-gnijna does ALL the effort. Patient does none of the effort to complete the activity. Or, the assistance of 2 or more helpers is required for the patient to complete the activity. If activity was not attempted, code reason: 7-Patient Refused. 9-Not Applicable-not attempted and the patient did not perform the activity before the current illness, exacerbation or injury. 10-Not Attempted due to Environmental Limitations-(lack of equipment, weather restraints, etc.). 88-Not Attempted due to Medical Conditions or Safety Concerns. ADL PLOF Comments Pt. states that she is independent in her home. Uses a walker. States that if she has to walk too long, her legs and back "collapse." Pt. states that she just feels weak. Self Care: Unknown Functional Cognition: Unknown DME/Equipment: Bath Chair, Shower Drive Self: Yes OT Current Status Subjective Pt. reports pain in her back, but states that this is "all the time." States that she has had medication. Appearance Pt. up in chair. Requesting to go back to bed. Mental Status/Objective Patient Orientation: Person, Place Current Upper Extremity ROM WFL Upper Extremity Strength OT asks pt. to squeeze OT hand. Pt. gives light squeeze bilaterally. ADL-Treatment On/Off Footwear (QC): 4 (SBA. Pt. able to bring feet up to her in sitting and doff/don slipper socks. This is a struggle.) Other Treatments Pt. stood from chair with CGA. Pt. able to take several steps with walker and transfer to bed. Pt. able to get feet into bed and position self to comfort level. All needs met. Education OT Patient Education: Correct positioning, Modified ADL techniques, Purpose of tx/functional activities, Reviewed precautions, Rehab process, Transfer techniques Teaching Recipient: Patient Teaching Methods: Demonstration, Discussion Response to Teaching: Verbalize Understanding, Return Demonstration OT Jail Goals Jail Goals Time Frame: Sep 16, 2019 Eating (QC): 6 Oral Hygiene (QC): 6 Toileting Hygiene (QC): 6 Shower/Bathe Self (QC): 5 Upper Body Dressing (QC): 6 Lower Body Dressing (QC): 6 On/Off Footwear (QC): 6 Additional Goals: 1-Demonstrate ADL Tasks, 2-Verbalize Understanding, 3- ImproveStrength/Cati 1=Demonstrate adherence to instructed precautions during ADL tasks. 2=Patient will verbalize/demonstrate understanding of assistive devices/modifications for ADL. 3=Patient will improve strength/tolerance for activity to enable patient to perform ADL's. OT Education/Plan Problem List/Assessment Assessment: Decreased Activ Tolerance, Impaired I ADL's, Impaired Self-Care Skills Discharge Recommendations Plan/Recommendations: Continue POC Treatment Plan/Plan of Care Treatment,Training & Education: Yes Patient would benefit from OT for education, treatment and training to promote independence in ADL's, mobility, safety and/or upper extremity function for ADL's. Plan of Care: ADL Retraining, Functional Mobility, UE Funct Exercise/Act Treatment Duration: Sep 16, 2019 Frequency: 5 times per week Estimated Hrs Per Day: .25 hour per day Agreement: Yes Rehab Potential: Fair Time/GCodes Start Time: 11:20 Stop Time: 11:35 Total Time Billed (hr/min): 15 Billed Treatment Time 1, RAJNI GALLEGOS OT Sep 09, 2019 14:13
--- NOTE | 2019-09-09 14:37 | NUR ---
THIS NURSE GAVE REPORT TO ZACHARY PERALTA ON FOURTH FLOOR. PT TAKEN DOWN VIA BED WITH PERSONAL BELONGINGS.
--- NOTE | 2019-09-09 14:55 | NUR ---
pt arrived to room. This RN to resume care. This RN agrees with previous nurses assessment.
[2019-09-09] MEDS: AMITRIPTYLINE 50 MG (ELAVIL) TAB PO SCH (21:39)
[2019-09-10] VITALS (7 sets, daily range): BP systolic 101–136; BP diastolic 1–73
[2019-09-10] MEDS: methylPREDNISolone 125 MG (Solu-MEDROL) VIAL IVP SCH ×4 (00:55→17:20)
[2019-09-10] MEDS: RT-ALBUTEROL/IPRATROPIUM 3 ML (DUONEB) VIAL INH SCH ×6 (02:29→22:18)
[2019-09-10] MEDS: CATHETER FLUSH 10 ML SYR IV SCH ×3 (05:15→20:11)
[2019-09-10] MEDS: PIPERACILLIN/TAZOBACTAM (BULK) 4.5 GM in NS (IVPB) 100 ML IV SCH ×2 (05:15→13:00)
[2019-09-10 05:19] LABS: BASOPHILS % (AUTO) 0 % (0-10); EOSINOPHILS % (AUTO) 0 % (0-10); HEMATOCRIT 38 % (35-52); HEMOGLOBIN 12.1 G/DL (11.5-16.0); LYMPHOCYTES % (AUTO) 6 % (12-44); MEAN CORPUSCULAR HEMOGLOBIN 28 PG (25-34); MEAN CORPUSCULAR HGB CONC 32 G/DL (32-36); MEAN CORPUSCULAR VOLUME 87 FL (80-99); MEAN PLATELET VOLUME 12.1 FL (7.4-10.4); MONOCYTES # (AUTO) 0.9 X 10^3 (0.0-1.0); MONOCYTES % (AUTO) 5 % (0-12); NEUTROPHILS # (AUTO) 15.8 X 10^3 (1.8-7.8); NEUTROPHILS % (AUTO) 89 % (42-75); PLATELET COUNT 234 10^3/uL (130-400); RED CELL DISTRIBUTION WIDTH 15.5 % (10.0-14.5); WHITE BLOOD COUNT 17.7 10^3/uL (4.3-11.0)
[2019-09-10 05:46] LABS: CALCIUM 9.1 MG/DL (8.5-10.1); MAGNESIUM 2.2 MG/DL (1.6-2.4); PHOSPHORUS 3.4 MG/DL (2.3-4.7); POTASSIUM 4.4 MMOL/L (3.6-5.0)
[2019-09-10] MEDS: KCL 20 MEQ TAB (K-DUR) PO SCH ×2 (05:52→09:05)
[2019-09-10] MEDS: POTASSIUM CL 10MEQ/50ML IVPB 50 ML IV SCH (05:52)
[2019-09-10] MEDS: MAGNESIUM 1 GM/100 ML IVPB 100 ML IV SCH (05:52)
[2019-09-10] MEDS: FUROSEMIDE 40 MG/4 ML INJ (LASIX) IVP SCH ×2 (06:39→17:20)
[2019-09-10] MEDS: TROSPIUM 20 MG (SANCTURA) TAB PO SCH ×2 (06:39→17:20)
[2019-09-10] MEDS: inSUlin ASPART (NovoLOG) 1 UNIT/0.01 ML (CHARGE PER UNIT) SC SCH ×7 (06:40→21:50)
[2019-09-10] MEDS: DULoxetine 30 MG (CYMBALTA) CAP PO SCH (09:03)
[2019-09-10] MEDS: SENNA W/DOCUSATE (SENOKOT S) TABLET PO SCH ×2 (09:04→21:49)
[2019-09-10] MEDS: OSELTAMIVIR 75 MG (TAMIFLU) CAPSULE PO SCH ×2 (09:04→21:49)
[2019-09-10] MEDS: PANTOPRAZOLE 40 MG (PROTONIX) TAB PO SCH (09:04)
[2019-09-10] MEDS: LINAGLIPTIN (TRADJENTA) 5 MG TABLET PO SCH (09:04)
[2019-09-10] MEDS: PREGABALIN 150 MG (LYRICA) CAPSULE PO SCH ×3 (09:04→21:49)
[2019-09-10] MEDS: APIXABAN 5 MG (ELIQUIS) TABLET PO SCH ×2 (09:05→21:49)
[2019-09-10] MEDS: guaiFENesin (MUCINEX) 600 MG TAB PO SCH ×2 (09:05→21:49)
[2019-09-10] MEDS: LOSARTAN 25 MG (COZAAR) TAB PO SCH (09:06)
[2019-09-10] MEDS: MELOXICAM 7.5 MG (MOBIC) TABLET PO SCH (09:06)
[2019-09-10] MEDS: MAGIC MOUTHWASH (ADULT) PO SCH ×16 (09:07→21:51)
[2019-09-10] MEDS: CYCLOBENZAPRINE 10 MG (FLEXERIL) TAB PO SCH ×3 (09:08→21:49)
[2019-09-10] MEDS: FLUTICASONE NASAL SPRAY (FLONASE) 16 GM BTL NS PRN (09:11)
--- NOTE | 2019-09-10 10:27 | Progress Note - Hospitalist ---
Subjective HPI/CC On Admission Date Seen by Provider: Sep 10, 2019 Time Seen by Provider: 09:45 CC: Dyspnea with cough HPI: This is a 54yoWF clinic patient of [facility] who is known to me from prior admit who has h/o severe COPD who presented to [facility] ER with cough and wheezing and was found to have volume overload and hypoxia and dx with influenza so she was placed on Tamiflu, steroids, Lasix IV and abx for infiltrates on CXR. Subjective/Events-last exam DC is planned for tomorrow Home O2 since she only uses it at night at home Will need home health Will DC telemetry Maintain PT and OT Review of Systems General: Fatigue Pulmonary: Dyspnea Focused Exam Lactate Level Objective Exam Vital Signs Vital Signs Date Time Temp Pulse Resp B/P (MAP) Pulse Ox O2 Delivery O2 Flow Rate FiO2 09/10/19 19:41 36.5 85 24 112/64 (80) 93 Nasal Cannula 3.00 09/07/19 17:23 36 Capillary Refill : Less Than 3 Seconds General Appearance: No Apparent Distress, WD/WN, Chronically ill Respiratory: Lungs Clear, Normal Breath Sounds Cardiovascular: Regular Rate, Rhythm Neurologic/Psychiatric: Alert, Oriented x3, No Motor/Sensory Deficits, Normal Mood/Affect Results/Procedures Lab Laboratory Tests 09/10/19 05:10 Patient resulted labs reviewed. Assessment/Plan Assessment and Plan Assess & Plan/Chief Complaint Assessment Acute problems Influenza B UTI ESBL adding Meropenem today 09/10/19 Acute Respiratory Failure CHF Exacerbation Elevated BNP CXR findings of edema, HF or pneumonia Respiratory Acidosis - resolved Hyponatremia - resolved Asessment Chronic Problems COPD Asthma PAF - she is currently in Sinus Tach Hx of pancreatitis GERD s/p EGD/Colonoscopy 1 month ago Anxiety Depression Morbid Obesity HTN Poor social support Plan Continue Abx Move to 4th floor for medical management PT/OT MRSA screen Home meds for depression and anxiety Respiratory and cardiology are following DVT Prophylaxis Diabetes diet smoking cessation Social work consult Diagnosis/Problems Diagnosis/Problems (1) Influenza B Status: Acute (2) ESBL (extended spectrum beta-lactamase) producing bacteria infection (3) CHF (congestive heart failure) Status: Acute Qualifiers: Heart failure type: unspecified Heart failure chronicity: acute Qualified Codes: I50.9 - Heart failure, unspecified (4) 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
[2019-09-10] MEDS: RT-BUDESONIDE NEBS 0.5 MG/2ML (PULMICORT) AMP INH SCH ×2 (11:05→18:39)
[2019-09-10] MEDS: ADVAIR HFA 115/21 MCG INHALER 8 GM IH SCH ×2 (11:06→18:43)
[2019-09-10] MEDS: UMECLIDINIUM BROMIDE (INCRUSE ELLIPTA) 7'S IH SCH (11:06)
--- NOTE | 2019-09-10 11:11 | Physical Therapy Daily Note ---
PT Daily Note-Current Subjective Patient agreeable to therapy at this time. Appearance Patient in recliner with bedside table and call light within reach. Patient family present. Mental Status Patient Orientation: Person, Place, Time, Situation Attachments: Oxygen (2L), Bertrand Catheter Transfers SCALE: Activities may be completed with or without assistive devices. 4-Bgddvvmiok-cjmbikb completes the activity by him/herself with no assistance from a helper. 5-Set-up or Clean-up Assistance-helper sets up or cleans up; patient completes activity. [place] assists only prior to or following the activity. 4-Supervision or Touching Assistance-helper provides verbal cues and/or touching/steadying and/or contact guard assistance as patient completes activity. Assistance may be provided throughout the activity or intermittently. 3-Partial/Moderate Assistance-helper does LESS THAN HALF the effort. [place] lifts, holds or supports trunk or limbs, but provides less than half the effort. 2-Substantial/Maximal Assistance-helper does MORE THAN HALF the effort. [place] lifts or holds trunk or limbs and provides more than half the effort. 2-Hxwesfovy-mimbad does ALL the effort. Patient does none of the effort to complete the activity. Or, the assistance of 2 or more helpers is required for the patient to complete the activity. If activity was not attempted, code reason: 7-Patient Refused. 9-Not Applicable-not attempted and the patient did not perform the activity before the current illness, exacerbation or injury. 10-Not Attempted due to Environmental Limitations-(lack of equipment, weather restraints, etc.). 88-Not Attempted due to Medical Conditions or Safety Concerns. Roll Left & Right (QC): 6 Lying to Sitting/Side of Bed(Q: 6 Sit to Stand (QC): 4 Chair/Hwt-qw-Naiqx Xfer(QC): 4 CGA for safety during transfers. Gait Training Does the Patient Walk?: Yes Distance: 150' Walk 10 feet (QC): 4 Walk 50 ft with 2 Turns(QC): 4 Walk 150 ft (QC): 4 Gait Persons Needed: 1 Gait Assistive Device: FWW CGA for safety. Wheelchair Training Does the Pt Use a Wheelchair?: No Treatments Ambulation. Transfers. Assessment Patient was stable during ambulation. Patient complained of knee pain during ambulation but it was gone when sitting down. PT Scheduler Conveyor Goals Chcf Goals PT Scheduler Conveyor Goals Time Frame: Sep 15, 2019 Roll Left & Right (QC): 6 Sit to Lying (QC): 6 Lying-Sitting on Side/Bed(QC): 6 Sit to Stand (QC): 6 Chair/Qav-gm-Dsxvk Xfer(QC): 6 Toilet Transfer (QC): 6 Walk 10 feet (QC): 6 Walk 50ft with 2 Turns (QC): 6 Walk 150 ft (QC): 6 PT Plan Problem List Problem List: Activity Tolerance, Functional Strength, Safety, Balance, Gait, Transfer, Bed Mobility, ROM Treatment/Plan Treatment Plan: Continue Plan of Care Treatment Plan: Education, Functional Activity Cait, Functional Strength, Gait, Safety, Therapeutic Exercise, Transfers Treatment Duration: Sep 15, 2019 Frequency: 6 times per week Estimated Hrs Per Day: .25 hour per day Patient and/or Family Agrees t: Yes Safety Risks/Education Patient Education: Gait Training, Transfer Techniques Teaching Recipient: Patient Teaching Methods: Discussion Response to Teaching: Reinforcement Needed Time/GCodes Time In: 1032 Time Out: 1050 Total Billed Treatment Time: 18 Total Billed Treatment 1 visit FA 18 ROMAN KELLEY PT Sep 10, 2019 11:10
--- NOTE | 2019-09-10 11:45 | Pulmonary Progress Note ---
Subjective Time Seen by a Provider: 11:45 Sepsis Event Evaluation Height, Weight, BMI Height: 5'9.00" Weight: 253lbs. 1.0oz. 114.728415sj; 39.00 BMI Method:Stated Exam Exam Vital Signs Date Time Temp Pulse Resp B/P (MAP) Pulse Ox O2 Delivery O2 Flow Rate FiO2 09/10/19 11:28 36.1 86 90 09/10/19 11:06 90 Nasal Cannula 3.00 09/10/19 09:43 93 Nasal Cannula 3.00 09/10/19 08:00 Nasal Cannula 3.00 09/10/19 08:00 36.1 84 20 136/63 (87) 90 Nasal Cannula 3.00 09/10/19 07:00 87 09/10/19 04:00 36.5 83 20 110/67 (81) 93 Nasal Cannula 3.00 09/10/19 02:29 95 Nasal Cannula 3.00 09/10/19 01:00 89 09/10/19 00:00 36.5 86 21 101/61 (74) 91 Nasal Cannula 3.00 09/10/19 00:00 36.5 86 21 101/1 (34) 91 Nasal Cannula 3.00 09/09/19 23:20 95 Nasal Cannula 3.00 09/09/19 23:11 95 Nasal Cannula 3.00 09/09/19 22:00 Nasal Cannula 3.00 09/09/19 20:41 36.5 91 20 123/70 (87) 92 Nasal Cannula 3.00 09/09/19 19:39 94 Nasal Cannula 3.00 09/09/19 19:37 94 Nasal Cannula 3.00 09/09/19 19:00 87 09/09/19 16:16 36.8 88 20 120/62 (81) 93 Nasal Cannula 3.00 09/09/19 14:56 36.8 88 20 120/62 (81) 93 Nasal Cannula 3.00 09/09/19 14:02 93 Nasal Cannula 3.00 09/09/19 12:00 93 Nasal Cannula 3.00 09/09/19 12:00 91 138/86 (103) 93 Nasal Cannula 3.00 09/09/19 11:58 35.8 I & O 09/10/19 07:00 Intake Total 3100 ml Output Total 6525 ml Balance -3425 ml Height & Weight Height: 5'9.00" Weight: 253lbs. 1.0oz. 114.946546uy; 39.00 BMI Method:Stated General Appearance: No Apparent Distress, WD/WN HEENT: PERRL/EOMI, TMs Normal, Normal ENT Inspection, Pharynx Normal Neck: Tender Lateral Respiratory: No Accessory Muscle Use, No Respiratory Distress, Decreased Breath Sounds Cardiovascular: Regular Rate, Rhythm, No Edema, No Gallop, No Murmur Capillary Refill: Less Than 3 Seconds Extremity: Normal Capillary Refill, Normal Inspection, Non Tender, No Calf Te nderness Neurologic/Psychiatric: Alert Skin: Normal Color, Warm/Dry Results Lab Laboratory Tests 09/09/19 04:40 09/10/19 05:10 Assessment/Plan Assessment/Plan Acute on chronic respiratory failure Morbid obesity Influenza B -Tamiflu -Pt did not have her influenza vaccination this year COPDAE -Pt does have oxygen at home -Continue Solumedrol -Duonebs Q4 -Add mucinex Atelectasis -Add IS -Increase activity Current smoker -Education CHFAE -Lasix Hyponatremia -Monitor STEFANIE STARKS DO Sep 10, 2019 11:45
[2019-09-10] MEDS: MEROPENEM 500 MG/SWFI 10 ML IV PUSH IV SCH ×4 (13:21→20:10)
--- NOTE | 2019-09-10 13:21 | Cardiology Progress Note ---
Cardiology SOAP Progress Note Subjective: No cardiac symptoms. Significantly improved Objective: I&O/Vital Signs 09/10/19 09/10/19 09/10/19 09/10/19 02:29 04:00 07:00 08:00 Temp 36.5 36.1 Pulse 83 87 84 Resp 20 20 B/P (MAP) 110/67 (81) 136/63 (87) Pulse Ox 95 93 90 O2 Delivery Nasal Cannula Nasal Cannula Nasal Cannula O2 Flow Rate 3.00 3.00 3.00 09/10/19 09/10/19 09/10/19 09/10/19 08:00 09:43 11:06 11:28 Temp 36.1 Pulse 86 Pulse Ox 93 90 90 O2 Delivery Nasal Cannula Nasal Cannula Nasal Cannula O2 Flow Rate 3.00 3.00 3.00 09/10/19 12:00 Temp 35.9 Pulse 93 Resp 18 B/P (MAP) 129/59 (82) Pulse Ox 90 O2 Delivery Nasal Cannula O2 Flow Rate 3.00 09/10/19 00:00 Intake Total 1760 ml Output Total 2700 ml Balance -940 ml Weight (Pounds): 253 Weight (Ounces): 1.0 Weight (Calculated Kilograms): 114.215891 Constitutional: appears stated age, AAO x 3, well-developed, well-nourished Respiratory: chest is bilaterally symmetric, other (course breath sounds bilaterally.) Cardiovascular: regular rate-rhythm, tachycardia, S1 and S2 Gastrointestional: soft, distended, audible bowel sounds; No spleenomegaly Extremities: normal range of motion, non-tender, normal inspection, pedal edema; No clubbing, No cyanosis, No significant edema Neurologic/Psychiatric: no motor/sensory deficits, alert, normal mood/affect, oriented x 3, power is 5/5 both on sides Skin: normal color, warm/dry; No rash, No ulcerations Results/Procedures: Labs Laboratory Tests 09/10/19 05:10: White Blood Count 17.7H, Red Blood Count 4.30L, Hemoglobin 12.1, Hematocrit 38, Mean Corpuscular Volume 87, Mean Corpuscular Hemoglobin 28, Mean Corpuscular Hemoglobin Concent 32, Red Cell Distribution Width 15.5H, Platelet Count 234, Mean Platelet Volume 12.1H, Neutrophils (%) (Auto) 89H, Lymphocytes (%) (Auto) 6L, Monocytes (%) (Auto) 5, Eosinophils (%) (Auto) 0, Basophils (%) (Auto) 0, Neutrophils # (Auto) 15.8H, Lymphocytes # (Auto) 1.0, Monocytes # (Auto) 0.9, Eosinophils # (Auto) 0.0, Basophils # (Auto) 0.0, Sodium Level 134L, Potassium Level 4.4, Chloride Level 95L, Carbon Dioxide Level 25, Anion Gap 14, Blood Urea Nitrogen 38H, Creatinine 1.00, Estimat Glomerular Filtration Rate 57, BUN/Creatinine Ratio 38, Glucose Level 297H, Calcium Level 9.1, Phosphorus Level 3.4, Magnesium Level 2.2 Microbiology 09/07/19 Influenza Types A,B Antigen (RENO) - Final, Complete 09/07/19 Urine Culture - Final, Complete Escherichia coli Klebsiella pneumoniae 09/07/19 Blood Culture - Preliminary, Resulted No growth A/P: Assessment/Dx: Acute respiratory failure, Acute influenza, Acute congestive heart failure, Paroxysmal atrial fibrillation, Diabetes, Morbid obesity, Hyponatremia, Hypertension, Hyperlipidemia Plan: Acute respiratory failure, likely multifactorial. Acute influenza, pneumonia, acute congestive heart failure. Resolved. Defer to the primary team. Acute influenza, for to the primary team. Acute congestive heart failure, elevated BNP. However due to sepsis I would avoid Lasix for now. Echocardiogram done recently showed normal LV function with no significant valvular heart disease. Paroxysmal atrial fibrillation, on Eliquis. Currently sinus tachycardia. Diabetes, continue outpatient medical therapy. Defer to the primary team. Morbid obesity, Hyponatremia, could be secondary to congestive heart failure. Hypertension, continue outpatient medical therapy. Hyperlipidemia, continue statin therapy. Thank you for your consultation. Please call me if you have any questions. Cliff Hamm MD, FACP, FACC, FSCAI, FHRS, CCDS Interventional Cardiology Cardiac Electrophysiology Vascular Medicine and Endovascular Interventions Alan HAMM MD Sep 10, 2019 13:21
--- NOTE | 2019-09-10 14:05 | Occupational Ther Daily Note ---
OT Current Status-Daily Note Subjective Pt sleeping in bed, woke to name. Pt agreed to discuss home environment and AE for lower body dressing, but did not want to get OOB due to R knee hurting and anxious she would fall. Mental Status/Objective Patient Orientation: Person, Place, Time, Situation ADL-Treatment Therapy Code Descriptions/Definitions Functional [place]man Measure: 0=Not Assessed/NA 4=Minimal Assistance 1=Total Assistance 5=Supervision or Setup 2=Maximal Assistance 6=Modified Bowman 3=Moderate Assistance 7=Complete IndependenceSCALE: Activities may be completed with or without assistive devices. 2-Ejmptxztrm-xhujcnq completes the activity by him/herself with no assistance from a helper. 5-Set-up or Clean-up Assistance-helper sets up or cleans up; patient completes activity. [place] assists only prior to or following the activity. 4-Supervision or Touching Assistance-helper provides verbal cues and/or touching/steadying and/or contact guard assistance as patient completes activity. Assistance may be provided throughout the activity or intermittently. 3-Partial/Moderate Assistance-helper does LESS THAN HALF the effort. [place] lifts, holds or supports trunk or limbs, but provides less than half the effort. 2-Substantial/Maximal Assistance-helper does MORE THAN HALF the effort. [place] lifts or holds trunk or limbs and provides more than half the effort. 2-Vnkjaluaq-ghohlz does ALL the effort. Patient does none of the effort to comp lete the activity. Or, the assistance of 2 or more helpers is required for the patient to complete the activity. If activity was not attempted, code reason: 7-Patient Refused. 9-Not Applicable-not attempted and the patient did not perform the activity before the current illness, exacerbation or injury. 10-Not Attempted due to Environmental Limitations-(lack of equipment, weather restraints, etc.). 88-Not Attempted due to Medical Conditions or Safety Concerns. Other Treatment Pt stated that she has nrsg come in every Saturday. Pt cried and appears upset that 3 out of 4 of her boys don't call and check on her. Pt stated that she has difficulty with donning footwear. [place] described AE for donning socks, will bring to OT session tomorrow. After therapy, pt lying in bed with call light/phone in reach. All needs met in room. OT [facility] Goals Grade Recorder Goals Time Frame: Sep 16, 2019 Eating (QC): 6 Oral Hygiene (QC): 6 Toileting Hygiene (QC): 6 Shower/Bathe Self (QC): 5 Upper Body Dressing (QC): 6 Lower Body Dressing (QC): 6 On/Off Footwear (QC): 6 Additional Goals: 1-Demonstrate ADL Tasks, 2-Verbalize Understanding, 3- ImproveStrength/Cait 1=Demonstrate adherence to instructed precautions during ADL tasks. 2=Patient will verbalize/demonstrate understanding of assistive devices/modifications for ADL. 3=Patient will improve strength/tolerance for activity to enable patient to perform ADL's. OT Education/Plan Problem List/Assessment Assessment: Decreased Activ Tolerance, Decreased UE Strength, Impaired Self- Care Skills Discharge Recommendations Plan/Recommendations: Continue POC Treatment Plan/Plan of Care Patient would benefit from OT for education, treatment and training to promote independence in ADL's, mobility, safety and/or upper extremity function for ADL's. Plan of Care: ADL Retraining, Functional Mobility, UE Funct Exercise/Act Treatment Duration: Sep 16, 2019 Frequency: 5 times per week Estimated Hrs Per Day: .25 hour per day Agreement: Yes Rehab Potential: Fair Time/GCodes Start Time: 13:30 Stop Time: 13:42 Total Time Billed (hr/min): 12 Billed Treatment Time 1 visit-FA 1 (12 min) TRACY TROY Sep 10, 2019 14:04
--- NOTE | 2019-09-10 14:38 | NUR ---
PATIENT WAS 94% ON 4 L/M PATIENT PLACED ON ROOM AIR FOR 60 MIN OXYGEN SAT 87% PLACED BACK ON OXYGEN SAT CAME UP TO 91 % RECOMMEND 3-6 LM FOR THIS PATIENT Addendum: 09/10/19 at 1439 by CAROL WOLFF RT Amended: Links added.
--- NOTE | 2019-09-10 15:13 | NUR ---
CM/SS: Visited with pt as to plan for discharge Plan: Pt to be discharged to home with [facility] resumed Summary: Pt is tearful today as she reports her children have not visited since her hospital stay. She is encouraged to focus getting better and getting back home. Pt reports still not having [place] Medicaid for in home services. Pt reports she has [facility] and would like to resume that when she leaves hospital. 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
--- NOTE | 2019-09-10 16:11 | NUR ---
Pastoral care visit.
[2019-09-10] MEDS: HYDROcodone/APAP 5 MG/325 MG (LORTAB) TAB PO PRN (17:20)
[2019-09-10] MEDS: AMITRIPTYLINE 50 MG (ELAVIL) TAB PO SCH (21:49)
[2019-09-11] VITALS: BP 137/67
[2019-09-11] MEDS: methylPREDNISolone 125 MG (Solu-MEDROL) VIAL IVP SCH ×2 (00:44→06:29)
[2019-09-11] MEDS: RT-ALBUTEROL/IPRATROPIUM 3 ML (DUONEB) VIAL INH SCH ×4 (01:52→11:10)
[2019-09-11] MEDS: MEROPENEM 500 MG/SWFI 10 ML IV PUSH IV SCH ×4 (02:05→08:29)
[2019-09-11 04:53] LABS: BASOPHILS % (AUTO) 0 % (0-10); EOSINOPHILS % (AUTO) 0 % (0-10); HEMATOCRIT 40 % (35-52); HEMOGLOBIN 12.6 G/DL (11.5-16.0); LYMPHOCYTES # (AUTO) 1.3 X 10^3 (1.0-4.0); LYMPHOCYTES % (AUTO) 9 % (12-44); MEAN CORPUSCULAR HEMOGLOBIN 27 PG (25-34); MEAN CORPUSCULAR HGB CONC 32 G/DL (32-36); MEAN CORPUSCULAR VOLUME 86 FL (80-99); MONOCYTES # (AUTO) 1.2 X 10^3 (0.0-1.0); MONOCYTES % (AUTO) 8 % (0-12); NEUTROPHILS # (AUTO) 12.5 X 10^3 (1.8-7.8); NEUTROPHILS % (AUTO) 83 % (42-75); PLATELET COUNT 244 10^3/uL (130-400); RED CELL DISTRIBUTION WIDTH 15.7 % (10.0-14.5); WHITE BLOOD COUNT 14.9 10^3/uL (4.3-11.0)
[2019-09-11 05:20] LABS: BUN/CREATININE RATIO 40; CALCIUM 9.3 MG/DL (8.5-10.1); CARBON DIOXIDE 30 MMOL/L (21-32); CHLORIDE 93 MMOL/L (98-107); CREATININE SERUM 0.89 MG/DL (0.60-1.30); GFR ESTIMATED > 60; GLUCOSE 280 MG/DL (70-105); MAGNESIUM 2.3 MG/DL (1.6-2.4); PHOSPHORUS 3.4 MG/DL (2.3-4.7); POTASSIUM 4.8 MMOL/L (3.6-5.0); SODIUM 134 MMOL/L (135-145)
--- NOTE | 2019-09-11 06:20 | Pulmonary Progress Note ---
Subjective Time Seen by a Provider: 06:15 Subjective/Events-last exam No complications noted. Sepsis Event Evaluation Height, Weight, BMI Height: 5'9.00" Weight: 253lbs. 1.0oz. 114.044742ko; 39.00 BMI Method:Stated Exam Exam Vital Signs Date Time Temp Pulse Resp B/P (MAP) Pulse Ox O2 Delivery O2 Flow Rate FiO2 09/11/19 01:52 94 Nasal Cannula 3.00 09/11/19 00:00 36.3 85 18 137/67 (90) 94 Nasal Cannula 3.00 09/10/19 22:18 94 Nasal Cannula 3.00 09/10/19 20:20 Nasal Cannula 3.00 09/10/19 19:41 36.5 85 24 112/64 (80) 93 Nasal Cannula 3.00 09/10/19 18:39 94 Nasal Cannula 3.00 09/10/19 18:39 94 Nasal Cannula 3.00 09/10/19 15:21 36.3 90 24 136/73 (94) 95 Nasal Cannula 3.00 09/10/19 14:35 4 94.00 09/10/19 12:00 35.9 93 18 129/59 (82) 90 Nasal Cannula 3.00 09/10/19 11:28 36.1 86 90 09/10/19 11:06 90 Nasal Cannula 3.00 09/10/19 09:43 93 Nasal Cannula 3.00 09/10/19 08:00 Nasal Cannula 3.00 09/10/19 08:00 36.1 84 20 136/63 (87) 90 Nasal Cannula 3.00 09/10/19 07:00 87 I & O 09/11/19 07:00 Intake Total 2790 ml Output Total 5650 ml Balance -2860 ml Height & Weight Height: 5'9.00" Weight: 253lbs. 1.0oz. 114.604838to; 39.00 BMI Method:Stated General Appearance: No Apparent Distress, WD/WN, Chronically ill HEENT: PERRL/EOMI, TMs Normal, Normal ENT Inspection, Pharynx Normal Neck: Tender Lateral Respiratory: Lungs Clear, Normal Breath Sounds Cardiovascular: Regular Rate, Rhythm Capillary Refill: Less Than 3 Seconds Extremity: Normal Capillary Refill, Normal Inspection, Non Tender, No Calf Tenderness Neurologic/Psychiatric: Alert, Oriented x3, No Motor/Sensory Deficits, Normal Mood/Affect Skin: Normal Color, Warm/Dry Results Lab Laboratory Tests 09/10/19 05:10 09/11/19 04:00 Assessment/Plan Assessment/Plan Acute on chronic respiratory failure -Repeat CXR Morbid obesity Influenza B -Tamiflu -Pt did not have her influenza vaccination this year COP[place]E -Pt does have oxygen at home - Solumedrol -- d/c -Duonebs Q4 -Add mucinex Atelectasis -Add IS -Increase activity Current smoker -Education CHFAE -Lasix --Check BNP Hyponatremia -Monitor UTI -Merrem PT is ok for discharge from pulmonary standpoint if repeat CXR appears stable. STEFANIE STARKS DO Sep 11, 2019 06:20
[2019-09-11] MEDS: TROSPIUM 20 MG (SANCTURA) TAB PO SCH (06:29)
[2019-09-11] MEDS: HYDROcodone/APAP 5 MG/325 MG (LORTAB) TAB PO PRN (06:29)
[2019-09-11] MEDS: FUROSEMIDE 40 MG/4 ML INJ (LASIX) IVP SCH (06:29)
[2019-09-11] MEDS: inSUlin ASPART (NovoLOG) 1 UNIT/0.01 ML (CHARGE PER UNIT) SC SCH ×4 (06:30→12:20)
[2019-09-11 08:00] VITALS: BP 151/68
[2019-09-11] MEDS: CATHETER FLUSH 10 ML SYR IV SCH (08:10)
[2019-09-11] MEDS: POTASSIUM CL 10MEQ/50ML IVPB 50 ML IV SCH (08:11)
[2019-09-11] MEDS: DULoxetine 30 MG (CYMBALTA) CAP PO SCH (08:29)
[2019-09-11] MEDS: APIXABAN 5 MG (ELIQUIS) TABLET PO SCH (08:30)
[2019-09-11] MEDS: CYCLOBENZAPRINE 10 MG (FLEXERIL) TAB PO SCH (08:30)
[2019-09-11] MEDS: LINAGLIPTIN (TRADJENTA) 5 MG TABLET PO SCH (08:30)
[2019-09-11] MEDS: SENNA W/DOCUSATE (SENOKOT S) TABLET PO SCH (08:30)
[2019-09-11] MEDS: MELOXICAM 7.5 MG (MOBIC) TABLET PO SCH (08:30)
[2019-09-11] MEDS: PANTOPRAZOLE 40 MG (PROTONIX) TAB PO SCH (08:30)
[2019-09-11] MEDS: LOSARTAN 25 MG (COZAAR) TAB PO SCH (08:30)
[2019-09-11] MEDS: OSELTAMIVIR 75 MG (TAMIFLU) CAPSULE PO SCH (08:30)
[2019-09-11] MEDS: KCL 20 MEQ TAB (K-DUR) PO SCH (08:31)
[2019-09-11] MEDS: MAGIC MOUTHWASH (ADULT) PO SCH ×4 (08:31)
[2019-09-11] MEDS: guaiFENesin (MUCINEX) 600 MG TAB PO SCH (09:34)
[2019-09-11] MEDS: PREGABALIN 150 MG (LYRICA) CAPSULE PO SCH (09:34)
--- NOTE | 2019-09-11 10:31 | Cardiology Progress Note ---
Cardiology SOAP Progress Note Subjective: No cardiac complaints. Improving shortness of breath. Objective: I&O/Vital Signs 09/11/19 09/11/19 09/11/19 09/11/19 00:00 01:52 08:00 08:00 Temp 36.3 35.7 Pulse 85 85 Resp 18 20 B/P (MAP) 137/67 (90) 151/68 (95) Pulse Ox 94 94 94 94 O2 Delivery Nasal Cannula Nasal Cannula High Flow N/C Nasal Cannula O2 Flow Rate 3.00 3.00 3.00 3.00 09/11/19 00:00 Intake Total 2390 ml Output Total 3450 ml Balance -1060 ml Weight (Pounds): 253 Weight (Ounces): 1.0 Weight (Calculated Kilograms): 114.108464 Constitutional: appears stated age, AAO x 3, well-developed, well-nourished Respiratory: chest is bilaterally symmetric, other (course breath sounds bilaterally.) Cardiovascular: regular rate-rhythm, tachycardia, S1 and S2 Gastrointestional: soft, distended, audible bowel sounds; No spleenomegaly Extremities: normal range of motion, non-tender, normal inspection, pedal edema; No clubbing, No cyanosis, No significant edema Neurologic/Psychiatric: no motor/sensory deficits, alert, normal mood/affect, oriented x 3, power is 5/5 both on sides Skin: normal color, warm/dry; No rash, No ulcerations Results/Procedures: Labs Laboratory Tests 09/11/19 04:00: White Blood Count 14.9H, Red Blood Count 4.60, Hemoglobin 12.6, Hematocrit 40, Mean Corpuscular Volume 86, Mean Corpuscular Hemoglobin 27, Mean Corpuscular Hemoglobin Concent 32, Red Cell Distribution Width 15.7H, Platelet Count 244, Mean Platelet Volume 12.0H, Neutrophils (%) (Auto) 83H, Lymphocytes (%) (Auto) 9L, Monocytes (%) (Auto) 8, Eosinophils (%) (Auto) 0, Basophils (%) (Auto) 0, Neutrophils # (Auto) 12.5H, Lymphocytes # (Auto) 1.3, Monocytes # (Auto) 1.2H, Eosinophils # (Auto) 0.0, Basophils # (Auto) 0.0, Sodium Level 134L, Potassium Level 4.8, Chloride Level 93L, Carbon Dioxide Level 30, Anion Gap 11, Blood Urea Nitrogen 36H, Creatinine 0.89, Estimat Glomerular Filtration Rate > 60, BUN/Creatinine Ratio 40, Glucose Level 280H, Calcium Level 9.3, Phosphorus Level 3.4, Magnesium Level 2.3, B-Type Natriuretic Peptide 15.3 Microbiology 09/07/19 Influenza Types A,B Antigen (RENO) - Final, Complete 09/07/19 Urine Culture - Final, Complete Escherichia coli Klebsiella pneumoniae 09/07/19 Blood Culture - Preliminary, Resulted No growth A/P: Assessment/Dx: Acute respiratory failure, Acute influenza, Acute congestive heart failure, Paroxysmal atrial fibrillation, Diabetes, Morbid obesity, Hyponatremia, Hypertension, Hyperlipidemia Plan: Acute respiratory failure, likely multifactorial. Acute influenza, pneumonia, acute congestive heart failure. Resolved. Defer to the primary team. Acute influenza, for to the primary team. Acute congestive heart failure, elevated BNP. However due to sepsis I would avoid Lasix for now. Echocardiogram done recently showed normal LV function with no significant valvular heart disease. Paroxysmal atrial fibrillation, on Eliquis. Currently sinus tachycardia. Diabetes, continue outpatient medical therapy. Defer to the primary team. Morbid obesity, Hyponatremia, could be secondary to congestive heart failure. Hypertension, continue outpatient medical therapy. Hyperlipidemia, continue statin therapy. Thank you for your consultation. Please call me if you have any questions. Cliff Hamm MD, FACP, FACC, FSCAI, FHRS, CCDS Interventional Cardiology Cardiac Electrophysiology Vascular Medicine and Endovascular Interventions Alan HAMM MD Sep 11, 2019 10:31
[2019-09-11] MEDS: UMECLIDINIUM BROMIDE (INCRUSE ELLIPTA) 7'S IH SCH ×2 (11:06→11:10)
[2019-09-11] MEDS: ADVAIR HFA 115/21 MCG INHALER 8 GM IH SCH ×2 (11:06→11:09)
[2019-09-11] MEDS: RT-BUDESONIDE NEBS 0.5 MG/2ML (PULMICORT) AMP INH SCH (11:09)
[2019-09-11] MEDS ORDERED: FLUT12AE4 IH (11:16)
[2019-09-11] MEDS ORDERED: NITR-68 PO (11:16)
[2019-09-11] MEDS ORDERED: SENN-20 PO (11:16)
--- NOTE | 2019-09-11 11:18 | D/C HH Face to Face Order ---
D/C Face to Face Orders Reconcile Patient Problems Problems Reviewed?: Yes Instructions for Patient Home Health Patient Instructions/FollowUp: [facility] on 09/15/19 at 10 a.m. Physician to follow Patient: [facility] Discharge Diet for Home: ADA Diet Patient Problems: COPD Diabetes mellitus Influenza B status post treatment Goals for Patient: [place] Patient Data-Allergies,Ht & Wt Patient Allergies: Coded Allergies: sulfamethoxazole (Verified Allergy, Severe, JOINTS HURT, 12/21/18) trimethoprim (Verified Allergy, Severe, JOINTS HURT, 12/21/18) influenza virus vaccine, specific (Unverified Allergy, Intermediate, rash, 09/23/18) aspirin (Unverified Allergy, Unknown, convulsions, 09/23/18) metformin (Verified Adverse Reaction, Intermediate, joint pain, 09/23/18) hydromorphone HCl (Unverified Adverse Reaction, Mild, VOMITING, 01/06/11) Height (Feet): 5 Height (Inches): 9.00 Weight (Pounds): 253 Weight (Ounces): 1.0 Home Health Need/Face to Face Date of Face to Face: Sep 11, 2019 Clinical Findings: Generalized weakness and fatigue, Shortness of breath, Unsteady gait I have seen Pt [id number]: Yes Discharged To: Home Diagnosis/Conditions: COPD Diabetes mellitus Influenza B status post treatment Patient is Homebound due to: Dariel fall risk due to instabilty, Shortness of breath/distress Homebound Status Due to the above stated illness, injury or surgical procedure (medical condition or diagnosis) and associated clinical findings, the patient is homebound because of his/her inability to leave home except with aid of a supportive device and/or person AND leaving the home requires a considerable and taxing effort or is medically contraindicated. Pt req the following assistanc: [facility] Nursing Orders Home Health Services Order: Nursing Services, Product Development Assistant-Evaluate & Treat, Physical Therapy-Evaluate & Treat Home Health Infusion Therapy Line Start Date: Sep 07, 2019 Certify Stmt I certify that this patient is under my care and that I, a nurse practitioner or a physician; a kindergarten teacher assistant working with me, had a face to face encounter that - meets the physician face to face encounter requirements with this patient as dated. DARRELL URBINA DO Sep 11, 2019 11:18
--- NOTE | 2019-09-11 11:19 | Discharge Summary ---
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 UTI was ESBL, Macrobid was placed at discharge to complete treatment after Meropenem initiated. Senna was sent in for bowel dysfunction but overall she did very well with recovering from influenza B, with supportive care, IV steroids and Nebulizer treatments. Pt was deemed stable for discharge but poor prognosis due to noncompliance noted. Labs and Pending Lab Test: Laboratory Tests 09/11/19 04:00: White Blood Count 14.9H, Red Blood Count 4.60, Hemoglobin 12.6, Hematocrit 40, Mean Corpuscular Volume 86, Mean Corpuscular Hemoglobin 27, Mean Corpuscular Hemoglobin Concent 32, Red Cell Distribution Width 15.7H, Platelet Count 244, Mean Platelet Volume 12.0H, Neutrophils (%) (Auto) 83H, Lymphocytes (%) (Auto) 9L, Monocytes (%) (Auto) 8, Eosinophils (%) (Auto) 0, Basophils (%) (Auto) 0, Neutrophils # (Auto) 12.5H, Lymphocytes # (Auto) 1.3, Monocytes # (Auto) 1.2H, Eosinophils # (Auto) 0.0, Basophils # (Auto) 0.0, Sodium Level 134L, Potassium Level 4.8, Chloride Level 93L, Carbon Dioxide Level 30, Anion Gap 11, Blood Urea Nitrogen 36H, Creatinine 0.89, Estimat Glomerular Filtration Rate > 60, BUN/Creatinine Ratio 40, Glucose Level 280H, Calcium Level 9.3, Phosphorus Level 3.4, Magnesium Level 2.3, B-Type Natriuretic Peptide 15.3 Microbiology 09/07/19 Influenza Types A,B Antigen (RENO) - Final, Complete 09/07/19 Urine Culture - Final, Complete Escherichia coli Klebsiella pneumoniae 09/07/19 Blood Culture - Preliminary, Resulted No growth Home Meds Active Macrodantin (Nitrofurantoin Macrocrystal) 100 Mg Capsule 100 Mg PO BID Senna-Time S Tablet (Sennosides/Docusate Sodium) 1 Each Tablet 1 Each PO BID Advair Hfa 115-21 Mcg Inhaler (Fluticasone/Salmeterol) 12 Gm Hfa.aer.ad 0 Puff IH BID@20 Reported Omeprazole 40 Mg Capsule.dr 40 Mg PO DAILY Trulicity (Dulaglutide) 0.75 Mg/0.5 Ml Pen.injctr 0.75 Mg SC TU Melatonin 10 Mg Tablet 10 Mg PO HS PRN Glucagon Emergency Kit (Glucagon,Human Recombinant) 1 Mg/Kit Soln SC UD PRN Meloxicam 15 Mg Tablet 15 Mg PO DAILY Solifenacin Succinate 5 Mg Tablet 5 Mg PO DAILY Potassium Chloride 20 Meq Tab.er.prt 20 Meq PO DAILY Sumatriptan Succinate 50 Mg Tablet 50 Mg PO UD PRN TAKE 1 TAB AT ONSET OF MIGRAINE, IF SYMPTOMS PERSIST AFTER 2 HOURS TAKE AN ADDITIONAL TABLET Duloxetine HCl 60 Mg Capsule.dr 60 Mg PO DAILY Losartan Potassium 25 Mg Tablet 25 Mg PO DAILY Spiriva Respimat 2.5MCG/ACTUATION (Tiotropium Energy) 4 Gm Mist.inhal 2 Puff INH DAILY Fluticasone Propionate 16 Gm Justice.susp 2 Sprays NS DAILY PRN Lyrica (Pregabalin) 150 Mg Capsule 150 Mg PO TID Januvia (Sitagliptin Phosphate) 100 Mg Tablet 100 Mg PO DAILY Farxiga (Dapagliflozin Propanediol) 10 Mg Tablet 10 Mg PO DAILY Proair Hfa (Albuterol Sulfate) 1 Puff Puff 2 Puff IH QID PRN Hydroxyzine HCl 50 Mg Tablet 50 Mg PO BID PRN Cyclobenzaprine HCl 10 Mg Tablet 10 Mg PO TID Furosemide 40 Mg Tablet 40 Mg PO BID Fish Oil 1,000 mg Capsule ([place] 3 Polyunsat Fatty Acids) 1,000 Mg Cap 1,000 Mg PO HS Novolog Flexpen (Insulin Aspart) 300 Units/3 Ml Solution 50 Units SQ TIDAC Levemir Flextouch (Insulin Detemir) 100 Unit/1 Ml Insuln.pen 80 Unit SQ BID LAST FILLED #48 06-22-19 Eliquis (Apixaban) 5 Mg Tablet 5 Mg PO BID Rosuvastatin Calcium 40 Mg Tablet 40 Mg PO DAILY Amitriptyline HCl 50 Mg Tablet 50 Mg PO HS Assessment/Pt Instructions [facility] 1 week Discharge Planning: <30 minutes discharge planning Discharge Instructions Discharge Diet: ADA Diet Pneumonia Vaccine Order Indica: Yes Discharge Physical Examination Vital Signs Vital Signs Date Time Temp Pulse Resp B/P (MAP) Pulse Ox O2 Delivery O2 Flow Rate FiO2 09/11/19 08:00 94 Nasal Cannula 3.00 09/11/19 08:00 35.7 85 20 151/68 (95) 09/07/19 17:23 36 General Appearance: No Apparent Distress, WD/WN, Chronically ill Respiratory: Lungs Clear, Normal Breath Sounds Cardiovascular: Regular Rate, Rhythm Neurologic/Psychiatric: Alert, Oriented x3, No Motor/Sensory Deficits, Normal Mood/Affect Allergies: Coded Allergies: sulfamethoxazole (Verified Allergy, Severe, JOINTS HURT, 12/21/18) trimethoprim (Verified Allergy, Severe, JOINTS HURT, 12/21/18) influenza virus vaccine, specific (Unverified Allergy, Intermediate, rash, 09/23/18) aspirin (Unverified Allergy, Unknown, convulsions, 09/23/18) metformin (Verified Adverse Reaction, Intermediate, joint pain, 09/23/18) hydromorphone HCl (Unverified Adverse Reaction, Mild, VOMITING, 01/06/11) Discharge Summary Date of Admission Sep 07, 2019 at 13:50 Date of Discharge Discharge Date: Sep 11, 2019 Admission Diagnosis Assessment: Influenza B PNA AECHF AECOPD HTN OAC Smoker DM Plan: Tamiflu Abx IV Lasix Monitor oxygen Discharge Diagnosis Assessment Acute problems Influenza B UTI ESBL adding Meropenem today 09/10/19 Acute Respiratory Failure CHF Exacerbation Elevated BNP CXR findings of edema, HF or pneumonia Respiratory Acidosis - resolved Hyponatremia - resolved Asessment Chronic Problems COPD Asthma PAF - she is currently in Sinus Tach Hx of pancreatitis GERD s/p EGD/Colonoscopy 1 month ago Anxiety Depression Morbid Obesity HTN Poor social support Plan Continue Abx Move to 4th floor for medical management PT/OT MRSA screen Home meds for depression and anxiety Respiratory and cardiology are following DVT Prophylaxis Diabetes diet smoking cessation Social work consult (1) Influenza B Status: Acute (2) ESBL (extended spectrum beta-lactamase) producing bacteria infection (3) CHF (congestive heart failure) Status: Acute Qualifiers: Qualified Codes: I50.9 - Heart failure, unspecified (4) 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
--- NOTE | 2019-09-11 11:26 | Occupational Ther Daily Note ---
OT Current Status-Daily Note Subjective Pt alert, lying in bed. Pt agrees to therapy. Stated she thinks she is going to leave today. No c/o pain at this time. Mental Status/Objective Patient Orientation: Person, Place, Time, Situation Attachments: Bertrand Catheter, IV, Oxygen ADL-Treatment Therapy Code Descriptions/Definitions Functional [place] Measure: 0=Not Assessed/NA 4=Minimal Assistance 1=Total Assistance 5=Supervision or Setup 2=Maximal Assistance 6=Modified [place] 3=Moderate Assistance 7=Complete IndependenceSCALE: Activities may be completed with or without assistive devices. 0-Reagsuyxpf-jofdfpv completes the activity by him/herself with no assistance from a helper. 5-Set-up or Clean-up Assistance-helper sets up or cleans up; patient completes activity. [place] assists only prior to or following the activity. 4-Supervision or Touching Assistance-helper provides verbal cues and/or touching/steadying and/or contact guard assistance as patient completes activity. Assistance may be provided throughout the activity or intermittently. 3-Partial/Moderate Assistance-helper does LESS THAN HALF the effort. [place] lifts, holds or supports trunk or limbs, but provides less than half the effort. 2-Substantial/Maximal Assistance-helper does MORE THAN HALF the effort. [place] lifts or holds trunk or limbs and provides more than half the effort. 0-Dwsmxlxrw-fzbjba does ALL the effort. Patient does none of the effort to com plete the activity. Or, the assistance of 2 or more helpers is required for the patient to complete the activity. If activity was not attempted, code reason: 7-Patient Refused. 9-Not Applicable-not attempted and the patient did not perform the activity before the current illness, exacerbation or injury. 10-Not Attempted due to Environmental Limitations-(lack of equipment, weather restraints, etc.). 88-Not Attempted due to Medical Conditions or Safety Concerns. Other Treatment Pt educated on sock aide and UE light resistance theraband exercises. Pt demonstrated understanding of using sock aide to don socks independently. Pt demonstrated understanding of UE theraband exercises after skilled instruction on technique. HEP and light weight theraband given with instructions for use. After therapy, pt sitting EOB with call light/phone in reach. Reported to nrsg, pt's sitting position. All needs met in room. Education OT Patient Education: Home exercise program, Use of adapted equipment Teaching Recipient: Patient Teaching Methods: Demonstration, Handout, Discussion Response to Teaching: Verbalize Understanding, Return Demonstration OT Jail Goals Pawn Shop Keeper Goals Time Frame: Sep 16, 2019 Eating (QC): 6 Oral Hygiene (QC): 6 Toileting Hygiene (QC): 6 Shower/Bathe Self (QC): 5 Upper Body Dressing (QC): 6 Lower Body Dressing (QC): 6 On/Off Footwear (QC): 6 Additional Goals: 1-Demonstrate ADL Tasks, 2-Verbalize Understanding, 3- ImproveStrength/Cait 1=Demonstrate adherence to instructed precautions during ADL tasks. 2=Patient will verbalize/demonstrate understanding of assistive devices/modifications for ADL. 3=Patient will improve strength/tolerance for activity to enable patient to perform ADL's. OT Education/Plan Problem List/Assessment Assessment: Decreased Activ Tolerance, Decreased UE Strength, Impaired Self- Care Skills Discharge Recommendations Plan/Recommendations: Continue POC Treatment Plan/Plan of Care Patient would benefit from OT for education, treatment and training to promote independence in ADL's, mobility, safety and/or upper extremity function for ADL's. Plan of Care: ADL Retraining, Functional Mobility, UE Funct Exercise/Act Treatment Duration: Sep 16, 2019 Frequency: 5 times per week Estimated Hrs Per Day: .25 hour per day Agreement: Yes Rehab Potential: Fair Time/GCodes Start Time: 09:29 Stop Time: 09:54 Total Time Billed (hr/min): 15 Billed Treatment Time 1 visit-FA 1 (15 min) TRACY TROY Sep 11, 2019 11:26
[2019-09-11 12:00] VITALS: BP 151/68
--- NOTE | 2019-09-11 12:30 | NUR ---
Patient did not want to wait for home medical services to deliver portable oxygen. Patient educated on risks of leaving without oxygen and educated on doctor's reccomendations along with respiratory therapy reccomendations on oxygen needs. Patient verbalized understanding but does not want to wait and is ready to leave. suction worker also talked to patient on this issue.
--- NOTE | 2019-09-11 12:32 | NUR ---
CM/SS: Visited with pt as to plan for discharge - - pt is ready to discharge to home and does not want to wait on oxygen to be delivered. Pt is advised on the risk in leaving based on the order to wear her oxygen. Family is instructed as well. Pt is adamant that she wants to go. KATHRYN Brooks went over discharge plan with pt so that pt could leave. Plan: Pt will discharge and Home Care with [facility] resumed Information is faxed to [facility] Care Information is faxed to [facility] in regard to the change in oxygen order.
--- NOTE | 2019-09-11 14:02 | NUR ---
RD ASSESSMENT PMHx: COPD; GERD; CHF; DM; HTN; hypercholesterolemia; pancreatitis PT INTERACTION: Pt was awake and pleasant during nutrition assessment for LOS. Pt states current appetite is pretty good and has been for some time. Note avg PO intake of 100% x3d, per chart review. Pt states trying to follow a low-CHO diet at home, and has no issues with chewing/swallowing food. Pt states no recent issues with n/v/c/d at this time. Note last BM was 09/07 and pt currently on bowel regimen of senna BID, per chart review. Pt states no recent wt changes. Note 3# wt gain x1mon, per chart review. Pt states current DM management as "trying to have good control." ABNORMAL NUTRITION-RELATED LAB VALUES LOW: Na 134; Cl 93 HIGH: BUN 36; glu 280 Est. kcal needs: 8122-2084 kcal | 15-18 kcal/kg Est. Pro needs: 98-122 g Pro | 0.8-1.0 g Pro/kg PES STATEMENT: Given pt's PO intake, no nutrition diagnosis at this time (NO-1.1) INTERVENTION: Continue with current diet order of 2000mg Sodium diet. Will continue to follow and reassess as pt needs and status change. MONITOR/EVALUATE: PO Intake; Plan of Care; Hydration Status; Weight Status; Lab Values Blaine Diaz, , RD, LD
--- NOTE | 2019-09-14 04:00 | Physician Query Clarification ---
PQ-Conflicting Diagnosis Admission/Discharge Admission Date: Sep 07, 2019 at 13:50 Discharge Date: Sep 11, 2019 at 12:35 The medical record reflects the following clinical scenario: History/Risk Factors: Influenza B, UTI, Pneumonia, Sepsis Clinical Findings:WBC 10.0, Lactic acid 1.41, Temp 36.5, Pulse 93, BP 115/67 Treatment: Inj. Meropenem 500mg, Piperacillin Sod/Tazobactam Sod 4.5gm Question: Do you agree with the impression of the Sepsis per Dr. Hamm Please document a response in Progress Note or Discharge Summary. 1. Yes, clinically valid, present on admission 2. No clinically valid, NOT present on admission 3. No, Sepsis ruled out 4. Other, with explanation of clinical findings 5. Clinically undetermined, no explanation for clinical findings. PHYSICIAN RESPONSE Do you agree w/Consulting Dx?: Yes Please remember a lack of response to the above will prompt a phone page by CDI/Coding staff. In responding to this query, please exercise your independent professional judgment. The purpose of this communication is to more accurately reflect the complexity of your patients condition. The fact that a question is asked does not imply that any particular answer is desired or expected. Thank you for your timely response to this clarification. Requestors name: [ Thania] Phone # [[phone] ] THIS PHYSICIAN QUERY FORM IS A PERMANENT PART OF THE MEDICAL RECORD THANIA MILLER Sep 14, 2019 04:00 PRANAV ISSA Sep 30, 2019 07:17 DARRELL URBINA DO Sep 30, 2019 08:46
== END 2019-09-11 12:35 | disposition home health service (06) | DRG 871 ==
LOC: EDUNIT# 11:29 → ER FS 11:30 → ICU 13:50 → 4TH 09-09 14:56
PROVIDERS: ADMIT Internal Medicine; ATTEND Internal Medicine
DX: A41.9 Sepsis, unspecified organism (principal); I11.0 Hypertensive heart disease with heart failure; J10.00 Influenza due to other identified influenza virus with unspecified type of pneumonia; J96.21 Acute and chronic respiratory failure with hypoxia; N39.0 Urinary tract infection, site not specified; E87.1 Hypo-osmolality and hyponatremia; J98.11 Atelectasis; E87.2 Acidosis; Z16.12 Extended spectrum beta lactamase (ESBL) resistance; I50.9 Heart failure, unspecified; J43.9 Emphysema, unspecified; I42.9 Cardiomyopathy, unspecified; E11.40 Type 2 diabetes mellitus with diabetic neuropathy, unspecified; K21.9 Gastro-esophageal reflux disease without esophagitis; E78.00 Pure hypercholesterolemia, unspecified; M19.90 Unspecified osteoarthritis, unspecified site; F32.9 Major depressive disorder, single episode, unspecified; F41.9 Anxiety disorder, unspecified; E66.01 Morbid (severe) obesity due to excess calories; I48.0 Paroxysmal atrial fibrillation; F17.210 Nicotine dependence, cigarettes, uncomplicated; Z68.39 Body mass index [BMI] 39.0-39.9, adult; Z99.81 Dependence on supplemental oxygen; Z91.19 Patient's noncompliance with other medical treatment and regimen; Z79.01 Long term (current) use of anticoagulants; Z79.4 Long term (current) use of insulin; B96.20 Unspecified Escherichia coli [E. coli] as the cause of diseases classified elsewhere; J10.1 Influenza due to other identified influenza virus with other respiratory manifestations
CPT/HCPCS: 36415; 36600; 71045; 80048; 80053; 81000; 82805; 82962; 83605; 83735; 83880; 84100; 84484; 85007; 85025; 85027; 87040; 87077; 87081; 87088; 87184; 87186; 87804; 93306; 94640; 94760; 94761; 96365; 96375

== ENCOUNTER 2019-10-12 10:11 | Inpatient (IN) | payer MEDICARE, MEDICAID ==
[~2019-10-12] VITALS: Ht 175.3 cm; Wt 116.4 kg
[~2019-10-12 10:11] MED LIST changes: +ACHD5005 PO; +FLUT12AE4 IH; -HYDR-3812 PO; -MECL-106 PO; +MECL-149 PO; +NITR-68 PO; +SENN-20 PO
--- NOTE | 2019-10-12 10:25 | ED Dyspnea ---
General Stated Complaint: SOB Source of Information: Patient, EMS Exam Limitations: No Limitations History of Present Illness Date Seen by Provider: Oct 12, 2019 Time Seen by Provider: 10:20 Initial Comments Patient presents via EMS with complaint of weakness and shortness of air. She called 911 for a lift assist, as she was unable to get off her couch for the last 3 days. On arrival, EMS and home health were at her house at the same time the patient was sitting on the couch in her own urine. She uses 3 L of oxygen and is still smoking. Denies chest pain or abdominal pain. Denies fever or chills. Denies swelling of extremities. Allergies and Home Medications Allergies Coded Allergies: sulfamethoxazole (Verified Allergy, Severe, JOINTS HURT, 12/21/18) trimethoprim (Verified Allergy, Severe, JOINTS HURT, 12/21/18) influenza virus vaccine, specific (Unverified Allergy, Intermediate, rash, 09/23/18) aspirin (Unverified Allergy, Unknown, convulsions, 09/23/18) metformin (Verified Adverse Reaction, Intermediate, joint pain, 09/23/18) hydromorphone HCl (Unverified Adverse Reaction, Mild, VOMITING, 01/06/11) Home Medications Albuterol Sulfate 1 Puff Puff, 2 PUFF IH QID PRN for SHORTNESS OF BREATH, (Reported) Amitriptyline HCl 50 Mg Tablet, 50 MG PO HS, (Reported) Apixaban 5 Mg Tablet, 5 MG PO BID, (Reported) Cyclobenzaprine HCl 10 Mg Tablet, 10 MG PO TID, (Reported) Dapagliflozin Propanediol 10 Mg Tablet, 10 MG PO DAILY, (Reported) Dulaglutide 0.75 Mg/0.5 Ml Pen.injctr, 0.75 MG SC Tu, (Reported) Duloxetine HCl 60 Mg Capsule.dr, 60 MG PO DAILY, (Reported) Fluticasone Propionate 16 Gm [place].susp, 2 SPRAYS NS DAILY PRN for CONGESTION, (Reported) Fluticasone/Salmeterol 12 Gm Hfa.aer.ad, 0 PUFF IH BID@,20 Prescribed by: DARRELL URBINA on 09/11/19 1116 Furosemide 40 Mg Tablet, 40 MG PO BID, (Reported) Glucagon,Human Recombinant 1 Mg/Kit Soln, SC UD PRN for HYPOGLYCEMIA, (Reported) Hydroxyzine HCl 50 Mg Tablet, 50 MG PO BID PRN for ANXIETY, (Reported) Insulin Aspart 300 Units/3 Ml Solution, 50 UNITS SQ TIDAC, (Reported) Insulin Detemir 100 Unit/1 Ml Insuln.pen, 80 UNIT SQ BID, (Reported) LAST FILLED #[id number] 06-22-19 Losartan Potassium 25 Mg Tablet, 25 MG PO DAILY, (Reported) Melatonin 10 Mg Tablet, 10 MG PO HS PRN for SLEEP, (Reported) Meloxicam 15 Mg Tablet, 15 MG PO DAILY, (Reported) Nitrofurantoin Macrocrystal 100 Mg Capsule, 100 MG PO BID Prescribed by: DARRELL URBINA on 09/11/19 1116 [place] 3 Polyunsat Fatty Acids 1,000 Mg Cap, 1,000 MG PO HS, (Reported) Omeprazole 40 Mg Capsule.dr, 40 MG PO DAILY, (Reported) Potassium Chloride 20 Meq Tab.er.prt, 20 MEQ PO DAILY, (Reported) Pregabalin 150 Mg Capsule, 150 MG PO TID, (Reported) Rosuvastatin Calcium 40 Mg Tablet, 40 MG PO DAILY, (Reported) Sennosides/Docusate Sodium 1 Each Tablet, 1 EACH PO BID Prescribed by: DARRELL URBINA on 09/11/19 111 Sitagliptin Phosphate 100 Mg Tablet, 100 MG PO DAILY, (Reported) Solifenacin Succinate 5 Mg Tablet, 5 MG PO DAILY, (Reported) Sumatriptan Succinate 50 Mg Tablet, 50 MG PO UD PRN for MIGRAINE, (Reported) TAKE 1 TAB AT ONSET OF MIGRAINE, IF SYMPTOMS PERSIST AFTER 2 HOURS TAKE AN ADDITIONAL TABLET Tiotropium [place] 4 Gm Mist.inhal, 2 PUFF INH DAILY, (Reported) Patient Home Medication List Home Medication List Reviewed: Yes Review of Systems Review of Systems Constitutional: see HPI; No fever; malaise, weakness EENTM: no symptoms reported Respiratory: cough, phlegm, short of breath; No wheezing Cardiovascular: see HPI; No chest pain, No palpitations, No syncope Gastrointestinal: No abdominal pain, No diarrhea, No loss of appetite, No nausea, No vomiting Musculoskeletal: No back pain, No joint pain Skin: No change in color, No change in hair/nails; lesions (R lower abdomen, sore (lesion)) Psychiatric/Neurological: Depressed; Denies Headache, Denies Numbness, Denies Paresthesia Past [id number]-Rbeaaa Hx Patient Social History Type Used: Cigarettes 2nd Hand Smoke Exposure: No Recent Foreign Travel: Yes Recent Hopitalizations: No Immunizations Up To Date Tetanus Booster (TDap): Unknown PED Vaccines UTD: No Date of Pneumonia Vaccine: May 12, 2012 Seasonal Allergies Seasonal Allergies: No Past Medical History Surgeries: Yes Appendectomy, Gallbladder, Hysterectomy Respiratory: Yes COPD Currently Using CPAP: No Currently Using BIPAP: No Cardiac: Yes Cardiomyopathy, Chronic Edema/Swelling, High Cholesterol, Hypertension Neurological: Yes Neuropathy Reproductive Disorders: No (partial hysterectomy of R side. ) Female Reproductive Disorders: Denies Sexually Transmitted Disease: No HIV/AIDS: No Genitourinary: Yes Kidney Infection, UTI-Chronic Gastrointestinal: Yes Gastroesophageal Reflux, Pancreatitis, Chronic Diarrhea Musculoskeletal: Yes Arthritis Endocrine: Yes Diabetes, Insulin dep HEENT: Yes Tinnitis Loss of Vision: Bilateral Hearing Impairment: Denies Cancer: No Psychosocial: Yes Anxiety, Depression Integumentary: No Blood Disorders: No Adverse Reaction/Blood Tranf: No Family Medical History Alcoholism G8 BROTHER Alzheimer's disease 19 MOTHER Arthritis 19 FATHER 19 MOTHER G8 BROTHER G8 BROTHER G8 BROTHER G8 BROTHER G8 BROTHER G8 SISTER G8 SISTER G8 SISTER G8 SISTER G8 SISTER G8 SISTER Asthma 19 FATHER 19 MOTHER G8 SISTER G8 SISTER Cancer of mouth Cardiovascular disease 19 FATHER 19 MOTHER G8 BROTHER G8 BROTHER G8 SISTER G8 SISTER Completed stroke 19 FATHER G8 SISTER G8 SISTER Dementia G8 BROTHER Diabetes mellitus 19 FATHER 19 MOTHER G8 BROTHER G8 BROTHER G8 BROTHER G8 BROTHER G8 BROTHER G8 SISTER G8 SISTER G8 SISTER G8 SISTER G8 SISTER G8 SISTER Glaucoma 19 MOTHER G8 SISTER G8 SISTER Hypercholesterolemia 19 FATHER 19 MOTHER Hypertension 19 FATHER 19 MOTHER G8 BROTHER G8 BROTHER G8 BROTHER G8 BROTHER G8 BROTHER G8 SISTER G8 SISTER G8 SISTER G8 SISTER G8 SISTER G8 SISTER Myocardial infarction 19 FATHER 19 MOTHER G8 BROTHER G8 BROTHER G8 SISTER G8 SISTER G8 SISTER Osteoporosis G8 SISTER Seizure disorder G8 BROTHER No Family History of: AIDS Abdominal aortic aneurysm [place]'s disease Aphasia Cataracts Colon cancer Congenital disease Congenital heart disease Coronary thrombosis Cystic fibrosis Deafness or hearing loss Drug abuse Dysphasia Fibrocystic disease of breast Gastroenteritis Headache disorder Infertility Kidney disease Neoplasm Parkinson's disease Prostate cancer Psychosocial problem Severe allergy Thyroid disease Tuberculosis Visual disorder Cancer Physical Exam Vital Signs Vital Signs - First Documented 10/12/19 10:35 Temp 36.2 Pulse 112 Resp 33 B/P (MAP) 124/65 (84) Pulse Ox 95 O2 Flow Rate 3.00 Capillary Refill : Height, Weight, BMI Height: 5'9.00" Weight: 253lbs. 1.0oz. 114.068201pi; 39.00 BMI Method:Stated General Appearance: No Apparent Distress, Chronically ill HEENT: Normal ENT Inspection Neck: Normal Inspection, Non Tender, Supple Respiratory: No Accessory Muscle Use, No Respiratory Distress, Rhonci Cardiovascular: Regular Rate, Rhythm, No Edema, No Gallop, No JVD Gastrointestinal: Normal Bowel Sounds, Non Tender, Soft Extremity: Normal Capillary Refill, Normal Inspection, Non Tender, No Calf Tenderness Neurologic/Psychiatric: Alert, Oriented x3, No Motor/Sensory Deficits Skin: Normal Color, Warm/Dry, Other (vessicular lesion R Lower abdomen) Focused Exam Lactate Level 10/12/19 10:31: Lactic Acid Level 1.56 Lactic Acid Level Laboratory Tests Test 10/12/19 10:31 Lactic Acid Level 1.56 MMOL/L (0.50-2.00) Procedures/Interventions Suture Size: 4-0 Progress/Results/Core Measures Results/Orders Lab Results Laboratory Tests Test 10/12/19 10:15 10/12/19 10:31 Range/Units White Blood Count 24.8 H 4.3-11.0 10^3/uL Red Blood Count 4.68 4.35-5.85 10^6/uL Hemoglobin 13.1 11.5-16.0 G/DL Hematocrit 40 35-52 % Mean Corpuscular Volume 85 80-99 FL Mean Corpuscular Hemoglobin 28 25-34 PG Mean Corpuscular Hemoglobin Concent 33 32-36 G/DL Red Cell Distribution Width 15.5 H 10.0-14.5 % Platelet Count 348 130-400 10^3/uL Mean Platelet Volume 11.8 H 7.4-10.4 FL Neutrophils (%) (Auto) 79 H 42-75 % Lymphocytes (%) (Auto) 11 L 12-44 % Monocytes (%) (Auto) 8 0-12 % Eosinophils (%) (Auto) 0 0-10 % Basophils (%) (Auto) 1 0-10 % Neutrophils # (Auto) 19.6 H 1.8-7.8 X 10^3 Lymphocytes # (Auto) 2.7 1.0-4.0 X 10^3 Monocytes # (Auto) 1.9 H 0.0-1.0 X 10^3 Eosinophils # (Auto) 0.1 0.0-0.3 10^3/uL Basophils # (Auto) 0.1 0.0-0.1 10^3/uL Neutrophils % (Manual) 71 % Lymphocytes % (Manual) 11 % Monocytes % (Manual) 8 % Eosinophils % (Manual) 0 % Basophils % (Manual) 0 % Band Neutrophils 10 % Blood Morphology Comment NORMAL Sodium Level 128 L 135-145 MMOL/L Potassium Level 4.4 3.6-5.0 MMOL/L Chloride Level 85 L 98-107 MMOL/L Carbon Dioxide Level 17 L 21-32 MMOL/L Anion Gap 26 H 5-14 MMOL/L Blood Urea Nitrogen 17 7-18 MG/DL Creatinine 0.73 0.60-1.30 MG/DL Estimat Glomerular Filtration Rate > 60 BUN/Creatinine Ratio 23 Glucose Level 314 H 70-105 MG/DL Calcium Level 9.9 8.5-10.1 MG/DL Corrected Calcium 10.8 H 8.5-10.1 MG/DL Total Bilirubin 0.2 0.1-1.0 MG/DL Aspartate Amino Transf (AST/SGOT) 7 5-34 U/L Alanine Aminotransferase (ALT/SGPT) 8 0-55 U/L Alkaline Phosphatase 141 H 40-136 U/L Troponin I < 0.30 <0.30 NG/ML Total Protein 8.1 6.4-8.2 GM/DL Albumin 2.9 L 3.2-4.5 GM/DL Lactic Acid Level 1.56 0.50-2.00 MMOL/L My Orders Orders - ROVENSTINEFACUNDO DO Ed Iv/Invasive Line Start (10/12/19 10:18) Chest 1 View Ap/Pa Only (10/12/19 10:18) Ekg Tracing (10/12/19 10:18) Troponin I Fs (10/12/19 10:18) Cbc With Automated Diff (10/12/19 10:18) Comprehensive Metabolic Panel (10/12/19 10:18) Lactic Acid Analyzer (10/12/19 10:18) Ns Iv 1000 Ml (Sodium Chloride 0.9%) (10/12/19 10:30) Methylprednisolone Sod Succ (Solu-Medrol (10/12/19 10:30) Manual Differential (10/12/19 10:15) Blood Culture (10/12/19 10:47) Levofloxacin 750 Mg/150 Ml Iv (Levaquin (10/12/19 11:00) Hydrocodone/Apap 5/325 Tablet (Lortab 5 (10/12/19 11:15) Medications Given in ED Current Medications Medications Dose Ordered Sig/Jose Armando Route Start Time Stop Time Status Last Admin Dose Admin Acetaminophen/ Hydrocodone Bitart 1 tab ONCE ONCE PO 10/12/19 11:15 10/12/19 11:16 DC 10/12/19 11:26 1 TAB Levofloxacin/ Dextrose 150 ml @ 100 mls/hr ONCE ONCE IV 10/12/19 11:00 10/12/19 12:29 DC 10/12/19 11:26 100 MLS/HR Methylprednisolone Sodium Succinate 125 mg ONCE ONCE IVP 10/12/19 10:30 10/12/19 10:31 DC 10/12/19 10:27 125 MG Vital Signs/I&O 10/12/19 10:35 Temp 36.2 Pulse 112 Resp 33 B/P (MAP) 124/65 (84) Pulse Ox 95 O2 Flow Rate 3.00 Initial ECG Impression Date: Oct 12, 2019 Initial ECG Impression Time: 10:22 Initial ECG Rhythm: Normal Sinus Initial ECG Intervals: Normal Initial ECG Impression: Normal Departure Communication (Admissions) Time/Spoke to Admitting Phy: 11:[address] Melvi Daily @ [phone], discussed HPI as well as lab/ x-ray findings w Dx of b/l pneumonia. Accepts for full admit. Notified of weakness, not getting off her couch for 3 years and for concern of stage I pressure ulcer of buttocks developing. EMS reports that she was sitting in her own urine on the couch.....was surrounded by water bottles, to stay hydrated. Likely cause of HypoNa. Impression Primary Impression: Pneumonia Qualified Codes: J18.9 - Pneumonia, unspecified organism Additional Impressions: Weakness Hyponatremia Disposition: ADMITTED INPATIENT Condition: Stable Admissions Decision to Admit Reason: Admit from ER (General) Decision to Admit/Date: Oct 12, 2019 Time/Decision to Admit Time: 10:55 Departure-Patient Inst. Referrals: RAFA RAMOS MD (PCP) Primary Care Physician TOBY SMALLS APRN (Family) Primary Care Physician FACUNDO CHO DO Oct 12, 2019 10:24
[2019-10-12] MEDS: NS IV 1000 ML 1,000 ML IV SCH ×3 (10:27→21:17)
[2019-10-12 10:29] LABS: HEMATOCRIT 40 % (35-52); HEMOGLOBIN 13.1 G/DL (11.5-16.0); MEAN CORPUSCULAR HEMOGLOBIN 28 PG (25-34); MEAN CORPUSCULAR HGB CONC 33 G/DL (32-36); MEAN CORPUSCULAR VOLUME 85 FL (80-99); PLATELET COUNT 348 10^3/uL (130-400); RED CELL DISTRIBUTION WIDTH 15.5 % (10.0-14.5); WHITE BLOOD COUNT 24.8 10^3/uL (4.3-11.0)
[2019-10-12 10:30] LABS: BASOPHILS # (AUTO) 0.1 10^3/uL (0.0-0.1); BASOPHILS % (AUTO) 1 % (0-10); EOSINOPHILS # (AUTO) 0.1 10^3/uL (0.0-0.3); EOSINOPHILS % (AUTO) 0 % (0-10); LYMPHOCYTES # (AUTO) 2.7 X 10^3 (1.0-4.0); LYMPHOCYTES % (AUTO) 11 % (12-44); MEAN PLATELET VOLUME 11.8 FL (7.4-10.4); MONOCYTES # (AUTO) 1.9 X 10^3 (0.0-1.0); MONOCYTES % (AUTO) 8 % (0-12); NEUTROPHILS # (AUTO) 19.6 X 10^3 (1.8-7.8); NEUTROPHILS % (AUTO) 79 % (42-75)
[2019-10-12] MEDS ORDERED: methylPREDNISolone 125 MG (Solu-MEDROL) VIAL IVP ONE (10:30)
--- NOTE | 2019-10-12 10:43 | Diagnostic Imaging Report ---
Indication: Chest pain and cough Portable chest 10:34 AM There are patchy alveolar infiltrates in the perihilar regions of both lungs. There is no effusion or pneumothorax. IMPRESSION: Bilateral patchy alveolar infiltrates consistent with pneumonia. Dictated by: Dictated on workstation # [id number]
[2019-10-12 10:50] LABS: BUN/CREATININE RATIO 23; CALCIUM 9.9 MG/DL (8.5-10.1); CARBON DIOXIDE 17 MMOL/L (21-32); CHLORIDE 85 MMOL/L (98-107); CREATININE SERUM 0.73 MG/DL (0.60-1.30); GFR ESTIMATED > 60; GLUCOSE 314 MG/DL (70-105); POTASSIUM 4.4 MMOL/L (3.6-5.0); SODIUM 128 MMOL/L (135-145)
[2019-10-12 10:51] LABS: ALANINE AMINOTRANSFERASE 8 U/L (0-55); ALBUMIN 2.9 GM/DL (3.2-4.5); ALKALINE PHOSPHATASE 141 U/L (40-136); BILIRUBIN,TOTAL 0.2 MG/DL (0.1-1.0); TOTAL PROTEIN 8.1 GM/DL (6.4-8.2)
[2019-10-12] MEDS ORDERED: LEVOFLOXACIN 750 MG/150 ML IV 150 ML IV ONE (11:00)
--- NOTE | 2019-10-12 11:13 | NUR ---
Patient has open areas on bilateral gluteal folds. Perineal area and abdominal folds are excoriated and reddened.
[2019-10-12] MEDS ORDERED: HYDROcodone/APAP 5 MG/325 MG (LORTAB) TAB PO ONE (11:15)
[2019-10-12 11:27] LABS: BAND NEUTROPHILS 10 %; BASOPHILS % (MANUAL) 0 %; EOSINOPHILS % (MANUAL) 0 %; LYMPHOCYTES % (MANUAL) 11 %; MONOCYTES % (MANUAL) 8 %; NEUTROPHILS % (MANUAL) 71 %; RBC MORPH NORMAL
[2019-10-12] MEDS ORDERED: cefTRIAXone FOR IV USE 1,000 MG in WATER (STERILE) FOR INJECTION 10 ML IV SCH (12:00)
--- NOTE | 2019-10-12 12:09 | NUR ---
received report from Mariela PERALTA at [facility]
[2019-10-12 13:00] VITALS: BP 134/81
--- NOTE | 2019-10-12 13:00 | NUR ---
MARYANNE ROCK admitted to room 427-1, with an admitting diagnosis of pna, on 10/12/19 from ER via stretcher (ems) from [facility] , accompanied by ems staff .MARYANNE ROCK introduced to surroundings, call light, bed controls, phone, TV, temperature control, lights, meal times, smoking policy, visitor policy, side rail policy, bathrooms and showers. Patient Rights given to patient in the handbook. MARYANNE ROCK verbalizes understanding that [facility] is not responsible for the loss or damage to any personal effects or valuables that are kept in the patients posession during their hospitalization. The following Patient Care Plans and discharge were discussed with the patient. MARYANNE ROCK verbalizes understanding of Interdisciplinary Patient Education. Patient and family were informed about the Rapid Response Team and its purpose.
[2019-10-12] MEDS: inSUlin ASPART (NovoLOG) 1 UNIT/0.01 ML (CHARGE PER UNIT) SC SCH ×4 (13:30→21:48)
[2019-10-12 13:45] VITALS: BP 124/65
[2019-10-12] MEDS ORDERED: CATHETER FLUSH 10 ML SYR IV PRN (14:00)
--- NOTE | 2019-10-12 14:48 | Physical Therapy Evaluation ---
PT Evaluation-General Medical Diagnosis Admission Date Oct 12, 2019 at 11:16 Medical Diagnosis: B/L Pneumonia/ hyponatremia/ weakness Onset Date: Oct 12, 2019 Therapy Diagnosis Therapy Diagnosis: Debility Height/Weight Height (Feet): 5 Height (Inches): 9.00 Weight (Pounds): 253 Weight (Ounces): 1.0 Precautions Precautions/Isolations: Standard Precautions Weight Bear Status Right Lower Extremity: Right Weight Bearing/Tolerated Left Lower Extremity: Left Weight Bearing/Tolerated Referral Physician: Killian Reason for Referral: Evaluation/Treatment Medical History Pertinent Medical History: Arthritis, COPD, DM, GERD, HTN, Neuropathy, Smoking Additional Medical History Pancreatitis. Current History Patient presented to ER with SOA and weakness via EMS. Patient was found on couch where she said she hadn't been able to get up from in 3 days. Reviewed History: Yes Social History Home: Single Level Current Living Status: Alone Entry Into Home: Stairs With Railing PT Steps Into Home: 2 Prior Prior Level of Function SCALE: Activities may be completed with or without assistive devices. 5-Gvqrfhnlbz-fhusqrn completes the activity by him/herself with no assistance from a helper. 5-Set-up or Clean-up Assistance-helper sets up or cleans up; patient completes activity. [place] assists only prior to or following the activity. 4-Supervision or Touching Assistance-helper provides verbal cues and/or touching/steadying and/or contact guard assistance as patient completes activity. Assistance may be provided throughout the activity or intermittently. 3-Partial/Moderate Assistance-helper does LESS THAN HALF the effort. [place] lifts, holds or supports trunk or limbs, but provides less than half the effort. 2-Substantial/Maximal Assistance-helper does MORE THAN HALF the effort. [place] lifts or holds trunk or limbs and provides more than half the effort. 8-Butuzbxri-mxhkke does ALL the effort. Patient does none of the effort to comp lete the activity. Or, the assistance of 2 or more helpers is required for the patient to complete the activity. If activity was not attempted, code reason: 7-Patient Refused. 9-Not Applicable-not attempted and the patient did not perform the activity before the current illness, exacerbation or injury. 10-Not Attempted due to Environmental Limitations-(lack of equipment, weather restraints, etc.). 88-Not Attempted due to Medical Conditions or Safety Concerns. Bed Mobility: 6 Transfers (B,C,W/C): 6 Gait: 6 Stairs: 6 Prior Devices Use: None Patient states she was getting around on her own previously and was able to get in and out of bed on her own using no assistive device. PT Evaluation-Current Subjective Patient agreeable to therapy. Pain Numeric Pain Scale: 10-Worst Possible Pain Location Body Site: Sacrum Objective Patient Orientation: Person, Place ROM/Strength ROM Lower Extremities WNL BLE Strength Lower Extremities 3 / 5 gross BLE Integumentary/Posture Integumentary See nursing notes. Neuromuscular (Tone, Coordination, Reflexes) Appears grossly intact Sensory Vision: Functional Hearing: Functional Sensation Right Lower Extremit: Impaired Sensation Left Lower Extremity: Impaired Transfers Sit to Lying (QC): 6 Lying to Sitting/Side of Bed(Q: 6 Sit to Stand (QC): 3 Gait Does the Patient Walk?: Yes Mode of Locomotion: Walk Anticipated Mode of Locomotion: Walk Distance: 5' Gait Assistive Device: FWW Comments/Gait Description Patient side stepped to the HOB. Patient CGA for safety. Wheelchair Training Does the Pt Use a Wheelchair?: No Balance Sitting Static: Good Sitting Dynamic: Good Standing Static: Fair Standing Dynamic: Fair Assessment/Needs Patient does not tolerate sitting position well due to pain. In standing patient started to get lightheaded so sat down and laid back down. Patient positioned in bed side-lying for pressure relief. Rehab Potential: Fair PT Embossograph Operator Goals Fdc Goals PT Fdc Goals Time Frame: Oct 19, 2019 Roll Left & Right (QC): 6 Sit to Lying (QC): 6 Lying-Sitting on Side/Bed(QC): 6 Sit to Stand (QC): 6 Chair/Wto-ll-Moaof Xfer(QC): 6 Does the Patient Walk: Yes Walk 10 feet (QC): 6 Walk 50ft with 2 Turns (QC): 6 Walk 150 ft (QC): 6 PT Plan Problem List Problem List: Activity Tolerance, Functional Strength, Safety, Balance, Gait, Transfer, Bed Mobility, ROM Treatment/Plan Treatment Plan: Continue Plan of Care Treatment Plan: Bed Mobility, Education, Functional Activity Cait, Functional Strength, Gait, Safety, Therapeutic Exercise, Transfers Treatment Duration: Oct 19, 2019 Frequency: 5 times per week Estimated Hrs Per Day: .25 hour per day Patient and/or Family Agrees t: Yes Time/GCodes Time In: 1345 Time Out: 1401 Total Billed Treatment Time: 16 Total Billed Treatment 1 visit EVM 16 ROMAN KELLEY PT Oct 12, 2019 14:48
[2019-10-12] MEDS ORDERED: VANCOMYCIN INJECTION 2,000 MG in NS IV 500 ML 500 ML IV ONE (14:50)
[2019-10-12] MEDS: NYSTATIN OINTMENT 30 GM TUBE TOP SCH (14:58)
[2019-10-12] MEDS ORDERED: PHARMACY TO DOSE IV SCH (15:00)
[2019-10-12] MEDS ORDERED: RT-ALBUTEROL/IPRATROPIUM 3 ML (DUONEB) VIAL INH PRN (15:00)
[2019-10-12] MEDS ORDERED: RT-ALBUTEROL/IPRATROPIUM 3 ML (DUONEB) VIAL IH SCH (15:00)
[2019-10-12] MEDS ORDERED: PIPERACILLIN/TAZOBACTAM (BULK) 4.5 GM in NS (IVPB) 100 ML IV NR (15:15)
[2019-10-12] MEDS ORDERED: OXYB-52 PO (15:19)
[2019-10-12] MEDS ORDERED: AMIT75TA2 PO (15:19)
[2019-10-12] MEDS ORDERED: UMEC62.5 IN (15:24)
--- NOTE | 2019-10-12 15:26 | NUR ---
SPOKE WITH THE PT, WENT THRU EXT MED HISTORY AND CALLED LILA AND BENY TO COMPLETE THE MED REC. PT WAS UNSURE OF HER MEDICATIONS- SHE WAS RECENTLY HERE AND WAS INTERVIEWED BY [facility] ON 09-07-2019 AND ON 07-15-2019. I WENT THRU THOSE NOTES AND COMPLIED WITH NEW MEDS ON THE EXT MED HISTORY TO COMPLETE THE MED REC. I DID REMOVE DULOXETINE 60MG THIS HAS NOT BEEN FILLED SINCE JULY 2019 FOR A 30 DAY SUPPLY. OTC MEDS: MELATONIN FISH OIL ANY OTHER QUESTIONS REFER TO THE PAST STAY NOTES- THEY WERE VERY HELPFUL
[2019-10-12] MEDS ORDERED: VANCOMYCIN INJECTION 2,250 MG in NS IV 500 ML 500 ML IV NR (15:30)
--- NOTE | 2019-10-12 15:50 | History & Physical ---
HPI History of Present Illness: 54 yo female called EMS because she had been feeling sick for about a week- cough with green sputum, intermittent chest pain, weakness and fatigue, to the point that she could not get off her couch. She was worried she was getting the flu again, states she had been out of the hospital a couple of weeks from flu/pneumonia when this started. Source: patient Date seen by provider: Oct 12, 2019 Time Seen by Provider: 13:50 Attending Physician Deandre Daily MD PCP Tj Solorio MD Consult Date of Admission Oct 12, 2019 at 11:16 Home Medications Home Medications Reviewed patient Home Medication Reconciliation performed by pharmacy medication reconciliations mobile service rv technician and/or nursing. Patients Allergies have been reviewed. Allergies Coded Allergies: sulfamethoxazole (Verified Allergy, Severe, JOINTS HURT, 12/21/18) trimethoprim (Verified Allergy, Severe, JOINTS HURT, 12/21/18) influenza virus vaccine, specific (Unverified Allergy, Intermediate, rash, 09/23/18) aspirin (Unverified Allergy, Unknown, convulsions, 09/23/18) metformin (Verified Adverse Reaction, Intermediate, joint pain, 09/23/18) hydromorphone HCl (Unverified Adverse Reaction, Mild, VOMITING, 01/06/11) SRK-Bsatkm-Njzuil Hx Patient Social History Alcohol Use: Denies Use Recreational Drug Use: No Smoking Status: Current Everyday Smoker Type Used: Cigarettes 2nd Hand Smoke Exposure: Yes Recent Foreign Travel: No Contact w/other who traveled: No Recent Hopitalizations: No Recent Infectious Disease Expo: No Physical Abuse Screen: No Sexual Abuse: No Immunizations Up To Date Tetanus Booster (TDap): Unknown Date of Pneumonia Vaccine: May 12, 2012 Past Medical History IDDM with Neuropathy HTN Supplemental oxygen dependent COPD HLD SurgHx: Appendectomy Cholecystectomy Family Medical History Significant Family History: Cancer Review of Systems ([facility]C) Constitutional: malaise, weakness EENTM: epistaxis Respiratory: cough, short of breath Cardiovascular: chest pain (intermittent, none currently) Gastrointestinal: No constipation, No diarrhea; nausea; No vomiting Genitourinary: no symptoms reported Skin: other (sores on buttocks) Reviewed Test Results Reviewed Test Results Lab Laboratory Tests Test 10/12/19 10:15 10/12/19 10:31 10/12/19 13:15 Range/Units White Blood Count 24.8 H 4.3-11.0 10^3/uL Red Blood Count 4.68 4.35-5.85 10^6/uL Hemoglobin 13.1 11.5-16.0 G/DL Hematocrit 40 35-52 % Mean Corpuscular Volume 85 80-99 FL Mean Corpuscular Hemoglobin 28 25-34 PG Mean Corpuscular Hemoglobin Concent 33 32-36 G/DL Red Cell Distribution Width 15.5 H 10.0-14.5 % Platelet Count 348 130-400 10^3/uL Mean Platelet Volume 11.8 H 7.4-10.4 FL Neutrophils (%) (Auto) 79 H 42-75 % Lymphocytes (%) (Auto) 11 L 12-44 % Monocytes (%) (Auto) 8 0-12 % Eosinophils (%) (Auto) 0 0-10 % Basophils (%) (Auto) 1 0-10 % Neutrophils # (Auto) 19.6 H 1.8-7.8 X 10^3 Lymphocytes # (Auto) 2.7 1.0-4.0 X 10^3 Monocytes # (Auto) 1.9 H 0.0-1.0 X 10^3 Eosinophils # (Auto) 0.1 0.0-0.3 10^3/uL Basophils # (Auto) 0.1 0.0-0.1 10^3/uL Neutrophils % (Manual) 71 % Lymphocytes % (Manual) 11 % Monocytes % (Manual) 8 % Eosinophils % (Manual) 0 % Basophils % (Manual) 0 % Band Neutrophils 10 % Blood Morphology Comment NORMAL Sodium Level 128 L 135-145 MMOL/L Potassium Level 4.4 3.6-5.0 MMOL/L Chloride Level 85 L 98-107 MMOL/L Carbon Dioxide Level 17 L 21-32 MMOL/L Anion Gap 26 H 5-14 MMOL/L Blood Urea Nitrogen 17 7-18 MG/DL Creatinine 0.73 0.60-1.30 MG/DL Estimat Glomerular Filtration Rate > 60 BUN/Creatinine Ratio 23 Glucose Level 314 H 70-105 MG/DL Calcium Level 9.9 8.5-10.1 MG/DL Corrected Calcium 10.8 H 8.5-10.1 MG/DL Total Bilirubin 0.2 0.1-1.0 MG/DL Aspartate Amino Transf (AST/SGOT) 7 5-34 U/L Alanine Aminotransferase (ALT/SGPT) 8 0-55 U/L Alkaline Phosphatase 141 H 40-136 U/L Troponin I < 0.30 <0.30 NG/ML Total Protein 8.1 6.4-8.2 GM/DL Albumin 2.9 L 3.2-4.5 GM/DL Lactic Acid Level 1.56 0.50-2.00 MMOL/L Glucometer 320 H 70-110 MG/DL Radiology CXR 10/11: IMPRESSION: Bilateral patchy alveolar infiltrates consistent with pneumonia. Physical Exam-([facility]) Physical Exam Vital Signs VS - Last 72 Hours, by Label 10/12/19 10/12/19 10/12/19 10/12/19 10:35 11:57 13:00 13:45 Temp 36.2 36.4 36.9 36.2 Pulse 112 108 112 112 Resp 33 30 20 B/P (MAP) 124/65 (84) 114/74 134/81 Pulse Ox 95 96 95 95 O2 Delivery Nasal Cannula O2 Flow Rate 3.00 2.00 FiO2 32 10/12/19 10/12/19 14:39 14:58 Pulse Ox 92 O2 Delivery Nasal Cannula Nasal Cannula O2 Flow Rate 2.00 2.00 Capillary Refill : Less Than 3 Seconds General Appearance: other (moaning with any movement) Respiratory: rhonchi Cardiovascular: no murmur, tachycardia Gastrointestinal: normal bowel sounds, non tender, soft Extremities: no pedal edema Neurologic/Psychiatric: alert Skin: other (erythem of both buttocks with satellite erythematous papules and ulceration of right buttock near gluteal cleft) Assessment/Plan Assessment/Plan Admission Status: Inpatient Order (span 2 midnights) Reason for Inpatient Admission: Sepsis with multiple underlying comorbidities at high risk for decompensation (1) Pneumonia Status: Acute Assessment & Plan: Will treat for healthcare associated with Zosyn and Vancomycin given recent hospitalizations here. Check influenza. Had Flu B at the end of Aug. Qualifiers: Qualified Codes: J18.9 - Pneumonia, unspecified organism (2) Hyponatremia Status: Acute Assessment & Plan: Hypovolemic vs excess free water intake due to markedly decreased mobility but with report of many empty water bottles surrounding. NS@125, monitor closely. (3) Sepsis Status: Acute Assessment & Plan: Secondary to pneumonia. Lactic acid normal, no end organ failure or hypotension. (4) Weakness Status: Acute Assessment & Plan: PT eval (5) COPD (chronic obstructive pulmonary disease) Status: Chronic Assessment & Plan: Unclear if exacerbation superimposed on pneumonia, on baseline supplemental oxygen and has no wheezing. RT, duonebs, solumedrol. (6) Insulin dependent diabetes mellitus Status: Chronic Assessment & Plan: Home insulin, diabetic diet, sliding scale insulin. (7) Essential (primary) hypertension Status: Chronic (8) Stage 1 decubitus ulcer in diabetic patient Status: Acute Assessment & Plan: Apparently developed in last week with marked debility and limited mobility. With satellite lesions will treat with antifungal as well as barrier and frequent position changes. (9) DVT prophylaxis Status: Acute Assessment & Plan: Resume home [facility] Clinical Quality Measures DVT/VTE Risk/Contraindication: Risk Factor Score Per Nursin RFS Level Per Nursing on Admit: 4+=Very High DEANDRE DAILY MD Oct 12, 2019 15:50
[2019-10-12 16:00] VITALS: BP 117/68
[2019-10-12] MEDS ORDERED: NON-FORMULARY MEDICATION 1 EA EA (Hydroxyzine HCl 50 MG) PO PRN (16:15)
[2019-10-12] MEDS ORDERED: hydrOXYzine (VISTARIL/ATARAX) 25 MG capsule/tablet PO PRN (16:30)
[2019-10-12] MEDS ORDERED: methylPREDNISolone 125 MG (Solu-MEDROL) VIAL IV SCH (18:00)
[2019-10-12] MEDS: RT-ALBUTEROL/IPRATROPIUM 3 ML (DUONEB) VIAL IH SCH ×2 (18:36→21:39)
--- NOTE | 2019-10-12 18:45 | NUR ---
twin sister brought to this nurse attention that patient was suicidal, this nurse went in room visit with sister and the patient did suicidal intervention - patient admitted to be suicidal and refused to sign no harm contract - poleyard supervisor notified - orders for one on one sitter - Dr. Daily notified
[2019-10-12 19:09] VITALS: BP 146/75
[2019-10-12] MEDS: OMEGA 3 (FISH OIL) 1000 MG CAP PO SCH (19:43)
[2019-10-12] MEDS: APIXABAN 5 MG (ELIQUIS) TABLET PO SCH (19:43)
[2019-10-12] MEDS: CYCLOBENZAPRINE 10 MG (FLEXERIL) TAB PO SCH (19:43)
[2019-10-12] MEDS: PREGABALIN 150 MG (LYRICA) CAPSULE PO SCH (19:43)
[2019-10-12] MEDS: AMITRIPTYLINE 25 MG (ELAVIL) TAB PO SCH (19:44)
[2019-10-12] MEDS: OXYBUTYNIN (DITROPAN) 5 MG TAB PO SCH (19:44)
[2019-10-12] MEDS: SENNA W/DOCUSATE (SENOKOT S) TABLET PO SCH (19:44)
--- NOTE | 2019-10-12 20:30 | NUR ---
PT'S SON AT BEDSIDE, "DEMANDING ANSWERS" REGARDING WHY HIS MOTHER IS ON SUICIDE PRECAUTIONS. SON WAS INFORMED OF WHAT THE PATIENT HAD EXPRESSED TO THE DAY SHIFT NURSE. AND WHAT THE PATIENTS SISTER (TRACY) HAD ALSO TOLD DAY SHIFT RN. REITERATED TO SON THIS RN WAS NOT HEAR WHEN THIS ALL TRANSPIRED. SON SHOWED DOCUMENTS THAT HE IS THE DPOA AND WISHES THAT THE PATIENTS SISTER (TRACY) NOT BE ALLOWED IN THE PATIENTS ROOM OR CALL HER. PASSWORD SET UP WITH PATIENT AND SON.
[2019-10-12] MEDS ORDERED: INSULIN DETEMIR 80 UNIT SQ SCH (21:00)
[2019-10-12] MEDS ORDERED: NON-FORMULARY MEDICATION 1 EA EA (Amitriptyline HCl 75 MG) PO SCH (21:00)
[2019-10-12] MEDS: PIPERACILLIN/TAZOBACTAM (BULK) 4.5 GM in NS (IVPB) 100 ML IV SCH (21:17)
--- NOTE | 2019-10-12 21:24 | NUR ---
SUICIDE EVALUATION PERFORMED ON PT AT THIS TIME. CASTILLO RN/ PRICING SUPERVISOR IN ROOM WITNESS WITH THIS RN. PT. SIGNED THE NO HARM CONTRACT. AND STATING SHE HAS NO PLAN TO HURT HERSELF. PT. CHANGED FROM 1:1 SITTER TO A TELE-SITTER.
[2019-10-12] MEDS: RT-ADVAIR HFA 115/21 MCG PER PUFF IH SCH (21:46)
[2019-10-13] VITALS (7 sets, daily range): BP systolic 108–176; BP diastolic 53–97
[2019-10-13] MEDS: RT-ALBUTEROL/IPRATROPIUM 3 ML (DUONEB) VIAL IH SCH ×6 (02:22→22:01)
[2019-10-13] MEDS: VANCOMYCIN 1,750 MG/NS 500 ML IVPB IV SCH ×4 (04:00→17:03)
[2019-10-13] MEDS: KCL 20 MEQ TAB (K-DUR) PO SCH (05:23)
[2019-10-13] MEDS: PIPERACILLIN/TAZOBACTAM (BULK) 4.5 GM in NS (IVPB) 100 ML IV SCH ×3 (05:23→21:54)
[2019-10-13 05:42] LABS: BASOPHILS # (AUTO) 0.1 10^3/uL (0.0-0.1); BASOPHILS % (AUTO) 0 % (0-10); EOSINOPHILS % (AUTO) 0 % (0-10); HEMATOCRIT 36 % (35-52); HEMOGLOBIN 12.2 G/DL (11.5-16.0); LYMPHOCYTES # (AUTO) 1.4 X 10^3 (1.0-4.0); LYMPHOCYTES % (AUTO) 6 % (12-44); MEAN CORPUSCULAR HEMOGLOBIN 28 PG (25-34); MEAN CORPUSCULAR HGB CONC 34 G/DL (32-36); MEAN CORPUSCULAR VOLUME 82 FL (80-99); MEAN PLATELET VOLUME 11.7 FL (7.4-10.4); MONOCYTES # (AUTO) 1.8 X 10^3 (0.0-1.0); MONOCYTES % (AUTO) 7 % (0-12); NEUTROPHILS # (AUTO) 20.9 X 10^3 (1.8-7.8); NEUTROPHILS % (AUTO) 87 % (42-75); PLATELET COUNT 343 10^3/uL (130-400); RED CELL DISTRIBUTION WIDTH 15.9 % (10.0-14.5); WHITE BLOOD COUNT 24.1 10^3/uL (4.3-11.0)
[2019-10-13] MEDS ORDERED: INSULIN ASPART 50 UNIT SQ SCH (06:00)
[2019-10-13 06:02] LABS: BILIRUBIN,TOTAL 0.2 MG/DL (0.1-1.0); CALCIUM 9.8 MG/DL (8.5-10.1); CREATININE SERUM 1.22 MG/DL (0.60-1.30); TOTAL PROTEIN 7.1 GM/DL (6.4-8.2)
[2019-10-13] MEDS: inSUlin ASPART (NovoLOG) 1 UNIT/0.01 ML (CHARGE PER UNIT) SC SCH ×7 (06:08→21:52)
[2019-10-13] MEDS: ROSUVASTATIN 20 MG (CRESTOR) TABLET PO SCH (08:59)
[2019-10-13] MEDS: OXYBUTYNIN (DITROPAN) 5 MG TAB PO SCH ×2 (08:59→21:48)
[2019-10-13] MEDS: MELOXICAM 7.5 MG (MOBIC) TABLET PO SCH (08:59)
[2019-10-13] MEDS: PANTOPRAZOLE 40 MG (PROTONIX) TAB PO SCH (08:59)
[2019-10-13] MEDS: CYCLOBENZAPRINE 10 MG (FLEXERIL) TAB PO SCH ×3 (08:59→21:48)
[2019-10-13] MEDS: APIXABAN 5 MG (ELIQUIS) TABLET PO SCH ×2 (09:00→21:48)
[2019-10-13] MEDS: SENNA W/DOCUSATE (SENOKOT S) TABLET PO SCH ×2 (09:00→21:48)
[2019-10-13] MEDS: FUROSEMIDE 40 MG (LASIX) TAB PO SCH (09:00)
[2019-10-13] MEDS: PREGABALIN 150 MG (LYRICA) CAPSULE PO SCH ×3 (09:00→21:48)
[2019-10-13] MEDS ORDERED: AZITHROMYCIN INJECTION 500 MG in NS (IVPB) 250 ML IV SCH (09:00)
[2019-10-13] MEDS: LOSARTAN 25 MG (COZAAR) TAB PO SCH (09:00)
[2019-10-13] MEDS ORDERED: NON-FORMULARY MEDICATION 1 EA EA (Sitagliptin Phosphate (Januvia) 100 MG) PO SCH (09:00)
[2019-10-13] MEDS ORDERED: NON-FORMULARY MEDICATION 1 EA EA (Meloxicam 15 MG) PO SCH (09:00)
[2019-10-13] MEDS ORDERED: NON-FORMULARY MEDICATION 1 EA EA (Rosuvastatin Calcium 40 MG) PO SCH (09:00)
[2019-10-13] MEDS ORDERED: OXYBUTYNIN ER 5 MG (DITROPAN XL) TAB NON-FORMULARY PO SCH (09:00)
[2019-10-13] MEDS ORDERED: NON-FORMULARY MEDICATION 1 EA EA (Dapagliflozin Propanediol (Farxiga) 10 MG) PO SCH (09:00)
[2019-10-13] MEDS ORDERED: NON-FORMULARY MEDICATION 1 EA EA (Omeprazole 40 MG) PO SCH (09:00)
[2019-10-13] MEDS: NYSTATIN OINTMENT 30 GM TUBE TOP SCH ×2 (09:02→21:57)
[2019-10-13] MEDS: LINAGLIPTIN (TRADJENTA) 5 MG TABLET PO SCH (09:14)
--- NOTE | 2019-10-13 10:17 | Progress Note ---
Subjective Subjective/Events-last exam Afebrile, has some pain in right abdomen where she had a boil like spot that popped last night. Pt's sister reported to nursing last night that pt had said she wanted to kill herself and so she was put on 1:1. This morning she says she has no plans to harm herself and is just sad that no one came to check on her at home. She also states her sister "does this". Focused Exam Lactate Level 10/12/19 10:31: Lactic Acid Level 1.56 Objective Exam Last Set of Vital Signs Vital Signs Date Time Temp Pulse Resp B/P (MAP) Pulse Ox O2 Delivery O2 Flow Rate FiO2 10/13/19 08:00 36.4 101 22 160/83 (108) 95 Nasal Cannula 2.00 10/12/19 13:45 32 Capillary Refill : Less Than 3 Seconds I&O Intake and Output 10/13/19 00:00 Intake Total 1272.5 ml Balance 1272.5 ml Intake Oral 620 ml IV Total 652.5 ml # Voids 5 Daily Weight Change No No General: Alert, Mild Distress Lungs: Clear to Auscultation, Normal Air Movement Heart: Regular Rate, No Murmurs Abdomen: Normal Bowel Sounds, Soft Skin: Other (mildly erythematous lesion on right abdominal wall about 2 cm in diameter with no drainage) Neuro: Normal Speech Results/Procedures Lab Laboratory Tests 10/12/19 10:31: Lactic Acid Level 1.56 10/12/19 13:15: Glucometer 320H 10/12/19 16:12: Glucometer 298H 10/12/19 20:33: Glucometer 321H 10/13/19 05:05: White Blood Count 24.1H, Red Blood Count 4.44, Hemoglobin 12.2, Hematocrit 36, Mean Corpuscular Volume 82, Mean Corpuscular Hemoglobin 28, Mean Corpuscular Hemoglobin Concent 34, Red Cell Distribution Width 15.9H, Platelet Count 343, Mean Platelet Volume 11.7H, Neutrophils (%) (Auto) 87H, Lymphocytes (%) (Auto) 6L, Monocytes (%) (Auto) 7, Eosinophils (%) (Auto) 0, Basophils (%) (Auto) 0, Neutrophils # (Auto) 20.9H, Lymphocytes # (Auto) 1.4, Monocytes # (Auto) 1.8H, Eosinophils # (Auto) 0.0, Basophils # (Auto) 0.1, Sodium Level 133L, Potassium Level 4.0, Chloride Level 100, Carbon Dioxide Level 18L, Anion Gap 15H, Blood Urea Nitrogen 22H, Creatinine 1.22, Estimat Glomerular Filtration Rate 46, BUN/Creatinine Ratio 18, Glucose Level 343H, Calcium Level 9.8, Corrected Calcium 10.6H, Total Bilirubin 0.2, Aspartate Amino Transf (AST/SGOT) 12, Alanine Aminotransferase (ALT/SGPT) 13, Alkaline Phosphatase 130, Total Protein 7.1, Albumin 3.0L Microbiology 10/12/19 Influenza Types A,B Antigen ([place]) - Final, Complete Radiology CXR 10/11: IMPRESSION: Bilateral patchy alveolar infiltrates consistent with pneumonia. Assessment/Plan Assessment/Plan (1) Pneumonia Status: Acute Assessment & Plan: Will treat for healthcare associated with Zosyn and Vancomycin given recent hospitalizations here. Check influenza. Had Flu B at the end of Aug. Influenza neg, continue Zosyn and Vanc. Blood cultures in process. On baseline supplemental oxygen. Qualifiers: Qualified Codes: J18.9 - Pneumonia, unspecified organism (2) Hyponatremia Status: Acute Assessment & Plan: Hypovolemic vs excess free water intake due to markedly decreased mobility but with report of many empty water bottles surrounding. NS@125, monitor closely. 10/12 improved, continue IVF. (3) Sepsis Status: Acute Assessment & Plan: Secondary to pneumonia. Lactic acid normal, no end organ failure or hypotension. (4) Weakness Status: Acute Assessment & Plan: PT eval (5) COPD (chronic obstructive pulmonary disease) Status: Chronic Assessment & Plan: Unclear if exacerbation superimposed on pneumonia, on baseline supplemental oxygen and has no wheezing. RT, duonebs, solumedrol. (6) Insulin dependent diabetes mellitus Status: Chronic Assessment & Plan: Home insulin, diabetic diet, sliding scale insulin. (7) Essential (primary) hypertension Status: Chronic (8) Stage 1 decubitus ulcer in diabetic patient Status: Acute Assessment & Plan: Apparently developed in last week with marked debility and limited mobility. With satellite lesions will treat with antifungal as well as barrier and frequent position changes. (9) DVT prophylaxis Status: Acute Assessment & Plan[facility] Clinical Quality Measures DVT/VTE Risk/Contraindication: Risk Factor Score Per Nursin RFS Level Per Nursing on Admit: 4+=Very High DEANDRE CUEVAS MD Oct 13, 2019 10:17
[2019-10-13] MEDS: RT-ADVAIR HFA 115/21 MCG PER PUFF IH SCH (11:38)
[2019-10-13] MEDS: NS IV 1000 ML 1,000 ML IV SCH (14:36)
--- NOTE | 2019-10-13 14:39 | Physical Therapy Daily Note ---
PT Daily Note-Current Subjective Patient is agreeable to therapy at this time. Pain Numeric Pain Scale: 10-Worst Possible Pain Location Body Site: Sacrum Appearance Patient did not want to sit in recliner, in bed with call light and bedside table within reach. Mental Status Patient Orientation: Person, Place, Time Attachments: IV Transfers SCALE: Activities may be completed with or without assistive devices. 3-Dqpxxdjhxf-igfbrff completes the activity by him/herself with no assistance from a helper. 5-Set-up or Clean-up Assistance-helper sets up or cleans up; patient completes activity. [place] assists only prior to or following the activity. 4-Supervision or Touching Assistance-helper provides verbal cues and/or touching/steadying and/or contact guard assistance as patient completes activi ty. Assistance may be provided throughout the activity or intermittently. 3-Partial/Moderate Assistance-helper does LESS THAN HALF the effort. [place] lifts, holds or supports trunk or limbs, but provides less than half the effort. 2-Substantial/Maximal Assistance-helper does MORE THAN HALF the effort. [place] lifts or holds trunk or limbs and provides more than half the effort. 0-Lyzvabnfq-ybfvtq does ALL the effort. Patient does none of the effort to complete the activity. Or, the assistance of 2 or more helpers is required for the patient to complete the activity. If activity was not attempted, code reason: 7-Patient Refused. 9-Not Applicable-not attempted and the patient did not perform the activity before the current illness, exacerbation or injury. 10-Not Attempted due to Environmental Limitations-(lack of equipment, weather restraints, etc.). 88-Not Attempted due to Medical Conditions or Safety Concerns. Roll Left & Right (QC): 6 Sit to Lying (QC): 6 Lying to Sitting/Side of Bed(Q: 6 Sit to Stand (QC): 4 Weight Bearing Right Lower Extremity: Right Weight Bearing/Tolerated Left Lower Extremity: Left Weight Bearing/Tolerated Gait Training Does the Patient Walk?: Yes Distance: 120' Walk 10 feet (QC): 4 Walk 50 ft with 2 Turns(QC): 4 Gait Assistive Device: FWW CGA for safety. Patient states her arms get very tired while walking. Wheelchair Training Does the Pt Use a Wheelchair?: No Exercises Seated Therapy Exercises: Ankle pumps, Long arc quads Seated Reps: 10 (BLE) Treatments BLE seated exercises, bed mobility, transfers, ambulation. Assessment Current Status: Good Progress Patient was able to tolerate a longer distance today but ceased due to her arms getting tired. Patient stood at EOB for about 2 minutes prior to sitting down for extended pressure relief. During exercises patient stated she had increased pain but at a tolerable level. PT Shelter Goals Bankruptcy Manager Goals PT Shelter Goals Time Frame: Oct 19, 2019 Roll Left & Right (QC): 6 Sit to Lying (QC): 6 Lying-Sitting on Side/Bed(QC): 6 Sit to Stand (QC): 6 Chair/Tic-bi-Krghk Xfer(QC): 6 Does the Patient Walk: Yes Walk 10 feet (QC): 6 Walk 50ft with 2 Turns (QC): 6 Walk 150 ft (QC): 6 PT Plan Problem List Problem List: Activity Tolerance, Functional Strength, Safety, Balance, Gait, Transfer, Bed Mobility, ROM Treatment/Plan Treatment Plan: Continue Plan of Care Treatment Plan: Bed Mobility, Education, Functional Activity Cait, Functional Strength, Gait, Safety, Therapeutic Exercise, Transfers Treatment Duration: Oct 19, 2019 Frequency: 5 times per week Estimated Hrs Per Day: .25 hour per day Patient and/or Family Agrees t: Yes Time/GCodes Time In: 1356 Time Out: 1413 Total Billed Treatment Time: 17 Total Billed Treatment 1 visit FA 17 ROMAN KELLEY PT Oct 13, 2019 14:39
[2019-10-13] MEDS ORDERED: NON-FORMULARY MEDICATION 1 EA EA (Dulaglutide (Trulicity) 0.75 MG) SC SCH (16:15)
[2019-10-13] MEDS: ADVAIR HFA 115/21 MCG INHALER 8 GM IH SCH (18:46)
[2019-10-13] MEDS: OMEGA 3 (FISH OIL) 1000 MG CAP PO SCH (21:48)
[2019-10-13] MEDS: AMITRIPTYLINE 25 MG (ELAVIL) TAB PO SCH (21:49)
[2019-10-14] VITALS: BP 144/65
[2019-10-14] MEDS: RT-ALBUTEROL/IPRATROPIUM 3 ML (DUONEB) VIAL IH SCH ×3 (02:19→11:05)
[2019-10-14] MEDS: NS IV 1000 ML 1,000 ML IV SCH (02:58)
[2019-10-14 04:00] VITALS: BP 136/60
[2019-10-14] MEDS: VANCOMYCIN 1,750 MG/NS 500 ML IVPB IV SCH ×2 (04:56)
[2019-10-14 05:08] LABS: HEMOGLOBIN 11.3 G/DL (11.5-16.0); MEAN PLATELET VOLUME 11.5 FL (7.4-10.4); RED CELL DISTRIBUTION WIDTH 16.3 % (10.0-14.5); WHITE BLOOD COUNT 19.1 10^3/uL (4.3-11.0)
[2019-10-14 05:40] LABS: CALCIUM 8.8 MG/DL (8.5-10.1); CREATININE SERUM 1.08 MG/DL (0.60-1.30); POTASSIUM 3.9 MMOL/L (3.6-5.0)
[2019-10-14] MEDS: PIPERACILLIN/TAZOBACTAM (BULK) 4.5 GM in NS (IVPB) 100 ML IV SCH (05:53)
[2019-10-14] MEDS: KCL 20 MEQ TAB (K-DUR) PO SCH (05:55)
[2019-10-14] MEDS: inSUlin ASPART (NovoLOG) 1 UNIT/0.01 ML (CHARGE PER UNIT) SC SCH ×4 (05:57→12:11)
[2019-10-14] MEDS: ADVAIR HFA 115/21 MCG INHALER 8 GM IH SCH (07:41)
[2019-10-14 08:00] VITALS: BP 127/69
--- NOTE | 2019-10-14 08:13 | NUR ---
CM/SS: Late entry - 10-13-2019 - Visited with pt as to her emotional state as well as need as per consult Plan: Pt desires to return home with [facility] resumed when deemed appropriate Summary: Pt is familiar to this worker. Pt is asked how she is doing emotionally in light of the recent expression of suicidal thoughts. Pt reports some issues with her twin sister and said some things that she should not have said. Pt reports telling her sister that she was going to go to her home and burn it down with her in it. Pt reports she is feeling better and that she was and is not suicidal. This worker talks with pt about if she feels like she wants to hurt or harm herself, then we want to get her some help, as we are concerned for her mental health as well as her physical health. Pt is asked about not taking her medication and sitting on sofa for a week. She reports she was too weak to do anything and that when she called family no one had time to come. This is not a new problem. This worker talks with pt as to her being able to manage at home or does she need to be placed somewhere, pt immediately says that she is going home and NOT going anywhere. Pt is encouraged to work with physical therapy and get her strength back. This worker will follow up with pt.
[2019-10-14] MEDS: OXYBUTYNIN (DITROPAN) 5 MG TAB PO SCH (08:20)
[2019-10-14] MEDS: CYCLOBENZAPRINE 10 MG (FLEXERIL) TAB PO SCH ×2 (08:20→13:01)
[2019-10-14] MEDS: APIXABAN 5 MG (ELIQUIS) TABLET PO SCH (08:20)
[2019-10-14] MEDS: PREGABALIN 150 MG (LYRICA) CAPSULE PO SCH ×2 (08:20→13:01)
[2019-10-14] MEDS: MELOXICAM 7.5 MG (MOBIC) TABLET PO SCH (08:21)
[2019-10-14] MEDS: LINAGLIPTIN (TRADJENTA) 5 MG TABLET PO SCH (08:21)
[2019-10-14] MEDS: FUROSEMIDE 40 MG (LASIX) TAB PO SCH (08:21)
[2019-10-14] MEDS: ROSUVASTATIN 20 MG (CRESTOR) TABLET PO SCH (08:21)
[2019-10-14] MEDS: LOSARTAN 25 MG (COZAAR) TAB PO SCH (08:21)
[2019-10-14] MEDS: PANTOPRAZOLE 40 MG (PROTONIX) TAB PO SCH (08:21)
[2019-10-14] MEDS: SENNA W/DOCUSATE (SENOKOT S) TABLET PO SCH (08:23)
[2019-10-14] MEDS: NYSTATIN OINTMENT 30 GM TUBE TOP SCH (08:26)
[2019-10-14] MEDS ORDERED: AZITHROMYCIN 250 MG TAB (ZITHROMAX) PO SCH (09:00)
--- NOTE | 2019-10-14 09:06 | Physical Therapy Daily Note ---
PT Daily Note-Current Subjective Patient is agreeable to therapy at this time. Pain Numeric Pain Scale: 3 Location Body Site: Sacrum Appearance Patient in recliner with call light and bedside table within reach. Mental Status Patient Orientation: Person Attachments: IV Transfers SCALE: Activities may be completed with or without assistive devices. 8-Sesckqjvdz-utfcyyv completes the activity by him/herself with no assistance from a helper. 5-Set-up or Clean-up Assistance-helper sets up or cleans up; patient completes activity. Mclean assists only prior to or following the activity. 4-Supervision or Touching Assistance-helper provides verbal cues and/or touching/steadying and/or contact guard assistance as patient completes activity. Assistance may be provided throughout the activity or intermittently. 3-Partial/Moderate Assistance-helper does LESS THAN HALF the effort. Mclean lifts, holds or supports trunk or limbs, but provides less than half the effort. 2-Substantial/Maximal Assistance-helper does MORE THAN HALF the effort. Mclean l ifts or holds trunk or limbs and provides more than half the effort. 3-Llhdwnfic-oefxzl does ALL the effort. Patient does none of the effort to complete the activity. Or, the assistance of 2 or more helpers is required for the patient to complete the activity. If activity was not attempted, code reason: 7-Patient Refused. 9-Not Applicable-not attempted and the patient did not perform the activity before the current illness, exacerbation or injury. 10-Not Attempted due to Environmental Limitations-(lack of equipment, weather restraints, etc.). 88-Not Attempted due to Medical Conditions or Safety Concerns. Sit to Stand (QC): 4 Chair/Mhn-nr-Gvsbw Xfer(QC): 4 Weight Bearing Right Lower Extremity: Right Weight Bearing/Tolerated Left Lower Extremity: Left Weight Bearing/Tolerated Gait Training Does the Patient Walk?: Yes Distance: 170' Walk 10 feet (QC): 4 Walk 50 ft with 2 Turns(QC): 4 Walk 150 ft (QC): 4 Gait Assistive Device: FWW CGA for safety. Patient needed frequent standing breaks while walking to rest hands, she stated she was having pain in her hands from neuropathy. Exercises Seated Therapy Exercises: Ankle pumps, Long arc quads, Hip flexion Seated Reps: 10 (BLE) Treatments BLE seated exercises, ambulation, transfers. Assessment Current Status: Good Progress Patient tolerates exercises well with only mildly increased pain. Patient is steady during ambulation but requires frequent standing rest breaks. PT Security Infrastructure Engineer Goals Shelter Goals PT Security Infrastructure Engineer Goals Time Frame: Oct 19, 2019 Roll Left & Right (QC): 6 Sit to Lying (QC): 6 Lying-Sitting on Side/Bed(QC): 6 Sit to Stand (QC): 6 Chair/Uux-rm-Frnej Xfer(QC): 6 Does the Patient Walk: Yes Walk 10 feet (QC): 6 Walk 50ft with 2 Turns (QC): 6 Walk 150 ft (QC): 6 PT Plan Problem List Problem List: Activity Tolerance, Functional Strength, Safety, Balance, Gait, Transfer, Bed Mobility, ROM Treatment/Plan Treatment Plan: Continue Plan of Care Treatment Plan: Bed Mobility, Education, Functional Activity Cait, Functional Strength, Gait, Safety, Therapeutic Exercise, Transfers Treatment Duration: Oct 19, 2019 Frequency: 5 times per week Estimated Hrs Per Day: .25 hour per day Patient and/or Family Agrees t: Yes Safety Risks/Education Patient Education: Gait Training, Transfer Techniques Teaching Recipient: Patient Teaching Methods: Discussion Response to Teaching: Reinforcement Needed Time/GCodes Time In: 840 Time Out: 900 Total Billed Treatment Time: 20 Total Billed Treatment 1 visit FA 18 SHYAMJOSH CPTA Oct 14, 2019 09:06
[2019-10-14] MEDS ORDERED: CEFD300C3 PO (10:52)
--- NOTE | 2019-10-14 10:56 | Discharge Summary ---
Discharge Summary Instructions for Patient Assessment/Instructions Follow up with Valeri Hernández on 10/18 at 1 pm. Physician to follow Patient: Valeri Hernández APRN Discharge Diet for Home: ADA Diet Hospital Course Date of Admission: Oct 12, 2019 at 11:16 Admission Diagnosis : Pneumonia Debility Family Physician/Provider: Valeri Hernández Aprn Date of Discharge: 10/14/19 Discharge Diagnosis: Pneumonia Debility Hospital Course: Pt was admitted due to marked debility, not able to get up off couch for several days and found to have pneumonia and stage 1 decubitus ulcer. She was treated with IV antibiotics and physical therapy and was feeling much better, but although usp was recommended, she declined and so was discharged with home health services. Labs and Pending Lab Test: Laboratory Tests 10/13/19 11:38: Glucometer 211H 10/13/19 16:17: Glucometer 334H 10/13/19 20:13: Glucometer 330H 10/14/19 04:45: White Blood Count 19.1H, Red Blood Count 4.06L, Hemoglobin 11.3L, Hematocrit 34L , Mean Corpuscular Volume 84, Mean Corpuscular Hemoglobin 28, Mean Corpuscular Hemoglobin Concent 33, Red Cell Distribution Width 16.3H, Platelet Count 320, Mean Platelet Volume 11.5H, Sodium Level 133L, Potassium Level 3.9, Chloride Level 104, Carbon Dioxide Level 17L, Anion Gap 12, Blood Urea Nitrogen 25H, Creatinine 1.08, Estimat Glomerular Filtration Rate 52, BUN/Creatinine Ratio 23, Glucose Level 319H, Calcium Level 8.8 Microbiology 10/12/19 Influenza Types A,B Antigen ([place]) - Final, Complete 10/12/19 Blood Culture - Preliminary, Resulted No growth Home Meds Active Cefdinir 300 Mg Capsule 300 Mg PO BID 7 Days Senna-Time S Tablet (Sennosides/Docusate Sodium) 1 Each Tablet 1 Each PO BID Advair Hfa 115-21 Mcg Inhaler (Fluticasone/Salmeterol) 12 Gm Hfa.aer.ad 0 Puff IH BID@ Reported Incruse Ellipta (Umeclidinium [place]) 62.5 Mcg Blst.w.dev 1 Puff IN DAILY Amitriptyline HCl 75 Mg Tablet 75 Mg PO HS Oxybutynin Chloride ER (Oxybutynin Chloride) 5 Mg Tab.er.24 5 Mg PO DAILY Omeprazole 40 Mg Capsule.dr 40 Mg PO DAILY Trulicity (Dulaglutide) 0.75 Mg/0.5 Ml Pen.injctr 0.75 Mg SC TU Melatonin 10 Mg Tablet 10 Mg PO HS PRN Glucagon Emergency Kit (Glucagon,Human Recombinant) 1 Mg/Kit Soln SC UD PRN Meloxicam 15 Mg Tablet 15 Mg PO DAILY Potassium Chloride 20 Meq Tab.er.prt 20 Meq PO DAILY Sumatriptan Succinate 50 Mg Tablet 50 Mg PO UD PRN TAKE 1 TAB AT ONSET OF MIGRAINE, IF SYMPTOMS PERSIST AFTER 2 HOURS TAKE AN ADDITIONAL TABLET Losartan Potassium 25 Mg Tablet 25 Mg PO DAILY Fluticasone Propionate 16 Gm [place].susp 2 Sprays NS DAILY PRN Lyrica (Pregabalin) 150 Mg Capsule 150 Mg PO TID Januvia (Sitagliptin Phosphate) 100 Mg Tablet 100 Mg PO DAILY Farxiga (Dapagliflozin Propanediol) 10 Mg Tablet 10 Mg PO DAILY Proair Hfa (Albuterol Sulfate) 1 Puff Puff 2 Puff IH QID PRN Hydroxyzine HCl 50 Mg Tablet 50 Mg PO BID PRN Cyclobenzaprine HCl 10 Mg Tablet 10 Mg PO TID Furosemide 40 Mg Tablet 40 Mg PO DAILY Fish Oil 1,000 mg Capsule ([place] 3 Polyunsat Fatty Acids) 1,000 Mg Cap 1,000 Mg PO HS Novolog Flexpen (Insulin Aspart) 300 Units/3 Ml Solution 50 Units SQ TIDAC Levemir Flextouch (Insulin Detemir) 100 Unit/1 Ml Insuln.pen 80 Unit SQ BID Eliquis (Apixaban) 5 Mg Tablet 5 Mg PO BID Rosuvastatin Calcium 40 Mg Tablet 40 Mg PO DAILY Patient Allergies: Coded Allergies: sulfamethoxazole (Verified Allergy, Severe, JOINTS HURT, 12/21/18) trimethoprim (Verified Allergy, Severe, JOINTS HURT, 12/21/18) influenza virus vaccine, specific (Unverified Allergy, Intermediate, rash, 09/23/18) aspirin (Unverified Allergy, Unknown, convulsions, 09/23/18) metformin (Verified Adverse Reaction, Intermediate, joint pain, 09/23/18) hydromorphone HCl (Unverified Adverse Reaction, Mild, VOMITING, 01/06/11) Height (Feet): 5 Height (Inches): 9.00 Weight (Pounds): 253 Weight (Ounces): 1.0 Home Health Need/Face to Face Date of Face to Face: Oct 14, 2019 Clinical Findings: Generalized weakness and fatigue, Instability, Muscle weakness, Shortness of breath I have seen Pt yaoj-gb-nryk: Yes Discharged To: Home Diagnosis/Conditions: Pneumonia COPD Diabetes Weakness Patient is Homebound due to: Dariel fall risk due to instabilty, Muscle weakness, Shortness of breath/distress Homebound Status Due to the above stated illness, injury or surgical procedure (medical con dition or diagnosis) and associated clinical findings, the patient is homebound because of his/her inability to leave home except with aid of a supportive device and/or person AND leaving the home requires a considerable and taxing effort or is medically contraindicated. Pt req the following assistanc: Aid of another person Home Health Nursing Orders Home Health Services Order: Nursing Services, Physical Therapy-Evaluate & Treat, Wound Care-Eval/Treat Therapy Orders Therapy Orders: Physical Therapy, PT to assess for OT Certify Stmt I certify that this patient is under my care and that I, a nurse practitioner or a physician; a studio assistant working with me, had a face to face encounter that - meets the physician face to face encounter requirements with this patient as dated. Discharge Physical Exam General: Alert, No Acute Distress Lungs: Clear to Auscultation, Normal Air Movement Heart: Regular Rate, No Murmurs Neuro: Normal Speech Psych/Mental Status: Mental Status DEANDRE OLIVER MD Oct 14, 2019 10:56
[2019-10-14 12:00] VITALS: BP 123/68
[2019-10-14 13:12] VITALS: BP 123/68
--- NOTE | 2019-10-14 16:23 | NUR ---
CM/SS: Visited with pt as to plan for discharge Plan: Pt will discharge to home with [facility] to be resumed Summary: Pt is ready to go home. Pt's son is in the room ready to take pt to [facility]. Pt is reminded that Home Care will be resumed with [facility]. She is ok with that. Pt is given this workers contact information if she would have questions as to her pending medicaid status and in home services. Pt verbalizes understanding.
== END 2019-10-14 13:13 | disposition home health service (06) | DRG 871 ==
LOC: EDUNIT# 10:11 → ER FS 10:12 → 4TH 11:16
PROVIDERS: ADMIT Family Medicine; ATTEND Family Medicine
DX: A41.9 Sepsis, unspecified organism (principal); J18.9 Pneumonia, unspecified organism; E87.1 Hypo-osmolality and hyponatremia; I42.9 Cardiomyopathy, unspecified; J44.9 Chronic obstructive pulmonary disease, unspecified; I10 Essential (primary) hypertension; F17.210 Nicotine dependence, cigarettes, uncomplicated; E11.40 Type 2 diabetes mellitus with diabetic neuropathy, unspecified; L89.311 Pressure ulcer of right buttock, stage 1; L89.321 Pressure ulcer of left buttock, stage 1; R53.1 Weakness; E78.5 Hyperlipidemia, unspecified; K21.9 Gastro-esophageal reflux disease without esophagitis; R60.9 Edema, unspecified; M19.91 Primary osteoarthritis, unspecified site; H93.19 Tinnitus, unspecified ear; F41.9 Anxiety disorder, unspecified; F32.9 Major depressive disorder, single episode, unspecified; Z79.4 Long term (current) use of insulin; Z99.81 Dependence on supplemental oxygen
CPT/HCPCS: 36415; 71045; 80048; 80053; 82962; 83605; 84484; 85007; 85025; 85027; 87040; 87804; 93005; 94640; 94664; 94760

== ENCOUNTER 2019-10-17 12:40 | Inpatient (IN) | payer MEDICARE, MEDICAID ==
[~2019-10-17] VITALS: Ht 175 cm; Wt 130.1 kg
[~2019-10-17 12:40] MED LIST changes: +AMIT75TA2 PO; +CEFD300C3 PO; +OXYB-52 PO; +UMEC62.5 IN
--- NOTE | 2019-10-17 12:50 | ED General ---
General Stated Complaint: SOA History of Present Illness Date Seen by Provider: Oct 17, 2019 Time Seen by Provider: 12:50 Initial Comments Patient is a 54-year-old female who comes to the emergency department today by ambulance after feeling short of breath at home. The patient describes that she stood up and became acutely short of breath. She normally uses 2 L of oxygen at home per nasal cannula and increases this to 3 L when she is active but she was short of breath today despite using her normal oxygen. Patient was just discharged from the hospital on October 11 when she was diagnosed with pneumonia and some skin breakdown over the coccyx. According to EMR, patient was recommended for intermediate but declined at that time. She was discharged home with by mouth antibiotics after having received vancomycin and Zosyn inpatient. Since discharge, the patient endorses being very inactive. She states she has primarily been laying in her bed and frequently incontinent of urine and stool. She does overall endorse some worsening shortness of breath with activity compared to her baseline. At baseline, however, the patient seems to have significant debility. She denies fever. She does complain of cough. She also complains of severe pain over the coccyx area where she is known to have a fungal infection and some skin breakdown. Allergies and Home Medications Allergies Coded Allergies: sulfamethoxazole (Verified Allergy, Severe, JOINTS HURT, 12/21/18) trimethoprim (Verified Allergy, Severe, JOINTS HURT, 12/21/18) influenza virus vaccine, specific (Unverified Allergy, Intermediate, rash, 09/23/18) aspirin (Unverified Allergy, Unknown, convulsions, 09/23/18) metformin (Verified Adverse Reaction, Intermediate, joint pain, 09/23/18) hydromorphone HCl (Unverified Adverse Reaction, Mild, VOMITING, 01/06/11) Home Medications Albuterol Sulfate 1 Puff Puff, 2 PUFF IH QID PRN for SHORTNESS OF BREATH, (Reported) Amitriptyline HCl 75 Mg Tablet, 75 MG PO HS, (Reported) Apixaban 5 Mg Tablet, 5 MG PO BID, (Reported) Cefdinir 300 Mg Capsule, 300 MG PO BID Prescribed by: DEANDRE CUEVAS on 10/14/19 1052 Cyclobenzaprine HCl 10 Mg Tablet, 10 MG PO TID, (Reported) Dapagliflozin Propanediol 10 Mg Tablet, 10 MG PO DAILY, (Reported) Dulaglutide 0.75 Mg/0.5 Ml Pen.injctr, 0.75 MG SC Tu, (Reported) Fluticasone Propionate 16 Gm [place].susp, 2 SPRAYS NS DAILY PRN for CONGESTION, (Reported) Fluticasone/Salmeterol 12 Gm Hfa.aer.ad, 0 PUFF IH BID@08,20 Prescribed by: DARRELL URBINA on 09/11/191115 Furosemide 40 Mg Tablet, 40 MG PO DAILY, (Reported) Glucagon,Human Recombinant 1 Mg/Kit Soln, SC UD PRN for HYPOGLYCEMIA, (Reported) Hydroxyzine HCl 50 Mg Tablet, 50 MG PO BID PRN for ANXIETY, (Reported) Insulin Aspart 300 Units/3 Ml Solution, 50 UNITS SQ TIDAC, (Reported) Insulin Detemir 100 Unit/1 Ml Insuln.pen, 80 UNIT SQ BID, (Reported) Losartan Potassium 25 Mg Tablet, 25 MG PO DAILY, (Reported) Melatonin 10 Mg Tablet, 10 MG PO HS PRN for SLEEP, (Reported) Meloxicam 15 Mg Tablet, 15 MG PO DAILY, (Reported) [place] 3 Polyunsat Fatty Acids 1,000 Mg Cap, 1,000 MG PO HS, (Reported) Omeprazole 40 Mg Capsule.dr, 40 MG PO DAILY, (Reported) Oxybutynin Chloride 5 Mg Tab.er.24, 5 MG PO DAILY, (Reported) Potassium Chloride 20 Meq Tab.er.prt, 20 MEQ PO DAILY, (Reported) Pregabalin 150 Mg Capsule, 150 MG PO TID, (Reported) Rosuvastatin Calcium 40 Mg Tablet, 40 MG PO DAILY, (Reported) Sennosides/Docusate Sodium 1 Each Tablet, 1 EACH PO BID Prescribed by: DARRELL URBINA on 09/11/191115 Sitagliptin Phosphate 100 Mg Tablet, 100 MG PO DAILY, (Reported) Sumatriptan Succinate 50 Mg Tablet, 50 MG PO UD PRN for MIGRAINE, (Reported) TAKE 1 TAB AT ONSET OF MIGRAINE, IF SYMPTOMS PERSIST AFTER 2 HOURS TAKE AN ADDITIONAL TABLET Umeclidinium [place] 62.5 Mcg Blst.w.dev, 1 PUFF IN DAILY, (Reported) Patient Home Medication List Home Medication List Reviewed: Yes Review of Systems Review of Systems Constitutional: see HPI EENTM: no symptoms reported Respiratory: see HPI Cardiovascular: see HPI Gastrointestinal: see HPI Genitourinary: see HPI Musculoskeletal: no symptoms reported Skin: see HPI All Other Systems Reviewed Negative Unless Noted: Yes Past Myvgmya-Cidcik-Gtpvzv Hx Patient Social History Type Used: Cigarettes 2nd Hand Smoke Exposure: Yes Recent Hopitalizations: No Immunizations Up To Date Tetanus Booster (TDap): Unknown PED Vaccines UTD: No Date of Pneumonia Vaccine: May 12, 2012 Seasonal Allergies Seasonal Allergies: No Past Medical History Surgeries: Yes Appendectomy, Gallbladder, Hysterectomy Respiratory: Yes COPD Currently Using CPAP: No Currently Using BIPAP: No Cardiac: Yes Cardiomyopathy, Chronic Edema/Swelling, High Cholesterol, Hypertension Neurological: Yes Neuropathy Reproductive Disorders: No (partial hysterectomy of R side. ) Female Reproductive Disorders: Denies Sexually Transmitted Disease: No HIV/AIDS: No Genitourinary: Yes Kidney Infection, UTI-Chronic Gastrointestinal: Yes Gastroesophageal Reflux, Pancreatitis, Chronic Diarrhea Musculoskeletal: Yes Arthritis Endocrine: Yes Diabetes, Insulin dep HEENT: Yes Tinnitis Loss of Vision: Bilateral Hearing Impairment: Denies Cancer: No Psychosocial: Yes Anxiety, Depression Integumentary: No Blood Disorders: No Adverse Reaction/Blood Tranf: No Family Medical History Alcoholism G8 BROTHER Alzheimer's disease 19 MOTHER Arthritis 19 FATHER 19 MOTHER G8 BROTHER G8 BROTHER G8 BROTHER G8 BROTHER G8 BROTHER G8 SISTER G8 SISTER G8 SISTER G8 SISTER G8 SISTER G8 SISTER Asthma 19 FATHER 19 MOTHER G8 SISTER G8 SISTER Cancer of mouth Cardiovascular disease 19 FATHER 19 MOTHER G8 BROTHER G8 BROTHER G8 SISTER G8 SISTER Completed stroke 19 FATHER G8 SISTER G8 SISTER Dementia G8 BROTHER Diabetes mellitus 19 FATHER 19 MOTHER G8 BROTHER G8 BROTHER G8 BROTHER G8 BROTHER G8 BROTHER G8 SISTER G8 SISTER G8 SISTER G8 SISTER G8 SISTER G8 SISTER Glaucoma 19 MOTHER G8 SISTER G8 SISTER Hypercholesterolemia 19 FATHER 19 MOTHER Hypertension 19 FATHER 19 MOTHER G8 BROTHER G8 BROTHER G8 BROTHER G8 BROTHER G8 BROTHER G8 SISTER G8 SISTER G8 SISTER G8 SISTER G8 SISTER G8 SISTER Myocardial infarction 19 FATHER 19 MOTHER G8 BROTHER G8 BROTHER G8 SISTER G8 SISTER G8 SISTER Osteoporosis G8 SISTER Seizure disorder G8 BROTHER No Family History of: AIDS Abdominal aortic aneurysm Marvel's disease Aphasia Cataracts Colon cancer Congenital disease Congenital heart disease Coronary thrombosis Cystic fibrosis Deafness or hearing loss Drug abuse Dysphasia Fibrocystic disease of breast Gastroenteritis Headache disorder Infertility Kidney disease Neoplasm Parkinson's disease Prostate cancer Psychosocial problem Severe allergy Thyroid disease Tuberculosis Visual disorder Cancer Physical Exam Vital Signs Capillary Refill : Height, Weight, BMI Height: 5'9.00" Weight: 253lbs. 1.0oz. [id number]; 37.87 BMI Method:Stated General Appearance: No Apparent Distress, WD/WN HEENT: PERRL/EOMI, Pharynx Normal Neck: Full Range of Motion, Non Tender Respiratory: Other (lung sounds are diminished and with some crackles in the bases heard bilaterally) Cardiovascular: Regular Rate, Rhythm Gastrointestinal: Non Tender, Soft Genital/Rectal: Other (patient has significant erythema of the skin over the coccyx and entire perineal area. There are outreaching satellite lesions consistent with fungal infection. She does have likely at least stage I decubitus ulcer in the area as the redness does not improve. Some of the fungal lesions do coalesce and form small areas of skin breakdown as well. The erythema extends over the labia anteriorly) Extremity: Normal Capillary Refill, No Pedal Edema Neurologic/Psychiatric: Alert, Oriented x3, No Motor/Sensory Deficits Skin: Other (as described above) Focused Exam Lactate Level 10/17/19 15:13: Lactic Acid Level 1.83 Lactic Acid Level Laboratory Tests Test 10/17/19 15:13 Lactic Acid Level 1.83 MMOL/L (0.50-2.00) Procedures/Interventions Suture Size: 4-0 Progress/Results/Core Measures Suspected Sepsis SIRS Temperature: Pulse: Respiratory Rate: Laboratory Tests 10/17/19 13:30: White Blood Count 23.7H Blood Pressure / Mean: 10/17/19 15:13: Lactic Acid Level 1.83 Laboratory Tests 10/17/19 13:30: Creatinine 0.68, Platelet Count 444H, Total Bilirubin 0.2 Results/Orders Lab Results Laboratory Tests Test 10/17/19 13:30 10/17/19 15:13 10/17/19 15:45 Range/Units White Blood Count 23.7 H 4.3-11.0 10^3/uL Red Blood Count 4.05 L 4.35-5.85 10^6/uL Hemoglobin 11.3 L 11.5-16.0 G/DL Hematocrit 35 35-52 % Mean Corpuscular Volume 86 80-99 FL Mean Corpuscular Hemoglobin 28 25-34 PG Mean Corpuscular Hemoglobin Concent 32 32-36 G/DL Red Cell Distribution Width 16.2 H 10.0-14.5 % Platelet Count 444 H 130-400 10^3/uL Mean Platelet Volume 10.9 H 7.4-10.4 FL Neutrophils (%) (Auto) 81 H 42-75 % Lymphocytes (%) (Auto) 12 12-44 % Monocytes (%) (Auto) 4 0-12 % Eosinophils (%) (Auto) 0 0-10 % Basophils (%) (Auto) 0 0-10 % Neutrophils # (Auto) 19.2 H 1.8-7.8 X 10^3 Lymphocytes # (Auto) 2.8 1.0-4.0 X 10^3 Monocytes # (Auto) 1.0 0.0-1.0 X 10^3 Eosinophils # (Auto) 0.1 0.0-0.3 10^3/uL Basophils # (Auto) 0.1 0.0-0.1 10^3/uL Neutrophils % (Manual) 69 % Lymphocytes % (Manual) 20 % Monocytes % (Manual) 3 % Eosinophils % (Manual) 0 % Basophils % (Manual) 0 % Band Neutrophils 8 % Anisocytosis SLIGHT Sodium Level 136 135-145 MMOL/L Potassium Level 3.9 3.6-5.0 MMOL/L Chloride Level 91 L 98-107 MMOL/L Carbon Dioxide Level 20 L 21-32 MMOL/L Anion Gap 25 H 5-14 MMOL/L Blood Urea Nitrogen 21 H 7-18 MG/DL Creatinine 0.68 0.60-1.30 MG/DL Estimat Glomerular Filtration Rate > 60 BUN/Creatinine Ratio 31 Glucose Level 321 H 70-105 MG/DL Calcium Level 9.1 8.5-10.1 MG/DL Total Bilirubin 0.2 0.1-1.0 MG/DL Direct Bilirubin < 0.2 0.0-0.3 MG/DL Indirect Bilirubin 0.0 MG/DL Aspartate Amino Transf (AST/SGOT) 13 5-34 U/L Alanine Aminotransferase (ALT/SGPT) 11 0-55 U/L Alkaline Phosphatase 120 40-136 U/L Troponin I < 0.30 <0.30 NG/ML Pro-B-Type Natriuretic Peptide 3498.0 H <75.0 PG/ML Total Protein 7.1 6.4-8.2 GM/DL Albumin 2.7 L 3.2-4.5 GM/DL Lactic Acid Level 1.83 0.50-2.00 MMOL/L Urine Color YELLOW Urine Clarity CLOUDY Urine pH 5.0 5-9 Urine Specific [place] 1.010 L 1.016-1.022 Urine Protein NEGATIVE NEGATIVE Urine Glucose (UA) 3+ H NEGATIVE Urine Ketones 3+ H NEGATIVE Urine Nitrite NEGATIVE NEGATIVE Urine Bilirubin NEGATIVE NEGATIVE Urine Urobilinogen 0.2 < = 1.0 MG/DL Urine Leukocyte Esterase 1+ H NEGATIVE Urine RBC (Auto) 1+ H NEGATIVE Urine RBC 2-5 H /HPF Urine WBC >100 H /HPF Urine Squamous Epithelial Cells 2-5 /HPF Urine Crystals NONE /LPF Urine Bacteria TRACE /HPF Urine Casts NONE /LPF Urine Mucus NEGATIVE /LPF Urine Yeast MODERATE H /HPF Urine Culture Indicated CULTURE PENDING My Orders Orders - QUENTIN HERRERA DO Ed Iv/Invasive Line Start (10/17/19 13:23) Cbc With Automated Diff (10/17/19 13:23) Basic Metabolic Panel (10/17/19 13:23) Troponin I Fs (10/17/19 13:23) Probnp Fs (10/17/19 13:23) Fentanyl Injection (Sublimaze Injection (10/17/19 13:30) Ekg Tracing (10/17/19 13:23) Chest 1 View Ap/Pa Only (10/17/19 13:23) Ns Iv 500 Ml (Sodium Chloride 0.9%) (10/17/19 13:30) Nystatin Cream (Mycostatin Cream) (10/17/19 21:00) Nystatin Cream (Mycostatin Cream) (10/17/19 13:21) Manual Differential (10/17/19 13:30) Ns Iv 1000 Ml (Sodium Chloride 0.9%) (10/17/19 14:30) Blood Culture (10/17/19 14:28) Lactic Acid Analyzer (10/17/19 14:28) Blood Culture (10/17/19 14:50) Liver Panel (10/17/19 14:28) Urinalysis (10/17/19 14:28) Urine Culture (10/17/19 14:28) Meropenem (Merrem 1000 Mg) (10/17/19 14:30) Vancomycin Injection (Vancomycin Injecti (10/18/19 09:00) Meropenem (Merrem 500 Mg) (10/17/19 15:30) Water (Sterile) For Injection (Sterile W (10/17/19 15:30) Fentanyl Injection (Sublimaze Injection (10/17/19 15:45) Vancomycin Injection (Vancomycin Injecti (10/17/19 15:45) Ns (Ivpb) (Sodium Chloride 0.9%) (10/17/19 15:45) Vancomycin Injection (Vancomycin Injecti (10/17/19 15:48) Meropenem (Merrem 500 Mg) (10/17/19 15:54) Medications Given in ED Current Medications Medications Dose Ordered Sig/Jose Armando Route Start Time Stop Time Status Last Admin Dose Admin Fentanyl Citrate 50 mcg ONCE ONCE IVP 10/17/19 13:30 10/17/19 13:31 DC 10/17/19 14:29 50 MCG Meropenem 1000 mg/ Sterile Water 20 ml @ 240 mls/hr ONCE ONCE IV 10/17/19 14:30 10/17/19 14:41 DC 10/17/19 16:00 240 MLS/HR Vital Signs/I&O Capillary Refill : Progress Note : Progress Note Patient is evaluated on arrival to her room. The patient is crying out in discomfort, primarily only when she is moved or manipulated as her pain is coming from the coccyx and perineal area which is very inflamed and irritated. Patient is also incontinent of urine and stool on arrival to the ER. Nursing staff are cleaning her up. Given her episode of shortness of breath, will do a troponin, EKG, basic labs and chest x-ray. ED Summary: Patient is evaluated in the emergency department with complaints listed above. In the ER, she received 1 dose of fentanyl to help with pain. Nystatin ointment was applied to the skin areas which are the source of her pain. She was found to have mildly elevated BNP but no acute fluid overload on physical exam. Chest x-ray was unrevealing for significant worsening pneumonia bilaterally. The patient had oxygen saturations in the low 90s on 2-3 L of oxygen per nasal cannula during the ED course but she did not have any acute shortness of breath. She was given some IV fluids in the ER. I spoke to Dr. Urbina regarding admission for this patient to [facility] in [place]. The patient is accepted for admission to that facility. Pancultures are collected per hospitalist request and patient is started on vancomycin and meropenem. Bertrand catheter is placed to help protect skin of the perineum. Plan is for admission to [facility]. 16:40: EMS present to transport patient. ECG Initial ECG Impression Date: Oct 17, 2019 Initial ECG Impression Time: 14:55 Initial ECG Rate: 103 Initial ECG Impression: Normal Departure Impression Primary Impression: Stage 1 decubitus ulcer in diabetic patient Additional Impressions: Tinea corporis Pneumonia Disposition: ADMITTED INPATIENT Condition: Improved Departure-Patient Inst. Referrals: RAFA RAMOS MD (PCP) Primary Care Physician TOBY SMALLS APRN (Family) Primary Care Physician QUENTIN HERRERA DO Oct 17, 2019 12:50
[2019-10-17] MEDS ORDERED: NYSTATIN CREAM (MYCOSTATIN) 30 GM TUBE TP ONE (13:21)
[2019-10-17] MEDS: NYSTATIN CREAM (MYCOSTATIN) 30 GM TUBE TP SCH (13:30)
[2019-10-17] MEDS ORDERED: fentaNYL INJECTION 100 MCG/2 ML AMP IVP ONE ×2 (13:30→15:45)
[2019-10-17 13:44] LABS: BASOPHILS # (AUTO) 0.1 10^3/uL (0.0-0.1); BASOPHILS % (AUTO) 0 % (0-10); EOSINOPHILS # (AUTO) 0.1 10^3/uL (0.0-0.3); EOSINOPHILS % (AUTO) 0 % (0-10); HEMATOCRIT 35 % (35-52); HEMOGLOBIN 11.3 G/DL (11.5-16.0); LYMPHOCYTES # (AUTO) 2.8 X 10^3 (1.0-4.0); LYMPHOCYTES % (AUTO) 12 % (12-44); MEAN CORPUSCULAR HEMOGLOBIN 28 PG (25-34); MEAN CORPUSCULAR HGB CONC 32 G/DL (32-36); MEAN CORPUSCULAR VOLUME 86 FL (80-99); MEAN PLATELET VOLUME 10.9 FL (7.4-10.4); MONOCYTES % (AUTO) 4 % (0-12); NEUTROPHILS # (AUTO) 19.2 X 10^3 (1.8-7.8); NEUTROPHILS % (AUTO) 81 % (42-75); PLATELET COUNT 444 10^3/uL (130-400); RED CELL DISTRIBUTION WIDTH 16.2 % (10.0-14.5); WHITE BLOOD COUNT 23.7 10^3/uL (4.3-11.0)
[2019-10-17 13:59] LABS: ANISOCYTOSIS SLIGHT; BAND NEUTROPHILS 8 %; BASOPHILS % (MANUAL) 0 %; EOSINOPHILS % (MANUAL) 0 %; LYMPHOCYTES % (MANUAL) 20 %; MONOCYTES % (MANUAL) 3 %; NEUTROPHILS % (MANUAL) 69 %
--- NOTE | 2019-10-17 14:00 | Diagnostic Imaging Report ---
INDICATION: Shortness of breath. COMPARISON: October 12, 2019 TECHNIQUE: Single radiograph of the chest dated October 17, 2019. FINDINGS: The cardiac silhouette is stable. Pulmonary vasculature is obscured. Extensive bilateral pulmonary infiltrates are identified, significantly increased since the prior examination. This is greatest within the right lung base. No significant pleural effusion. No pneumothorax. No acute osseous abnormality. IMPRESSION: Significantly worsening extensive bilateral pulmonary infiltrates, right greater than left. Dictated by: Dictated on workstation # [id number]
[2019-10-17 14:10] LABS: BUN/CREATININE RATIO 31; CALCIUM 9.1 MG/DL (8.5-10.1); CARBON DIOXIDE 20 MMOL/L (21-32); CHLORIDE 91 MMOL/L (98-107); CREATININE SERUM 0.68 MG/DL (0.60-1.30); GFR ESTIMATED > 60; GLUCOSE 321 MG/DL (70-105); POTASSIUM 3.9 MMOL/L (3.6-5.0); SODIUM 136 MMOL/L (135-145)
[2019-10-17] MEDS: NS IV 500 ML 500 ML IV SCH (14:29)
[2019-10-17] MEDS ORDERED: MEROPENEM 1,000 MG in WATER (STERILE) FOR INJECTION 20 ML IV ONE (14:30)
[2019-10-17] MEDS ORDERED: NS IV 1000 ML 1,000 ML IV SCH (14:30)
[2019-10-17] MEDS ORDERED: WATER (STERILE) FOR INJECTION 10 ML ONE (15:30)
[2019-10-17] MEDS ORDERED: MEROPENEM 500 MG VIAL (MERREM) IV ONE ×2 (15:30→15:54)
[2019-10-17] MEDS ORDERED: NS (IVPB) 0 ML ONE (15:45)
[2019-10-17] MEDS ORDERED: VANCOMYCIN 1000 MG/VIAL ONE ×3 (15:45→23:13)
[2019-10-17 15:48] LABS: ALANINE AMINOTRANSFERASE 11 U/L (0-55); ALBUMIN 2.7 GM/DL (3.2-4.5); ALKALINE PHOSPHATASE 120 U/L (40-136); BILIRUBIN,DIRECT < 0.2 MG/DL (0.0-0.3); BILIRUBIN,TOTAL 0.2 MG/DL (0.1-1.0); TOTAL PROTEIN 7.1 GM/DL (6.4-8.2)
[2019-10-17 15:57] LABS: BACTERIA,URINE TRACE /HPF; BILIRUBIN,URINE NEGATIVE (NEGATIVE); CLARITY,URINE CLOUDY; COLOR,URINE YELLOW; GLUCOSE, URINE (UA) 3+ (NEGATIVE); KETONES,URINE 3+ (NEGATIVE); LEUKOCYTE ESTERASE ,URINE 1+ (NEGATIVE); NITRITE,URINE NEGATIVE (NEGATIVE); PROTEIN,URINE NEGATIVE (NEGATIVE); WBC,URINE >100 /HPF
[2019-10-17 15:58] LABS: YEAST,URINE MODERATE /HPF
[2019-10-17 17:28] VITALS: BP 141/73
[2019-10-17 17:45] VITALS: BP 129/71
[2019-10-17 18:00] VITALS: BP 152/87
[2019-10-17 18:15] VITALS: BP 150/101
[2019-10-17] MEDS ORDERED: ACETAMINOPHEN 500 MG TAB (TYLENOL) PO PRN ×2 (18:30→18:45)
--- NOTE | 2019-10-17 18:30 | NUR ---
THIS NURSE NOTIFIED DR URBINA PT SCORED A 10 ON DVT ASSESSMENT. SEE ORDER HX. THIS NURSE ALSO NOTIFIED DR URBINA PT FLAGGED SEPSIS. DR URBINA TO PUT IN ORDERS. WILL CONTINUE TO MONITOR.
[2019-10-17] MEDS ORDERED: MELATONIN 3 MG TABLET PO PRN (18:45)
[2019-10-17] MEDS ORDERED: DOCUSATE SODIUM 100 MG (COLACE) CAP PO PRN (18:45)
[2019-10-17] MEDS ORDERED: CALCIUM CARBONATE 500 MG (TUMS) TAB.CHEW PO PRN (18:45)
[2019-10-17] MEDS ORDERED: NON-FORMULARY MEDICATION 1 EA EA (Melatonin 10 MG) PO PRN (18:45)
[2019-10-17] MEDS ORDERED: FLUTICASONE NASAL SPRAY (FLONASE) 16 GM BTL NS PRN (18:45)
[2019-10-17] MEDS ORDERED: ONDANSETRON 4 MG (ZOFRAN) ORAL DISSOLVE TAB PO PRN (18:45)
[2019-10-17] MEDS ORDERED: diphenhydrAMINE 25 MG TAB (BENADRYL) PO PRN (18:45)
[2019-10-17] MEDS ORDERED: ONDANSETRON 4 MG/2 ML (SDV) Z0FRAN IVP PRN (18:45)
[2019-10-17 20:00] VITALS: BP 126/61
[2019-10-17] MEDS: AMITRIPTYLINE 25 MG (ELAVIL) TAB PO SCH (20:17)
[2019-10-17] MEDS: APIXABAN 5 MG (ELIQUIS) TABLET PO SCH (20:17)
[2019-10-17] MEDS: ROSUVASTATIN 20 MG (CRESTOR) TABLET PO SCH (20:17)
[2019-10-17] MEDS: CYCLOBENZAPRINE 10 MG (FLEXERIL) TAB PO SCH (20:17)
[2019-10-17] MEDS: PREGABALIN 150 MG (LYRICA) CAPSULE PO SCH (20:17)
[2019-10-17] MEDS: SENNA W/DOCUSATE (SENOKOT S) TABLET PO SCH (20:18)
[2019-10-17] MEDS: ALPRAZolam 0.25 MG (XANAX) TAB PO PRN (20:18)
[2019-10-17] MEDS: morphine INJ 4 MG/ML 1 ML (VIAL/SYRINGE) IVP PRN (20:18)
[2019-10-17] MEDS: inSUlin ASPART (NovoLOG) 1 UNIT/0.01 ML (CHARGE PER UNIT) SQ SCH (20:19)
[2019-10-17 20:40] LABS: ABG BASE EXCESS -2.5 MMOL/L (-2.5-2.5); ABG OXYGEN SATURATION 89 % (94-100); ABG PCO2 35 MMHG (35-45); ABG PO2 62 MMHG (79-93); ABG TCO2 22.8 MMOL/L (21.0-31.0)
[2019-10-17 20:43] LABS: ALLENS TEST YES-POS; INSPIRED O2 7L; PATIENT TEMP 36.4; VENTILATOR NO
[2019-10-17] MEDS ORDERED: ENOXAPARIN 40 MG/0.4 ML (LOVENOX) SYR SC SCH (21:00)
[2019-10-17] MEDS ORDERED: SENNA W/DOCUSATE (SENOKOT S) TABLET PO SCH (21:00)
[2019-10-17] MEDS: HYDROcodone/APAP 5 MG/325 MG (LORTAB) TAB PO PRN (22:25)
[2019-10-17] MEDS ORDERED: VANCOMYCIN 750 MG/VIAL IV ONE (23:13)
[2019-10-17] MEDS: MEROPENEM 1,000 MG/SWFI 20 ML IV PUSH IV SCH ×2 (23:31)
[2019-10-18] VITALS: BP 120/49
[2019-10-18] MEDS ORDERED: VANCOMYCIN 1,750 MG/NS 500 ML IVPB IV SCH ×2
[2019-10-18] MEDS: RT-ADVAIR HFA 115/21 MCG PER PUFF IH SCH ×3 (03:40→19:49)
[2019-10-18 03:51] LABS: BASOPHILS % (AUTO) 0 % (0-10); EOSINOPHILS # (AUTO) 0.1 10^3/uL (0.0-0.3); EOSINOPHILS % (AUTO) 1 % (0-10); HEMATOCRIT 30 % (35-52); HEMOGLOBIN 9.4 G/DL (11.5-16.0); LYMPHOCYTES # (AUTO) 2.1 X 10^3 (1.0-4.0); LYMPHOCYTES % (AUTO) 12 % (12-44); MEAN CORPUSCULAR HEMOGLOBIN 27 PG (25-34); MEAN CORPUSCULAR HGB CONC 32 G/DL (32-36); MEAN CORPUSCULAR VOLUME 86 FL (80-99); MEAN PLATELET VOLUME 10.4 FL (7.4-10.4); MONOCYTES % (AUTO) 6 % (0-12); NEUTROPHILS % (AUTO) 81 % (42-75); PLATELET COUNT 371 10^3/uL (130-400); RED CELL DISTRIBUTION WIDTH 16.3 % (10.0-14.5); WHITE BLOOD COUNT 17.2 10^3/uL (4.3-11.0)
[2019-10-18 04:00] VITALS: BP 121/62
[2019-10-18 04:11] LABS: ALANINE AMINOTRANSFERASE 10 U/L (0-55); ALBUMIN 2.4 GM/DL (3.2-4.5); ALKALINE PHOSPHATASE 97 U/L (40-136); BILIRUBIN,TOTAL 0.2 MG/DL (0.1-1.0); BUN/CREATININE RATIO 19; CALCIUM 8.3 MG/DL (8.5-10.1); CARBON DIOXIDE 23 MMOL/L (21-32); CHLORIDE 101 MMOL/L (98-107); CREATININE SERUM 0.79 MG/DL (0.60-1.30); GFR ESTIMATED > 60; GLUCOSE 167 MG/DL (70-105); MAGNESIUM 1.5 MG/DL (1.6-2.4); PHOSPHORUS 2.8 MG/DL (2.3-4.7); POTASSIUM 3.1 MMOL/L (3.6-5.0); SODIUM 135 MMOL/L (135-145); TOTAL PROTEIN 5.8 GM/DL (6.4-8.2)
[2019-10-18] MEDS: POTASSIUM CL 10MEQ/50ML IVPB 50 ML IV SCH (05:56)
[2019-10-18] MEDS: KCL 20 MEQ TAB (K-DUR) PO SCH (05:57)
[2019-10-18] MEDS: MAGNESIUM 1 GM/100 ML IVPB 100 ML IV SCH ×3 (05:58→08:11)
[2019-10-18] MEDS ORDERED: NS IV 1000 ML 1,000 ML ONE (06:01)
[2019-10-18] MEDS: NS IV 500 ML 500 ML IV SCH (06:10)
[2019-10-18] MEDS: inSUlin ASPART (NovoLOG) 1 UNIT/0.01 ML (CHARGE PER UNIT) SQ SCH ×3 (06:10→16:29)
[2019-10-18] MEDS: MEROPENEM 1,000 MG/SWFI 20 ML IV PUSH IV SCH ×6 (06:11→23:17)
[2019-10-18] MEDS: PANTOPRAZOLE 40 MG (PROTONIX) TAB PO SCH (06:11)
[2019-10-18] MEDS: HYDROcodone/APAP 5 MG/325 MG (LORTAB) TAB PO PRN ×2 (06:12→11:23)
--- NOTE | 2019-10-18 06:58 | Pulmonary Consultation ---
History of Present Illness History of Present Illness Date Seen by Provider: Oct 18, 2019 Time Seen by Provider: 08:02 Date of Admission History of Present Illness 54yo with recent hospitalization was discharged 10/12/19 secondary to pneumonia and hx of oxygen dependant 2-3 liters/min COPDpresented to ED via EMS secondary to worsening SOB. PT declined jail at last hospitalization. Allergies and Home Medications Allergies Coded Allergies: sulfamethoxazole (Verified Allergy, Severe, JOINTS HURT, 12/21/18) trimethoprim (Verified Allergy, Severe, JOINTS HURT, 12/21/18) influenza virus vaccine, specific (Unverified Allergy, Intermediate, rash, 09/23/18) aspirin (Unverified Allergy, Unknown, convulsions, 09/23/18) metformin (Verified Adverse Reaction, Intermediate, joint pain, 09/23/18) hydromorphone HCl (Unverified Adverse Reaction, Mild, VOMITING, 01/06/11) Home Medications Albuterol Sulfate 1 Puff Puff, 2 PUFF IH QID PRN for SHORTNESS OF BREATH, (R eported) Amitriptyline HCl 75 Mg Tablet, 75 MG PO HS, (Reported) Apixaban 5 Mg Tablet, 5 MG PO BID, (Reported) Cefdinir 300 Mg Capsule, 300 MG PO BID Prescribed by: DEANDRE CUEVAS on 10/14/19 1052 Cyclobenzaprine HCl 10 Mg Tablet, 10 MG PO TID, (Reported) Dapagliflozin Propanediol 10 Mg Tablet, 10 MG PO DAILY, (Reported) Dulaglutide 0.75 Mg/0.5 Ml Pen.injctr, 0.75 MG SC Tu, (Reported) Fluticasone Propionate 16 Gm [place].susp, 2 SPRAYS NS DAILY PRN for CONGESTION, (Reported) Fluticasone/Salmeterol 12 Gm Hfa.aer.ad, 0 PUFF IH BID@ Prescribed by: DARRELL URBINA on 09/11/19 1116 Furosemide 40 Mg Tablet, 40 MG PO DAILY, (Reported) Glucagon,Human Recombinant 1 Mg/Kit Soln, SC UD PRN for HYPOGLYCEMIA, (Reported) Hydroxyzine HCl 50 Mg Tablet, 50 MG PO BID PRN for ANXIETY, (Reported) Insulin Aspart 300 Units/3 Ml Solution, 50 UNITS SQ TIDAC, (Reported) Insulin Detemir 100 Unit/1 Ml Insuln.pen, 80 UNIT SQ BID, (Reported) Losartan Potassium 25 Mg Tablet, 25 MG PO DAILY, (Reported) Melatonin 10 Mg Tablet, 10 MG PO HS PRN for SLEEP, (Reported) Meloxicam 15 Mg Tablet, 15 MG PO DAILY, (Reported) [place] 3 Polyunsat Fatty Acids 1,000 Mg Cap, 1,000 MG PO HS, (Reported) Omeprazole 40 Mg Capsule.dr, 40 MG PO DAILY, (Reported) Oxybutynin Chloride 5 Mg Tab.er.24, 5 MG PO DAILY, (Reported) Potassium Chloride 20 Meq Tab.er.prt, 20 MEQ PO DAILY, (Reported) Pregabalin 150 Mg Capsule, 150 MG PO TID, (Reported) Rosuvastatin Calcium 40 Mg Tablet, 40 MG PO DAILY, (Reported) Sennosides/Docusate Sodium 1 Each Tablet, 1 EACH PO BID Prescribed by: DARRELL URBINA on 09/11/19 1116 Sitagliptin Phosphate 100 Mg Tablet, 100 MG PO DAILY, (Reported) Sumatriptan Succinate 50 Mg Tablet, 50 MG PO UD PRN for MIGRAINE, (Reported) TAKE 1 TAB AT ONSET OF MIGRAINE, IF SYMPTOMS PERSIST AFTER 2 HOURS TAKE AN ADDITIONAL TABLET Umeclidinium [place] 62.5 Mcg Blst.w.dev, 1 PUFF IN DAILY, (Reported) Past Pqwauwj-Jkdsvi-Qpnbrz Hx Patient Social History Alcohol Use: Denies Use Recreational Drug Use: No Smoking Status: Current Everyday Smoker Type Used: Cigarettes 2nd Hand Smoke Exposure: Yes Recent Foreign Travel: No Contact w/Someone Who Travel: No Recent Infectious Disease Expo: No Recent Hopitalizations: No Physical Abuse: No Sexual Abuse: No Mistreated: No Fear: No Immunizations Up To Date Tetanus Booster (TDap): Unknown PED Vaccines UTD: No Date of Pneumonia Vaccine: May 12, 2012 Seasonal Allergies Seasonal Allergies: No Past Medical History Surgeries: Yes Appendectomy, Gallbladder, Hysterectomy Respiratory: Yes COPD Currently Using CPAP: No Currently Using BIPAP: No Cardiac: Yes Cardiomyopathy, Chronic Edema/Swelling, High Cholesterol, Hypertension Neurological: Yes Neuropathy : No Reproductive Disorders: No (partial hysterectomy of R side. ) Female Reproductive Disorders: Denies Sexually Transmitted Disease: No HIV/AIDS: No Genitourinary: Yes Kidney Infection, UTI-Chronic Gastrointestinal: Yes Gastroesophageal Reflux, Pancreatitis, Chronic Diarrhea Musculoskeletal: Yes Arthritis Endocrine: Yes Diabetes, Insulin dep HEENT: Yes Tinnitis Loss of Vision: Bilateral Hearing Impairment: Denies Cancer: No Psychosocial: Yes Anxiety, Depression Integumentary: No Blood Disorders: No Adverse Reaction/Blood Tranf: No Family Medical History Alcoholism G8 BROTHER Alzheimer's disease 19 MOTHER Arthritis 19 FATHER 19 MOTHER G8 BROTHER G8 BROTHER G8 BROTHER G8 BROTHER G8 BROTHER G8 SISTER G8 SISTER G8 SISTER G8 SISTER G8 SISTER G8 SISTER Asthma 19 FATHER 19 MOTHER G8 SISTER G8 SISTER Cancer of mouth Cardiovascular disease 19 FATHER 19 MOTHER G8 BROTHER G8 BROTHER G8 SISTER G8 SISTER Completed stroke 19 FATHER G8 SISTER G8 SISTER Dementia G8 BROTHER Diabetes mellitus 19 FATHER 19 MOTHER G8 BROTHER G8 BROTHER G8 BROTHER G8 BROTHER G8 BROTHER G8 SISTER G8 SISTER G8 SISTER G8 SISTER G8 SISTER G8 SISTER Glaucoma 19 MOTHER G8 SISTER G8 SISTER Hypercholesterolemia 19 FATHER 19 MOTHER Hypertension 19 FATHER 19 MOTHER G8 BROTHER G8 BROTHER G8 BROTHER G8 BROTHER G8 BROTHER G8 SISTER G8 SISTER G8 SISTER G8 SISTER G8 SISTER G8 SISTER Myocardial infarction 19 FATHER 19 MOTHER G8 BROTHER G8 BROTHER G8 SISTER G8 SISTER G8 SISTER Osteoporosis G8 SISTER Seizure disorder G8 BROTHER No Family History of: AIDS Abdominal aortic aneurysm [place]'s disease Aphasia Cataracts Colon cancer Congenital disease Congenital heart disease Coronary thrombosis Cystic fibrosis Deafness or hearing loss Drug abuse Dysphasia Fibrocystic disease of breast Gastroenteritis Headache disorder Infertility Kidney disease Neoplasm Parkinson's disease Prostate cancer Psychosocial problem Severe allergy Thyroid disease Tuberculosis Visual disorder Cancer Review of Systems Time Seen by Provider: 13:08 Constitutional: Fever, Chills, Sweats, Weakness, Malaise, Other Eyes: No: Pain, Vision change, Conjunctivae inflammation, Eyelid inflammation, Other, Redness ENT: No: Ear pain, Ear discharge, Nose pain, Nose discharge, Nose congestion, Mouth pain, Mouth swelling, Throat pain, Throat swelling, Other Respiratory: Cough, Dry, Shortness of breath, SOB with excertion, Wheezing; No: Hemoptysis Cardiovascular: Palpitations, Paroxysmal Noc. Dyspnea; No: Chest Pain, Orthopnea, Edema, Lt Headedness, Other Gastrointestinal: No: Nausea, Vomiting, Abdominal Pain, Diarrhea, Constipation, Melena, Hematochezia, Other Sepsis Event Evaluation Height, Weight, BMI Height: 5'9.00" Weight: 253lbs. 1.0oz. 114.599700yf; 38.95 BMI Method:Stated Exam Exam Vital Signs Date Time Temp Pulse Resp B/P (MAP) Pulse Ox O2 Delivery O2 Flow Rate FiO2 10/18/19 04:00 36.9 95 25 121/62 (81) 93 High Flow N/C 7.00 10/18/19 04:00 92 High Flow N/C 7.00 10/18/19 00:59 98 10/18/19 00:00 94 High Flow N/C 7.00 10/18/19 00:00 36.7 98 25 120/49 (72) 93 High Flow N/C 7.00 10/17/19 23:50 91 Nasal Cannula 7.00 10/17/19 20:00 93 High Flow N/C 7.00 10/17/19 20:00 105 19 126/61 (82) 91 High Flow N/C 9.00 10/17/19 20:00 36.4 10/17/19 19:04 105 10/17/19 18:15 108 150/101 (117) 93 High Flow N/C 9.00 10/17/19 18:00 108 152/87 (108) 96 High Flow N/C 9.00 10/17/19 17:45 105 129/71 (90) 89 High Flow N/C 9.00 10/17/19 17:40 93 High Flow N/C 9.00 10/17/19 17:28 36.4 106 22 141/73 (95) 93 High Flow N/C 9.00 10/17/19 16:30 36.5 105 24 139/46 (69) 91 Nasal Cannula 5.00 10/17/19 15:40 36.6 103 25 133/37 (69) 90 Room Air 2.00 I & O 10/18/19 07:00 Intake Total 2690 ml Output Total 2700 ml Balance -10 ml Height & Weight Height: 5'9.00" Weight: 253lbs. 1.0oz. 114.986166fh; 38.95 BMI Method:Stated General Appearance: WD/WN, Anxious, Mild Distress, Obese HEENT: PERRL/EOMI, Pharynx Normal Neck: Full Range of Motion, Non Tender Respiratory: Decreased Breath Sounds, Other (lung sounds are diminished and with some crackles in the bases heard bilaterally) Cardiovascular: Regular Rate, Rhythm Capillary Refill: Less Than 3 Seconds Extremity: Normal Capillary Refill, No Pedal Edema Neurologic/Psychiatric: Alert, Oriented x3, No Motor/Sensory Deficits Skin: Normal Color, Warm/Dry, Other (as described above) Lymphatic: No Adenopathy Results Lab Laboratory Tests 10/17/19 13:30 10/18/19 03:41 Assessment/Plan Assessment/Plan Pneumonia with sepsis and hypoxia - not severe sepsis -continue abx and oxygen -Await cultures -Give Bumex x1 -Influenza is negative Hypokalemia -Replace oxygen dependent COPD 2-3 liters/min CAD DM Stage 1 decubitus ulcer in diabetic patient STEFANIE STARKS DO Oct 18, 2019 06:57
[2019-10-18] MEDS ORDERED: BUMETANIDE 1 MG/4 ML (BUMEX) VIAL IV ONE (07:00)
[2019-10-18] MEDS ORDERED: KCL 20 MEQ TAB (K-DUR) PO ONE ×3 (07:00→11:00)
--- NOTE | 2019-10-18 07:51 | NUR ---
Vancomycin - Patient received 1750mg loading dose, will resume with 1250mg every 8 hours. Trough ordered for 10/18 @ 0700.
[2019-10-18 08:07] VITALS: BP 120/59
[2019-10-18] MEDS: MELOXICAM 7.5 MG (MOBIC) TABLET PO SCH (08:11)
[2019-10-18] MEDS: PREGABALIN 150 MG (LYRICA) CAPSULE PO SCH ×3 (08:12→20:45)
[2019-10-18] MEDS: SENNA W/DOCUSATE (SENOKOT S) TABLET PO SCH ×2 (08:12→19:51)
[2019-10-18] MEDS: OXYBUTYNIN (DITROPAN) 5 MG TAB PO SCH ×2 (08:12→20:45)
[2019-10-18] MEDS: LOSARTAN 25 MG (COZAAR) TAB PO SCH (08:12)
[2019-10-18] MEDS: APIXABAN 5 MG (ELIQUIS) TABLET PO SCH ×2 (08:12→20:45)
[2019-10-18] MEDS: LINAGLIPTIN (TRADJENTA) 5 MG TABLET PO SCH (08:13)
[2019-10-18] MEDS: CYCLOBENZAPRINE 10 MG (FLEXERIL) TAB PO SCH ×3 (08:13→20:45)
[2019-10-18] MEDS: VANCOMYCIN 1250 MG/NS 250 ML IVPB IV SCH ×4 (08:24→16:29)
[2019-10-18] MEDS ORDERED: VANCOMYCIN INJECTION 1,750 MG in NS IV 500 ML 500 ML IV SCH (09:00)
[2019-10-18] MEDS ORDERED: NON-FORMULARY MEDICATION 1 EA EA (Dapagliflozin Propanediol (Farxiga) 10 MG) PO SCH (09:00)
[2019-10-18] MEDS ORDERED: OXYBUTYNIN ER 5 MG (DITROPAN XL) TAB NON-FORMULARY PO SCH (09:00)
--- NOTE | 2019-10-18 09:45 | History & Physical-Hospitalist ---
History of Present Illness HPI/Chief Complaint CC: Recurrent PNA HPI: This is a 54yoWF clinic patient of [facility] known to me from multiple hospital stays most recent DC Saturday for PNA after she refused NH placement and went home and just sat in her recliner and had fecal and urinary incontinence because she was too weak to get up. She has since experienced periarea pain from chafing and yeast involvement and hypoxia and elevated wbc from recurrent PNA. DM will be managed along with other home meds along with Dr Parmar consultation for elevated BNP. Source: patient, RN/MD, old records Exam Limitations: no limitations Date Seen 10/18/19 Time Seen by a Provider: 09:45 Attending Physician Kendra Iqbal DO [facility] Referring Physician Date of Admission Oct 17, 2019 at 15:00 Home Medications & Allergies Home Medications Reviewed patient Home Medication Reconciliation performed by pharmacy medication reconciliations plasma center technician and/or nursing. Patients Allergies have been reviewed. Allergies Allergies Coded Allergies sulfamethoxazole (Verified Allergy, Severe, JOINTS HURT, 12/21/18) trimethoprim (Verified Allergy, Severe, JOINTS HURT, 12/21/18) influenza virus vaccine, specific (Unverified Allergy, Intermediate, rash, 09/23/18) aspirin (Unverified Allergy, Unknown, convulsions, 09/23/18) metformin (Verified Adverse Reaction, Intermediate, joint pain, 09/23/18) hydromorphone HCl (Unverified Adverse Reaction, Mild, VOMITING, 01/06/11) Past Jbfzzyn-Izknne-Kfinoq Hx Past Med/Social Hx: Reviewed Nursing Past Med/Soc Hx, Reviewed and Corrections made Patient Social History Marrital Status: single Employed/Student: unemployed Alcohol Use: Denies Use Recreational Drug Use: No Smoking Status: Current Everyday Smoker Type Used: Cigarettes 2nd Hand Smoke Exposure: Yes Recent Foreign Travel: No Contact w/other who traveled: No Recent Hopitalizations: No Recent Infectious Disease Expo: No Immunizations Up To Date Tetanus Booster (TDap): Unknown Pediatric: No Date of Pneumonia Vaccine: May 12, 2012 Seasonal Allergies Seasonal Allergies: No Past Medical History Surgeries: Appendectomy, Gallbladder, Hysterectomy Respiratory: Asthma, COPD, Emphysema, Pneumonia Currently Using CPAP: No Currently Using BIPAP: No Cardiac: Atrial Fibrillation, Cardiomyopathy, Chronic Edema/Swelling, Coronary Artery Disease, High Cholesterol, Hypertension Neurological: Neuropathy : No Reproductive: No (partial hysterectomy of R side. ) Sexually Transmitted Disease: No HIV/AIDS: No Female Reproductive Disorders: Denies Genitourinary: Kidney Infection, UTI-Chronic Gastrointestinal: Gastroesophageal Reflux, Pancreatitis, Chronic Diarrhea Musculoskeletal: Arthritis Endocrine: Diabetes, Insulin dep HEENT: Tinnitis Loss of Vision: Bilateral Hearing Impairment: Denies Psychosocial: Anxiety, Depression History of Blood Disorders: No Adverse Reaction to Blood Carlson: No Family History Alcoholism G8 BROTHER Alzheimer's disease 19 MOTHER Arthritis 19 FATHER 19 MOTHER G8 BROTHER G8 BROTHER G8 BROTHER G8 BROTHER G8 BROTHER G8 SISTER G8 SISTER G8 SISTER G8 SISTER G8 SISTER G8 SISTER Asthma 19 FATHER 19 MOTHER G8 SISTER G8 SISTER Cancer of mouth Cardiovascular disease 19 FATHER 19 MOTHER G8 BROTHER G8 BROTHER G8 SISTER G8 SISTER Completed stroke 19 FATHER G8 SISTER G8 SISTER Dementia G8 BROTHER Diabetes mellitus 19 FATHER 19 MOTHER G8 BROTHER G8 BROTHER G8 BROTHER G8 BROTHER G8 BROTHER G8 SISTER G8 SISTER G8 SISTER G8 SISTER G8 SISTER G8 SISTER Glaucoma 19 MOTHER G8 SISTER G8 SISTER Hypercholesterolemia 19 FATHER 19 MOTHER Hypertension 19 FATHER 19 MOTHER G8 BROTHER G8 BROTHER G8 BROTHER G8 BROTHER G8 BROTHER G8 SISTER G8 SISTER G8 SISTER G8 SISTER G8 SISTER G8 SISTER Myocardial infarction 19 FATHER 19 MOTHER G8 BROTHER G8 BROTHER G8 SISTER G8 SISTER G8 SISTER Osteoporosis G8 SISTER Seizure disorder G8 BROTHER No Family History of: AIDS Abdominal aortic aneurysm [place]'s disease Aphasia Cataracts Colon cancer Congenital disease Congenital heart disease Coronary thrombosis Cystic fibrosis Deafness or hearing loss Drug abuse Dysphasia Fibrocystic disease of breast Gastroenteritis Headache disorder Infertility Kidney disease Neoplasm Parkinson's disease Prostate cancer Psychosocial problem Severe allergy Thyroid disease Tuberculosis Visual disorder Cancer Review of Systems Constitutional: see HPI, dizziness, malaise, weakness Respiratory: cough, dyspnea on exertion Psychiatric/Neurological: See HPI Physical Exam Physical Exam Vital Signs Vital Signs - First Documented 10/17/19 15:40 Temp 36.6 Pulse 103 Resp 25 B/P (MAP) 133/37 (69) Pulse Ox 90 O2 Delivery Room Air O2 Flow Rate 2.00 Capillary Refill : Less Than 3 Seconds Height, Weight, BMI Height: 5'9.00" Weight: 253lbs. 1.0oz. 114.730041kv; 38.95 BMI Method:Stated General Appearance: No Apparent Distress, WD/WN, Chronically ill, Obese Eyes: Right Eye Normal Inspection, Right Eye PERRL HEENT: PERRL/EOMI, Normal ENT Inspection, Pharynx Normal, Moist Mucous Membranes Neck: Full Range of Motion, Normal Inspection, Non Tender Respiratory: Chest Non Tender, No Accessory Muscle Use, No Respiratory Distress, Crackles, Decreased Breath Sounds Cardiovascular: No Edema, No Gallop, No JVD, No Murmur, Normal Peripheral Pulses, Irregularly Irregular Gastrointestinal: Normal Bowel Sounds, No Organomegaly, No Pulsatile Mass, Non Tender, Soft Back: Normal Inspection, No CVA Tenderness, No Vertebral Tenderness Extremity: Normal Capillary Refill, Normal Inspection, Normal Range of Motion, Non Tender, No Calf Tenderness, No Pedal Edema Neurologic/Psychiatric: Alert, Oriented x3, No Motor/Sensory Deficits, Depressed Affect Skin: Normal Color, Warm/Dry Lymphatic: No Adenopathy Results Results/Procedures Labs Laboratory Tests 10/17/19 13:30 10/18/19 03:41 Patient resulted labs reviewed. 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
[2019-10-18 10:24] LABS: AMPHETAMINE SCREEN, URINE NEGATIVE (NEGATIVE); BARBITURATE SCREEN URINE NEGATIVE (NEGATIVE); BENZODIAZEPINES SCREEN URINE NEGATIVE (NEGATIVE); CANNABINOID SCREEN, URINE NEGATIVE (NEGATIVE); COCAINE SCREEN URINE NEGATIVE (NEGATIVE); METHADONE STAT NEGATIVE (NEGATIVE); METHAMPHETAMINE SCREEN URINE S NEGATIVE (NEGATIVE); OPIATE SCREEN URINE NEGATIVE (NEGATIVE); OXYCODONE STAT NEGATIVE (NEGATIVE); PROPOXYPHENE STAT NEGATIVE (NEGATIVE); TRICYCLIC ANTIDEPRESSANTS SCRE POSITIVE (NEGATIVE)
[2019-10-18] MEDS: UMECLIDINIUM BROMIDE (INCRUSE ELLIPTA) 7'S IH SCH (11:04)
[2019-10-18] MEDS: RT-ALBUTEROL/IPRATROPIUM 3 ML (DUONEB) VIAL INH SCH ×3 (11:04→19:44)
[2019-10-18] MEDS: NYSTATIN CREAM (MYCOSTATIN) 30 GM TUBE TP SCH ×4 (11:22→20:46)
--- NOTE | 2019-10-18 12:48 | Consultation-Cardiology ---
HPI-Cardiology Cardiology Consultation: Date of Consultation 10/18/19 Time Seen by a Provider: 12:10 Date of Admission Attending Physician Kendra Urbina DO Admitting Physician [place] Consulting Physician ARETHA ESCAMILLA MD, MA, FACP, FACC, [facility] [place] [facility] Physician requesting consult: Dr Urbina Primary dross skimmer: Dr Rodriguez HPI: Chief Complaint: Reason for Cardiology consultation: Elevated BNP HPI 54 yo woman, recently d/c'd from this hosp after admission of pneumonia, admitted now to Dr Urbina with increasing shortness of breath, cough productive of yellowish sputum, gen malaise and weakness and a feverish feeling. Denies cp or palp or syncope. Denies leg swelling or weakness. She states that she measured her oxygen sat prior to coming in to the hosp yesterday and found it to be in the 60s. Dr Urbina has asked us to see her because BNP was mildly elevated at admission. Review of Systems-Cardiology Review of Systems Constitutional: As described under HPI Eyes: No vision change Ears/Nose/Throat: No ear discharge, No nasal drainage, No recent hearing loss Respiratory: As described under HPI Cardiovascular: As described under HPI Gastrointestinal: No constipation, No diarrhea, No nausea, No vomiting Genitourinary: No dysuria, No hematuria, No urine frequency changes Musculoskeletal: back pain (chronic) Skin: No rash, No ulcerations Psychiatric/Neurological: No seizure, No focal weakness, No syncope Hematologic: No bleeding abnormalities All Other Systems Reviewed Negative Unless Noted: Yes KHO-Sanzlx-Hwkaxn Hx Patient Social History Alcohol Use: Denies Use Recreational Drug Use: No Smoking Status: Current Everyday Smoker Type Used: Cigarettes 2nd Hand Smoke Exposure: Yes Recent Foreign Travel: No Recent Infectious Disease Expo: No Hospitalization with Isolation: Denies Immunizations Up To Date Tetanus Booster (TDap): Unknown Date of Pneumonia Vaccine: May 12, 2012 Past Medical History PMH As described under Assessment. Family Medical History Family History: Alcoholism G8 BROTHER Alzheimer's disease 19 MOTHER Arthritis 19 FATHER 19 MOTHER G8 BROTHER G8 BROTHER G8 BROTHER G8 BROTHER G8 BROTHER G8 SISTER G8 SISTER G8 SISTER G8 SISTER G8 SISTER G8 SISTER Asthma 19 FATHER 19 MOTHER G8 SISTER G8 SISTER Cancer of mouth Cardiovascular disease 19 FATHER 19 MOTHER G8 BROTHER G8 BROTHER G8 SISTER G8 SISTER Completed stroke 19 FATHER G8 SISTER G8 SISTER Dementia G8 BROTHER Diabetes mellitus 19 FATHER 19 MOTHER G8 BROTHER G8 BROTHER G8 BROTHER G8 BROTHER G8 BROTHER G8 SISTER G8 SISTER G8 SISTER G8 SISTER G8 SISTER G8 SISTER Glaucoma 19 MOTHER G8 SISTER G8 SISTER Hypercholesterolemia 19 FATHER 19 MOTHER Hypertension 19 FATHER 19 MOTHER G8 BROTHER G8 BROTHER G8 BROTHER G8 BROTHER G8 BROTHER G8 SISTER G8 SISTER G8 SISTER G8 SISTER G8 SISTER G8 SISTER Myocardial infarction 19 FATHER 19 MOTHER G8 BROTHER G8 BROTHER G8 SISTER G8 SISTER G8 SISTER Osteoporosis G8 SISTER Seizure disorder G8 BROTHER No Family History of: AIDS Abdominal aortic aneurysm Havelock's disease Aphasia Cataracts Colon cancer Congenital disease Congenital heart disease Coronary thrombosis Cystic fibrosis Deafness or hearing loss Drug abuse Dysphasia Fibrocystic disease of breast Gastroenteritis Headache disorder Infertility Kidney disease Neoplasm Parkinson's disease Prostate cancer Psychosocial problem Severe allergy Thyroid disease Tuberculosis Visual disorder Allergies and Home Medications Allergies Coded Allergies: sulfamethoxazole (Verified Allergy, Severe, JOINTS HURT, 12/21/18) trimethoprim (Verified Allergy, Severe, JOINTS HURT, 12/21/18) influenza virus vaccine, specific (Unverified Allergy, Intermediate, rash, 09/23/18) aspirin (Unverified Allergy, Unknown, convulsions, 09/23/18) metformin (Verified Adverse Reaction, Intermediate, joint pain, 09/23/18) hydromorphone HCl (Unverified Adverse Reaction, Mild, VOMITING, 01/06/11) Home Medications Albuterol Sulfate 1 Puff Puff, 2 PUFF IH QID PRN for SHORTNESS OF BREATH, (Reported) Amitriptyline HCl 75 Mg Tablet, 75 MG PO HS, (Reported) Apixaban 5 Mg Tablet, 5 MG PO BID, (Reported) Cefdinir 300 Mg Capsule, 300 MG PO BID Prescribed by: DEANDRE CUEVAS on 10/14/19 1052 Cyclobenzaprine HCl 10 Mg Tablet, 10 MG PO TID, (Reported) Dapagliflozin Propanediol 10 Mg Tablet, 10 MG PO DAILY, (Reported) Dulaglutide 0.75 Mg/0.5 Ml Pen.injctr, 0.75 MG SC Tu, (Reported) Fluticasone Propionate 16 Gm [place].susp, 2 SPRAYS NS DAILY PRN for CONGESTION, (Reported) Fluticasone/Salmeterol 12 Gm Hfa.aer.ad, 0 PUFF IH BID@ Prescribed by: KENDRA URBINA on 09/11/191115 Furosemide 40 Mg Tablet, 40 MG PO DAILY, (Reported) Glucagon,Human Recombinant 1 Mg/Kit Soln, SC UD PRN for HYPOGLYCEMIA, (Reported) Hydroxyzine HCl 50 Mg Tablet, 50 MG PO BID PRN for ANXIETY, (Reported) Insulin Aspart 300 Units/3 Ml Solution, 50 UNITS SQ TIDAC, (Reported) Insulin Detemir 100 Unit/1 Ml Insuln.pen, 80 UNIT SQ BID, (Reported) Losartan Potassium 25 Mg Tablet, 25 MG PO DAILY, (Reported) Melatonin 10 Mg Tablet, 10 MG PO HS PRN for SLEEP, (Reported) Meloxicam 15 Mg Tablet, 15 MG PO DAILY, (Reported) [place] 3 Polyunsat Fatty Acids 1,000 Mg Cap, 1,000 MG PO HS, (Reported) Omeprazole 40 Mg Capsule.dr, 40 MG PO DAILY, (Reported) Oxybutynin Chloride 5 Mg Tab.er.24, 5 MG PO DAILY, (Reported) Potassium Chloride 20 Meq Tab.er.prt, 20 MEQ PO DAILY, (Reported) Pregabalin 150 Mg Capsule, 150 MG PO TID, (Reported) Rosuvastatin Calcium 40 Mg Tablet, 40 MG PO DAILY, (Reported) Sennosides/Docusate Sodium 1 Each Tablet, 1 EACH PO BID Prescribed by: KENDRA URBINA on 09/11/191115 Sitagliptin Phosphate 100 Mg Tablet, 100 MG PO DAILY, (Reported) Sumatriptan Succinate 50 Mg Tablet, 50 MG PO UD PRN for MIGRAINE, (Reported) TAKE 1 TAB AT ONSET OF MIGRAINE, IF SYMPTOMS PERSIST AFTER 2 HOURS TAKE AN ADDITIONAL TABLET Umeclidinium [place] 62.5 Mcg Blst.w.dev, 1 PUFF IN DAILY, (Reported) Patient Home Medication List Home Medication List Reviewed: Yes Physical Exam-Cardiology Physical Exam Vital Signs/I&O 10/18/19 10/18/19 10/18/19 10/18/19 00:59 04:00 04:00 07:14 Temp 36.9 Pulse 98 95 97 Resp 25 B/P (MAP) 121/62 (81) Pulse Ox 92 93 O2 Delivery High Flow N/C High Flow N/C O2 Flow Rate 7.00 7.00 10/18/19 10/18/19 10/18/19 10/18/19 08:00 08:07 11:09 11:15 Temp 36.2 Pulse 93 Resp 28 B/P (MAP) 120/59 (79) Pulse Ox 93 88 95 O2 Delivery High Flow N/C High Flow N/C High Flow N/C O2 Flow Rate 9.00 9.00 10.00 9.00 10/18/19 12:00 Pulse Ox 92 O2 Delivery High Flow N/C O2 Flow Rate 9.00 10/18/19 00:00 Intake Total 2470 ml Output Total 2350 ml Balance 120 ml Capillary Refill : Less Than 3 Seconds Constitutional: AAO x 3, well-developed, well-nourished HEENT: other (edentulous jaws), EOMI, hearing is well preserved Neck: carotid pulses are 2 + bilaterally, with good upstrokes Respiratory: No accessory muscle use; other (good bilat air entry, but diminished at the bases; exp wheezes; prolong exp phase) Cardiovascular: regular rate-rhythm, S1 and S2, systolic murmur (faint MARY LOU at card base) Gastrointestinal: No tender; soft; No guarding, No rebound; audible bowel sounds Extremities: No clubbing, No cyanosis, No significant edema Neurologic/Psychiatric: oriented x 3, other (moves all her limbs equally) Skin: No rash on exposed areas, No ulcerations on exposed areas Data Review Labs Laboratory Tests 10/17/19 13:30: White Blood Count 23.7H, Red Blood Count 4.05L, Hemoglobin 11.3L, Hematocrit 35, Mean Corpuscular Volume 86, Mean Corpuscular Hemoglobin 28, Mean Corpuscular Hemoglobin Concent 32, Red Cell Distribution Width 16.2H, Platelet Count 444H, Mean Platelet Volume 10.9H, Neutrophils (%) (Auto) 81H, Lymphocytes (%) (Auto) 12, Monocytes (%) (Auto) 4, Eosinophils (%) (Auto) 0, Basophils (%) (Auto) 0, Neutrophils # (Auto) 19.2H, Lymphocytes # (Auto) 2.8, Monocytes # (Auto) 1.0, Eosinophils # (Auto) 0.1, Basophils # (Auto) 0.1, Neutrophils % (Manual) 69, Lymphocytes % (Manual) 20, Monocytes % (Manual) 3, Eosinophils % (Manual) 0, Basophils % (Manual) 0, Band Neutrophils 8, Anisocytosis SLIGHT, Sodium Level 136, Potassium Level 3.9, Chloride Level 91L, Carbon Dioxide Level 20L, Anion Gap 25H, Blood Urea Nitrogen 21H, Creatinine 0.68, Estimat Glomerular Filtration Rate > 60, BUN/Creatinine Ratio 31, Glucose Level 321H, Calcium Level 9.1, Total Bilirubin 0.2, Direct Bilirubin < 0.2, Indirect Bilirubin 0.0, Aspartate Amino Transf (AST/SGOT) 13, Alanine Aminotransferase (ALT/SGPT) 11, Alkaline Phosphatase 120, Troponin I < 0.30, Pro-B-Type Natriuretic Peptide 3498.0H, To pete Protein 7.1, Albumin 2.7L 10/17/19 15:13: Lactic Acid Level 1.83 10/17/19 15:45: Urine Color YELLOW, Urine Clarity CLOUDY, Urine pH 5.0, Urine Specific [place] 1.010L, Urine Protein NEGATIVE, Urine Glucose (UA) 3+H, Urine Ketones 3+H, Urine Nitrite NEGATIVE, Urine Bilirubin NEGATIVE, Urine Urobilinogen 0.2, Urine Leukocyte Esterase 1+H, Urine RBC (Auto) 1+H, Urine RBC 2-5H, Urine WBC >100H, Urine Squamous Epithelial Cells 2-5, Urine Crystals NONE, Urine Bacteria TRACE, Urine Casts NONE, Urine Mucus NEGATIVE, Urine Yeast MODERATEH, Urine Culture Indicated CULTURE PENDING, Urine Opiates Screen NEGATIVE, Urine Oxycodone Screen NEGATIVE, Urine Methadone Screen NEGATIVE, Urine Propoxyphene Screen NEGATIVE, Urine Barbiturates Screen NEGATIVE, Ur Tricyclic Antidepressants Screen POSITIVEH, Urine Phencyclidine Screen NEGATIVE, Urine Amphetamines Screen NEGATIVE, Urine Methamphetamines Screen NEGATIVE, Urine Benzodiazepines Screen NEGATIVE, Urine Cocaine Screen NEGATIVE, Urine Cannabinoids Screen NEGATIVE 10/17/19 18:53: Troponin I < 0.028, B-Type Natriuretic Peptide 152.9H 10/17/19 20:34: Blood Gas Puncture Site RIGHT RADIAL, Blood Gas Patient Temperature 36.4, Arterial Blood pH 7.40, Arterial Blood Partial Pressure CO2 35, Arterial Blood Partial Pressure O2 62L, Arterial Blood HCO3 22L, Arterial Blood Total CO2 22.8, Arterial Blood Oxygen Saturation 89L, Arterial Blood Base Excess -2.5, Yamil Test YES-POS, Blood Gas Ventilator Setting NO, Blood Gas Inspired Oxygen 7L 10/18/19 03:41: White Blood Count 17.2H, Red Blood Count 3.46L, Hemoglobin 9.4L, Hematocrit 30L, Mean Corpuscular Volume 86, Mean Corpuscular Hemoglobin 27, Mean Corpuscular Hemoglobin Concent 32, Red Cell Distribution Width 16.3H, Platelet Count 371, Mean Platelet Volume 10.4, Neutrophils (%) (Auto) 81H, Lymphocytes (%) (Auto) 12, Monocytes (%) (Auto) 6, Eosinophils (%) (Auto) 1, Basophils (%) (Auto) 0, Neutrophils # (Auto) 14.0H, Lymphocytes # (Auto) 2.1, Monocytes # (Auto) 1.0, Eosinophils # (Auto) 0.1, Basophils # (Auto) 0.0, Sodium Level 135, Potassium Level 3.1L, Chloride Level 101, Carbon Dioxide Level 23, Anion Gap 11, Blood Urea Nitrogen 15, Creatinine 0.79, Estimat Glomerular Filtration Rate > 60, BUN/Creatinine Ratio 19, Glucose Level 167H, Calcium Level 8.3L, Corrected Calcium 9.6, Phosphorus Level 2.8, Magnesium Level 1.5L, Total Bilirubin 0.2, Aspartate Amino Transf (AST/SGOT) 11, Alanine Aminotransferase (ALT/SGPT) 10, Al kaline Phosphatase 97, B-Type Natriuretic Peptide 123.4H, Total Protein 5.8L, Albumin 2.4L 10/18/19 11:26: Glucometer 186H Laboratory Tests 10/17/19 13:30 10/18/19 03:41 A/P-Cardiology Assessment/Admission Diagnosis Mild BNP elevation, likely due to obesity-hypoventilation/pneumonia/hypoxia. No clinical evidence of acute CHF Pneumonia H/o PAF (documented in Dr Hamm's note of Aug 2019): on Eliquis Echo of 09/07/19 (Dr Hamm): LVEF 50-55%, grade 1 swartz dysfunction, mod TR, PASP 35 mmHg H/o TIA and PE in the past DM II Obesity (BMI approx 40) and obesity-hypoventilation Hypokalemia due to chronic diuretic therapy H/o hypertension and hyperlipidemia Discussion and Recomendations * Continue current regimen * Replenish K * Monitor labs * Risk factor mod reviewed with pt * Will follow with you Clinical Quality Measures DVT/VTE Risk/Contraindication: Risk Factor Score Per Nursin RFS Level Per Nursing on Admit: 4+=Very High ARETHA ESCAMILLA MD FACP FAC CCDS Oct 18, 2019 12:48
[2019-10-18] MEDS: SUMAtriptan 50 MG (IMITREX) TAB PO PRN (14:23)
[2019-10-18 16:00] VITALS: BP 103/57
[2019-10-18 20:00] VITALS: BP 106/67
[2019-10-18] MEDS: AMITRIPTYLINE 25 MG (ELAVIL) TAB PO SCH (20:45)
[2019-10-18] MEDS: ROSUVASTATIN 20 MG (CRESTOR) TABLET PO SCH (20:45)
[2019-10-19] VITALS (23 sets, daily range): BP systolic 100–148; BP diastolic 52–83
[2019-10-19] MEDS: VANCOMYCIN 1250 MG/NS 250 ML IVPB IV SCH ×6 (00:50→21:46)
--- NOTE | 2019-10-19 02:55 | NUR ---
This RN notified Dr. Iqbal of patient requiring increase in oxygen. Patient is currently 90% on 10L high flow. Orders received for ABG, CXR, Vapotherm and MAT protocol. Patient states short of breath and appears anxious. Will continue to monitor.
[2019-10-19] MEDS: RT-ALBUTEROL/IPRATROPIUM 3 ML (DUONEB) VIAL INH SCH ×7 (02:59→21:19)
[2019-10-19] MEDS: NS IV 500 ML 500 ML IV SCH ×2 (03:11→17:10)
[2019-10-19 03:23] LABS: ABG OXYGEN SATURATION 95 % (94-100); ABG PCO2 40 MMHG (35-45); ABG PH 7.41 (7.37-7.43); ABG PO2 68 MMHG (79-93); ABG TCO2 26.8 MMOL/L (21.0-31.0)
[2019-10-19 03:25] LABS: ALLENS TEST YES-POS; INSPIRED O2 70%; PATIENT TEMP 35.5; VENTILATOR NO
[2019-10-19] MEDS: hydrOXYzine (VISTARIL/ATARAX) 25 MG capsule/tablet PO PRN ×2 (03:30→09:05)
[2019-10-19] MEDS: HYDROcodone/APAP 5 MG/325 MG (LORTAB) TAB PO PRN ×3 (03:31→17:14)
[2019-10-19 04:16] LABS: BUN/CREATININE RATIO 16; CALCIUM 8.4 MG/DL (8.5-10.1); CARBON DIOXIDE 22 MMOL/L (21-32); CHLORIDE 103 MMOL/L (98-107); CREATININE SERUM 0.81 MG/DL (0.60-1.30); GFR ESTIMATED > 60; GLUCOSE 220 MG/DL (70-105); MAGNESIUM 1.8 MG/DL (1.6-2.4); PHOSPHORUS 2.4 MG/DL (2.3-4.7); POTASSIUM 4.2 MMOL/L (3.6-5.0); SODIUM 135 MMOL/L (135-145)
[2019-10-19] MEDS ORDERED: FUROSEMIDE 40 MG/4 ML INJ (LASIX) ONE (04:19)
--- NOTE | 2019-10-19 04:26 | Pulmonary Progress Note ---
Subjective Time Seen by a Provider: 04:19 Sepsis Event Evaluation Height, Weight, BMI Height: 5'9.00" Weight: 253lbs. 1.0oz. 114.358061be; 38.95 BMI Method:Stated Focused Exam Lactate Level 10/17/19 15:13: Lactic Acid Level 1.83 Exam Exam Vital Signs Date Time Temp Pulse Resp B/P (MAP) Pulse Ox O2 Delivery O2 Flow Rate FiO2 10/19/19 03:05 92 21 91 Vapotherm 40.00 70.00 10/19/19 01:00 93 10/19/19 00:55 97 14 87 High Flow N/C 8.00 10/19/19 00:00 35.8 93 25 131/65 (87) 95 High Flow N/C 6.00 10/19/19 00:00 94 High Flow N/C 6.00 10/18/19 20:00 94 High Flow N/C 6.00 10/18/19 20:00 36.4 97 18 106/67 (80) 95 High Flow N/C 6.00 10/18/19 19:50 96 25 91 High Flow N/C 6.00 10/18/19 19:44 92 High Flow N/C 6.00 10/18/19 19:00 103 10/18/19 16:08 94 High Flow N/C 6.00 10/18/19 16:00 36.0 103/57 (72) 10/18/19 15:38 95 High Flow N/C 5.00 10/18/19 13:49 89 10/18/19 12:00 92 High Flow N/C 9.00 10/18/19 11:15 36.2 10/18/19 11:09 95 High Flow N/C 10.00 10/18/19 08:07 93 28 120/59 (79) 88 High Flow N/C 9.00 9.00 10/18/19 08:00 93 High Flow N/C 9.00 10/18/19 07:14 97 I & O 10/19/19 07:00 Intake Total 2380 ml Output Total 2600 ml Balance -220 ml Height & Weight Height: 5'9.00" Weight: 253lbs. 1.0oz. 114.466847oz; 38.95 BMI Method:Stated General Appearance: No Apparent Distress, WD/WN, Chronically ill, Obese HEENT: PERRL/EOMI, Normal ENT Inspection, Pharynx Normal, Moist Mucous Membranes Neck: Full Range of Motion, Normal Inspection, Non Tender Respiratory: Chest Non Tender, No Accessory Muscle Use, No Respiratory Distress, Crackles, Decreased Breath Sounds Cardiovascular: No Edema, No Gallop, No JVD, No Murmur, Normal Peripheral Pulses, Irregularly Irregular Capillary Refill: Less Than 3 Seconds Extremity: Normal Capillary Refill, Normal Inspection, Normal Range of Motion, Non Tender, No Calf Tenderness, No Pedal Edema Neurologic/Psychiatric: Alert, Oriented x3, No Motor/Sensory Deficits, Depressed Affect Skin: Normal Color, Warm/Dry Lymphatic: No Adenopathy Results Lab Laboratory Tests 10/17/19 13:30 10/18/19 03:41 10/19/19 03:35 Assessment/Plan Assessment/Plan Acute worsening respiratory failure on chronic -Give lasix 80mg x 1 -DuoNebs q 4hr -Check BNP -Monitor close -Currently requiring Vapotherm at 80% -ABG- reviewed -Make ICU status Pneumonia with sepsis and hypoxia - not severe sepsis -Continue Vanco and Merrem hx of ESBL -Await cultures Pulmonary edema -Give Lasix 80mg IV X 1 Anemia -Monitor GI/DVT ppx -She is on Eliquis for hx of Afib and hx of PE -Protonix DM -Diabetic Diet -insulin STEFANIE STARKS DO Oct 19, 2019 04:26
[2019-10-19] MEDS ORDERED: FUROSEMIDE 40 MG/4 ML INJ (LASIX) IVP ONE (04:30)
[2019-10-19] MEDS ORDERED: MAGNESIUM 1 GM/100 ML IVPB 100 ML IV ONE (04:45)
--- NOTE | 2019-10-19 05:48 | Diagnostic Imaging Report ---
INDICATION: Dyspnea. COMPARISON: 10/17/2019 FINDINGS: Single frontal radiograph view of the chest was obtained and again demonstrates diffuse mixed interstitial and patchy alveolar opacities. There may be interval progression of alveolar opacification on the right. No large effusion or pneumothorax is seen. Cardiac silhouette is heavily obscured, but appears stable. Osseous structures show no gross acute abnormalities. IMPRESSION: 1. Persistent diffuse mixed opacities, slightly more prominent on the right compared to prior exam. Diffuse infiltrate versus pulmonary edema or ARDS is suspected. Dictated by: Dictated on workstation # [id number]
[2019-10-19] MEDS: KCL 20 MEQ TAB (K-DUR) PO SCH (06:14)
[2019-10-19] MEDS: MAGNESIUM 1 GM/100 ML IVPB 100 ML IV SCH (06:14)
[2019-10-19] MEDS: POTASSIUM CL 10MEQ/50ML IVPB 50 ML IV SCH (06:14)
[2019-10-19] MEDS ORDERED: RT-ALBUTEROL/IPRATROPIUM 3 ML (DUONEB) VIAL ONE (06:18)
[2019-10-19] MEDS: inSUlin ASPART (NovoLOG) 1 UNIT/0.01 ML (CHARGE PER UNIT) SQ SCH ×3 (06:30→17:10)
[2019-10-19] MEDS: MEROPENEM 1,000 MG/SWFI 20 ML IV PUSH IV SCH ×6 (06:31→21:46)
[2019-10-19] MEDS ORDERED: POTASSIUM PHOSPHATE INJ 30 MM in NS (IVPB) 250 ML IV NR (06:31)
[2019-10-19] MEDS: UMECLIDINIUM BROMIDE (INCRUSE ELLIPTA) 7'S IH SCH (07:07)
--- NOTE | 2019-10-19 08:19 | NUR ---
PTD VANCOMYCIN: LABS SCR 0.81 VANCOMYCIN TROUGH 34.7 PLAN: HOLD VANCOMYCIN TODAY, WILL REPEAT A LEVEL THIS EVENING AND ADJUST DOSING IF IN THERAPEUTIC RANGE. Addendum: 10/19/19 at 1123 by ROSSANA GALLAGHER [facility] REPEAT LEVEL TONIGHT AT 1800.
[2019-10-19] MEDS: OXYBUTYNIN (DITROPAN) 5 MG TAB PO SCH ×2 (09:05→21:45)
[2019-10-19] MEDS: LINAGLIPTIN (TRADJENTA) 5 MG TABLET PO SCH (09:05)
[2019-10-19] MEDS: LOSARTAN 25 MG (COZAAR) TAB PO SCH (09:05)
[2019-10-19] MEDS: ALPRAZolam 0.25 MG (XANAX) TAB PO PRN (09:06)
[2019-10-19] MEDS: CYCLOBENZAPRINE 10 MG (FLEXERIL) TAB PO SCH ×3 (09:06→21:45)
[2019-10-19] MEDS: APIXABAN 5 MG (ELIQUIS) TABLET PO SCH ×2 (09:06→21:46)
[2019-10-19] MEDS: PANTOPRAZOLE 40 MG (PROTONIX) TAB PO SCH (09:07)
[2019-10-19] MEDS: PREGABALIN 150 MG (LYRICA) CAPSULE PO SCH ×3 (09:07→21:45)
[2019-10-19] MEDS: SENNA W/DOCUSATE (SENOKOT S) TABLET PO SCH ×2 (09:11→21:45)
[2019-10-19] MEDS: MELOXICAM 7.5 MG (MOBIC) TABLET PO SCH (09:11)
[2019-10-19] MEDS: NYSTATIN CREAM (MYCOSTATIN) 30 GM TUBE TP SCH ×3 (09:14→21:47)
--- NOTE | 2019-10-19 09:36 | Cardiology Progress Note ---
Subjective Date Seen by Provider: Oct 19, 2019 Time Seen by Provider: 09:30 Subjective/Events-last exam Patient is laying down in bed, still having some shortness of breath but reporting some improvement, still wheezing. No chest pain Review of Systems General: No Chills, No Night Sweats; Fatigue, Malaise; No Appetite, No Other HEENT: No Head Aches, No Visual Changes, No Eye Pain, No Ear Pain, No Dysphasia, No Sinus Congestion, No Post Nasal Drip, No Sore Throat, No Other Pulmonary: Dyspnea, Cough; No Pleuritic Chest Pain, No Other Cardiovascular: Edema; No: Chest Pain, Palpitations, Orthopnea, Paroxysmal Noc. Dyspnea, Lt Headedness, Other Focused Exam Lactate Level 10/17/19 15:13: Lactic Acid Level 1.83 Objective-Cardiology Exam Last Set of Vital Signs Vital Signs 10/19/19 10/19/19 10/19/19 07:10 07:14 09:00 Temp 36.4 Pulse 93 Resp 26 B/P (MAP) 118/70 (86) Pulse Ox 93 O2 Delivery Vapotherm O2 Flow Rate 25.00 60.00 FiO2 60 Capillary Refill : Less Than 3 Seconds I&O Intake and Output 10/19/19 00:00 Intake Total 2650 ml Output Total 3000 ml Balance -350 ml Intake Oral 2050 ml IV Total 600 ml Output Urine Total 3000 ml General: Alert, Oriented X3, Cooperative HEENT: Atraumatic, PERRLA Neck: Supple, No JVD, No Thyromegaly Lungs: Normal Air Movement, Other (Bilateral wheezing, rhonchi) Heart: Regular Rate, Normal S1, Normal S2, No Murmurs Abdomen: Normal Bowel Sounds, Soft, No Tenderness, No Hepatosplenomegaly, No Masses Extremities: No Clubbing, No Cyanosis, Normal Pulses, No Tenderness/Swelling, Other (Trace edema) Skin: No Rashes, No Breakdown, No Significant Lesion Neuro: Normal Gait, Normal Speech, Strength at 5/5 X4 Ext, Normal Tone, Sensation Intact Psych/Mental Status: Mental Status NL, Mood NL Results Lab Laboratory Tests 10/19/19 03:35 A/P-Cardiology Admission Diagnosis Pneumonia Acute respiratory failure Coronary artery disease Hypertension Assessment/Plan Pneumonia, leukocytosis, acute respiratory insufficiency, currently on Vapotherm, managed by primary care team. History of COPD, using oxygen at home, continue to monitor Mild elevation of BNP returned to normal, had echocardiogram done in August 2019 reported ejection fraction 50-55 percent, grade 1 diastolic dysfunction, pulmonary artery pressure of 35 mmHg. Continue to monitor Coronary artery disease, reported history of angioplasty to a small artery in 2001, most recent cardiac catheterization done October 2017 revealed nonobstructive disease, continue to monitor. History of transient ischemic attack, was hospitalized in June 2017, no source of embolization was noted, fully recovered Paroxysmal atrial fibrillation, had a reported history of atrial fibrillation in August 2019, at that time she was seen by Dr. Hamm, maintained on Eliquis History of pulmonary embolism, ,maintained on Eliquis Hypertension, labile blood pressure, had history of hypotension and dizziness, c ontinue to monitor blood pressure Hyperlipidemia, continue to monitor COPD, using oxygen at home at night. Followed by Dr. Bowen BMI is 40, discussed weight loss and exercise Diabetes mellitus, followed and managed by primary care physician Peripheral neuropathy, generalized body ache. Clinical Quality Measures DVT/VTE Risk/Contraindication: Risk Factor Score Per Nursin RFS Level Per Nursing on Admit: 4+=Very High LATRICIA MIRANDA MD Oct 19, 2019 09:36
[2019-10-19] MEDS: ADVAIR HFA 115/21 MCG INHALER 8 GM IH SCH ×2 (10:47→18:50)
--- NOTE | 2019-10-19 10:49 | Progress Note - Hospitalist ---
CHEPE RIVERA,MED STUDENT 10/19/19 1049: Subjective HPI/CC On Admission Date Seen by Provider: Oct 19, 2019 Time Seen by Provider: 09:15 CC: Recurrent PNA HPI: This is a 54yoWF clinic patient of [facility] known to me from multiple hospital stays most recent DC Saturday for PNA after she refused NH placement and went h ome and just sat in her recliner and had fecal and urinary incontinence because she was too weak to get up. She has since experienced periarea pain from chafing and yeast involvement and hypoxia and elevated wbc from recurrent PNA. DM will be managed along with other home meds along with Dr Parmar consultation for elevated BNP. Subjective/Events-last exam Pt. states her breathing is slightly improved this morning on vapotherm. She is still feeling somewhat SOB and has occasional chest pain, denies pain with inspiration. Denies n/v/abdominal pain. CXR shows mixed interstitial and alveolar opacities. Per cardiology evaluation, no evidence suggesting CHF. Focused Exam Lactate Level 10/17/19 15:13: Lactic Acid Level 1.83 Objective Exam Vital Signs Vital Signs Date Time Temp Pulse Resp B/P (MAP) Pulse Ox O2 Delivery O2 Flow Rate FiO2 10/19/19 10:00 93 36 129/69 (89) 95 Vapotherm 25.00 60.00 10/19/19 08:00 70 10/19/19 07:10 36.4 Capillary Refill : Less Than 3 Seconds General Appearance: No Apparent Distress, WD/WN, Obese HEENT: PERRL/EOMI; No Pale Conjunctivae (L), No Pale Conjunctivae (R), No Scleral Icterus (L), No Scleral Icterus (R) Respiratory: Lungs Clear, No Accessory Muscle Use, No Respiratory Distress; No Stridor, No Wheezing Cardiovascular: Regular Rate, Rhythm, No Murmur, Normal Peripheral Pulses Gastrointestinal: Non Tender, Soft; No Distended, No Guarding Extremity: Normal Capillary Refill, Non Tender, No Calf Tenderness, Pedal Edema Neurologic/Psychiatric: Alert, Oriented x3, Normal Mood/Affect Skin: Normal Color, Warm/Dry Results/Procedures Lab Laboratory Tests 10/19/19 03:35 Patient resulted labs reviewed. Assessment/Plan Assessment and Plan Assess & Plan/Chief Complaint Assessment: PNA Hypoxia Leukocytosis - improving Hx of PAF Hx of PE HTN Diabetes mellitus Hx of pancreatitis GERD s/p EGD/Colonoscopy 3 months ago Anxiety Depression Morbid Obesity Hx of UTI ESBL Plan: Viral panel pending BNP returned to normal Vapotherm now at 60% Continue Vanc and meropenem Continue home DM meds Clinical Quality Measures DVT/VTE Risk/Contraindication: Risk Factor Score Per Nursin RFS Level Per Nursing on Admit: 4+=Very High KENDRA IQBAL DO 10/19/19 1519: Subjective Subjective/Events-last exam Pt doing pretty well but still SOB On BiPAP last night transitioned to Vapotherm this morning BNP much improved Overall much more stable but required ICU transfer from step down Review of Systems General: Fatigue Pulmonary: Dyspnea, Cough Objective Exam General Appearance: No Apparent Distress, WD/WN, Chronically ill, Obese Respiratory: Decreased Breath Sounds, Wheezing Cardiovascular: Regular Rate, Rhythm Neurologic/Psychiatric: Alert, Oriented x3, No Motor/Sensory Deficits, Normal Mood/Affect Assessment/Plan Assessment and Plan Assess & Plan/Chief Complaint Wean O2 Rehab evaluation PT OT Supervisory-Addendum Brief Verification & Attestation Participated in pt care: history, MDM, physical Personally performed: exam, history, MDM, supervision of care Care discussed with: Medical Student Procedures: n/a Results interpretation: Verified all documentation Verification and Attestation of Medical Student E/M Service A medical student performed and documented this service in my presence. I reviewed and verified all information documented by the medical student and made modifications to such information, when appropriate. I personally performed the physical exam and medical decision making. Kendra Iqbal, Oct 19, 2019,19:42 CHEPE RIVERA,MED STUDENT Oct 19, 2019 10:49 KENDRA IQBAL DO Oct 19, 2019 15:19
--- NOTE | 2019-10-19 11:00 | Physician Query Clarification ---
PQ-Conflicting Diagnosis Admission/Discharge Admission Date: Oct 17, 2019 at 15:00 Discharge Date: The medical record reflects the following clinical scenario: History/Risk Factors: Pneumonia Stage 1 pressure ulcer, coccyx. Clinical Findings: WBC 23.7, Bands 8, T 36.6, P 103, Resp 25, BP 133/37, Lactic acid 1.83, blood cultures-no growth. Treatment:IV Meropenem 500mg, Vancomycin HCI injections Question: Do you agree with the impression of Sepsis per Dr. Bowen. Please document a response in Progress Note or Discharge Summary. 1. Yes 2. No 3. Other, with explanation of clinical findings 4. Clinically undetermined, no explanation for clinical findings. PHYSICIAN RESPONSE Do you agree w/Consulting Dx?: Yes Please remember a lack of response to the above will prompt a phone page by CDI/Coding staff. In responding to this query, please exercise your independent professional judgment. The purpose of this communication is to more accurately reflect the complexity of your patients condition. The fact that a question is asked does not imply that any particular answer is desired or expected. Thank you for your timely response to this clarification. Requestors name: Yumiko Veronica [facility] Phone #ext [phone] or [phone] THIS PHYSICIAN QUERY FORM IS A PERMANENT PART OF THE MEDICAL RECORD YUMIKO VERONICA Oct 19, 2019 11:00 DARRELL URBINA DO Oct 19, 2019 20:02
--- NOTE | 2019-10-19 11:10 | NUR ---
Pastoral care visit, pt was asleep, will monitor.
--- NOTE | 2019-10-19 11:18 | Physician Query Clarification ---
PQ-Conflicting Diagnosis Admission/Discharge Admission Date: Oct 17, 2019 at 15:00 Discharge Date: The medical record reflects the following clinical scenario: History/Risk Factors: Pneumonia Emphysema Clinical Findings:10/18 pulse 97, pulse ox 87% on 8 Liters High Flow N/C. Treatment: Requiring Vapotherm at 80%, Lasix 80mg, DuoNebs q 4 hrs, Question: Do you agree with the impression of Acute on chronic worsening respiratory failure per Dr. Bowen's 10/18 consult? Please document a response in Progress Note or Discharge Summary. 1. Yes 2. No 3. Other, with explanation of clinical findings 4. Clinically undetermined, no explanation for clinical findings. PHYSICIAN RESPONSE Do you agree w/Consulting Dx?: Yes Please remember a lack of response to the above will prompt a phone page by CDI/Coding staff. In responding to this query, please exercise your independent professional judgment. The purpose of this communication is to more accurately reflect the complexity of your patients condition. The fact that a question is asked does not imply that any particular answer is desired or expected. Thank you for your timely response to this clarification. Requestors name: Yumiko Veronica [facility] Phone # ext [phone] or [phone] THIS PHYSICIAN QUERY FORM IS A PERMANENT PART OF THE MEDICAL RECORD YUMIKO VERONICA Oct 19, 2019 11:18 DARRELL URBINA DO Oct 19, 2019 20:03
--- NOTE | 2019-10-19 11:25 | Physician Query Clarification ---
PQ-Link Manifestation-Etiology Admission/Discharge Admission Date: Oct 17, 2019 at 15:00 Discharge Date: The medical record reflects the following clinical scenario: History/Risk Factors: Sepsis per Dr. Bowen Acute on chronic respiratory failure per Dr. Bowen. Clinical Findings: WBC 23.7, Bands 8, T 36.6, P 103, Resp 25, BP 133/37 Treatment: IV Meropenem, Vancomycin injections, DuoNebs q 4hr, Requiring Vapotherm at 80%. Question: Can you specify if the Acute on chronic respiratory failure is due to/associated with Sepsis? Please document a response in the Progress Note or Discharge Summary. 1. Yes - Acute on chronic respiratory failure is due to/associated with sepsis. 2. No - Acute on chronic respiratory failure is not due to/associated with sepsis. 3. Other, with explanation of the clinical findings. 4. Clinically undetermined, no explanation for the clinical findings. PHYSICIAN RESPONSE Manifestation due to/assoic: Yes Please remember a lack of response to the above will prompt a phone page by CDI/Coding staff. In responding to this query, please exercise your independent professional judgment. The purpose of this communication is to more accurately reflect the complexity of your patients condition. The fact that a question is asked does not imply that any particular answer is desired or expected. Thank you for your timely response to this clarification. Requestors name: [ ] Phone # [ ] THIS PHYSICIAN QUERY FORM IS A PERMANENT PART OF THE MEDICAL RECORD DIAMANTE VERONICA Oct 19, 2019 11:25 DARRELL URBINA DO Oct 19, 2019 20:03
--- NOTE | 2019-10-19 11:31 | Physician Query Clarification ---
PQ-Further Specificity Admission/Discharge Admission Date: Oct 17, 2019 at 15:00 Discharge Date: The medical record reflects the following clinical scenario: History/Risk Factors: Pneumonia Emphysema Clinical Findings:10/18 xray impression: Persistent diffuse mixed opacities, slightly more prominent on the right compared to prior exam. Diffuse infiltrate versus pulmonary edema or ARDS is suspected. Dr. Yusuf Pruitt MD. Dr. Bowen documented pulmonary edema. Treatment: IV lasix 80mg. Question: Can you further specify pulmonary edema per the clinical indicators above? Please document a response in the Progress Notes or Discharge Summary. 1. Acute pulmonary edema. 2. Chronic pulmonary edema. 3. Other, with explanation of the clinical findings. 4. Clinically undetermined, no explanation for the clinical findings. PHYSICIAN RESPONSE Can you specify per above: 1 Please remember a lack of response to the above will prompt a phone page by CDI/Coding staff. In responding to this query, please exercise your independent professional judgment. The purpose of this communication is to more accurately reflect the complexity of your patients condition. The fact that a question is asked does not imply that any particular answer is desired or expected. Thank you for your timely response to this clarification. Requestors name: Yumiko Veronica [facility] Phone # ext [phone] or [phone] THIS PHYSICIAN QUERY FORM IS A PERMANENT PART OF THE MEDICAL RECORD YUMIKO VERONICA Oct 19, 2019 11:31 DARRELL URBINA DO Oct 19, 2019 20:04
[2019-10-19] MEDS ORDERED: TROUGH ORDER-PHARMACY XX ONE (18:00)
[2019-10-19] MEDS: ROSUVASTATIN 20 MG (CRESTOR) TABLET PO SCH (21:46)
[2019-10-19] MEDS: AMITRIPTYLINE 25 MG (ELAVIL) TAB PO SCH (21:46)
[2019-10-19] MEDS: morphine INJ 4 MG/ML 1 ML (VIAL/SYRINGE) IVP PRN (23:02)
[2019-10-20] VITALS (24 sets, daily range): BP systolic 110–162; BP diastolic 56–104
[2019-10-20] MEDS: RT-ALBUTEROL/IPRATROPIUM 3 ML (DUONEB) VIAL INH SCH ×6 (02:11→22:04)
[2019-10-20 03:47] LABS: BASOPHILS % (AUTO) 0 % (0-10); EOSINOPHILS # (AUTO) 0.2 10^3/uL (0.0-0.3); EOSINOPHILS % (AUTO) 1 % (0-10); HEMATOCRIT 30 % (35-52); HEMOGLOBIN 9.6 G/DL (11.5-16.0); LYMPHOCYTES # (AUTO) 2.4 X 10^3 (1.0-4.0); LYMPHOCYTES % (AUTO) 14 % (12-44); MEAN CORPUSCULAR HEMOGLOBIN 28 PG (25-34); MEAN CORPUSCULAR HGB CONC 32 G/DL (32-36); MEAN CORPUSCULAR VOLUME 86 FL (80-99); MEAN PLATELET VOLUME 10.5 FL (7.4-10.4); MONOCYTES # (AUTO) 0.9 X 10^3 (0.0-1.0); MONOCYTES % (AUTO) 5 % (0-12); NEUTROPHILS # (AUTO) 14.1 X 10^3 (1.8-7.8); NEUTROPHILS % (AUTO) 80 % (42-75); PLATELET COUNT 362 10^3/uL (130-400); RED CELL DISTRIBUTION WIDTH 16.6 % (10.0-14.5); WHITE BLOOD COUNT 17.6 10^3/uL (4.3-11.0)
[2019-10-20 04:04] LABS: BUN/CREATININE RATIO 15; CALCIUM 8.5 MG/DL (8.5-10.1); CARBON DIOXIDE 25 MMOL/L (21-32); CHLORIDE 100 MMOL/L (98-107); CREATININE SERUM 0.75 MG/DL (0.60-1.30); GFR ESTIMATED > 60; GLUCOSE 160 MG/DL (70-105); MAGNESIUM 1.9 MG/DL (1.6-2.4); PHOSPHORUS 2.9 MG/DL (2.3-4.7); POTASSIUM 4.6 MMOL/L (3.6-5.0); SODIUM 135 MMOL/L (135-145)
--- NOTE | 2019-10-20 05:00 | Pulmonary Progress Note ---
Subjective Time Seen by a Provider: 04:55 Subjective/Events-last exam PT is doing worse respiratory jose and requiring more oxygen. BNP yesterday is low. Sepsis Event Evaluation Height, Weight, BMI Height: 5'9.00" Weight: 253lbs. 1.0oz. [id number]; 38.95 BMI Method:Stated Focused Exam Lactate Level 10/17/19 15:13: Lactic Acid Level 1.83 Exam Exam Vital Signs Date Time Temp Pulse Resp B/P (MAP) Pulse Ox O2 Delivery O2 Flow Rate FiO2 10/20/19 04:06 98 25 92 Vapotherm 20.00 60.00 10/20/19 03:00 95 26 110/73 (85) 92 Vapotherm 20.00 55.00 10/20/19 02:11 90 Vapotherm 20.00 55 10/20/19 02:00 101 33 115/65 (82) 91 Vapotherm 20.00 55.00 10/20/19 01:51 105 31 93 Vapotherm 20.00 55.00 10/20/19 01:16 36.5 Vapotherm 20.00 50.00 10/20/19 01:00 96 10/20/19 01:00 96 25 124/71 (88) 94 Vapotherm 20.00 60.00 10/20/19 00:00 101 25 136/75 (95) 93 Vapotherm 20.00 60.00 10/20/19 00:00 97 Vapotherm 20.00 60 10/19/19 23:00 101 24 117/58 (77) 92 Vapotherm 20.00 60.00 10/19/19 22:00 110 25 100/63 (75) 88 Vapotherm 20.00 60.00 10/19/19 21:50 Vapotherm 20.00 60.00 10/19/19 21:45 Vapotherm 20.00 50.00 10/19/19 21:41 36.8 10/19/19 21:19 90 Vapotherm 15.00 50 10/19/19 21:00 101 27 119/75 (90) Vapotherm 15.00 50.00 10/19/19 20:00 107 22 135/79 (97) 92 Vapotherm 15.00 50.00 10/19/19 20:00 97 Vapotherm 15.00 50 10/19/19 19:44 108 25 128/67 (87) 91 Vapotherm 15.00 50.00 10/19/19 19:00 101 10/19/19 19:00 Vapotherm 15.00 50.00 10/19/19 19:00 101 91 Vapotherm 15.00 50.00 10/19/19 18:51 Vapotherm 10/19/19 18:50 93 Vapotherm 25.00 50 10/19/19 18:00 100 23 95 Vapotherm 25.00 50.00 10/19/19 17:00 96 31 140/76 (97) 95 Vapotherm 25.00 50.00 10/19/19 16:00 92 Vapotherm 25.00 50 10/19/19 16:00 93 26 148/83 (104) 93 Vapotherm 25.00 50.00 10/19/19 15:00 97 18 138/73 (94) 95 Vapotherm 25.00 50.00 10/19/19 14:30 94 Vapotherm 25.00 50 10/19/19 14:00 99 28 114/70 (85) 94 Vapotherm 25.00 50.00 10/19/19 13:00 97 10/19/19 13:00 97 33 117/68 (84) 92 Vapotherm 25.00 50.00 10/19/19 12:45 Vapotherm 25.00 50.00 10/19/19 12:00 92 Vapotherm 25.00 50 10/19/19 12:00 95 14 110/79 (89) 92 Vapotherm 25.00 60.00 10/19/19 11:14 36.9 10/19/19 11:02 Vapotherm 10/19/19 11:00 93 32 130/70 (90) 95 Vapotherm 25.00 60.00 10/19/19 10:48 94 Vapotherm 25.00 60 10/19/19 10:00 93 36 129/69 (89) 95 Vapotherm 25.00 60.00 10/19/19 09:00 93 26 118/70 (86) 93 Vapotherm 25.00 60.00 10/19/19 08:00 97 Vapotherm 60.00 70 10/19/19 08:00 101 12 116/57 (76) 88 Vapotherm 25.00 60.00 3/9/20 07:14 Vapotherm 40.00 60 10/19/19 07:10 36.4 10/19/19 07:08 93 Vapotherm 40.00 60 10/19/19 07:00 96 10/19/19 07:00 100 21 137/77 (97) 95 Vapotherm 25.00 60.00 10/19/19 06:00 93 27 106/52 (70) 95 Vapotherm 40.00 70.00 10/19/19 05:00 94 32 131/63 (85) 93 Vapotherm 40.00 70.00 I & O 10/20/19 07:00 Intake Total 2982.5 ml Output Total 3325 ml Balance -342.5 ml Height & Weight Height: 5'9.00" Weight: 253lbs. 1.0oz. 114.304156yw; 38.95 BMI Method:Stated General Appearance: WD/WN, Chronically ill, Moderate Distress, Obese HEENT: PERRL/EOMI; No Pale Conjunctivae (L), No Pale Conjunctivae (R), No Scleral Icterus (L), No Scleral Icterus (R) Neck: Full Range of Motion, Normal Inspection, Non Tender Respiratory: Decreased Breath Sounds, Rales, Respiratory Distress, Wheezing Cardiovascular: Regular Rate, Rhythm Capillary Refill: Less Than 3 Seconds Gastrointestinal: non tender, soft Extremity: Normal Capillary Refill, Non Tender, No Calf Tenderness, Pedal Edema Neurologic/Psychiatric: Alert, Oriented x3, No Motor/Sensory Deficits, Normal Mood/Affect Skin: Normal Color, Warm/Dry Lymphatic: No Adenopathy Results Lab Laboratory Tests 10/19/19 03:35 10/20/19 03:26 Assessment/Plan Assessment/Plan Acute worsening respiratory failure on chronic with ARDS -PT requiriring more oxygen Pa02/Fi02 is 98 and she has increased WOB despite vanco and Merrem cultures are negative. Influenza is negative. RVP is pending. -I discussed with [facility] regarding testing for COVID 19 secondary to patient's worsening condition and no clear etiology pt does qualify for testing. -BNP is 36 -DuoNebs q 4hr -Check BNP -Monitor close -Currently requiring Vapotherm at 80% -I discussed with patient regarding possible need to intubation and also discussed with family members. They have not yet decided if they would be ok with intubation if needed. -ABG- reviewed -Make ICU status Pneumonia with sepsis and hypoxia - not severe sepsis -Continue Vanco and Merrem hx of ESBL -Await cultures Anemia -Monitor hx of CAD GI/DVT ppx -She is on Eliquis for hx of Afib and hx of PE -Protonix DM -Diabetic Diet -insulin Stage 1 decubitus ulcer in diabetic patient STEFANIE STARKS DO Oct 20, 2019 05:00
[2019-10-20] MEDS: PANTOPRAZOLE 40 MG (PROTONIX) TAB PO SCH (05:16)
[2019-10-20] MEDS: MEROPENEM 1,000 MG/SWFI 20 ML IV PUSH IV SCH ×6 (05:16→21:02)
[2019-10-20] MEDS: HYDROcodone/APAP 5 MG/325 MG (LORTAB) TAB PO PRN (05:16)
[2019-10-20] MEDS: POTASSIUM CL 10MEQ/50ML IVPB 50 ML IV SCH (05:17)
[2019-10-20] MEDS: MAGNESIUM 1 GM/100 ML IVPB 100 ML IV SCH (05:17)
[2019-10-20] MEDS: KCL 20 MEQ TAB (K-DUR) PO SCH (05:17)
[2019-10-20 06:19] LABS: ABG BASE EXCESS 4.6 MMOL/L (-2.5-2.5); ABG OXYGEN SATURATION 93 % (94-100); ABG PCO2 42 MMHG (35-45); ABG PH 7.44 (7.37-7.43); ABG PO2 59 MMHG (79-93); ABG TCO2 30.2 MMOL/L (21.0-31.0)
--- NOTE | 2019-10-20 06:20 | NUR ---
Dr Bowen notified of pt's increasing oxygen demand and work of breathing, Dr Bowen in to see pt and discussed options. Pt very tearful, reports her was on a "respirator and wasted away and ". Therapeutic communication attempted. Pt's son called this RN, requesting update, password set up, family updated. Family and pt verbalized understanding of situation, need reinforcement.
[2019-10-20 06:21] LABS: ALLENS TEST YES-POS; INSPIRED O2 60%; PATIENT TEMP 35.9; VENTILATOR NO
[2019-10-20] MEDS: inSUlin ASPART (NovoLOG) 1 UNIT/0.01 ML (CHARGE PER UNIT) SQ SCH ×3 (06:51→17:14)
--- NOTE | 2019-10-20 07:40 | Cardiology Progress Note ---
Subjective Date Seen by Provider: Oct 20, 2019 Time Seen by Provider: 07:38 Subjective/Events-last exam Patient is laying down in bed, complaining of fatigue and shortness of breath Review of Systems General: No Chills, No Night Sweats; Fatigue, Malaise; No Appetite, No Other HEENT: No Head Aches, No Visual Changes, No Eye Pain, No Ear Pain, No Dysphasia, No Sinus Congestion, No Post Nasal Drip, No Sore Throat, No Other Pulmonary: Dyspnea, Cough; No Pleuritic Chest Pain, No Other Cardiovascular: Edema; No: Chest Pain, Palpitations, Orthopnea, Paroxysmal Noc. Dyspnea, Lt Headedness, Other Focused Exam Lactate Level 10/17/19 15:13: Lactic Acid Level 1.83 Objective-Cardiology Exam Last Set of Vital Signs Vital Signs 10/20/19 10/20/19 10/20/19 10/20/19 01:16 06:00 07:10 07:28 Temp 36.5 Pulse 98 Resp 13 B/P (MAP) 157/80 (105) Pulse Ox 91 O2 Delivery Vapotherm O2 Flow Rate 30.00 FiO2 55 Capillary Refill : Less Than 3 Seconds I&O Intake and Output 10/20/19 00:00 Intake Total 3544.5 ml Output Total 4975 ml Balance -1430.5 ml Intake Oral 2660 ml IV Total 884.5 ml Output Urine Total 4975 ml General: Alert, Oriented X3, Cooperative HEENT: Atraumatic, PERRLA Neck: Supple, No JVD, No Thyromegaly Lungs: Normal Air Movement, Other (Bilateral wheezing, rhonchi) Heart: Regular Rate, Normal S1, Normal S2, No Murmurs Abdomen: Normal Bowel Sounds, Soft, No Tenderness, No Hepatosplenomegaly, No Masses Extremities: No Clubbing, No Cyanosis, Normal Pulses, No Tenderness/Swelling, Other (Trace edema) Skin: No Rashes, No Breakdown, No Significant Lesion Neuro: Normal Gait, Normal Speech, Strength at 5/5 X4 Ext, Normal Tone, Sensation Intact Psych/Mental Status: Mental Status NL, Mood NL Results Lab Laboratory Tests 10/20/19 03:26 A/P-Cardiology Admission Diagnosis Pneumonia Acute respiratory failure Coronary artery disease Hypertension Assessment/Plan Pneumonia, acute respiratory failure, possible ARDS, on Vapotherm. Managed by Dr. Bowen History of COPD, using oxygen at home, worsening at this time, maintained on Vapotherm Mild elevation of BNP returned to normal, had echocardiogram done in August 2019 reported ejection fraction 50-55 percent, grade 1 diastolic dysfunction, pulmonary artery pressure of 35 mmHg. Continue to monitor Coronary artery disease, reported history of angioplasty to a small artery in 2001, most recent cardiac catheterization done October 2017 revealed nonobstructive disease, continue to monitor. History of transient ischemic attack, was hospitalized in June 2017, no source of embolization was noted, fully recovered Paroxysmal atrial fibrillation, had a reported history of atrial fibrillation in August 2019, at that time she was seen by Dr. Hamm, maintained on Eliquis History of pulmonary embolism, ,maintained on Eliquis Hypertension, labile blood pressure, had history of hypotension and dizziness, continue to monitor blood pressure Hyperlipidemia, continue to monitor COPD, using oxygen at home at night. Followed by Dr. Bowen BMI is 40, discussed weight loss and exercise Diabetes mellitus, followed and managed by primary care physician Peripheral neuropathy, generalized body ache. Clinical Quality Measures DVT/VTE Risk/Contraindication: Risk Factor Score Per Nursin RFS Level Per Nursing on Admit: 4+=Very High LATRICIA MIRANDA MD Oct 20, 2019 07:40
[2019-10-20] MEDS: UMECLIDINIUM BROMIDE (INCRUSE ELLIPTA) 7'S IH SCH (07:50)
[2019-10-20] MEDS: ADVAIR HFA 115/21 MCG INHALER 8 GM IH SCH ×2 (07:51→18:49)
[2019-10-20] MEDS: LINAGLIPTIN (TRADJENTA) 5 MG TABLET PO SCH (08:15)
[2019-10-20] MEDS: APIXABAN 5 MG (ELIQUIS) TABLET PO SCH ×2 (08:15→21:01)
[2019-10-20] MEDS: CYCLOBENZAPRINE 10 MG (FLEXERIL) TAB PO SCH ×3 (08:15→21:01)
[2019-10-20] MEDS: SENNA W/DOCUSATE (SENOKOT S) TABLET PO SCH ×2 (08:15→21:00)
[2019-10-20] MEDS: MELOXICAM 7.5 MG (MOBIC) TABLET PO SCH (08:15)
[2019-10-20] MEDS: PREGABALIN 150 MG (LYRICA) CAPSULE PO SCH ×3 (08:16→21:01)
[2019-10-20] MEDS: NS IV 500 ML 500 ML IV SCH ×2 (08:16→21:02)
[2019-10-20] MEDS: OXYBUTYNIN (DITROPAN) 5 MG TAB PO SCH ×2 (08:16→21:01)
[2019-10-20] MEDS: VANCOMYCIN 1250 MG/NS 250 ML IVPB IV SCH ×4 (08:16→21:02)
[2019-10-20] MEDS: LOSARTAN 25 MG (COZAAR) TAB PO SCH (08:16)
[2019-10-20] MEDS: NYSTATIN CREAM (MYCOSTATIN) 30 GM TUBE TP SCH ×3 (08:17→21:07)
--- NOTE | 2019-10-20 09:04 | Diagnostic Imaging Report ---
EXAMINATION: Chest radiograph, portable AP view. DATE: 10/20/2019 4:31 AM hours. INDICATION: 54-year-old female, shortness of breath. COMPARISON: October 19, 2019. FINDINGS: Stable overall appearance of the cardiomediastinal silhouette. There is no identified pneumothorax. There is multifocal airspace consolidation in both lungs which is unchanged. IMPRESSION: 1. Unchanged multifocal nonspecific lung consolidation bilaterally. Dictated by: Dictated on workstation # [id number]
--- NOTE | 2019-10-20 10:14 | Physical Therapy Progress Note ---
Therapy Progress Note RN requested a Hold on this date due to patients SAO2 decreases to 70% on vapotherm with turning in bed and requiring a long recovery. Per RN, patient may be intubated, however, is declining at this time. PT will continue to monitor patient status and initiate with patient is medically stable. ROMAN KELLEY PT Oct 20, 2019 10:14
--- NOTE | 2019-10-20 11:01 | Progress Note - Hospitalist ---
CHEPE RIVERA,MED STUDENT 10/20/19 1101: Subjective HPI/CC On Admission Date Seen by Provider: Oct 20, 2019 Time Seen by Provider: 08:00 CC: Recurrent PNA HPI: This is a 54yoWF clinic patient of [facility] known to me from multiple hospital stays most recent DC Saturday for PNA after she refused NH placement and went home and just sat in her recliner and had fecal and urinary incontinence because she was too weak to get up. She has since experienced periarea pain from chafing and yeast involvement and hypoxia and elevated wbc from recurrent PNA. DM will be managed along with other home meds along with Dr Parmar consultation for elevated BNP. Subjective/Events-last exam Patient states her breathing is slightly improved this morning, and doesn't feel as SOB at time of exam. Vapotherm now at 55% and SpO2 has been 92-94%. Dr. Bowen discussed with the patient potentially placing her on vent, which she is reluctant to do, however she stated her understanding. Negative for influenza A & B, and negative for MRSA. CXR this morning shows stable bilateral nonspecific consolidations. Focused Exam Lactate Level 10/17/19 15:13: Lactic Acid Level 1.83 Objective Exam Vital Signs Vital Signs Date Time Temp Pulse Resp B/P (MAP) Pulse Ox O2 Delivery O2 Flow Rate FiO2 10/20/19 11:00 102 25 162/86 (111) 97 Vapotherm 30.00 55.00 10/20/19 08:00 55 10/20/19 01:16 36.5 Capillary Refill : Less Than 3 Seconds General Appearance: No Apparent Distress, Chronically ill, Obese HEENT: No Pale Conjunctivae (L), No Pale Conjunctivae (R), No Scleral Icterus (L), No Scleral Icterus (R) Respiratory: No Accessory Muscle Use, No Respiratory Distress, Decreased Breath Sounds, Wheezing Cardiovascular: Regular Rate, Rhythm, No Murmur Gastrointestinal: Normal Bowel Sounds, Non Tender, Soft; No Guarding Extremity: Normal Capillary Refill, Non Tender, No Calf Tenderness Neurologic/Psychiatric: Alert, Oriented x3, Normal Mood/Affect Results/Procedures Lab Laboratory Tests 10/20/19 03:26 Patient resulted labs reviewed. Assessment/Plan Assessment and Plan Assess & Plan/Chief Complaint Assessment: PNA Hypoxia Leukocytosis Hx of PAF Hx of PE HTN Diabetes mellitus Hx of pancreatitis GERD s/p EGD/Colonoscopy 3 months ago Anxiety Depression Morbid Obesity Hx of UTI ESBL Plan: Viral panel pending Blood cultures pending BNP returned to normal Vapotherm now at 55% -continue weaning as tolerated Continue meropenem, consider stopping vanc Continue home DM meds Clinical Quality Measures DVT/VTE Risk/Contraindication: Risk Factor Score Per Nursin RFS Level Per Nursing on Admit: 4+=Very High KENDRA URBINA DO 10/20/19 1436: Subjective Subjective/Events-last exam Pt still having some difficulty breathing on Vapotherm Dr. Bowen talked to her about being on the Ventilator and we did talk about that a great deal White count remains elevated at 17 MRSA was negative, still on Vanc and Meropenem Pt very complex May end up being an inpatient rehab candidate if we can stabilize her Review of Systems Pulmonary: Dyspnea Objective Exam General Appearance: No Apparent Distress, WD/WN, Chronically ill Respiratory: Accessory Muscle Use, Decreased Breath Sounds, Wheezing Cardiovascular: Regular Rate, Rhythm, No Edema, No Gallop, No JVD, No Murmur, Normal Peripheral Pulses Neurologic/Psychiatric: Alert, Oriented x3, No Motor/Sensory Deficits, Normal Mood/Affect Diagnosis/Problems Diagnosis/Problems (1) Pneumonia Status: Acute (2) Decubitus ulcer Status: Acute (3) Weakness generalized Status: Acute (4) Urinary tract infection Status: Resolved (5) Uncontrolled diabetes mellitus with hyperglycemia Status: Chronic (6) RESPIRATORY FAILURE, UNSP, UNSP W HYPOXIA OR HYPERCAPNIA Status: Resolved (7) ESBL (extended spectrum beta-lactamase) producing bacteria infection Status: Resolved Supervisory-Addendum Brief Verification & Attestation Participated in pt care: history, MDM, physical Personally performed: exam, history, MDM, supervision of care Care discussed with: Medical Student Procedures: n/a Results interpretation: Verified all documentation Verification and Attestation of Medical Student E/M Service A medical student performed and documented this service in my presence. I reviewed and verified all information documented by the medical student and made modifications to such information, when appropriate. I personally performed the physical exam and medical decision making. Kendra Urbina, Oct 20, 2019,20:02 CHEPE RIVERA,MED STUDENT Oct 20, 2019 11:01 KENDRA URBINA DO Oct 20, 2019 14:36
[2019-10-20] MEDS: SUMAtriptan 50 MG (IMITREX) TAB PO PRN (11:58)
--- NOTE | 2019-10-20 12:04 | Occ Therapy Progress Note ---
Therapy Progress Note It was reported to this therapist to hold treatment at this time on pt. Will continue to monitor and evaluate when medically appropriate. [id number] RAJNI BROWN OT Oct 20, 2019 12:03
--- NOTE | 2019-10-20 14:08 | NUR ---
CM/SS: Visited with pt as to her current status and plan when time for discharge Plan: To be determined when pt is deemed appropriate to discharge, pt has had [facility] in [place] in he past. Summary: Pt has been readmitted after only being home for a few days. Pt reports being more short of breath and needed to return to the hospital. Pt's family is in the room and are talking with her. Pt is letting them know that she does not want to be on the vent as her on the vent. Family are talking about the situation. Pt seems to not put together that spouse had some other issues going on as well at the time he was on the vent. This pt is known to this worker. This worker will check back with pt as her condition improves.
[2019-10-20 16:44] LABS: PARAINFLU 1 PCR Not Detected (Not Detected); PARAINFLU 2 PCR Not Detected (Not Detected); RSV PCR TEST Not Detected (Not Detected)
[2019-10-20] MEDS ORDERED: NON-FORMULARY MEDICATION 1 EA EA (Dulaglutide (Trulicity) 0.75 MG) SC SCH (18:45)
[2019-10-20] MEDS: ALPRAZolam 0.25 MG (XANAX) TAB PO PRN (21:00)
[2019-10-20] MEDS: AMITRIPTYLINE 25 MG (ELAVIL) TAB PO SCH (21:00)
[2019-10-20] MEDS: ROSUVASTATIN 20 MG (CRESTOR) TABLET PO SCH (21:01)
[2019-10-21] VITALS (28 sets, daily range): BP systolic 101–171; BP diastolic 56–98
--- OUTSIDE RECORDS SUMMARY | 2019-10-21 00:51 | XMS REPORT | Encounter Summary ---
Author Author [facility] Address Unknown Phone Unavailable Care Team Providers Care Regulatory Process Manager Name Role Phone PCP Unavailable Encounter Details Care Team Description Date Type Department Osvaldo Rao MD [address] [place] [address] [phone] Manolo Tamayo MD [address] [place] [address] [phone] Syncope and collapse 08/24/2013 [facility] al Encounter [address] [place], [place] [id number] Social History Date Tobacco Use Types Packs/Day Years Used Never Assessed Sex Assigned at Date Recorded Not on file Industry Job Start Date Occupation Not on file Not on file Not on file Travel End Travel History Travel Start No recent travel history available. documented as of this encounter Discharge Summaries * Osvaldo Rao MD - 10/08/2013 3:34 PM MOTORCYCLE MECHANIC APPRENTICE REPORT Name: MARYANNE ROCK Date of : [...] ORAL 20 mg Bedtime Osvaldo Rao MD [id number] RCYCLE MECHANIC APPRENTICE documented in this encounter H&P Notes * Osvaldo Rao MD - 10/08/2013 3:34 PM MOTORCYCLE MECHANIC APPRENTICE REPORT Name: MARYANNE ROCK Date of : 1965 Attending Physician: Date of Admission: 08/24/2013 01:23:00 PRIMARY CARE PHYSICIAN: Shira Davenport in [place]. CHIEF COMPLAINT: Left-sided weakness, possible syncopal event. HISTORY OF PRESENT ILLNESS: Mrs. Rock is a 48-year-old female who is left-handed, who presented to [facility] Emergency Department after she had a [...] Noncompliance. 9. CAD. No prior history of DE or heart failure. 10. Recent EGD that she reports is normal. PAST SURGICAL HISTORY: Includes: 1. Cholecystectomy and appendectomy in 1980. 2. Partial hysterectomy with left ovary and tube removal in 1991 for nonmalignant reasons. 3. Left heart catheterization in 2004, seen at [facility]. At that time, she was told she [...] 10. Metformin 1000 mg twice daily. 11. Weed-3 fish oil 1000 mg daily. 12. Pantoprazole [...] MD Dictated By: Crystal Aparicio RN, ANP [id number] CC: RCYCLE MECHANIC APPRENTICE documented in this encounter Consult Notes * Jovita Najera MD - 10/08/2013 3:34 PM MOTORCYCLE MECHANIC APPRENTICE REPORT Name: MARYANNE ROCK Date of : 1965 Attending Physician: Date of Admission: 08/24/2013 Final Assembly And Packing Supervisor: Jovita Najera MD Date of Consultation: 08/24/2013 [...] bathroom and apparently fell backwards into her ponfsswd-hx-uhx. She seemed a little bit confused and [...] with her . They live in the [facility]. She smokes 6 cigarettes per day. She [...] left. For me, she reported equal sensation. Nhdodp-pnxo-uechal shows no dysmetria nor ataxia. Toes are downgoing. I did not assess her ambulation. Rapid alternating movements are normal in both hands. Flpwsa-slsk-wsipdk testing is normal in both hands. IMPRESSION: [...] home but thinks that her doctor at [place] checks it. She and her family tell [...] Thanks for the consult. Jovita Najera MD [id number] CC: RCYCLE MECHANIC APPRENTICE documented in this encounter Plan of Treatment Not on filedocumented as of this encounter Procedures Comments Procedure Name Priority Date/Time Associated Diag nosis ECHO TRANSTHORACIC Routine 08/24/2013 2:29 PM MOTORCYCLE MECHANIC APPRENTICE GLUCOSE POC Routine 08/24/2013 11:47 AM MOTORCYCLE MECHANIC APPRENTICE MRI HEAD WO CONTRAST Routine 08/24/2013 10:20 AM MOTORCYCLE MECHANIC APPRENTICE TROPONIN Routine 08/24/2013 10:00 AM MOTORCYCLE MECHANIC APPRENTICE THYROID STIMULATING Routine 08/24/2013 HORMONE 10:00 AM MOTORCYCLE MECHANIC APPRENTICE US VENOUS DUPLEX LOWER Routine 08/24/2013 EXTREMITY BILAT 8:12 AM MOTORCYCLE MECHANIC APPRENTICE GLUCOSE POC Routine 08/24/2013 7:47 AM MOTORCYCLE MECHANIC APPRENTICE GLUCOSE POC Routine 08/24/2013 5:57 AM MOTORCYCLE MECHANIC APPRENTICE ARTERIAL BLOOD GAS Routine 08/24/2013 1:40 AM MOTORCYCLE MECHANIC APPRENTICE LIPID PANEL Routine 08/24/2013 1:15 AM MOTORCYCLE MECHANIC APPRENTICE ALCOHOL SERUM Routine 08/24/2013 1:[address]CLE [address]ANIC [address] ANGIO NECK Routine 08/24/2013 1:[address]ORCYCLE MECHANIC AP[address] CT ANGIO HEAD AND Routine 08/24/2013 PERFUSION P 12:59 AM MOTORCYCLE MECHANIC APPRENTICE XR CHEST SINGLE VIEW Routine 08/24/2013 FRONTAL 12:58 AM MOTORCYCLE MECHANIC APPRENTICE URINE NITRITE Routine 08/24/2013 12:30 AM MOTORCYCLE MECHANIC APPRENTICE URINALYSIS (INCLUDES Routine 08/24/2013 MICROSCOPIC REVIEW, IF 12:30 AM MOTORCYCLE MECHANIC APPRENTICE INDICATED) TOXICOLOGY SCREENING Routine 08/24/2013 PANEL 12:30 AM MOTORCYCLE MECHANIC APPRENTICE INFLUENZA AB ANTIGEN Routine 08/24/2013 12:10 AM MOTORCYCLE MECHANIC APPRENTICE TROPONIN Routine 08/24/2013 12:09 AM MOTORCYCLE MECHANIC APPRENTICE PROTEIN TOTAL SERUM Routine 08/24/2013 12:09 AM MOTORCYCLE MECHANIC APPRENTICE MAGNESIUM Routine 08/24/2013 12:09 AM MOTORCYCLE MECHANIC APPRENTICE HEMOGLOBIN A1C Routine 08/24/2013 12:09 AM MOTORCYCLE MECHANIC APPRENTICE COMPLETE BLOOD COUNT Routine 08/24/2013 12:09 AM MOTORCYCLE MECHANIC APPRENTICE COAGULATION SCREEN Routine 08/24/2013 12:09 AM MOTORCYCLE MECHANIC APPRENTICE BILIRUBIN TOTAL Routine 08/24/2013 12:09 AM MOTORCYCLE MECHANIC APPRENTICE BASIC METABOLIC PANEL Routine 08/24/2013 12:09 AM MOTORCYCLE MECHANIC APPRENTICE ASPARTATE Routine 08/24/2013 AMINOTRANSFERASE 12:09 AM MOTORCYCLE MECHANIC APPRENTICE ALKALINE PHOSPHATASE Routine 08/24/2013 12:09 AM MOTORCYCLE MECHANIC APPRENTICE ALBUMIN Routine 08/24/2013 12:09 AM MOTORCYCLE MECHANIC APPRENTICE ALANINE AMINOTRANSFERASE Routine 08/24/2013 12:09 AM MOTORCYCLE MECHANIC APPRENTICE CT HEAD WO CONTRAST Routine 08/23/2013 11:20 PM MOTORCYCLE MECHANIC APPRENTICE documented in this encounter Results * ECHO TRANSTHORACIC (08/24/2013 2:29 PM MOTORCYCLE MECHANIC APPRENTICE) Specimen Narrative Performed At [facility] RAD ECHOCARDIOGRAM REPORT [facility] Name: MARYANNE ROCK Date: 08/24/2013 14:29 Chart #: [id number] : 1965 Location: [facility] KEVEN Sono: [email or web address] Age: 48 Gender: F Referring: OSVALDO RAO Room #: NA14-1 Fellow: Indication:CVA Procedure: [id number] Complete Echo 2D/Color flow/Doppler BP: 138 / 69 HR: 90 Ht: [...] Ejection Fraction: 60 Normal left ventricular systolic functi on, with an estimated ejection fraction of 60%. Normal wall thickness. Normal wall motion. Normal left ventricular dimensions. Normal right ventricular size and systo lic function. Normal right and left atrial size. Mild diastolic dysfunction - normal LA pressure with mild abnormality in LV relaxation. Normal aortic valve without regurgitati on. Mildly thickened mitral valve leaflets with mild regurgitation. Normal pulmonic valve with trivial regu rgitation. Normal tricuspid valve with trivial reg urgitation. Unable to accurately estimate pulmonary artery pressure. No pericardial effusion. IVC is not well visualized. Normal ascending aorta dimensions. No obvious intracardiac masses or throm bi. No evidence for right to left shunting, following an injection of agitated saline. CONCLUSIONS: 1. Normal left ventricular systolic fun ction, with an estimated ejection fraction of 60%. 2. No significant valvular abnormalitie s. M.H. Michael Dior M.D. PhD. (Electronically Signed) Final Date: 24 August 2013 15:02 Procedure Note Interface, Rad Conversion - 10/20/2013 10:03 AM CDT RESULT ECHOCARDIOGRAM REPORT [facility] Name: MARYANNE ROCK Date: 08/24/2013 14:29 Chart #: [id number] : 1965 Location: [facility] IP Sono: [email or web address] Age: 48 Gender: F Referring: JAROCHO RAOSH Room #: NA14-1 Fellow: Indication:CVA Procedure: [id number] Complete Echo 2D/Colorflow/Doppler BP: 138 / 69 [...] saline. CONCLUSIONS: 1. Normal left ventricular systolic func tion, with an estimated ejection fraction of 60%. 2. No significant valvular abnormalities . Chelsi Dior M.D. PhD. (Electronically Signed) Final Date: 24 August 2013 15:02 Performing Organization Address [facility] one Number [facility] [address] [place] [address] * GLUCOSE POC (08/24/2013 11:47 AM MOTORCYCLE MECHANIC APPRENTICE) Only the most recent of 3 results within the time period is included. Glucose POC 235 (H) 70 - 100 MG/DL HLAB Specimen Blood Performing Organization Address [facility] one Number SLRL [address] [place], [place] [address] HLAB [address] [place] [address], [place] * MRI Head wo contrast (08/24/2013 10:20 AM MOTORCYCLE MECHANIC APPRENTICE) Specimen Narrative Performed At [facility] Patient: MARYANNE ROCK Phone #: Med Rec#: [id number] Sex: F : 1965 [place]#: [id number] Location: [place] [address] 01 Check-in#: [id number] Procedure Requested: [id number] MRI HEAD WO CONTRAST Reason For Exam: ics Exam Ordered: 08/24/2013 080 0 Exam Date/Time: 08/24/2013 1050 Check-in Date/Time: 08/24/2013 1523 Attendin HOSPITALISTJAYDE "" Requestin ANTIONETTE VELASCO Referrin BLANCA, REFERRING Primary Care: BLANCA, FAMILY MRI HEAD WO CONTRAST Aug 24, 2013 10:59:32 AM Indication: Dizziness of central origin and weakness. Comparison: Same day CT of the head wit h perfusion. Technique: Multiplanar multipulse seq uence imaging of the brain was performed without contrast. Findings: No areas of restricted diffusion to sug gest acute stroke. No intra or extra-axial mass or hemorrhage is ident ified. There is no midline shift. The peng-white matter junction is victor hugo l. Ventricles are of normal size, shape, a nd morphology. The basilar cisterns are patent. The paranasal sinuses are normal. The m astoid air cells are clear. The globes and orbits are intact. No extrac alvarial soft tissue abnormality. Normal flow voids are seen in the intra cranial arterial and venous structures indicating patency. Impression: No acute abnormalities of the brain per nonenhanced MRI. READING SITE: [facility]. ATTESTATION STATEMENT: The Staff Radiologist has personally re viewed the images and dictated, reviewed, or edited the final report. Signed (Authenticated, Released) Date-T radha: 08/24/2013 1556 Radio Frequency Technician- VINH ANDERSON M.D., Staff Radiologist Dictated By- JOHNSON ASH M.D. , Resident Staff Physician- VINH ANDERSON M.D., Staff Radiologist Authenticated By- VINH ANDERSON M.D., Staff Radiologist Procedure Note Interface, Rad Conversion - 10/09/2013 9:07 AM MOTORCYCLE MECHANIC APPRENTICE REPORT Patient: MARYANNE ROCK Phone #: [employer] Rec#: [id number] Sex: F : 1965 [place]#: [id number] Location: [place] [address] Check-in#: [id number] Procedure Requested: [id number] MRI HEAD WO CONTRAST Reason For Exam: [...] the brain per nonenhanced MRI. READING SITE: [facility]. ATTESTATION STATEMENT: The Staff Radiologist has personally reviewed the images and dictated, reviewed, or edited the final report. Signed (Authenticated, Released) Date-Time: 08/24/2013 1556 Radio Frequency Technician- VINH ANDERSON M.D., Staff Radiologist Dictated By- JOHNSON ASH M.D., Resident Staff Physician- VINH ANDERSON M.D., Staff Radiologist Authenticated By- VINH ANDERSON M.D., Staff Radiologist Performing Organization Address [facility] one Number YESSI * Troponin (08/24/2013 10:00 AM MOTORCYCLE MECHANIC APPRENTICE) Only the most recent of 2 results within the time period is included. Troponin <0.01 0.00 - 0.03 NG/ML HLAB Comment: Troponin Value Interpretation 0.00 - 0.03 Healthy 0.04 - 0.12 Increased Cardiac Risk >0.12 Myocardial Infarction Troponin may not become elevated until 6 to 8 hours after onset of symptoms. Specimen Blood Performing Organization Address [facility] one Number [address] [place] [address] HLAB [address] [place] [address], [place] * Thyroid Stimulating Hormone (08/24/2013 10:00 AM MOTORCYCLE MECHANIC APPRENTICE) Thyroid 1.16 0.47 - 4.68 UIU/ML HLAB Stimulating Hormone Specimen Blood Performing Organization Address [facility] one Number [address] [place] [address] HLAB [address] [place] [address], [place] * US Venous Duplex Lower Extremity bilat (08/24/2013 8:12 AM MOTORCYCLE MECHANIC APPRENTICE) Specimen Narrative Performed At REPORT [facility]ESSI Patient: MARYANNE ROCK Phone #: [employer] Rec#: [id number] Sex: F : 1965 [place]#: [id number] Location: [place] [address] Check-in#: [id number] Procedure Requested: [id number] US VENOUS DU PLEX BILAT LOWER EXT Reason For Exam: LIMB PAIN Exam Ordered: 08/24/2013 075 8 Exam Date/Time: 08/24/2013 0842 Check-in Date/Time: 08/24/2013 1138 Attendin HOSPITALIST, JAYDE MEADOWS "" Requestin OSVALDO RAO Referrin NO, REFERRING Primary Care: Treva RIOS, FAMILY DR SUNG VENOUS DUPLEX BILAT LOWER EXT Aug 24, 2013 08:42:41 AM Clinical Indication: LIMB PAIN Comparison: None. Technique: Ultrasound duplex examinatio n of the bilateral lower extremity venous system was performed. Findings: All visualized segments of th e common femoral, greater saphenous, superficial femoral, profund a femoris, popliteal vein are patent with good compressibility and au gmentation. The calf veins are patent. Impression: No bilateral lower extremity DVT. READING SITE: [facility] ATTESTATION STATEMENT: The Staff Radiologist has personally re viewed the images and dictated, reviewed, or edited the final report. Signed (Authenticated, Released) Date-T radha: 08/26/2013 1314 Radio Frequency Technician- DIONTE Reid, Staff Radiologist Dictated By- JACKIE REEDER M.D., Re sident Staff Physician- DIONTE Salmon, Staff Radiologist Authenticated By- DIONTE Reid, Staff Radiologist Procedure Note Interface, Rad Conversion - 10/09/2013 9:04 AM MOTORCYCLE MECHANIC APPRENTICE REPORT Patient: MARYANNE ROCK Phone #: Med Rec#: [id number] Sex: F : 1965 [place]#: [id number] Location: [place] [address] Check-in#: [id number] Procedure Requested: [id number] US VENOUS DUPLEX BILAT LOWER EXT Reason For Exam: LIMB PAIN Exam Ordered: 08/24/2013 0758 Exam Date/Time: 08/24/2013 0842 Check-in Date/Time: 08/24/2013 1138 Attendin HOSPITALIST, PHYSICIAN "" Requestin OSVALDO RAO Referrin TOMMY RIOS DR Primary Care: Treva RIOS, FAMILY DR SUNG VENOUS DUPLEX BILAT LOWER [...] No bilateral lower extremity DVT. READING SITE: [facility] ATTESTATION STATEMENT: The Staff Radiologist has personally reviewed the images and dictated, reviewed, or edited the final report. Signed (Authenticated, Released) Date-Time: 08/26/2013 6436 Radio Frequency Technician- DIONTE GARRETT M.D., Staff Radiologist Dictated By- JACKIE REEDER M.D., Resident Staff Physician- DIONTE GARRETT M.D., Staff Radiologist Authenticated By- DIONTE GARRETT M.D., Staff Radiologist Performing Organization Address [facility] Ph one Number [facility] * Arterial Blood Gas (08/24/2013 1:40 AM MOTORCYCLE MECHANIC APPRENTICE) [facility] pH Arterial 7.37 7.36 - 7.44 UNITS HLAB pCO2 Arterial 39 35 - 45 MM HG HLAB PO2 Arterial 83 80 - 100 MM HG HLAB Base Excess -2.0 -3.0 - 3.0 MEQ/L HLAB Bicarbonate 22.4 19.0 - 29.0 MEQ/L HLAB Patient Temp 37.0 C HLAB Celsius Sample Site Radial right HLAB Device RA HLAB Mode SV HLAB Specimen Arterial Performing Organization Address [facility] Ph one Number [address] [place], [place] [address] HLAB [address] [place], [place] [address] * Alcohol Serum (08/24/2013 1:15 AM MOTORCYCLE MECHANIC APPRENTICE) [facility] Alcohol Serum <10 0 - 9 MG/DL HLAB Specimen Blood Performing Organization Address [facility]/Zipcode Ph one Number [address]RL [address] [place], [place] [address] HLAB [address] [place], [place] [address], [place] * Lipid Panel (08/24/2013 1:15 AM MOTORCYCLE MECHANIC APPRENTICE) Cholesterol 167 100 - 200 MG/DL HLAB Triglycerides 477 (H) 0 - 150 MG/DL HLAB HDL Cholesterol 24 (L) 40 - 110 MG/DL HLAB LDL Cholesterol Not CalcComment: Unable to 0 - 99 MG/DL HL AB calculate LDL due to Triglycerides > 400 mg/dl Cholesterol/HDL 7.0 (H) 0.0 - 4.5 HLAB Ratio Non-HDL 143 (H) 0 - 130 MG/DL HLAB Cholesterol Specimen Blood Performing Organization Address City/State[facility] one Number [facility] [address] [place], [place] [address] HLAB [address] [place] [address], [place] * CT Angio Neck (08/24/2013 1:00 AM MOTORCYCLE MECHANIC APPRENTICE) Specimen Narrative Performed At [facility] Patient: MARYANNE ROCK Phone #: [employer] Rec#: [id number] Sex: F : 1965 [place]#: [id number] Location: [place] [address] Check-in#: [id number] Procedure Requested: [id number] CT ANGIO NEC K Reason For Exam: SYNCOPE Exam Ordered: 08/24/2013 004 7 Exam Date/Time: 08/24/2013 0120 Check-in Date/Time: 08/24/2013 1244 Attendin HOSPITALISTJAYDE "" Requestin ANTIONETTE VELASCO Referrin BLANCA, REFERRING DR Primary Care: BLANCA, FAMILY CT ANGIO NECK Aug 24, 2013 01:20:00 AM Indication: SYNCOPE Comparison: None. Technique: Multiple axial tomographic images of the head and neck were obtained without contrast. CT angiogr am of neck was obtained with bolus injection of 75 mL of Omnipaque 350. The images were sent to workstation and 3D volume rendering was performed. Findings: The carotid and vertebral origins appea r intact. Both carotid bifurcations show mild atherosclerotic plaque but no stenosis. Both carotid and vertebral demonstrate victor hugo l course in the neck. There is 0% stenosis of the bilateral ICAs based on NASCET criteria. The parotid, submandibular, and thyroid glands are normal. No cervical lymphadenopathy. The lung apices show b iapical subpleural focal fibrosis. Dental disease seen. IMPRESSION: Normal CTA of the neck with no carotid or vertebral disease seen. ATTESTATION STATEMENT: The Staff Radiologist has personally re viewed the images and dictated, reviewed, or edited the final report. READING SITE: [facility] Signed (Authenticated, Released) Date-T radha: 08/24/2013 1559 Radio Frequency Technician- AHSAN AMADO M.D., Staff Radiologist Dictated By- CARMENZA VELA M.D., Res ident Staff Physician- AHSAN Reid, Staff Radiologist Authenticated By- AHSAN AMADO M.D., Staff Radiologist Procedure Note Interface, Rad Conversion - 10/09/2013 9:07 AM MOTORCYCLE MECHANIC APPRENTICE REPORT Patient: MARYANNE ROCK Phone #: [employer] Rec#: [id number] Sex: F : 1965 [place]#: [id number] Location: [place] [address] Check-in#: [id number] Procedure Requested: [id number] CT ANGIO NECK Reason For Exam: SYNCOPE [...] or edited the final report. READING SITE: [facility] Signed (Authenticated, Released) Date-Time: 08/24/2013 8522 Radio Frequency Technician- AHSAN AMADO M.D., Staff Radiologist Dictated By- CARMENZA VELA M.D., Resident Staff Physician- AHSAN AMADO M.D., Staff Radiologist Authenticated By- AHSAN AMADO M.D., Staff Radiologist Performing Organization Address City/State/Zipcode Ph one Number YESSI * CT Angio Head and Perfusion P (08/24/2013 12:59 AM MOTORCYCLE MECHANIC APPRENTICE) Specimen Narrative Performed At REPORT [facility] Patient: MARYANNE ROCK Phone #: [employer] Rec#: [id number] Sex: F : 1965 [place]#: [id number] Location: [place] [address] Check-in#: [id number] Procedure Requested: [id number] CT ANGIO HEA D W WO AND PERFUS W P Reason For Exam: LEFT FACE, ARM, AND LEG PARALYSIS Exam Ordered: 08/24/2013 004 6 Exam Date/Time: 08/24/2013 0119 Check-in Date/Time: 08/24/2013 1249 Attendin JAYDE CHEEMA "" Requestin ANTIONETTE VELASCO Referrin BLANCA, REFERRING Primary Care: BLANCA, FAMILY CT ANGIO HEAD AND PERFUSION DATE: Aug 24, 2013 12:47:00 AM INDICATION: LEFT FACE, ARM, AND LEG PAR ALYSIS. COMPARISON: None. TECHNIQUE: CT Head (without contrast), CT Angiogram and CT Perfusion Head (with contrast) were performed. Multiple axial tomographic images of th e head were obtained without contrast. CT angiogram of head was ob tained with bolus injection of 75 mL of Omnipaque 350. The images were sent to workstation and 3D volume rendering was performed. Axial slices for perfusion were selected and CT perfusion head was performed with tyrese fran injection of 40 mL of Omnipaque 350. The images were sent t o workstation and mean transit time (MTT), cerebral blood flow (CBF), and cerebral blood volume (CBV) were calculated. FINDINGS: Examination is mildly limited secondary to patient motion and streak artifact, particularly near the skull b ase. There is no midline shift. No intra or extra-axial mass or hemorrhage is identified. Question small focus of lef t pontine low-attenuation (series 2, image #10). Otherwise, the peng-whit e matter differentiation is normal. The ventricles are normal in si ze, shape and location. No soft tissue abnormality seen. Visible sinuse s and orbits are normal. The CTA angiogram shows normal filling of both distal ICAs, anterior and middle cerebral artery branches. The ba silar and posterior cerebral arteries are normal. No arterial occlus ion is identified. No aneurysm is seen. The CT perfusion shows normal and symme trical mean transit time (MTT), cerebral blood flow (CBF) and cerebral blood volume (CBV). IMPRESSION: CT HEAD: Small focus of left pontine low-attenua tion which is more likely due to artifact from adjacent bone but difficu lt to exclude acute pontine infarct. Further evaluation with an MRI brain can be obtained. CT ANGIOGRAM: Normal CT angiogram of head. CT PERFUSION: Normal CT perfusion of head. The above results were verbally communi cated to the code neuro nurse by Dr. Hutchison at 1:24 a.m. on 08/24/2013. ATTESTATION STATEMENT: The Staff Radiologist has personally re viewed the images and dictated, reviewed, or edited the final report. Signed (Authenticated, Released) Date-T radha: 08/24/2013 1555 Radio Frequency Technician- AHSAN AMADO M.D., Staff Radiologist Dictated By- CARMENZA VELA M.D., Res ident Staff Physician- AHSAN Reid, Staff Radiologist Authenticated By- AHSAN AMADO M.D., Staff Radiologist Procedure Note Interface, Rad Conversion - 10/09/2013 9:07 AM MOTORCYCLE MECHANIC APPRENTICE REPORT Patient: MARYANNE ROCK Phone #: [employer] Rec#: [id number] Sex: F : 1965 [place]#: [id number] Location: [place] [address] Check-in#: [id number] Procedure Requested: [id number] CT ANGIO HEAD W WO AND PERFUS W P Reason For Exam: LEFT FACE, ARM, AND LEG PARALYSIS Exam Ordered: 08/24/2013 0046 Exam Date/Time: 08/24/2013 0119 Check-in Date/Time: 08/24/2013 1249 Attendin HOSPITALIST, PHYSICIAN "" Requestin ANTIONETTE VELASCO Referrin BLANCA, REFERRING DR Primary Care: BLANCA, FAMILY CT ANGIO [...] report. Signed (Authenticated, Released) Date-Time: 08/24/2013 1559 Radio Frequency Technician- AHSAN AMADO M.D., Staff Radiologist Dictated By- CARMENZA VELA M.D., Resident Staff Physician- AHSAN AMADO M.D., Staff Radiologist Authenticated By- AHSAN AMADO M.D., Staff Radiologist Performing Organization Address City/State/Zipcode Ph one Number YESSI * XR Chest single view frontal (08/24/2013 12:58 AM MOTORCYCLE MECHANIC APPRENTICE) Specimen Narrative Performed At REPORT [facility] Patient: MARYANNE ROCK Phone #: [employer] Rec#: [id number] Sex: F : 1965 [place]#: [id number] Location: [place] [address] Check-in#: [id number] Procedure Requested: [id number] DX CHEST SIN GLE VIEW Reason For Exam: COUGH Exam Ordered: 08/24/2013 004 7 Exam Date/Time: 08/24/2013107 Check-in Date/Time: 08/24/2013 0807 Attendin TRAVISISTJAYDE "" Requestin ANTIONETTE VELASCO Referrin NO, REFERRING Primary Care: NO, FAMILY DR BOYD CHEST SINGLE VIEW INDICATION: COUGH. COMPARISON STUDY: None. FINDINGS: Lungs: The lung volume is normal. No fo aundrea airspace disease. Normal pulmonary vasculature. Pleura: No pleural effusion or pneumoth orax. Heart and Mediastinum: The cardiomedias tinal silhouette and great vessels are stable. Bones: Osseous structures are intact. IMPRESSION: No acute cardiopulmonary process. ATTESTATION STATEMENT: The Staff Radiologist has personally re viewed the images and dictated, reviewed, or edited the final report. READING SITE: [facility]. Signed (Authenticated, Released) Date-T radha: 08/24/2013 1319 Radio Frequency Technician- YOVANI DIAZ M.D., Staff Radiologist Dictated By- CARMENZA VELA M.D., Res ident Staff Physician- YOVANI COOK M.D., Staff Radiologist Authenticated By- YOVANI DIAZ M.D., Staff Radiologist Procedure Note Interface, Rad Conversion - 10/09/2013 9:08 AM MOTORCYCLE MECHANIC APPRENTICE REPORT Patient: MARYANNE ROCK Phone #: Med Rec#: [id number] Sex: F : 1965 [place]#: [id number] Location: [place] [address] Check-in#: [id number] Procedure Requested: [id number] DX CHEST SINGLE VIEW Reason For Exam: COUGH Exam Ordered: 08/24/2013 0047 Exam Date/Time: 08/24/2013107 Check-in Date/Time: 08/24/2013 0807 Attendin HOSPITALIST, PHYSICIAN "" Requestin ANTIONETTE VELASCO Referrin NO, REFERRING Primary Care: NO, FAMILY DX CHEST SINGLE VIEW INDICATION: COUGH. COMPARISON STUDY: [...] or edited the final report. READING SITE: [facility]. Signed (Authenticated, Released) Date-Time: 08/24/2013 1319 Radio Frequency Technician- YOVANI SEO M.D., Staff Radiologist Dictated By- CARMENZA VELA M.D., Resident Staff Physician- YOVANI SEO M.D., Staff Radiologist Authenticated By- YOVANI SEO M.D., Staff Radiologist Performing Organization Address [facility] Ph one Number MCKESSON * Urinalysis (08/24/2013 12:30 AM MOTORCYCLE MECHANIC APPRENTICE) Appearance, Yellow [facility] Urine Specific 1.021 1.001 - 1.030 [facility] [place], UA PH Urine 5.5 5.0 - 8.0 [facility] Hemoglobin Negative Negative [facility] Urine Leukocyte Negative Negative [facility] Esterase Bilirubin Urine Negative Negative [facility] Glucose Urine >=1000 (A) Negative MG/DL [facility] Ketones Urine Negative Negative MG/DL [facility] Protein Urine Negative Negative MG/DL [facility] Qual Urobilinogen Negative Negative EU/DL [facility] Urine Specimen Urine Performing Organization Address [facility] Ph one Number [address] [place], [place] [address] [facility] [address] [place], [place] [address], [place] * Urine Nitrite (08/24/2013 12:30 AM MOTORCYCLE MECHANIC APPRENTICE) Pathologist [facility] Nitrite Urine Negative Negative [facility] Specimen Urine Performing Organization Address [facility] one Number [address] [place], [place] [address] [facility] [address] [place] [address], [place] * Toxicology Screening Panel (08/24/2013 12:30 AM MOTORCYCLE MECHANIC APPRENTICE) [facility] Amphetamines Not Detected Not Detected [facility] Urine Comment: Due to a automotive artist recall, we are temporarily unable to test [...] values: Assay Cutoff value Assay Cutoff value Acetaminophen 5 ug/mL Methadone 300 ng/mL Amphetamines 1000 ng/mL Opiates 300 ng/mL Methamphetamines 1000 ng/mL Phencyclidine 25 ng/mL Barbiturates 300 ng/mL THC 50 ng/mL Benzodiazepines 300 ng/mL Tricyclic Antidepressants 1000 ng/mL Cocaine 300 ng/mL This drug screen provides presumptive results for medical purposes only. False positive results may occur. Physicians should order confirmatory testing on this sample if the results are considered clinically significant. Specimen Urine Performing Organization Address [facility] one Number [address] [place] [phone] 11 [facility] [address] [place] [address], [place] * Influenza AB Antigen (08/24/2013 12:10 AM MOTORCYCLE MECHANIC APPRENTICE) Pathologist [facility] Influenza A Negative Negative [facility] Antigen Influenza B Negative Negative [facility] Antigen Specimen Specimen Performing Organization Address [facility] one Number [address] [place], [place] [address] [facility] [address] [place] [address], [place] * Complete Blood Count (08/24/2013 12:09 AM MOTORCYCLE MECHANIC APPRENTICE) [facility] WBC 12.54 (H) 4.00 - 11.00 TH/UL [...] - 0 /100 [facility] Specimen Blood Performing Organization Address [facility] one Number [address] [place] [address] 11 [facility] [address] [place] [address], [place] * Basic Metabolic Panel (08/24/2013 12:09 AM MOTORCYCLE MECHANIC APPRENTICE) Sodium 137 133 - 147 MEQ/L [facility] [...] mL/min/1.73 sq.m Specimen Blood Performing Organization Address [facility] one Number [address] [place] [address] [facility] [address] [place] [address], [place] * Magnesium (08/24/2013 12:09 AM MOTORCYCLE MECHANIC APPRENTICE) Magnesium 1.5 1.4 - 2.7 MG/DL [facility] Specimen Blood Performing Organization [facility] one Number [address] [place], [place] [address] [facility] [address] [place] [address], [place] * Coagulation Screen (08/24/2013 12:09 AM MOTORCYCLE MECHANIC APPRENTICE) Protime 12.8 11.7 - 14.3 SEC [facility] INR 1.0 0.9 - 1.1 [facility] APTT 27 22 - 34 SEC [facility] Fibrinogen 439 (H) 146 - 390 MG/DL [facility] Assay Specimen Blood Performing Organization [facility] one Number [address] [place] [address] 11 [facility] [address] [place] [address], [place] * Alanine Aminotransferase (08/24/2013 12:09 AM MOTORCYCLE MECHANIC APPRENTICE) Alanine 48 13 - 69 IU/L [facility] Aminotransferas e Specimen Blood Performing [facility] one Number [address] [place] [address] 11 [facility] [address] [place] [address], [place] * Albumin (08/24/2013 12:09 AM MOTORCYCLE MECHANIC APPRENTICE) Albumin 4.1 3.5 - 5.0 G/DL [facility] Specimen Blood Performing [facility] one Number [address] [place], [place] [address] [facility] [address] [place] [address], [place] * Bilirubin Total (08/24/2013 12:09 AM MOTORCYCLE MECHANIC APPRENTICE) Bilirubin Total 0.6 0.2 - 1.3 MG/DL [facility] Specimen Blood Performing Organization [facility] one Number [address] [place], [place] [address] [facility] [address] [place] [address], [place] * Alkaline Phosphatase (08/24/2013 12:09 AM MOTORCYCLE MECHANIC APPRENTICE) Alkaline 66 42 - 140 IU/L [facility] Phosphatase Specimen Blood Performing Organization [facility] one Number [address] [place], [place] [address] [facility] [address] [place] [address], [place] * Aspartate Aminotransferase (08/24/2013 12:09 AM MOTORCYCLE MECHANIC APPRENTICE) Aspartate 34 15 - 46 IU/L [facility] Aminotransferas e Specimen Blood Performing Organization Address [facility] one Number [address] [place] [address] 11 [facility] [address] [place] [address], [place] * Protein Total Serum (08/24/2013 12:09 AM MOTORCYCLE MECHANIC APPRENTICE) Protein Total 8.2 6.0 - 8.2 G/DL [facility] Serum Specimen Blood Performing Organization Address [facility] one Number [address] [place], [place] [address] [facility] [address] [place] [address], [place] * Hemoglobin A1C (08/24/2013 12:09 AM MOTORCYCLE MECHANIC APPRENTICE) HEMOGLOBIN A1C 11.5 (H) 4.0 - 5.6 % [facility] Comment: Non-diabetic 4.0 - 5.6 % Prediabetes 5.7 - 6.4 % Diabetes >= 6.5 % Specimen Blood Performing Organization Address [facility] one Number [address] [place] [address] [facility] [address] [place] [address], [place] * CT Head wo contrast (08/23/2013 11:20 PM MOTORCYCLE MECHANIC APPRENTICE) Specimen Narrative Performed At [facility] Patient: MARYANNE ROCK Phone #: [employer] Rec#: [id number] Sex: F : 1965 [place]#: [id number] Location: [place] [address] Check-in#: [id number] Procedure Requested: CT HEAD WO C ONTRAST Reason For Exam: DECREASED LEVEL OF CONSCIOUSNESS Exam Ordered: 08/23/2013 231 6 Exam Date/Time: 08/23/2013 2330 Check-in Date/Time: 08/24/2013 1151 Attendin HOSPITALISTJAYDE "" Requestin ANTIONETTE VELASCO Referrin NO, REFERRING Primary Care: BLANCA, FAMILY CT of the head w/o contrast: Aug 23, 2013 11:21:16 PM Clinical Indication: Decreased level of consciousness. Comparison: None 5 mm axial tomographic images were obta ined to the head without contrast. These were viewed on brain an d bone windows. Findings: Evaluation is mildly limited by motion artifact, particularly on slices 21 through 24. Mild generalized cerebral volume loss. There is no midline shift. No intra or extra-axial mass or hemorrhage is identified. The peng-white matter junction is normal. The ventricl es are normal in size shape and location. No soft tissue abnormality seen. Visibl e sinuses and orbits are normal. No osseous destructive lesion. Impression: No acute intracranial process per unenh anced CT ATTESTATION STATEMENT: The Staff Radiologist has personally re viewed the images and dictated, reviewed, or edited the final report. READING SITE: [facility] Signed (Authenticated, Released) Date-T radha: 08/24/2013 1559 Radio Frequency Technician- AHSAN AMADO M.D., Staff Radiologist Dictated By- CARMENZA VELA M.D., Res ident Staff Physician- AHSAN Reid, Staff Radiologist Authenticated By- AHSAN AMADO M.D., Staff Radiologist Procedure Note Interface, Rad Conversion - 10/09/2013 9:07 AM MOTORCYCLE MECHANIC APPRENTICE REPORT Patient: MARYANNE ROCK Phone #: [employer] Rec#: [id number] Sex: F : 1965 [place]#: [id number] Location: [place] [address] Check-in#: [id number] Procedure Requested: [id number] CT HEAD WO CONTRAST Reason For Exam: DECREASED LEVEL OF CONSCIOUSNESS Exam Ordered: 08/23/2013 2316 Exam Date/Time: 08/23/2013 2330 Check-in Date/Time: 08/24/2013 1151 Attendin HOSPITALIST, PHYSICIAN "" Requestin ANTIONETTE VELASCO Referrin BLANCA, TOMMY GUIDRY Primary Care: BLANCA, FAMILY CT of the head w/o contrast: Aug 23, 2013 11:21:16 PM Clinical Indication: Decreased level of consciousness. Comparison: None 5 mm axial tomographic images were obtai vicente to the head without contrast. These were [...] or edited the final report. READING SITE: [facility] Signed (Authenticated, Released) Date-Time: 08/24/2013 5407 Radio Frequency Technician- AHSAN AMADO M.D., Staff Radiologist Dictated By- CARMENZA VELA M.D., Resident Staff Physician- AHSAN AMADO M.D., Staff Radiologist Authenticated By- AHSAN AMADO M.D., Staff Radiologist Performing Organization Address City/State/[facility] Ph one Number MLNOA documented in this encounter Visit Diagnoses Diagnosis Syncope and collapse documented in this encounter
--- OUTSIDE RECORDS SUMMARY | 2019-10-21 00:51 | XMS REPORT | Clinical Summary ---
Author Author [facility] Organization [facility] Address Unknown Phone Unavailable Care Team Providers Care Insulation Cutter Name Role Phone PCP Unavailable Allergies Not [...]
--- OUTSIDE RECORDS SUMMARY | 2019-10-21 00:52 | XMS REPORT ---
Author Author Selina, Moustapha Doctor Organization [facility] Address Unknown Phone Unavailable Care Team Providers Care Foreign Language Stenographer Name Role Phone Migration, Doctor Unavailable Unavailable PROBLEMS Type Condition ICD9-CM Code AKS08-YG Code Onset Dates Condition S tatus SNOMED Code Problem Diabetic polyneuropathy associated with type 2 d iabetes mellitus E11.42 Active 70973190 Problem Anxiety F41.9 Active 33677452 Problem CAD (coronary artery disease) I25.10 Active 08314316 Problem Left ventricular enlargement I51.7 A ctive 209136753 Problem Ulcer of right lower leg, with unspecified severity L97.919 Active 459690907 Problem Allergic rhinitis J30.9 Active 61 715720 Problem Essential hypertension I10 Active 31644672 Problem Type 2 diabetes mellitus with other skin ulcer E11 .622 Active 56631108 Problem Skin infection L08.9 Active 47764 5000 Problem Stress incontinence in female N39.3 Active 67395447 Problem Non-healing skin lesion L98.9 Active 54998375 Problem Cough R05 Active 558408121 Problem Foot swelling M79.89 Active 416699 003 Problem Atrial enlargement, left I51.7 Activ e [id number] Problem Pulmonary HTN I27.2 Active 651433 07 Problem Neuropathy G62.9 Active 271210731 Problem Stress incontinence of urine N39.3 A ctive 16341388 Problem Dyspepsia R10.13 Active 588979482 Problem 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 Active 803436650 Problem FDC 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 Active 317402704 Problem Chronic pain G89.29 Active 6554879 1 Problem Mixed hyperlipidemia E78.2 Active 228976301 Problem Type 2 diabetes mellitus with other circulatory compli cations E11.59 Active 58912941 Problem Urinary incontinence R32 Active 647904048 Problem Moderate episode of recurrent major depressive disorder F33.1 Active 559623204 ALLERGIES No Information ENCOUNTERS Encounter Location Date Diagnosis [address] [place] [address] Nov, [address] [place] [address] Sep, [address] [place] [address] Sep[address] [place] [address] Aug, [address] [place] [address] Aug, [address] [place] [address] Aug, Encounter for removal of sut ures Z48.02 ; Wheezing R06.2 ; Type 2 diabetes mellitus with other circulatory complications E11.59 ; Allergic rhinitis J30.9 ; Essential hypertension I10 ; Infection of toe L08.9 and Diabetic polyneuropathy associated with type 2 diabetes mellitus E11.42 [address] [place] [address] Aug, Right knee buckling M25.361 ; Essential hypertension I10 ; Type 2 diabetes mellitus with other circulatory complications E11.59 ; Mixed hyperlipidemia E78.2 ; Shortness of breath on exertion R06.02 ; Wheezing R06.2 ; Moderate episode of recurrent major depressive disorder F33.1 and Diabetic polyneuropathy associated with type 2 diabetes mellitus E11.42 [address] [place] [address] Aug, Type 2 diabetes mellitus wit h other circulatory complications E11.[address] [place] [address] Jul, [address] [place] [address] Jul, [address] [place] [address] Jul, Essential hypertension I10 [address] [place] [address] Jul, [address] [place] [address] Jun, Stomach pain R10.9 [address] [place] [address] Jun, Type 2 diabetes mellitus wit h other circulatory complications E11.59 ; Mixed hyperlipidemia E78.2 and Essential hypertension I10 [address] [place] [address] Jun, [address] [place] [address] Jun, [address] [place] [address] Jun, Oxygen decrease R09.02 ; Ess ential hypertension I10 and Stomach pain R10.9 [address] [place] [address] Jun, Type 2 diabetes mellitus wit h other circulatory complications E11.59 [address] [place] [address] Jun, FDC current use of ins ulin Z79.4 [address] [place] [address] Jun, [address] [place] [address] Jun, [address] [place] [address] Jun, [address] [place] [address] Jun, Bronchitis J40 ; Wheezing R0 6.2 and History of falling Z91.[address] [place] [address] Jun, [address] [place] [address] May, [address] [place] [address] May, Diabetic polyneuropathy asso ciated with type 2 diabetes mellitus E11.42 [address] [place] [address] May, Diabetic polyneuropathy asso ciated with type 2 diabetes mellitus E11.42 [address] [place] [address] Apr, [address] [place] [address] Apr, Essential hypertension I10 ; Type 2 diabetes mellitus with other circulatory complications E11.59 and Mixed hyperlipidemia E78.2 [address] [place] [address] Apr, Mixed hyperlipidemia E78.2 ; Type 2 diabetes mellitus with other circulatory complications E11.59 ; Essential hypertension I10 and Pain in joints of right hand M25.541 [address] [place] [address] Apr, Immunization counseling Z71. 89 ; medical terminologist 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 ; Type 2 diabetes mellitus with other circulatory complications E11.59 ; Food insecurity Z59.4 and Low-level of literacy Z55.0 [address] [place] [address] 05 Apr, 2019 Urinary pain R30.9 ; Hematur ia, unspecified type R31.9 ; Urinary tract infection without hematuria, site unspecified N39.0 ; Stress incontinence of urine N39.3 ; Essential hypertension I10 ; Mixed hyperlipidemia E78.2 ; Type 2 diabetes mellitus with other circulatory complications E11.59 and Pain in joints of right hand M25.541 [address] [place] [address] 04 Apr, 2019 Diabetic polyneuropathy asso ciated with type 2 diabetes mellitus E11.42 [address] [place] [address] Mar, [facility] [address] [place] [address] Mar, [facility] [address] [place] [address] Mar, [facility] [address] [place] [address] Mar, [facility] [address] [place] [address] Mar, [facility] [address] [place] [address] Mar, Diabetic polyneuropathy asso ciated with type 2 diabetes mellitus E11.42 [facility] [address] [place] [address] Feb, Type 2 diabetes mellitus wit h other circulatory complications E11.59 [facility] [address] [place] [address] Feb, Essential hypertension I10 [facility] [address] [place] [address] Feb, Diabetic polyneuropathy asso ciated with type 2 diabetes mellitus E11.42 [facility] [address] [place] [address] Feb, Type 2 diabetes mellitus wit h other circulatory complications E11.59 [facility] [address] [place] [address] Feb, [facility] [address] [place] [address] Feb, Moderate episode of recurren t major depressive disorder F33.1 [facility] [address] [place] [address] Feb, Wheezing R06.2 and Cough R05 [facility] [address] [place] [address] Jan, Diabetic polyneuropathy asso ciated with type 2 diabetes mellitus E11.42 [facility] [address] [place] [address] Jan, [address] [place] [address] Jan, Wheezing R06.2 and Cough R05 [address] [place] [address] Jan, Cough R05 ; Bronchitis J40 ; Wheezing R06.2 ; Unspecified superficial injury of left lesser toe(s), subsequent encounter S90.935D and Type 2 diabetes mellitus with other circulatory complications E11 .59 [address] [place] [address] Jan, [address] [place] [address] December, [address] [place] [address] December, [address] [place] [address] December, Encounter for removal of sut ures Z48.[address] [place] [address] December, Diabetic polyneuropathy asso ciated with type 2 diabetes mellitus E11.42 [facility] [address] [place] [address] December, [address] [place] [address] December, Infection of toe L08.[address] [place] [address] December, [facility] [address] [facility] [place] [address] December, Diabetic polyneuropathy associated with type 2 diabetes mellitus E11.42 ; FDC 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 ; Urinary incontinence R32 and Type 2 diabetes mellitus with other circulatory complications E11.59 [address] [facility] [place] [address] December, Essential hypertension I10 ; Type 2 diab etes mellitus with other circulatory complications E11.59 and Dizziness R42 [address] [facility] [place] [address] December, Dizziness R42 ; Essential hypertension I 10 and Type 2 diabetes mellitus with other circulatory complications E11.[address] [place] [address] Nov, Breast lump N63.[address] [place] [address] Nov, Breast lump N63.[address] [place] [address] Nov, Breast lump N63.[address] [place] [address] Nov, [address] [place] [address] Nov, Mixed hyperlipidemia E78.2 ; Essential hypertension I10 and medical terminologist 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 [place] [address] Nov, Essential hypertension I10 ; Breast cancer screening Z12.31 ; medical terminologist 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 ; Mixed hyperlipidemia E78.2 ; Dysuria R30.0 and Type 2 diabetes mellitus with other circulatory complications E11.59 [address] [facility] [place] [address] May, [id number] [place] [address] Apr, [address] [facility] [place] [address] Apr, Essential hypertension I10 and Diabetic polyneuropathy associated with type 2 diabetes mellitus E11.42 [address] [address] Mar, [address] [address] Feb, Onychomycosis B35.1 ; Neuropathy G62.9 a nd Diabetic polyneuropathy associated with type 2 diabetes mellitus E11.42 [address] [address] Feb, [address] [address] December, [address] [address] December, Herpes zoster without complication B02.9 ; Onychia of toe of left foot L03.032 ; Ingrowing toenail with infection L60.0 and Diabetic polyneuropathy associated with type 2 diabetes mellitus E11.42 [address] [address] December, [address] [address] Nov, [address] [address] Oct, Diabetic polyneuropathy associated with type 2 diabetes mellitus E11.42 [address] [address] Oct, Essential hypertension I10 and Diabetic polyneuropathy associated with type 2 diabetes mellitus E11.42 [address] [address] Sep, Diabetic polyneuropathy associated with type 2 diabetes mellitus E11.42 ; Type 2 diabetes mellitus with other skin ulcer E11.622 ; Chronic pain G89.29 ; Anxiety F41.9 ; Essential hypertension I10 ; Hypoxia R09.02 ; Atrial enlargement, left I51.7 and Left ventricular enlargement I51.7 [address] [address] Sep, [facility] [address] [address] Aug, [facility] [address] [address] Jul, [facility] [address] [address] Jul, [facility] [address] [address] Jul, CAD (coronary artery disease) I25.10 ; E ssential hypertension I10 ; Pulmonary HTN I27.2 ; Atrial enlargement, left I51.7 and Left ventricular enlargement I51.7 [address] [address] Jun, [facility] [address] [address] Jun, [facility] [address] [address] Jun, [facility] [address] [address] Jun, [facility] [address] [address] Jun, Diabetic polyneuropathy associated with type 2 diabetes mellitus E11.42 ; Type 2 diabetes mellitus with other skin ulcer E11.622 ; Chronic pain G89.29 ; Anxiety F41.9 ; Essential hypertension I10 ; Ulcer of right lower leg, with unspecified severity L97.919 ; Pulmonary HTN I27.2 ; Hypoxia R09.02 ; Atrial enlargement, left I51.7 and Left ventricular enlargement I51.7 [facility] [address] [address] May, [facility] [address] [address] 08 Apr, 2016 Diabetic polyneuropathy associated with type 2 diabetes mellitus E11.42 ; Type 2 diabetes mellitus with other skin ulcer E11.622 ; Chronic pain G89.29 ; Anxiety F41.9 ; Cough R05 ; Essential hypertension I10 and Ulcer of right lower leg, with unspecified severity L97.919 [address] [address] Mar, Diabetic polyneuropathy associated with type 2 diabetes mellitus E11.42 ; Chronic pain G89.29 ; Anxiety F41.9 ; Type 2 diabetes mellitus with other skin ulcer E11.622 ; Cough R05 ; Essential hypertension I10 and Ulcer of right lower leg, with unspecified severity L97.919 [address] [address] Feb, [address] [address] Feb, Diabetic polyneuropathy associated with type 2 diabetes mellitus E11.42 ; Chronic pain G89.29 ; Anxiety F41.9 ; Type 2 diabetes mellitus with other skin ulcer E11.622 ; Cough R05 and Essential hypertension I10 [address] [address] Jan, Chronic pain G89.29 ; Anxiety F41.9 and Foot swelling M79.[address] [address] December, Chronic pain G89.29 ; Anxiety F41.9 and Stress incontinence in female N39.[address] [address] December, [address] [address] Nov, [address] [address] Nov, [address] [address] Nov, [address] [address] Nov, Chronic pain G89.29 ; Anxiety F41.9 ; No n-healing skin lesion L98.9 and Type 2 diabetes mellitus with other skin ulcer E11.622 [facility] [address] [address] Nov, Diabetic polyneuropathy associated with type 2 diabetes mellitus E11.42 [facility] [address] [address] Nov, [facility] [address] [address] Nov, [facility] [address] [address] Nov, [address] [address] Nov, [address] [address] Nov, Diabetic polyneuropathy associated with type 2 diabetes mellitus E11.42 [address] [address] Oct, Diabetic polyneuropathy associated with type 2 diabetes mellitus E11.42 ; Essential hypertension I10 ; Chronic pain G89.29 ; Anxiety F41.9 and Skin infection L08.9 [address] [address] Oct, [address] [address] Sep, [address] [address] Sep, Diabetic polyneuropathy associated with type 2 diabetes mellitus E11.42 ; Chronic pain G89.29 ; Anxiety F41.9 and Allergic rhinitis J30.9 [address] [address] Aug, Diabetic polyneuropathy associated with type 2 diabetes mellitus E11.42 ; Chronic pain G89.29 ; Anxiety F41.9 and Allergic rhinitis J30.9 [address] [address] Jul, [address] [address] Jul, Diabetic polyneuropathy associated with type 2 diabetes mellitus E11.42 ; Dyspepsia R10.13 ; Essential hypertension I10 ; medical terminologist 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 ; CAD (coronary artery disease) I25.10 ; Chronic pain G89.29 ; Anxiety F41.9 ; Dysuria R30.0 and Pain of left lower leg M79.662 [address] [address] Jul, [address] [address] Jun, Diabetic polyneuropathy associated with type 2 diabetes mellitus E11.42 and FDC 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 [address] Jun, [address] [address] Jun, Neuropathy G62.9 ; Arthritis M19.90 ; Le g cramps R25.2 and Anxiety F41.[address] [address] May, [address] [address] May, [address] [address] May, Diabetic polyneuropathy associated with type 2 diabetes mellitus E11.42 [address] [address] May, [address] [address] Apr, [address] [address] Apr, [address] [address] Apr, [facility] [address] [address] Apr, [facility] [address] [address] Apr, [facility] [address] [address] Apr, [facility] [address] [address] Apr, Diabetes with renal manifestations, type II or unspecified type, uncontrolled 250.42 ; Coronary atherosclerosis of unspecified type of vessel, [place] or graft 414.00 ; Polyneuropathy in diabetes 357.2 ; Hypertension 401.9 ; Anxiety 300.00 ; GERD (gastroesophageal reflux disease) 530.81 and Type 2 diabetes mellitus with pressure callus 250.80 [address] [address] Mar, [facility] [address] [address] Mar, [facility] [address] [address] Mar, [facility] [address] [address] Mar, [facility] [address] [address] Mar, Diabetes with renal manifestations, type II or unspecified type, uncontrolled 250.42 ; Coronary atherosclerosis of unspecified type of vessel, [place] or graft 414.00 ; Polyneuropathy in diabetes 357.2 ; Hypertension 401.9 and Anxiety 300.00 [facility] [address] [address] Mar, Routine gynecological examination V72.31 ; Breast cancer screening V76.10 ; Recurrent urinary tract infection 599.0 ; Mastodynia 611.71 and Tobacco abuse 305.1 [facility] [address] [address] Feb, [facility] [address] [facility] [id number] [place] [address] Jan, [facility] [address] [id number] [place] [address] Jan, [facility] [address] [id number] [place] [address] Jan, [facility] [address] [id number] [place] [address] Jan, [facility] [address] [facility] [id number] [place] [address] December, [facility] [address] [id number] [place] [address] December, [facility] [address] [id number] [place] [address] Nov, [facility] [address] [id number] [place] [address] 14 Nov, 2014 [facility] [address] [id number] [place] [address] Nov, [facility] [address] [id number] [place] [address] Oct, [facility] [address] [id number] [place] [address] 19 Oct, 2014 [facility] [address] [id number] [place] [address] 16 Oct, 2014 [facility] [address] [id number] [place] [address] 16 Oct, 2014 [facility] [address] [facility] [id number] [place] [address] 16 Oct, 2014 [facility] [address] [id number] [place] [address] 16 Oct, 2014 [facility] [address] [id number] [place] [address] 16 Oct, 2014 [facility] [address] [id number] [place] [address] 16 Oct, 2014 [facility] [address] [facility] [id number] [facility] [place] [address] 16 Oct, 2014 [facility] [address] [id number] [facility] [place] [address] 16 Oct, 2014 [facility] [address] [id number] [place] [address] 16 Oct, 2014 [facility] [address] [id number] [place] [address] Oct, 2014 [facility] [address] [facility] [id number] [facility] [place] [address] Oct, [facility] [address] [id number] [facility] [place] [address] Oct, 2014 [facility] [address] [id number] [place] [address] Oct, [facility] [address] [id number] [place] [address] Oct, 2014 [facility] [address] [id number] [place] [address] Oct, [facility] [address] [id number] [place] [address] Oct, 2014 [facility] [address] [id number] [place] [address] Sep, 2014 [facility] [address] [id number] [place] [address] Sep, 2014 [facility] [address] [id number] [place] [address] Sep, 2014 [facility] [address] [id number] [place] [address] Sep, 2014 [facility] [address] [id number] [place] [address] Sep, 2014 [facility] [address] [id number] [place] [address] Sep, 2014 [facility] [address] [id number] [place] [address] Sep, 2014 [facility] [address] [id number] [place] [address] Sep, 2014 [facility] [address] [id number] [place] [address] Sep, 2014 [facility] [address] [id number] [place] [address] Sep, 2014 [facility] [address] [id number] [place] [address] Sep, 2014 [facility] [address] [id number] [place] [address] Sep, 2014 [facility] [address] [id number] [place] [address] Sep, 2014 [facility] [address] [id number] [place] [address] Sep, 2014 [facility] [address] [id number] [place] [address] Sep, [facility] [address] [id number] [place] [address] Aug, [facility] [address] [id number] [place] [address] Aug, [facility] [address] [id number] [place] [address] Aug, [facility] [address] [id number] [place] [address] Aug, [facility] [address] [id number] [place] [address] Aug, [facility] [address] [id number] [place] [address] Aug, [facility] [address] [id number] [place] [address] Aug, [facility] [address] [id number] [place] [address] 15 Aug, 2014 [facility] [address] [id number] [place] [address] Aug, [facility] [address] [id number] [place] [address] Aug, [facility] [address] [id number] [place] [address] Aug, [facility] [address] [id number] [place] [address] Aug, [facility] [address] [id number] [place] [address] Aug, [facility] [address] [id number] [place] [address] Jul, [facility] [address] [id number] [place] [address] Jul, [facility] [address] [id number] [place] [address] Jul, [facility] [address] [id number] [place] [address] Jul, [facility] [address] [id number] [place] [address] Jul, [facility] [address] [id number] [place] [address] Jul, [facility] [address] [id number] [place] [address] Jul, [facility] [address] [id number] [place] [address] Jul, [facility] [address] [id number] [place] [address] Jun, [facility] [address] [id number] [place] [address] Jun, [facility] [address] [id number] [place] [address] Jun, [facility] [address] [id number] [place] [address] Jun, [facility] [address] [id number] [place] [address] Jun, [facility] [address] [id number] [place] [address] Jun, [facility] [address] [id number] [place] [address] Jun, [facility] [address] [id number] [place] [address] Jun, [facility] [address] [id number] [place] [address] Jun, [facility] [address] [id number] [place] [address] Jun, [facility] [address] [id number] [place] [address] Jun, [facility] [address] [id number] [place] [address] Jun, [facility] [address] [id number] [place] [address] Jun, [facility] [address] [id number] [place] [address] Jun, [facility] [address] [id number] [place] [address] Jun, [facility] [address] [id number] [place] [address] Jun, [facility] [address] [id number] [place] [address] May, [facility] [address] [id number] [place] [address] May, [facility] [address] [id number] [place] [address] May, [facility] [address] [id number] [place] [address] May, [facility] [address] [facility] [id number] [place] [address] May, 2013 [facility] [address] [facility] [id number] [place] [address] May, 2013 [facility] [address] [id number] [place] [address] May, 2013 [facility] [address] [id number] [place] [address] May, 2013 [facility] [address] [facility] [id number] [place] [address] May, [facility] [address] [id number] [place] [address] Apr, [facility] [address] [id number] [place] [address] Apr, [facility] [address] [id number] [place] [address] Apr, [facility] [address] [id number] [place] [address] Apr, [facility] [address] [id number] [place] [address] Mar, [facility] [address] [id number] [place] [address] Mar, [facility] [address] [id number] [place] [address] Mar, [facility] [address] [id number] [place] [address] Mar, [facility] [address] [id number] [place] [address] Feb, [facility] [address] [id number] [place] [address] Feb, [facility] [address] [id number] [place] [address] Jan, [facility] [address] [id number] [facility] [place] [address] Jan, [facility] [address] [id number] [facility] [place] [address] Jan, [facility] [address] [facility] [id number] [place] [address] Jan, [facility] [address] [id number] [place] [address] Jan, [facility] [address] [facility] [id number] [place] [address] Jan, [facility] [address] [facility] [id number] [facility] [place] [address] Jan, [facility] [address] [id number] [place] [address] Jan, [facility] [address] [id number] [place] [address] Jan, [facility] [address] [id number] [place] [address] Jan, [facility] [address] [facility] [id number] [place] [address] Jan, [facility] [address] [id number] [place] [address] Jan, [facility] [address] [id number] [place] [address] Jan, [facility] [address] [id number] [place] [address] December, [facility] [address] [facility] [id number] [place] [address] December, [facility] [address] [id number] [place] [address] December, [facility] [address] [id number] [place] [address] December, [facility] [address] [id number] [place] [address] December, [facility] [address] [id number] [place] [address] Nov, [facility] [address] [id number] [place] [address] Nov, [facility] [address] [id number] [place] [address] Nov, [facility] [address] [id number] [place] [address] Nov, [facility] [address] [id number] [place] [address] Nov, [facility] [address] [id number] [place] [address] Nov, [facility] [address] [id number] [place] [address] Nov, [facility] [address] [id number] [place] [address] Nov, [facility] [address] [id number] [place] [address] Nov, [facility] [address] [id number] [place] [address] Nov, [facility] [address] [id number] [place] [address] Jun, [facility] [address] [id number] [place] [address] Jun, [facility] [address] [id number] [place] [address] May, [facility] [address] [id number] [place] [address] May, [facility] [address] [id number] [place] [address] May, [facility] [address] [id number] [place] [address] May, [facility] [address] [id number] [place] [address] May, [facility] [address] [id number] [place] [address] May, [facility] [address] [id number] [place] [address] May, [facility] [address] [id number] [place] [address] May, [facility] [address] [id number] [place] [address] May, [facility] [address] [id number] [place] [address] 25 Apr, 2011 [facility] [address] [id number] [place] [address] 25 Apr, 2011 [facility] [address] [id number] [place] [address] 25 Apr, 2011 [facility] [address] [id number] [place] [address] 21 Apr, 2011 [facility] [address] [id number] [place] [address] 20 Apr, 2011 [facility] [address] [id number] [place] [address] 19 Apr, 2011 [facility] [address] [id number] [place] [address] 05 Apr, 2011 [facility] [address] [id number] [place] [address] 04 Apr, 2011 [facility] [address] [id number] [place] [address] 28 Mar, 2012 [facility] [address] [id number] [place] [address] 27 Mar, 2012 [facility] [address] [id number] [place] [address] 16 Mar, 2012 [facility] [address] [id number] [place] [address] 14 Mar, 2012 [facility] [address] [id number] [facility] [address] Mar, [facility] [address] [facility] [id number] Mar, [facility] [address] [facility] [id number] [facility] [place] [address] Mar, [facility] [address] [facility] [id number] [facility] [place] [address] Feb, [facility] [address] [facility] [id number] [facility] [place] [address] Feb, [facility] [address] [facility] [id number] [facility] [place] [address] Feb, [facility] [address] [facility] [id number] [facility] [address] Feb, [facility] [address] [id number] [facility] [address] Feb, [facility] [address] [id number] [facility] [address] Feb, [facility] [address] [facility] [id number] [place] [address] Jan, [facility] [address] [id number] [facility] [address] Jan, [facility] [address] [id number] [place] [address] Jan, [facility] [address] [id number] [place] [address] Jan, [facility] [address] [facility] [id number] [place] [address] Jan, [facility] [address] [id number] [place] [address] Jan, [facility] [address] [id number] [place] [address] Jan, [facility] [address] [id number] [place] [address] December, [facility] [address] [id number] [place] [address] December, [facility] [address] [id number] [place] [address] December, [facility] [address] [id number] [place] [address] Nov, [facility] [address] [id number] [place] [address] Nov, [facility] [address] [id number] [place] [address] Nov, [facility] [address] [id number] [place] [address] Nov, [facility] [address] [id number] [place] [address] Nov, [facility] [address] [id number] [place] [address] Nov, [facility] [address] [id number] [place] [address] Nov, [facility] [address] [id number] [place] [address] Nov, [facility] [address] [id number] [place] [address] Oct, [facility] [address] [id number] [place] [address] Oct, [facility] [address] [id number] [place] [address] Oct, [facility] [address] [id number] [place] [address] Oct, [facility] [address] [id number] [place] [address] Sep, [facility] [address] [id number] [place] [address] Sep, [facility] [address] [id number] [place] [address] Sep, [facility] [address] [id number] [place] [address] Aug, [facility] [address] [id number] [place] [address] Aug, [facility] [address] [id number] [place] [address] Aug, [facility] [address] [id number] [place] [address] Aug, [facility] [address] [id number] [place] [address] Jul, [facility] [address] [id number] [place] [address] Jul, [facility] [address] [id number] [place] [address] Jul, [facility] [address] [id number] [place] [address] 30 Jun, 2011 [facility] [address] [id number] [place] [address] Jun, [facility] [address] [id number] [place] [address] 15 Jun, 2011 [facility] [address] [id number] [place] [address] Jun, [facility] [address] [id number] [place] [address] 14 Jun, 2011 [facility] [address] [id number] [place] [address] 14 Jun, 2011 [facility] [address] [id number] [place] [address] May, [facility] [address] [id number] [place] [address] 31 May, 2011 [facility] [address] [id number] [place] [address] 28 May, 2011 [facility] [address] [id number] [place] [address] Apr, [facility] [address] [facility] [id number] [place] [address] Mar, [facility] [address] [facility] [id number] [place] [address] Aug, IMMUNIZATIONS No Known Immunizations SOCIAL HISTORY [...] History hypertension Medical History Diabetes with renal manifest ations, type II or unspecified type, uncontrolled Medical History 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 Discharged 06/27/17 06/25/17
--- OUTSIDE RECORDS SUMMARY | 2019-10-21 00:52 | XMS REPORT ---
Author Author Moustapha Goff Organization [facility] Address [address] [place] [address] Care Team Providers Care Vehicle Window Tinter Name Role Phone MALIK Goff Unavailable PROBLEMS Type Condition ICD9-CM Code XDQ28-AY Code Onset Dates Condition S tatus SNOMED Code Problem Diabetic polyneuropathy associated with type 2 d iabetes mellitus E11.42 Active 94526705 Problem Anxiety F41.9 Active 24055725 Problem CAD (coronary artery disease) I25.10 Active 42711086 Problem Left ventricular enlargement I51.7 A ctive 800812542 Problem Ulcer of right lower leg, with unspecified severity L97.919 Active 991642000 Problem Allergic rhinitis J30.9 Active 61 853488 Problem Essential hypertension I10 Active 85838321 Problem Type 2 diabetes mellitus with other skin ulcer E11 .622 Active 94722573 Problem Skin infection L08.9 Active 00780 5000 Problem Stress incontinence in female N39.3 Active 13229680 Problem Non-healing skin lesion L98.9 Active 20301493 Problem Cough R05 Active 029760104 Problem Foot swelling M79.89 Active 738506 003 Problem Atrial enlargement, left I51.7 Activ e [id number] Problem Pulmonary HTN I27.2 Active 550444 07 Problem Neuropathy G62.9 Active 841463488 Problem Stress incontinence of urine N39.3 A ctive 09406042 Problem Dyspepsia R10.13 Active 480323046 Problem 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 Active 407337638 Problem shelter 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 Active 480489112 Problem Chronic pain G89.29 Active 1771773 1 Problem Mixed hyperlipidemia E78.2 Active 482204768 Problem Type 2 diabetes mellitus with other circulatory compli cations E11.59 Active 82776866 Problem Urinary incontinence R32 Active 388892247 Problem Moderate episode of recurrent major depressive disorder F33.1 Active 536336277 ALLERGIES No Information ENCOUNTERS Encounter Location Date Diagnosis [facility] [address] [place] [address] Nov, [facility] [address] [place] [address] Sep, [address] [place] [address] Sep, [address] [place] [address] Aug, [facility] [address] [place] [address] Aug, [facility] [address] [place] [address] Aug, Encounter for removal of sut ures Z48.02 ; Wheezing R06.2 ; Type 2 diabetes mellitus with other circulatory complications E11.59 ; Allergic rhinitis J30.9 ; Essential hypertension I10 ; Infection of toe L08.9 and Diabetic polyneuropathy associated with type 2 diabetes mellitus E11.42 [facility] [address] [place] [address] Aug, Right knee buckling M25.361 ; Essential hypertension I10 ; Type 2 diabetes mellitus with other circulatory complications E11.59 ; Mixed hyperlipidemia E78.2 ; Shortness of breath on exertion R06.02 ; Wheezing R06.2 ; Moderate episode of recurrent major depressive disorder F33.1 and Diabetic polyneuropathy associated with type 2 diabetes mellitus E11.42 [facility] [address] [place] [address] 14 Aug, 2019 Type 2 diabetes mellitus wit h other circulatory complications E11.59 [facility] [address] [place] [address] Jul, [address] [place] [address] Jul, [facility] [address] [place] [address] Jul, Essential hypertension I10 [address] [place] [address] Jul, [address] [place] [address] Jun, Stomach pain R10.9 [address] [place] [address] Jun, Type 2 diabetes mellitus wit h other circulatory complications E11.59 ; Mixed hyperlipidemia E78.2 and Essential hypertension I10 [address] [place] [address] Jun, [address] [place] [address] Jun, [address] [place] [address] Jun, Oxygen decrease R09.02 ; Ess ential hypertension I10 and Stomach pain R10.[address] [place] [address] Jun, Type 2 diabetes mellitus wit h other circulatory complications E11.59 [address] [place] [address] Jun, 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.[address] [place] [address] Jun, [address] [place] [address] Jun, [address] [place] [address] Jun, [address] [place] [address] Jun, Bronchitis J40 ; Wheezing R0 6.2 and History of falling Z91.[address] [place] [address] Jun, [facility] [place] [address] [place] [address] May, [place] [address] [place] [address] May, Diabetic polyneuropathy asso ciated with type 2 diabetes mellitus E11.42 [place] [address] [place] [address] May, Diabetic polyneuropathy asso ciated with type 2 diabetes mellitus E11.42 [place] [address] [place] [address] Apr, [place] [address] [place] [address] Apr, Essential hypertension I10 ; Type 2 diabetes mellitus with other circulatory complications E11.59 and Mixed hyperlipidemia E78.2 [place] [address] [place] [address] Apr, Mixed hyperlipidemia E78.2 ; Type 2 diabetes mellitus with other circulatory complications E11.59 ; Essential hypertension I10 and Pain in joints of right hand M25.541 [place] [address] [place] [address] Apr, Immunization counseling Z71. 89 ; shelter 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 ; Type 2 diabetes mellitus with other circulatory complications E11.59 ; Food insecurity Z59.4 and Low-level of literacy Z55.0 [place] [address] [place] [address] Apr, Urinary pain R30.9 ; Hematur ia, unspecified type R31.9 ; Urinary tract infection without hematuria, site unspecified N39.0 ; Stress incontinence of urine N39.3 ; Essential hypertension I10 ; Mixed hyperlipidemia E78.2 ; Type 2 diabetes mellitus with other circulatory complications E11.59 and Pain in joints of right hand M25.541 [place] [address] [place] [address] Apr, Diabetic polyneuropathy asso ciated with type 2 diabetes mellitus E11.42 [facility] [address] [place] [address] Mar, [facility] [address] [place] [address] Mar, [facility] [address] [place] [address] Mar, [facility] [place] [address] [place] [address] Mar, [facility] [address] [place] [address] Mar, [facility] [address] [place] [address] Mar, Diabetic polyneuropathy asso ciated with type 2 diabetes mellitus E11.42 [facility] [address] [place] [address] Feb, Type 2 diabetes mellitus wit h other circulatory complications E11.59 [facility] [address] [place] [address] Feb, Essential hypertension I10 [facility] [address] [place] [address] Feb, Diabetic polyneuropathy asso ciated with type 2 diabetes mellitus E11.42 [facility] [address] [place] [address] Feb, Type 2 diabetes mellitus wit h other circulatory complications E11.59 [facility] [address] [place] [address] Feb, [facility] [address] [place] [address] Feb, Moderate episode of recurren t major depressive disorder F33.1 [facility] [address] [place] [address] Feb, Wheezing R06.2 and Cough R05 [facility] [address] [place] [address] Jan, Diabetic polyneuropathy asso ciated with type 2 diabetes mellitus E11.42 [facility] [address] [place] [address] Jan, [facility] [address] [place] [address] Jan, Wheezing R06.2 and Cough R05 [address] [place] [address] Jan, Cough R05 ; Bronchitis J40 ; Wheezing R06.2 ; Unspecified superficial injury of left lesser toe(s), subsequent encounter S90.935D and Type 2 diabetes mellitus with other circulatory complications E11 .59 [facility] [address] [place] [address] Jan, [facility] [address] [place] [address] December, [facility] [address] [place] [address] December, [address] [place] [address] December, Encounter for removal of sut ures Z48.02 [facility] [address] [place] [address] December, Diabetic polyneuropathy asso ciated with type 2 diabetes mellitus E11.42 [facility] [address] [place] [address] December, [address] [place] [address] December, Infection of toe L08.9 [facility] [address] [place] [address] December, [facility] [address] [facility] [place] [address] December, Diabetic polyneuropathy associated with type 2 diabetes mellitus E11.42 ; shelter 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 ; Urinary incontinence R32 and Type 2 diabetes mellitus with other circulatory complications E11.59 [place] [address] [place] [id number] [place] [address] December, Essential hypertension I10 ; Type 2 diab etes mellitus with other circulatory complications E11.59 and Dizziness R42 [place] [address] [place] [address] [id number] [place] [address] December, Dizziness R42 ; Essential hypertension I 10 and Type 2 diabetes mellitus with other circulatory complications E11.[address] [place] [address] Nov, Breast lump N63.[address] [place] [address] Nov, Breast lump N63.[address] [place] [address] Nov, Breast lump N63.[address] [place] [address] Nov, [address] [place] [address] Nov, Mixed hyperlipidemia E78.2 ; Essential hypertension I10 and 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 [place] [address] Nov, Essential hypertension I10 ; Breast cancer screening Z12.31 ; 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 ; Mixed hyperlipidemia E78.2 ; Dysuria R30.0 and Type 2 diabetes mellitus with other circulatory complications E11.59 [place] [address] [place] [id number] [place] [address] May, [place] [address] [place] [address] [place] [address] Apr, [place] [address] [place] [address] [place] [address] Apr, Essential hypertension I10 and Diabetic polyneuropathy associated with type 2 diabetes mellitus E11.42 [place] [address] [address] Mar, [place] [address] [address] Feb, Onychomycosis B35.1 ; Neuropathy G62.9 a nd Diabetic polyneuropathy associated with type 2 diabetes mellitus E11.42 [place] [address] [address] Feb, [place] [address] [address] December, [place] [address] [address] December, Herpes zoster without complication B02.9 ; Onychia of toe of left foot L03.032 ; Ingrowing toenail with infection L60.0 and Diabetic polyneuropathy associated with type 2 diabetes mellitus E11.42 [place] [address] [address] December, [place] [address] [address] Nov, [place] [address] [address] Oct, Diabetic polyneuropathy associated with type 2 diabetes mellitus E11.42 [place] [address] [address] Oct, Essential hypertension I10 and Diabetic polyneuropathy associated with type 2 diabetes mellitus E11.42 [place] [address] [address] Sep, Diabetic polyneuropathy associated with type 2 diabetes mellitus E11.42 ; Type 2 diabetes mellitus with other skin ulcer E11.622 ; Chronic pain G89.29 ; Anxiety F41.9 ; Essential hypertension I10 ; Hypoxia R09.02 ; Atrial enlargement, left I51.7 and Left ventricular enlargement I51.7 [facility] [address] [address] Sep, [facility] [address] [address] Aug, [facility] [address] [address] Jul, [facility] [address] [address] Jul, [facility] [address] [address] Jul, CAD (coronary artery disease) I25.10 ; E ssential hypertension I10 ; Pulmonary HTN I27.2 ; Atrial enlargement, left I51.7 and Left ventricular enlargement I51.7 [place] [address] [address] Jun, [place] [address] [address] Jun, [facility] [address] [address] Jun, [place] [address] [address] Jun, [place] [address] [address] Jun, Diabetic polyneuropathy associated with type 2 diabetes mellitus E11.42 ; Type 2 diabetes mellitus with other skin ulcer E11.622 ; Chronic pain G89.29 ; Anxiety F41.9 ; Essential hypertension I10 ; Ulcer of right lower leg, with unspecified severity L97.919 ; Pulmonary HTN I27.2 ; Hypoxia R09.02 ; Atrial enlargement, left I51.7 and Left ventricular enlargement I51.7 [facility] [address] [address] May, [facility] [address] [address] 08 Apr, 2016 Diabetic polyneuropathy associated with type 2 diabetes mellitus E11.42 ; Type 2 diabetes mellitus with other skin ulcer E11.622 ; Chronic pain G89.29 ; Anxiety F41.9 ; Cough R05 ; Essential hypertension I10 and Ulcer of right lower leg, with unspecified severity L97.919 [place] [address] [address] Mar, Diabetic polyneuropathy associated with type 2 diabetes mellitus E11.42 ; Chronic pain G89.29 ; Anxiety F41.9 ; Type 2 diabetes mellitus with other skin ulcer E11.622 ; Cough R05 ; Essential hypertension I10 and Ulcer of right lower leg, with unspecified severity L97.919 [place] [address] [address] Feb, [place] [address] [address] Feb, Diabetic polyneuropathy associated with type 2 diabetes mellitus E11.42 ; Chronic pain G89.29 ; Anxiety F41.9 ; Type 2 diabetes mellitus with other skin ulcer E11.622 ; Cough R05 and Essential hypertension I10 [place] [address] [address] Jan, Chronic pain G89.29 ; Anxiety F41.9 and Foot swelling M79.89 [place] [address] [address] December, Chronic pain G89.29 ; Anxiety F41.9 and Stress incontinence in female N39.3 [place] [address] [address] December, [place] [address] [address] Nov, [place] [address] [address] Nov, [place] [address] [address] Nov, [place] [address] [address] Nov, Chronic pain G89.29 ; Anxiety F41.9 ; No n-healing skin lesion L98.9 and Type 2 diabetes mellitus with other skin ulcer E11.622 [place] [address] [address] Nov, Diabetic polyneuropathy associated with type 2 diabetes mellitus E11.42 [facility] [address] [address] Nov, [facility] [address] [address] Nov, [place] [address] [address] Nov, [place] [address] [address] Nov, [place] [address] [address] Nov, Diabetic polyneuropathy associated with type 2 diabetes mellitus E11.42 [place] [address] [address] Oct, Diabetic polyneuropathy associated with type 2 diabetes mellitus E11.42 ; Essential hypertension I10 ; Chronic pain G89.29 ; Anxiety F41.9 and Skin infection L08.9 [place] [address] [address] Oct, [place] [address] [address] Sep, [facility] [address] [address] Sep, Diabetic polyneuropathy associated with type 2 diabetes mellitus E11.42 ; Chronic pain G89.29 ; Anxiety F41.9 and Allergic rhinitis J30.9 [facility] [address] [address] Aug, Diabetic polyneuropathy associated with type 2 diabetes mellitus E11.42 ; Chronic pain G89.29 ; Anxiety F41.9 and Allergic rhinitis J30.9 [place] [address] [address] Jul, [address] [address] Jul, Diabetic polyneuropathy associated with type 2 diabetes mellitus E11.42 ; Dyspepsia R10.13 ; Essential hypertension I10 ; 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 ; CAD (coronary artery disease) I25.10 ; Chronic pain G89.29 ; Anxiety F41.9 ; Dysuria R30.0 and Pain of left lower leg M79.[address] [address] Jul, [address] [address] Jun, Diabetic polyneuropathy associated with type 2 diabetes mellitus E11.42 and 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 [address] Jun, [address] [address] Jun, Neuropathy G62.9 ; Arthritis M19.90 ; Le g cramps R25.2 and Anxiety F41.[address] [address] May, [address] [address] May, [address] [address] May, Diabetic polyneuropathy associated with type 2 diabetes mellitus E11.[address] [address] May, [address] [address] Apr, [place] [address] Apr, [facility] [address] [address] Apr, [facility] [address] [address] Apr, [facility] [address] [address] Apr, [facility] [address] [address] Apr, [facility] [address] [address] Apr, Diabetes with renal manifestations, type II or unspecified type, uncontrolled 250.42 ; Coronary atherosclerosis of unspecified type of vessel, cocopah or graft 414.00 ; Polyneuropathy in diabetes 357.2 ; Hypertension 401.9 ; Anxiety 300.00 ; GERD (gastroesophageal reflux disease) 530.81 and Type 2 diabetes mellitus with pressure callus 250.80 [place] [address] [address] Mar, [place] [address] [address] Mar, [facility] [address] [address] Mar, [place] [address] [address] Mar, [facility] [address] [address] Mar, Diabetes with renal manifestations, type II or unspecified type, uncontrolled 250.42 ; Coronary atherosclerosis of unspecified type of vessel, cocopah or graft 414.00 ; Polyneuropathy in diabetes 357.2 ; Hypertension 401.9 and Anxiety 300.00 [facility] [address] [address] Mar, Routine gynecological examination V72.31 ; Breast cancer screening V76.10 ; Recurrent urinary tract infection 599.0 ; Mastodynia 611.71 and Tobacco abuse 305.1 [facility] [address] [id number] [place] [address] 31 Feb, 2015 [facility] [address] [id number] [place] [address] Jan, [facility] [address] [id number] [place] [address] Jan, [facility] [address] [id number] [place] [address] Jan, [facility] [address] [id number] [place] [address] Jan, [facility] [address] [id number] [place] [address] December, [facility] [address] [id number] [place] [address] December, [facility] [address] [id number] [place] [address] 28 Nov, 2014 [facility] [address] [id number] [place] [address] 14 Nov, 2014 [facility] [address] [id number] [place] [address] Nov, [facility] [address] [id number] [place] [address] 19 Oct, 2014 [facility] [address] [id number] [place] [address] 19 Oct, 2014 [facility] [address] [id number] [place] [address] 16 Oct, 2014 [facility] [address] [id number] [place] [address] 16 Oct, 2014 [facility] [address] [id number] [place] [address] 16 Oct, 2014 [facility] [address] [id number] [place] [address] 16 Oct, 2014 [facility] [address] [id number] [place] [address] 16 Oct, 2014 [facility] [address] [facility] [id number] [place] [address] 16 Oct, 2014 [facility] [address] [facility] [id number] [place] [address] 16 Oct, 2014 [facility] [address] [id number] [place] [address] 16 Oct, 2014 [facility] [address] [facility] [id number] [place] [address] 16 Oct, 2014 [facility] [address] [facility] [id number] [place] [address] 16 Oct, 2014 [facility] [address] [id number] [place] [address] Oct, 2014 [facility] [address] [id number] [place] [address] 04 Oct, 2014 [facility] [address] [id number] [place] [address] Oct, 2014 [facility] [address] [facility] [id number] [place] [address] Oct, [facility] [address] [id number] [place] [address] Oct, 2014 [facility] [address] [id number] [place] [address] Oct, [facility] [address] [id number] [place] [address] Sep, 2014 [facility] [address] [facility] [id number] [place] [address] Sep, 2014 [facility] [address] [id number] [place] [address] Sep, 2014 [facility] [address] [id number] [place] [address] Sep, 2014 [facility] [address] [id number] [place] [address] Sep, 2014 [facility] [address] [facility] [id number] [place] [address] Sep, 2014 [facility] [address] [facility] [id number] [place] [address] Sep, 2014 [facility] [address] [facility] [id number] [place] [address] Sep, 2014 [facility] [address] [id number] [place] [address] Sep, 2014 [facility] [address] [facility] [id number] [place] [address] Sep, 2014 [facility] [address] [id number] [place] [address] Sep, 2014 [facility] [address] [id number] [place] [address] Sep, 2014 [facility] [address] [id number] [place] [address] Sep, 2014 [facility] [address] [id number] [place] [address] Sep, 2014 [facility] [address] [id number] [place] [address] Sep, [facility] [address] [id number] [place] [address] Aug, [facility] [address] [id number] [place] [address] Aug, [facility] [address] [id number] [place] [address] Aug, [facility] [address] [facility] [id number] [place] [address] Aug, [facility] [address] [id number] [place] [address] Aug, [facility] [address] [id number] [place] [address] Aug, [facility] [address] [id number] [place] [address] Aug, [facility] [address] [id number] [place] [address] Aug, [facility] [address] [id number] [place] [address] Aug, [facility] [address] [id number] [place] [address] Aug, [facility] [address] [id number] [place] [address] Aug, [facility] [address] [id number] [place] [address] Aug, [facility] [address] [id number] [place] [address] Aug, [facility] [address] [id number] [place] [address] Jul, [facility] [address] [id number] [place] [address] Jul, [facility] [address] [id number] [place] [address] Jul, [facility] [address] [id number] [place] [address] Jul, [facility] [address] [id number] [place] [address] Jul, [facility] [address] [id number] [place] [address] Jul, [facility] [address] [id number] [place] [address] Jul, [facility] [address] [id number] [place] [address] Jul, [facility] [address] [id number] [place] [address] Jun, [facility] [address] [id number] [place] [address] Jun, [facility] [address] [id number] [place] [address] Jun, [facility] [address] [id number] [place] [address] Jun, [facility] [address] [id number] [place] [address] Jun, [facility] [address] [id number] [place] [address] Jun, [facility] [address] [id number] [place] [address] Jun, [facility] [address] [id number] [place] [address] Jun, [facility] [address] [id number] [place] [address] Jun, [facility] [address] [id number] [place] [address] Jun, [facility] [address] [id number] [place] [address] Jun, [facility] [address] [id number] [place] [address] Jun, [facility] [address] [id number] [place] [address] Jun, [facility] [address] [id number] [place] [address] Jun, [facility] [address] [id number] [place] [address] Jun, [facility] [address] [id number] [place] [address] Jun, [facility] [address] [id number] [place] [address] May, [facility] [address] [id number] [place] [address] May, [facility] [address] [id number] [place] [address] May, 2013 [facility] [address] [facility] [id number] [place] [address] May, 2013 [facility] [address] [facility] [id number] [place] [address] May, 2013 [facility] [address] [facility] [id number] [place] [address] May, 2013 [facility] [address] [facility] [id number] [place] [address] May, [facility] [address] [facility] [id number] [place] [address] May, [facility] [address] [facility] [id number] [place] [address] May, [facility] [address] [id number] [place] [address] Apr, [facility] [address] [id number] [place] [address] Apr, [facility] [address] [facility] [id number] [place] [address] Apr, [facility] [address] [id number] [place] [address] Apr, [facility] [address] [id number] [place] [address] Mar, [facility] [address] [id number] [place] [address] Mar, [facility] [address] [facility] [id number] [place] [address] Mar, [facility] [address] [facility] [id number] [place] [address] Mar, [facility] [address] [facility] [id number] [place] [address] Feb, [facility] [address] [id number] [place] [address] Feb, [facility] [address] [id number] [place] [address] Jan, [facility] [address] [id number] [place] [address] Jan, [facility] [address] [facility] [id number] [place] [address] Jan, [facility] [address] [id number] [place] [address] Jan, [facility] [address] [facility] [id number] [place] [address] Jan, [facility] [address] [id number] [place] [address] Jan, [facility] [address] [id number] [place] [address] Jan, [facility] [address] [id number] [place] [address] Jan, [facility] [address] [id number] [place] [address] Jan, [facility] [address] [facility] [id number] [place] [address] Jan, [facility] [address] [id number] [place] [address] Jan, [facility] [address] [id number] [place] [address] Jan, [facility] [address] [id number] [place] [address] Jan, [facility] [address] [facility] [id number] [place] [address] December, [facility] [address] [id number] [place] [address] December, [facility] [address] [id number] [place] [address] December, [facility] [address] [id number] [place] [address] December, [facility] [address] [id number] [place] [address] December, [facility] [address] [id number] [place] [address] Nov, [facility] [address] [id number] [place] [address] Nov, [facility] [address] [id number] [place] [address] Nov, [facility] [address] [id number] [place] [address] Nov, [facility] [address] [id number] [place] [address] Nov, [facility] [address] [id number] [place] [address] Nov, [facility] [address] [id number] [place] [address] Nov, [facility] [address] [id number] [place] [address] Nov, [facility] [address] [id number] [place] [address] Nov, [facility] [address] [id number] [place] [address] Nov, [facility] [address] [id number] [place] [address] Jun, [facility] [address] [id number] [place] [address] Jun, [facility] [address] [id number] [place] [address] May, [facility] [address] [id number] [place] [address] May, [facility] [address] [id number] [place] [address] May, [facility] [address] [id number] [place] [address] 16 May, 2012 [facility] [address] [id number] [place] [address] May, [facility] [address] [facility] [id number] [place] [address] May, [facility] [address] [id number] [place] [address] May, [facility] [address] [id number] [place] [address] May, [facility] [address] [facility] [id number] [place] [address] May, [facility] [address] [id number] [place] [address] 25 Apr, 2011 [facility] [address] [id number] [place] [address] 25 Apr, 2011 [facility] [address] [id number] [place] [address] 25 Apr, 2011 [facility] [address] [id number] [place] [address] 21 Apr, 2011 [facility] [address] [id number] [place] [address] 20 Apr, 2011 [facility] [address] [id number] [place] [address] 19 Apr, 2011 [facility] [address] [id number] [place] [address] 05 Sep, 2011 [facility] [address] [id number] [place] [address] 04 Apr, 2011 [facility] [address] [id number] [place] [address] 28 Mar, 2012 [facility] [address] [id number] [place] [address] 27 Mar, 2012 [facility] [address] [id number] [place] [address] Mar, [facility] [address] [id number] [place] [address] Mar, [facility] [address] [id number] [place] [address] Mar, [facility] [address] [facility] [id number] Mar, [facility] [address] [id number] [place] [address] Mar, [facility] [address] [id number] [place] [address] Feb, [facility] [address] [id number] [place] [address] Feb, [facility] [address] [id number] [place] [address] Feb, [facility] [address] [id number] [place] [address] Feb, [facility] [address] [id number] [place] [address] Feb, [facility] [address] [id number] [place] [address] Feb, [facility] [address] [id number] [place] [address] Jan, [facility] [address] [id number] [place] [address] Jan, [facility] [address] [id number] [place] [address] Jan, [facility] [address] [id number] [place] [address] Jan, [facility] [address] [id number] [place] [address] Jan, [facility] [address] [id number] [place] [address] Jan, [facility] [address] [id number] [place] [address] Jan, [facility] [address] [id number] [place] [address] December, [facility] [address] [id number] [place] [address] December, [facility] [address] [id number] [place] [address] December, [facility] [address] [id number] [place] [address] Nov, [facility] [address] [id number] [place] [address] Nov, [facility] [address] [id number] [place] [address] Nov, [facility] [address] [id number] [place] [address] Nov, [facility] [address] [id number] [place] [address] Nov, [facility] [address] [id number] [place] [address] Nov, [facility] [address] [id number] [place] [address] 17 Nov, 2011 [facility] [address] [id number] [place] [address] Nov, [facility] [address] [id number] [place] [address] Oct, [facility] [address] [id number] [place] [address] Oct, [facility] [address] [id number] [place] [address] Oct, [facility] [address] [id number] [place] [address] Oct, [facility] [address] [id number] [place] [address] Sep, [facility] [address] [id number] [place] [address] Sep, [facility] [address] [id number] [place] [address] Sep, [facility] [address] [id number] [place] [address] Aug, [facility] [address] [id number] [place] [address] Aug, [facility] [address] [id number] [place] [address] Aug, [facility] [address] [id number] [place] [address] Aug, [facility] [address] [id number] [place] [address] Jul, [facility] [address] [id number] [place] [address] 15 Jul, 2011 [facility] [id number] [place] [address] 15 Jul, 2011 [facility] [address] [id number] [place] [address] 30 Jun, 2011 [facility] [address] [id number] [place] [address] 22 Jun, 2011 [facility] [address] [id number] [place] [address] 15 Jun, 2011 [facility] [id number] [place] [address] 14 Jun, 2011 [facility] [address] [id number] [place] [address] 14 Jun, 2011 [facility] [address] [id number] [place] [address] Jun, [facility] [address] [id number] [place] [address] 31 May, 2011 [facility] [address] [id number] [place] [address] 31 May, 2011 [facility] [address] [id number] [place] [address] May, [facility] [address] [id number] [place] [address] Apr, [facility] [address] [id number] [place] [address] Mar, [facility] [address] [id number] [place] [address] Aug, IMMUNIZATIONS No Known Immunizations SOCIAL HISTORY Never Assessed REASON FOR VISIT PLAN OF CARE VITAL SIGNS Height 68 in 2013-12-24 Weight 210.8 lbs 2013-12-24 Temperature 98.5 degrees Fahrenheit 2013-12-24 Heart Rate 100 bpm 2013-12-24 Respiratory Rate 18 2013-12-24 Blood pressure systolic 158 mmHg 2013-12-24 Blood pressure diastolic 80 mmHg 2013-12-24 MEDICATIONS Unknown Medications RESULTS No Results PROCEDURES Procedure Date Ordered Result Body Site URINALYSIS, AUTO, W/O SCOPE December 24, 2013 URINE CULTURE/COLONY COUNT December 24, 2013 INSTRUCTIONS MEDICATIONS ADMINISTERED No Known Medications MEDICAL (GENERAL) HISTORY Type Description Date Medical History type II diabetes-dx in 1995 Medical History stroke-12/2011-[facility] Medical History cardiovascular disorder-CAD Medical History hyperlipidemia Medical History hypertension Medical History Diabetes with renal manifest ations, type II or unspecified type, uncontrolled Medical History 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 Discharged 06/27/17 06/25/17
--- OUTSIDE RECORDS SUMMARY | 2019-10-21 00:53 | XMS REPORT ---
Author Author Moustapha Goff Organization [facility] Address [address] [place] [address] Care Team Providers Care Swing Grinder Name Role Phone MALIK Goff Unavailable PROBLEMS Type Condition ICD9-CM Code WLF83-SC Code Onset Dates Condition S tatus SNOMED Code Problem Diabetic polyneuropathy associated with type 2 d iabetes mellitus E11.42 Active 52698609 Problem Anxiety F41.9 Active 73188101 Problem CAD (coronary artery disease) I25.10 Active 13840991 Problem Left ventricular enlargement I51.7 A ctive 647096865 Problem Ulcer of right lower leg, with unspecified severity L97.919 Active 835611903 Problem Allergic rhinitis J30.9 Active 61 326393 Problem Essential hypertension I10 Active 34834963 Problem Type 2 diabetes mellitus with other skin ulcer E11 .622 Active 30881213 Problem Skin infection L08.9 Active 13838 5000 Problem Stress incontinence in female N39.3 Active 15085522 Problem Non-healing skin lesion L98.9 Active 16376030 Problem Cough R05 Active 173358664 Problem Foot swelling M79.89 Active 180802 003 Problem Atrial enlargement, left I51.7 Activ e 23303641296470 Problem Pulmonary HTN I27.2 Active 936686 07 Problem Neuropathy G62.9 Active 556497594 Problem Stress incontinence of urine N39.3 A ctive 98243239 Problem Dyspepsia R10.13 Active 873027209 Problem 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 Active 641685029 Problem senior care 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 Active 559450197 Problem Chronic pain G89.29 Active 3037253 1 Problem Mixed hyperlipidemia E78.2 Active 673429011 Problem Type 2 diabetes mellitus with other circulatory compli cations E11.59 Active 78802377 Problem Urinary incontinence R32 Active 470247841 Problem Moderate episode of recurrent major depressive disorder F33.1 Active 950215203 ALLERGIES No Information ENCOUNTERS Encounter Location Date Diagnosis [facility] [address] [place] [address] Nov, [facility] [address] [place] [address] Aug, [facility] [address] [place] [address] Aug, [facility] [address] [place] [address] Aug, Encounter for removal of sut ures Z48.02 ; Wheezing R06.2 ; Type 2 diabetes mellitus with other circulatory complications E11.59 ; Allergic rhinitis J30.9 ; Essential hypertension I10 ; Infection of toe L08.9 and Diabetic polyneuropathy associated with type 2 diabetes mellitus E11.42 [facility] [address] [place] [address] Aug, Right knee buckling M25.361 ; Essential hypertension I10 ; Type 2 diabetes mellitus with other circulatory complications E11.59 ; Mixed hyperlipidemia E78.2 ; Shortness of breath on exertion R06.02 ; Wheezing R06.2 ; Moderate episode of recurrent major depressive disorder F33.1 and Diabetic polyneuropathy associated with type 2 diabetes mellitus E11.42 [facility] [address] [place] [address] Aug, Type 2 diabetes mellitus wit h other circulatory complications E11.59 [facility] [address] [place] [address] Jul, [address] [place] [address] Jul, [address] [place] [address] Jul, Essential hypertension I10 [address] [place] [address] Jul, [address] [place] [address] Jun, Stomach pain R10.[address] [place] [address] Jun, Type 2 diabetes mellitus wit h other circulatory complications E11.59 ; Mixed hyperlipidemia E78.2 and Essential hypertension I10 [address] [place] [address] Jun, [address] [place] [address] Jun, [address] [place] [address] Jun, Oxygen decrease R09.02 ; Ess ential hypertension I10 and Stomach pain R10.[address] [place] [address] Jun, Type 2 diabetes mellitus wit h other circulatory complications E11.59 [address] [place] [address] Jun, senior care current use of ins ulin Z79.[address] [place] [address] Jun, [address] [place] [address] Jun, [address] [place] [address] Jun, [address] [place] [address] Jun, Bronchitis J40 ; Wheezing R0 6.2 and History of falling Z91.[address] [place] [address] Jun, [address] [place] [address] May, [address] [place] [address] May, Diabetic polyneuropathy asso ciated with type 2 diabetes mellitus E11.42 [address] [place] [address] May, Diabetic polyneuropathy asso ciated with type 2 diabetes mellitus E11.[address] [place] [address] Apr, [address] [place] [address] Apr, Essential hypertension I10 ; Type 2 diabetes mellitus with other circulatory complications E11.59 and Mixed hyperlipidemia E78.2 [address] [place] [address] Apr, Mixed hyperlipidemia E78.2 ; Type 2 diabetes mellitus with other circulatory complications E11.59 ; Essential hypertension I10 and Pain in joints of right hand M25.541 [address] [place] [address] Apr, Immunization counseling Z71. 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 ; Type 2 diabetes mellitus with other circulatory complications E11.59 ; Food insecurity Z59.4 and Low-level of literacy Z55.0 [address] [place] [address] 05 Apr, 2019 Urinary pain R30.9 ; Hematur ia, unspecified type R31.9 ; Urinary tract infection without hematuria, site unspecified N39.0 ; Stress incontinence of urine N39.3 ; Essential hypertension I10 ; Mixed hyperlipidemia E78.2 ; Type 2 diabetes mellitus with other circulatory complications E11.59 and Pain in joints of right hand M25.541 [address] [place] [address] Apr, Diabetic polyneuropathy asso ciated with type 2 diabetes mellitus E11.42 [address] [place] [address] Mar, [address] [place] [address] Mar, [facility] [address] [place] [address] Mar, [facility] [address] [place] [address] Mar, [facility] [address] [place] [address] Mar, [facility] [address] [place] [address] Mar, Diabetic polyneuropathy asso ciated with type 2 diabetes mellitus E11.42 [facility] [address] [place] [address] Feb, Type 2 diabetes mellitus wit h other circulatory complications E11.59 [facility] [address] [place] [address] Feb, Essential hypertension I10 [facility] [address] [place] [address] Feb, Diabetic polyneuropathy asso ciated with type 2 diabetes mellitus E11.42 [facility] [address] [place] [address] Feb, Type 2 diabetes mellitus wit h other circulatory complications E11.59 [facility] [address] [place] [address] Feb, [facility] [address] [place] [address] Feb, Moderate episode of recurren t major depressive disorder F33.1 [facility] [address] [place] [address] Feb, Wheezing R06.2 and Cough R05 [facility] [address] [place] [address] Jan, Diabetic polyneuropathy asso ciated with type 2 diabetes mellitus E11.42 [facility] [address] [place] [address] Jan, [facility] [address] [place] [address] Jan, Wheezing R06.2 and Cough R05 [facility] [address] [place] [address] 10 Jan, 2019 Cough R05 ; Bronchitis J40 ; Wheezing R06.2 ; Unspecified superficial injury of left lesser toe(s), subsequent encounter S90.935D and Type 2 diabetes mellitus with other circulatory complications E11 .59 [facility] [address] [place] [address] Jan, [facility] [address] [place] [address] December, [facility] [address] [place] [address] December, [facility] [address] [place] [address] December, Encounter for removal of sut ures Z48.02 [facility] [address] [place] [address] December, Diabetic polyneuropathy asso ciated with type 2 diabetes mellitus E11.42 [facility] [address] [place] [address] December, [facility] [address] [place] [address] December, Infection of toe L08.9 [facility] [address] [place] [address] December, [facility] [address] [id number] [place] [address] December, Diabetic polyneuropathy associated with type 2 diabetes mellitus E11.42 ; senior care 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 ; Urinary incontinence R32 and Type 2 diabetes mellitus with other circulatory complications E11.59 [facility] [address] [id number] [place] [address] December, Essential hypertension I10 ; Type 2 diab etes mellitus with other circulatory complications E11.59 and Dizziness R42 [place] [address] [place] [place] [id number] [place] [address] December, Dizziness R42 ; Essential hypertension I 10 and Type 2 diabetes mellitus with other circulatory complications E11.[address] [place] [address] Nov, Breast lump N63.[address] [place] [address] Nov, Breast lump N63.[address] [place] [address] Nov, Breast lump N63.[address] [place] [address] Nov, [address] [place] [address] Nov, Mixed hyperlipidemia E78.2 ; Essential hypertension I10 and senior care 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 [place] [address] Nov, Essential hypertension I10 ; Breast cancer screening Z12.31 ; 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 [place] [address] May, [place] [address] [id number] [place] [address] Apr, [place] [address] [place] [id number] [place] [address] Apr, Essential hypertension I10 and Diabetic polyneuropathy associated with type 2 diabetes mellitus E11.42 [place] [address] [id number] [place] [address] Mar, [place] [address] [address] Feb, Onychomycosis B35.1 ; Neuropathy G62.9 a nd Diabetic polyneuropathy associated with type 2 diabetes mellitus E11.42 [place] [address] [address] Feb, [place] [address] [address] December, [place] [address] [address] December, Herpes zoster without complication B02.9 ; Onychia of toe of left foot L03.032 ; Ingrowing toenail with infection L60.0 and Diabetic polyneuropathy associated with type 2 diabetes mellitus E11.42 [place] [address] [address] December, [place] [address] [address] Nov, [place] [address] [address] Oct, Diabetic polyneuropathy associated with type 2 diabetes mellitus E11.42 [place] [address] [address] Oct, Essential hypertension I10 and Diabetic polyneuropathy associated with type 2 diabetes mellitus E11.42 [place] [address] [address] Sep, Diabetic polyneuropathy associated with type 2 diabetes mellitus E11.42 ; Type 2 diabetes mellitus with other skin ulcer E11.622 ; Chronic pain G89.29 ; Anxiety F41.9 ; Essential hypertension I10 ; Hypoxia R09.02 ; Atrial enlargement, left I51.7 and Left ventricular enlargement I51.7 [place] [address] [address] Sep, [place] [address] [address] Aug, [place] [address] [address] Jul, [facility] [address] [address] Jul, [facility] [address] [address] Jul, CAD (coronary artery disease) I25.10 ; E ssential hypertension I10 ; Pulmonary HTN I27.2 ; Atrial enlargement, left I51.7 and Left ventricular enlargement I51.7 [place] [address] [address] Jun, [place] [address] [address] Jun, [place] [address] [address] Jun, [place] [address] [address] Jun, [facility] [address] [address] Jun, Diabetic polyneuropathy associated with type 2 diabetes mellitus E11.42 ; Type 2 diabetes mellitus with other skin ulcer E11.622 ; Chronic pain G89.29 ; Anxiety F41.9 ; Essential hypertension I10 ; Ulcer of right lower leg, with unspecified severity L97.919 ; Pulmonary HTN I27.2 ; Hypoxia R09.02 ; Atrial enlargement, left I51.7 and Left ventricular enlargement I51.7 [place] [address] [address] May, [place] [address] [address] Apr, Diabetic polyneuropathy associated with type 2 diabetes mellitus E11.42 ; Type 2 diabetes mellitus with other skin ulcer E11.622 ; Chronic pain G89.29 ; Anxiety F41.9 ; Cough R05 ; Essential hypertension I10 and Ulcer of right lower leg, with unspecified severity L97.919 [place] [address] [address] Mar, Diabetic polyneuropathy associated with type 2 diabetes mellitus E11.42 ; Chronic pain G89.29 ; Anxiety F41.9 ; Type 2 diabetes mellitus with other skin ulcer E11.622 ; Cough R05 ; Essential hypertension I10 and Ulcer of right lower leg, with unspecified severity L97.919 [place] [address] [address] Feb, [place] [address] [address] Feb, Diabetic polyneuropathy associated with type 2 diabetes mellitus E11.42 ; Chronic pain G89.29 ; Anxiety F41.9 ; Type 2 diabetes mellitus with other skin ulcer E11.622 ; Cough R05 and Essential hypertension I10 [place] [address] [address] Jan, Chronic pain G89.29 ; Anxiety F41.9 and Foot swelling M79.89 [place] [address] [address] December, Chronic pain G89.29 ; Anxiety F41.9 and Stress incontinence in female N39.3 [place] [address] [address] December, [place] [address] [address] Nov, [place] [address] [address] Nov, [place] [address] [address] Nov, [place] [address] [address] Nov, Chronic pain G89.29 ; Anxiety F41.9 ; No n-healing skin lesion L98.9 and Type 2 diabetes mellitus with other skin ulcer E11.622 [place] [address] [address] Nov, Diabetic polyneuropathy associated with type 2 diabetes mellitus E11.42 [facility] [address] [address] Nov, [facility] [address] [address] Nov, [facility] [address] [address] Nov, [facility] [address] [address] Nov, [facility] [address] [address] Nov, Diabetic polyneuropathy associated with type 2 diabetes mellitus E11.42 [facility] [address] [address] Oct, Diabetic polyneuropathy associated with type 2 diabetes mellitus E11.42 ; Essential hypertension I10 ; Chronic pain G89.29 ; Anxiety F41.9 and Skin infection L08.9 [facility] [address] [address] Oct, [facility] [address] [address] Sep, [facility] [address] [address] Sep, Diabetic polyneuropathy associated with type 2 diabetes mellitus E11.42 ; Chronic pain G89.29 ; Anxiety F41.9 and Allergic rhinitis J30.9 [facility] [address] [address] Aug, Diabetic polyneuropathy associated with type 2 diabetes mellitus E11.42 ; Chronic pain G89.29 ; Anxiety F41.9 and Allergic rhinitis J30.9 [facility] [address] [address] Jul, [facility] [address] [address] Jul, Diabetic polyneuropathy associated with type 2 diabetes mellitus E11.42 ; Dyspepsia R10.13 ; Essential hypertension I10 ; 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 ; CAD (coronary artery disease) I25.10 ; Chronic pain G89.29 ; Anxiety F41.9 ; Dysuria R30.0 and Pain of left lower leg M79.662 [place] [address] [address] Jul, [address] [address] Jun, Diabetic polyneuropathy associated with type 2 diabetes mellitus E11.42 and 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 [address] Jun, [address] [address] Jun, Neuropathy G62.9 ; Arthritis M19.90 ; Le g cramps R25.2 and Anxiety F41.9 [place] [address] [address] May, [address] [address] May, [address] [address] May, Diabetic polyneuropathy associated with type 2 diabetes mellitus E11.42 [place] [address] [address] May, [place] [address] [address] Apr, [address] [address] Apr, [place] [address] [address] 17 Apr, [address] [address] Apr, [facility] [address] [address] Apr, [facility] [address] [address] Apr, [facility] [address] [address] Apr, Diabetes with renal manifestations, type II or unspecified type, uncontrolled 250.42 ; Coronary atherosclerosis of unspecified type of vessel, eagle or graft 414.00 ; Polyneuropathy in diabetes 357.2 ; Hypertension 401.9 ; Anxiety 300.00 ; GERD (gastroesophageal reflux disease) 530.81 and Type 2 diabetes mellitus with pressure callus 250.[address] [address] Mar, [address] [address] Mar, [address] [address] Mar, [place] [address] [address] Mar, [address] [address] Mar, Diabetes with renal manifestations, type II or unspecified type, uncontrolled 250.42 ; Coronary atherosclerosis of unspecified type of vessel, eagle or graft 414.00 ; Polyneuropathy in diabetes 357.2 ; Hypertension 401.9 and Anxiety 300.[address] [address] Mar, Routine gynecological examination V72.31 ; Breast cancer screening V76.10 ; Recurrent urinary tract infection 599.0 ; Mastodynia 611.71 and Tobacco abuse 305.[address] [address] Feb, [address] [address] Jan, [facility] [address] [facility] [id number] [place] [address] Jan, [facility] [address] [facility] [id number] [place] [address] Jan, [facility] [address] [id number] [place] [address] Jan, [facility] [address] [id number] [place] [address] December, [facility] [address] [facility] [id number] [place] [address] December, [facility] [address] [id number] [place] [address] Nov, [facility] [address] [id number] [place] [address] 14 Nov, 2014 [facility] [address] [id number] [place] [address] Nov, [facility] [address] [id number] [place] [address] 19 Oct, 2014 [facility] [address] [id number] [place] [address] 19 Oct, 2014 [facility] [address] [id number] [place] [address] 16 Oct, 2014 [facility] [address] [id number] [place] [address] 16 Oct, 2014 [facility] [address] [id number] [place] [address] 16 Oct, 2014 [facility] [address] [facility] [id number] [place] [address] 16 Oct, 2014 [facility] [address] [id number] [place] [address] 16 Oct, 2014 [facility] [address] [id number] [place] [address] 16 Oct, 2014 [facility] [address] [id number] [place] [address] 16 Oct, 2014 [facility] [address] [id number] [facility] [place] [place] [address] 16 Oct, 2014 [facility] [address] [id number] [facility] [place] [place] [address] 16 Oct, 2014 [facility] [address] [id number] [place] [address] 16 Oct, 2014 [facility] [address] [id number] [facility] [place] [place] [address] Oct, 2014 [facility] [address] [id number] [facility] [place] [address] Oct, [facility] [address] [id number] [facility] [place] [address] Oct, 2014 [facility] [address] [id number] [place] [address] Oct, [facility] [address] [id number] [place] [address] Oct, 2014 [facility] [address] [id number] [place] [address] Oct, [facility] [address] [id number] [place] [address] Sep, 2014 [facility] [address] [id number] [place] [address] Sep, 2014 [facility] [address] [id number] [place] [address] Sep, 2014 [facility] [address] [id number] [place] [address] Sep, 2014 [facility] [address] [id number] [place] [address] Sep, 2014 [facility] [address] [id number] [place] [address] Sep, 2014 [facility] [address] [id number] [place] [address] Sep2014 [facility] [address] [id number] [place] [address] Sep, 2014 [facility] [address] [id number] [place] [address] Sep, 2014 [facility] [address] [id number] [place] [address] Sep, 2014 [facility] [address] [id number] [place] [address] Sep, 2014 [facility] [address] [id number] [place] [address] Sep, 2014 [facility] [address] [id number] [place] [address] Sep, 2014 [facility] [address] [id number] [place] [address] Sep, 2014 [facility] [address] [id number] [place] [address] Sep, 2014 [facility] [address] [id number] [place] [address] Aug, [facility] [address] [id number] [place] [address] Aug, [facility] [address] [id number] [place] [address] Aug, [facility] [address] [facility] [id number] [place] [address] Aug, [facility] [address] [id number] [place] [address] Aug, [facility] [address] [id number] [place] [address] Aug, [facility] [address] [id number] [place] [address] Aug, [facility] [address] [id number] [place] [address] Aug, [facility] [address] [id number] [place] [address] Aug, [facility] [address] [id number] [place] [address] Aug, [facility] [address] [id number] [place] [address] Aug, [facility] [address] [id number] [place] [address] Aug, [facility] [address] [id number] [place] [address] Aug, [facility] [address] [id number] [place] [address] Jul, [facility] [address] [id number] [place] [address] Jul, [facility] [address] [id number] [place] [address] Jul, [facility] [address] [id number] [place] [address] Jul, [facility] [address] [id number] [place] [address] Jul, [facility] [address] [id number] [place] [address] Jul, [facility] [address] [id number] [place] [address] Jul, [facility] [address] [id number] [place] [address] Jul, [facility] [address] [id number] [place] [address] Jun, [facility] [address] [id number] [place] [address] Jun, [facility] [address] [id number] [place] [address] Jun, [facility] [address] [id number] [place] [address] Jun, [facility] [address] [id number] [place] [address] Jun, [facility] [address] [id number] [place] [address] Jun, [facility] [address] [id number] [place] [address] Jun, [facility] [address] [id number] [place] [address] Jun, [facility] [address] [id number] [place] [address] Jun, [facility] [address] [id number] [place] [address] Jun, [facility] [address] [id number] [place] [address] Jun, [facility] [address] [id number] [place] [address] Jun, [facility] [address] [id number] [place] [address] Jun, [facility] [address] [id number] [place] [address] Jun, [facility] [address] [id number] [place] [address] Jun, [facility] [address] [id number] [place] [address] Jun, [facility] [address] [id number] [place] [address] May, [facility] [address] [id number] [place] [address] May, [facility] [address] [id number] [place] [address] May, [facility] [address] [id number] [place] [address] May, [facility] [address] [id number] [place] [address] May, [facility] [address] [facility] [id number] [place] [address] May, 2013 [facility] [address] [facility] [id number] [place] [address] May, [facility] [address] [id number] [place] [address] May, [facility] [address] [id number] [place] [address] May, [facility] [address] [facility] [id number] [place] [address] Apr, [facility] [address] [id number] [place] [address] Apr, [facility] [address] [id number] [place] [address] Apr, [facility] [address] [id number] [place] [address] Apr, [facility] [address] [id number] [place] [address] Mar, [facility] [address] [id number] [place] [address] Mar, [facility] [address] [id number] [place] [address] Mar, [facility] [address] [id number] [place] [address] Mar, [facility] [address] [id number] [place] [address] Feb, [facility] [address] [id number] [place] [address] Feb, [facility] [address] [id number] [place] [address] Jan, [facility] [address] [id number] [place] [address] Jan, [facility] [address] [id number] [facility] [place] [address] Jan, [facility] [address] [facility] [id number] [facility] [place] [address] Jan, [facility] [address] [facility] [id number] [place] [address] Jan, [facility] [address] [id number] [place] [address] Jan, [facility] [address] [facility] [id number] [place] [address] Jan, [facility] [address] [facility] [id number] [place] [address] Jan, [facility] [address] [id number] [place] [address] Jan, [facility] [address] [id number] [place] [address] Jan, [facility] [address] [id number] [place] [address] Jan, [facility] [address] [id number] [place] [address] Jan, [facility] [address] [id number] [place] [address] Jan, [facility] [address] [id number] [place] [address] December, [facility] [address] [id number] [place] [address] December, [facility] [address] [facility] [id number] [place] [address] December, [facility] [address] [id number] [place] [address] December, [facility] [address] [id number] [place] [address] December, [facility] [address] [id number] [place] [address] Nov, [facility] [address] [id number] [place] [address] 28 Nov, 2013 [facility] [address] [id number] [place] [address] Nov, [facility] [address] [id number] [place] [address] Nov, [facility] [address] [id number] [place] [address] Nov, [facility] [address] [id number] [place] [address] Nov, [facility] [address] [id number] [place] [address] Nov, [facility] [address] [id number] [place] [address] Nov, [facility] [address] [id number] [place] [address] Nov, [facility] [address] [id number] [place] [address] Nov, [facility] [address] [id number] [place] [address] Jun, [facility] [address] [id number] [place] [address] Jun, [facility] [address] [id number] [place] [address] May, [facility] [address] [id number] [place] [address] May, [facility] [address] [id number] [place] [address] May, [facility] [address] [id number] [place] [address] May, [facility] [address] [id number] [place] [address] May, [facility] [address] [id number] [place] [address] May, [facility] [address] [facility] [id number] [place] [address] May, [facility] [address] [facility] [id number] [place] [address] May, [facility] [address] [id number] [place] [address] May, [facility] [address] [id number] [place] [address] Apr, [facility] [address] [facility] [id number] [place] [address] Apr, 2011 [facility] [address] [id number] [place] [address] 25 Apr, 2012 [facility] [address] [id number] [place] [address] Apr, [facility] [address] [id number] [place] [address] 20 Apr, 2012 [facility] [address] [id number] [place] [address] 19 Apr, 2012 [facility] [address] [id number] [place] [address] 05 Apr, 2012 [facility] [address] [id number] [place] [address] 04 Apr, 2012 [facility] [address] [id number] [place] [address] Mar, [facility] [address] [id number] [place] [address] 27 Mar, 2012 [facility] [address] [id number] [place] [address] 16 Mar, 2012 [facility] [address] [id number] [place] [address] 14 Mar, 2012 [facility] [address] [id number] [place] [address] 07 Mar, 2012 [address] [facility] [address] [place] [id number] Mar, [facility] [address] [facility] [id number] [place] [address] Mar, [facility] [address] [facility] [id number] [facility] [place] [address] Feb, [facility] [address] [id number] [facility] [place] [address] Feb, [facility] [address] [id number] [place] [address] Feb, [facility] [address] [facility] [id number] [facility] [place] [place] [address] Feb, [facility] [address] [id number] [place] [address] Feb, [facility] [address] [id number] [place] [address] Feb, [facility] [address] [id number] [place] [address] Jan, [facility] [address] [id number] [place] [address] Jan, [facility] [address] [id number] [place] [address] Jan, [facility] [address] [id number] [place] [address] Jan, [facility] [address] [id number] [place] [address] Jan, [facility] [address] [id number] [place] [address] Jan, [facility] [address] [id number] [place] [address] Jan, [facility] [address] [id number] [place] [address] December, [facility] [address] [id number] [place] [address] December, [facility] [address] [id number] [place] [address] 14 Dec, 2011 [facility] [address] [id number] [place] [address] 30 Nov, 2011 [facility] [address] [id number] [place] [address] Nov, [facility] [address] [id number] [place] [address] Nov, [facility] [address] [id number] [place] [address] Nov, [facility] [address] [id number] [place] [address] Nov, [facility] [address] [id number] [place] [address] Nov, [facility] [address] [id number] [place] [address] Nov, [facility] [address] [id number] [place] [address] Nov, [facility] [address] [id number] [place] [address] Oct, [facility] [address] [id number] [place] [address] Oct, [facility] [address] [id number] [place] [address] Oct, [facility] [address] [id number] [place] [address] Oct, [facility] [address] [id number] [place] [address] Sep, [facility] [address] [id number] [place] [address] Sep, [facility] [address] [id number] [place] [address] Sep, [facility] [address] [id number] [place] [address] Aug, [facility] [address] [id number] [place] [address] Aug, [facility] [address] [id number] [place] [address] Aug, [facility] [address] [id number] [place] [address] Aug, [facility] [address] [id number] [place] [address] Jul, [facility] [address] [id number] [place] [address] 15 Jul, 2011 [facility] [address] [id number] [place] [address] Jul, [facility] [address] [id number] [place] [address] 30 Jun, 2011 [facility] [id number] [place] [address] 22 Jun, 2011 [facility] [address] [id number] [place] [address] 15 Jun, 2011 [facility] [address] [id number] [place] [address] 14 Jun, 2011 [facility] [address] [id number] [place] [address] 14 Jun, 2011 [facility] [address] [id number] [place] [address] 14 Jun, 2011 [facility] [address] [id number] [place] [address] 31 May, 2011 [facility] [address] [id number] [place] [address] 31 May, 2011 [facility] [address] [id number] [place] [address] 28 May, 2011 [facility] [address] [id number] [place] [address] 12 Apr, 2011 [facility] [address] [id number] [place] [address] Mar, [facility] [address] [facility] [id number] [place] [address] Aug, IMMUNIZATIONS No Known Immunizations SOCIAL HISTORY Never Assessed REASON FOR VISIT PLAN OF CARE VITAL SIGNS Height 68 in 2013-12-03 Weight 209.5 lbs 2013-12-03 Temperature 98.7 degrees Fahrenheit 2013-12-03 Heart Rate 78 bpm 2013-12-03 Respiratory Rate 20 2013-12-03 Blood pressure systolic 144 mmHg 2013-12-03 Blood pressure diastolic 76 mmHg 2013-12-03 MEDICATIONS Unknown Medications RESULTS No Results PROCEDURES Procedure Date Ordered Result Body Site COMPLETE CBC W/AUTO DIFF WBC December 03, 2013 URINE CULTURE/COLONY COUNT December 03, 2013 ASSAY OF LIPASE December 03, 2013 GLYCATED HEMOGLOBIN TEST December 03, 2013 COMPREHEN METABOLIC PANEL December 03, 2013 URINALYSIS, AUTO, W/O SCOPE December 03, 2013 VENIPUNCT, ROUTINE* December 03, 2013 INSTRUCTIONS MEDICATIONS ADMINISTERED No Known Medications MEDICAL (GENERAL) HISTORY Type Description Date Medical History type II diabetes-dx in 1995 Medical History stroke-12/2011-[facility] Medical History cardiovascular disorder-CAD Medical History hyperlipidemia Medical History hypertension Medical History Diabetes with renal manifest ations, type II or unspecified type, uncontrolled Medical History Unspecified late effects of cerebrovascular disease due to cerebrovascular disease Medical History Coronary atherosclerosis of unspecified type of vessel, eagle or graft Surgical History partial hysterectomy 1991 Surgical History heart cath 2011 Hospitalization History [place] 2004 Hospitalization History [facility] for pancreatitis 11/2010 [facility]ization History [facility] a [facility] 12/2011 Hospitalization History farrah infection-Shira Colby 05/31 16 Hospitalization History [facility]- Heart failure , uncontrolled Hyperglycemia. Discharged 06/27/17 06/25/17
--- OUTSIDE RECORDS SUMMARY | 2019-10-21 00:53 | XMS REPORT ---
Author Author Moustapha JEWELL Organization [facility] Address Unknown Care Team Providers Care Glove Pairer Name Role Phone KOBI JEWELL Unavailable PROBLEMS Type Condition ICD9-CM Code [id number] Code Onset Dates Condition S tatus SNOMED Code Problem Diabetic polyneuropathy associated with type 2 d iabetes mellitus E11.42 Active 01905873 Problem Anxiety F41.9 Active 46552577 Problem CAD (coronary artery disease) I25.10 Active 34225690 Problem Left ventricular enlargement I51.7 A ctive 374977007 Problem Ulcer of right lower leg, with unspecified severity L97.919 Active 047611449 Problem Allergic rhinitis J30.9 Active 61 298076 Problem Essential hypertension I10 Active 85028257 Problem Type 2 diabetes mellitus with other skin ulcer E11 .622 Active 12588346 Problem Skin infection L08.9 Active 92728 5000 Problem Stress incontinence in female N39.3 Active 43522205 Problem Non-healing skin lesion L98.9 Active 20063297 Problem Cough R05 Active 882755116 Problem Foot swelling M79.89 Active 248256 003 Problem Atrial enlargement, left I51.7 Activ e [id number] Problem Pulmonary HTN I27.2 Active 014740 07 Problem Neuropathy G62.9 Active 437539418 Problem Stress incontinence of urine N39.3 A ctive 35622282 Problem Dyspepsia R10.13 Active 692451877 Problem 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 Active 154265040 Problem group home 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 Active 158310603 Problem Chronic pain G89.29 Active 2653544 1 Problem Mixed hyperlipidemia E78.2 Active 442204445 Problem Type 2 diabetes mellitus with other circulatory compli cations E11.59 Active 30305480 Problem Urinary incontinence R32 Active 306573430 Problem Moderate episode of recurrent major depressive disorder F33.1 Active 393032338 ALLERGIES No Information ENCOUNTERS Encounter Location Date Diagnosis [address] [place] [address] Nov, [address] [place] [address] Aug, [address] [place] [address] Aug, [address] [place] [address] Aug, Encounter for removal of sut ures Z48.02 ; Wheezing R06.2 ; Type 2 diabetes mellitus with other circulatory complications E11.59 ; Allergic rhinitis J30.9 ; Essential hypertension I10 ; Infection of toe L08.9 and Diabetic polyneuropathy associated with type 2 diabetes mellitus E11.42 [address] [place] [address] Aug, Right knee buckling M25.361 ; Essential hypertension I10 ; Type 2 diabetes mellitus with other circulatory complications E11.59 ; Mixed hyperlipidemia E78.2 ; Shortness of breath on exertion R06.02 ; Wheezing R06.2 ; Moderate episode of recurrent major depressive disorder F33.1 and Diabetic polyneuropathy associated with type 2 diabetes mellitus E11.42 [facility] [place] [address] [place] [address] Aug, Type 2 diabetes mellitus wit h other circulatory complications E11.59 [address] [place] [address] Jul, [facility] [address] [place] [address] Jul, [address] [place] [address] Jul, Essential hypertension I10 [address] [place] [address] Jul, [address] [place] [address] Jun, Stomach pain R10.[address] [place] [address] Jun, Type 2 diabetes mellitus wit h other circulatory complications E11.59 ; Mixed hyperlipidemia E78.2 and Essential hypertension I10 [address] [place] [address] Jun, [address] [place] [address] Jun, [address] [place] [address] Jun, Oxygen decrease R09.02 ; Ess ential hypertension I10 and Stomach pain R10.[address] [place] [address] Jun, Type 2 diabetes mellitus wit h other circulatory complications E11.59 [address] [place] [address] Jun, group home current use of ins ulin Z79.[address] [place] [address] Jun, [address] [place] [address] Jun, [address] [place] [address] Jun, [address] [place] [address] Jun, Bronchitis J40 ; Wheezing R0 6.2 and History of falling Z91.[address] [place] [address] Jun, [address] [place] [address] May, [address] [place] [address] May, Diabetic polyneuropathy asso ciated with type 2 diabetes mellitus E11.42 [address] [place] [address] May, Diabetic polyneuropathy asso ciated with type 2 diabetes mellitus E11.[address] [place] [address] Apr, [address] [place] [address] Apr, Essential hypertension I10 ; Type 2 diabetes mellitus with other circulatory complications E11.59 and Mixed hyperlipidemia E78.[address] [place] [address] Apr, Mixed hyperlipidemia E78.2 ; Type 2 diabetes mellitus with other circulatory complications E11.59 ; Essential hypertension I10 and Pain in joints of right hand M25.541 [address] [place] [address] Apr, Immunization counseling Z71. 89 ; group home 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 ; Type 2 diabetes mellitus with other circulatory complications E11.59 ; Food insecurity Z59.4 and Low-level of literacy Z55.[address] [place] [address] 05 Apr, 2019 Urinary pain R30.9 ; Hematur ia, unspecified type R31.9 ; Urinary tract infection without hematuria, site unspecified N39.0 ; Stress incontinence of urine N39.3 ; Essential hypertension I10 ; Mixed hyperlipidemia E78.2 ; Type 2 diabetes mellitus with other circulatory complications E11.59 and Pain in joints of right hand M25.541 [address] [place] [address] Apr, Diabetic polyneuropathy asso ciated with type 2 diabetes mellitus E11.[address] [place] [address] Mar, [address] [place] [address] Mar, [address] [place] [address] Mar, [facility] [place] [address] [place] [address] Mar, [facility] [place] [address] [place] [address] Mar, [address] [place] [address] Mar, Diabetic polyneuropathy asso ciated with type 2 diabetes mellitus E11.42 [facility] [place] [address] [place] [address] Feb, Type 2 diabetes mellitus wit h other circulatory complications E11.59 [facility] [place] [address] [place] [address] Feb, Essential hypertension I10 [facility] [address] [place] [address] Feb, Diabetic polyneuropathy asso ciated with type 2 diabetes mellitus E11.42 [facility] [place] [address] [place] [address] Feb, Type 2 diabetes mellitus wit h other circulatory complications E11.59 [facility] [place] [address] [place] [address] Feb, [facility] [place] [address] [place] [address] Feb, Moderate episode of recurren t major depressive disorder F33.1 [facility] [place] [address] [place] [address] Feb, Wheezing R06.2 and Cough R05 [facility] [place] [address] [place] [address] Jan, Diabetic polyneuropathy asso ciated with type 2 diabetes mellitus E11.42 [facility] [place] [address] [place] [address] Jan, [facility] [place] [address] [place] [address] 17 Jan, 2019 Wheezing R06.2 and Cough R05 [address] [place] [address] 10 Jan, 2019 Cough R05 ; Bronchitis J40 ; Wheezing R06.2 ; Unspecified superficial injury of left lesser toe(s), subsequent encounter S90.935D and Type 2 diabetes mellitus with other circulatory complications E11 .59 [address] [place] [address] Jan, [address] [place] [address] December, [address] [place] [address] December, [address] [place] [address] December, Encounter for removal of sut ures Z48.[address] [place] [address] December, Diabetic polyneuropathy asso ciated with type 2 diabetes mellitus E11.[address] [place] [address] December, [address] [place] [address] December, Infection of toe L08.[address] [place] [address] December, [facility] [address] [id number] [place] [address] December, Diabetic polyneuropathy associated with type 2 diabetes mellitus E11.42 ; group home 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 ; Urinary incontinence R32 and Type 2 diabetes mellitus with other circulatory complications E11.59 [facility] [address] [id number] [place] [address] December, Essential hypertension I10 ; Type 2 diab etes mellitus with other circulatory complications E11.59 and Dizziness R42 [address] [id number] [place] [address] December, Dizziness R42 ; Essential hypertension I 10 and Type 2 diabetes mellitus with other circulatory complications E11.[address] [place] [address] Nov, Breast lump N63.[address] [place] [address] Nov, Breast lump N63.[address] [place] [address] Nov, Breast lump N63.[address] [place] [address] Nov, [address] [place] [address] Nov, Mixed hyperlipidemia E78.2 ; Essential hypertension I10 and group home 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 [place] [address] Nov, Essential hypertension I10 ; Breast cancer screening Z12.31 ; group home 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 ; Mixed hyperlipidemia E78.2 ; Dysuria R30.0 and Type 2 diabetes mellitus with other circulatory complications E11.59 [id number] [place] [address] May, [id number] [place] [address] Apr, [id number] [place] [address] Apr, Essential hypertension I10 and Diabetic polyneuropathy associated with type 2 diabetes mellitus E11.42 [address] [id number] [place] [address] Mar, [id number] [place] [address] Feb, Onychomycosis B35.1 ; Neuropathy G62.9 a nd Diabetic polyneuropathy associated with type 2 diabetes mellitus E11.42 [address] [address] Feb, [address] [address] December, [address] [address] December, Herpes zoster without complication B02.9 ; Onychia of toe of left foot L03.032 ; Ingrowing toenail with infection L60.0 and Diabetic polyneuropathy associated with type 2 diabetes mellitus E11.42 [address] [address] December, [address] [address] Nov, [address] [address] Oct, Diabetic polyneuropathy associated with type 2 diabetes mellitus E11.42 [address] [address] Oct, Essential hypertension I10 and Diabetic polyneuropathy associated with type 2 diabetes mellitus E11.42 [address] [address] Sep, Diabetic polyneuropathy associated with type 2 diabetes mellitus E11.42 ; Type 2 diabetes mellitus with other skin ulcer E11.622 ; Chronic pain G89.29 ; Anxiety F41.9 ; Essential hypertension I10 ; Hypoxia R09.02 ; Atrial enlargement, left I51.7 and Left ventricular enlargement I51.7 [address] [address] Sep, [address] [address] Aug, [address] [address] Jul, [address] [address] Jul, [address] [address] Jul, CAD (coronary artery disease) I25.10 ; E ssential hypertension I10 ; Pulmonary HTN I27.2 ; Atrial enlargement, left I51.7 and Left ventricular enlargement I51.7 [address] [address] Jun, [address] [address] Jun, [address] [address] Jun, [address] [address] Jun, [address] [address] Jun, Diabetic polyneuropathy associated with type 2 diabetes mellitus E11.42 ; Type 2 diabetes mellitus with other skin ulcer E11.622 ; Chronic pain G89.29 ; Anxiety F41.9 ; Essential hypertension I10 ; Ulcer of right lower leg, with unspecified severity L97.919 ; Pulmonary HTN I27.2 ; Hypoxia R09.02 ; Atrial enlargement, left I51.7 and Left ventricular enlargement I51.7 [address] [address] May, [address] [address] Apr, Diabetic polyneuropathy associated with type 2 diabetes mellitus E11.42 ; Type 2 diabetes mellitus with other skin ulcer E11.622 ; Chronic pain G89.29 ; Anxiety F41.9 ; Cough R05 ; Essential hypertension I10 and Ulcer of right lower leg, with unspecified severity L97.919 [address] [address] Mar, Diabetic polyneuropathy associated with type 2 diabetes mellitus E11.42 ; Chronic pain G89.29 ; Anxiety F41.9 ; Type 2 diabetes mellitus with other skin ulcer E11.622 ; Cough R05 ; Essential hypertension I10 and Ulcer of right lower leg, with unspecified severity L97.919 [address] [address] Feb, [address] [address] Feb, Diabetic polyneuropathy associated with type 2 diabetes mellitus E11.42 ; Chronic pain G89.29 ; Anxiety F41.9 ; Type 2 diabetes mellitus with other skin ulcer E11.622 ; Cough R05 and Essential hypertension I10 [address] [address] Jan, Chronic pain G89.29 ; Anxiety F41.9 and Foot swelling M79.89 [address] [address] December, Chronic pain G89.29 ; Anxiety F41.9 and Stress incontinence in female N39.3 [address] [address] December, [address] [address] Nov, [address] [address] Nov, [address] [address] Nov, [address] [address] Nov, Chronic pain G89.29 ; Anxiety F41.9 ; No n-healing skin lesion L98.9 and Type 2 diabetes mellitus with other skin ulcer E11.622 [address] [address] Nov, Diabetic polyneuropathy associated with type 2 diabetes mellitus E11.42 [address] [address] 14 Nov, 2015 [facility] [address] [address] 08 Nov, 2015 [facility] [address] [address] Nov, [facility] [address] [address] Nov, [facility] [address] [address] Nov, Diabetic polyneuropathy associated with type 2 diabetes mellitus E11.42 [address] [address] Oct, Diabetic polyneuropathy associated with type 2 diabetes mellitus E11.42 ; Essential hypertension I10 ; Chronic pain G89.29 ; Anxiety F41.9 and Skin infection L08.9 [address] [address] Oct, [address] [address] Sep, [address] [address] Sep, Diabetic polyneuropathy associated with type 2 diabetes mellitus E11.42 ; Chronic pain G89.29 ; Anxiety F41.9 and Allergic rhinitis J30.9 [address] [address] Aug, Diabetic polyneuropathy associated with type 2 diabetes mellitus E11.42 ; Chronic pain G89.29 ; Anxiety F41.9 and Allergic rhinitis J30.9 [address] [address] Jul, [address] [address] Jul, Diabetic polyneuropathy associated with type 2 diabetes mellitus E11.42 ; Dyspepsia R10.13 ; Essential hypertension I10 ; 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 ; CAD (coronary artery disease) I25.10 ; Chronic pain G89.29 ; Anxiety F41.9 ; Dysuria R30.0 and Pain of left lower leg M79.662 [address] [address] Jul, [address] [address] Jun, Diabetic polyneuropathy associated with type 2 diabetes mellitus E11.42 and 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 [address] Jun, [address] [address] Jun, Neuropathy G62.9 ; Arthritis M19.90 ; Le g cramps R25.2 and Anxiety F41.9 [address] [address] May, [address] [address] May, [address] [address] May, Diabetic polyneuropathy associated with type 2 diabetes mellitus E11.42 [address] [address] May, [address] [address] Apr, [address] [address] Apr, [address] [address] 17 Apr, 2015 [address] [address] 14 Apr, [id number] [place] [address] Apr, [facility] [address] [address] Apr, [facility] [address] [address] Apr, Diabetes with renal manifestations, type II or unspecified type, uncontrolled 250.42 ; Coronary atherosclerosis of unspecified type of vessel, [place] or graft 414.00 ; Polyneuropathy in diabetes 357.2 ; Hypertension 401.9 ; Anxiety 300.00 ; GERD (gastroesophageal reflux disease) 530.81 and Type 2 diabetes mellitus with pressure callus 250.[address] [address] Mar, [address] [address] Mar, [address] [address] Mar, [facility] [address] [place] [address] Mar, [address] [address] Mar, Diabetes with renal manifestations, type II or unspecified type, uncontrolled 250.42 ; Coronary atherosclerosis of unspecified type of vessel, [place] or graft 414.00 ; Polyneuropathy in diabetes 357.2 ; Hypertension 401.9 and Anxiety 300.[address] [address] Mar, Routine gynecological examination V72.31 ; Breast cancer screening V76.10 ; Recurrent urinary tract infection 599.0 ; Mastodynia 611.71 and Tobacco abuse 305.[address] [address] Feb, [address] [address] Jan, [address] [address] Jan, [facility] [place] [facility] [address] [facility] [id number] [facility] [place] [address] Jan, [facility] [place] [facility] [address] [facility] [id number] [facility] [place] [address] Jan, [facility] [place] [facility] [address] [id number] [facility] [place] [address] December, [facility] [place] [facility] [address] [id number] [place] [address] December, [facility] [place] [facility] [address] [facility] [id number] [facility] [place] [address] Nov, [facility] [place] [facility] [address] [id number] [place] [address] 14 Nov, 2014 [facility] [place] [facility] [address] [id number] [place] [address] Nov, [facility] [place] [facility] [address] [id number] [place] [address] 19 Oct, 2014 [facility] [place] [facility] [address] [id number] [place] [address] 19 Oct, 2014 [facility] [place] [facility] [address] [id number] [place] [address] 16 Oct, 2014 [facility] [place] [facility] [address] [id number] [place] [address] 16 Oct, 2014 [facility] [place] [facility] [address] [id number] [place] [address] 16 Oct, 2014 [facility] [place] [facility] [address] [id number] [place] [address] 16 Oct, 2014 [facility] [place] [facility] [address] [id number] [place] [address] 16 Oct, 2014 [facility] [place] [facility] [address] [id number] [place] [address] 16 Oct, 2014 [facility] [place] [facility] [address] [id number] [place] [address] 16 Oct, 2014 [facility] [place] [facility] [address] [id number] [place] [address] 16 Oct, 2014 [facility] [place] [facility] [address] [facility] [id number] [place] [address] Oct, 2014 [facility] [place] [facility] [address] [id number] [place] [address] Oct, 2014 [facility] [place] [facility] [address] [id number] [place] [address] Oct, 2014 [facility] [place] [facility] [address] [id number] [place] [address] Oct, 2014 [facility] [place] [facility] [address] [id number] [place] [address] Oct, [facility] [place] [facility] [address] [id number] [place] [address] Oct, 2014 [facility] [place] [facility] [address] [id number] [place] [address] Oct, [facility] [place] [facility] [address] [id number] [place] [address] Oct, [facility] [place] [facility] [address] [id number] [place] [address] Sep, [facility] [place] [facility] [address] [id number] [place] [address] Sep, 2014 [facility] [place] [facility] [address] [id number] [place] [address] Sep, 2014 [facility] [place] [facility] [address] [id number] [place] [address] Sep, 2014 [facility] [place] [facility] [address] [id number] [place] [address] Sep, [facility] [place] [facility] [address] [id number] [place] [address] Sep, 2014 [facility] [place] [facility] [address] [id number] [place] [address] Sep, 2014 [facility] [place] [facility] [address] [id number] [place] [address] Sep, [facility] [place] [facility] [address] [id number] [place] [address] Sep, [facility] [place] [facility] [address] [id number] [place] [address] Sep, [facility] [place] [facility] [address] [id number] [place] [address] Sep, [facility] [place] [facility] [address] [id number] [place] [address] Sep, [facility] [place] [facility] [address] [id number] [place] [address] Sep, [facility] [place] [facility] [address] [id number] [place] [address] Sep, [facility] [place] [facility] [address] [id number] [place] [address] Sep, [facility] [place] [facility] [address] [id number] [place] [address] Aug, [facility] [place] [facility] [address] [id number] [place] [address] Aug, [facility] [address] [id number] [place] [address] Aug, [facility] [address] [id number] [place] [address] Aug, [facility] [address] [id number] [place] [address] Aug, [facility] [address] [id number] [place] [address] Aug, [facility] [address] [id number] [place] [address] Aug, [facility] [address] [id number] [place] [address] Aug, [facility] [address] [id number] [place] [address] Aug, [facility] [address] [id number] [place] [address] Aug, [facility] [address] [id number] [place] [address] Aug, [facility] [address] [id number] [place] [address] Aug, [facility] [address] [id number] [place] [address] Aug, [facility] [address] [id number] [place] [address] Jul, [facility] [address] [id number] [place] [address] Jul, [facility] [address] [id number] [place] [address] Jul, [facility] [facility] [address] [id number] [place] [address] Jul, [facility] [address] [id number] [place] [address] Jul, [facility] [address] [id number] [place] [address] Jul, [facility] [address] [id number] [place] [address] Jul, [facility] [address] [id number] [place] [address] Jul, [facility] [address] [id number] [place] [address] Jun, [facility] [address] [id number] [place] [address] Jun, [facility] [id number] [place] [address] Jun, [facility] [address] [id number] [place] [address] Jun, [facility] [address] [id number] [place] [address] Jun, [facility] [address] [id number] [place] [address] Jun, [facility] [address] [id number] [place] [address] Jun, [facility] [address] [id number] [place] [address] Jun, [facility] [address] [id number] [place] [address] Jun, [facility] [address] [facility] [id number] [place] [address] Jun, [facility] [address] [id number] [place] [address] Jun, [facility] [address] [id number] [place] [address] Jun, [facility] [address] [id number] [place] [address] Jun, [facility] [address] [id number] [place] [address] Jun, [facility] [address] [id number] [place] [address] Jun, [facility] [address] [id number] [place] [address] Jun, [facility] [address] [id number] [place] [address] May, [facility] [address] [id number] [place] [address] May, [facility] [address] [id number] [place] [address] May, [facility] [address] [id number] [place] [address] May, [facility] [address] [id number] [place] [address] May, [facility] [address] [id number] [place] [address] May, [facility] [address] [id number] [place] [address] May, [facility] [address] [facility] [id number] [place] [address] May, [facility] [address] [id number] [place] [address] May, [facility] [address] [id number] [place] [address] Apr, [facility] [address] [id number] [place] [address] Apr, [facility] [address] [id number] [place] [address] Apr, [facility] [address] [id number] [place] [address] Apr, [facility] [address] [id number] [place] [address] Mar, [facility] [address] [id number] [place] [address] Mar, [facility] [address] [id number] [place] [address] Mar, [facility] [address] [id number] [place] [address] Mar, [facility] [address] [id number] [place] [address] Feb, [facility] [address] [facility] [id number] [place] [address] Feb, [facility] [address] [id number] [place] [address] Jan, [facility] [address] [id number] [place] [address] Jan, [facility] [address] [id number] [place] [address] Jan, [facility] [address] [id number] [place] [address] Jan, [facility] [address] [id number] [place] [address] Jan, [facility] [address] [id number] [place] [address] Jan, [facility] [address] [id number] [place] [address] Jan, [facility] [address] [id number] [place] [address] Jan, [facility] [address] [id number] [place] [address] Jan, [facility] [address] [id number] [place] [address] Jan, [facility] [address] [id number] [place] [address] Jan, [facility] [address] [id number] [place] [address] Jan, [facility] [address] [id number] [place] [address] Jan, [facility] [address] [id number] [place] [address] December, [facility] [address] [id number] [place] [address] December, [facility] [address] [id number] [place] [address] December, [facility] [address] [id number] [place] [address] December, [facility] [address] [id number] [place] [address] December, [facility] [address] [id number] [place] [address] Nov, [facility] [address] [id number] [place] [address] Nov, [facility] [address] [facility] [id number] [place] [address] Nov, [facility] [address] [id number] [place] [address] Nov, [facility] [address] [id number] [place] [address] Nov, [facility] [address] [id number] [place] [address] Nov, [facility] [address] [facility] [id number] [place] [address] Nov, [facility] [address] [id number] [place] [address] Nov, [facility] [address] [id number] [place] [address] Nov, [facility] [address] [id number] [place] [address] Nov, [facility] [address] [id number] [place] [address] Jun, [facility] [address] [id number] [place] [address] Jun, [facility] [address] [id number] [place] [address] May, 2011 [facility] [address] [id number] [place] [address] May, 2011 [facility] [address] [id number] [place] [address] May, 2011 [facility] [address] [id number] [place] [address] May, 2011 [facility] [address] [id number] [place] [address] May, [facility] [address] [id number] [place] [address] May, [facility] [address] [id number] [place] [address] May, [facility] [address] [id number] [place] [address] May, [facility] [address] [facility] [id number] [place] [address] May, [facility] [address] [id number] [place] [address] Apr, [facility] [address] [id number] [place] [address] Apr, [facility] [address] [id number] [place] [address] Apr, [facility] [address] [id number] [place] [address] Apr, [facility] [address] [id number] [place] [address] 20 Apr, 2012 [facility] [address] [id number] [place] [address] 19 Apr, 2012 [facility] [address] [id number] [place] [address] 05 Apr, 2012 [facility] [address] [id number] [place] [address] 04 Apr, 2012 [facility] [address] [id number] [place] [address] Mar, [facility] [address] [id number] [place] [address] Mar, [facility] [address] [id number] [place] [address] 16 Mar, 2012 [facility] [address] [id number] [place] [address] 14 Mar, 2012 [facility] [address] [id number] [place] [address] Mar, [facility] [address] [place] [id number] Mar, [facility] [address] [id number] [place] [address] Mar, [facility] [address] [id number] [place] [address] Feb, [facility] [address] [id number] [place] [address] Feb, [facility] [address] [id number] [place] [address] Feb, [facility] [address] [id number] [place] [address] Feb, [facility] [address] [id number] [place] [address] Feb, [facility] [address] [id number] [place] [address] Feb, [facility] [address] [id number] [place] [address] Jan, [facility] [address] [id number] [place] [address] Jan, [facility] [address] [id number] [place] [address] Jan, [facility] [address] [id number] [place] [address] Jan, [facility] [address] [id number] [place] [address] Jan, [facility] [address] [id number] [place] [address] Jan, [facility] [address] [id number] [place] [address] Jan, [facility] [address] [id number] [place] [address] December, [facility] [address] [id number] [place] [address] December, [facility] [address] [id number] [place] [address] December, [facility] [address] [id number] [place] [address] 30 Nov, 2011 [facility] [address] [id number] [place] [address] Nov, [facility] [address] [id number] [place] [address] Nov, [facility] [address] [id number] [place] [address] Nov, [facility] [address] [id number] [place] [address] Nov, [facility] [address] [id number] [place] [address] 18 Nov, 2011 [facility] [address] [id number] [place] [address] Nov, [facility] [address] [id number] [place] [address] Nov, [facility] [address] [id number] [place] [address] Oct, [facility] [address] [id number] [place] [address] Oct, [facility] [address] [id number] [place] [address] Oct, [facility] [address] [id number] [place] [address] Oct, [facility] [address] [id number] [place] [address] Sep, [facility] [address] [id number] [place] [address] Sep, [facility] [address] [id number] [place] [address] Sep, [facility] [address] [id number] [place] [address] Aug, [facility] [address] [id number] [place] [address] Aug, [facility] [address] [id number] [place] [address] Aug, [facility] [address] [id number] [place] [address] Aug, [facility] [address] [id number] [place] [address] 15 Jul, 2011 [facility] [address] [id number] [place] [address] 15 Jul, 2011 [facility] [address] [id number] [place] [address] 15 Jul, 2011 [facility] [address] [id number] [place] [address] 30 Jun, 2011 [facility] [address] [id number] [place] [address] Jun, [facility] [address] [id number] [place] [address] 15 Jun, 2011 [facility] [address] [id number] [place] [address] 14 Jun, 2011 [facility] [address] [id number] [place] [address] 14 Jun, 2011 [facility] [address] [id number] [place] [address] 14 Jun, 2011 [facility] [address] [id number] [place] [address] 31 May, 2011 [facility] [address] [id number] [place] [address] 31 May, 2011 [facility] [address] [id number] [place] [address] 28 May, 2011 [facility] [address] [id number] [place] [address] 12 Apr, 2011 [facility] [address] [id number] [place] [address] Mar, [facility] [address] [facility] [id number] [place] [address] Aug, IMMUNIZATIONS No Known Immunizations SOCIAL HISTORY [...] Coronary atherosclerosis of unspecified type of vessel, [place] or graft Surgical History partial hysterectomy 1991 Surgical History heart cath 2004, 2011 Hospitalization History [place] 2004 Hospitalization History [facility] for pancreatitis 11/2010 Hospitalization History [facility] for [facility] 12/2011 Hospitalization History guih infection-[facility] 05/31 16 Hospitalization History [facility]- Heart failure , uncontrolled Hyperglycemia. Discharged 06/27/17 06/25/17
--- OUTSIDE RECORDS SUMMARY | 2019-10-21 00:54 | XMS REPORT ---
Author Author Moustapha Goff Organization [facility] Address [address] [place] [address] Care Team Providers Care [employer] Name Role Phone MALIK Goff Unavailable PROBLEMS Type Condition ICD9-CM Code BUO67-LX Code Onset Dates Condition S tatus SNOMED Code Problem Diabetic polyneuropathy associated with type 2 d iabetes mellitus E11.42 Active 62513008 Problem Anxiety F41.9 Active 77663808 Problem CAD (coronary artery disease) I25.10 Active 84453416 Problem Left ventricular enlargement I51.7 A ctive 564253294 Problem Ulcer of right lower leg, with unspecified severity L97.919 Active 728300917 Problem Allergic rhinitis J30.9 Active 61 935203 Problem Essential hypertension I10 Active 06053113 Problem Type 2 diabetes mellitus with other skin ulcer E11 .622 Active 48442407 Problem Skin infection L08.9 Active 94143 5000 Problem Stress incontinence in female N39.3 Active 70877744 Problem Non-healing skin lesion L98.9 Active 38258706 Problem Cough R05 Active 148898821 Problem Foot swelling M79.89 Active 495999 003 Problem Atrial enlargement, left I51.7 Activ e 42333532616503 Problem Pulmonary HTN I27.2 Active 381623 07 Problem Neuropathy G62.9 Active 328956901 Problem Stress incontinence of urine N39.3 A ctive 81450999 Problem Dyspepsia R10.13 Active 987657925 Problem 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 Active 298756250 Problem [facility] 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 Active 014284062 Problem Chronic pain G89.29 Active 4509985 1 Problem Mixed hyperlipidemia E78.2 Active 499918278 Problem Type 2 diabetes mellitus with other circulatory compli cations E11.59 Active 19903247 Problem Urinary incontinence R32 Active 379345030 Problem Moderate episode of recurrent major depressive disorder F33.1 Active 980603777 ALLERGIES No Information ENCOUNTERS Encounter Location Date Diagnosis [facility] [address] [place] [address] Nov, [facility] [address] [place] [address] Aug, [facility] [address] [place] [address] Aug, [facility] [address] [place] [address] Aug, Encounter for removal of sut ures Z48.02 ; Wheezing R06.2 ; Type 2 diabetes mellitus with other circulatory complications E11.59 ; Allergic rhinitis J30.9 ; Essential hypertension I10 ; Infection of toe L08.9 and Diabetic polyneuropathy associated with type 2 diabetes mellitus E11.42 [facility] [address] [place] [address] Aug, Right knee buckling M25.361 ; Essential hypertension I10 ; Type 2 diabetes mellitus with other circulatory complications E11.59 ; Mixed hyperlipidemia E78.2 ; Shortness of breath on exertion R06.02 ; Wheezing R06.2 ; Moderate episode of recurrent major depressive disorder F33.1 and Diabetic polyneuropathy associated with type 2 diabetes mellitus E11.42 [facility] [address] [place] [address] Aug, Type 2 diabetes mellitus wit h other circulatory complications E11.59 [facility] [address] [place] [address] Jul, [address] [place] [address] Jul, [address] [place] [address] Jul, Essential hypertension I10 [address] [place] [address] Jul, [address] [place] [address] Jun, Stomach pain R10.[address] [place] [address] Jun, Type 2 diabetes mellitus wit h other circulatory complications E11.59 ; Mixed hyperlipidemia E78.2 and Essential hypertension I10 [address] [place] [address] Jun, [address] [place] [address] Jun, [address] [place] [address] Jun, Oxygen decrease R09.02 ; Ess ential hypertension I10 and Stomach pain R10.9 [address] [place] [address] Jun, Type 2 diabetes mellitus wit h other circulatory complications E11.59 [address] [place] [address] Jun, [facility] current use of ins ulin Z79.4 [address] [place] [address] Jun, [address] [place] [address] Jun, [address] [place] [address] Jun, [address] [place] [address] Jun, Bronchitis J40 ; Wheezing R0 6.2 and History of falling Z91.[address] [place] [address] Jun, [address] [place] [address] May, [address] [place] [address] May, Diabetic polyneuropathy asso ciated with type 2 diabetes mellitus E11.42 [address] [place] [address] May, Diabetic polyneuropathy asso ciated with type 2 diabetes mellitus E11.42 [address] [place] [address] Apr, [address] [place] [address] Apr, Essential hypertension I10 ; Type 2 diabetes mellitus with other circulatory complications E11.59 and Mixed hyperlipidemia E78.2 [address] [address] [place] [address] Apr, Mixed hyperlipidemia E78.2 ; Type 2 diabetes mellitus with other circulatory complications E11.59 ; Essential hypertension I10 and Pain in joints of right hand M25.541 [address] [address] [place] [address] Apr, Immunization counseling Z71. 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 ; Type 2 diabetes mellitus with other circulatory complications E11.59 ; Food insecurity Z59.4 and Low-level of literacy Z55.0 [address] [place] [address] 05 Apr, 2019 Urinary pain R30.9 ; Hematur ia, unspecified type R31.9 ; Urinary tract infection without hematuria, site unspecified N39.0 ; Stress incontinence of urine N39.3 ; Essential hypertension I10 ; Mixed hyperlipidemia E78.2 ; Type 2 diabetes mellitus with other circulatory complications E11.59 and Pain in joints of right hand M25.541 [address] [place] [address] Apr, Diabetic polyneuropathy asso ciated with type 2 diabetes mellitus E11.42 [address] [place] [address] Mar, [address] [place] [address] Mar, [facility] [address] [place] [address] Mar, [facility] [address] [place] [address] Mar, [facility] [address] [place] [address] Mar, [facility] [address] [place] [address] Mar, Diabetic polyneuropathy asso ciated with type 2 diabetes mellitus E11.42 [facility] [address] [place] [address] Feb, Type 2 diabetes mellitus wit h other circulatory complications E11.59 [facility] [address] [place] [address] Feb, Essential hypertension I10 [facility] [address] [place] [address] Feb, Diabetic polyneuropathy asso ciated with type 2 diabetes mellitus E11.42 [facility] [address] [place] [address] Feb, Type 2 diabetes mellitus wit h other circulatory complications E11.59 [facility] [address] [place] [address] Feb, [facility] [address] [place] [address] Feb, Moderate episode of recurren t major depressive disorder F33.1 [facility] [address] [place] [address] Feb, Wheezing R06.2 and Cough R05 [facility] [address] [place] [address] Jan, Diabetic polyneuropathy asso ciated with type 2 diabetes mellitus E11.42 [facility] [address] [place] [address] Jan, [facility] [address] [place] [address] Jan, Wheezing R06.2 and Cough R05 [facility] [address] [place] [address] 10 Jan, 2019 Cough R05 ; Bronchitis J40 ; Wheezing R06.2 ; Unspecified superficial injury of left lesser toe(s), subsequent encounter S90.935D and Type 2 diabetes mellitus with other circulatory complications E11 .59 [facility] [address] [place] [address] Jan, [facility] [address] [place] [address] December, [facility] [address] [place] [address] December, [facility] [address] [place] [address] December, Encounter for removal of sut ures Z48.02 [facility] [address] [place] [address] December, Diabetic polyneuropathy asso ciated with type 2 diabetes mellitus E11.42 [facility] [address] [place] [address] December, [facility] [address] [place] [address] December, Infection of toe L08.9 [facility] [address] [place] [address] December, [facility] [address] [id number] [place] [address] December, Diabetic polyneuropathy associated with type 2 diabetes mellitus E11.42 ; [facility] 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 ; Urinary incontinence R32 and Type 2 diabetes mellitus with other circulatory complications E11.59 [facility] [address] [id number] [place] [address] December, Essential hypertension I10 ; Type 2 diab etes mellitus with other circulatory complications E11.59 and Dizziness R42 [place] [id number] [place] [address] December, Dizziness R42 ; Essential hypertension I 10 and Type 2 diabetes mellitus with other circulatory complications E11.[address] [place] [address] Nov, Breast lump N63.[address] [place] [address] Nov, Breast lump N63.[address] [place] [address] Nov, Breast lump N63.[address] [place] [address] Nov, [address] [place] [address] Nov, Mixed hyperlipidemia E78.2 ; Essential hypertension I10 and [facility] 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 [place] [address] Nov, Essential hypertension I10 ; Breast cancer screening Z12.31 ; 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 ; Mixed hyperlipidemia E78.2 ; Dysuria R30.0 and Type 2 diabetes mellitus with other circulatory complications E11.59 [place] [address] [id number] [place] [address] May, [place] [address] [id number] [place] [address] Apr, [place] [place] [id number] [place] [address] Apr, Essential hypertension I10 and Diabetic polyneuropathy associated with type 2 diabetes mellitus E11.42 [place] [address] [id number] [place] [address] Mar, [place] [address] [address] Feb, Onychomycosis B35.1 ; Neuropathy G62.9 a nd Diabetic polyneuropathy associated with type 2 diabetes mellitus E11.42 [place] [address] [address] Feb, [place] [address] [address] December, [place] [address] [address] December, Herpes zoster without complication B02.9 ; Onychia of toe of left foot L03.032 ; Ingrowing toenail with infection L60.0 and Diabetic polyneuropathy associated with type 2 diabetes mellitus E11.42 [place] [address] [address] December, [place] [address] [address] Nov, [place] [address] [address] Oct, Diabetic polyneuropathy associated with type 2 diabetes mellitus E11.42 [place] [address] [address] Oct, Essential hypertension I10 and Diabetic polyneuropathy associated with type 2 diabetes mellitus E11.42 [place] [address] [address] Sep, Diabetic polyneuropathy associated with type 2 diabetes mellitus E11.42 ; Type 2 diabetes mellitus with other skin ulcer E11.622 ; Chronic pain G89.29 ; Anxiety F41.9 ; Essential hypertension I10 ; Hypoxia R09.02 ; Atrial enlargement, left I51.7 and Left ventricular enlargement I51.7 [place] [address] [address] Sep, [place] [address] [address] Aug, [place] [address] [address] Jul, [facility] [address] [address] Jul, [facility] [address] [address] Jul, CAD (coronary artery disease) I25.10 ; E ssential hypertension I10 ; Pulmonary HTN I27.2 ; Atrial enlargement, left I51.7 and Left ventricular enlargement I51.7 [place] [address] [address] Jun, [place] [address] [address] Jun, [place] [address] [address] Jun, [place] [address] [address] Jun, [facility] [address] [address] Jun, Diabetic polyneuropathy associated with type 2 diabetes mellitus E11.42 ; Type 2 diabetes mellitus with other skin ulcer E11.622 ; Chronic pain G89.29 ; Anxiety F41.9 ; Essential hypertension I10 ; Ulcer of right lower leg, with unspecified severity L97.919 ; Pulmonary HTN I27.2 ; Hypoxia R09.02 ; Atrial enlargement, left I51.7 and Left ventricular enlargement I51.7 [place] [address] [address] May, [place] [address] [address] Apr, Diabetic polyneuropathy associated with type 2 diabetes mellitus E11.42 ; Type 2 diabetes mellitus with other skin ulcer E11.622 ; Chronic pain G89.29 ; Anxiety F41.9 ; Cough R05 ; Essential hypertension I10 and Ulcer of right lower leg, with unspecified severity L97.919 [place] [address] [address] Mar, Diabetic polyneuropathy associated with type 2 diabetes mellitus E11.42 ; Chronic pain G89.29 ; Anxiety F41.9 ; Type 2 diabetes mellitus with other skin ulcer E11.622 ; Cough R05 ; Essential hypertension I10 and Ulcer of right lower leg, with unspecified severity L97.919 [place] [address] [address] Feb, [place] [address] [address] Feb, Diabetic polyneuropathy associated with type 2 diabetes mellitus E11.42 ; Chronic pain G89.29 ; Anxiety F41.9 ; Type 2 diabetes mellitus with other skin ulcer E11.622 ; Cough R05 and Essential hypertension I10 [place] [address] [address] Jan, Chronic pain G89.29 ; Anxiety F41.9 and Foot swelling M79.89 [place] [address] [address] December, Chronic pain G89.29 ; Anxiety F41.9 and Stress incontinence in female N39.3 [place] [address] [address] December, [place] [address] [address] Nov, [place] [address] [address] Nov, [place] [address] [address] Nov, [place] [address] [address] Nov, Chronic pain G89.29 ; Anxiety F41.9 ; No n-healing skin lesion L98.9 and Type 2 diabetes mellitus with other skin ulcer E11.622 [place] [address] [address] Nov, Diabetic polyneuropathy associated with type 2 diabetes mellitus E11.42 [facility] [address] [address] Nov, [facility] [address] [address] Nov, [facility] [address] [address] Nov, [facility] [address] [address] Nov, [facility] [address] [address] Nov, Diabetic polyneuropathy associated with type 2 diabetes mellitus E11.42 [facility] [address] [address] Oct, Diabetic polyneuropathy associated with type 2 diabetes mellitus E11.42 ; Essential hypertension I10 ; Chronic pain G89.29 ; Anxiety F41.9 and Skin infection L08.9 [facility] [address] [address] Oct, [facility] [address] [address] Sep, [facility] [address] [address] Sep, Diabetic polyneuropathy associated with type 2 diabetes mellitus E11.42 ; Chronic pain G89.29 ; Anxiety F41.9 and Allergic rhinitis J30.9 [facility] [address] [address] Aug, Diabetic polyneuropathy associated with type 2 diabetes mellitus E11.42 ; Chronic pain G89.29 ; Anxiety F41.9 and Allergic rhinitis J30.9 [facility] [address] [address] Jul, [facility] [address] [address] Jul, Diabetic polyneuropathy associated with type 2 diabetes mellitus E11.42 ; Dyspepsia R10.13 ; Essential hypertension I10 ; 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 ; CAD (coronary artery disease) I25.10 ; Chronic pain G89.29 ; Anxiety F41.9 ; Dysuria R30.0 and Pain of left lower leg M79.662 [place] [address] [address] Jul, [address] [address] Jun, Diabetic polyneuropathy associated with type 2 diabetes mellitus E11.42 and 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 [address] Jun, [address] [address] Jun, Neuropathy G62.9 ; Arthritis M19.90 ; Le g cramps R25.2 and Anxiety F41.9 [place] [address] [address] May, [address] [address] May, [address] [address] May, Diabetic polyneuropathy associated with type 2 diabetes mellitus E11.42 [place] [address] [address] May, [place] [address] [address] Apr, [address] [address] Apr, [place] [address] [address] 17 Apr, [address] [address] Apr, [facility] [address] [address] Apr, [facility] [address] [address] Apr, [facility] [address] [address] Apr, Diabetes with renal manifestations, type II or unspecified type, uncontrolled 250.42 ; Coronary atherosclerosis of unspecified type of vessel, [place] or graft 414.00 ; Polyneuropathy in diabetes 357.2 ; Hypertension 401.9 ; Anxiety 300.00 ; GERD (gastroesophageal reflux disease) 530.81 and Type 2 diabetes mellitus with pressure callus 250.[address] [address] Mar, [address] [address] Mar, [address] [address] Mar, [place] [address] [address] Mar, [address] [address] Mar, Diabetes with renal manifestations, type II or unspecified type, uncontrolled 250.42 ; Coronary atherosclerosis of unspecified type of vessel, [place] or graft 414.00 ; Polyneuropathy in diabetes 357.2 ; Hypertension 401.9 and Anxiety 300.[address] [address] Mar, Routine gynecological examination V72.31 ; Breast cancer screening V76.10 ; Recurrent urinary tract infection 599.0 ; Mastodynia 611.71 and Tobacco abuse 305.[address] [address] Feb, [address] [address] Jan, [facility] [address] [facility] [id number] [place] [address] Jan, [facility] [address] [facility] [id number] [place] [address] Jan, [facility] [address] [id number] [place] [address] Jan, [facility] [address] [id number] [place] [address] December, [facility] [address] [facility] [id number] [place] [address] December, [facility] [address] [id number] [place] [address] Nov, [facility] [address] [id number] [place] [address] 14 Nov, 2014 [facility] [address] [id number] [place] [address] Nov, [facility] [address] [id number] [place] [address] 19 Oct, 2014 [facility] [address] [id number] [place] [address] 19 Oct, 2014 [facility] [address] [id number] [place] [address] 16 Oct, 2014 [facility] [address] [id number] [place] [address] 16 Oct, 2014 [facility] [address] [id number] [place] [address] 16 Oct, 2014 [facility] [address] [facility] [id number] [place] [address] 16 Oct, 2014 [facility] [address] [id number] [place] [address] 16 Oct, 2014 [facility] [address] [id number] [place] [address] 16 Oct, 2014 [facility] [address] [id number] [place] [address] 16 Oct, 2014 [facility] [address] [id number] [facility] [place] [address] 16 Oct, 2014 [facility] [address] [id number] [facility] [place] [address] 16 Oct, 2014 [facility] [address] [id number] [place] [address] 16 Oct, 2014 [facility] [address] [id number] [facility] [place] [address] Oct, 2014 [facility] [address] [id number] [facility] [place] [address] Oct, [facility] [address] [id number] [facility] [place] [address] Oct, 2014 [facility] [address] [id number] [place] [address] Oct, [facility] [address] [id number] [place] [address] Oct, 2014 [facility] [address] [id number] [place] [address] Oct, [facility] [address] [id number] [place] [address] Sep, 2014 [facility] [address] [id number] [place] [address] Sep, 2014 [facility] [address] [id number] [place] [address] Sep, 2014 [facility] [address] [id number] [place] [address] Sep, 2014 [facility] [address] [id number] [place] [address] Sep, 2014 [facility] [address] [id number] [place] [address] Sep, 2014 [facility] [address] [id number] [place] [address] Sep2014 [facility] [address] [id number] [place] [address] Sep, 2014 [facility] [address] [id number] [place] [address] Sep, 2014 [facility] [address] [id number] [place] [address] Sep, 2014 [facility] [address] [id number] [place] [address] Sep, 2014 [facility] [address] [id number] [place] [address] Sep, 2014 [facility] [address] [id number] [place] [address] Sep, 2014 [facility] [address] [id number] [place] [address] Sep, 2014 [facility] [address] [id number] [place] [address] Sep, 2014 [facility] [address] [id number] [place] [address] Aug, [facility] [address] [id number] [place] [address] Aug, [facility] [address] [id number] [place] [address] Aug, [facility] [address] [id number] [place] [address] Aug, [facility] [address] [id number] [place] [address] Aug, [facility] [address] [id number] [place] [address] Aug, [facility] [address] [id number] [place] [address] Aug, [facility] [address] [id number] [place] [address] Aug, [facility] [address] [id number] [place] [address] Aug, [facility] [address] [id number] [place] [address] Aug, [facility] [address] [id number] [place] [address] Aug, [facility] [address] [id number] [place] [address] Aug, [facility] [address] [id number] [place] [address] Aug, [facility] [address] [id number] [place] [address] Jul, [facility] [address] [id number] [place] [address] Jul, [facility] [address] [id number] [place] [address] Jul, [facility] [address] [id number] [place] [address] Jul, [facility] [address] [id number] [place] [address] Jul, [facility] [address] [id number] [place] [address] Jul, [facility] [address] [id number] [place] [address] Jul, [facility] [address] [id number] [place] [address] Jul, [facility] [address] [id number] [place] [address] Jun, [facility] [address] [id number] [place] [address] Jun, [facility] [address] [id number] [place] [address] Jun, [facility] [address] [id number] [place] [address] Jun, [facility] [address] [id number] [place] [address] Jun, [facility] [address] [id number] [place] [address] Jun, [facility] [address] [id number] [place] [address] Jun, [facility] [address] [id number] [place] [address] Jun, [facility] [address] [id number] [place] [address] Jun, [facility] [address] [id number] [place] [address] Jun, [facility] [address] [id number] [place] [address] Jun, [facility] [address] [id number] [place] [address] Jun, [facility] [address] [id number] [place] [address] Jun, [facility] [address] [id number] [place] [address] Jun, [facility] [address] [id number] [place] [address] Jun, [facility] [address] [id number] [place] [address] Jun, [facility] [address] [id number] [place] [address] May, [facility] [address] [id number] [place] [address] May, [facility] [address] [id number] [place] [address] May, [facility] [address] [id number] [place] [address] May, [facility] [address] [id number] [place] [address] May, [facility] [address] [facility] [id number] [place] [address] May, 2013 [facility] [address] [facility] [id number] [place] [address] May, [facility] [address] [id number] [place] [address] May, [facility] [address] [id number] [place] [address] May, [facility] [address] [facility] [id number] [place] [address] Apr, [facility] [address] [id number] [place] [address] Apr, [facility] [address] [id number] [place] [address] Apr, [facility] [address] [id number] [place] [address] Apr, [facility] [address] [id number] [place] [address] Mar, [facility] [address] [id number] [place] [address] Mar, [facility] [address] [id number] [place] [address] Mar, [facility] [address] [id number] [place] [address] Mar, [facility] [address] [id number] [place] [address] Feb, [facility] [address] [id number] [place] [address] Feb, [facility] [address] [id number] [place] [address] Jan, [facility] [address] [id number] [place] [address] Jan, [facility] [address] [id number] [facility] [place] [address] Jan, [facility] [address] [facility] [id number] [facility] [place] [address] Jan, [facility] [address] [facility] [id number] [place] [address] Jan, [facility] [address] [id number] [place] [address] Jan, [facility] [address] [facility] [id number] [place] [address] Jan, [facility] [address] [facility] [id number] [place] [address] Jan, [facility] [address] [id number] [place] [address] Jan, [facility] [address] [id number] [place] [address] Jan, [facility] [address] [id number] [place] [address] Jan, [facility] [address] [id number] [place] [address] Jan, [facility] [address] [id number] [place] [address] Jan, [facility] [address] [id number] [place] [address] December, [facility] [address] [id number] [place] [address] December, [facility] [address] [facility] [id number] [place] [address] December, [facility] [address] [id number] [place] [address] December, [facility] [address] [id number] [place] [address] December, [facility] [address] [id number] [place] [address] Nov, [facility] [address] [id number] [place] [address] 28 Nov, 2013 [facility] [address] [id number] [place] [address] Nov, [facility] [address] [id number] [place] [address] Nov, [facility] [address] [id number] [place] [address] Nov, [facility] [address] [id number] [place] [address] Nov, [facility] [address] [id number] [place] [address] Nov, [facility] [address] [id number] [place] [address] Nov, [facility] [address] [id number] [place] [address] Nov, [facility] [address] [id number] [place] [address] Nov, [facility] [address] [id number] [place] [address] Jun, [facility] [address] [id number] [place] [address] Jun, [facility] [address] [id number] [place] [address] May, [facility] [address] [id number] [place] [address] May, [facility] [address] [id number] [place] [address] May, [facility] [address] [id number] [place] [address] May, [facility] [address] [id number] [place] [address] May, [facility] [address] [id number] [place] [address] May, [facility] [address] [facility] [id number] [place] [address] May, [facility] [address] [facility] [id number] [place] [address] May, [facility] [address] [id number] [place] [address] May, [facility] [address] [id number] [place] [address] Apr, [facility] [address] [facility] [id number] [place] [address] Apr, 2011 [facility] [address] [id number] [place] [address] 25 Apr, 2012 [facility] [address] [id number] [place] [address] Apr, [facility] [address] [id number] [place] [address] 20 Apr, 2012 [facility] [address] [id number] [place] [address] 19 Apr, 2012 [facility] [address] [id number] [place] [address] 05 Apr, 2012 [facility] [address] [id number] [place] [address] 04 Apr, 2012 [facility] [address] [id number] [place] [address] Mar, [facility] [address] [id number] [place] [address] 27 Mar, 2012 [facility] [address] [id number] [place] [address] 16 Mar, 2012 [facility] [address] [id number] [place] [address] 14 Mar, 2012 [facility] [address] [id number] [place] [address] 07 Mar, 2012 [facility] [address] [place] [id number] Mar, [facility] [address] [facility] [id number] [place] [address] Mar, [facility] [address] [facility] [id number] [facility] [place] [address] Feb, [facility] [address] [id number] [facility] [place] [address] Feb, [facility] [address] [id number] [place] [address] Feb, [facility] [address] [facility] [id number] [facility] [place] [address] Feb, [facility] [address] [id number] [place] [address] Feb, [facility] [address] [id number] [place] [address] Feb, [facility] [address] [id number] [place] [address] Jan, [facility] [address] [id number] [place] [address] Jan, [facility] [address] [id number] [place] [address] Jan, [facility] [address] [id number] [place] [address] Jan, [facility] [address] [id number] [place] [address] Jan, [facility] [address] [id number] [place] [address] Jan, [facility] [address] [id number] [place] [address] Jan, [facility] [address] [id number] [place] [address] December, [facility] [address] [id number] [place] [address] December, [facility] [address] [id number] [place] [address] 14 Dec, 2011 [facility] [address] [id number] [place] [address] 30 Nov, 2011 [facility] [address] [id number] [place] [address] Nov, [facility] [address] [id number] [place] [address] Nov, [facility] [address] [id number] [place] [address] Nov, [facility] [address] [id number] [place] [address] Nov, [facility] [address] [id number] [place] [address] Nov, [facility] [address] [id number] [place] [address] Nov, [facility] [address] [id number] [place] [address] Nov, [facility] [address] [id number] [place] [address] Oct, [facility] [address] [id number] [place] [address] Oct, [facility] [address] [id number] [place] [address] Oct, [facility] [address] [id number] [place] [address] Oct, [facility] [address] [id number] [place] [address] Sep, [facility] [address] [id number] [place] [address] Sep, [facility] [address] [id number] [place] [address] Sep, [facility] [address] [id number] [place] [address] Aug, [facility] [address] [id number] [place] [address] Aug, [facility] [address] [id number] [place] [address] Aug, [facility] [address] [id number] [place] [address] Aug, [facility] [address] [id number] [place] [address] Jul, [facility] [address] [id number] [place] [address] 15 Jul, 2011 [facility] [address] [id number] [place] [address] Jul, [facility] [address] [id number] [place] [address] 30 Jun, 2011 [facility] [id number] [place] [address] 22 Jun, 2011 [facility] [address] [id number] [place] [address] 15 Jun, 2011 [facility] [address] [id number] [place] [address] 14 Jun, 2011 [facility] [address] [id number] [place] [address] 14 Jun, 2011 [facility] [address] [id number] [place] [address] 14 Jun, 2011 [facility] [address] [id number] [place] [address] 31 May, 2011 [facility] [address] [id number] [place] [address] 31 May, 2011 [facility] [address] [id number] [place] [address] 28 May, 2011 [facility] [address] [id number] [place] [address] 12 Apr, 2011 [facility] [address] [id number] [place] [address] Mar, [facility] [address] [facility] [id number] [place] [address] Aug, IMMUNIZATIONS No Known Immunizations SOCIAL HISTORY Never Assessed REASON FOR VISIT PLAN OF CARE VITAL SIGNS MEDICATIONS Unknown Medications RESULTS No Results PROCEDURES No Known procedures INSTRUCTIONS MEDICATIONS ADMINISTERED No Known Medications MEDICAL (GENERAL) HISTORY Type Description Date Medical History type II diabetes-dx in 1995 Medical History stroke-12/2011-[facility] Medical History cardiovascular disorder-CAD Medical History hyperlipidemia Medical History hypertension Medical History Diabetes with renal manifest ations, type II or unspecified type, uncontrolled Medical History Unspecified late effects of cerebrovascular disease due to cerebrovascular disease Medical History Coronary atherosclerosis of unspecified type of vessel, [place] or graft Surgical History partial hysterectomy 1991 Surgical History heart cath 2004, 2011 Hospitalization History [place] 2004 Hospitalization History [facility] for pancreatitis 11/2010 Hospitalization History [facility] for a stroke 12/2011 Hospitalization History guih infection-Shira [facility] 05/31 16 Hospitalization History [facility]- Heart failure , uncontrolled Hyperglycemia. Discharged 06/27/17 06/25/17
--- OUTSIDE RECORDS SUMMARY | 2019-10-21 00:54 | XMS REPORT ---
Author Author Moustapha RENAE Organization [facility] Address [address] [place] [address] Care Team Providers Care Head Shipper Name Role Phone ALBIN RENAE Unavailable PROBLEMS Type Condition ICD9-CM Code AVN58-NW Code Onset Dates Condition S tatus SNOMED Code Problem Diabetic polyneuropathy associated with type 2 d iabetes mellitus E11.42 Active 87421669 Problem Anxiety F41.9 Active 92779982 Problem CAD (coronary artery disease) I25.10 Active 66239988 Problem Left ventricular enlargement I51.7 A ctive 801330651 Problem Ulcer of right lower leg, with unspecified severity L97.919 Active 610012605 Problem Allergic rhinitis J30.9 Active 61 978853 Problem Essential hypertension I10 Active 06981255 Problem Type 2 diabetes mellitus with other skin ulcer E11 .622 Active 95096990 Problem Skin infection L08.9 Active 29373 5000 Problem Stress incontinence in female N39.3 Active 34805649 Problem Non-healing skin lesion L98.9 Active 14357620 Problem Cough R05 Active 439134971 Problem Foot swelling M79.89 Active 405565 003 Problem Atrial enlargement, left I51.7 Activ e [id number] Problem Pulmonary HTN I27.2 Active 833213 07 Problem Neuropathy G62.9 Active 428665691 Problem Stress incontinence of urine N39.3 A ctive 11665453 Problem Dyspepsia R10.13 Active 243495562 Problem 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 Active 248069507 Problem 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 Active 491418140 Problem Chronic pain G89.29 Active 2521330 1 Problem Mixed hyperlipidemia E78.2 Active 768137319 Problem Type 2 diabetes mellitus with other circulatory compli cations E11.59 Active 44522643 Problem Urinary incontinence R32 Active 957220387 Problem Moderate episode of recurrent major depressive disorder F33.1 Active 233275556 ALLERGIES No Information ENCOUNTERS Encounter Location Date Diagnosis [facility] [address] [place] [address] 15 Nov, [address] [place] [address] Aug, [address] [place] [address] 15 Aug, 2019 Encounter for removal of sut ures Z48.02 ; Wheezing R06.2 ; Type 2 diabetes mellitus with other circulatory complications E11.59 ; Allergic rhinitis J30.9 ; Essential hypertension I10 ; Infection of toe L08.9 and Diabetic polyneuropathy associated with type 2 diabetes mellitus E11.[address] [place] [address] 15 Aug, 2019 Right knee buckling M25.361 ; Essential hypertension I10 ; Type 2 diabetes mellitus with other circulatory complications E11.59 ; Mixed hyperlipidemia E78.2 ; Shortness of breath on exertion R06.02 ; Wheezing R06.2 ; Moderate episode of recurrent major depressive disorder F33.1 and Diabetic polyneuropathy associated with type 2 diabetes mellitus E11.42 [address] [place] [address] 14 Aug, 2019 Type 2 diabetes mellitus wit h other circulatory complications E11.59 [address] [place] [address] Jul, [address] [place] [address] Jul, [address] [place] [address] Jul, Essential hypertension I10 [address] [place] [address] Jul, [address] [place] [address] Jun, Stomach pain R10.9 [address] [place] [address] Jun, Type 2 diabetes mellitus wit h other circulatory complications E11.59 ; Mixed hyperlipidemia E78.2 and Essential hypertension I10 [address] [place] [address] Jun, [address] [place] [address] Jun, [address] [place] [address] Jun, Oxygen decrease R09.02 ; Ess ential hypertension I10 and Stomach pain R10.9 [address] [place] [address] Jun, Type 2 diabetes mellitus wit h other circulatory complications E11.59 [address] [place] [address] Jun, continuous churn buttermaker current use of ins ulin Z79.4 [address] [place] [address] Jun, [address] [place] [address] Jun, [address] [place] [address] Jun, [address] [place] [address] Jun, Bronchitis J40 ; Wheezing R0 6.2 and History of falling Z91.[address] [place] [address] Jun, [address] [place] [address] May, [address] [place] [address] May, Diabetic polyneuropathy asso ciated with type 2 diabetes mellitus E11.42 [address] [place] [address] May, Diabetic polyneuropathy asso ciated with type 2 diabetes mellitus E11.[address] [place] [address] Apr, [place] [address] [place] [address] Apr, Essential hypertension I10 ; Type 2 diabetes mellitus with other circulatory complications E11.59 and Mixed hyperlipidemia E78.2 [place] [address] [place] [address] Apr, Mixed hyperlipidemia E78.2 ; Type 2 diabetes mellitus with other circulatory complications E11.59 ; Essential hypertension I10 and Pain in joints of right hand M25.541 [place] [address] [place] [address] Apr, Immunization counseling Z71. 89 ; snf 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 ; Type 2 diabetes mellitus with other circulatory complications E11.59 ; Food insecurity Z59.4 and Low-level of literacy Z55.0 [place] [address] [place] [address] 05 Apr, 2019 Urinary pain R30.9 ; Hematur ia, unspecified type R31.9 ; Urinary tract infection without hematuria, site unspecified N39.0 ; Stress incontinence of urine N39.3 ; Essential hypertension I10 ; Mixed hyperlipidemia E78.2 ; Type 2 diabetes mellitus with other circulatory complications E11.59 and Pain in joints of right hand M25.541 [facility] [address] [place] [address] Apr, Diabetic polyneuropathy asso ciated with type 2 diabetes mellitus E11.42 [address] [place] [address] Mar, [address] [place] [address] Mar, [address] [place] [address] Mar, [facility] [address] [place] [address] Mar, [facility] [place] [address] [place] [address] Mar, [facility] [place] [address] [place] [address] Mar, Diabetic polyneuropathy asso ciated with type 2 diabetes mellitus E11.42 [facility] [address] [place] [address] Feb, Type 2 diabetes mellitus wit h other circulatory complications E11.59 [facility] [address] [place] [address] Feb, Essential hypertension I10 [facility] [address] [place] [address] Feb, Diabetic polyneuropathy asso ciated with type 2 diabetes mellitus E11.42 [facility] [address] [place] [address] Feb, Type 2 diabetes mellitus wit h other circulatory complications E11.59 [facility] [address] [place] [address] Feb, [facility] [address] [place] [address] Feb, Moderate episode of recurren t major depressive disorder F33.1 [facility] [address] [place] [address] Feb, Wheezing R06.2 and Cough R05 [facility] [address] [place] [address] Jan, Diabetic polyneuropathy asso ciated with type 2 diabetes mellitus E11.42 [facility] [address] [place] [address] Jan, [facility] [address] [place] [address] Jan, Wheezing R06.2 and Cough R05 [facility] [address] [place] [address] Jan, Cough R05 ; Bronchitis J40 ; Wheezing R06.2 ; Unspecified superficial injury of left lesser toe(s), subsequent encounter S90.935D and Type 2 diabetes mellitus with other circulatory complications E11 .59 [facility] [place] [address] [place] [address] Jan, [address] [place] [address] December, [address] [place] [address] December, [address] [place] [address] December, Encounter for removal of sut ures Z48.02 [facility] [address] [place] [address] December, Diabetic polyneuropathy asso ciated with type 2 diabetes mellitus E11.42 [facility] [address] [place] [address] December, [address] [place] [address] December, Infection of toe L08.9 [facility] [address] [place] [address] December, [place] [address] [facility] [place] [address] December, Diabetic polyneuropathy associated with type 2 diabetes mellitus E11.42 ; 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 ; Urinary incontinence R32 and Type 2 diabetes mellitus with other circulatory complications E11.59 [place] [address] [facility] [place] [address] December, Essential hypertension I10 ; Type 2 diab etes mellitus with other circulatory complications E11.59 and Dizziness R42 [place] [address] [facility] [place] [address] December, Dizziness R42 ; Essential hypertension I 10 and Type 2 diabetes mellitus with other circulatory complications E11.[address] [place] [address] Nov, Breast lump N63.[address] [place] [address] Nov, Breast lump N63.[address] [place] [address] Nov, Breast lump N63.[address] [place] [address] Nov, [address] [place] [address] Nov, Mixed hyperlipidemia E78.2 ; Essential hypertension I10 and snf 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 [place] [address] Nov, Essential hypertension I10 ; Breast cancer screening Z12.31 ; 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 ; Mixed hyperlipidemia E78.2 ; Dysuria R30.0 and Type 2 diabetes mellitus with other circulatory complications E11.59 [place] [address] [place] [id number] [place] [address] May, [place] [address] [address] Apr, [place] [address] [address] Apr, Essential hypertension I10 and Diabetic polyneuropathy associated with type 2 diabetes mellitus E11.42 [place] [address] [place] [id number] [place] [address] Mar, [place] [address] [place] [address] [address] [place] [address] Feb, Onychomycosis B35.1 ; Neuropathy G62.9 a nd Diabetic polyneuropathy associated with type 2 diabetes mellitus E11.42 [facility] [address] [address] Feb, [facility] [address] [address] December, [facility] [address] [address] December, Herpes zoster without complication B02.9 ; Onychia of toe of left foot L03.032 ; Ingrowing toenail with infection L60.0 and Diabetic polyneuropathy associated with type 2 diabetes mellitus E11.42 [place] [address] [address] December, [place] [address] [address] Nov, [place] [address] [address] Oct, Diabetic polyneuropathy associated with type 2 diabetes mellitus E11.42 [place] [address] [address] Oct, Essential hypertension I10 and Diabetic polyneuropathy associated with type 2 diabetes mellitus E11.42 [place] [address] [address] Sep, Diabetic polyneuropathy associated with type 2 diabetes mellitus E11.42 ; Type 2 diabetes mellitus with other skin ulcer E11.622 ; Chronic pain G89.29 ; Anxiety F41.9 ; Essential hypertension I10 ; Hypoxia R09.02 ; Atrial enlargement, left I51.7 and Left ventricular enlargement I51.7 [place] [address] [address] Sep, [facility] [address] [address] Aug, [facility] [address] [address] Jul, [place] [address] [address] Jul, [place] [address] [address] Jul, CAD (coronary artery disease) I25.10 ; E ssential hypertension I10 ; Pulmonary HTN I27.2 ; Atrial enlargement, left I51.7 and Left ventricular enlargement I51.7 [place] [address] [address] Jun, [place] [address] [address] Jun, [place] [address] [address] Jun, [place] [address] [address] Jun, [place] [address] [address] Jun, Diabetic polyneuropathy associated with type 2 diabetes mellitus E11.42 ; Type 2 diabetes mellitus with other skin ulcer E11.622 ; Chronic pain G89.29 ; Anxiety F41.9 ; Essential hypertension I10 ; Ulcer of right lower leg, with unspecified severity L97.919 ; Pulmonary HTN I27.2 ; Hypoxia R09.02 ; Atrial enlargement, left I51.7 and Left ventricular enlargement I51.7 [place] [address] [address] May, [place] [address] [address] Apr, Diabetic polyneuropathy associated with type 2 diabetes mellitus E11.42 ; Type 2 diabetes mellitus with other skin ulcer E11.622 ; Chronic pain G89.29 ; Anxiety F41.9 ; Cough R05 ; Essential hypertension I10 and Ulcer of right lower leg, with unspecified severity L97.919 [place] [address] [address] Mar, Diabetic polyneuropathy associated with type 2 diabetes mellitus E11.42 ; Chronic pain G89.29 ; Anxiety F41.9 ; Type 2 diabetes mellitus with other skin ulcer E11.622 ; Cough R05 ; Essential hypertension I10 and Ulcer of right lower leg, with unspecified severity L97.919 [place] [address] [address] Feb, [place] [address] [address] Feb, Diabetic polyneuropathy associated with type 2 diabetes mellitus E11.42 ; Chronic pain G89.29 ; Anxiety F41.9 ; Type 2 diabetes mellitus with other skin ulcer E11.622 ; Cough R05 and Essential hypertension I10 [place] [address] [address] Jan, Chronic pain G89.29 ; Anxiety F41.9 and Foot swelling M79.89 [place] [address] [address] December, Chronic pain G89.29 ; Anxiety F41.9 and Stress incontinence in female N39.3 [place] [address] [address] December, [place] [address] [address] Nov, [place] [address] [address] Nov, [place] [address] [address] Nov, [place] [address] [address] Nov, Chronic pain G89.29 ; Anxiety F41.9 ; No n-healing skin lesion L98.9 and Type 2 diabetes mellitus with other skin ulcer E11.622 [place] [address] [address] Nov, Diabetic polyneuropathy associated with type 2 diabetes mellitus E11.42 [place] [address] [place] [address] [id number] [place] [address] 14 Nov, 2015 [facility] [address] [address] 08 Nov, 2015 [facility] [address] [address] Nov, [facility] [address] [address] Nov, [facility] [address] [address] Nov, Diabetic polyneuropathy associated with type 2 diabetes mellitus E11.42 [place] [address] [address] Oct, Diabetic polyneuropathy associated with type 2 diabetes mellitus E11.42 ; Essential hypertension I10 ; Chronic pain G89.29 ; Anxiety F41.9 and Skin infection L08.9 [place] [address] [address] Oct, [place] [address] [address] Sep, [place] [address] [address] Sep, Diabetic polyneuropathy associated with type 2 diabetes mellitus E11.42 ; Chronic pain G89.29 ; Anxiety F41.9 and Allergic rhinitis J30.9 [place] [address] [address] Aug, Diabetic polyneuropathy associated with type 2 diabetes mellitus E11.42 ; Chronic pain G89.29 ; Anxiety F41.9 and Allergic rhinitis J30.9 [place] [address] [address] Jul, [place] [address] [address] Jul, Diabetic polyneuropathy associated with type 2 diabetes mellitus E11.42 ; Dyspepsia R10.13 ; Essential hypertension I10 ; snf 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 ; CAD (coronary artery disease) I25.10 ; Chronic pain G89.29 ; Anxiety F41.9 ; Dysuria R30.0 and Pain of left lower leg M79.662 [facility] [address] [address] Jul, [facility] [address] [address] Jun, Diabetic polyneuropathy associated with type 2 diabetes mellitus E11.42 and snf 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 [place] [address] [address] Jun, [place] [address] [address] Jun, Neuropathy G62.9 ; Arthritis M19.90 ; Le g cramps R25.2 and Anxiety F41.9 [place] [address] [address] May, [facility] [address] [address] May, [facility] [address] [address] May, Diabetic polyneuropathy associated with type 2 diabetes mellitus E11.42 [facility] [address] [address] May, [facility] [address] [address] 29 Apr, 2015 [facility] [address] [address] 21 Apr, 2015 [facility] [address] [address] 17 Apr, 2015 [facility] [address] [address] 14 Apr, 2015 [facility] [address] [address] Apr, [facility] [address] [address] Apr, [facility] [address] [address] Apr, Diabetes with renal manifestations, type II or unspecified type, uncontrolled 250.42 ; Coronary atherosclerosis of unspecified type of vessel, campo or graft 414.00 ; Polyneuropathy in diabetes 357.2 ; Hypertension 401.9 ; Anxiety 300.00 ; GERD (gastroesophageal reflux disease) 530.81 and Type 2 diabetes mellitus with pressure callus 250.80 [place] [address] [address] Mar, [address] [address] Mar, [place] [address] [address] Mar, [address] [address] Mar, [place] [address] [address] Mar, Diabetes with renal manifestations, type II or unspecified type, uncontrolled 250.42 ; Coronary atherosclerosis of unspecified type of vessel, campo or graft 414.00 ; Polyneuropathy in diabetes 357.2 ; Hypertension 401.9 and Anxiety 300.[address] [address] Mar, Routine gynecological examination V72.31 ; Breast cancer screening V76.10 ; Recurrent urinary tract infection 599.0 ; Mastodynia 611.71 and Tobacco abuse 305.1 [place] [address] [address] Feb, [place] [address] [address] Jan, [place] [address] [address] Jan, [address] [facility] [id number] [place] [address] Jan, [facility] [address] [facility] [id number] [place] [address] Jan, [facility] [address] [id number] [place] [address] December, [facility] [address] [id number] [place] [address] December, [facility] [address] [facility] [id number] [place] [address] Nov, [facility] [address] [facility] [id number] [place] [address] Nov, [facility] [address] [id number] [place] [address] Nov, [facility] [address] [id number] [place] [address] 19 Oct, 2014 [facility] [address] [id number] [place] [address] 19 Oct, 2014 [facility] [address] [id number] [place] [address] 16 Oct, 2014 [facility] [address] [id number] [place] [address] 16 Oct, 2014 [facility] [address] [id number] [place] [address] 16 Oct, 2014 [facility] [address] [id number] [place] [address] 16 Oct, 2014 [facility] [address] [facility] [id number] [place] [address] 16 Oct, 2014 [facility] [address] [id number] [place] [address] 16 Oct, 2014 [facility] [address] [id number] [place] [address] 16 Oct, 2014 [facility] [address] [id number] [place] [address] 16 Oct, 2014 [facility] [address] [facility] [id number] [place] [address] 16 Oct, 2014 [facility] [address] [facility] [id number] [place] [address] 16 Oct, 2014 [facility] [address] [id number] [place] [address] Oct, 2014 [facility] [address] [id number] [place] [address] 04 Oct, 2014 [facility] [address] [facility] [id number] [place] [address] Oct, 2014 [facility] [address] [id number] [place] [address] Oct, 2014 [facility] [address] [id number] [place] [address] Oct, [facility] [address] [id number] [place] [address] Oct, 2014 [facility] [address] [id number] [place] [address] Sep, 2014 [facility] [address] [id number] [place] [address] Sep, 2014 [facility] [address] [id number] [place] [address] Sep, 2014 [facility] [address] [id number] [place] [address] Sep, 2014 [facility] [address] [id number] [place] [address] Sep, 2014 [facility] [address] [id number] [place] [address] Sep, 2014 [facility] [address] [id number] [place] [address] Sep, 2014 [facility] [address] [id number] [place] [address] Sep, 2014 [facility] [address] [id number] [place] [address] Sep, [facility] [address] [id number] [place] [address] Sep, [facility] [address] [id number] [place] [address] Sep, [facility] [address] [id number] [place] [address] Sep, [facility] [address] [id number] [place] [address] Sep, [facility] [address] [id number] [place] [address] Sep, [facility] [address] [id number] [place] [address] Sep, [facility] [address] [id number] [place] [address] Aug, [facility] [address] [id number] [place] [address] Aug, [facility] [address] [id number] [place] [address] Aug, [facility] [address] [id number] [place] [address] Aug, [facility] [address] [id number] [place] [address] Aug, [facility] [address] [id number] [place] [address] Aug, [facility] [address] [id number] [place] [address] Aug, [facility] [address] [id number] [place] [address] Aug, [facility] [address] [id number] [place] [address] Aug, [facility] [address] [id number] [place] [address] Aug, [facility] [address] [id number] [place] [address] Aug, [facility] [address] [id number] [place] [address] Aug, [facility] [address] [id number] [place] [address] Aug, [facility] [address] [id number] [place] [address] Jul, [facility] [address] [id number] [place] [address] Jul, [facility] [address] [id number] [place] [address] Jul, [facility] [address] [id number] [place] [address] Jul, [facility] [address] [id number] [place] [address] Jul, [facility] [address] [id number] [place] [address] Jul, [facility] [address] [id number] [place] [address] Jul, [facility] [address] [id number] [place] [address] Jul, [facility] [address] [id number] [place] [address] Jun, [facility] [address] [id number] [place] [address] Jun, [facility] [address] [id number] [place] [address] Jun, [facility] [address] [id number] [place] [address] Jun, [facility] [address] [id number] [place] [address] Jun, [facility] [address] [id number] [place] [address] Jun, [facility] [address] [id number] [place] [address] Jun, [facility] [address] [id number] [place] [address] Jun, [facility] [address] [id number] [place] [address] Jun, [facility] [address] [id number] [place] [address] Jun, [facility] [address] [id number] [place] [address] Jun, [facility] [address] [id number] [place] [address] Jun, [facility] [address] [id number] [place] [address] Jun, [facility] [address] [id number] [place] [address] Jun, [facility] [address] [id number] [place] [address] Jun, [facility] [address] [id number] [place] [address] Jun, [facility] [address] [id number] [place] [address] May, [facility] [address] [id number] [place] [address] May, [facility] [address] [id number] [place] [address] May, [facility] [id number] [place] [address] May, [facility] [address] [id number] [place] [address] May, [facility] [address] [id number] [place] [address] May, [facility] [address] [facility] [id number] [place] [address] May, [facility] [address] [facility] [id number] [place] [address] May, [facility] [address] [facility] [id number] [place] [address] May, [facility] [address] [id number] [place] [address] Apr, [facility] [address] [facility] [id number] [place] [address] Apr, [facility] [address] [id number] [place] [address] Apr, [facility] [address] [id number] [place] [address] Apr, [facility] [address] [id number] [place] [address] Mar, [facility] [address] [id number] [place] [address] Mar, [facility] [address] [id number] [place] [address] Mar, [facility] [address] [id number] [place] [address] Mar, [facility] [address] [id number] [place] [address] Feb, [facility] [address] [id number] [place] [address] Feb, [facility] [address] [facility] [id number] [place] [address] Jan, [facility] [address] [id number] [place] [address] Jan, [facility] [address] [id number] [place] [address] Jan, [facility] [address] [id number] [place] [address] Jan, [facility] [address] [facility] [id number] [place] [address] Jan, [facility] [address] [facility] [id number] [place] [address] Jan, [facility] [address] [id number] [place] [address] Jan, [facility] [address] [facility] [id number] [place] [address] Jan, [facility] [address] [facility] [id number] [place] [address] Jan, [facility] [address] [id number] [place] [address] Jan, [facility] [address] [id number] [place] [address] Jan, [facility] [address] [id number] [place] [address] Jan, [facility] [address] [id number] [place] [address] Jan, [facility] [address] [id number] [place] [address] December, [facility] [address] [id number] [place] [address] December, [facility] [address] [id number] [place] [address] December, [facility] [address] [id number] [place] [address] December, [facility] [address] [id number] [place] [address] December, [facility] [address] [id number] [place] [address] Nov, [facility] [address] [id number] [place] [address] Nov, [facility] [address] [id number] [place] [address] Nov, [facility] [address] [id number] [place] [address] Nov, [facility] [address] [id number] [place] [address] Nov, [facility] [address] [id number] [place] [address] Nov, [facility] [address] [id number] [place] [address] Nov, [facility] [address] [id number] [place] [address] Nov, [facility] [address] [id number] [place] [address] Nov, [facility] [address] [id number] [place] [address] Nov, [facility] [address] [id number] [place] [address] Jun, [facility] [address] [id number] [place] [address] Jun, [facility] [address] [id number] [place] [address] May, [facility] [address] [id number] [place] [address] May, 2011 [facility] [address] [id number] [place] [address] May, [facility] [address] [id number] [place] [address] May, 2011 [facility] [id number] [place] [address] May, [facility] [address] [id number] [place] [address] May, [facility] [address] [id number] [place] [address] May, [facility] [address] [id number] [place] [address] May, [facility] [address] [id number] [place] [address] May, [facility] [address] [id number] [place] [address] Apr, [facility] [address] [id number] [place] [address] Apr, [facility] [address] [id number] [place] [address] Apr, [facility] [address] [id number] [place] [address] Apr, [facility] [address] [id number] [place] [address] Apr, [facility] [address] [id number] [place] [address] Apr, [facility] [address] [id number] [place] [address] 05 Apr, 2012 [facility] [address] [id number] [place] [address] Apr, [facility] [address] [id number] [place] [address] Mar, [facility] [address] [id number] [place] [address] Mar, [facility] [address] [id number] [place] [address] 16 Mar, 2012 [facility] [address] [id number] [place] [address] Mar, [facility] [address] [id number] [place] [address] Mar, [facility] [address] [place] [id number] Mar, [facility] [address] [id number] [place] [address] Mar, [facility] [address] [id number] [place] [address] Feb, [facility] [address] [id number] [place] [address] Feb, [facility] [address] [id number] [place] [address] Feb, [facility] [address] [id number] [place] [address] Feb, [facility] [address] [facility] [id number] [place] [address] Feb, [facility] [address] [id number] [place] [address] Feb, [facility] [address] [id number] [place] [address] Jan, [facility] [address] [id number] [place] [address] Jan, [facility] [address] [id number] [place] [address] Jan, [facility] [address] [id number] [place] [address] Jan, [facility] [address] [id number] [place] [address] Jan, [facility] [address] [id number] [place] [address] Jan, [facility] [address] [id number] [place] [address] Jan, [facility] [address] [id number] [place] [address] December, [facility] [address] [id number] [place] [address] December, [facility] [address] [id number] [place] [address] December, [facility] [address] [id number] [place] [address] 30 Nov, 2011 [facility] [address] [facility] [id number] [place] [address] 26 Nov, 2011 [facility] [address] [id number] [place] [address] Nov, [facility] [address] [id number] [place] [address] Nov, [facility] [address] [id number] [place] [address] 20 Nov, 2011 [facility] [address] [id number] [place] [address] 18 Nov, 2011 [facility] [address] [id number] [place] [address] Nov, [facility] [address] [id number] [place] [address] Nov, [facility] [address] [id number] [place] [address] Oct, [facility] [address] [id number] [place] [address] Oct, [facility] [address] [id number] [place] [address] Oct, [facility] [address] [id number] [place] [address] Oct, [facility] [address] [id number] [place] [address] Sep, [facility] [address] [id number] [place] [address] Sep, [facility] [address] [id number] [place] [address] Sep, [facility] [address] [id number] [place] [address] Aug, [facility] [address] [id number] [place] [address] Aug, [facility] [address] [id number] [place] [address] Aug, [facility] [address] [id number] [place] [address] Aug, [facility] [address] [id number] [place] [address] 15 Jul, 2011 [facility] [id number] [place] [address] 15 Jul, 2011 [facility] [address] [id number] [place] [address] 15 Jul, 2011 [facility] [address] [id number] [place] [address] 30 Jun, 2011 [facility] [address] [id number] [place] [address] Jun, [facility] [id number] [place] [address] 15 Jun, 2011 [facility] [address] [id number] [place] [address] 14 Jun, 2011 [facility] [address] [id number] [place] [address] 14 Jun, 2011 [facility] [address] [id number] [place] [address] 14 Jun, 2011 [facility] [address] [id number] [place] [address] 31 May, 2011 [facility] [address] [id number] [place] [address] 31 May, 2011 [facility] [address] [id number] [place] [address] 28 May, 2011 [facility] [id number] [place] [address] 12 Apr, 2011 [facility] [address] [id number] [place] [address] Mar, [facility] [address] [id number] [place] [address] Aug, IMMUNIZATIONS No Known Immunizations SOCIAL HISTORY Never Assessed REASON FOR VISIT PLAN OF CARE VITAL SIGNS MEDICATIONS Unknown Medications RESULTS No Results PROCEDURES No Known procedures INSTRUCTIONS MEDICATIONS ADMINISTERED No Known Medications MEDICAL (GENERAL) HISTORY Type Description Date Medical History type II diabetes-dx in 1995 Medical History stroke-12/2011-Alex's Medical History cardiovascular disorder-CAD Medical History hyperlipidemia Medical History hypertension Medical History Diabetes with renal manifest ations, type II or unspecified type, uncontrolled Medical History Unspecified late effects of cerebrovascular disease due to cerebrovascular disease Medical History Coronary atherosclerosis of unspecified type of vessel, campo or graft Surgical History partial hysterectomy 1991 Surgical History heart cath 2004, 2011 Hospitalization History minor MD 2004 Hospitalization History [facility] for pancreatitis 11/2010 Hospitalization History [facility] for a stroke 12/2011 Hospitalization History farrah infection-Shira Colby 05/31 16 Hospitalization History [facility] Krish- Heart failure , uncontrolled Hyperglycemia. Discharged 06/27/17 06/25/17
--- OUTSIDE RECORDS SUMMARY | 2019-10-21 00:55 | XMS REPORT ---
Author Author Moustapha RENAE Organization [facility] Address [address] [place] [address] Care Team Providers Care Driver Education Instructor Name Role Phone ALBIN RENAE Unavailable PROBLEMS Type Condition ICD9-CM Code ABA07-SP Code Onset Dates Condition S tatus SNOMED Code Problem Diabetic polyneuropathy associated with type 2 d iabetes mellitus E11.42 Active 73263466 Problem Anxiety F41.9 Active 02264143 Problem CAD (coronary artery disease) I25.10 Active 89573387 Problem Left ventricular enlargement I51.7 A ctive 388625898 Problem Ulcer of right lower leg, with unspecified severity L97.919 Active 547561140 Problem Allergic rhinitis J30.9 Active 61 223821 Problem Essential hypertension I10 Active 08493447 Problem Type 2 diabetes mellitus with other skin ulcer E11 .622 Active 32537845 Problem Skin infection L08.9 Active 99569 5000 Problem Stress incontinence in female N39.3 Active 56691468 Problem Non-healing skin lesion L98.9 Active 60185042 Problem Cough R05 Active 684638700 Problem Foot swelling M79.89 Active 606792 003 Problem Atrial enlargement, left I51.7 Activ e [id number] Problem Pulmonary HTN I27.2 Active 305875 07 Problem Neuropathy G62.9 Active 105452351 Problem Stress incontinence of urine N39.3 A ctive 63516793 Problem Dyspepsia R10.13 Active 673975267 Problem 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 Active 874521756 Problem 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 Active 600555848 Problem Chronic pain G89.29 Active 6825608 1 Problem Mixed hyperlipidemia E78.2 Active 623730204 Problem Type 2 diabetes mellitus with other circulatory compli cations E11.59 Active 25402671 Problem Urinary incontinence R32 Active 638173106 Problem Moderate episode of recurrent major depressive disorder F33.1 Active 084554100 ALLERGIES No Information ENCOUNTERS Encounter Location Date Diagnosis [facility] [address] [place] [address] 15 Nov, [address] [place] [address] Aug, [address] [place] [address] 15 Aug, 2019 Encounter for removal of sut ures Z48.02 ; Wheezing R06.2 ; Type 2 diabetes mellitus with other circulatory complications E11.59 ; Allergic rhinitis J30.9 ; Essential hypertension I10 ; Infection of toe L08.9 and Diabetic polyneuropathy associated with type 2 diabetes mellitus E11.[address] [place] [address] 15 Aug, 2019 Right knee buckling M25.361 ; Essential hypertension I10 ; Type 2 diabetes mellitus with other circulatory complications E11.59 ; Mixed hyperlipidemia E78.2 ; Shortness of breath on exertion R06.02 ; Wheezing R06.2 ; Moderate episode of recurrent major depressive disorder F33.1 and Diabetic polyneuropathy associated with type 2 diabetes mellitus E11.[address] [place] [address] 14 Aug, 2019 Type 2 diabetes mellitus wit h other circulatory complications E11.[address] [place] [address] Jul, [address] [place] [address] Jul, [address] [place] [address] Jul, Essential hypertension I10 [address] [place] [address] Jul, [address] [place] [address] Jun, Stomach pain R10.[address] [place] [address] Jun, Type 2 diabetes mellitus wit h other circulatory complications E11.59 ; Mixed hyperlipidemia E78.2 and Essential hypertension I10 [address] [place] [address] Jun, [address] [place] [address] Jun, [address] [place] [address] Jun, Oxygen decrease R09.02 ; Ess ential hypertension I10 and Stomach pain R10.[address] [place] [address] Jun, Type 2 diabetes mellitus wit h other circulatory complications E11.59 [address] [place] [address] Jun, ocean transportation intermediary current use of ins ulin Z79.[address] [place] [address] Jun, [address] [place] [address] Jun, [address] [place] [address] Jun, [address] [place] [address] Jun, Bronchitis J40 ; Wheezing R0 6.2 and History of falling Z91.[address] [place] [address] Jun, [address] [place] [address] May, [address] [place] [address] May, Diabetic polyneuropathy asso ciated with type 2 diabetes mellitus E11.[address] [place] [address] May, Diabetic polyneuropathy asso ciated with type 2 diabetes mellitus E11.[address] [place] [address] Apr, [address] [place] [address] Apr, Essential hypertension I10 ; Type 2 diabetes mellitus with other circulatory complications E11.59 and Mixed hyperlipidemia E78.2 [address] [place] [address] Apr, Mixed hyperlipidemia E78.2 ; Type 2 diabetes mellitus with other circulatory complications E11.59 ; Essential hypertension I10 and Pain in joints of right hand M25.541 [address] [place] [address] Apr, Immunization counseling Z71. 89 ; FCI 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 ; Type 2 diabetes mellitus with other circulatory complications E11.59 ; Food insecurity Z59.4 and Low-level of literacy Z55.0 [address] [place] [address] 05 Apr, 2019 Urinary pain R30.9 ; Hematur ia, unspecified type R31.9 ; Urinary tract infection without hematuria, site unspecified N39.0 ; Stress incontinence of urine N39.3 ; Essential hypertension I10 ; Mixed hyperlipidemia E78.2 ; Type 2 diabetes mellitus with other circulatory complications E11.59 and Pain in joints of right hand M25.541 [facility] [address] [place] [address] Apr, Diabetic polyneuropathy asso ciated with type 2 diabetes mellitus E11.42 [address] [place] [address] Mar, [address] [place] [address] Mar, [address] [place] [address] Mar, [facility] [address] [place] [address] Mar, [facility] [address] [place] [address] Mar, [facility] [address] [place] [address] Mar, Diabetic polyneuropathy asso ciated with type 2 diabetes mellitus E11.42 [facility] [address] [place] [address] Feb, Type 2 diabetes mellitus wit h other circulatory complications E11.59 [facility] [address] [place] [address] Feb, Essential hypertension I10 [facility] [address] [place] [address] Feb, Diabetic polyneuropathy asso ciated with type 2 diabetes mellitus E11.42 [facility] [address] [place] [address] Feb, Type 2 diabetes mellitus wit h other circulatory complications E11.59 [facility] [address] [place] [address] Feb, [facility] [address] [place] [address] Feb, Moderate episode of recurren t major depressive disorder F33.1 [facility] [address] [place] [address] Feb, Wheezing R06.2 and Cough R05 [facility] [address] [place] [address] Jan, Diabetic polyneuropathy asso ciated with type 2 diabetes mellitus E11.42 [facility] [address] [place] [address] Jan, [facility] [address] [place] [address] Jan, Wheezing R06.2 and Cough R05 [facility] [address] [place] [address] Jan, Cough R05 ; Bronchitis J40 ; Wheezing R06.2 ; Unspecified superficial injury of left lesser toe(s), subsequent encounter S90.935D and Type 2 diabetes mellitus with other circulatory complications E11 .59 [facility] [address] [place] [address] Jan, [address] [place] [address] December, [address] [place] [address] December, [address] [place] [address] December, Encounter for removal of sut ures Z48.02 [facility] [address] [place] [address] December, Diabetic polyneuropathy asso ciated with type 2 diabetes mellitus E11.42 [facility] [address] [place] [address] December, [address] [place] [address] December, Infection of toe L08.9 [facility] [address] [place] [address] December, [place] [address] [id number] [place] [address] December, Diabetic polyneuropathy associated with type 2 diabetes mellitus E11.42 ; 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 ; Urinary incontinence R32 and Type 2 diabetes mellitus with other circulatory complications E11.59 [place] [address] [id number] [place] [address] December, Essential hypertension I10 ; Type 2 diab etes mellitus with other circulatory complications E11.59 and Dizziness R42 [place] [address] [id number] [place] [address] December, Dizziness R42 ; Essential hypertension I 10 and Type 2 diabetes mellitus with other circulatory complications E11.[address] [place] [address] Nov, Breast lump N63.[address] [place] [address] Nov, Breast lump N63.[address] [place] [address] Nov, Breast lump N63.[address] [place] [address] Nov, [address] [place] [address] Nov, Mixed hyperlipidemia E78.2 ; Essential hypertension I10 and FCI 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 [place] [address] Nov, Essential hypertension I10 ; Breast cancer screening Z12.31 ; 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 ; Mixed hyperlipidemia E78.2 ; Dysuria R30.0 and Type 2 diabetes mellitus with other circulatory complications E11.59 [place] [address] [place] [id number] [place] [address] May, [place] [address] [address] Apr, [place] [address] [address] Apr, Essential hypertension I10 and Diabetic polyneuropathy associated with type 2 diabetes mellitus E11.42 [place] [address] [place] [id number] [place] [address] Mar, [place] [address] [place] [id number] [place] [address] Feb, Onychomycosis B35.1 ; Neuropathy G62.9 a nd Diabetic polyneuropathy associated with type 2 diabetes mellitus E11.42 [facility] [address] [address] Feb, [facility] [address] [address] December, [facility] [address] [address] December, Herpes zoster without complication B02.9 ; Onychia of toe of left foot L03.032 ; Ingrowing toenail with infection L60.0 and Diabetic polyneuropathy associated with type 2 diabetes mellitus E11.42 [place] [address] [address] December, [place] [address] [address] Nov, [place] [address] [address] Oct, Diabetic polyneuropathy associated with type 2 diabetes mellitus E11.42 [place] [address] [address] Oct, Essential hypertension I10 and Diabetic polyneuropathy associated with type 2 diabetes mellitus E11.42 [place] [address] [address] Sep, Diabetic polyneuropathy associated with type 2 diabetes mellitus E11.42 ; Type 2 diabetes mellitus with other skin ulcer E11.622 ; Chronic pain G89.29 ; Anxiety F41.9 ; Essential hypertension I10 ; Hypoxia R09.02 ; Atrial enlargement, left I51.7 and Left ventricular enlargement I51.7 [place] [address] [address] Sep, [facility] [address] [address] Aug, [facility] [address] [address] Jul, [place] [address] [address] Jul, [place] [address] [address] Jul, CAD (coronary artery disease) I25.10 ; E ssential hypertension I10 ; Pulmonary HTN I27.2 ; Atrial enlargement, left I51.7 and Left ventricular enlargement I51.7 [place] [address] [address] Jun, [place] [address] [address] Jun, [place] [address] [address] Jun, [place] [address] [address] Jun, [place] [address] [address] Jun, Diabetic polyneuropathy associated with type 2 diabetes mellitus E11.42 ; Type 2 diabetes mellitus with other skin ulcer E11.622 ; Chronic pain G89.29 ; Anxiety F41.9 ; Essential hypertension I10 ; Ulcer of right lower leg, with unspecified severity L97.919 ; Pulmonary HTN I27.2 ; Hypoxia R09.02 ; Atrial enlargement, left I51.7 and Left ventricular enlargement I51.7 [place] [address] [address] May, [place] [address] [address] Apr, Diabetic polyneuropathy associated with type 2 diabetes mellitus E11.42 ; Type 2 diabetes mellitus with other skin ulcer E11.622 ; Chronic pain G89.29 ; Anxiety F41.9 ; Cough R05 ; Essential hypertension I10 and Ulcer of right lower leg, with unspecified severity L97.919 [place] [address] [address] Mar, Diabetic polyneuropathy associated with type 2 diabetes mellitus E11.42 ; Chronic pain G89.29 ; Anxiety F41.9 ; Type 2 diabetes mellitus with other skin ulcer E11.622 ; Cough R05 ; Essential hypertension I10 and Ulcer of right lower leg, with unspecified severity L97.919 [place] [address] [address] Feb, [place] [address] [address] Feb, Diabetic polyneuropathy associated with type 2 diabetes mellitus E11.42 ; Chronic pain G89.29 ; Anxiety F41.9 ; Type 2 diabetes mellitus with other skin ulcer E11.622 ; Cough R05 and Essential hypertension I10 [place] [address] [address] Jan, Chronic pain G89.29 ; Anxiety F41.9 and Foot swelling M79.89 [place] [address] [address] December, Chronic pain G89.29 ; Anxiety F41.9 and Stress incontinence in female N39.3 [place] [address] [address] December, [place] [address] [address] Nov, [place] [address] [address] Nov, [place] [address] [address] Nov, [place] [address] [address] Nov, Chronic pain G89.29 ; Anxiety F41.9 ; No n-healing skin lesion L98.9 and Type 2 diabetes mellitus with other skin ulcer E11.622 [place] [address] [address] Nov, Diabetic polyneuropathy associated with type 2 diabetes mellitus E11.42 [place] [address] [place] [id number] [place] [address] 14 Nov, 2015 [facility] [address] [address] 08 Nov, 2015 [facility] [address] [address] Nov, [facility] [address] [address] Nov, [facility] [address] [address] Nov, Diabetic polyneuropathy associated with type 2 diabetes mellitus E11.42 [place] [address] [address] Oct, Diabetic polyneuropathy associated with type 2 diabetes mellitus E11.42 ; Essential hypertension I10 ; Chronic pain G89.29 ; Anxiety F41.9 and Skin infection L08.9 [place] [address] [address] Oct, [place] [address] [address] Sep, [place] [address] [address] Sep, Diabetic polyneuropathy associated with type 2 diabetes mellitus E11.42 ; Chronic pain G89.29 ; Anxiety F41.9 and Allergic rhinitis J30.9 [place] [address] [address] Aug, Diabetic polyneuropathy associated with type 2 diabetes mellitus E11.42 ; Chronic pain G89.29 ; Anxiety F41.9 and Allergic rhinitis J30.9 [place] [address] [address] Jul, [place] [address] [address] Jul, Diabetic polyneuropathy associated with type 2 diabetes mellitus E11.42 ; Dyspepsia R10.13 ; Essential hypertension I10 ; FCI 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 ; CAD (coronary artery disease) I25.10 ; Chronic pain G89.29 ; Anxiety F41.9 ; Dysuria R30.0 and Pain of left lower leg M79.662 [facility] [address] [address] Jul, [facility] [address] [address] Jun, Diabetic polyneuropathy associated with type 2 diabetes mellitus E11.42 and FCI 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 [place] [address] [address] Jun, [place] [address] [address] Jun, Neuropathy G62.9 ; Arthritis M19.90 ; Le g cramps R25.2 and Anxiety F41.9 [place] [address] [address] May, [facility] [address] [address] May, [facility] [address] [address] May, Diabetic polyneuropathy associated with type 2 diabetes mellitus E11.42 [facility] [address] [address] May, [facility] [address] [address] 29 Apr, 2015 [facility] [address] [address] 21 Apr, 2015 [facility] [address] [address] 17 Apr, 2015 [facility] [address] [address] 14 Apr, 2015 [facility] [address] [address] Apr, [facility] [address] [address] Apr, [facility] [address] [address] Apr, Diabetes with renal manifestations, type II or unspecified type, uncontrolled 250.42 ; Coronary atherosclerosis of unspecified type of vessel, [place] or graft 414.00 ; Polyneuropathy in diabetes 357.2 ; Hypertension 401.9 ; Anxiety 300.00 ; GERD (gastroesophageal reflux disease) 530.81 and Type 2 diabetes mellitus with pressure callus 250.80 [place] [address] [address] Mar, [address] [address] Mar, [place] [address] [address] Mar, [address] [address] Mar, [place] [address] [address] Mar, Diabetes with renal manifestations, type II or unspecified type, uncontrolled 250.42 ; Coronary atherosclerosis of unspecified type of vessel, [place] or graft 414.00 ; Polyneuropathy in diabetes 357.2 ; Hypertension 401.9 and Anxiety 300.[address] [address] Mar, Routine gynecological examination V72.31 ; Breast cancer screening V76.10 ; Recurrent urinary tract infection 599.0 ; Mastodynia 611.71 and Tobacco abuse 305.1 [place] [address] [address] Feb, [place] [address] [address] Jan, [place] [address] [address] Jan, [address] [facility] [id number] [place] [address] Jan, [facility] [address] [facility] [id number] [place] [address] Jan, [facility] [address] [id number] [place] [address] December, [facility] [address] [id number] [place] [address] December, [facility] [address] [facility] [id number] [place] [address] Nov, [facility] [address] [facility] [id number] [place] [address] Nov, [facility] [address] [id number] [place] [address] Nov, [facility] [address] [id number] [place] [address] 19 Oct, 2014 [facility] [address] [id number] [place] [address] 19 Oct, 2014 [facility] [address] [id number] [place] [address] 16 Oct, 2014 [facility] [address] [id number] [place] [address] 16 Oct, 2014 [facility] [address] [id number] [place] [address] 16 Oct, 2014 [facility] [address] [id number] [place] [address] 16 Oct, 2014 [facility] [address] [facility] [id number] [place] [address] 16 Oct, 2014 [facility] [address] [id number] [place] [address] 16 Oct, 2014 [facility] [address] [id number] [place] [address] 16 Oct, 2014 [facility] [address] [id number] [place] [address] 16 Oct, 2014 [facility] [address] [facility] [id number] [facility] [place] [address] 16 Oct, 2014 [facility] [address] [facility] [id number] [facility] [place] [address] 16 Oct, 2014 [facility] [address] [id number] [facility] [place] [address] Oct, 2014 [facility] [address] [id number] [facility] [place] [address] 04 Oct, 2014 [facility] [address] [facility] [id number] [facility] [place] [address] Oct, 2014 [facility] [address] [id number] [place] [address] Oct, 2014 [facility] [address] [id number] [place] [address] Oct, [facility] [address] [id number] [place] [address] Oct, 2014 [facility] [address] [id number] [facility] [place] [address] Sep, 2014 [facility] [address] [id number] [place] [address] Sep, 2014 [facility] [address] [id number] [place] [address] Sep, 2014 [facility] [address] [id number] [place] [address] Sep, 2014 [facility] [address] [id number] [place] [address] Sep, 2014 [facility] [address] [id number] [place] [address] Sep, 2014 [facility] [address] [id number] [place] [address] Sep, 2014 [facility] [address] [id number] [place] [address] Sep, 2014 [facility] [address] [id number] [place] [address] Sep, [facility] [address] [id number] [place] [address] Sep, [facility] [address] [id number] [place] [address] Sep, [facility] [address] [id number] [place] [address] Sep, [facility] [address] [id number] [place] [address] Sep, [facility] [address] [id number] [place] [address] Sep, [facility] [address] [id number] [place] [address] Sep, [facility] [address] [id number] [place] [address] Aug, [facility] [address] [id number] [place] [address] Aug, [facility] [address] [id number] [place] [address] Aug, [facility] [address] [id number] [place] [address] Aug, [facility] [address] [id number] [place] [address] Aug, [facility] [address] [id number] [place] [address] Aug, [facility] [address] [id number] [place] [address] Aug, [facility] [address] [id number] [place] [address] Aug, [facility] [address] [id number] [place] [address] Aug, [facility] [address] [id number] [place] [address] Aug, [facility] [address] [id number] [place] [address] Aug, [facility] [address] [id number] [place] [address] Aug, [facility] [address] [id number] [place] [address] Aug, [facility] [address] [id number] [place] [address] Jul, [facility] [address] [id number] [place] [address] Jul, [facility] [address] [id number] [place] [address] Jul, [facility] [address] [id number] [place] [address] Jul, [facility] [address] [id number] [place] [address] Jul, [facility] [address] [id number] [place] [address] Jul, [facility] [address] [id number] [place] [address] Jul, [facility] [address] [id number] [place] [address] Jul, [facility] [address] [id number] [place] [address] Jun, [facility] [address] [id number] [place] [address] Jun, [facility] [address] [id number] [place] [address] Jun, [facility] [address] [id number] [place] [address] Jun, [facility] [address] [id number] [place] [address] Jun, [facility] [address] [id number] [place] [address] Jun, [facility] [address] [id number] [place] [address] Jun, [facility] [address] [id number] [place] [address] Jun, [facility] [address] [id number] [place] [address] Jun, [facility] [address] [id number] [place] [address] Jun, [facility] [address] [id number] [place] [address] Jun, [facility] [address] [id number] [place] [address] Jun, [facility] [address] [id number] [place] [address] Jun, [facility] [address] [id number] [place] [address] Jun, [facility] [address] [id number] [place] [address] Jun, [facility] [address] [id number] [place] [address] Jun, [facility] [address] [id number] [place] [address] May, [facility] [address] [id number] [place] [address] May, [facility] [address] [id number] [place] [address] May, [facility] [id number] [place] [address] May, [facility] [address] [id number] [place] [address] May, [facility] [address] [id number] [place] [address] May, [facility] [address] [facility] [id number] [place] [address] May, [facility] [address] [facility] [id number] [place] [address] May, [facility] [address] [facility] [id number] [place] [address] May, [facility] [address] [id number] [place] [address] Apr, [facility] [address] [facility] [id number] [place] [address] Apr, [facility] [address] [id number] [place] [address] Apr, [facility] [address] [id number] [place] [address] Apr, [facility] [address] [id number] [place] [address] Mar, [facility] [address] [id number] [place] [address] Mar, [facility] [address] [id number] [place] [address] Mar, [facility] [address] [id number] [place] [address] Mar, [facility] [address] [id number] [place] [address] Feb, [facility] [address] [id number] [place] [address] Feb, [facility] [address] [facility] [id number] [place] [address] Jan, [facility] [address] [id number] [place] [address] Jan, [facility] [address] [id number] [place] [address] Jan, [facility] [address] [id number] [place] [address] Jan, [facility] [address] [facility] [id number] [facility] [place] [address] Jan, [facility] [address] [facility] [id number] [facility] [place] [address] Jan, [facility] [address] [id number] [place] [address] Jan, [facility] [address] [facility] [id number] [place] [address] Jan, [facility] [address] [facility] [id number] [facility] [place] [address] Jan, [facility] [address] [id number] [place] [address] Jan, [facility] [address] [id number] [place] [address] Jan, [facility] [address] [id number] [place] [address] Jan, [facility] [address] [id number] [place] [address] Jan, [facility] [address] [id number] [place] [address] December, [facility] [address] [id number] [place] [address] December, [facility] [address] [id number] [place] [address] December, [facility] [address] [id number] [place] [address] December, [facility] [address] [id number] [place] [address] December, [facility] [address] [id number] [place] [address] Nov, [facility] [address] [id number] [place] [address] Nov, [facility] [address] [id number] [place] [address] Nov, [facility] [address] [id number] [place] [address] Nov, [facility] [address] [id number] [place] [address] Nov, [facility] [address] [id number] [place] [address] Nov, [facility] [address] [id number] [place] [address] Nov, [facility] [address] [id number] [place] [address] Nov, [facility] [address] [id number] [place] [address] Nov, [facility] [address] [id number] [place] [address] Nov, [facility] [address] [id number] [place] [address] Jun, [facility] [address] [id number] [place] [address] Jun, [facility] [address] [id number] [place] [address] May, [facility] [address] [id number] [place] [address] May, 2011 [facility] [address] [id number] [place] [address] May, [facility] [address] [id number] [place] [address] May, 2011 [facility] [id number] [place] [address] May, [facility] [address] [id number] [place] [address] May, [facility] [address] [id number] [place] [address] May, [facility] [address] [id number] [place] [address] May, [facility] [address] [id number] [place] [address] May, [facility] [address] [id number] [place] [address] Apr, [facility] [address] [id number] [place] [address] Apr, [facility] [address] [id number] [place] [address] Apr, [facility] [address] [id number] [place] [address] Apr, [facility] [address] [id number] [place] [address] Apr, [facility] [address] [id number] [place] [address] Apr, [facility] [address] [id number] [place] [address] 05 Apr, 2012 [facility] [address] [id number] [place] [address] Apr, [facility] [address] [id number] [place] [address] Mar, [facility] [address] [id number] [place] [address] Mar, [facility] [address] [id number] [place] [address] 16 Mar, 2012 [facility] [address] [id number] [place] [address] Mar, [facility] [address] [id number] [place] [address] Mar, [facility] [address] [place] [id number] Mar, [facility] [address] [id number] [place] [address] Mar, [facility] [address] [id number] [place] [address] Feb, [facility] [address] [id number] [place] [address] Feb, [facility] [address] [id number] [place] [address] Feb, [facility] [address] [id number] [place] [address] Feb, [facility] [address] [facility] [id number] [place] [address] Feb, [facility] [address] [id number] [place] [address] Feb, [facility] [address] [id number] [place] [address] Jan, [facility] [address] [id number] [place] [address] Jan, [facility] [address] [id number] [place] [address] Jan, [facility] [address] [id number] [place] [address] Jan, [facility] [address] [id number] [place] [address] Jan, [facility] [address] [id number] [place] [address] Jan, [facility] [address] [id number] [place] [address] Jan, [facility] [address] [id number] [place] [address] December, [facility] [address] [id number] [place] [address] December, [facility] [address] [id number] [place] [address] December, [facility] [address] [id number] [place] [address] 30 Nov, 2011 [facility] [address] [facility] [id number] [facility] [place] [address] 26 Nov, 2011 [facility] [address] [id number] [place] [address] Nov, [facility] [address] [id number] [place] [address] Nov, [facility] [address] [id number] [place] [address] 20 Nov, 2011 [facility] [address] [id number] [place] [address] 18 Nov, 2011 [facility] [address] [id number] [place] [address] Nov, [facility] [address] [id number] [place] [address] Nov, [facility] [address] [id number] [place] [address] Oct, [facility] [address] [id number] [place] [address] Oct, [facility] [address] [id number] [place] [address] Oct, [facility] [address] [id number] [place] [address] Oct, [facility] [address] [id number] [place] [address] Sep, [facility] [address] [id number] [place] [address] Sep, [facility] [address] [id number] [place] [address] Sep, [facility] [address] [id number] [place] [address] Aug, [facility] [address] [id number] [place] [address] Aug, [facility] [address] [id number] [place] [address] Aug, [facility] [address] [id number] [place] [address] Aug, [facility] [address] [id number] [place] [address] 15 Jul, 2011 [facility] [id number] [place] [address] 15 Jul, 2011 [facility] [address] [id number] [place] [address] 15 Jul, 2011 [facility] [address] [id number] [place] [address] 30 Jun, 2011 [facility] [address] [id number] [place] [address] Jun, [facility] [id number] [place] [address] 15 Jun, 2011 [facility] [address] [id number] [place] [address] 14 Jun, 2011 [facility] [address] [id number] [place] [address] 14 Jun, 2011 [facility] [address] [id number] [place] [address] 14 Jun, 2011 [facility] [address] [id number] [place] [address] 31 May, 2011 [facility] [address] [id number] [place] [address] 31 May, 2011 [facility] [address] [id number] [place] [address] 28 May, 2011 [facility] [id number] [place] [address] 12 Apr, 2011 [facility] [address] [id number] [place] [address] Mar, [facility] [address] [id number] [place] [address] Aug, IMMUNIZATIONS No Known Immunizations SOCIAL HISTORY Never Assessed REASON FOR VISIT PLAN OF CARE VITAL SIGNS MEDICATIONS Unknown Medications RESULTS No Results PROCEDURES No Known procedures INSTRUCTIONS MEDICATIONS ADMINISTERED No Known Medications MEDICAL (GENERAL) HISTORY Type Description Date Medical History type II diabetes-dx in 1995 Medical History stroke-12/2011-[facility] Medical History cardiovascular disorder-CAD Medical History hyperlipidemia Medical History hypertension Medical History Diabetes with renal manifest ations, type II or unspecified type, uncontrolled Medical History 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 Discharged 06/27/17 06/25/17
--- OUTSIDE RECORDS SUMMARY | 2019-10-21 00:55 | XMS REPORT ---
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 Name Role Phone ALBIN RENAE Unavailable PROBLEMS Type Condition ICD9-CM Code XZZ44-EH Code Onset Dates Condition S tatus SNOMED Code Problem Diabetic polyneuropathy associated with type 2 d iabetes mellitus E11.42 Active 71217768 Problem Anxiety F41.9 Active 85645469 Problem penitentiary 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 Active 821541208 Problem Left ventricular enlargement I51.7 A ctive 486074215 Problem Ulcer of right lower leg, with unspecified severity L97.919 Active 369029304 Problem Allergic rhinitis J30.9 Active 61 171201 Problem Dyspepsia R10.13 Active 902332188 Problem Non-healing skin lesion L98.9 Active 47442628 Problem Skin infection L08.9 Active 43721 5000 Problem Stress incontinence in female N39.3 Active 23540504 Problem Type 2 diabetes mellitus with other skin ulcer E11 .622 Active 37153345 Problem Cough R05 Active 625292641 Problem Foot swelling M79.89 Active 446570 003 Problem Atrial enlargement, left I51.7 Activ e [id number] Problem Pulmonary HTN I27.2 Active 068271 07 Problem Neuropathy G62.9 Active 636546476 Problem Stress incontinence of urine N39.3 A ctive 80138391 Problem Chronic pain G89.29 Active 0168803 1 Problem 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 Active 744400304 Problem CAD (coronary artery disease) I25.10 Active 49537286 Problem Essential hypertension I10 Active 65671956 Problem Mixed hyperlipidemia E78.2 Active 284507615 Problem Type 2 diabetes mellitus with other circulatory compli cations E11.59 Active 99698094 Problem Urinary incontinence R32 Active 592950451 Problem Moderate episode of recurrent major depressive disorder F33.1 Active 817797193 ALLERGIES No Information ENCOUNTERS Encounter Location Date Diagnosis [facility] [address] [place] [address] 15 Nov, 2019 [facility] [address] [place] [address] Aug, [facility] [address] [place] [address] 15 Aug, 2019 Encounter for removal of sut ures Z48.02 ; Wheezing R06.2 ; Type 2 diabetes mellitus with other circulatory complications E11.59 ; Allergic rhinitis J30.9 ; Essential hypertension I10 ; Infection of toe L08.9 and Diabetic polyneuropathy associated with type 2 diabetes mellitus E11.42 [facility] [address] [place] [address] 15 Aug, 2019 Right knee buckling M25.361 [address] [place] [address] 14 Aug, 2019 Type 2 diabetes mellitus wit h other circulatory complications E11.59 [facility] [address] [place] [address] 18 Jul, 2019 [facility] [address] [place] [address] Jul, [address] [place] [address] Jul, Essential hypertension I10 [facility] [address] [place] [address] Jul, [address] [place] [address] Jun, Stomach pain R10.9 [facility] [address] [place] [address] Jun, Type 2 diabetes mellitus wit h other circulatory complications E11.59 ; Mixed hyperlipidemia E78.2 and Essential hypertension I10 [facility] [address] [place] [address] Jun, [address] [place] [address] Jun, [address] [place] [address] Jun, Oxygen decrease R09.02 ; Ess ential hypertension I10 and Stomach pain R10.[address] [place] [address] Jun, Type 2 diabetes mellitus wit h other circulatory complications E11.[address] [place] [address] Jun, penitentiary current use of ins ulin Z79.[address] [place] [address] Jun, [address] [place] [address] Jun, [address] [place] [address] Jun, [address] [place] [address] Jun, Bronchitis J40 ; Wheezing R0 6.2 and History of falling Z91.[address] [place] [address] Jun, [address] [place] [address] May, [address] [place] [address] May, Diabetic polyneuropathy asso ciated with type 2 diabetes mellitus E11.[address] [place] [address] May, Diabetic polyneuropathy asso ciated with type 2 diabetes mellitus E11.[address] [place] [address] Apr, [address] [place] [address] Apr, Essential hypertension I10 ; Type 2 diabetes mellitus with other circulatory complications E11.59 and Mixed hyperlipidemia E78.[address] [place] [address] Apr, Mixed hyperlipidemia E78.2 ; Type 2 diabetes mellitus with other circulatory complications E11.59 ; Essential hypertension I10 and Pain in joints of right hand M25.541 [address] [address] [place] [address] Apr, Immunization counseling Z71. 89 ; penitentiary 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 ; Type 2 diabetes mellitus with other circulatory complications E11.59 ; Food insecurity Z59.4 and Low-level of literacy Z55.0 [place] [address] [place] [address] 05 Apr, 2019 Urinary pain R30.9 ; Hematur ia, unspecified type R31.9 ; Urinary tract infection without hematuria, site unspecified N39.0 ; Stress incontinence of urine N39.3 ; Essential hypertension I10 ; Mixed hyperlipidemia E78.2 ; Type 2 diabetes mellitus with other circulatory complications E11.59 and Pain in joints of right hand M25.[address] [place] [address] Apr, Diabetic polyneuropathy asso ciated with type 2 diabetes mellitus E11.[address] [place] [address] Mar, [address] [place] [address] Mar, [address] [address] [place] [address] Mar, [address] [place] [address] Mar, [address] [place] [address] Mar, [address] [place] [address] Mar, Diabetic polyneuropathy asso ciated with type 2 diabetes mellitus E11.42 [facility] [address] [place] [address] Feb, Type 2 diabetes mellitus wit h other circulatory complications E11.59 [facility] [address] [place] [address] Feb, Essential hypertension I10 [address] [place] [address] Feb, Diabetic polyneuropathy asso ciated with type 2 diabetes mellitus E11.42 [address] [place] [address] Feb, Type 2 diabetes mellitus wit h other circulatory complications E11.59 [facility] [address] [place] [address] Feb, [facility] [address] [place] [address] Feb, Moderate episode of recurren t major depressive disorder F33.1 [facility] [address] [place] [address] Feb, Wheezing R06.2 and Cough R05 [facility] [address] [place] [address] Jan, Diabetic polyneuropathy asso ciated with type 2 diabetes mellitus E11.42 [facility] [address] [place] [address] Jan, [facility] [address] [place] [address] Jan, Wheezing R06.2 and Cough R05 [facility] [address] [place] [address] Jan, Cough R05 ; Bronchitis J40 ; Wheezing R06.2 ; Unspecified superficial injury of left lesser toe(s), subsequent encounter S90.935D and Type 2 diabetes mellitus with other circulatory complications E11 .59 [facility] [address] [place] [address] Jan, [address] [place] [address] December, [facility] [address] [place] [address] December, [address] [place] [address] December, Encounter for removal of sut ures Z48.02 [facility] [address] [place] [address] December, Diabetic polyneuropathy asso ciated with type 2 diabetes mellitus E11.42 [facility] [address] [place] [address] 16 Dec, 2018 [facility] [address] [place] [address] December, Infection of toe L08.9 [facility] [address] [place] [address] December, [place] [address] [address] [place] [address] December, Diabetic polyneuropathy associated with type 2 diabetes mellitus E11.42 ; roasterman 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 ; Urinary incontinence R32 and Type 2 diabetes mellitus with other circulatory complications E11.59 [place] [address] [address] December, Essential hypertension I10 ; Type 2 diab etes mellitus with other circulatory complications E11.59 and Dizziness R42 [place] [address] [address] December, Dizziness R42 ; Essential hypertension I 10 and Type 2 diabetes mellitus with other circulatory complications E11.59 [address] [place] [address] Nov, Breast lump N63.[address] [place] [address] Nov, Breast lump N63.[address] [place] [address] Nov, Breast lump N63.[address] [place] [address] Nov, [facility] [address] [place] [address] Nov, Mixed hyperlipidemia E78.2 ; Essential hypertension I10 and penitentiary current use of insulin Z79.[address] [place] [address] Nov, Essential hypertension I10 ; Breast cancer screening Z12.31 ; penitentiary current use of insulin Z79.4 ; Mixed hyperlipidemia E78.2 ; Dysuria R30.0 and Type 2 diabetes mellitus with other circulatory complications E11.59 [place] [address] [address] May, [place] [address] [address] Apr, [place] [address] [address] Apr, Essential hypertension I10 and Diabetic polyneuropathy associated with type 2 diabetes mellitus E11.42 [place] [address] [address] Mar, [place] [address] [address] Feb, Onychomycosis B35.1 ; Neuropathy G62.9 a nd Diabetic polyneuropathy associated with type 2 diabetes mellitus E11.42 [place] [address] [address] Feb, [place] [address] [address] December, [place] [address] [address] December, Herpes zoster without complication B02.9 ; Onychia of toe of left foot L03.032 ; Ingrowing toenail with infection L60.0 and Diabetic polyneuropathy associated with type 2 diabetes mellitus E11.42 [place] [address] [address] December, [place] [address] [address] Nov, [place] [address] [address] Oct, Diabetic polyneuropathy associated with type 2 diabetes mellitus E11.42 [place] [address] [address] Oct, Essential hypertension I10 and Diabetic polyneuropathy associated with type 2 diabetes mellitus E11.42 [place] [address] [address] Sep, Diabetic polyneuropathy associated with type 2 diabetes mellitus E11.42 ; Type 2 diabetes mellitus with other skin ulcer E11.622 ; Chronic pain G89.29 ; Anxiety F41.9 ; Essential hypertension I10 ; Hypoxia R09.02 ; Atrial enlargement, left I51.7 and Left ventricular enlargement I51.7 [place] [address] [address] Sep, [place] [address] [address] Aug, [place] [address] [address] Jul, [place] [address] [address] Jul, [place] [address] [address] Jul, CAD (coronary artery disease) I25.10 ; E ssential hypertension I10 ; Pulmonary HTN I27.2 ; Atrial enlargement, left I51.7 and Left ventricular enlargement I51.7 [place] [address] [address] Jun, [place] [address] [address] Jun, [place] [address] [address] Jun, [place] [address] [address] Jun, [place] [address] [address] Jun, Diabetic polyneuropathy associated with type 2 diabetes mellitus E11.42 ; Type 2 diabetes mellitus with other skin ulcer E11.622 ; Chronic pain G89.29 ; Anxiety F41.9 ; Essential hypertension I10 ; Ulcer of right lower leg, with unspecified severity L97.919 ; Pulmonary HTN I27.2 ; Hypoxia R09.02 ; Atrial enlargement, left I51.7 and Left ventricular enlargement I51.7 [place] [address] [address] May, [place] [address] [address] Apr, Diabetic polyneuropathy associated with type 2 diabetes mellitus E11.42 ; Type 2 diabetes mellitus with other skin ulcer E11.622 ; Chronic pain G89.29 ; Anxiety F41.9 ; Cough R05 ; Essential hypertension I10 and Ulcer of right lower leg, with unspecified severity L97.919 [place] [address] [address] Mar, Diabetic polyneuropathy associated with type 2 diabetes mellitus E11.42 ; Chronic pain G89.29 ; Anxiety F41.9 ; Type 2 diabetes mellitus with other skin ulcer E11.622 ; Cough R05 ; Essential hypertension I10 and Ulcer of right lower leg, with unspecified severity L97.919 [place] [address] [address] Feb, [facility] [address] [address] Feb, Diabetic polyneuropathy associated with type 2 diabetes mellitus E11.42 ; Chronic pain G89.29 ; Anxiety F41.9 ; Type 2 diabetes mellitus with other skin ulcer E11.622 ; Cough R05 and Essential hypertension I10 [facility] [address] [address] Jan, Chronic pain G89.29 ; Anxiety F41.9 and Foot swelling M79.89 [place] [address] [address] December, Chronic pain G89.29 ; Anxiety F41.9 and Stress incontinence in female N39.3 [place] [address] [address] December, [facility] [address] [address] Nov, [facility] [address] [address] Nov, [place] [address] [address] Nov, [facility] [address] [address] Nov, Chronic pain G89.29 ; Anxiety F41.9 ; No n-healing skin lesion L98.9 and Type 2 diabetes mellitus with other skin ulcer E11.622 [facility] [address] [address] Nov, Diabetic polyneuropathy associated with type 2 diabetes mellitus E11.42 [facility] [address] [address] Nov, [facility] [address] [address] Nov, [facility] [address] [address] Nov, [place] [address] [address] Nov, [place] [address] [address] Nov, Diabetic polyneuropathy associated with type 2 diabetes mellitus E11.42 [place] [address] [address] Oct, Diabetic polyneuropathy associated with type 2 diabetes mellitus E11.42 ; Essential hypertension I10 ; Chronic pain G89.29 ; Anxiety F41.9 and Skin infection L08.9 [place] [address] [address] Oct, [place] [address] [address] Sep, [place] [address] [address] Sep, Diabetic polyneuropathy associated with type 2 diabetes mellitus E11.42 ; Chronic pain G89.29 ; Anxiety F41.9 and Allergic rhinitis J30.9 [place] [address] [address] Aug, Diabetic polyneuropathy associated with type 2 diabetes mellitus E11.42 ; Chronic pain G89.29 ; Anxiety F41.9 and Allergic rhinitis J30.9 [place] [address] [address] Jul, [place] [address] [address] Jul, Diabetic polyneuropathy associated with type 2 diabetes mellitus E11.42 ; Dyspepsia R10.13 ; Essential hypertension I10 ; roasterman current use of insulin Z79.4 ; CAD (coronary artery disease) I25.10 ; Chronic pain G89.29 ; Anxiety F41.9 ; Dysuria R30.0 and Pain of left lower leg M79.662 [place] [address] [address] Jul, [facility] [address] [address] Jun, Diabetic polyneuropathy associated with type 2 diabetes mellitus E11.42 and roasterman current use of insulin Z79.4 [facility] [address] [address] Jun, [facility] [address] [address] Jun, Neuropathy G62.9 ; Arthritis M19.90 ; Le g cramps R25.2 and Anxiety F41.9 [facility] [address] [address] May, [facility] [address] [address] May, [facility] [address] [address] May, Diabetic polyneuropathy associated with type 2 diabetes mellitus E11.42 [facility] [address] [address] May, [facility] [address] [address] 29 Apr, 2015 [facility] [address] [address] Apr, [facility] [address] [address] 17 Apr, 2015 [facility] [address] [address] 14 Apr, 2015 [facility] [address] [address] 10 Apr, 2015 [facility] [address] [address] 10 Apr, 2015 [facility] [address] [address] Apr, 2015 Diabetes with renal manifestations, type II or unspecified type, uncontrolled 250.42 ; Coronary atherosclerosis of unspecified type of vessel, squaxin or graft 414.00 ; Polyneuropathy in diabetes 357.2 ; Hypertension 401.9 ; Anxiety 300.00 ; GERD (gastroesophageal reflux disease) 530.81 and Type 2 diabetes mellitus with pressure callus 250.80 [facility] [address] [address] Mar, [facility] [address] [address] Mar, [facility] [address] [address] Mar, [facility] [address] [address] Mar, [facility] [address] [address] Mar, Diabetes with renal manifestations, type II or unspecified type, uncontrolled 250.42 ; Coronary atherosclerosis of unspecified type of vessel, squaxin or graft 414.00 ; Polyneuropathy in diabetes 357.2 ; Hypertension 401.9 and Anxiety 300.00 [facility] [address] [address] Mar, Routine gynecological examination V72.31 ; Breast cancer screening V76.10 ; Recurrent urinary tract infection 599.0 ; Mastodynia 611.71 and Tobacco abuse 305.1 [facility] [address] [address] Feb, [facility] [address] [address] Jan, [facility] [address] [address] Jan, [facility] [address] [address] Jan, [facility] [address] [address] Jan, [facility] [address] [place] [address] December, [facility] [address] [facility] [id number] [place] [address] December, [facility] [address] [facility] [id number] [place] [address] 28 Nov, 2014 [facility] [address] [id number] [place] [address] 14 Nov, 2014 [facility] [address] [facility] [id number] [place] [address] 13 Nov, 2014 [facility] [address] [facility] [id number] [place] [address] 19 Oct, 2014 [facility] [address] [id number] [place] [address] 19 Oct, 2014 [facility] [address] [id number] [place] [address] 16 Oct, 2014 [facility] [address] [id number] [place] [address] 16 Oct, 2014 [facility] [address] [facility] [id number] [place] [address] 16 Oct, 2014 [facility] [address] [id number] [place] [address] 16 Oct, 2014 [facility] [address] [id number] [place] [address] 16 Oct, 2014 [facility] [address] [id number] [place] [address] 16 Oct, 2014 [facility] [address] [facility] [id number] [place] [address] 16 Oct, 2014 [facility] [address] [id number] [place] [address] 16 Oct, 2014 [facility] [address] [id number] [place] [address] 16 Oct, 2014 [facility] [address] [id number] [place] [address] 16 Oct, 2014 [facility] [address] [id number] [place] [address] Oct, 2014 [facility] [address] [id number] [place] [address] Oct, 2014 [facility] [address] [id number] [place] [address] Oct, [facility] [address] [id number] [place] [address] Oct, [facility] [address] [id number] [place] [address] Oct, [facility] [address] [id number] [place] [address] Oct, [facility] [address] [id number] [place] [address] Sep, 2014 [facility] [address] [id number] [place] [address] Sep, 2014 [facility] [address] [id number] [place] [address] Sep, 2014 [facility] [address] [id number] [place] [address] Sep, 2014 [facility] [address] [id number] [place] [address] Sep, 2014 [facility] [address] [id number] [place] [address] Sep, 2014 [facility] [address] [id number] [place] [address] Sep, 2014 [facility] [address] [id number] [place] [address] Sep, 2014 [facility] [address] [id number] [place] [address] Sep, 2014 [facility] [address] [id number] [place] [address] Sep, 2014 [facility] [address] [id number] [place] [address] Sep, 2014 [facility] [address] [id number] [place] [address] Sep, [facility] [address] [id number] [place] [address] Sep, [facility] [address] [id number] [place] [address] Sep, [facility] [address] [id number] [place] [address] Sep, [facility] [address] [id number] [place] [address] Aug, [facility] [address] [id number] [place] [address] Aug, [facility] [address] [id number] [place] [address] Aug, [facility] [address] [id number] [place] [address] Aug, [facility] [address] [id number] [place] [address] Aug, [facility] [address] [id number] [place] [address] Aug, [facility] [address] [id number] [place] [address] Aug, [facility] [address] [id number] [place] [address] Aug, [facility] [address] [id number] [place] [address] Aug, [facility] [id number] [place] [address] Aug, [facility] [address] [id number] [place] [address] Aug, [facility] [address] [id number] [place] [address] Aug, [facility] [address] [id number] [place] [address] Aug, [facility] [address] [id number] [place] [address] Jul, [facility] [address] [id number] [place] [address] Jul, [facility] [address] [id number] [place] [address] Jul, [facility] [address] [id number] [place] [address] Jul, [facility] [address] [id number] [place] [address] Jul, [facility] [address] [id number] [place] [address] Jul, [facility] [address] [id number] [place] [address] Jul, [facility] [address] [id number] [place] [address] Jul, [facility] [address] [id number] [place] [address] Jun, [facility] [address] [id number] [place] [address] Jun, [facility] [address] [id number] [place] [address] Jun, [facility] [address] [id number] [place] [address] Jun, [facility] [address] [id number] [place] [address] Jun, [facility] [address] [id number] [place] [address] Jun, [facility] [address] [id number] [place] [address] Jun, [facility] [address] [id number] [place] [address] Jun, [facility] [address] [facility] [id number] [place] [address] Jun, [facility] [address] [id number] [place] [address] Jun, [facility] [address] [id number] [place] [address] Jun, [facility] [address] [id number] [place] [address] Jun, [facility] [address] [id number] [place] [address] Jun, [facility] [address] [id number] [place] [address] Jun, [facility] [address] [id number] [place] [address] Jun, [facility] [address] [id number] [place] [address] Jun, [facility] [address] [id number] [place] [address] May, [facility] [address] [id number] [place] [address] May, [facility] [address] [id number] [place] [address] May, [facility] [address] [id number] [place] [address] May, [facility] [address] [id number] [place] [address] May, [facility] [address] [id number] [place] [address] May, [facility] [address] [id number] [place] [address] May, [facility] [address] [id number] [place] [address] May, [facility] [address] [facility] [id number] [place] [address] May, [facility] [address] [id number] [place] [address] Apr, [facility] [address] [facility] [id number] [place] [address] Apr, [facility] [address] [id number] [place] [address] Apr, [facility] [address] [facility] [id number] [place] [address] Apr, [facility] [address] [facility] [id number] [place] [address] Mar, [facility] [address] [id number] [place] [address] Mar, [facility] [address] [id number] [place] [address] Mar, [facility] [address] [id number] [place] [address] Mar, [facility] [address] [id number] [place] [address] Feb, [facility] [address] [id number] [place] [address] Feb, [facility] [address] [id number] [place] [address] Jan, [facility] [address] [id number] [place] [address] Jan, [facility] [address] [facility] [id number] [place] [address] Jan, [facility] [address] [id number] [place] [address] Jan, [facility] [address] [id number] [place] [address] Jan, [facility] [address] [id number] [place] [address] Jan, [facility] [address] [id number] [place] [address] Jan, [facility] [address] [id number] [place] [address] Jan, [facility] [address] [id number] [place] [address] Jan, [facility] [address] [id number] [place] [address] Jan, [facility] [address] [facility] [id number] [place] [address] Jan, [facility] [address] [id number] [place] [address] Jan, [facility] [address] [id number] [place] [address] Jan, [facility] [address] [id number] [place] [address] December, [facility] [address] [id number] [place] [address] December, [facility] [address] [id number] [place] [address] December, [facility] [address] [id number] [place] [address] December, [facility] [address] [id number] [place] [address] December, [facility] [address] [id number] [place] [address] Nov, [facility] [address] [id number] [place] [address] Nov, [facility] [address] [id number] [place] [address] Nov, [facility] [address] [id number] [place] [address] Nov, [facility] [address] [id number] [place] [address] Nov, [facility] [address] [facility] [id number] [place] [address] Nov, [facility] [address] [id number] [place] [address] Nov, [facility] [address] [id number] [place] [address] Nov, [facility] [address] [id number] [place] [address] Nov, [facility] [address] [id number] [place] [address] Nov, [facility] [address] [id number] [place] [address] Jun, [facility] [address] [id number] [place] [address] Jun, [facility] [address] [id number] [place] [address] May, 2011 [facility] [address] [id number] [place] [address] May, 2011 [facility] [address] [id number] [place] [address] May, 2011 [facility] [address] [id number] [place] [address] May, 2011 [facility] [address] [id number] [place] [address] May, 2011 [facility] [address] [id number] [place] [address] May, 2011 [facility] [address] [id number] [place] [address] May, 2011 [facility] [address] [id number] [place] [address] May, 2011 [facility] [address] [id number] [place] [address] May, 2011 [facility] [address] [facility] [id number] [place] [address] 25 Apr, 2011 [facility] [address] [id number] [place] [address] 25 Apr, 2011 [facility] [address] [id number] [place] [address] 25 Apr, 2012 [facility] [address] [id number] [place] [address] 21 Apr, 2011 [facility] [address] [id number] [place] [address] 20 Apr, 2011 [facility] [address] [id number] [place] [address] 19 Apr, 2012 [facility] [address] [id number] [place] [address] 05 Apr, 2012 [facility] [address] [id number] [place] [address] 04 Apr, 2012 [facility] [address] [id number] [place] [address] Mar, [facility] [address] [id number] [place] [address] Mar, [facility] [address] [id number] [place] [address] 16 Mar, 2012 [facility] [address] [id number] [place] [address] Mar, [facility] [address] [id number] [place] [address] Mar, [facility] [address] [place] [id number] Mar, [facility] [address] [id number] [place] [address] Mar, [facility] [address] [id number] [place] [address] Feb, [facility] [address] [id number] [place] [address] Feb, [facility] [address] [id number] [place] [address] Feb, [facility] [address] [id number] [place] [address] Feb, [facility] [address] [id number] [place] [address] Feb, [facility] [address] [id number] [place] [address] Feb, [facility] [address] [id number] [place] [address] Jan, [facility] [address] [id number] [place] [address] Jan, [facility] [address] [id number] [place] [address] Jan, [facility] [address] [id number] [place] [address] Jan, [facility] [address] [id number] [place] [address] Jan, [facility] [address] [id number] [place] [address] Jan, [facility] [address] [id number] [place] [address] Jan, [facility] [address] [id number] [place] [address] December, [facility] [address] [id number] [place] [address] December, [facility] [address] [id number] [place] [address] December, [facility] [address] [id number] [place] [address] Nov, [facility] [address] [id number] [place] [address] Nov, [facility] [address] [id number] [place] [address] Nov, [facility] [address] [facility] [id number] [place] [address] Nov, [facility] [address] [facility] [id number] [facility] [place] [address] Nov, [facility] [address] [id number] [place] [address] 18 Nov, 2011 [facility] [address] [id number] [place] [address] 17 Nov, 2011 [facility] [address] [facility] [id number] [place] [address] Nov, [facility] [address] [id number] [place] [address] Oct, [facility] [address] [id number] [place] [address] Oct, [facility] [address] [id number] [place] [address] Oct, [facility] [address] [id number] [place] [address] Oct, [facility] [address] [id number] [place] [address] Sep, [facility] [address] [id number] [place] [address] Sep, [facility] [address] [id number] [place] [address] Sep, [facility] [address] [id number] [place] [address] Aug, [facility] [address] [id number] [place] [address] Aug, [facility] [address] [id number] [place] [address] Aug, [facility] [address] [id number] [place] [address] Aug, [facility] [id number] [place] [address] 15 Jul, 2011 [facility] [id number] [place] [address] 15 Jul, 2011 [facility] [address] [id number] [place] [address] 15 Jul, 2011 [facility] [id number] [place] [address] Jun, [facility] [address] [id number] [place] [address] Jun, [facility] [address] [id number] [place] [address] Jun, [facility] [address] [id number] [place] [address] Jun, [facility] [address] [id number] [place] [address] Jun, [facility] [address] [address] Jun, [facility] [address] [id number] [place] [address] May, [facility] [address] [address] May, [facility] [address] [id number] [place] [address] May, [facility] [id number] [place] [address] Apr, [facility] [address] [id number] [place] [address] Mar, [facility] [address] [address] Aug, IMMUNIZATIONS No Known Immunizations SOCIAL HISTORY Never Assessed REASON FOR VISIT PLAN OF CARE VITAL SIGNS MEDICATIONS Unknown Medications RESULTS No Results PROCEDURES Procedure Date Ordered Result Body Site GLYCATED HEMOGLOBIN TEST March 01, 2014 INSTRUCTIONS MEDICATIONS ADMINISTERED No Known Medications [...] Coronary atherosclerosis of unspecified type of vessel, squaxin or graft Surgical History partial hysterectomy 1991 Surgical History heart cath 2004, 2011 Hospitalization History [place] 2004 Hospitalization History [facility] for pancreatitis 11/2010 [facility]ization History [facility] for a [facility] 12/2011 Hospitalization History farrah infection-Shira Colby 05/31 16 Hospitalization History [facility]- Heart failure , uncontrolled Hyperglycemia. Discharged 06/27/17 06/25/17
--- OUTSIDE RECORDS SUMMARY | 2019-10-21 01:09 | XMS REPORT | Continuity of Care Document ---
Author Organization Unknown Address Unknown Phone Unavailable Allergies Active Description Code Type Severity Reaction Onset Reported/Identified Relationship to Patient Clinical Status Yes aspirin Drug Allergy N/A N/A 08/30/2010 Yes morphine Drug Allergy N/A N/A 08/30/2010 Yes aspirin Drug Allergy 08/30/2010 Yes morphine Drug Allergy 08/30/2010 Yes hydromorphone HCl [id number] Drug Allergy Mild VOMITING 01/06/2011 Yes Dilaudid Drug Allergy N/A N/A 03/02/2011 Yes Dilaudid Drug Allergy 03/02/2011 Yes Influenza Virus Vaccine Drug Allergy N/A N/A 11/28/2011 Yes Influenza Virus Vaccine Drug Allergy 11/28/2011 Yes amlodipine 5 mg Tablet Drug Allergy N/A N/A 03/12/2012 Yes amlodipine 5 mg Tablet Drug Allergy 03/12/2012 Yes metformin 500 mg tablet,ER myron.retentio n 24 hr Drug Allergy N/A N/A Yes aspirin [id number] Drug Allergy Unknown N/A 03/25/2014 Yes morphine [id number] Drug Allergy Unknown N/A 03/25/2014 Yes FLU VACCINE FLU VACCINE Unknown N/A 07/23/2014 Yes influenza virus vacc,specific [id number] Drug Allergy Unknown N/A 07/23/2014 Yes influenza virus vaccine, specific [id number] Drug Allergy Unknown N/A 014 Yes influenza virus vaccine, specific [id number] Drug Allergy Moderate rash 2018 Yes metformin [id number] Drug Allergy Moderate joint pain 09/23/2018 Yes aspirin [id number] Drug Allergy Unknown convulsions 09/23/2018 Yes sulfamethoxazole [id number] Drug Allergy Severe JOINTS HURT 12/21/2018 Yes trimethoprim [id number] Drug Allergy Severe JOINTS HURT 12/21/2018 Medications There is no data. Problems Date Dx Coded Attending Type Code Diagnosis Diagnosed By 08/30/2010 250.02 ALEX BETES II UNCONTROLLED 08/30/2010 401.1 ESSE NTIAL HYPERTENSION BENIGN 08/30/2010 CHARLENE HAMMERER TAB, AHSAN T 250.02 DIABETES II UNCONTROLLED 08/30/2010 CHARLENE PASTORNAHSAN T 40 1.1 ESSENTIAL HYPERTENSION BENIGN 08/30/2010 PAMELA HAMMERER TAB, MALIK R 250.02 DIABETES II UNCONTROLLED 08/30/2010 PAMELA HAMMERER TAB, MALIK R 401.1 ESSENTIAL HYPERTENSION BENIGN 08/30/2010 BAH DO, COCO K 250.02 DIABETES II UNCONTROLLED 08/30/2010 BAH DO, COCO K 401.1 ESSENTIAL HYPERTENSION BENIGN 08/30/2010 BAH DO, COCO K 250.02 DIABETES II UNCONTROLLED 08/30/2010 BAH DO, COCO K 401.1 ESSENTIAL HYPERTENSION BENIGN 08/30/2010 MADL HAMMERER TAB, ALBIN L 250 .02 DIABETES II UNCONTROLLED 08/30/2010 MADL HAMMERER TAB, ALBIN L 401 .1 ESSENTIAL HYPERTENSION BENIGN 08/30/2010 MADL HAMMERER TAB, ALBIN L 250 .02 DIABETES II UNCONTROLLED 08/30/2010 MADL HAMMERER TAB, ALBIN L 401 .1 ESSENTIAL HYPERTENSION BENIGN 08/30/2010 BAH DO, COCO K 250.02 DIABETES II UNCONTROLLED 08/30/2010 BAH DO, COCO K 401.1 ESSENTIAL HYPERTENSION BENIGN 08/30/2010 BAH DO, COCO K 250.02 DIABETES II UNCONTROLLED 08/30/2010 BAH DO, COCO K 401.1 ESSENTIAL HYPERTENSION BENIGN 08/30/2010 FAITH MALIN, DEANDRE N 250 .02 DIABETES II UNCONTROLLED 08/30/2010 FAITH MALIN, DEANDRE N 401 .1 ESSENTIAL HYPERTENSION BENIGN 08/30/2010 BAH DO, COCO K 250.02 DIABETES II UNCONTROLLED 08/30/2010 BAH DO, COCO K 401.1 ESSENTIAL HYPERTENSION BENIGN 08/30/2010 MADL HAMMERER TAB, ALBIN L 250 .02 DIABETES II UNCONTROLLED 08/30/2010 MADL HAMMERER TAB, ALBIN L 401 .1 ESSENTIAL HYPERTENSION BENIGN 08/30/2010 BAH DO, COCO K 250.02 DIABETES II UNCONTROLLED 08/30/2010 BAH DO, COCO K 401.1 ESSENTIAL HYPERTENSION BENIGN 08/30/2010 DEANDRE CUEVAS MD N 250 .02 DIABETES II UNCONTROLLED 08/30/2010 DEANDRE CUEVAS MD N 401 .1 ESSENTIAL HYPERTENSION BENIGN 08/30/2010 MADL HAMMERER TAB, ALBIN L 250 .02 DIABETES II UNCONTROLLED 08/30/2010 MADL HAMMERER TAB, ALBIN L 401 .1 ESSENTIAL HYPERTENSION BENIGN 08/30/2010 MADL HAMMERER TAB, ALBIN L 250 .02 DIABETES II UNCONTROLLED 08/30/2010 MADL HAMMERER TAB, ALBIN L 401 .1 ESSENTIAL HYPERTENSION BENIGN 08/30/2010 BAH DO, COCO K 250.02 DIABETES II UNCONTROLLED 08/30/2010 BAH DO, COCO K 401.1 ESSENTIAL HYPERTENSION BENIGN 09/18/2010 357.9 NEUR OPATHY UNSP 09/18/2010 AHSAN CHANG APRN 35 7.9 NEUROPATHY UNSP 09/18/2010 PAMELA RIVERA MALIK R 357.9 NEUROPATHY UNSP 09/18/2010 BAH DO, COCO K 357.9 NEUROPATHY UNSP 09/18/2010 BAH DO, COCO K 357.9 NEUROPATHY UNSP 09/18/2010 [facility] AL[facility] L 357 .9 NEUROPATHY UNSP 09/18/2010 [facility] HAMMERER TABTONY MayberryNYA L 357 .9 NEUROPATHY UNSP 09/18/2010 BAH DO, COCO K 357.9 NEUROPATHY UNSP 09/18/2010 BAH DO, COCO K 357.9 NEUROPATHY UNSP 09/18/2010 DEANDRE CUEVAS MD N 357 .9 NEUROPATHY UNSP 09/18/2010 BAH DO, COCO K 357.9 NEUROPATHY UNSP 09/18/2010 MADL HAMMERER TAB, ALBIN L 357 .9 NEUROPATHY UNSP 09/18/2010 BAH DO, COCO K 357.9 NEUROPATHY UNSP 09/18/2010 DEANDRE CUEVAS MD N 357 .9 NEUROPATHY UNSP 09/18/2010 [facility] HAMMERER TAB, ALBIN L 357 .9 NEUROPATHY UNSP 09/18/2010 [facility] HAMMERER TAB, ALBIN L 357 .9 NEUROPATHY UNSP 09/18/2010 BAH DO, COCO K 357.9 NEUROPATHY UNSP 10/02/2010 112.1 CAND IDIASIS VAGINAL 10/02/2010 611.71 MAS TODYNIA 10/02/2010 611.72 LUM P OR MASS IN BREAST 10/02/2010 V72.31 SPECIAL POPULATION PARAPROFESSIONAL EXAM, ROUTINE 10/02/2010 AHSAN CHANG APRN 11 2.1 CANDIDIASIS VAGINAL 10/02/2010 AHSAN CHANG APRN 611.71 MASTODYNIA 10/02/2010 AHSAN CHANG APRN 611.72 LUMP OR MASS IN BREAST 10/02/2010 AHSAN CHANG APRN V72.31 SPECIAL POPULATION PARAPROFESSIONAL EXAM, ROUTINE 10/02/2010 PAMELA HAMMERER TAB, MALIK R 112.1 CANDIDIASIS VAGINAL 10/02/2010 PAMELA HAMMERER TAB, MALIK R 611.71 MASTODYNIA 10/02/2010 PAMELA HAMMERER TAB, MALIK R 611.72 LUMP OR MASS IN BREAST 10/02/2010 PAMELA PASTORN, MALIK R V72.31 SPECIAL POPULATION PARAPROFESSIONAL EXAM, ROUTINE 10/02/2010 BAH DO, COCO K 112.1 CANDIDIASIS VAGINAL 10/02/2010 BAH DO, COCO K 611.71 MASTODYNIA 10/02/2010 BAH DO, COCO K 611.72 LUMP OR MASS IN BREAST 10/02/2010 BAH DO, COCO K V72.31 SPECIAL POPULATION PARAPROFESSIONAL EXAM, ROUTINE 10/02/2010 BAH DO, COCO K 112.1 CANDIDIASIS VAGINAL 10/02/2010 BAH DO, COCO K 611.71 MASTODYNIA 10/02/2010 BAH DO, COCO K 611.72 LUMP OR MASS IN BREAST 10/02/2010 BAH DO, COCO K V72.31 SPECIAL POPULATION PARAPROFESSIONAL EXAM, ROUTINE 10/02/2010 MADL HAMMERER TAB, ALBIN L 112 .1 CANDIDIASIS VAGINAL 10/02/2010 MADL HAMMERER TAB, ALBIN L 611 .71 MASTODYNIA 10/02/2010 MADL HAMMERER TAB, ALBIN L 611 .72 LUMP OR MASS IN BREAST 10/02/2010 MADL HAMMERER TAB, ALBIN L V72 .31 SPECIAL POPULATION PARAPROFESSIONAL EXAM, ROUTINE 10/02/2010 MADL HAMMERER TAB, ALBIN L 112 .1 CANDIDIASIS VAGINAL 10/02/2010 MADL HAMMERER TAB, ALBIN L 611 .71 MASTODYNIA 10/02/2010 MADL HAMMERER TAB, ALBIN L 611 .72 LUMP OR MASS IN BREAST 10/02/2010 MADL HAMMERER TAB, ALBIN L V72 .31 SPECIAL POPULATION PARAPROFESSIONAL EXAM, ROUTINE 10/02/2010 BAH DO, COCO K 112.1 CANDIDIASIS VAGINAL 10/02/2010 BAH DO, COCO K 611.71 MASTODYNIA 10/02/2010 BAH DO, COCO K 611.72 LUMP OR MASS IN BREAST 10/02/2010 BAH DO, COCO K V72.31 SPECIAL POPULATION PARAPROFESSIONAL EXAM, ROUTINE 10/02/2010 BAH DO COCO K 112.1 CANDIDIASIS VAGINAL 10/02/2010 BAH DO COCO K 611.71 MASTODYNIA 10/02/2010 BAH DO COCO K 611.72 LUMP OR MASS IN BREAST 10/02/2010 BAH DO COCO K V72.31 SPECIAL POPULATION PARAPROFESSIONAL EXAM, ROUTINE 10/02/2010 DEANDRE CUEVAS MD N 112 .1 CANDIDIASIS VAGINAL 10/02/2010 DEANDRE CUEVAS MD N 611 .71 MASTODYNIA 10/02/2010 DEANDRE CUEVAS MD 611 .72 LUMP OR MASS IN BREAST 10/02/2010 DEANDRE CUEVAS MD V72 .31 SPECIAL POPULATION PARAPROFESSIONAL EXAM, ROUTINE 10/02/2010 NIURKA SINGH COCO K 112.1 CANDIDIASIS VAGINAL 10/02/2010 NIURKA SINGH COCO K 611.71 MASTODYNIA 10/02/2010 BAH DO COCO K 611.72 LUMP OR MASS IN BREAST 10/02/2010 NIURKA SINGH COCO K V72.31 SPECIAL POPULATION PARAPROFESSIONAL EXAM, ROUTINE 10/02/2010 MADL HAMMERER TAB, ALBIN L 112 .1 CANDIDIASIS VAGINAL 10/02/2010 MADL HAMMERER TAB, ALBIN L 611 .71 MASTODYNIA 10/02/2010 MADL HAMMERER TAB, ALBIN L 611 .72 LUMP OR MASS IN BREAST 10/02/2010 MADL HAMMERER TAB, ALBIN L V72 .31 SPECIAL POPULATION PARAPROFESSIONAL EXAM, ROUTINE 10/02/2010 NIURKA SINGH COCO K 112.1 CANDIDIASIS VAGINAL 10/02/2010 NIURKA SINGH COCO K 611.71 MASTODYNIA 10/02/2010 BAH DO COCO K 611.72 LUMP OR MASS IN BREAST 10/02/2010 BAH DO COCO K V72.31 SPECIAL POPULATION PARAPROFESSIONAL EXAM, ROUTINE 10/02/2010 DEANDRE CUEVAS MD N 112 .1 CANDIDIASIS VAGINAL 10/02/2010 DEANDRE CUEVAS MD N 611 .71 MASTODYNIA 10/02/2010 DEANDRE CUEVAS MD N 611 .72 LUMP OR MASS IN BREAST 10/02/2010 DEANDRE CUEVAS MD N V72 .31 SPECIAL POPULATION PARAPROFESSIONAL EXAM, ROUTINE 10/02/2010 MADL HAMMERER TAB, ALBIN L 112 .1 CANDIDIASIS VAGINAL 10/02/2010 MADL HAMMERER TAB, ALBIN L 611 .71 MASTODYNIA 10/02/2010 MADL HAMMERER TAB, ALBIN L 611 .72 LUMP OR MASS IN BREAST 10/02/2010 MADL HAMMERER TAB, ALBIN L V72 .31 SPECIAL POPULATION PARAPROFESSIONAL EXAM, ROUTINE 10/02/2010 MADL HAMMERER TAB, ALBIN L 112 .1 CANDIDIASIS VAGINAL 10/02/2010 MADL HAMMERER TAB, ALBIN L 611 .71 MASTODYNIA 10/02/2010 MADL HAMMERER TAB, ALBIN L 611 .72 LUMP OR MASS IN BREAST 10/02/2010 MADL HAMMERER TAB, ALBIN L V72 .31 SPECIAL POPULATION PARAPROFESSIONAL EXAM, ROUTINE 10/02/2010 BAH DO, COCO K 112.1 CANDIDIASIS VAGINAL 10/02/2010 BAH DO, COCO K 611.71 MASTODYNIA 10/02/2010 BAH DO, COCO K 611.72 LUMP OR MASS IN BREAST 10/02/2010 BAH DO, COCO K V72.31 SPECIAL POPULATION PARAPROFESSIONAL EXAM, ROUTINE 10/16/2010 250.00 ALEX BETES MELLITUS 10/16/2010 AHSAN CHANG APRN 250.00 DIABETES MELLITUS 10/16/2010 MALIK SANTIAGO APRN 250.00 DIABETES MELLITUS 10/16/2010 BAH DO, COCO K 250.00 DIABETES MELLITUS 10/16/2010 BAH DO, COCO K 250.00 DIABETES MELLITUS 10/16/2010 [facility] ALBIN L 250 .00 DIABETES MELLITUS 10/16/2010 [facility] HAMMERER TAB, ALBIN L 250 .00 DIABETES MELLITUS 10/16/2010 BAH DO, COCO K 250.00 DIABETES MELLITUS 10/16/2010 BAH DO, COCO K 250.00 DIABETES MELLITUS 10/16/2010 DEANDRE CUEVAS MD 250 .00 DIABETES MELLITUS 10/16/2010 BAH DO, COCO K 250.00 DIABETES MELLITUS 10/16/2010 MADL HAMMERER TAB, ALBIN L 250 .00 DIABETES MELLITUS 10/16/2010 BAH DO, COCO K 250.00 DIABETES MELLITUS 10/16/2010 DEANDRE CUEVAS MD 250 .00 DIABETES MELLITUS 10/16/2010 MAD HAMMERER TAB, ALBIN L 250 .00 DIABETES MELLITUS 10/16/2010 MADL HAMMERER TAB, ALBIN L 250 .00 DIABETES MELLITUS 10/16/2010 BAH DO, COCO K 250.00 DIABETES MELLITUS 01/05/[address] pain or discomfort 01/05/2011 AHSAN CHANG APRN 786.50 chest pain or discomfort 01/05/2011 MALIK SANTIAGO APRN 786.50 chest pain or discomfort 01/05/2011 BAH DO, COCO K 786.50 chest pain or discomfort 01/05/2011 BAH DO, COCO K 786.50 chest pain or discomfort 01/05/2011 MADL HAMMERER TAB, ALBIN L 786 .50 chest pain or discomfort 01/05/2011 MADL HAMMERER TAB, ALBIN L 786 .50 chest pain or discomfort 01/05/2011 BAH DO, COCO K 786.50 chest pain or discomfort 01/05/2011 BAH DO, COCO K 786.50 chest pain or discomfort 01/05/2011 DEANDRE CUEVAS MD 786 .50 chest pain or discomfort 01/05/2011 BAH DO, COCO K 786.50 chest pain or discomfort 01/05/2011 MADL HAMMERER TAB, ALBIN L 786 .50 chest pain or discomfort 01/05/2011 BAH DO, COCO K 786.50 chest pain or discomfort 01/05/2011 DEANDRE CUEVAS MD 786 .50 chest pain or discomfort 01/05/2011 MADL HAMMERER TAB, ALBIN L 786 .50 chest pain or discomfort 01/05/2011 MADL HAMMERER TAB, ALBIN L 786 .50 chest pain or discomfort 01/05/2011 BAH DO, COCO K 786.50 chest pain or discomfort 01/08/2011 Ot 250.60 01/08/2011 Ot 357.2 01/08/2011 Ot 401.9 01/08/2011 Ot 414.01 01/08/2011 Ot 577.0 01/08/2011 Ot 599.0 01/08/2011 Ot 786.50 01/08/2011 Ot E932.3 01/08/2011 Ot V12.2 01/08/2011 Ot V45.82 03/02/2011 599.0 URIN MILLIE TRACT INFECTION 03/02/2011 AHSAN CHANG APRN 59 9.0 URINARY TRACT INFECTION 03/02/2011 MALIK SANTIAGO APRN 599.0 URINARY TRACT INFECTION 03/02/2011 BAH DO, COCO K 599.0 URINARY TRACT INFECTION 03/02/2011 BAH DO, COCO K 599.0 URINARY TRACT INFECTION 03/02/2011 MADL HAMMERER TAB, ALBIN L 599 .0 URINARY TRACT INFECTION 03/02/2011 MADL HAMMERER TAB, ALBIN L 599 .0 URINARY TRACT INFECTION 03/02/2011 BAH DO, COCO K 599.0 URINARY TRACT INFECTION 03/02/2011 BAH DO, COCO K 599.0 URINARY TRACT INFECTION 03/02/2011 DEANDRE CUEVAS MD 599 .0 URINARY TRACT INFECTION 03/02/2011 BAH DO, COCO K 599.0 URINARY TRACT INFECTION 03/02/2011 MADL HAMMERER TAB, ALBIN L 599 .0 URINARY TRACT INFECTION 03/02/2011 BAH DO, COCO K 599.0 URINARY TRACT INFECTION 03/02/2011 DEANDRE CUEVAS MD 599 .0 URINARY TRACT INFECTION 03/02/2011 MADL HAMMERER TAB, ALBIN L 599 .0 URINARY TRACT INFECTION 03/02/2011 MADL HAMMERER TAB, ALBIN L 599 .0 URINARY TRACT INFECTION 03/02/2011 BAH DO, COCO K 599.0 URINARY TRACT INFECTION 03/28/2011 274.9 GOUT 03/28/2011 AHSAN CHANG APRN 27 4.9 GOUT 03/28/2011 MALIK SANTIAGO APRN 274.9 GOUT 03/28/2011 BAH DO, COCO K 274.9 GOUT 03/28/2011 BAH DO, COCO K 274.9 GOUT 03/28/2011 MADL HAMMERER TAB, ALBIN L 274 .9 GOUT 03/28/2011 MADL HAMMERER TAB, ALBIN L 274 .9 GOUT 03/28/2011 BAH DO, COCO K 274.9 GOUT 03/28/2011 BAH DO, COCO K 274.9 GOUT 03/28/2011 DEANDRE CUEVAS MD N 274 .9 GOUT 03/28/2011 BAH DO, COCO K 274.9 GOUT 03/28/2011 MADL HAMMERER TAB, ALBIN L 274 .9 GOUT 03/28/2011 BAH DO, COCO K 274.9 GOUT 03/28/2011 DEANDRE CUEVAS MD 274 .9 GOUT 03/28/2011 MADL HAMMERER TAB, ALBIN L 274 .9 GOUT 03/28/2011 MADL HAMMERER TAB, ALBIN L 274 .9 GOUT 03/28/2011 BAH DO, COCO K 274.9 GOUT 07/26/2011 272.4 HYPE RLIPIDEMIA 07/26/2011 AHSAN CHANG APRN 27 2.4 HYPERLIPIDEMIA 07/26/2011 PAMELA HAMMERER TABAMI MayberryINA R 272.4 HYPERLIPIDEMIA 07/26/2011 BAH DO, COCO K 272.4 HYPERLIPIDEMIA 07/26/2011 BAH DO, COCO K 272.4 HYPERLIPIDEMIA 07/26/2011 MADL HAMMERER TAB, ALBIN L 272 .4 HYPERLIPIDEMIA 07/26/2011 MADL HAMMERER TAB, ALBIN L 272 .4 HYPERLIPIDEMIA 07/26/2011 BAH DO, COCO K 272.4 HYPERLIPIDEMIA 07/26/2011 BAH DO, COCO K 272.4 HYPERLIPIDEMIA 07/26/2011 DEANDRE CUEVAS MD N 272 .4 HYPERLIPIDEMIA 07/26/2011 BAH DO, COCO K 272.4 HYPERLIPIDEMIA 07/26/2011 MADL HAMMERER TAB, ALBIN L 272 .4 HYPERLIPIDEMIA 07/26/2011 BAH DO, COCO K 272.4 HYPERLIPIDEMIA 07/26/2011 DEANDRE CUEVAS MD N 272 .4 HYPERLIPIDEMIA 07/26/2011 MADL HAMMERER TAB, ALBIN L 272 .4 HYPERLIPIDEMIA 07/26/2011 MADL HAMMERER TAB, ALBIN L 272 .4 HYPERLIPIDEMIA 07/26/2011 BAH DO, COCO K 272.4 HYPERLIPIDEMIA 08/15/2011 414.00 CAD 08/15/2011 AHSAN CHANG APRN 414.00 CAD 08/15/2011 AMI SANTIAGO APRNINA R 414.00 CAD 08/15/2011 BAH DO, COCO K 414.00 CAD 08/15/2011 BAH DO, COCO K 414.00 CAD 08/15/2011 MADL HAMMERER TAB, ALBIN L 414 .00 CAD 08/15/2011 MADL HAMMERER TAB, ALBIN L 414 .00 CAD 08/15/2011 BAH DO, COCO K 414.00 CAD 08/15/2011 BAH DO, COCO K 414.00 CAD 08/15/2011 DEANDRE CUEVAS MD N 414 .00 CAD 08/15/2011 BAH DO, COCO K 414.00 CAD 08/15/2011 OC HAMMERER TAB, ALBIN L 414 .00 CAD 08/15/2011 COCO BAH DO K 414.00 CAD 08/15/2011 DEANDRE CUEVAS MD 414 .00 CAD 08/15/2011 OC HAMMERER TAB, ALBIN L 414 .00 CAD 08/15/2011 OC HAMMERER TAB, ALBIN L 414 .00 CAD 08/15/2011 COCO BAH DO K 414.00 CAD 08/27/2011 Ot 397.0 08/27/2011 Ot 401.9 08/27/2011 Ot 414.01 08/27/2011 Ot 424.0 08/27/2011 Ot 786.50 08/27/2011 Ot V45.82 09/03/2011 250.62 ALEX BETES W/ NEUROPATHY, TYPE 2 - UNCONTROLLED 09/03/2011 AHSAN CHANG APRN 250.62 DIABETES W/ NEUROPATHY, TYPE 2 - UNCONTROLLED 09/03/2011 MALIK SANTIAGO APRN 250.62 DIABETES W/ NEUROPATHY, TYPE 2 - UNCONTROLLED 09/03/2011 COCO BAH DO K 250.62 DIABETES W/ NEUROPATHY, TYPE 2 - UNCONTROLLED 09/03/2011 COCO BAH DO K 250.62 DIABETES W/ NEUROPATHY, TYPE 2 - UNCONTROLLED 09/03/2011 ALBIN RENAE APRN L 250 .62 DIABETES W/ NEUROPATHY, TYPE 2 - UNCONTROLLED 09/03/2011 ALBIN RENAE APRN L 250 .62 DIABETES W/ NEUROPATHY, TYPE 2 - UNCONTROLLED 09/03/2011 COCO BAH DO K 250.62 DIABETES W/ NEUROPATHY, TYPE 2 - UNCONTROLLED 09/03/2011 COCO BAH DO K 250.62 DIABETES W/ NEUROPATHY, TYPE 2 - UNCONTROLLED 09/03/2011 DEANDRE CUEVAS MD 250 .62 DIABETES W/ NEUROPATHY, TYPE 2 - UNCONTROLLED 09/03/2011 COCO BAH DO K 250.62 DIABETES W/ NEUROPATHY, TYPE 2 - UNCONTROLLED 09/03/2011 ALBIN RENAE APRN L 250 .62 DIABETES W/ NEUROPATHY, TYPE 2 - UNCONTROLLED 09/03/2011 COCO BAH DO K 250.62 DIABETES W/ NEUROPATHY, TYPE 2 - UNCONTROLLED 09/03/2011 DEANDRE CUEVAS MD 250 .62 DIABETES W/ NEUROPATHY, TYPE 2 - UNCONTROLLED 09/03/2011 TONY RENAE APRNNYA L 250 .62 DIABETES W/ NEUROPATHY, TYPE 2 - UNCONTROLLED 09/03/2011 MADL HAMMERER TAB, ALBIN L 250 .62 DIABETES W/ NEUROPATHY, TYPE 2 - UNCONTROLLED 09/03/2011 BAH DO, COCO K 250.62 DIABETES W/ NEUROPATHY, TYPE 2 - UNCONTROLLED 09/12/2011 465.9 Uppe r Respiratory Infection 09/12/2011 AHSAN CHANG APRN 46 5.9 Upper Respiratory Infection 09/12/2011 MALIK SANTIAGO APRN R 465.9 Upper Respiratory Infection 09/12/2011 BAH DO, COCO K 465.9 Upper Respiratory Infection 09/12/2011 BAH DO, COCO K 465.9 Upper Respiratory Infection 09/12/2011 MADL HAMMERER TAB, ALBIN L 465 .9 Upper Respiratory Infection 09/12/2011 CALLIEL HAMMERER TABROMAN MayberryALBIN L 465 .9 Upper Respiratory Infection 09/12/2011 BAH DO, COCO K 465.9 Upper Respiratory Infection 09/12/2011 BAH DO, COCO K 465.9 Upper Respiratory Infection 09/12/2011 DEANDRE CUEVAS MD N 465 .9 Upper Respiratory Infection 09/12/2011 BAH DO, COCO K 465.9 Upper Respiratory Infection 09/12/2011 MADAnnabelle HAMMERER TAB, ALBIN L 465 .9 Upper Respiratory Infection 09/12/2011 BAH DO, COCO K 465.9 Upper Respiratory Infection 09/12/2011 DEANDRE CUEVAS MD N 465 .9 Upper Respiratory Infection 09/12/2011 MADTONY Alanis APRNNYA L 465 .9 Upper Respiratory Infection 09/12/2011 CALLIE NICOLE ALBIN L 465 .9 Upper Respiratory Infection 09/12/2011 BAH DO, COCO K 465.9 Upper Respiratory Infection 10/04/2011 692.9 Derm atitis Contact Unspecified 10/04/2011 AHSAN CHANG APRN 69 2.9 Dermatitis Contact Unspecified 10/04/2011 MALIK SANTIAGO APRN R 692.9 Dermatitis Contact Unspecified 10/04/2011 BAH DO COCO K 692.9 Dermatitis Contact Unspecified 10/04/2011 BAH DO, COCO K 692.9 Dermatitis Contact Unspecified 10/04/2011 ALBIN RENAE APRN L 692 .9 Dermatitis Contact Unspecified 10/04/2011 MADL HAMMERER TAB, ALBIN L 692 .9 Dermatitis Contact Unspecified 10/04/2011 BAH DO, COCO K 692.9 Dermatitis Contact Unspecified 10/04/2011 BAH DO, COCO K 692.9 Dermatitis Contact Unspecified 10/04/2011 DEANDRE CUEVAS MD N 692 .9 Dermatitis Contact Unspecified 10/04/2011 BAH DO, COCO K 692.9 Dermatitis Contact Unspecified 10/04/2011 MADL HAMMERER TAB, ALBIN L 692 .9 Dermatitis Contact Unspecified 10/04/2011 BAH DO, COCO K 692.9 Dermatitis Contact Unspecified 10/04/2011 DEANDRE CUEVAS MD N 692 .9 Dermatitis Contact Unspecified 10/04/2011 MADL HAMMERER TAB, ALBIN L 692 .9 Dermatitis Contact Unspecified 10/04/2011 MADL HAMMERER TAB, ALBIN L 692 .9 Dermatitis Contact Unspecified 10/04/2011 BAH DO, COCO K 692.9 Dermatitis Contact Unspecified 10/15/2011 466.0 Acut e Bronchitis 10/15/2011 AHSAN CHANG APRN 46 6.0 Acute Bronchitis 10/15/2011 PAMELA HAMMERER TABAMI MayberryINA R 466.0 Acute Bronchitis 10/15/2011 BAH DO, COCO K 466.0 Acute Bronchitis 10/15/2011 BAH DO, COCO K 466.0 Acute Bronchitis 10/15/2011 MADL HAMMERER TAB, ALBIN L 466 .0 Acute Bronchitis 10/15/2011 MAD HAMMERER TAB, ALBIN L 466 .0 Acute Bronchitis 10/15/2011 BAH DO, COCO K 466.0 Acute Bronchitis 10/15/2011 BAH DO, COCO K 466.0 Acute Bronchitis 10/15/2011 DEANDRE CUEVAS MD N 466 .0 Acute Bronchitis 10/15/2011 BAH DO, COCO K 466.0 Acute Bronchitis 10/15/2011 MADL HAMMERER TAB, ALBIN L 466 .0 Acute Bronchitis 10/15/2011 BAH DO, COCO K 466.0 Acute Bronchitis 10/15/2011 DEANDRE CUEVAS MD N 466 .0 Acute Bronchitis 10/15/2011 MADL HAMMERER TABROMANALBIN L 466 .0 Acute Bronchitis 10/15/2011 MADL HAMMERER TAB, ALBIN L 466 .0 Acute Bronchitis 10/15/2011 BAH DO, COCO K 466.0 Acute Bronchitis 11/01/2011 682.7 Cell ulitis - Foot 11/01/2011 AHSAN CHANG APRN 68 2.7 Cellulitis - Foot 11/01/2011 MALIK SANTIAGO APRN R 682.7 Cellulitis - Foot 11/01/2011 BAH DO, COCO K 682.7 Cellulitis - Foot 11/01/2011 BAH DO, COCO K 682.7 Cellulitis - Foot 11/01/2011 MADL HAMMERER TAB, ALBIN L 682 .7 Cellulitis - Foot 11/01/2011 MADL HAMMERER TAB, ALBIN L 682 .7 Cellulitis - Foot 11/01/2011 BAH DO, COCO K 682.7 Cellulitis - Foot 11/01/2011 BAH DO, COCO K 682.7 Cellulitis - Foot 11/01/2011 DEANDRE CUEVAS MD N 682 .7 Cellulitis - Foot 11/01/2011 BAH DO, COCO K 682.7 Cellulitis - Foot 11/01/2011 MADL HAMMERER TAB, ALBIN L 682 .7 Cellulitis - Foot 11/01/2011 BAH DO, COCO K 682.7 Cellulitis - Foot 11/01/2011 DEANDRE CUEVAS MD N 682 .7 Cellulitis - Foot 11/01/2011 MADL HAMMERER TAB, ALBIN L 682 .7 Cellulitis - Foot 11/01/2011 MADL HAMMERER TAB, ALBIN L 682 .7 Cellulitis - Foot 11/01/2011 BAH DO, COCO K 682.7 Cellulitis - Foot 11/28/2011 724.2 lowe r back pain 11/28/2011 V03.82 Nee d For Vaccination Pneumococcal 11/28/2011 AHSAN CHANG APRN 72 4.2 lower back pain 11/28/2011 AHSAN CHANG APRN V03.82 Need For Vaccination Pneumococcal 11/28/2011 MALIK SANTIAGO APRN 724.2 lower back pain 11/28/2011 MALIK SANTIAGO APRN V03.82 Need For Vaccination Pneumococcal 11/28/2011 COCO BAH DO K 724.2 lower back pain 11/28/2011 SABRINA BAH DOA K V03.82 Need For Vaccination Pneumococcal 11/28/2011 SABRINA BAH DOA K 724.2 lower back pain 11/28/2011 BAH SABRINA SINGHA K V03.82 Need For Vaccination Pneumococcal 11/28/2011 MADL HAMMERER TAB, ALBIN L 724 .2 lower back pain 11/28/2011 MADL HAMMERER TAB, ALBIN L V03 .82 Need For Vaccination Pneumococcal 11/28/2011 MADL HAMMERER TAB, ALBIN L 724 .2 lower back pain 11/28/2011 MADL HAMMERER TAB, ALBIN L V03 .82 Need For Vaccination Pneumococcal 11/28/2011 BAH SABRINA SINGHA K 724.2 lower back pain 11/28/2011 COCO BAH DO K V03.82 Need For Vaccination Pneumococcal 11/28/2011 COCO BAH DO K 724.2 lower back pain 11/28/2011 COCO BAH DO K V03.82 Need For Vaccination Pneumococcal 11/28/2011 DEANDRE CUEVAS MD 724 .2 lower back pain 11/28/2011 DEANDRE CUEVAS MD V03 .82 Need For Vaccination Pneumococcal 11/28/2011 SABRINA BAH DOA K 724.2 lower back pain 11/28/2011 COCO BHA DO K V03.82 Need For Vaccination Pneumococcal 11/28/2011 MADL HAMMERER TAB, ALBIN L 724 .2 lower back pain 11/28/2011 MADL HAMMERER TAB, ALBIN L V03 .82 Need For Vaccination Pneumococcal 11/28/2011 COCO BAH DO K 724.2 lower back pain 11/28/2011 COCO BAH DO K V03.82 Need For Vaccination Pneumococcal 11/28/2011 DEANDRE CUEVAS MD N 724 .2 lower back pain 11/28/2011 DEANDRE CUEVAS MD N V03 .82 Need For Vaccination Pneumococcal 11/28/2011 MADL HAMMERER TAB, ALBIN L 724 .2 lower back pain 11/28/2011 MADL HAMMERER TAB, ALBIN L V03 .82 Need For Vaccination Pneumococcal 11/28/2011 MADL HAMMERER TAB, ALBIN L 724 .2 lower back pain 11/28/2011 MADL HAMMERER TAB, ALBIN L V03 .82 Need For Vaccination Pneumococcal 11/28/2011 BAH DO, COCO K 724.2 lower back pain 11/28/2011 BAH DO, COCO K V03.82 Need For Vaccination Pneumococcal 01/09/2012 438.9 CVA LATE EFFECTS 01/09/2012 782.3 EDEMA 01/09/2012 AHSAN CHANG APRN T 43 8.9 CVA LATE EFFECTS 01/09/2012 AHSAN CHANG APRN T 78 2.3 EDEMA 01/09/2012 PAMELA HAMMERER TAB, MALIK R 438.9 CVA LATE EFFECTS 01/09/2012 PAMELA HAMMERER TAB, MALIK R 782.3 EDEMA 01/09/2012 BAH DO, COCO K 438.9 CVA LATE EFFECTS 01/09/2012 BAH DO, COCO K 782.3 EDEMA 01/09/2012 BAH DO, COCO K 438.9 CVA LATE EFFECTS 01/09/2012 BAH DO, COCO K 782.3 EDEMA 01/09/2012 MADL HAMMERER TAB, ALBIN L 438 .9 CVA LATE EFFECTS 01/09/2012 MADL HAMMERER TAB, ALBIN L 782 .3 EDEMA 01/09/2012 MADL HAMMERER TAB, ALBIN L 438 .9 CVA LATE EFFECTS 01/09/2012 MADL HAMMERER TAB, ALBIN L 782 .3 EDEMA 01/09/2012 BAH DO, COCO K 438.9 CVA LATE EFFECTS 01/09/2012 BAH DO, COCO K 782.3 EDEMA 01/09/2012 BAH DO, COCO K 438.9 CVA LATE EFFECTS 01/09/2012 BAH DO, COCO K 782.3 EDEMA 01/09/2012 DEANDRE CUEVAS MD 438 .9 CVA LATE EFFECTS 01/09/2012 DEANDRE CUEVAS MD 782 .3 EDEMA 01/09/2012 BAH DO, COCO K 438.9 CVA LATE EFFECTS 01/09/2012 BAH DO, COCO K 782.3 EDEMA 01/09/2012 MADL HAMMERER TAB, ALBIN L 438 .9 CVA LATE EFFECTS 01/09/2012 MADL HAMMERER TAB, ALBIN L 782 .3 EDEMA 01/09/2012 BAH DO, COCO K 438.9 CVA LATE EFFECTS 01/09/2012 BAH DO, COCO K 782.3 EDEMA 01/09/2012 DEANDRE CUEVAS MD N 438 .9 CVA LATE EFFECTS 01/09/2012 DEANDRE CUEVAS MD N 782 .3 EDEMA 01/09/2012 MADL HAMMERER TAB, ALBIN L 438 .9 CVA LATE EFFECTS 01/09/2012 MADL HAMMERER TAB, ALBIN L 782 .3 EDEMA 01/09/2012 MADL HAMMERER TAB, ALBIN L 438 .9 CVA LATE EFFECTS 01/09/2012 MADL HAMMERER TAB, ALBIN L 782 .3 EDEMA 01/09/2012 BAH DO, COCO K 438.9 CVA LATE EFFECTS 01/09/2012 BAH DO, COCO K 782.3 EDEMA 02/21/2012 Ot 518.0 PULM ONARY COLLAPSE 02/21/2012 Ot 847.0 SPRA IN OF NECK 02/21/2012 Ot 924.11 CON TUSION OF KNEE 02/21/2012 Ot 924.20 CON TUSION OF FOOT 02/21/2012 Ot 959.7 LOWE R LEG INJURY NOS 02/21/2012 Ot E000.8 OTH ER EXTERNAL CAUSE STATUS 02/21/2012 Ot E849.0 ACC IDENT IN HOME 02/21/2012 Ot E888.9 FAL L NOS 02/25/2012 599.0 Urin millie Tract Infection Site Not Specified 02/25/2012 845.10 Uns pecified Site Of Foot Sprain 02/25/2012 AHSAN CHANG APRN 59 9.0 Urinary Tract Infection Site Not Specified 02/25/2012 AHSAN CHANG APRN 845.10 Unspecified Site Of Foot Sprain 02/25/2012 MALIK SANTIAGO APRN 599.0 Urinary Tract Infection Site Not Specified 02/25/2012 MALIK SANTIAGO APRN 845.10 Unspecified Site Of Foot Sprain 02/25/2012 BAH DOSABRINAA K 599.0 Urinary Tract Infection Site Not Specified 02/25/2012 BAH DOSABRINAA K 845.10 Unspecified Site Of Foot Sprain 02/25/2012 BAH DO, COCO K 599.0 Urinary Tract Infection Site Not Specified 02/25/2012 BAH DO COCO K 845.10 Unspecified Site Of Foot Sprain 02/25/2012 ALBIN RENAE APRN L 599 .0 Urinary Tract Infection Site Not Specified 02/25/2012 MADL HAMMERER TAB, ALBIN L 845 .10 Unspecified Site Of Foot Sprain 02/25/2012 MADL HAMMERER TAB, ALBIN L 599 .0 Urinary Tract Infection Site Not Specified 02/25/2012 MADL HAMMERER TAB, ALBIN L 845 .10 Unspecified Site Of Foot Sprain 02/25/2012 BAH DO, COCO K 599.0 Urinary Tract Infection Site Not Specified 02/25/2012 BAH DO, COCO K 845.10 Unspecified Site Of Foot Sprain 02/25/2012 BAH DO, COCO K 599.0 Urinary Tract Infection Site Not Specified 02/25/2012 BAH DO, COCO K 845.10 Unspecified Site Of Foot Sprain 02/25/2012 DEANDRE CUEVAS MD N 599 .0 Urinary Tract Infection Site Not Specified 02/25/2012 DEANDRE CUEVAS MD N 845 .10 Unspecified Site Of Foot Sprain 02/25/2012 BAH DO, COCO K 599.0 Urinary Tract Infection Site Not Specified 02/25/2012 BAH DO, COCO K 845.10 Unspecified Site Of Foot Sprain 02/25/2012 MADL HAMMERER TAB, ALBIN L 599 .0 Urinary Tract Infection Site Not Specified 02/25/2012 MADL HAMMERER TAB, ALBIN L 845 .10 Unspecified Site Of Foot Sprain 02/25/2012 BAH DO, COCO K 599.0 Urinary Tract Infection Site Not Specified 02/25/2012 BAH DO, COCO K 845.10 Unspecified Site Of Foot Sprain 02/25/2012 DEANDRE CUEVAS MD N 599 .0 Urinary Tract Infection Site Not Specified 02/25/2012 DEANDRE CUEVAS MD N 845 .10 Unspecified Site Of Foot Sprain 02/25/2012 MADL HAMMERER TAB, ALBIN L 599 .0 Urinary Tract Infection Site Not Specified 02/25/2012 MADL HAMMERER TAB, ALBIN L 845 .10 Unspecified Site Of Foot Sprain 02/25/2012 MADL HAMMERER TAB, LABIN L 599 .0 Urinary Tract Infection Site Not Specified 02/25/2012 MADL HAMMERER TAB, ALBIN L 845 .10 Unspecified Site Of Foot Sprain 02/25/2012 BAH DO COCO K 599.0 Urinary Tract Infection Site Not Specified 02/25/2012 BAH DO COCO K 845.10 Unspecified Site Of Foot Sprain 03/12/2012 719.46 KNE E PAIN 03/12/2012 AHSAN CHANG APRN 719.46 KNEE PAIN 03/12/2012 MALIK SANTIAGO APRN R 719.46 KNEE PAIN 03/12/2012 BAH DO, COCO K 719.46 KNEE PAIN 03/12/2012 BAH DO, COCO K 719.46 KNEE PAIN 03/12/2012 MADL HAMMERER TAB, ALBIN L 719 .46 KNEE PAIN 03/12/2012 MADL HAMMERER TAB, ALBIN L 719 .46 KNEE PAIN 03/12/2012 BAH DO, COCO K 719.46 KNEE PAIN 03/12/2012 BAH DO, COCO K 719.46 KNEE PAIN 03/12/2012 DEANDRE CUEVAS MD 719 .46 KNEE PAIN 03/12/2012 BAH DO, COCO K 719.46 KNEE PAIN 03/12/2012 MADL HAMMERER TAB, ALBIN L 719 .46 KNEE PAIN 03/12/2012 BAH DO, COCO K 719.46 KNEE PAIN 03/12/2012 DEANDRE CUEVAS MD N 719 .46 KNEE PAIN 03/12/2012 MADL HAMMERER TAB, ALBIN L 719 .46 KNEE PAIN 03/12/2012 MADL HAMMERER TAB, ALBIN L 719 .46 KNEE PAIN 03/12/2012 BAH DO, COCO K 719.46 KNEE PAIN 04/16/2012 780.2 SYNC OPE AND COLLAPSE 04/16/2012 786.2 COUGH 04/16/2012 AHSAN CHANG APRN 78 0.2 SYNCOPE AND COLLAPSE 04/16/2012 AHSAN CHANG APRN 78 6.2 COUGH 04/16/2012 MALIK SANTIAGO APRN R 780.2 SYNCOPE AND COLLAPSE 04/16/2012 MALIK SANTIAGO APRN R 786.2 COUGH 04/16/2012 BAH DO COCO K 780.2 SYNCOPE AND COLLAPSE 04/16/2012 BAH DO, COCO K 786.2 COUGH 04/16/2012 BAH DO, COCO K 780.2 SYNCOPE AND COLLAPSE 04/16/2012 BAH DO, COCO K 786.2 COUGH 04/16/2012 MADL HAMMERER TAB, ALBIN L 780 .2 SYNCOPE AND COLLAPSE 04/16/2012 MADL HAMMERER TAB, ALBIN L 786 .2 COUGH 04/16/2012 MADL HAMMERER TAB, ALBIN L 780 .2 SYNCOPE AND COLLAPSE 04/16/2012 MADL HAMMERER TAB, ALBIN L 786 .2 COUGH 04/16/2012 BAH DO, COCO K 780.2 SYNCOPE AND COLLAPSE 04/16/2012 BAH DO, COCO K 786.2 COUGH 04/16/2012 BAH DO, COCO K 780.2 SYNCOPE AND COLLAPSE 04/16/2012 BAH DO, COCO K 786.2 COUGH 04/16/2012 DEANDRE CUEVAS MD N 780 .2 SYNCOPE AND COLLAPSE 04/16/2012 DEANDRE CUEVAS MD N 786 .2 COUGH 04/16/2012 BAH DO, COCO K 780.2 SYNCOPE AND COLLAPSE 04/16/2012 BAH DO, COCO K 786.2 COUGH 04/16/2012 MADL HAMMERER TAB, ALBIN L 780 .2 SYNCOPE AND COLLAPSE 04/16/2012 MADL HAMMERER TAB, ALBIN L 786 .2 COUGH 04/16/2012 BAH DO, COCO K 780.2 SYNCOPE AND COLLAPSE 04/16/2012 BAH DO, COCO K 786.2 COUGH 04/16/2012 DEANDRE CUEVAS MD N 780 .2 SYNCOPE AND COLLAPSE 04/16/2012 DEANDRE CUEVAS MD N 786 .2 COUGH 04/16/2012 MADL HAMMERER TAB, ALBIN L 780 .2 SYNCOPE AND COLLAPSE 04/16/2012 MADL HAMMERER TAB, ALBIN L 786 .2 COUGH 04/16/2012 MADL HAMMERER TAB, ALBIN L 780 .2 SYNCOPE AND COLLAPSE 04/16/2012 MADL HAMMERER TAB, ALBIN L 786 .2 COUGH 04/16/2012 BAH DO, COCO K 780.2 SYNCOPE AND COLLAPSE 04/16/2012 BAH DO, COCO K 786.2 COUGH 10/01/2013 HONEY SEPULVEDA MD Ot 724 .2 LUMBAGO 10/01/2013 HONEY SEPULVEDA MD Ot 923.20 CONTUSION OF HAND(S) 10/01/2013 HONEY SEPULVEDA MD Ot 959 .4 HAND INJURY NOS 10/01/2013 COCO MALIN, HONEY Esposito Ot E000.8 OTHER EXTERNAL CAUSE STATUS 10/01/2013 COCO MALIN, HONEY Esposito Ot E849.0 ACCIDENT IN HOME 10/01/2013 COCO MALIN, HONEY Esposito Ot E888.9 FALL NOS 12/03/2013 PAMELA HAMMERER TAB, MALIK R 3 11 DEPRESSIVE DISORDER NOT ELSEWHERE CLASSIFIED 12/03/2013 PAMELA HAMMERER TAB, MALIK R 599.0 URINARY TRACT INFECTION SITE NOT SPECIFIED 12/03/2013 PAMELA HAMMERER TAB, MALIK R 789.07 ABDOMINAL PAIN GENERALIZED 12/03/2013 [...] K 789.07 ABDOMINAL PAIN GENERALIZED 12/03/2013 MADL HAMMERER TAB, ALBIN L 311 DEPRESSIVE DISORDER NOT ELSEWHERE CLASSIFIED 12/03/2013 MADL HAMMERER TAB, ALBIN L 599 .0 URINARY TRACT INFECTION SITE NOT SPECIFIED 12/03/2013 MADL HAMMERER TAB, ALBIN L 789 .07 ABDOMINAL PAIN GENERALIZED 12/03/2013 MADL HAMMERER TAB, ALBIN L 311 DEPRESSIVE DISORDER NOT ELSEWHERE CLASSIFIED 12/03/2013 MADL HAMMERER TAB, ALBIN L 599 .0 URINARY TRACT INFECTION SITE NOT SPECIFIED 12/03/2013 MADL HAMMERER TAB, ALBIN L 789 .07 ABDOMINAL PAIN GENERALIZED 12/03/2013 BAH DO, COCO [...] COCO K 789.07 ABDOMINAL PAIN GENERALIZED 12/03/2013 FAITH MALIN, DEANDRE N 311 DEPRESSIVE DISORDER NOT ELSEWHERE CLASSIFIED 12/03/2013 DEANDRE CUEVAS MD N 599 .0 URINARY TRACT INFECTION SITE NOT SPECIFIED 12/03/2013 DEANDRE CUEVAS MD 789 .07 ABDOMINAL PAIN GENERALIZED 12/03/2013 BAH DO, COCO K 311 DEPRESSIVE DISORDER NOT ELSEWHERE CLASSIFIED 12/03/2013 BAH DO, COCO K 599.0 URINARY TRACT INFECTION SITE NOT SPECIFIED 12/03/2013 BAH DO, COCO K 789.07 ABDOMINAL PAIN GENERALIZED 12/03/2013 MADL HAMMERER TAB, ALBIN L 311 DEPRESSIVE DISORDER NOT ELSEWHERE CLASSIFIED 12/03/2013 MADL HAMMERER TAB, ALBIN L 599 .0 URINARY TRACT INFECTION SITE NOT SPECIFIED 12/03/2013 MADL HAMMERER TAB, ALBIN L 789 .07 ABDOMINAL PAIN GENERALIZED 12/03/2013 BAH DO, COCO K 311 DEPRESSIVE DISORDER NOT ELSEWHERE CLASSIFIED 12/03/2013 BAH DO, COCO K 599.0 URINARY TRACT INFECTION SITE NOT SPECIFIED 12/03/2013 BAH DO, COCO K 789.07 ABDOMINAL PAIN GENERALIZED 12/03/2013 DEANDRE CUEVAS MD N 311 DEPRESSIVE DISORDER NOT ELSEWHERE CLASSIFIED 12/03/2013 DEANDRE CUEVAS MD 599 .0 URINARY TRACT INFECTION SITE NOT SPECIFIED 12/03/2013 DEANDRE CUEVAS MD 789 .07 ABDOMINAL PAIN GENERALIZED 12/03/2013 MADL HAMMERER TAB, ALBIN L 311 DEPRESSIVE DISORDER NOT ELSEWHERE CLASSIFIED 12/03/2013 MADL HAMMERER TAB, ALBIN L 599 .0 URINARY TRACT INFECTION SITE NOT SPECIFIED 12/03/2013 MADL HAMMERER TAB, ALBIN L 789 .07 ABDOMINAL PAIN GENERALIZED 12/03/2013 MADL HAMMERER TAB, ALBIN L 311 DEPRESSIVE DISORDER NOT ELSEWHERE CLASSIFIED 12/03/2013 MADL HAMMERER TAB, ALBIN L 599 .0 URINARY TRACT INFECTION SITE NOT SPECIFIED 12/03/2013 MADL HAMMERER TAB, ALBIN L 789 .07 ABDOMINAL PAIN GENERALIZED 12/03/2013 BAH DO, COCO K 311 DEPRESSIVE DISORDER NOT ELSEWHERE CLASSIFIED 12/03/2013 BAH DO, COCO K 599.0 URINARY TRACT INFECTION SITE NOT SPECIFIED 12/03/2013 BAH DO, COCO K 789.07 ABDOMINAL PAIN GENERALIZED 01/28/2014 MADL HAMMERER TAB, ALBIN L 719 .41 PAIN IN JOINT INVOLVING SHOULDER REGION 01/28/2014 MADL HAMMERER TAB, ALBIN L 780 .52 INSOMNIA UNSPECIFIED 01/28/2014 MADL HAMMERER TAB, ALBIN L 788 .1 DYSURIA 01/28/2014 MADL HAMMERER TAB ALBIN L 719 .41 PAIN IN JOINT INVOLVING SHOULDER REGION 01/28/2014 MADL HAMMERER TAB ALBIN L 780 .52 INSOMNIA UNSPECIFIED 01/28/2014 MADL HAMMERER TAB ALBIN L 788 .1 DYSURIA 01/28/2014 BAH DO, COCO K 719.41 PAIN IN JOINT INVOLVING SHOULDER REGION 01/28/2014 BAH DO, COCO K 780.52 INSOMNIA UNSPECIFIED 01/28/2014 BAH DO, COCO K 788.1 DYSURIA 01/28/2014 BAH DO, COCO K 719.41 PAIN IN JOINT INVOLVING SHOULDER REGION 01/28/2014 BAH DO, COCO K 780.52 INSOMNIA UNSPECIFIED 01/28/2014 BAH DO, COCO K 788.1 DYSURIA 01/28/2014 DEANDRE CUEVAS MD 719 .41 PAIN IN JOINT INVOLVING SHOULDER REGION 01/28/2014 DEANDRE CUEVAS MD 780 .52 INSOMNIA UNSPECIFIED 01/28/2014 DEANDRE CUEVAS MD 788 .1 DYSURIA 01/28/2014 BAH DO, COCO K 719.41 PAIN IN JOINT INVOLVING SHOULDER REGION 01/28/2014 BAH DO, COCO K 780.52 INSOMNIA UNSPECIFIED 01/28/2014 BAH DO, COCO K 788.1 DYSURIA 01/28/2014 MADL HAMMERER TABROMANALBIN L 719 .41 PAIN IN JOINT INVOLVING SHOULDER REGION 01/28/2014 MADL HAMMERER TAB ALBIN L 780 .52 INSOMNIA UNSPECIFIED 01/28/2014 MADL HAMMERER TAB, ALBIN L 788 .1 DYSURIA 01/28/2014 BAH DO, COCO K 719.41 PAIN IN JOINT INVOLVING SHOULDER REGION 01/28/2014 BAH DO, COCO K 780.52 INSOMNIA UNSPECIFIED 01/28/2014 BAH DO, COCO K 788.1 DYSURIA 01/28/2014 DEANDRE CUEVAS MD 719 .41 PAIN IN JOINT INVOLVING SHOULDER REGION 01/28/2014 FAITH MD, DEANDRE N 780 .52 INSOMNIA UNSPECIFIED 01/28/2014 DEANDRE CUEVAS MD N 788 .1 DYSURIA 01/28/2014 MADL HAMMERER TAB, ALBIN L 719 .41 PAIN IN JOINT INVOLVING SHOULDER REGION 01/28/2014 MADL HAMMERER TAB, ALBIN L 780 .52 INSOMNIA UNSPECIFIED 01/28/2014 MADL HAMMERER TAB, ALBIN L 788 .1 DYSURIA 01/28/2014 MADL HAMMERER TAB, ALBIN L 719 .41 PAIN IN JOINT INVOLVING SHOULDER REGION 01/28/2014 MADL HAMMERER TAB, ALBIN L 780 .52 INSOMNIA UNSPECIFIED 01/28/2014 MADL HAMMERER TAB, ALBIN L 788 .1 DYSURIA 01/28/2014 SABRINA BAH DOA K 719.41 PAIN IN JOINT INVOLVING SHOULDER REGION 01/28/2014 COCO BAH DO K 780.52 INSOMNIA UNSPECIFIED 01/28/2014 SABRINA BAH DOA K 788.1 DYSURIA 03/26/2014 DEANDRE CUEVAS MD Ot 041.49 OTHER AND UNSPECIFIED ESCHERICHIA COLI [ 03/26/2014 DEANDRE CUEVAS MD Ot 250.02 DIAB MIKEY WO COMPL, TYPE II OR UNSPEC TY 03/26/2014 DEANDRE CUEVAS MD Ot 272 .4 HYPERLIPIDEMIA NEC/NOS 03/26/2014 DEANDRE CUEVAS MD Ot 278.00 OBESITY, NOS 03/26/2014 DEANDRE CUEVAS MD Ot 305 .1 TOBACCO USE DISORDER 03/26/2014 DEANDRE CUEVAS MD Ot 356 .9 IDIO PERIPH NEURPTHY NOS 03/26/2014 DEANDRE CUEVAS MD Ot 401 .9 HYPERTENSION NOS 03/26/2014 DEANDRE CUEVAS MD Ot 496 CHR AIRWAY OBSTRUCT NEC 03/26/2014 DEANDRE CUEVAS MD Ot 530.81 ESOPHAGEAL REFLUX 03/26/2014 DEANDRE CUEVAS MD Ot 599 .0 URIN TRACT INFECTION NOS 03/26/2014 DEANDRE CUEVAS MD Ot V15.81 HX OF PAST NONCOMPLIANCE 03/26/2014 DEANDRE CUEVAS MD Ot V85.32 BODY MASS INDEX 32.0-32.9, ADULT 05/18/2014 BAH DO, COCO K 381.01 ACUTE SEROUS OTITIS MEDIA 05/18/2014 OC HAMMERER TAB, ALBIN L 381 .01 ACUTE SEROUS OTITIS MEDIA 05/18/2014 SABRINA BAH DOA K 381.01 ACUTE SEROUS OTITIS MEDIA 05/18/2014 DEANDRE CUEVAS MD 381 .01 ACUTE SEROUS OTITIS MEDIA 05/18/2014 MADL HAMMERER TAB, ALBIN L 381 .01 ACUTE SEROUS OTITIS MEDIA 05/18/2014 MADL HAMMERER TAB, ALBIN L 381 .01 ACUTE SEROUS OTITIS MEDIA 05/18/2014 SABRINA BAH DOA K 381.01 ACUTE SEROUS OTITIS MEDIA 05/20/2014 SABRINA BAH DOA K 357.2 DIABETIC PERPHERAL NEUROPATHY 05/20/2014 OC HAMMERER TAB, ALBIN L 357 .2 DIABETIC PERPHERAL NEUROPATHY 05/20/2014 SABRINA BAH DOA K 357.2 DIABETIC PERPHERAL NEUROPATHY 05/20/2014 DEANDRE CUEVAS MD 357 .2 DIABETIC PERPHERAL NEUROPATHY 05/20/2014 OC HAMMERER TAB, ALBIN L 357 .2 DIABETIC PERPHERAL NEUROPATHY 05/20/2014 OC HAMMERER TAB, ALBIN L 357 .2 DIABETIC PERPHERAL NEUROPATHY 05/20/2014 COCO BAH DO [...] 784.0 HEADACHE 07/01/2014 OC RIVERA, ALBIN L 599 .0 URINARY TRACT INFECTION 07/01/2014 MADL HAMMERER TAB, ALBIN L 729 .5 PAIN IN LIMB 07/01/2014 SABRINA BAH DOA K 599.0 URINARY TRACT INFECTION 07/01/2014 BAH DO, COCO K 729.5 PAIN IN LIMB 07/01/2014 DEANDRE CUEVAS MD N 599 .0 URINARY TRACT INFECTION 07/01/2014 DEANDRE CUEVAS MD 729 .5 PAIN IN LIMB 07/01/2014 MADL HAMMERER TAB, ALBIN L 599 .0 URINARY TRACT INFECTION 07/01/2014 MADL HAMMERER TAB, ALBIN L 729 .5 PAIN IN LIMB 07/01/2014 MADL HAMMERER TAB, ALBIN L 599 .0 URINARY TRACT INFECTION 07/01/2014 MADL HAMMERER TAB, ALBIN L 729 .5 PAIN IN LIMB 07/01/2014 BAH DO COCO K 599.0 URINARY TRACT INFECTION 07/01/2014 SABRINA BAH DOA K 729.5 PAIN IN LIMB 07/23/2014 Ot 611.72 07/24/2014 DEANDRE CUEVAS MD Ot 250.62 DIAB W NEURO MANIFEST, TYPE II OR UNSPEC 07/24/2014 DEANDRE CUEVAS MD Ot 276 .1 HYPOSMOLALITY 07/24/2014 DEANDRE CUEVAS MD Ot 305 .1 TOBACCO USE DISORDER 07/24/2014 DEANDRE CUEVAS MD Ot 357 .2 NEUROPATHY IN DIABETES 07/24/2014 DEANDRE CUEVAS MD Ot 250.62 07/24/2014 DEANDRE CUEVAS MD Ot 276 .1 07/24/2014 DEANDRE CUEVAS MD Ot 305 .1 07/24/2014 DEANDRE CUEVAS MD Ot 357 .2 08/26/2014 DEANDRE CUEVAS MD N 536 .8 DYSPEPSIA AND OTHER SPECIFIED DISORDERS OF FUNCTION OF STOMACH 08/26/2014 TONY RENAE APRNNYA L 536 .8 DYSPEPSIA AND OTHER SPECIFIED DISORDERS OF FUNCTION OF STOMACH 08/26/2014 AIMEE RENAE APRNA L 536 .8 DYSPEPSIA AND OTHER SPECIFIED DISORDERS OF FUNCTION OF STOMACH 08/26/2014 NIURKA SINGH COCO K 536.8 DYSPEPSIA AND OTHER SPECIFIED DISORDERS OF FUNCTION OF STOMACH 09/30/2014 MADTONY Alanis APRNNYA L 110 .4 DERMATOPHYTOSIS OF FOOT 09/30/2014 ROMAN RENAE APRNWNYA L 780 .79 OTHER MALAISE AND FATIGUE 09/30/2014 OC PASTORN, ALBIN L 110 .4 DERMATOPHYTOSIS OF FOOT 09/30/2014 OC PASTORN, ALBIN L 780 .79 OTHER MALAISE AND FATIGUE 09/30/2014 BAH DO COCO K 110.4 DERMATOPHYTOSIS OF FOOT 09/30/2014 BAH DO COCO K 780.79 OTHER MALAISE AND FATIGUE 10/11/2014 OC PASTORN, ALBIN L 250 .42 DIABETES W/ NEPHROPATHY, TYPE 2 - UNCONTROLLED 10/11/2014 CALLIEL HAMMERER TAB, ALBIN L 250 .42 DIABETES W/ NEPHROPATHY, TYPE 2 - UNCONTROLLED 10/11/2014 BAH DO COCO K 250.42 DIABETES W/ NEPHROPATHY, TYPE 2 - UNCONTROLLED 10/28/2014 CALILEL HAMMERER TAB, ALBIN L 250 .80 DIABETES WITH OTHER SPECIFIED MANIFESTATIONS TYPE II OR UNSPECIFIED TYPE NOT STATED UNCONTROLLED 10/28/2014 OC PASTORJefe ALBIN L 250 .80 DIABETES WITH OTHER SPECIFIED MANIFESTATIONS TYPE II OR UNSPECIFIED TYPE NOT STATED UNCONTROLLED 10/28/2014 BAH DO COCO K 250.80 DIABETES WITH OTHER SPECIFIED MANIFESTATIONS TYPE II OR UNSPECIFIED TYPE NOT STATED UNCONTROLLED 11/12/2014 Ot 272.4 11/12/2014 Ot 305.1 11/12/2014 Ot 401.9 11/12/2014 Ot 786.50 11/17/2014 OC PASTORJefe ALBIN L 789 .00 ABDOMINAL PAIN UNSPECIFIED SITE 11/17/2014 BAH DO COCO K 789.00 ABDOMINAL PAIN UNSPECIFIED SITE 12/09/2014 CALLIEAnnabelle ALBIN L PLANT CLERK Ot 571 .8 12/09/2014 MADAnnabelle, ALBIN L PLANT CLERK Ot 592 .0 03/01/2015 LEANN CONTRERAS Ot 110.4 DERMATOPHYTOSIS OF [...] V58.69 OTH MED,LT,CURRENT USE 04/08/2015 BERT JASON HAMMERER TAB Ot 611.71 07/29/2015 Ot 611.72 07/29/2015 Ot 272.4 07/29/2015 Ot 305.1 07/29/2015 Ot 401.9 07/29/2015 Ot 786.50 07/29/2015 ALBIN RENAE PLANT CLERK Ot 571 .8 07/29/2015 ALBIN RENAE PLANT CLERK Ot 592 .0 07/29/2015 BERT JASON APRN Ot 611.71 08/18/2015 ALBIN RENAE PLANT CLERK Ot M79.662 08/30/2015 ALBIN RENAE PLANT CLERK Ot M79.662 12/09/2015 MANISHA OLIVIA MD Ot [...] ULCER OF BUTTOCK [place] 04/18/2017 Ot 272.4 HYPE RLIPIDEMIA NEC/NOS 04/18/2017 Ot 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 04/18/2017 Ot 401.9 HYPE RTENSION NOS 04/18/[address] PAIN NOS 04/18/2017 ALBIN RENAE PLANT CLERK Ot 571 .8 CHRONIC LIVER DIS NEC 04/18/2017 ALBIN RENAE PLANT CLERK Ot 592 .0 CALCULUS OF KIDNEY 04/18/2017 BERT JASON HAMMERER TAB Ot 611.71 MASTODYNIA 04/18/2017 MADROMAN AlanisALBIN Annabelle PLANT CLERK Ot M79.662 PAIN IN LEFT LOWER LEG 04/18/2017 CHETEDWIN Aguiar PLANT CLERK Ot E11.21 TYPE 2 DIABETES MELLITUS WITH DIABETIC N 04/18/2017 CHET, EDWIN PLANT CLERK Ot E11.65 TYPE 2 DIABETES MELLITUS WITH HYPERGLYCE 04/18/2017 CHET, EDWIN PLANT CLERK Ot F17.210 NICOTINE DEPENDENCE, CIGARETTES, UNCOMPL 04/18/2017 CHET, EDWIN PLANT CLERK Ot F32.9 MAJOR DEPRESSIVE DISORDER, SINGLE EPISOD 04/18/2017 CHET, EDWIN PLANT CLERK Ot F41.9 ANXIETY DISORDER, UNSPECIFIED 04/18/2017 CHET, EDWIN PLANT CLERK Ot I10 ESSENTIAL (PRIMARY) HYPERTENSION 04/18/2017 CHET, EDWIN PLANT CLERK Ot J45.909 UNSPECIFIED ASTHMA, UNCOMPLICATED 04/18/2017 CHET, EDWIN PLANT CLERK Ot K21.9 GASTRO-ESOPHAGEAL REFLUX DISEASE WITHOUT 04/18/2017 CHET, EDWIN PLANT CLERK Ot M19.90 UNSPECIFIED OSTEOARTHRITIS, UNSPECIFIED 04/18/2017 CHET, EDWIN PLANT CLERK Ot M25.562 PAIN IN LEFT KNEE 04/18/2017 CHETEDWIN Aguiar PLANT CLERK Ot W19.XXXA UNSPECIFIED FALL, INITIAL ENCOUNTER 04/18/2017 EDWIN ROSENBERG PLANT CLERK Ot Z79.4 PIGMENT AND LACQUER MIXER (CURRENT) USE OF INSULIN 04/18/2017 CHET, EDWIN PLANT CLERK Ot Z87.19 PERSONAL HISTORY OF OTHER DISEASES OF TH 04/18/2017 CHET, EDWIN PLANT CLERK Ot Z90.49 ACQUIRED ABSENCE OF OTHER SPECIFIED PART 04/18/2017 CHETEDWIN Aguiar PLANT CLERK Ot Z90.711 ACQUIRED ABSENCE OF UTERUS WITH REMAININ 04/18/2017 CHET, EDWIN PLANT CLERK Ot Z91.81 HISTORY OF FALLING 04/18/2017 Ot 272.4 HYPE RLIPIDEMIA NEC/NOS 04/18/2017 Ot 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 04/18/2017 Ot 401.9 HYPE RTENSION NOS 04/18/[address] PAIN NOS 04/18/2017 MADALBIN Alanis PLANT CLERK Ot 571 .8 CHRONIC LIVER DIS NEC 04/18/2017 ALBIN RENAE PLANT CLERK Ot 592 .0 CALCULUS OF KIDNEY 04/18/2017 BERT JASON APRN Ot 611.71 MASTODYNIA 04/18/2017 ALBIN RENAE PLANT CLERK Ot M79.662 PAIN IN LEFT LOWER LEG 04/22/2017 EDWIN ROSENBERGP Ot E11.21 TYPE 2 DIABETES MELLITUS WITH DIABETIC N 04/22/2017 CHETEDWIN Aguiar PLANT CLERK Ot E11.65 TYPE 2 DIABETES MELLITUS WITH HYPERGLYCE 04/22/2017 CHETEDWIN Aguiar PLANT CLERK Ot F17.210 NICOTINE DEPENDENCE, CIGARETTES, UNCOMPL 04/22/2017 CHETEDWIN Aguiar PLANT CLERK Ot F32.9 MAJOR DEPRESSIVE DISORDER, SINGLE EPISOD 04/22/2017 CHET, EDWIN PLANT CLERK Ot F41.9 ANXIETY DISORDER, UNSPECIFIED 04/22/2017 CHETEDWIN AguiarP Ot I10 ESSENTIAL (PRIMARY) HYPERTENSION 04/22/2017 EDWIN ROSENBERGP Ot J45.909 UNSPECIFIED ASTHMA, UNCOMPLICATED 04/22/2017 CHETEDWIN AguiarP Ot K21.9 GASTRO-ESOPHAGEAL REFLUX DISEASE WITHOUT 04/22/2017 CHET, EDWIN PLANT CLERK Ot M19.90 UNSPECIFIED OSTEOARTHRITIS, UNSPECIFIED 04/22/2017 CHETEDWIN Aguiar PLANT CLERK Ot M25.562 PAIN IN LEFT KNEE 04/22/2017 CHETEDWIN Aguiar PLANT CLERK Ot W19.XXXA UNSPECIFIED FALL, INITIAL ENCOUNTER 04/22/2017 EDWIN ROSENBERGP Ot Z79.4 PIGMENT AND LACQUER MIXER (CURRENT) USE OF INSULIN 04/22/2017 EDWIN ROSENBERG PLANT CLERK Ot Z87.19 PERSONAL HISTORY OF OTHER DISEASES OF TH 04/22/2017 EDWIN ROSENBERG PLANT CLERK Ot Z90.49 ACQUIRED ABSENCE OF OTHER SPECIFIED PART 04/22/2017 EDWIN ROSENBERG PLANT CLERK Ot Z90.711 ACQUIRED ABSENCE OF UTERUS WITH REMAININ 04/22/2017 CHET EDWIN PLANT CLERK Ot Z91.81 HISTORY OF FALLING 06/26/2017 HONEY SEPULVEDA MD Ot E11.40 TYPE 2 DIABETES MELLITUS WITH DIABETIC N 06/26/2017 HONEY SEPULVEDA MD Ot E11.65 TYPE 2 DIABETES MELLITUS WITH HYPERGLYCE 06/26/2017 HONEY SEPULVEDA MD Ot F17.210 NICOTINE DEPENDENCE, CIGARETTES, UNCOMPL 06/26/2017 HONEY SEPULVEDA MD Ot F32 .9 MAJOR DEPRESSIVE DISORDER, SINGLE EPISOD 06/26/2017 HONEY SEPULVEDA MD Ot F41 .9 ANXIETY DISORDER, UNSPECIFIED 06/26/2017 HONEY SEPULVEDA MD Ot H93.19 TINNITUS, UNSPECIFIED EAR 06/26/2017 HONEY SEPULVEDA MD Ot I11 .0 HYPERTENSIVE HEART DISEASE WITH HEART FA 06/26/2017 HONEY SEPULVEDA MD Ot I50 .9 HEART FAILURE, UNSPECIFIED 06/26/2017 HONEY SEPULVEDA MD Ot J45.909 UNSPECIFIED ASTHMA, UNCOMPLICATED 06/26/2017 HONEY SEPULVEDA MD, Ot K21 .9 GASTRO-ESOPHAGEAL REFLUX DISEASE WITHOUT 06/26/2017 HONEY SEPULVEDA MD Ot M19.91 PRIMARY OSTEOARTHRITIS, UNSPECIFIED SITE 06/26/2017 HONEY SEPULVEDA MD Ot M62.81 MUSCLE WEAKNESS (GENERALIZED) 06/26/2017 HONEY SEPULVEDA MD Ot R40 .0 SOMNOLENCE 06/26/2017 HONEY SEPULVEDA MD Ot R41 .0 DISORIENTATION, UNSPECIFIED 06/26/2017 HONEY SEPULVEDA MD Ot R42 DIZZINESS AND GIDDINESS 06/26/2017 HONEY SEPULVEDA MD Ot R47.81 SLURRED SPEECH 06/26/2017 HONEY SEPULVEDA MD Ot Z79.01 PIGMENT AND LACQUER MIXER (CURRENT) USE OF ANTICOAGULANT 06/26/2017 HONEY SEPULVEDA MD Ot Z79 .4 PIGMENT AND LACQUER MIXER (CURRENT) USE OF INSULIN 06/26/2017 HONEY SEPULVEDA [...] CIGARETTES, UNCOMPL 06/26/2017 HONEY SEPULVEDA MD Ot F32 .9 MAJOR DEPRESSIVE DISORDER, SINGLE EPISOD 06/26/2017 HONEY SEPULVEDA MD Ot F41 .9 ANXIETY DISORDER, UNSPECIFIED 06/26/2017 HONEY SEPULVEDA MD Ot H93.19 TINNITUS, UNSPECIFIED EAR 06/26/2017 HONEY SEPULVEDA MD Ot I11 .0 HYPERTENSIVE HEART DISEASE WITH HEART FA 06/26/2017 HONEY SEPULVEDA MD, Ot I50 .9 HEART FAILURE, UNSPECIFIED 06/26/2017 HONEY SEPULVEDA MD, Ot J45.909 UNSPECIFIED ASTHMA, UNCOMPLICATED 06/26/2017 HONEY SEPULVEDA MD, Ot K21 .9 GASTRO-ESOPHAGEAL REFLUX DISEASE WITHOUT 06/26/2017 HONEY SEPULVEDA MD Ot M19.91 PRIMARY OSTEOARTHRITIS, UNSPECIFIED SITE 06/26/2017 HONEY SEPULVEDA MD Ot M62.81 MUSCLE WEAKNESS (GENERALIZED) 06/26/2017 HONEY SEPULVEDA MD, Ot R40 .0 SOMNOLENCE 06/26/2017 HONEY SEPULVEDA MD, Ot R41 .0 DISORIENTATION, UNSPECIFIED 06/26/2017 HONEY SEPULVEDA MD, Ot R42 DIZZINESS AND GIDDINESS 06/26/2017 HONEY SEPULVEDA MD, Ot R47.81 SLURRED SPEECH 06/26/2017 HONEY SEPULVEDA MD, Ot Z79.01 SENIOR LIVING (CURRENT) USE OF ANTICOAGULANT 06/26/2017 HONEY SEPULVEDA MD Ot Z79 .4 PIGMENT AND LACQUER MIXER (CURRENT) USE OF INSULIN 06/26/2017 HONEY SEPULVEDA [...] CIGARETTES, UNCOMPL 06/26/2017 HONEY SEPULVEDA MD Ot F32 .9 MAJOR DEPRESSIVE DISORDER, SINGLE EPISOD 06/26/2017 HONEY SEPULVEDA MD, Ot F41 .9 ANXIETY DISORDER, UNSPECIFIED 06/26/2017 HONEY SEPULVEDA MD Ot H93.19 TINNITUS, UNSPECIFIED EAR 06/26/2017 HONEY SEPULVEDA MD Ot I11 .0 HYPERTENSIVE HEART DISEASE WITH HEART FA 06/26/2017 HONEY SEPULVEDA MD Ot I50 .9 HEART FAILURE, UNSPECIFIED 06/26/2017 HONEY SEPULVEDA MD, Ot J45.909 UNSPECIFIED ASTHMA, UNCOMPLICATED 06/26/2017 HONEY SEPULVEDA MD, Ot K21 .9 GASTRO-ESOPHAGEAL REFLUX DISEASE WITHOUT 06/26/2017 HONEY SEPULVEDA MD, Ot M19.91 PRIMARY OSTEOARTHRITIS, UNSPECIFIED SITE 06/26/2017 HONEY SEPULVEDA MD Ot M62.81 MUSCLE WEAKNESS (GENERALIZED) 06/26/2017 HONEY SEPULVEDA MD Ot R40 .0 SOMNOLENCE 06/26/2017 HONEY SEPULVEDA MD, Ot R41 .0 DISORIENTATION, UNSPECIFIED 06/26/2017 HONEY SEPULVEDA MD, Ot R42 DIZZINESS AND GIDDINESS 06/26/2017 HONEY SEPULVEDA MD, Ot R47.81 SLURRED SPEECH 06/26/2017 HONEY SEPULVEDA MD, Ot Z79.01 SENIOR LIVING (CURRENT) USE OF ANTICOAGULANT 06/26/2017 HONEY SEPULVEDA MD, Ot Z79 .4 SENIOR LIVING (CURRENT) USE OF INSULIN 06/26/2017 HONEY SEPULVEDA MD, Ot Z87.19 PERSONAL HISTORY OF OTHER DISEASES OF TH 06/26/2017 HONEY SEPULVEDA MD, Ot Z87.440 PERSONAL HISTORY OF URINARY (TRACT) INFE 06/27/2017 HONEY SEPULVEDA MD Ot E11.40 TYPE 2 DIABETES MELLITUS WITH DIABETIC N 06/27/2017 HONEY SEPULVEDA MD Ot E11.65 TYPE 2 DIABETES MELLITUS WITH HYPERGLYCE 06/27/2017 HONEY SEPULVEDA MD Ot F17.210 NICOTINE DEPENDENCE, CIGARETTES, UNCOMPL 06/27/2017 HONEY SEPULVEDA MD Ot F32 .9 MAJOR DEPRESSIVE DISORDER, SINGLE EPISOD 06/27/2017 HONEY SEPULVEDA MD Ot F41 .9 ANXIETY DISORDER, UNSPECIFIED 06/27/2017 HONEY SEPULVEDA MD Ot H93.19 TINNITUS, UNSPECIFIED EAR 06/27/2017 HONEY SEPULVEDA MD Ot I11 .0 HYPERTENSIVE HEART DISEASE WITH HEART FA 06/27/2017 HONEY SEPULVEDA MD Ot I50 .9 HEART FAILURE, UNSPECIFIED 06/27/2017 HONEY SEPULVEDA MD Ot J45.909 UNSPECIFIED ASTHMA, UNCOMPLICATED 06/27/2017 HONEY SEPULVEDA MD Ot K21 .9 GASTRO-ESOPHAGEAL REFLUX DISEASE WITHOUT 06/27/2017 HONEY SEPULVEDA MD Ot M19.91 PRIMARY OSTEOARTHRITIS, UNSPECIFIED SITE 06/27/2017 HONEY SEPULVEDA MD Ot M62.81 MUSCLE WEAKNESS (GENERALIZED) 06/27/2017 HONEY SEPULVEDA MD Ot R40 .0 SOMNOLENCE 06/27/2017 HONEY SEPULVEDA MD, Ot R41 .0 DISORIENTATION, UNSPECIFIED 06/27/2017 HONEY SEPULVEDA MD Ot R42 DIZZINESS AND GIDDINESS 06/27/2017 HONEY SEPULVEDA MD Ot R47.81 SLURRED SPEECH 06/27/2017 HONEY SEPULVEDA MD, Ot Z79.01 SENIOR LIVING (CURRENT) USE OF ANTICOAGULANT 06/27/2017 HONEY SEPULVEDA MD, Ot Z79 .4 PIGMENT AND LACQUER MIXER (CURRENT) USE OF INSULIN 06/27/2017 HONEY SEPULVEDA MD, Ot Z87.19 PERSONAL HISTORY OF OTHER DISEASES OF TH 06/27/2017 HONEY SEPULVEDA MD Ot Z87.440 PERSONAL HISTORY OF URINARY (TRACT) INFE 06/27/2017 HONEY SEPULVEDA MD Ot E11.40 TYPE 2 DIABETES MELLITUS WITH DIABETIC N 06/27/2017 HONEY SEPULVEDA MD Ot E11.65 TYPE 2 DIABETES MELLITUS WITH HYPERGLYCE 06/27/2017 HONEY SEPULVEDA MD Ot E78.00 PURE HYPERCHOLESTEROLEMIA, UNSPECIFIED 06/27/2017 HONEY SEPULVEDA MD Ot F17.210 NICOTINE DEPENDENCE, CIGARETTES, UNCOMPL 06/27/2017 HONEY SEPULVEDA MD Ot F32 .9 MAJOR DEPRESSIVE DISORDER, SINGLE EPISOD 06/27/2017 HONEY SEPULVEDA MD Ot F41 .9 ANXIETY DISORDER, UNSPECIFIED 06/27/2017 HONEY SEPULVEDA MD Ot G89.29 OTHER CHRONIC PAIN 06/27/2017 HONEY SEPULVEDA MD Ot H93.19 TINNITUS, UNSPECIFIED EAR 06/27/2017 HONEY SEPULVEDA MD Ot I10 ESSENTIAL (PRIMARY) HYPERTENSION 06/27/2017 HONEY SEPULVEDA MD Ot I63 .9 CEREBRAL INFARCTION, UNSPECIFIED 06/27/2017 HONEY SEPULVEDA MD, Ot J44 .9 CHRONIC OBSTRUCTIVE PULMONARY DISEASE, U 06/27/2017 HONEY SEPULVEDA MD Ot J45.909 UNSPECIFIED ASTHMA, UNCOMPLICATED 06/27/2017 HONEY SEPULVEDA MD Ot K21 .9 GASTRO-ESOPHAGEAL REFLUX DISEASE WITHOUT 06/27/2017 HONEY SEPULVEDA MD, Ot M19.91 PRIMARY OSTEOARTHRITIS, UNSPECIFIED SITE 06/27/2017 HONEY SEPULVEDA MD, Ot M54 .9 DORSALGIA, UNSPECIFIED 06/27/2017 HONEY SEPULVEDA MD Ot M62.81 MUSCLE WEAKNESS (GENERALIZED) 06/27/2017 HONEY SEPULVEDA MD Ot R41 .0 DISORIENTATION, UNSPECIFIED 06/27/2017 HONEY SEPULVEDA MD, Ot R42 DIZZINESS AND GIDDINESS 06/27/2017 HONEY SEPULVEDA MD, Ot R47.81 SLURRED SPEECH 06/27/2017 HONEY SEPULVEDA MD, Ot Z79.01 PIGMENT AND LACQUER MIXER (CURRENT) USE OF ANTICOAGULANT 06/27/2017 HONEY SEPULVEDA MD Ot Z79 .4 PIGMENT AND LACQUER MIXER (CURRENT) USE OF INSULIN 06/27/2017 HONEY SEPULVEDA MD Ot Z87.19 PERSONAL HISTORY OF OTHER DISEASES OF TH 06/27/2017 HONEY SEPULVEDA MD, Ot Z87.440 PERSONAL HISTORY OF URINARY (TRACT) INFE 06/27/2017 HONEY SEPULVEDA MD Ot Z99.81 DEPENDENCE ON SUPPLEMENTAL OXYGEN 07/02/2017 Alan BAILEY MD Ot I50 .9 HEART FAILURE, UNSPECIFIED 07/02/2017 LEO MALIN, Alan GARCIA Ot Z53.29 PROC/TRTMT NOT CRD OUT BEC PT DECISION F 11/01/2017 Alan BAILEY MD Ot E13 .9 OTHER SPECIFIED DIABETES MELLITUS WITHOU 11/01/2017 LEO MALIN, Alan GARCIA Ot E78 .2 MIXED HYPERLIPIDEMIA 11/01/2017 LEO MALIN, Alan GARCIA Ot I10 ESSENTIAL (PRIMARY) HYPERTENSION 11/01/2017 LEO MALIN, Alan GARCIA Ot R06.00 DYSPNEA, UNSPECIFIED 11/01/2017 Alan BAILEY MD Ot R07 .9 CHEST PAIN, UNSPECIFIED 11/05/2017 Ot 272.4 HYPE RLIPIDEMIA NEC/NOS 11/05/2017 Ot 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 11/05/2017 Ot 401.9 HYPE RTENSION NOS 11/05/[address] PAIN NOS 11/05/2017 ALBIN RENAE PLANT CLERK Ot 571 .8 CHRONIC LIVER DIS NEC 11/05/2017 ALBIN RENAE PLANT CLERK Ot 592 .0 CALCULUS OF KIDNEY 11/05/2017 BERT JASON HAMMERER TAB Ot 611.71 MASTODYNIA 11/05/2017 ALBIN RENAE PLANT CLERK Ot M79.662 PAIN IN LEFT LOWER LEG 11/05/2017 Alan BAILEY MD Ot I50 .9 HEART FAILURE, UNSPECIFIED 11/05/2017 Alan BAILEY MD Ot Z53.29 PROC/TRTMT NOT CRD OUT BEC PT DECISION F 11/05/2017 Alan BAILEY MD Ot E13 .9 OTHER SPECIFIED DIABETES MELLITUS WITHOU 11/05/2017 Alan BAILEY MD Ot E78 .2 MIXED HYPERLIPIDEMIA 11/05/2017 Alan BAILEY MD Ot I10 ESSENTIAL (PRIMARY) HYPERTENSION 11/05/2017 Alan BAILEY MD Ot R06.00 DYSPNEA, UNSPECIFIED 11/05/2017 Alan BAILEY MD Ot R07 .9 CHEST PAIN, UNSPECIFIED 11/06/2017 Alan BAILEY MD Ot E13 .9 OTHER SPECIFIED DIABETES MELLITUS WITHOU 11/06/2017 Alan BAILEY MD Ot E78 .2 MIXED HYPERLIPIDEMIA 11/06/2017 Alan BAILEY MD Ot I10 ESSENTIAL (PRIMARY) HYPERTENSION 11/06/2017 Alan BAILEY MD Ot R06.00 DYSPNEA, UNSPECIFIED 11/06/2017 Alan BAILEY MD Ot R07 .9 CHEST PAIN, UNSPECIFIED 11/07/2017 Alan BAILEY MD Ot E11.40 TYPE 2 DIABETES MELLITUS WITH DIABETIC N 11/07/2017 Alan BAILEY MD Ot E66.01 MORBID (SEVERE) OBESITY DUE TO EXCESS CA 11/07/2017 Alan BAILEY MD Ot E78 .2 MIXED HYPERLIPIDEMIA 11/07/2017 Alan BAILEY MD Ot F17.210 NICOTINE DEPENDENCE, CIGARETTES, UNCOMPL 11/07/2017 Alan BAILEY MD Ot F32 .9 MAJOR DEPRESSIVE DISORDER, SINGLE EPISOD 11/07/2017 Alan BAILEY MD Ot I10 ESSENTIAL (PRIMARY) HYPERTENSION 11/07/2017 Alan BAILEY MD, Ot I25.10 ATHSCL HEART DISEASE OF [place] CORONARY 11/07/2017 Alan BAILEY MD, Ot J45.909 UNSPECIFIED ASTHMA, UNCOMPLICATED 11/07/2017 Alan BAILEY MD, Ot M19.91 PRIMARY OSTEOARTHRITIS, UNSPECIFIED SITE 11/07/2017 Alan BAILEY MD, Ot R06.02 SHORTNESS OF BREATH 11/07/2017 Alan BAILEY MD, Ot R07 .9 CHEST PAIN, UNSPECIFIED 11/07/2017 Alan BAILEY MD Ot R94.39 ABNORMAL RESULT OF OTHER CARDIOVASCULAR 11/07/2017 Alan BAILEY MD Ot Z68.41 BODY MASS INDEX (BMI) 40.0-44.9, ADULT 11/07/2017 Alan BAILEY MD Ot Z79.01 SENIOR LIVING (CURRENT) USE OF ANTICOAGULANT 11/07/2017 Alan BAILEY MD Ot Z79 .4 SENIOR LIVING (CURRENT) USE OF INSULIN 11/07/2017 Alan BAILEY MD, Ot Z79.899 OTHER SENIOR LIVING (CURRENT) DRUG THERAPY 11/07/2017 Alan BAILEY MD Ot Z86.711 PERSONAL HISTORY OF PULMONARY EMBOLISM 11/07/2017 Alan BAILEY MD Ot Z86.73 PRSNL HX OF TIA (TIA), AND CEREB INFRC W 11/08/2017 Alan BAILEY MD Ot E11.40 TYPE 2 DIABETES MELLITUS WITH DIABETIC N 11/08/2017 Alan BAILEY MD Ot E66.01 MORBID (SEVERE) OBESITY DUE TO EXCESS CA 11/08/2017 Alan ABILEY MD Ot E78 .2 MIXED HYPERLIPIDEMIA 11/08/2017 Alan BAILEY MD Ot F17.210 NICOTINE DEPENDENCE, CIGARETTES, UNCOMPL 11/08/2017 Alan BAILEY MD, Ot F32 .9 MAJOR DEPRESSIVE DISORDER, SINGLE EPISOD 11/08/2017 Alan BAILEY MD Ot I10 ESSENTIAL (PRIMARY) HYPERTENSION 11/08/2017 Alan BAILEY MD, Ot I25.10 ATHSCL HEART DISEASE OF [place] CORONARY 11/08/2017 Alan BAILEY MD, Ot J45.909 UNSPECIFIED ASTHMA, UNCOMPLICATED 11/08/2017 Alan BAILEY MD Ot M19.91 PRIMARY OSTEOARTHRITIS, UNSPECIFIED SITE 11/08/2017 Alan BAILEY MD Ot R06.02 SHORTNESS OF BREATH 11/08/2017 Alan BAILEY MD, Ot R07 .9 CHEST PAIN, UNSPECIFIED 11/08/2017 lAan BAILEY MD Ot R94.39 ABNORMAL RESULT OF OTHER CARDIOVASCULAR 11/08/2017 Alan BAILEY MD Ot Z68.41 BODY MASS INDEX (BMI) 40.0-44.9, ADULT 11/08/2017 Alan BAILEY MD Ot Z79.01 PIGMENT AND LACQUER MIXER (CURRENT) USE OF ANTICOAGULANT 11/08/2017 Alan BAILEY MD Ot Z79 .4 PIGMENT AND LACQUER MIXER (CURRENT) USE OF INSULIN 11/08/2017 Alan BAILEY MD, Ot Z79.899 OTHER PIGMENT AND LACQUER MIXER (CURRENT) DRUG THERAPY 11/08/2017 Alan BAILEY MD, Ot Z86.711 PERSONAL HISTORY OF PULMONARY EMBOLISM 11/08/2017 Alan BAILEY MD, Ot Z86.73 PRSNL HX OF TIA (TIA), AND CEREB INFRC W 11/29/2017 lAan BAILEY MD Ot E13 .9 OTHER SPECIFIED DIABETES MELLITUS WITHOU 11/29/2017 Alan BAILEY MD Ot E78 .2 MIXED HYPERLIPIDEMIA 11/29/2017 Alan BAILEY MD Ot I10 ESSENTIAL (PRIMARY) HYPERTENSION 11/29/2017 Alan BAILEY MD Ot R06.00 DYSPNEA, UNSPECIFIED 11/29/2017 Alan BAILEY MD Ot R07 .9 CHEST PAIN, UNSPECIFIED 09/22/2018 Ot 272.4 HYPE RLIPIDEMIA NEC/NOS 09/22/2018 Ot 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 09/22/2018 Ot 401.9 HYPE RTENSION NOS 09/22/[address] PAIN NOS 09/22/2018 ALBIN RENAE PLANT CLERK Ot 571 .8 CHRONIC LIVER DIS NEC 09/22/2018 ALBIN RENAE PLANT CLERK Ot 592 .0 CALCULUS OF KIDNEY 09/22/2018 BERT JASON HAMMERER TAB Ot 611.71 MASTODYNIA 09/22/2018 ALBIN RENAE PL[employer] CLERK Ot M79.662 PAIN IN LEFT LOWER LEG 09/22/2018 LEO MALIN, Alan GARCIA Ot I50 .9 HEART FAILURE, UNSPECIFIED 09/22/2018 Alan BAILEY MD Ot Z53.29 PROC/TRTMT NOT CRD OUT BEC PT DECISION F 09/22/2018 Alan BAILEY MD Ot E13 .9 OTHER SPECIFIED DIABETES MELLITUS WITHOU 09/22/2018 Alan BAILEY MD Ot E78 .2 MIXED HYPERLIPIDEMIA 09/22/2018 Alan BAILEY MD Ot I10 ESSENTIAL (PRIMARY) HYPERTENSION 09/22/2018 Alan BAILEY MD Ot R06.00 DYSPNEA, UNSPECIFIED 09/22/2018 Alan BAILEY MD Ot R07 .9 CHEST PAIN, UNSPECIFIED 09/22/2018 Alan BAILEY MD Ot E13 .9 OTHER SPECIFIED DIABETES MELLITUS WITHOU 09/22/2018 Alan BAILEY MD Ot E78 .2 MIXED HYPERLIPIDEMIA 09/22/2018 Alan BAILEY MD Ot I10 ESSENTIAL (PRIMARY) HYPERTENSION 09/22/2018 Alan BAILEY MD Ot R06.00 DYSPNEA, UNSPECIFIED 09/22/2018 Alan BAILEY MD Ot R07 .9 CHEST PAIN, UNSPECIFIED 09/25/2018 SUHAS ALLRED MD Ot A08. 4 VIRAL INTESTINAL INFECTION, UNSPECIFIED 09/25/2018 SUHAS ALLRED MD Ot A41. 9 SEPSIS, UNSPECIFIED ORGANISM 09/25/2018 SUHAS ALLRED MD Ot E11. 42 TYPE 2 DIABETES MELLITUS WITH DIABETIC P 09/25/2018 SUHAS ALLRED MD, Ot E78. 00 PURE HYPERCHOLESTEROLEMIA, UNSPECIFIED 09/25/2018 SUHAS ALLRED MD Ot F17.210 NICOTINE DEPENDENCE, CIGARETTES, UNCOMPL 09/25/2018 SUHAS ALLRED MD Ot F32. 9 MAJOR DEPRESSIVE DISORDER, SINGLE EPISOD 09/25/2018 SUHAS ALLRED MD, Ot F41. 9 ANXIETY DISORDER, UNSPECIFIED 09/25/2018 SUHAS ALLRED MD, Ot H93. 19 TINNITUS, UNSPECIFIED EAR 09/25/2018 SUHAS ALLRED MD Ot I10 ESSENTIAL (PRIMARY) HYPERTENSION 09/25/2018 SUHAS ALLRED MD, Ot J44. 9 CHRONIC OBSTRUCTIVE PULMONARY DISEASE, U 09/25/2018 SUHAS ALLRED MD, Ot K21. 9 GASTRO-ESOPHAGEAL REFLUX DISEASE WITHOUT 09/25/2018 SUHAS ALLRED MD, Ot M19. 91 PRIMARY OSTEOARTHRITIS, UNSPECIFIED SITE 09/25/2018 SUHAS ALLRED MD, Ot N30. 01 ACUTE CYSTITIS WITH HEMATURIA 09/25/2018 SUHAS ALLRED MD Ot N63. 20 UNSPECIFIED LUMP IN THE LEFT BREAST, UNS 09/25/2018 SUHAS ALLRED MD Ot Z79. 01 SENIOR LIVING (CURRENT) USE OF ANTICOAGULANT 09/25/2018 SUHAS ALLRED MD Ot Z79. 4 SENIOR LIVING (CURRENT) USE OF INSULIN 09/25/2018 SUHAS ALLRED MD Ot Z86. 19 PERSONAL HISTORY OF OTHER INFECTIOUS AND 09/25/2018 SUHAS ALLRED MD Ot Z86.711 PERSONAL HISTORY OF PULMONARY EMBOLISM 09/25/2018 SUHAS ALLRED MD Ot Z87. 19 PERSONAL HISTORY OF OTHER DISEASES OF TH 10/28/2018 SUHAS ALLRED MD Ot E11. 40 TYPE 2 DIABETES MELLITUS WITH DIABETIC N 10/28/2018 SUHAS ALLRED MD Ot E78. 00 PURE HYPERCHOLESTEROLEMIA, UNSPECIFIED 10/28/2018 SUHAS ALLRED MD Ot E86. 0 DEHYDRATION 10/28/2018 SUHAS ALLRED MD Ot F17.210 NICOTINE DEPENDENCE, CIGARETTES, UNCOMPL 10/28/2018 SUHAS ALLRED MD, Ot F32. 9 MAJOR DEPRESSIVE DISORDER, SINGLE EPISOD 10/28/2018 SUHAS ALLRED MD Ot F41. 9 ANXIETY DISORDER, UNSPECIFIED 10/28/2018 SUHAS ALLRED MD Ot I10 ESSENTIAL (PRIMARY) HYPERTENSION 10/28/2018 SUHAS ALLRED MD, Ot J44. 9 CHRONIC OBSTRUCTIVE PULMONARY DISEASE, U 10/28/2018 SUHAS ALLRED MD Ot K21. 9 GASTRO-ESOPHAGEAL REFLUX DISEASE WITHOUT 10/28/2018 SUHAS ALLRED MD Ot K52. 9 NONINFECTIVE GASTROENTERITIS AND COLITIS 10/28/2018 SUHAS ALLRED MD Ot M19. 91 PRIMARY OSTEOARTHRITIS, UNSPECIFIED SITE 10/28/2018 SUHAS ALLRED MD Ot R42 DIZZINESS AND GIDDINESS 10/28/2018 SUHAS ALLRED MD Ot Z79. 4 PIGMENT AND LACQUER MIXER (CURRENT) USE OF INSULIN 10/28/2018 SUHAS ALLRED MD Ot Z91. 81 HISTORY OF FALLING 10/28/2018 SUHAS ALLRED MD Ot E11. 40 TYPE 2 DIABETES MELLITUS WITH DIABETIC N 10/28/2018 SUHAS ALLRED MD Ot E78. 00 PURE HYPERCHOLESTEROLEMIA, UNSPECIFIED 10/28/2018 SUHAS ALLRED MD Ot E86. 0 DEHYDRATION 10/28/2018 SUHAS ALLRED MD Ot F17.210 NICOTINE DEPENDENCE, CIGARETTES, UNCOMPL 10/28/2018 SUHAS ALLRED MD Ot F32. 9 MAJOR DEPRESSIVE DISORDER, SINGLE EPISOD 10/28/2018 SUHAS ALLRED MD Ot F41. 9 ANXIETY DISORDER, UNSPECIFIED 10/28/2018 SUHAS ALLRED MD Ot I10 ESSENTIAL (PRIMARY) HYPERTENSION 10/28/2018 SUHAS ALLRED MD, Ot J44. 9 CHRONIC OBSTRUCTIVE PULMONARY DISEASE, U 10/28/2018 SUHAS ALLRED MD Ot K21. 9 GASTRO-ESOPHAGEAL REFLUX DISEASE WITHOUT 10/28/2018 SUHAS ALLRED MD Ot K52. 9 NONINFECTIVE GASTROENTERITIS AND COLITIS 10/28/2018 USHAS ALLRED MD Ot M19. 91 PRIMARY OSTEOARTHRITIS, UNSPECIFIED SITE 10/28/2018 SUHAS ALLRED MD Ot R42 DIZZINESS AND GIDDINESS 10/28/2018 SUHAS ALLRED MD Ot Z79. 4 SENIOR LIVING (CURRENT) USE OF INSULIN 10/28/2018 BRIGIDA MALIN SUHAS M Ot Z91. 81 HISTORY OF FALLING 12/10/2018 Ot 272.4 HYPE RLIPIDEMIA NEC/NOS 12/10/2018 Ot 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 12/10/2018 Ot 401.9 HYPE RTENSION NOS 12/10/[address] PAIN NOS 12/10/2018 MADL, ALBIN L PLANT CLERK Ot 571 .8 CHRONIC LIVER DIS NEC 12/10/2018 MADL, ALBIN L PLANT CLERK Ot 592 .0 CALCULUS OF KIDNEY 12/10/2018 BERT JASON A HAMMERER TAB Ot 611.71 MASTODYNIA 12/10/2018 MADTONY AlanisNYA L PLANT CLERK Ot M79.662 PAIN IN LEFT LOWER LEG 12/10/2018 Alan BAILEY MD Ot I50 .9 HEART FAILURE, UNSPECIFIED 12/10/2018 Alan BAILEY MD Ot Z53.29 PROC/TRTMT NOT CRD OUT BEC PT DECISION F 12/10/2018 Alan BAILEY MD Ot E13 .9 OTHER SPECIFIED DIABETES MELLITUS WITHOU 12/10/2018 Alan BAILEY MD Ot E78 .2 MIXED HYPERLIPIDEMIA 12/10/2018 Alan BAILEY MD Ot I10 ESSENTIAL (PRIMARY) HYPERTENSION 12/10/2018 Alan BAILEY MD Ot R06.00 DYSPNEA, UNSPECIFIED 12/10/2018 Alan BAILEY MD Ot R07 .9 CHEST PAIN, UNSPECIFIED 12/10/2018 Alan BAILEY MD Ot E13 .9 OTHER SPECIFIED DIABETES MELLITUS WITHOU 12/10/2018 Alan BAILEY MD Ot E78 .2 MIXED HYPERLIPIDEMIA 12/10/2018 Alan BAILEY MD Ot I10 ESSENTIAL (PRIMARY) HYPERTENSION 12/10/2018 Alan BAILEY MD Ot R06.00 DYSPNEA, UNSPECIFIED 12/10/2018 Alan BAILEY MD Ot R07 .9 CHEST PAIN, UNSPECIFIED 12/18/2018 OCTAVIANO MALIN, FEMI Saldana Ot D68. 9 COAGULATION DEFECT, UNSPECIFIED 12/18/2018 FEMI BRUMFIELD MD Ot E11. 40 TYPE 2 DIABETES MELLITUS WITH DIABETIC N 12/18/2018 FEMI BRUMFIELD MD Ot E78. 00 PURE HYPERCHOLESTEROLEMIA, UNSPECIFIED 12/18/2018 FEMI BRUMFIELD MD Ot F17.210 NICOTINE DEPENDENCE, CIGARETTES, UNCOMPL 12/18/2018 FEMI BRUMFIELD MD Ot F32. 9 MAJOR DEPRESSIVE DISORDER, SINGLE EPISOD 12/18/2018 FEMI BRUMFIELD MD Ot F41. 9 ANXIETY DISORDER, UNSPECIFIED 12/18/2018 FEMI BRUMFIELD MD Ot I10 ESSENTIAL (PRIMARY) HYPERTENSION 12/18/2018 FEMI BRUMFIELD MD, Ot J44. 9 CHRONIC OBSTRUCTIVE PULMONARY DISEASE, U 12/18/2018 FEMI BRUMFIELD MD, Ot K21. 9 GASTRO-ESOPHAGEAL REFLUX DISEASE WITHOUT 12/18/2018 FEMI BRUMFIELD MD Ot R40.2142 COMA SCALE, EYES OPEN, SPONTANEOUS, EMR 12/18/2018 FEMI BRUMFIELD MD Ot R40.2252 COMA SCALE, BEST VERBAL RESPONSE, ORIENT 12/18/2018 FEMI BRUMFIELD MD, Ot R40.2362 COMA SCALE, BEST MOTOR RESPONSE, OBEYS C 12/18/2018 FEMI BRUMFIELD MD Ot S00.03XA CONTUSION OF SCALP, INITIAL ENCOUNTER 12/18/2018 FEMI BRUMFIELD MD Ot S91.115A LAC W/O FB OF LEFT LESSER TOE(S) W/O DAM 12/18/2018 FEMI BRUMFIELD MD Ot W19.XXXA UNSPECIFIED FALL, INITIAL ENCOUNTER 12/18/2018 FEMI BRUMFIELD MD Ot X50.1XXA OVEREXERTION FROM PROLONGED STATIC OR AW 12/18/2018 FEMI BRUMFIELD MD Ot Z79. 01 PIGMENT AND LACQUER MIXER (CURRENT) USE OF ANTICOAGULANT 12/18/2018 FEMI BRUMFIELD MD Ot Z79. 4 PIGMENT AND LACQUER MIXER (CURRENT) USE OF INSULIN 12/18/2018 FEIM BRUMFIELD MD, Ot Z79. 51 SENIOR LIVING (CURRENT) USE OF INHALED STERO 12/18/2018 FEMI BRUMFIELD MD, Ot Z80. 0 FAMILY HISTORY OF MALIGNANT NEOPLASM OF 12/18/2018 FEMI BRUMFIELD MD, Ot Z82. 49 FAMILY HX OF ISCHEM HEART DIS AND OTH DI 12/18/2018 FEMI BRUMFIELD MD Ot Z86.711 PERSONAL HISTORY OF PULMONARY EMBOLISM 12/18/2018 FEMI BRUMFIELD MD, Ot Z87. 19 PERSONAL HISTORY OF OTHER DISEASES OF TH 12/18/2018 FEMI BRUMFIELD MD, Ot Z87.440 PERSONAL HISTORY OF URINARY (TRACT) INFE 12/18/2018 FEMI BRUMFIELD MD, Ot Z88. 6 ALLERGY STATUS TO ANALGESIC AGENT STATUS 12/18/2018 FEMI BRUMFIELD MD, Ot Z88. 7 ALLERGY STATUS TO SERUM AND VACCINE STAT 12/18/2018 FEMI BRUMFIELD MD, Ot Z88. 8 ALLERGY STATUS TO OTH DRUG/MEDS/BIOL SUB 12/18/2018 FEMI BRUMFIELD MD, Ot Z90. 49 ACQUIRED ABSENCE OF OTHER SPECIFIED PART 12/18/2018 FEMI BRUMFIELD MD Ot Z90.710 ACQUIRED ABSENCE OF BOTH CERVIX AND UTER 12/18/2018 Ot 272.4 HYPE RLIPIDEMIA NEC/NOS 12/18/2018 Ot 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 12/18/2018 Ot 401.9 HYPE RTENSION NOS 12/18/[address] PAIN NOS 12/18/2018 MADL, ALBIN L PLANT CLERK Ot 571 .8 CHRONIC LIVER DIS NEC 12/18/2018 MADL, ALBIN L PLANT CLERK Ot 592 .0 CALCULUS OF KIDNEY 12/18/2018 BERT JASON HAMMERER TAB Ot 611.71 MASTODYNIA 12/18/2018 MADL, ALBIN L PLANT CLERK Ot M79.662 PAIN IN LEFT LOWER LEG 12/18/2018 Alan BAILEY MD Ot I50 .9 HEART FAILURE, UNSPECIFIED 12/18/2018 Alan BAILEY MD Ot Z53.29 PROC/TRTMT NOT CRD OUT BEC PT DECISION F 12/18/2018 Alan BAILEY MD Ot E13 .9 OTHER SPECIFIED DIABETES MELLITUS WITHOU 12/18/2018 Alan BAILEY MD Ot E78 .2 MIXED HYPERLIPIDEMIA 12/18/2018 Alan BAILEY MD Ot I10 ESSENTIAL (PRIMARY) HYPERTENSION 12/18/2018 Alan BAILEY MD Ot R06.00 DYSPNEA, UNSPECIFIED 12/18/2018 Alan BAILEY MD Ot R07 .9 CHEST PAIN, UNSPECIFIED 12/18/2018 Alan BAILEY MD Ot E13 .9 OTHER SPECIFIED DIABETES MELLITUS WITHOU 12/18/2018 Alan BAILEY MD Ot E78 .2 MIXED HYPERLIPIDEMIA 12/18/2018 Alan BAILEY MD Ot I10 ESSENTIAL (PRIMARY) HYPERTENSION 12/18/2018 Alan BAILEY MD Ot R06.00 DYSPNEA, UNSPECIFIED 12/18/2018 Alan BAILEY MD Ot R07 .9 CHEST PAIN, UNSPECIFIED 12/18/2018 Ot 272.4 HYPE RLIPIDEMIA NEC/NOS 12/18/2018 Ot 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 12/18/2018 Ot 401.9 HYPE RTENSION NOS 12/18/[address] PAIN NOS 12/18/2018 MADLAIMEEA L PLANT CLERK Ot 571 .8 CHRONIC LIVER DIS NEC 12/18/2018 MADL, ALBIN L PLANT CLERK Ot 592 .0 CALCULUS OF KIDNEY 12/18/2018 EREN BERT A HAMMERER TAB Ot 611.71 MASTODYNIA 12/18/2018 ALBIN RENAE L PLANT CLERK Ot M79.662 PAIN IN LEFT LOWER LEG 12/18/2018 Alan BAILEY MD Ot I50 .9 HEART FAILURE, UNSPECIFIED 12/18/2018 Alan BAILEY MD Ot Z53.29 PROC/TRTMT NOT CRD OUT BEC PT DECISION F 12/18/2018 Alan BAILEY MD Ot E13 .9 OTHER SPECIFIED DIABETES MELLITUS WITHOU 12/18/2018 Alan BAILEY MD Ot E78 .2 MIXED HYPERLIPIDEMIA 12/18/2018 Alan BAILEY MD Ot I10 ESSENTIAL (PRIMARY) HYPERTENSION 12/18/2018 Alan BAILEY MD Ot R06.00 DYSPNEA, UNSPECIFIED 12/18/2018 Alan BAILEY MD Ot R07 .9 CHEST PAIN, UNSPECIFIED 12/18/2018 Alan BAILEY MD Ot E13 .9 OTHER SPECIFIED DIABETES MELLITUS WITHOU 12/18/2018 LEO MALIN, M RADHA Ot E78 .2 MIXED HYPERLIPIDEMIA 12/18/2018 LEO MALIN, M RADHA Ot I10 ESSENTIAL (PRIMARY) HYPERTENSION 12/18/2018 LEO MALIN, M RADHA Ot R06.00 DYSPNEA, UNSPECIFIED 12/18/2018 LEO MALIN, M RADHA Ot R07 .9 CHEST PAIN, UNSPECIFIED 12/22/2018 DARRELL URBINA DO Ot D68.9 COAGULATION DEFECT, UNSPECIFIED 12/22/2018 CARLITOS SINGH DARRELL Ot E11.40 TYPE 2 DIABETES MELLITUS WITH DIABETIC N 12/22/2018 ANANYA URBINA DOI Ot E11.62 1 TYPE 2 DIABETES MELLITUS WITH FOOT ULCER 12/22/2018 DARRELL URBINA DO Ot E11.62 8 TYPE 2 DIABETES MELLITUS WITH OTHER SKIN 12/22/2018 ANANYA URBINA DOI Ot E11.65 TYPE 2 DIABETES MELLITUS WITH HYPERGLYCE 12/22/2018 DARRELL URBINA DO Ot E78.00 PURE HYPERCHOLESTEROLEMIA, UNSPECIFIED 12/22/2018 DARRELL URBINA DO Ot E78.5 HYPERLIPIDEMIA, UNSPECIFIED 12/22/2018 CARLITOS SINGH DARRELL Ot F17.21 0 NICOTINE DEPENDENCE, CIGARETTES, UNCOMPL 12/22/2018 DARRELL URBINA DO Ot F41.9 ANXIETY DISORDER, UNSPECIFIED 12/22/2018 CARLITOS SINGH DARRELL Ot I10 ESSENTIAL (PRIMARY) HYPERTENSION 12/22/2018 DARRELL URBINA DO Ot I25.10 ATHSCL HEART DISEASE OF [place] CORONARY 12/22/2018 DARRELL URBINA DO Ot J44.9 CHRONIC OBSTRUCTIVE PULMONARY DISEASE, U 12/22/2018 DARRELL URBINA DO Ot K21.9 GASTRO-ESOPHAGEAL REFLUX DISEASE WITHOUT 12/22/2018 DARRELL URBINA DO Ot K52.9 NONINFECTIVE GASTROENTERITIS AND COLITIS 12/22/2018 DARRELL URBINA DO Ot L03.11 6 CELLULITIS OF LEFT LOWER LIMB 12/22/2018 DARRELL URBINA DO Ot L97.52 9 NON-PRESSURE CHRONIC ULCER OTH PRT LEFT 12/22/2018 DARRELL URBINA DO Ot S00.03 XA CONTUSION OF SCALP, INITIAL ENCOUNTER 12/22/2018 DARRELL UBRINA DO Ot S91.11 5A LAC W/O FB OF LEFT LESSER TOE(S) W/O DAM 12/22/2018 DARRELL URBINA DO Ot S91.11 5S LAC W/O FB OF LEFT LESSER TOE(S) W/O DAM 12/22/2018 DARRELL URBINA DO Ot W19.XX XA UNSPECIFIED FALL, INITIAL ENCOUNTER 12/22/2018 DARRELL URBINA DO Ot W19.XX XS UNSPECIFIED FALL, SEQUELA 12/22/2018 DARRELL URBINA DO Ot X50.1X XA OVEREXERTION FROM PROLONGED STATIC OR AW 12/22/2018 DARRELL URBINA DO Ot Z79.01 SENIOR LIVING (CURRENT) USE OF ANTICOAGULANT 12/22/2018 DARRELL URBINA DO Ot Z79.4 PIGMENT AND LACQUER MIXER (CURRENT) USE OF INSULIN 12/22/2018 DARRELL URBINA DO Ot Z79.51 PIGMENT AND LACQUER MIXER (CURRENT) USE OF INHALED STERO 12/22/2018 DARRELL URBINA DO Ot Z86.71 1 PERSONAL HISTORY OF PULMONARY EMBOLISM 12/22/2018 DARRELL URBINA DO Ot Z86.73 PRSNL HX OF TIA (TIA), AND CEREB INFRC W 12/22/2018 DARRELL URBINA DO Ot Z88.2 ALLERGY STATUS TO SULFONAMIDES STATUS 12/22/2018 DARRELL URBINA DO Ot Z88.8 ALLERGY STATUS TO OTH DRUG/MEDS/BIOL SUB 12/22/2018 DARRELL URBINA DO Ot Z91.14 PATIENT'S OTHER NONCOMPLIANCE WITH MEDIC 12/22/2018 DARRELL URBINA DO Ot Z98.61 CORONARY ANGIOPLASTY STATUS 12/23/2018 FEMI BRUMFIELD MD Ot D68. 9 COAGULATION DEFECT, UNSPECIFIED 12/23/2018 FEMI BRUMFIELD MD Ot E11. 40 TYPE 2 DIABETES MELLITUS WITH DIABETIC N 12/23/2018 FEMI BRUMFIELD MD Ot E78. 00 PURE HYPERCHOLESTEROLEMIA, UNSPECIFIED 12/23/2018 FEMI BRUMFIELD MD Ot F17.210 NICOTINE DEPENDENCE, CIGARETTES, UNCOMPL 12/23/2018 FEMI BRUMFIELD MD Ot F32. 9 MAJOR DEPRESSIVE DISORDER, SINGLE EPISOD 12/23/2018 FEMI BRUMFIELD MD Ot F41. 9 ANXIETY DISORDER, UNSPECIFIED 12/23/2018 FEMI BRUMFIELD MD Ot I10 ESSENTIAL (PRIMARY) HYPERTENSION 12/23/2018 FEMI BRUMFIELD MD, Ot J44. 9 CHRONIC OBSTRUCTIVE PULMONARY DISEASE, U 12/23/2018 FEMI BRUMFIELD MD, Ot K21. 9 GASTRO-ESOPHAGEAL REFLUX DISEASE WITHOUT 12/23/2018 FEMI BRUMFIELD MD, Ot R40.2142 COMA SCALE, EYES OPEN, SPONTANEOUS, EMR 12/23/2018 FEMI BRUMFIELD MD, Ot R40.2252 COMA SCALE, BEST VERBAL RESPONSE, ORIENT 12/23/2018 FEMI BRUMFIELD MD, Ot R40.2362 COMA SCALE, BEST MOTOR RESPONSE, OBEYS C 12/23/2018 FEMI BRUMFIELD MD Ot S00.03XA CONTUSION OF SCALP, INITIAL ENCOUNTER 12/23/2018 FEMI BRUMFIELD MD Ot S91.115A LAC W/O FB OF LEFT LESSER TOE(S) W/O DAM 12/23/2018 FEMI BRUMFIELD MD, Ot W19.XXXA UNSPECIFIED FALL, INITIAL ENCOUNTER 12/23/2018 FEMI BRUMFIELD MD Ot X50.1XXA OVEREXERTION FROM PROLONGED STATIC OR AW 12/23/2018 FEMI BRUMFIELD MD, Ot Z79. 01 SENIOR LIVING (CURRENT) USE OF ANTICOAGULANT 12/23/2018 FEMI BRUMFIELD MD, Ot Z79. 4 PIGMENT AND LACQUER MIXER (CURRENT) USE OF INSULIN 12/23/2018 FEMI BRUMFIELD MD, Ot Z79. 51 PIGMENT AND LACQUER MIXER (CURRENT) USE OF INHALED STERO 12/23/2018 FEMI BRUMFIELD MD Ot Z80. 0 FAMILY HISTORY OF MALIGNANT NEOPLASM OF 12/23/2018 FEMI BRUMFIELD MD Ot Z82. 49 FAMILY HX OF ISCHEM HEART DIS AND OTH DI 12/23/2018 FEMI BRUMFIELD MD Ot Z86.711 PERSONAL HISTORY OF PULMONARY EMBOLISM 12/23/2018 FEMI BRUMFIELD MD, Ot Z87. 19 PERSONAL HISTORY OF OTHER DISEASES OF TH 12/23/2018 FEMI BRUMFIELD MD, Ot Z87.440 PERSONAL HISTORY OF URINARY (TRACT) INFE 12/23/2018 FEMI BRUMFIELD MD, Ot Z88. 6 ALLERGY STATUS TO ANALGESIC AGENT STATUS 12/23/2018 FEMI BRUMFIELD MD, Ot Z88. 7 ALLERGY STATUS TO SERUM AND VACCINE STAT 12/23/2018 FEMI BRUMFIELD MD, Ot Z88. 8 ALLERGY STATUS TO OT DRUG/MEDS/BIOL SUB 12/23/2018 FEMI BRUMFIELD MD, Ot Z90. 49 ACQUIRED ABSENCE OF OTHER SPECIFIED PART 12/23/2018 FEMI BRUMFIELD MD Ot Z90.710 ACQUIRED ABSENCE OF BOTH CERVIX AND UTER 12/25/2018 FEMI BRUMFIELD MD Ot D68. 9 COAGULATION DEFECT, UNSPECIFIED 12/25/2018 FEMI BRUMFIELD MD Ot E11. 40 TYPE 2 DIABETES MELLITUS WITH DIABETIC N 12/25/2018 FEMI BRUMFIELD MD Ot E78. 00 PURE HYPERCHOLESTEROLEMIA, UNSPECIFIED 12/25/2018 FEMI BRUMFIELD MD Ot F17.210 NICOTINE DEPENDENCE, CIGARETTES, UNCOMPL 12/25/2018 FEMI BRUMFIELD MD Ot F32. 9 MAJOR DEPRESSIVE DISORDER, SINGLE EPISOD 12/25/2018 FEIM BRUMFIELD MD Ot F41. 9 ANXIETY DISORDER, UNSPECIFIED 12/25/2018 FEMI BRUMFIELD MD Ot I10 ESSENTIAL (PRIMARY) HYPERTENSION 12/25/2018 FEMI BRUMFIELD MD, Ot J44. 9 CHRONIC OBSTRUCTIVE PULMONARY DISEASE, U 12/25/2018 FEMI BRUMFIELD MD Ot K21. 9 GASTRO-ESOPHAGEAL REFLUX DISEASE WITHOUT 12/25/2018 FEMI BRUMFIELD MD Ot R40.2142 COMA SCALE, EYES OPEN, SPONTANEOUS, EMR 12/25/2018 FEMI BRUMFIELD MD Ot R40.2252 COMA SCALE, BEST VERBAL RESPONSE, ORIENT 12/25/2018 FEMI BRUMFIELD MD Ot R40.2362 COMA SCALE, BEST MOTOR RESPONSE, OBEYS C 12/25/2018 FEMI BRUMFIELD MD Ot S00.03XA CONTUSION OF SCALP, INITIAL ENCOUNTER 12/25/2018 FEMI BRUMFIELD MD Ot S91.115A LAC W/O FB OF LEFT LESSER TOE(S) W/O DAM 12/25/2018 FEMI BRUMFIELD MD Ot W19.XXXA UNSPECIFIED FALL, INITIAL ENCOUNTER 12/25/2018 FEMI BRUMFIELD MD Ot X50.1XXA OVEREXERTION FROM PROLONGED STATIC OR AW 12/25/2018 FEMI BRUMFIELD MD Ot Z79. 01 SENIOR LIVING (CURRENT) USE OF ANTICOAGULANT 12/25/2018 FEMI BRUMFIELD MD Ot Z79. 4 [facility] (CURRENT) USE OF INSULIN 12/25/2018 FEMI BRUMFIELD MD Ot Z79. 51 PIGMENT AND LACQUER MIXER (CURRENT) USE OF INHALED STERO 12/25/2018 FEMI BRUMFIELD MD Ot Z80. 0 FAMILY HISTORY OF MALIGNANT NEOPLASM OF 12/25/2018 FEMI BRUMFIELD MD Ot Z82. 49 FAMILY HX OF ISCHEM HEART DIS AND OTH DI 12/25/2018 FEMI BRUMFIELD MD Ot Z86.711 PERSONAL HISTORY OF PULMONARY EMBOLISM 12/25/2018 FEMI BRUMFIELD MD Ot Z87. 19 PERSONAL HISTORY OF OTHER DISEASES OF TH 12/25/2018 FEMI BRUMFIELD MD Ot Z87.440 PERSONAL HISTORY OF URINARY (TRACT) INFE 12/25/2018 FEMI BRUMFIELD MD, Ot Z88. 6 ALLERGY STATUS TO ANALGESIC AGENT STATUS 12/25/2018 FEMI BRUMFIELD MD Ot Z88. 7 ALLERGY STATUS TO SERUM AND VACCINE STAT 12/25/2018 FEMI BRUMFIELD MD, Ot Z88. 8 ALLERGY STATUS TO OTH DRUG/MEDS/BIOL SUB 12/25/2018 FEMI BRUMFIELD MD Ot Z90. 49 ACQUIRED ABSENCE OF OTHER SPECIFIED PART 12/25/2018 FEMI BRUMFIELD MD Ot Z90.710 ACQUIRED ABSENCE OF BOTH CERVIX AND UTER 12/30/2018 DARRELL URBINA DO Ot E11.40 TYPE 2 DIABETES MELLITUS WITH DIABETIC N 12/30/2018 DARRELL URBINA DO Ot E11.62 1 TYPE 2 DIABETES MELLITUS WITH FOOT ULCER 12/30/2018 DARRELL URBINA DO Ot E11.65 TYPE 2 DIABETES MELLITUS WITH HYPERGLYCE 12/30/2018 DARRELL URBINA DO Ot E78.00 PURE HYPERCHOLESTEROLEMIA, UNSPECIFIED 12/30/2018 DARRELL URBINA DO Ot E78.5 HYPERLIPIDEMIA, UNSPECIFIED 12/30/2018 DARRELL URBINA DO Ot F17.21 0 NICOTINE DEPENDENCE, CIGARETTES, UNCOMPL 12/30/2018 DARRELL URBINA DO Ot F41.9 ANXIETY DISORDER, UNSPECIFIED 12/30/2018 DARRELL URBINA DO Ot I10 ESSENTIAL (PRIMARY) HYPERTENSION 12/30/2018 DARRELL URBINA DO Ot I25.10 ATHSCL HEART DISEASE OF [place] CORONARY 12/30/2018 DARRELL URBINA DO Ot J44.9 CHRONIC OBSTRUCTIVE PULMONARY DISEASE, U 12/30/2018 DARRELL URBINA DO Ot K21.9 GASTRO-ESOPHAGEAL REFLUX DISEASE WITHOUT 12/30/2018 DARRELL URBINA DO Ot K52.9 NONINFECTIVE GASTROENTERITIS AND COLITIS 12/30/2018 DARRELL URBINA DO Ot L03.11 6 CELLULITIS OF LEFT LOWER LIMB 12/30/2018 DARRELL URBINA DO Ot L97.52 9 NON-PRESSURE CHRONIC ULCER OTH PRT LEFT 12/30/2018 DARRELL URBINA DO Ot S91.11 5S LAC W/O FB OF LEFT LESSER TOE(S) W/O DAM 12/30/2018 DARRELL URBINA DO Ot W19.XX XS UNSPECIFIED FALL, SEQUELA 12/30/2018 DARRELL URBINA DO Ot Z79.4 [facility] (CURRENT) USE OF INSULIN 12/30/2018 DARRELL URBINA DO Ot Z86.71 1 PERSONAL HISTORY OF PULMONARY EMBOLISM 12/30/2018 DARRELL URBIAN DO Ot Z86.73 PRSNL HX OF TIA (TIA), AND CEREB INFRC W 12/30/2018 DARRELL URBINA DO Ot Z88.2 ALLERGY STATUS TO SULFONAMIDES STATUS 12/30/2018 DARRELL URBINA DO Ot Z88.8 ALLERGY STATUS TO OTH DRUG/MEDS/BIOL SUB 12/30/2018 DARRELL URBINA DO Ot Z91.14 PATIENT'S OTHER NONCOMPLIANCE WITH MEDIC 12/30/2018 DARRELL URBINA DO Ot Z98.61 CORONARY ANGIOPLASTY STATUS 12/30/2018 DARRELL URBINA DO Ot E11.40 TYPE 2 DIABETES MELLITUS WITH DIABETIC N 12/30/2018 DARRELL URBINA DO Ot E11.62 1 TYPE 2 DIABETES MELLITUS WITH FOOT ULCER 12/30/2018 DARRELL URBINA DO Ot E11.65 TYPE 2 DIABETES MELLITUS WITH HYPERGLYCE 12/30/2018 DARRELL URBINA DO Ot E78.00 PURE HYPERCHOLESTEROLEMIA, UNSPECIFIED 12/30/2018 DARRELL URBINA DO Ot E78.5 HYPERLIPIDEMIA, UNSPECIFIED 12/30/2018 DARRELL URBINA DO Ot F17.21 0 NICOTINE DEPENDENCE, CIGARETTES, UNCOMPL 12/30/2018 DARRELL URBINA DO Ot F41.9 ANXIETY DISORDER, UNSPECIFIED 12/30/2018 DARRELL URBINA DO Ot I10 ESSENTIAL (PRIMARY) HYPERTENSION 12/30/2018 DARRELL URBINA DO Ot I25.10 ATHSCL HEART DISEASE OF [place] CORONARY 12/30/2018 DARRELL URBINA DO Ot J44.9 CHRONIC OBSTRUCTIVE PULMONARY DISEASE, U 12/30/2018 DARRELL URBINA DO Ot K21.9 GASTRO-ESOPHAGEAL REFLUX DISEASE WITHOUT 12/30/2018 DARRELL URBINA DO Ot K52.9 NONINFECTIVE GASTROENTERITIS AND COLITIS 12/30/2018 DARRELL URBINA DO Ot L03.11 6 CELLULITIS OF LEFT LOWER LIMB 12/30/2018 DARRELL URBINA DO, Ot L97.52 9 NON-PRESSURE CHRONIC ULCER OTH PRT LEFT 12/30/2018 DARRELL URBINA DO Ot S91.11 5S LAC W/O FB OF LEFT LESSER TOE(S) W/O DAM 12/30/2018 DARRELL URBINA DO Ot W19.XX XS UNSPECIFIED FALL, SEQUELA 12/30/2018 DARRELL URBINA DO Ot Z79.4 [facility] (CURRENT) USE OF INSULIN 12/30/2018 DARRELL URBINA DO Ot Z86.71 1 PERSONAL HISTORY OF PULMONARY EMBOLISM 12/30/2018 DARRELL URBINA DO, Ot Z86.73 PRSNL HX OF TIA (TIA), AND CEREB INFRC W 12/30/2018 DARRELL URBINA DO Ot Z88.2 ALLERGY STATUS TO SULFONAMIDES STATUS 12/30/2018 DARRELL URBINA DO, Ot Z88.8 ALLERGY STATUS TO OTH DRUG/MEDS/BIOL SUB 12/30/2018 DARRELL URBINA DO Ot Z91.14 PATIENT'S OTHER NONCOMPLIANCE WITH MEDIC 12/30/2018 DARRELL URBINA DO Ot Z98.61 CORONARY ANGIOPLASTY STATUS 01/28/2019 TOBY SMALLS APRN Ot I51.7 CARDIOMEGALY 01/28/2019 TOBY SMALLS APRN Ot R0 5 COUGH 01/28/2019 TOBY SMALLS HAMMERER TAB Ot R06.2 WHEEZING 02/18/2019 TOBY SMALLS APRN Ot I51.7 CARDIOMEGALY 02/18/2019 TOBY SMALLS HAMMERER TAB Ot R0 5 COUGH 02/18/2019 TOBY SMALLS APRN Ot R06.2 WHEEZING 03/03/2019 AHSAN BAEZ DO Ot E11.40 TYPE 2 DIABETES MELLITUS WITH DIABETIC N 03/03/2019 AHSAN BAEZ DO Ot E11.65 TYPE 2 DIABETES MELLITUS WITH HYPERGLYCE 03/03/2019 AHSAN BAEZ DO, Ot E78.00 PURE HYPERCHOLESTEROLEMIA, UNSPECIFIED 03/03/2019 AHSAN BAEZ DO, Ot F32.9 MAJOR DEPRESSIVE DISORDER, SINGLE EPISOD 03/03/2019 AHSAN BAEZ DO, Ot F41.9 ANXIETY DISORDER, UNSPECIFIED 03/03/2019 AHSAN BAEZ DO, Ot I1 0 ESSENTIAL (PRIMARY) HYPERTENSION 03/03/2019 AHSAN BAEZ DO, Ot J44.9 CHRONIC OBSTRUCTIVE PULMONARY DISEASE, U 03/03/2019 AHSAN BAEZ DO, Ot K21.9 GASTRO-ESOPHAGEAL REFLUX DISEASE WITHOUT 03/03/2019 AHSAN BAEZ DO, Ot N39.0 URINARY TRACT INFECTION, SITE NOT SPECIF 03/03/2019 AHSAN BAEZ DO, Ot R53.1 WEAKNESS 03/03/2019 AHSAN BAEZ DO, Ot Z79.4 PIGMENT AND LACQUER MIXER (CURRENT) USE OF INSULIN 03/03/2019 AHSAN BAEZ DO, Ot Z79.51 PIGMENT AND LACQUER MIXER (CURRENT) USE OF INHALED STERO 03/03/2019 AHSAN BAEZ DO, Ot Z82.49 FAMILY HX OF ISCHEM HEART DIS AND OTH DI 03/03/2019 AHSAN BAEZ DO, Ot Z87.440 PERSONAL HISTORY OF URINARY (TRACT) INFE 03/03/2019 AHSAN BAEZ DO, Ot Z88.1 ALLERGY STATUS TO OTHER ANTIBIOTIC AGENT 03/03/2019 AHSAN BAEZ DO, Ot Z88.2 ALLERGY STATUS TO SULFONAMIDES STATUS 03/03/2019 AHSAN BAEZ DO, Ot Z88.5 ALLERGY STATUS TO NARCOTIC AGENT STATUS 03/03/2019 AHSAN BAEZ DO, Ot Z88.7 ALLERGY STATUS TO SERUM AND VACCINE STAT 03/03/2019 AHSAN BAEZ DO, Ot Z88.8 ALLERGY STATUS TO [facility] DRUG/MEDS/BIOL SUB 03/03/2019 AHSAN BAEZ DO, Ot Z90.49 ACQUIRED ABSENCE OF OTHER SPECIFIED PART 03/03/2019 AHSAN BAEZ DO, Ot Z90.711 ACQUIRED ABSENCE OF UTERUS WITH REMAININ 03/09/2019 AHSAN BAEZ DO, Ot E11.40 TYPE 2 DIABETES MELLITUS WITH DIABETIC N 03/09/2019 AHSAN BAEZ DO, Ot E11.65 TYPE 2 DIABETES MELLITUS WITH HYPERGLYCE 03/09/2019 AHSAN BAEZ DO, Ot E78.00 PURE HYPERCHOLESTEROLEMIA, UNSPECIFIED 03/09/2019 AHSAN BAEZ DO, Ot F32.9 MAJOR DEPRESSIVE DISORDER, SINGLE EPISOD 03/09/2019 AHSAN BAEZ DO, Ot F41.9 ANXIETY DISORDER, UNSPECIFIED 03/09/2019 AHSAN BAEZ DO, Ot I1 0 ESSENTIAL (PRIMARY) HYPERTENSION 03/09/2019 AHSAN BAEZ DO, Ot J44.9 CHRONIC OBSTRUCTIVE PULMONARY DISEASE, U 03/09/2019 AHSAN BAEZ DO, Ot K21.9 GASTRO-ESOPHAGEAL REFLUX DISEASE WITHOUT 03/09/2019 AHSAN BAEZ DO, Ot N39.0 URINARY TRACT INFECTION, SITE NOT SPECIF 03/09/2019 AHSAN BAEZ DO, Ot R53.1 WEAKNESS 03/09/2019 AHSAN BAEZ DO, Ot Z79.4 [facility] (CURRENT) USE OF INSULIN 03/09/2019 AHSAN BAEZ DO, Ot Z79.51 [facility] (CURRENT) USE OF INHALED STERO 03/09/2019 AHSAN BAEZ DO, Ot Z82.49 FAMILY HX OF ISCHEM HEART DIS AND OTH DI 03/09/2019 AHSAN BAEZ DO, Ot Z87.440 PERSONAL HISTORY OF URINARY (TRACT) INFE 03/09/2019 AHSAN BAEZ DO, Ot Z88.1 ALLERGY STATUS TO OTHER ANTIBIOTIC AGENT 03/09/2019 AHSAN BAEZ DO, Ot Z88.2 ALLERGY STATUS TO SULFONAMIDES STATUS 03/09/2019 AHSAN BAEZ DO, Ot Z88.5 ALLERGY STATUS TO NARCOTIC AGENT STATUS 03/09/2019 AHSAN BAEZ DO, Ot Z88.7 ALLERGY STATUS TO SERUM AND VACCINE STAT 03/09/2019 AHSAN BAEZ DO, Ot Z88.8 ALLERGY STATUS TO [facility] DRUG/MEDS/BIOL SUB 03/09/2019 AHSAN BAEZ DO, Ot Z90.49 ACQUIRED ABSENCE OF OTHER SPECIFIED PART 03/09/2019 AHSAN BAEZ DO, Ot Z90.711 ACQUIRED ABSENCE OF UTERUS WITH REMAININ 2019 RAYMONSTFACUNDO BERNARDO DO, Ot E11.40 TYPE 2 DIABETES MELLITUS WITH DIABETIC N 2019 RAYMONSTFACUNDO BERNARDO DO, Ot E78.00 PURE HYPERCHOLESTEROLEMIA, UNSPECIFIED 2019 RAYMONSTFACUNDO BERNARDO DO, Ot E86.0 DEHYDRATION 2019 ROVENSTINE DO, FACUNDO L Ot F32.9 MAJOR DEPRESSIVE DISORDER, SINGLE EPISOD 2019 ROVENSTINE DO, FACUNDO Alanis Ot F41.9 ANXIETY DISORDER, UNSPECIFIED 2019 ROVENSTINE FACUNDO SINGH Ot I10 ESSENTIAL (PRIMARY) HYPERTENSION 2019 ROVENSTINE FACUNDO SINGH Ot J18.9 PNEUMONIA, UNSPECIFIED ORGANISM 2019 ROVENSTINE FACUNDO SINGH Ot J44.9 CHRONIC OBSTRUCTIVE PULMONARY DISEASE, U 2019 ROVENSTINE DOFACUNDO Ot K21.9 GASTRO-ESOPHAGEAL REFLUX DISEASE WITHOUT 2019 ROVENSTINE DOFACUNDO Ot R05 COUGH 2019 ROVENSTINE DOFACUNDO Ot W19.XXXA UNSPECIFIED FALL, INITIAL ENCOUNTER 2019 RAYMONSTFACUNDO BERNARDO DO, Ot Z79.01 PIGMENT AND LACQUER MIXER (CURRENT) USE OF ANTICOAGULANT 2019 DEVVENSTINE FACUNDO SINGH Ot Z79.4 PIGMENT AND LACQUER MIXER (CURRENT) USE OF INSULIN 2019 DEVVENSTINE FACUNDO SINGH Ot Z79.51 PIGMENT AND LACQUER MIXER (CURRENT) USE OF INHALED STERO 2019 DEVVENSTINE FACUNDO SINGH Ot Z80.8 FAMILY HISTORY OF MALIGNANT NEOPLASM OF 2019 RAYMONSTFACUNDO BERNARDO DO Ot Z82.49 FAMILY HX OF ISCHEM HEART DIS AND OTH DI 2019 DEVVENSTINE FACUNDO SINGH Ot Z87.440 PERSONAL HISTORY OF URINARY (TRACT) INFE 2019 RAYMONSTFACUNDO BERNARDO DO, Ot Z88.1 ALLERGY STATUS TO OTHER ANTIBIOTIC AGENT 2019 DEVVENSTINE FACUNDO SINGH Ot Z88.2 ALLERGY STATUS TO SULFONAMIDES STATUS 2019 DEVVENSTINE FACUNDO SINGH Ot Z88.6 ALLERGY STATUS TO ANALGESIC AGENT STATUS 2019 DEVVENSTINE FACUNDO SINGH Ot Z88.7 ALLERGY STATUS TO SERUM AND VACCINE STAT 2019 DEVVENSTFACUNDO BERNARDO DO Ot Z88.8 ALLERGY STATUS TO OT DRUG/MEDS/BIOL SUB 2019 DEVVENSTINE FACUNDO SINGH Ot Z90.49 ACQUIRED ABSENCE OF OTHER SPECIFIED PART 2019 ROVENSTINE DOFACUNDO Ot Z90.710 ACQUIRED ABSENCE OF BOTH CERVIX AND UTER 06/26/2019 ROVENSTINE DOFACUNDO Ot E11.40 TYPE 2 DIABETES MELLITUS WITH DIABETIC N 06/26/2019 ROVENSTINE FACUNDO SINGH Ot E78.00 PURE HYPERCHOLESTEROLEMIA, UNSPECIFIED 06/26/2019 ROVENSTINE FACUNDO SINGH Ot E86.0 DEHYDRATION 06/26/2019 ROVENSTINE FACUNDO SINGH Ot F32.9 MAJOR DEPRESSIVE DISORDER, SINGLE EPISOD 06/26/2019 ROVENSTINE DOFACUNDO Ot F41.9 ANXIETY DISORDER, UNSPECIFIED 06/26/2019 ROVENSTINE FACUNDO SINGH Ot I10 ESSENTIAL (PRIMARY) HYPERTENSION 06/26/2019 ROVENSTINE DOFACUNDO Ot J18.9 PNEUMONIA, UNSPECIFIED ORGANISM 06/26/2019 ROVENSTINE DOFACUNDO Ot J44.9 CHRONIC OBSTRUCTIVE PULMONARY DISEASE, U 06/26/2019 DEVVENSTINE FACUNDO SINGH Ot K21.9 GASTRO-ESOPHAGEAL REFLUX DISEASE WITHOUT 06/26/2019 ROVENSTINE DOFACUNDO Ot R05 COUGH 06/26/2019 ROVENSTINE FACUNDO SINGH Ot W19.XXXA UNSPECIFIED FALL, INITIAL ENCOUNTER 06/26/2019 DEVVENSTFACUNDO BERNARDO DO Ot Z79.01 [facility] (CURRENT) USE OF ANTICOAGULANT 06/26/2019 DEVVENSTINE FACUNDO SINGH Ot Z79.4 PIGMENT AND LACQUER MIXER (CURRENT) USE OF INSULIN 06/26/2019 RAYMONSTINE FACUNDO SINGH Ot Z79.51 [facility] (CURRENT) USE OF INHALED STERO 06/26/2019 DEVVENSTINE FACUNDO SINGH Ot Z80.8 FAMILY HISTORY OF MALIGNANT NEOPLASM OF 06/26/2019 ROVENSTINE DOFACUNDO Ot Z82.49 FAMILY HX OF ISCHEM HEART DIS AND OTH DI 06/26/2019 DEVVENSTINE FACUNDO SINGH Ot Z87.440 PERSONAL HISTORY OF URINARY (TRACT) INFE 06/26/2019 DEVVENSTINE FACUNDO SINGH Ot Z88.1 ALLERGY STATUS TO OTHER ANTIBIOTIC AGENT 06/26/2019 DEVVENSTINE FACUNDO SINGH Ot Z88.2 ALLERGY STATUS TO SULFONAMIDES STATUS 06/26/2019 ROVENSTINE DO FACUNDO Annabelle Ot Z88.6 ALLERGY STATUS TO ANALGESIC AGENT STATUS 06/26/2019 DEVVENSTTOVA SINGH FACUNDO Annabelle Ot Z88.7 ALLERGY STATUS TO SERUM AND VACCINE STAT 06/26/2019 DEVDEXTERFER PAULA DOEN Annabelle Ot Z88.8 ALLERGY STATUS TO OTH DRUG/MEDS/BIOL SUB 06/26/2019 DEVDEXTERSTTOVA SINGH FACUNDO Annabelle Ot Z90.49 ACQUIRED ABSENCE OF OTHER SPECIFIED PART 06/26/2019 DEVDEXTERSTFER BERNARDO DOEN Annabelle Ot Z90.710 ACQUIRED ABSENCE OF BOTH CERVIX AND UTER 07/17/2019 DARRELL URBINA DO Ot A41.9 SEPSIS, UNSPECIFIED ORGANISM 07/17/2019 DARRELL URBINA DO Ot B96.1 KLEBSIELLA PNEUMONIAE THE CAUSE OF DI 07/17/2019 ANANYA URBINA DOI Ot E11.40 TYPE 2 DIABETES MELLITUS WITH DIABETIC N 07/17/2019 ANANYA URBINA DOI Ot E78.00 PURE HYPERCHOLESTEROLEMIA, UNSPECIFIED 07/17/2019 CARLITOS SINGH DARRELL Ot F17.21 0 NICOTINE DEPENDENCE, CIGARETTES, UNCOMPL 07/17/2019 CARLITOS SINGH DARRELL Ot F32.9 MAJOR DEPRESSIVE DISORDER, SINGLE EPISOD 07/17/2019 ANANYA URBINA DOI Ot F41.9 ANXIETY DISORDER, UNSPECIFIED 07/17/2019 ANANYA URBINA DOI Ot G25.81 RESTLESS LEGS SYNDROME 07/17/2019 ANANYA URBINA DOI Ot G89.29 OTHER CHRONIC PAIN 07/17/2019 ANANYA URBINA DOI Ot H54.3 UNQUALIFIED VISUAL LOSS, BOTH EYES 07/17/2019 CARLITOS SINGH DARRELL Ot H93.19 TINNITUS, UNSPECIFIED EAR 07/17/2019 CARLITOS SINGH DARRELL Ot I10 ESSENTIAL (PRIMARY) HYPERTENSION 07/17/2019 ANANYA URBINA DOI Ot J44.9 CHRONIC OBSTRUCTIVE PULMONARY DISEASE, U 07/17/2019 ANANYA URBINA DOI Ot K21.9 GASTRO-ESOPHAGEAL REFLUX DISEASE WITHOUT 07/17/2019 CARLITOS SINGH DARRELL Ot K52.9 NONINFECTIVE GASTROENTERITIS AND COLITIS 07/17/2019 CARLITOS SINGH DARRELL Ot K86.1 OTHER CHRONIC PANCREATITIS 07/17/2019 CARLITOS SINGH DARRELL Ot M19.90 UNSPECIFIED OSTEOARTHRITIS, UNSPECIFIED 07/17/2019 DARRELL URBINA DO Ot N39.0 URINARY TRACT INFECTION, SITE NOT SPECIF 07/17/2019 DARRELL URBINA DO Ot R65.20 SEVERE SEPSIS WITHOUT SEPTIC SHOCK 07/17/2019 DARRELL URBIAN DO Ot Z16.12 EXTENDED SPECTRUM BETA LACTAMASE (ESBL) 07/17/2019 DARRELL URBINA DO Ot Z79.4 PIGMENT AND LACQUER MIXER (CURRENT) USE OF INSULIN 07/17/2019 DARRELL URBINA DO Ot Z87.44 0 PERSONAL HISTORY OF URINARY (TRACT) INFE 07/17/2019 DARRELL URBINA DO Ot Z90.71 0 ACQUIRED ABSENCE OF BOTH CERVIX AND UTER 07/23/2019 Ot 272.4 HYPE RLIPIDEMIA NEC/NOS 07/23/2019 Ot 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 07/23/2019 Ot 401.9 HYPE RTENSION NOS 07/23/[address] PAIN NOS 07/23/2019 MADL, ALBIN L PLANT CLERK Ot 571 .8 CHRONIC LIVER DIS NEC 07/23/2019 MADL, ALBIN L PLANT CLERK Ot 592 .0 CALCULUS OF KIDNEY 07/23/2019 ERENBERT INGRAM HAMMERER TAB Ot 611.71 MASTODYNIA 07/23/2019 MADL, ALBIN L PLANT CLERK Ot M79.662 PAIN IN LEFT LOWER LEG 07/23/2019 LEO MALIN, Alan GARCIA Ot I50 .9 HEART FAILURE, UNSPECIFIED 07/23/2019 Alan BAILEY MD Ot Z53.29 PROC/TRTMT NOT CRD OUT BEC PT DECISION F 07/23/2019 Alan BAILEY MD Ot E13 .9 OTHER SPECIFIED DIABETES MELLITUS WITHOU 07/23/2019 Alan BAILEY MD Ot E78 .2 MIXED HYPERLIPIDEMIA 07/23/2019 Alan BAILEY MD Ot I10 ESSENTIAL (PRIMARY) HYPERTENSION 07/23/2019 Alan BAILEY MD Ot R06.00 DYSPNEA, UNSPECIFIED 07/23/2019 Alan BAILEY MD Ot R07 .9 CHEST PAIN, UNSPECIFIED 07/23/2019 Alan BAILEY MD Ot E13 .9 OTHER SPECIFIED DIABETES MELLITUS WITHOU 07/23/2019 Alan BAILEY MD Ot E78 .2 MIXED HYPERLIPIDEMIA 07/23/2019 Alan BAILEY MD Ot I10 ESSENTIAL (PRIMARY) HYPERTENSION 07/23/2019 LEO MALIN, Alan GARCIA Ot R06.00 DYSPNEA, UNSPECIFIED 07/23/2019 Alan BAILEY MD Ot R07 .9 CHEST PAIN, UNSPECIFIED 07/23/2019 SERINA, TOBY S HAMMERER TAB Ot I51.7 CARDIOMEGALY 07/23/2019 SERINA, TOBY S HAMMERER TAB Ot R0 5 COUGH 07/23/2019 SERINA, TOBY S HAMMERER TAB Ot R06.2 WHEEZING 07/23/2019 TAMANNA CORONADO MD, Ot Z01.81 8 ENCOUNTER FOR OTHER PREPROCEDURAL EXAMIN 07/27/2019 TAMANNA CORONADO MD Ot E11.40 TYPE 2 DIABETES MELLITUS WITH DIABETIC N 07/27/2019 TAMANNA CORONADO MD Ot E78.00 PURE HYPERCHOLESTEROLEMIA, UNSPECIFIED 07/27/2019 TAMANNA CORONADO MD Ot E78.5 HYPERLIPIDEMIA, UNSPECIFIED 07/27/2019 TAMANNA CORONADO MD, Ot F17.21 0 NICOTINE DEPENDENCE, CIGARETTES, UNCOMPL 07/27/2019 TAMANNA CORONADO MD Ot F32.9 MAJOR DEPRESSIVE DISORDER, SINGLE EPISOD 07/27/2019 TAMANNA CORONADO MD, Ot F41.9 ANXIETY DISORDER, UNSPECIFIED 07/27/2019 ATMANNA CORONADO MD Ot I10 ESSENTIAL (PRIMARY) HYPERTENSION 07/27/2019 TAMANNA CORONADO MD, Ot I25.10 ATHSCL HEART DISEASE OF [place] CORONARY 07/27/2019 TAMANNA CORONADO MD Ot K21.0 GASTRO-ESOPHAGEAL REFLUX DISEASE WITH ES 07/27/2019 TAMANNA CORONADO MD Ot K29.50 UNSPECIFIED CHRONIC GASTRITIS WITHOUT BL 07/27/2019 TAMANNA CORONADO MD, Ot K44.9 DIAPHRAGMATIC HERNIA WITHOUT OBSTRUCTION 07/27/2019 TAMANNA CORONADO MD Ot K64.1 SECOND DEGREE HEMORRHOIDS 07/27/2019 TAMANNA CORONADO MD, Ot K64.4 RESIDUAL HEMORRHOIDAL SKIN TAGS 07/27/2019 TAMANNA CORONADO MD, Ot Z44.9 ENCOUNTER FOR FIT/ADJST OF UNSP EXTERNAL 07/27/2019 TAMANNA CORONADO MD, Ot Z79.84 PIGMENT AND LACQUER MIXER (CURRENT) USE OF ORAL HYPOGLYC 07/27/2019 TAMANNA CORONADO MD, Ot Z79.89 9 OTHER PIGMENT AND LACQUER MIXER (CURRENT) DRUG THERAPY 07/27/2019 TAMANNA CORONADO MD, Ot Z80.0 FAMILY HISTORY OF MALIGNANT NEOPLASM OF 07/27/2019 TAMANNA CORONADO MD, Ot Z80.1 FAMILY HISTORY OF MALIG NEOPLASM OF [place] 07/27/2019 TAMANNA CORONADO MD, Ot Z80.3 FAMILY HISTORY OF MALIGNANT NEOPLASM OF 07/27/2019 TAMANNA CORONADO MD, Ot Z82.49 FAMILY HX OF ISCHEM HEART DIS AND OTH DI 07/27/2019 TAMANNA CORONADO MD, Ot Z83.3 FAMILY HISTORY OF DIABETES MELLITUS 07/27/2019 TAMANNA CORONADO MD, Ot Z90.49 ACQUIRED ABSENCE OF OTHER SPECIFIED PART 07/27/2019 TAMANNA CORONADO MD, Ot Z90.71 0 ACQUIRED ABSENCE OF BOTH CERVIX AND UTER 07/27/2019 TAMANNA CORONADO MD, Ot Z90.89 ACQUIRED ABSENCE OF OTHER ORGANS 08/04/2019 Ot 272.4 HYPE RLIPIDEMIA NEC/NOS 08/04/2019 Ot 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 08/04/2019 Ot 401.9 HYPE RTENSION NOS 08/04/[address] PAIN NOS 08/04/2019 MADL, ALBIN L PLANT CLERK Ot 571 .8 CHRONIC LIVER DIS NEC 08/04/2019 MADL, ALBIN L PLANT CLERK Ot 592 .0 CALCULUS OF KIDNEY 08/04/2019 BERT JASON HAMMERER TAB Ot 611.71 MASTODYNIA 08/04/2019 MADL, ALBIN L PLANT CLERK Ot M79.662 PAIN IN LEFT LOWER LEG 08/04/2019 Alan BAILEY MD Ot I50 .9 HEART FAILURE, UNSPECIFIED 08/04/2019 Alan ABILEY MD Ot Z53.29 PROC/TRTMT NOT CRD OUT BEC PT DECISION F 08/04/2019 Alan BAILEY MD Ot E13 .9 OTHER SPECIFIED DIABETES MELLITUS WITHOU 08/04/2019 Alan BAILEY MD Ot E78 .2 MIXED HYPERLIPIDEMIA 08/04/2019 Alan BAILEY MD Ot I10 ESSENTIAL (PRIMARY) HYPERTENSION 08/04/2019 Alan BAILEY MD Ot R06.00 DYSPNEA, UNSPECIFIED 08/04/2019 Alan BAILEY MD Ot R07 .9 CHEST PAIN, UNSPECIFIED 08/04/2019 Alan BAILEY MD Ot E13 .9 OTHER SPECIFIED DIABETES MELLITUS WITHOU 08/04/2019 Alan BAILEY MD Ot E78 .2 MIXED HYPERLIPIDEMIA 08/04/2019 Alan BAILEY MD Ot I10 ESSENTIAL (PRIMARY) HYPERTENSION 08/04/2019 Alan BAILEY MD Ot R06.00 DYSPNEA, UNSPECIFIED 08/04/2019 Alan BAILEY MD Ot R07 .9 CHEST PAIN, UNSPECIFIED 08/04/2019 TOBY SMALLS S HAMMERER TAB Ot I51.7 CARDIOMEGALY 08/04/2019 TOBY SMALLS S HAMMERER TAB Ot R0 5 COUGH 08/04/2019 TOBY SMALLS S HAMMERER TAB Ot R06.2 WHEEZING 08/04/2019 Ot 272.4 HYPE RLIPIDEMIA NEC/NOS 08/04/2019 Ot 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 08/04/2019 Ot 401.9 HYPE RTENSION NOS 08/04/[address] PAIN NOS 08/04/2019 MADL, ALBIN L PLANT CLERK Ot 571 .8 CHRONIC LIVER DIS NEC 08/04/2019 MADL, ALBIN L PLANT CLERK Ot 592 .0 CALCULUS OF KIDNEY 08/04/2019 BERT JASON HAMMERER TAB Ot 611.71 MASTODYNIA 08/04/2019 MADL, ALBIN L PLANT CLERK Ot M79.662 PAIN IN LEFT LOWER LEG 08/04/2019 Alan BAILEY MD Ot I50 .9 HEART FAILURE, UNSPECIFIED 08/04/2019 Alan BAILEY MD Ot Z53.29 PROC/TRTMT NOT CRD OUT BEC PT DECISION F 08/04/2019 Alan BAILEY MD Ot E13 .9 OTHER SPECIFIED DIABETES MELLITUS WITHOU 08/04/2019 Alan BAILEY MD Ot E78 .2 MIXED HYPERLIPIDEMIA 08/04/2019 LEO MALIN, Alan GARCIA Ot I10 ESSENTIAL (PRIMARY) HYPERTENSION 08/04/2019 LEO MALIN, Alan GARCIA Ot R06.00 DYSPNEA, UNSPECIFIED 08/04/2019 LEO MALIN, Alan GARCIA Ot R07 .9 CHEST PAIN, UNSPECIFIED 08/04/2019 LEO MALIN, Alan GARCIA Ot E13 .9 OTHER SPECIFIED DIABETES MELLITUS WITHOU 08/04/2019 LEO MALIN, Alan GARCIA Ot E78 .2 MIXED HYPERLIPIDEMIA 08/04/2019 LEO MLAIN, Alan GARCIA Ot I10 ESSENTIAL (PRIMARY) HYPERTENSION 08/04/2019 LEO MALIN, Alan GARCIA Ot R06.00 DYSPNEA, UNSPECIFIED 08/04/2019 LEO MALIN, Alan GARCIA Ot R07 .9 CHEST PAIN, UNSPECIFIED 08/04/2019 TOBY SMALLS S HAMMERER TAB Ot I51.7 CARDIOMEGALY 08/04/2019 TOBY SMALLS S HAMMERER TAB Ot R0 5 COUGH 08/04/2019 SERINA TOBY S HAMMERER TAB Ot R06.2 WHEEZING 08/06/2019 TAMANNA CORONADO MD Ot E11.40 TYPE 2 DIABETES MELLITUS WITH DIABETIC N 08/06/2019 TAMANNA CORONADO MD, Ot E78.00 PURE HYPERCHOLESTEROLEMIA, UNSPECIFIED 08/06/2019 TAMANNA CORONADO MD, Ot E78.5 HYPERLIPIDEMIA, UNSPECIFIED 08/06/2019 TAMANNA CORONADO MD Ot F17.21 0 NICOTINE DEPENDENCE, CIGARETTES, UNCOMPL 08/06/2019 TAMANNA CORONADO MD Ot F32.9 MAJOR DEPRESSIVE DISORDER, SINGLE EPISOD 08/06/2019 TAMANNA CORONADO MD, Ot F41.9 ANXIETY DISORDER, UNSPECIFIED 08/06/2019 TAMANNA CORONADO MD Ot I10 ESSENTIAL (PRIMARY) HYPERTENSION 08/06/2019 TAMANNA CORONADO MD, Ot I25.10 ATHSCL HEART DISEASE OF [place] CORONARY 08/06/2019 TAMANNA CORONADO MD, Ot K21.0 GASTRO-ESOPHAGEAL REFLUX DISEASE WITH ES 08/06/2019 TAMANNA CORONADO MD, Ot K29.50 UNSPECIFIED CHRONIC GASTRITIS WITHOUT BL 08/06/2019 KIDO MD, TAKAAKI Ot K44.9 DIAPHRAGMATIC HERNIA WITHOUT OBSTRUCTION 08/06/2019 TAMANNA CORONADO MD, Ot K64.1 SECOND DEGREE HEMORRHOIDS 08/06/2019 TAMANNA CORONADO MD, Ot K64.4 RESIDUAL HEMORRHOIDAL SKIN TAGS 08/06/2019 TAMANNA CORONADO MD, Ot Z44.9 ENCOUNTER FOR FIT/ADJST OF UNSP EXTERNAL 08/06/2019 TAMANNA CORONADO MD, Ot Z79.84 PIGMENT AND LACQUER MIXER (CURRENT) USE OF ORAL HYPOGLYC 08/06/2019 TAMANNA CORONADO MD, Ot Z79.89 9 OTHER PIGMENT AND LACQUER MIXER (CURRENT) DRUG THERAPY 08/06/2019 TAMANNA CORONADO MD, Ot Z80.0 FAMILY HISTORY OF MALIGNANT NEOPLASM OF 08/06/2019 TAMANNA CORONADO MD, Ot Z80.1 FAMILY HISTORY OF MALIG NEOPLASM OF [place] 08/06/2019 TAMANNA CORONADO MD, Ot Z80.3 FAMILY HISTORY OF MALIGNANT NEOPLASM OF 08/06/2019 TAMANNA CORONADO MD, Ot Z82.49 FAMILY HX OF ISCHEM HEART DIS AND OTH DI 08/06/2019 TAMANNA CORONADO MD, Ot Z83.3 FAMILY HISTORY OF DIABETES MELLITUS 08/06/2019 TAMANNA CORONADO MD, Ot Z90.49 ACQUIRED ABSENCE OF OTHER SPECIFIED PART 08/06/2019 TAMANNA CORONADO MD Ot Z90.71 0 ACQUIRED ABSENCE OF BOTH CERVIX AND UTER 08/06/2019 TAMANNA CORONADO MD Ot Z90.89 ACQUIRED ABSENCE OF OTHER ORGANS 09/07/2019 Ot 272.4 HYPE RLIPIDEMIA NEC/NOS 09/07/2019 Ot 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 09/07/2019 Ot 401.9 HYPE RTENSION NOS 09/07/[address] PAIN NOS 09/07/2019 MADL, ALBIN L PLANT CLERK Ot 571 .8 CHRONIC LIVER DIS NEC 09/07/2019 MADL, ALBIN L PLANT CLERK Ot 592 .0 CALCULUS OF KIDNEY 09/07/2019 BERT JASON HAMMERER TAB Ot 611.71 MASTODYNIA 09/07/2019 MADL, ALBIN L PLANT CLERK Ot M79.662 PAIN IN LEFT LOWER LEG 09/07/2019 Alan BAILEY MD Ot I50 .9 HEART FAILURE, UNSPECIFIED 09/07/2019 Alan BAILEY MD Ot Z53.29 PROC/TRTMT NOT CRD OUT BEC PT DECISION F 09/07/2019 Alan BAILEY MD Ot E13 .9 OTHER SPECIFIED DIABETES MELLITUS WITHOU 09/07/2019 LEO MALIN, Alan GARCIA Ot E78 .2 MIXED HYPERLIPIDEMIA 09/07/2019 LEO MALIN, Alan GARCIA Ot I10 ESSENTIAL (PRIMARY) HYPERTENSION 09/07/2019 Alan BAILEY MD Ot R06.00 DYSPNEA, UNSPECIFIED 09/07/2019 Alan BAILEY MD Ot R07 .9 CHEST PAIN, UNSPECIFIED 09/07/2019 Alan BAILEY MD Ot E13 .9 OTHER SPECIFIED DIABETES MELLITUS WITHOU 09/07/2019 Alan BAILEY MD Ot E78 .2 MIXED HYPERLIPIDEMIA 09/07/2019 Alan BAILEY MD Ot I10 ESSENTIAL (PRIMARY) HYPERTENSION 09/07/2019 Alan BAILEY MD Ot R06.00 DYSPNEA, UNSPECIFIED 09/07/2019 Alan BAILEY MD Ot R07 .9 CHEST PAIN, UNSPECIFIED 09/07/2019 SERINA, TOBY S HAMMERER TAB Ot I51.7 CARDIOMEGALY 09/07/2019 SERINA, TOBY S HAMMERER TAB Ot R0 5 COUGH 09/07/2019 SERINA, TOBY S HAMMERER TAB Ot R06.2 WHEEZING 09/07/2019 Ot 272.4 HYPE RLIPIDEMIA NEC/NOS 09/07/2019 Ot 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 09/07/2019 Ot 401.9 HYPE RTENSION NOS 09/07/[address] PAIN NOS 09/07/2019 MADL, ALBIN L PLANT CLERK Ot 571 .8 CHRONIC LIVER DIS NEC 09/07/2019 MADL, ALBIN L PLANT CLERK Ot 592 .0 CALCULUS OF KIDNEY 09/07/2019 BERT JASON HAMMERER TAB Ot 611.71 MASTODYNIA 09/07/2019 MADL, ALBIN L PLANT CLERK Ot M79.662 PAIN IN LEFT LOWER LEG 09/07/2019 Alan BAILEY MD Ot I50 .9 HEART FAILURE, UNSPECIFIED 09/07/2019 LEO MALIN, Alan GARCIA Ot Z53.29 PROC/TRTMT NOT CRD OUT BEC PT DECISION F 09/07/2019 Alan BAILEY MD Ot E13 .9 OTHER SPECIFIED DIABETES MELLITUS WITHOU 09/07/2019 LEO MALIN, Alan GARCIA Ot E78 .2 MIXED HYPERLIPIDEMIA 09/07/2019 ELO MALIN, Alan GARCIA Ot I10 ESSENTIAL (PRIMARY) HYPERTENSION 09/07/2019 Alan BAILEY MD Ot R06.00 DYSPNEA, UNSPECIFIED 09/07/2019 Alan BAILEY MD Ot R07 .9 CHEST PAIN, UNSPECIFIED 09/07/2019 Alan BAILEY MD Ot E13 .9 OTHER SPECIFIED DIABETES MELLITUS WITHOU 09/07/2019 Alan BAILEY MD Ot E78 .2 MIXED HYPERLIPIDEMIA 09/07/2019 Alan BAILEY MD Ot I10 ESSENTIAL (PRIMARY) HYPERTENSION 09/07/2019 Alan BAILEY MD Ot R06.00 DYSPNEA, UNSPECIFIED 09/07/2019 Alan BAILEY MD Ot R07 .9 CHEST PAIN, UNSPECIFIED 09/07/2019 SERINA TOBY S HAMMERER TAB Ot I51.7 CARDIOMEGALY 09/07/2019 SERINA TOBY S HAMMERER TAB Ot R0 5 COUGH 09/07/2019 SERINA TOBY S HAMMERER TAB Ot R06.2 WHEEZING 09/07/2019 Ot 272.4 HYPE RLIPIDEMIA NEC/NOS 09/07/2019 Ot 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 09/07/2019 Ot 401.9 HYPE RTENSION NOS 09/07/[address] PAIN NOS 09/07/2019 MADL, ALBIN L PLANT CLERK Ot 571 .8 CHRONIC LIVER DIS NEC 09/07/2019 MADL, ALBIN L PLANT CLERK Ot 592 .0 CALCULUS OF KIDNEY 09/07/2019 BERT JASON HAMMERER TAB Ot 611.71 MASTODYNIA 09/07/2019 MADL, ALBIN L PLANT CLERK Ot M79.662 PAIN IN LEFT LOWER LEG 09/07/2019 Alan BAILEY MD Ot I50 .9 HEART FAILURE, UNSPECIFIED 09/07/2019 LEO MALIN, Alan GARCIA Ot Z53.29 PROC/TRTMT NOT CRD OUT BEC PT DECISION F 09/07/2019 LEO MALIN, Alan GARCIA Ot E13 .9 OTHER SPECIFIED DIABETES MELLITUS WITHOU 09/07/2019 LEO MALIN, Alan GARCIA Ot E78 .2 MIXED HYPERLIPIDEMIA 09/07/2019 LEO MALIN, Alan GARCIA Ot I10 ESSENTIAL (PRIMARY) HYPERTENSION 09/07/2019 LEO MALIN, Alan GARCIA Ot R06.00 DYSPNEA, UNSPECIFIED 09/07/2019 LEO MALIN, Alan GARCIA Ot R07 .9 CHEST PAIN, UNSPECIFIED 09/07/2019 Alan BAILEY MD Ot E13 .9 OTHER SPECIFIED DIABETES MELLITUS WITHOU 09/07/2019 LEO MALIN, Alan GARCIA Ot E78 .2 MIXED HYPERLIPIDEMIA 09/07/2019 LEO MALIN, Alan GARCIA Ot I10 ESSENTIAL (PRIMARY) HYPERTENSION 09/07/2019 LEO MALIN, Alan GARCIA Ot R06.00 DYSPNEA, UNSPECIFIED 09/07/2019 Alan BAILEY MD Ot R07 .9 CHEST PAIN, UNSPECIFIED 09/07/2019 SERINA, TOBY S HAMMERER TAB Ot I51.7 CARDIOMEGALY 09/07/2019 SERINA, TOBY S HAMMERER TAB Ot R0 5 COUGH 09/07/2019 SERINA, TOBY S HAMMERER TAB Ot R06.2 WHEEZING 09/08/2019 Ot 272.4 HYPE RLIPIDEMIA NEC/NOS 09/08/2019 Ot 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 09/08/2019 Ot 401.9 HYPE RTENSION NOS 09/08/[address] PAIN NOS 09/08/2019 MADLAIMEEA L PLANT CLERK Ot 571 .8 CHRONIC LIVER DIS NEC 09/08/2019 MADL ALBIN L PLANT CLERK Ot 592 .0 CALCULUS OF KIDNEY 09/08/2019 BERT JASON HAMMERER TAB Ot 611.71 MASTODYNIA 09/08/2019 AIMEE RENAEA L PLANT CLERK Ot M79.662 PAIN IN LEFT LOWER LEG 09/08/2019 Alan BAILEY MD RADHA Ot I50 .9 HEART FAILURE, UNSPECIFIED 09/08/2019 LEO MALIN, Alan GARCIA Ot Z53.29 PROC/TRTMT NOT CRD OUT BEC PT DECISION F 09/08/2019 LEO MALIN, Alan GARCIA Ot E13 .9 OTHER SPECIFIED DIABETES MELLITUS WITHOU 09/08/2019 LEO MALIN, Alan GARCIA Ot E78 .2 MIXED HYPERLIPIDEMIA 09/08/2019 LEO MALIN, M RADHA Ot I10 ESSENTIAL (PRIMARY) HYPERTENSION 09/08/2019 LEO MALIN, M RADHA Ot R06.00 DYSPNEA, UNSPECIFIED 09/08/2019 LEO MALIN, Alan GARCIA Ot R07 .9 CHEST PAIN, UNSPECIFIED 09/08/2019 LEO MALIN, M RADHA Ot E13 .9 OTHER SPECIFIED DIABETES MELLITUS WITHOU 09/08/2019 LEO MALIN, Alan GARCIA Ot E78 .2 MIXED HYPERLIPIDEMIA 09/08/2019 LEO MALIN, M RADHA Ot I10 ESSENTIAL (PRIMARY) HYPERTENSION 09/08/2019 LEO MALIN, M RADHA Ot R06.00 DYSPNEA, UNSPECIFIED 09/08/2019 Alan BAILEY MD Ot R07 .9 CHEST PAIN, UNSPECIFIED 09/08/2019 TOBY SMALLS S HAMMERER TAB Ot I51.7 CARDIOMEGALY 09/08/2019 TOBY SMALLS S HAMMERER TAB Ot R0 5 COUGH 09/08/2019 TOBY SMALLS S HAMMERER TAB Ot R06.2 WHEEZING 09/09/2019 CARLITOS SINGH DARRELL Ot E11.40 TYPE 2 DIABETES MELLITUS WITH DIABETIC N 09/09/2019 CARLITOS SINGH DARRELL Ot E66.01 MORBID (SEVERE) OBESITY DUE TO EXCESS CA 09/09/2019 CARLITOS DO, DARRELL Ot E78.00 PURE HYPERCHOLESTEROLEMIA, UNSPECIFIED 09/09/2019 CARLITOS SINGH DARRELL Ot E87.1 HYPO-OSMOLALITY AND HYPONATREMIA 09/09/2019 CARLITOS SINGH, DARRELL Ot E87.2 ACIDOSIS 09/09/2019 CARLITOS SINGH DARRELL Ot F17.21 0 NICOTINE DEPENDENCE, CIGARETTES, UNCOMPL 09/09/2019 CARLITOS SINGH DARRELL Ot F32.9 MAJOR DEPRESSIVE DISORDER, SINGLE EPISOD 09/09/2019 URBINA DO, DARRELL Ot F41.9 ANXIETY DISORDER, UNSPECIFIED 09/09/2019 URBINA DO, DARRELL Ot H93.19 TINNITUS, UNSPECIFIED EAR 09/09/2019 URBINA DO, DARRELL Ot I11.0 HYPERTENSIVE HEART DISEASE WITH HEART FA 09/09/2019 URBINA DO, DARRELL Ot I42.9 CARDIOMYOPATHY, UNSPECIFIED 09/09/2019 URBINA DO, DARRELL Ot I48.0 PAROXYSMAL ATRIAL FIBRILLATION 09/09/2019 URBINA DO, DARRELL Ot I50.9 HEART FAILURE, UNSPECIFIED 09/09/2019 URBINA DO, DARRELL Ot J10.00 FLU DUE TO OTH IDENT FLU VIRUS W UNSP TY 09/09/2019 URBINA DO, DARRELL Ot J43.9 EMPHYSEMA, UNSPECIFIED 09/09/2019 URBINA DO, DARRELL Ot J96.20 ACUTE AND CHR RESP FAILURE, UNSP W HYPOX 09/09/2019 CARLITOS DO, DARRELL Ot J98.11 ATELECTASIS 09/09/2019 CARLITOS DO, DARRELL Ot K21.9 GASTRO-ESOPHAGEAL REFLUX DISEASE WITHOUT 09/09/2019 URBINA DO, DARRELL Ot M19.91 PRIMARY OSTEOARTHRITIS, UNSPECIFIED SITE 09/09/2019 CARLITOS DO, DARRELL Ot N30.00 ACUTE CYSTITIS WITHOUT HEMATURIA 09/09/2019 CARLITOS SINGH, DARRELL Ot Z68.39 BODY MASS INDEX (BMI) 39.0-39.9, ADULT 09/09/2019 CARLITOS DO, DARRELL Ot Z79.01 SENIOR LIVING (CURRENT) USE OF ANTICOAGULANT 09/09/2019 CARLITOS DO, DARRELL Ot Z79.4 PIGMENT AND LACQUER MIXER (CURRENT) USE OF INSULIN 09/09/2019 CARLITOS DO, DARRELL Ot Z91.19 PATIENT'S NONCOMPLIANCE W OT MEDICAL TR 09/09/2019 CARLITOS DO, DARRELL Ot Z99.81 DEPENDENCE ON SUPPLEMENTAL OXYGEN 09/10/2019 Ot 272.4 HYPE RLIPIDEMIA NEC/NOS 09/10/2019 Ot 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 09/10/2019 Ot 401.9 HYPE RTENSION NOS 09/10/[address] PAIN NOS 09/10/2019 ALBIN RENAE L PLANT CLERK Ot 571 .8 CHRONIC LIVER DIS NEC 09/10/2019 AIMEE RENAEA L PLANT CLERK Ot 592 .0 CALCULUS OF KIDNEY 09/10/2019 BERT JASON HAMMERER TAB Ot 611.71 MASTODYNIA 09/10/2019 OC ALBIN Alanis PLANT CLERK Ot M79.662 PAIN IN LEFT LOWER LEG 09/10/2019 LEO MALIN, Alan GARCIA Ot I50 .9 HEART FAILURE, UNSPECIFIED 09/10/2019 LEO MALIN, Alan GARCIA Ot Z53.29 PROC/TRTMT NOT CRD OUT BEC PT DECISION F 09/10/2019 LEO MALIN, M RADHA Ot E13 .9 OTHER SPECIFIED DIABETES MELLITUS WITHOU 09/10/2019 LEO MALIN, M RADHA Ot E78 .2 MIXED HYPERLIPIDEMIA 09/10/2019 LEO MALIN, Alan GARCIA Ot I10 ESSENTIAL (PRIMARY) HYPERTENSION 09/10/2019 LEO MALIN, M RADHA Ot R06.00 DYSPNEA, UNSPECIFIED 09/10/2019 LEO MALIN, Alan GARCIA Ot R07 .9 CHEST PAIN, UNSPECIFIED 09/10/2019 LEO MALIN, M RADHA Ot E13 .9 OTHER SPECIFIED DIABETES MELLITUS WITHOU 09/10/2019 LEO MALIN, M RADHA Ot E78 .2 MIXED HYPERLIPIDEMIA 09/10/2019 LEO MALIN, M RADHA Ot I10 ESSENTIAL (PRIMARY) HYPERTENSION 09/10/2019 LEO MALIN, M RADHA Ot R06.00 DYSPNEA, UNSPECIFIED 09/10/2019 LEO MALIN, Alan GARCIA Ot R07 .9 CHEST PAIN, UNSPECIFIED 09/10/2019 SERINA, TOBY S HAMMERER TAB Ot I51.7 CARDIOMEGALY 09/10/2019 SERINA TOBY S HAMMERER TAB Ot R0 5 COUGH 09/10/2019 SERINA TOBY S HAMMERER TAB Ot R06.2 WHEEZING 09/10/2019 DARRELL URBINA DO Ot E11.40 TYPE 2 DIABETES MELLITUS WITH DIABETIC N 09/10/2019 ANANYA URBINA DOI Ot E66.01 MORBID (SEVERE) OBESITY DUE TO EXCESS CA 09/10/2019 ANANYA URBINA DOI Ot E78.00 PURE HYPERCHOLESTEROLEMIA, UNSPECIFIED 09/10/2019 URBINA DO, DARRELL Ot E87.1 HYPO-OSMOLALITY AND HYPONATREMIA 09/10/2019 URBINA DO, DARRELL Ot E87.2 ACIDOSIS 09/10/2019 URBINA DO, DARRELL Ot F17.21 0 NICOTINE DEPENDENCE, CIGARETTES, UNCOMPL 09/10/2019 URBINA DO, DARRELL Ot F32.9 MAJOR DEPRESSIVE DISORDER, SINGLE EPISOD 09/10/2019 URBINA DO, DARRELL Ot F41.9 ANXIETY DISORDER, UNSPECIFIED 09/10/2019 URBINA DO, DARRELL Ot H93.19 TINNITUS, UNSPECIFIED EAR 09/10/2019 URBINA DO, DARRELL Ot I11.0 HYPERTENSIVE HEART DISEASE WITH HEART FA 09/10/2019 URBINA DO, DARRELL Ot I42.9 CARDIOMYOPATHY, UNSPECIFIED 09/10/2019 URBINA DO, DARRELL Ot I48.0 PAROXYSMAL ATRIAL FIBRILLATION 09/10/2019 URBINA DO, DARRELL Ot I50.9 HEART FAILURE, UNSPECIFIED 09/10/2019 URBINA DO, DARRELL Ot J10.00 FLU DUE TO OT IDENT FLU VIRUS W UNSP TY 09/10/2019 URBINA DO, DARRELL Ot J43.9 EMPHYSEMA, UNSPECIFIED 09/10/2019 URBINA DO, DARRELL Ot J96.20 ACUTE AND CHR RESP FAILURE, UNSP W HYPOX 09/10/2019 URBINA DO, DARRELL Ot J98.11 ATELECTASIS 09/10/2019 URBINA DO, DARRELL Ot K21.9 GASTRO-ESOPHAGEAL REFLUX DISEASE WITHOUT 09/10/2019 URBINA DO, DARRELL Ot M19.91 PRIMARY OSTEOARTHRITIS, UNSPECIFIED SITE 09/10/2019 URBINA DO, DARRELL Ot N30.00 ACUTE CYSTITIS WITHOUT HEMATURIA 09/10/2019 CARLITOS DO DARRELL Ot Z68.39 BODY MASS INDEX (BMI) 39.0-39.9, ADULT 09/10/2019 URBINA DO, DARRELL Ot Z79.01 PIGMENT AND LACQUER MIXER (CURRENT) USE OF ANTICOAGULANT 09/10/2019 CARLITOS DO, DARRELL Ot Z79.4 PIGMENT AND LACQUER MIXER (CURRENT) USE OF INSULIN 09/10/2019 CARLITOS DO, DARRELL Ot Z91.19 PATIENT'S NONCOMPLIANCE W [facility] MEDICAL TR 09/10/2019 CARLITOS DO DARRELL Ot Z99.81 DEPENDENCE ON SUPPLEMENTAL OXYGEN 09/11/2019 CARLITOS DO DARRELL Ot A41.9 SEPSIS, UNSPECIFIED ORGANISM 09/11/2019 URBINA DO, DARRELL Ot B96.20 UNSP ESCHERICHIA COLI THE CAUSE OF DI 09/11/2019 CARLITOS DO, DARRELL Ot E11.40 TYPE 2 DIABETES MELLITUS WITH DIABETIC N 09/11/2019 URBINA DO, DARRELL Ot E66.01 MORBID (SEVERE) OBESITY DUE TO EXCESS CA 09/11/2019 URBINA DO, DARRELL Ot E78.00 PURE HYPERCHOLESTEROLEMIA, UNSPECIFIED 09/11/2019 URBINA DO, DARRELL Ot E87.1 HYPO-OSMOLALITY AND HYPONATREMIA 09/11/2019 URBINA DO, DARRELL Ot E87.2 ACIDOSIS 09/11/2019 URBINA DO, DARRELL Ot F17.21 0 NICOTINE DEPENDENCE, CIGARETTES, UNCOMPL 09/11/2019 CARLITOS DO, DARRELL Ot F32.9 MAJOR DEPRESSIVE DISORDER, SINGLE EPISOD 09/11/2019 CARLITOS DO, DARRELL Ot F41.9 ANXIETY DISORDER, UNSPECIFIED 09/11/2019 URBINA DO, DARRELL Ot I11.0 HYPERTENSIVE HEART DISEASE WITH HEART FA 09/11/2019 CARLITOS DO, DARRELL Ot I42.9 CARDIOMYOPATHY, UNSPECIFIED 09/11/2019 URBINA DO, DARRELL Ot I48.0 PAROXYSMAL ATRIAL FIBRILLATION 09/11/2019 CARLITOS DO, DARRELL Ot I50.9 HEART FAILURE, UNSPECIFIED 09/11/2019 URBINA DO, DARRELL Ot J10.00 FLU DUE TO OTH IDENT FLU VIRUS W UNSP TY 09/11/2019 CARLITOS DO, DARRELL Ot J10.1 FLU DUE TO OTH IDENT INFLUENZA VIRUS W O 09/11/2019 CARLITOS DO, DARRELL Ot J43.9 EMPHYSEMA, UNSPECIFIED 09/11/2019 URBINA DO, DARRELL Ot J96.21 ACUTE AND CHRONIC RESPIRATORY FAILURE WI 09/11/2019 URBINA DO, DARRELL Ot J98.11 ATELECTASIS 09/11/2019 CARLITOS DO, DARRELL Ot K21.9 GASTRO-ESOPHAGEAL REFLUX DISEASE WITHOUT 09/11/2019 CARLITOS DO, DARRELL Ot M19.90 UNSPECIFIED OSTEOARTHRITIS, UNSPECIFIED 09/11/2019 CARLITOS DO, DARRELL Ot N39.0 URINARY TRACT INFECTION, SITE NOT SPECIF 09/11/2019 CARLITOS SINGH DARRELL Ot Z16.12 EXTENDED SPECTRUM BETA LACTAMASE (ESBL) 09/11/2019 DARRELL URBINA DO Ot Z68.39 BODY MASS INDEX (BMI) 39.0-39.9, ADULT 09/11/2019 DARRELL URBINA DO Ot Z79.01 PIGMENT AND LACQUER MIXER (CURRENT) USE OF ANTICOAGULANT 09/11/2019 ANANYA URBINA DOI Ot Z79.4 PIGMENT AND LACQUER MIXER (CURRENT) USE OF INSULIN 09/11/2019 DARRELL URBINA DO Ot Z91.19 PATIENT'S NONCOMPLIANCE W OTH MEDICAL TR 09/11/2019 DARRELL URBINA DO Ot Z99.81 DEPENDENCE ON SUPPLEMENTAL OXYGEN 10/12/2019 Ot 272.4 HYPE RLIPIDEMIA NEC/NOS 10/12/2019 Ot 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 10/12/2019 Ot 401.9 HYPE RTENSION NOS 10/12/[address] PAIN NOS 10/12/2019 MADL, ALBIN L PLANT CLERK Ot 571 .8 CHRONIC LIVER DIS NEC 10/12/2019 MADL, ALBIN L PLANT CLERK Ot 592 .0 CALCULUS OF KIDNEY 10/12/2019 BERT JASON HAMMERER TAB Ot 611.71 MASTODYNIA 10/12/2019 MADL, ALBIN L PLANT CLERK Ot M79.662 PAIN IN LEFT LOWER LEG 10/12/2019 LEO MALIN, Alan GARCIA Ot I50 .9 HEART FAILURE, UNSPECIFIED 10/12/2019 LEO MALIN, Alan GARCIA Ot Z53.29 PROC/TRTMT NOT CRD OUT BEC PT DECISION F 10/12/2019 Alan BAILEY MD Ot E13 .9 OTHER SPECIFIED DIABETES MELLITUS WITHOU 10/12/2019 LEO MALIN, Alan GARCIA Ot E78 .2 MIXED HYPERLIPIDEMIA 10/12/2019 Alan BAILEY MD Ot I10 ESSENTIAL (PRIMARY) HYPERTENSION 10/12/2019 Alan BAILEY MD Ot R06.00 DYSPNEA, UNSPECIFIED 10/12/2019 Alan BAILEY MD Ot R07 .9 CHEST PAIN, UNSPECIFIED 10/12/2019 Alan BAILEY MD Ot E13 .9 OTHER SPECIFIED DIABETES MELLITUS WITHOU 10/12/2019 Alan BAILEY MD Ot E78 .2 MIXED HYPERLIPIDEMIA 10/12/2019 Alan BAILEY MD Ot I10 ESSENTIAL (PRIMARY) HYPERTENSION 10/12/2019 Alan BAILEY MD Ot R06.00 DYSPNEA, UNSPECIFIED 10/12/2019 Alan BAILEY MD Ot R07 .9 CHEST PAIN, UNSPECIFIED 10/12/2019 TOBY SMALLS S HAMMERER TAB Ot I51.7 CARDIOMEGALY 10/12/2019 SERINA, TOBY S HAMMERER TAB Ot R0 5 COUGH 10/12/2019 SERINA, TOBY S HAMMERER TAB Ot R06.2 WHEEZING 10/12/2019 Ot 272.4 HYPE RLIPIDEMIA NEC/NOS 10/12/2019 Ot 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 10/12/2019 Ot 401.9 HYPE RTENSION NOS 10/12/[address] PAIN NOS 10/12/2019 MADL, ALBIN L PLANT CLERK Ot 571 .8 CHRONIC LIVER DIS NEC 10/12/2019 MADL, ALBIN L PLANT CLERK Ot 592 .0 CALCULUS OF KIDNEY 10/12/2019 EREN, BERT A HAMMERER TAB Ot 611.71 MASTODYNIA 10/12/2019 MADL, ALBIN L PLANT CLERK Ot M79.662 PAIN IN LEFT LOWER LEG 10/12/2019 Alan BAILEY MD Ot I50 .9 HEART FAILURE, UNSPECIFIED 10/12/2019 Alan BAILEY MD Ot Z53.29 PROC/TRTMT NOT CRD OUT BEC PT DECISION F 10/12/2019 Alan BAILEY MD Ot E13 .9 OTHER SPECIFIED DIABETES MELLITUS WITHOU 10/12/2019 Alan BAILEY MD Ot E78 .2 MIXED HYPERLIPIDEMIA 10/12/2019 Alan BAILEY MD Ot I10 ESSENTIAL (PRIMARY) HYPERTENSION 10/12/2019 Alan BAILEY MD Ot R06.00 DYSPNEA, UNSPECIFIED 10/12/2019 Alan BAILEY MD Ot R07 .9 CHEST PAIN, UNSPECIFIED 10/12/2019 Alan BAILEY MD Ot E13 .9 OTHER SPECIFIED DIABETES MELLITUS WITHOU 10/12/2019 Alan BAILEY MD Ot E78 .2 MIXED HYPERLIPIDEMIA 10/12/2019 LEO MALIN, Alan GARCIA Ot I10 ESSENTIAL (PRIMARY) HYPERTENSION 10/12/2019 LEO MALIN, Alan GARCIA Ot R06.00 DYSPNEA, UNSPECIFIED 10/12/2019 Alan BAILEY MD Ot R07 .9 CHEST PAIN, UNSPECIFIED 10/12/2019 SERINA, TOBY S HAMMERER TAB Ot I51.7 CARDIOMEGALY 10/12/2019 SERINA, TOBY S HAMMERER TAB Ot R0 5 COUGH 10/12/2019 SERINA, TOBY S HAMMERER TAB Ot R06.2 WHEEZING 10/12/2019 Ot 272.4 HYPE RLIPIDEMIA NEC/NOS 10/12/2019 Ot 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 10/12/2019 Ot 401.9 HYPE RTENSION NOS 10/12/[address] PAIN NOS 10/12/2019 MADL, ALBIN L PLANT CLERK Ot 571 .8 CHRONIC LIVER DIS NEC 10/12/2019 MADL, ALBIN L PLANT CLERK Ot 592 .0 CALCULUS OF KIDNEY 10/12/2019 EREN, BERT A HAMMERER TAB Ot 611.71 MASTODYNIA 10/12/2019 MADL, ALBIN L PLANT CLERK Ot M79.662 PAIN IN LEFT LOWER LEG 10/12/2019 Alan BAILEY MD Ot I50 .9 HEART FAILURE, UNSPECIFIED 10/12/2019 Alan BAILEY MD Ot Z53.29 PROC/TRTMT NOT CRD OUT BEC PT DECISION F 10/12/2019 Alan BAILEY MD Ot E13 .9 OTHER SPECIFIED DIABETES MELLITUS WITHOU 10/12/2019 Alan BAILEY MD Ot E78 .2 MIXED HYPERLIPIDEMIA 10/12/2019 LEO MALIN, Alan GARCIA Ot I10 ESSENTIAL (PRIMARY) HYPERTENSION 10/12/2019 Alan BAILEY MD Ot R06.00 DYSPNEA, UNSPECIFIED 10/12/2019 Alan BAILEY MD Ot R07 .9 CHEST PAIN, UNSPECIFIED 10/12/2019 Alan BAILEY MD Ot E13 .9 OTHER SPECIFIED DIABETES MELLITUS WITHOU 10/12/2019 Alan BAILEY MD Ot E78 .2 MIXED HYPERLIPIDEMIA 10/12/2019 Alan BAILEY MD Ot I10 ESSENTIAL (PRIMARY) HYPERTENSION 10/12/2019 LEO MALIN, Alan GARCIA Ot R06.00 DYSPNEA, UNSPECIFIED 10/12/2019 Alan BAILEY MD Ot R07 .9 CHEST PAIN, UNSPECIFIED 10/12/2019 SERINA, TOBY S HAMMERER TAB Ot I51.7 CARDIOMEGALY 10/12/2019 SERINA, TOBY S HAMMERER TAB Ot R0 5 COUGH 10/12/2019 SERINA, TOBY S HAMMERER TAB Ot R06.2 WHEEZING 10/12/2019 Ot 272.4 HYPE RLIPIDEMIA NEC/NOS 10/12/2019 Ot 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 10/12/2019 Ot 401.9 HYPE RTENSION NOS 10/12/[address] PAIN NOS 10/12/2019 MADL, ALBIN L PLANT CLERK Ot 571 .8 CHRONIC LIVER DIS NEC 10/12/2019 MADL, ALBIN L PLANT CLERK Ot 592 .0 CALCULUS OF KIDNEY 10/12/2019 EREN BERT A HAMMERER TAB Ot 611.71 MASTODYNIA 10/12/2019 MADL, ALBNI L PLANT CLERK Ot M79.662 PAIN IN LEFT LOWER LEG 10/12/2019 LEO MALIN, Alan GARCIA Ot I50 .9 HEART FAILURE, UNSPECIFIED 10/12/2019 Alan BAILEY MD Ot Z53.29 PROC/TRTMT NOT CRD OUT BEC PT DECISION F 10/12/2019 Alan BAILEY MD Ot E13 .9 OTHER SPECIFIED DIABETES MELLITUS WITHOU 10/12/2019 Alan BAILEY MD Ot E78 .2 MIXED HYPERLIPIDEMIA 10/12/2019 Alan BAILEY MD Ot I10 ESSENTIAL (PRIMARY) HYPERTENSION 10/12/2019 Alan BAILEY MD Ot R06.00 DYSPNEA, UNSPECIFIED 10/12/2019 Alan BAILEY MD Ot R07 .9 CHEST PAIN, UNSPECIFIED 10/12/2019 Alan BAILEY MD Ot E13 .9 OTHER SPECIFIED DIABETES MELLITUS WITHOU 10/12/2019 LEO MALIN Alan GARCIA Ot E78 .2 MIXED HYPERLIPIDEMIA 10/12/2019 LEO MALIN, M RADHA Ot I10 ESSENTIAL (PRIMARY) HYPERTENSION 10/12/2019 LEO MALIN, M RADHA Ot R06.00 DYSPNEA, UNSPECIFIED 10/12/2019 LEO MALIN, M RADHA Ot R07 .9 CHEST PAIN, UNSPECIFIED 10/12/2019 SERINA, TOBY S HAMMERER TAB Ot I51.7 CARDIOMEGALY 10/12/2019 SERINA, TOBY S HAMMERER TAB Ot R0 5 COUGH 10/12/2019 SERINA, TOBY S HAMMERER TAB Ot R06.2 WHEEZING 10/14/2019 DEANDRE CUEVAS MD Ot A41 .9 SEPSIS, UNSPECIFIED ORGANISM 10/14/2019 DEANDRE CUEVAS MD Ot E11.40 TYPE 2 DIABETES MELLITUS WITH DIABETIC N 10/14/2019 DEANDRE CUEVAS MD Ot E78 .5 HYPERLIPIDEMIA, UNSPECIFIED 10/14/2019 DEANDRE CUEVAS MD Ot E87 .1 HYPO-OSMOLALITY AND HYPONATREMIA 10/14/2019 DEANDRE CUEVAS MD Ot F17.210 NICOTINE DEPENDENCE, CIGARETTES, UNCOMPL 10/14/2019 DEANDRE CUEVAS MD Ot F32 .9 MAJOR DEPRESSIVE DISORDER, SINGLE EPISOD 10/14/2019 DEANDRE CUEVAS MD Ot F41 .9 ANXIETY DISORDER, UNSPECIFIED 10/14/2019 DEANDRE CUEVAS MD Ot H93.19 TINNITUS, UNSPECIFIED EAR 10/14/2019 DEANDRE CUEVAS MD Ot I10 ESSENTIAL (PRIMARY) HYPERTENSION 10/14/2019 DEANDRE CUEVAS MD Ot I42 .9 CARDIOMYOPATHY, UNSPECIFIED 10/14/2019 DEANDRE CUEVAS MD Ot J18 .9 PNEUMONIA, UNSPECIFIED ORGANISM 10/14/2019 DEANDRE CUEVAS MD Ot J44 .9 CHRONIC OBSTRUCTIVE PULMONARY DISEASE, U 10/14/2019 DEANDRE CUEVAS MD Ot K21 .9 GASTRO-ESOPHAGEAL REFLUX DISEASE WITHOUT 10/14/2019 DEANDRE CUEVAS MD Ot L89.311 PRESSURE ULCER OF RIGHT BUTTOCK, STAGE 1 10/14/2019 DEANDRE CUEVAS MD Ot L89.321 PRESSURE ULCER OF LEFT BUTTOCK, STAGE 1 10/14/2019 DEANDRE CUEVAS MD Ot M19.91 PRIMARY OSTEOARTHRITIS, UNSPECIFIED SITE 10/14/2019 DEANDRE CUEVAS MD Ot R53 .1 WEAKNESS 10/14/2019 DEANDRE CUEVAS MD Ot R60 .9 EDEMA, UNSPECIFIED 10/14/2019 DEANDRE CUEVAS MD Ot Z79 .4 SENIOR LIVING (CURRENT) USE OF INSULIN 10/14/2019 DEANDRE CUEVAS MD Ot Z99.81 DEPENDENCE ON SUPPLEMENTAL OXYGEN 10/16/2019 Ot 272.4 HYPE RLIPIDEMIA NEC/NOS 10/16/2019 Ot 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 10/16/2019 Ot 401.9 HYPE RTENSION NOS 10/16/[address] PAIN NOS 10/16/2019 MADL, ALBIN L PLANT CLERK Ot 571 .8 CHRONIC LIVER DIS NEC 10/16/2019 MADL, ALBIN L PLANT CLERK Ot 592 .0 CALCULUS OF KIDNEY 10/16/2019 BERT JASON HAMMERER TAB Ot 611.71 MASTODYNIA 10/16/2019 MADL, ALBIN L PLANT CLERK Ot M79.662 PAIN IN LEFT LOWER LEG 10/16/2019 Alan BAILEY MD Ot I50 .9 HEART FAILURE, UNSPECIFIED 10/16/2019 Alan BAILEY MD Ot Z53.29 PROC/TRTMT NOT CRD OUT BEC PT DECISION F 10/16/2019 Alan BAILEY MD Ot E13 .9 OTHER SPECIFIED DIABETES MELLITUS WITHOU 10/16/2019 Alan BAILEY MD Ot E78 .2 MIXED HYPERLIPIDEMIA 10/16/2019 Alan BAILEY MD Ot I10 ESSENTIAL (PRIMARY) HYPERTENSION 10/16/2019 Alan BAILEY MD Ot R06.00 DYSPNEA, UNSPECIFIED 10/16/2019 Alan BAILEY MD Ot R07 .9 CHEST PAIN, UNSPECIFIED 10/16/2019 Alan BAILEY MD Ot E13 .9 OTHER SPECIFIED DIABETES MELLITUS WITHOU 10/16/2019 Alan BAILEY MD Ot E78 .2 MIXED HYPERLIPIDEMIA 10/16/2019 Alan BAILEY MD Ot I10 ESSENTIAL (PRIMARY) HYPERTENSION 10/16/2019 Alan BAILEY MD Ot R06.00 DYSPNEA, UNSPECIFIED 10/16/2019 Alan BAILEY MD Ot R07 .9 CHEST PAIN, UNSPECIFIED 10/16/2019 TOBY SMALLS S HAMMERER TAB Ot I51.7 CARDIOMEGALY 10/16/2019 SERINATOBY Aguiar S HAMMERER TAB Ot R0 5 COUGH 10/16/2019 SERINATOBY S HAMMERER TAB Ot R06.2 WHEEZING 10/17/2019 Ot 272.4 HYPE RLIPIDEMIA NEC/NOS 10/17/2019 Ot 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 10/17/2019 Ot 401.9 HYPE RTENSION NOS 10/17/[address] PAIN NOS 10/17/2019 MADL, ALBIN L PLANT CLERK Ot 571 .8 CHRONIC LIVER DIS NEC 10/17/2019 MADL, ALBIN L PLANT CLERK Ot 592 .0 CALCULUS OF KIDNEY 10/17/2019 EREN BERT A HAMMERER TAB Ot 611.71 MASTODYNIA 10/17/2019 MADL, ALBIN L PLANT CLERK Ot M79.662 PAIN IN LEFT LOWER LEG 10/17/2019 Alan BAILEY MD Ot I50 .9 HEART FAILURE, UNSPECIFIED 10/17/2019 Alan BAILEY MD Ot Z53.29 PROC/TRTMT NOT CRD OUT BEC PT DECISION F 10/17/2019 Alan BAILEY MD Ot E13 .9 OTHER SPECIFIED DIABETES MELLITUS WITHOU 10/17/2019 Alan BAILEY MD Ot E78 .2 MIXED HYPERLIPIDEMIA 10/17/2019 Alan BAILEY MD Ot I10 ESSENTIAL (PRIMARY) HYPERTENSION 10/17/2019 Alan BAILEY MD Ot R06.00 DYSPNEA, UNSPECIFIED 10/17/2019 Alan BAILEY MD Ot R07 .9 CHEST PAIN, UNSPECIFIED 10/17/2019 Alan BAILEY MD Ot E13 .9 OTHER SPECIFIED DIABETES MELLITUS WITHOU 10/17/2019 Alan BAILEY MD Ot E78 .2 MIXED HYPERLIPIDEMIA 10/17/2019 Alan BAILEY MD Ot I10 ESSENTIAL (PRIMARY) HYPERTENSION 10/17/2019 LEO MALIN, Alan GARCIA Ot R06.00 DYSPNEA, UNSPECIFIED 10/17/2019 Alan BAILEY MD Ot R07 .9 CHEST PAIN, UNSPECIFIED 10/17/2019 SERINA, TOBY S HAMMERER TAB Ot I51.7 CARDIOMEGALY 10/17/2019 SERINA, TOBY S HAMMERER TAB Ot R0 5 COUGH 10/17/2019 SERINA, TOBY S HAMMERER TAB Ot R06.2 WHEEZING 10/17/2019 Ot 272.4 HYPE RLIPIDEMIA NEC/NOS 10/17/2019 Ot 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 10/17/2019 Ot 401.9 HYPE RTENSION NOS 10/17/[address] PAIN NOS 10/17/2019 MADL, ALBIN L PLANT CLERK Ot 571 .8 CHRONIC LIVER DIS NEC 10/17/2019 MADL, ALBIN L PLANT CLERK Ot 592 .0 CALCULUS OF KIDNEY 10/17/2019 EREN, BERT A HAMMERER TAB Ot 611.71 MASTODYNIA 10/17/2019 MADL, ALBIN L PLANT CLERK Ot M79.662 PAIN IN LEFT LOWER LEG 10/17/2019 Alan BAILEY MD Ot I50 .9 HEART FAILURE, UNSPECIFIED 10/17/2019 Alan BAILEY MD Ot Z53.29 PROC/TRTMT NOT CRD OUT BEC PT DECISION F 10/17/2019 Alan BAILEY MD Ot E13 .9 OTHER SPECIFIED DIABETES MELLITUS WITHOU 10/17/2019 Alan BAILEY MD Ot E78 .2 MIXED HYPERLIPIDEMIA 10/17/2019 Alan BAILEY MD Ot I10 ESSENTIAL (PRIMARY) HYPERTENSION 10/17/2019 Alan BAILEY MD Ot R06.00 DYSPNEA, UNSPECIFIED 10/17/2019 Alan BAILEY MD Ot R07 .9 CHEST PAIN, UNSPECIFIED 10/17/2019 Alan BAILEY MD Ot E13 .9 OTHER SPECIFIED DIABETES MELLITUS WITHOU 10/17/2019 Alan BAILEY MD Ot E78 .2 MIXED HYPERLIPIDEMIA 10/17/2019 LEO MALIN, Alan GARCIA Ot I10 ESSENTIAL (PRIMARY) HYPERTENSION 10/17/2019 LEO MALIN, Alan GARCIA Ot R06.00 DYSPNEA, UNSPECIFIED 10/17/2019 LEO MALIN, Alan GARCIA Ot R07 .9 CHEST PAIN, UNSPECIFIED 10/17/2019 SERINA, TOBY S HAMMERER TAB Ot I51.7 CARDIOMEGALY 10/17/2019 SERINA, TOBY S HAMMERER TAB Ot R0 5 COUGH 10/17/2019 SERINA, TOBY S HAMMERER TAB Ot R06.2 WHEEZING Procedures Code Description [place] [address] ROUT INE VENIPUNCTURE 12/03/2013 47388 UA L AUGIE DIP 12/03/2013 56413 CBC 12/03/2013 [id number] GF R CALC (RESULT ONLY) 12/03/2013 34728 CMP 12/03/2013 75152 A1C (RML) 12/03/2013 52670 LIPASE 12/03/2013 58434 CULT URE URINE 12/06/2013 89351 UA W / CULTURE IF INDICATED 12/24/2013 86588 CULT URE URINE 12/29/2013 79356 ROUT INE VENIPUNCTURE 01/14/2014 65648 MICR O ALBUMIN-IN HOUSE 01/14/2014 [id number] GF R CALC (RESULT ONLY) 01/15/2014 78418 BMP 01/15/2014 75581 MICR OALBUMIN 01/15/2014 25415 XRAY SHOULDER RIGHT COMP 2 VIEWS 01/28/2014 36236 XRAY ELBOW R 2 VIEWS 01/28/2014 65087 UA W / CULTURE IF INDICATED 01/28/2014 42483 A1C (IN-HOUSE) 03/01/2014 42122 EKG, TRACING 03/30/2014 46670 OXIMETRY 03/30/2014 90065 ROUT INE VENIPUNCTURE 05/18/2014 88570 CBC 05/18/2014 5779372 GF R CALC (RESULT ONLY) 05/18/2014 61781 CMP 05/18/2014 26052 BNP 05/19/2014 13073 ROUT INE VENIPUNCTURE 07/01/2014 55641 XRAY FOOT RIGHT 2 VIEWS 07/01/2014 00246 CULT URE URINE 07/01/2014 35319 A1C (IN-HOUSE) 07/01/2014 1977859 GF R CALC (RESULT ONLY) 07/01/2014 83221 [facility] 07/01/2014 81807 ROUT INE VENIPUNCTURE 08/26/20148476943 GF R CALC (RESULT ONLY) 08/26/2014 28406 [facility] 08/26/[address] A BDOMEN W/O CONTRAST 11/17/2014 Results Test Result Range Capillary blood glucose measurement by g lucometer (mass/volume) - 04/18/17 19:19 Capillary blood glucose measurement by glucometer (mas s/volume) 399 mg/dL 70-110 Complete blood count (CBC) with automate d white blood cell (WBC) differential - 06/25/17 16:40 Blood leukocytes automated count (number/volume) 15.0 10*3/uL 4.3-11.0 Blood erythrocytes automated count (number/volume) 5.05 10*6/uL 4.35-5.85 Venous blood hemoglobin measurement (mass/volume) 14.4 g/dL 11.5-16.0 Blood hematocrit (volume fraction) 44 % 35-52 Automated erythrocyte mean corpuscular volume 88 [ foz_us] 80-99 Automated erythrocyte mean corpuscular h emoglobin (mass per erythrocyte) 29 pg 25-34 Automated erythrocyte mean corpuscular h emoglobin concentration measurement (mass/volume) 33 g/dL 32-36 Automated erythrocyte distribution width ratio 14. 8 % 10.0- 14.5 Automated blood platelet count (count/volume) 247 10*3/uL [...] 10*3 1.0-4.0 Blood monocytes automated count (number/volume) 1. 1 10*3 0.0-1.0 Automated eosinophil count 0.4 10*3/uL 0 .0-0.3 Automated blood basophil count (count/volume) 0.1 10*3/uL 0.0-0.1 PT panel in platelet poor plasma by coag ulation assay - 06/25/17 16:40 Prothrombin time (PT) in platelet poor plasma by coagu lation assay 14.7 s 12.2-14.7 INR in platelet poor plasma or blood by coagulation as say 1.1 0.8-1.4 Activated partial thromboplastin time (a PTT) in platelet poor plasma bycoagulation assay - 06/25/17 16:40 Activated partial thromboplastin time (a PTT) in platelet poor plasma bycoagulation assay 33 s 24-35 Fibrin D-dimer FEU measurement in platel et poor plasma (mass/volume) - 06/25/17 16:40 Fibrin D-dimer FEU measurement in platelet [...] 5-14 Serum or plasma urea nitrogen measurement (mass/volume ) 18 mg/dL 7-18 Serum or plasma creatinine measurement (mass/volume) 0.86 mg/dL 0.60-1.30 Serum or plasma urea nitrogen/creatinine mass ratio 21 NRG Serum or plasma creatinine measurement w ith calculation of estimated glomerular filtration rate > NRG Serum or plasma glucose measurement (mass/volume) 304 mg/dL 70-105 Serum or plasma calcium measurement (mass/volume) 9.6 mg/dL 8.5-10.1 Serum or plasma total bilirubin measurement (mass/volu me) 0.3 mg/dL 0.1-1.0 Serum or plasma alkaline phosphatase edanna surement (enzymatic activity/volume) 81 U/L 40-136 Serum or plasma aspartate aminotransfera se measurement (enzymatic activity/volume) 30 U/L 5-34 Serum or plasma alanine aminotransferase measurement (enzymatic activity/volume) 26 U/L 0-55 Serum or plasma protein measurement (mass/volume) 8.0 g/dL 6.4-8.2 Serum or plasma albumin measurement (mass/volume) 3.4 g/dL 3.2-4.5 Blood manual differential performed dete ction - 06/25/17 16:40 Blood monocytes/100 leukocytes 5 % NRG Manual blood segmented neutrophils/100 leukocytes 60 % NRG Blood band neutrophils/100 leukocytes 0 % NRG Manual blood lymphocytes/100 leukocytes 32 % NRG Manual eosinophils/100 leukocytes in nose 2 % NRG Manual blood basophils/100 leukocytes 1 % NRG Blood erythrocyte morphology finding identification NORMAL NRG Serum or plasma troponin i.cardiac measu rement (mass/volume) - 06/25/17 16:40 Serum or plasma troponin i.cardiac measurement (mass/v olume) < ng/mL <0.30 Serum or plasma lithium measurement (mol es/volume) - 06/25/17 16:40 BNP level < pg/mL <100.0 Complete urinalysis with reflex to cultu re - 06/25/17 16:55 Urine color determination YELLOW NRG Urine clarity determination CLEAR NR G Urine pH measurement by test strip 5 5-9 Specific gravity of urine by test strip 1.010 1.016-1.022 Urine protein assay by test strip, semi-quantitative NEGATIVE NEGATIVE Urine glucose detection by automated test strip 4+ NEGATIVE Erythrocytes detection in urine sediment by light micr oscopy NEGATIVE NEGATIVE Urine ketones detection by automated test strip NE GATIVE NEGATIVE Urine nitrite detection by test strip NEGATIVE NEGATIVE Urine total bilirubin detection by test strip NEGA TIVE NEGATIVE Urine urobilinogen measurement by automated test strip (mass/volume) NORMAL NORMAL Urine leukocyte esterase detection by dipstick NEG ATIVE NEGATIVE Automated urine sediment erythrocyte cou nt by microscopy (number/high power field) NONE NRG Automated urine sediment leukocyte count by microscopy (number/high power field) [HPF] NRG Bacteria detection in urine sediment by light microsco py NONE NRG Squamous epithelial cells detection in u rine sediment by light microscopy RARE NRG Crystals detection in urine sediment by light microsco py NONE NRG Casts detection in urine sediment by light microscopy NONE NRG Mucus detection in urine sediment by light microscopy NEGATIVE NRG Complete urinalysis with reflex to culture NO NRG Capillary blood glucose measurement by g lucometer (mass/volume) - 06/25/17 20:31 Capillary blood glucose measurement by glucometer (mas s/volume) 194 mg/dL 70-110 Capillary blood glucose measurement by g lucometer (mass/volume) - 06/25/17 23:30 Capillary blood glucose measurement by glucometer (mas s/volume) 207 mg/dL 70-110 Capillary blood glucose measurement by g lucometer (mass/volume) - 06/26/17 05:14 Capillary blood glucose measurement by glucometer (mas s/volume) 288 mg/dL 70-110 Complete blood count (CBC) with automate d white blood cell (WBC) differential - 06/26/17 05:34 Blood leukocytes automated count (number/volume) 12.8 10*3/uL 4.3-11.0 Blood erythrocytes automated count (number/volume) 4.87 10*6/uL 4.35-5.85 Venous blood hemoglobin measurement (mass/volume) 13.5 g/dL 11.5-16.0 Blood hematocrit (volume fraction) 43 % 35-52 Automated erythrocyte mean corpuscular volume 88 [ foz_us] 80-99 Automated erythrocyte mean corpuscular h emoglobin (mass per erythrocyte) 28 pg 25-34 Automated erythrocyte mean corpuscular h emoglobin concentration measurement (mass/volume) 31 g/dL 32-36 Automated erythrocyte distribution width ratio 14. 7 % 10.0- 14.5 Automated blood platelet count (count/volume) 230 10*3/uL [...] 10*3 1.0-4.0 Blood monocytes automated count (number/volume) 0. 9 10*3 0.0-1.0 Automated eosinophil count 0.3 10*3/uL 0 .0-0.3 Automated blood basophil count (count/volume) 0.1 10*3/uL 0.0-0.1 Comprehensive metabolic panel - 06/26/17 05:34 Serum or plasma sodium measurement (moles/volume) 138 mmol/L 135-145 Serum or plasma potassium measurement (moles/volume) 3.6 mmol/L 3.6-5.0 Serum or plasma chloride measurement (moles/volume) 99 mmol/L 98-107 Carbon dioxide 27 mmol/L 21-32 Serum or plasma anion gap determination (moles/volume) 12 mmol/L 5-14 Serum or plasma urea nitrogen measurement (mass/volume ) 16 mg/dL 7-18 Serum or plasma creatinine measurement (mass/volume) 0.77 mg/dL 0.60-1.30 Serum or plasma urea nitrogen/creatinine mass ratio 21 NRG Serum or plasma creatinine measurement w ith calculation of estimated glomerular filtration rate > NRG Serum or plasma glucose measurement (mass/volume) 327 mg/dL 70-105 Serum or plasma calcium measurement (mass/volume) 9.0 mg/dL 8.5-10.1 Serum or plasma total bilirubin measurement (mass/volu me) 0.4 mg/dL 0.1-1.0 Serum or plasma alkaline phosphatase deanna surement (enzymatic activity/volume) 76 U/L 40-136 Serum or plasma aspartate aminotransfera se measurement (enzymatic activity/volume) 20 U/L 5-34 Serum or plasma alanine aminotransferase measurement (enzymatic activity/volume) 23 U/L 0-55 Serum or plasma protein measurement (mass/volume) 6.6 g/dL 6.4-8.2 Serum or plasma albumin measurement (mass/volume) 3.2 g/dL 3.2-4.5 Serum or plasma troponin i.cardiac measu rement (mass/volume) - 06/26/17 05:34 Serum or plasma troponin i.cardiac measurement (mass/v olume) < ng/mL <0.30 Hemoglobin A1c - 06/26/17 05:34 Hemoglobin A1c 11.0 % 4.5-6.2 Capillary blood glucose measurement by g lucometer (mass/volume) - 06/26/17 10:22 Capillary blood glucose measurement by glucometer (mas s/volume) 366 mg/dL 70-110 Serum or plasma troponin i.cardiac measu rement (mass/volume) - 06/26/17 14:57 Serum or plasma troponin i.cardiac measurement (mass/v olume) < ng/mL <0.30 Capillary blood glucose measurement by g lucometer (mass/volume) - 06/26/17 15:59 Capillary blood glucose measurement by glucometer (mas s/volume) 352 mg/dL 70-110 Capillary blood glucose measurement by g lucometer (mass/volume) - 06/26/17 20:49 Capillary blood glucose measurement by glucometer (mas s/volume) 287 mg/dL 70-110 Capillary blood glucose measurement by g lucometer (mass/volume) - 06/27/17 05:12 Capillary blood glucose measurement by glucometer (mas s/volume) 228 mg/dL 70-110 Complete blood count (CBC) with automate d white blood cell (WBC) differential - 06/27/17 06:27 Blood leukocytes automated count (number/volume) 12.2 10*3/uL 4.3-11.0 Blood erythrocytes automated count (number/volume) 4.59 10*6/uL 4.35-5.85 Venous blood hemoglobin measurement (mass/volume) 12.9 g/dL 11.5-16.0 Blood hematocrit (volume fraction) 41 % 35-52 Automated erythrocyte mean corpuscular volume 89 [ foz_us] 80-99 Automated erythrocyte mean corpuscular h emoglobin (mass per erythrocyte) 28 pg 25-34 Automated erythrocyte mean corpuscular h emoglobin concentration measurement (mass/volume) 32 g/dL 32-36 Automated erythrocyte distribution width ratio 14. 6 % 10.0- 14.5 Automated blood platelet count (count/volume) 219 10*3/uL [...] 10*3 1.0-4.0 Blood monocytes automated count (number/volume) 0. 9 10*3 0.0-1.0 Automated eosinophil count 0.4 10*3/uL 0 .0-0.3 Automated blood basophil count (count/volume) 0.1 10*3/uL 0.0-0.1 Comprehensive metabolic panel - 06/27/17 06:27 Serum or plasma sodium measurement (moles/volume) 140 mmol/L 135-145 Serum or plasma potassium measurement (moles/volume) 3.7 mmol/L 3.6-5.0 Serum or plasma chloride measurement (moles/volume) 102 mmol/L 98-107 Carbon dioxide 28 mmol/L 21-32 Serum or plasma anion gap determination (moles/volume) 10 mmol/L 5-14 Serum or plasma urea nitrogen measurement (mass/volume ) 15 mg/dL 7-18 Serum or plasma creatinine measurement (mass/volume) 0.68 mg/dL 0.60-1.30 Serum or plasma urea nitrogen/creatinine mass ratio 22 NRG Serum or plasma creatinine measurement w ith calculation of estimated glomerular filtration rate > NRG Serum or plasma glucose measurement (mass/volume) 285 mg/dL 70-105 Serum or plasma calcium measurement (mass/volume) 9.1 mg/dL 8.5-10.1 Serum or plasma total bilirubin measurement (mass/volu me) 0.4 mg/dL 0.1-1.0 Serum or plasma alkaline phosphatase deanna surement (enzymatic activity/volume) 71 U/L 40-136 Serum or plasma aspartate aminotransfera se measurement (enzymatic activity/volume) 18 U/L 5-34 Serum or plasma alanine aminotransferase measurement (enzymatic activity/volume) 22 U/L 0-55 Serum or plasma protein measurement (mass/volume) 6.8 g/dL 6.4-8.2 Serum or plasma albumin measurement (mass/volume) 3.1 g/dL 3.2-4.5 Bacterial blood culture - 06/27/17 09:[address] [facility] Bacterial blood culture - 06/27/17 09:[address] [facility] Automated blood complete blood count (he mogram) panel - 11/07/17 08:52 Blood leukocytes automated count (number/volume) 13.7 10*3/uL 4.3-11.0 Blood erythrocytes automated count (number/volume) 4.98 10*6/uL 4.35-5.85 Venous blood hemoglobin measurement (mass/volume) 14.6 g/dL 11.5-16.0 Blood hematocrit (volume fraction) 44 % 35-52 Automated erythrocyte mean corpuscular volume 88 [ foz_us] 80-99 Automated erythrocyte mean corpuscular h emoglobin (mass per erythrocyte) 29 pg 25-34 Automated erythrocyte mean corpuscular h emoglobin concentration measurement (mass/volume) 33 g/dL 32-36 Automated erythrocyte distribution width ratio 15. 1 % 10.0- 14.5 Automated blood platelet count (count/volume) 244 10*3/uL [...] 5-14 Serum or plasma urea nitrogen measurement (mass/volume ) 21 mg/dL 7-18 Serum or plasma creatinine measurement (mass/volume) 0.98 mg/dL 0.60-1.30 Serum or plasma urea nitrogen/creatinine mass ratio 21 NRG Serum or plasma creatinine measurement w ith calculation of estimated glomerular filtration rate 59 NRG Serum or plasma glucose measurement (mass/volume) 396 mg/dL 70-105 Serum or plasma calcium measurement (mass/volume) 9.5 mg/dL 8.5-10.1 Serum or plasma total bilirubin measurement (mass/volu me) 0.5 mg/dL 0.1-1.0 Serum or plasma alkaline phosphatase deanna surement (enzymatic activity/volume) 90 U/L 40-136 Serum or plasma aspartate aminotransfera se measurement (enzymatic activity/volume) 21 U/L 5-34 Serum or plasma alanine aminotransferase measurement (enzymatic activity/volume) 27 U/L 0-55 Serum or plasma protein measurement (mass/volume) 7.4 g/dL 6.4-8.2 Serum or plasma albumin measurement (mass/volume) 3.6 g/dL 3.2-4.5 PT panel in platelet poor plasma by coag ulation assay - 11/07/17 08:52 Prothrombin time (PT) in platelet poor plasma by coagu lation assay 13.5 s 12.2-14.7 INR in platelet poor plasma or blood by coagulation as say 1.0 0.8-1.4 Activated partial thromboplastin time (a PTT) in platelet poor plasma bycoagulation assay - 11/07/17 08:52 Activated partial thromboplastin time (a PTT) in platelet poor plasma bycoagulation assay 27 s 24-35 Methicillin resistant Staphylococcus aur eus (MRSA) screening culture - 11/07/17 08:52 MRSA SCREEN RESULT MRSA ISOLATED NRG Capillary blood glucose measurement by g lucometer (mass/volume) - 11/07/17 12:07 Capillary blood glucose measurement by glucometer (mas s/volume) 330 mg/dL 70-110 Complete blood count (CBC) with automate d white blood cell (WBC) differential - 09/22/18 15:10 Blood leukocytes automated count (number/volume) 13.6 10*3/uL 4.3-11.0 Blood erythrocytes automated count (number/volume) 4.95 10*6/uL 4.35-5.85 Venous blood hemoglobin measurement (mass/volume) 14.7 g/dL 11.5-16.0 Blood hematocrit (volume fraction) 42 % 35-52 Automated erythrocyte mean corpuscular volume 86 [ foz_us] 80-99 Automated erythrocyte mean corpuscular h emoglobin (mass per erythrocyte) 30 pg 25-34 Automated erythrocyte mean corpuscular h emoglobin concentration measurement (mass/volume) 35 g/dL 32-36 Automated erythrocyte distribution width ratio 14. 6 % 10.0- 14.5 Automated blood platelet count (count/volume) 331 10*3/uL [...] 10*3 1.0-4.0 Blood monocytes automated count (number/volume) 1. 3 10*3 0.0-1.0 Automated eosinophil count 0.2 10*3/uL 0 .0-0.3 Automated blood basophil count (count/volume) 0.1 10*3/uL 0.0-0.1 Blood lactic acid measurement (moles/vol ume) - 09/22/18 15:10 Blood lactic acid measurement [...] 5-14 Serum or plasma urea nitrogen measurement (mass/volume ) 17 mg/dL 7-18 Serum or plasma creatinine measurement (mass/volume) 1.04 mg/dL 0.60-1.30 Serum or plasma urea nitrogen/creatinine mass ratio 16 NRG Serum or plasma creatinine measurement w ith calculation of estimated glomerular filtration rate 55 NRG Serum or plasma glucose measurement (mass/volume) 263 mg/dL 70-105 Serum or plasma calcium measurement (mass/volume) 10.1 mg/dL 8.5-10.1 Serum or plasma total bilirubin measurement (mass/volu me) 0.2 mg/dL 0.1-1.0 Serum or plasma alkaline phosphatase deanna surement (enzymatic activity/volume) 82 U/L 40-136 Serum or plasma aspartate aminotransfera se measurement (enzymatic activity/volume) 25 U/L 5-34 Serum or plasma alanine aminotransferase measurement (enzymatic activity/volume) 18 U/L 0-55 Serum or plasma protein measurement (mass/volume) 7.7 g/dL 6.4-8.2 Serum or plasma albumin measurement (mass/volume) 3.4 g/dL 3.2-4.5 CALCIUM CORRECTED 10.6 mg/dL 8.5-10.1 Lipase - 09/22/18 15:10 Lipase 30 U/L 8-78 Bacterial blood culture - 09/22/18 15:10 Bacterial blood culture NG NRG Capillary blood glucose measurement by g lucometer (mass/volume) - 09/22/18 15:26 Capillary blood glucose measurement by glucometer (mas s/volume) 283 mg/dL 70-110 Influenza virus A and B antigen detectio n - 09/22/18 15:44 FLU RESULT NEGATIVE FOR INFLUENZA A AND B ANTIGENS BY IA NRG Bacterial blood culture - 09/22/18 15:55 Bacterial blood culture NG NRG Complete urinalysis with reflex to cultu re - 09/22/18 17:02 Urine color determination YELLOW NRG Urine clarity determination SLIGHTLY CLOUDY NRG Urine pH measurement by test strip 5 5-9 Specific gravity of urine by test strip 1.015 1.016-1.022 Urine protein assay by test strip, semi-quantitative 2+ NEGATIVE Urine glucose detection by automated test strip 4+ NEGATIVE Erythrocytes detection in urine sediment by light micr oscopy 3+ NEGATIVE Urine ketones detection by automated test strip 2+ NEGATIVE Urine nitrite detection by test strip NEGATIVE NEGATIVE Urine total bilirubin detection by test strip NEGA TIVE NEGATIVE Urine urobilinogen measurement by automated test strip (mass/volume) NORMAL NORMAL Urine leukocyte esterase detection by dipstick 3+ NEGATIVE Automated urine sediment erythrocyte cou nt by microscopy (number/high power field) [HPF] NRG Automated urine sediment leukocyte count by microscopy (number/high power field) TNTC NRG Bacteria detection in urine sediment by light microsco py LARGE NRG Squamous epithelial cells detection in u rine sediment by light microscopy 2-5 NRG Crystals detection in urine sediment by light microsco py NONE NRG Casts detection in urine sediment by light microscopy NONE NRG Mucus detection in urine sediment by light microscopy NEGATIVE NRG Complete urinalysis with reflex to culture YES NRG Yeast detection in urine sediment by light microscopy MODERATE NRG Bacterial urine culture - 09/22/18 17:02 Bacterial urine culture [id number] NRG COLONY COUNT >100,000/ML NRG FTX;REPORTABLE SUSCEPTIBILITY REPORTED 09-25-17 05 NRG FREE TEXT ENTRY 2 RESISTANT ORGANISM/CONTACT PRECA UTIONS NRG FREE TEXT ENTRY 3 ESBL/MDRO ORGANISM NR G RML Sensitivity Panel - 09/22/18 17:02 Gentamicin susceptibility test by minimum inhibitory c oncentration <= NRG Trimethoprim/sulfamethoxazole susceptibi lity test by minimum inhibitoryconcentration > NRG Levofloxacin susceptibility test by minimum inhibitory concentration > NRG Tetracycline susceptibility test by minimum inhibitory concentration <= NRG Ampicillin susceptibility test by minimum inhibitory c oncentration > NRG Cefazolin susceptibility test by minimum inhibitory co ncentration > NRG Ceftriaxone susceptibility test by minimum inhibitory concentration > NRG Piperacillin/tazobactam susceptibility t est by minimum inhibitory concentration = NRG Ciprofloxacin susceptibility test by minimum inhibitor y concentration > NRG Meropenem susceptibility test by minimum inhibitory co ncentration <= NRG Nitrofurantoin susceptibility test by mi nimum inhibitory concentration 32 NRG Amikacin susceptibility test by minimum inhibitory con centration <= NRG Ertapenem susceptibility test by minimum inhibitory co ncentration S NRG Amoxicillin and clavulanate potassium susc RENO R NRG Imipenem susceptibility test by minimum inhibitory con centration <= NRG Capillary blood glucose measurement by g lucometer (mass/volume) - 09/22/18 21:09 Capillary blood glucose measurement by glucometer (mas s/volume) 305 mg/dL 70-110 Complete blood count (CBC) with automate d white blood cell (WBC) differential - 09/23/18 05:05 Blood leukocytes automated count (number/volume) 12.0 10*3/uL 4.3-11.0 Blood erythrocytes automated count (number/volume) 4.21 10*6/uL 4.35-5.85 Venous blood hemoglobin measurement (mass/volume) 12.2 g/dL 11.5-16.0 Blood hematocrit (volume fraction) 37 % 35-52 Automated erythrocyte mean corpuscular volume 88 [ foz_us] 80-99 Automated erythrocyte mean corpuscular h emoglobin (mass per erythrocyte) 29 pg 25-34 Automated erythrocyte mean corpuscular h emoglobin concentration measurement (mass/volume) 33 g/dL 32-36 Automated erythrocyte distribution width ratio 14. 1 % 10.0- 14.5 Automated blood platelet count (count/volume) 259 10*3/uL [...] 10*3 1.0-4.0 Blood monocytes automated count (number/volume) 1. 1 10*3 0.0-1.0 Automated eosinophil count 0.3 10*3/uL 0 .0-0.3 Automated blood basophil count (count/volume) 0.1 10*3/uL 0.0-0.1 Whole blood basic metabolic panel - 09/12 09/30 05:05 Serum or plasma sodium measurement (moles/volume) 135 mmol/L 135-145 Serum or plasma potassium measurement (moles/volume) 3.5 mmol/L 3.6-5.0 Serum or plasma chloride measurement (moles/volume) 103 mmol/L 98-107 Carbon dioxide 19 mmol/L 21-32 Serum or plasma anion gap determination (moles/volume) 13 mmol/L 5-14 Serum or plasma urea nitrogen measurement (mass/volume ) 23 mg/dL 7-18 Serum or plasma creatinine measurement (mass/volume) 0.98 mg/dL 0.60-1.30 Serum or plasma urea nitrogen/creatinine mass ratio 23 NRG Serum or plasma creatinine measurement w ith calculation of estimated glomerular filtration rate 59 NRG Serum or plasma glucose measurement (mass/volume) 264 mg/dL 70-105 Serum or plasma calcium measurement (mass/volume) 9.1 mg/dL 8.5-10.1 Capillary blood glucose measurement by g lucometer (mass/volume) - 09/23/18 05:13 Capillary blood glucose measurement by glucometer (mas s/volume) 244 mg/dL 70-110 Capillary blood glucose measurement by g lucometer (mass/volume) - 09/23/18 11:02 Capillary blood glucose measurement by glucometer (mas s/volume) 90 mg/dL 70-110 Capillary blood glucose measurement by g lucometer (mass/volume) - 09/23/18 15:56 Capillary blood glucose measurement by glucometer (mas s/volume) 180 mg/dL 70-110 Capillary blood glucose measurement by g lucometer (mass/volume) - 09/23/18 20:25 Capillary blood glucose measurement by glucometer (mas s/volume) 174 mg/dL 70-110 Capillary blood glucose measurement by g lucometer (mass/volume) - 09/24/18 04:44 Capillary blood glucose measurement by glucometer (mas s/volume) 252 mg/dL 70-110 Capillary blood glucose measurement by g lucometer (mass/volume) - 09/24/18 11:38 Capillary blood glucose measurement by glucometer (mas s/volume) 248 mg/dL 70-110 Capillary blood glucose measurement by g lucometer (mass/volume) - 09/24/18 15:10 Capillary blood glucose measurement by glucometer (mas s/volume) 212 mg/dL 70-110 Capillary blood glucose measurement by g lucometer (mass/volume) - 09/24/18 20:38 Capillary blood glucose measurement by glucometer (mas s/volume) 257 mg/dL 70-110 Capillary blood glucose measurement by g lucometer (mass/volume) - 09/25/18 06:12 Capillary blood glucose measurement by glucometer (mas s/volume) 311 mg/dL 70-110 Capillary blood glucose measurement by g lucometer (mass/volume) - 09/25/18 11:12 Capillary blood glucose measurement by glucometer (mas s/volume) 269 mg/dL 70-110 Complete blood count (CBC) with automate d white blood cell (WBC) differential - 10/26/18 23:27 Blood leukocytes automated count (number/volume) 13.8 10*3/uL 4.3-11.0 Blood erythrocytes automated count (number/volume) 4.33 10*6/uL 4.35-5.85 Venous blood hemoglobin measurement (mass/volume) 12.4 g/dL 11.5-16.0 Blood hematocrit (volume fraction) 38 % 35-52 Automated erythrocyte mean corpuscular volume 88 [ foz_us] 80-99 Automated erythrocyte mean corpuscular h emoglobin (mass per erythrocyte) 29 pg 25-34 Automated erythrocyte mean corpuscular h emoglobin concentration measurement (mass/volume) 33 g/dL 32-36 Automated erythrocyte distribution width ratio 13. 7 % 10.0- 14.5 Automated blood platelet count (count/volume) 340 10*3/uL 130-400 Automated blood platelet mean volume measurement 11.5 [foz_us] 7.4-10.4 Automated blood neutrophils/100 leukocytes 64 % 42-75 Automated blood lymphocytes/100 leukocytes 26 % 12-44 Blood monocytes/100 leukocytes 8 % 0-12 Automated blood eosinophils/100 leukocytes 1 % 0-10 Automated blood basophils/100 leukocytes 1 % 0-10 Blood neutrophils automated count (number/volume) 8.9 10*3 1.8-7.8 Blood lymphocytes automated count (number/volume) 3.5 10*3 1.0-4.0 Blood monocytes automated count (number/volume) 1. 1 10*3 0.0-1.0 Automated eosinophil count 0.2 10*3/uL 0 .0-0.3 Automated blood basophil count (count/volume) 0.1 10*3/uL 0.0-0.1 Blood lactic acid measurement (moles/vol ume) - 10/26/18 23:27 Blood lactic acid measurement (moles/volume) 1.66 mmol/L 0.50-2.00 Comprehensive metabolic panel - 10/26/18 23:27 Serum or plasma sodium measurement (moles/volume) 131 mmol/L 135-145 Serum or plasma potassium measurement (moles/volume) 3.9 mmol/L 3.6-5.0 Serum or plasma chloride measurement (moles/volume) 90 mmol/L 98-107 Carbon dioxide 25 mmol/L 21-32 Serum or plasma anion gap determination (moles/volume) 16 mmol/L 5-14 Serum or plasma urea nitrogen measurement (mass/volume ) 41 mg/dL 7-18 Serum or plasma creatinine measurement (mass/volume) 0.99 mg/dL 0.60-1.30 Serum or plasma urea nitrogen/creatinine mass ratio 41 NRG Serum or plasma creatinine measurement w ith calculation of estimated glomerular filtration rate 58 NRG Serum or plasma glucose measurement (mass/volume) 174 mg/dL 70-105 Serum or plasma calcium measurement (mass/volume) 9.8 mg/dL 8.5-10.1 Serum or plasma total bilirubin measurement (mass/volu me) 0.2 mg/dL 0.1-1.0 Serum or plasma alkaline phosphatase deanna surement (enzymatic activity/volume) 91 U/L 40-136 Serum or plasma aspartate aminotransfera se measurement (enzymatic activity/volume) 13 U/L 5-34 Serum or plasma alanine aminotransferase measurement (enzymatic activity/volume) 14 U/L 0-55 Serum or plasma protein measurement (mass/volume) 7.3 g/dL 6.4-8.2 Serum or plasma albumin measurement (mass/volume) 3.1 g/dL 3.2-4.5 CALCIUM CORRECTED 10.5 mg/dL 8.5-10.1 Magnesium - 10/26/18 23:27 Magnesium 2.4 mg/dL 1.8-2.4 TROPONIN T - 10/26/18 23:27 TROPONIN T 8 % <=10 Lipase - 10/26/18 23:27 Lipase 46 U/L 8-78 Capillary blood glucose measurement by g lucometer (mass/volume) - 10/27/18 06:53 Capillary blood glucose measurement by glucometer (mas s/volume) 256 mg/dL 70-110 Capillary blood glucose measurement by g lucometer (mass/volume) - 10/27/18 11:22 Capillary blood glucose measurement by glucometer (mas s/volume) 404 mg/dL 70-110 Capillary blood glucose measurement by g lucometer (mass/volume) - 10/27/18 16:17 Capillary blood glucose measurement by glucometer (mas s/volume) 366 mg/dL 70-110 Capillary blood glucose measurement by g lucometer (mass/volume) - 10/27/18 20:25 Capillary blood glucose measurement by glucometer (mas s/volume) 445 mg/dL 70-110 Capillary blood glucose measurement by g lucometer (mass/volume) - 10/27/18 22:01 Capillary blood glucose measurement by glucometer (mas s/volume) 372 mg/dL 70-110 Capillary blood glucose measurement by g lucometer (mass/volume) - 10/28/18 05:12 Capillary blood glucose measurement by glucometer (mas s/volume) 268 mg/dL 70-110 CULTURE, URINE - 11/13/18 12:03 CULTURE, URINE, ROUTINE SEE NOTE NRG A1C - 11/17/18 09:00 HEMOGLOBIN A1c 12.8 % of total Hgb <5.7 CULTURE, URINE - 12/11/18 16:22 CULTURE, URINE, ROUTINE SEE NOTE NRG Capillary blood glucose measurement by g lucometer (mass/volume) - 12/18/18 13:01 Capillary blood glucose measurement by glucometer (mas s/volume) 349 mg/dL 70-110 Complete blood count (CBC) with automate d white blood cell (WBC) differential - 12/21/18 18:30 Blood leukocytes automated count (number/volume) 12.1 10*3/uL 4.3-11.0 Blood erythrocytes automated count (number/volume) 4.30 10*6/uL 4.35-5.85 Venous blood hemoglobin measurement (mass/volume) 12.4 g/dL 11.5-16.0 Blood hematocrit (volume fraction) 37 % 35-52 Automated erythrocyte mean corpuscular volume 87 [ foz_us] 80-99 Automated erythrocyte mean corpuscular h emoglobin (mass per erythrocyte) 29 pg 25-34 Automated erythrocyte mean corpuscular h emoglobin concentration measurement (mass/volume) 33 g/dL 32-36 Automated erythrocyte distribution width ratio 14. 7 % 10.0- 14.5 Automated blood platelet count (count/volume) 258 10*3/uL 130-400 Automated blood platelet mean volume measurement 12.4 [foz_us] 7.4-10.4 Automated blood neutrophils/100 leukocytes 67 % 42-75 Automated blood lymphocytes/100 leukocytes 23 % 12-44 Blood monocytes/100 leukocytes 8 % 0-12 Automated blood eosinophils/100 leukocytes 2 % 0-10 Automated blood basophils/100 leukocytes 0 % 0-10 Blood neutrophils automated count (number/volume) 8.1 10*3 1.8-7.8 Blood lymphocytes automated count (number/volume) 2.7 10*3 1.0-4.0 Blood monocytes automated count (number/volume) 1. 0 10*3 0.0-1.0 Automated eosinophil count 0.2 10*3/uL 0 .0-0.3 Automated blood basophil count (count/volume) 0.1 10*3/uL 0.0-0.1 PT panel in platelet poor plasma by coag ulation assay - 12/21/18 18:30 Prothrombin time (PT) in platelet poor plasma by coagu lation assay 15.1 s 12.2-14.7 INR in platelet poor plasma or blood by coagulation as say 1.1 0.8-1.4 Activated partial thromboplastin time (a PTT) in platelet poor plasma bycoagulation assay - 12/21/18 18:30 Activated partial thromboplastin time (a PTT) in platelet poor plasma bycoagulation assay 40 s 24-35 Blood lactic acid measurement (moles/vol ume) - 12/21/18 18:30 Blood lactic acid measurement (moles/volume) 1.49 mmol/L 0.50-2.00 Comprehensive metabolic panel - 12/21/18 18:30 Serum or plasma sodium measurement (moles/volume) 133 mmol/L 135-145 Serum or plasma potassium measurement (moles/volume) 4.5 mmol/L 3.6-5.0 Serum or plasma chloride measurement (moles/volume) 93 mmol/L 98-107 Carbon dioxide 23 mmol/L 21-32 Serum or plasma anion gap determination (moles/volume) 17 mmol/L 5-14 Serum or plasma urea nitrogen measurement (mass/volume ) 38 mg/dL 7-18 Serum or plasma creatinine measurement (mass/volume) 1.25 mg/dL 0.60-1.30 Serum or plasma urea nitrogen/creatinine mass ratio 30 NRG Serum or plasma creatinine measurement w ith calculation of estimated glomerular filtration rate 44 NRG Serum or plasma glucose measurement (mass/volume) 592 mg/dL 70-105 Serum or plasma calcium measurement (mass/volume) 10.4 mg/dL 8.5-10.1 Serum or plasma total bilirubin measurement (mass/volu me) 0.3 mg/dL 0.1-1.0 Serum or plasma alkaline phosphatase deanna surement (enzymatic activity/volume) 100 U/L 40-136 Serum or plasma aspartate aminotransfera se measurement (enzymatic activity/volume) 11 U/L 5-34 Serum or plasma alanine aminotransferase measurement (enzymatic activity/volume) 20 U/L 0-55 Serum or plasma protein measurement (mass/volume) 7.5 g/dL 6.4-8.2 Serum or plasma albumin measurement (mass/volume) 3.4 g/dL 3.2-4.5 CALCIUM CORRECTED 10.9 mg/dL 8.5-10.1 Serum or plasma C reactive protein measu rement (mass/volume) - 12/21/18 18:30 Serum or plasma C reactive protein measurement (mass/v olume) 8.20 mg/dL 0.00-0.50 Serum or plasma troponin i.cardiac measu rement (mass/volume) - 12/21/18 18:30 Serum or plasma troponin i.cardiac measurement (mass/v olume) < ng/mL <0.028 Bacterial blood culture - 12/21/18 18:30 FREE TEXT EXTERNAL RML SENT ISOLATE TO [facility] [place] QUANTITY OF GROWTH . [facility] [place] Bacterial blood culture SEE COMMEN NR FREE TEXT ENTRY 2 LABORATORY FOR FUTHER TESTING NR Bacterial blood culture - 12/21/18 19:02 Bacterial blood culture NG [facility] [place] Capillary blood glucose measurement by g lucometer (mass/volume) - 12/21/18 20:18 Capillary blood glucose measurement by glucometer (mas s/volume) 386 mg/dL 70-110 Capillary blood glucose measurement by g lucometer (mass/volume) - 12/21/18 21:15 Capillary blood glucose measurement by glucometer (mas s/volume) 348 mg/dL 70-110 Gram stain microscopy - 12/21/18 21:18 Gram stain microscopy No bacteria NRG Bacteria identification in wound by cult ure - 12/21/18 21:18 Bacteria identification in wound by culture MBF NRG FREE TEXT EXTERNAL NO BETA STREP, STAPH AUREUS, OR NRG QUANTITY OF GROWTH SMALL AMOUNT NRG FREE TEXT ENTRY 2 PSEUDOMONAS ISOLATED NRG Complete urinalysis with reflex to cultu re - 12/21/18 22:00 Urine color determination YELLOW NRG Urine clarity determination SLIGHTLY CLOUDY NRG Urine pH measurement by test strip 5 5-9 Specific gravity of urine by test strip 1.010 1.016-1.022 Urine protein assay by test strip, semi-quantitative 1+ NEGATIVE Urine glucose detection by automated test strip 4+ NEGATIVE Erythrocytes detection in urine sediment by light micr oscopy 2+ NEGATIVE Urine ketones detection by automated test strip NE GATIVE NEGATIVE Urine nitrite detection by test strip NEGATIVE NEGATIVE Urine total bilirubin detection by test strip NEGA TIVE NEGATIVE Urine urobilinogen measurement by automated test strip (mass/volume) NORMAL NORMAL Urine leukocyte esterase detection by dipstick 3+ NEGATIVE Automated urine sediment erythrocyte cou nt by microscopy (number/high power field) RARE NRG Automated urine sediment leukocyte count by microscopy (number/high power field) TNTC NRG Bacteria detection in urine sediment by light microsco py FEW NRG Squamous epithelial cells detection in u rine sediment by light microscopy 2-5 NRG Crystals detection in urine sediment by light microsco py NONE NRG Casts detection in urine sediment by light microscopy NONE NRG Mucus detection in urine sediment by light microscopy NEGATIVE NRG Complete urinalysis with reflex to culture CULTURE PENDING NRG Bacterial urine culture - 12/21/18 22:00 Bacterial urine culture SEE COMMEN NRG COLONY COUNT . NRG FTX;REPORTABLE ID/SUSCEPTIBILTY REPORTED 12/23/18 1 3:05 NRG RML Sensitivity Panel - 12/21/18 22:00 Gentamicin susceptibility test by minimum inhibitory c oncentration > NRG Trimethoprim/sulfamethoxazole susceptibi lity test by minimum inhibitoryconcentration > NRG Levofloxacin susceptibility test by minimum inhibitory concentration > NRG Ampicillin susceptibility test by minimum inhibitory c oncentration > NRG Cefazolin susceptibility test by minimum inhibitory co ncentration > NRG Ceftriaxone susceptibility test by minimum inhibitory concentration > NRG Ciprofloxacin susceptibility test by minimum inhibitor y concentration > NRG Meropenem susceptibility test by minimum inhibitory co ncentration <= NRG Nitrofurantoin susceptibility test by mi nimum inhibitory concentration 64 NRG Amoxicillin and clavulanate potassium susc RENO R NRG Complete blood count (CBC) with automate d white blood cell (WBC) differential - 12/22/18 02:00 Blood leukocytes automated count (number/volume) 10.5 10*3/uL 4.3-11.0 Blood erythrocytes automated count (number/volume) 4.03 10*6/uL 4.35-5.85 Venous blood hemoglobin measurement (mass/volume) 11.5 g/dL 11.5-16.0 Blood hematocrit (volume fraction) 35 % 35-52 Automated erythrocyte mean corpuscular volume 87 [ foz_us] 80-99 Automated erythrocyte mean corpuscular h emoglobin (mass per erythrocyte) 29 pg 25-34 Automated erythrocyte mean corpuscular h emoglobin concentration measurement (mass/volume) 33 g/dL 32-36 Automated erythrocyte distribution width ratio 14. 4 % 10.0- 14.5 Automated blood platelet count (count/volume) 238 10*3/uL 130-400 Automated blood platelet mean volume measurement 11.9 [foz_us] 7.4-10.4 Automated blood neutrophils/100 leukocytes 59 % 42-75 Automated blood lymphocytes/100 leukocytes 29 % 12-44 Blood monocytes/100 leukocytes 9 % 0-12 Automated blood eosinophils/100 leukocytes 2 % 0-10 Automated blood basophils/100 leukocytes 1 % 0-10 Blood neutrophils automated count (number/volume) 6.3 10*3 1.8-7.8 Blood lymphocytes automated count (number/volume) 3.0 10*3 1.0-4.0 Blood monocytes automated count (number/volume) 1. 0 10*3 0.0-1.0 Automated eosinophil count 0.2 10*3/uL 0 .0-0.3 Automated blood basophil count (count/volume) 0.1 10*3/uL 0.0-0.1 Comprehensive metabolic panel - 12/22/18 02:00 Serum or plasma sodium measurement (moles/volume) 138 mmol/L 135-145 Serum or plasma potassium measurement (moles/volume) 4.0 mmol/L 3.6-5.0 Serum or plasma chloride measurement (moles/volume) 101 mmol/L 98-107 Carbon dioxide 23 mmol/L 21-32 Serum or plasma anion gap determination (moles/volume) 14 mmol/L 5-14 Serum or plasma urea nitrogen measurement (mass/volume ) 36 mg/dL 7-18 Serum or plasma creatinine measurement (mass/volume) 1.15 mg/dL 0.60-1.30 Serum or plasma urea nitrogen/creatinine mass ratio 31 NRG Serum or plasma creatinine measurement w ith calculation of estimated glomerular filtration rate 49 NRG Serum or plasma glucose measurement (mass/volume) 408 mg/dL 70-105 Serum or plasma calcium measurement (mass/volume) 9.4 mg/dL 8.5-10.1 Serum or plasma total bilirubin measurement (mass/volu me) 0.2 mg/dL 0.1-1.0 Serum or plasma alkaline phosphatase deanna surement (enzymatic activity/volume) 95 U/L 40-136 Serum or plasma aspartate aminotransfera se measurement (enzymatic activity/volume) 10 U/L 5-34 Serum or plasma alanine aminotransferase measurement (enzymatic activity/volume) 18 U/L 0-55 Serum or plasma protein measurement (mass/volume) 6.6 g/dL 6.4-8.2 Serum or plasma albumin measurement (mass/volume) 3.1 g/dL 3.2-4.5 CALCIUM CORRECTED 10.1 mg/dL 8.5-10.1 Serum or plasma troponin i.cardiac measu rement (mass/volume) - 12/22/18 02:00 Serum or plasma troponin i.cardiac measurement (mass/v olume) < ng/mL <0.028 Lipid 1996 panel - 12/22/18 02:00 Serum or plasma triglyceride measurement (mass/volume) 323 mg/dL <150 Serum or plasma cholesterol measurement (mass/volume) 104 mg/dL < 200 Serum or plasma cholesterol in HDL measurement (mass/v olume) 22 mg/dL 40-60 Cholesterol in LDL [mass/volume] in serum or plasma by direct assay 40 mg/dL 1-129 Serum or plasma cholesterol in VLDL measurement (mass/ volume) 65 mg/dL 5-40 Capillary blood glucose measurement by g lucometer (mass/volume) - 12/22/18 05:42 Capillary blood glucose measurement by glucometer (mas s/volume) 324 mg/dL 70-110 Capillary blood glucose measurement by g lucometer (mass/volume) - 12/22/18 10:52 Capillary blood glucose measurement by glucometer (mas s/volume) 302 mg/dL 70-110 Complete blood count (CBC) with automate d white blood cell (WBC) differential - 03/03/19 10:42 Blood leukocytes automated count (number/volume) 12.7 10*3/uL 4.3-11.0 Blood erythrocytes automated count (number/volume) 4.39 10*6/uL 4.35-5.85 Venous blood hemoglobin measurement (mass/volume) 12.6 g/dL 11.5-16.0 Blood hematocrit (volume fraction) 39 % 35-52 Automated erythrocyte mean corpuscular volume 90 [ foz_us] 80-99 Automated erythrocyte mean corpuscular h emoglobin (mass per erythrocyte) 29 pg 25-34 Automated erythrocyte mean corpuscular h emoglobin concentration measurement (mass/volume) 32 g/dL 32-36 Automated erythrocyte distribution width ratio 14. 9 % 10.0- 14.5 Automated blood platelet count (count/volume) 263 10*3/uL 130-400 Automated blood platelet mean volume measurement 12.5 [foz_us] 7.4-10.4 Automated blood neutrophils/100 leukocytes 66 % 42-75 Automated blood lymphocytes/100 leukocytes 23 % 12-44 Blood monocytes/100 leukocytes 8 % 0-12 Automated blood eosinophils/100 leukocytes 2 % 0-10 Automated blood basophils/100 leukocytes 1 % 0-10 Blood neutrophils automated count (number/volume) 8.4 10*3 1.8-7.8 Blood lymphocytes automated count (number/volume) 3.0 10*3 1.0-4.0 Blood monocytes automated count (number/volume) 1. 0 10*3 0.0-1.0 Automated eosinophil count 0.2 10*3/uL 0 .0-0.3 Automated blood basophil count (count/volume) 0.1 10*3/uL 0.0-0.1 PT panel in platelet poor plasma by coag ulation assay - 03/03/19 10:42 Prothrombin time (PT) in platelet poor plasma by coagu lation assay 14.9 s 12.2-14.7 INR in platelet poor plasma or blood by coagulation as say 1.1 0.8-1.4 Activated partial thromboplastin time (a PTT) in platelet poor plasma bycoagulation assay - 03/03/19 10:42 Activated partial thromboplastin time (a PTT) in platelet poor plasma bycoagulation assay 29 s 24-35 Comprehensive metabolic panel - 03/03/19 10:42 Serum or plasma sodium measurement (moles/volume) 138 mmol/L 135-145 Serum or plasma potassium measurement (moles/volume) 4.3 mmol/L 3.6-5.0 Serum or plasma chloride measurement (moles/volume) 96 mmol/L 98-107 Carbon dioxide 26 mmol/L 21-32 Serum or plasma anion gap determination (moles/volume) 16 mmol/L 5-14 Serum or plasma urea nitrogen measurement (mass/volume ) 19 mg/dL 7-18 Serum or plasma creatinine measurement (mass/volume) 0.69 mg/dL 0.60-1.30 Serum or plasma urea nitrogen/creatinine mass ratio 28 NRG Serum or plasma creatinine measurement w ith calculation of estimated glomerular filtration rate > NRG Serum or plasma glucose measurement (mass/volume) 354 mg/dL 70-105 Serum or plasma calcium measurement (mass/volume) 9.4 mg/dL 8.5-10.1 Serum or plasma total bilirubin measurement (mass/volu me) 0.2 mg/dL 0.1-1.0 Serum or plasma alkaline phosphatase deanna surement (enzymatic activity/volume) 65 U/L 40-136 Serum or plasma aspartate aminotransfera se measurement (enzymatic activity/volume) 20 U/L 5-34 Serum or plasma alanine aminotransferase measurement (enzymatic activity/volume) 24 U/L 0-55 Serum or plasma protein measurement (mass/volume) 6.9 g/dL 6.4-8.2 Serum or plasma albumin measurement (mass/volume) 3.3 g/dL 3.2-4.5 CALCIUM CORRECTED 10.0 mg/dL 8.5-10.1 Serum or plasma troponin i.cardiac measu rement (mass/volume) - 03/03/19 10:42 Serum or plasma troponin i.cardiac measurement (mass/v olume) < ng/mL <0.30 Magnesium - 03/03/19 10:42 Magnesium 1.8 mg/dL 1.8-2.4 Fibrin D-dimer FEU measurement in platel et poor plasma (mass/volume) - 03/03/19 10:42 Fibrin D-dimer FEU measurement in platelet poor plasma (mass/volume) 0.24 ug/mL 0.00-0.49 Capillary blood glucose measurement by g lucometer (mass/volume) - 03/03/19 11:27 Capillary blood glucose measurement by glucometer (mas s/volume) 324 mg/dL 70-110 Complete urinalysis with reflex to cultu re - 03/03/19 11:34 Urine color determination PALE YELLOW N RG Urine clarity determination CLOUDY NR G Urine pH measurement by test strip 5.5 5-9 Specific gravity of urine by test strip <= 1.016-1.022 Urine protein assay by test strip, semi-quantitative NEGATIVE NEGATIVE Urine glucose detection by automated test strip 3+ NEGATIVE Erythrocytes detection in urine sediment by light micr oscopy 1+ NEGATIVE Urine ketones detection by automated test strip NE GATIVE NEGATIVE Urine nitrite detection by test strip NEGATIVE NEGATIVE Urine total bilirubin detection by test strip NEGA TIVE NEGATIVE Urine urobilinogen measurement by automated test strip (mass/volume) 0.2 mg/dL NORMAL Urine leukocyte esterase detection by dipstick 2+ NEGATIVE Automated urine sediment erythrocyte cou nt by microscopy (number/high power field) RARE NRG Automated urine sediment leukocyte count by microscopy (number/high power field) TNTC NRG Bacteria detection in urine sediment by light microsco py TRACE NRG Squamous epithelial cells detection in u rine sediment by light microscopy 5-10 NRG Crystals detection in urine sediment by light microsco py NONE NRG Casts detection in urine sediment by light microscopy NONE NRG Mucus detection in urine sediment by light microscopy NONE NRG Complete urinalysis with reflex to culture YES NRG Bacterial urine culture - 03/03/19 11:34 Bacterial urine culture [id number] NRG COLONY COUNT >100,000/ML NRG FTX;REPORTABLE SUSCEPTIBILITIES REPORTED 03-06-195 NRG FREE TEXT ENTRY 2 RESISTANT ORGANISM/CONTACT PRECA UTIONS NRG FREE TEXT ENTRY 3 ESBL, MULTI-DRUG RESISTANT ORGAN ISM NRG Dirithromycin susceptibility test by dis k diffusion - 03/03/19 11:34 Gentamicin susceptibility test by minimum inhibitory c oncentration <= NRG Trimethoprim/sulfamethoxazole susceptibi lity test by minimum inhibitoryconcentration > NRG Levofloxacin susceptibility test by minimum inhibitory concentration > NRG Ampicillin susceptibility test by minimum inhibitory c oncentration > NRG Cefazolin susceptibility test by minimum inhibitory co ncentration 2 NRG Ceftriaxone susceptibility test by minimum inhibitory concentration <= NRG Ciprofloxacin susceptibility test by minimum inhibitor y concentration > NRG Meropenem susceptibility test by minimum inhibitory co ncentration <= NRG Nitrofurantoin susceptibility test by mi nimum inhibitory concentration <= NRG Amoxicillin and clavulanate potassium susc RENO <= NRG Dirithromycin susceptibility test by dis k diffusion - 03/03/19 11:34 Gentamicin susceptibility test by minimum inhibitory c oncentration > NRG Trimethoprim/sulfamethoxazole susceptibi lity test by minimum inhibitoryconcentration > NRG Levofloxacin susceptibility test by minimum inhibitory concentration 2 NRG Ampicillin susceptibility test by minimum inhibitory c oncentration > NRG Cefazolin susceptibility test by minimum inhibitory co ncentration > NRG Ceftriaxone susceptibility test by minimum inhibitory concentration > NRG Piperacillin/tazobactam susceptibility t est by minimum inhibitory concentration = NRG Ciprofloxacin susceptibility test by minimum inhibitor y concentration > NRG Meropenem susceptibility test by minimum inhibitory co ncentration <= NRG Nitrofurantoin susceptibility test by mi nimum inhibitory concentration <= NRG Amoxicillin and clavulanate potassium susc RENO = NRG CULTURE, URINE - 04/16/19 14:31 CULTURE, URINE, ROUTINE SEE NOTE NRG A1C - 04/22/19 08:47 HEMOGLOBIN A1c 12.5 % of total Hgb <5.7 Complete blood count (CBC) with automate d white blood cell (WBC) differential - 06/17/19 12:00 Blood leukocytes automated count (number/volume) 12.9 10*3/uL 4.3-11.0 Blood erythrocytes automated count (number/volume) 4.81 10*6/uL 4.35-5.85 Venous blood hemoglobin measurement (mass/volume) 13.8 g/dL 11.5-16.0 Blood hematocrit (volume fraction) 43 % 35-52 Automated erythrocyte mean corpuscular volume 89 [ foz_us] 80-99 Automated erythrocyte mean corpuscular h emoglobin (mass per erythrocyte) 29 pg 25-34 Automated erythrocyte mean corpuscular h emoglobin concentration measurement (mass/volume) 32 g/dL 32-36 Automated erythrocyte distribution width ratio 14. 3 % 10.0- 14.5 Automated blood platelet count (count/volume) 234 10*3/uL 130-400 Automated blood platelet mean volume measurement 12.4 [foz_us] 7.4-10.4 Automated blood neutrophils/100 leukocytes 66 % 42-75 Automated blood lymphocytes/100 leukocytes 25 % 12-44 Blood monocytes/100 leukocytes 6 % 0-12 Automated blood eosinophils/100 leukocytes 2 % 0-10 Automated blood basophils/100 leukocytes 1 % 0-10 Blood neutrophils automated count (number/volume) 8.6 10*3 1.8-7.8 Blood lymphocytes automated count (number/volume) 3.3 10*3 1.0-4.0 Blood monocytes automated count (number/volume) 0. 8 10*3 0.0-1.0 Automated eosinophil count 0.2 10*3/uL 0 .0-0.3 Automated blood basophil count (count/volume) 0.1 10*3/uL 0.0-0.1 Blood lactic acid measurement (moles/vol ume) - 06/17/19 12:00 Blood lactic acid measurement (moles/volume) 1.72 mmol/L 0.50-2.00 Comprehensive metabolic panel - 06/17/19 12:00 Serum or plasma sodium measurement (moles/volume) 132 mmol/L 135-145 Serum or plasma potassium measurement (moles/volume) 5.2 mmol/L 3.6-5.0 Serum or plasma chloride measurement (moles/volume) 91 mmol/L 98-107 Carbon dioxide 28 mmol/L 21-32 Serum or plasma anion gap determination (moles/volume) 13 mmol/L 5-14 Serum or plasma urea nitrogen measurement (mass/volume ) 44 mg/dL 7-18 Serum or plasma creatinine measurement (mass/volume) 1.01 mg/dL 0.60-1.30 Serum or plasma urea nitrogen/creatinine mass ratio 44 NRG Serum or plasma creatinine measurement w ith calculation of estimated glomerular filtration rate 57 NRG Serum or plasma glucose measurement (mass/volume) 328 mg/dL 70-105 Serum or plasma calcium measurement (mass/volume) 9.9 mg/dL 8.5-10.1 Serum or plasma total bilirubin measurement (mass/volu me) 0.2 mg/dL 0.1-1.0 Serum or plasma alkaline phosphatase deanna surement (enzymatic activity/volume) 94 U/L 40-136 Serum or plasma aspartate aminotransfera se measurement (enzymatic activity/volume) 16 U/L 5-34 Serum or plasma alanine aminotransferase measurement (enzymatic activity/volume) 24 U/L 0-55 Serum or plasma protein measurement (mass/volume) 7.5 g/dL 6.4-8.2 Serum or plasma albumin measurement (mass/volume) 3.6 g/dL 3.2-4.5 CALCIUM CORRECTED 10.2 mg/dL 8.5-10.1 Bacterial blood culture - 06/17/19 12:00 Bacterial blood culture NG NRG Bacterial blood culture - 06/17/19 12:50 Bacterial blood culture NG NRG Complete urinalysis with reflex to cultu re - 06/17/19 14:00 Urine color determination YELLOW NRG Urine clarity determination CLOUDY NR G Urine pH measurement by test strip 6.0 5-9 Specific gravity of urine by test strip < 1.016-1.022 Urine protein assay by test strip, semi-quantitative NEGATIVE NEGATIVE Urine glucose detection by automated test strip 3+ NEGATIVE Erythrocytes detection in urine sediment by light micr oscopy 1+ NEGATIVE Urine ketones detection by automated test strip NE GATIVE NEGATIVE Urine nitrite detection by test strip POSITIVE NEGATIVE Urine total bilirubin detection by test strip NEGA TIVE NEGATIVE Urine urobilinogen measurement by automated test strip (mass/volume) 0.2 mg/dL NORMAL Urine leukocyte esterase detection by dipstick 2+ NEGATIVE Automated urine sediment erythrocyte cou nt by microscopy (number/high power field) [HPF] NRG Automated urine sediment leukocyte count by microscopy (number/high power field) TNTC NRG Bacteria detection in urine sediment by light microsco py MODERATE NRG Crystals detection in urine sediment by light microsco py NONE NRG Casts detection in urine sediment by light microscopy NONE NRG Mucus detection in urine sediment by light microscopy NEGATIVE NRG Complete urinalysis with reflex to culture YES NRG Bacterial urine culture - 06/17/19 14:00 Bacterial urine culture SEE COMMEN NRG COLONY COUNT . NRG FTX;REPORTABLE SUSCEPTIBILITY REPORTED 06/21 12:55 NRG FREE TEXT ENTRY 2 ESBL PRODUCING STRAIN NRG Dirithromycin susceptibility test by dis k diffusion - 06/17/19 14:00 Gentamicin susceptibility test by minimum inhibitory c oncentration > NRG Trimethoprim/sulfamethoxazole susceptibi lity test by minimum inhibitoryconcentration > NRG Levofloxacin susceptibility test by minimum inhibitory concentration 2 NRG Ampicillin susceptibility test by minimum inhibitory c oncentration > NRG Cefazolin susceptibility test by minimum inhibitory co ncentration > NRG Ceftriaxone susceptibility test by minimum inhibitory concentration > NRG Ciprofloxacin susceptibility test by minimum inhibitor y concentration > NRG Meropenem susceptibility test by minimum inhibitory co ncentration <= NRG Nitrofurantoin susceptibility test by mi nimum inhibitory concentration <= NRG Amoxicillin and clavulanate potassium susc RENO R NRG Dirithromycin susceptibility test by dis k diffusion - 06/17/19 14:00 Gentamicin susceptibility test by minimum inhibitory c oncentration > NRG Trimethoprim/sulfamethoxazole susceptibi lity test by minimum inhibitoryconcentration > NRG Levofloxacin susceptibility test by minimum inhibitory concentration > NRG Ampicillin susceptibility test by minimum inhibitory c oncentration > NRG Cefazolin susceptibility test by minimum inhibitory co ncentration > NRG Ceftriaxone susceptibility test by minimum inhibitory concentration > NRG Ciprofloxacin susceptibility test by minimum inhibitor y concentration > NRG Meropenem susceptibility test by minimum inhibitory co ncentration <= NRG Nitrofurantoin susceptibility test by mi nimum inhibitory concentration 64 NRG Amoxicillin and clavulanate potassium susc RENO R NRG C-PEPTIDE, SERUM - 07/08/19 11:43 C-PEPTIDE 6.29 ng/mL 0.80-3.85 Comprehensive metabolic panel - 07/14/19 12:20 Serum or plasma sodium measurement (moles/volume) 136 mmol/L 135-145 Serum or plasma potassium measurement (moles/volume) 4.1 mmol/L 3.6-5.0 Serum or plasma chloride measurement (moles/volume) 96 mmol/L 98-107 Carbon dioxide 26 mmol/L 21-32 Serum or plasma anion gap determination (moles/volume) 14 mmol/L 5-14 Serum or plasma urea nitrogen measurement (mass/volume ) 27 mg/dL 7-18 Serum or plasma creatinine measurement (mass/volume) 1.16 mg/dL 0.60-1.30 Serum or plasma urea nitrogen/creatinine mass ratio 23 NRG Serum or plasma creatinine measurement w ith calculation of estimated glomerular filtration rate 48 NRG Serum or plasma glucose measurement (mass/volume) 340 mg/dL 70-105 Serum or plasma calcium measurement (mass/volume) 9.6 mg/dL 8.5-10.1 Serum or plasma total bilirubin measurement (mass/volu me) 0.2 mg/dL 0.1-1.0 Serum or plasma alkaline phosphatase deanna surement (enzymatic activity/volume) 145 U/L 40-136 Serum or plasma aspartate aminotransfera se measurement (enzymatic activity/volume) 30 U/L 5-34 Serum or plasma alanine aminotransferase measurement (enzymatic activity/volume) 28 U/L 0-55 Serum or plasma protein measurement (mass/volume) 7.8 g/dL 6.4-8.2 Serum or plasma albumin measurement (mass/volume) 3.6 g/dL 3.2-4.5 CALCIUM CORRECTED 9.9 mg/dL 8.5-10.1 Magnesium - 07/14/19 12:20 Magnesium 2.3 mg/dL 1.6-2.4 Serum or plasma amylase measurement (enz ymatic activity/volume) - 07/14/19 12:20 Serum or plasma amylase measurement (enzymatic activit y/volume) 50 U/L 25-125 Lipase - 07/14/19 12:20 Lipase 65 U/L 8-78 Complete blood count (CBC) with automate d white blood cell (WBC) differential - 07/14/19 12:20 Blood leukocytes automated count (number/volume) 11.9 10*3/uL 4.3-11.0 Blood erythrocytes automated count (number/volume) 4.71 10*6/uL 4.35-5.85 Venous blood hemoglobin measurement (mass/volume) 13.4 g/dL 11.5-16.0 Blood hematocrit (volume fraction) 42 % 35-52 Automated erythrocyte mean corpuscular volume 89 [ foz_us] 80-99 Automated erythrocyte mean corpuscular h emoglobin (mass per erythrocyte) 28 pg 25-34 Automated erythrocyte mean corpuscular h emoglobin concentration measurement (mass/volume) 32 g/dL 32-36 Automated erythrocyte distribution width ratio 14. 4 % 10.0- 14.5 Automated blood platelet count (count/volume) 347 10*3/uL 130-400 Automated blood platelet mean volume measurement 11.8 [foz_us] 7.4-10.4 Automated blood neutrophils/100 leukocytes 66 % 42-75 Automated blood lymphocytes/100 leukocytes 26 % 12-44 Blood monocytes/100 leukocytes 5 % 0-12 Automated blood eosinophils/100 leukocytes 2 % 0-10 Automated blood basophils/100 leukocytes 1 % 0-10 Blood neutrophils automated count (number/volume) 7.9 10*3 1.8-7.8 Blood lymphocytes automated count (number/volume) 3.1 10*3 1.0-4.0 Blood monocytes automated count (number/volume) 0. 6 10*3 0.0-1.0 Automated eosinophil count 0.2 10*3/uL 0 .0-0.3 Automated blood basophil count (count/volume) 0.1 10*3/uL 0.0-0.1 Blood lactic acid measurement (moles/vol ume) - 07/14/19 12:20 Blood lactic acid measurement (moles/volume) 2.59 mmol/L 0.50-2.00 CRP FS - 07/14/19 12:20 CRP FS 1.41 mg/dL <0.50 Bacterial blood culture - 07/14/19 12:20 Bacterial blood culture NG NRG Complete urinalysis with reflex to cultu re - 07/14/19 13:05 Urine color determination YELLOW NRG Urine clarity determination CLOUDY NR G Urine pH measurement by test strip 6.0 5-9 Specific gravity of urine by test strip <= 1.016-1.022 Urine protein assay by test strip, semi-quantitative NEGATIVE NEGATIVE Urine glucose detection by automated test strip 3+ NEGATIVE Erythrocytes detection in urine sediment by light micr oscopy 1+ NEGATIVE Urine ketones detection by automated test strip NE GATIVE NEGATIVE Urine nitrite detection by test strip POSITIVE NEGATIVE Urine total bilirubin detection by test strip NEGA TIVE NEGATIVE Urine urobilinogen measurement by automated test strip (mass/volume) 0.2 mg/dL < = 1.0 Urine leukocyte esterase detection by dipstick 2+ NEGATIVE Automated urine sediment erythrocyte cou nt by microscopy (number/high power field) [HPF] NRG Automated urine sediment leukocyte count by microscopy (number/high power field) > [HPF] NRG Bacteria detection in urine sediment by light microsco py LARGE NRG Squamous epithelial cells detection in u rine sediment by light microscopy 5-10 NRG Crystals detection in urine sediment by light microsco py NONE NRG Casts detection in urine sediment by light microscopy NONE NRG Mucus detection in urine sediment by light microscopy NEGATIVE NRG Complete urinalysis with reflex to culture YES NRG Urine drug screening test - 07/14/19 13: 05 Urine phencyclidine detection by screening method NEGATIVE NEGATIVE Urine benzodiazepines detection by screening method NEGATIVE NEGATIVE Urine cocaine detection NEGATIVE NEGATI VE Urine amphetamines detection by screening method N EGATIVE NEGATIVE Urine methamphetamine detection by screening method NEGATIVE NEGATIVE Urine cannabinoids detection by screening method N EGATIVE NEGATIVE Urine opiates detection by screening method NEGATI VE NEGATIVE Urine barbiturates detection NEGATIVE N EGATIVE Screening urine tricyclic antidepressants detection POSITIVE NEGATIVE Urine methadone detection by screening method NEGA TIVE NEGATIVE Urine oxycodone detection NEGATIVE NEGA TIVE Urine propoxyphene detection NEGATIVE N EGATIVE Bacterial urine culture - 07/14/19 13:05 Bacterial urine culture [id number] NRG COLONY COUNT 70,000 cfu/ml NRG FTX;REPORTABLE SUSCEPTIBILITY REPORTED 07-17-2019, 0848 NRG FREE TEXT ENTRY 2 ESBL - SEE COMMENT NR G FREE TEXT ENTRY 3 RESISTANT ORGANISM/CONTACT PRECA UTIONS NRG Dirithromycin susceptibility test by dis k diffusion - 07/14/19 13:05 Gentamicin susceptibility test by minimum inhibitory c oncentration > NRG Trimethoprim/sulfamethoxazole susceptibi lity test by minimum inhibitoryconcentration > NRG Levofloxacin susceptibility test by minimum inhibitory concentration 2 NRG Ampicillin susceptibility test by minimum inhibitory c oncentration > NRG Cefazolin susceptibility test by minimum inhibitory co ncentration > NRG Ceftriaxone susceptibility test by minimum inhibitory concentration > NRG Ciprofloxacin susceptibility test by minimum inhibitor y concentration > NRG Meropenem susceptibility test by minimum inhibitory co ncentration <= NRG Nitrofurantoin susceptibility test by mi nimum inhibitory concentration <= NRG Amoxicillin and clavulanate potassium susc RENO R NRG Dirithromycin susceptibility test by dis k diffusion - 07/14/19 13:05 Gentamicin susceptibility test by minimum inhibitory c oncentration > NRG Trimethoprim/sulfamethoxazole susceptibi lity test by minimum inhibitoryconcentration > NRG Levofloxacin susceptibility test by minimum inhibitory concentration 2 NRG Ampicillin susceptibility test by minimum inhibitory c oncentration > NRG Cefazolin susceptibility test by minimum inhibitory co ncentration > NRG Ceftriaxone susceptibility test by minimum inhibitory concentration > NRG Ciprofloxacin susceptibility test by minimum inhibitor y concentration > NRG Meropenem susceptibility test by minimum inhibitory co ncentration <= NRG Nitrofurantoin susceptibility test by mi nimum inhibitory concentration 64 NRG Amoxicillin and clavulanate potassium susc RENO R NRG Bacterial blood culture - 07/14/19 14:00 Bacterial blood culture NG NRG Serum or plasma lactate measurement (mol es/volume) - 07/14/19 14:30 Serum or plasma lactate measurement (moles/volume) 2.02 mmol/L 0.50-2.00 Complete blood count (CBC) with automate d white blood cell (WBC) differential - 07/15/19 03:40 Blood leukocytes automated count (number/volume) 12.1 10*3/uL 4.3-11.0 Blood erythrocytes automated count (number/volume) 4.17 10*6/uL 4.35-5.85 Venous blood hemoglobin measurement (mass/volume) 11.7 g/dL 11.5-16.0 Blood hematocrit (volume fraction) 37 % 35-52 Automated erythrocyte mean corpuscular volume 89 [ foz_us] 80-99 Automated erythrocyte mean corpuscular h emoglobin (mass per erythrocyte) 28 pg 25-34 Automated erythrocyte mean corpuscular h emoglobin concentration measurement (mass/volume) 32 g/dL 32-36 Automated erythrocyte distribution width ratio 14. 6 % 10.0- 14.5 Automated blood platelet count (count/volume) 268 10*3/uL 130-400 Automated blood platelet mean volume measurement 11.5 [foz_us] 7.4-10.4 Automated blood neutrophils/100 leukocytes 68 % 42-75 Automated blood lymphocytes/100 leukocytes 22 % 12-44 Blood monocytes/100 leukocytes 8 % 0-12 Automated blood eosinophils/100 leukocytes 2 % 0-10 Automated blood basophils/100 leukocytes 1 % 0-10 Blood neutrophils automated count (number/volume) 8.2 10*3 1.8-7.8 Blood lymphocytes automated count (number/volume) 2.6 10*3 1.0-4.0 Blood monocytes automated count (number/volume) 1. 0 10*3 0.0-1.0 Automated eosinophil count 0.2 10*3/uL 0 .0-0.3 Automated blood basophil count (count/volume) 0.1 10*3/uL 0.0-0.1 Comprehensive metabolic panel - 07/15/19 03:40 Serum or plasma sodium measurement (moles/volume) 140 mmol/L 135-145 Serum or plasma potassium measurement (moles/volume) 4.1 mmol/L 3.6-5.0 Serum or plasma chloride measurement (moles/volume) 102 mmol/L 98-107 Carbon dioxide 24 mmol/L 21-32 Serum or plasma anion gap determination (moles/volume) 14 mmol/L 5-14 Serum or plasma urea nitrogen measurement (mass/volume ) 20 mg/dL 7-18 Serum or plasma creatinine measurement (mass/volume) 0.98 mg/dL 0.60-1.30 Serum or plasma urea nitrogen/creatinine mass ratio 20 NRG Serum or plasma creatinine measurement w ith calculation of estimated glomerular filtration rate 59 NRG Serum or plasma glucose measurement (mass/volume) 193 mg/dL 70-105 Serum or plasma calcium measurement (mass/volume) 8.8 mg/dL 8.5-10.1 Serum or plasma total bilirubin measurement (mass/volu me) 0.3 mg/dL 0.1-1.0 Serum or plasma alkaline phosphatase deanna surement (enzymatic activity/volume) 133 U/L 40-136 Serum or plasma aspartate aminotransfera se measurement (enzymatic activity/volume) 30 U/L 5-34 Serum or plasma alanine aminotransferase measurement (enzymatic activity/volume) 27 U/L 0-55 Serum or plasma protein measurement (mass/volume) 6.5 g/dL 6.4-8.2 Serum or plasma albumin measurement (mass/volume) 3.1 g/dL 3.2-4.5 CALCIUM CORRECTED 9.5 mg/dL 8.5-10.1 Serum or plasma phosphate measurement (m ass/volume) - 07/15/19 03:40 Serum or plasma phosphate measurement (mass/volume) 4.4 mg/dL 2.3-4.7 Magnesium - 07/15/19 03:40 Magnesium 2.1 mg/dL 1.6-2.4 Hemoglobin A1c measurement - 07/15/19 03 :40 Blood hemoglobin A1C measurement (mass/volume) 10. 8 % 4.0- 5.6 MEAN BLOOD GLUCOSE 263 % <=126 Blood lactic acid measurement (moles/vol ume) - 07/15/19 05:55 Blood lactic acid measurement (moles/volume) 1.45 mmol/L 0.50-2.00 Complete blood count (CBC) with automate d white blood cell (WBC) differential - 07/16/19 05:36 Blood leukocytes automated count (number/volume) 8.9 10*3/uL 4.3-11.0 Blood erythrocytes automated count (number/volume) 4.28 10*6/uL 4.35-5.85 Venous blood hemoglobin measurement (mass/volume) 11.9 g/dL 11.5-16.0 Blood hematocrit (volume fraction) 38 % 35-52 Automated erythrocyte mean corpuscular volume 90 [ foz_us] 80-99 Automated erythrocyte mean corpuscular h emoglobin (mass per erythrocyte) 28 pg 25-34 Automated erythrocyte mean corpuscular h emoglobin concentration measurement (mass/volume) 31 g/dL 32-36 Automated erythrocyte distribution width ratio 14. 6 % 10.0- 14.5 Automated blood platelet count (count/volume) 257 10*3/uL 130-400 Automated blood platelet mean volume measurement 12.0 [foz_us] 7.4-10.4 Automated blood neutrophils/100 leukocytes 58 % 42-75 Automated blood lymphocytes/100 leukocytes 30 % 12-44 Blood monocytes/100 leukocytes 9 % 0-12 Automated blood eosinophils/100 leukocytes 3 % 0-10 Automated blood basophils/100 leukocytes 0 % 0-10 Blood neutrophils automated count (number/volume) 5.2 10*3 1.8-7.8 Blood lymphocytes automated count (number/volume) 2.7 10*3 1.0-4.0 Blood monocytes automated count (number/volume) 0. 8 10*3 0.0-1.0 Automated eosinophil count 0.2 10*3/uL 0 .0-0.3 Automated blood basophil count (count/volume) 0.0 10*3/uL 0.0-0.1 Comprehensive metabolic panel - 07/16/19 05:36 Serum or plasma sodium measurement (moles/volume) 138 mmol/L 135-145 Serum or plasma potassium measurement (moles/volume) 3.9 mmol/L 3.6-5.0 Serum or plasma chloride measurement (moles/volume) 100 mmol/L 98-107 Carbon dioxide 25 mmol/L 21-32 Serum or plasma anion gap determination (moles/volume) 13 mmol/L 5-14 Serum or plasma urea nitrogen measurement (mass/volume ) 14 mg/dL 7-18 Serum or plasma creatinine measurement (mass/volume) 0.97 mg/dL 0.60-1.30 Serum or plasma urea nitrogen/creatinine mass ratio 14 NRG Serum or plasma creatinine measurement w ith calculation of estimated glomerular filtration rate 59 NRG Serum or plasma glucose measurement (mass/volume) 215 mg/dL 70-105 Serum or plasma calcium measurement (mass/volume) 9.4 mg/dL 8.5-10.1 Serum or plasma total bilirubin measurement (mass/volu me) 0.3 mg/dL 0.1-1.0 Serum or plasma alkaline phosphatase deanna surement (enzymatic activity/volume) 135 U/L 40-136 Serum or plasma aspartate aminotransfera se measurement (enzymatic activity/volume) 21 U/L 5-34 Serum or plasma alanine aminotransferase measurement (enzymatic activity/volume) 29 U/L 0-55 Serum or plasma protein measurement (mass/volume) 6.8 g/dL 6.4-8.2 Serum or plasma albumin measurement (mass/volume) 3.3 g/dL 3.2-4.5 CALCIUM CORRECTED 10.0 mg/dL 8.5-10.1 Complete blood count (CBC) with automate d white blood cell (WBC) differential - 07/17/19 04:45 Blood leukocytes automated count (number/volume) 11.9 10*3/uL 4.3-11.0 Blood erythrocytes automated count (number/volume) 4.33 10*6/uL 4.35-5.85 Venous blood hemoglobin measurement (mass/volume) 12.3 g/dL 11.5-16.0 Blood hematocrit (volume fraction) 39 % 35-52 Automated erythrocyte mean corpuscular volume 89 [ foz_us] 80-99 Automated erythrocyte mean corpuscular h emoglobin (mass per erythrocyte) 28 pg 25-34 Automated erythrocyte mean corpuscular h emoglobin concentration measurement (mass/volume) 32 g/dL 32-36 Automated erythrocyte distribution width ratio 14. 4 % 10.0- 14.5 Automated blood platelet count (count/volume) 275 10*3/uL 130-400 Automated blood platelet mean volume measurement 12.0 [foz_us] 7.4-10.4 Automated blood neutrophils/100 leukocytes 62 % 42-75 Automated blood lymphocytes/100 leukocytes 28 % 12-44 Blood monocytes/100 leukocytes 8 % 0-12 Automated blood eosinophils/100 leukocytes 2 % 0-10 Automated blood basophils/100 leukocytes 1 % 0-10 Blood neutrophils automated count (number/volume) 7.3 10*3 1.8-7.8 Blood lymphocytes automated count (number/volume) 3.3 10*3 1.0-4.0 Blood monocytes automated count (number/volume) 1. 0 10*3 0.0-1.0 Automated eosinophil count 0.3 10*3/uL 0 .0-0.3 Automated blood basophil count (count/volume) 0.1 10*3/uL 0.0-0.1 Comprehensive metabolic panel - 07/17/19 04:45 Serum or plasma sodium measurement (moles/volume) 136 mmol/L 135-145 Serum or plasma potassium measurement (moles/volume) 4.5 mmol/L 3.6-5.0 Serum or plasma chloride measurement (moles/volume) 98 mmol/L 98-107 Carbon dioxide 24 mmol/L 21-32 Serum or plasma anion gap determination (moles/volume) 14 mmol/L 5-14 Serum or plasma urea nitrogen measurement (mass/volume ) 19 mg/dL 7-18 Serum or plasma creatinine measurement (mass/volume) 1.23 mg/dL 0.60-1.30 Serum or plasma urea nitrogen/creatinine mass ratio 15 NRG Serum or plasma creatinine measurement w ith calculation of estimated glomerular filtration rate 45 NRG Serum or plasma glucose measurement (mass/volume) 292 mg/dL 70-105 Serum or plasma calcium measurement (mass/volume) 9.8 mg/dL 8.5-10.1 Serum or plasma total bilirubin measurement (mass/volu me) 0.2 mg/dL 0.1-1.0 Serum or plasma alkaline phosphatase deanna surement (enzymatic activity/volume) 131 U/L 40-136 Serum or plasma aspartate aminotransfera se measurement (enzymatic activity/volume) 21 U/L 5-34 Serum or plasma alanine aminotransferase measurement (enzymatic activity/volume) 25 U/L 0-55 Serum or plasma protein measurement (mass/volume) 7.1 g/dL 6.4-8.2 Serum or plasma albumin measurement (mass/volume) 3.3 g/dL 3.2-4.5 CALCIUM CORRECTED 10.4 mg/dL 8.5-10.1 Capillary blood glucose measurement by g lucometer (mass/volume) - 07/17/19 11:17 Capillary blood glucose measurement by glucometer (mas s/volume) 488 mg/dL 70-110 Complete blood count (CBC) with automate d white blood cell (WBC) differential - 09/07/19 11:39 Blood leukocytes automated count (number/volume) 10.0 10*3/uL 4.3-11.0 Blood erythrocytes automated count (number/volume) 4.27 10*6/uL 4.35-5.85 Venous blood hemoglobin measurement (mass/volume) 12.2 g/dL 11.5-16.0 Blood hematocrit (volume fraction) 38 % 35-52 Automated erythrocyte mean corpuscular volume 89 [ foz_us] 80-99 Automated erythrocyte mean corpuscular h emoglobin (mass per erythrocyte) 29 pg 25-34 Automated erythrocyte mean corpuscular h emoglobin concentration measurement (mass/volume) 32 g/dL 32-36 Automated erythrocyte distribution width ratio 16. 1 % 10.0- 14.5 Automated blood platelet count (count/volume) 191 10*3/uL 130-400 Automated blood platelet mean volume measurement 12.7 [foz_us] 7.4-10.4 Automated blood neutrophils/100 leukocytes 71 % 42-75 Automated blood lymphocytes/100 leukocytes 20 % 12-44 Blood monocytes/100 leukocytes 8 % 0-12 Automated blood eosinophils/100 leukocytes 0 % 0-10 Automated blood basophils/100 leukocytes 0 % 0-10 Blood neutrophils automated count (number/volume) 7.1 10*3 1.8-7.8 Blood lymphocytes automated count (number/volume) 2.0 10*3 1.0-4.0 Blood monocytes automated count (number/volume) 0. 8 10*3 0.0-1.0 Automated eosinophil count 0.0 10*3/uL 0 .0-0.3 Automated blood basophil count (count/volume) 0.0 10*3/uL 0.0-0.1 Blood lactic acid measurement (moles/vol ume) - 09/07/19 11:39 Blood lactic acid measurement (moles/volume) 1.41 mmol/L 0.50-2.00 Comprehensive metabolic panel - 09/07/19 11:39 Serum or plasma sodium measurement (moles/volume) 133 mmol/L 135-145 Serum or plasma potassium measurement (moles/volume) 4.2 mmol/L 3.6-5.0 Serum or plasma chloride measurement (moles/volume) 95 mmol/L 98-107 Carbon dioxide 23 mmol/L 21-32 Serum or plasma anion gap determination (moles/volume) 15 mmol/L 5-14 Serum or plasma urea nitrogen measurement (mass/volume ) 30 mg/dL 7-18 Serum or plasma creatinine measurement (mass/volume) 0.87 mg/dL 0.60-1.30 Serum or plasma urea nitrogen/creatinine mass ratio 34 NRG Serum or plasma creatinine measurement w ith calculation of estimated glomerular filtration rate > NRG Serum or plasma glucose measurement (mass/volume) 302 mg/dL 70-105 Serum or plasma calcium measurement (mass/volume) 9.0 mg/dL 8.5-10.1 Serum or plasma total bilirubin measurement (mass/volu me) 0.2 mg/dL 0.1-1.0 Serum or plasma alkaline phosphatase deanna surement (enzymatic activity/volume) 118 U/L 40-136 Serum or plasma aspartate aminotransfera se measurement (enzymatic activity/volume) 15 U/L 5-34 Serum or plasma alanine aminotransferase measurement (enzymatic activity/volume) 25 U/L 0-55 Serum or plasma protein measurement (mass/volume) 7.4 g/dL 6.4-8.2 Serum or plasma albumin measurement (mass/volume) 3.4 g/dL 3.2-4.5 CALCIUM CORRECTED 9.5 mg/dL 8.5-10.1 PROBNP FS - 09/07/19 11:39 PROBNP FS 871.8 pg/mL <75.0 Bacterial blood culture - 09/07/19 11:39 Bacterial blood culture NG NRG TROPONIN I FS - 09/07/19 11:55 TROPONIN I FS < 0.30 <0.30 Complete urinalysis with reflex to cultu re - 09/07/19 12:25 Urine color determination YELLOW NRG Urine clarity determination CLEAR NR G Urine pH measurement by test strip 5.5 5-9 Specific gravity of urine by test strip 1.010 1.016-1.022 Urine protein assay by test strip, semi-quantitative NEGATIVE NEGATIVE Urine glucose detection by automated test strip 3+ NEGATIVE Erythrocytes detection in urine sediment by light micr oscopy 2+ NEGATIVE Urine ketones detection by automated test strip NE GATIVE NEGATIVE Urine nitrite detection by test strip NEGATIVE NEGATIVE Urine total bilirubin detection by test strip NEGA TIVE NEGATIVE Urine urobilinogen measurement by automated test strip (mass/volume) 0.2 mg/dL < = 1.0 Urine leukocyte esterase detection by dipstick 1+ NEGATIVE Automated urine sediment erythrocyte cou nt by microscopy (number/high power field) [HPF] NRG Automated urine sediment leukocyte count by microscopy (number/high power field) TNTC NRG Bacteria detection in urine sediment by light microsco py FEW NRG Squamous epithelial cells detection in u rine sediment by light microscopy 2-5 NRG Crystals detection in urine sediment by light microsco py NONE NRG Casts detection in urine sediment by light microscopy NONE NRG Mucus detection in urine sediment by light microscopy NEGATIVE NRG Complete urinalysis with reflex to culture YES NRG Bacterial urine culture - 09/07/19 12:25 Bacterial urine culture [id number] NRG COLONY COUNT >100,000/ML NRG FTX;REPORTABLE SUSCEPTIBILITY REPORTED 09/10/19 12: 50 NRG FREE TEXT ENTRY 2 PRELIM RAPID ID TEST AT [facility] 09/08 8:00 NRG FREE TEXT ENTRY 3 PRELIM RAPID ID TEST AT [facility] 09/08 8:00 NRG FREE TEXT ENTRY 4 RML REPORTED ID 09/08 14:05 NRG Dirithromycin susceptibility test by dis k diffusion - 09/07/19 12:25 Gentamicin susceptibility test by minimum inhibitory c oncentration <= NRG Trimethoprim/sulfamethoxazole susceptibi lity test by minimum inhibitoryconcentration > NRG Levofloxacin susceptibility test by minimum inhibitory concentration <= NRG Ampicillin susceptibility test by minimum inhibitory c oncentration > NRG Cefazolin susceptibility test by minimum inhibitory co ncentration <= NRG Ceftriaxone susceptibility test by minimum inhibitory concentration <= NRG Ciprofloxacin susceptibility test by minimum inhibitor y concentration <= NRG Meropenem susceptibility test by minimum inhibitory co ncentration <= NRG Nitrofurantoin susceptibility test by mi nimum inhibitory concentration <= NRG Amoxicillin and clavulanate potassium susc RENO <= NRG Dirithromycin susceptibility test by dis k diffusion - 09/07/19 12:25 Gentamicin susceptibility test by minimum inhibitory c oncentration > NRG Trimethoprim/sulfamethoxazole susceptibi lity test by minimum inhibitoryconcentration > NRG Ampicillin susceptibility test by minimum inhibitory c oncentration > NRG Cefazolin susceptibility test by minimum inhibitory co ncentration > NRG Ceftriaxone susceptibility test by minimum inhibitory concentration > NRG Ciprofloxacin susceptibility test by minimum inhibitor y concentration > NRG Meropenem susceptibility test by minimum inhibitory co ncentration <= NRG Nitrofurantoin susceptibility test by mi nimum inhibitory concentration <= NRG Amoxicillin and clavulanate potassium susc RENO R NRG Arterial blood gas measurement - 0 13:53 Blood pCO2 49 mm[Hg] 35-45 Blood pO2 57 mm[Hg] 79-93 Arterial blood bicarbonate measurement (moles/volume) 26 mmol/L 23-27 Arterial blood base excess by calculation 0.1 mmol /L -2.5-2.5 Arterial blood oxygen saturation measurement 87 % 94-100 * Inhaled oxygen flow rate 3L NRG Arterial blood pH measurement with patient temperature correction 7.34 7.37-7.43 Arterial blood carbon dioxide, total measurement (mole s/volume) 27.9 mmol/L 21.0-31.0 Body site RT RAD NRG Assessment of wrist artery patency prior to arterial p uncture YES-POS NRG Setting of ventilation mode NO NR G Measurement of body temperature 36.5 NRG Influenza virus A and B antigen detectio n - 09/07/19 13:53 CALL POSITIVES (F1 HELP) KRISTIE NRG FLU RESULT POSITIVE FOR INFLUENZA B ANT IGEN, NEG FOR A ANTIGEN, BY IA NRG Complete blood count (CBC) with automate d white blood cell (WBC) differential - 09/08/19 03:00 Blood leukocytes automated count (number/volume) 11.8 10*3/uL 4.3-11.0 Blood erythrocytes automated count (number/volume) 4.25 10*6/uL 4.35-5.85 Venous blood hemoglobin measurement (mass/volume) 12.1 g/dL 11.5-16.0 Blood hematocrit (volume fraction) 37 % 35-52 Automated erythrocyte mean corpuscular volume 87 [ foz_us] 80-99 Automated erythrocyte mean corpuscular h emoglobin (mass per erythrocyte) 29 pg 25-34 Automated erythrocyte mean corpuscular h emoglobin concentration measurement (mass/volume) 33 g/dL 32-36 Automated erythrocyte distribution width ratio 15. 7 % 10.0- 14.5 Automated blood platelet count (count/volume) 201 10*3/uL 130-400 Automated blood platelet mean volume measurement 13.0 [foz_us] 7.4-10.4 Automated blood neutrophils/100 leukocytes 86 % 42-75 Automated blood lymphocytes/100 leukocytes 9 % 12-44 Blood monocytes/100 leukocytes 5 % 0-12 Automated blood eosinophils/100 leukocytes 0 % 0-10 Automated blood basophils/100 leukocytes 0 % 0-10 Blood neutrophils automated count (number/volume) 10.2 10*3 1.8-7.8 Blood lymphocytes automated count (number/volume) 1.1 10*3 1.0-4.0 Blood monocytes automated count (number/volume) 0. 6 10*3 0.0-1.0 Automated eosinophil count 0.0 10*3/uL 0 .0-0.3 Automated blood basophil count (count/volume) 0.0 10*3/uL 0.0-0.1 Comprehensive metabolic panel - 09/08/19 03:00 Serum or plasma sodium measurement (moles/volume) 134 mmol/L 135-145 Serum or plasma potassium measurement (moles/volume) 4.3 mmol/L 3.6-5.0 Serum or plasma chloride measurement (moles/volume) 96 mmol/L 98-107 Carbon dioxide 21 mmol/L 21-32 Serum or plasma anion gap determination (moles/volume) 17 mmol/L 5-14 Serum or plasma urea nitrogen measurement (mass/volume ) 32 mg/dL 7-18 Serum or plasma creatinine measurement (mass/volume) 1.23 mg/dL 0.60-1.30 Serum or plasma urea nitrogen/creatinine mass ratio 26 NRG Serum or plasma creatinine measurement w ith calculation of estimated glomerular filtration rate 45 NRG Serum or plasma glucose measurement (mass/volume) 388 mg/dL 70-105 Serum or plasma calcium measurement (mass/volume) 8.9 mg/dL 8.5-10.1 Serum or plasma total bilirubin measurement (mass/volu me) 0.2 mg/dL 0.1-1.0 Serum or plasma alkaline phosphatase deanna surement (enzymatic activity/volume) 106 U/L 40-136 Serum or plasma aspartate aminotransfera se measurement (enzymatic activity/volume) 15 U/L 5-34 Serum or plasma alanine aminotransferase measurement (enzymatic activity/volume) 27 U/L 0-55 Serum or plasma protein measurement (mass/volume) 7.3 g/dL 6.4-8.2 Serum or plasma albumin measurement (mass/volume) 3.4 g/dL 3.2-4.5 CALCIUM CORRECTED 9.4 mg/dL 8.5-10.1 Serum or plasma lithium measurement (mol es/volume) - 09/08/19 03:00 BNP PT 49.1 pg/mL <100.0 Serum or plasma phosphate measurement (m ass/volume) - 09/08/19 03:00 Serum or plasma phosphate measurement (mass/volume) 4.3 mg/dL 2.3-4.7 Magnesium - 09/08/19 03:00 Magnesium 2.0 mg/dL 1.6-2.4 Arterial blood gas measurement - 0 10:37 Blood pCO2 42 mm[Hg] 35-45 Blood pO2 70 mm[Hg] 79-93 Arterial blood bicarbonate measurement (moles/volume) 29 mmol/L 23-27 Arterial blood base excess by calculation 4.8 mmol /L -2.5-2.5 Arterial blood oxygen saturation measurement 94 % 94-100 * Inhaled oxygen flow rate 3 NRG Arterial blood pH measurement with patient temperature correction 7.45 7.37-7.43 Arterial blood carbon dioxide, total measurement (mole s/volume) 30.2 mmol/L 21.0-31.0 Body site L BRACHIAL NRG Assessment of wrist artery patency prior to arterial p uncture YES-POS NRG Setting of ventilation mode NO NR G Measurement of body temperature 36.3 NRG Capillary blood glucose measurement by g lucometer (mass/volume) - 09/08/19 11:08 Capillary blood glucose measurement by glucometer (mas s/volume) 437 mg/dL 70-110 Complete blood count (CBC) with automate d white blood cell (WBC) differential - 09/09/19 04:40 Blood leukocytes automated count (number/volume) 17.0 10*3/uL 4.3-11.0 Blood erythrocytes automated count (number/volume) 4.26 10*6/uL 4.35-5.85 Venous blood hemoglobin measurement (mass/volume) 12.0 g/dL 11.5-16.0 Blood hematocrit (volume fraction) 37 % 35-52 Automated erythrocyte mean corpuscular volume 86 [ foz_us] 80-99 Automated erythrocyte mean corpuscular h emoglobin (mass per erythrocyte) 28 pg 25-34 Automated erythrocyte mean corpuscular h emoglobin concentration measurement (mass/volume) 33 g/dL 32-36 Automated erythrocyte distribution width ratio 15. 8 % 10.0- 14.5 Automated blood platelet count (count/volume) 247 10*3/uL 130-400 Automated blood platelet mean volume measurement 12.1 [foz_us] 7.4-10.4 Automated blood neutrophils/100 leukocytes 89 % 42-75 Automated blood lymphocytes/100 leukocytes 6 % 12-44 Blood monocytes/100 leukocytes 5 % 0-12 Automated blood eosinophils/100 leukocytes 0 % 0-10 Automated blood basophils/100 leukocytes 0 % 0-10 Blood neutrophils automated count (number/volume) 15.2 10*3 1.8-7.8 Blood lymphocytes automated count (number/volume) 1.0 10*3 1.0-4.0 Blood monocytes automated count (number/volume) 0. 8 10*3 0.0-1.0 Automated eosinophil count 0.0 10*3/uL 0 .0-0.3 Automated blood basophil count (count/volume) 0.0 10*3/uL 0.0-0.1 Manual absolute plasma cell count - 08/13 05/01 04:40 Blood monocytes/100 leukocytes 3 % NRG Manual blood segmented neutrophils/100 leukocytes 91 % NRG Blood band neutrophils/100 leukocytes 3 % NRG Manual blood lymphocytes/100 leukocytes 3 % NRG Blood erythrocyte morphology finding identification NORMAL NR Whole blood basic metabolic panel - 08/13 05/01 04:40 Serum or plasma sodium measurement (moles/volume) 135 mmol/L 135-145 Serum or plasma potassium measurement (moles/volume) 4.3 mmol/L 3.6-5.0 Serum or plasma chloride measurement (moles/volume) 95 mmol/L 98-107 Carbon dioxide 26 mmol/L 21-32 Serum or plasma anion gap determination (moles/volume) 14 mmol/L 5-14 Serum or plasma urea nitrogen measurement (mass/volume ) 37 mg/dL 7-18 Serum or plasma creatinine measurement (mass/volume) 1.12 mg/dL 0.60-1.30 Serum or plasma urea nitrogen/creatinine mass ratio 33 NRG Serum or plasma creatinine measurement w ith calculation of estimated glomerular filtration rate 50 NRG Serum or plasma glucose measurement (mass/volume) 314 mg/dL 70-105 Serum or plasma calcium measurement (mass/volume) 9.1 mg/dL 8.5-10.1 Serum or plasma phosphate measurement (m ass/volume) - 09/09/19 04:40 Serum or plasma phosphate measurement (mass/volume) 3.5 mg/dL 2.3-4.7 Magnesium - 09/09/19 04:40 Magnesium 2.2 mg/dL 1.6-2.4 Capillary blood glucose measurement by g lucometer (mass/volume) - 09/09/19 11:24 Capillary blood glucose measurement by glucometer (mas s/volume) 479 mg/dL 70-110 Complete blood count (CBC) with automate d white blood cell (WBC) differential - 09/10/19 05:10 Blood leukocytes automated count (number/volume) 17.7 10*3/uL 4.3-11.0 Blood erythrocytes automated count (number/volume) 4.30 10*6/uL 4.35-5.85 Venous blood hemoglobin measurement (mass/volume) 12.1 g/dL 11.5-16.0 Blood hematocrit (volume fraction) 38 % 35-52 Automated erythrocyte mean corpuscular volume 87 [ foz_us] 80-99 Automated erythrocyte mean corpuscular h emoglobin (mass per erythrocyte) 28 pg 25-34 Automated erythrocyte mean corpuscular h emoglobin concentration measurement (mass/volume) 32 g/dL 32-36 Automated erythrocyte distribution width ratio 15. 5 % 10.0- 14.5 Automated blood platelet count (count/volume) 234 10*3/uL 130-400 Automated blood platelet mean volume measurement 12.1 [foz_us] 7.4-10.4 Automated blood neutrophils/100 leukocytes 89 % 42-75 Automated blood lymphocytes/100 leukocytes 6 % 12-44 Blood monocytes/100 leukocytes 5 % 0-12 Automated blood eosinophils/100 leukocytes 0 % 0-10 Automated blood basophils/100 leukocytes 0 % 0-10 Blood neutrophils automated count (number/volume) 15.8 10*3 1.8-7.8 Blood lymphocytes automated count (number/volume) 1.0 10*3 1.0-4.0 Blood monocytes automated count (number/volume) 0. 9 10*3 0.0-1.0 Automated eosinophil count 0.0 10*3/uL 0 .0-0.3 Automated blood basophil count (count/volume) 0.0 10*3/uL 0.0-0.1 Whole blood basic metabolic panel - 08/14 05:10 Serum or plasma sodium measurement (moles/volume) 134 mmol/L 135-145 Serum or plasma potassium measurement (moles/volume) 4.4 mmol/L 3.6-5.0 Serum or plasma chloride measurement (moles/volume) 95 mmol/L 98-107 Carbon dioxide 25 mmol/L 21-32 Serum or plasma anion gap determination (moles/volume) 14 mmol/L 5-14 Serum or plasma urea nitrogen measurement (mass/volume ) 38 mg/dL 7-18 Serum or plasma creatinine measurement (mass/volume) 1.00 mg/dL 0.60-1.30 Serum or plasma urea nitrogen/creatinine mass ratio 38 NRG Serum or plasma creatinine measurement w ith calculation of estimated glomerular filtration rate 57 NRG Serum or plasma glucose measurement (mass/volume) 297 mg/dL 70-105 Serum or plasma calcium measurement (mass/volume) 9.1 mg/dL 8.5-10.1 Serum or plasma phosphate measurement (m ass/volume) - 09/10/19 05:10 Serum or plasma phosphate measurement (mass/volume) 3.4 mg/dL 2.3-4.7 Magnesium - 09/10/19 05:10 Magnesium 2.2 mg/dL 1.6-2.4 Methicillin resistant Staphylococcus aur eus (MRSA) screening culture - 09/10/19 12:15 MRSA SCREEN RESULT MRSA ISOLATED NRG Complete blood count (CBC) with automate d white blood cell (WBC) differential - 09/11/19 04:00 Blood leukocytes automated count (number/volume) 14.9 10*3/uL 4.3-11.0 Blood erythrocytes automated count (number/volume) 4.60 10*6/uL 4.35-5.85 Venous blood hemoglobin measurement (mass/volume) 12.6 g/dL 11.5-16.0 Blood hematocrit (volume fraction) 40 % 35-52 Automated erythrocyte mean corpuscular volume 86 [ foz_us] 80-99 Automated erythrocyte mean corpuscular h emoglobin (mass per erythrocyte) 27 pg 25-34 Automated erythrocyte mean corpuscular h emoglobin concentration measurement (mass/volume) 32 g/dL 32-36 Automated erythrocyte distribution width ratio 15. 7 % 10.0- 14.5 Automated blood platelet count (count/volume) 244 10*3/uL 130-400 Automated blood platelet mean volume measurement 12.0 [foz_us] 7.4-10.4 Automated blood neutrophils/100 leukocytes 83 % 42-75 Automated blood lymphocytes/100 leukocytes 9 % 12-44 Blood monocytes/100 leukocytes 8 % 0-12 Automated blood eosinophils/100 leukocytes 0 % 0-10 Automated blood basophils/100 leukocytes 0 % 0-10 Blood neutrophils automated count (number/volume) 12.5 10*3 1.8-7.8 Blood lymphocytes automated count (number/volume) 1.3 10*3 1.0-4.0 Blood monocytes automated count (number/volume) 1. 2 10*3 0.0-1.0 Automated eosinophil count 0.0 10*3/uL 0 .0-0.3 Automated blood basophil count (count/volume) 0.0 10*3/uL 0.0-0.1 Whole blood basic metabolic panel - 08/14 08/31 04:00 Serum or plasma sodium measurement (moles/volume) 134 mmol/L 135-145 Serum or plasma potassium measurement (moles/volume) 4.8 mmol/L 3.6-5.0 Serum or plasma chloride measurement (moles/volume) 93 mmol/L 98-107 Carbon dioxide 30 mmol/L 21-32 Serum or plasma anion gap determination (moles/volume) 11 mmol/L 5-14 Serum or plasma urea nitrogen measurement (mass/volume ) 36 mg/dL 7-18 Serum or plasma creatinine measurement (mass/volume) 0.89 mg/dL 0.60-1.30 Serum or plasma urea nitrogen/creatinine mass ratio 40 NRG Serum or plasma creatinine measurement w ith calculation of estimated glomerular filtration rate > NRG Serum or plasma glucose measurement (mass/volume) 280 mg/dL 70-105 Serum or plasma calcium measurement (mass/volume) 9.3 mg/dL 8.5-10.1 Serum or plasma phosphate measurement (m ass/volume) - 09/11/19 04:00 Serum or plasma phosphate measurement (mass/volume) 3.4 mg/dL 2.3-4.7 Magnesium - 09/11/19 04:00 Magnesium 2.3 mg/dL 1.6-2.4 Serum or plasma lithium measurement (mol es/volume) - 09/11/19 04:00 BNP PT 15.3 pg/mL <100.0 CULTURE, URINE - 09/30/19 11:43 CULTURE, URINE, ROUTINE SEE NOTE NRG Complete blood count (CBC) with automate d white blood cell (WBC) differential - 10/12/19 10:15 Blood leukocytes automated count (number/volume) 24.8 10*3/uL 4.3-11.0 Blood erythrocytes automated count (number/volume) 4.68 10*6/uL 4.35-5.85 Venous blood hemoglobin measurement (mass/volume) 13.1 g/dL 11.5-16.0 Blood hematocrit (volume fraction) 40 % 35-52 Automated erythrocyte mean corpuscular volume 85 [ foz_us] 80-99 Automated erythrocyte mean corpuscular h emoglobin (mass per erythrocyte) 28 pg 25-34 Automated erythrocyte mean corpuscular h emoglobin concentration measurement (mass/volume) 33 g/dL 32-36 Automated erythrocyte distribution width ratio 15. 5 % 10.0- 14.5 Automated blood platelet count (count/volume) 348 10*3/uL 130-400 Automated blood platelet mean volume measurement 11.8 [foz_us] 7.4-10.4 Automated blood neutrophils/100 leukocytes 79 % 42-75 Automated blood lymphocytes/100 leukocytes 11 % 12-44 Blood monocytes/100 leukocytes 8 % 0-12 Automated blood eosinophils/100 leukocytes 0 % 0-10 Automated blood basophils/100 leukocytes 1 % 0-10 Blood neutrophils automated count (number/volume) 19.6 10*3 1.8-7.8 Blood lymphocytes automated count (number/volume) 2.7 10*3 1.0-4.0 Blood monocytes automated count (number/volume) 1. 9 10*3 0.0-1.0 Automated eosinophil count 0.1 10*3/uL 0 .0-0.3 Automated blood basophil count (count/volume) 0.1 10*3/uL 0.0-0.1 Comprehensive metabolic panel - 10/12/19 10:15 Serum or plasma sodium measurement (moles/volume) 128 mmol/L 135-145 Serum or plasma potassium measurement (moles/volume) 4.4 mmol/L 3.6-5.0 Serum or plasma chloride measurement (moles/volume) 85 mmol/L 98-107 Carbon dioxide 17 mmol/L 21-32 Serum or plasma anion gap determination (moles/volume) 26 mmol/L 5-14 Serum or plasma urea nitrogen measurement (mass/volume ) 17 mg/dL 7-18 Serum or plasma creatinine measurement (mass/volume) 0.73 mg/dL 0.60-1.30 Serum or plasma urea nitrogen/creatinine mass ratio 23 NRG Serum or plasma creatinine measurement w ith calculation of estimated glomerular filtration rate > NRG Serum or plasma glucose measurement (mass/volume) 314 mg/dL 70-105 Serum or plasma calcium measurement (mass/volume) 9.9 mg/dL 8.5-10.1 Serum or plasma total bilirubin measurement (mass/volu me) 0.2 mg/dL 0.1-1.0 Serum or plasma alkaline phosphatase deanna surement (enzymatic activity/volume) 141 U/L 40-136 Serum or plasma aspartate aminotransfera se measurement (enzymatic activity/volume) 7 U/L 5-34 Serum or plasma alanine aminotransferase measurement (enzymatic activity/volume) 8 U/L 0-55 Serum or plasma protein measurement (mass/volume) 8.1 g/dL 6.4-8.2 Serum or plasma albumin measurement (mass/volume) 2.9 g/dL 3.2-4.5 CALCIUM CORRECTED 10.8 mg/dL 8.5-10.1 TROPONIN I FS - 10/12/19 10:15 TROPONIN I FS < 0.30 <0.30 Manual absolute plasma cell count - 10/01 10:15 Blood monocytes/100 leukocytes 8 % NRG Manual blood segmented neutrophils/100 leukocytes 71 % NRG Blood band neutrophils/100 leukocytes 10 % NRG Manual blood lymphocytes/100 leukocytes 11 % NRG Manual eosinophils/100 leukocytes in nose 0 % NRG Manual blood basophils/100 leukocytes 0 % NRG Blood erythrocyte morphology finding identification NORMAL NRG Blood lactic acid measurement (moles/vol ume) - 10/12/19 10:31 Blood lactic acid measurement (moles/volume) 1.56 mmol/L 0.50-2.00 Bacterial blood culture - 10/12/19 11:20 Bacterial blood culture NG NRG Bacterial blood culture - 10/12/19 11:25 Bacterial blood culture NG NRG Capillary blood glucose measurement by g lucometer (mass/volume) - 10/12/19 13:15 Capillary blood glucose measurement by glucometer (mas s/volume) 320 mg/dL 70-110 Capillary blood glucose measurement by g lucometer (mass/volume) - 10/12/19 16:12 Capillary blood glucose measurement by glucometer (mas s/volume) 298 mg/dL 70-110 Influenza virus A and B antigen detectio n - 10/12/19 17:35 FLU RESULT NEGATIVE FOR INFLUENZA A AND B ANTIGENS BY IA NRG Capillary blood glucose measurement by g lucometer (mass/volume) - 10/12/19 20:33 Capillary blood glucose measurement by glucometer (mas s/volume) 321 mg/dL 70-110 Complete blood count (CBC) with automate d white blood cell (WBC) differential - 10/13/19 05:05 Blood leukocytes automated count (number/volume) 24.1 10*3/uL 4.3-11.0 Blood erythrocytes automated count (number/volume) 4.44 10*6/uL 4.35-5.85 Venous blood hemoglobin measurement (mass/volume) 12.2 g/dL 11.5-16.0 Blood hematocrit (volume fraction) 36 % 35-52 Automated erythrocyte mean corpuscular volume 82 [ foz_us] 80-99 Automated erythrocyte mean corpuscular h emoglobin (mass per erythrocyte) 28 pg 25-34 Automated erythrocyte mean corpuscular h emoglobin concentration measurement (mass/volume) 34 g/dL 32-36 Automated erythrocyte distribution width ratio 15. 9 % 10.0- 14.5 Automated blood platelet count (count/volume) 343 10*3/uL 130-400 Automated blood platelet mean volume measurement 11.7 [foz_us] 7.4-10.4 Automated blood neutrophils/100 leukocytes 87 % 42-75 Automated blood lymphocytes/100 leukocytes 6 % 12-44 Blood monocytes/100 leukocytes 7 % 0-12 Automated blood eosinophils/100 leukocytes 0 % 0-10 Automated blood basophils/100 leukocytes 0 % 0-10 Blood neutrophils automated count (number/volume) 20.9 10*3 1.8-7.8 Blood lymphocytes automated count (number/volume) 1.4 10*3 1.0-4.0 Blood monocytes automated count (number/volume) 1. 8 10*3 0.0-1.0 Automated eosinophil count 0.0 10*3/uL 0 .0-0.3 Automated blood basophil count (count/volume) 0.1 10*3/uL 0.0-0.1 Comprehensive metabolic panel - 10/13/19 05:05 Serum or plasma sodium measurement (moles/volume) 133 mmol/L 135-145 Serum or plasma potassium measurement (moles/volume) 4.0 mmol/L 3.6-5.0 Serum or plasma chloride measurement (moles/volume) 100 mmol/L 98-107 Carbon dioxide 18 mmol/L 21-32 Serum or plasma anion gap determination (moles/volume) 15 mmol/L 5-14 Serum or plasma urea nitrogen measurement (mass/volume ) 22 mg/dL 7-18 Serum or plasma creatinine measurement (mass/volume) 1.22 mg/dL 0.60-1.30 Serum or plasma urea nitrogen/creatinine mass ratio 18 NRG Serum or plasma creatinine measurement w ith calculation of estimated glomerular filtration rate 46 NRG Serum or plasma glucose measurement (mass/volume) 343 mg/dL 70-105 Serum or plasma calcium measurement (mass/volume) 9.8 mg/dL 8.5-10.1 Serum or plasma total bilirubin measurement (mass/volu me) 0.2 mg/dL 0.1-1.0 Serum or plasma alkaline phosphatase deanna surement (enzymatic activity/volume) 130 U/L 40-136 Serum or plasma aspartate aminotransfera se measurement (enzymatic activity/volume) 12 U/L 5-34 Serum or plasma alanine aminotransferase measurement (enzymatic activity/volume) 13 U/L 0-55 Serum or plasma protein measurement (mass/volume) 7.1 g/dL 6.4-8.2 Serum or plasma albumin measurement (mass/volume) 3.0 g/dL 3.2-4.5 CALCIUM CORRECTED 10.6 mg/dL 8.5-10.1 Capillary blood glucose measurement by g lucometer (mass/volume) - 10/13/19 11:38 Capillary blood glucose measurement by glucometer (mas s/volume) 211 mg/dL 70-110 Capillary blood glucose measurement by g lucometer (mass/volume) - 10/13/19 16:17 Capillary blood glucose measurement by glucometer (mas s/volume) 334 mg/dL 70-110 Capillary blood glucose measurement by g lucometer (mass/volume) - 10/13/19 20:13 Capillary blood glucose measurement by glucometer (mas s/volume) 330 mg/dL 70-110 Automated blood complete blood count (he mogram) panel - 10/14/19 04:45 Blood leukocytes automated count (number/volume) 19.1 10*3/uL 4.3-11.0 Blood erythrocytes automated count (number/volume) 4.06 10*6/uL 4.35-5.85 Venous blood hemoglobin measurement (mass/volume) 11.3 g/dL 11.5-16.0 Blood hematocrit (volume fraction) 34 % 35-52 Automated erythrocyte mean corpuscular volume 84 [ foz_us] 80-99 Automated erythrocyte mean corpuscular h emoglobin (mass per erythrocyte) 28 pg 25-34 Automated erythrocyte mean corpuscular h emoglobin concentration measurement (mass/volume) 33 g/dL 32-36 Automated erythrocyte distribution width ratio 16. 3 % 10.0- 14.5 Automated blood platelet count (count/volume) 320 10*3/uL 130-400 Automated blood platelet mean volume measurement 11.5 [foz_us] 7.4-10.4 Whole blood basic metabolic panel - 11/29 04:45 Serum or plasma sodium measurement (moles/volume) 133 mmol/L 135-145 Serum or plasma potassium measurement (moles/volume) 3.9 mmol/L 3.6-5.0 Serum or plasma chloride measurement (moles/volume) 104 mmol/L 98-107 Carbon dioxide 17 mmol/L 21-32 Serum or plasma anion gap determination (moles/volume) 12 mmol/L 5-14 Serum or plasma urea nitrogen measurement (mass/volume ) 25 mg/dL 7-18 Serum or plasma creatinine measurement (mass/volume) 1.08 mg/dL 0.60-1.30 Serum or plasma urea nitrogen/creatinine mass ratio 23 NRG Serum or plasma creatinine measurement w ith calculation of estimated glomerular filtration rate 52 NRG Serum or plasma glucose measurement (mass/volume) 319 mg/dL 70-105 Serum or plasma calcium measurement (mass/volume) 8.8 mg/dL 8.5-10.1 Capillary blood glucose measurement by g lucometer (mass/volume) - 10/14/19 11:22 Capillary blood glucose measurement by glucometer (mas s/volume) 228 mg/dL 70-110 Complete blood count (CBC) with automate d white blood cell (WBC) differential - 10/17/19 13:30 Blood leukocytes automated count (number/volume) 23.7 10*3/uL 4.3-11.0 Blood erythrocytes automated count (number/volume) 4.05 10*6/uL 4.35-5.85 Venous blood hemoglobin measurement (mass/volume) 11.3 g/dL 11.5-16.0 Blood hematocrit (volume fraction) 35 % 35-52 Automated erythrocyte mean corpuscular volume 86 [ foz_us] 80-99 Automated erythrocyte mean corpuscular h emoglobin (mass per erythrocyte) 28 pg 25-34 Automated erythrocyte mean corpuscular h emoglobin concentration measurement (mass/volume) 32 g/dL 32-36 Automated erythrocyte distribution width ratio 16. 2 % 10.0- 14.5 Automated blood platelet count (count/volume) 444 10*3/uL 130-400 Automated blood platelet mean volume measurement 10.9 [foz_us] 7.4-10.4 Automated blood neutrophils/100 leukocytes 81 % 42-75 Automated blood lymphocytes/100 leukocytes 12 % 12-44 Blood monocytes/100 leukocytes 4 % 0-12 Automated blood eosinophils/100 leukocytes 0 % 0-10 Automated blood basophils/100 leukocytes 0 % 0-10 Blood neutrophils automated count (number/volume) 19.2 10*3 1.8-7.8 Blood lymphocytes automated count (number/volume) 2.8 10*3 1.0-4.0 Blood monocytes automated count (number/volume) 1. 0 10*3 0.0-1.0 Automated eosinophil count 0.1 10*3/uL 0 .0-0.3 Automated blood basophil count (count/volume) 0.1 10*3/uL 0.0-0.1 Manual absolute plasma cell count - 02/28 13:30 Blood monocytes/100 leukocytes 3 % NRG Manual blood segmented neutrophils/100 leukocytes 69 % NRG Blood band neutrophils/100 leukocytes 8 % NRG Manual blood lymphocytes/100 leukocytes 20 % NRG Manual eosinophils/100 leukocytes in nose 0 % NRG Manual blood basophils/100 leukocytes 0 % NRG Blood anisocytosis detection by light microscopy S LIGHT NRG Whole blood basic metabolic panel - 02/28 13:30 Serum or plasma sodium measurement (moles/volume) 136 mmol/L 135-145 Serum or plasma potassium measurement (moles/volume) 3.9 mmol/L 3.6-5.0 Serum or plasma chloride measurement (moles/volume) 91 mmol/L 98-107 Carbon dioxide 20 mmol/L 21-32 Serum or plasma anion gap determination (moles/volume) 25 mmol/L 5-14 Serum or plasma urea nitrogen measurement (mass/volume ) 21 mg/dL 7-18 Serum or plasma creatinine measurement (mass/volume) 0.68 mg/dL 0.60-1.30 Serum or plasma urea nitrogen/creatinine mass ratio 31 NRG Serum or plasma creatinine measurement w ith calculation of estimated glomerular filtration rate > NRG Serum or plasma glucose measurement (mass/volume) 321 mg/dL 70-105 Serum or plasma calcium measurement (mass/volume) 9.1 mg/dL 8.5-10.1 TROPONIN I FS - 10/17/19 13:30 TROPONIN I FS < 0.30 <0.30 PROBNP FS - 10/17/19 13:30 PROBNP FS 3498.0 pg/mL <75.0 Liver function panel (serum or plasma al k phos, alb, total and direct bili, total protein, ALT, AST) - 10/17/19 13:30 Serum or plasma total bilirubin measurement (mass/volu me) 0.2 mg/dL 0.1-1.0 Serum or plasma alkaline phosphatase deanna surement (enzymatic activity/volume) 120 U/L 40-136 Serum or plasma aspartate aminotransfera se measurement (enzymatic activity/volume) 13 U/L 5-34 Serum or plasma alanine aminotransferase measurement (enzymatic activity/volume) 11 U/L 0-55 Serum or plasma protein measurement (mass/volume) 7.1 g/dL 6.4-8.2 Serum or plasma albumin measurement (mass/volume) 2.7 g/dL 3.2-4.5 Bilirubin direct < mg/dL 0.0-0.3 Serum or plasma indirect bilirubin measurement (mass/v olume) 0.0 mg/dL NR Blood lactic acid measurement (moles/vol ume) - 10/17/19 15:13 Blood lactic acid measurement (moles/volume) 1.83 mmol/L 0.50-2.00 Bacterial blood culture - 10/17/19 15:13 Bacterial blood culture NG NRG Bacterial blood culture - 10/17/19 15:22 Bacterial blood culture NG NRG Complete urinalysis with reflex to cultu re - 10/17/19 15:45 Urine color determination YELLOW NRG Urine clarity determination CLOUDY NR G Urine pH measurement by test strip 5.0 5-9 Specific gravity of urine by test strip 1.010 1.016-1.022 Urine protein assay by test strip, semi-quantitative NEGATIVE NEGATIVE Urine glucose detection by automated test strip 3+ NEGATIVE Erythrocytes detection in urine sediment by light micr oscopy 1+ NEGATIVE Urine ketones detection by automated test strip 3+ NEGATIVE Urine nitrite detection by test strip NEGATIVE NEGATIVE Urine total bilirubin detection by test strip NEGA TIVE NEGATIVE Urine urobilinogen measurement by automated test strip (mass/volume) 0.2 mg/dL < = 1.0 Urine leukocyte esterase detection by dipstick 1+ NEGATIVE Automated urine sediment erythrocyte cou nt by microscopy (number/high power field) [HPF] NRG Automated urine sediment leukocyte count by microscopy (number/high power field) > [HPF] NRG Bacteria detection in urine sediment by light microsco py TRACE NRG Squamous epithelial cells detection in u rine sediment by light microscopy 2-5 NRG Crystals detection in urine sediment by light microsco py NONE NRG Casts detection in urine sediment by light microscopy NONE NRG Mucus detection in urine sediment by light microscopy NEGATIVE NRG Complete urinalysis with reflex to culture CULTURE PENDING NRG Yeast detection in urine sediment by light microscopy MODERATE NRG Urine drug screening test - 10/17/19 15: 45 Urine phencyclidine detection by screening method NEGATIVE NEGATIVE Urine benzodiazepines detection by screening method NEGATIVE NEGATIVE Urine cocaine detection NEGATIVE NEGATI VE Urine amphetamines detection by screening method N EGATIVE NEGATIVE Urine methamphetamine detection by screening method NEGATIVE NEGATIVE Urine cannabinoids detection by screening method N EGATIVE NEGATIVE Urine opiates detection by screening method NEGATI VE NEGATIVE Urine barbiturates detection NEGATIVE N EGATIVE Screening urine tricyclic antidepressants detection POSITIVE NEGATIVE Urine methadone detection by screening method NEGA TIVE NEGATIVE Urine oxycodone detection NEGATIVE NEGA TIVE Urine propoxyphene detection NEGATIVE N EGATIVE Bacterial urine culture - 10/17/19 15:45 Bacterial urine culture PROGRESS NRG COLONY COUNT . NRG Serum or plasma troponin i.cardiac measu rement (mass/volume) - 10/17/19 18:53 Serum or plasma troponin i.cardiac measurement (mass/v olume) < ng/mL <0.028 Serum or plasma lithium measurement (mol es/volume) - 10/17/19 18:53 BNP PT 152.9 pg/mL <100.0 Arterial blood gas measurement - 0 20:34 Blood pCO2 35 mm[Hg] 35-45 Blood pO2 62 mm[Hg] 79-93 Arterial blood bicarbonate measurement (moles/volume) 22 mmol/L 23-27 Arterial blood base excess by calculation -2.5 mmo l/L -2.5-2.5 Arterial blood oxygen saturation measurement 89 % 94-100 * Inhaled oxygen flow rate 7L NRG Arterial blood pH measurement with patient temperature correction 7.40 7.37-7.43 Arterial blood carbon dioxide, total measurement (mole s/volume) 22.8 mmol/L 21.0-31.0 Body site RIGHT RADIAL NRG Assessment of wrist artery patency prior to arterial p uncture YES-POS NRG Setting of ventilation mode NO NR G Measurement of body temperature 36.4 NRG Complete blood count (CBC) with automate d white blood cell (WBC) differential - 10/18/19 03:41 Blood leukocytes automated count (number/volume) 17.2 10*3/uL 4.3-11.0 Blood erythrocytes automated count (number/volume) 3.46 10*6/uL 4.35-5.85 Venous blood hemoglobin measurement (mass/volume) 9.4 g/dL 11.5-16.0 Blood hematocrit (volume fraction) 30 % 35-52 Automated erythrocyte mean corpuscular volume 86 [ foz_us] 80-99 Automated erythrocyte mean corpuscular h emoglobin (mass per erythrocyte) 27 pg 25-34 Automated erythrocyte mean corpuscular h emoglobin concentration measurement (mass/volume) 32 g/dL 32-36 Automated erythrocyte distribution width ratio 16. 3 % 10.0- 14.5 Automated blood platelet count (count/volume) 371 10*3/uL 130-400 Automated blood platelet mean volume measurement 10.4 [foz_us] 7.4-10.4 Automated blood neutrophils/100 leukocytes 81 % 42-75 Automated blood lymphocytes/100 leukocytes 12 % 12-44 Blood monocytes/100 leukocytes 6 % 0-12 Automated blood eosinophils/100 leukocytes 1 % 0-10 Automated blood basophils/100 leukocytes 0 % 0-10 Blood neutrophils automated count (number/volume) 14.0 10*3 1.8-7.8 Blood lymphocytes automated count (number/volume) 2.1 10*3 1.0-4.0 Blood monocytes automated count (number/volume) 1. 0 10*3 0.0-1.0 Automated eosinophil count 0.1 10*3/uL 0 .0-0.3 Automated blood basophil count (count/volume) 0.0 10*3/uL 0.0-0.1 Comprehensive metabolic panel - 10/18/19 03:41 Serum or plasma sodium measurement (moles/volume) 135 mmol/L 135-145 Serum or plasma potassium measurement (moles/volume) 3.1 mmol/L 3.6-5.0 Serum or plasma chloride measurement (moles/volume) 101 mmol/L 98-107 Carbon dioxide 23 mmol/L 21-32 Serum or plasma anion gap determination (moles/volume) 11 mmol/L 5-14 Serum or plasma urea nitrogen measurement (mass/volume ) 15 mg/dL 7-18 Serum or plasma creatinine measurement (mass/volume) 0.79 mg/dL 0.60-1.30 Serum or plasma urea nitrogen/creatinine mass ratio 19 NRG Serum or plasma creatinine measurement w ith calculation of estimated glomerular filtration rate > NRG Serum or plasma glucose measurement (mass/volume) 167 mg/dL 70-105 Serum or plasma calcium measurement (mass/volume) 8.3 mg/dL 8.5-10.1 Serum or plasma total bilirubin measurement (mass/volu me) 0.2 mg/dL 0.1-1.0 Serum or plasma alkaline phosphatase deanna surement (enzymatic activity/volume) 97 U/L 40-136 Serum or plasma aspartate aminotransfera se measurement (enzymatic activity/volume) 11 U/L 5-34 Serum or plasma alanine aminotransferase measurement (enzymatic activity/volume) 10 U/L 0-55 Serum or plasma protein measurement (mass/volume) 5.8 g/dL 6.4-8.2 Serum or plasma albumin measurement (mass/volume) 2.4 g/dL 3.2-4.5 CALCIUM CORRECTED 9.6 mg/dL 8.5-10.1 Serum or plasma phosphate measurement (m ass/volume) - 10/18/19 03:41 Serum or plasma phosphate measurement (mass/volume) 2.8 mg/dL 2.3-4.7 Magnesium - 10/18/19 03:41 Magnesium 1.5 mg/dL 1.6-2.4 Serum or plasma lithium measurement (mol es/volume) - 10/18/19 03:41 BNP PT 123.4 pg/mL <100.0 Capillary blood glucose measurement by g lucometer (mass/volume) - 10/18/19 11:26 Capillary blood glucose measurement by glucometer (mas s/volume) 186 mg/dL 70-110 Capillary blood glucose measurement by g lucometer (mass/volume) - 10/18/19 16:12 Capillary blood glucose measurement by glucometer (mas s/volume) 219 mg/dL 70-110 Capillary blood glucose measurement by g lucometer (mass/volume) - 10/18/19 20:31 Capillary blood glucose measurement by glucometer (mas s/volume) 249 mg/dL 70-110 Arterial blood gas measurement - 0 03:15 Blood pCO2 40 mm[Hg] 35-45 Blood pO2 68 mm[Hg] 79-93 Arterial blood bicarbonate measurement (moles/volume) 26 mmol/L 23-27 Arterial blood base excess by calculation 1.0 mmol /L -2.5-2.5 Arterial blood oxygen saturation measurement 95 % 94-100 * Inhaled oxygen flow rate 70% NRG Arterial blood pH measurement with patient temperature correction 7.41 7.37-7.43 Arterial blood carbon dioxide, total measurement (mole s/volume) 26.8 mmol/L 21.0-31.0 Body site RIGHT RADIAL NRG Assessment of wrist artery patency prior to arterial p uncture YES-POS NRG Setting of ventilation mode NO NR G Measurement of body temperature 35.5 NRG Whole blood basic metabolic panel - 05/01 03:35 Serum or plasma sodium measurement (moles/volume) 135 mmol/L 135-145 Serum or plasma potassium measurement (moles/volume) 4.2 mmol/L 3.6-5.0 Serum or plasma chloride measurement (moles/volume) 103 mmol/L 98-107 Carbon dioxide 22 mmol/L 21-32 Serum or plasma anion gap determination (moles/volume) 10 mmol/L 5-14 Serum or plasma urea nitrogen measurement (mass/volume ) 13 mg/dL 7-18 Serum or plasma creatinine measurement (mass/volume) 0.81 mg/dL 0.60-1.30 Serum or plasma urea nitrogen/creatinine mass ratio 16 NRG Serum or plasma creatinine measurement w ith calculation of estimated glomerular filtration rate > NRG Serum or plasma glucose measurement (mass/volume) 220 mg/dL 70-105 Serum or plasma calcium measurement (mass/volume) 8.4 mg/dL 8.5-10.1 Serum or plasma phosphate measurement (m ass/volume) - 10/19/19 03:35 Serum or plasma phosphate measurement (mass/volume) 2.4 mg/dL 2.3-4.7 Magnesium - 10/19/19 03:35 Magnesium 1.8 mg/dL 1.6-2.4 Serum or plasma lithium measurement (mol es/volume) - 10/19/19 03:35 BNP PT 36.1 pg/mL <100.0 Vancomycin trough - 10/19/19 07:05 Vancomycin trough 34.7 ug/mL 10.0-20.0 Influenza virus A and B antigen detectio n - 10/19/19 07:58 FLU RESULT NEGATIVE FOR INFLUENZA A AND B ANTIGENS BY IA NRG Capillary blood glucose measurement by g lucometer (mass/volume) - 10/19/19 11:32 Capillary blood glucose measurement by glucometer (mas s/volume) 307 mg/dL 70-110 Capillary blood glucose measurement by g lucometer (mass/volume) - 10/19/19 16:22 Capillary blood glucose measurement by glucometer (mas s/volume) 195 mg/dL 70-110 Vancomycin trough - 10/19/19 18:00 Vancomycin trough 21.3 ug/mL 10.0-20.0 Capillary blood glucose measurement by g lucometer (mass/volume) - 10/19/19 21:43 Capillary blood glucose measurement by glucometer (mas s/volume) 186 mg/dL 70-110 Encounters ACCT No. Visit Date/Time Discharge Status Pt. Type Provider Facility Loc./Unit Complaint [id number] 11/17/2014 09:22:00 11/17/2014 23:59: 59 [facility] Outpatient ALBIN RENAE APRN [id number] 10/28/2014 09:28:00 10/28/2014 23:59: 59 CLS Outpatient COCO BAH DO [id number] 10/28/2014 09:28:00 10/28/2014 23:59: 59 CLS Outpatient MADL HAMMERER TABALBIN [id number] 08/26/2014 14:10:00 08/26/2014 23:59: 59 CLS Outpatient DEANDRE CUEVAS MD [id number] 07/01/2014 15:01:00 07/01/2014 23:59: 59 CLS Outpatient MADL HAMMERER TABALBIN Annabelle [id number] 07/01/2014 15:01:00 07/01/2014 23:59: 59 CLS Outpatient NIURKA DOCOCO Cate [id number] 05/18/2014 11:12:00 05/18/2014 23:59: 59 CLS Outpatient BAH DOCOCO Cate [id number] 04/21/2014 04:04:00 04/21/2014 23:59: 59 CLS Outpatient DEANDRE CUEVAS MD [id number] 03/30/2014 14:37:00 03/30/2014 23:59: 59 CLS Outpatient BAH DOCOCO Cate [id number] 03/01/2014 10:56:00 03/01/2014 23:59: 59 CLS Outpatient MADL ALBIN RIVERA Annabelle [id number] 03/01/2014 10:56:00 03/01/2014 23:59: 59 CLS Outpatient BAH DOCOCO Cate [id number] 01/28/2014 11:10:00 01/28/2014 23:59: 59 CLS Outpatient MADL ALBIN RIVERA Annabelle [id number] 01/14/2014 14:47:00 01/14/2014 23:59: 59 CLS Outpatient BAH DOCOCO [id number] 12/24/2013 10:23:00 12/24/2013 23:59: 59 CLS Outpatient BAH DOSABRINAJus Esposito [id number] 12/03/2013 10:48:00 12/03/2013 23:59: 59 CLS Outpatient MALIK SANTIAGO APRN [id number] 04/30/2012 10:35:00 04/30/2012 23:59:5 9 CLS Outpatient [id number] 04/16/2012 17:02:00 04/16/2012 23:59: 59 CLS Outpatient AHSAN CHANG APRN [id number] 10/12/2019 11:16:00 13:13:00 DIS Outpatient FAITH MALIN, DEANDRE [place] [facility] 4TH B/L PNEUMONIA HYPONAT REMIA WEAKNESS [id number] 09/07/2019 13:50:00 12:35:00 DIS Inpatient CARLITOS SINGH DARRELL [facility] 4TH CHF EXACERBATION UTI [id number] 07/27/2019 12:03:00 15:45:00 DIS Outpatient TAMANNA CORONADO MD [facility] ENDO HX POLYPS/FAMILY HX COL ON CA/REFLUX/ABD PAIN [id number] 07/23/2019 14:40:00 16:00:00 DIS Outpatient TAMANNA CORONADO MD [facility] PREOP COLONOSCOPY/EGD [id number] 07/14/2019 15:04:00 13:24:00 DIS Inpatient DARRELL URBINA DO [facility] 4TH SEVERE SEPSIS UTI [id number] 2019 11:19:00 14:40:00 DIS Emergency ROVENSTFACUNDO BERNARDO DO [facility] ER FS FALL; LETHARGY [id number] 03/03/2019 10:37:00 13:59:00 DIS Emergency AHSAN BAEZ DO [facility] ER FS STROKE-LIKE SYMPTOMS [id number] 01/26/2019 16:27:00 23:59:59 CLS Outpatient TOBY SMALLS APRN [facility] RAD FS R06.2 R05 [id number] 12/26/2018 14:10:00 23:59:59 CLS Preadmit NE MLAIN, MANISHA Daniel [facility] WOUNDCARE [id number] 12/21/2018 20:59:00 14:15:00 DIS Inpatient CARLITOS SINGH DARRELL V ia [facility] ICU CELLULITIS L FOOT, SEPS IS, HYPERGLYCEMIA [id number] 12/18/2018 12:44:00 14:01:00 DIS Emergency OCTAVIANO MALIN, FEMI Saldana [facility] ER FS LT TOE LAC [id number] 12/11/2018 12:14:00 23:59:59 CLS Preadmit MOOM LAWRENCE [facility] CARD HTN,HYPERLIPIDEMIA,DIZZINESS [id number] 10/26/2018 23:02:00 019 08:00:00 DIS Inpatient SUHAS ALLRED MD [facility] 4TH SYNCOPE [id number] 09/22/2018 17:40:00 15:00:00 DIS Inpatient SUHAS ALLRED MD [facility] 4TH UTI,SEPSIS,GASTORENTRIT IS,COLITIS [id number] 11/07/2017 08:21:00 018 14:40:00 DIS Outpatient Alan BAILEY MD [facility] CATH ABN STRESS TEST [id number] 11/05/2017 12:43:00 018 23:59:59 CLS Outpatient Alan BAILEY MD [facility] CARD R07.9 CHEST PAIN [id number] 10/31/2017 07:14:00 018 23:59:59 CLS Outpatient Alan BAILEY MD [facility] CARD R07.9 CHEST PAIN [id number] 07/11/2017 08:00:00 017 23:59:59 CLS Preadmit Alan BAILEY MD [facility] CARD CHF [id number] 07/01/2017 10:30:00 017 23:59:59 CLS Outpatient Alan BAILEY MD [facility] CARD CHF [id number] 06/25/2017 18:32:00 017 12:15:00 DIS Inpatient HONEY SEPULVEDA MD [facility] 4TH HEART FAILURE,UNCONTROL LED HYPERGLYCEMIA,AMS [id number] 04/18/2017 17:04:00 017 19:45:00 DIS Emergency EDWIN ROSENBERG PLANT CLERK [facility] ER LEFT LEG INJ [id number] 12/09/2015 09:53:00 016 15:00:00 DIS Outpatient MANISHA OLIVIA MD [facility] WOUNDCARE [id number] 07/29/2015 08:42:00 015 23:59:59 CLS Outpatient ALBIN RENAE PLANT CLERK [facility] RAD PAIN IN LEFT LOWER LEG [id number] 03/23/2015 12:26:00 015 23:59:59 CLS Outpatient BERT JASON APRN [facility] RAD MASTIDONA [id number] 03/01/2015 16:06:00 015 20:24:00 DIS Emergency LEANN CONTRERAS [facility] ER ABD/BACK PAIN;HEADACHE [id number] 11/19/2014 12:44:00 015 23:59:59 CLS Outpatient OC ALBIN L PLANT CLERK [facility] RAD ABDOMINAL PAIN [id number] 07/23/2014 15:00:00 014 11:50:00 DIS Inpatient DEANDRE CUEVAS MD Via [facility] 4TH UNCONTROLLED DIABETES,C HRONIC HYPONATREMIA [id number] 06/23/2014 21:06:00 014 00:16:00 DIS Emergency LEANN CONTRERAS [facility] ER HEADACHE [id number] 03/25/2014 02:45:00 014 14:52:00 DIS Inpatient DEANDRE CUEVAS MD [facility] CSD PYELONEPHRISTIS,UTI,RAINE ST PAIN [id number] 10/01/2013 12:41:00 014 15:11:00 DIS Emergency HONEY SEPULVEDA MD [facility] ER FALL/BACK PAIN [id number] 10/17/2019 15:00:[address] Inpatient DARRELL URBINA DO Via [facility] ICU PNEUMONIA [id number] 10/28/2014 11:16:00 Document Registration [id number] 02/20/2012 23:24:00 Document Registration [id number] 08/27/2011 07:33:00 Document Registration [id number] 01/05/2011 15:15:00 Document Registration [id number] 10/04/2010 10:07:00 Document Registration [id number] 09/30/2019 10:20:00 09/30/2019 23:59:5 [facility] TOBY SMALLS [facility] [id number] 09/30/2019 10:20:00 Document Registration [id number] 07/08/2019 10:15:00 Document Registration [id number] 04/22/2019 09:00:00 Document Registration [id number] 04/16/2019 14:20:00 Document Registration [id number] 12/11/2018 16:00:00 Document Registration [id number] 11/17/2018 09:15:00 Document Registration [id number] 11/13/2018 10:00:00 Document Registration
[2019-10-21] MEDS: RT-ALBUTEROL/IPRATROPIUM 3 ML (DUONEB) VIAL INH SCH ×6 (02:51→22:41)
[2019-10-21 04:38] LABS: BASOPHILS % (AUTO) 0 % (0-10); EOSINOPHILS # (AUTO) 0.3 10^3/uL (0.0-0.3); EOSINOPHILS % (AUTO) 2 % (0-10); HEMATOCRIT 29 % (35-52); LYMPHOCYTES # (AUTO) 1.8 X 10^3 (1.0-4.0); LYMPHOCYTES % (AUTO) 10 % (12-44); MEAN CORPUSCULAR HEMOGLOBIN 27 PG (25-34); MEAN CORPUSCULAR HGB CONC 31 G/DL (32-36); MEAN CORPUSCULAR VOLUME 88 FL (80-99); MEAN PLATELET VOLUME 10.7 FL (7.4-10.4); MONOCYTES # (AUTO) 0.8 X 10^3 (0.0-1.0); MONOCYTES % (AUTO) 5 % (0-12); NEUTROPHILS # (AUTO) 14.2 X 10^3 (1.8-7.8); NEUTROPHILS % (AUTO) 83 % (42-75); PLATELET COUNT 352 10^3/uL (130-400); RED CELL DISTRIBUTION WIDTH 16.2 % (10.0-14.5); WHITE BLOOD COUNT 17.1 10^3/uL (4.3-11.0)
[2019-10-21 04:41] LABS: BUN/CREATININE RATIO 14; CALCIUM 9.2 MG/DL (8.5-10.1); CARBON DIOXIDE 26 MMOL/L (21-32); CHLORIDE 101 MMOL/L (98-107); CREATININE SERUM 0.73 MG/DL (0.60-1.30); GFR ESTIMATED > 60; GLUCOSE 134 MG/DL (70-105); MAGNESIUM 1.8 MG/DL (1.6-2.4); PHOSPHORUS 3.5 MG/DL (2.3-4.7); POTASSIUM 4.5 MMOL/L (3.6-5.0); SODIUM 138 MMOL/L (135-145)
[2019-10-21] MEDS: POTASSIUM CL 10MEQ/50ML IVPB 50 ML IV SCH (05:31)
[2019-10-21] MEDS: MAGNESIUM 1 GM/100 ML IVPB 100 ML IV SCH (05:31)
[2019-10-21] MEDS: KCL 20 MEQ TAB (K-DUR) PO SCH (05:32)
[2019-10-21] MEDS: MEROPENEM 1,000 MG/SWFI 20 ML IV PUSH IV SCH ×6 (06:35→20:51)
[2019-10-21] MEDS: PANTOPRAZOLE 40 MG (PROTONIX) TAB PO SCH (06:35)
[2019-10-21 07:03] LABS: ABG BASE EXCESS 6.3 MMOL/L (-2.5-2.5); ABG OXYGEN SATURATION 82 % (94-100); ABG PCO2 47 MMHG (35-45); ABG PH 7.43 (7.37-7.43); ABG PO2 44 MMHG (79-93); ABG TCO2 32.3 MMOL/L (21.0-31.0)
[2019-10-21 07:04] LABS: ALLENS TEST YES-POS
[2019-10-21 07:05] LABS: INSPIRED O2 60%; PATIENT TEMP 36.4; VENTILATOR NO
[2019-10-21] MEDS: inSUlin ASPART (NovoLOG) 1 UNIT/0.01 ML (CHARGE PER UNIT) SQ SCH ×2 (07:39→12:06)
[2019-10-21] MEDS ORDERED: TROUGH ORDER-PHARMACY XX NR (08:00)
--- NOTE | 2019-10-21 08:02 | Diagnostic Imaging Report ---
INDICATION: Pneumonia COMPARISON: 10/20/2019 FINDINGS: Single view of the chest demonstrates unchanged bilateral pulmonary infiltrates. There is no pneumothorax or large effusion. Heart is prominent. Osseous structures are stable. IMPRESSION: Unchanged bilateral pulmonary infiltrates. Dictated by: Dictated on workstation # [id number]
--- NOTE | 2019-10-21 08:28 | Physical Therapy Progress Note ---
Therapy Progress Note Patient is currently on vapotherm. Nurse recommends not to see patient until workup has been done for coronavirus. KELLY DEVRIES PT Oct 21, 2019 08:28
--- NOTE | 2019-10-21 09:33 | Occ Therapy Progress Note ---
Therapy Progress Note Continuing to monitor pt. Will assess when cleared by physicians. 0850 RAJNI BROWN OT Oct 21, 2019 09:32
[2019-10-21] MEDS: UMECLIDINIUM BROMIDE (INCRUSE ELLIPTA) 7'S IH SCH (09:49)
[2019-10-21] MEDS: ADVAIR HFA 115/21 MCG INHALER 8 GM IH SCH ×2 (09:50→22:41)
--- NOTE | 2019-10-21 10:00 | NUR ---
1000 spoke to pt about the possibility of being put on vent and she is willing as long as it is not intermission coordinator. pt called her sons at this point to let them know what we were planning on doing as far as putting her on the ventilator. 1035- dr gomez here to intubate 1037- 2mg versed given 1040- 50 of prop given 1042- 50 more of prop given followed by 3 mg of versed and [address] gomez's orders 1043 - size 8 et tube placed at 22 at the lip. vent initiated with the following settings AC RATE OF 24 AND VT 400 PEEP OF 10 AND FIO2 OF60% 1050 OG PLACED 1044 RESTRAINTS ORDERED AND PLACED 1044 PROPOFOL DRIP STARTED 1050 50 more of arya given and central line placed by dr gomez.
[2019-10-21] MEDS ORDERED: NS IV 1000 ML 1,000 ML ONE (10:09)
[2019-10-21] MEDS ORDERED: PROPOFOL DRIP (ICU) 100 ML IV ONE (10:10)
--- NOTE | 2019-10-21 10:22 | Pulmonary Progress Note ---
Subjective Time Seen by a Provider: 10:17 Sepsis Event Evaluation Height, Weight, BMI Height: 5'9.00" Weight: 253lbs. 1.0oz. 114.054397ai; 38.95 BMI Method:Stated Exam Exam Vital Signs Date Time Temp Pulse Resp B/P (MAP) Pulse Ox O2 Delivery O2 Flow Rate FiO2 10/21/19 09:52 91 40.00 70 10/21/19 06:00 98 35 121/77 (92) 94 Vapotherm 40.00 60.00 10/21/19 05:00 101 9 166/69 (101) 90 Vapotherm 40.00 60.00 10/21/19 04:00 Vapotherm 40.00 60 10/21/19 04:00 95 13 112/70 (84) 93 Vapotherm 40.00 60.00 10/21/19 03:01 36.1 Vapotherm 40.00 60.00 10/21/19 03:00 100 14 159/64 (95) 92 Vapotherm 40.00 60.00 10/21/19 02:51 91 40.00 60 10/21/19 02:00 98 20 110/61 (77) 93 Vapotherm 40.00 60.00 10/21/19 01:00 93 23 105/57 (73) 93 Vapotherm 40.00 60.00 10/21/19 01:00 93 10/21/19 00:00 101 24 127/80 (96) 96 Vapotherm 40.00 60.00 10/21/19 00:00 95 Vapotherm 40.00 60 10/20/19 23:00 99 25 110/70 (83) 94 Vapotherm 40.00 60.00 10/20/19 22:04 90 40.00 60 10/20/19 22:04 101 17 155/86 (109) 91 Vapotherm 40.00 60.00 10/20/19 21:00 97 21 123/66 (85) 92 Vapotherm 40.00 60.00 10/20/19 20:00 94 Vapotherm 40.00 60 10/20/19 20:00 98 33 114/56 (75) 94 Vapotherm 40.00 60.00 10/20/19 19:45 36.2 10/20/19 19:00 99 27 130/78 (95) 94 Vapotherm 40.00 60.00 10/20/19 19:00 99 10/20/19 18:50 95 40.00 60 10/20/19 18:00 107 32 153/104 (120) 91 Vapotherm 40.00 60.00 10/20/19 17:00 97 26 145/95 (112) 93 Vapotherm 40.00 60.00 10/20/19 16:00 99 26 140/73 (95) 94 Vapotherm 40.00 60.00 10/20/19 16:00 92 Vapotherm 40.00 60 10/20/19 15:55 92 Vapotherm 40.00 60 10/20/19 15:35 Vapotherm 40.00 60.00 10/20/19 15:00 98 9 140/78 (98) 92 Vapotherm 35.00 45.00 10/20/19 14:00 93 23 119/68 (85) 94 Vapotherm 35.00 45.00 10/20/19 13:00 95 10/20/19 13:00 94 15 137/63 (87) 93 Vapotherm 35.00 45.00 10/20/19 12:00 92 Vapotherm 35.00 55 10/20/19 12:00 101 25 140/69 (92) 93 Vapotherm 35.00 45.00 10/20/19 11:37 Vapotherm 35.00 45.00 10/20/19 11:00 102 25 162/86 (111) 97 Vapotherm 30.00 55.00 I & O 10/21/19 07:00 Intake Total 3582.5 ml Output Total 7250 ml Balance -3667.5 ml Height & Weight Height: 5'9.00" Weight: 253lbs. 1.0oz. 114.519762oh; 38.95 BMI Method:Stated General Appearance: No Apparent Distress, WD/WN, Chronically ill HEENT: PERRL/EOMI; No Pale Conjunctivae (L), No Pale Conjunctivae (R), No Scleral Icterus (L), No Scleral Icterus (R) Neck: Full Range of Motion, Normal Inspection, Non Tender Respiratory: Accessory Muscle Use, Decreased Breath Sounds, Wheezing Cardiovascular: Regular Rate, Rhythm, No Edema, No Gallop, No JVD, No Murmur, Normal Peripheral Pulses Capillary Refill: Less Than 3 Seconds Gastrointestinal: non tender, soft Extremity: Normal Capillary Refill, Non Tender, No Calf Tenderness, Pedal Edema Neurologic/Psychiatric: Alert, Oriented x3, No Motor/Sensory Deficits, Normal Mood/Affect Skin: Normal Color, Warm/Dry Lymphatic: No Adenopathy Results Lab Laboratory Tests 10/20/19 03:26 10/21/19 04:03 Assessment/Plan Assessment/Plan Acute worsening respiratory failure on chronic with ARDS -Pt is requiring more oxygen 70% Vapotherm and has increased WOB. Continue vanco and Merrem cultures are negative. Influenza is negative. RVP is Negative . -COVID 19 is negative. -BNP is 36 -DuoNebs q 4hr -Monitor close -Pt and family are ok with intubation and all questions were answered. Pneumonia with sepsis and hypoxia - not severe sepsis -Continue Vanco and Merrem hx of ESBL -Await cultures Anemia -Monitor hx of CAD GI/DVT ppx 0 -She is on Eliquis for hx of Afib and hx of PE -Protonix DM -Diabetic Diet -insulin Stage 1 decubitus ulcer in diabetic patient STEFANIE STARKS DO Oct 21, 2019 10:22
--- NOTE | 2019-10-21 10:45 | Pulmonary Procedures ---
Pulmonary Procedures Date of Procedure Date of Service: Oct 21, 2019 Reason for Intubation: Acute resp failure Time of Intubation: 10:44 Intubation Method: orotracheal Tube Size: 8 Medications: Fentanyl, Propofol, Versed Positive End Tide CO2: Yes Breath Sounds after Intubation: bilateral-equal Intubation Complications: no complications Post Intubation Xray: Yes STEFANIE STARKS DO Oct 21, 2019 10:45
[2019-10-21] MEDS: MELOXICAM 7.5 MG (MOBIC) TABLET PO SCH (11:22)
[2019-10-21] MEDS: LINAGLIPTIN (TRADJENTA) 5 MG TABLET PO SCH (11:23)
[2019-10-21] MEDS: PREGABALIN 150 MG (LYRICA) CAPSULE PO SCH ×3 (11:23→20:50)
[2019-10-21] MEDS: LOSARTAN 25 MG (COZAAR) TAB PO SCH (11:23)
[2019-10-21] MEDS: CYCLOBENZAPRINE 10 MG (FLEXERIL) TAB PO SCH ×3 (11:23→20:50)
[2019-10-21] MEDS: APIXABAN 5 MG (ELIQUIS) TABLET PO SCH ×2 (11:23→20:50)
[2019-10-21] MEDS: NYSTATIN CREAM (MYCOSTATIN) 30 GM TUBE TP SCH ×3 (11:31→20:51)
[2019-10-21] MEDS: PROPOFOL DRIP (ICU) 100 ML IV SCH ×2 (11:37→21:35)
--- NOTE | 2019-10-21 11:40 | Progress Note - Hospitalist ---
CHEPE RIVERA,MED STUDENT 10/21/19 1140: Subjective HPI/CC On Admission Date Seen by Provider: Oct 21, 2019 Time Seen by Provider: 08:45 CC: Recurrent PNA HPI: This is a 54yoWF clinic patient of [facility] known to me from multiple hospital stays most recent DC Saturday for PNA after she refused NH placement and went home and just sat in her recliner and had fecal and urinary incontinence because she was too weak to get up. She has since experienced periarea pain from chafing and yeast involvement and hypoxia and elevated wbc from recurrent PNA. DM will be managed along with other home meds along with Dr Parmar consultation for elevated BNP. Subjective/Events-last exam Pt. now on ventilator. Repeat CXR shows mildy worsened diffuse opacities and small pleural effusions bilaterally. COVID-19 is negative. Blood cultures negative. Objective Exam Vital Signs Vital Signs Date Time Temp Pulse Resp B/P (MAP) Pulse Ox O2 Delivery O2 Flow Rate FiO2 10/21/19 13:00 91 22 111/74 (86) 100 Mechanical Ventilator 70.00 10/21/19 11:49 100 10/21/19 03:01 36.1 Capillary Refill : Less Than 3 Seconds General Appearance: No Apparent Distress, WD/WN, Chronically ill, Obese Cardiovascular: Regular Rate, Rhythm, No Murmur Neurologic/Psychiatric: No Alert; Other (Sedated on vent) Skin: Normal Color Results/Procedures Lab Laboratory Tests 10/21/19 04:03 Patient resulted labs reviewed. Assessment/Plan Assessment and Plan Assess & Plan/Chief Complaint Assessment: Ventilator-dependent respiratory failure -failed Vapotherm, now on vent PNA with sepsis UTI Hypoxia Leukocytosis Anemia Hx of PAF Hx of PE HTN Diabetes mellitus GERD Anxiety Depression Morbid Obesity Hx of UTI ESBL Plan: Sedated on vent Respiratory viral panel negative COVID-19 negative Blood cultures negative BNP returned to normal Continue meropenem and vancomycin Continue home DM meds Clinical Quality Measures DVT/VTE Risk/Contraindication: Risk Factor Score Per Nursin RFS Level Per Nursing on Admit: 4+=Very High KENDRA URBINA DO 10/21/19 1439: Subjective Subjective/Events-last exam Pt is still SOB Chest x ray appears to be a bit worse Antibiotics maintained CoronaVirus ruled out Dr. Bowen intubated her shortly after rounds Review of Systems General: Fatigue Pulmonary: Dyspnea, Cough Objective Exam General Appearance: Chronically ill, Moderate Distress, Obese Respiratory: Crackles, Rhonci, Wheezing Cardiovascular: Regular Rate, Rhythm, No Edema, No Gallop, No JVD, No Murmur, Normal Peripheral Pulses Neurologic/Psychiatric: Alert Assessment/Plan Assessment and Plan Assess & Plan/Chief Complaint Intubation Diagnosis/Problems Diagnosis/Problems (1) Ventilator dependence (2) Pneumonia Status: Acute (3) Urinary tract infection Status: Resolved Supervisory-Addendum Brief Verification & Attestation Participated in pt care: history, MDM, physical Personally performed: exam, history, MDM, supervision of care Care discussed with: Medical Student Procedures: n/a Results interpretation: Verified all documentation Verification and Attestation of Medical Student E/M Service A medical student performed and documented this service in my presence. I reviewed and verified all information documented by the medical student and made modifications to such information, when appropriate. I personally performed the physical exam and medical decision making. Kendra Urbina, Oct 21, 2019,20:22 CHEPE RIVERA,MED STUDENT Oct 21, 2019 11:40 KENDRA URBINA DO Oct 21, 2019 14:39
--- NOTE | 2019-10-21 11:45 | Pulmonary Procedures ---
Pulmonary Procedures Date of Procedure Date of Service: Oct 21, 2019 Lumen: triple (US guided ) Central Line Procedure: betadine prep, sterile drapes applied, sterile dressing applied Position: internal jugular (R) Anesthesia: local Complications: none Post Position: sutured, good blood return, position confirmed w/ CXR STEFANIE STARKS DO Oct 21, 2019 11:45
[2019-10-21] MEDS: SENNA W/DOCUSATE (SENOKOT S) TABLET PO SCH ×2 (12:07→20:50)
[2019-10-21] MEDS: OXYBUTYNIN (DITROPAN) 5 MG TAB PO SCH ×2 (12:07→20:50)
[2019-10-21] MEDS: LACTATED RINGERS 1,000 ML IV SCH ×2 (12:08→20:50)
--- NOTE | 2019-10-21 12:14 | Diagnostic Imaging Report ---
CHEST 1 VIEW, AP/PA ONLY INDICATION: Intubation. COMPARISON: Earlier same day at 2:45 AM FINDINGS: ET tube has tip 5 cm above the arvin. Enteric tube courses into the stomach and off the [id number]. Right IJ central venous catheter has tip in the upper SVC. Diffuse pulmonary opacities have mildly worsened. Small bilateral pleural effusions are present. No pneumothorax. Enlargement of cardiac silhouette is unchanged. IMPRESSION: 1. Well-positioned support devices. 2. No pneumothorax. 3. Worsening of pulmonary opacities may be on the basis of edema, multifocal infection and/or ARDS. Dictated by: Dictated on workstation # [id number]
[2019-10-21] MEDS ORDERED: MIDAZOLAM 5 MG/5 ML (VERSED) VIAL IJ ONE (12:58)
[2019-10-21] MEDS ORDERED: ROCURONIUM 10 MG/ML 5 ML SYRINGE IV ONE (12:58)
--- NOTE | 2019-10-21 14:43 | NUR ---
"Received dietary consult regarding pt's vent status. Est. kcal needs: 8033-5430 kcal | 15-18 kcal/kg Est. Pro needs: 102-129 g Pro | 0.8-1.0 g Pro/kg If pt is to remain NPO for more than 3d, would recommend the following TF: Glucerna 1.5 @ goal rate of 55ml/hr. Begin at 10ml/hr and increase by 10ml q6h as tolerated. Monitor gastric residuals for tolerance. At goal rate, provides 1980 kcal (15 kcal/kg); 109 g Pro (0.8 g Pro/kg); and 1002ml free water. Flush with 75ml H2O q4h for hydration status. With flushes, provides 1452ml free water. Will continue to follow and reassess as pt needs, intake, and status change. Blaine Diaz, MS, RD, LD"
--- NOTE | 2019-10-21 15:36 | Cardiology Progress Note ---
Subjective Date Seen by Provider: Oct 21, 2019 Time Seen by Provider: 15:35 Subjective/Events-last exam Patient is sedated and intubated Review of Systems General: Other (unable to provide review of systems) Objective-Cardiology Exam Last Set of Vital Signs Vital Signs 10/21/19 10/21/19 10/21/19 10/21/19 03:01 13:00 14:14 15:21 Temp 36.1 Pulse 89 Resp 24 B/P (MAP) 111/74 (86) Pulse Ox 96 O2 Delivery Mechanical Ventilator O2 Flow Rate 50.00 FiO2 50 Capillary Refill : Less Than 3 Seconds I&O Intake and Output 10/21/19 00:00 Intake Total 3402.5 ml Output Total 6000 ml Balance -2597.5 ml Intake Oral 2600 ml IV Total 802.5 ml Output Urine Total 6000 ml General: Other (sedated and intubated) HEENT: Atraumatic Neck: Supple, No Thyromegaly Lungs: Normal Air Movement, Other (Bilateral wheezing, rhonchi) Heart: Regular Rate, Normal S1, Normal S2, No Murmurs Abdomen: Normal Bowel Sounds, Soft, No Tenderness, No Hepatosplenomegaly, No Masses Extremities: No Clubbing, No Cyanosis, Normal Pulses, No Tenderness/Swelling, Other (Trace edema) Skin: No Rashes, No Breakdown, No Significant Lesion Neuro: Other (sedated and intubated) Psych/Mental Status: Other (sedated and intubated) Results Lab Laboratory Tests 10/21/19 04:03 A/P-Cardiology Admission Diagnosis Pneumonia Acute respiratory failure Coronary artery disease Hypertension Assessment/Plan Pneumonia, acute respiratory failure, possible ARDS, progressed into ventilatory dependent respiratory failure, managed by Dr. Bowen History of COPD, managed by Dr. Bowen Mild elevation of BNP returned to normal, had echocardiogram done in August 2019 reported ejection fraction 50-55 percent, grade 1 diastolic dysfunction, pulmonary artery pressure of 35 mmHg. Continue to monitor Coronary artery disease, reported history of angioplasty to a small artery in 2001, most recent cardiac catheterization done October 2017 revealed nonobstructive disease, continue to monitor. History of transient ischemic attack, was hospitalized in June 2017, no source of embolization was noted, fully recovered Paroxysmal atrial fibrillation, had a reported history of atrial fibrillation in August 2019, at that time she was seen by Dr. Hamm, maintained on Eliquis History of pulmonary embolism, ,maintained on Eliquis Hypertension, labile blood pressure, had history of hypotension and dizziness, continue to monitor blood pressure Hyperlipidemia, continue to monitor COPD, using oxygen at home at night. Followed by Dr. Bowen BMI is 40, discussed weight loss and exercise Diabetes mellitus, followed and managed by primary care physician Peripheral neuropathy, generalized body ache. Clinical Quality Measures DVT/VTE Risk/Contraindication: Risk Factor Score Per Nursin RFS Level Per Nursing on Admit: 4+=Very High LATRICIA MIRANDA MD Oct 21, 2019 3:36 pm
[2019-10-21] MEDS: DexMEDEtomidine 250 ML DRIP 250 ML IV SCH ×2 (15:51→23:51)
[2019-10-21 17:14] LABS: ABG BASE EXCESS 7.4 MMOL/L (-2.5-2.5); ABG OXYGEN SATURATION 91 % (94-100); ABG PCO2 43 MMHG (35-45); ABG PH 7.48 (7.37-7.43); ABG PO2 59 MMHG (79-93); ABG TCO2 32.7 MMOL/L (21.0-31.0)
[2019-10-21 17:19] LABS: ALLENS TEST YES-POS; INSPIRED O2 50L; PATIENT TEMP 36.3; VENTILATOR YES
[2019-10-21] MEDS ORDERED: inSUlin ASPART (NovoLOG) 1 UNIT/0.01 ML (CHARGE PER UNIT) SC PRN (18:00)
[2019-10-21] MEDS ORDERED: RT-ADVAIR HFA 115/21 MCG PER PUFF IH ONE (18:31)
[2019-10-21] MEDS: AMITRIPTYLINE 25 MG (ELAVIL) TAB PO SCH (20:50)
[2019-10-21] MEDS: ROSUVASTATIN 20 MG (CRESTOR) TABLET PO SCH (20:50)
--- NOTE | 2019-10-21 23:29 | NUR ---
INFORMED EICU PTS BLOOD SUGAR WAS 73 AND RECEIVED LEVEMIR 80UNITS AND NOVOLOG 5O UNITS. WILL AWAIT ORDERS.
[2019-10-22] VITALS (20 sets, daily range): BP systolic 125–166; BP diastolic 64–88
[2019-10-22] MEDS: RT-ALBUTEROL/IPRATROPIUM 3 ML (DUONEB) VIAL INH SCH ×4 (02:17→14:57)
[2019-10-22 03:07] LABS: ABG BASE EXCESS 7.5 MMOL/L (-2.5-2.5); ABG OXYGEN SATURATION 93 % (94-100); ABG PCO2 37 MMHG (35-45); ABG PH 7.53 (7.37-7.43); ABG PO2 58 MMHG (79-93); ABG TCO2 31.9 MMOL/L (21.0-31.0); BASOPHILS % (AUTO) 0 % (0-10); EOSINOPHILS # (AUTO) 0.2 10^3/uL (0.0-0.3); EOSINOPHILS % (AUTO) 2 % (0-10); HEMATOCRIT 29 % (35-52); HEMOGLOBIN 9.3 G/DL (11.5-16.0); LYMPHOCYTES # (AUTO) 2.2 X 10^3 (1.0-4.0); LYMPHOCYTES % (AUTO) 20 % (12-44); MEAN CORPUSCULAR HEMOGLOBIN 28 PG (25-34); MEAN CORPUSCULAR HGB CONC 32 G/DL (32-36); MEAN CORPUSCULAR VOLUME 87 FL (80-99); MEAN PLATELET VOLUME 10.4 FL (7.4-10.4); MONOCYTES # (AUTO) 0.6 X 10^3 (0.0-1.0); MONOCYTES % (AUTO) 6 % (0-12); NEUTROPHILS # (AUTO) 7.9 X 10^3 (1.8-7.8); NEUTROPHILS % (AUTO) 73 % (42-75); PLATELET COUNT 359 10^3/uL (130-400); RED CELL DISTRIBUTION WIDTH 16.2 % (10.0-14.5); WHITE BLOOD COUNT 10.9 10^3/uL (4.3-11.0)
[2019-10-22] MEDS: PROPOFOL DRIP (ICU) 100 ML IV SCH ×5 (03:07→16:40)
[2019-10-22 03:10] LABS: ALLENS TEST POS; INSPIRED O2 60%; PATIENT TEMP 36.7; VENTILATOR YES
[2019-10-22 04:03] LABS: BUN/CREATININE RATIO 16; CALCIUM 9.5 MG/DL (8.5-10.1); CARBON DIOXIDE 28 MMOL/L (21-32); CHLORIDE 102 MMOL/L (98-107); CREATININE SERUM 0.74 MG/DL (0.60-1.30); GFR ESTIMATED > 60; GLUCOSE 65 MG/DL (70-105); MAGNESIUM 1.9 MG/DL (1.6-2.4); POTASSIUM 4.3 MMOL/L (3.6-5.0); SODIUM 141 MMOL/L (135-145)
[2019-10-22] MEDS ORDERED: DEXTROSE 50% 50 ML (IMS) SYR IV ONE (05:15)
[2019-10-22] MEDS: D5 LR IV SOLUTION 1,000 ML IV SCH ×2 (05:23→13:54)
--- NOTE | 2019-10-22 05:25 | Diagnostic Imaging Report ---
Indication: Shortness of breath Portable chest 3:57 AM ET tube projects over the trachea. There is an NG tube that enters the stomach. There are diffuse alveolar infiltrates. There is no appreciable effusion or pneumothorax. IMPRESSION: Severe diffuse pulmonary infiltrates. No appreciable change from the previous day. Dictated by: Dictated on workstation # [id number]
[2019-10-22] MEDS: POTASSIUM CL 10MEQ/50ML IVPB 50 ML IV SCH (06:29)
[2019-10-22] MEDS: MAGNESIUM 1 GM/100 ML IVPB 100 ML IV SCH (06:29)
[2019-10-22] MEDS: KCL 20 MEQ TAB (K-DUR) PO SCH (06:29)
[2019-10-22] MEDS: MEROPENEM 1,000 MG/SWFI 20 ML IV PUSH IV SCH ×4 (06:36→14:30)
[2019-10-22] MEDS: PANTOPRAZOLE 40 MG (PROTONIX) TAB PO SCH (06:36)
--- NOTE | 2019-10-22 06:36 | Pulmonary Progress Note ---
Subjective Time Seen by a Provider: 06:35 Sepsis Event Evaluation Height, Weight, BMI Height: 5'9.00" Weight: 253lbs. 1.0oz. 114.473613zs; 38.95 BMI Method:Stated Exam Exam Vital Signs Date Time Temp Pulse Resp B/P (MAP) Pulse Ox O2 Delivery O2 Flow Rate FiO2 10/22/19 06:00 84 21 138/71 (93) 95 Mechanical Ventilator 80.00 10/22/19 05:00 79 15 135/80 (98) 96 Mechanical Ventilator 80.00 10/22/19 04:00 Mechanical Ventilator 80 10/22/19 04:00 66 24 147/79 (101) 94 Mechanical Ventilator 80.00 10/22/19 03:54 Mechanical Ventilator 80.00 10/22/19 03:33 Mechanical Ventilator 70.00 10/22/19 03:21 Mechanical Ventilator 60.00 10/22/19 03:08 36.8 Mechanical Ventilator 50.00 10/22/19 03:07 64 147/80 10/22/19 03:00 64 23 136/74 (94) 90 Mechanical Ventilator 40.00 10/22/19 02:20 Mechanical Ventilator 40.00 10/22/19 02:17 94 40 10/22/19 02:17 64 24 92 40 10/22/19 02:00 65 24 147/77 (100) 94 Mechanical Ventilator 50.00 10/22/19 01:00 65 24 146/78 (100) 94 Mechanical Ventilator 50.00 10/22/19 01:00 65 10/22/19 00:52 36.3 Mechanical Ventilator 50.00 10/22/19 00:00 64 24 139/79 (99) 97 Mechanical Ventilator 60.00 10/22/19 00:00 Mechanical Ventilator 60 10/21/19 23:58 Mechanical Ventilator 60.00 10/21/19 23:51 66 143/77 10/21/19 23:50 92 Mechanical Ventilator 50.00 10/21/19 23:00 Mechanical Ventilator 60.00 10/21/19 23:00 67 24 144/81 (102) 93 Mechanical Ventilator 60.00 10/21/19 22:41 66 24 94 40 10/21/19 22:41 94 70 10/21/19 22:34 Mechanical Ventilator 70.00 10/21/19 22:08 Mechanical Ventilator 80.00 10/21/19 22:00 68 23 140/77 (98) 97 Mechanical Ventilator 90.00 10/21/19 21:40 Mechanical Ventilator 90.00 10/21/19 21:35 70 112/67 10/21/19 21:15 Mechanical Ventilator 100.00 10/21/19 21:00 63 24 101/62 (75) 94 Mechanical Ventilator 50.00 10/21/19 20:00 36.4 10/21/19 20:00 Mechanical Ventilator 50 10/21/19 20:00 64 24 136/74 (94) 94 Mechanical Ventilator 50.00 10/21/19 19:04 93 Mechanical Ventilator 40 10/21/19 19:00 61 24 128/71 (90) 94 Mechanical Ventilator 50.00 10/21/19 19:00 63 10/21/19 18:56 62 24 94 40 10/21/19 18:56 94 40 10/21/19 18:00 64 23 125/75 (92) 95 Mechanical Ventilator 50.00 10/21/19 17:00 69 24 116/66 (83) 95 Mechanical Ventilator 50.00 10/21/19 16:00 75 26 103/56 (72) 94 Mechanical Ventilator 50.00 10/21/19 16:00 96 Mechanical Ventilator 50 10/21/19 16:00 36.6 10/21/19 15:51 74 109/65 10/21/19 15:21 89 24 96 50 10/21/19 15:00 88 25 123/71 (88) 95 Mechanical Ventilator 50.00 10/21/19 14:14 Mechanical Ventilator 50.00 10/21/19 14:00 90 16 115/77 (90) 96 Mechanical Ventilator 70.00 10/21/19 13:56 Mechanical Ventilator 60.00 10/21/19 13:34 86 24 94 60 10/21/19 13:00 91 22 111/74 (86) 100 Mechanical Ventilator 70.00 10/21/19 12:50 97 10/21/19 12:00 96 24 118/72 (87) 97 Mechanical Ventilator 70.00 10/21/19 12:00 96 Mechanical Ventilator 50 10/21/19 11:49 98 24 97 100 10/21/19 11:37 104 119/65 10/21/19 11:27 Mechanical Ventilator 70.00 10/21/19 11:00 99 38 133/75 (94) 91 Vapotherm 40.00 60.00 10/21/19 10:00 94 25 152/79 (103) 95 Vapotherm 40.00 60.00 10/21/19 09:52 91 40.00 70 10/21/19 09:00 101 25 155/93 (113) 94 Vapotherm 40.00 60.00 10/21/19 08:43 Vapotherm 40.00 70.00 10/21/19 08:00 103 36 171/98 (122) 93 Vapotherm 40.00 60.00 10/21/19 08:00 Vapotherm 40.00 70 10/21/19 06:43 99 I & O 10/22/19 07:00 Intake Total 4010 ml Output Total 3575 ml Balance 435 ml Height & Weight Height: 5'9.00" Weight: 253lbs. 1.0oz. 114.722918pl; 38.95 BMI Method:Stated General Appearance: Chronically ill, Moderate Distress, Obese HEENT: PERRL/EOMI; No Pale Conjunctivae (L), No Pale Conjunctivae (R), No Scleral Icterus (L), No Scleral Icterus (R) Neck: Full Range of Motion, Normal Inspection, Non Tender Respiratory: Crackles, Rhonci, Wheezing Cardiovascular: Regular Rate, Rhythm, No Edema, No Gallop, No JVD, No Murmur, Normal Peripheral Pulses Capillary Refill: Less Than 3 Seconds Gastrointestinal: non tender, soft Extremity: Normal Capillary Refill, Non Tender, No Calf Tenderness, Pedal Edema Neurologic/Psychiatric: Alert Skin: Normal Color Lymphatic: No Adenopathy Results Lab Laboratory Tests 10/21/19 04:03 10/22/19 03:00 Assessment/Plan Assessment/Plan Acute worsening respiratory failure on chronic with ARDS -Continue ventilator therapy -COVID 19 is negative. -DuoNebs q 4hr -Monitor close -Pt and family are ok with intubation and all questions were answered. Pneumonia with sepsis and hypoxia - not severe sepsis -Continue Vanco and Merrem hx of ESBL -Await cultures Anemia -Monitor hx of CAD GI/DVT ppx 0 -She is on Eliquis for hx of Afib and hx of PE -Protonix DM -Diabetic Diet -insulin Stage 1 decubitus ulcer in diabetic patient STEFANIE STARKS DO Oct 22, 2019 06:36
--- NOTE | 2019-10-22 07:33 | Cardiology Progress Note ---
Subjective Date Seen by Provider: Oct 22, 2019 Time Seen by Provider: 07:32 Subjective/Events-last exam Patient is sedated and intubated, having worsening pulmonary infiltrate Review of Systems General: Other (Sedated and intubated) Objective-Cardiology Exam Last Set of Vital Signs Vital Signs 10/22/19 10/22/19 03:08 06:00 Temp 36.8 Pulse 84 Resp 21 B/P (MAP) 138/71 (93) Pulse Ox 95 O2 Delivery Mechanical Ventilator O2 Flow Rate 80.00 Capillary Refill : Less Than 3 Seconds I&O Intake and Output 10/22/19 00:00 Intake Total 3450 ml Output Total 4975 ml Balance -1525 ml Intake Oral 960 ml IV Total 2390 ml Other 100 ml Output Urine Total 4975 ml General: Other (sedated and intubated) HEENT: Atraumatic Neck: Supple, No Thyromegaly Lungs: Normal Air Movement, Other (Bilateral wheezing, rhonchi) Heart: Regular Rate, Normal S1, Normal S2, No Murmurs Abdomen: Normal Bowel Sounds, Soft, No Tenderness, No Hepatosplenomegaly, No Masses Extremities: No Clubbing, No Cyanosis, Normal Pulses, No Tenderness/Swelling, Other (Trace edema) Skin: No Rashes, No Breakdown, No Significant Lesion Neuro: Other (sedated and intubated) Psych/Mental Status: Other (sedated and intubated) Results Lab Laboratory Tests 10/22/19 03:00 A/P-Cardiology Admission Diagnosis Pneumonia Acute respiratory failure Coronary artery disease Hypertension Assessment/Plan Pneumonia, acute respiratory failure, possible ARDS, progressed into ventilatory dependent respiratory failure, for bronchoscopy today, managed by Dr. Bowen History of COPD, managed by Dr. Boewn Mild elevation of BNP returned to normal, had echocardiogram done in August 2019 reported ejection fraction 50-55 percent, grade 1 diastolic dysfunction, pu lmonary artery pressure of 35 mmHg. Continue to monitor Coronary artery disease, reported history of angioplasty to a small artery in 2001, most recent cardiac catheterization done October 2017 revealed nonobstructive disease, continue to monitor. History of transient ischemic attack, was hospitalized in June 2017, no source of embolization was noted, fully recovered Paroxysmal atrial fibrillation, had a reported history of atrial fibrillation in August 2019, at that time she was seen by Dr. Hamm, maintained on Eliquis History of pulmonary embolism, ,maintained on Eliquis Hypertension, labile blood pressure, had history of hypotension and dizziness, continue to monitor blood pressure Hyperlipidemia, continue to monitor COPD, using oxygen at home at night. Followed by Dr. Bowen BMI is 40, discussed weight loss and exercise Diabetes mellitus, followed and managed by primary care physician Peripheral neuropathy, generalized body ache. Clinical Quality Measures DVT/VTE Risk/Contraindication: Risk Factor Score Per Nursin RFS Level Per Nursing on Admit: 4+=Very High LATRICIA MIRANDA MD Oct 22, 2019 07:33
--- NOTE | 2019-10-22 07:47 | Pulmonary Procedures ---
Pulmonary Procedures Date of Procedure Date of Service: Oct 22, 2019 Bronch Bronchoscopy with bilateral bronchial washes. Preop DX ARDS Postop DX: same Complications: none After informed consent obtained and formal time out pt was sedated using propofol and Versed. Bronchoscope was advanced through the ET tube and an anatomical tour was undertaken down to the segmental bronchi bilaterally. No endobronchial lesions noted. Bilateral bronchial washes were obtained. Pt tolerated procedure well. No complications noted. Stat CXR is pending. STEFANIE STARKS DO Oct 22, 2019 07:47
[2019-10-22] MEDS ORDERED: VANCOMYCIN 1250 MG/NS 250 ML IVPB IV SCH ×2 (08:00)
[2019-10-22] MEDS: DexMEDEtomidine 250 ML DRIP 250 ML IV SCH ×2 (08:00→14:32)
--- NOTE | 2019-10-22 08:13 | Physical Therapy Progress Note ---
Therapy Progress Note Patient currently intubated and on mechanical ventilator. PT will continue to monitor patient status and initiate treatment when patient is medically stable and able to actively participate with skilled therapy. ROMAN KELLEY PT Oct 22, 2019 08:12
--- NOTE | 2019-10-22 09:07 | Occ Therapy Progress Note ---
Therapy Progress Note Pt. continues on sedation and ventilator support. Will continue to monitor and assess pt. for occupational therapy services when medically ready. [id number] RAJNI BROWN OT Oct 22, 2019 09:07
[2019-10-22] MEDS: ADVAIR HFA 115/21 MCG INHALER 8 GM IH SCH (09:27)
[2019-10-22] MEDS: UMECLIDINIUM BROMIDE (INCRUSE ELLIPTA) 7'S IH SCH (09:28)
[2019-10-22] MEDS: LOSARTAN 25 MG (COZAAR) TAB PO SCH (09:54)
[2019-10-22] MEDS: CYCLOBENZAPRINE 10 MG (FLEXERIL) TAB PO SCH ×2 (09:54→14:30)
[2019-10-22] MEDS: LINAGLIPTIN (TRADJENTA) 5 MG TABLET PO SCH (09:55)
[2019-10-22] MEDS: OXYBUTYNIN (DITROPAN) 5 MG TAB PO SCH (09:55)
[2019-10-22] MEDS: MELOXICAM 7.5 MG (MOBIC) TABLET PO SCH (09:55)
[2019-10-22] MEDS: APIXABAN 5 MG (ELIQUIS) TABLET PO SCH (09:55)
[2019-10-22] MEDS: PREGABALIN 150 MG (LYRICA) CAPSULE PO SCH ×2 (09:55→14:30)
[2019-10-22] MEDS: NYSTATIN CREAM (MYCOSTATIN) 30 GM TUBE TP SCH ×2 (09:55→14:30)
[2019-10-22] MEDS: SENNA W/DOCUSATE (SENOKOT S) TABLET PO SCH (09:59)
[2019-10-22] MEDS ORDERED: LIDOCAINE PF 1% 2 ML AMP IJ ONE (10:47)
--- NOTE | 2019-10-22 12:20 | Progress Note - Hospitalist ---
CHEPE RIVERA,MED STUDENT 10/22/19 1220: Subjective HPI/CC On Admission Date Seen by Provider: Oct 22, 2019 Time Seen by Provider: 08:15 CC: Recurrent PNA HPI: This is a 54yoWF clinic patient of [facility] known to me from multiple hospital stays most recent DC Saturday for PNA after she refused NH placement and went home and just sat in her recliner and had fecal and urinary incontinence because she was too weak to get up. She has since experienced periarea pain from chafing and yeast involvement and hypoxia and elevated wbc from recurrent PNA. DM will be managed along with other home meds along with Dr Parmar consultation for elevated BNP. Subjective/Events-last exam Patient continues to be intubated and sedated. CXR today reveals severe diffuse alveolar infiltrates unchanged from previous day. WBC 10.1 today, down from 17.[address] Bowen performed bronchoscopy this morning. Pt. still on Meropenem and Vanc. Objective Exam Vital Signs Vital Signs Date Time Temp Pulse Resp B/P (MAP) Pulse Ox O2 Delivery O2 Flow Rate FiO2 10/22/19 12:14 35.5 10/22/19 12:11 Mechanical Ventilator 40.00 10/22/19 11:33 73 161/80 10/22/19 11:00 23 96 10/22/19 09:02 70 Capillary Refill : Less Than 3 Seconds General Appearance: Chronically ill, Obese, Other (Sedated on vent) Respiratory: Crackles, Decreased Breath Sounds, Wheezing Cardiovascular: Regular Rate, Rhythm, No Edema, No Murmur, Normal Peripheral Pulses Gastrointestinal: Normal Bowel Sounds, Soft Extremity: Normal Capillary Refill, No Pedal Edema Neurologic/Psychiatric: Other (sedated on vent) Skin: Normal Color, Warm/Dry Results/Procedures Lab Laboratory Tests 10/22/19 03:00 Patient resulted labs reviewed. Assessment/Plan Assessment and Plan Assess & Plan/Chief Complaint Assessment: Ventilator-dependent respiratory failure -failed Vapotherm PNA UTI Hypoxia Leukocytosis - improving Anemia Hx of PAF Hx of PE HTN Diabetes mellitus GERD Anxiety Depression Morbid Obesity Hx of UTI ESBL Plan: Sedated on vent Respiratory viral panel negative COVID-19 negative Blood cultures negative BNP returned to normal Continue meropenem and vancomycin Continue home DM meds Clinical Quality Measures DVT/VTE Risk/Contraindication: Risk Factor Score Per Nursin RFS Level Per Nursing on Admit: 4+=Very High KENDRA URBINA DO 10/22/19 1519: Subjective Subjective/Events-last exam Maintain intubation Eschbach consult for long-term vent care Elevated BP a bit but overall otherwise stable No family at the bedside Review of Systems Pulmonary: Dyspnea Objective Exam General Appearance: No Apparent Distress, Other (Intubated) Respiratory: Crackles, Wheezing Cardiovascular: Regular Rate, Rhythm Neurologic/Psychiatric: Other (Intubated and Sedated ) Supervisory-Addendum Brief Verification & Attestation Participated in pt care: history, MDM, physical Personally performed: exam, history, MDM, supervision of care Care discussed with: Medical Student Procedures: n/a Results interpretation: Verified all documentation Verification and Attestation of Medical Student E/M Service A medical student performed and documented this service in my presence. I reviewed and verified all information documented by the medical student and made modifications to such information, when appropriate. I personally performed the physical exam and medical decision making. Kendra Urbina, Oct 22, 2019,22:25 CHEPE RIVERA,MED STUDENT Oct 22, 2019 12:20 KENDRA URBINA DO Oct 22, 2019 15:19
[2019-10-22] MEDS ORDERED: FUROSEMIDE 40 MG/4 ML INJ (LASIX) IVP ONE (14:15)
--- NOTE | 2019-10-22 16:12 | NUR ---
CM/SS: Referral sent to [facility] Plan: Pt was accepted to [facility] at [facility] and will be leaving today at 4:00pm via ambulance transport.
--- NOTE | 2019-10-22 17:10 | NUR ---
report called to Joselyn meyer. pt leaves via [facility] at [phone]
--- NOTE | 2019-10-22 22:04 | Discharge Summary ---
Discharge Summary Hospital Course Was the Problem List Reviewed?: Yes Problems/Dx: (1) Ventilator dependence (2) Pneumonia Status: Acute (3) Urinary tract infection Status: Resolved Hospital Course Date of Admission: Oct 17, 2019 at 15:00 Admission Diagnosis : Family Physician/Provider: Valeri Hernández Aprn Date of Discharge: 10/22/19 Discharge Diagnosis: VDRF, COPD, DM, HTN, ESBL UTI Hospital Course[facility] Coombs is a 54yo female with a hx of asthma, COPD, CAD, PAF, and HTN who presented to [facility] ED via EMS on 10/17/2019 c/o shortness of breath despite using her usual 2L of oxygen at home. She had recently been discharged from [facility] on October 11 after receiving treatment for pneumonia, and she had declined residential and returned home. She reported being very inactive and weak, experiencing urine and stool incontinence due to being too weak to stand up. She had inflammation and skin breakdown of the perineal region consistent with a fungal infection. While in the ED, she was treated with fentanyl for pain, nystatin for the perineal region, and IV fluids. She had a mildly elevated BNP, but was not overtly fluid overloaded. CXR revealed extensive bilateral pulmonary infiltrates. She was accepted for admission by Dr. Urbina. Pancultures were collected and she was started on vancomycin and meropenem. Blood cultures were negative, influenza A & B were negative, and MRSA was not isolated. Cardiology and pulmonology were consulted. Despite antibiotic therapy and negative viral panels, she developed worsening acute respiratory failure and failed vapotherm, and was placed in ICU and intubated. Due to her worsening conditions with no obvious etiology, she was approved for and was tested for COVID-19 through [facility], which came back negative. A bronchoscopy was performed and bronchial washings collected, along with endotracheal sputum cultures, which returned positive for MRSA. She was then accepted for care home acute care at [facility], and was transferred via EMS on 10/22/2019. Labs and Pending Lab Test: Laboratory Tests 10/21/19 23:20: Glucometer 73 10/22/19 02:49: B-Type Natriuretic Peptide 24.2 10/22/19 03:00: White Blood Count 10.9, Red Blood Count 3.36L, Hemoglobin 9.3L, Hematocrit 29L, Mean Corpuscular Volume 87, Mean Corpuscular Hemoglobin 28, Mean Corpuscular Hemoglobin Concent 32, Red Cell Distribution Width 16.2H, Platelet Count 359, Mean Platelet Volume 10.4, Neutrophils (%) (Auto) 73, Lymphocytes (%) (Auto) 20, Monocytes (%) (Auto) 6, Eosinophils (%) (Auto) 2, Basophils (%) (Auto) 0, Neutrophils # (Auto) 7.9H, Lymphocytes # (Auto) 2.2, Monocytes # (Auto) 0.6, Eosinophils # (Auto) 0.2, Basophils # (Auto) 0.0, Blood Gas Puncture Site RT RAD, Blood Gas Patient Temperature 36.7, Arterial Blood pH 7.53H, Arterial Blood Partial Pressure CO2 37, Arterial Blood Partial Pressure O2 58L, Arterial Blood HCO3 31H, Arterial Blood Total CO2 31.9H, Arterial Blood Oxygen Saturation 93L, Arterial Blood Base Excess 7.5H, Yamil Test POS, Blood Gas Ventilator Setting YES, Blood Gas Inspired Oxygen 60%, Sodium Level 141, Potassium Level 4.3, Chloride Level 102, Carbon Dioxide Level 28, Anion Gap 11, Blood Urea Nitrogen 12, Creatinine 0.74, Estimat Glomerular Filtration Rate > 60, BUN/Creatinine Ratio 16, Glucose Level 65L, Calcium Level 9.5, Phosphorus Level 4.0, Magnesium Level 1.9 10/22/19 05:22: Glucometer 76 10/22/19 09:53: Glucometer 178H Microbiology 10/21/19 Gram Stain - Final, Resulted 10/21/19 Sputum Culture - Preliminary, Resulted Staphylococcus aureus 10/17/19 Urine Culture - Final, Complete Mixed Bacterial Effie YEAST 10/17/19 Blood Culture - Preliminary, Resulted No growth Home Meds Active Cefdinir 300 Mg Capsule 300 Mg PO BID 7 Days Senna-Time S Tablet (Sennosides/Docusate Sodium) 1 Each Tablet 1 Each PO BID Advair Hfa 115-21 Mcg Inhaler (Fluticasone/Salmeterol) 12 Gm Hfa.aer.ad 0 Puff IH BID@ Reported Incruse Ellipta (Umeclidinium [place]) 62.5 Mcg Blst.w.dev 1 Puff IN DAILY Amitriptyline HCl 75 Mg Tablet 75 Mg PO HS Oxybutynin Chloride ER (Oxybutynin Chloride) 5 Mg Tab.er.24 5 Mg PO DAILY Omeprazole 40 Mg Capsule.dr 40 Mg PO DAILY Trulicity (Dulaglutide) 0.75 Mg/0.5 Ml Pen.injctr 0.75 Mg SC TU Melatonin 10 Mg Tablet 10 Mg PO HS PRN Glucagon Emergency Kit (Glucagon,Human Recombinant) 1 Mg/Kit Soln SC UD PRN Meloxicam 15 Mg Tablet 15 Mg PO DAILY Potassium Chloride 20 Meq Tab.er.prt 20 Meq PO DAILY Sumatriptan Succinate 50 Mg Tablet 50 Mg PO UD PRN TAKE 1 TAB AT ONSET OF MIGRAINE, IF SYMPTOMS PERSIST AFTER 2 HOURS TAKE AN ADDITIONAL TABLET Losartan Potassium 25 Mg Tablet 25 Mg PO DAILY Fluticasone Propionate 16 Gm [place].susp 2 Sprays NS DAILY PRN Lyrica (Pregabalin) 150 Mg Capsule 150 Mg PO TID Januvia (Sitagliptin Phosphate) 100 Mg Tablet 100 Mg PO DAILY Farxiga (Dapagliflozin Propanediol) 10 Mg Tablet 10 Mg PO DAILY Proair Hfa (Albuterol Sulfate) 1 Puff Puff 2 Puff IH QID PRN Hydroxyzine HCl 50 Mg Tablet 50 Mg PO BID PRN Cyclobenzaprine HCl 10 Mg Tablet 10 Mg PO TID Furosemide 40 Mg Tablet 40 Mg PO DAILY Fish Oil 1,000 mg Capsule ([place] 3 Polyunsat Fatty Acids) 1,000 Mg Cap 1,000 Mg PO HS Novolog Flexpen (Insulin Aspart) 300 Units/3 Ml Solution 50 Units SQ TIDAC Levemir Flextouch (Insulin Detemir) 100 Unit/1 Ml Insuln.pen 80 Unit SQ BID Eliquis (Apixaban) 5 Mg Tablet 5 Mg PO BID Rosuvastatin Calcium 40 Mg Tablet 40 Mg PO DAILY Assessment/Pt Instructions [place] Discharge Planning: <30 minutes discharge planning Discharge Instructions Discharge Diet: Other Diet Pneumonia Vaccine Order Indica: Yes Discharge Physical Examination Vital Signs Vital Signs Date Time Temp Pulse Resp B/P (MAP) Pulse Ox O2 Delivery O2 Flow Rate FiO2 10/22/19 16:40 68 10/22/19 16:00 Mechanical Ventilator 35 10/22/19 16:00 18 156/79 (104) 95 40.00 10/22/19 15:18 36.2 General Appearance: No Apparent Distress, WD/WN, Chronically ill Allergies: Coded Allergies: sulfamethoxazole (Verified Allergy, Severe, JOINTS HURT, 12/21/18) trimethoprim (Verified Allergy, Severe, JOINTS HURT, 12/21/18) influenza virus vaccine, specific (Unverified Allergy, Intermediate, rash, 09/23/18) aspirin (Unverified Allergy, Unknown, convulsions, 09/23/18) metformin (Verified Adverse Reaction, Intermediate, joint pain, 09/23/18) hydromorphone HCl (Unverified Adverse Reaction, Mild, VOMITING, 01/06/11) Discharge Summary Date of Admission Oct 17, 2019 at 15:00 Date of Discharge Oct 22, 2019 at 16:54 Admission Diagnosis Assessment: PNA recurrent type Hypoxia COPD Asthma PAF Hx of pancreatitis GERD s/p EGD/Colonoscopy 3 months ago Anxiety Depression Morbid Obesity HTN Poor social support h/o UTI ESBL Plan: IV abx CSD Home meds Pain control DM management Discharge Diagnosis Intubation (1) Ventilator dependence (2) Pneumonia Status: Acute (3) Urinary tract infection Status: Resolved Clinical Quality Measures DVT/VTE Risk/Contraindication: Risk Factor Score Per Nursin RFS Level Per Nursing on Admit: 4+=Very High DARRELL URBINA DO Oct 22, 2019 22:04
--- NOTE | 2019-10-23 11:41 | Progress Note ---
CHEPE RIVERA MED STUDENT 10/23/19 1141: Progress Note Hospital course: Ms. Coombs is a 54yo female with a hx of asthma, COPD, CAD, PAF, and HTN who presented to [facility] ED via EMS on 10/17/2019 c/o shortness of breath despite using her usual 2L of oxygen at home. She had recently been discharged from [facility] on October 11 after receiving treatment for pneumonia, and she had declined intermediate and returned home. She reported being very inactive and weak, experiencing urine and stool incontinence due to being too weak to stand up. She had inflammation and skin breakdown of the perineal region consistent with a fungal infection. While in the ED, she was treated with fentanyl for pain, nystatin for the perineal region, and IV fluids. She had a mildly elevated BNP, but was not overtly fluid overloaded. CXR revealed extensive bilateral pulmonary infiltrates. She was accepted for admission by Dr. Iqbal. Pancultures were collected and she was started on vancomycin and meropenem. Blood cultures were negative, influenza A & B were negative, and MRSA was not isolated. Cardiology and pulmonology were consulted. Despite antibiotic therapy and negative viral panels, she developed worsening acute respiratory failure and failed vapotherm, and was placed in ICU and intubated. Due to her worsening conditions with no obvious etiology, she was approved for and was tested for COVID-19 through [facility], which came back negative. A bronchoscopy was performed and bronchial washings collected, along with endotracheal sputum cultures, which returned positive for MRSA. She was then accepted for half-way acute care at [facility], and was transferred via EMS on 10/22/2019. KENDRA IQBAL DO 10/23/19 2137: Supervisory-Addendum Brief Verification & Attestation Participated in pt care: history, MDM, physical Personally performed: exam, history, MDM, supervision of care Care discussed with: Medical Student Procedures: n/a Results interpretation: Verified all documentation Verification and Attestation of Medical Student E/M Service A medical student performed and documented this service in my presence. I reviewed and verified all information documented by the medical student and made modifications to such information, when appropriate. I personally performed the physical exam and medical decision making. Kendra Iqbal Oct 23, 2019,21:37 CHEPE RIVERA MED STUDENT Oct 23, 2019 11:41 KENDRA IQBAL DO Oct 23, 2019 21:37
== END 2019-10-22 16:54 | DRG 871 ==
LOC: EDUNIT# 12:42 → ER FS 12:44 → ICU 15:00
PROVIDERS: ADMIT Internal Medicine; ATTEND Internal Medicine
PROC: 5A1945Z Respiratory Ventilation, 24-96 Consecutive Hours (ICD-10-PCS; principal; 2019-10-21)
PROC: 0BH17EZ Insertion of Endotracheal Airway into Trachea, Via Natural or Artificial Opening (ICD-10-PCS; 2019-10-21)
PROC: 0B938ZZ Drainage of Right Main Bronchus, Via Natural or Artificial Opening Endoscopic (ICD-10-PCS; 2019-10-22)
PROC: 0B978ZZ Drainage of Left Main Bronchus, Via Natural or Artificial Opening Endoscopic (ICD-10-PCS; 2019-10-22)
DX: A41.02 Sepsis due to Methicillin resistant Staphylococcus aureus (principal); J15.212 Pneumonia due to Methicillin resistant Staphylococcus aureus; J80 Acute respiratory distress syndrome; J81.0 Acute pulmonary edema; E66.2 Morbid (severe) obesity with alveolar hypoventilation; Z68.41 Body mass index [BMI] 40.0-44.9, adult; I42.9 Cardiomyopathy, unspecified; B37.49 Other urogenital candidiasis; J43.9 Emphysema, unspecified; L89.151 Pressure ulcer of sacral region, stage 1; E11.40 Type 2 diabetes mellitus with diabetic neuropathy, unspecified; B35.4 Tinea corporis; I48.0 Paroxysmal atrial fibrillation; I25.10 Atherosclerotic heart disease of native coronary artery without angina pectoris; I10 Essential (primary) hypertension; K21.9 Gastro-esophageal reflux disease without esophagitis; F17.210 Nicotine dependence, cigarettes, uncomplicated; R32 Unspecified urinary incontinence; R15.9 Full incontinence of feces; F41.9 Anxiety disorder, unspecified; F32.9 Major depressive disorder, single episode, unspecified; E78.00 Pure hypercholesterolemia, unspecified; E87.6 Hypokalemia; T50.1X5A Adverse effect of loop [high-ceiling] diuretics, initial encounter; Z99.81 Dependence on supplemental oxygen; Z79.01 Long term (current) use of anticoagulants; Z79.4 Long term (current) use of insulin; Z86.711 Personal history of pulmonary embolism; Z86.73 Personal history of transient ischemic attack (TIA), and cerebral infarction without residual deficits
CPT/HCPCS: 36415; 36600; 51702; 71045; 80048; 80053; 80076; 80202; 80306; 81000; 82805; 82962; 83605; 83735; 83880; 84100; 84478; 84484; 85007; 85025; 85027; 87015; 87040; 87070; 87077; 87081; 87088; 87101; 87116; 87205; 87206; 87631; 87804; 93005; 94002; 94003; 94640; 94799

== ENCOUNTER → 2020-05-03 | Outpatient (CLI) | payer MEDICARE, MEDICAID ==
[~2020-05-03] MED LIST changes: +MULT-567 PO; -MULT1TAB69 PO
--- NOTE | 2020-05-03 15:41 | Diagnostic Imaging Report ---
INDICATION: Shortness of breath and cough. TECHNIQUE/COMPARISON: PA and lateral films of the chest were obtained at 1:42 PM and compared to 10/22/2019. FINDINGS: There is cardiomegaly. There is some scarring or atelectasis in both lung bases. There is diffuse interstitial infiltrate in the perihilar region. There is no pneumothorax or pleural fluid. IMPRESSION: Interstitial infiltrates are present which have improved compared to 10/22/2019 but not resolved. There is some linear scarring or atelectasis in both lung bases. There is no pneumothorax or pleural fluid. Dictated by: Dictated on workstation # [id number]
== END ==
LOC: RAD FS 13:37
PROVIDERS: ATTEND Nurse Practitioner Family
DX: J44.1 Chronic obstructive pulmonary disease with (acute) exacerbation (principal); R91.8 Other nonspecific abnormal finding of lung field
CPT/HCPCS: 71046

== ENCOUNTER 2020-05-07 09:19 | Emergency (ER) | payer MEDICARE, MEDICAID ==
[~2020-05-07] VITALS: Ht 175 cm; Wt 130.0 kg
[2020-05-07] MEDS ORDERED: RT-ALBUTEROL/IPRATROPIUM 3 ML (DUONEB) VIAL ONE (09:40)
--- NOTE | 2020-05-07 09:41 | ED Respiratory ---
General Chief Complaint: Respiratory Problems Stated Complaint: PAINFUL BREATHING Source: patient, EMS Exam Limitations: no limitations History of Present Illness Date Seen by Provider: May 07, 2020 Time Seen by Provider: 09:30 Initial Comments 54-year-old female presents via EMS with complaint of left-sided chest pain onset when she woke up early this morning. Patient with a history of "heart problems" as well as COPD. She saw her PCP 3 days ago and was started on antibiotic and steroids for presumed COPD exacerbation. Patient denies any fever or chills, exposure to COVID-19. She denies nausea vomiting or diarrhea. She is still a smoker. Allergies and Home Medications Allergies Coded Allergies: sulfamethoxazole (Verified Allergy, Severe, JOINTS HURT, 12/21/18) trimethoprim (Verified Allergy, Severe, JOINTS HURT, 12/21/18) influenza virus vaccine, specific (Unverified Allergy, Intermediate, rash, 09/23/18) aspirin (Unverified Allergy, Unknown, convulsions, 09/23/18) metformin (Verified Adverse Reaction, Intermediate, joint pain, 09/23/18) hydromorphone HCl (Unverified Adverse Reaction, Mild, VOMITING, 01/06/11) Home Medications Albuterol Sulfate 1 Puff Puff, 2 PUFF IH QID PRN for SHORTNESS OF BREATH, (Reported) Amitriptyline HCl 75 Mg Tablet, 75 MG PO HS, (Reported) Apixaban 5 Mg Tablet, 5 MG PO BID, (Reported) Azithromycin 250 Mg Tablet, 250 MG PO UD TAKE 2 TABLETS ON DAY ONE THEN TAKE 1 TABLET DAILY FOR FOUR MORE DAYS Prescribed by: FACUNDO CHO on 05/07/20 1016 Cefdinir 300 Mg Capsule, 300 MG PO BID Prescribed by: DEANDRE CUEVAS on 10/14/19 1052 Cyclobenzaprine HCl 10 Mg Tablet, 10 MG PO TID, (Reported) Dapagliflozin Propanediol 10 Mg Tablet, 10 MG PO DAILY, (Reported) Dulaglutide 0.75 Mg/0.5 Ml Pen.injctr, 0.75 MG SC Tu, (Reported) Fluticasone Propionate 16 Gm [place].susp, 2 SPRAYS NS DAILY PRN for CONGESTION, (Reported) Fluticasone/Salmeterol 12 Gm Hfa.aer.ad, 0 PUFF IH BID@08,20 Prescribed by: DARRELL URBINA on 09/11/19 111 Furosemide 40 Mg Tablet, 40 MG PO DAILY, (Reported) Glucagon,Human Recombinant 1 Mg/Kit Soln, SC UD PRN for HYPOGLYCEMIA, (Reported) Hydroxyzine HCl 50 Mg Tablet, 50 MG PO BID PRN for ANXIETY, (Reported) Insulin Aspart 300 Units/3 Ml Solution, 50 UNITS SQ TIDAC, (Reported) Insulin Detemir 100 Unit/1 Ml Insuln.pen, 80 UNIT SQ BID, (Reported) Losartan Potassium 25 Mg Tablet, 25 MG PO DAILY, (Reported) Melatonin 10 Mg Tablet, 10 MG PO HS PRN for SLEEP, (Reported) Meloxicam 15 Mg Tablet, 15 MG PO DAILY, (Reported) [place] 3 Polyunsat Fatty Acids 1,000 Mg Cap, 1,000 MG PO HS, (Reported) Omeprazole 40 Mg Capsule.dr, 40 MG PO DAILY, (Reported) Oxybutynin Chloride 5 Mg Tab.er.24, 5 MG PO DAILY, (Reported) Potassium Chloride 20 Meq Tab.er.prt, 20 MEQ PO DAILY, (Reported) Pregabalin 150 Mg Capsule, 150 MG PO TID, (Reported) Rosuvastatin Calcium 40 Mg Tablet, 40 MG PO DAILY, (Reported) Sennosides/Docusate Sodium 1 Each Tablet, 1 EACH PO BID Prescribed by: DARRELL URBINA on 09/11/191115 Sitagliptin Phosphate 100 Mg Tablet, 100 MG PO DAILY, (Reported) Sumatriptan Succinate 50 Mg Tablet, 50 MG PO UD PRN for MIGRAINE, (Reported) TAKE 1 TAB AT ONSET OF MIGRAINE, IF SYMPTOMS PERSIST AFTER 2 HOURS TAKE AN ADDITIONAL TABLET Umeclidinium [place] 62.5 Mcg Blst.w.dev, 1 PUFF IN DAILY, (Reported) Patient Home Medication List Home Medication List Reviewed: Yes Review of Systems Review of Systems Constitutional: see HPI; No dizziness, No fever; malaise; No weakness EENTM: no symptoms reported Respiratory: see HPI, cough, short of breath, wheezing Cardiovascular: chest pain; No edema, No palpitations, No syncope Musculoskeletal: No back pain, No joint pain Skin: No change in color, No rash Past Uiqcbqf-Ijhrly-Nuwoaq Hx Past Med/Social Hx: Reviewed Nursing Past Med/Soc Hx Patient Social History Alcohol Use: Denies Use Recreational Drug Use: No Smoking Status: Current Everyday Smoker Type Used: Cigarettes 2nd Hand Smoke Exposure: Yes Recent Hopitalizations: No Physical Abuse: No Sexual Abuse: No Mistreated: No Fear: No Immunizations Up To Date Tetanus Booster (TDap): Unknown PED Vaccines UTD: No Date of Pneumonia Vaccine: May 12, 2012 Seasonal Allergies Seasonal Allergies: No Past Medical History Surgeries: Yes Appendectomy, Gallbladder, Hysterectomy Respiratory: Yes COPD Currently Using CPAP: No Currently Using BIPAP: No Cardiac: Yes Atrial Fibrillation, Cardiomyopathy, Chronic Edema/Swelling, Coronary Artery Disease, High Cholesterol, Hypertension Neurological: Yes Neuropathy Reproductive Disorders: No (partial hysterectomy of R side. ) Female Reproductive Disorders: Denies Sexually Transmitted Disease: No HIV/AIDS: No Genitourinary: Yes Kidney Infection, UTI-Chronic Gastrointestinal: Yes Gastroesophageal Reflux, Pancreatitis, Chronic Diarrhea Musculoskeletal: Yes Arthritis Endocrine: Yes Diabetes, Insulin dep HEENT: Yes Tinnitis Loss of Vision: Bilateral Hearing Impairment: Denies Cancer: No Psychosocial: Yes Anxiety, Depression Integumentary: No Blood Disorders: No Adverse Reaction/Blood Tranf: No Family Medical History Alcoholism G8 BROTHER Alzheimer's disease 19 MOTHER Arthritis 19 FATHER 19 MOTHER G8 BROTHER G8 BROTHER G8 BROTHER G8 BROTHER G8 BROTHER G8 SISTER G8 SISTER G8 SISTER G8 SISTER G8 SISTER G8 SISTER Asthma 19 FATHER 19 MOTHER G8 SISTER G8 SISTER Cancer of mouth Cardiovascular disease 19 FATHER 19 MOTHER G8 BROTHER G8 BROTHER G8 SISTER G8 SISTER Completed stroke 19 FATHER G8 SISTER G8 SISTER Dementia G8 BROTHER Diabetes mellitus 19 FATHER 19 MOTHER G8 BROTHER G8 BROTHER G8 BROTHER G8 BROTHER G8 BROTHER G8 SISTER G8 SISTER G8 SISTER G8 SISTER G8 SISTER G8 SISTER Glaucoma 19 MOTHER G8 SISTER G8 SISTER Hypercholesterolemia 19 FATHER 19 MOTHER Hypertension 19 FATHER 19 MOTHER G8 BROTHER G8 BROTHER G8 BROTHER G8 BROTHER G8 BROTHER G8 SISTER G8 SISTER G8 SISTER G8 SISTER G8 SISTER G8 SISTER Myocardial infarction 19 FATHER 19 MOTHER G8 BROTHER G8 BROTHER G8 SISTER G8 SISTER G8 SISTER Osteoporosis G8 SISTER Seizure disorder G8 BROTHER No Family History of: AIDS Abdominal aortic aneurysm [place] disease Aphasia Cataracts Colon cancer Congenital disease Congenital heart disease Coronary thrombosis Cystic fibrosis Deafness or hearing loss Drug abuse Dysphasia Fibrocystic disease of breast Gastroenteritis Headache disorder Infertility Kidney disease Neoplasm Parkinson's disease Prostate cancer Psychosocial problem Severe allergy Thyroid disease Tuberculosis Visual disorder Cancer Physical Exam Vital Signs - First Documented 05/07/20 05/07/20 09:35 12:20 Temp 34.8 Pulse 93 Resp 18 B/P (MAP) 154/67 (96) Pulse Ox 97 O2 Delivery Room Air O2 Flow Rate 3.00 Capillary Refill : Height: 5'9.00" Weight: 253lbs. 1.0oz. 114.999742wm; 38.95 BMI Method:Stated General Appearance: WD/WN, no apparent distress HEENT: PERRL/EOMI, normal ENT inspection Neck: non-tender, full range of motion Respiratory: no respiratory distress, no accessory muscle use; No decreased breath sounds, No accessory muscle use; wheezing, expiration, other (tenderness to palpation, anterior chest) Cardiovascular: regular rate, rhythm, no edema, no JVD Gastrointestinal: non tender, soft; No guarding, No rebound Extremities: non-tender, no pedal edema Neurologic/Psychiatric: alert, normal mood/affect, oriented x 3 Skin: normal color, warm/dry Procedures/Interventions Date of ETT Placement: Oct 21, 2019 Time of ETT Placement: 1040 Suture Size: 4-0 Progress/Results/Core Measures Suspected Sepsis SIRS Temperature: Pulse: Respiratory Rate: Laboratory Tests 05/07/20 09:30: White Blood Count 15.0H Blood Pressure / Mean: Laboratory Tests 05/07/20 09:30: Creatinine 0.84, Platelet Count 288, Total Bilirubin 0.3 Results/Orders Lab Results Laboratory Tests Test 05/07/20 09:30 05/07/20 11:28 Range/Units White Blood Count 15.0 H 4.3-11.0 10^3/uL Red Blood Count 4.87 4.35-5.85 10^6/uL Hemoglobin 12.3 11.5-16.0 G/DL Hematocrit 40 35-52 % Mean Corpuscular Volume 82 80-99 FL Mean Corpuscular Hemoglobin 25 25-34 PG Mean Corpuscular Hemoglobin Concent 31 L 32-36 G/DL Red Cell Distribution Width 17.5 H 10.0-14.5 % Platelet Count 288 130-400 10^3/uL Mean Platelet Volume 12.3 H 7.4-10.4 FL Immature Granulocyte % (Auto) 1 % Neutrophils (%) (Auto) 70 42-75 % Lymphocytes (%) (Auto) 21 12-44 % Monocytes (%) (Auto) 7 0-12 % Eosinophils (%) (Auto) 1 0-10 % Basophils (%) (Auto) 1 0-10 % Neutrophils # (Auto) 10.5 H 1.8-7.8 X 10^3 Lymphocytes # (Auto) 3.1 1.0-4.0 X 10^3 Monocytes # (Auto) 1.1 H 0.0-1.0 X 10^3 Eosinophils # (Auto) 0.1 0.0-0.3 10^3/uL Basophils # (Auto) 0.1 0.0-0.1 10^3/uL Immature Granulocyte # (Auto) 0.1 0.0-0.1 10^3/uL Neutrophils % (Manual) 68 % Lymphocytes % (Manual) 24 % Monocytes % (Manual) 5 % Eosinophils % (Manual) 1 % Basophils % (Manual) 1 % Band Neutrophils 1 % Blood Morphology Comment NORMAL Sodium Level 139 135-145 MMOL/L Potassium Level 4.2 3.6-5.0 MMOL/L Chloride Level 99 98-107 MMOL/L Carbon Dioxide Level 29 21-32 MMOL/L Anion Gap 11 5-14 MMOL/L Blood Urea Nitrogen 34 H 7-18 MG/DL Creatinine 0.84 0.60-1.30 MG/DL Estimat Glomerular Filtration Rate > 60 BUN/Creatinine Ratio 40 Glucose Level 214 H 70-105 MG/DL Calcium Level 9.9 8.5-10.1 MG/DL Corrected Calcium 10.1 8.5-10.1 MG/DL Total Bilirubin 0.3 0.1-1.0 MG/DL Aspartate Amino Transf (AST/SGOT) 14 5-34 U/L Alanine Aminotransferase (ALT/SGPT) 19 0-55 U/L Alkaline Phosphatase 114 40-136 U/L Troponin I < 0.30 < 0.30 <0.30 NG/ML Total Protein 8.0 6.4-8.2 GM/DL Albumin 3.7 3.2-4.5 GM/DL My Orders Orders - DEVVENFACUNDO PAULA DO Chest 1 View Ap/Pa Only (05/07/20 09:41) Ekg Tracing (05/07/20 09:41) Cbc With Automated Diff (05/07/20 09:41) Comprehensive Metabolic Panel (05/07/20 09:41) Troponin I Fs (05/07/20 09:41) Albuterol/Ipra Inhalation Soln (Duoneb I (05/07/20 09:45) Methylprednisolone Sod Succ (Solu-Medrol (05/07/20 09:45) Svn Small Volume Nebulizer (05/07/20 09:41) Albuterol/Ipra Inhalation Soln (Duoneb I (05/07/20 09:40) Manual Differential (05/07/20 09:30) Troponin I Fs (05/07/20 11:30) Medications Given in ED Current Medications Medications Dose Ordered Sig/Jose Armando Route Start Time Stop Time Status Last Admin Dose Admin Albuterol/ Ipratropium 3 ml ONCE ONCE INH 05/07/20 09:45 05/07/20 09:46 DC 05/07/20 09:48 3 ML Methylprednisolone Sodium Succinate 80 mg ONCE ONCE IV 05/07/20 09:45 05/07/20 09:46 DC 05/07/20 09:48 80 MG Vital Signs/I&O 05/07/20 05/07/20 09:35 12:20 Temp 34.8 36.2 Pulse 93 82 Resp 18 16 B/P (MAP) 154/67 (96) 138/64 Pulse Ox 97 97 O2 Delivery Room Air O2 Flow Rate 3.00 Capillary Refill : Progress Note : Progress Note Uneventful ER stay, patient no distress and resting comfortably. Normal EKG initial and repeat troponin. Patient to continue current antibiotic and added azithromycin to her current regimen. History of chronic lung disease and apparent infiltrates on previous chest x-rays, see rad report for details today show an increase infiltrate left lower lung as well as resolving infiltrate right lung. These findings present going back several chest x-rays this year ECG Initial ECG Impression Time: 09:55 Initial ECG Rate: 87 Initial ECG Rhythm: Normal Sinus Initial ECG Intervals: Normal Initial ECG Impression: Normal Initial ECG Comparisson: No Previous ECG Available Diagnostic Imaging Plain Films/CT/US/NM/MRI: chest Comments Date of Exam:05/07/20 CHEST 1 VIEW AP/PA ONLY Indication: Chest pain and dyspnea, follow-up pneumonia. Comparison: 05/03/2020. Discussion: Single portable upright view of the chest was obtained. Mild cardiomegaly is stable. No lolly failure. Mild interstitial infiltrates within the right midlung are slightly decreased. Patchy infiltrates within the left mid to lower lung are increased. Findings likely represent underlying pneumonia. No pleural fluid or pneumothorax. No osseous abnormality. Impression: 1. Waxing and waning bilateral pulmonary infiltrates. Dictated on workstation # [id number] Dict: 05/07/2056 Trans: 05/07/2059 [facility] [id number] Interpreted by: RIGOBERTO MAYER MD Electronically signed by: Departure Impression Primary Impression: Pneumonia Qualified Codes: J18.9 - Pneumonia, unspecified organism Additional Impression: Chest pain Qualified Codes: R07.9 - Chest pain, unspecified Disposition: 01 HOME, SELF-CARE Condition: Stable Departure-Patient Inst. Decision time for Depature: 12:02 Referrals: [facility] [place] (PCP) Primary Care Physician TOBY SMALLS APRN (Family) Primary Care Physician Patient Instructions: Pneumonia, Adult (DC), Chest Pain (DC) Add. Discharge Instructions: see your PCP in 1 week for re-evaluation. Return to the ER for any worsening of your symptoms. All discharge instructions reviewed with patient and/or family. Voiced understanding. Scripts Azithromycin (Azithromycin) 250 Mg Tablet 250 MG PO UD, #6 TAB TAKE 2 TABLETS ON DAY ONE THEN TAKE 1 TABLET DAILY FOR FOUR MORE DAYS Prov: FACUNDO CHO DO 05/07/20 FACUNDO CHO DO May 07, 2020 09:40
[2020-05-07] MEDS ORDERED: RT-ALBUTEROL/IPRATROPIUM 3 ML (DUONEB) VIAL INH ONE (09:45)
[2020-05-07] MEDS ORDERED: methylPREDNISolone 40 MG/ML (Solu-MEDROL) VIAL IV ONE (09:45)
[2020-05-07 09:55] LABS: HEMOGLOBIN 12.3 G/DL (11.5-16.0); MEAN CORPUSCULAR HEMOGLOBIN 25 PG (25-34)
[2020-05-07 09:56] LABS: BASOPHILS # (AUTO) 0.1 10^3/uL (0.0-0.1); BASOPHILS % (AUTO) 1 % (0-10); EOSINOPHILS # (AUTO) 0.1 10^3/uL (0.0-0.3); EOSINOPHILS % (AUTO) 1 % (0-10); HEMATOCRIT 40 % (35-52); LYMPHOCYTES # (AUTO) 3.1 X 10^3 (1.0-4.0); LYMPHOCYTES % (AUTO) 21 % (12-44); MEAN CORPUSCULAR HGB CONC 31 G/DL (32-36); MEAN CORPUSCULAR VOLUME 82 FL (80-99); MEAN PLATELET VOLUME 12.3 FL (7.4-10.4); MONOCYTES # (AUTO) 1.1 X 10^3 (0.0-1.0); MONOCYTES % (AUTO) 7 % (0-12); NEUTROPHILS # (AUTO) 10.5 X 10^3 (1.8-7.8); NEUTROPHILS % (AUTO) 70 % (42-75); PLATELET COUNT 288 10^3/uL (130-400)
--- NOTE | 2020-05-07 10:00 | Diagnostic Imaging Report ---
Indication: Chest pain and dyspnea, follow-up pneumonia. Comparison: 05/03/2020. Discussion: Single portable upright view of the chest was obtained. Mild cardiomegaly is stable. No lolly failure. Mild interstitial infiltrates within the right midlung are slightly decreased. Patchy infiltrates within the left mid to lower lung are increased. Findings likely represent underlying pneumonia. No pleural fluid or pneumothorax. No osseous abnormality. Impression: 1. Waxing and waning bilateral pulmonary infiltrates. Dictated by: Dictated on workstation # [id number]
[2020-05-07 10:08] LABS: POTASSIUM 4.2 MMOL/L (3.6-5.0); SODIUM 139 MMOL/L (135-145)
[2020-05-07 10:09] LABS: ALANINE AMINOTRANSFERASE 19 U/L (0-55); ALBUMIN 3.7 GM/DL (3.2-4.5); ALKALINE PHOSPHATASE 114 U/L (40-136); BILIRUBIN,TOTAL 0.3 MG/DL (0.1-1.0); BUN/CREATININE RATIO 40; CALCIUM 9.9 MG/DL (8.5-10.1); CARBON DIOXIDE 29 MMOL/L (21-32); CHLORIDE 99 MMOL/L (98-107); CREATININE SERUM 0.84 MG/DL (0.60-1.30); GFR ESTIMATED > 60; GLUCOSE 214 MG/DL (70-105)
[2020-05-07 10:10] LABS: BAND NEUTROPHILS 1 %; BASOPHILS % (MANUAL) 1 %; EOSINOPHILS % (MANUAL) 1 %; LYMPHOCYTES % (MANUAL) 24 %; MONOCYTES % (MANUAL) 5 %; NEUTROPHILS % (MANUAL) 68 %; RBC MORPH NORMAL
[2020-05-07] MEDS ORDERED: AZIT250T12 PO (10:16)
[2020-05-07 12:20] VITALS: BP 138/64
== END 2020-05-07 12:15 | disposition home or self-care (01) ==
LOC: EDUNIT# 09:19 → ER FS 09:23
DX: J18.9 Pneumonia, unspecified organism (principal); F17.210 Nicotine dependence, cigarettes, uncomplicated; J44.9 Chronic obstructive pulmonary disease, unspecified; I48.91 Unspecified atrial fibrillation; I25.10 Atherosclerotic heart disease of native coronary artery without angina pectoris; I10 Essential (primary) hypertension; E11.40 Type 2 diabetes mellitus with diabetic neuropathy, unspecified; E78.00 Pure hypercholesterolemia, unspecified; K21.9 Gastro-esophageal reflux disease without esophagitis; F41.9 Anxiety disorder, unspecified; F32.9 Major depressive disorder, single episode, unspecified; Z80.8 Family history of malignant neoplasm of other organs or systems; Z88.2 Allergy status to sulfonamides; Z88.1 Allergy status to other antibiotic agents; Z88.7 Allergy status to serum and vaccine; Z88.6 Allergy status to analgesic agent; Z88.8 Allergy status to other drugs, medicaments and biological substances; Z79.01 Long term (current) use of anticoagulants; Z79.51 Long term (current) use of inhaled steroids; Z79.4 Long term (current) use of insulin; Z82.49 Family history of ischemic heart disease and other diseases of the circulatory system
CPT/HCPCS: 36415; 71045; 80053; 84484; 85007; 85027

== ENCOUNTER 2020-05-12 19:27 | Emergency (ER) | payer MEDICARE, MEDICAID ==
[~2020-05-12] VITALS: Ht 175.3 cm; Wt 126.1 kg
[~2020-05-12 19:27] MED LIST changes: +AZIT250T12 PO
--- NOTE | 2020-05-12 19:30 | NUR ---
PT GIVEN SANDWICH PER PROVIDER.
--- NOTE | 2020-05-12 19:32 | ED General ---
General Chief Complaint: Glucose Problems Stated Complaint: LOW BLOOD SUGAR Source of Information: Patient Exam Limitations: No Limitations History of Present Illness Date Seen by Provider: May 12, 2020 Time Seen by Provider: 19:30 Initial Comments 54-year-old female brought in by EMS due to low blood sugar. Patient is a diabetic and has been on diabetic medication for about 25 years. Patient's blood sugar had dropped into the 50s. She called EMS. They gave her glucagon. Now up in the 100s. Patient's last time she ate was around 2 PM. Patient fell little bit mild dizziness but is feeling much better now. Patient denies any adjustments in her insulin. Patient denies any fevers chills recent illness. She does have a little burning with her urine. Allergies and Home Medications Allergies Coded Allergies: sulfamethoxazole (Verified Allergy, Severe, JOINTS HURT, 12/21/18) trimethoprim (Verified Allergy, Severe, JOINTS HURT, 12/21/18) influenza virus vaccine, specific (Unverified Allergy, Intermediate, rash, 09/23/18) aspirin (Unverified Allergy, Unknown, convulsions, 09/23/18) metformin (Verified Adverse Reaction, Intermediate, joint pain, 09/23/18) hydromorphone HCl (Unverified Adverse Reaction, Mild, VOMITING, 01/06/11) Home Medications Albuterol Sulfate 1 Puff Puff, 2 PUFF IH QID PRN for SHORTNESS OF BREATH, (Reported) Amitriptyline HCl 75 Mg Tablet, 75 MG PO HS, (Reported) Apixaban 5 Mg Tablet, 5 MG PO BID, (Reported) Azithromycin 250 Mg Tablet, 250 MG PO UD TAKE 2 TABLETS ON DAY ONE THEN TAKE 1 TABLET DAILY FOR FOUR MORE DAYS Prescribed by: FACUNDO CHO on 05/07/20 1016 Cefdinir 300 Mg Capsule, 300 MG PO BID Prescribed by: DEANDRE CUEVAS on 10/14/19 1052 Cyclobenzaprine HCl 10 Mg Tablet, 10 MG PO TID, (Reported) Dapagliflozin Propanediol 10 Mg Tablet, 10 MG PO DAILY, (Reported) Dulaglutide 0.75 Mg/0.5 Ml Pen.injctr, 0.75 MG SC Tu, (Reported) Fluticasone Propionate 16 Gm [place].susp, 2 SPRAYS NS DAILY PRN for CONGESTION, (Reported) Fluticasone/Salmeterol 12 Gm Hfa.aer.ad, 0 PUFF IH BID@ Prescribed by: DARRELL URBINA on 09/11/19 1116 Furosemide 40 Mg Tablet, 40 MG PO DAILY, (Reported) Glucagon,Human Recombinant 1 Mg/Kit Soln, SC UD PRN for HYPOGLYCEMIA, (Reported) Hydroxyzine HCl 50 Mg Tablet, 50 MG PO BID PRN for ANXIETY, (Reported) Insulin Aspart 300 Units/3 Ml Solution, 50 UNITS SQ TIDAC, (Reported) Insulin Detemir 100 Unit/1 Ml Insuln.pen, 80 UNIT SQ BID, (Reported) Losartan Potassium 25 Mg Tablet, 25 MG PO DAILY, (Reported) Melatonin 10 Mg Tablet, 10 MG PO HS PRN for SLEEP, (Reported) Meloxicam 15 Mg Tablet, 15 MG PO DAILY, (Reported) Grahn 3 Polyunsat Fatty Acids 1,000 Mg Cap, 1,000 MG PO HS, (Reported) Omeprazole 40 Mg Capsule.dr, 40 MG PO DAILY, (Reported) Oxybutynin Chloride 5 Mg Tab.er.24, 5 MG PO DAILY, (Reported) Potassium Chloride 20 Meq Tab.er.prt, 20 MEQ PO DAILY, (Reported) Pregabalin 150 Mg Capsule, 150 MG PO TID, (Reported) Rosuvastatin Calcium 40 Mg Tablet, 40 MG PO DAILY, (Reported) Sennosides/Docusate Sodium 1 Each Tablet, 1 EACH PO BID Prescribed by: DARRELL URBINA on 09/11/19 111 Sitagliptin Phosphate 100 Mg Tablet, 100 MG PO DAILY, (Reported) Sumatriptan Succinate 50 Mg Tablet, 50 MG PO UD PRN for MIGRAINE, (Reported) TAKE 1 TAB AT ONSET OF MIGRAINE, IF SYMPTOMS PERSIST AFTER 2 HOURS TAKE AN ADDITIONAL TABLET Umeclidinium [place] 62.5 Mcg Blst.w.dev, 1 PUFF IN DAILY, (Reported) Patient Home Medication List Home Medication List Reviewed: Yes Review of Systems Review of Systems Constitutional: dizziness EENTM: no symptoms reported Respiratory: no symptoms reported Cardiovascular: no symptoms reported Gastrointestinal: no symptoms reported Genitourinary: dysuria Musculoskeletal: no symptoms reported Skin: no symptoms reported Past Zaclryf-Qwtows-Iammcj Hx Past Med/Social Hx: Reviewed Nursing Past Med/Soc Hx Patient Social History Type Used: Cigarettes 2nd Hand Smoke Exposure: Yes Recent Hopitalizations: No Immunizations Up To Date Tetanus Booster (TDap): Unknown PED Vaccines UTD: No Date of Pneumonia Vaccine: May 12, 2012 Seasonal Allergies Seasonal Allergies: No Past Medical History Surgeries: Yes Appendectomy, Gallbladder, Hysterectomy Respiratory: Yes COPD Currently Using CPAP: No Currently Using BIPAP: No Cardiac: Yes Atrial Fibrillation, Cardiomyopathy, Chronic Edema/Swelling, Coronary Artery Disease, High Cholesterol, Hypertension Neurological: Yes Neuropathy Reproductive Disorders: No (partial hysterectomy of R side. ) Female Reproductive Disorders: Denies Sexually Transmitted Disease: No HIV/AIDS: No Genitourinary: Yes Kidney Infection, UTI-Chronic Gastrointestinal: Yes Gastroesophageal Reflux, Pancreatitis, Chronic Diarrhea Musculoskeletal: Yes Arthritis Endocrine: Yes Diabetes, Insulin dep HEENT: Yes Tinnitis Loss of Vision: Bilateral Hearing Impairment: Denies Cancer: No Psychosocial: Yes Anxiety, Depression Integumentary: No Blood Disorders: No Adverse Reaction/Blood Tranf: No Family Medical History Alcoholism G8 BROTHER Alzheimer's disease 19 MOTHER Arthritis 19 FATHER 19 MOTHER G8 BROTHER G8 BROTHER G8 BROTHER G8 BROTHER G8 BROTHER G8 SISTER G8 SISTER G8 SISTER G8 SISTER G8 SISTER G8 SISTER Asthma 19 FATHER 19 MOTHER G8 SISTER G8 SISTER Cancer of mouth Cardiovascular disease 19 FATHER 19 MOTHER G8 BROTHER G8 BROTHER G8 SISTER G8 SISTER Completed stroke 19 FATHER G8 SISTER G8 SISTER Dementia G8 BROTHER Diabetes mellitus 19 FATHER 19 MOTHER G8 BROTHER G8 BROTHER G8 BROTHER G8 BROTHER G8 BROTHER G8 SISTER G8 SISTER G8 SISTER G8 SISTER G8 SISTER G8 SISTER Glaucoma 19 MOTHER G8 SISTER G8 SISTER Hypercholesterolemia 19 FATHER 19 MOTHER Hypertension 19 FATHER 19 MOTHER G8 BROTHER G8 BROTHER G8 BROTHER G8 BROTHER G8 BROTHER G8 SISTER G8 SISTER G8 SISTER G8 SISTER G8 SISTER G8 SISTER Myocardial infarction 19 FATHER 19 MOTHER G8 BROTHER G8 BROTHER G8 SISTER G8 SISTER G8 SISTER Osteoporosis G8 SISTER Seizure disorder G8 BROTHER No Family History of: AIDS Abdominal aortic aneurysm Marvel's disease Aphasia Cataracts Colon cancer Congenital disease Congenital heart disease Coronary thrombosis Cystic fibrosis Deafness or hearing loss Drug abuse Dysphasia Fibrocystic disease of breast Gastroenteritis Headache disorder Infertility Kidney disease Neoplasm Parkinson's disease Prostate cancer Psychosocial problem Severe allergy Thyroid disease Tuberculosis Visual disorder Cancer Physical Exam Vital Signs Vital Signs - First Documented 05/12/20 19:28 Temp 36.3 Pulse 92 Resp 18 B/P (MAP) 16/65 (49) Pulse Ox 95 O2 Delivery Nasal Cannula O2 Flow Rate 3.00 Capillary Refill : Height, Weight, BMI Height: 5'9.00" Weight: 253lbs. 1.0oz. 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 Norm as Tested Procedures/Interventions Date of ETT Placement: Oct 21, 2019 Time of ETT Placement: 1040 Suture Size: 4-0 Progress/Results/Core Measures Suspected Sepsis SIRS Temperature: Pulse: Respiratory Rate: Laboratory Tests 05/12/20 19:43: White Blood Count 22.9H Blood Pressure / Mean: Laboratory Tests 05/12/20 19:43: Creatinine 1.23, Platelet Count 324, Total Bilirubin 0.2 Results/Orders Lab Results Laboratory Tests Test 05/12/20 19:36 05/12/20 19:43 05/12/20 20:11 Range/Units Glucometer 211 H 70-110 MG/DL White Blood Count 22.9 H 4.3-11.0 10^3/uL Red Blood Count 5.38 4.35-5.85 10^6/uL Hemoglobin 13.6 11.5-16.0 G/DL Hematocrit 44 35-52 % Mean Corpuscular Volume 81 80-99 FL Mean Corpuscular Hemoglobin 25 25-34 PG Mean Corpuscular Hemoglobin Concent 31 L 32-36 G/DL Red Cell Distribution Width 18.1 H 10.0-14.5 % Platelet Count 324 130-400 10^3/uL Mean Platelet Volume 12.0 H 7.4-10.4 FL Immature Granulocyte % (Auto) 0 % Neutrophils (%) (Auto) 78 H 42-75 % Lymphocytes (%) (Auto) 13 12-44 % Monocytes (%) (Auto) 6 0-12 % Eosinophils (%) (Auto) 2 0-10 % Basophils (%) (Auto) 1 0-10 % Neutrophils # (Auto) 17.9 H 1.8-7.8 X 10^3 Lymphocytes # (Auto) 3.0 1.0-4.0 X 10^3 Monocytes # (Auto) 1.5 H 0.0-1.0 X 10^3 Eosinophils # (Auto) 0.4 H 0.0-0.3 10^3/uL Basophils # (Auto) 0.1 0.0-0.1 10^3/uL Immature Granulocyte # (Auto) 0.1 0.0-0.1 10^3/uL Sodium Level 137 135-145 MMOL/L Potassium Level 4.4 3.6-5.0 MMOL/L Chloride Level 95 L 98-107 MMOL/L Carbon Dioxide Level 27 21-32 MMOL/L Anion Gap 15 H 5-14 MMOL/L Blood Urea Nitrogen 45 H 7-18 MG/DL Creatinine 1.23 0.60-1.30 MG/DL Estimat Glomerular Filtration Rate 45 BUN/Creatinine Ratio 37 Glucose Level 142 H 70-105 MG/DL Calcium Level 9.5 8.5-10.1 MG/DL Corrected Calcium 9.6 8.5-10.1 MG/DL Total Bilirubin 0.2 0.1-1.0 MG/DL Aspartate Amino Transf (AST/SGOT) 21 5-34 U/L Alanine Aminotransferase (ALT/SGPT) 26 0-55 U/L Alkaline Phosphatase 108 40-136 U/L Total Protein 8.2 6.4-8.2 GM/DL Albumin 3.9 3.2-4.5 GM/DL Urine Color YELLOW Urine Clarity CLOUDY Urine pH 5.5 5-9 Urine Specific [place] 1.020 1.016-1.022 Urine Protein NEGATIVE NEGATIVE Urine Glucose (UA) 2+ H NEGATIVE Urine Ketones NEGATIVE NEGATIVE Urine Nitrite POSITIVE H NEGATIVE Urine Bilirubin NEGATIVE NEGATIVE Urine Urobilinogen 0.2 < = 1.0 MG/DL Urine Leukocyte Esterase 2+ H NEGATIVE Urine RBC (Auto) 3+ H NEGATIVE Urine RBC NONE /HPF Urine WBC TNTC H /HPF Urine Crystals NONE /LPF Urine Bacteria LARGE H /HPF Urine Casts NONE /LPF Urine Mucus NEGATIVE /LPF Urine Culture Indicated YES My Orders Orders - STAFFORD,LISA L DO Cbc With Automated Diff (05/12/20 19:32) Comprehensive Metabolic Panel (05/12/20 19:32) Ua Culture If Indicated (05/12/20 19:32) Accucheck Stat ONCE (05/12/20 19:32) Diet Order UD (05/12/20 19:32) Manual Differential (05/12/20 19:43) Urine Culture (05/12/20 20:11) Ceftriaxone For Im Use (Rocephin For Im (05/12/20 20:30) Lidocaine 1% Inj 20 Ml (Xylocaine 1% Inj (05/12/20 20:30) Vital Signs/I&O 05/12/20 19:28 Temp 36.3 Pulse 92 Resp 18 B/P (MAP) 1665 (49) Pulse Ox 95 O2 Delivery Nasal Cannula O2 Flow Rate 3.00 Capillary Refill : Departure Impression Primary Impression: Hypoglycemia associated with diabetes Additional Impression: Acute cystitis Qualified Codes: N30.01 - Acute cystitis with hematuria Disposition: HOME, SELF-CARE Condition: Stable Departure-Patient Inst. Referrals: [facility] (PCP) Primary Care Physician TOBY SMALLS APRN (Family) Primary Care Physician Patient Instructions: HYPOGLYCEMIA, Urinary Tract Infections in Adults Add. Discharge Instructions: Follow-up with your primary care provider in 3-4 days a recheck today symptoms Return to the ER as needed All discharge instructions reviewed with patient and/or family. Voiced unde rstanding. Scripts Cephalexin (Cephalexin) 500 Mg Tablet 500 MG PO QID, #20 TAB 0 Refills Prov: LISA STAFFORD DO 05/12/20 LISA STAFFORD DO May 12, 2020 19:32
--- NOTE | 2020-05-12 19:37 | NUR ---
Patient was given a sandwich to eat to keep her blood sugar up.
[2020-05-12 19:52] LABS: BASOPHILS % (AUTO) 1 % (0-10); EOSINOPHILS % (AUTO) 2 % (0-10); HEMATOCRIT 44 % (35-52); HEMOGLOBIN 13.6 G/DL (11.5-16.0); LYMPHOCYTES % (AUTO) 13 % (12-44); MEAN CORPUSCULAR HEMOGLOBIN 25 PG (25-34); MEAN CORPUSCULAR HGB CONC 31 G/DL (32-36); MEAN CORPUSCULAR VOLUME 81 FL (80-99); MONOCYTES % (AUTO) 6 % (0-12); NEUTROPHILS % (AUTO) 78 % (42-75); PLATELET COUNT 324 10^3/uL (130-400); WHITE BLOOD COUNT 22.9 10^3/uL (4.3-11.0)
[2020-05-12 19:53] LABS: BASOPHILS # (AUTO) 0.1 10^3/uL (0.0-0.1); EOSINOPHILS # (AUTO) 0.4 10^3/uL (0.0-0.3); MONOCYTES # (AUTO) 1.5 X 10^3 (0.0-1.0); NEUTROPHILS # (AUTO) 17.9 X 10^3 (1.8-7.8)
[2020-05-12 20:11] LABS: ALBUMIN 3.9 GM/DL (3.2-4.5); BILIRUBIN,TOTAL 0.2 MG/DL (0.1-1.0); CALCIUM 9.5 MG/DL (8.5-10.1); CREATININE SERUM 1.23 MG/DL (0.60-1.30); POTASSIUM 4.4 MMOL/L (3.6-5.0); TOTAL PROTEIN 8.2 GM/DL (6.4-8.2)
[2020-05-12 20:17] LABS: CLARITY,URINE CLOUDY; COLOR,URINE YELLOW
[2020-05-12 20:21] LABS: BACTERIA,URINE LARGE /HPF; BILIRUBIN,URINE NEGATIVE (NEGATIVE); GLUCOSE, URINE (UA) 2+ (NEGATIVE); KETONES,URINE NEGATIVE (NEGATIVE); LEUKOCYTE ESTERASE ,URINE 2+ (NEGATIVE); NITRITE,URINE POSITIVE (NEGATIVE); PH,URINE 5.5 (5-9); PROTEIN,URINE NEGATIVE (NEGATIVE); WBC,URINE TNTC /HPF
[2020-05-12 20:26] LABS: EOSINOPHILS % (MANUAL) 1 %; LYMPHOCYTES % (MANUAL) 12 %; MONOCYTES % (MANUAL) 3 %; NEUTROPHILS % (MANUAL) 84 %; TOXIC GRANULATION/VACUOLAZATIO 4+
[2020-05-12 20:27] LABS: PLATELET ESTIMATE LARGE PLATELETS
[2020-05-12] MEDS ORDERED: CEPH500T PO (20:29)
[2020-05-12] MEDS ORDERED: cefTRIAXone 1,000 MG/2.86 ml vial (IM ONLY) IM ONE (20:30)
[2020-05-12] MEDS ORDERED: LIDOCAINE 1% INJ 20 ML 20 ML VIAL INJ ONE (20:30)
[2020-05-12 20:41] VITALS: BP 138/88
== END 2020-05-12 20:41 | disposition home or self-care (01) ==
LOC: EDUNIT# 19:27 → ER FS 19:28
DX: E11.649 Type 2 diabetes mellitus with hypoglycemia without coma (principal); N30.00 Acute cystitis without hematuria; F41.9 Anxiety disorder, unspecified; F32.9 Major depressive disorder, single episode, unspecified; E78.00 Pure hypercholesterolemia, unspecified; I10 Essential (primary) hypertension; J44.9 Chronic obstructive pulmonary disease, unspecified; K21.9 Gastro-esophageal reflux disease without esophagitis; Z79.4 Long term (current) use of insulin; Z82.49 Family history of ischemic heart disease and other diseases of the circulatory system; Z83.3 Family history of diabetes mellitus; Z82.61 Family history of arthritis; Z80.8 Family history of malignant neoplasm of other organs or systems; Z77.22 Contact with and (suspected) exposure to environmental tobacco smoke (acute) (chronic); Z88.2 Allergy status to sulfonamides; Z88.1 Allergy status to other antibiotic agents; Z88.7 Allergy status to serum and vaccine; Z88.5 Allergy status to narcotic agent; Z88.8 Allergy status to other drugs, medicaments and biological substances; Z79.01 Long term (current) use of anticoagulants
CPT/HCPCS: 36415; 80053; 81000; 82962; 85007; 85027; 87077; 87088; 87186

== ENCOUNTER → 2020-05-26 | Outpatient (CLI) | payer MEDICARE, MEDICAID ==
[~2020-05-26] MED LIST changes: +CEPH500T PO
--- NOTE | 2020-05-26 11:22 | Diagnostic Imaging Report ---
PA and lateral chest at 10:59. Indication: Shortness of breath. The cardiomegaly noted on the prior exam of 05/07/2020 is again evident and not significantly changed. The interstitial infiltrate in the right midlung seen previously is somewhat more conspicuous on this exam. The atelectasis/infiltrate in the left lung base noted on prior study is essentially no different. However the central pulmonary vasculature does seem more prominent than on the prior study and I suspect that there is now an element of pulmonary congestion present. There is no pleural effusion identified. The mediastinum is not widened. The osseous structures are intact. Impression: The appearance of the chest has worsened since the prior study as pulmonary congestion has developed. There continues to be involvement of the right mid lung and left lung base by atelectasis/infiltrate as well. A followup study would be recommended for continued evaluation. Dictated by: Dictated on workstation # [id number]
== END ==
LOC: RAD FS 10:21
PROVIDERS: ATTEND Nurse Practitioner
DX: R06.02 Shortness of breath (principal); R09.89 Other specified symptoms and signs involving the circulatory and respiratory systems; R91.8 Other nonspecific abnormal finding of lung field
CPT/HCPCS: 71046